=== PATIENT | female | born 1945 | race Caucasian/White ===

== ENCOUNTER → 2016-08-13 | Outpatient (CLI) | payer OTHER ==
[~2016-08-13] MED LIST: ALBUAER2 INH; APR25 PO; ASPI81TA28 PO; ATOR-22 PO; B-CO1CAP17 PO; B-COCAP20 PO; CALC667C4 PO; CARV25TA2 PO; CHOL1CAP95 PO; CITA40TA12 PO; CRG125 PO; CRG25 PO; FERR1TAB23 PO; GABA-112 PO; INSU3INJ3 SC; LACT10SO61 PO; LCTX PO; LEVO100T7 PO; LVMIPEN SC; MAGN1CAP2 PO; MELA1TAB49 PO; MTR400 PO; NTRSLP4 SL; PANT40TA PO; PHS667 PO; PLN5 PO; PRT40 PO; SYN100 PO
[2016-08-13 13:33] LABS: MEAN CELL VOLUME 99.5 fL (80-100); MEAN CORPUSCULAR HGB CONC 32.2 g/dl (32-36); MEAN PLATELET VOLUME 10.1 fL (7.4-10.4); PLATELET COUNT 189 K/uL (130-400); RED BLOOD COUNT 3.72 M/uL (4.2-5.4); WHITE BLOOD COUNT 8.08 K/uL (4.8-10.8)
[2016-08-13 13:52] LABS: BLOOD UREA NITROGEN 17 mg/dl (7-18); BUN/CREATININE RATIO 7.7 (10-20); CALCIUM 7.9 mg/dl (8.5-10.1); CARBON DIOXIDE 36 mmol/L (21-32); CHLORIDE 96 mmol/L (98-107); GLUCOSE 129 mg/dl (70-99); POTASSIUM 3.3 mmol/L (3.5-5.1); SODIUM 138 mmol/L (136-145)
[2016-08-13 14:04] LABS: ALB/GLOB RATIO 0.8 (0.9-2); ALKALINE PHOSPHATASE 77 U/L (45-117); ALT/SGPT 14 U/L (12-78); AST/SGOT 14 U/L (15-37); CHOLESTEROL 120 mg/dl (0-200); CHOLESTEROL/HDL RATIO 2.9; HDL CHOLESTEROL 42 mg/dl; LDL CHOLESTEROL CALCULATED 18 mg/dl; TRIGLYCERIDES 301 mg/dl (0-150); VERY LOW DENSITY LIPOPROT CALC 60 mg/dl
[2016-08-13 14:17] LABS: ESTIMATED AVERAGE GLUCOSE 134 mg/dl; HA1C FLAG Normal (Normal)
== END | disposition home or self-care (01) ==
LOC: C.LABPVFM 10:23
PROVIDERS: ATTEND Family Medicine
DX: E11.9 Type 2 diabetes mellitus without complications (principal); I10 Essential (primary) hypertension; E03.9 Hypothyroidism, unspecified; E83.42 Hypomagnesemia

== ENCOUNTER 2016-12-03 11:28 | Emergency (ER) | payer OTHER ==
[~2016-12-03] VITALS: Ht 157.5 cm; Wt 98.0 kg
[~2016-12-03 11:28] MED LIST changes: -B-CO1CAP17 PO; -CALC667C4 PO; -CARV25TA2 PO; -CRG125 PO; -GABA-112 PO; -INSU3INJ3 SC; -LACT10SO61 PO; -LEVO100T7 PO; -MTR400 PO; -PANT40TA PO
[2016-12-03 11:29] VITALS: TEMP 36.6; Ht 157.5 cm; Wt 98.0 kg
[2016-12-03] MEDS ORDERED: INSU3INJ3 SC (12:00)
--- NOTE | 2016-12-03 12:29 | DIAGNOSTIC IMAGING REPORT ---
RIGHT KNEE 1 OR 2 VIEWS ROUTINE CLINICAL HISTORY: 71 years-old Female presenting with fall/right knee pain. TECHNIQUE: Frontal and crosstable lateral views of the right knee were obtained. COMPARISON: 11/26/2011. FINDINGS: Subtle degenerative changes of the medial and lateral compartments with minimal osteophytosis. Chondrocalcinosis of the menisci, which has progressed since the prior exam and can be seen in the setting of osteoarthritis or pyrophosphate arthropathy among other etiologies. The patellar compartment does not demonstrate significant degenerative change. Prepatellar skin thickening noted, likely superficial edema. A small knee joint effusion may be present. No acute fracture, malalignment, or radiopaque foreign body. IMPRESSION: 1. No acute osseous injury of the right knee. 2. Subtle degenerative changes as above. Electronically signed by: Omar Anaya 12/03/2016 12:28 PM Dictated Date/Time: 12/03/2016 12:22 PM
--- NOTE | 2016-12-03 12:40 | DIAGNOSTIC IMAGING REPORT ---
MAXILLOFACIAL CT CT DOSE: 783.27 mGy.cm HISTORY: Trauma fall/facial injury TECHNIQUE: Multiaxial CT images of the maxillofacial region were performed and reformatted in the coronal plane without the use of contrast. COMPARISON: None. FINDINGS: The visualized cervical spine, skull base, pterygoid plates, nasal bones, lamina papyracea, orbital floors, mandible, and zygomatic arches are intact. No fractures. The orbits are unremarkable. Mild right orbital soft tissue edema IMPRESSION: No fractures within the maxillofacial region. Mild right periorbital soft tissue edema. Electronically signed by: Eder Moss M.D. 12/03/2016 12:38 PM Dictated Date/Time: 12/03/2016 12:35 PM
--- NOTE | 2016-12-03 12:47 | EMERGENCY ROOM VISIT NOTE ---
History First contact with patient: 11:38 Chief Complaint: FALL Stated Complaint: INJURIES FROM FALL History of Present Illness The patient is a 71 year old female who presents to the Emergency Room with complaints of falling. The patient states that she was finished with her dialysis when her p.m. leg got caught in the wheelchair and she fell forward striking her right knee on the ground. She also states she tried to catch herself with her hands but her glasses hit the floor. They did not break. She has a small cut underneath her right eye. The patient also states that her vision on her right eye is a little fuzzy. She denies any headache or loss of consciousness. The patient denies any dizziness prior to the fall. The patient states she was able to bear weight on her right leg. The patient does admit that she has fallen several times and had landed on both her knees in the past. Review of Systems 10 system review was performed and was negative unless stated otherwise history of present illness. Past Medical/Surgical History Medical Problems: (1) Abdominal pain (2) Anemia (3) ARF (acute renal failure) (4) Arthritis (5) Cellulitis (6) Chest pain (7) Chronic kidney disease (8) COPD (chronic obstructive pulmonary disease) (9) Depression (10) Diabetes mellitus (11) Elevated troponin (12) Elevated troponin I level (13) End stage renal disease (14) Essential hypertension (15) Gastroesophageal reflux disease (16) History of thrombophlebitis (17) Hypothyroidism (18) Kidney disease (19) Nausea and vomiting (20) Obesity (21) Secondary hyperparathyroidism (of renal origin) (22) Streptococcal sepsis Surgical Problems: (1) H/O: hysterectomy Family History Diabetes mellitus Heart disease Hypertension Kidney disease Kidney stones Social History Smoking Status: Never Smoker Alcohol Use: none Marital Status: Housing Status: lives with family Occupation Status: retired Current/Historical Medications Scheduled Aspirin (Aspirin Ec), 81 MG PO QAM Atorvastatin (Lipitor), 20 MG PO HS B-Complex W/ C & Folic Acid (Renal), 1 CAP PO QAM Calcium Acetate (Phoslo 667 Mg), 667 MG PO TIDM Carvedilol (Carvedilol), 25 MG PO BID Citalopram Hydrobromide (Celexa), 40 MG PO HS Felodipine (Felodipine ER), 5 MG PO TID Hydralazine Hcl (Apresoline), 25 MG PO TID Insulin Detemir (Levemir Flextouch), 15 UNITS SC Q12 Levothyroxine Sodium (Synthroid), 100 MCG PO HS Magnesium Oxide (Mg Supplement (Magnesium), 400 MG PO TID Pantoprazole (Pantoprazole Sodium), 40 MG PO QAM Allergies Coded Allergies: Lisinopril (Verified Adverse Reaction, Intermediate, cough, 12/03/16) Physical Exam Vital Signs Date Time Temp Pulse Resp B/P (MAP) Pulse Ox O2 Delivery O2 Flow Rate FiO2 12/03/16 11:29 36.6 65 16 152/81 96 Physical Exam GENERAL: 71-year-old female appears in no acute distress. MENTAL Status: Alert and oriented 3. HEAD: Atraumatic, nontender to palpation throughout. EYES: PERRLA. EOMs intact. FACE: There is a superficial cut underneath her right eye. There is some infraorbital ecchymosis noted bilaterally. Mild tenderness palpation over the right zygomatic arch otherwise face is nontender. NECK: Supple, no lymphadenopathy noted. LUNGS: Clear auscultation without wheezes rales or rhonchi. CARDIAC: Regular rate and rhythm without murmur. Pulses is full and equal throughout. BILATERAL HAND: Nontender to palpation. Full range of motion of all fingers without difficulty. RIGHT KNEE: Large hematoma noted over the patella. Limited range of motion secondary to swelling. No ligament instability noted. Medical Decision & Procedures ER Provider Diagnostic Interpretation: MAXILLOFACIAL CT CT DOSE: 783.27 mGy.cm HISTORY: Trauma fall/facial injury TECHNIQUE: Multiaxial CT images of the maxillofacial region were performed and reformatted in the coronal plane without the use of contrast. COMPARISON: None. FINDINGS: The visualized cervical spine, skull base, pterygoid plates, nasal bones, lamina papyracea, orbital floors, mandible, and zygomatic arches are intact. No fractures. The orbits are unremarkable. Mild right orbital soft tissue edema IMPRESSION: No fractures within the maxillofacial region. Mild right periorbital soft tissue edema. Electronically signed by: Eder Moss M.D. 12/03/2016 12:38 PM RIGHT KNEE 1 OR 2 VIEWS ROUTINE CLINICAL HISTORY: 71 years-old Female presenting with fall/right knee pain. TECHNIQUE: Frontal and crosstable lateral views of the right knee were obtained. COMPARISON: 11/26/2011. FINDINGS: Subtle degenerative changes of the medial and lateral compartments with minimal osteophytosis. Chondrocalcinosis of the menisci, which has progressed since the prior exam and can be seen in the setting of osteoarthritis or pyrophosphate arthropathy among other etiologies. The patellar compartment does not demonstrate significant degenerative change. Prepatellar skin thickening noted, likely superficial edema. A small knee joint effusion may be present. No acute fracture, malalignment, or radiopaque foreign body. IMPRESSION: 1. No acute osseous injury of the right knee. 2. Subtle degenerative changes as above. Electronically signed by: Omar Anaya 12/03/2016 12:28 PM ED Course The patient was evaluated. The patient was offered pain medication but declined. X-ray of the right knee was ordered and interpreted by the radiologist as above without any acute fractures. CT of the facial bones was ordered interpreted by the radiologist as above without any acute fractures. The patient was informed of all findings. An Brandon wrap was placed on the right knee. The patient was independently evaluated by Dr. Pablo who agreed with treatment plan. The patient was discharged home in stable condition. Medical Decision Differential diagnosis include fractures versus contusions. Impression Primary Impression: Facial contusion Additional Impression: Contusion of knee, right Departure Information Dispostion Home / Self-Care Condition GOOD Referrals Pro,Julito Grijalva M.D. (PCP) Forms HOME CARE DOCUMENTATION FORM, IMPORTANT VISIT INFORMATION Patient Instructions [facility] Additional Instructions Ice intermittently to the affected areas over the next 24 hours. Keep knee elevated whenever possible over the next 24-48 hours. Wear Brandon wrap except for bathing for the next 72 hours. Tylenol as needed for pain. If symptoms are not improving in 2-3 days, follow-up with your family doctor. If symptoms worsen in the interim, return to ER. Problem Qualifiers Primary Impression: Facial contusion Encounter type: initial encounter Qualified Codes: S00.83XA - Contusion of other part of head, initial encounter
--- NOTE | 2016-12-03 12:57 | EMERGENCY ROOM VISIT NOTE ---
ED Visit Note First contact with patient: 11:38 I have seen and examined this patient with Ele Moss and generally agree with the treatment plan as discussed. Problem List Medical Problems: (1) ARF (acute renal failure) Status: Resolved (2) Arthritis Status: Chronic (3) Chronic kidney disease Status: Chronic (4) COPD (chronic obstructive pulmonary disease) Status: Chronic (5) Depression Status: Chronic (6) Diabetes mellitus Status: Chronic (7) Essential hypertension Status: Chronic (8) Gastroesophageal reflux disease Status: Chronic (9) History of thrombophlebitis Status: Resolved (10) Hypothyroidism Status: Chronic (11) Kidney disease Status: Chronic Surgical Problems: (1) H/O: hysterectomy Status: Resolved Current/Historical Medications Scheduled Aspirin (Aspirin Ec), 81 MG PO QAM Atorvastatin (Lipitor), 20 MG PO HS B-Complex W/ C & Folic Acid (Renal), 1 CAP PO QAM Calcium Acetate (Phoslo 667 Mg), 667 MG PO TIDM Carvedilol (Carvedilol), 25 MG PO BID Citalopram Hydrobromide (Celexa), 40 MG PO HS Felodipine (Felodipine ER), 5 MG PO TID Hydralazine Hcl (Apresoline), 25 MG PO TID Insulin Detemir (Levemir Flextouch), 15 UNITS SC Q12 Levothyroxine Sodium (Synthroid), 100 MCG PO HS Magnesium Oxide (Mg Supplement (Magnesium), 400 MG PO TID Pantoprazole (Pantoprazole Sodium), 40 MG PO QAM Allergies Coded Allergies: Lisinopril (Verified Adverse Reaction, Intermediate, cough, 12/03/16) Vital Signs Date Time Temp Pulse Resp B/P (MAP) Pulse Ox O2 Delivery O2 Flow Rate FiO2 12/03/16 11:29 36.6 65 16 152/81 96 Departure Information Impression Primary Impression: Facial contusion Additional Impression: Contusion of knee, right Dispostion Home / Self-Care Condition GOOD Referrals Pro,Julito Grijalva M.D. (PCP) Forms HOME CARE DOCUMENTATION FORM, IMPORTANT VISIT INFORMATION Patient Instructions My [facility] Additional Instructions Ice intermittently to the affected areas over the next 24 hours. Keep knee elevated whenever possible over the next 24-48 hours. Wear Brandon wrap except for bathing for the next 72 hours. Tylenol as needed for pain. If symptoms are not improving in 2-3 days, follow-up with your family doctor. If symptoms worsen in the interim, return to ER. Problem Qualifiers
[2016-12-03 13:02] VITALS: BP 148/86; PULSE 84; O2SAT 98
[2017-02-05] MEDS ORDERED: CALC667C4 PO (09:22)
[2017-02-05] MEDS ORDERED: B-CO1CAP17 PO (09:22)
[2017-02-05] MEDS ORDERED: CARV25TA2 PO (09:22)
[2017-02-05] MEDS ORDERED: PANT40TA PO (09:22)
[2017-02-05] MEDS ORDERED: GABA-112 PO (09:24)
[2017-02-05] MEDS ORDERED: LACT10SO61 PO (09:24)
[2017-03-01] MEDS ORDERED: PRT40 PO (12:59)
[2017-03-01] MEDS ORDERED: CRG125 PO (12:59)
[2017-03-01] MEDS ORDERED: MTR400 PO (12:59)
== END 2016-12-03 13:03 | disposition home or self-care (01) ==
LOC: C.EDB 11:29 → C.EDD 13:03
DX: S80.01XA Contusion of right knee, initial encounter (principal); S00.83XA Contusion of other part of head, initial encounter; W19.XXXA Unspecified fall, initial encounter; E11.9 Type 2 diabetes mellitus without complications; I12.0 Hypertensive chronic kidney disease with stage 5 chronic kidney disease or end stage renal disease; N18.6 End stage renal disease; K21.9 Gastro-esophageal reflux disease without esophagitis; E03.9 Hypothyroidism, unspecified; J44.9 Chronic obstructive pulmonary disease, unspecified; F32.9 Major depressive disorder, single episode, unspecified; M19.90 Unspecified osteoarthritis, unspecified site; Z86.19 Personal history of other infectious and parasitic diseases; Z90.710 Acquired absence of both cervix and uterus; Z79.82 Long term (current) use of aspirin; Z79.4 Long term (current) use of insulin; Z79.899 Other long term (current) drug therapy; Z88.8 Allergy status to other drugs, medicaments and biological substances; Z83.3 Family history of diabetes mellitus; Z82.49 Family history of ischemic heart disease and other diseases of the circulatory system; Z84.1 Family history of disorders of kidney and ureter

== ENCOUNTER → 2017-01-25 | Outpatient (CLI) | payer OTHER ==
[~2017-01-25] MED LIST changes: -ALBUAER2 INH; +B-CO1CAP17 PO; +CALC667C4 PO; +CARV25TA2 PO; +CEFD1CAP14 PO; -CHOL1CAP95 PO; +CRG125 PO; -FERR1TAB23 PO; +GABA-112 PO; +INSU3INJ3 SC; +LACT10SO61 PO; -LCTX PO; +LEVO100T7 PO; -LVMIPEN SC; -MELA1TAB49 PO; +MTR400 PO; -NTRSLP4 SL; +OXGN; +PANT40TA PO
--- NOTE | 2017-01-25 18:03 | DIAGNOSTIC IMAGING REPORT ---
FACIAL BONES MIN 3 VIEWS RTN CLINICAL HISTORY: Fall with facial injury COMPARISON STUDY: Facial bone CT December 03, 2016. FINDINGS: No facial bone fracture is identified by radiography. Sinuses appear grossly clear. No calvarial fracture is identified on this exam. IMPRESSION: No facial fracture identified by radiography. Electronically signed by: Cyrus Serna M.D. 01/25/2017 6:02 PM Dictated Date/Time: 01/25/2017 5:59 PM
== END | disposition home or self-care (01) ==
LOC: C.RAD1850 16:37
PROVIDERS: ATTEND Nurse Practitioner Adult Health
DX: S09.93XA Unspecified injury of face, initial encounter (principal); W19.XXXA Unspecified fall, initial encounter

== ENCOUNTER → 2017-02-02 | Outpatient (CLI) | payer OTHER ==
[~2017-02-02] MED LIST changes: +OXYMETAZOLINE HCL 0.05% NA SPR 15 ML BTL ONE
--- NOTE | 2017-02-02 16:52 | DIAGNOSTIC IMAGING REPORT ---
SINUSES-MAXILLOFACIAL W/O HISTORY: 71 years-old Female S09.93XA Facial [id number] Fall acute facial injury status post fall. COMPARISON: Maxillofacial CT 12/03/2016 TECHNIQUE: Multiple axial CT images of the maxillofacial bones and sinuses were obtained without IV contrast. A dose lowering technique was used consistent with the principals of PILAR. FINDINGS: The zygomatic arches, pterygoid plates, maxillary alford, nasal bone, septum and vomer and orbital alford are intact. There is mild rightward bowing of the nasal septum. Moderate left and severe right temporomandibular degenerative changes are present. The imaged mandible appears intact. There is mild ethmoid mucosal thickening. The remaining paranasal sinuses are generally clear. Bilateral sphenoethmoidal, and frontal ethmoidal recesses are patent. Bilateral maxillary ostiomeatal units are patent. The mastoid air cells and middle ear cavities are clear. The imaged intracranial structures demonstrate no acute upper malady. There is mild atrophy. Facial soft tissues are unremarkable. There is evidence of prior bilateral cataract repair. No significant soft tissue swelling or hematoma identified. IMPRESSION: 1. No acute facial bone fracture or dislocation. 2. No significant paranasal sinus disease or ostiomeatal occlusive pattern. The above report was generated using voice recognition software. It may contain grammatical, syntax or spelling errors. Electronically signed by: Odilon Oro M.D. 02/02/2017 4:51 PM Dictated Date/Time: 02/02/2017 4:46 PM
== END | disposition home or self-care (01) ==
LOC: C.CTS 16:08
PROVIDERS: ATTEND Nurse Practitioner Adult Health
DX: S09.93XA Unspecified injury of face, initial encounter (principal); W19.XXXA Unspecified fall, initial encounter

== ENCOUNTER 2017-02-10 05:11 | Day surgery (SDC) | payer OTHER ==
[2017-02-05 09:25] VITALS: BMI 38.0
--- NOTE | 2017-02-05 10:00 | PAT Medication Instructions ---
Service Date Feb 05, 2017. Current Home Medication List Aspirin (Aspirin Ec), 81 MG PO QAM Atorvastatin (Lipitor), 20 MG PO HS Calcium Acetate (Phoslo 667 Mg), 1 CAP PO TID Carvedilol (Coreg), 25 MG PO BID Citalopram Hydrobromide (Celexa), 40 MG PO HS Felodipine (Felodipine ER), 5 MG PO TID Gabapentin (Neurontin), 100 MG PO 3XWEEK Hydralazine Hcl (Apresoline), 25 MG PO TID Insulin Detemir (Levemir Flextouch), 15 UNITS SC Q12 Lactulose (Encephalopathy) (Enulose), 5 ML PO QAM Levothyroxine Sodium (Synthroid), 100 MCG PO HS Magnesium Oxide (Mg Supplement (Magnesium), 400 MG PO QAM Pantoprazole (Protonix), 40 MG PO HS Vitamin B Cmplx/Vitc/Folic Ac (Nephrocaps), 1 CAP PO QAM Medication Instructions For Your Scheduled Surgery - Hold the following medications as of 02/04/17 per surgeon's instructions: Aspirin (Aspirin Ec), 81 MG PO QAM - Hold the following medications the morning of surgery: Calcium Acetate (Phoslo 667 Mg), 1 CAP PO TID Magnesium Oxide (Mg Supplement (Magnesium), 400 MG PO QAM Vitamin B Cmplx/Vitc/Folic Ac (Nephrocaps), 1 CAP PO QAM Lactulose (Encephalopathy) (Enulose), 5 ML PO QAM - Take the following medications the morning of surgery with a sip of water OTHERWISE NOTHING TO EAT OR DRINK AFTER MIDNIGHT: Hydralazine Hcl (Apresoline), 25 MG PO TID Carvedilol (Coreg), 25 MG PO BID Felodipine (Felodipine ER), 5 MG PO TID - For Insulin Dependent Diabetic patients: Test blood sugar A.M. of surgery. - If Blood Sugar is GREATER THAN 150, take HALF of your regular dose of: Insulin Detemir (Levemir Flextouch) - If Blood Sugar is LESS THAn 150, do not take any: Insulin Detemir ( Levemir Flextouch) - Take the following medications as scheduled the night before surgery: Insulin Detemir (Levemir Flextouch), 15 UNITS SC Q12 Pantoprazole (Protonix), 40 MG PO HS Levothyroxine Sodium (Synthroid), 100 MCG PO HS Citalopram Hydrobromide (Celexa), 40 MG PO HS Atorvastatin (Lipitor), 20 MG PO HS Hydralazine Hcl (Apresoline), 25 MG PO TID Carvedilol (Coreg), 25 MG PO BID Felodipine (Felodipine ER), 5 MG PO TID Calcium Acetate (Phoslo 667 Mg), 1 CAP PO TID If you have any questions please call us at [phone] or [phone] or [phone]
[2017-02-05 10:17] LABS: BASO % 0.6 %; BASO ABS # 0.04 K/uL (0-0.2); COMPLETE YES; EOS % 2.7 %; HEMATOCRIT 33.2 % (37-47); IG% 0.3 %; LYMPH % 19.7 %; LYMPH ABS # 1.32 K/uL (1.2-3.4); MEAN CORPUSCULAR HEMOGLOBIN 31.9 pg (25-34); MEAN CORPUSCULAR HGB CONC 31.9 g/dl (32-36); MEAN PLATELET VOLUME 9.5 fL (7.4-10.4); NEUT % 62.7 %; PLATELET COUNT 183 K/uL (130-400); RED BLOOD COUNT 3.32 M/uL (4.2-5.4)
--- NOTE | 2017-02-05 10:31 | DIAGNOSTIC IMAGING REPORT ---
CHEST 2 VIEWS ROUTINE CLINICAL HISTORY: Preoperative evaluation. COMPARISON STUDY: Chest radiograph October 15, 2015. FINDINGS: The lung volumes are normal. No pneumothorax or pleural effusion is present. Linear bibasilar opacities suggest subsegmental atelectasis. There is no consolidation or evidence of pulmonary edema. Cardiomediastinal silhouette is normal. Upper abdominal surgical clips are incidentally noted. IMPRESSION: No acute cardiopulmonary findings. Electronically signed by: Cyrus Serna M.D. 02/05/2017 10:29 AM Dictated Date/Time: 02/05/2017 10:29 AM
[2017-02-05 10:49] LABS: BUN/CREATININE RATIO 8.4 (10-20); CALCIUM 8.7 mg/dl (8.5-10.1); CREATININE 4.6 mg/dl (0.60-1.20); POTASSIUM 4.5 mmol/L (3.5-5.1)
[~2017-02-10] VITALS: Ht 160 cm; Wt 95.8 kg
[~2017-02-10 05:11] MED LIST changes: -B-COCAP20 PO; -CEFD1CAP14 PO; -CRG125 PO; -CRG25 PO; -LEVO100T7 PO; -MTR400 PO; -OXGN; -OXYMETAZOLINE HCL 0.05% NA SPR 15 ML BTL ONE; -PHS667 PO; -PRT40 PO
[2017-02-10 05:42] VITALS: BP 121/46; PULSE 62; TEMP 36.7; O2SAT 94; Ht 160 cm; Wt 95.8 kg
[2017-02-10] MEDS ORDERED: LACTATED RINGER'S 1000ML 1,000 ML IV SCH (06:00)
[2017-02-10] MEDS ORDERED: OXYMETAZOLINE HCL 0.05% NA SPR 15 ML BTL NAE SCH (06:00)
[2017-02-10] MEDS ORDERED: CEFAZOLIN 2000 MG/60 ML D5W IV SCH (06:00)
[2017-02-10 06:11] LABS: BUN/CREATININE RATIO 9.4 (10-20); CALCIUM 8.5 mg/dl (8.5-10.1); CREATININE 4.4 mg/dl (0.60-1.20); POTASSIUM 4.3 mmol/L (3.5-5.1)
--- NOTE | 2017-02-10 06:49 | History & Physical Bridge Note ---
H&P Re-Evaluation Bridge Note: I have examined the patient, reviewed the History & Physical and in the interval since the performance of the History & Physical I have noted the following changes of clinical significance: No changes noted
[2017-02-10] MEDS ORDERED: CEFAZOLIN IV 2,000 MG/60 ML D5W IV ONE (06:51)
[2017-02-10] MEDS ORDERED: FENTANYL CITRATE INJ 50 MCG/1 ML 2 ML VIAL ONE (06:52)
[2017-02-10] MEDS ORDERED: MIDAZOLAM HCL 1 MG/ML 2ML VIAL ONE (06:52)
[2017-02-10] MEDS ORDERED: LIDOCAINE 4% INH SOLN 4 ML BTL ONE (06:53)
[2017-02-10] MEDS ORDERED: LIDOCAINE/EPINEPHRINE 1% 20 ML VIAL ONE (06:53)
[2017-02-10] MEDS ORDERED: KETAMINE HCL INJ 50 MG/ML 10 ML VIAL ONE (06:53)
[2017-02-10] MEDS ORDERED: EpINEphrine INJ 1MG/ML AMP 1 MG/ML AMP ONE (06:59)
[2017-02-10] MEDS ORDERED: EpHEDrine SULFATE INJ 50 MG/ML AMP ONE (08:47)
[2017-02-10] MEDS ORDERED: LIDOCAINE HCL 2% 2 ML VIAL (20MG/ML) ONE (08:47)
[2017-02-10] MEDS ORDERED: ONDANSETRON INJ 2 MG/ML 2 ML VIAL ONE (08:47)
[2017-02-10] MEDS ORDERED: DEXAMETHASONE SOD INJ 4 MG/ML VIAL ONE (08:47)
[2017-02-10] MEDS ORDERED: SUCCINYLCHOLINE 100MG/5ML SYR IV ONE (08:47)
[2017-02-10] MEDS ORDERED: PROPOFOL IV EMULSION 10 MG/ML 20 ML VIAL IV ONE (08:47)
[2017-02-10] MEDS ORDERED: CISATRACURIUM BESYLATE IV SOLN 2 MG/ML 10 ML VIAL ONE (08:47)
--- NOTE | 2017-02-10 09:05 | [facility] Operative Report ---
Operative Report Operative Date Feb 10, 2017. Pre-Operative Diagnosis Nasal Septum Fracture Post-Operative Diagnosis same Procedure(s) Performed Open Repair of Nasal Septal Fracture Surgeon Dr. Navarro Furnace Stock Inspector Surgeon(s) none Estimated Blood Loss 10mL Findings 1. nasal septal cartilage fracture with organized hematoma causing R>L DNS 2. right posterior bony septal deviation Specimens none per surgeon I attest to the content of the Intraoperative Record and any orders documented therein. Any exceptions are noted below.
--- NOTE | 2017-02-10 09:08 | Discharge Instructions ---
Discharge Instructions Date of Service Feb 10, 2017. Admission Reason for Admission: Nasal Fracture, Nasal Congestion Discharge Discharge Diagnosis / Problem: SAME Discharge Goals Goal(s): Therapeutic intervention Activity Recommendations Activity Limitations: as noted below LIGHT ACTIVITY FOR 2 WEEKS; NO DRIVING WHILE ON NORCO . Current Hospital Diet Patient's current hospital diet: Discharge Diet Recommended Diet: Regular Diet Procedures Procedures Performed: Open Repair of Nasal Septal Fracture Pending Studies Studies pending at discharge: no Medical Emergencies . Who to Call and When: Medical Emergencies: If at any time you feel your situation is an emergency, please call 911 immediately. . Non-Emergent Contact Non-Emergency issues call your: Surgeon . . "Provider Documentation" section prepared by Thierno Navarro. . VTE Core Measure Inpt VTE Proph given/why not?: SCD's
[2017-02-10] MEDS ORDERED: OXYMETAZOLINE HCL 0.05% NA SPR 15 ML BTL PRN (09:15)
[2017-02-10] MEDS ORDERED: HYDROCODONE/ACETAMOPHEN 5/325MG TAB PO PRN (09:15)
[2017-02-10] MEDS ORDERED: ONDANSETRON INJ 2 MG/ML 2 ML VIAL IV PRN (09:15)
[2017-02-10] MEDS ORDERED: EpHEDrine SULFATE INJ 50 MG/ML AMP IV PRN (09:45)
[2017-02-10] MEDS ORDERED: ATROPINE SULFATE 0.1 MG/ML 5ML SYR IV PRN (09:45)
--- NOTE | 2017-02-10 09:58 | Anesthesiology Progress Note ---
Anesthesia Post Op Note Date & Time Feb 10, 2017 at 09:58 Vital Signs Pain Intensity: 0 Vital Signs Past 12 Hours Date Time Temp Pulse Resp B/P (MAP) Pulse Ox O2 Delivery O2 Flow Rate FiO2 02/10/17 09:50 55 16 138/70 93 Nasal Cannula 3 02/10/17 09:40 58 16 132/63 93 Non-Rebreather 10 02/10/17 09:30 56 16 137/66 100 Non-Rebreather 10 02/10/17 09:23 36.5 60 16 143/54 99 Non-Rebreather 10 02/10/17 05:42 36.7 62 18 121/46 (71) 94 Room Air Notes Mental Status: alert / awake / arousable, participated in evaluation Pt Amnestic to Procedure: Yes Nausea / Vomiting: adequately controlled Pain: adequately controlled Airway Patency, RR, SpO2: stable & adequate BP & HR: stable & adequate Hydration State: stable & adequate Anesthetic Complications: no major complications apparent
[2017-02-10 10:10] VITALS: BP 141/65; PULSE 56; TEMP 36.7; O2SAT 93
[2017-02-10] MEDS ORDERED: GLYCOPYRROLATE INJ 0.2 MG/ML VIAL ONE (10:13)
[2017-02-10] MEDS ORDERED: NEOSTIGMINE METHYLSULFATE 5 MG/5 ML SYR ONE (10:13)
[2017-02-10 10:40] VITALS: BP 152/67; PULSE 55; O2SAT 94
--- NOTE | 2017-02-10 10:44 | OPERATIVE REPORT ---
DATE OF OPERATION: 02/10/2017 PREOPERATIVE DIAGNOSES: 1. Nasal septal fracture. 2. Right greater than left septal deviation. POSTOPERATIVE DIAGNOSES: Same. PROCEDURE: Open repair of septal fracture. SURGEON: Dr. Thierno Navarro. ANESTHESIA: General endotracheal. ESTIMATED BLOOD LOSS: 10 mL. FINDINGS: 1. Anterior cartilaginous nasal septal fracture with deviation of the cartilage to the left and with the large organized almost calcified clot, causing nasal airway obstruction on the right hand side anteriorly. 2. Bony septal deviation posteriorly on the right hand side. SPECIMENS: None. COMPLICATIONS: None. INDICATIONS FOR THE PROCEDURE: The patient is a very pleasant 71-year-old female, who recently has had several falls. She had a fall in November of [address] scan of the maxillofacial area at that time, which revealed a mild bony septal deviation to the right hand side, which was likely preexisting. She then had a fall again in January and a repeat CT scan showed the same septal deviation posteriorly, but also anterior septal thickening with bilateral right greater than left anterior nasal airway obstruction. In the office, I placed a needle in her septal cavity and was not able to obtain any blood or pus. It felt like she fractured her septum and I thought that she might have fractured her septum in such a way that it was now transversely oriented rather than longitudinally oriented. Either way, she had right greater than left nasal airway obstruction and presents for the above-mentioned procedure on an outpatient elective basis. DESCRIPTION OF PROCEDURE: After informed consent had been obtained from the patient, the patient was wheeled to the operating room and placed on the operating table in the supine position. Monitors were placed. After induction of general endotracheal anesthesia, the patient was prepped in the usual fashion for nasal surgery. A total of 9 mL of 1% lidocaine with 1:100,000 epinephrine was used to inject the nasal septum bilaterally, thereby performing hydrodissection of the mucoperichondrial mucoperiosteal flaps. Lidocaine and epinephrine pledgets were then placed in the bilateral nasal cavities and pressure applied. After allowing adequate time for anesthesia and decongestion, the pledgets were removed. A #15 scalpel was used to make a left hemitransfixion incision, through which the left-sided mucoperichondrial mucoperiosteal flap was elevated. It appeared that there was an anterior septal fracture approximately 1 cm posterior to the caudal end of the septum and there was a large organized clot within the right septal cavity that appeared to be hard, gelatinous, and starting to calcify. Care was taken to evacuate all of this organized clot, which required both suction as well as bayonet forceps. Dissection was carried down to the bony cartilaginous junction and the bony cartilaginous junction was carefully disarticulated. Deviated portion of the bone posteriorly on the right hand side was removed using Messi-Tang forceps as well as Ricardo forceps. There also was some anterior septal deviation that was removed using a V-shaped osteotome and Ricardo forceps. The fractured cartilage was left intact, but freed from its mucoperichondrium and periosteal attachments and placed into a precise pocket in the midline. The left hemitransfixion incision was then closed with several interrupted 4-0 chromic sutures. A 4-0 plain gut suture on the Ian needle was then used to perform a quilting stitch of the mucoperichondrial and mucoperiosteal flaps bilaterally to help prevent hematoma. There still was a slight deviation of the cartilage to the left hand side and this was reapproximated in the midline using half mattress 2-0 chromic columelloplasty sutures. After this, the septum was found to be midline. The nasal airways were widely patent. The nasal cavities and nasopharynx were suctioned. An orogastric tube was placed and the stomach was suctioned free of air and stomach contents. This marked the end of the case. The patient tolerated the procedure well. There were no apparent complications. The patient was extubated and transferred to recovery room in stable condition. I attest to the content of the Intraoperative Record and any orders documented therein. Any exception s are noted below.
[2017-02-10 11:10] VITALS: BP 148/62; PULSE 58; TEMP 36.6; O2SAT 93
[2017-03-01] MEDS ORDERED: CRG125 PO (12:59)
[2017-03-01] MEDS ORDERED: MTR400 PO (12:59)
[2017-03-01] MEDS ORDERED: PRT40 PO (12:59)
== END 2017-02-10 11:20 | disposition home or self-care (01) ==
LOC: C.ACU 05:11
DX: S02.2XXA Fracture of nasal bones, initial encounter for closed fracture (principal); W19.XXXA Unspecified fall, initial encounter; E66.9 Obesity, unspecified; N18.4 Chronic kidney disease, stage 4 (severe); E78.5 Hyperlipidemia, unspecified; E03.9 Hypothyroidism, unspecified; G25.81 Restless legs syndrome; M19.90 Unspecified osteoarthritis, unspecified site; E11.319 Type 2 diabetes mellitus with unspecified diabetic retinopathy without macular edema; Z87.440 Personal history of urinary (tract) infections; Z99.2 Dependence on renal dialysis; Z83.3 Family history of diabetes mellitus; Z82.49 Family history of ischemic heart disease and other diseases of the circulatory system

== ENCOUNTER → 2017-02-23 | Outpatient (CLI) | payer OTHER ==
[~2017-02-23] MED LIST changes: +CEFD1CAP14 PO; +CRG125 PO; +LEVO100T7 PO; +MTR400 PO; +OXGN; +PRT40 PO
[2017-02-23 17:47] LABS: CHOLESTEROL/HDL RATIO 4.2; THYROID STIMULATING HORMONE 2.39 uIu/ml (0.300-4.500)
[2017-02-24 06:20] LABS: ESTIMATED AVERAGE GLUCOSE 143 mg/dl; HA1C FLAG Normal (Normal)
== END | disposition home or self-care (01) ==
LOC: C.LAB1850 15:26
PROVIDERS: ATTEND Internal Medicine
DX: E11.9 Type 2 diabetes mellitus without complications (principal); E03.9 Hypothyroidism, unspecified

== ENCOUNTER 2017-02-25 15:31 | Inpatient (IN) | payer OTHER ==
[~2017-02-25] VITALS: Ht 157.5 cm; Wt 93.2 kg
[~2017-02-25 15:31] MED LIST changes: -ASPI81TA28 PO; -CEFD1CAP14 PO; -CRG125 PO; -LEVO100T7 PO; -MTR400 PO; -OXGN; -PRT40 PO
[2017-02-25] MEDS ORDERED: ASPIRIN 81 MG CHEW PO STA (15:55)
[2017-02-25] MEDS ORDERED: NITROGLYCERIN 0.4 MG SL PER TAB CHARGE SL PRN ×2 (16:00→18:00)
[2017-02-25] MEDS ORDERED: LEVO100T7 PO (16:04)
[2017-02-25] MEDS ORDERED: ASPI81TA28 PO (16:09)
[2017-02-25 16:10] LABS: BASO % 0.2 %; BASO ABS # 0.03 K/uL (0-0.2); COMPLETE YES; EOS % 0.8 %; IG% 0.2 %; LYMPH % 6.6 %; LYMPH ABS # 1.03 K/uL (1.2-3.4); MEAN CELL VOLUME 100.8 fL (80-100); MEAN CORPUSCULAR HEMOGLOBIN 31.9 pg (25-34); MEAN CORPUSCULAR HGB CONC 31.7 g/dl (32-36); MEAN PLATELET VOLUME 9.6 fL (7.4-10.4); MONO % 9.4 %; NEUT % 82.8 %; PLATELET COUNT 168 K/uL (130-400); RED BLOOD COUNT 3.57 M/uL (4.2-5.4); WHITE BLOOD COUNT 15.65 K/uL (4.8-10.8)
[2017-02-25] MEDS ORDERED: OPTIRAY 320 IV PRN (16:15)
[2017-02-25 16:18] LABS: PROTHROMBIN TIME (PATIENT) 11.1 SECONDS (9.0-12.0)
[2017-02-25 16:28] LABS: BUN/CREATININE RATIO 6.9 (10-20); CALCIUM 8.8 mg/dl (8.5-10.1); CREATININE 2.8 mg/dl (0.60-1.20); POTASSIUM 3.6 mmol/L (3.5-5.1)
[2017-02-25 16:37] LABS: ALB/GLOB RATIO 0.8 (0.9-2)
--- NOTE | 2017-02-25 16:53 | DIAGNOSTIC IMAGING REPORT ---
(CHEST FOR PE) ANGIO WITH CT DOSE: 526.44 mGycm HISTORY: Chest pain dyspnea TECHNIQUE: Multiaxial CT images of the chest were performed following the intravenous administration of contrast to evaluate the pulmonary arteries. Maximal intensity projection images were also obtained. A dose lowering technique was utilized adhering to the principles of ALARA. COMPARISON STUDY: None. FINDINGS: Mild atherosclerotic change thoracic aorta. No evidence for aneurysm or dissection. The pulmonary vasculature enhances appropriately. There are no significant filling defects. No significant mediastinal or hilar adenopathy. Mild nonspecific interstitial change throughout both hemithoraces. Mild cardiomegaly. IMPRESSION: No evidence for pulmonary embolus. Mild pulmonary interstitial change bilaterally. Mild cardiomegaly. The above report was generated using voice recognition software. It may contain grammatical, syntax or spelling errors. Electronically signed by: Eder Moss M.D. 02/25/2017 4:52 PM Dictated Date/Time: 02/25/2017 4:49 PM
--- NOTE | 2017-02-25 16:54 | DIAGNOSTIC IMAGING REPORT ---
CHEST ONE VIEW PORTABLE CLINICAL HISTORY: EVALUATE RESPIRATORY DISTRESS.DYSPNEA dyspnea COMPARISON STUDY: 02/05/2017 FINDINGS: The bones soft tissues and hemidiaphragms are normal. The cardiomediastinal silhouette is normal. The lungs are clear. The pulmonary vasculature is normal. IMPRESSION: Negative chest. The above report was generated using voice recognition software. It may contain grammatical, syntax or spelling errors. Electronically signed by: Eder Moss M.D. 02/25/2017 4:53 PM Dictated Date/Time: 02/25/2017 4:52 PM
[2017-02-25] MEDS ORDERED: NITROGLYCERIN OINT 2% 1GM PACKET EXT SCH (17:15)
[2017-02-25 17:21] VITALS: O2SAT 98; Ht 157.5 cm; Wt 93.2 kg
[2017-02-25] MEDS ORDERED: NITROGLYCERIN OINT 2% 1GM PACKET ONE (17:25)
[2017-02-25] MEDS ORDERED: GLUCAGON FOR INJ 1 MG VIAL SQ PRN (18:00)
[2017-02-25] MEDS ORDERED: GLUCOSE 40% GEL 15 GM TUBE PO PRN (18:00)
[2017-02-25] MEDS: CALCIUM ACETATE 667MG GELCAP PO SCH (18:00)
[2017-02-25] MEDS ORDERED: ONDANSETRON INJ 2 MG/ML 2 ML VIAL IV PRN (18:00)
[2017-02-25] MEDS ORDERED: GLUCOSE 10 TABS/TUBE PO PRN (18:00)
[2017-02-25] MEDS: NITROGLYCERIN OINT 2% 1GM PACKET EXT SCH (18:00)
[2017-02-25] MEDS ORDERED: DEXTROSE 50% 50 ML SYR IV PRN (18:00)
[2017-02-25 18:45] VITALS: BP 147/71; PULSE 78; TEMP 36.7; O2SAT 90
--- NOTE | 2017-02-25 19:39 | History and Physical ---
History & Physical Date & Time of Service: Feb 25, 2017 at 19:39 Chief Complaint: Elevated Troponin I Level, Epigastric Abd Pain Primary Care Physician: Julito Burt M.D. History of Present Illness Source: patient, spouse The patient is a 71-year-old female who presents emergency department with persistent epigastric chest pain that began about 3 hours prior to arrival. She has end-stage renal disease on hemodialysis on Wednesday, and Wednesday. She reports having a normal dialysis today, then ate a salad for lunch around noon, and approximately one hour later began experiencing central chest pain and heaviness. She's had no previous occurrences of pain like this, and the pain is worse with taking a deep breath. The pain radiates to her left shoulder and towards her back intermittently. She does have a runny nose, secondary to nasal surgery approximately 1 month ago. Past Medical/Surgical History Medical Problems: (1) ARF (acute renal failure) Status: Resolved (2) Arthritis Status: Chronic (3) Chronic kidney disease Status: Chronic (4) COPD (chronic obstructive pulmonary disease) Status: Chronic (5) Depression Status: Chronic (6) Diabetes mellitus Status: Chronic (7) Essential hypertension Status: Chronic (8) Gastroesophageal reflux disease Status: Chronic (9) History of thrombophlebitis Status: Resolved (10) Hypothyroidism Status: Chronic (11) Kidney disease Status: Chronic Surgical Problems: (1) H/O: hysterectomy Status: Resolved Family History Diabetes mellitus Heart disease Hypertension Kidney disease Kidney stones Social History Smoking Status: Never Smoker Smokeless Tobacco Use: No Alcohol Use: none Drug Use: none Marital Status: Housing status: lives with family Occupational Status: retired Immunizations History of Influenza Vaccine: Yes Influenza Vaccine Date: Apr 27, 2005 History of Tetanus Vaccine?: Yes Tetanus Immunization Date: Nov 25, 2000 History of Pneumococcal: Yes Pneumococcal Date: Nov 25, 2002 History of Hepatitis B Vaccine: No Multi-Drug Resistant Organisms History of MDRO: No Allergies Coded Allergies: Lisinopril (Verified Adverse Reaction, Intermediate, cough, 02/25/17) Home Medications Scheduled Aspirin (Aspirin Ec), 81 MG PO DAILY Atorvastatin (Lipitor), 20 MG PO HS Calcium Acetate (Phoslo 667 Mg), 1 CAP PO TID Carvedilol (Coreg), 25 MG PO BID Citalopram Hydrobromide (Celexa), 40 MG PO HS Felodipine (Felodipine ER), 5 MG PO TID Gabapentin (Neurontin), 100 MG PO 3XWEEK Hydralazine Hcl (Apresoline), 25 MG PO TID Insulin Detemir (Levemir Flextouch), 15 UNITS SC Q12 Lactulose (Encephalopathy) (Enulose), 15 ML PO QAM Levothyroxine Sodium (Levothyroxine Sodium), 100 MCG PO DAILY Magnesium Oxide (Mg Supplement (Magnesium), 400 MG PO QAM Pantoprazole (Protonix), 40 MG PO HS Vitamin B Cmplx/Vitc/Folic Ac (Nephrocaps), 1 CAP PO QAM Review of Systems The patient denies palpitations, cough, lower extremity swelling, vision change , hearing change, sore throat, fevers, chills, sweats, weight change, fatigue, nausea, vomiting, diarrhea or constipation, pelvic pain, blood in urine or stool, dysuria, urinary frequency or urgency, lightheadedness , dizziness, headache, memory loss, rash, abnormal bruising or bleeding, imbalance, focal or generalized weakness, numbness or tingling in legs, generalized arthralgias or myalgias, neck pain, or night sweats. The review of systems is otherwise negative other than for that already noted above, and at least 10 systems have been reviewed. Physical Exam Vital Signs Date Time Temp Pulse Resp B/P (MAP) Pulse Ox O2 Delivery O2 Flow Rate FiO2 02/25/17 18:45 36.7 78 22 147/71 (96) 90 Room Air 02/25/17 17:29 68 18 146/73 99 Nasal Cannula 2.0 02/25/17 17:21 98 Nasal Cannula 2.0 02/25/17 17:00 68 18 174/97 98 Nasal Cannula 2.0 02/25/17 16:52 69 20 181/73 97 Nasal Cannula 2.0 02/25/17 16:18 71 02/25/17 16:11 74 18 111/47 97 02/25/17 16:00 98 Nasal Cannula 2.0 02/25/17 16:00 98 Nasal Cannula 2.0 02/25/17 15:37 37.1 75 20 155/97 86 Room Air The patient is awake, well-developed and adequately nourished, alert and oriented 3, normocephalic and atraumatic, lying in bed and in no acute distress unless she takes a deep breath. HEENT--PERRL, EOMI, mucous membranes and oropharynx dry. Neck--supple, no JVD or bruits, thyroid normal, trachea midline, no adenopathy. Heart--normal S1 and S2, no extra beats, no murmurs, rubs or gallops. Lungs--clear bilaterally with good air movement, no respiratory distress, no accessory muscle use. Abdomen--normal bowel sounds and soft, tender epigastrium. Nondistended. no hernias or masses, no organomegaly. Extremities--no cyanosis, clubbing or edema. There are good distal pulses b/l. Dermatologic--normal skin turgor, normal color, warm and dry, no abnormal lymph nodes, no rash. Neurologic--cranial nerves II through XII grossly intact. Rheumatologic--normal range of motion, nontender, muscles and joints. Psychiatric--normal affect. Diagnostics Laboratory Results Results Past 24 Hours Test 02/25/17 15:35 Range/Units White Blood Count 15.65 4.8-10.8 K/uL Red Blood Count 3.57 4.2-5.4 M/uL Hemoglobin 11.4 12.0-16.0 g/dL Hematocrit 36.0 37-47 % Mean Corpuscular Volume 100.8 80-100 fL Mean Corpuscular Hemoglobin 31.9 25-34 pg Mean Corpuscular Hemoglobin Concent 31.7 32-36 g/dl Platelet Count 168 130-400 K/uL Mean Platelet Volume 9.6 7.4-10.4 fL Neutrophils (%) (Auto) 82.8 % Lymphocytes (%) (Auto) 6.6 % Monocytes (%) (Auto) 9.4 % Eosinophils (%) (Auto) 0.8 % Basophils (%) (Auto) 0.2 % Neutrophils # (Auto) 12.97 1.4-6.5 K/uL Lymphocytes # (Auto) 1.03 1.2-3.4 K/uL Monocytes # (Auto) 1.47 0.11-0.59 K/uL Eosinophils # (Auto) 0.12 0-0.5 K/uL Basophils # (Auto) 0.03 0-0.2 K/uL RDW Standard Deviation 53.9 36.4-46.3 fL RDW Coefficient of Variation 14.8 11.5-14.5 % Immature Granulocyte % (Auto) 0.2 % Immature Granulocyte # (Auto) 0.03 0.00-0.02 K/uL Prothrombin Time 11.1 9.0-12.0 SECONDS Prothromb Time International Ratio 1.0 0.9-1.1 Activated Partial Thromboplast Time 26.3 21.0-31.0 SECONDS Partial Thromboplastin Ratio 1.0 Sodium Level 136 136-145 mmol/L Potassium Level 3.6 3.5-5.1 mmol/L Chloride Level 95 98-107 mmol/L Carbon Dioxide Level 32 21-32 mmol/L Anion Gap 9.0 3-11 mmol/L Blood Urea Nitrogen 19 7-18 mg/dl Creatinine 2.80 0.60-1.20 mg/dl Est Creatinine Clear Calc Drug Dose 19.9 ml/min Estimated GFR () 18.9 Estimated GFR (Non- 16.3 BUN/Creatinine Ratio 6.9 10-20 Random Glucose 187 70-99 mg/dl Calcium Level 8.8 8.5-10.1 mg/dl Total Bilirubin 0.3 0.2-1 mg/dl Aspartate Amino Transf (AST/SGOT) 24 15-37 U/L Alanine Aminotransferase (ALT/SGPT) 14 12-78 U/L Alkaline Phosphatase 103 45-117 U/L Troponin I 0.096 0-0.045 ng/ml Pro-B-Type Natriuretic Peptide 2308 0-900 pg/ml Total Protein 8.0 6.4-8.2 gm/dl Albumin 3.6 3.4-5.0 gm/dl Globulin 4.4 2.5-4.0 gm/dl Albumin/Globulin Ratio 0.8 0.9-2 Microbiology Results 02/25/17 MRSA DNA Surveillance Screen, Received Pending Diagnostic Radiology Patient Name: LITO MOHR Unit Number: [id number] Dictated: 02/25/171648 Transcribed: 02/25/171648 MS Printed Date/Time: [~ rep prt dt]/[~ rep prt tm] [~ rep ct labl] - [~ rep ct ivnm] [facility] [place] [address] Dictated: 02/25/171648 Transcribed: 02/25/17 164 MS Printed Date/Time: [~ rep prt dt]/[~ rep prt tm] [~ rep ct labl] - [~ rep ct ivnm] (CHEST FOR PE) ANGIO WITH CT DOSE: 526.44 mGycm HISTORY: Chest pain dyspnea TECHNIQUE: Multiaxial CT images of the chest were performed following the intravenous administration of contrast to evaluate the pulmonary arteries. Maximal intensity projection images were also obtained. A dose lowering technique was utilized adhering to the principles of ALARA. COMPARISON STUDY: None. FINDINGS: Mild atherosclerotic change thoracic aorta. No evidence for aneurysm or dissection. The pulmonary vasculature enhances appropriately. There are no significant filling defects. No significant mediastinal or hilar adenopathy. Mild nonspecific interstitial change throughout both hemithoraces. Mild cardiomegaly. IMPRESSION: No evidence for pulmonary embolus. Mild pulmonary interstitial change bilaterally. Mild cardiomegaly. The above report was generated using voice recognition software. It may contain grammatical, syntax or spelling errors. Electronically signed by: Eder Moss M.D. 02/25/2017 4:52 PM Dictated Date/Time: 02/25/2017 4:49 PM The status of this report is Signed. Draft = Not yet reviewed or approved by Radiologist. Signed = Reviewed and approved by Radiologist. <AttendingPhy></AttendingPhy> <FamilyPhy>Julito Burt M.D.</FamilyPhy> < PrimaryPhy>Julito Burt M.D.</PrimaryPhy> <UnitNumber>[id number]</UnitNumber > <VisitNumber>[id number]</VisitNumber> <PatientName>LITO MOHR</ PatientName> <DateOfBirth>1945</DateOfBirth> <Location>[facility]</Location> < ServiceDate>02/25/17</ServiceDate> <MNE>ESINDI</MNE> <OrderingPhy>Carlos Singh DO</OrderingPhy> <OrderingPhyMNE>f rep ord dr alfredo</OrderingPhyMNE> < DictatingPhyMNE>f rep dict dr alfredo</DictatingPhyMNE> <CCListMNE>f rep ct mne</ CCListMNE> <AdmittingPhyMNE>f pt admit dr alfredo</AdmittingPhyMNE> <AttendingPhyMNE >f pt attend dr alfredo</AttendingPhyMNE> <ConsultingPhyMNE>f pt consult dr alfredo</ConsultingPhyMNE> <FamilyPhyMNE>f pt fam dr alfredo</FamilyPhyMNE> <OtherPhyMNE>f pt other dr alfredo</OtherPhyMNE> < PrimaryPhyMNE>f pt prim care dr alfredo</PrimaryPhyMNE> <ReferringPhyMNE>f pt referring dr alfredo</ReferringPhyMNE> Patient Name: LITO MOHR Unit Number: [id number] Dictated: 02/25/171651 Transcribed: 02/25/171651 MS Printed Date/Time: [~ rep prt dt]/[~ rep prt tm] [~ rep ct labl] - [~ rep ct ivnm] [facility] [place] [address] Dictated: 02/25/171651 Transcribed: 02/25/171651 MS Printed Date/Time: [~ rep prt dt]/[~ rep prt tm] [~ rep ct labl] - [~ rep ct ivnm] [~ rep ct add3]] CHEST ONE VIEW PORTABLE CLINICAL HISTORY: EVALUATE RESPIRATORY DISTRESS.DYSPNEA dyspnea COMPARISON STUDY: 02/05/2017 FINDINGS: The bones soft tissues and hemidiaphragms are normal. The cardiomediastinal silhouette is normal. The lungs are clear. The pulmonary vasculature is normal. IMPRESSION: Negative chest. The above report was generated using voice recognition software. It may contain grammatical, syntax or spelling errors. Electronically signed by: Eder Moss M.D. 02/25/2017 4:53 PM Dictated Date/Time: 02/25/2017 4:52 PM The status of this report is Signed. Draft = Not yet reviewed or approved by Radiologist. Signed = Reviewed and approved by Radiologist. <AttendingPhy></AttendingPhy> <FamilyPhy>Julito Burt M.D.</FamilyPhy> < PrimaryPhy>Julito Burt M.D.</PrimaryPhy> <UnitNumber>[id number]</UnitNumber > <VisitNumber>[id number]</VisitNumber> <PatientName>LITO MOHR</ PatientName> <DateOfBirth>1945</DateOfBirth> <Location>[facility]</Location> < ServiceDate>02/25/17</ServiceDate> <MNE>ESINDI</MNE> <OrderingPhy>Carlos Singh DO</OrderingPhy> <OrderingPhyMNE>f rep ord dr alfredo</OrderingPhyMNE> < DictatingPhyMNE>f rep dict dr alfredo</DictatingPhyMNE> <CCListMNE>f rep ct sayda</ CCListMNE> <AdmittingPhyMNE>f pt admit dr alfredo</AdmittingPhyMNE> <AttendingPhyMNE >f pt attend dr alfredo</AttendingPhyMNE> <ConsultingPhyMNE>f pt consult dr alfredo</ConsultingPhyMNE> <FamilyPhyMNE>f pt fam dr alfredo</FamilyPhyMNE> <OtherPhyMNE>f pt other dr alfredo</OtherPhyMNE> < PrimaryPhyMNE>f pt prim care dr alfredo</PrimaryPhyMNE> <ReferringPhyMNE>f pt referring dr alfredo</ReferringPhyMNE> EKG EKG shows normal sinus rhythm at 74 bpm, left axis deviation, no change compared to 02/05/2017 Impression Assessment and Plan Epigastric pain/anginal equivalent versus GI-- The patient will be admitted to telemetry for serial cardiac enzymes, cardiac rhythm monitoring and a 2-D echocardiogram with Dopplers. Hold aspirin 81 mg today. Continue carvedilol 25 mg by mouth twice a day, felodipine ER 5 mg by mouth 3 times a day, and hydralazine 25 mg by mouth 3 times a day. Consult gastroenterology, as patient has a history of gastric ulcers. Increase pantoprazole to 40 mg by mouth twice a day. Diabetes mellitus-- Accu-Cheks before meals and at bedtime with NovoLog coverage per scale. Levemir 15 units subcutaneous every 12 hours. ESRD on HD-- Consult Dr. Stephenson Hyperlipidemia-- Continue atorvastatin 1020 mg by mouth at bedtime. Peripheral neuropathy-- Gabapentin 100 mg by mouth daily before hemodialysis. Hypothyroidism-- Continue levothyroxine sodium 100 g by mouth daily Continue lactulose, mag oxide and Nephrocaps. Level of Care Telemetry Advanced Directives Existing Advance Directive: No Existing Living Will: Yes Existing Power of Talent Director: Yes (JENNIFER STOKES ) Resuscitation Status FULL RESUSCITATION VTE Prophylaxis VTE Risk Assessment Done? Y/N: Yes Risk Level: Moderate Given or contraindicated: SCD's
[2017-02-25 19:51] VITALS: BP 137/80; PULSE 71; TEMP 36.9; O2SAT 98
--- NOTE | 2017-02-25 20:08 | EMERGENCY ROOM VISIT NOTE ---
History Report prepared by Yanick: Maegan Ford Under the Supervision of: Dr. Carlos Singh D.O. First contact with patient: 15:41 Chief Complaint: CHEST PAIN Stated Complaint: CHEST DISCOMFORT WHEN BREATHING DEEPLY Nursing Triage Summary: pt to the ED with c/o chest pain with deep breathing pt states that she went to dialysis then had lunch and then developed chest pain going to her back pt states that she had full dialysis History of Present Illness The patient is a 71 year old female who presents to the Emergency Room with complaints of persistent chest pain that began three hours ago. She currently rates her discomfort as an 8/10 in severity. The patient reports that she is on dialysis every Wednesday, , and Wednesday. She states that she went to dialysis today and had it normally. The patient states that she ate a salad for lunch around 1200 and states that around 1300 she began experiencing central chest pain that she describes as a heaviness. She states that she has never had pain like this in the past and additionally associates shortness of breath. The patient reports increased pain with deep breathing. She denies wearing supplemental nasal cannula oxygen at home. The patient states that her pain radiates into her left shoulder and into her back. She states that she has a history of a previous DVT, but states that she takes 81 mg of aspirin daily. The patient states that she had a "silent" heart attack several years ago. She states that she has a runny nose due to a recent nasal surgery. The patient denies any history of COPD. She states that her last bowel movement was this morning. Pt denies headache, change in vision, fevers, nausea, vomiting, diarrhea, pain with urination, and melena. Source of History: patient Onset: three hours ago Position: chest Symptom Intensity: 8/10 Quality: other (heaviness) Timing: other (persistent) Modifying Factors (Worsening): breathing (deep) Associated Symptoms: + SOB, + back pain Note: Associated Symptoms: left shoulder pain Review of Systems See HPI for pertinent positives & negatives. A total of 10 systems reviewed and were otherwise negative. Past Medical & Surgical Medical Problems: (1) Abdominal pain (2) Anemia (3) ARF (acute renal failure) (4) Arthritis (5) Cellulitis (6) Chest pain (7) Chronic kidney disease (8) COPD (chronic obstructive pulmonary disease) (9) Depression (10) Diabetes mellitus (11) Elevated troponin (12) Elevated troponin I level (13) End stage renal disease (14) Epigastric abdominal pain (15) Essential hypertension (16) Gastroesophageal reflux disease (17) History of thrombophlebitis (18) Hypothyroidism (19) Kidney disease (20) Nausea and vomiting (21) Obesity (22) Secondary hyperparathyroidism (of renal origin) (23) Streptococcal sepsis Surgical Problems: (1) H/O: hysterectomy Family History Diabetes mellitus Heart disease Hypertension Kidney disease Kidney stones Social History Smoking Status: Never Smoker Alcohol Use: none Marital Status: Housing Status: lives with family Occupation Status: retired Current/Historical Medications Scheduled Aspirin (Aspirin Ec), 81 MG PO DAILY Atorvastatin (Lipitor), 20 MG PO HS Calcium Acetate (Phoslo 667 Mg), 1 CAP PO TID Carvedilol (Coreg), 25 MG PO BID Citalopram Hydrobromide (Celexa), 40 MG PO HS Felodipine (Felodipine ER), 5 MG PO TID Gabapentin (Neurontin), 100 MG PO 3XWEEK Hydralazine Hcl (Apresoline), 25 MG PO TID Insulin Detemir (Levemir Flextouch), 15 UNITS SC Q12 Lactulose (Encephalopathy) (Enulose), 15 ML PO QAM Levothyroxine Sodium (Levothyroxine Sodium), 100 MCG PO DAILY Magnesium Oxide (Mg Supplement (Magnesium), 400 MG PO QAM Pantoprazole (Protonix), 40 MG PO HS Vitamin B Cmplx/Vitc/Folic Ac (Nephrocaps), 1 CAP PO QAM Allergies Coded Allergies: Lisinopril (Verified Adverse Reaction, Intermediate, cough, 02/25/17) Physical Exam Vital Signs Date Time Temp Pulse Resp B/P (MAP) Pulse Ox O2 Delivery O2 Flow Rate FiO2 02/25/17 17:29 68 18 146/73 99 Nasal Cannula 2.0 02/25/17 17:21 98 Nasal Cannula 2.0 02/25/17 17:00 68 18 174/97 98 Nasal Cannula 2.0 02/25/17 16:52 69 20 181/73 97 Nasal Cannula 2.0 02/25/17 16:18 71 02/25/17 16:11 74 18 111/47 97 02/25/17 16:00 98 Nasal Cannula 2.0 02/25/17 16:00 98 Nasal Cannula 2.0 02/25/17 15:37 37.1 75 20 155/97 86 Room Air Physical Exam GENERAL: alert, sitting up in bed, chronically ill appearing, well nourished, minimal distress, non-toxic EYE EXAM: normal conjunctiva. OROPHARYNX: no exudate, no erythema, lips, buccal mucosa, and tongue normal and mucous membranes are moist NECK: supple, no nuchal rigidity, no adenopathy, non-tender LUNGS: Faint wheezes at bilateral bases. Normal chest wall mechanics HEART: no murmurs, S1 normal and S2 normal ABDOMEN: abdomen soft, non-tender, normo-active bowel sounds, no masses, no rebound or guarding. BACK: Back is symmetrical on inspection and there is no deformity, no midline tenderness, no CVA tenderness. SKIN: no rashes and no bruising UPPER EXTREMITIES: Left upper extremity has a fistula in place with positive bruit LOWER EXTREMITIES: No pitting edema. NEURO EXAM: Normal sensorium, cranial nerves II-XII grossly intact, normal speech, no gross weakness of arms, no gross weakness of legs. Medical Decision & Procedures ER Provider Diagnostic Interpretation: Radiology results as stated below per my review and the radiologist's interpretation: (CHEST FOR PE) ANGIO WITH CT DOSE: 526.44 mGycm HISTORY: Chest pain dyspnea TECHNIQUE: Multiaxial CT images of the chest were performed following the intravenous administration of contrast to evaluate the pulmonary arteries. Maximal intensity projection images were also obtained. A dose lowering technique was utilized adhering to the principles of ALARA. COMPARISON STUDY: None. FINDINGS: Mild atherosclerotic change thoracic aorta. No evidence for aneurysm or dissection. The pulmonary vasculature enhances appropriately. There are no significant filling defects. No significant mediastinal or hilar adenopathy. Mild nonspecific interstitial change throughout both hemithoraces. Mild cardiomegaly. IMPRESSION: No evidence for pulmonary embolus. Mild pulmonary interstitial change bilaterally. Mild cardiomegaly. The above report was generated using voice recognition software. It may contain grammatical, syntax or spelling errors. Electronically signed by: Eder Moss M.D. 02/25/2017 4:52 PM Dictated Date/Time: 02/25/2017 4:49 PM CHEST ONE VIEW PORTABLE CLINICAL HISTORY: EVALUATE RESPIRATORY DISTRESS.DYSPNEA dyspnea COMPARISON STUDY: 02/05/2017 FINDINGS: The bones soft tissues and hemidiaphragms are normal. The cardiomediastinal silhouette is normal. The lungs are clear. The pulmonary vasculature is normal. IMPRESSION: Negative chest. The above report was generated using voice recognition software. It may contain grammatical, syntax or spelling errors. Electronically signed by: Eder Moss M.D. 02/25/2017 4:53 PM Dictated Date/Time: 02/25/2017 4:52 PM Laboratory Results 02/25/17 15:35 Red Blood Count 3.57, Mean Corpuscular Volume 100.8, Mean Corpuscular Hemoglobin 31.9, Mean Corpuscular Hemoglobin Concent 31.7, Mean Platelet Volume 9.6, Neutrophils (%) (Auto) 82.8, Lymphocytes (%) (Auto) 6.6, Monocytes (%) ( Auto) 9.4, Eosinophils (%) (Auto) 0.8, Basophils (%) (Auto) 0.2, Neutrophils # ( Auto) 12.97, Lymphocytes # (Auto) 1.03, Monocytes # (Auto) 1.47, Eosinophils # ( Auto) 0.12, Basophils # (Auto) 0.03 02/25/17 15:35 Test 02/25/17 15:35 White Blood Count 15.65 K/uL (4.8-10.8) Red Blood Count 3.57 M/uL (4.2-5.4) Hemoglobin 11.4 g/dL (12.0-16.0) Hematocrit 36.0 % (37-47) Mean Corpuscular Volume 100.8 fL (80-100) Mean Corpuscular Hemoglobin 31.9 pg (25-34) Mean Corpuscular Hemoglobin Concent 31.7 g/dl (32-36) Platelet Count 168 K/uL (130-400) Mean Platelet Volume 9.6 fL (7.4-10.4) Neutrophils (%) (Auto) 82.8 % Lymphocytes (%) (Auto) 6.6 % Monocytes (%) (Auto) 9.4 % Eosinophils (%) (Auto) 0.8 % Basophils (%) (Auto) 0.2 % Neutrophils # (Auto) 12.97 K/uL (1.4-6.5) Lymphocytes # (Auto) 1.03 K/uL (1.2-3.4) Monocytes # (Auto) 1.47 K/uL (0.11-0.59) Eosinophils # (Auto) 0.12 K/uL (0-0.5) Basophils # (Auto) 0.03 K/uL (0-0.2) RDW Standard Deviation 53.9 fL (36.4-46.3) RDW Coefficient of Variation 14.8 % (11.5-14.5) Immature Granulocyte % (Auto) 0.2 % Immature Granulocyte # (Auto) 0.03 K/uL (0.00-0.02) Prothrombin Time 11.1 SECONDS (9.0-12.0) Prothromb Time International Ratio 1.0 (0.9-1.1) Activated Partial Thromboplast Time 26.3 SECONDS (21.0-31.0) Partial Thromboplastin Ratio 1.0 Anion Gap 9.0 mmol/L (3-11) Est Creatinine Clear Calc Drug Dose 19.9 ml/min Estimated GFR () 18.9 Estimated GFR (Non- 16.3 BUN/Creatinine Ratio 6.9 (10-20) Calcium Level 8.8 mg/dl (8.5-10.1) Total Bilirubin 0.3 mg/dl (0.2-1) Aspartate Amino Transf (AST/SGOT) 24 U/L (15-37) Alanine Aminotransferase (ALT/SGPT) 14 U/L (12-78) Alkaline Phosphatase 103 U/L (45-117) Troponin I 0.096 ng/ml (0-0.045) Pro-B-Type Natriuretic Peptide 2308 pg/ml (0-900) Total Protein 8.0 gm/dl (6.4-8.2) Albumin 3.6 gm/dl (3.4-5.0) Globulin 4.4 gm/dl (2.5-4.0) Albumin/Globulin Ratio 0.8 (0.9-2) Laboratory results per my review. Medications Administered Medications (Trade) Dose Ordered Sig/Vaibhav Route Start Time Stop Time Status Last Admin Dose Admin Aspirin (Aspirin Chew) 324 mg NOW STAT PO 02/25/17 15:55 02/25/17 15:58 DC 02/25/17 15:55 324 MG Nitroglycerin (Nitrostat Tab) 0.4 mg Q5M PRN SL 02/25/17 16:00 9/28/17 18:13 DC 02/25/17 16:06 0.4 MG Nitroglycerin (Nitroglycerin 2% Oint) 2 inch Q6H EXT 02/25/17 17:15 02/25/17 18:01 DC 02/25/17 17:28 2 INCH ECG Indication: chest pain Rate (beats per minute): 74 Rhythm: sinus rhythm Findings: Q waves (inferior and septal), no ectopy Comparison ECG Date: 02/05/17 Change: no significant change ED Course ED COURSE: Vital signs were reviewed and showed hypoxic, hypertension The patients medical record was reviewed The above diagnostic studies were performed and reviewed. ED treatments and interventions as stated above. 1545: The patient was evaluated in room A10. A complete history and physical examination was performed. 1555: Ordered Aspirin 324 mg PO. 1600: Ordered Nitroglycerin 0.4 mg SL. 1659: Upon reevaluation, the patient is resting comfortably. She states that her pain got better with the nitro, but states that it has now returned. I discussed my findings with the patient and she understands and agrees with the treatment plan. Based on the patients age, coexisting illnesses, exam and lab findings the decision to treat as an inpatient was made. The patient remained stable while under my care. The patient will be evaluated for further management. 1715: I discussed the patient's case with Dr. Arias [facility]. He is going to evaluate the patient for further treatment. Ordered Nitroglycerin 2 inch ext. Medical Decision Differential diagnoses includes but is not limited to acute coronary syndrome, myocardial infarction, pericarditis, pulmonary embolus, aortic dissection, pneumonia, pneumothorax, musculoskeletal, shingles, esophageal. Patient is a 71-year-old female who is dialysis dependent received a full course dialysis today that presents to ER for an hours worth of precordial chest pain associated with left arm pain and shortness of breath. Chest pain resolved with nitroglycerin. Patient was given aspirin. Does have a previous history of PEs. She was hypoxic with a pulse ox in the 80s upon arrival. CT PE was performed and was unremarkable. Patient was updated in regards to her findings. Chest pain did recur she was placed on Nitropaste. Troponin was elevated but less than normal for her. Leukocytosis of 15,000. Creatinine was 2.8. INR was 1. She was updated at bedside and pain-free following the troponin is on nasal cannula and admitted to internal medicine for further workup. Medication Reconcilliation Current Medication List: was personally reviewed by me Blood Pressure Screening Patient's blood pressure: Elevated blood pressure Blood pressure disposition: Referred to PCP Consults Time Called: 1702 Consulting Physician: JEFFERSON Solares Returned Call: 1715 I discussed the patient's case with JEFFERSON Solares. He is going to evaluate the patient for further treatment. Impression Primary Impression: Precordial chest pain Additional Impression: Elevated troponin Scribe Attestation The scribe's documentation has been prepared under my direction and personally reviewed by me in its entirety. I confirm that the note above accurately reflects all work, treatment, procedures, and medical decision making performed by me. Departure Information Dispostion Being Evaluated By Hospitalist Referrals No Doctor, Assigned (PCP) Problem Qualifiers
[2017-02-25] MEDS: PANTOprazole SOD 40 MG TAB PO SCH (21:06)
[2017-02-25] MEDS: MAGNESIUM OXIDE 400 MG TAB PO SCH (21:07)
[2017-02-25] MEDS: CITALOPRAM 40 MG TAB PO SCH (21:07)
[2017-02-25] MEDS: FELODIPINE 5 MG TABCR PO SCH (21:07)
[2017-02-25] MEDS: CARVEDILOL 25 MG TAB PO SCH (21:07)
[2017-02-25] MEDS: ATORVASTATIN 20 MG TAB PO SCH (21:07)
[2017-02-25] MEDS: ACETAMINOPHEN 325 MG TAB PO PRN (21:08)
[2017-02-25] MEDS: INSULIN ASPART 100 UNITS/ML 3 ML PEN SC SCH (21:09)
[2017-02-25] MEDS: INSULIN DETEMIR FLEXPEN/FLEX TOUCH 100 UNITS/ML 3ML SC SCH (21:10)
[2017-02-25] MEDS ORDERED: MoRPHine SULFATE 2 MG/ML CARP IV STA (22:16)
[2017-02-25] MEDS ORDERED: GI COCKTAIL PO ONE (22:30)
[2017-02-25] MEDS ORDERED: ALUMINUM/MAGNESIUM SUSP 18 ML, LIDOCAINE HCL 2% VISCOUS SOLN 6 ML, BARCODE IDENTIFIER 1 EA PO ONE ×2 (22:45)
[2017-02-25 23:16] VITALS: BP 153/79; PULSE 70; TEMP 37.2; O2SAT 94
[2017-02-26] MEDS ORDERED: NURSING VERBAL MED ORDER ONE (02:30)
[2017-02-26] MEDS ORDERED: GI COCKTAIL PO PRN (02:30)
[2017-02-26] MEDS: ACETAMINOPHEN 325 MG TAB PO PRN ×2 (02:33→15:04)
[2017-02-26] MEDS: ALUMINUM/MAGNESIUM SUSP 72 ML, LIDOCAINE HCL 2% VISCOUS SOLN 24 ML, BARCODE IDENTIFIER ... PO PRN ×4 (02:55→07:53)
[2017-02-26 04:12] VITALS: BP 147/72; PULSE 68; TEMP 37.3; O2SAT 99
[2017-02-26] MEDS: NITROGLYCERIN OINT 2% 1GM PACKET EXT SCH ×4 (06:00→17:05)
[2017-02-26] MEDS: LEVOTHYROXINE 100 MCG TAB PO SCH (06:17)
[2017-02-26 07:02] LABS: BASO % 0.4 %; BASO ABS # 0.04 K/uL (0-0.2); COMPLETE YES; EOS % 0.8 %; HEMATOCRIT 32.6 % (37-47); IG% 0.2 %; LYMPH % 15.4 %; LYMPH ABS # 1.43 K/uL (1.2-3.4); MEAN CELL VOLUME 100.3 fL (80-100); MEAN CORPUSCULAR HEMOGLOBIN 32.3 pg (25-34); MEAN CORPUSCULAR HGB CONC 32.2 g/dl (32-36); MEAN PLATELET VOLUME 9.5 fL (7.4-10.4); MONO % 15.7 %; NEUT % 67.5 %; PLATELET COUNT 134 K/uL (130-400); RED BLOOD COUNT 3.25 M/uL (4.2-5.4); WHITE BLOOD COUNT 9.31 K/uL (4.8-10.8)
[2017-02-26 07:13] VITALS: BP 146/83; PULSE 66; TEMP 36.8; O2SAT 93
[2017-02-26 07:17] LABS: INR 1.1 (0.9-1.1); PARTIAL THROMBOPLASTIN RATIO 1.2; PROTHROMBIN TIME (PATIENT) 11.6 SECONDS (9.0-12.0)
[2017-02-26 07:36] LABS: BUN/CREATININE RATIO 8.6 (10-20); CALCIUM 8.5 mg/dl (8.5-10.1); CREATININE 3.9 mg/dl (0.60-1.20); MAGNESIUM 2.4 mg/dl (1.8-2.4); POTASSIUM 4.1 mmol/L (3.5-5.1)
[2017-02-26] MEDS ORDERED: PERFLUTREN LIPID MICROSPHERE (DEFINITY) IV ONE (08:44)
--- NOTE | 2017-02-26 09:06 | Nephrology Consultation ---
Nephrology Consultation Date & Providers Date of Consultation: Feb 26, 2017. Primary Care Provider: Julito Burt M.D. Referring Provider: Reason for Consultation ESRD History of Present Illness Mrs. Patrick is a 71 year-old female with ESRD. Nephrology consultation was requested to assist with appropriate inpatient management. Medical records in hospital EMR were reviewed during the patient's evaluation today. The patient's medical history is significant for end-stage renal disease due to diabetic nephropathy and hypertensive nephrosclerosis. The patient was started on hemodialysis 09/30/2015. She dialyzes TTS at [facility] dialysis unit. She has a right wrist AV fistula in place. The patient's medical history is also significant for obesity s/p gastric banding, T2DM, HTN, arthritis and depression. She completed the scheduled HD treatment yesterday without complications. Mrs. Patrick was admitted to the hospital yesterday for evaluation chest/ midepigastric abdominal discomfort. Symptoms started yesterday after lunch. She was admitted with similar symptoms in 2016 but reports that the current episode was associated with more heaviness in her chest and some difficulty taking a deep breath. She also describes some increasing dysphagia of solids and liquids recently. She describes foods or medications intermittently becoming stuck in her chest while eating. This has been happening for the past few months. The patient describes this as a severe, sharp stabbing discomfort which has been recurrent. It did improve with SL nitroglycerin. Troponin levels were checked and found to be chronically elevated and stable. EKG did not reveal any acute changes. CXR and CTA of the chest were unrevealing. These studies were reviewed this morning. TTE is being completed this morning. GI consult pending. In September of 2015, EGD was completed and found to be negative for gastritis or peptic ulcer disease. She was transferred to [facility] in [place] where gastric banding was previously performed with improvement in epigastric symptoms. Past Medical/Surgical History Medical: # End stage renal disease due to diabetic nephropathy and hypertensive nephrosclerosis. On HD since 09/30/15. Dialyzes TTS at [facility] # HTN # T2DM - no retinopathy # Obestity (BMI 43) # Hypercholesterolemia # Hypothyroidism # GERD # Polyarthritis # Depression Surgical: # R wrist AVF created 05/[address] Cervantes # R wrist AVF revised 07/15 Allergies Coded Allergies: Lisinopril (Verified Adverse Reaction, Intermediate, cough, 02/25/17) Inpatient Medications Current Inpatient Medications Medications (Trade) Dose Ordered Sig/Vaibhav Route Start Time Stop Time Status Last Admin Dose Admin Ioversol (Optiray 320) 125 ml UD PRN IV 02/25/17 16:15 03/01/17 16:14 Acetaminophen (Tylenol Tab) 650 mg Q4H PRN PO 02/25/17 18:00 03/27/17 17:59 02/26/17 02:33 650 MG Nitroglycerin (Nitrostat Tab) 0.4 mg UD PRN SL 02/25/17 18:00 03/27/17 17:59 02/25/17 22:05 0.4 MG Nitroglycerin (Nitroglycerin 2% Oint) 1 inch Q6H EXT 02/25/17 18:00 03/27/17 17:59 Aspirin (Ecotrin Tab) 81 mg DAILY PO 02/26/17 09:00 03/28/17 08:59 Atorvastatin Calcium (Lipitor Tab) 20 mg HS PO 02/25/17 21:00 03/27/17 20:59 02/25/17 21:07 20 MG Calcium Acetate (Phoslo Cap) 667 mg TIDM PO 02/25/17 18:00 03/27/17 17:59 Carvedilol (Coreg Tab) 25 mg BID PO 02/25/17 21:00 03/27/17 20:59 02/25/17 21:07 25 MG Citalopram Hydrobromide (celeXA TAB) 40 mg HS PO 02/25/17 21:00 03/27/17 20:59 02/25/17 21:07 40 MG Felodipine (Plendil Tabcr) 5 mg TID PO 02/25/17 21:00 03/27/17 20:59 02/25/17 21:07 5 MG Gabapentin (Neurontin Cap) 100 mg TuThSa@0900 PO 02/27/17 09:00 03/29/17 08:59 Hydralazine HCl (Apresoline Tab) 25 mg TID PO 02/25/17 21:00 03/27/17 20:59 02/25/17 21:07 25 MG Insulin Detemir (Levemir Flexpen/ FlexTouch) 15 units Q12 SC 02/25/17 21:00 03/27/17 20:59 02/25/17 21:10 15 UNITS Levothyroxine Sodium (Synthroid Tab) 100 mcg DAILYBB PO 02/26/17 06:00 03/28/17 06:59 02/26/17 06:17 100 MCG Pantoprazole Sodium (Protonix Tab) 40 mg BID PO 02/25/17 21:00 03/27/17 20:59 02/25/17 21:06 40 MG Vitamin B Complex/ Vit C/Folic Acid (Nephrocaps) 1 cap QAM PO 02/26/17 09:00 03/28/17 08:59 Lactulose (Chronulac Syrup) 10 gm QAM PO 02/26/17 09:00 03/28/17 08:59 Magnesium Oxide (Mag-Ox Tab) 400 mg BID PO 02/25/17 21:00 03/27/17 20:59 02/25/17 21:07 400 MG Ondansetron HCl (Zofran Inj) 4 mg Q6H PRN IV 02/25/17 18:00 03/27/17 17:59 Insulin Aspart (novoLOG ASPART) SLIDING SCALE If C... ACHS SC 02/25/17 21:00 03/27/17 20:59 02/25/17 21:09 4 UNITS Glucose (Glucose 40% Gel) UD PRN PO 02/25/17 18:00 03/27/17 17:59 Glucose (Glucose Chew Tab) 1 tabs UD PRN PO 02/25/17 18:00 03/27/17 17:59 Dextrose (Dextrose 50% 50ML Syringe) 50 ml UD PRN IV 02/25/17 18:00 03/27/17 17:59 Glucagon (Glucagon Inj) 1 mg UD PRN SQ 02/25/17 18:00 03/27/17 17:59 Al Hydroxide/Mg Hydroxide/ Lidocaine HCl/ Barcode Q4H PRN PO 02/26/17 02:45 03/28/17 02:44 02/26/17 07:53 24 ML Family History Diabetes mellitus Heart disease Hypertension Kidney disease Kidney stones Social History Smoking Status: Never Smoker Marital Status: Occupation: retired Review of Systems A complete review of systems was performed. Pertinent positives are noted above. All other systems are negative. Physical Exam Date Time Temp Pulse Resp B/P (MAP) Pulse Ox O2 Delivery O2 Flow Rate FiO2 02/26/17 07:13 36.8 66 19 146/83 (104) 93 Nasal Cannula 2.0 02/26/17 04:12 37.3 68 20 147/72 (97) 99 Nasal Cannula 2.0 02/26/17 04:00 Nasal Cannula 2.0 02/26/17 00:00 Nasal Cannula 2.0 02/25/17 23:16 37.2 70 18 153/79 (103) 94 Nasal Cannula 1.5 02/25/17 20:00 Nasal Cannula 2.0 02/25/17 19:51 36.9 71 18 137/80 (99) 98 Nasal Cannula 2.0 02/25/17 18:45 36.7 78 22 147/71 (96) 90 Room Air 02/25/17 17:29 68 18 146/73 99 Nasal Cannula 2.0 02/25/17 17:21 98 Nasal Cannula 2.0 02/25/17 17:00 68 18 174/97 98 Nasal Cannula 2.0 02/25/17 16:52 69 20 181/73 97 Nasal Cannula 2.0 02/25/17 16:18 71 02/25/17 16:11 74 18 111/47 97 02/25/17 16:00 98 Nasal Cannula 2.0 02/25/17 16:00 98 Nasal Cannula 2.0 02/25/17 15:37 37.1 75 20 155/97 86 Room Air General Appearance: WD/WN, no apparent distress Head: normocephalic, atraumatic Eyes: normal inspection, sclerae normal ENT: normal ENT inspection, pharynx normal Neck: supple, no JVD Cardiovascular: regular rate, rhythm, no murmur Abdomen/GI: non tender, soft Extremities/Musculoskelatal: normal inspection, no pedal edema, + pertinent finding (AVF with thrill and bruit) Neurologic/Psych: alert, oriented x 3 Laboratory Results Last 24 Hours Test 02/25/17 15:35 02/25/17 21:03 02/26/17 01:56 02/26/17 06:50 White Blood Count 15.65 K/uL 9.31 K/uL Red Blood Count 3.57 M/uL 3.25 M/uL Hemoglobin 11.4 g/dL 10.5 g/dL Hematocrit 36.0 % 32.6 % Mean Corpuscular Volume 100.8 fL 100.3 fL Mean Corpuscular Hemoglobin 31.9 pg 32.3 pg Mean Corpuscular Hemoglobin Concent 31.7 g/dl 32.2 g/dl Platelet Count 168 K/uL 134 K/uL Mean Platelet Volume 9.6 fL 9.5 fL Neutrophils (%) (Auto) 82.8 % 67.5 % Lymphocytes (%) (Auto) 6.6 % 15.4 % Monocytes (%) (Auto) 9.4 % 15.7 % Eosinophils (%) (Auto) 0.8 % 0.8 % Basophils (%) (Auto) 0.2 % 0.4 % Neutrophils # (Auto) 12.97 K/uL 6.29 K/uL Lymphocytes # (Auto) 1.03 K/uL 1.43 K/uL Monocytes # (Auto) 1.47 K/uL 1.46 K/uL Eosinophils # (Auto) 0.12 K/uL 0.07 K/uL Basophils # (Auto) 0.03 K/uL 0.04 K/uL RDW Standard Deviation 53.9 fL 54.3 fL RDW Coefficient of Variation 14.8 % 14.9 % Immature Granulocyte % (Auto) 0.2 % 0.2 % Immature Granulocyte # (Auto) 0.03 K/uL 0.02 K/uL Prothrombin Time 11.1 SECONDS 11.6 SECONDS Prothromb Time International Ratio 1.0 1.1 Activated Partial Thromboplast Time 26.3 SECONDS 30.6 SECONDS Partial Thromboplastin Ratio 1.0 1.2 Sodium Level 136 mmol/L 134 mmol/L Potassium Level 3.6 mmol/L 4.1 mmol/L Chloride Level 95 mmol/L 97 mmol/L Carbon Dioxide Level 32 mmol/L 31 mmol/L Anion Gap 9.0 mmol/L 6.0 mmol/L Blood Urea Nitrogen 19 mg/dl 33 mg/dl Creatinine 2.80 mg/dl 3.90 mg/dl Est Creatinine Clear Calc Drug Dose 19.9 ml/min 14.2 ml/min Estimated GFR () 18.9 12.7 Estimated GFR (Non- 16.3 10.9 BUN/Creatinine Ratio 6.9 8.6 Random Glucose 187 mg/dl 157 mg/dl Calcium Level 8.8 mg/dl 8.5 mg/dl Total Bilirubin 0.3 mg/dl Aspartate Amino Transf (AST/SGOT) 24 U/L Alanine Aminotransferase (ALT/SGPT) 14 U/L Alkaline Phosphatase 103 U/L Troponin I 0.096 ng/ml 0.084 ng/ml Pro-B-Type Natriuretic Peptide 2308 pg/ml Total Protein 8.0 gm/dl Albumin 3.6 gm/dl Globulin 4.4 gm/dl Albumin/Globulin Ratio 0.8 Bedside Glucose 248 mg/dl Total Creatine Kinase 50 U/L Creatine Kinase MB < 0.5 ng/ml Creatine Kinase MB Ratio Magnesium Level 2.4 mg/dl Impression (1) Dependent on hemodialysis (2) End stage renal disease (3) Chest pain (4) Diabetes mellitus (5) Essential hypertension Mrs. Shirley Patrick is a 71-year-old female with ESRD due to diabetes and hypertension. She was admitted to the hospital for evaluation of chest/ epigastric abdominal pain. Symptoms started after eating. She also describes dysphagia with liquids and solids over the past couple of months. She has vomited after eating on other occasions. Patient has stable chronic elevation of troponin. CXR and CTA of the chest were reviewed. EKG without acute changes. TTE pending. GI consult pending. Medical history is notable for removal of a gastric band in September of 2015 for persistent epigastric pain and discomfort. Patient has ESRD due to diabetic nephropathy and hypertensive nephrosclerosis. She has been on hemodialysis since 09/30/15. She dialyzes TTS at [facility] dialysis unit. PMH - ESRD due to diabetic nephropathy/hypertensive nephrosclerosis (TTS HD at [facility]), T2DM, HTN, obesity, h/o gastric banding, hypercholesterolemia, hypothyroidism, arthritis, proteinuria and depression. Recommendations END STAGE RENAL DISEASE: -- HD TTS -- Blood pressure, volume status and electrolytes currently appropriate -- Monitor serial PRP -- Nephrovite one po daily if able to swallow tablets HYPERTENSION: -- BP checked and found to be appropriate ANEMIA: -- Will provide epogen w/ HD treatments
[2017-02-26] MEDS: INSULIN ASPART 100 UNITS/ML 3 ML PEN SC SCH ×4 (09:07→20:47)
[2017-02-26] MEDS: INSULIN DETEMIR FLEXPEN/FLEX TOUCH 100 UNITS/ML 3ML SC SCH ×2 (09:07→20:47)
[2017-02-26] MEDS: CARVEDILOL 25 MG TAB PO SCH ×2 (09:08→20:38)
[2017-02-26] MEDS: LACTULOSE SYRUP 10 GM/15 ML BTL 473 ML PO SCH (09:08)
[2017-02-26] MEDS: CALCIUM ACETATE 667MG GELCAP PO SCH ×3 (09:08→17:05)
[2017-02-26] MEDS: MAGNESIUM OXIDE 400 MG TAB PO SCH ×2 (09:08→20:39)
[2017-02-26] MEDS: NEPHROCAPS PO SCH (09:08)
[2017-02-26] MEDS: FELODIPINE 5 MG TABCR PO SCH ×3 (09:08→20:40)
[2017-02-26] MEDS: PANTOprazole SOD 40 MG TAB PO SCH ×2 (09:08→20:40)
[2017-02-26] MEDS: ASPIRIN 81 MG ECTAB PO SCH (09:08)
--- NOTE | 2017-02-26 09:28 | Gastrointestinal Consultation ---
Gastrointestinal Consultation Date of Consultation: Feb 26, 2017 Attending Physician: Dr. Arias Consulting Physician: Dr. Joyner Reason for Consultation: Epigastric pain History of Present Illness Patient is a 71 year old female with a history of chest pain, CKD, COPD and GERD presenting to the ER yesterday with a sudden onset of epigastric and chest pain that radiated into her back and chest three hours prior to arrival. At that time, she states she was eating a salad and started to develop the pain. Her pain was associated with shortness of breath and chest heaviness. She presented for evaluation in this regard. Upon arrival, she was noted to have a negative CTA chest and CXR. ECG demonstrated no acute changes but she did have a slightly elevated troponin. The patient's symptoms were improved with administration of nitroglycerin and a GI cocktail. She denies any pyrosis, nausea or vomiting, diarrhea, constipation, melena or hematochezia. She does have a tendency to be anemic but her H&H was only slightly below normal at 11.4 and 36.0. She has been started on Pantoprazole 40 mg BID. Cardiology consult has been placed as well as GI consult. Currently, she rates her pain as 6/10 in intensity. Interestingly, from review of records, Dr. Joyner did evaluate the patient just over one year ago while in the hospital with a very similar clinical presentation. She was more anemic at that time with a H&H of 9.8/33.1. He did perform an upper endoscopy at that time and the testing was negative for any acute GI pathology. Past Medical/Surgical History Medical Problems: (1) Contusion of knee, right Status: Acute (2) Facial contusion Status: Acute (3) Fever Status: Acute (4) Lactic acidosis Status: Acute (5) Leukocytosis Status: Acute (6) Precordial chest pain Status: Acute (7) SIRS (systemic inflammatory response syndrome) Status: Acute (8) Substernal chest pain Status: Acute Past Medical History: 1. Anemia 2. ARF 3. Arthritis 4. Cellulitis 5. Chest pain 6. COPD 7. CKD 8. Depression 9. Diabetes 10. Elevated troponin 11. ESRD 12. Essential hypertension 13. GERD 14. Hypothyroidism 15. Obesity 16. Secondary hyperparathyroidism 17. Streptococcal sepsis Past Surgical History: 1. Hysterectomy 2. Bladder surgery 3. Cataract surgery 4. Nasal septoplasty 5. Hiatal hernia repair 6. Rotator cuff surgery 7. EGD Family History Diabetes mellitus Heart disease Hypertension Kidney disease Kidney stones Negative for GI malignancy or IBD Social History Smoking Status: Never Smoker Alcohol Use: none Drug Use: none Marital Status: Housing Status: lives with family Occupation Status: retired no caffeine Allergies Coded Allergies: Lisinopril (Verified Adverse Reaction, Intermediate, cough, 02/25/17) Current Medications Home Meds and Scripts Medications Dose Route/Sig Max Daily Dose Days Date Category Dose Instructions Aspirin Ec (Aspirin) 81 Mg Tab 81 Mg PO DAILY 02/25/17 Reported Levothyroxine Sodium 100 Mcg Tab 100 Mcg PO DAILY 90 02/25/17 Reported Enulose (Lactulose (Encephalopathy)) 10 Gm/15 Ml Jennifer 15 Ml PO QAM 02/05/17 Reported Neurontin (Gabapentin) 100 Mg Cap 100 Mg PO 3XWEEK 02/05/17 Reported AM Saturdays BEFORE DIALYSIS Protonix (Pantoprazole Sodium) 40 Mg Tab 40 Mg PO HS 02/05/17 Reported Coreg (Carvedilol) 25 Mg Tab 25 Mg PO BID 02/05/17 Reported Phoslo 667 Mg (Calcium Acetate) 667 Mg Cap 1 Cap PO TID 90 02/05/17 Reported Nephrocaps (Vitamin B Complex/Vit C/Folic Acid) Cap 1 Cap PO QAM 02/05/17 Reported Levemir Flextouch (Insulin Detemir) 100 Unit/Ml Inj 15 Units SC Q12 12/03/16 Reported Lipitor (Atorvastatin Calcium) 20 Mg Tab 20 Mg PO HS 11/19/14 Reported Celexa (Citalopram Hydrobromide) 40 Mg Tab 40 Mg PO HS 11/19/14 Reported Felodipine ER (Felodipine) 5 Mg Tabcr 5 Mg PO TID 02/20/14 Reported Apresoline (Hydralazine Hcl) 25 Mg Tab 25 Mg PO TID 02/20/14 Reported Magnesium (Magnesium Oxide (Mg Supplement) 400 Mg Cap 400 Mg PO QAM 02/04/14 Reported Review of Systems Constitutional: No fever, No chills, No fatigue Eyes: No problem reported ENT: No trouble swallowing, No pain on swallowing Respiratory: + see HPI Cardiac: + see HPI Abdomen: + see HPI Musculoskeletal: No problem reported Female : No problem reported Neuro: No problem reported Psych: No problem reported Skin: No problem reported Physical Exam Date Time Temp Pulse Resp B/P (MAP) Pulse Ox O2 Delivery O2 Flow Rate FiO2 02/26/17 07:13 36.8 66 19 146/83 (104) 93 Nasal Cannula 2.0 02/26/17 04:12 37.3 68 20 147/72 (97) 99 Nasal Cannula 2.0 02/26/17 04:00 Nasal Cannula 2.0 02/26/17 00:00 Nasal Cannula 2.0 02/25/17 23:16 37.2 70 18 153/79 (103) 94 Nasal Cannula 1.5 02/25/17 20:00 Nasal Cannula 2.0 02/25/17 19:51 36.9 71 18 137/80 (99) 98 Nasal Cannula 2.0 02/25/17 18:45 36.7 78 22 147/71 (96) 90 Room Air 02/25/17 17:29 68 18 146/73 99 Nasal Cannula 2.0 02/25/17 17:21 98 Nasal Cannula 2.0 02/25/17 17:00 68 18 174/97 98 Nasal Cannula 2.0 02/25/17 16:52 69 20 181/73 97 Nasal Cannula 2.0 02/25/17 16:18 71 02/25/17 16:11 74 18 111/47 97 02/25/17 16:00 98 Nasal Cannula 2.0 02/25/17 16:00 98 Nasal Cannula 2.0 02/25/17 15:37 37.1 75 20 155/97 86 Room Air General Appearance: WD/WN, no apparent distress Eyes: EOMI ENT: hearing grossly normal Neck: supple Respiratory/Chest: lungs clear, normal breath sounds, no respiratory distress Cardiovascular: regular rate, rhythm, no gallop, no murmur Abdomen: normal bowel sounds, non tender, soft Extremities: no pedal edema Neurologic/Psych: alert, normal mood/affect, oriented x 3 Skin: warm/dry Laboratory Results Last 24 Hours Test 02/25/17 15:35 02/25/17 21:03 02/26/17 01:56 02/26/17 06:50 White Blood Count 15.65 K/uL 9.31 K/uL Red Blood Count 3.57 M/uL 3.25 M/uL Hemoglobin 11.4 g/dL 10.5 g/dL Hematocrit 36.0 % 32.6 % Mean Corpuscular Volume 100.8 fL 100.3 fL Mean Corpuscular Hemoglobin 31.9 pg 32.3 pg Mean Corpuscular Hemoglobin Concent 31.7 g/dl 32.2 g/dl Platelet Count 168 K/uL 134 K/uL Mean Platelet Volume 9.6 fL 9.5 fL Neutrophils (%) (Auto) 82.8 % 67.5 % Lymphocytes (%) (Auto) 6.6 % 15.4 % Monocytes (%) (Auto) 9.4 % 15.7 % Eosinophils (%) (Auto) 0.8 % 0.8 % Basophils (%) (Auto) 0.2 % 0.4 % Neutrophils # (Auto) 12.97 K/uL 6.29 K/uL Lymphocytes # (Auto) 1.03 K/uL 1.43 K/uL Monocytes # (Auto) 1.47 K/uL 1.46 K/uL Eosinophils # (Auto) 0.12 K/uL 0.07 K/uL Basophils # (Auto) 0.03 K/uL 0.04 K/uL RDW Standard Deviation 53.9 fL 54.3 fL RDW Coefficient of Variation 14.8 % 14.9 % Immature Granulocyte % (Auto) 0.2 % 0.2 % Immature Granulocyte # (Auto) 0.03 K/uL 0.02 K/uL Prothrombin Time 11.1 SECONDS 11.6 SECONDS Prothromb Time International Ratio 1.0 1.1 Activated Partial Thromboplast Time 26.3 SECONDS 30.6 SECONDS Partial Thromboplastin Ratio 1.0 1.2 Sodium Level 136 mmol/L 134 mmol/L Potassium Level 3.6 mmol/L 4.1 mmol/L Chloride Level 95 mmol/L 97 mmol/L Carbon Dioxide Level 32 mmol/L 31 mmol/L Anion Gap 9.0 mmol/L 6.0 mmol/L Blood Urea Nitrogen 19 mg/dl 33 mg/dl Creatinine 2.80 mg/dl 3.90 mg/dl Est Creatinine Clear Calc Drug Dose 19.9 ml/min 14.2 ml/min Estimated GFR () 18.9 12.7 Estimated GFR (Non- 16.3 10.9 BUN/Creatinine Ratio 6.9 8.6 Random Glucose 187 mg/dl 157 mg/dl Calcium Level 8.8 mg/dl 8.5 mg/dl Total Bilirubin 0.3 mg/dl Aspartate Amino Transf (AST/SGOT) 24 U/L Alanine Aminotransferase (ALT/SGPT) 14 U/L Alkaline Phosphatase 103 U/L Troponin I 0.096 ng/ml 0.084 ng/ml Pro-B-Type Natriuretic Peptide 2308 pg/ml Total Protein 8.0 gm/dl Albumin 3.6 gm/dl Globulin 4.4 gm/dl Albumin/Globulin Ratio 0.8 Bedside Glucose 248 mg/dl Total Creatine Kinase 50 U/L Creatine Kinase MB < 0.5 ng/ml Creatine Kinase MB Ratio Magnesium Level 2.4 mg/dl Impression Patient is a 71 year old female with a history of GERD, chest pain and diabetes admitted with epigastric and chest pain as well as shortness of breath. Diff dx: PUD vs gastritis vs GERD vs other. Plan 1. As no alarm features and prior EGD just over one year ago for similar symptoms, will hold off on invasive GI work up. 2. Continue Protonix 40 mg BID. 3. Add Carafate 1 g ACHS. 4. Await cardiology eval. 5. Would consider outpatient gastric emptying study as she is a diabetic and symptoms began after eating a salad if symptoms persist. 6. Supportive medical management. Thank you for allowing us to participate in the care of this pleasant patient. If you have any questions or concerns, please do not hesitate to contact us. Agree with MARIA E Mendoza as above Abd: Soft, NT, ND, +BS Continue current therapy No plans for EGD at this time Gastric Emptying study as outpatient Continue supportive care.
--- NOTE | 2017-02-26 11:19 | Cardiology Consultation ---
Cardiology Consultation Date of Consultation: Feb 26, 2017. Requesting Physician: Dr. Suarez Attending Physician: Dr. Antonio Reason for Consultation: Chest pain Pt evaluation today including: conversation w/ patient, physical exam, chart review, lab review, review of studies, review of inpatient medication list, conversation w/ attending History of Present Illness Mrs. Patrick is a 71 year old female with a medical history significant for hypertension, ESRD on hemodialysis (T,TH,S), type 2 diabetes mellitus, dyslipidemia and hypothyroidism. She has had the following studies/procedures: 1. Echo 02/05/14: No visualize wall motion abnormality. Normal LV systolic function. EF 55-60%. Type I diastolic dysfunction. Mild left atrial dilation. Sclerotic aortic valve without stenosis. Mild MR. RVSP 32 mmHg. 2. Nuclear stress 02/09/14: No significant ischemic changes on Lexiscan study. EF 49%. Normal wall motion. 3. Echo 09/29/2015: Normal LV systolic function. EF 55-60%. Septal flattening suggesting RV pressure overload. Dilated RV with normal systolic function. Sclerotic aortic valve without significant stenosis. Severe mitral annular calcification resulting in mild mitral stenosis. Severe pulmonary hypertension suggested with an estimated RVSP of 70 mmHg. 4. Dobutamine stress echo 10/14/16: Negative for ischemia at 78% MPHR; cannot rule out ischemia at faster heart rates. No chest pain reported. Resting echo with normal LV systolic function, normal wall motion, mild concentric LVH. She has no history of coronary artery disease. She has a history of chronic, mildly elevated troponin levels during prior hospital admissions. She has never undergone cardiac catheterization. She was admitted to [facility] on 02/25/17. She states shortly after eating a salad for lunch yesterday she developed midepigastric and chest discomfort. She describes the discomfort as pressure but also stabbing at times. She states the pain feels like it radiates through to her back. She did not have any associated dyspnea, diaphoresis, nausea, vomiting, lightheadedness or syncope. Her pain has improved somewhat but has not resolved completely. Currently her pain is exacerbated by deep breaths and certain movements. It is not worse with lying flat. She reports having similar symptoms in the past, most recently September 2015 when she was admitted with similar discomfort and she says it was attributed to a gastrointestinal cause. At that time she was [place] [facility] [place] her gastric band. In the weeks leading up to her current hospitalization she was experienced intermittent dysphagia. She has not had any exertional chest discomfort. She has chronic exertional dyspnea which she feels is stable. No dyspnea at rest, orthopnea, PND, edema, palpitations, lightheadedness, presyncope or syncope. No abnormal bleeding including melena, hematochezia or hematuria. The remainder of her review of systems is unremarkable. Family History Diabetes mellitus Heart disease Hypertension Kidney disease Kidney stones Social History Smoking Status: Never Smoker History of Alcohol Use: No and lives with in [place]. Retired. No history of tobacco use. No alcohol or drug use. Allergies Coded Allergies: Lisinopril (Verified Adverse Reaction, Intermediate, cough, 02/25/17) Medications Current Inpatient Medications Medications (Trade) Dose Ordered Sig/Vaibhav Route Start Time Stop Time Status Last Admin Dose Admin Ioversol (Optiray 320) 125 ml UD PRN IV 02/25/17 16:15 03/01/17 16:14 Acetaminophen (Tylenol Tab) 650 mg Q4H PRN PO 02/25/17 18:00 03/27/17 17:59 02/26/17 02:33 650 MG Nitroglycerin (Nitrostat Tab) 0.4 mg UD PRN SL 02/25/17 18:00 03/27/17 17:59 02/25/17 22:05 0.4 MG Nitroglycerin (Nitroglycerin 2% Oint) 1 inch Q6H EXT 02/25/17 18:00 03/27/17 17:59 Aspirin (Ecotrin Tab) 81 mg DAILY PO 02/26/17 09:00 03/28/17 08:59 02/26/17 09:08 81 MG Atorvastatin Calcium (Lipitor Tab) 20 mg HS PO 02/25/17 21:00 03/27/17 20:59 02/25/17 21:07 20 MG Calcium Acetate (Phoslo Cap) 667 mg TIDM PO 02/25/17 18:00 03/27/17 17:59 02/26/17 09:08 667 MG Carvedilol (Coreg Tab) 25 mg BID PO 02/25/17 21:00 03/27/17 20:59 02/26/17 09:08 25 MG Citalopram Hydrobromide (celeXA TAB) 40 mg HS PO 02/25/17 21:00 03/27/17 20:59 02/25/17 21:07 40 MG Felodipine (Plendil Tabcr) 5 mg TID PO 02/25/17 21:00 03/27/17 20:59 02/26/17 09:08 5 MG Gabapentin (Neurontin Cap) 100 mg TuThSa@0900 PO 02/27/17 09:00 03/29/17 08:59 Hydralazine HCl (Apresoline Tab) 25 mg TID PO 02/25/17 21:00 03/27/17 20:59 02/26/17 09:09 25 MG Insulin Detemir (Levemir Flexpen/ FlexTouch) 15 units Q12 SC 02/25/17 21:00 03/27/17 20:59 02/26/17 09:07 15 UNITS Levothyroxine Sodium (Synthroid Tab) 100 mcg DAILYBB PO 02/26/17 06:00 03/28/17 06:59 02/26/17 06:17 100 MCG Pantoprazole Sodium (Protonix Tab) 40 mg BID PO 02/25/17 21:00 03/27/17 20:59 02/26/17 09:08 40 MG Vitamin B Complex/ Vit C/Folic Acid (Nephrocaps) 1 cap QAM PO 02/26/17 09:00 03/28/17 08:59 02/26/17 09:08 1 CAP Lactulose (Chronulac Syrup) 10 gm QAM PO 02/26/17 09:00 03/28/17 08:59 02/26/17 09:08 10 GM Magnesium Oxide (Mag-Ox Tab) 400 mg BID PO 02/25/17 21:00 03/27/17 20:59 02/26/17 09:08 400 MG Ondansetron HCl (Zofran Inj) 4 mg Q6H PRN IV 02/25/17 18:00 03/27/17 17:59 Insulin Aspart (novoLOG ASPART) SLIDING SCALE If C... ACHS SC 02/25/17 21:00 03/27/17 20:59 02/26/17 09:07 3 UNITS Glucose (Glucose 40% Gel) UD PRN PO 02/25/17 18:00 10/28/17 17:59 Glucose (Glucose Chew Tab) 1 tabs UD PRN PO 02/25/17 18:00 03/27/17 17:59 Dextrose (Dextrose 50% 50ML Syringe) 50 ml UD PRN IV 02/25/17 18:00 03/27/17 17:59 Glucagon (Glucagon Inj) 1 mg UD PRN SQ 02/25/17 18:00 03/27/17 17:59 Al Hydroxide/Mg Hydroxide/ Lidocaine HCl/ Barcode Q4H PRN PO 02/26/17 02:45 03/28/17 02:44 02/26/17 07:53 24 ML Sucralfate (Carafate Susp) 1 gm QID PO 02/26/17 13:00 03/28/17 12:59 Physical Exam Vital Signs Past 12 Hours Date Time Temp Pulse Resp B/P (MAP) Pulse Ox O2 Delivery O2 Flow Rate FiO2 02/26/17 07:13 36.8 66 19 146/83 (104) 93 Nasal Cannula 2.0 02/26/17 04:12 37.3 68 20 147/72 (97) 99 Nasal Cannula 2.0 02/26/17 04:00 Nasal Cannula 2.0 02/26/17 00:00 Nasal Cannula 2.0 02/25/17 23:16 37.2 70 18 153/79 (103) 94 Nasal Cannula 1.5 General: No acute distress. Alert and oriented. HEENT: Head is normal. PERRLA. EOMI. Sclera anicteric. Ears, nose and throat unremarkable. Neck: No JVD or carotid bruit. Lungs: Clear to auscultation bilaterally without rales, rhonchi or wheezes. Cardiac: Regular rate and rhythm. S1 and S2 normal. Grade 1-2/6 systolic ejection murmur right sternal border. No diastolic murmur, gallop or rub. Chest wall tenderness with palpation. Abdomen: Soft without guarding. Tenderness in the midepigastric region to palpation. Bowel sounds normal. No mass. No abdominal bruit. Extremities: Without cyanosis, clubbing or peripheral edema. Right wrist AVF. Skin: No rash or abnormal lesions. Normal turgor. Neurologic: No focal deficits. Psychiatric: Affect seems appropriate. Data Laboratory Results: Last 24 Hours Test 02/25/17 15:35 02/25/17 21:03 02/26/17 01:56 02/26/17 06:50 White Blood Count 15.65 K/uL 9.31 K/uL Red Blood Count 3.57 M/uL 3.25 M/uL Hemoglobin 11.4 g/dL 10.5 g/dL Hematocrit 36.0 % 32.6 % Mean Corpuscular Volume 100.8 fL 100.3 fL Mean Corpuscular Hemoglobin 31.9 pg 32.3 pg Mean Corpuscular Hemoglobin Concent 31.7 g/dl 32.2 g/dl Platelet Count 168 K/uL 134 K/uL Mean Platelet Volume 9.6 fL 9.5 fL Neutrophils (%) (Auto) 82.8 % 67.5 % Lymphocytes (%) (Auto) 6.6 % 15.4 % Monocytes (%) (Auto) 9.4 % 15.7 % Eosinophils (%) (Auto) 0.8 % 0.8 % Basophils (%) (Auto) 0.2 % 0.4 % Neutrophils # (Auto) 12.97 K/uL 6.29 K/uL Lymphocytes # (Auto) 1.03 K/uL 1.43 K/uL Monocytes # (Auto) 1.47 K/uL 1.46 K/uL Eosinophils # (Auto) 0.12 K/uL 0.07 K/uL Basophils # (Auto) 0.03 K/uL 0.04 K/uL RDW Standard Deviation 53.9 fL 54.3 fL RDW Coefficient of Variation 14.8 % 14.9 % Immature Granulocyte % (Auto) 0.2 % 0.2 % Immature Granulocyte # (Auto) 0.03 K/uL 0.02 K/uL Prothrombin Time 11.1 SECONDS 11.6 SECONDS Prothromb Time International Ratio 1.0 1.1 Activated Partial Thromboplast Time 26.3 SECONDS 30.6 SECONDS Partial Thromboplastin Ratio 1.0 1.2 Sodium Level 136 mmol/L 134 mmol/L Potassium Level 3.6 mmol/L 4.1 mmol/L Chloride Level 95 mmol/L 97 mmol/L Carbon Dioxide Level 32 mmol/L 31 mmol/L Anion Gap 9.0 mmol/L 6.0 mmol/L Blood Urea Nitrogen 19 mg/dl 33 mg/dl Creatinine 2.80 mg/dl 3.90 mg/dl Est Creatinine Clear Calc Drug Dose 19.9 ml/min 14.2 ml/min Estimated GFR () 18.9 12.7 Estimated GFR (Non- 16.3 10.9 BUN/Creatinine Ratio 6.9 8.6 Random Glucose 187 mg/dl 157 mg/dl Calcium Level 8.8 mg/dl 8.5 mg/dl Total Bilirubin 0.3 mg/dl Aspartate Amino Transf (AST/SGOT) 24 U/L Alanine Aminotransferase (ALT/SGPT) 14 U/L Alkaline Phosphatase 103 U/L Troponin I 0.096 ng/ml 0.084 ng/ml Pro-B-Type Natriuretic Peptide 2308 pg/ml Total Protein 8.0 gm/dl Albumin 3.6 gm/dl Globulin 4.4 gm/dl Albumin/Globulin Ratio 0.8 Bedside Glucose 248 mg/dl Total Creatine Kinase 50 U/L Creatine Kinase MB < 0.5 ng/ml Creatine Kinase MB Ratio Magnesium Level 2.4 mg/dl Test 02/26/17 09:55 02/26/17 10:23 Creatine Kinase MB Ratio Imaging: Chest xray with no acute process. Chest CTA: No evidence for pulmonary embolus. Mild pulmonary interstitial change bilaterally. Mild cardiomegaly. ECGs reviewed with Dr. Antonio. Possible J-point elevation. Telemetry reviewed: No arrhythmia or pause. Assessment & Plan Patient is a 71 year old female with a medical history significant for hypertension, ESRD on hemodialysis, type 2 diabetes mellitus, dyslipidemia and hypothyroidism who was admitted to [facility] on 02/25/17 with epigastric and chest discomfort which developed after eating lunch. She has persistent pain. She was admitted with similar symptoms in September 2015 which were felt to be GI in nature. She had a dobutamine stress echo at that time which was negative for ischemia. Her troponin levels have been chronically, minimally elevated. This may be secondary to her kidney disease. During her current admission her troponin peaked at 0.096 and is trending down. Her troponin level has been higher in the past. Her ECG is remarkable for possible J point elevation, no significant ST changes. It is unlikely her symptoms are due to acute coronary syndrome and there is no current indication for cardiac catheterization. Her echocardiogram is pending. There seems to be a pleuritic component and pericarditis may be possible. Given her history, epigastric pain and recent dysphagia symptoms a GI etiology is probably more likely. Cardiology attending: Pt seen and examined. She describes chest discomfort with deep inspiration and swallowing, also with movement. It has not gone away since admission. Enzymes are not very high given her CKD and lower than last visit, no ECG or echo findings to suggest ischemia and duration is long not to have acute findings. Pericarditis is a possibility, her symptoms are compatible, the ECG shows J point elevation diffusely not present on prior ECGs. I am going to try IV torodol to see if that helps her symptoms, although it could help other causes of discomfort as well.
[2017-02-26 11:31] VITALS: BP 146/84; PULSE 65; TEMP 36.9; O2SAT 91
[2017-02-26] MEDS: SUCRALFATE 1 GM/10 ML UDC PO SCH ×3 (12:05→20:39)
--- NOTE | 2017-02-26 12:50 | ECHOCARDIOGRAM REPORT ---
*NOTICE TO RECEIVING [employer] This information is strictly Confidential and protected under [place] law. [place] law prohibits you from making any further disclosure of this information unless further disclosure is expressly permitted by the written consent of the person to whom it pertains or is authorized by law. A general authorization for the release of medical or other information is not sufficient for this purpose. Hospital accepts no responsibility if the information is made available to any other person, INCLUDING THE PATIENT. Interpretation Summary * Name: LITO MOHR Study Date: 02/26/2017 07:34 AM BP: 147/72 mmHg * Patient Location: C.2T\S\S243\S\1 HR: 68 * : 1945 (M/d/yyyy) Gender: Female Height: 62 in * Age: 71 yrs Ethnicity: [place] Weight: 211 lb * Ordering Physician: Carlos Eduardo Arias * Referring Physician: Self, Referred * Performed By: Chloe Read RDCS * * Reason For Study: Elevated troponin * BSA: 2.0 m2 * Normal biventricular systolic function. * Normal left ventricular wall motion. * Mild concentric left ventricular hypertrophy. * Class 1 left ventricular diastolic dysfunction. * Normal chamber dimensions. * Trace pulmonic, mitral, and tricuspid regurgitation. * Normal estimated right ventricular systolic pressure. Normal estimated central venous pressure. * -- Conclusions -- * Aortic valve sclerosis moderate, without significant aortic valvular stenosis. Procedure Details * A complete two-dimensional transthoracic echocardiogram was performed (2D, M-mode, Doppler and color flow Doppler). * A contrast injection of Definity was performed to improve assessment of LV function. * Contrast was injected into an intravenous site in the left arm. * One vial of Definity ultrasound contrast was diluted in normal saline to a total volume of 10 ml. A total of '2' ml of solution was administered during imaging. * Lot # [id number] of Definity utilized for procedure. * Expiration date MAR 17. * The attending nurse who injected the contrast agent was Fatuma Last RN. Left Ventricle * The left ventricle is normal in size. * There is mild concentric left ventricular hypertrophy. * Ejection Fraction = 55-60%. * Left ventricular systolic function is normal. * A full diastolic examination was done with clinical findings of Class I diastolic dysfunction. * The left ventricular wall motion is normal. * No regional wall motion abnormalities noted. Right Ventricle * The right ventricle is normal in size and function. Atria * The left atrial size is normal. * Right atrial size is normal. * No ASD detected; PFO is not assessed. Mitral Valve * There is severe mitral annular calcification. * There is no mitral valve stenosis. * There is trace mitral regurgitation. Tricuspid Valve * The tricuspid valve is normal. * There is no tricuspid stenosis. * There is trace tricuspid regurgitation. * Right ventricular systolic pressure is normal. Aortic Valve * Aortic valve sclerosis moderate, without significant aortic valvular stenosis. * The aortic valve is trileaflet. * The aortic valve opens well. * No hemodynamically significant valvular aortic stenosis. * No aortic regurgitation is present. Pulmonic Valve * The pulmonic valve is not well visualized. * The pulmonary valve is inadequately visualized, but the Doppler data is adequate for interpretation. * There is no pulmonic valvular stenosis. * Trace pulmonic valvular regurgitation. Great Vessels * The aortic root is normal size. Pericardium/Pleural * There is no pericardial effusion. Great Vessels * Normal inferior vena cava diameter and respiratory variation suggests normal central venous pressure. MMode 2D Measurements and Calculations IVSd 1.2 cm LVIDd 4.6 cm LVIDs 3.1 cm LVPWd 1.2 cm IVS/LVPW 0.98 FS 32.9 % EDV(Teich) 98.0 ml ESV(Teich) 37.7 ml EF(Teich) 61.5 % EDV(cubed) 98.2 ml ESV(cubed) 29.6 ml EF(cubed) 69.8 % LV mass(C)d 208.4 grams LV mass(C)dI 106.6 grams/m\S\2 CO(Teich) 4.1 l/min CI(Teich) 2.1 l/min/m\S\2 SV(Teich) 60.3 ml SI(Teich) 30.8 ml/m\S\2 CO(cubed) 4.7 l/min CI(cubed) 2.4 l/min/m\S\2 SV(cubed) 68.6 ml SI(cubed) 35.1 ml/m\S\2 Ao root diam 3.1 cm Ao root area 7.5 cm\S\2 ACS 1.6 cm LA dimension 3.1 cm asc Aorta Diam 3.5 cm LA/Ao 1.0 LVOT diam 1.8 cm LVOT area 2.4 cm\S\2 LVAd ap4 30.7 cm\S\2 LVLd ap4 7.7 cm EDV(MOD-sp4) 104.0 ml LVAs ap4 19.3 cm\S\2 LVLs ap4 6.4 cm ESV(MOD-sp4) 46.5 ml EF(MOD-sp4) 55.3 % LVAd ap2 35.2 cm\S\2 LVLd ap2 7.8 cm EDV(MOD-sp2) 131.0 ml LVAs ap2 21.0 cm\S\2 LVLs ap2 6.5 cm ESV(MOD-sp2) 57.3 ml EF(MOD-sp2) 56.3 % CO(MOD-sp4) 3.9 l/min CI(MOD-sp4) 2.0 l/min/m\S\2 SV(MOD-sp4) 57.5 ml SI(MOD-sp4) 29.4 ml/m\S\2 CO(MOD-sp2) 5.0 l/min CI(MOD-sp2) 2.6 l/min/m\S\2 SV(MOD-sp2) 73.7 ml SI(MOD-sp2) 37.7 ml/m\S\2 Doppler Measurements and Calculations MV E max diana 148.2 cm/sec MV A max diana 161.7 cm/sec MV E/A 0.92 MV dec time 0.29 sec Ao V2 max 142.5 cm/sec Ao max PG 8.1 mmHg Ao max PG (full) 1.9 mmHg JAYLA(V,A) 2.1 cm\S\2 JAYLA(V,D) 2.1 cm\S\2 LV V1 max PG 6.3 mmHg LV V1 max 125.2 cm/sec PA V2 max 129.0 cm/sec PA max PG 6.7 mmHg PA acc slope 1018.2 cm/sec\S\2 PA acc time 0.08 sec PI end-d diana 95.0 cm/sec TR max diana 233.5 cm/sec PA pr(Accel) 42.6 mmHg
[2017-02-26] MEDS ORDERED: KETOROLAC TROMETHAMINE 15 MG/ML VIAL IV. STA (13:46)
[2017-02-26] MEDS: KETOROLAC TROMETHAMINE 10 MG TAB PO SCH ×2 (15:10→20:39)
[2017-02-26 15:49] VITALS: BP 117/70; PULSE 58; TEMP 37.5; O2SAT 91
--- NOTE | 2017-02-26 16:51 | Progress Note ---
Subjective Date of Service: Feb 26, 2017. Subjective Darnell is here for chest pain. Patient states that her pain at times is sharp, radiates straight to the back and is positional. In the ER though she did mention pressure like chest pain. Patient reports feeling moderately improved after receiveing toradol. Patient denies nausea, vomiting, fever, chills. Problem List Medical Problems: (1) Contusion of knee, right Status: Acute (2) Facial contusion Status: Acute (3) Fever Status: Acute (4) Lactic acidosis Status: Acute (5) Leukocytosis Status: Acute (6) Precordial chest pain Status: Acute (7) SIRS (systemic inflammatory response syndrome) Status: Acute (8) Substernal chest pain Status: Acute Review of Systems Constitutional: No fever, No chills Respiratory: No cough, No sputum Cardiac: + chest pain, No orthopnea Abdomen: No pain, No nausea Musculoskeletal: No joint pain Female : No dysuria, No urinary frequency Skin: No rash, No itch All Other Systems: Reviewed and Negative Medications Current Inpatient Medications Medications (Trade) Dose Ordered Sig/Vaibhav Route Start Time Stop Time Status Last Admin Dose Admin Ioversol (Optiray 320) 125 ml UD PRN IV 02/25/17 16:15 03/01/17 16:14 Acetaminophen (Tylenol Tab) 650 mg Q4H PRN PO 02/25/17 18:00 03/27/17 17:59 02/26/17 15:04 650 MG Nitroglycerin (Nitrostat Tab) 0.4 mg UD PRN SL 02/25/17 18:00 03/27/17 17:59 02/25/17 22:05 0.4 MG Nitroglycerin (Nitroglycerin 2% Oint) 1 inch Q6H EXT 02/25/17 18:00 03/27/17 17:59 02/27/17 06:24 1 INCH Aspirin (Ecotrin Tab) 81 mg DAILY PO 02/26/17 09:00 03/28/17 08:59 02/26/17 09:08 81 MG Atorvastatin Calcium (Lipitor Tab) 20 mg HS PO 02/25/17 21:00 03/27/17 20:59 02/26/17 20:40 20 MG Calcium Acetate (Phoslo Cap) 667 mg TIDM PO 02/25/17 18:00 03/27/17 17:59 02/26/17 17:05 667 MG Carvedilol (Coreg Tab) 25 mg BID PO 02/25/17 21:00 03/27/17 20:59 02/26/17 20:38 25 MG Citalopram Hydrobromide (celeXA TAB) 40 mg HS PO 02/25/17 21:00 03/27/17 20:59 02/26/17 20:40 40 MG Felodipine (Plendil Tabcr) 5 mg TID PO 02/25/17 21:00 03/27/17 20:59 02/26/17 20:40 5 MG Gabapentin (Neurontin Cap) 100 mg TuThSa@0900 PO 02/27/17 09:00 03/29/17 08:59 Hydralazine HCl (Apresoline Tab) 25 mg TID PO 02/25/17 21:00 03/27/17 20:59 02/26/17 20:40 25 MG Insulin Detemir (Levemir Flexpen/ FlexTouch) 15 units Q12 SC 02/25/17 21:00 03/27/17 20:59 02/26/17 20:47 15 UNITS Levothyroxine Sodium (Synthroid Tab) 100 mcg DAILYBB PO 02/26/17 06:00 03/28/17 06:59 02/27/17 06:24 100 MCG Pantoprazole Sodium (Protonix Tab) 40 mg BID PO 02/25/17 21:00 03/27/17 20:59 02/26/17 20:40 40 MG Vitamin B Complex/ Vit C/Folic Acid (Nephrocaps) 1 cap QAM PO 02/26/17 09:00 03/28/17 08:59 02/26/17 09:08 1 CAP Lactulose (Chronulac Syrup) 10 gm QAM PO 02/26/17 09:00 03/28/17 08:59 02/26/17 09:08 10 GM Magnesium Oxide (Mag-Ox Tab) 400 mg BID PO 02/25/17 21:00 03/27/17 20:59 02/26/17 20:39 400 MG Ondansetron HCl (Zofran Inj) 4 mg Q6H PRN IV 02/25/17 18:00 03/27/17 17:59 Insulin Aspart (novoLOG ASPART) SLIDING SCALE If C... ACHS SC 02/25/17 21:00 03/27/17 20:59 02/26/17 20:47 16 UNITS Glucose (Glucose 40% Gel) UD PRN PO 02/25/17 18:00 03/27/17 17:59 Glucose (Glucose Chew Tab) 1 tabs UD PRN PO 02/25/17 18:00 03/27/17 17:59 Dextrose (Dextrose 50% 50ML Syringe) 50 ml UD PRN IV 02/25/17 18:00 03/27/17 17:59 Glucagon (Glucagon Inj) 1 mg UD PRN SQ 02/25/17 18:00 03/27/17 17:59 Al Hydroxide/Mg Hydroxide/ Lidocaine HCl/ Barcode Q4H PRN PO 02/26/17 02:45 03/28/17 02:44 02/26/17 07:53 24 ML Sucralfate (Carafate Susp) 1 gm QID PO 02/26/17 13:00 03/28/17 12:59 02/26/17 20:39 1 GM Ketorolac Tromethamine (Toradol Tab) 10 mg TID PO 02/26/17 14:00 03/03/17 13:59 02/26/17 20:39 10 MG Objective Vital Signs Date Time Temp Pulse Resp B/P (MAP) Pulse Ox O2 Delivery O2 Flow Rate FiO2 02/26/17 15:49 37.5 58 18 117/70 (86) 91 Nasal Cannula 2.0 02/26/17 12:00 Room Air 02/26/17 11:31 36.9 65 18 146/84 (104) 91 Nasal Cannula 2.0 02/26/17 08:00 Room Air 02/26/17 07:13 36.8 66 19 146/83 (104) 93 Nasal Cannula 2.0 02/26/17 04:12 37.3 68 20 147/72 (97) 99 Nasal Cannula 2.0 02/26/17 04:00 Nasal Cannula 2.0 02/26/17 00:00 Nasal Cannula 2.0 02/25/17 23:16 37.2 70 18 153/79 (103) 94 Nasal Cannula 1.5 02/25/17 20:00 Nasal Cannula 2.0 02/25/17 19:51 36.9 71 18 137/80 (99) 98 Nasal Cannula 2.0 02/25/17 18:45 36.7 78 22 147/71 (96) 90 Room Air 02/25/17 17:29 68 18 146/73 99 Nasal Cannula 2.0 02/25/17 17:21 98 Nasal Cannula 2.0 02/25/17 17:00 68 18 174/97 98 Nasal Cannula 2.0 02/25/17 16:52 69 20 181/73 97 Nasal Cannula 2.0 Physical Exam General Appearance: WD/WN, no apparent distress Neck: supple, no adenopathy, thyroid normal Respiratory/Chest: chest non-tender, lungs clear, normal breath sounds Cardiovascular: regular rate, rhythm, no edema, no gallop Abdomen: normal bowel sounds, non tender, soft Extremities: normal range of motion, non-tender Skin: normal color Laboratory Results Last 24 Hours Test 02/25/17 21:03 02/26/17 01:56 02/26/17 06:50 02/26/17 10:23 Bedside Glucose 248 mg/dl Total Creatine Kinase 50 U/L 39 U/L Creatine Kinase MB < 0.5 ng/ml < 0.5 ng/ml Creatine Kinase MB Ratio Troponin I 0.084 ng/ml 0.074 ng/ml White Blood Count 9.31 K/uL Red Blood Count 3.25 M/uL Hemoglobin 10.5 g/dL Hematocrit 32.6 % Mean Corpuscular Volume 100.3 fL Mean Corpuscular Hemoglobin 32.3 pg Mean Corpuscular Hemoglobin Concent 32.2 g/dl Platelet Count 134 K/uL Mean Platelet Volume 9.5 fL Neutrophils (%) (Auto) 67.5 % Lymphocytes (%) (Auto) 15.4 % Monocytes (%) (Auto) 15.7 % Eosinophils (%) (Auto) 0.8 % Basophils (%) (Auto) 0.4 % Neutrophils # (Auto) 6.29 K/uL Lymphocytes # (Auto) 1.43 K/uL Monocytes # (Auto) 1.46 K/uL Eosinophils # (Auto) 0.07 K/uL Basophils # (Auto) 0.04 K/uL RDW Standard Deviation 54.3 fL RDW Coefficient of Variation 14.9 % Immature Granulocyte % (Auto) 0.2 % Immature Granulocyte # (Auto) 0.02 K/uL Prothrombin Time 11.6 SECONDS Prothromb Time International Ratio 1.1 Activated Partial Thromboplast Time 30.6 SECONDS Partial Thromboplastin Ratio 1.2 Sodium Level 134 mmol/L Potassium Level 4.1 mmol/L Chloride Level 97 mmol/L Carbon Dioxide Level 31 mmol/L Anion Gap 6.0 mmol/L Blood Urea Nitrogen 33 mg/dl Creatinine 3.90 mg/dl Est Creatinine Clear Calc Drug Dose 14.2 ml/min Estimated GFR () 12.7 Estimated GFR (Non- 10.9 BUN/Creatinine Ratio 8.6 Random Glucose 157 mg/dl Calcium Level 8.5 mg/dl Magnesium Level 2.4 mg/dl Test 02/26/17 11:18 Bedside Glucose 175 mg/dl Assessment and Plan 71 yo female with history of chest pain in the past with chornically mildly elevated troponin is admitted with pleurtitic chest pain. 1. Pericarditis GI and anginal is in the differential, however, after discussion with cardio. Patient has multple clues that point to pericarditis. 1. J waves. 2. Pleuritic chest pain 3. Mild improvement with toradol. Troponin has been gradually decreasing. will continue home meds and will resume ASA in am. Continue carvedilol 25 mg by mouth twice a day, felodipine ER 5 mg by mouth 3 times a day, and hydralazine 25 mg by mouth 3 times a day. Consult gastroenterology, as patient has a history of gastric ulcers. Increase pantoprazole to 40 mg by mouth twice a day. Diabetes mellitus-- Accu-Cheks before meals and at bedtime with NovoLog coverage per scale. Levemir 15 units subcutaneous every 12 hours. ESRD on HD-- Consult Dr. Stephenson Hyperlipidemia-- Continue atorvastatin by mouth at bedtime. Peripheral neuropathy-- Gabapentin 100 mg by mouth daily before hemodialysis. Hypothyroidism-- Continue levothyroxine sodium 100 g by mouth daily Continue lactulose, mag oxide and Nephrocaps. Continued [facility] stay due to: other (CHEST PAIN) Discharge planning: uncertain
[2017-02-26 19:47] VITALS: BP 119/75; PULSE 57; TEMP 37.2; O2SAT 94
[2017-02-26] MEDS: ATORVASTATIN 20 MG TAB PO SCH (20:40)
[2017-02-26] MEDS: CITALOPRAM 40 MG TAB PO SCH (20:40)
[2017-02-26 23:52] VITALS: BP 111/66; PULSE 62; TEMP 37.7; O2SAT 93
[2017-02-27] VITALS (26 sets, daily range): BP systolic 74–131; BP diastolic 40–75; PULSE 45–60; TEMP 36.5–37.2; O2SAT 93–98
[2017-02-27] MEDS: LEVOTHYROXINE 100 MCG TAB PO SCH (06:24)
[2017-02-27] MEDS: NITROGLYCERIN OINT 2% 1GM PACKET EXT SCH ×3 (06:24→13:49)
[2017-02-27 06:29] LABS: BASO % 0.3 %; BASO ABS # 0.03 K/uL (0-0.2); COMPLETE YES; EOS % 1.4 %; IG% 0.1 %; LYMPH % 15.3 %; LYMPH ABS # 1.44 K/uL (1.2-3.4); MEAN CELL VOLUME 100.9 fL (80-100); MEAN CORPUSCULAR HEMOGLOBIN 30.3 pg (25-34); MEAN PLATELET VOLUME 9.6 fL (7.4-10.4); MONO % 11.6 %; NEUT % 71.3 %; PLATELET COUNT 135 K/uL (130-400); RED BLOOD COUNT 3.27 M/uL (4.2-5.4); WHITE BLOOD COUNT 9.39 K/uL (4.8-10.8)
[2017-02-27 06:55] LABS: INR 1.1 (0.9-1.1); PARTIAL THROMBOPLASTIN RATIO 1.3; PROTHROMBIN TIME (PATIENT) 11.6 SECONDS (9.0-12.0)
[2017-02-27 07:12] LABS: BUN/CREATININE RATIO 8.7 (10-20); CALCIUM 8.8 mg/dl (8.5-10.1); CREATININE 5.2 mg/dl (0.60-1.20); MAGNESIUM 2.6 mg/dl (1.8-2.4); POTASSIUM 4.6 mmol/L (3.5-5.1)
[2017-02-27] MEDS: CALCIUM ACETATE 667MG GELCAP PO SCH ×3 (08:14→17:46)
[2017-02-27] MEDS: SUCRALFATE 1 GM/10 ML UDC PO SCH ×4 (08:15→21:25)
[2017-02-27] MEDS: ASPIRIN 81 MG ECTAB PO SCH (08:16)
[2017-02-27] MEDS: CARVEDILOL 25 MG TAB PO SCH ×2 (08:16→21:21)
[2017-02-27] MEDS: LACTULOSE SYRUP 10 GM/15 ML BTL 473 ML PO SCH (08:16)
[2017-02-27] MEDS: MAGNESIUM OXIDE 400 MG TAB PO SCH ×2 (08:17→21:21)
[2017-02-27] MEDS: NEPHROCAPS PO SCH (08:17)
[2017-02-27] MEDS: FELODIPINE 5 MG TABCR PO SCH ×3 (08:17→21:22)
[2017-02-27] MEDS: PANTOprazole SOD 40 MG TAB PO SCH ×2 (08:17→21:24)
[2017-02-27] MEDS: KETOROLAC TROMETHAMINE 10 MG TAB PO SCH ×2 (08:18→13:49)
[2017-02-27] MEDS: INSULIN DETEMIR FLEXPEN/FLEX TOUCH 100 UNITS/ML 3ML SC SCH ×2 (08:19→21:33)
[2017-02-27] MEDS: INSULIN ASPART 100 UNITS/ML 3 ML PEN SC SCH ×4 (08:21→21:32)
[2017-02-27 08:23] LABS: URINE APPEARANCE CLEAR (CLEAR); URINE BILIRUBIN NEG (NEG); URINE COLOR YELLOW; URINE EPITHELIAL CELL AUTO >30 /lpf (0-5); URINE NITRITE POS (NEG); URINE PH 8.5 (4.5-7.5); UROBILINOGEN NEG (NEG)
[2017-02-27 08:30] LABS: MANUAL MICROSCOPIC REQUIRED? NO; REVIEW REQ? NO; SULFASALICYLIC ACID POS (NEG)
[2017-02-27] MEDS ORDERED: GABAPENTIN 100 MG CAP PO SCH (09:00)
--- NOTE | 2017-02-27 10:37 | Dialysis Progress Note ---
Hemodialysis Note Date of Service Feb 27, 2017. Chief Complaint ESRD on HD Subjective Mrs. Patrick was seen & examined during HD this morning. Her AVF is functioning well. She is hemodynamically stable. Mrs. Patrick reports that her chest discomfort has resolved. She is tolerating a renal diet. Her only complaint is that she is still on O2. She has not required oxygen while at home. Review of Systems Constitutional: No fever Cardiovascular: No chest pain Respiratory: + dyspnea on exertion, No productive cough, No dyspnea at rest Abdomen: No pain, No nausea, No vomiting Extremities: No leg edema A complete review of systems was performed. Pertinent positives are noted above. All other systems are negative. Vital Signs Last 8 Hrs Date Time Temp Pulse Resp B/P (MAP) Pulse Ox O2 Delivery O2 Flow Rate FiO2 02/27/17 09:30 57 111/53 02/27/17 09:17 59 109/53 02/27/17 09:06 37.2 59 121/57 (78) 02/27/17 08:08 36.9 60 20 129/75 (93) 93 Nasal Cannula 3.0 02/27/17 08:00 Room Air 3.0 02/27/17 04:00 93 Nasal Cannula 3.0 02/27/17 03:07 37.2 55 18 99/53 (68) 93 Nasal Cannula 3.0 Last Recorded Weight Weight (Kilograms): 98.000 Physical Exam General Appearance: no apparent distress Head: normocephalic, atraumatic Eyes: PERRL, EOMI Neck: no adenopathy Respiratory/Chest: lungs clear, no respiratory distress Cardiovascular: regular rate, rhythm, + pertinent finding (no rub) Abdomen/GI: normal bowel sounds, non tender, soft Extremities/Musculoskelatal: no calf tenderness, no pedal edema Neurologic/Psych: alert, oriented x 3 Social History Smoking Status: Never smoker Smokeless Tobacco Use: No Alcohol Use: none Drug Use: none Marital Status: Housing Status: lives with family Occupation: retired Laboratory Results Past 24 Hours 02/27/17 06:05 Red Blood Count 3.27, Mean Corpuscular Volume 100.9, Mean Corpuscular Hemoglobin 30.3, Mean Corpuscular Hemoglobin Concent 30.0, Mean Platelet Volume 9.6, Neutrophils (%) (Auto) 71.3, Lymphocytes (%) (Auto) 15.3, Monocytes (%) ( Auto) 11.6, Eosinophils (%) (Auto) 1.4, Basophils (%) (Auto) 0.3, Neutrophils # (Auto) 6.69, Lymphocytes # (Auto) 1.44, Monocytes # (Auto) 1.09, Eosinophils # ( Auto) 0.13, Basophils # (Auto) 0.03 02/27/17 06:05 Test 02/26/17 11:18 02/26/17 17:05 02/26/17 20:33 02/27/17 06:05 Bedside Glucose 175 mg/dl (70-90) 154 mg/dl (70-90) 212 mg/dl (70-90) White Blood Count 9.39 K/uL (4.8-10.8) Red Blood Count 3.27 M/uL (4.2-5.4) Hemoglobin 9.9 g/dL (12.0-16.0) Hematocrit 33.0 % (37-47) Mean Corpuscular Volume 100.9 fL (80-100) Mean Corpuscular Hemoglobin 30.3 pg (25-34) Mean Corpuscular Hemoglobin Concent 30.0 g/dl (32-36) Platelet Count 135 K/uL (130-400) Mean Platelet Volume 9.6 fL (7.4-10.4) Neutrophils (%) (Auto) 71.3 % Lymphocytes (%) (Auto) 15.3 % Monocytes (%) (Auto) 11.6 % Eosinophils (%) (Auto) 1.4 % Basophils (%) (Auto) 0.3 % Neutrophils # (Auto) 6.69 K/uL (1.4-6.5) Lymphocytes # (Auto) 1.44 K/uL (1.2-3.4) Monocytes # (Auto) 1.09 K/uL (0.11-0.59) Eosinophils # (Auto) 0.13 K/uL (0-0.5) Basophils # (Auto) 0.03 K/uL (0-0.2) RDW Standard Deviation 54.5 fL (36.4-46.3) RDW Coefficient of Variation 14.9 % (11.5-14.5) Immature Granulocyte % (Auto) 0.1 % Immature Granulocyte # (Auto) 0.01 K/uL (0.00-0.02) Prothrombin Time 11.6 SECONDS (9.0-12.0) Prothromb Time International Ratio 1.1 (0.9-1.1) Activated Partial Thromboplast Time 33.6 SECONDS (21.0-31.0) Partial Thromboplastin Ratio 1.3 Anion Gap 7.0 mmol/L (3-11) Est Creatinine Clear Calc Drug Dose 10.9 ml/min Estimated GFR () 8.9 Estimated GFR (Non- 7.7 BUN/Creatinine Ratio 8.7 (10-20) Calcium Level 8.8 mg/dl (8.5-10.1) Magnesium Level 2.6 mg/dl (1.8-2.4) Test 02/27/17 06:56 02/27/17 08:00 02/27/17 10:22 Bedside Glucose 133 mg/dl (70-90) Urine Color YELLOW Urine Appearance CLEAR (CLEAR) Urine pH 8.5 (4.5-7.5) Urine Specific [place] 1.030 (1.000-1.030) Urine Protein 2+ (NEG) Urine Glucose (UA) NEG (NEG) Urine Ketones NEG (NEG) Urine Occult Blood NEG (NEG) Urine Nitrite POS (NEG) Urine Bilirubin NEG (NEG) Urine Urobilinogen NEG (NEG) Urine Leukocyte Esterase TRACE (NEG) Urine WBC (Auto) 1-5 /hpf (0-5) Urine RBC (Auto) 0-4 /hpf (0-4) Urine Hyaline Casts (Auto) 1-5 /lpf (0-5) Urine Epithelial Cells (Auto) >30 /lpf (0-5) Urine Bacteria (Auto) 2+ (NEG) Allergies Coded Allergies: Lisinopril (Verified Adverse Reaction, Intermediate, cough, 02/25/17) Medications Current Inpatient Medications Medications (Trade) Dose Ordered Sig/Vaibhav Route Start Time Stop Time Status Last Admin Dose Admin Ioversol (Optiray 320) 125 ml UD PRN IV 02/25/17 16:15 03/01/17 16:14 Acetaminophen (Tylenol Tab) 650 mg Q4H PRN PO 02/25/17 18:00 03/27/17 17:59 02/26/17 15:04 650 MG Nitroglycerin (Nitrostat Tab) 0.4 mg UD PRN SL 02/25/17 18:00 03/27/17 17:59 02/25/17 22:05 0.4 MG Nitroglycerin (Nitroglycerin 2% Oint) 1 inch Q6H EXT 02/25/17 18:00 03/27/17 17:59 02/27/17 06:24 1 INCH Aspirin (Ecotrin Tab) 81 mg DAILY PO 02/26/17 09:00 03/28/17 08:59 02/27/17 08:16 81 MG Atorvastatin Calcium (Lipitor Tab) 20 mg HS PO 02/25/17 21:00 03/27/17 20:59 02/26/17 20:40 20 MG Calcium Acetate (Phoslo Cap) 667 mg TIDM PO 02/25/17 18:00 03/27/17 17:59 02/27/17 08:14 667 MG Carvedilol (Coreg Tab) 25 mg BID PO 02/25/17 21:00 03/27/17 20:59 02/27/17 08:16 25 MG Citalopram Hydrobromide (celeXA TAB) 40 mg HS PO 02/25/17 21:00 03/27/17 20:59 02/26/17 20:40 40 MG Felodipine (Plendil Tabcr) 5 mg TID PO 02/25/17 21:00 03/27/17 20:59 02/27/17 08:17 5 MG Gabapentin (Neurontin Cap) 100 mg TuThSa@0900 PO 02/27/17 09:00 03/29/17 08:59 02/27/17 08:17 100 MG Hydralazine HCl (Apresoline Tab) 25 mg TID PO 02/25/17 21:00 03/27/17 20:59 02/27/17 08:15 25 MG Insulin Detemir (Levemir Flexpen/ FlexTouch) 15 units Q12 SC 02/25/17 21:00 03/27/17 20:59 02/27/17 08:19 15 UNITS Levothyroxine Sodium (Synthroid Tab) 100 mcg DAILYBB PO 02/26/17 06:00 03/28/17 06:59 02/27/17 06:24 100 MCG Pantoprazole Sodium (Protonix Tab) 40 mg BID PO 02/25/17 21:00 03/27/17 20:59 02/27/17 08:17 40 MG Vitamin B Complex/ Vit C/Folic Acid (Nephrocaps) 1 cap QAM PO 02/26/17 09:00 03/28/17 08:59 02/27/17 08:17 1 CAP Lactulose (Chronulac Syrup) 10 gm QAM PO 02/26/17 09:00 03/28/17 08:59 02/27/17 08:16 10 GM Magnesium Oxide (Mag-Ox Tab) 400 mg BID PO 02/25/17 21:00 03/27/17 20:59 02/27/17 08:17 400 MG Ondansetron HCl (Zofran Inj) 4 mg Q6H PRN IV 02/25/17 18:00 03/27/17 17:59 Insulin Aspart (novoLOG ASPART) SLIDING SCALE If C... ACHS SC 02/25/17 21:00 03/27/17 20:59 02/27/17 08:21 3 UNITS Glucose (Glucose 40% Gel) UD PRN PO 02/25/17 18:00 03/27/17 17:59 Glucose (Glucose Chew Tab) 1 tabs UD PRN PO 02/25/17 18:00 03/27/17 17:59 Dextrose (Dextrose 50% 50ML Syringe) 50 ml UD PRN IV 02/25/17 18:00 03/27/17 17:59 Glucagon (Glucagon Inj) 1 mg UD PRN SQ 02/25/17 18:00 03/27/17 17:59 Al Hydroxide/Mg Hydroxide/ Lidocaine HCl/ Barcode Q4H PRN PO 02/26/17 02:45 03/28/17 02:44 02/26/17 07:53 24 ML Sucralfate (Carafate Susp) 1 gm QID PO 02/26/17 13:00 03/28/17 12:59 02/27/17 08:15 1 GM Ketorolac Tromethamine (Toradol Tab) 10 mg TID PO 02/26/17 14:00 03/03/17 13:59 02/27/17 08:18 10 MG Impression (1) End stage renal disease (2) Dependent on hemodialysis (3) Chest pain (4) Diabetes mellitus (5) Essential hypertension Mrs. Shelvia Darnell is a 71-year-old female with ESRD due to DM and HTN. She was admitted to the hospital for evaluation of chest/epigastric abdominal pain. Symptoms started after eating. She also describes dysphagia with liquids and solids over the past couple of months. She has vomited after eating on other occasions. Patient has stable chronic elevation of troponin. CXR and CTA of the chest were reviewed. EKG without acute changes. TTE pending. Medical history is notable for removal of a gastric band in September of 2015 for persistent epigastric pain and discomfort. Patient has ESRD due to diabetic nephropathy and hypertensive nephrosclerosis. She has been on hemodialysis since 09/30/15. She dialyzes TTS at [facility] dialysis [facility]. PMH - ESRD due to diabetic nephropathy/hypertensive nephrosclerosis (TTS HD at [facility]), T2DM, HTN, obesity, h/o gastric banding, hypercholesterolemia, hypothyroidism, arthritis, proteinuria and depression. Recommendations END STAGE RENAL DISEASE: -- Patient was seen & examined during HD this morning. She is medically stable at this time. No change to current HD prescription. -- 02/25 CXR film reviewed this am. No CHF. Will attempt 2 L UF w/ HD today -- Monitor serial PRP -- Nephrovite one po daily if able to swallow tablets HYPERTENSION: -- BP checked and found to be appropriate ANEMIA: -- Will provide epogen w/ HD treatments EPIGASTRIC DISCOMFORT: -- GI consultation reviewed. EGD 1 year ago was negative. PPI & Carafate prescribed. Question need for repeat study -- Cardiology following. Awaiting echocardiogram results.
--- NOTE | 2017-02-27 13:56 | Cardiology Follow-Up ---
Subjective Date of Service: Feb 27, 2017. Pt evaluation today including: conversation w/ patient, physical exam, lab review, review of studies, conversation w/ market consultant, review of inpatient medication list History of Present Illness Today she feels well with no further chest discomfort. The symptoms were markedly diminished after the first dose of Toradol and were eliminated subsequently. She has no other complaints. Social History Smoking Status: Never Smoker History of Alcohol Use: No Review of Systems Respiratory: No cough, No sputum Cardiac: + chest pain, No orthopnea Medications Cardiovascular: Item Value Date Time Ketorolac 10 mg 02/26/17 1400 Tromethamine TID/PO 02/27/17 0818 (Toradol Tab) Aspirin 81 mg 02/26/17 0900 (Ecotrin Tab) DAILY/PO 02/27/17 0816 Carvedilol 25 mg 02/25/17 2100 (Coreg Tab) BID/PO 02/27/17 0816 Atorvastatin 20 mg 02/25/17 2100 Calcium HS/PO 02/26/17 2040 (Lipitor Tab) Objective Vital Signs Past 12 Hours Date Time Temp Pulse Resp B/P (MAP) Pulse Ox O2 Delivery O2 Flow Rate FiO2 02/27/17 11:30 56 96/44 02/27/17 11:15 57 97/44 02/27/17 11:00 57 105/53 02/27/17 10:45 59 110/53 02/27/17 10:30 58 121/56 02/27/17 10:15 58 97/42 02/27/17 10:00 57 118/59 02/27/17 09:45 58 107/50 02/27/17 09:30 57 111/53 02/27/17 09:17 59 109/53 02/27/17 09:06 37.2 59 121/57 (78) 02/27/17 08:08 36.9 60 20 129/75 (93) 93 Nasal Cannula 3.0 02/27/17 08:00 Room Air 3.0 02/27/17 04:00 93 Nasal Cannula 3.0 02/27/17 03:07 37.2 55 18 99/53 (68) 93 Nasal Cannula 3.0 Last Recorded Weight-Kilograms: 98.000 Physical Exam Constitutional: Level of Distress: NAD Lungs: Auscultation: breath sounds normal Cardiovascular: Heart Auscultation: RRR, no rubs Extremities: no edema General: No acute distress. Alert and oriented. HEENT: Head is normal. PERRLA. EOMI. Sclera anicteric. Ears, nose and throat unremarkable. Neck: No JVD or carotid bruit. Lungs: Clear to auscultation bilaterally without rales, rhonchi or wheezes. Cardiac: Regular rate and rhythm. S1 and S2 normal. Grade 1-2/6 systolic ejection murmur right sternal border. No diastolic murmur, gallop or rub. Chest wall tenderness with palpation. Abdomen: Soft without guarding. Tenderness in the midepigastric region to palpation. Bowel sounds normal. No mass. No abdominal bruit. Extremities: Without cyanosis, clubbing or peripheral edema. Right wrist AVF. Skin: No rash or abnormal lesions. Normal turgor. Neurologic: No focal deficits. Psychiatric: Affect seems appropriate. Data Laboratory Results: Last 24 Hours Test 02/26/17 17:05 02/26/17 20:33 02/27/17 06:05 02/27/17 06:56 Bedside Glucose 154 mg/dl 212 mg/dl 133 mg/dl White Blood Count 9.39 K/uL Red Blood Count 3.27 M/uL Hemoglobin 9.9 g/dL Hematocrit 33.0 % Mean Corpuscular Volume 100.9 fL Mean Corpuscular Hemoglobin 30.3 pg Mean Corpuscular Hemoglobin Concent 30.0 g/dl Platelet Count 135 K/uL Mean Platelet Volume 9.6 fL Neutrophils (%) (Auto) 71.3 % Lymphocytes (%) (Auto) 15.3 % Monocytes (%) (Auto) 11.6 % Eosinophils (%) (Auto) 1.4 % Basophils (%) (Auto) 0.3 % Neutrophils # (Auto) 6.69 K/uL Lymphocytes # (Auto) 1.44 K/uL Monocytes # (Auto) 1.09 K/uL Eosinophils # (Auto) 0.13 K/uL Basophils # (Auto) 0.03 K/uL RDW Standard Deviation 54.5 fL RDW Coefficient of Variation 14.9 % Immature Granulocyte % (Auto) 0.1 % Immature Granulocyte # (Auto) 0.01 K/uL Prothrombin Time 11.6 SECONDS Prothromb Time International Ratio 1.1 Activated Partial Thromboplast Time 33.6 SECONDS Partial Thromboplastin Ratio 1.3 Sodium Level 133 mmol/L Potassium Level 4.6 mmol/L Chloride Level 94 mmol/L Carbon Dioxide Level 32 mmol/L Anion Gap 7.0 mmol/L Blood Urea Nitrogen 45 mg/dl Creatinine 5.20 mg/dl Est Creatinine Clear Calc Drug Dose 10.9 ml/min Estimated GFR () 8.9 Estimated GFR (Non- 7.7 BUN/Creatinine Ratio 8.7 Random Glucose 113 mg/dl Calcium Level 8.8 mg/dl Magnesium Level 2.6 mg/dl Test 02/27/17 08:00 02/27/17 10:34 02/27/17 10:53 Urine Color YELLOW Urine Appearance CLEAR Urine pH 8.5 Urine Specific [place] 1.030 Urine Protein 2+ Urine Glucose (UA) NEG Urine Ketones NEG Urine Occult Blood NEG Urine Nitrite POS Urine Bilirubin NEG Urine Urobilinogen NEG Urine Leukocyte Esterase TRACE Urine WBC (Auto) 1-5 /hpf Urine RBC (Auto) 0-4 /hpf Urine Hyaline Casts (Auto) 1-5 /lpf Urine Epithelial Cells (Auto) >30 /lpf Urine Bacteria (Auto) 2+ Troponin I 0.077 ng/ml Bedside Glucose 134 mg/dl EKG: Today's electrocardiogram shows inferior T-wave inversion and lateral T- wave flattening. Telemetry reviewed: Sinus rhythm and sinus bradycardia Assessment and Plan #1. Chest discomfort: Although it is hard to be sure what is causing her discomfort it does not appear ischemic based on lack of an enzyme rise (a repeat troponin today on dialysis did not show any elevation) despite the electrocardiographic changes. The response to Toradol (although it is pain killers well) suggest that this may be pericarditis. #2. Pericarditis: I'm going to switch her to Motrin to use as an anti- inflammatory agent. I will check another electrocardiogram tomorrow and see whether her symptoms are controlled on Motrin alone and discontinuation of the Toradol. Thank you for allowing me to participate in her care.
[2017-02-27] MEDS: IBUPROFEN 600 MG TAB PO SCH ×2 (14:30→21:23)
[2017-02-27] MEDS ORDERED: NURSING VERBAL MED ORDER ONE (16:00)
--- NOTE | 2017-02-27 17:41 | Progress Note ---
Subjective Date of Service: Feb 27, 2017. Subjective I saw patient today in the afternoon. Patient states that she had a headache after being on nitro, however, once she removed it, she reported nausea. And was unable to tolerate her dinner. Patient denies any chest pain, and continues to complain of back pain which is located midline around T9. Pain is dull, non posiition, non pleuritic, non radiating, moderate in intensity. Problem List Medical Problems: (1) Contusion of knee, right Status: Acute (2) Facial contusion Status: Acute (3) Fever Status: Acute (4) Lactic acidosis Status: Acute (5) Leukocytosis Status: Acute (6) Precordial chest pain Status: Acute (7) SIRS (systemic inflammatory response syndrome) Status: Acute (8) Substernal chest pain Status: Acute Review of Systems Constitutional: No fever, No chills Respiratory: No cough, No sputum Cardiac: + chest pain, No orthopnea, No edema Abdomen: No diarrhea, No constipation Musculoskeletal: + muscle pain Female : No dysuria Neurologic: No memory loss, No paralysis Psychiatric: No depression symptoms Endo: No fatigue All Other Systems: Reviewed and Negative Medications Current Inpatient Medications Medications (Trade) Dose Ordered Sig/Vaibhav Route Start Time Stop Time Status Last Admin Dose Admin Ioversol (Optiray 320) 125 ml UD PRN IV 02/25/17 16:15 03/01/17 16:14 Acetaminophen (Tylenol Tab) 650 mg Q4H PRN PO 02/25/17 18:00 03/27/17 17:59 02/27/17 22:18 650 MG Nitroglycerin (Nitrostat Tab) 0.4 mg UD PRN SL 02/25/17 18:00 03/27/17 17:59 02/25/17 22:05 0.4 MG Aspirin (Ecotrin Tab) 81 mg DAILY PO 02/26/17 09:00 03/28/17 08:59 02/27/17 08:16 81 MG Atorvastatin Calcium (Lipitor Tab) 20 mg HS PO 02/25/17 21:00 03/27/17 20:59 02/27/17 21:24 20 MG Calcium Acetate (Phoslo Cap) 667 mg TIDM PO 02/25/17 18:00 03/27/17 17:59 02/27/17 17:46 667 MG Carvedilol (Coreg Tab) 25 mg BID PO 02/25/17 21:00 03/27/17 20:59 02/27/17 21:21 25 MG Citalopram Hydrobromide (celeXA TAB) 40 mg HS PO 02/25/17 21:00 03/27/17 20:59 02/27/17 21:24 40 MG Felodipine (Plendil Tabcr) 5 mg TID PO 02/25/17 21:00 03/27/17 20:59 02/27/17 21:22 5 MG Gabapentin (Neurontin Cap) 100 mg TuThSa@0900 PO 02/27/17 09:00 03/29/17 08:59 02/27/17 08:17 100 MG Hydralazine HCl (Apresoline Tab) 25 mg TID PO 02/25/17 21:00 03/27/17 20:59 02/27/17 21:24 25 MG Insulin Detemir (Levemir Flexpen/ FlexTouch) 15 units Q12 SC 02/25/17 21:00 03/27/17 20:59 02/27/17 21:33 15 UNITS Levothyroxine Sodium (Synthroid Tab) 100 mcg DAILYBB PO 02/26/17 06:00 03/28/17 06:59 02/28/17 06:09 100 MCG Pantoprazole Sodium (Protonix Tab) 40 mg BID PO 02/25/17 21:00 03/27/17 20:59 02/27/17 21:24 40 MG Vitamin B Complex/ Vit C/Folic Acid (Nephrocaps) 1 cap QAM PO 02/26/17 09:00 03/28/17 08:59 02/27/17 08:17 1 CAP Lactulose (Chronulac Syrup) 10 gm QAM PO 02/26/17 09:00 03/28/17 08:59 02/27/17 08:16 10 GM Magnesium Oxide (Mag-Ox Tab) 400 mg BID PO 02/25/17 21:00 03/27/17 20:59 02/27/17 21:21 400 MG Ondansetron HCl (Zofran Inj) 4 mg Q6H PRN IV 02/25/17 18:00 03/27/17 17:59 Insulin Aspart (novoLOG ASPART) SLIDING SCALE If C... ACHS SC 02/25/17 21:00 03/27/17 20:59 02/27/17 21:32 2 UNITS Glucose (Glucose 40% Gel) UD PRN PO 02/25/17 18:00 03/27/17 17:59 Glucose (Glucose Chew Tab) 1 tabs UD PRN PO 02/25/17 18:00 03/27/17 17:59 Dextrose (Dextrose 50% 50ML Syringe) 50 ml UD PRN IV 02/25/17 18:00 03/27/17 17:59 Glucagon (Glucagon Inj) 1 mg UD PRN SQ 02/25/17 18:00 03/27/17 17:59 Al Hydroxide/Mg Hydroxide/ Lidocaine HCl/ Barcode Q4H PRN PO 02/26/17 02:45 03/28/17 02:44 02/26/17 07:53 24 ML Sucralfate (Carafate Susp) 1 gm QID PO 02/26/17 13:00 03/28/17 12:59 02/27/17 21:25 1 GM Ibuprofen (Motrin Tab) 600 mg TID PO 02/27/17 14:00 03/29/17 13:59 02/27/17 21:23 600 MG Objective Vital Signs Date Time Temp Pulse Resp B/P (MAP) Pulse Ox O2 Delivery O2 Flow Rate FiO2 02/27/17 16:00 Nasal Cannula 3.0 02/27/17 15:42 36.5 57 20 128/65 (86) 95 Nasal Cannula 2.0 02/27/17 13:45 Nasal Cannula 3.0 02/27/17 13:35 37.0 59 113/45 (67) 02/27/17 13:01 56 74/58 02/27/17 12:45 55 90/40 02/27/17 12:30 55 105/50 02/27/17 12:15 54 96/41 02/27/17 12:00 56 111/48 02/27/17 11:45 57 102/49 02/27/17 11:30 56 96/44 02/27/17 11:15 57 97/44 02/27/17 11:00 57 105/53 02/27/17 10:45 59 110/53 02/27/17 10:30 58 121/56 02/27/17 10:15 58 97/42 02/27/17 10:00 57 118/59 02/27/17 09:45 58 107/50 02/27/17 09:30 57 111/53 02/27/17 09:17 59 109/53 02/27/17 09:06 37.2 59 121/57 (78) 02/27/17 08:08 36.9 60 20 129/75 (93) 93 Nasal Cannula 3.0 02/27/17 08:00 Nasal Cannula 3.0 02/27/17 04:00 93 Nasal Cannula 3.0 02/27/17 03:07 37.2 55 18 99/53 (68) 93 Nasal Cannula 3.0 02/27/17 00:00 Nasal Cannula 3.0 02/26/17 23:52 37.7 62 18 111/66 (81) 93 Nasal Cannula 3.0 02/26/17 19:47 37.2 57 20 119/75 (90) 94 Room Air Physical Exam General Appearance: WD/WN, no apparent distress Neck: supple, no adenopathy, thyroid normal Respiratory/Chest: chest non-tender, lungs clear, normal breath sounds Cardiovascular: no edema, no gallop, + bradycardia Abdomen: normal bowel sounds, non tender, soft Extremities: normal range of motion Skin: normal color, warm/dry Lymphatic: no adenopathy Laboratory Results Last 24 Hours Test 02/26/17 20:33 02/27/17 06:05 02/27/17 06:56 02/27/17 08:00 Bedside Glucose 212 mg/dl 133 mg/dl White Blood Count 9.39 K/uL Red Blood Count 3.27 M/uL Hemoglobin 9.9 g/dL Hematocrit 33.0 % Mean Corpuscular Volume 100.9 fL Mean Corpuscular Hemoglobin 30.3 pg Mean Corpuscular Hemoglobin Concent 30.0 g/dl Platelet Count 135 K/uL Mean Platelet Volume 9.6 fL Neutrophils (%) (Auto) 71.3 % Lymphocytes (%) (Auto) 15.3 % Monocytes (%) (Auto) 11.6 % Eosinophils (%) (Auto) 1.4 % Basophils (%) (Auto) 0.3 % Neutrophils # (Auto) 6.69 K/uL Lymphocytes # (Auto) 1.44 K/uL Monocytes # (Auto) 1.09 K/uL Eosinophils # (Auto) 0.13 K/uL Basophils # (Auto) 0.03 K/uL RDW Standard Deviation 54.5 fL RDW Coefficient of Variation 14.9 % Immature Granulocyte % (Auto) 0.1 % Immature Granulocyte # (Auto) 0.01 K/uL Prothrombin Time 11.6 SECONDS Prothromb Time International Ratio 1.1 Activated Partial Thromboplast Time 33.6 SECONDS Partial Thromboplastin Ratio 1.3 Sodium Level 133 mmol/L Potassium Level 4.6 mmol/L Chloride Level 94 mmol/L Carbon Dioxide Level 32 mmol/L Anion Gap 7.0 mmol/L Blood Urea Nitrogen 45 mg/dl Creatinine 5.20 mg/dl Est Creatinine Clear Calc Drug Dose 10.9 ml/min Estimated GFR () 8.9 Estimated GFR (Non- 7.7 BUN/Creatinine Ratio 8.7 Random Glucose 113 mg/dl Calcium Level 8.8 mg/dl Magnesium Level 2.6 mg/dl Urine Color YELLOW Urine Appearance CLEAR Urine pH 8.5 Urine Specific [place] 1.030 Urine Protein 2+ Urine Glucose (UA) NEG Urine Ketones NEG Urine Occult Blood NEG Urine Nitrite POS Urine Bilirubin NEG Urine Urobilinogen NEG Urine Leukocyte Esterase TRACE Urine WBC (Auto) 1-5 /hpf Urine RBC (Auto) 0-4 /hpf Urine Hyaline Casts (Auto) 1-5 /lpf Urine Epithelial Cells (Auto) >30 /lpf Urine Bacteria (Auto) 2+ Test 02/27/17 10:34 02/27/17 10:53 02/27/17 16:04 Troponin I 0.077 ng/ml Bedside Glucose 134 mg/dl 137 mg/dl Assessment and Plan 71 yo female with history of chest pain in the past with chornically mildly elevated troponin is admitted with pleurtitic chest pain. 1. Pericarditis GI and anginal is in the differential, however, after discussion with cardio. Patient has multple clues that point to pericarditis. 1. J waves. 2. Pleuritic chest pain 3. Mild improvement with toradol. Troponin has been gradually decreasing. will continue home meds and will resume ASA in am. Toradol was given and it appears that this helped her chest pain. will give motrin today and assess tomorrow. Continue carvedilol 25 mg by mouth twice a day, felodipine ER 5 mg by mouth 3 times a day, and hydralazine 25 mg by mouth 3 times a day. GI on board. No intervention during hospitalization Increase pantoprazole to 40 mg by mouth twice a day. Diabetes mellitus-- Accu-Cheks before meals and at bedtime with NovoLog coverage per scale. Levemir 15 units subcutaneous every 12 hours. ESRD on HD-- Consult Dr. Stephenson Hyperlipidemia-- Continue atorvastatin by mouth at bedtime. Peripheral neuropathy-- Gabapentin 100 mg by mouth daily before hemodialysis. Hypothyroidism-- Continue levothyroxine sodium 100 g by mouth daily Continue lactulose, mag oxide and Nephrocaps. update 1830 Patient has been bradycardic. Informed Cardio that patient is nausea, but is watching the game comfortably with normal BP 100/60s. Heart rate is 45-48. Continued [facility] stay due to: other (CHEST PAIN) Discharge planning: uncertain
[2017-02-27] MEDS: ATORVASTATIN 20 MG TAB PO SCH (21:24)
[2017-02-27] MEDS: CITALOPRAM 40 MG TAB PO SCH (21:24)
[2017-02-27] MEDS: ACETAMINOPHEN 325 MG TAB PO PRN (22:18)
[2017-02-28] VITALS (7 sets, daily range): BP systolic 96–146; BP diastolic 63–78; PULSE 43–51; TEMP 36.5–36.9; O2SAT 93–99
[2017-02-28] MEDS: LEVOTHYROXINE 100 MCG TAB PO SCH (06:09)
[2017-02-28 06:22] LABS: BASO % 0.3 %; BASO ABS # 0.03 K/uL (0-0.2); COMPLETE YES; EOS % 3.1 %; HEMATOCRIT 32.7 % (37-47); IG% 0.1 %; LYMPH % 15.7 %; LYMPH ABS # 1.41 K/uL (1.2-3.4); MEAN CELL VOLUME 101.6 fL (80-100); MEAN CORPUSCULAR HEMOGLOBIN 30.7 pg (25-34); MEAN CORPUSCULAR HGB CONC 30.3 g/dl (32-36); MONO % 12.9 %; NEUT % 67.9 %; PLATELET COUNT 149 K/uL (130-400); RED BLOOD COUNT 3.22 M/uL (4.2-5.4); WHITE BLOOD COUNT 8.98 K/uL (4.8-10.8)
[2017-02-28 06:39] LABS: PARTIAL THROMBOPLASTIN RATIO 1.3; PROTHROMBIN TIME (PATIENT) 11.2 SECONDS (9.0-12.0)
[2017-02-28 06:59] LABS: BUN/CREATININE RATIO 6.5 (10-20); CALCIUM 9.2 mg/dl (8.5-10.1); CREATININE 4.1 mg/dl (0.60-1.20); MAGNESIUM 2.7 mg/dl (1.8-2.4); POTASSIUM 4.1 mmol/L (3.5-5.1)
[2017-02-28] MEDS: CALCIUM ACETATE 667MG GELCAP PO SCH ×3 (08:08→17:08)
[2017-02-28] MEDS: LACTULOSE SYRUP 10 GM/15 ML BTL 473 ML PO SCH (08:09)
[2017-02-28] MEDS: CARVEDILOL 25 MG TAB PO SCH (08:09)
[2017-02-28] MEDS: SUCRALFATE 1 GM/10 ML UDC PO SCH ×4 (08:09→20:40)
[2017-02-28] MEDS: MAGNESIUM OXIDE 400 MG TAB PO SCH ×2 (08:10→20:36)
[2017-02-28] MEDS: ASPIRIN 81 MG ECTAB PO SCH (08:10)
[2017-02-28] MEDS: FELODIPINE 5 MG TABCR PO SCH ×3 (08:11→20:41)
[2017-02-28] MEDS: NEPHROCAPS PO SCH (08:11)
[2017-02-28] MEDS: IBUPROFEN 600 MG TAB PO SCH ×3 (08:11→20:39)
[2017-02-28] MEDS: PANTOprazole SOD 40 MG TAB PO SCH ×2 (08:11→20:41)
[2017-02-28] MEDS: INSULIN DETEMIR FLEXPEN/FLEX TOUCH 100 UNITS/ML 3ML SC SCH ×2 (08:12→20:45)
[2017-02-28] MEDS: INSULIN ASPART 100 UNITS/ML 3 ML PEN SC SCH ×4 (08:14→20:45)
--- NOTE | 2017-02-28 10:28 | Cardiology Follow-Up ---
Subjective Date of Service: Feb 28, 2017. Pt evaluation today including: conversation w/ patient, physical exam, lab review, review of studies, review of inpatient medication list History of Present Illness Today she has no further chest discomfort. The symptoms were markedly diminished after the first dose of Toradol and were eliminated subsequently. She has been switched to Motrin and continues to be chest pain free. She is however complaining of bilateral neck discomfort. Social History Smoking Status: Never Smoker History of Alcohol Use: No Review of Systems Respiratory: No cough, No sputum Cardiac: + chest pain, No orthopnea, No edema Medications Cardiovascular: Item Value Date Time Carvedilol 12.5 mg 02/28/17 2100 (Coreg Tab) BID/PO Aspirin 81 mg 02/26/17 0900 (Ecotrin Tab) DAILY/PO 02/28/17 0810 Atorvastatin 20 mg 02/25/17 2100 Calcium HS/PO 02/27/17 212 (Lipitor Tab) Hydralazine HCl 25 mg 02/25/17 2100 (Apresoline Tab) TID/PO 02/28/17 0809 Magnesium Oxide 400 mg 02/25/17 2100 (Mag-Ox Tab) BID/PO 02/28/17 0810 Objective Vital Signs Past 12 Hours Date Time Temp Pulse Resp B/P (MAP) Pulse Ox O2 Delivery O2 Flow Rate FiO2 02/28/17 08:00 Room Air 02/28/17 07:33 36.5 43 20 96/63 (74) 99 Nasal Cannula 2.0 02/28/17 03:18 36.9 51 16 125/78 (94) 94 Nasal Cannula 3.0 02/28/17 00:00 99 Nasal Cannula 3.0 02/27/17 23:27 37.0 55 18 131/60 (83) 96 Nasal Cannula 3.0 Last Recorded Weight-Kilograms: 89.500 Physical Exam Constitutional: Level of Distress: NAD Lungs: Auscultation: breath sounds normal Cardiovascular: Heart Auscultation: RRR, no rubs, bradycardia Extremities: no edema Data Laboratory Results: Last 24 Hours Test 02/27/17 10:34 02/27/17 10:53 02/27/17 16:04 02/27/17 18:04 Troponin I 0.077 ng/ml 0.068 ng/ml Bedside Glucose 134 mg/dl 137 mg/dl Test 02/27/17 20:36 02/28/17 05:29 02/28/17 07:12 Bedside Glucose 191 mg/dl 153 mg/dl White Blood Count 8.98 K/uL Red Blood Count 3.22 M/uL Hemoglobin 9.9 g/dL Hematocrit 32.7 % Mean Corpuscular Volume 101.6 fL Mean Corpuscular Hemoglobin 30.7 pg Mean Corpuscular Hemoglobin Concent 30.3 g/dl Platelet Count 149 K/uL Mean Platelet Volume 10.0 fL Neutrophils (%) (Auto) 67.9 % Lymphocytes (%) (Auto) 15.7 % Monocytes (%) (Auto) 12.9 % Eosinophils (%) (Auto) 3.1 % Basophils (%) (Auto) 0.3 % Neutrophils # (Auto) 6.09 K/uL Lymphocytes # (Auto) 1.41 K/uL Monocytes # (Auto) 1.16 K/uL Eosinophils # (Auto) 0.28 K/uL Basophils # (Auto) 0.03 K/uL RDW Standard Deviation 55.5 fL RDW Coefficient of Variation 15.0 % Immature Granulocyte % (Auto) 0.1 % Immature Granulocyte # (Auto) 0.01 K/uL Prothrombin Time 11.2 SECONDS Prothromb Time International Ratio 1.0 Activated Partial Thromboplast Time 33.7 SECONDS Partial Thromboplastin Ratio 1.3 Sodium Level 132 mmol/L Potassium Level 4.1 mmol/L Chloride Level 96 mmol/L Carbon Dioxide Level 28 mmol/L Anion Gap 8.0 mmol/L Blood Urea Nitrogen 27 mg/dl Creatinine 4.10 mg/dl Est Creatinine Clear Calc Drug Dose 13.6 ml/min Estimated GFR () 11.9 Estimated GFR (Non- 10.3 BUN/Creatinine Ratio 6.5 Random Glucose 128 mg/dl Calcium Level 9.2 mg/dl Magnesium Level 2.7 mg/dl Telemetry reviewed: She remains in sinus rhythm but has had a gradually decreased heart rate since admission, into the 30s overnight. Assessment and Plan #1. Chest discomfort: Although it is hard to be sure what is causing her discomfort it does not appear ischemic based on lack of an enzyme rise (a repeat troponin yesterday on dialysis did not show any elevation) despite the electrocardiographic changes. The response to Toradol and Motrin suggest that this may be pericarditis. #2. Pericarditis: This has resolved with nonsteroidal anti-inflammatory agents, I would recommend continuing Motrin. #3. Bradycardia: The cause of this is uncertain, it has been a gradual trend since admission. I wonder if her current dose of carvedilol (which is what our office chart suggests she is taking) may be more than she is taking at home. Agree with holding carvedilol this morning and resuming a lower dose this evening. Thank you for allowing me to participate in her care.
--- NOTE | 2017-02-28 11:17 | Nephrology Progress Note ---
Nephrology Progress Note Date of Service Feb 28, 2017. Chief Complaint ESRD on HD Subjective Mrs. Patrick was seen & examined in the PCU this morning. She was dialyzed for 3 hr 45 min yesterday. 1.9 L UF obtained. Treatment terminated 15 min early due to relative hypotension w/ SBP 74 mm HG. SBP improved to 113 mmHG after blood was returned. This morning Mrs. Patrick complains of muscle spasm involving her neck. She denies angina, abdominal pain or dyspnea. Review of Systems Constitutional: No fever Cardiovascular: No chest pain Respiratory: No dyspnea at rest Abdomen: No pain, No nausea Genitourinary - Female: No dysuria Extremities: No leg edema A complete review of systems was performed. Pertinent positives are noted above. All other systems are negative. Vital Signs Last 8 Hrs Date Time Temp Pulse Resp B/P (MAP) Pulse Ox O2 Delivery O2 Flow Rate FiO2 02/28/17 08:00 Room Air 02/28/17 07:33 36.5 43 20 96/63 (74) 99 Nasal Cannula 2.0 02/28/17 03:18 36.9 51 16 125/78 (94) 94 Nasal Cannula 3.0 Last Recorded Weight Weight (Kilograms): 89.500 Physical Exam General Appearance: no apparent distress Head: normocephalic, atraumatic Eyes: PERRL, EOMI Neck: no adenopathy Respiratory/Chest: lungs clear, no respiratory distress Cardiovascular: + bradycardia Abdomen/GI: normal bowel sounds, non tender, soft Extremities/Musculoskelatal: no calf tenderness, no pedal edema Neurologic/Psych: alert, oriented x 3 Family History Diabetes mellitus Heart disease Hypertension Kidney disease Kidney stones Social History Smoking Status: Never smoker Smokeless Tobacco Use: No Alcohol Use: none Drug Use: none Marital Status: Housing Status: lives with family Occupation: retired Laboratory Results Past 24 Hours 02/28/17 05:29 Red Blood Count 3.22, Mean Corpuscular Volume 101.6, Mean Corpuscular Hemoglobin 30.7, Mean Corpuscular Hemoglobin Concent 30.3, Mean Platelet Volume 10.0, Neutrophils (%) (Auto) 67.9, Lymphocytes (%) (Auto) 15.7, Monocytes (%) ( Auto) 12.9, Eosinophils (%) (Auto) 3.1, Basophils (%) (Auto) 0.3, Neutrophils # (Auto) 6.09, Lymphocytes # (Auto) 1.41, Monocytes # (Auto) 1.16, Eosinophils # ( Auto) 0.28, Basophils # (Auto) 0.03 02/28/17 05:29 Test 02/27/17 10:53 02/27/17 16:04 02/27/17 18:04 02/27/17 20:36 Bedside Glucose 134 mg/dl (70-90) 137 mg/dl (70-90) 191 mg/dl (70-90) Troponin I 0.068 ng/ml (0-0.045) Test 02/28/17 05:29 02/28/17 07:12 White Blood Count 8.98 K/uL (4.8-10.8) Red Blood Count 3.22 M/uL (4.2-5.4) Hemoglobin 9.9 g/dL (12.0-16.0) Hematocrit 32.7 % (37-47) Mean Corpuscular Volume 101.6 fL (80-100) Mean Corpuscular Hemoglobin 30.7 pg (25-34) Mean Corpuscular Hemoglobin Concent 30.3 g/dl (32-36) Platelet Count 149 K/uL (130-400) Mean Platelet Volume 10.0 fL (7.4-10.4) Neutrophils (%) (Auto) 67.9 % Lymphocytes (%) (Auto) 15.7 % Monocytes (%) (Auto) 12.9 % Eosinophils (%) (Auto) 3.1 % Basophils (%) (Auto) 0.3 % Neutrophils # (Auto) 6.09 K/uL (1.4-6.5) Lymphocytes # (Auto) 1.41 K/uL (1.2-3.4) Monocytes # (Auto) 1.16 K/uL (0.11-0.59) Eosinophils # (Auto) 0.28 K/uL (0-0.5) Basophils # (Auto) 0.03 K/uL (0-0.2) RDW Standard Deviation 55.5 fL (36.4-46.3) RDW Coefficient of Variation 15.0 % (11.5-14.5) Immature Granulocyte % (Auto) 0.1 % Immature Granulocyte # (Auto) 0.01 K/uL (0.00-0.02) Prothrombin Time 11.2 SECONDS (9.0-12.0) Prothromb Time International Ratio 1.0 (0.9-1.1) Activated Partial Thromboplast Time 33.7 SECONDS (21.0-31.0) Partial Thromboplastin Ratio 1.3 Anion Gap 8.0 mmol/L (3-11) Est Creatinine Clear Calc Drug Dose 13.6 ml/min Estimated GFR () 11.9 Estimated GFR (Non- 10.3 BUN/Creatinine Ratio 6.5 (10-20) Calcium Level 9.2 mg/dl (8.5-10.1) Magnesium Level 2.7 mg/dl (1.8-2.4) Bedside Glucose 153 mg/dl (70-90) Allergies Coded Allergies: Lisinopril (Verified Adverse Reaction, Intermediate, cough, 02/25/17) Medications Current Inpatient Medications Medications (Trade) Dose Ordered Sig/Vaibhav Route Start Time Stop Time Status Last Admin Dose Admin Ioversol (Optiray 320) 125 ml UD PRN IV 02/25/17 16:15 03/01/17 16:14 Acetaminophen (Tylenol Tab) 650 mg Q4H PRN PO 02/25/17 18:00 03/27/17 17:59 02/27/17 22:18 650 MG Nitroglycerin (Nitrostat Tab) 0.4 mg UD PRN SL 02/25/17 18:00 03/27/17 17:59 02/25/17 22:05 0.4 MG Aspirin (Ecotrin Tab) 81 mg DAILY PO 02/26/17 09:00 03/28/17 08:59 02/28/17 08:10 81 MG Atorvastatin Calcium (Lipitor Tab) 20 mg HS PO 02/25/17 21:00 03/27/17 20:59 02/27/17 21:24 20 MG Calcium Acetate (Phoslo Cap) 667 mg TIDM PO 02/25/17 18:00 03/27/17 17:59 02/28/17 08:08 667 MG Citalopram Hydrobromide (celeXA TAB) 40 mg HS PO 02/25/17 21:00 03/27/17 20:59 02/27/17 21:24 40 MG Felodipine (Plendil Tabcr) 5 mg TID PO 02/25/17 21:00 10/28/17 20:59 02/28/17 08:11 5 MG Gabapentin (Neurontin Cap) 100 mg TuThSa@0900 PO 02/27/17 09:00 03/29/17 08:59 02/27/17 08:17 100 MG Hydralazine HCl (Apresoline Tab) 25 mg TID PO 02/25/17 21:00 03/27/17 20:59 02/28/17 08:09 25 MG Insulin Detemir (Levemir Flexpen/ FlexTouch) 15 units Q12 SC 02/25/17 21:00 03/27/17 20:59 02/28/17 08:12 15 UNITS Levothyroxine Sodium (Synthroid Tab) 100 mcg DAILYBB PO 02/26/17 06:00 03/28/17 06:59 02/28/17 06:09 100 MCG Pantoprazole Sodium (Protonix Tab) 40 mg BID PO 02/25/17 21:00 03/27/17 20:59 02/28/17 08:11 40 MG Vitamin B Complex/ Vit C/Folic Acid (Nephrocaps) 1 cap QAM PO 02/26/17 09:00 03/28/17 08:59 02/28/17 08:11 1 CAP Lactulose (Chronulac Syrup) 10 gm QAM PO 02/26/17 09:00 03/28/17 08:59 02/28/17 08:09 10 GM Magnesium Oxide (Mag-Ox Tab) 400 mg BID PO 02/25/17 21:00 03/27/17 20:59 02/28/17 08:10 400 MG Ondansetron HCl (Zofran Inj) 4 mg Q6H PRN IV 02/25/17 18:00 03/27/17 17:59 Insulin Aspart (novoLOG ASPART) SLIDING SCALE If C... ACHS SC 02/25/17 21:00 03/27/17 20:59 02/28/17 08:14 5 UNITS Glucose (Glucose 40% Gel) UD PRN PO 02/25/17 18:00 03/27/17 17:59 Glucose (Glucose Chew Tab) 1 tabs UD PRN PO 02/25/17 18:00 03/27/17 17:59 Dextrose (Dextrose 50% 50ML Syringe) 50 ml UD PRN IV 02/25/17 18:00 03/27/17 17:59 Glucagon (Glucagon Inj) 1 mg UD PRN SQ 02/25/17 18:00 03/27/17 17:59 Al Hydroxide/Mg Hydroxide/ Lidocaine HCl/ Barcode Q4H PRN PO 02/26/17 02:45 03/28/17 02:44 02/26/17 07:53 24 ML Sucralfate (Carafate Susp) 1 gm QID PO 02/26/17 13:00 03/28/17 12:59 02/28/17 08:09 1 GM Ibuprofen (Motrin Tab) 600 mg TID PO 02/27/17 14:00 03/29/17 13:59 02/28/17 08:11 600 MG Carvedilol (Coreg Tab) 12.5 mg BID PO 02/28/17 21:00 03/30/17 20:59 Impression (1) End stage renal disease (2) Dependent on hemodialysis (3) Chest pain (4) Diabetes mellitus (5) Essential hypertension Mrs. Shirley Patrick is a 71-year-old female with ESRD due to DM and HTN. She was admitted to the hospital for evaluation of chest/epigastric abdominal pain. Symptoms started after eating. She also describes dysphagia with liquids and solids over the past couple of months. She has vomited after eating on other occasions. Patient has stable chronic elevation of troponin. CXR and CTA of the chest were reviewed. EKG without acute changes. TTE pending. Medical history is notable for removal of a gastric band in September of 2015 for persistent epigastric pain and discomfort. PMH - ESRD due to diabetic nephropathy/hypertensive nephrosclerosis (TTS HD at [facility]), T2DM, HTN, obesity, h/o gastric banding, hypercholesterolemia, hypothyroidism, arthritis, proteinuria and depression. Recommendations END STAGE RENAL DISEASE: -- Patient was dialyzed yesterday. Volume status is acceptable. No acute indication for HD today. Will reassess in am -- Monitor serial PRP -- Nephrovite one po daily if able to swallow tablets HYPERTENSION: -- BP checked and found to be appropriate ANEMIA: -- Will provide Epogen w/ HD treatments EPIGASTRIC DISCOMFORT: -- GI consultation reviewed. EGD 1 year ago was negative. PPI & Carafate prescribed. Question need for repeat study -- Cardiology recommendations reviewed. Patient is on NSAID therapy for treatment of pericarditis. She will likely require 4 weeks therapy.
--- NOTE | 2017-02-28 20:31 | Progress Note ---
Progress Note Date of Service Feb 28, 2017. Progress Note Notified by nursing that patient recently has sinus procedure by Dr. Ramon DELEON and recently had visit for suture removal. Patient sneezed tonight and there is now a suture protruding from her right nare. There is no bleeding. I looked in the nose, there appears to be one untied and one tied suture in the nasal septum. I attempted to gently apply traction to the untied suture but the patient was in too much discomfort so I stopped. I did trim the loose suture slightly as it was protruding from her nose but there is enough of a tail that ENT should be able to grab it. The site is not oozing or bleeding and that patient is otherwise comfortable. I will leave it up to day team to decide if they want to consult ENT to have it removed or have it addressed on an outpatient basis.
[2017-02-28] MEDS: CARVEDILOL 12.5 MG TAB PO SCH (20:37)
[2017-02-28] MEDS: ATORVASTATIN 20 MG TAB PO SCH (20:39)
[2017-02-28] MEDS: CITALOPRAM 40 MG TAB PO SCH (20:39)
[2017-02-28] MEDS: ACETAMINOPHEN 325 MG TAB PO PRN (21:51)
--- NOTE | 2017-02-28 23:29 | Progress Note ---
Subjective Date of Service: Feb 28, 2017. Subjective Pt evaluation today including: conversation w/ patient, physical exam, chart review, lab review Patient denies any symptoms of chest pain, nausea, vomiting, diarrhea today. Patient reports that her medications have not changed recently. Patient continues to be bradycardic as per nurse. Problem List Medical Problems: (1) Contusion of knee, right Status: Acute (2) Facial contusion Status: Acute (3) Fever Status: Acute (4) Lactic acidosis Status: Acute (5) Leukocytosis Status: Acute (6) Precordial chest pain Status: Acute (7) SIRS (systemic inflammatory response syndrome) Status: Acute (8) Substernal chest pain Status: Acute Review of Systems Constitutional: No fever, No chills ENT: No hearing loss, No unusual epistaxis Respiratory: No cough, No sputum Cardiac: No chest pain, No orthopnea Musculoskeletal: No joint pain Neurologic: No memory loss, No paralysis Endo: No fatigue Skin: No rash, No itch All Other Systems: Reviewed and Negative Medications Current Inpatient Medications Medications (Trade) Dose Ordered Sig/Vaibhav Route Start Time Stop Time Status Last Admin Dose Admin Ioversol (Optiray 320) 125 ml UD PRN IV 02/25/17 16:15 03/01/17 16:14 Acetaminophen (Tylenol Tab) 650 mg Q4H PRN PO 02/25/17 18:00 03/27/17 17:59 02/28/17 21:51 650 MG Nitroglycerin (Nitrostat Tab) 0.4 mg UD PRN SL 02/25/17 18:00 03/27/17 17:59 02/25/17 22:05 0.4 MG Aspirin (Ecotrin Tab) 81 mg DAILY PO 02/26/17 09:00 03/28/17 08:59 02/28/17 08:10 81 MG Atorvastatin Calcium (Lipitor Tab) 20 mg HS PO 02/25/17 21:00 03/27/17 20:59 02/28/17 20:39 20 MG Calcium Acetate (Phoslo Cap) 667 mg TIDM PO 02/25/17 18:00 03/27/17 17:59 02/28/17 17:08 667 MG Citalopram Hydrobromide (celeXA TAB) 40 mg HS PO 02/25/17 21:00 03/27/17 20:59 02/28/17 20:39 40 MG Felodipine (Plendil Tabcr) 5 mg TID PO 02/25/17 21:00 03/27/17 20:59 02/28/17 20:41 5 MG Gabapentin (Neurontin Cap) 100 mg TuThSa@0900 PO 02/27/17 09:00 03/29/17 08:59 02/27/17 08:17 100 MG Hydralazine HCl (Apresoline Tab) 25 mg TID PO 02/25/17 21:00 03/27/17 20:59 02/28/17 20:40 25 MG Insulin Detemir (Levemir Flexpen/ FlexTouch) 15 units Q12 SC 02/25/17 21:00 03/27/17 20:59 02/28/17 20:45 15 UNITS Levothyroxine Sodium (Synthroid Tab) 100 mcg DAILYBB PO 02/26/17 06:00 03/28/17 06:59 02/28/17 06:09 100 MCG Pantoprazole Sodium (Protonix Tab) 40 mg BID PO 02/25/17 21:00 03/27/17 20:59 02/28/17 20:41 40 MG Vitamin B Complex/ Vit C/Folic Acid (Nephrocaps) 1 cap QAM PO 02/26/17 09:00 03/28/17 08:59 02/28/17 08:11 1 CAP Lactulose (Chronulac Syrup) 10 gm QAM PO 02/26/17 09:00 03/28/17 08:59 02/28/17 08:09 10 GM Magnesium Oxide (Mag-Ox Tab) 400 mg BID PO 02/25/17 21:00 03/27/17 20:59 02/28/17 20:36 400 MG Ondansetron HCl (Zofran Inj) 4 mg Q6H PRN IV 02/25/17 18:00 03/27/17 17:59 Insulin Aspart (novoLOG ASPART) SLIDING SCALE If C... ACHS SC 02/25/17 21:00 03/27/17 20:59 02/28/17 20:45 1 UNITS Glucose (Glucose 40% Gel) UD PRN PO 02/25/17 18:00 03/27/17 17:59 Glucose (Glucose Chew Tab) 1 tabs UD PRN PO 02/25/17 18:00 03/27/17 17:59 Dextrose (Dextrose 50% 50ML Syringe) 50 ml UD PRN IV 02/25/17 18:00 03/27/17 17:59 Glucagon (Glucagon Inj) 1 mg UD PRN SQ 02/25/17 18:00 03/27/17 17:59 Al Hydroxide/Mg Hydroxide/ Lidocaine HCl/ Barcode Q4H PRN PO 02/26/17 02:45 03/28/17 02:44 02/26/17 07:53 24 ML Sucralfate (Carafate Susp) 1 gm QID PO 02/26/17 13:00 03/28/17 12:59 02/28/17 20:40 1 GM Ibuprofen (Motrin Tab) 600 mg TID PO 02/27/17 14:00 03/29/17 13:59 02/28/17 20:39 600 MG Carvedilol (Coreg Tab) 12.5 mg BID PO 02/28/17 21:00 03/30/17 20:59 02/28/17 20:37 12.5 MG Objective Vital Signs Date Time Temp Pulse Resp B/P (MAP) Pulse Ox O2 Delivery O2 Flow Rate FiO2 02/28/17 19:42 36.8 48 20 146/73 (97) 94 Room Air 02/28/17 16:00 Room Air 02/28/17 15:37 36.7 47 16 135/78 (97) 93 Room Air 02/28/17 12:27 36.7 51 136/77 (96) 94 Room Air 02/28/17 12:00 Room Air 02/28/17 08:00 Room Air 02/28/17 07:33 36.5 43 20 96/63 (74) 99 Nasal Cannula 2.0 02/28/17 03:18 36.9 51 16 125/78 (94) 94 Nasal Cannula 3.0 02/28/17 00:00 99 Nasal Cannula 3.0 02/27/17 23:27 37.0 55 18 131/60 (83) 96 Nasal Cannula 3.0 Physical Exam Comments: General Appearance: WD/WN, no apparent distress Neck: supple, no adenopathy, thyroid normal Respiratory/Chest: chest non-tender, lungs clear, normal breath sounds Cardiovascular: no edema, no gallop, + bradycardia Abdomen: normal bowel sounds, non tender, soft Extremities: normal range of motion Skin: normal color, warm/dry Lymphatic: no adenopathy Laboratory Results Last 24 Hours Test 02/28/17 05:29 02/28/17 07:12 02/28/17 10:35 02/28/17 16:27 White Blood Count 8.98 K/uL Red Blood Count 3.22 M/uL Hemoglobin 9.9 g/dL Hematocrit 32.7 % Mean Corpuscular Volume 101.6 fL Mean Corpuscular Hemoglobin 30.7 pg Mean Corpuscular Hemoglobin Concent 30.3 g/dl Platelet Count 149 K/uL Mean Platelet Volume 10.0 fL Neutrophils (%) (Auto) 67.9 % Lymphocytes (%) (Auto) 15.7 % Monocytes (%) (Auto) 12.9 % Eosinophils (%) (Auto) 3.1 % Basophils (%) (Auto) 0.3 % Neutrophils # (Auto) 6.09 K/uL Lymphocytes # (Auto) 1.41 K/uL Monocytes # (Auto) 1.16 K/uL Eosinophils # (Auto) 0.28 K/uL Basophils # (Auto) 0.03 K/uL RDW Standard Deviation 55.5 fL RDW Coefficient of Variation 15.0 % Immature Granulocyte % (Auto) 0.1 % Immature Granulocyte # (Auto) 0.01 K/uL Prothrombin Time 11.2 SECONDS Prothromb Time International Ratio 1.0 Activated Partial Thromboplast Time 33.7 SECONDS Partial Thromboplastin Ratio 1.3 Sodium Level 132 mmol/L Potassium Level 4.1 mmol/L Chloride Level 96 mmol/L Carbon Dioxide Level 28 mmol/L Anion Gap 8.0 mmol/L Blood Urea Nitrogen 27 mg/dl Creatinine 4.10 mg/dl Est Creatinine Clear Calc Drug Dose 13.6 ml/min Estimated GFR () 11.9 Estimated GFR (Non- 10.3 BUN/Creatinine Ratio 6.5 Random Glucose 128 mg/dl Calcium Level 9.2 mg/dl Magnesium Level 2.7 mg/dl Bedside Glucose 153 mg/dl 192 mg/dl 149 mg/dl Test 02/28/17 20:36 Bedside Glucose 174 mg/dl Assessment and Plan 71 yo female with history of chest pain in the past with chornically mildly elevated troponin is admitted with pleurtitic chest pain. 1. Pericarditis GI and anginal is in the differential, however, after discussion with cardio. Patient has multple clues that point to pericarditis. 1. J waves. 2. Pleuritic chest pain 3. Mild improvement with toradol. Troponin has been gradually decreasing. will continue home meds and will resume ASA in am. Toradol was given and it appears that this helped her chest pain. Patient is now on motrin Hold carvedilol in AM and then change from 25 mg to 12.5mg Continue felodipine ER 5 mg by mouth 3 times a day, and hydralazine 25 mg by mouth 3 times a day. GI on board. No intervention during hospitalization Increase pantoprazole to 40 mg by mouth twice a day. Bradycardia Reason as to why patient is not discharged. will hold beta ramesh. monitor heart rate Recommend calling [facility] to confirm dose of beta ramesh. Pharmacy was closed today. appreciate cardiology input Diabetes mellitus-- Accu-Cheks before meals and at bedtime with NovoLog coverage per scale. Levemir 15 units subcutaneous every 12 hours. ESRD on HD-- Consult Dr. Stephenson Hyperlipidemia-- Continue atorvastatin by mouth at bedtime. Peripheral neuropathy-- Gabapentin 100 mg by mouth daily before hemodialysis. Hypothyroidism-- Continue levothyroxine sodium 100 g by mouth daily Continue lactulose, mag oxide and Nephrocaps. Continued [facility] stay due to: other (CHEST PAIN) Discharge planning: uncertain
[2017-02-28] MEDS ORDERED: MoRPHine SULFATE 2 MG/ML CARP IV STA (23:56)
[2017-03-01] VITALS (24 sets, daily range): BP systolic 118–160; BP diastolic 57–77; PULSE 44–59; TEMP 36.4–36.9; O2SAT 94–99
[2017-03-01] MEDS: LEVOTHYROXINE 100 MCG TAB PO SCH (06:11)
[2017-03-01 07:47] LABS: HEMATOCRIT 34.3 % (37-47); MEAN CELL VOLUME 100.3 fL (80-100); MEAN CORPUSCULAR HGB CONC 30.9 g/dl (32-36); MEAN PLATELET VOLUME 9.9 fL (7.4-10.4); PLATELET COUNT 178 K/uL (130-400); RED BLOOD COUNT 3.42 M/uL (4.2-5.4); WHITE BLOOD COUNT 7.79 K/uL (4.8-10.8)
[2017-03-01 08:37] LABS: BUN/CREATININE RATIO 7.3 (10-20); CALCIUM 9.2 mg/dl (8.5-10.1); CREATININE 5.6 mg/dl (0.60-1.20); POTASSIUM 4.1 mmol/L (3.5-5.1)
[2017-03-01] MEDS: INSULIN ASPART 100 UNITS/ML 3 ML PEN SC SCH ×2 (08:37→14:47)
[2017-03-01] MEDS: CALCIUM ACETATE 667MG GELCAP PO SCH ×2 (08:38→13:56)
[2017-03-01] MEDS: FELODIPINE 5 MG TABCR PO SCH ×2 (08:45→13:58)
[2017-03-01] MEDS: MAGNESIUM OXIDE 400 MG TAB PO SCH (08:45)
[2017-03-01] MEDS: LACTULOSE SYRUP 10 GM/15 ML BTL 473 ML PO SCH (08:45)
[2017-03-01] MEDS: CARVEDILOL 12.5 MG TAB PO SCH (08:45)
[2017-03-01] MEDS: ASPIRIN 81 MG ECTAB PO SCH (08:46)
[2017-03-01] MEDS: NEPHROCAPS PO SCH (08:46)
[2017-03-01] MEDS: PANTOprazole SOD 40 MG TAB PO SCH (08:46)
--- NOTE | 2017-03-01 08:46 | Cardiology Follow-Up ---
Subjective Date of Service: Mar 01, 2017. Pt evaluation today including: conversation w/ patient, physical exam, lab review, review of studies, review of inpatient medication list History of Present Illness Today she feels well, her chest discomfort has resolved on nonsteroidal anti- inflammatory agents. She has not had symptoms related to her bradycardia. She isn't sure of the dose of carvedilol at home, she is confident she is taking it twice a day but isn't sure of the dose. Social History Smoking Status: Never Smoker History of Alcohol Use: No Review of Systems Respiratory: No cough, No sputum Cardiac: No chest pain, No orthopnea Medications Cardiovascular: Item Value Date Time Carvedilol 12.5 mg 02/28/17 2100 (Coreg Tab) BID/PO 02/28/172036 Aspirin 81 mg 02/26/17 0900 (Ecotrin Tab) DAILY/PO 02/28/17 08 Atorvastatin 20 mg 02/25/172099 Calcium HS/PO 02/28/172038 (Lipitor Tab) Felodipine 5 mg 02/25/17 2100 (Plendil Tabcr) TID/PO 02/28/172040 Hydralazine HCl 25 mg 02/25/17 2100 (Apresoline Tab) TID/PO 02/28/172039 Objective Vital Signs Past 12 Hours Date Time Temp Pulse Resp B/P (MAP) Pulse Ox O2 Delivery O2 Flow Rate FiO2 03/01/17 08:04 36.4 46 16 118/64 (82) 94 Room Air 03/01/17 04:00 99 Room Air 03/01/17 03:34 36.6 54 18 143/65 (91) 94 Room Air 03/01/17 00:00 99 Room Air 02/28/17 23:16 36.6 50 18 141/70 (93) 95 Room Air Last Recorded Weight-Kilograms: 93.200 Physical Exam Constitutional: Level of Distress: NAD Lungs: Auscultation: breath sounds normal Cardiovascular: Heart Auscultation: RRR, no rubs, bradycardia Extremities: no edema Data Laboratory Results: Last 24 Hours Test 02/28/17 10:35 02/28/17 16:27 02/28/17 20:36 03/01/17 06:57 Bedside Glucose 192 mg/dl 149 mg/dl 174 mg/dl 127 mg/dl Test 03/01/17 07:35 White Blood Count 7.79 K/uL Red Blood Count 3.42 M/uL Hemoglobin 10.6 g/dL Hematocrit 34.3 % Mean Corpuscular Volume 100.3 fL Mean Corpuscular Hemoglobin 31.0 pg Mean Corpuscular Hemoglobin Concent 30.9 g/dl RDW Standard Deviation 53.4 fL RDW Coefficient of Variation 14.8 % Platelet Count 178 K/uL Mean Platelet Volume 9.9 fL Sodium Level 128 mmol/L Potassium Level 4.1 mmol/L Chloride Level 92 mmol/L Carbon Dioxide Level 26 mmol/L Anion Gap 10.0 mmol/L Blood Urea Nitrogen 41 mg/dl Creatinine 5.60 mg/dl Est Creatinine Clear Calc Drug Dose 9.8 ml/min Estimated GFR () 8.2 Estimated GFR (Non- 7.1 BUN/Creatinine Ratio 7.3 Random Glucose 135 mg/dl Calcium Level 9.2 mg/dl Telemetry reviewed: Sinus bradycardia, heart rate has improved somewhat overnight with reduction in carvedilol. Heart rate currently around 50. Assessment and Plan #1. Chest discomfort: Although it is hard to be sure what is causing her discomfort it does not appear ischemic based on lack of an enzyme rise (a repeat troponin on dialysis did not show any elevation) despite the electrocardiographic changes. The response to Toradol and Motrin suggest that this may be pericarditis. #2. Pericarditis: This has resolved with nonsteroidal anti-inflammatory agents, I would recommend continuing Motrin, I would however reduce the dose. I would recommend sending her home on 400 mg 3 times a day and I will arrange an office visit in several weeks and if she still feels well reduced dose further.. #3. Bradycardia: The cause of this is uncertain, it had been a gradual trend since admission. I wonder if her current dose of carvedilol (which is what our office chart suggests she is taking) may be more than she is taking at home. She isn't sure of her home dose. I would recommend sending her home on 12.5 mg of carvedilol twice a day, hopefully that is not too high a dose. Thank you for allowing me to participate in her care.
[2017-03-01] MEDS: SUCRALFATE 1 GM/10 ML UDC PO SCH ×2 (08:48→13:56)
[2017-03-01] MEDS: INSULIN DETEMIR FLEXPEN/FLEX TOUCH 100 UNITS/ML 3ML SC SCH (08:49)
[2017-03-01] MEDS ORDERED: IBUPROFEN 200 MG TAB PO SCH (09:00)
[2017-03-01] MEDS ORDERED: EPOETIN ALFA 10,000 UNITS/ML VIAL IV. ONE (10:00)
--- NOTE | 2017-03-01 10:44 | Nephrology Progress Note ---
Nephrology Progress Note Date of Service Mar 01, 2017. Chief Complaint ESRD on HD Subjective Mrs. Patrick was seen & examined in the PCU this morning. Her chest pain has resolved. She is tolerating po Motrin without GI upset. Her neck discomfort is subjectively improved. Patient had a recent ENT evaluation. She required trimming of a suture in her right nare last evening. Review of Systems Constitutional: No fever Cardiovascular: No chest pain Respiratory: No dyspnea at rest Abdomen: No pain, No nausea, No vomiting Extremities: No leg edema A complete review of systems was performed. Pertinent positives are noted above. All other systems are negative. Vital Signs Last 8 Hrs Date Time Temp Pulse Resp B/P (MAP) Pulse Ox O2 Delivery O2 Flow Rate FiO2 03/01/17 08:04 36.4 46 16 118/64 (82) 94 Room Air 03/01/17 04:00 99 Room Air 03/01/17 03:34 36.6 54 18 143/65 (91) 94 Room Air Last Recorded Weight Weight (Kilograms): 93.200 Physical Exam General Appearance: no apparent distress Head: normocephalic, atraumatic Eyes: PERRL, EOMI Neck: no adenopathy Respiratory/Chest: lungs clear, no respiratory distress Cardiovascular: regular rate, rhythm Abdomen/GI: normal bowel sounds, non tender, soft Extremities/Musculoskelatal: no calf tenderness, no pedal edema Neurologic/Psych: alert, oriented x 3 Family History Diabetes mellitus Heart disease Hypertension Kidney disease Kidney stones Social History Smoking Status: Never smoker Smokeless Tobacco Use: No Alcohol Use: none Drug Use: none Marital Status: Housing Status: lives with family Occupation: retired Laboratory Results Past 24 Hours 03/01/17 07:35 03/01/17 07:35 Test 02/28/17 16:27 02/28/17 20:36 03/01/17 06:57 03/01/17 07:35 Bedside Glucose 149 mg/dl (70-90) 174 mg/dl (70-90) 127 mg/dl (70-90) Red Blood Count 3.42 M/uL (4.2-5.4) Mean Corpuscular Volume 100.3 fL (80-100) Mean Corpuscular Hemoglobin 31.0 pg (25-34) Mean Corpuscular Hemoglobin Concent 30.9 g/dl (32-36) RDW Standard Deviation 53.4 fL (36.4-46.3) RDW Coefficient of Variation 14.8 % (11.5-14.5) Mean Platelet Volume 9.9 fL (7.4-10.4) Anion Gap 10.0 mmol/L (3-11) Est Creatinine Clear Calc Drug Dose 9.8 ml/min Estimated GFR () 8.2 Estimated GFR (Non- 7.1 BUN/Creatinine Ratio 7.3 (10-20) Calcium Level 9.2 mg/dl (8.5-10.1) Allergies Coded Allergies: Lisinopril (Verified Adverse Reaction, Intermediate, cough, 02/25/17) Medications Current Inpatient Medications Medications (Trade) Dose Ordered Sig/Vaibhav Route Start Time Stop Time Status Last Admin Dose Admin Ioversol (Optiray 320) 125 ml UD PRN IV 02/25/17 16:15 03/01/17 16:14 Acetaminophen (Tylenol Tab) 650 mg Q4H PRN PO 02/25/17 18:00 03/27/17 17:59 02/28/17 21:51 650 MG Nitroglycerin (Nitrostat Tab) 0.4 mg UD PRN SL 02/25/17 18:00 03/27/17 17:59 02/25/17 22:05 0.4 MG Aspirin (Ecotrin Tab) 81 mg DAILY PO 02/26/17 09:00 03/28/17 08:59 03/01/17 08:46 81 MG Atorvastatin Calcium (Lipitor Tab) 20 mg HS PO 02/25/17 21:00 03/27/17 20:59 02/28/17 20:39 20 MG Calcium Acetate (Phoslo Cap) 667 mg TIDM PO 02/25/17 18:00 03/27/17 17:59 03/01/17 08:38 667 MG Citalopram Hydrobromide (celeXA TAB) 40 mg HS PO 02/25/17 21:00 03/27/17 20:59 02/28/17 20:39 40 MG Felodipine (Plendil Tabcr) 5 mg TID PO 02/25/17 21:00 03/27/17 20:59 03/01/17 08:45 5 MG Gabapentin (Neurontin Cap) 100 mg TuThSa@0900 PO 02/27/17 09:00 03/29/17 08:59 02/27/17 08:17 100 MG Hydralazine HCl (Apresoline Tab) 25 mg TID PO 02/25/17 21:00 03/27/17 20:59 03/01/17 08:45 25 MG Insulin Detemir (Levemir Flexpen/ FlexTouch) 15 units Q12 SC 02/25/17 21:00 03/27/17 20:59 03/01/17 08:49 15 UNITS Levothyroxine Sodium (Synthroid Tab) 100 mcg DAILYBB PO 02/26/17 06:00 03/28/17 06:59 03/01/17 06:11 100 MCG Pantoprazole Sodium (Protonix Tab) 40 mg BID PO 02/25/17 21:00 03/27/17 20:59 03/01/17 08:46 40 MG Vitamin B Complex/ Vit C/Folic Acid (Nephrocaps) 1 cap QAM PO 02/26/17 09:00 03/28/17 08:59 03/01/17 08:46 1 CAP Lactulose (Chronulac Syrup) 10 gm QAM PO 02/26/17 09:00 03/28/17 08:59 03/01/17 08:45 10 GM Magnesium Oxide (Mag-Ox Tab) 400 mg BID PO 02/25/17 21:00 03/27/17 20:59 03/01/17 08:45 400 MG Ondansetron HCl (Zofran Inj) 4 mg Q6H PRN IV 02/25/17 18:00 03/27/17 17:59 Insulin Aspart (novoLOG ASPART) SLIDING SCALE If C... ACHS SC 02/25/17 21:00 03/27/17 20:59 03/01/17 08:37 6 UNITS Glucose (Glucose 40% Gel) UD PRN PO 02/25/17 18:00 03/27/17 17:59 Glucose (Glucose Chew Tab) 1 tabs UD PRN PO 02/25/17 18:00 03/27/17 17:59 Dextrose (Dextrose 50% 50ML Syringe) 50 ml UD PRN IV 02/25/17 18:00 03/27/17 17:59 Glucagon (Glucagon Inj) 1 mg UD PRN SQ 02/25/17 18:00 03/27/17 17:59 Al Hydroxide/Mg Hydroxide/ Lidocaine HCl/ Barcode Q4H PRN PO 02/26/17 02:45 03/28/17 02:44 02/26/17 07:53 24 ML Sucralfate (Carafate Susp) 1 gm QID PO 02/26/17 13:00 03/28/17 12:59 03/01/17 08:48 1 GM Carvedilol (Coreg Tab) 12.5 mg BID PO 02/28/17 21:00 03/30/17 20:59 02/28/17 20:37 12.5 MG Ibuprofen (Advil Tab) 400 mg TID PO 03/01/17 09:00 03/31/17 08:59 Impression (1) End stage renal disease (2) Dependent on hemodialysis (3) Chest pain (4) Diabetes mellitus (5) Essential hypertension Mrs. Shirley Patrick is a 71-year-old female with ESRD due to DM and HTN. She was admitted to the hospital for evaluation of chest/epigastric abdominal pain. Symptoms started after eating. She also describes dysphagia with liquids and solids over the past couple of months. She has vomited after eating on other occasions. Patient has stable chronic elevation of troponin. CXR and CTA of the chest were reviewed. EKG without acute changes. TTE pending. Medical history is notable for removal of a gastric band in September of 2015 for persistent epigastric pain and discomfort. PMH - ESRD due to diabetic nephropathy/hypertensive nephrosclerosis (TTS HD at [facility]), T2DM, HTN, obesity, h/o gastric banding, hypercholesterolemia, hypothyroidism, arthritis, proteinuria and depression. Recommendations END STAGE RENAL DISEASE: -- On exam today patient has a pronounced pericardial friction rub. Will provide heparin free HD today -- If discharge is anticipated patient should resume her regular TTS HD schedule tomorrow -- Monitor serial PRP -- Nephrovite one po daily if able to swallow tablets HYPERTENSION: -- BP checked and found to be appropriate ANEMIA: -- Will provide Epogen w/ HD treatments EPIGASTRIC DISCOMFORT: -- GI consultation reviewed. EGD 1 year ago was negative. PPI & Carafate prescribed. Question need for repeat study -- Case discussed w/ Cardiology this am. Patient is on NSAID therapy for treatment of pericarditis. Motrin dose has been reduced. She will likely require 4 weeks therapy (stop 03/31/17).
[2017-03-01] MEDS ORDERED: CRG125 PO (12:59)
[2017-03-01] MEDS ORDERED: PRT40 PO (12:59)
[2017-03-01] MEDS ORDERED: MTR400 PO (12:59)
--- NOTE | 2017-03-01 13:05 | Discharge Instructions ---
Discharge Instructions Date of Service Mar 01, 2017. Admission Reason for Admission: Elevated Troponin I Level, Epigastric Abd Pain Discharge Discharge Diagnosis / Problem: Pericarditis, bradycardia, GERD Discharge Goals Goal(s): Decrease discomfort, Improve function, Improve disease control Activity Recommendations Activity Limitations: resume your previous activity Exercise/Sports Limitations: as tolerated Shower/Bathe: no limitations Driving or Machine Use: no limitations . Instructions / Follow-Up Instructions / Follow-Up Medications: - IBUPROFEN: 400mg three times a day to treat pericarditis, please take with meals as it can cause stomach irritation, Protonix will help protect stomach - PROTONIX: note that you should increase to twice a day for a month and you can then go back to once a day - COREG: dose decreased to 12.5mg twice a day from 25mg by cardiology due to slower heart rate Pericarditis: diagnosis made based on symptoms of chest pain, EKG changes and pericardial rub heard on exam treatment is Ibuprofen for 3-[address] Antonio will see you in the office in a few weeks to see how you are doing Reflux, possible gastritis: treat with Protonix twice a day FOLLOW UP - Dr. Burt, call for appointment next week for a hospital follow up - hemodialysis tomorrow as normally scheduled Current Hospital Diet Patient's current hospital diet: AHA Diet (Heart Healthy), Diabetes Type 2 Diet , Low Fiber Diet, Renal Diet Discharge Diet Recommended Diet: Diabetes Type 2 Diet, Renal Diet Pending Studies Studies pending at discharge: no Laboratory Results Hemoglobin A1c Test 02/23/17 15:38 Range/Units Estimated Average Glucose 143 mg/dl Hemoglobin A1c 6.6 H 4.5-5.6 % Lipid Panel Test 02/23/17 15:38 Range/Units Triglycerides Level 483 H 0-150 mg/dl Cholesterol Level 134 0-200 mg/dl HDL Cholesterol 32 mg/dl Cholesterol/HDL Ratio 4.2 LDL Cholesterol, Calculated mg/dl Medical Emergencies . Who to Call and When: Medical Emergencies: If at any time you feel your situation is an emergency, please call 911 immediately. . Non-Emergent Contact Non-Emergency issues call your: Primary Care Provider Call Non-Emergent contact if: you have a fever, your pain is worsening, you have any medication questions . . "Provider Documentation" section prepared by Moiz Wan. . VTE Core Measure Inpt VTE Proph given/why not?: SCD's [place] Drug Monitoring Program Search Results: no issues identified
--- NOTE | 2017-03-01 13:35 | Discharge Summary ---
Discharge Summary Date of Service Mar 01, 2017. Discharge Summary Admission Date: Feb 25, 2017 at 17:55 Discharge Date: Mar 01, 2017 Discharge Disposition: Home Principal Diagnosis: Pericarditis Problems/Secondary Diagnoses: ESRD GERD Immunizations: Have You Had Influenza Vaccine: Yes Influenza Vaccine Date: Apr 27, 2005 History of Tetanus Vaccine?: Yes Tetanus Immunization Date: Nov 25, 2000 History of Pneumococcal: Yes Pneumococcal Date: Nov 25, 2002 History of Hepatitis B Vaccine: No Procedures: Hemodialysis Consultations: Nephrology Cardiology Medication Reconciliation New Medications: Ibuprofen (Ibuprofen) 400 Mg Tab 400 MG PO TID for 30 Days, #90 TABS 1 Refill Carvedilol (Carvedilol) 12.5 Mg Tab 12.5 MG PO BID, #60 TAB 1 Refill Pantoprazole (Pantoprazole Sodium) 40 Mg Tab 40 MG PO BID, #60 TAB 1 Refill Continued Medications: Aspirin (Aspirin Ec) 81 Mg Tab 81 MG PO DAILY Atorvastatin (Lipitor) 20 Mg Tab 20 MG PO HS, TAB Calcium Acetate (Phoslo 667 Mg) 667 Mg Cap 1 CAP PO TID for 90 Days, #270 CAP 3 Refills Citalopram Hydrobromide (Celexa) 40 Mg Tab 40 MG PO HS, TAB Felodipine (Felodipine ER) 5 Mg Tabcr 5 MG PO TID Gabapentin (Neurontin) 100 Mg Cap 100 MG PO 3XWEEK, CAP AM Saturdays BEFORE DIALYSIS Hydralazine Hcl (Apresoline) 25 Mg Tab 25 MG PO TID, TAB Insulin Detemir (Levemir Flextouch) 100 Unit/Ml Inj 15 UNITS SC Q12 Lactulose (Encephalopathy) (Enulose) 10 Gm/15 Ml Jennifer 15 ML PO QAM Levothyroxine Sodium (Levothyroxine Sodium) 100 Mcg Tab 100 MCG PO DAILY for 90 Days, #90 TAB 3 Refills Magnesium Oxide (Mg Supplement (Magnesium) 400 Mg Cap 400 MG PO QAM Vitamin B Cmplx/Vitc/Folic Ac (Nephrocaps) Cap 1 CAP PO QAM, CAP Discontinued Medications: Carvedilol (Coreg) 25 Mg Tab 25 MG PO BID, TAB Pantoprazole (Protonix) 40 Mg Tab 40 MG PO HS, #30 TAB Discharge Exam Patient doing well, no chest pain, no dyspnea today. Eating slowly getting better. Tolerating dialysis. Asked patient if she felt well enough to go home , she said that she did. Planned to take Ibuprofen as prescribed and follow up closely with PCP and digital forensics examiner. Review of Systems: Constitutional: No fever, No chills, No sweats, No weight loss, No weakness , No fatigue, No problem reported Eyes: No worsening of vision, No eye pain, No redness, No discharge, No diplopia, No problem reported ENT: No hearing loss, No unusual epistaxis, No nasal symptoms, No sore throat, No tinnitus, No dental problems, No trouble swallowing, No problem reported Respiratory: No cough, No sputum, No wheezing, No shortness of breath, No dyspnea on exertion, No dyspnea at rest, No hemoptysis, No problem reported Cardiovascular: No chest pain, No orthopnea, No PND, No edema, No claudication, No palpitations, No problem reported Abdomen: No pain, No nausea, No vomiting, No diarrhea, No constipation, No GI bleeding, No problem reported Musculoskeletal: No joint pain, No muscle pain, No swelling, No calf pain, No problem reported Genitourinary - Female: No dysuria, No urinary frequency, No urinary urgency , No urinary incontinence, No urinary retention, No hematuria Neurologic: No memory loss, No paralysis, No weakness, No numbness/tingling , No vertigo, No balance problems, No problem reported Psychiatric: No depression symptoms, No anhedonism, No anxiety, No insomnia , No substance abuse, No problem reported Endocrine: No fatigue, No excessive thirst, No excessive urination, No problem reported Hematologic / Lymphatic: No abnormal bleeding/bruising, No clotting problems , No swollen lymph nodes, No night sweats, No problem reported Integumentary: No rash, No itch, No new/changing skin lesions, No color change, No bleeding, No problem reported Physical Exam: General Appearance: no apparent distress, + obese Eyes: normal inspection, EOMI, sclerae normal ENT: normal ENT inspection, hearing grossly normal, pharynx normal Neck: supple, no adenopathy, no JVD, trachea midline Respiratory/Chest: chest non-tender, lungs clear, normal breath sounds, no respiratory distress, no accessory muscle use Cardiovascular: regular rate, rhythm, no edema, no gallop, no JVD, no murmur , normal peripheral pulses, + friction rub (heard best over apex) Abdomen / GI: normal bowel sounds, non tender, soft, no organomegaly Extremities: normal inspection, no calf tenderness, normal capillary refill , no pedal edema, normal range of motion, pelvis stable Neurologic/Psychiatric: recruitment assistant II-XII nml as tested, alert, normal mood/affect , normal reflexes, oriented x 3, + motor weakness Skin: normal color, warm/dry, no rash Hospital Course 71 yo female with history of chest pain in the past with chronically mildly elevated troponin is admitted with pleuritic chest pain. - Pericarditis: diagnosed by J waves on EKG, symptoms, improvement with NSAID and friction rub on exam will treat with Ibuprofen 400mg TID x 4 weeks, follow up with cardiology in a few weeks - GERD, possible gastritis: typically on Protonix 40mg daily, will increase to twice a day while taking Ibuprofen - Bradycardia: unclear why, HR in 50-60's, no symptoms cardiology recommends decreasing Coreg dose to 12.5mg BID from 25mg, will follow up in office Diabetes mellitus-- Accu-Cheks before meals and at bedtime with NovoLog coverage per scale. Levemir 15 units subcutaneous every 12 hours. ESRD on HD-- received HD today, plan to resume tomorrow as normally scheduled Hyperlipidemia-- Continue atorvastatin by mouth at bedtime. Peripheral neuropathy-- Gabapentin 100 mg by mouth daily before hemodialysis. Hypothyroidism-- Continue levothyroxine sodium 100 g by mouth daily Continue lactulose, mag oxide and Nephrocaps. Total Time Spent: Greater than 30 minutes This includes examination of the patient, discharge planning, medication reconciliation, and communication with other providers. Discharge Instructions Please refer to the electronic Patient Visit Report (Discharge Instructions) for additional information. Follow-Up Dr. Burt in one week Dr. Antonio in 3-[address] Stephenson as previously scheduled Additional Copies To Payam Stephenson M.D.; Saad Antonio M.D.; Julito Burt M.D.
[2017-03-01] MEDS ORDERED: OXYCODONE HCL IR 5 MG TAB (IMMEDIATE RELEASE) PO STA (14:10)
== END 2017-03-01 15:10 | disposition home or self-care (01) | DRG 314 ==
LOC: C.EDB 15:34 → C.2T 17:55 → EDBEDREQ 18:20 → ENRESERV 18:22
PROVIDERS: ADMIT Hospitalist; ATTEND Internal Medicine
DX: I31.9 Disease of pericardium, unspecified (principal); N18.6 End stage renal disease; I12.0 Hypertensive chronic kidney disease with stage 5 chronic kidney disease or end stage renal disease; R00.1 Bradycardia, unspecified; K29.70 Gastritis, unspecified, without bleeding; R13.10 Dysphagia, unspecified; M54.2 Cervicalgia; Z48.813 Encounter for surgical aftercare following surgery on the respiratory system; E11.21 Type 2 diabetes mellitus with diabetic nephropathy; E11.22 Type 2 diabetes mellitus with diabetic chronic kidney disease; E11.42 Type 2 diabetes mellitus with diabetic polyneuropathy; J44.9 Chronic obstructive pulmonary disease, unspecified; E78.00 Pure hypercholesterolemia, unspecified; E78.5 Hyperlipidemia, unspecified; E03.9 Hypothyroidism, unspecified; K21.9 Gastro-esophageal reflux disease without esophagitis; D64.9 Anemia, unspecified; M13.0 Polyarthritis, unspecified; F32.9 Major depressive disorder, single episode, unspecified; I25.2 Old myocardial infarction; E66.9 Obesity, unspecified; Z68.37 Body mass index [BMI] 37.0-37.9, adult; Z99.2 Dependence on renal dialysis; Z86.718 Personal history of other venous thrombosis and embolism; Z98.84 Bariatric surgery status; Z79.4 Long term (current) use of insulin; Z79.82 Long term (current) use of aspirin; Z79.899 Other long term (current) drug therapy

== ENCOUNTER 2017-03-06 08:40 | Inpatient (IN) | payer OTHER ==
[~2017-03-06] VITALS: Ht 157.5 cm; Wt 95.3 kg
[~2017-03-06 08:40] MED LIST changes: +ASPI81TA28 PO; -CARV25TA2 PO; +CRG125 PO; +LEVO100T7 PO; +MTR400 PO; -PANT40TA PO; +PRT40 PO; -SYN100 PO
--- NOTE | 2017-03-06 09:33 | EMERGENCY ROOM VISIT NOTE ---
History Report prepared by Yanick: Marlon Maher Under the Supervision of: Dr. Stewart Carroll M.D. First contact with patient: 09:10 Chief Complaint: SHORTNESS OF BREATH Stated Complaint: SOB, LOW BLOOD PRESSURE Nursing Triage Summary: "I am out of breath, very tired, I had dialysis today and they stopped after 2 1/2 hours because my BP was low and my oxygen was low, 85%, I do not wear oxygen at home." History of Present Illness The patient is a 71 year old female who presents to the Emergency Room with complaints of shortness of breath that began 5 days ago. At this time, she was discharged from the hospital secondary to an inpatient stay to treat her pericarditis. She also has a history of diabetes. She receives dialysis on the Wednesday/ / Wednesday cycle. After she received dialysis today, she was referred to the ER for her shortness of breath, hypotension, and bradycardia. She denies any fevers, chest pain, cough, nausea, vomiting, diarrhea, recent falls or trauma, or weight changes. She is experiencing fatigue. Source of History: patient, spouse/significant other Onset: 5 days ago Position: other (Respiratory System) Symptom Intensity: moderate Quality: other (Shortness of breath) Timing: constant Associated Symptoms: No fevers, No cough, No chest pain, No nausea, No vomiting, No diarrhea Note: She is bradycardic. Review of Systems See HPI for pertinent positives & negatives. A total of 10 systems reviewed and were otherwise negative. Past Medical & Surgical Medical Problems: (1) Abdominal pain (2) Anemia (3) ARF (acute renal failure) (4) Arthritis (5) Cellulitis (6) Chest pain (7) Chronic kidney disease (8) COPD (chronic obstructive pulmonary disease) (9) Dependent on hemodialysis (10) Depression (11) Diabetes mellitus (12) Elevated troponin (13) Elevated troponin I level (14) End stage renal disease (15) Epigastric abdominal pain (16) Essential hypertension (17) Gastroesophageal reflux disease (18) History of thrombophlebitis (19) Hypothyroidism (20) Hypoxia (21) Kidney disease (22) Nausea and vomiting (23) Obesity (24) Secondary hyperparathyroidism (of renal origin) (25) Streptococcal sepsis Surgical Problems: (1) H/O: hysterectomy Old medical records were reviewed. Nurse's notes were reviewed and I agree with. Family History Diabetes mellitus Heart disease Hypertension Kidney disease Kidney stones Social History Smoking Status: Never Smoker Alcohol Use: none Drug Use: none Marital Status: Housing Status: lives with family Occupation Status: retired Current/Historical Medications Scheduled Aspirin (Aspirin Ec), 81 MG PO DAILY Atorvastatin (Lipitor), 20 MG PO HS Calcium Acetate (Phoslo 667 Mg), 1 CAP PO TID Carvedilol (Carvedilol), 12.5 MG PO BID Citalopram Hydrobromide (Celexa), 40 MG PO HS Felodipine (Felodipine ER), 5 MG PO TID Gabapentin (Neurontin), 100 MG PO 3XWEEK Hydralazine Hcl (Apresoline), 25 MG PO TID Ibuprofen (Ibuprofen), 400 MG PO TID Insulin Detemir (Levemir Flextouch), 15 UNITS SC Q12 Lactulose (Encephalopathy) (Enulose), 15 ML PO QAM Levothyroxine Sodium (Levothyroxine Sodium), 100 MCG PO DAILY Magnesium Oxide (Mg Supplement (Magnesium), 400 MG PO QAM Pantoprazole (Pantoprazole Sodium), 40 MG PO BID Vitamin B Cmplx/Vitc/Folic Ac (Nephrocaps), 1 CAP PO QAM Allergies Coded Allergies: Lisinopril (Verified Adverse Reaction, Intermediate, cough, 03/06/17) Physical Exam Vital Signs Date Time Temp Pulse Resp B/P (MAP) Pulse Ox O2 Delivery O2 Flow Rate FiO2 03/06/17 10:30 60 22 134/83 95 Nasal Cannula 4.0 03/06/17 09:10 97 Nasal Cannula 4.0 03/06/17 09:10 97 Nasal Cannula 4.0 03/06/17 09:08 53 03/06/17 08:56 82 Room Air 03/06/17 08:56 36.4 50 22 118/56 82 Room Air Physical Exam General: Non-ill appearing older female wearing supplemental oxygen in no acute distress. HEENT: Normal cephalic atraumatic. Pupils are equal round and reactive to light. Sclerae anicteric. Extraocular movements are intact. Oropharynx is pink with moist mucous membranes. No swelling of the mouth lips or tongue. Neck: Supple with a midline trachea. No meningeal signs or stiffness, no JVD or bruits. No Stridor. Chest: Crackles to the bilateral bases. No wheezes or rhonchi. No increased work of breathing. Heart: regular rate and rhythm. Abdomen: Soft nontender, nondistended without rebound guarding or rigidity. Extremities: No cyanosis clubbing or edema. No calf tenderness or assymetry. Fistula in the right arm. Spine/Back. Non tender to palpation. No CVA tenderness Skin: Good turgor without rashes. Neurologic exam: Cranial nerves two through 12 are intact. Motor and sensation are intact and symmetrical throughout. Medical Decision & Procedures ER Provider Diagnostic Interpretation: Radiology results as stated below per my review and radiologist interpretation: CHEST ONE VIEW PORTABLE HISTORY: 71 years-old Female CHEST PAIN acute atypical chest pain. COMPARISON: Chest radiograph 02/25/2017 and 02/05/2017, chest CT 02/25/2017 TECHNIQUE: Portable upright AP view of the chest FINDINGS: Cardiac silhouette is mildly enlarged. There is atherosclerosis of the aorta. Mild pulmonary vascular congestion without overt pulmonary edema. No pneumothorax. There is chronic blunting of the right costophrenic angle. New opacity of the left lung base is noted. The bones are grossly intact. IMPRESSION: 1. New opacity of the left lung base suggest atelectasis or pneumonia, possibly with a small effusion. 2. Cardiomegaly without overt pulmonary edema. The above report was generated using voice recognition software. It may contain grammatical, syntax or spelling errors. Electronically signed by: Odilon Oro M.D. 03/06/2017 9:59 AM Dictated Date/Time: 03/06/2017 9:57 AM Laboratory Results 03/06/17 09:12 Red Blood Count 3.00, Mean Corpuscular Volume 102.3, Mean Corpuscular Hemoglobin 31.0, Mean Corpuscular Hemoglobin Concent 30.3, Mean Platelet Volume 9.4, Neutrophils (%) (Auto) 68.3, Lymphocytes (%) (Auto) 15.1, Monocytes (%) ( Auto) 13.0, Eosinophils (%) (Auto) 2.7, Basophils (%) (Auto) 0.5, Neutrophils # (Auto) 6.81, Lymphocytes # (Auto) 1.50, Monocytes # (Auto) 1.29, Eosinophils # ( Auto) 0.27, Basophils # (Auto) 0.05 03/06/17 09:12 Test 03/06/17 09:12 03/06/17 09:21 03/06/17 09:34 White Blood Count 9.96 K/uL (4.8-10.8) Red Blood Count 3.00 M/uL (4.2-5.4) Hemoglobin 9.3 g/dL (12.0-16.0) Hematocrit 30.7 % (37-47) Mean Corpuscular Volume 102.3 fL (80-100) Mean Corpuscular Hemoglobin 31.0 pg (25-34) Mean Corpuscular Hemoglobin Concent 30.3 g/dl (32-36) Platelet Count 277 K/uL (130-400) Mean Platelet Volume 9.4 fL (7.4-10.4) Neutrophils (%) (Auto) 68.3 % Lymphocytes (%) (Auto) 15.1 % Monocytes (%) (Auto) 13.0 % Eosinophils (%) (Auto) 2.7 % Basophils (%) (Auto) 0.5 % Neutrophils # (Auto) 6.81 K/uL (1.4-6.5) Lymphocytes # (Auto) 1.50 K/uL (1.2-3.4) Monocytes # (Auto) 1.29 K/uL (0.11-0.59) Eosinophils # (Auto) 0.27 K/uL (0-0.5) Basophils # (Auto) 0.05 K/uL (0-0.2) RDW Standard Deviation 56.5 fL (36.4-46.3) RDW Coefficient of Variation 15.1 % (11.5-14.5) Immature Granulocyte % (Auto) 0.4 % Immature Granulocyte # (Auto) 0.04 K/uL (0.00-0.02) Prothrombin Time 11.5 SECONDS (9.0-12.0) Prothromb Time International Ratio 1.1 (0.9-1.1) Activated Partial Thromboplast Time 28.2 SECONDS (21.0-31.0) Partial Thromboplastin Ratio 1.1 Anion Gap 4.0 mmol/L (3-11) Est Creatinine Clear Calc Drug Dose 15.3 ml/min Estimated GFR () 14.0 Estimated GFR (Non- 12.0 BUN/Creatinine Ratio 7.3 (10-20) Calcium Level 8.2 mg/dl (8.5-10.1) Total Bilirubin 0.3 mg/dl (0.2-1) Direct Bilirubin < 0.1 mg/dl (0-0.2) Aspartate Amino Transf (AST/SGOT) 12 U/L (15-37) Alanine Aminotransferase (ALT/SGPT) 10 U/L (12-78) Alkaline Phosphatase 85 U/L (45-117) Total Creatine Kinase 33 U/L (26-192) Creatine Kinase MB 0.6 ng/ml (0.5-3.6) Total Protein 7.8 gm/dl (6.4-8.2) Albumin 3.0 gm/dl (3.4-5.0) Lipase 108 U/L (73-393) Creatine Kinase MB Ratio (0-3.0) Bedside Lactic Acid Venous 1.03 mmol/L (0.90-1.70) Bedside Troponin I < 0.030 ng/ml (0-0.045) Laboratory studies as stated above per my review. ECG Indication: SOB/dyspnea Rate (beats per minute): 52 Rhythm: sinus bradycardia Findings: no acute ischemic change, left axis deviation Comparison ECG Date: 28 Feb 2017 Change: Rate increased from 42. ED Course 0910: Past medical records reviewed. The patient was evaluated in room B5, and a complete history and physical examination were performed. 1042: Upon reevaluation, the patient is resting. I discussed the results and treatment plan with the patient. She verbalized agreement of the treatment plan. The patient will be evaluated by Dr. Rodney Cabrales [facility], for further management. Medical Decision Differentials include, but are not limited to; CHF, cardiac disease, pericarditis, infection, and electrolyte or metabolic abnormality. This patient comes in as described above. She was placed in room B5. She is here with shortness of breath she presented triage with an O2 saturation in the low 80s. She was placed on oxygen on my exam she appears comfortable on oxygen. I do think she has some crackles in the bases she denies that she is having cough or URI-type symptoms. She is a dialysis patient and did not miss dialysis in fact had 2 hours of dialysis prior today. She was admitted recently and diagnosed with pericarditis . She had a recent negative PE study. She had an ultrasound which showed a normal EF of her heart and had no pericardial effusion. Her EKG shows sinus bradycardia which is unchanged. No ischemic changes. She has no significant electrode or metabolic abnormalities beyond her baseline renal failure. Potassium was not elevated. Her chest x- ray shows an infiltrate or atelectasis or other process in the left base. Clinically, she does not really act like she has pneumonia. I do think she needs to be admitted for further treatment and evaluation and observation. I have consulted . Medication Reconcilliation Current Medication List: was personally reviewed by me Blood Pressure Screening Patient's blood pressure: Normal blood pressure Blood pressure disposition: Did not require urgent referral Consults Time Called: 1040 Consulting Physician: - [facility] Returned Call: [phone] Discussed the patient's case. The patient will be evaluated for further management. Impression Primary Impression: Hypoxemia Additional Impression: SOB (shortness of breath) Scribe Attestation The scribe's documentation has been prepared under my direction and personally reviewed by me in its entirety. I confirm that the note above accurately reflects all work, treatment, procedures, and medical decision making performed by me. Departure Information Dispostion Being Evaluated By Hospitalist Referrals Julito Burt M.D. (PCP) Patient Instructions My [facility] Problem Qualifiers
[2017-03-06 09:48] LABS: BASO % 0.5 %; BASO ABS # 0.05 K/uL (0-0.2); COMPLETE YES; EOS % 2.7 %; HEMATOCRIT 30.7 % (37-47); IG% 0.4 %; LYMPH % 15.1 %; MEAN CELL VOLUME 102.3 fL (80-100); MEAN CORPUSCULAR HGB CONC 30.3 g/dl (32-36); MEAN PLATELET VOLUME 9.4 fL (7.4-10.4); NEUT % 68.3 %; PLATELET COUNT 277 K/uL (130-400); WHITE BLOOD COUNT 9.96 K/uL (4.8-10.8)
[2017-03-06 09:56] LABS: INR 1.1 (0.9-1.1); PARTIAL THROMBOPLASTIN RATIO 1.1; PROTHROMBIN TIME (PATIENT) 11.5 SECONDS (9.0-12.0)
--- NOTE | 2017-03-06 10:01 | DIAGNOSTIC IMAGING REPORT ---
CHEST ONE VIEW PORTABLE HISTORY: 71 years-old Female CHEST PAIN acute atypical chest pain. COMPARISON: Chest radiograph 02/25/2017 and 02/05/2017, chest CT 02/25/2017 TECHNIQUE: Portable upright AP view of the chest FINDINGS: Cardiac silhouette is mildly enlarged. There is atherosclerosis of the aorta. Mild pulmonary vascular congestion without overt pulmonary edema. No pneumothorax. There is chronic blunting of the right costophrenic angle. New opacity of the left lung base is noted. The bones are grossly intact. IMPRESSION: 1. New opacity of the left lung base suggest atelectasis or pneumonia, possibly with a small effusion. 2. Cardiomegaly without overt pulmonary edema. The above report was generated using voice recognition software. It may contain grammatical, syntax or spelling errors. Electronically signed by: Odilon Oro M.D. 03/06/2017 9:59 AM Dictated Date/Time: 03/06/2017 9:57 AM
[2017-03-06 10:16] LABS: BLOOD UREA NITROGEN 26 mg/dl (7-18); BUN/CREATININE RATIO 7.3 (10-20); CALCIUM 8.2 mg/dl (8.5-10.1); CARBON DIOXIDE 36 mmol/L (21-32); CHLORIDE 96 mmol/L (98-107); GLUCOSE 164 mg/dl (70-99); POTASSIUM 3.8 mmol/L (3.5-5.1); SODIUM 136 mmol/L (136-145)
[2017-03-06 10:22] LABS: ALKALINE PHOSPHATASE 85 U/L (45-117); ALT/SGPT 10 U/L (12-78); AST/SGOT 12 U/L (15-37); CKMB/CK RATIO 1.8 (0-3.0)
[2017-03-06] MEDS ORDERED: GLUCOSE 40% GEL 15 GM TUBE PO PRN (11:15)
[2017-03-06] MEDS ORDERED: GLUCOSE 10 TABS/TUBE PO PRN (11:15)
[2017-03-06] MEDS ORDERED: ACETAMINOPHEN 325 MG TAB PO PRN (11:15)
[2017-03-06] MEDS ORDERED: ONDANSETRON INJ 2 MG/ML 2 ML VIAL IV PRN (11:15)
[2017-03-06] MEDS ORDERED: GLUCAGON FOR INJ 1 MG VIAL SQ PRN (11:15)
[2017-03-06] MEDS ORDERED: DEXTROSE 50% 50 ML SYR IV PRN (11:15)
[2017-03-06] MEDS ORDERED: MAGNESIUM HYDROXIDE SUSP 30 ML UDC PO PRN (11:15)
--- NOTE | 2017-03-06 11:41 | History and Physical ---
History & Physical Date & Time of Service: Mar 06, 2017 at 11:28 Chief Complaint: Sob, Low Blood Pressure Primary Care Physician: Julito Burt M.D. History of Present Illness Source: patient 71 y/o F c/o SOB. Pt states that she has been having worsening SOB since 1-2 days after d/c from [facility], [place]. Pt was hospitalized last week for pericarditis with d /c on 03/01. She states she did have SOB with this, however her current SOB is worse. She also had chest pain that radiated to her back with the prior admission and since she has been taking NSAIDs, she has had no return of chest pain. Pt states she was on O2 during her admission, however not for the last day. She had her O2 sats monitored and had no SOB on d/c. She started noting SOB with ambulation only 1-2 days after going home that progressed to SOB at rest at times. She went to her usual HD session today and was noted to be hypoxic. They put her on O2 there, which did help. They were able to do 2.5 hrs of her usual 4 hr HD, but had to stop due to low BP and HR. Pt is uncertain what the actual values were. She was sent to the ED at that time. When she arrived, she was found to have an O2 sat of 82% on RA. Pt was placed on O2 and states she does feel somewhat improved. Pt states she has been quite fatigued since her d/c. She is tolerating PO, but has little appetite. No LE swelling or fevers. Pt denies abd pain, n/v/c/d, LE pain. Pt has no hx of home O2 use. She has had no changes in her medications since d/c. Past Medical/Surgical History Medical Problems: (1) ARF (acute renal failure) Status: Resolved (2) Arthritis Status: Chronic (3) Chronic kidney disease Status: Chronic (4) COPD (chronic obstructive pulmonary disease) Status: Chronic (5) Depression Status: Chronic (6) Diabetes mellitus Status: Chronic (7) Essential hypertension Status: Chronic (8) Gastroesophageal reflux disease Status: Chronic (9) History of thrombophlebitis Status: Resolved (10) Hypothyroidism Status: Chronic (11) Kidney disease Status: Chronic Surgical Problems: (1) H/O: hysterectomy Status: Resolved ESRD--HD on / Family History Family history was reviewed; no changes noted. Social History Smoking Status: Never Smoker Alcohol Use: none Drug Use: none Marital Status: Housing status: lives with family Occupational Status: retired Immunizations History of Influenza Vaccine: Yes Influenza Vaccine Date: Apr 27, 2005 History of Tetanus Vaccine?: Yes Tetanus Immunization Date: Nov 25, 2000 History of Pneumococcal: Yes Pneumococcal Date: Nov 25, 2002 History of Hepatitis B Vaccine: No Multi-Drug Resistant Organisms History of MDRO: No Allergies Coded Allergies: Lisinopril (Verified Adverse Reaction, Intermediate, cough, 03/06/17) Home Medications Scheduled Aspirin (Aspirin Ec), 81 MG PO DAILY Atorvastatin (Lipitor), 20 MG PO HS Calcium Acetate (Phoslo 667 Mg), 1 CAP PO TID Carvedilol (Carvedilol), 12.5 MG PO BID Citalopram Hydrobromide (Celexa), 40 MG PO HS Felodipine (Felodipine ER), 5 MG PO TID Gabapentin (Neurontin), 100 MG PO 3XWEEK Hydralazine Hcl (Apresoline), 25 MG PO TID Ibuprofen (Ibuprofen), 400 MG PO TID Insulin Detemir (Levemir Flextouch), 15 UNITS SC Q12 Lactulose (Encephalopathy) (Enulose), 15 ML PO QAM Levothyroxine Sodium (Levothyroxine Sodium), 100 MCG PO DAILY Magnesium Oxide (Mg Supplement (Magnesium), 400 MG PO QAM Pantoprazole (Pantoprazole Sodium), 40 MG PO BID Vitamin B Cmplx/Vitc/Folic Ac (Nephrocaps), 1 CAP PO QAM Review of Systems Pertinent positives and negatives reviewed in HPI--all others negative Physical Exam Vital Signs Date Time Temp Pulse Resp B/P (MAP) Pulse Ox O2 Delivery O2 Flow Rate FiO2 03/06/17 10:30 60 22 134/83 95 Nasal Cannula 4.0 03/06/17 09:10 97 Nasal Cannula 4.0 03/06/17 09:10 97 Nasal Cannula 4.0 03/06/17 09:08 53 03/06/17 08:56 82 Room Air 03/06/17 08:56 36.4 50 22 118/56 82 Room Air General Appearance: no apparent distress, + obese Head: normocephalic, atraumatic Eyes: normal inspection, EOMI ENT: hearing grossly normal Neck: supple Respiratory/Chest: no respiratory distress, no accessory muscle use, + crackles (b/l bases) Cardiovascular: no edema, + bradycardia Abdomen/GI: non tender, soft Extremities/Musculoskelatal: no calf tenderness, no pedal edema Neurologic/Psych: alert, normal mood/affect, oriented x 3 Skin: normal color, warm/dry Diagnostics Laboratory Results Results Past 24 Hours Test 03/06/17 09:12 03/06/17 09:21 03/06/17 09:34 Range/Units White Blood Count 9.96 4.8-10.8 K/uL Red Blood Count 3.00 4.2-5.4 M/uL Hemoglobin 9.3 12.0-16.0 g/dL Hematocrit 30.7 37-47 % Mean Corpuscular Volume 102.3 80-100 fL Mean Corpuscular Hemoglobin 31.0 25-34 pg Mean Corpuscular Hemoglobin Concent 30.3 32-36 g/dl Platelet Count 277 130-400 K/uL Mean Platelet Volume 9.4 7.4-10.4 fL Neutrophils (%) (Auto) 68.3 % Lymphocytes (%) (Auto) 15.1 % Monocytes (%) (Auto) 13.0 % Eosinophils (%) (Auto) 2.7 % Basophils (%) (Auto) 0.5 % Neutrophils # (Auto) 6.81 1.4-6.5 K/uL Lymphocytes # (Auto) 1.50 1.2-3.4 K/uL Monocytes # (Auto) 1.29 0.11-0.59 K/uL Eosinophils # (Auto) 0.27 0-0.5 K/uL Basophils # (Auto) 0.05 0-0.2 K/uL RDW Standard Deviation 56.5 36.4-46.3 fL RDW Coefficient of Variation 15.1 11.5-14.5 % Immature Granulocyte % (Auto) 0.4 % Immature Granulocyte # (Auto) 0.04 0.00-0.02 K/uL Prothrombin Time 11.5 9.0-12.0 SECONDS Prothromb Time International Ratio 1.1 0.9-1.1 Activated Partial Thromboplast Time 28.2 21.0-31.0 SECONDS Partial Thromboplastin Ratio 1.1 Sodium Level 136 136-145 mmol/L Potassium Level 3.8 3.5-5.1 mmol/L Chloride Level 96 98-107 mmol/L Carbon Dioxide Level 36 21-32 mmol/L Anion Gap 4.0 3-11 mmol/L Blood Urea Nitrogen 26 7-18 mg/dl Creatinine 3.60 0.60-1.20 mg/dl Est Creatinine Clear Calc Drug Dose 15.3 ml/min Estimated GFR () 14.0 Estimated GFR (Non- 12.0 BUN/Creatinine Ratio 7.3 10-20 Random Glucose 164 70-99 mg/dl Calcium Level 8.2 8.5-10.1 mg/dl Total Bilirubin 0.3 0.2-1 mg/dl Direct Bilirubin < 0.1 0-0.2 mg/dl Aspartate Amino Transf (AST/SGOT) 12 15-37 U/L Alanine Aminotransferase (ALT/SGPT) 10 12-78 U/L Alkaline Phosphatase 85 45-117 U/L Total Creatine Kinase 33 26-192 U/L Creatine Kinase MB 0.6 0.5-3.6 ng/ml Creatine Kinase MB Ratio 1.8 0-3.0 Total Protein 7.8 6.4-8.2 gm/dl Albumin 3.0 3.4-5.0 gm/dl Lipase 108 73-393 U/L Bedside Lactic Acid Venous 1.03 0.90-1.70 mmol/L Bedside Troponin I < 0.030 0-0.045 ng/ml Microbiology Results 03/06/17 Blood Culture, Received Pending 03/06/17 Blood Culture, Received Pending Diagnostic Radiology CXR: 1. New opacity of the left lung base suggest atelectasis or pneumonia, possibly with a small effusion. 2. Cardiomegaly without overt pulmonary edema. Impression Assessment and Plan 71 y/o F who was admitted on 03/06 with hypoxia Hypoxia: Uncertain etiology ? PNA noted on CXR and with crackles on exam No fever or elevated WBC, however pt with recent admission Will start on cefepime given low risk for HAP (no recent abx use, LOS <5 days , not requiring intubation), however if this is not effective may need to broaden coverage ECHO 02/26 with EF 55-60% and neg for structural issues. Will not repeat at this time, however if not improving may need to consider given recent pericarditis CTA 02/25 was neg, will also not repeat this at this time Sputum and blood cx pending Hb is low, however seems c/w baseline Pericarditis: continue ibuprofen No recurrence of chest pain Bradycardia: noted on prior admission as well Monitor, may need to adjust HTN medications HTN: continue home meds Monitor closely as apparently there was hypoTN as HD ESRD: c/s renal T//Sa Had 2.5 of usual 4 hrs today Cr is improved to 3.6 DM: continue home meds + SSI Anemia: likely related to ESRD in part, however this is macrocytic B12, folate pending Other: Full code Heparin for DVT proph DM diet Level of Care Telemetry Resuscitation Status FULL RESUSCITATION VTE Prophylaxis VTE Risk Assessment Done? Y/N: Yes Risk Level: Low
[2017-03-06] MEDS ORDERED: CEFEPIME IV 2000 MG in DEXTROSE 5% 100ML IV STA (12:53)
[2017-03-06 13:40] VITALS: BP 144/72; PULSE 58; TEMP 36.6; O2SAT 97; Ht 157.5 cm; Wt 95.3 kg
[2017-03-06 16:40] VITALS: BP 143/83; PULSE 53; TEMP 36.6; O2SAT 96
[2017-03-06] MEDS: CALCIUM ACETATE 667MG GELCAP PO SCH (17:13)
[2017-03-06] MEDS: INSULIN ASPART 100 UNITS/ML 3 ML PEN SC SCH ×2 (17:47→21:10)
[2017-03-06 19:25] VITALS: BP 177/78; PULSE 57; TEMP 36.9; O2SAT 96
[2017-03-06] MEDS: ATORVASTATIN 20 MG TAB PO SCH (19:33)
[2017-03-06] MEDS: PANTOprazole SOD 40 MG TAB PO SCH (19:33)
[2017-03-06] MEDS: FELODIPINE 5 MG TABCR PO SCH (19:33)
[2017-03-06] MEDS: CITALOPRAM 40 MG TAB PO SCH (19:34)
[2017-03-06] MEDS: CARVEDILOL 12.5 MG TAB PO SCH (19:34)
[2017-03-06] MEDS: IBUPROFEN 200 MG TAB PO PRN (19:37)
[2017-03-06] MEDS: INSULIN DETEMIR FLEXPEN/FLEX TOUCH 100 UNITS/ML 3ML SC SCH (21:11)
[2017-03-06] MEDS: HEPARIN SOD 5000 UNIT/0.5 ML CARP SQ SCH (21:13)
[2017-03-06 23:55] VITALS: BP 120/57; PULSE 47; TEMP 36.5; O2SAT 93
[2017-03-07 03:55] VITALS: BP 145/57; PULSE 52; TEMP 36.6; O2SAT 89
[2017-03-07 06:01] LABS: HEMATOCRIT 28.5 % (37-47); MEAN CELL VOLUME 102.5 fL (80-100); MEAN CORPUSCULAR HGB CONC 31.2 g/dl (32-36); MEAN PLATELET VOLUME 9.3 fL (7.4-10.4); PLATELET COUNT 235 K/uL (130-400); RED BLOOD COUNT 2.78 M/uL (4.2-5.4); WHITE BLOOD COUNT 8.26 K/uL (4.8-10.8)
[2017-03-07] MEDS: LEVOTHYROXINE 100 MCG TAB PO SCH (06:17)
[2017-03-07] MEDS: HEPARIN SOD 5000 UNIT/0.5 ML CARP SQ SCH ×3 (06:18→22:19)
[2017-03-07 06:38] LABS: BUN/CREATININE RATIO 7.7 (10-20); CALCIUM 8.8 mg/dl (8.5-10.1); CREATININE 5.2 mg/dl (0.60-1.20); POTASSIUM 4.5 mmol/L (3.5-5.1)
[2017-03-07] MEDS: INSULIN ASPART 100 UNITS/ML 3 ML PEN SC SCH ×4 (07:00→20:00)
[2017-03-07] MEDS: CALCIUM ACETATE 667MG GELCAP PO SCH ×3 (07:36→16:22)
[2017-03-07] MEDS: ASPIRIN 81 MG ECTAB PO SCH (07:38)
[2017-03-07] MEDS: CARVEDILOL 12.5 MG TAB PO SCH ×2 (07:39→19:59)
[2017-03-07] MEDS: SACCHAROMYCES BOUL (FLORASTOR) 250 MG CAP PO SCH (07:40)
[2017-03-07] MEDS: MAGNESIUM OXIDE 400 MG TAB PO SCH (07:41)
[2017-03-07] MEDS: FELODIPINE 5 MG TABCR PO SCH ×3 (07:42→19:59)
[2017-03-07] MEDS: NEPHROCAPS PO SCH (07:42)
[2017-03-07] MEDS: PANTOprazole SOD 40 MG TAB PO SCH ×2 (07:43→19:59)
[2017-03-07] MEDS: IBUPROFEN 200 MG TAB PO PRN (07:45)
[2017-03-07 08:00] VITALS: BP 134/77; PULSE 57; TEMP 36.6; O2SAT 96
[2017-03-07] MEDS: CEFEPIME IV 2,000 MG in DEXTROSE 5% 100ML 100 ML IV SCH (08:11)
[2017-03-07] MEDS: INSULIN DETEMIR FLEXPEN/FLEX TOUCH 100 UNITS/ML 3ML SC SCH ×2 (08:13→22:17)
[2017-03-07] MEDS ORDERED: LACTULOSE PO SCH (09:00)
[2017-03-07 11:24] VITALS: BP 134/55; PULSE 66; TEMP 36.6; O2SAT 92
--- NOTE | 2017-03-07 11:54 | Nephrology Consultation ---
Nephrology Consultation Date & Providers Date of Consultation: Mar 07, 2017. Primary Care Provider: Julito Burt M.D. Referring Provider: Reason for Consultation Evaluation and management for end-stage renal disease on hemodialysis. History of Present Illness Shirley is a 71-year-old female with past medical history significant for end- stage renal disease on hemodialysis, hypertension, diabetes admitted to the hospital with respiratory distress and hypoxia. Electronic medical records including labs labs and imaging are reviewed in detail during patient's visit. She was recently admitted to the hospital and was diagnosed with pericarditis and on discharge she was started on ibuprofen. Since discharge last week she continued to have shortness of breath and having difficulty with deep breathing. Did not have any fever, chills, cough or productive sputum. Yesterday she was at her usual dialysis treatment when she was having shortness of breath, chest pain and her oxygen saturation was found to be low and sent to the emergency room for further evaluation. In the ED chest x-ray showed questionable right lower lobe pneumonia versus atelectasis and mild pulmonary congestion. She was started on cefepime empirically. She did not have her full treatment at dialysis yesterday. Troponins are normal. There was some T-wave changes in EKG. She has been requiring nasal cannula oxygen 2-3 liters and oxygen saturation has been above 90. Blood pressure has been stable. Her appetite has been poor but denies any nausea, vomiting or abdominal pain. She has end-stage renal disease secondary to diabetic nephropathy and hypertensive nephrosclerosis, has been on dialysis since 09/30/2015 via right radiocephalic AV fistula, dialysis at [facility] unit on Wednesday, , Wednesday. She had her regular dialysis treatment yesterday however she only had 2 hours of treatment before she was sent to the emergency room. Hypertension and diabetes has been otherwise well controlled. She continues to have mild shortness of breath and difficulty with deep breathing and did not notice any improvement since admission. Allergies Coded Allergies: Lisinopril (Verified Adverse Reaction, Intermediate, cough, 03/06/17) Inpatient Medications Current Inpatient Medications Medications (Trade) Dose Ordered Sig/Vaibhav Route Start Time Stop Time Status Last Admin Dose Admin Heparin Sodium (Porcine) (Heparin Sq 5000 Unit/0.5ml) 5,000 unit Q8 SQ 03/06/17 22:00 04/05/17 21:59 03/07/17 06:18 5,000 UNIT Acetaminophen (Tylenol Tab) 650 mg Q4H PRN PO 03/06/17 11:15 04/05/17 11:14 Magnesium Hydroxide (Milk Of Magnesia Susp) 30 ml Q12H PRN PO 03/06/17 11:15 04/05/17 11:14 Ondansetron HCl (Zofran Inj) 4 mg Q6H PRN IV 03/06/17 11:15 04/05/17 11:14 Insulin Aspart (novoLOG ASPART) SLIDING SCALE If C... ACHS SC 03/06/17 16:15 04/05/17 16:14 03/06/17 21:10 2 UNITS Glucose (Glucose 40% Gel) 15-30 GRAMS 15 GRAMS... UD PRN PO 03/06/17 11:15 04/05/17 11:14 Glucose (Glucose Chew Tab) 4-8 Tablets 4 Tabl... UD PRN PO 03/06/17 11:15 04/05/17 11:14 Dextrose (Dextrose 50% 50ML Syringe) 25-50ML OF 50% DW IV FOR... UD PRN IV 03/06/17 11:15 04/05/17 11:14 Glucagon (Glucagon Inj) 1 mg UD PRN SQ 03/06/17 11:15 04/05/17 11:14 Cefepime HCl 2000 mg/Dextrose 112.5 ml @ 200 mls/hr DAILY@0900 IV 03/07/17 09:00 03/14/17 08:59 03/07/17 08:11 200 MLS/HR Saccharomyces Boulardii (Florastor Cap) 250 mg DAILY PO 03/07/17 09:00 04/06/17 08:59 03/07/17 07:40 250 MG Aspirin (Ecotrin Tab) 81 mg DAILY PO 03/07/17 09:00 04/06/17 08:59 03/07/17 07:38 81 MG Atorvastatin Calcium (Lipitor Tab) 20 mg HS PO 03/06/17 21:00 04/05/17 20:59 03/06/17 19:33 20 MG Calcium Acetate (Phoslo Cap) 667 mg TIDM PO 03/06/17 16:45 04/05/17 16:44 03/07/17 07:36 667 MG Carvedilol (Coreg Tab) 12.5 mg BID PO 03/06/17 21:00 04/05/17 20:59 03/07/17 07:39 12.5 MG Citalopram Hydrobromide (celeXA TAB) 40 mg HS PO 03/06/17 21:00 04/05/17 20:59 03/06/17 19:34 40 MG Felodipine (Plendil Tabcr) 5 mg TID PO 03/06/17 21:00 04/05/17 20:59 03/07/17 07:42 5 MG Gabapentin (Neurontin Cap) 100 mg TuThSa@0800 PO 03/09/17 08:00 04/08/17 07:59 Hydralazine HCl (Apresoline Tab) 25 mg TID PO 03/06/17 21:00 04/05/17 20:59 03/07/17 07:37 25 MG Insulin Detemir (Levemir Flexpen/ FlexTouch) 15 units Q12 SC 03/06/17 21:00 04/05/17 20:59 03/07/17 08:13 15 UNITS Levothyroxine Sodium (Synthroid Tab) 100 mcg DAILYBB PO 03/07/17 06:00 04/06/17 05:59 03/07/17 06:17 100 MCG Pantoprazole Sodium (Protonix Tab) 40 mg BID PO 03/06/17 21:00 04/05/17 20:59 03/07/17 07:43 40 MG Vitamin B Complex/ Vit C/Folic Acid (Nephrocaps) 1 cap QAM PO 03/07/17 09:00 04/06/17 08:59 03/07/17 07:42 1 CAP Ibuprofen (Advil Tab) 400 mg TID PRN PO 03/06/17 14:00 04/05/17 13:59 03/07/17 07:45 400 MG Magnesium Oxide (Mag-Ox Tab) 400 mg QAM PO 03/07/17 09:00 04/06/17 08:59 03/07/17 07:41 400 MG Family History Diabetes mellitus Heart disease Hypertension Kidney disease Kidney stones Social History Smoking Status: Never Smoker Alcohol Use: none Drug Use: none Marital Status: Housing Status: lives with family Occupation: retired Review of Systems A complete review of systems was performed. Pertinent positives are noted above. All other systems are negative. Physical Exam Date Time Temp Pulse Resp B/P (MAP) Pulse Ox O2 Delivery O2 Flow Rate FiO2 03/07/17 11:24 36.6 66 18 134/55 (81) 92 3.0 03/07/17 08:00 36.6 57 18 134/77 (96) 96 3.0 03/07/17 08:00 Nasal Cannula 03/07/17 04:00 Nasal Cannula 3.0 03/07/17 03:55 36.6 52 14 145/57 (86) 89 Nasal Cannula 3.0 03/06/17 23:59 Nasal Cannula 3.0 03/06/17 23:55 36.5 47 14 120/57 (78) 93 Nasal Cannula 3.0 03/06/17 20:00 Nasal Cannula 3.0 03/06/17 19:25 36.9 57 16 177/78 (111) 96 Nasal Cannula 3.0 03/06/17 16:40 36.6 53 16 143/83 (103) 96 Nasal Cannula 3.0 03/06/17 16:00 Room Air 03/06/17 13:40 36.6 58 16 144/72 97 Room Air 03/06/17 13:05 50 16 141/74 98 Nasal Cannula 4.0 03/06/17 11:48 48 20 153/72 100 Nasal Cannula 4.0 GENERAL: Elderly female, AAA x 3, pleasant, healthy-appearing, not in any distress. HEENT: Atraumatic, normocephalic. NECK: Supple, no JVD, no carotid bruit appreciated. ENT: No sinus tenderness MOUTH and THROAT: Moist oral mucosa, no oral ulcer or pharyngeal erythema RESPIRATORY: Normal breathing efforts, no accessory muscle use, has bibasilar rales on exam, no wheezes CARDIOVASCULAR: S1, S2 normal, rate rhythm regular. ABDOMEN: Soft, nontender, positive bowel sound. MUSCULOSKELETAL: No CVA tenderness. No joint swelling, erythema or tenderness. Normal range of motion. SKIN: No skin rash EXTREMITY: No lower extremity edema, NEURO: No gross focal neurological deficit, speech fluent. PSYCHIATRY: Normal mood and judgment Laboratory Results Last 24 Hours Test 03/06/17 14:24 03/06/17 16:26 10/7/17 20:12 03/07/17 05:33 Bedside Glucose 147 mg/dl 213 mg/dl 137 mg/dl White Blood Count 8.26 K/uL Red Blood Count 2.78 M/uL Hemoglobin 8.9 g/dL Hematocrit 28.5 % Mean Corpuscular Volume 102.5 fL Mean Corpuscular Hemoglobin 32.0 pg Mean Corpuscular Hemoglobin Concent 31.2 g/dl RDW Standard Deviation 57.1 fL RDW Coefficient of Variation 15.2 % Platelet Count 235 K/uL Mean Platelet Volume 9.3 fL Sodium Level 136 mmol/L Potassium Level 4.5 mmol/L Chloride Level 96 mmol/L Carbon Dioxide Level 34 mmol/L Anion Gap 6.0 mmol/L Blood Urea Nitrogen 41 mg/dl Creatinine 5.20 mg/dl Est Creatinine Clear Calc Drug Dose 10.3 ml/min Estimated GFR () 8.9 Estimated GFR (Non- 7.7 BUN/Creatinine Ratio 7.7 Random Glucose 67 mg/dl Calcium Level 8.8 mg/dl Vitamin B12 Level 696 pg/mL Folate > 24.00 ng/mL Test 03/07/17 07:11 03/07/17 11:09 Bedside Glucose 70 mg/dl 160 mg/dl Impression 71-year-old female with end-stage renal disease on hemodialysis, admitted to the hospital with shortness of breath and hypoxia and diagnosed with possible pneumonia and started on empiric antibiotic. She continues to have mild shortness of breath and difficulty taking deep breath but denied chest pain, fever, chills, cough or sputum production. She remained afebrile, no leukocytosis. Recent diagnosis of pericarditis, has been on ibuprofen. Currently O2 sats normal with 3 liters nasal cannula oxygen, blood pressure and heart rate acceptable. Volume status acceptable. Electrolyte remain acceptable. Recommendations --no acute indication for dialysis, will plan for extra treatment tomorrow as she did not have complete treatment yesterday and has some evidence of pulmonary vascular congestion on exam --avoid IV fluid, continue on renal diet --will give Epogen with hemodialysis --start on boost 1 can t.i.d. --continue on phosphate binders --if no clinical improvement by tomorrow, suggest considering repeat echo to follow up on recent pericarditis Thank you for allowing me to participate in your patient's care. It was a pleasure to see Shirley
[2017-03-07] MEDS ORDERED: LACTULOSE SYRUP 30 GM/45 ML UDP PO PRN (12:00)
[2017-03-07] MEDS: IBUPROFEN 200 MG TAB PO SCH ×2 (14:44→19:59)
[2017-03-07] MEDS ORDERED: BOOST VANILLA PO SCH ×2 (16:15)
[2017-03-07] MEDS: SUCRALFATE 1 GM/10 ML UDC PO SCH ×2 (16:22→19:59)
--- NOTE | 2017-03-07 16:26 | ECHOCARDIOGRAM REPORT ---
*NOTICE TO RECEIVING DEMOCRAT AGENCY This information is strictly Confidential and protected under [place] law. [place] law prohibits you from making any further disclosure of this information unless further disclosure is expressly permitted by the written consent of the person to whom it pertains or is authorized by law. A general authorization for the release of medical or other information is not sufficient for this purpose. Hospital accepts no responsibility if the information is made available to any other person, INCLUDING THE PATIENT. Interpretation Summary * Name: LITO MOHR Study Date: 03/07/2017 02:52 PM BP: 134/55 mmHg * Patient Location: C.2E\S\E207\S\1 HR: 54 * : 1945 (M/d/yyyy) Gender: Female Height: 62 in * Age: 71 yrs Ethnicity: CA Weight: 195 lb * Ordering Physician: Mary Camejo * Referring Physician: Self, Referred * Performed By: Rosie Power, [facility] * * Reason For Study: EVAL FOR EF AND EFFUSION * BSA: 1.9 m2 * -- Conclusions -- * Limited views were obtained. * Left ventricular systolic function is normal. * Small pericardial effusion. * No evidence of cardiac tamponade. * Compared to an echocardiogram from 02/26/2017, there has been interim development of a pericardial effusion. Procedure Details * Limited views were obtained. Left Ventricle * Left ventricular systolic function is normal. * Ejection Fraction = 55-60%. * The left ventricular wall motion is normal. Right Ventricle * The right ventricle is borderline dilated. Atria * The left atrial size is normal. * Right atrial size is normal. Aortic Valve * The aortic valve is trileaflet. Pericardium/Pleural * Small pericardial effusion. Great Vessels * Normal inferior vena cava diameter and respiratory variation suggests normal central venous pressure. MMode 2D Measurements and Calculations IVSd 1.4 cm IVSs 1.6 cm LVIDd 4.7 cm LVIDs 3.0 cm LVPWd 1.3 cm LVPWs 1.5 cm IVS/LVPW 1.1 FS 36.7 % EDV(Teich) 103.2 ml ESV(Teich) 34.7 ml EF(Teich) 66.4 % EDV(cubed) 104.9 ml ESV(cubed) 26.7 ml EF(cubed) 74.6 % % IVS thick 15.3 % % LVPW thick 12.2 % LV mass(C)d 261.0 grams LV mass(C)dI 138.0 grams/m\S\2 LV mass(C)s 169.9 grams LV mass(C)sI 89.9 grams/m\S\2 SV(Teich) 68.6 ml SI(Teich) 36.3 ml/m\S\2 SV(cubed) 78.3 ml SI(cubed) 41.4 ml/m\S\2 Ao root diam 3.1 cm Ao root area 7.5 cm\S\2 LA dimension 3.6 cm LA/Ao 1.2 LVOT diam 2.0 cm LVOT area 3.1 cm\S\2
[2017-03-07 16:31] VITALS: BP 95/59; PULSE 56; TEMP 36.9; O2SAT 94
--- NOTE | 2017-03-07 16:42 | PULMONARY CONSULTATION ---
DATE OF CONSULTATION: 03/07/2017 TIME: 02:40 p.m. HISTORY OF PRESENT ILLNESS: The patient was seen in room 207. She is a 71-year-old female with a history of renal failure secondary to diabetes. She has been on dialysis. Yesterday, she was at dialysis and she had some shortness of breath. She also had low blood pressures, which sometimes occur. Her saturation was as low as 85%. She relates that for about a week, she has been more short of breath than normal. This would occur at rest or with exertion. She had been feeling tired. The patient was hospitalized from February 25 through March 01 with pericarditis. She was having chest pain at that time that started anteriorly and radiated posteriorly. She states that the pain now is different. It is just a slight pain on inspiration. The pain is all posterior at present. The pain typically occurs taking a deep breath. It is mostly in the left posterior chest area. She did have a chest x-ray done yesterday. This showed an inability to visualize the left hemidiaphragm. This could reflect effusion, atelectasis, or infiltrate. The x-ray was done portable. The patient previously had a CAT scan done in February 25. There was some mild interstitial changes bilaterally, but otherwise nothing. The left base was clear at that time. The patient states that she is told that she has COPD, although she never smoked. She does not recall having pulmonary function test done, however. She had used some inhalers in the past, but not currently. She did work in [employer] for about 30 years. 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 The patient has a prior history of sleep apnea. In 2009, she had a sleep study done showing mild apnea with an apnea-hypopnea index of 7.9. She did have a CPAP titration done, but she never got a CPAP. I think she was not interested in treatment because she did not feel like she was comfortable with the CPAP in place. The patient states she has been on oxygen in the past. She had a surgical procedure at [facility] in 2016 for removal of a donut type device, which was used for a hiatal hernia. Postoperatively, she was found to be hypoxic and she was sent home with oxygen, which she wore for about 3 months. I do not know if she was ever rechecked to see if she had a normal oxygen level or not. The patient has never smoked. She also has never drank alcohol. PAST SURGICAL HISTORY: 1. Hysterectomy. 2. Surgical placement of "praful donut" around the lower esophagus many years ago with subsequent removal in 2016. 3. Left rotator cuff surgery. 4. Left carpal tunnel surgery. 5. Tonsillectomy. 6. Insertion of a fistula into the right arm for dialysis. PAST MEDICAL HISTORY: 1. Renal failure. 2. Hypertension. 3. Diabetes. 4. Depression. 5. Reflux. 6. Deep venous thrombosis years ago after a fall. 7. Hypothyroidism. 8. Strep sepsis -- the patient did not know the source. 9. Pneumonia x2 in the past. ALLERGIES: LISINOPRIL, WHICH CAUSED A COUGH. FAMILY HISTORY: Mother age 84, diabetes, heart disease, hypertension and leukemia. Father age 84 from old age. She states that her father seemed to give up after her mother . REVIEW OF SYSTEMS: The patient does have restless legs. She snores. She talks in her sleep. She has some degree of sleep onset insomnia. She does sleep through since she is on dialysis. She has some extra tiredness during the day. The remainder of the review of systems is otherwise negative except as noted above. PHYSICAL EXAMINATION: GENERAL: The patient is a 71-year-old female who was cooperative, alert and oriented. She is in no distress. VITAL SIGNS: Temperature is 36.6. Heart rate was 54 per minute. The rhythm was regular. Blood pressure 134/55. HEENT: Pupils were reactive to light. She appears to have had prior cataract surgeries. Nares were clear. Mouth exam was negative. NECK: Palpation of the neck reveals no lymph nodes. CHEST: Normal expansion. Auscultation of the lung mahoney revealed some decreased breath sounds at the left base. No wheezes, rales or rhonchi were heard. The aeration was a little less than normal. Respiratory rate was 18 breaths per minute. Saturation was 92% on 3 liters. ABDOMEN: Soft. She had scars from prior surgeries. Bowel sounds were normal. There was no tenderness to palpation or masses. EXTREMITIES: Showed no cyanosis, clubbing or edema. LABORATORY DATA: White count is 8.26. Hemoglobin 8.9. Platelets 235,000. Coags were normal. Electrolytes show sodium 136, potassium 4.5, chloride 96, and bicarbonate 34. BUN was 41 with a creatinine of 5.2. Blood sugar today fasting was 70 and at 11:00 a.m., it was 160. Folate level was greater than 24. Vitamin B12 was 696. IMPRESSIONS: 1. Hypoxia, uncertain etiology. 2. Left base opacity -- rule out effusion versus atelectasis versus infiltrate versus technical. 3. Chronic obstructive pulmonary disease by history. 4. Obstructive sleep apnea by history -- diagnosed in 2009. COMMENTS AND RECOMMENDATIONS: The patient seems comfortable. We are waiting for a PA and lateral chest along with decubitus views. This may show more light on what is going on at the left lung base. She just had a CAT scan of the chest done very recently and thus, we were reluctant to order another one from a radiation perspective. Further recommendations can be made tomorrow by Dr. Frey, who will be seeing the patient. The patient should have pulmonary function tests as an outpatient. Consideration would be given to a repeat diagnostic sleep study in light of her history of sleep apnea with progressive symptoms. The patient seems reluctant to consider that at present. Thank you very much for asking me to assist in her care. SARTHAK
--- NOTE | 2017-03-07 16:51 | DIAGNOSTIC IMAGING REPORT ---
CHEST DECUBS CLINICAL HISTORY: 71 years-old Female presenting with F/U PLEURAL EFFUSION. TECHNIQUE: Bilateral decubitus views of the chest were obtained. COMPARISON: 03/06/2017. FINDINGS: Bilateral decubitus views demonstrate no pneumothorax. Left basilar opacity again noted. No large effusion. Surgical clips project over the epigastrium. Osseous structures normal. IMPRESSION: 1. No pneumothorax. 2. Assessment for pleural effusion is limited on decubitus views. No large effusion. 3. Persistent left basilar opacity. Electronically signed by: Omar Anaya M.D. 03/07/2017 4:50 PM Dictated Date/Time: 03/07/2017 4:48 PM
--- NOTE | 2017-03-07 16:56 | DIAGNOSTIC IMAGING REPORT ---
CHEST 2 VIEWS ROUTINE CLINICAL HISTORY: 71 years-old Female presenting with F/U PLEURAL EFFUSION. TECHNIQUE: PA and lateral views of the chest were obtained. COMPARISON: 03/07/2017 decubitus views. FINDINGS: Atherosclerosis of aortic arch. Cardiac silhouette enlarged. Left basilar opacity. Bilateral small pleural effusions. No pneumothorax. Degenerative changes of the thoracic spine. Surgical clips project over the epigastrium. IMPRESSION: 1. Left basilar opacity, possibly atelectasis although underlying consolidation/infection cannot be excluded. This is not significantly changed from prior. 2. Small bilateral pleural effusions, unchanged. 3. Cardiomegaly. Electronically signed by: Omar Anaya M.D. 03/07/2017 4:55 PM Dictated Date/Time: 03/07/2017 4:52 PM
[2017-03-07] MEDS: BOOST GLUCOSE CONTROL PO SCH (17:06)
[2017-03-07] MEDS ORDERED: VANCOMYCIN INJ 1,000 MG in SODIUM CHLORIDE 0.9% 250ML 250 ML IV STA (17:30)
--- NOTE | 2017-03-07 17:58 | Hospitalist Progress Note ---
Hospitalist Progress Note Date of Service Mar 07, 2017. Subjective Pt evaluation today including: conversation w/ patient, conversation w/ family , physical exam, conversation w/ freight traffic consultant (Pulmonology) Pt feeling better on supplemental O2. She denies fevers, denies cough, but did have significant SOB and hypoxia prior to arrival yesterday. Still requiring O2 today. Repeat CXR and lat decubs show persistent LLL infiltrate and small bilat pleural effusions. ECHO with new small pericardial effusion, no tamponade. BPs improved today. She reports her BP usually does go lower towards end of HD treatments. Her feet seem more swollen to her today than usual. She does get swelling at times but it always goes away with elevating her feet. Abdomen: + constipation All Other Systems: Reviewed and Negative Objective Vital Signs Date Time Temp Pulse Resp B/P (MAP) Pulse Ox O2 Delivery O2 Flow Rate FiO2 03/07/17 16:31 36.9 56 22 95/59 (71) 94 Nasal Cannula 2.0 03/07/17 16:00 Nasal Cannula 03/07/17 12:00 Nasal Cannula 03/07/17 11:24 36.6 66 18 134/55 (81) 92 3.0 03/07/17 08:00 36.6 57 18 134/77 (96) 96 3.0 03/07/17 08:00 Nasal Cannula 03/07/17 04:00 Nasal Cannula 3.0 03/07/17 03:55 36.6 52 14 145/57 (86) 89 Nasal Cannula 3.0 03/06/17 23:59 Nasal Cannula 3.0 03/06/17 23:55 36.5 47 14 120/57 (78) 93 Nasal Cannula 3.0 03/06/17 20:00 Nasal Cannula 3.0 03/06/17 19:25 36.9 57 16 177/78 (111) 96 Nasal Cannula 3.0 Physical Exam General Appearance: WD/WN, no apparent distress Eyes: normal inspection, sclerae normal ENT: hearing grossly normal Neck: trachea midline Respiratory/Chest: no respiratory distress, no accessory muscle use, + crackles (and decreased BS at bases bilat) Cardiovascular: regular rate, rhythm, + systolic murmur (2/6 at LLSB), + pertinent finding (2+ edema feet bilat, 2+ DP pulses bilat, 1+ pitting edema legs to mid tibiae bilat) Abdomen: normal bowel sounds, non tender, soft Extremities: non-tender Neurologic/Psychiatric: alert, normal mood/affect, oriented x 3 Skin: normal color, warm/dry, no rash Laboratory Results Last 24 Hours Test 03/06/17 20:12 03/07/17 05:33 03/07/17 07:11 03/07/17 11:09 Bedside Glucose 137 mg/dl 70 mg/dl 160 mg/dl White Blood Count 8.26 K/uL Red Blood Count 2.78 M/uL Hemoglobin 8.9 g/dL Hematocrit 28.5 % Mean Corpuscular Volume 102.5 fL Mean Corpuscular Hemoglobin 32.0 pg Mean Corpuscular Hemoglobin Concent 31.2 g/dl RDW Standard Deviation 57.1 fL RDW Coefficient of Variation 15.2 % Platelet Count 235 K/uL Mean Platelet Volume 9.3 fL Sodium Level 136 mmol/L Potassium Level 4.5 mmol/L Chloride Level 96 mmol/L Carbon Dioxide Level 34 mmol/L Anion Gap 6.0 mmol/L Blood Urea Nitrogen 41 mg/dl Creatinine 5.20 mg/dl Est Creatinine Clear Calc Drug Dose 10.3 ml/min Estimated GFR () 8.9 Estimated GFR (Non- 7.7 BUN/Creatinine Ratio 7.7 Random Glucose 67 mg/dl Calcium Level 8.8 mg/dl Vitamin B12 Level 696 pg/mL Folate > 24.00 ng/mL Test 03/07/17 16:16 Bedside Glucose 100 mg/dl Assessment and Plan 71 y/o F with a h/o ESRD on HD, HTN, DMII, macrocytic anemia, GERD with HH, Chronic diastolic CHF, hypothyroidism, depression, and dyslipidemia, with recent admission for pericarditis, who presents with hypoxia and worsening SOB as well as hypotension. Pt states that she has been having worsening SOB since 1-2 days after d/c from [facility] 5 days prior. She also had chest pain that radiated to her back with the prior admission and since she has been taking NSAIDs, she has had no return of chest pain. Pt states she was on O2 during her admission, however not for the last day. She had her O2 sats monitored and had no SOB on d/c. She started noting SOB with ambulation only 1-2 days after going home that progressed to SOB at rest at times. She went to her usual HD session today and was noted to be hypoxic. They put her on O2 there, which did help. They were able to do 2.5 hrs of her usual 4 hr HD, but had to stop due to low BP and HR. She was sent to the ED at that time. When she arrived, she was found to have an O2 sat of 82% on RA. Acute Hypoxemic respiratory failure: CXR with LLL probable PNA, small bilat pleural effusions that do not appear loculated on lateral decubitus films although hard to tell due to effusions being small. Must treat for HCAP given recent admission to hospital to cover for GNR and MRSA PNAs. ECHO last admission with EF 55-60% and neg for structural issues, with grade 1 diastolic CHF. Previous CXR and CTA Chest no effusions or PNA ECHO limited today with preserved EF, now with new small pericardial effusion likely secondary to pericarditis Some SOB with pulm edema could be due to not completing scheduled HD session -add vanco and continue Cefepime, Vanco to be given x 1 now, then dosed with HD based on troughs -no further chest pain, CTA CHest neg for PE on 02/25, PE not likely -Sputum cx not collected as no sputum, follow blood cx pending -Appreciate Pulm consult -will have extra HD session tomorrow and will see if volume taken off helps with hypoxia and effusions-appreciate Nephro c/s -will need 2-step prior to discharge Pericarditis: pain is resolved on NSAIDs, now with small pericardial effusion. Is on HD-uremia can cause pericarditis -continue ibuprofen 400mg po tid scheduled -Consult Cardiology regarding new effusion--> would appreciate recommendations for future follow up Bradycardia: noted on prior admission as well and Coreg dose lowered from 25 bid to 12.5 bid, BPs low normal Monitor, may need to adjust HTN medications--> defer to Cardiology HTN: improved -continue home meds of hydralazine 25 tid, Coreg 12.5 bid, felodipine 5mg tid -consider decreasing felodipine dose given significant peripheral edema and h /o hypotension Monitor closely as apparently there was hypoTN as HD ESRD: c/s renal T// normal days -plan for extra HD session Wednesday -continue binders, Nephrocaps DMII: HgbA1C 6.6% 01/2017 very well controlled - continue home Levemir + SSI Hypothyroidism-TSH normal last admission 2.3 -continue levothyroxine 100mmcg daily Anemia: likely related to ESRD in part, however this is macrocytic, hgb 8.9 B12, folate normal, could be bone marrow process/MDS? -receiving Epogen with HD -consider Hematology referral as outpt Chronic constipation-continue home lactulose Depression-stable -continue Celexa Proph-Heparin SQ Dispo-to home in 1-2 days Full code
[2017-03-07] MEDS ORDERED: VANCOMYCIN CONSULT ACTIVE PRN (18:00)
[2017-03-07] MEDS ORDERED: LACTULOSE SYRUP 30 GM/45 ML UDP PO ONE (18:00)
[2017-03-07] MEDS ORDERED: VANCOMYCIN INJ 2,000 MG in SODIUM CHLORIDE 0.9% 500ML 500 ML IV ONE (18:30)
[2017-03-07 19:47] VITALS: BP 140/62; PULSE 55; TEMP 36.9; O2SAT 92
[2017-03-07] MEDS: CITALOPRAM 40 MG TAB PO SCH (19:59)
[2017-03-07] MEDS: ATORVASTATIN 20 MG TAB PO SCH (19:59)
--- NOTE | 2017-03-07 20:32 | Pharmacy Progress Note ---
Pharmacy Abx Dose Short Note Date of Service Mar 07, 2017. Assessment & Plan Pt is a 71yo F being treated for HAP due to recent hospital stay. CXR w/ likely LLL PNA. Pt generally receives HD on a TuThSa regimen but will receive it (due to Saturdays being cut short 2/2 to HypoTN). U.O in previous admissions was minimal. Pt's BMI indicative of possible Vanco accumulation. Vanco: * Vanco 2000mg x1 @1830 to achieve a peak of about 32mcg/mL * Random Pre-HD lvl ordered for 03/08/17 * Trough goal: 15-20mcg/mL for HAP Cefepime: * Not consulted but appropriately dosed for HD Pharmacy will continue to follow and will adjust dose/frequency as necessary. Thank you.
[2017-03-07] MEDS ORDERED: NURSING VERBAL MED ORDER ONE (21:45)
[2017-03-07] MEDS ORDERED: MoRPHine SULFATE 2 MG/ML CARP IV ONE (22:00)
[2017-03-08] VITALS (28 sets, daily range): BP systolic 100–164; BP diastolic 34–87; PULSE 52–75; TEMP 36.4–37.5; O2SAT 92–96
[2017-03-08] MEDS: LEVOTHYROXINE 100 MCG TAB PO SCH (06:05)
[2017-03-08] MEDS: HEPARIN SOD 5000 UNIT/0.5 ML CARP SQ SCH ×3 (06:06→21:37)
[2017-03-08 06:24] LABS: BASO % 0.6 %; BASO ABS # 0.05 K/uL (0-0.2); COMPLETE YES; EOS % 3.4 %; HEMATOCRIT 29.8 % (37-47); IG% 0.9 %; LYMPH % 16.4 %; LYMPH ABS # 1.41 K/uL (1.2-3.4); MEAN CELL VOLUME 100.7 fL (80-100); MEAN CORPUSCULAR HEMOGLOBIN 31.1 pg (25-34); MEAN CORPUSCULAR HGB CONC 30.9 g/dl (32-36); MEAN PLATELET VOLUME 9.1 fL (7.4-10.4); MONO % 12.1 %; NEUT % 66.6 %; PLATELET COUNT 233 K/uL (130-400); RED BLOOD COUNT 2.96 M/uL (4.2-5.4); WHITE BLOOD COUNT 8.62 K/uL (4.8-10.8)
[2017-03-08] MEDS: INSULIN ASPART 100 UNITS/ML 3 ML PEN SC SCH ×4 (07:00→21:37)
[2017-03-08 07:07] LABS: BUN/CREATININE RATIO 9.1 (10-20); CALCIUM 8.8 mg/dl (8.5-10.1); CREATININE 6.4 mg/dl (0.60-1.20); MAGNESIUM 2.9 mg/dl (1.8-2.4); POTASSIUM 4.8 mmol/L (3.5-5.1)
[2017-03-08] MEDS: BOOST GLUCOSE CONTROL PO SCH ×3 (07:30→15:00)
[2017-03-08] MEDS: FELODIPINE 5 MG TABCR PO SCH ×3 (07:59→21:34)
[2017-03-08] MEDS: SACCHAROMYCES BOUL (FLORASTOR) 250 MG CAP PO SCH (07:59)
[2017-03-08] MEDS: IBUPROFEN 200 MG TAB PO SCH ×3 (07:59→21:35)
[2017-03-08] MEDS: NEPHROCAPS PO SCH (07:59)
[2017-03-08] MEDS: ASPIRIN 81 MG ECTAB PO SCH (08:00)
[2017-03-08] MEDS: SUCRALFATE 1 GM/10 ML UDC PO SCH ×4 (08:00→21:35)
[2017-03-08] MEDS: PANTOprazole SOD 40 MG TAB PO SCH ×2 (08:01→21:34)
[2017-03-08] MEDS: MAGNESIUM OXIDE 400 MG TAB PO SCH (08:01)
[2017-03-08] MEDS: LACTULOSE SYRUP 30 GM/45 ML UDP PO SCH (08:01)
[2017-03-08] MEDS: CALCIUM ACETATE 667MG GELCAP PO SCH ×3 (08:02→16:15)
[2017-03-08] MEDS: CEFEPIME IV 2,000 MG in DEXTROSE 5% 100ML 100 ML IV SCH (08:05)
[2017-03-08] MEDS: INSULIN DETEMIR FLEXPEN/FLEX TOUCH 100 UNITS/ML 3ML SC SCH (08:06)
[2017-03-08] MEDS: CARVEDILOL 12.5 MG TAB PO SCH (08:11)
--- NOTE | 2017-03-08 09:10 | Cardiology Consultation ---
Cardiology Consultation Date of Consultation: Mar 08, 2017. Requesting Physician: Dr. Camejo Reason for Consultation: SOB Pt evaluation today including: conversation w/ patient, physical exam, lab review, review of studies, review of inpatient medication list, conversation w/ attending History of Present Illness This is a very pleasant 71-year-old woman who was recently hospitalized for chest discomfort which turned out to be pericarditis, additionally she was found to be bradycardic for reasons which were not clear as her beta ramesh had evidently not been increased. She was treated with nonsteroidal agents which eliminated symptoms related to the pericarditis, she did not have a significant effusion during that admission. Her beta ramesh was also reduced. She was therefore discharged on Motrin for her pericarditis and a reduced dose of carvedilol (12.5 mg twice a day instead of 25). She returns now with shortness of breath and hypoxia. She has had no recurrence of her chest discomfort, she has been taking the reduced dose of carvedilol and has no lightheadedness or dizziness but she did have some hypotension on dialysis (which is not unusual). At the time of my evaluation this morning she was feeling well and had no complaints. She was lying supine in bed. Past Medical/Surgical History (1) Hypertension (2) Anemia (3) Dependent on hemodialysis (4) Diabetes mellitus Family History Diabetes mellitus Heart disease Hypertension Kidney disease Kidney stones Social History Smoking Status: Never Smoker History of Alcohol Use: No Review of Systems Constitutional: No fever, No weight loss, No weakness Respiratory: + see HPI, + shortness of breath, No cough, No wheezing, No dyspnea on exertion Cardiac: + edema, No chest pain, No orthopnea, No PND, No palpitations Abdomen: No pain, No nausea, No vomiting, No diarrhea, No GI bleeding Female : No problem reported Neurologic: No paralysis, No weakness, No numbness/tingling, No balance problems Heme: No abnormal bleeding/bruising, No clotting problems Endo: No fatigue Skin: No problem reported All Other Systems: Reviewed and Negative Allergies Coded Allergies: Lisinopril (Verified Adverse Reaction, Intermediate, cough, 03/06/17) Medications Current Inpatient Medications Medications (Trade) Dose Ordered Sig/Vaibhav Route Start Time Stop Time Status Last Admin Dose Admin Heparin Sodium (Porcine) (Heparin Sq 5000 Unit/0.5ml) 5,000 unit Q8 SQ 03/06/17 22:00 04/05/17 21:59 03/08/17 08:06 5,000 UNIT Acetaminophen (Tylenol Tab) 650 mg Q4H PRN PO 03/06/17 11:15 04/05/17 11:14 Magnesium Hydroxide (Milk Of Magnesia Susp) 30 ml Q12H PRN PO 03/06/17 11:15 04/05/17 11:14 Ondansetron HCl (Zofran Inj) 4 mg Q6H PRN IV 03/06/17 11:15 04/05/17 11:14 Insulin Aspart (novoLOG ASPART) SLIDING SCALE If C... ACHS SC 03/06/17 16:15 04/05/17 16:14 03/07/17 17:09 11 UNITS Glucose (Glucose 40% Gel) 15-30 GRAMS 15 GRAMS... UD PRN PO 03/06/17 11:15 04/05/17 11:14 Glucose (Glucose Chew Tab) 4-8 Tablets 4 Tabl... UD PRN PO 03/06/17 11:15 04/05/17 11:14 Dextrose (Dextrose 50% 50ML Syringe) 25-50ML OF 50% DW IV FOR... UD PRN IV 03/06/17 11:15 04/05/17 11:14 Glucagon (Glucagon Inj) 1 mg UD PRN SQ 03/06/17 11:15 04/05/17 11:14 Cefepime HCl 2000 mg/Dextrose 112.5 ml @ 200 mls/hr DAILY@0900 IV 03/07/17 09:00 03/14/17 08:59 03/08/17 08:05 200 MLS/HR Saccharomyces Boulardii (Florastor Cap) 250 mg DAILY PO 03/07/17 09:00 04/06/17 08:59 03/08/17 07:59 250 MG Aspirin (Ecotrin Tab) 81 mg DAILY PO 03/07/17 09:00 04/06/17 08:59 03/08/17 08:00 81 MG Atorvastatin Calcium (Lipitor Tab) 20 mg HS PO 03/06/17 21:00 04/05/17 20:59 03/07/17 19:59 20 MG Calcium Acetate (Phoslo Cap) 667 mg TIDM PO 03/06/17 16:45 04/05/17 16:44 03/08/17 08:02 667 MG Carvedilol (Coreg Tab) 12.5 mg BID PO 03/06/17 21:00 04/05/17 20:59 03/07/17 07:39 12.5 MG Citalopram Hydrobromide (celeXA TAB) 40 mg HS PO 03/06/17 21:00 04/05/17 20:59 03/07/17 19:59 40 MG Felodipine (Plendil Tabcr) 5 mg TID PO 03/06/17 21:00 04/05/17 20:59 03/08/17 07:59 5 MG Gabapentin (Neurontin Cap) 100 mg TuThSa@0800 PO 03/09/17 08:00 04/08/17 07:59 Hydralazine HCl (Apresoline Tab) 25 mg TID PO 03/06/17 21:00 04/05/17 20:59 03/07/17 19:59 25 MG Insulin Detemir (Levemir Flexpen/ FlexTouch) 15 units Q12 SC 03/06/17 21:00 04/05/17 20:59 03/08/17 08:06 15 UNITS Levothyroxine Sodium (Synthroid Tab) 100 mcg DAILYBB PO 03/07/17 06:00 04/06/17 05:59 03/08/17 06:05 100 MCG Pantoprazole Sodium (Protonix Tab) 40 mg BID PO 03/06/17 21:00 04/05/17 20:59 03/08/17 08:01 40 MG Vitamin B Complex/ Vit C/Folic Acid (Nephrocaps) 1 cap QAM PO 03/07/17 09:00 04/06/17 08:59 03/08/17 07:59 1 CAP Magnesium Oxide (Mag-Ox Tab) 400 mg QAM PO 03/07/17 09:00 04/06/17 08:59 03/08/17 08:01 400 MG Ibuprofen (Advil Tab) 400 mg TID PO 03/07/17 14:00 04/06/17 13:59 03/08/17 07:59 400 MG Sucralfate (Carafate Susp) 1 gm QID PO 03/07/17 17:00 04/06/17 16:59 03/08/17 08:00 1 GM Enteral Nutritional Formula (Boost Glucose Control) 1 can TIDM PO 03/07/17 16:45 04/06/17 16:44 03/08/17 07:30 1 CAN Lactulose (Chronulac Syrup) 30 gm DAILY PO 03/08/17 09:00 04/07/17 08:59 03/08/17 08:01 30 GM Vancomycin HCl (Consult) 1 ea UD PRN N/A 03/07/17 18:00 04/06/17 17:59 Physical Exam Vital Signs Past 12 Hours Date Time Temp Pulse Resp B/P (MAP) Pulse Ox O2 Delivery O2 Flow Rate FiO2 03/08/17 07:39 36.8 54 18 154/87 (109) 95 3.0 03/08/17 04:03 36.6 54 19 142/62 (88) 92 Nasal Cannula 4.0 03/08/17 04:00 Nasal Cannula 4.0 03/08/17 00:24 36.6 52 16 138/85 (102) 93 Nasal Cannula 3.0 03/07/17 23:59 Nasal Cannula 3.0 Constitutional: General Apperance: heathly-appearing Level of Distress: NAD Psychiatric: Mental Status: active & alert Head: normocephalic Eyes: EOM: EOMI ENMT: normal ENT inspection, hearing grossly normal Neck: supple, no masses Lungs: Respiratory effort: no dyspnea, good air movement Auscultation: no wheezing, rales/crackles on the left, rales/crackles on the right Cardiovascular: Heart Auscultation: RRR, no murmurs, no rubs, no gallops, bradycardia Peripheral Pulses: Bruits: none appreciated Abdomen: Bowel Sounds: normal Inspection & Palpation: soft, no tenderness, guarding & rebound, no masses Musculoskeletal: normal strength (5/5 throughout) Extremities: no edema Neurologic: Cranial Nerves: grossly intact Sensation: grossly intact Data Laboratory Results: Last 24 Hours Test 03/07/17 11:09 03/07/17 16:16 03/07/17 18:44 03/07/17 18:46 Bedside Glucose 160 mg/dl 100 mg/dl 48 mg/dl 45 mg/dl Test 03/07/17 19:04 03/07/17 19:32 03/07/17 22:16 03/08/17 06:02 Bedside Glucose 72 mg/dl 104 mg/dl 166 mg/dl White Blood Count 8.62 K/uL Red Blood Count 2.96 M/uL Hemoglobin 9.2 g/dL Hematocrit 29.8 % Mean Corpuscular Volume 100.7 fL Mean Corpuscular Hemoglobin 31.1 pg Mean Corpuscular Hemoglobin Concent 30.9 g/dl Platelet Count 233 K/uL Mean Platelet Volume 9.1 fL Neutrophils (%) (Auto) 66.6 % Lymphocytes (%) (Auto) 16.4 % Monocytes (%) (Auto) 12.1 % Eosinophils (%) (Auto) 3.4 % Basophils (%) (Auto) 0.6 % Neutrophils # (Auto) 5.75 K/uL Lymphocytes # (Auto) 1.41 K/uL Monocytes # (Auto) 1.04 K/uL Eosinophils # (Auto) 0.29 K/uL Basophils # (Auto) 0.05 K/uL RDW Standard Deviation 54.6 fL RDW Coefficient of Variation 14.9 % Immature Granulocyte % (Auto) 0.9 % Immature Granulocyte # (Auto) 0.08 K/uL Sodium Level 134 mmol/L Potassium Level 4.8 mmol/L Chloride Level 96 mmol/L Carbon Dioxide Level 29 mmol/L Anion Gap 9.0 mmol/L Blood Urea Nitrogen 58 mg/dl Creatinine 6.40 mg/dl Est Creatinine Clear Calc Drug Dose 8.8 ml/min Estimated GFR () 7.0 Estimated GFR (Non- 6.0 BUN/Creatinine Ratio 9.1 Random Glucose 127 mg/dl Calcium Level 8.8 mg/dl Magnesium Level 2.9 mg/dl Random Vancomycin Level 24.6 mcg/ml Test 03/08/17 06:08 Bedside Glucose 123 mg/dl Imaging: CXR: Consistent with CHF I think Echo: Small effusion, not clinically significant, but appears to be new EKG: SB, nonspecific ST-T abnormalities Telemetry reviewed: SB, no arrhythmia Assessment & Plan #1. SOB: I believe this is primarily CHF from fluid overload, I'm not sure why that has happened. Her weights are hard to interpret as the bed skills being used and there is wide fluctuation and daily weights on her prior admission. She feels that her weight has been increasing while measured in dialysis but she isn't sure how much. Agree with fluid removal and see if symptoms correct. I do not think there is a cardiovascular cause for congestive heart failure or fluid retention. #2. Pericarditis: The development of an effusion is confirmatory, but does not change the treatment and it is not large enough to warrant additional treatment (such as pericardiocentesis or steroids). The symptoms have resolved with nonsteroidal anti-inflammatory agents, I would recommend continuing Motrin. We will need to monitor her effusion for worsening. #3. Bradycardia: The cause of this is uncertain, it had been a gradual trend last admission. We reduced the dose of carvedilol, and she confirms she was taking 25 mg BID prior to last admission, now 12.5 BID and still bradycardic ( although better). She doesn't need beta blockade for any cardiac reason, so I will discontinue. Hopefully we can control BP otherwise. I don't think this would cause her current presentation. Thank you for allowing me to participate in her care.
--- NOTE | 2017-03-08 10:10 | Nephrology Progress Note ---
Nephrology Progress Note Date of Service Mar 08, 2017. Chief Complaint Follow-up for end-stage renal disease on hemodialysis. Jorge Watson was seen and examined in her room this morning. Shortness of breath slightly improved, denies any chest pain. Had an episode of hypoglycemia when she fell lightheaded and sweaty, had some orange juice and blood sugar improved. Blood pressure has been stable. Review of Systems A complete review of systems was performed. Pertinent positives are noted above. All other systems are negative. Vital Signs Last 8 Hrs Date Time Temp Pulse Resp B/P (MAP) Pulse Ox O2 Delivery O2 Flow Rate FiO2 03/08/17 09:38 36.4 58 153/69 (97) 03/08/17 08:20 95 Nasal Cannula 4.0 03/08/17 07:39 36.8 54 18 154/87 (109) 95 3.0 03/08/17 04:03 36.6 54 19 142/62 (88) 92 Nasal Cannula 4.0 03/08/17 04:00 Nasal Cannula 4.0 Last Recorded Weight Weight (Kilograms): 101.500 Physical Exam GENERAL: Elderly female, AAA x 3, pleasant, healthy-appearing, not in any distress. NECK: Supple, no JVD. RESPIRATORY: Decreased breath sounds and rales bilaterally CARDIOVASCULAR: S1, S2 normal, rate rhythm regular. EXTREMITY: Trace bilateral lower extremity edema NEURO: speech fluent. PSYCHIATRY: Normal mood and judgment Family History Diabetes mellitus Heart disease Hypertension Kidney disease Kidney stones Social History Smoking Status: Never smoker Alcohol Use: none Drug Use: none Marital Status: Housing Status: lives with family Occupation: retired Laboratory Results Past 24 Hours 03/08/17 06:02 Red Blood Count 2.96, Mean Corpuscular Volume 100.7, Mean Corpuscular Hemoglobin 31.1, Mean Corpuscular Hemoglobin Concent 30.9, Mean Platelet Volume 9.1, Neutrophils (%) (Auto) 66.6, Lymphocytes (%) (Auto) 16.4, Monocytes (%) ( Auto) 12.1, Eosinophils (%) (Auto) 3.4, Basophils (%) (Auto) 0.6, Neutrophils # (Auto) 5.75, Lymphocytes # (Auto) 1.41, Monocytes # (Auto) 1.04, Eosinophils # ( Auto) 0.29, Basophils # (Auto) 0.05 03/08/17 06:02 Test 03/07/17 11:09 03/07/17 16:16 03/07/17 18:44 03/07/17 18:46 Bedside Glucose 160 mg/dl (70-90) 100 mg/dl (70-90) 48 mg/dl (70-90) 45 mg/dl (70-90) Test 03/07/17 19:04 03/07/17 19:32 03/07/17 22:16 03/08/17 06:02 Bedside Glucose 72 mg/dl (70-90) 104 mg/dl (70-90) 166 mg/dl (70-90) White Blood Count 8.62 K/uL (4.8-10.8) Red Blood Count 2.96 M/uL (4.2-5.4) Hemoglobin 9.2 g/dL (12.0-16.0) Hematocrit 29.8 % (37-47) Mean Corpuscular Volume 100.7 fL (80-100) Mean Corpuscular Hemoglobin 31.1 pg (25-34) Mean Corpuscular Hemoglobin Concent 30.9 g/dl (32-36) Platelet Count 233 K/uL (130-400) Mean Platelet Volume 9.1 fL (7.4-10.4) Neutrophils (%) (Auto) 66.6 % Lymphocytes (%) (Auto) 16.4 % Monocytes (%) (Auto) 12.1 % Eosinophils (%) (Auto) 3.4 % Basophils (%) (Auto) 0.6 % Neutrophils # (Auto) 5.75 K/uL (1.4-6.5) Lymphocytes # (Auto) 1.41 K/uL (1.2-3.4) Monocytes # (Auto) 1.04 K/uL (0.11-0.59) Eosinophils # (Auto) 0.29 K/uL (0-0.5) Basophils # (Auto) 0.05 K/uL (0-0.2) RDW Standard Deviation 54.6 fL (36.4-46.3) RDW Coefficient of Variation 14.9 % (11.5-14.5) Immature Granulocyte % (Auto) 0.9 % Immature Granulocyte # (Auto) 0.08 K/uL (0.00-0.02) Anion Gap 9.0 mmol/L (3-11) Est Creatinine Clear Calc Drug Dose 8.8 ml/min Estimated GFR () 7.0 Estimated GFR (Non- 6.0 BUN/Creatinine Ratio 9.1 (10-20) Calcium Level 8.8 mg/dl (8.5-10.1) Magnesium Level 2.9 mg/dl (1.8-2.4) Random Vancomycin Level 24.6 mcg/ml Test 03/08/17 06:08 Bedside Glucose 123 mg/dl (70-90) Date/Time Source Procedure Growth Status 03/07/17 18:00 Nasal MRSA DNA Surveillance Screen - Final Specimen Negative for MRSA by DNA Probe Complete Allergies Coded Allergies: Lisinopril (Verified Adverse Reaction, Intermediate, cough, 03/06/17) Medications Current Inpatient Medications Medications (Trade) Dose Ordered Sig/Vaibhav Route Start Time Stop Time Status Last Admin Dose Admin Heparin Sodium (Porcine) (Heparin Sq 5000 Unit/0.5ml) 5,000 unit Q8 SQ 03/06/17 22:00 04/05/17 21:59 03/08/17 08:06 5,000 UNIT Acetaminophen (Tylenol Tab) 650 mg Q4H PRN PO 03/06/17 11:15 04/05/17 11:14 Magnesium Hydroxide (Milk Of Magnesia Susp) 30 ml Q12H PRN PO 03/06/17 11:15 04/05/17 11:14 Ondansetron HCl (Zofran Inj) 4 mg Q6H PRN IV 03/06/17 11:15 04/05/17 11:14 Insulin Aspart (novoLOG ASPART) SLIDING SCALE If C... ACHS SC 03/06/17 16:15 04/05/17 16:14 03/07/17 17:09 11 UNITS Glucose (Glucose 40% Gel) 15-30 GRAMS 15 GRAMS... UD PRN PO 03/06/17 11:15 04/05/17 11:14 Glucose (Glucose Chew Tab) 4-8 Tablets 4 Tabl... UD PRN PO 03/06/17 11:15 04/05/17 11:14 Dextrose (Dextrose 50% 50ML Syringe) 25-50ML OF 50% DW IV FOR... UD PRN IV 03/06/17 11:15 04/05/17 11:14 Glucagon (Glucagon Inj) 1 mg UD PRN SQ 03/06/17 11:15 04/05/17 11:14 Cefepime HCl 2000 mg/Dextrose 112.5 ml @ 200 mls/hr DAILY@0900 IV 03/07/17 09:00 03/14/17 08:59 03/08/17 08:05 200 MLS/HR Saccharomyces Boulardii (Florastor Cap) 250 mg DAILY PO 03/07/17 09:00 04/06/17 08:59 03/08/17 07:59 250 MG Aspirin (Ecotrin Tab) 81 mg DAILY PO 03/07/17 09:00 04/06/17 08:59 03/08/17 08:00 81 MG Atorvastatin Calcium (Lipitor Tab) 20 mg HS PO 03/06/17 21:00 04/05/17 20:59 03/07/17 19:59 20 MG Calcium Acetate (Phoslo Cap) 667 mg TIDM PO 03/06/17 16:45 04/05/17 16:44 03/08/17 08:02 667 MG Citalopram Hydrobromide (celeXA TAB) 40 mg HS PO 03/06/17 21:00 04/05/17 20:59 03/07/17 19:59 40 MG Felodipine (Plendil Tabcr) 5 mg TID PO 03/06/17 21:00 04/05/17 20:59 03/08/17 07:59 5 MG Gabapentin (Neurontin Cap) 100 mg TuThSa@0800 PO 03/09/17 08:00 04/08/17 07:59 Hydralazine HCl (Apresoline Tab) 25 mg TID PO 03/06/17 21:00 04/05/17 20:59 03/07/17 19:59 25 MG Insulin Detemir (Levemir Flexpen/ FlexTouch) 15 units Q12 SC 03/06/17 21:00 04/05/17 20:59 03/08/17 08:06 15 UNITS Levothyroxine Sodium (Synthroid Tab) 100 mcg DAILYBB PO 03/07/17 06:00 04/06/17 05:59 03/08/17 06:05 100 MCG Pantoprazole Sodium (Protonix Tab) 40 mg BID PO 03/06/17 21:00 04/05/17 20:59 03/08/17 08:01 40 MG Vitamin B Complex/ Vit C/Folic Acid (Nephrocaps) 1 cap QAM PO 03/07/17 09:00 04/06/17 08:59 03/08/17 07:59 1 CAP Magnesium Oxide (Mag-Ox Tab) 400 mg QAM PO 03/07/17 09:00 04/06/17 08:59 03/08/17 08:01 400 MG Ibuprofen (Advil Tab) 400 mg TID PO 03/07/17 14:00 04/06/17 13:59 03/08/17 07:59 400 MG Sucralfate (Carafate Susp) 1 gm QID PO 03/07/17 17:00 04/06/17 16:59 03/08/17 08:00 1 GM Enteral Nutritional Formula (Boost Glucose Control) 1 can TIDM PO 03/07/17 16:45 04/06/17 16:44 03/08/17 07:30 1 CAN Lactulose (Chronulac Syrup) 30 gm DAILY PO 03/08/17 09:00 04/07/17 08:59 03/08/17 08:01 30 GM Vancomycin HCl (Consult) 1 ea UD PRN N/A 03/07/17 18:00 04/06/17 17:59 Impression 71-year-old female with end-stage renal disease on hemodialysis, admitted to the hospital with shortness of breath and hypoxia and diagnosed with possible pneumonia and started on empiric antibiotic. She continues to have mild shortness of breath and difficulty taking deep breath but denied chest pain, fever, chills, cough or sputum production. She remained afebrile, no leukocytosis. Recent diagnosis of pericarditis, has been on ibuprofen. Currently O2 sats normal with 3 liters nasal cannula oxygen, blood pressure and heart rate acceptable. Volume status acceptable. Electrolyte remain acceptable. Recommendations --plan for 4 hours dialysis treatment this morning with 2 K bath and UF as tolerated spell --avoid IV fluid, continue on renal diet --will give Epogen with hemodialysis --continue on boost 1 can t.i.d.and phosphate binders Will follow
--- NOTE | 2017-03-08 14:17 | Pharmacy Progress Note ---
Pharmacy Abx Dose Short Note Date of Service Mar 08, 2017. Assessment & Plan Assessment 71 year old female with ESRD (HD ) receiving Vancomycin/Cefepime IV for treatment of pneumonia. Day # 2 of antimicrobial therapy. Plan Vancomycin * Trough level of 24.6 mcg/mL is supratherapeutic. * Hold dose and re-evaluate level in the AM. * Goal pre- HD level: 15-20 mcg/mL Pharmacy will continue to follow and will adjust dose/frequency as necessary. Thank you.
--- NOTE | 2017-03-08 15:17 | Pulmonology Progress Note ---
Pulmonary Progress Note Date of Service Mar 08, 2017. Attending Dr. Frey Subjective Patient seen and examined. She was very tearful after HD. States that she is tired and never going to get better. She still complained of mild shortness of breath. States that she just wants to rest. Objective VS reviewed. Tm 37.5, BP 100/54-156/70, P 52-75, RR 16-19, SaO2 92-95% on 3-4 L NC, Currently 1500 ml negative. Gen:AAOx3, NAD, speaking in full sentences with out of accessory muscles CVS: S1, S2, RRR Lungs: diminished breath sound on LLL, good air entry otherwise. Abd: soft/NT/NT/BS+ Ext:no edema, no cyanosis, no clubbing Labs reviewed. Imaging viewed and reviewed by me. TTE 03/07/2017 * -- Conclusions -- * Limited views were obtained. * Left ventricular systolic function is normal. * Small pericardial effusion. * No evidence of cardiac tamponade. * Compared to an echocardiogram from 02/26/2017, there has been interim development of a pericardial effusion. Medications reviewed. Assessment & Plan 1. Hypoxia, uncertain etiology. 2. Left base opacity 3. Chronic obstructive pulmonary disease by history. 4. Obstructive sleep apnea by history -- diagnosed in 2009. 5. Bilateral pleural effusions 6. Pericardial effusion Continue with supplemental oxygenation to maintain SaO2 >92%. If she should decompensate consider BIPAP for work up breathing. Consider sending BNP to evaluate for fluid overload. Continue with HD per nephrology for fluid removal. Pleural effusions on CT are bilateral in nature and most likely due to underlying CHF. Left base opacity--Continue with incentive spirometry. Obtain sputum cultures and de-escalate antibiotics. Patient has pericardial effusion, TTE shows no signs of tamponade and she is currently hemodynamically stable. The patient should have pulmonary function tests as an outpatient. Consider sleep study as out patient. Data Medications: Current Inpatient Medications Medications (Trade) Dose Ordered Sig/Vaibhav Route Start Time Stop Time Status Last Admin Dose Admin Heparin Sodium (Porcine) (Heparin Sq 5000 Unit/0.5ml) 5,000 unit Q8 SQ 03/06/17 22:00 04/05/17 21:59 03/08/17 08:06 5,000 UNIT Acetaminophen (Tylenol Tab) 650 mg Q4H PRN PO 03/06/17 11:15 04/05/17 11:14 Magnesium Hydroxide (Milk Of Magnesia Susp) 30 ml Q12H PRN PO 03/06/17 11:15 04/05/17 11:14 Ondansetron HCl (Zofran Inj) 4 mg Q6H PRN IV 03/06/17 11:15 04/05/17 11:14 Insulin Aspart (novoLOG ASPART) SLIDING SCALE If C... ACHS SC 03/06/17 16:15 04/05/17 16:14 03/07/17 17:09 11 UNITS Glucose (Glucose 40% Gel) 15-30 GRAMS 15 GRAMS... UD PRN PO 03/06/17 11:15 04/05/17 11:14 Glucose (Glucose Chew Tab) 4-8 Tablets 4 Tabl... UD PRN PO 03/06/17 11:15 04/05/17 11:14 Dextrose (Dextrose 50% 50ML Syringe) 25-50ML OF 50% DW IV FOR... UD PRN IV 03/06/17 11:15 04/05/17 11:14 Glucagon (Glucagon Inj) 1 mg UD PRN SQ 03/06/17 11:15 04/05/17 11:14 Cefepime HCl 2000 mg/Dextrose 112.5 ml @ 200 mls/hr DAILY@0900 IV 03/07/17 09:00 03/14/17 08:59 03/08/17 08:05 200 MLS/HR Saccharomyces Boulardii (Florastor Cap) 250 mg DAILY PO 03/07/17 09:00 04/06/17 08:59 03/08/17 07:59 250 MG Aspirin (Ecotrin Tab) 81 mg DAILY PO 03/07/17 09:00 04/06/17 08:59 03/08/17 08:00 81 MG Atorvastatin Calcium (Lipitor Tab) 20 mg HS PO 03/06/17 21:00 04/05/17 20:59 03/07/17 19:59 20 MG Calcium Acetate (Phoslo Cap) 667 mg TIDM PO 03/06/17 16:45 04/05/17 16:44 03/08/17 08:02 667 MG Citalopram Hydrobromide (celeXA TAB) 40 mg HS PO 03/06/17 21:00 04/05/17 20:59 03/07/17 19:59 40 MG Felodipine (Plendil Tabcr) 5 mg TID PO 03/06/17 21:00 04/05/17 20:59 03/08/17 14:35 5 MG Gabapentin (Neurontin Cap) 100 mg TuThSa@0800 PO 03/09/17 08:00 04/08/17 07:59 Hydralazine HCl (Apresoline Tab) 25 mg TID PO 03/06/17 21:00 04/05/17 20:59 03/08/17 14:34 25 MG Insulin Detemir (Levemir Flexpen/ FlexTouch) 15 units Q12 SC 03/06/17 21:00 04/05/17 20:59 03/08/17 08:06 15 UNITS Levothyroxine Sodium (Synthroid Tab) 100 mcg DAILYBB PO 03/07/17 06:00 04/06/17 05:59 03/08/17 06:05 100 MCG Pantoprazole Sodium (Protonix Tab) 40 mg BID PO 03/06/17 21:00 04/05/17 20:59 03/08/17 08:01 40 MG Vitamin B Complex/ Vit C/Folic Acid (Nephrocaps) 1 cap QAM PO 03/07/17 09:00 04/06/17 08:59 03/08/17 07:59 1 CAP Magnesium Oxide (Mag-Ox Tab) 400 mg QAM PO 03/07/17 09:00 04/06/17 08:59 03/08/17 08:01 400 MG Ibuprofen (Advil Tab) 400 mg TID PO 03/07/17 14:00 04/06/17 13:59 03/08/17 14:35 400 MG Sucralfate (Carafate Susp) 1 gm QID PO 03/07/17 17:00 04/06/17 16:59 03/08/17 08:00 1 GM Enteral Nutritional Formula (Boost Glucose Control) 1 can TIDM PO 03/07/17 16:45 04/06/17 16:44 03/08/17 07:30 1 CAN Lactulose (Chronulac Syrup) 30 gm DAILY PO 03/08/17 09:00 04/07/17 08:59 03/08/17 08:01 30 GM Vancomycin HCl (Consult) 1 ea UD PRN N/A 03/07/17 18:00 04/06/17 17:59 I & O: 24-Hour Column 03/09/17 07:59 Intake Total 460 ml Output Total 3301 ml Balance -2841 ml Vital Signs: Date Time Temp Pulse Resp B/P (MAP) Pulse Ox O2 Delivery O2 Flow Rate FiO2 03/08/17 14:30 95 Nasal Cannula 4.0 03/08/17 14:17 37.5 64 134/65 (88) 03/08/17 13:30 71 114/66 03/08/17 13:15 69 119/42 03/08/17 13:00 70 122/54 03/08/17 12:45 66 124/37 03/08/17 12:30 64 102/38 03/08/17 12:15 75 112/60 03/08/17 12:00 57 100/54 03/08/17 11:45 64 116/56 03/08/17 11:30 56 114/57 03/08/17 11:15 58 101/53 03/08/17 11:00 59 115/54 03/08/17 10:45 56 119/34 03/08/17 10:30 61 142/44 03/08/17 10:15 66 138/55 03/08/17 10:00 55 139/63 03/08/17 09:42 56 156/70 03/08/17 09:38 36.4 58 153/69 (97) 03/08/17 08:20 95 Nasal Cannula 4.0 03/08/17 07:39 36.8 54 18 154/87 (109) 95 3.0 03/08/17 04:03 36.6 54 19 142/62 (88) 92 Nasal Cannula 4.0 03/08/17 04:00 Nasal Cannula 4.0 03/08/17 00:24 36.6 52 16 138/85 (102) 93 Nasal Cannula 3.0 03/07/17 23:59 Nasal Cannula 3.0 03/07/17 20:00 Nasal Cannula 3.0 03/07/17 19:47 36.9 55 24 140/62 (88) 92 Nasal Cannula 2.0 03/07/17 16:31 36.9 56 22 95/59 (71) 94 Nasal Cannula 2.0 03/07/17 16:00 Nasal Cannula Laboratory Results: Last 24 Hours Test 03/07/17 16:16 03/07/17 18:46 03/07/17 19:04 03/07/17 19:32 Bedside Glucose 100 mg/dl 45 mg/dl 72 mg/dl 104 mg/dl Test 03/07/17 22:16 03/08/17 06:02 03/08/17 06:08 Bedside Glucose 166 mg/dl 123 mg/dl White Blood Count 8.62 K/uL Red Blood Count 2.96 M/uL Hemoglobin 9.2 g/dL Hematocrit 29.8 % Mean Corpuscular Volume 100.7 fL Mean Corpuscular Hemoglobin 31.1 pg Mean Corpuscular Hemoglobin Concent 30.9 g/dl Platelet Count 233 K/uL Mean Platelet Volume 9.1 fL Neutrophils (%) (Auto) 66.6 % Lymphocytes (%) (Auto) 16.4 % Monocytes (%) (Auto) 12.1 % Eosinophils (%) (Auto) 3.4 % Basophils (%) (Auto) 0.6 % Neutrophils # (Auto) 5.75 K/uL Lymphocytes # (Auto) 1.41 K/uL Monocytes # (Auto) 1.04 K/uL Eosinophils # (Auto) 0.29 K/uL Basophils # (Auto) 0.05 K/uL RDW Standard Deviation 54.6 fL RDW Coefficient of Variation 14.9 % Immature Granulocyte % (Auto) 0.9 % Immature Granulocyte # (Auto) 0.08 K/uL Sodium Level 134 mmol/L Potassium Level 4.8 mmol/L Chloride Level 96 mmol/L Carbon Dioxide Level 29 mmol/L Anion Gap 9.0 mmol/L Blood Urea Nitrogen 58 mg/dl Creatinine 6.40 mg/dl Est Creatinine Clear Calc Drug Dose 8.8 ml/min Estimated GFR () 7.0 Estimated GFR (Non- 6.0 BUN/Creatinine Ratio 9.1 Random Glucose 127 mg/dl Calcium Level 8.8 mg/dl Magnesium Level 2.9 mg/dl Random Vancomycin Level 24.6 mcg/ml
--- NOTE | 2017-03-08 18:06 | Family Medicine Progress Note ---
Progress Note Date of Service Mar 08, 2017. Subjective Pt evaluation today including: conversation w/ patient, physical exam, chart review, lab review Voiding: no voiding problems Constitutional: + weakness, + fatigue Respiratory: + cough, No sputum, No wheezing, No shortness of breath Cardiovascular: No chest pain Abdomen: + nausea Psychiatric: + depression symptoms (expresses sadness ) Additional Comments: Pt resting in bed, about to eat supper. in room with her. Pt's main concern is the weakness that she feels, especially since at the time of this interview, she had just finished dialysis. She says she is sad and that she lives only so that she may be with her family. She says her is a great support. She denies SOB, but complains of dry cough. Also complains of nausea, denies vomiting. Objective Vital Signs Date Time Temp Pulse Resp B/P (MAP) Pulse Ox O2 Delivery O2 Flow Rate FiO2 03/08/17 16:44 36.4 70 18 161/72 (101) 94 Nasal Cannula 2.0 03/08/17 14:30 95 Nasal Cannula 4.0 03/08/17 14:17 37.5 64 134/65 (88) 03/08/17 13:30 71 114/66 03/08/17 13:15 69 119/42 03/08/17 13:00 70 122/54 03/08/17 12:45 66 124/37 03/08/17 12:30 64 102/38 03/08/17 12:15 75 112/60 03/08/17 12:00 57 100/54 03/08/17 11:45 64 116/56 03/08/17 11:30 56 114/57 03/08/17 11:15 58 101/53 03/08/17 11:00 59 115/54 03/08/17 10:45 56 119/34 03/08/17 10:30 61 142/44 03/08/17 10:15 66 138/55 03/08/17 10:00 55 139/63 03/08/17 09:42 56 156/70 03/08/17 09:38 36.4 58 153/69 (97) 03/08/17 08:20 95 Nasal Cannula 4.0 03/08/17 07:39 36.8 54 18 154/87 (109) 95 3.0 03/08/17 04:03 36.6 54 19 142/62 (88) 92 Nasal Cannula 4.0 03/08/17 04:00 Nasal Cannula 4.0 03/08/17 00:24 36.6 52 16 138/85 (102) 93 Nasal Cannula 3.0 03/07/17 23:59 Nasal Cannula 3.0 03/07/17 20:00 Nasal Cannula 3.0 03/07/17 19:47 36.9 55 24 140/62 (88) 92 Nasal Cannula 2.0 Physical Exam General Appearance: WD/WN, + obese, + pertinent finding (tearful\) Eyes: normal inspection, EOMI Respiratory/Chest: no respiratory distress, no accessory muscle use, + decreased breath sounds (bilaterally) Cardiovascular: regular rate, rhythm, no gallop, no JVD Abdomen: normal bowel sounds, soft Extremities: normal range of motion, normal inspection Skin: normal color, warm/dry Assessment and Plan 71F admitted for acute hypoxia, hypotension and bradycardia which occurred while at her dialysis session on Wednesday. PMH sig for ESRD, COPD, DM II, HTN, h /o thrombophlebitis and hypothyroidism. Acute hypoxemic respiratory failure 92 on 4L O2 today. Uncertain etiology, possible pneumonia on CXR. Will repeat CXR tomorrow AM. Afebrile, WBC wnl. Was recently admitted here for pericarditis, suggests HCAP - treating with Cefepime and Vancomycin (renal dosing). Pharm is ordering random vanc levels, pending results. Previously ECHO 02/26 EF 55-60%, no WMA. CTA 02/25 negative. Blood cx pending. Had extra hemodialysis session today to make up for interrupted session. Will resume regular scheduled HD tomorrow (normal schedule is Wed//Wed). Follow. Pericarditis Continue ibuprofen. New pericardial effusion found on echo, though not large enough to benefit from pericardiocentesis. Recommend cardio outpt f/u Bradycardia Noted on previous admission (for pericarditis) and Coreg dose lowered to 12.5. Per Cardio, DC Coreg for now. HTN Improved. Cont home meds Hydralazine and Felodipine (at regular dose, in spite of edema issues, since DC Coreg.) ESRD Cont home meds DMII Well controlled Hypothyroidism Cont home meds Anemia likely 2/2 renal disease, chronic disease. Hgb stable 9.2 today. Following daily. Chronic constipation Cont home lactulose Depression Stable, cont home meds Proph: Heparin SQ Dispo: Home Code: FULL Continued [facility] stay due to: multiple IV medications needed Discharge planning: home Resident Tracking Resident Involvement: Resident Care Provided Care Provided: Adult [facility] Medicine Reviewed: Pt Seen/Exam by Me History Resident Physician Supervision Note: I interviewed and examined the patient. Discussed with Dr. Barfield and agree with findings and plan as documented in the note. Any exceptions or clarifications are listed here: Pt feeling better than earlier today, had 3L removed at HD. Had fatigue afterwards. Physical Exam General Appearance: WD/WN, no apparent distress Eyes: normal inspection, sclerae normal ENT: hearing grossly normal Neck: trachea midline Respiratory/Chest: no respiratory distress, no accessory muscle use, (+ decreased BS at bases bilat, crackles resolved) Cardiovascular: regular rate, rhythm, + systolic murmur (2/6 at LLSB), + pertinent finding (1+ edema feet bilat, 2+ DP pulses bilat, 1+ pitting edema legs to mid tibiae bilat) Abdomen: normal bowel sounds, non tender, soft Extremities: non-tender Neurologic/Psychiatric: alert, normal mood/affect, oriented x 3 Skin: normal color, warm/dry, no rash 71 y/o F with a h/o ESRD on HD, HTN, DMII, macrocytic anemia, GERD with HH, Chronic diastolic CHF, hypothyroidism, depression, and dyslipidemia, with recent admission for pericarditis, who presents with hypoxia and worsening SOB as well as hypotension. Pt states that she has been having worsening SOB since 1-2 days after d/c from [facility] 5 days prior. She also had chest pain that radiated to her back with the prior admission and since she has been taking NSAIDs, she has had no return of chest pain. Pt states she was on O2 during her admission, however not for the last day. She had her O2 sats monitored and had no SOB on d/c. She started noting SOB with ambulation only 1-2 days after going home that progressed to SOB at rest at times. She went to her usual HD session and was noted to be hypoxic. They put her on O2 there, which did help. They were able to do 2.5 hrs of her usual 4 hr HD, but had to stop due to low BP and HR. She was sent to the ED at that time. When she arrived, she was found to have an O2 sat of 82 % on RA. Acute Hypoxemic respiratory failure: CXR with LLL probable PNA, small bilat pleural effusions that do not appear loculated on lateral decubitus films although hard to tell due to effusions being small. Must treat for HCAP given recent admission to hospital to cover for GNR and MRSA PNAs. ECHO last admission with EF 55-60% and neg for structural issues, with grade 1 diastolic CHF. Previous CXR and CTA Chest no effusions or PNA ECHO limited repeat with preserved EF, now with new small pericardial effusion likely secondary to pericarditis Some SOB with pulm edema could be due to not completing scheduled HD session -continue vanco and continue Cefepime, Vanco to be dosed with HD based on troughs -no further chest pain, CTA CHest neg for PE on 02/25, PE not likely -Sputum cx not collected as no sputum, follow blood cx pending -Appreciate Pulm consult -had HD today and will see if volume taken off helps with hypoxia and effusions-appreciate Nephro c/s -will need 2-step prior to discharge -repeat CXR in AM Pericarditis: pain is resolved on NSAIDs, now with small pericardial effusion. Is on HD-uremia can cause pericarditis, but is very compliant with HD so unclear etiology -continue ibuprofen 400mg po tid scheduled -Consult Cardiology regarding new pericardial effusion-->appreciate recommendations as above Bradycardia: noted on prior admission as well and Coreg dose lowered from 25 bid to 12.5 bid, BPs low normal, remains savage -dc Coreg today -continue tele HTN: improved -continue home meds of hydralazine 25 tid, felodipine 5mg tid, but dc Coreg due to bradycardia -consider decreasing felodipine dose given significant peripheral edema and h /o hypotension-d/w Nephro today-will consider Monitor closely as apparently there was hypoTN as HD ESRD: c/s renal // normal days -had extra HD session today -continue binders, Nephrocaps DMII: HgbA1C 6.6% 01/2017 very well controlled but with hypoglycemia this AM - continue Levemir but decrease dose to 15 units daily from bid, relax SSI Hypothyroidism-TSH normal last admission 2.3 -continue levothyroxine 100mmcg daily Anemia: likely related to ESRD in part, however this is macrocytic, hgb 8.9 B12, folate normal, could be bone marrow process/MDS? -receiving Epogen with HD -consider Hematology referral as outpt Chronic constipation-continue home lactulose Depression-stable -continue Celexa Proph-Heparin SQ Dispo-to home in 1-2 days Full code Documented By: Mary Camejo Assessment/Plan 71 y/o F with a h/o ESRD on HD, HTN, DMII, macrocytic anemia, GERD with HH, Chronic diastolic CHF, hypothyroidism, depression, and dyslipidemia, with recent admission for pericarditis, who presents with hypoxia and worsening SOB as well as hypotension. Pt states that she has been having worsening SOB since 1-2 days after d/c from [facility] 5 days prior. She also had chest pain that radiated to her back with the prior admission and since she has been taking NSAIDs, she has had no return of chest pain. Pt states she was on O2 during her admission, however not for the last day. She had her O2 sats monitored and had no SOB on d/c. She started noting SOB with ambulation only 1-2 days after going home that progressed to SOB at rest at times. She went to her usual HD session today and was noted to be hypoxic. They put her on O2 there, which did help. They were able to do 2.5 hrs of her usual 4 hr HD, but had to stop due to low BP and HR. She was sent to the ED at that time. When she arrived, she was found to have an O2 sat of 82% on RA. Acute Hypoxemic respiratory failure: CXR with LLL probable PNA, small bilat pleural effusions that do not appear loculated on lateral decubitus films although hard to tell due to effusions being small. Must treat for HCAP given recent admission to hospital to cover for GNR and MRSA PNAs. ECHO last admission with EF 55-60% and neg for structural issues, with grade 1 diastolic CHF. Previous CXR and CTA Chest no effusions or PNA ECHO limited today with preserved EF, now with new small pericardial effusion likely secondary to pericarditis Some SOB with pulm edema could be due to not completing scheduled HD session -add vanco and continue Cefepime, Vanco to be given x 1 now, then dosed with HD based on troughs -no further chest pain, CTA CHest neg for PE on 02/25, PE not likely -Sputum cx not collected as no sputum, follow blood cx pending -Appreciate Pulm consult -will have extra HD session tomorrow and will see if volume taken off helps with hypoxia and effusions-appreciate Nephro c/s -will need 2-step prior to discharge Pericarditis: pain is resolved on NSAIDs, now with small pericardial effusion. Is on HD-uremia can cause pericarditis -continue ibuprofen 400mg po tid scheduled -Consult Cardiology regarding new effusion--> would appreciate recommendations for future follow up Bradycardia: noted on prior admission as well and Coreg dose lowered from 25 bid to 12.5 bid, BPs low normal Monitor, may need to adjust HTN medications--> defer to Cardiology HTN: improved -continue home meds of hydralazine 25 tid, Coreg 12.5 bid, felodipine 5mg tid -consider decreasing felodipine dose given significant peripheral edema and h /o hypotension Monitor closely as apparently there was hypoTN as HD ESRD: c/s renal // normal days -plan for extra HD session Wednesday -continue binders, Nephrocaps DMII: HgbA1C 6.6% 01/2017 very well controlled - continue home Levemir + SSI Hypothyroidism-TSH normal last admission 2.3 -continue levothyroxine 100mmcg daily Anemia: likely related to ESRD in part, however this is macrocytic, hgb 8.9 B12, folate normal, could be bone marrow process/MDS? -receiving Epogen with HD -consider Hematology referral as outpt Chronic constipation-continue home lactulose Depression-stable -continue Celexa Proph-Heparin SQ Dispo-to home in 1-2 days Full code
[2017-03-08] MEDS: CITALOPRAM 40 MG TAB PO SCH (21:34)
[2017-03-08] MEDS: ATORVASTATIN 20 MG TAB PO SCH (21:35)
[2017-03-09] VITALS (23 sets, daily range): BP systolic 101–169; BP diastolic 40–103; PULSE 55–75; TEMP 36.7–37.2; O2SAT 92–98
[2017-03-09] MEDS: LEVOTHYROXINE 100 MCG TAB PO SCH (05:58)
[2017-03-09] MEDS: HEPARIN SOD 5000 UNIT/0.5 ML CARP SQ SCH ×3 (05:59→21:46)
[2017-03-09 07:07] LABS: HEMATOCRIT 30.9 % (37-47); MEAN CELL VOLUME 99.7 fL (80-100); MEAN CORPUSCULAR HGB CONC 31.1 g/dl (32-36); MEAN PLATELET VOLUME 9.1 fL (7.4-10.4); PLATELET COUNT 251 K/uL (130-400); WHITE BLOOD COUNT 9.54 K/uL (4.8-10.8)
[2017-03-09 07:45] LABS: CALCIUM 8.7 mg/dl (8.5-10.1); CREATININE 4.1 mg/dl (0.60-1.20)
[2017-03-09] MEDS ORDERED: GABAPENTIN 100 MG CAP PO SCH (08:00)
[2017-03-09] MEDS: BOOST GLUCOSE CONTROL PO SCH ×3 (08:12→14:34)
[2017-03-09] MEDS: CALCIUM ACETATE 667MG GELCAP PO SCH ×3 (08:16→14:34)
[2017-03-09] MEDS: INSULIN ASPART 100 UNITS/ML 3 ML PEN SC SCH ×5 (08:16→20:54)
[2017-03-09] MEDS: ASPIRIN 81 MG ECTAB PO SCH (08:17)
[2017-03-09] MEDS: IBUPROFEN 200 MG TAB PO SCH ×3 (08:17→20:48)
[2017-03-09] MEDS: SACCHAROMYCES BOUL (FLORASTOR) 250 MG CAP PO SCH (08:18)
[2017-03-09] MEDS: NEPHROCAPS PO SCH (08:18)
[2017-03-09] MEDS: MAGNESIUM OXIDE 400 MG TAB PO SCH (08:18)
[2017-03-09] MEDS: PANTOprazole SOD 40 MG TAB PO SCH ×2 (08:19→20:51)
[2017-03-09] MEDS: FELODIPINE 5 MG TABCR PO SCH ×3 (08:19→20:51)
--- NOTE | 2017-03-09 08:37 | DIAGNOSTIC IMAGING REPORT ---
TWO VIEW CHEST CLINICAL HISTORY: Dyspnea. FINDINGS: PA and lateral chest radiographs are compared to study dated 03/07/2017 and correlated with chest CT dated 02/25/2017. The heart is enlarged. There is atherosclerotic calcification of the thoracic aorta. The pulmonary vasculature is noncongested. There are small pleural effusions, left larger than right with bibasilar consolidation. There is no pneumothorax. The skeletal structures are osteopenic. Degenerative change is seen throughout the thoracic spine. Surgical clips project over the esophageal hiatus. IMPRESSION: 1. Cardiomegaly without radiographic evidence of congestive failure. 2. Left large right pleural effusions with bibasilar consolidation. This likely represents atelectasis. Cortical clinically for evidence of superimposed pneumonia. Electronically signed by: Derek Low M.D. 03/09/2017 8:35 AM Dictated Date/Time: 03/09/2017 8:32 AM
[2017-03-09] MEDS: LACTULOSE SYRUP 30 GM/45 ML UDP PO SCH (08:48)
[2017-03-09] MEDS: CEFEPIME IV 2,000 MG in DEXTROSE 5% 100ML 100 ML IV SCH (08:48)
[2017-03-09] MEDS: SUCRALFATE 1 GM/10 ML UDC PO SCH ×4 (08:48→20:49)
[2017-03-09] MEDS: INSULIN DETEMIR FLEXPEN/FLEX TOUCH 100 UNITS/ML 3ML SC SCH (08:51)
--- NOTE | 2017-03-09 09:53 | Clinical Documentation Query ---
CLINICAL DOCUMENTATION QUERY Dr. NIETO, In your clinical opinion is this patient being managed for: ( ) Acute on chronic diastolic (congestive) heart failure ( ) Not Agree ( ) Other explanation of clinical findings (Please Explain) ( ) Unable to determine (Please Define) ( ) Need to Discuss The medical record reflects the following clinical findings, treatment, and risk factors. Clinical Indicators:71 yo female presenting with increasing dyspnea and hypotension. Dialysis treatment cut short due to increasing symptoms. Pt presented with bibasilar crackles. Cardiology consult indicates "SOB: I believe this is primarily CHF from fluid overload". ECHO showed EF of 55-60%. PN / indicates some SOB with pulmonary edema possibly due to incomplete dialysis treatment. Presented without LE edema but subsequently assessed on following days with pitting LE edema. Treatment: additional dialysis tx in addition to standard treatments, cardiology and nephrology consults, I/O, daily wts, tele monitoring Risk Factors: partial dialysis tx, chronic diastolic CHF, HTN, DM, pneumonia, ESRD Please clarify and document your clinical opinion in the progress notes and discharge summary. Terms such as "probable", "suspected", "likely", "questionable", "possible", or "still to be ruled out" are acceptable. IF IN AGREEMENT, YOU MUST DOCUMENT ABOVE DIAGNOSTIC STATEMENT IN DAILY PROGRESS NOTES AND DISCHARGE SUMMARY. This document is not part of the patient's record. Thank You, Uzma Qureshi RN [phone]
--- NOTE | 2017-03-09 09:56 | Clinical Documentation Query ---
CLINICAL DOCUMENTATION QUERY Dr. SHOEMAKER, In your clinical opinion is this patient being managed for: (x ) Acute on chronic diastolic (congestive) heart failure ( ) Not Agree ( ) Other explanation of clinical findings (Please Explain) ( ) Unable to determine (Please Define) ( ) Need to Discuss The medical record reflects the following clinical findings, treatment, and risk factors. Clinical Indicators:71 yo female presenting with increasing dyspnea and hypotension. Dialysis treatment cut short due to increasing symptoms. Pt presented with bibasilar crackles. Cardiology consult indicates "SOB: I believe this is primarily CHF from fluid overload". ECHO showed EF of 55-60%. PN 03/07 indicates some SOB with pulmonary edema possibly due to incomplete dialysis treatment. Presented without LE edema but subsequently assessed on following days with pitting LE edema. Treatment: additional dialysis tx in addition to standard treatments, cardiology and nephrology consults, I/O, daily wts, tele monitoring Risk Factors: partial dialysis tx, chronic diastolic CHF, HTN, DM, pneumonia, ESRD Please clarify and document your clinical opinion in the progress notes and discharge summary. Terms such as "probable", "suspected", "likely", "questionable", "possible", or "still to be ruled out" are acceptable. IF IN AGREEMENT, YOU MUST DOCUMENT ABOVE DIAGNOSTIC STATEMENT IN DAILY PROGRESS NOTES AND DISCHARGE SUMMARY. This document is not part of the patient's record. Thank You, Uzma Qureshi RN [phone]
--- NOTE | 2017-03-09 10:17 | Family Medicine Progress Note ---
Progress Note Date of Service Mar 09, 2017. Subjective Pt evaluation today including: conversation w/ patient, physical exam, chart review, review of studies Voiding: no voiding problems Pt reports better mood today, says she feels better after her dialysis today. Still c/o dyspnea on exertion, but denies lightheadedness or syncope. Edema is improving. Respiratory: + cough, No sputum, No wheezing Cardiovascular: No chest pain, No palpitations Abdomen: No pain Objective Vital Signs Date Time Temp Pulse Resp B/P (MAP) Pulse Ox O2 Delivery O2 Flow Rate FiO2 03/09/17 16:00 95 Nasal Cannula 3.0 03/09/17 15:35 37.0 66 21 138/85 (102) 97 Room Air 3.0 03/09/17 14:45 37.1 64 160/98 (118) 03/09/17 14:30 97 Nasal Cannula 3.0 03/09/17 14:30 36.7 68 17 140/81 (100) 95 Room Air 03/09/17 13:45 62 151/61 03/09/17 13:30 63 121/48 03/09/17 13:15 62 124/55 03/09/17 13:00 58 109/61 03/09/17 12:45 61 101/61 03/09/17 12:30 64 113/40 03/09/17 12:15 65 143/54 03/09/17 12:00 55 140/80 03/09/17 11:45 64 138/75 03/09/17 11:30 75 155/103 03/09/17 11:15 65 159/76 03/09/17 11:00 62 161/73 03/09/17 10:40 37.0 67 163/78 (106) 03/09/17 08:00 98 Nasal Cannula 3.0 03/09/17 07:57 36.9 65 16 169/92 (117) 98 Room Air 03/09/17 04:07 37.2 61 17 152/78 (102) 95 Nasal Cannula 3.0 03/09/17 04:00 Nasal Cannula 3.0 03/08/17 23:59 Nasal Cannula 3.0 03/08/17 23:28 36.9 64 18 164/74 (104) 96 Nasal Cannula 3.0 03/08/17 20:30 94 Nasal Cannula 2.0 03/08/17 20:09 36.9 62 21 142/70 (94) 94 Nasal Cannula 2.0 Physical Exam General Appearance: WD/WN, no apparent distress Eyes: normal inspection, EOMI Respiratory/Chest: lungs clear, normal breath sounds, no respiratory distress Cardiovascular: regular rate, rhythm, no gallop, no JVD Abdomen: normal bowel sounds, soft Extremities: + pedal edema (trace) Neurologic/Psychiatric: alert, normal mood/affect Skin: normal color, warm/dry, no rash Assessment and Plan 71F admitted for acute hypoxia, hypotension and bradycardia which occurred while at her dialysis session on Wednesday. PMH sig for pericarditis, ESRD, COPD , DM II, HTN, h/o thrombophlebitis and hypothyroidism. Acute hypoxemic respiratory failure Improving, 98 on RA today, pt still complains of dyspnea on exertion. Uncertain etiology, possible pneumonia on CXR. Repeat CXR today AM, shows no changes from previous study. Stable. Afebrile, WBC wnl. Was recently admitted here for pericarditis, suggests HCAP - initially treated with Cefepime and Vancomycin (renal dosing). Blood cx NGTD. Cont Cefepime. Vanc DCed. Previously ECHO 02/26 EF 55-60%, no WMA. CTA 02/25 negative. Had extra hemodialysis session yesterday to make up for interrupted session. Resumed regular scheduled HD today (normal schedule is Wed//Wed). Follow. Pericarditis, with effusion. No tamponade. Admitted to [facility] for this earlier this month. Continue ibuprofen. New pericardial effusion found on echo, though not large enough to benefit from pericardiocentesis, per cardio, recommend outpt f/u. Bradycardia Noted on previous admission (for pericarditis) and Coreg dose lowered to 12.5 then. Persistent. Per Cardio, DC Coreg for now. Pt c/o some dyspnea on exertion, denies syncope or lightheadedness. Following. HTN Improved. Cont home meds Hydralazine and Felodipine (at regular dose, in spite of edema issues, since DC Coreg.) Will likely improve with HD back on schedule. Follow. ESRD Cont home meds Phoslo 667 Mg (Calcium Acetate), Nephrocaps (Vitamin B Complex/ Vit C/Folic Acid) Cap. HD back on schedule starting today. DMII Well controlled. Last A1C 6.6 January. On insulin while on inpatient and did have hypoglycemic episode 03/07, of 45. Adjusted glycemic parameters to --> (Aspart) GOAL RANGE = Low _140__ MG/DL High _180__ MG/DL, Correction Factor = _30__ MG/DL/UNIT, INS:CHO RATIO= 1 UNIT PER _15__GRAM CHO CONSUMED. (Detemir) 15U QAM. Tolerating well. Hypothyroidism Cont Levothyroxine Sodium 100 Mcg Tab. Last TSH was 2.39 02/23/17. Anemia likely 2/2 renal disease, chronic disease. Hgb stable 9.6, imrpoving. Following daily. Chronic constipation Cont home lactulose Depression Stable, cont home meds Proph: Heparin SQ Dispo: Home, possible DC tomorrow 03/10. Code: FULL Continued [facility] stay due to: multiple IV medications needed Discharge planning: home Resident Tracking Resident Involvement: Resident Care Provided Care Provided: Adult Hospital Medicine Reviewed: Pt Seen/Exam by Me History Resident Physician Supervision Note: I interviewed and examined the patient. Discussed with Dr. Barfield and agree with findings and plan as documented in the note. Any exceptions or clarifications are listed here: Pt feeling better today, breathing much improved, removed another 2 L today at HD. Feels stronger, less edema Physical Exam General Appearance: WD/WN, no apparent distress Eyes: normal inspection, sclerae normal ENT: hearing grossly normal Neck: trachea midline Respiratory/Chest: no respiratory distress, no accessory muscle use, (+ decreased BS at bases bilat, crackles resolved) Cardiovascular: regular rate, rhythm, + systolic murmur (2/6 at LLSB), + pertinent finding (trace+ edema feet bilat, 2+ DP pulses bilat, trace+ pitting edema legs to mid tibiae bilat) Abdomen: normal bowel sounds, non tender, soft Extremities: non-tender Neurologic/Psychiatric: alert, normal mood/affect, oriented x 3 Skin: normal color, warm/dry, no rash 71 y/o F with a h/o ESRD on HD, HTN, DMII, macrocytic anemia, GERD with HH, Chronic diastolic CHF, hypothyroidism, depression, and dyslipidemia, with recent admission for pericarditis, who presents with hypoxia and worsening SOB as well as hypotension. Pt states that she has been having worsening SOB since 1-2 days after d/c from [facility] 5 days prior. She also had chest pain that radiated to her back with the prior admission and since she has been taking NSAIDs, she has had no return of chest pain. Pt states she was on O2 during her admission, however not for the last day. She had her O2 sats monitored and had no SOB on d/c. She started noting SOB with ambulation only 1-2 days after going home that progressed to SOB at rest at times. She went to her usual HD session and was noted to be hypoxic. They put her on O2 there, which did help. They were able to do 2.5 hrs of her usual 4 hr HD, but had to stop due to low BP and HR. She was sent to the ED at that time. When she arrived, she was found to have an O2 sat of 82 % on RA. Acute Hypoxemic respiratory failure: CXR with LLL probable PNA, small bilat pleural effusions that do not appear loculated on lateral decubitus films although hard to tell due to effusions being small. Must treat for HCAP given recent admission to hospital to cover for GNR and MRSA PNAs. ECHO last admission with EF 55-60% and neg for structural issues, with grade 1 diastolic CHF. Previous CXR and CTA Chest no effusions or PNA ECHO limited repeat with preserved EF, now with new small pericardial effusion likely secondary to pericarditis SOB with pulm edema could be due to not completing scheduled HD session Repeat CXR today about the same, maybe slightly improved -continue Cefepime, Vanco dcd as MRSA swab neg -no further chest pain, CTA CHest neg for PE on 02/25, PE not likely -Sputum cx not collected as no sputum, follow blood cx pending -Appreciate Pulm consult -attempt to wean off O2 today and will need 2-step prior to discharge Pericarditis: pain is resolved on NSAIDs, now with small pericardial effusion. Is on HD-uremia can cause pericarditis, but is very compliant with HD so unclear etiology -continue ibuprofen 400mg po tid scheduled -Consult Cardiology regarding new pericardial effusion-->appreciate recommendations as above, fu with Cardio as outpt Bradycardia: noted on prior admission as well and Coreg dose lowered from 25 bid to 12.5 bid, now with continued bradycardia--> dc'd COreg and now imrpoved to the 60s -dc Coreg permanently -continue tele HTN: improved -continue home meds of hydralazine 25 tid, felodipine 5mg tid, but dcd Coreg due to bradycardia ESRD: c/s renal appreciated // normal days -continue binders, Nephrocaps DMII: HgbA1C 6.6% 01/2017 very well controlled but with hypoglycemia this admission, insulin regimen lowered - continue Levemir but decreased dose to 15 units daily from bid, relaxed SSI --> may need to increase again on discharge Hypothyroidism-TSH normal last admission 2.3 -continue levothyroxine 100mmcg daily Anemia: likely related to ESRD in part, however this is macrocytic, hgb 8.9 B12, folate normal, could be bone marrow process/MDS? -receiving Epogen with HD -consider Hematology referral as outpt Chronic constipation-continue home lactulose Depression-stable -continue Celexa Proph-Heparin SQ Dispo-to home hopefully tomorrow Full code Documented By: Mary Camejo
--- NOTE | 2017-03-09 11:48 | Nephrology Progress Note ---
Nephrology Progress Note Date of Service Mar 09, 2017. Chief Complaint Follow-up for end-stage renal disease on hemodialysis. Jorge Watson was seen and examined in her room this morning. Shortness of breath slightly improved, denies any chest pain. Had dialysis yesterday for 4 hours, had 3 L UF tolerated well however after dialysis she just fell drained and tired and overall did not feel good. Remained afebrile, appetite continues to be poor. Review of Systems A complete review of systems was performed. Pertinent positives are noted above. All other systems are negative. Vital Signs Last 8 Hrs Date Time Temp Pulse Resp B/P (MAP) Pulse Ox O2 Delivery O2 Flow Rate FiO2 03/09/17 07:57 36.9 65 16 169/92 (117) 98 Room Air 03/09/17 04:07 37.2 61 17 152/78 (102) 95 Nasal Cannula 3.0 03/09/17 04:00 Nasal Cannula 3.0 Last Recorded Weight Weight (Kilograms): 96.200 Physical Exam GENERAL: Elderly female, AAA x 3, pleasant, healthy-appearing, not in any distress. NECK: Supple, no JVD. RESPIRATORY: Decreased breath sounds and rales at left base CARDIOVASCULAR: S1, S2 normal, rate rhythm regular. EXTREMITY: Trace bilateral lower extremity edema NEURO: speech fluent. PSYCHIATRY: Normal mood and judgment Family History Diabetes mellitus Heart disease Hypertension Kidney disease Kidney stones Social History Smoking Status: Never smoker Alcohol Use: none Drug Use: none Marital Status: Housing Status: lives with family Occupation: retired Laboratory Results Past 24 Hours 03/09/17 06:31 03/09/17 06:31 Test 03/08/17 14:48 03/08/17 21:21 03/09/17 06:31 Bedside Glucose 130 mg/dl (70-90) 246 mg/dl (70-90) Red Blood Count 3.10 M/uL (4.2-5.4) Mean Corpuscular Volume 99.7 fL (80-100) Mean Corpuscular Hemoglobin 31.0 pg (25-34) Mean Corpuscular Hemoglobin Concent 31.1 g/dl (32-36) RDW Standard Deviation 54.5 fL (36.4-46.3) RDW Coefficient of Variation 15.1 % (11.5-14.5) Mean Platelet Volume 9.1 fL (7.4-10.4) Anion Gap 7.0 mmol/L (3-11) Est Creatinine Clear Calc Drug Dose 13.6 ml/min Estimated GFR () 11.9 Estimated GFR (Non- 10.3 BUN/Creatinine Ratio 7.0 (10-20) Calcium Level 8.7 mg/dl (8.5-10.1) Random Vancomycin Level 17.5 mcg/ml Allergies Coded Allergies: Lisinopril (Verified Adverse Reaction, Intermediate, cough, 03/06/17) Medications Current Inpatient Medications Medications (Trade) Dose Ordered Sig/Vaibhav Route Start Time Stop Time Status Last Admin Dose Admin Heparin Sodium (Porcine) (Heparin Sq 5000 Unit/0.5ml) 5,000 unit Q8 SQ 03/06/17 22:00 04/05/17 21:59 03/09/17 05:59 5,000 UNIT Acetaminophen (Tylenol Tab) 650 mg Q4H PRN PO 03/06/17 11:15 04/05/17 11:14 Magnesium Hydroxide (Milk Of Magnesia Susp) 30 ml Q12H PRN PO 03/06/17 11:15 04/05/17 11:14 Ondansetron HCl (Zofran Inj) 4 mg Q6H PRN IV 03/06/17 11:15 04/05/17 11:14 Insulin Aspart (novoLOG ASPART) SLIDING SCALE If C... ACHS SC 03/06/17 16:15 04/05/17 16:14 03/09/17 08:16 3 UNITS Glucose (Glucose 40% Gel) 15-30 GRAMS 15 GRAMS... UD PRN PO 03/06/17 11:15 04/05/17 11:14 Glucose (Glucose Chew Tab) 4-8 Tablets 4 Tabl... UD PRN PO 03/06/17 11:15 04/05/17 11:14 Dextrose (Dextrose 50% 50ML Syringe) 25-50ML OF 50% DW IV FOR... UD PRN IV 03/06/17 11:15 04/05/17 11:14 Glucagon (Glucagon Inj) 1 mg UD PRN SQ 03/06/17 11:15 04/05/17 11:14 Cefepime HCl 2000 mg/Dextrose 112.5 ml @ 200 mls/hr DAILY@0900 IV 03/07/17 09:00 03/14/17 08:59 03/09/17 08:48 200 MLS/HR Saccharomyces Boulardii (Florastor Cap) 250 mg DAILY PO 03/07/17 09:00 04/06/17 08:59 03/09/17 08:18 250 MG Aspirin (Ecotrin Tab) 81 mg DAILY PO 03/07/17 09:00 04/06/17 08:59 03/09/17 08:17 81 MG Atorvastatin Calcium (Lipitor Tab) 20 mg HS PO 03/06/17 21:00 04/05/17 20:59 03/08/17 21:35 20 MG Calcium Acetate (Phoslo Cap) 667 mg TIDM PO 03/06/17 16:45 04/05/17 16:44 03/09/17 08:16 667 MG Citalopram Hydrobromide (celeXA TAB) 40 mg HS PO 03/06/17 21:00 04/05/17 20:59 03/08/17 21:34 40 MG Felodipine (Plendil Tabcr) 5 mg TID PO 03/06/17 21:00 04/05/17 20:59 03/09/17 08:19 5 MG Gabapentin (Neurontin Cap) 100 mg TuThSa@0800 PO 03/09/17 08:00 04/08/17 07:59 03/09/17 08:17 100 MG Hydralazine HCl (Apresoline Tab) 25 mg TID PO 03/06/17 21:00 04/05/17 20:59 03/09/17 08:17 25 MG Levothyroxine Sodium (Synthroid Tab) 100 mcg DAILYBB PO 03/07/17 06:00 04/06/17 05:59 03/09/17 05:58 100 MCG Pantoprazole Sodium (Protonix Tab) 40 mg BID PO 03/06/17 21:00 04/05/17 20:59 03/09/17 08:19 40 MG Vitamin B Complex/ Vit C/Folic Acid (Nephrocaps) 1 cap QAM PO 03/07/17 09:00 04/06/17 08:59 03/09/17 08:18 1 CAP Magnesium Oxide (Mag-Ox Tab) 400 mg QAM PO 03/07/17 09:00 04/06/17 08:59 03/09/17 08:18 400 MG Ibuprofen (Advil Tab) 400 mg TID PO 03/07/17 14:00 04/06/17 13:59 03/09/17 08:17 400 MG Sucralfate (Carafate Susp) 1 gm QID PO 03/07/17 17:00 04/06/17 16:59 03/09/17 08:48 1 GM Enteral Nutritional Formula (Boost Glucose Control) 1 can TIDM PO 03/07/17 16:45 04/06/17 16:44 03/09/17 08:12 1 CAN Lactulose (Chronulac Syrup) 30 gm DAILY PO 03/08/17 09:00 04/07/17 08:59 03/09/17 08:48 30 GM Vancomycin HCl (Consult) 1 ea UD PRN N/A 03/07/17 18:00 04/06/17 17:59 Insulin Detemir (Levemir Flexpen/ FlexTouch) 15 units QAM SC 03/09/17 09:00 04/05/17 20:59 03/09/17 08:51 15 UNITS Diphenhydramine HCl (Benadryl Cap) 25 mg HS PRN PO 03/08/17 18:15 04/07/17 18:14 03/08/17 21:35 25 MG Impression 71-year-old female with end-stage renal disease on hemodialysis, admitted to the hospital with shortness of breath and hypoxia and diagnosed with possible pneumonia and started on empiric antibiotic. She continues to have mild shortness of breath and difficulty taking deep breath but denied chest pain, fever, chills, cough or sputum production. She remained afebrile, no leukocytosis. Recent diagnosis of pericarditis, has been on ibuprofen. Currently O2 sats normal with 3 liters nasal cannula oxygen, blood pressure and heart rate acceptable. Volume status acceptable. Electrolyte remain acceptable. Recommendations --plan for 3 hours dialysis treatment this morning with 2 K bath and UF as tolerated as 2 days her regular day however will do shorter treatment as she will be getting [id number] treatment and did not feel well with 4 hours yesterday --avoid IV fluid, continue on renal diet --continue on boost 1 can t.i.d.and phosphate binders Will follow
--- NOTE | 2017-03-09 13:00 | Pharmacy Progress Note ---
Pharmacy Abx Dose Short Note Date of Service Mar 09, 2017. Assessment & Plan Assessment 71 year old female with ESRD (HD /) receiving Vancomycin/Cefepime IV for treatment of pneumonia. Day # 3 of antimicrobial therapy. Plan Vancomycin * Random level of 17.5 mcg/mL is therapeutic * Patient to receive HD today but shorter in duration then yesterday (3 hours versus 4 hours) * Re-dose Vancomycin 500 mg IV X 1 post HD today * Plan is to go back to home HD schedule but incase of change, will draw level tomorrow * Goal pre- HD level: 15-20 mcg/mL Pharmacy will continue to follow and will adjust dose/frequency as necessary. Thank you.
[2017-03-09] MEDS ORDERED: VANCOMYCIN INJ 500 MG in SODIUM CHLORIDE 0.9% 250ML 250 ML IV SCH (16:00)
--- NOTE | 2017-03-09 18:37 | Pulmonology Progress Note ---
Pulmonary Progress Note Date of Service Mar 09, 2017. Attending Dr. Frey Subjective Patient seen and examined this evening. She states that she's feeling much better than yesterday. She states that she is less short of breath. She is status post hemodialysis with removal of 2 L today. Had episode of nausea this evening that is resolved with Zofran. Objective VS reviewed. Tm 37.2, blood pressure 101/61 to 169/92, pulse 55-75, respiratory rate 16-21, pulse oximetry 95-98 on 3 L nasal cannula Currently about 3 L negative balance is status post removal of about 1.9 L with hemodialysis Gen:AAOx3, NAD, speaking in full sentences with out of accessory muscles CVS: S1, S2, RRR Lungs: diminished breath sound on bilaterally, good air entry otherwise. Abd: soft/NT/NT/BS+ Ext:no edema, no cyanosis, no clubbing Labs reviewed. Imaging viewed and reviewed by me. Chest x-ray from 03/09/2017 IMPRESSION: 1. Cardiomegaly without radiographic evidence of congestive failure. 2. Left large right pleural effusions with bibasilar consolidation. This likely represents atelectasis. Cortical clinically for evidence of superimposed pneumonia. TTE 03/07/2017 * -- Conclusions -- * Limited views were obtained. * Left ventricular systolic function is normal. * Small pericardial effusion. * No evidence of cardiac tamponade. * Compared to an echocardiogram from 02/26/2017, there has been interim development of a pericardial effusion. Medications reviewed. Assessment & Plan 1. Hypoxia 2. Left base opacity 3. Chronic obstructive pulmonary disease by history. 4. Obstructive sleep apnea by history -- diagnosed in 2009. 5. Bilateral pleural effusions 6. Pericardial effusion Patient appears to be much improved since yesterday. Currently saturating well on 3 L nasal cannula. Continue with supplemental oxygenation to maintain SaO2 >92%. Continue to titrate as tolerated. Chest x-ray showed increase in left pleural effusion. However,s he is status post removal of about 1.9 L of fluid with marked improvement of her symptoms. Continue with HD per nephrology for fluid removal. Pleural effusions are bilateral in nature and most likely due to underlying CHF. I offered possible diagnostic and therapeutic thoracentesis however patient prefers to take a more conservative route at this time. For the left basilar opacity--Continue with incentive spirometry. Obtain sputum cultures and de-escalate antibiotics. Patient has pericardial effusion, TTE shows no signs of tamponade and she is currently hemodynamically stable. The patient should have pulmonary function tests as an outpatient. Consider sleep study as out patient. I will signoff case today. Please contact me if you have any further questions or concerns. Data Medications: Current Inpatient Medications Medications (Trade) Dose Ordered Sig/Vaibhav Route Start Time Stop Time Status Last Admin Dose Admin Heparin Sodium (Porcine) (Heparin Sq 5000 Unit/0.5ml) 5,000 unit Q8 SQ 03/06/17 22:00 04/05/17 21:59 03/09/17 14:38 5,000 UNIT Acetaminophen (Tylenol Tab) 650 mg Q4H PRN PO 03/06/17 11:15 04/05/17 11:14 Magnesium Hydroxide (Milk Of Magnesia Susp) 30 ml Q12H PRN PO 03/06/17 11:15 04/05/17 11:14 Ondansetron HCl (Zofran Inj) 4 mg Q6H PRN IV 03/06/17 11:15 04/05/17 11:14 03/09/17 17:23 4 MG Insulin Aspart (novoLOG ASPART) SLIDING SCALE If C... ACHS SC 03/06/17 16:15 04/05/17 16:14 03/09/17 08:16 3 UNITS Glucose (Glucose 40% Gel) 15-30 GRAMS 15 GRAMS... UD PRN PO 03/06/17 11:15 04/05/17 11:14 Glucose (Glucose Chew Tab) 4-8 Tablets 4 Tabl... UD PRN PO 03/06/17 11:15 04/05/17 11:14 Dextrose (Dextrose 50% 50ML Syringe) 25-50ML OF 50% DW IV FOR... UD PRN IV 03/06/17 11:15 04/05/17 11:14 Glucagon (Glucagon Inj) 1 mg UD PRN SQ 03/06/17 11:15 04/05/17 11:14 Saccharomyces Boulardii (Florastor Cap) 250 mg DAILY PO 03/07/17 09:00 04/06/17 08:59 03/09/17 08:18 250 MG Aspirin (Ecotrin Tab) 81 mg DAILY PO 03/07/17 09:00 04/06/17 08:59 03/09/17 08:17 81 MG Atorvastatin Calcium (Lipitor Tab) 20 mg HS PO 03/06/17 21:00 04/05/17 20:59 03/08/17 21:35 20 MG Calcium Acetate (Phoslo Cap) 667 mg TIDM PO 03/06/17 16:45 04/05/17 16:44 03/09/17 14:34 667 MG Citalopram Hydrobromide (celeXA TAB) 40 mg HS PO 03/06/17 21:00 04/05/17 20:59 03/08/17 21:34 40 MG Felodipine (Plendil Tabcr) 5 mg TID PO 03/06/17 21:00 04/05/17 20:59 03/09/17 14:34 5 MG Gabapentin (Neurontin Cap) 100 mg TuThSa@0800 PO 03/09/17 08:00 04/08/17 07:59 03/09/17 08:17 100 MG Hydralazine HCl (Apresoline Tab) 25 mg TID PO 03/06/17 21:00 04/05/17 20:59 03/09/17 14:34 25 MG Levothyroxine Sodium (Synthroid Tab) 100 mcg DAILYBB PO 03/07/17 06:00 04/06/17 05:59 03/09/17 05:58 100 MCG Pantoprazole Sodium (Protonix Tab) 40 mg BID PO 03/06/17 21:00 04/05/17 20:59 03/09/17 08:19 40 MG Vitamin B Complex/ Vit C/Folic Acid (Nephrocaps) 1 cap QAM PO 03/07/17 09:00 04/06/17 08:59 03/09/17 08:18 1 CAP Magnesium Oxide (Mag-Ox Tab) 400 mg QAM PO 03/07/17 09:00 04/06/17 08:59 03/09/17 08:18 400 MG Ibuprofen (Advil Tab) 400 mg TID PO 03/07/17 14:00 04/06/17 13:59 03/09/17 14:33 400 MG Sucralfate (Carafate Susp) 1 gm QID PO 03/07/17 17:00 04/06/17 16:59 03/09/17 17:08 1 GM Enteral Nutritional Formula (Boost Glucose Control) 1 can TIDM PO 03/07/17 16:45 04/06/17 16:44 03/09/17 14:34 1 CAN Lactulose (Chronulac Syrup) 30 gm DAILY PO 03/08/17 09:00 04/07/17 08:59 03/09/17 08:48 30 GM Insulin Detemir (Levemir Flexpen/ FlexTouch) 15 units QAM SC 03/09/17 09:00 04/05/17 20:59 03/09/17 08:51 15 UNITS Diphenhydramine HCl (Benadryl Cap) 25 mg HS PRN PO 03/08/17 18:15 04/07/17 18:14 03/08/17 21:35 25 MG Cefepime HCl 500 mg/Dextrose 105.65 ml @ 222.6 mls/hr Q24H IV 03/10/17 18:00 03/13/17 18:29 I & O: 24-Hour Column 03/10/17 08:00 Intake Total 300 ml Output Total 2200 ml Balance -1900 ml Vital Signs: Date Time Temp Pulse Resp B/P (MAP) Pulse Ox O2 Delivery O2 Flow Rate FiO2 03/09/17 16:00 95 Nasal Cannula 3.0 03/09/17 15:35 37.0 66 21 138/85 (102) 97 Room Air 3.0 03/09/17 14:45 37.1 64 160/98 (118) 03/09/17 14:30 97 Nasal Cannula 3.0 03/09/17 14:30 36.7 68 17 140/81 (100) 95 Room Air 03/09/17 13:45 62 151/61 03/09/17 13:30 63 121/48 03/09/17 13:15 62 124/55 03/09/17 13:00 58 109/61 03/09/17 12:45 61 101/61 03/09/17 12:30 64 113/40 03/09/17 12:15 65 143/54 03/09/17 12:00 55 140/80 03/09/17 11:45 64 138/75 03/09/17 11:30 75 155/103 03/09/17 11:15 65 159/76 03/09/17 11:00 62 161/73 03/09/17 10:40 37.0 67 163/78 (106) 03/09/17 08:00 98 Nasal Cannula 3.0 03/09/17 07:57 36.9 65 16 169/92 (117) 98 Room Air 03/09/17 04:07 37.2 61 17 152/78 (102) 95 Nasal Cannula 3.0 03/09/17 04:00 Nasal Cannula 3.0 03/08/17 23:59 Nasal Cannula 3.0 03/08/17 23:28 36.9 64 18 164/74 (104) 96 Nasal Cannula 3.0 03/08/17 20:30 94 Nasal Cannula 2.0 03/08/17 20:09 36.9 62 21 142/70 (94) 94 Nasal Cannula 2.0 Laboratory Results: Last 24 Hours Test 03/08/17 21:21 03/09/17 06:31 03/09/17 06:39 03/09/17 14:32 Bedside Glucose 246 mg/dl 138 mg/dl 118 mg/dl White Blood Count 9.54 K/uL Red Blood Count 3.10 M/uL Hemoglobin 9.6 g/dL Hematocrit 30.9 % Mean Corpuscular Volume 99.7 fL Mean Corpuscular Hemoglobin 31.0 pg Mean Corpuscular Hemoglobin Concent 31.1 g/dl RDW Standard Deviation 54.5 fL RDW Coefficient of Variation 15.1 % Platelet Count 251 K/uL Mean Platelet Volume 9.1 fL Sodium Level 130 mmol/L Potassium Level 4.0 mmol/L Chloride Level 91 mmol/L Carbon Dioxide Level 32 mmol/L Anion Gap 7.0 mmol/L Blood Urea Nitrogen 29 mg/dl Creatinine 4.10 mg/dl Est Creatinine Clear Calc Drug Dose 13.6 ml/min Estimated GFR () 11.9 Estimated GFR (Non- 10.3 BUN/Creatinine Ratio 7.0 Random Glucose 137 mg/dl Calcium Level 8.7 mg/dl Random Vancomycin Level 17.5 mcg/ml Test 03/09/17 16:16 Bedside Glucose 183 mg/dl
[2017-03-09] MEDS: CITALOPRAM 40 MG TAB PO SCH (20:50)
[2017-03-09] MEDS: ATORVASTATIN 20 MG TAB PO SCH (20:50)
[2017-03-10] VITALS (7 sets, daily range): BP systolic 133–167; BP diastolic 63–127; PULSE 68–69; TEMP 36.8–37.2; O2SAT 47–95
[2017-03-10] MEDS: LEVOTHYROXINE 100 MCG TAB PO SCH (05:53)
[2017-03-10] MEDS: HEPARIN SOD 5000 UNIT/0.5 ML CARP SQ SCH (05:55)
[2017-03-10 06:33] LABS: BUN/CREATININE RATIO 5.1 (10-20); CREATININE 3.6 mg/dl (0.60-1.20); POTASSIUM 3.9 mmol/L (3.5-5.1)
[2017-03-10] MEDS: CALCIUM ACETATE 667MG GELCAP PO SCH ×2 (07:29→12:48)
[2017-03-10] MEDS: BOOST GLUCOSE CONTROL PO SCH ×2 (07:32→11:30)
[2017-03-10] MEDS: INSULIN ASPART 100 UNITS/ML 3 ML PEN SC SCH ×2 (08:04→12:51)
[2017-03-10] MEDS: SUCRALFATE 1 GM/10 ML UDC PO SCH ×2 (09:00→12:48)
[2017-03-10] MEDS: IBUPROFEN 200 MG TAB PO SCH (09:15)
[2017-03-10] MEDS: ASPIRIN 81 MG ECTAB PO SCH (09:17)
[2017-03-10] MEDS: LACTULOSE SYRUP 30 GM/45 ML UDP PO SCH (09:17)
[2017-03-10] MEDS: SACCHAROMYCES BOUL (FLORASTOR) 250 MG CAP PO SCH (09:18)
[2017-03-10] MEDS: NEPHROCAPS PO SCH (09:18)
[2017-03-10] MEDS: MAGNESIUM OXIDE 400 MG TAB PO SCH (09:18)
[2017-03-10] MEDS: PANTOprazole SOD 40 MG TAB PO SCH (09:19)
[2017-03-10] MEDS: FELODIPINE 5 MG TABCR PO SCH (09:19)
[2017-03-10] MEDS: INSULIN DETEMIR FLEXPEN/FLEX TOUCH 100 UNITS/ML 3ML SC SCH (09:25)
--- NOTE | 2017-03-10 09:59 | Nephrology Progress Note ---
Nephrology Progress Note Date of Service Mar 10, 2017. Chief Complaint Follow-up for end-stage renal disease on hemodialysis. Jorge Watson was seen and examined in her room this morning. Shortness of breath improved, denies any chest pain. Had dialysis yesterday for 3 hours, had 2 L UF tolerated well. Remained afebrile, appetite continues to be poor. Review of Systems A complete review of systems was performed. Pertinent positives are noted above. All other systems are negative. Vital Signs Last 8 Hrs Date Time Temp Pulse Resp B/P (MAP) Pulse Ox O2 Delivery O2 Flow Rate FiO2 03/10/17 08:00 Nasal Cannula 2.0 03/10/17 07:40 93 Nasal Cannula 03/10/17 07:10 37.2 68 16 158/127 (137) 93 Nasal Cannula 2.0 03/10/17 04:00 47 Room Air 03/10/17 04:00 91 Nasal Cannula 1.0 03/10/17 03:57 36.8 69 16 167/63 (97) 91 Nasal Cannula 2.0 Last Recorded Weight Weight (Kilograms): 95.300 Physical Exam GENERAL: Elderly female, AAA x 3, pleasant, healthy-appearing, not in any distress. NECK: Supple, no JVD. RESPIRATORY: Decreased breath sounds and rales at left base CARDIOVASCULAR: S1, S2 normal, rate rhythm regular. EXTREMITY: no lower extremity edema NEURO: speech fluent. PSYCHIATRY: Normal mood and judgment Family History Diabetes mellitus Heart disease Hypertension Kidney disease Kidney stones Social History Smoking Status: Never smoker Alcohol Use: none Drug Use: none Marital Status: Housing Status: lives with family Occupation: retired Laboratory Results Past 24 Hours 03/10/17 05:32 Test 03/09/17 14:32 03/09/17 16:16 03/09/17 20:11 03/10/17 05:32 Bedside Glucose 118 mg/dl (70-90) 183 mg/dl (70-90) 218 mg/dl (70-90) Anion Gap 6.0 mmol/L (3-11) Est Creatinine Clear Calc Drug Dose 15.4 ml/min Estimated GFR () 14.0 Estimated GFR (Non- 12.0 BUN/Creatinine Ratio 5.1 (10-20) Calcium Level 9.0 mg/dl (8.5-10.1) Test 03/10/17 06:54 Bedside Glucose 111 mg/dl (70-90) Allergies Coded Allergies: Lisinopril (Verified Adverse Reaction, Intermediate, cough, 03/06/17) Medications Current Inpatient Medications Medications (Trade) Dose Ordered Sig/Vaibhav Route Start Time Stop Time Status Last Admin Dose Admin Heparin Sodium (Porcine) (Heparin Sq 5000 Unit/0.5ml) 5,000 unit Q8 SQ 03/06/17 22:00 04/05/17 21:59 03/10/17 05:55 5,000 UNIT Acetaminophen (Tylenol Tab) 650 mg Q4H PRN PO 03/06/17 11:15 04/05/17 11:14 Magnesium Hydroxide (Milk Of Magnesia Susp) 30 ml Q12H PRN PO 03/06/17 11:15 04/05/17 11:14 Ondansetron HCl (Zofran Inj) 4 mg Q6H PRN IV 03/06/17 11:15 04/05/17 11:14 03/09/17 17:23 4 MG Insulin Aspart (novoLOG ASPART) SLIDING SCALE If C... ACHS SC 03/06/17 16:15 04/05/17 16:14 03/10/17 08:04 2 UNITS Glucose (Glucose 40% Gel) 15-30 GRAMS 15 GRAMS... UD PRN PO 03/06/17 11:15 04/05/17 11:14 Glucose (Glucose Chew Tab) 4-8 Tablets 4 Tabl... UD PRN PO 03/06/17 11:15 04/05/17 11:14 Dextrose (Dextrose 50% 50ML Syringe) 25-50ML OF 50% DW IV FOR... UD PRN IV 03/06/17 11:15 04/05/17 11:14 Glucagon (Glucagon Inj) 1 mg UD PRN SQ 03/06/17 11:15 04/05/17 11:14 Saccharomyces Boulardii (Florastor Cap) 250 mg DAILY PO 03/07/17 09:00 04/06/17 08:59 03/10/17 09:18 250 MG Aspirin (Ecotrin Tab) 81 mg DAILY PO 03/07/17 09:00 04/06/17 08:59 03/10/17 09:17 81 MG Atorvastatin Calcium (Lipitor Tab) 20 mg HS PO 03/06/17 21:00 04/05/17 20:59 03/09/17 20:50 20 MG Calcium Acetate (Phoslo Cap) 667 mg TIDM PO 03/06/17 16:45 04/05/17 16:44 03/10/17 07:29 667 MG Citalopram Hydrobromide (celeXA TAB) 40 mg HS PO 03/06/17 21:00 04/05/17 20:59 03/09/17 20:50 40 MG Felodipine (Plendil Tabcr) 5 mg TID PO 03/06/17 21:00 04/05/17 20:59 03/10/17 09:19 5 MG Gabapentin (Neurontin Cap) 100 mg TuThSa@0800 PO 03/09/17 08:00 04/08/17 07:59 03/09/17 08:17 100 MG Hydralazine HCl (Apresoline Tab) 25 mg TID PO 03/06/17 21:00 04/05/17 20:59 03/10/17 09:15 25 MG Levothyroxine Sodium (Synthroid Tab) 100 mcg DAILYBB PO 03/07/17 06:00 04/06/17 05:59 03/10/17 05:53 100 MCG Pantoprazole Sodium (Protonix Tab) 40 mg BID PO 03/06/17 21:00 04/05/17 20:59 03/10/17 09:19 40 MG Vitamin B Complex/ Vit C/Folic Acid (Nephrocaps) 1 cap QAM PO 03/07/17 09:00 04/06/17 08:59 03/10/17 09:18 1 CAP Magnesium Oxide (Mag-Ox Tab) 400 mg QAM PO 03/07/17 09:00 04/06/17 08:59 03/10/17 09:18 400 MG Ibuprofen (Advil Tab) 400 mg TID PO 03/07/17 14:00 04/06/17 13:59 03/10/17 09:15 400 MG Sucralfate (Carafate Susp) 1 gm QID PO 03/07/17 17:00 04/06/17 16:59 03/09/17 20:49 1 GM Enteral Nutritional Formula (Boost Glucose Control) 1 can TIDM PO 03/07/17 16:45 04/06/17 16:44 03/10/17 07:32 1 CAN Lactulose (Chronulac Syrup) 30 gm DAILY PO 03/08/17 09:00 04/07/17 08:59 03/10/17 09:17 30 GM Insulin Detemir (Levemir Flexpen/ FlexTouch) 15 units QAM SC 03/09/17 09:00 04/05/17 20:59 03/10/17 09:25 15 UNITS Diphenhydramine HCl (Benadryl Cap) 25 mg HS PRN PO 03/08/17 18:15 04/07/17 18:14 03/08/17 21:35 25 MG Cefepime HCl 500 mg/Dextrose 105.65 ml @ 222.6 mls/hr Q24H IV 03/10/17 18:00 03/13/17 18:29 Impression 71-year-old female with end-stage renal disease on hemodialysis, admitted to the hospital with shortness of breath and hypoxia and diagnosed with possible pneumonia and started on empiric antibiotic. She continues to have mild shortness of breath and difficulty taking deep breath but denied chest pain, fever, chills, cough or sputum production. She remained afebrile, no leukocytosis. Recent diagnosis of pericarditis, has been on ibuprofen. Currently O2 sats normal with 3 liters nasal cannula oxygen, blood pressure and heart rate acceptable. Volume status acceptable. Electrolyte remain acceptable. She has large left-sided pleural effusion and echo showing pericardial effusion without any sign of tamponade. Was seen by Pulmonary offered thoracentesis but patient like to just continue with conservative approach not have that done as clinically she is feeling much better. Recommendations --overall doing well, currently blood pressure volume status and electrolyte acceptable. --patient should have a follow-up chest x-ray and outpatient follow-up with pulmonary for continued follow up on the left large pleural effusion --avoid IV fluid, continue on renal diet --continue on boost 1 can t.i.d.and phosphate binders --okay to be discharged, she will have her outpatient dialysis tomorrow at the dialysis unit if she gets discharged today.
--- NOTE | 2017-03-10 10:52 | Cardiology Follow-Up ---
Subjective Date of Service: Mar 10, 2017. Pt evaluation today including: conversation w/ patient, conversation w/ family , physical exam, lab review, review of studies, review of inpatient medication list History of Present Illness This is a very pleasant 71-year-old woman who was recently hospitalized for chest discomfort which turned out to be pericarditis, additionally she was found to be bradycardic for reasons which were not clear as her beta ramesh had evidently not been increased. She was treated with nonsteroidal agents which eliminated symptoms related to the pericarditis, she did not have a significant effusion during that admission. Her beta ramesh was also reduced. She was therefore discharged on Motrin for her pericarditis and a reduced dose of carvedilol (12.5 mg twice a day instead of 25). She returns now with shortness of breath and hypoxia. She has had no recurrence of her chest discomfort, she has been taking the reduced dose of carvedilol and has no lightheadedness or dizziness but she did have some hypotension on dialysis (which is not unusual for her). Today she feels well, she has had a fair amount of fluid removed on dialysis ( although I can't interpret her weights) and feels that her breathing is better. She is anxious to go home. Social History Smoking Status: Never Smoker History of Alcohol Use: No Review of Systems Respiratory: No cough, No sputum, No wheezing, No shortness of breath Cardiac: No chest pain, No palpitations Medications Cardiovascular: Item Value Date Time Aspirin 81 mg 03/07/17 0900 (Ecotrin Tab) DAILY/PO 03/10/17916 Atorvastatin 20 mg 03/06/17 2100 Calcium HS/PO 03/09/172049 (Lipitor Tab) Felodipine 5 mg 03/06/172099 (Plendil Tabcr) TID/PO 03/10/17918 Hydralazine HCl 25 mg 03/06/17 2100 (Apresoline Tab) TID/PO 03/10/1715 Ibuprofen 400 mg 03/07/17 1400 (Advil Tab) TID/PO 03/10/17 0915 Objective Vital Signs Past 12 Hours Date Time Temp Pulse Resp B/P (MAP) Pulse Ox O2 Delivery O2 Flow Rate FiO2 03/10/17 08:00 Nasal Cannula 2.0 03/10/17 07:40 93 Nasal Cannula 03/10/17 07:10 37.2 68 16 158/127 (137) 93 Nasal Cannula 2.0 03/10/17 04:00 47 Room Air 03/10/17 04:00 91 Nasal Cannula 1.0 03/10/17 03:57 36.8 69 16 167/63 (97) 91 Nasal Cannula 2.0 03/10/17 00:01 92 Nasal Cannula 1.0 03/09/17 23:57 36.8 63 19 117/59 (78) 92 Nasal Cannula 1.0 Last Recorded Weight-Kilograms: 95.300 Physical Exam Constitutional: General Apperance: heathly-appearing Level of Distress: NAD Lungs: Respiratory effort: no dyspnea, good air movement Auscultation: no wheezing, rales/crackles on the left, rales/crackles on the right Cardiovascular: Heart Auscultation: RRR, no murmurs, no rubs, no gallops, bradycardia Peripheral Pulses: Bruits: none appreciated Extremities: no edema Data Laboratory Results: Last 24 Hours Test 03/09/17 14:32 03/09/17 16:16 03/09/17 20:11 03/10/17 05:32 Bedside Glucose 118 mg/dl 183 mg/dl 218 mg/dl Sodium Level 134 mmol/L Potassium Level 3.9 mmol/L Chloride Level 94 mmol/L Carbon Dioxide Level 34 mmol/L Anion Gap 6.0 mmol/L Blood Urea Nitrogen 18 mg/dl Creatinine 3.60 mg/dl Est Creatinine Clear Calc Drug Dose 15.4 ml/min Estimated GFR () 14.0 Estimated GFR (Non- 12.0 BUN/Creatinine Ratio 5.1 Random Glucose 93 mg/dl Calcium Level 9.0 mg/dl Test 03/10/17 06:54 Bedside Glucose 111 mg/dl Telemetry reviewed: Sinus rhythm, no significant arrhythmia Assessment and Plan #1. SOB: Her shortness of breath has improved with fluid removal and I think was due to excessive fluid, not a cardiovascular cause. #2. Pericarditis: This appears to be stable, her symptoms have improved on ibuprofen but she does have a small effusion. I would continue ibuprofen at the current dose and I will see her in the office in follow-up in 2-4 weeks (I will make that appointment) and make adjustments from there. If we stop it now she may have recurrence. #3. Bradycardia: Her heart rate is much better now off of carvedilol, the cause the bradycardia is still somewhat mysterious. If we can avoid beta-blockade (if we don't need it for hypertension) then I would just continue to observe. Thank you for allowing me to participate in her care.
[2017-03-10] MEDS ORDERED: CEFD1CAP14 PO (12:25)
[2017-03-10] MEDS ORDERED: OXGN (12:25)
--- NOTE | 2017-03-10 12:34 | Discharge Instructions ---
Discharge Instructions Date of Service Mar 10, 2017. Admission Reason for Admission: Hypoxia Discharge Discharge Diagnosis / Problem: Pneumonia, Pleural effusion, Pericardial effusion Discharge Goals Goal(s): Decrease discomfort, Improve function, Improve disease control, Diagnostic testing, Screening, Prevent Disease Progression Activity Recommendations Activity Limitations: as noted below Lifting Limitations: gradually increase as tolerated Exercise/Sports Limitations: gradually increase as tolerated May Resume Sexual Activity: when tolerated Shower/Bathe: no limitations Driving or Machine Use: no limitations . Instructions / Follow-Up Instructions / Follow-Up Mrs. Patrick, August were admitted due to low oxygen, shortness of breath, low heart rate during your dialysis session You were found to have some fluid in your lungs and possibly a pneumonia which you were treated for. You did not want any invasive procedures for the fluid in your lungs. Please complete the antibiotic as prescribed. For your low heart rate; we discontinued your Coreg. Please follow up with Cardiology, Nephrology and PCP. Appointments will be facilitated by case management Also, You will be on home oxygen. Thank you for allowing us to participate in your care. Current Hospital Diet Patient's current hospital diet: Diabetes Type 2 Diet, Renal Diet Discharge Diet Recommended Diet: AHA Diet (Heart Healthy), Low Sodium Diet (2gm Na), Renal Diet Procedures Procedures Performed: Echocardiogram Pending Studies Studies pending at discharge: no Laboratory Results Hemoglobin A1c Test 02/23/17 15:38 Range/Units Estimated Average Glucose 143 mg/dl Hemoglobin A1c 6.6 H 4.5-5.6 % Lipid Panel Test 02/23/17 15:38 Range/Units Triglycerides Level 483 H 0-150 mg/dl Cholesterol Level 134 0-200 mg/dl HDL Cholesterol 32 mg/dl Cholesterol/HDL Ratio 4.2 LDL Cholesterol, Calculated mg/dl Medical Emergencies . Who to Call and When: Medical Emergencies: If at any time you feel your situation is an emergency, please call 911 immediately. . Non-Emergent Contact Non-Emergency issues call your: Primary Care Provider, Financial Analyst Accountant . . "Provider Documentation" section prepared by Yen Adams. . VTE Core Measure Inpt VTE Proph given/why not?: Unfractionated heparin SQ
[2017-03-10] MEDS ORDERED: CEFEPIME IV 500 MG in DEXTROSE 5% 100ML 100 ML IV SCH (18:00)
--- NOTE | 2017-03-10 22:52 | Discharge Instructions ---
Discharge Instructions Date of Service Mar 10, 2017. Admission Reason for Admission: Hypoxia Discharge Discharge Diagnosis / Problem: Intradialytic hypotension, bradycardia, hypoxia Discharge Goals Goal(s): Decrease discomfort, Improve function, Improve disease control, Improve nutritional status, Diagnostic testing Activity Recommendations Activity Limitations: as noted below Lifting Limitations: gradually increase as tolerated Exercise/Sports Limitations: as tolerated May Resume Sexual Activity: when tolerated Shower/Bathe: no limitations . Instructions / Follow-Up Instructions / Follow-Up Mrs. Patrick was admitted for acute intradialytic hypoxia, hypotension and bradycardia while at her dialysis session on Wednesday. They put her on O2 there , which did help. They were able to do 2.5 hrs of her usual 4 hr HD, but had to stop due to low BP and HR. She was sent to the ED at that time. When she arrived, she was found to have an O2 sat of 82% on RA. PMH sig for pericarditis, ESRD, COPD, DM II, HTN, h/o thrombophlebitis and hypothyroidism. Acute hypoxemic respiratory failure Treated for presumptive HCAP due to recent admission for pericarditis. Likely multifactorial - see below. Pt complained of dyspnea on exertion. Repeat CXR showed no consolidations and stable pleural effusions. Remained afebrile, WBC wnl. Blood cx neg. Treated with Cefepime and Vancomycin (renal dosing). Diastolic CHF Previously ECHO 02/26 EF 55-60%, no WMA. CTA 02/25 negative. Pericarditis, with effusion. No tamponade. Admitted to [facility] for this earlier this month for this. ECHO limited repeat with preserved EF, now with new small pericardial effusion likely secondary to pericarditis. Not large enough to benefit from pericardiocentesis, per cardio, recommend outpt f/u. Continued ibuprofen 400mg po tid throughout admission. Bradycardia Noted on previous admission (for pericarditis) and Coreg dose lowered to 12.5 then. Persistent. Per Cardio, DC Coreg. HTN Improved. continue home meds of hydralazine 25 tid, felodipine 5mg tid, but dcd Coreg due to bradycardia Will likely improve with HD back on schedule. ESRD Cont home meds Phoslo 667 Mg (Calcium Acetate), Nephrocaps (Vitamin B Complex/ Vit C/Folic Acid) Cap. Had 2 HD sessions during admission. HD is back on schedule. DMII Well controlled. Last A1C 6.6 January. On insulin while on inpatient and did have hypoglycemic episode 03/07, of 45. Titrated glycemic parameters, improved. No further episodes. Hypothyroidism Cont Levothyroxine Sodium 100 Mcg Tab. Therapeutic - Last TSH was 2.39 02/23/17. Anemia likely 2/2 renal disease, chronic disease. Hgb stable 9.6, improving. Chronic constipation Cont home lactulose Depression Stable, cont home meds Proph: Heparin SQ Dispo: Home Code: FULL Current Hospital Diet Patient's current hospital diet: Diabetes Type 2 Diet, Renal Diet Discharge Diet Recommended Diet: AHA Diet (Heart Healthy), Renal Diet Procedures Procedures Performed: Echocardiogram serial CXR Pending Studies Studies pending at discharge: no Laboratory Results Hemoglobin A1c Test 02/23/17 15:38 Range/Units Estimated Average Glucose 143 mg/dl Hemoglobin A1c 6.6 H 4.5-5.6 % Lipid Panel Test 02/23/17 15:38 Range/Units Triglycerides Level 483 H 0-150 mg/dl Cholesterol Level 134 0-200 mg/dl HDL Cholesterol 32 mg/dl Cholesterol/HDL Ratio 4.2 LDL Cholesterol, Calculated mg/dl Medical Emergencies . Who to Call and When: Medical Emergencies: If at any time you feel your situation is an emergency, please call 911 immediately. . Non-Emergent Contact Non-Emergency issues call your: Primary Care Provider . . "Provider Documentation" section prepared by Margret Barfield. . VTE Core Measure Inpt VTE Proph given/why not?: Unfractionated heparin SQ Resident Tracking Resident Involvement: Resident Care Provided Care Provided: Adult Hospital Medicine
--- NOTE | 2017-03-10 23:10 | Discharge Summary ---
Discharge Summary Date of Service Mar 10, 2017. (Margret Barfield M.D.) Discharge Summary Admission Date: Mar 06, 2017 at 11:23 Discharge Date: Mar 10, 2017 Discharge Disposition: Home Principal Diagnosis: Intradialytic hypotension, bradycardia, hypoxia Immunizations: Have You Had Influenza Vaccine: Yes Influenza Vaccine Date: Apr 27, 2005 History of Tetanus Vaccine?: Yes Tetanus Immunization Date: Nov 25, 2000 History of Pneumococcal: Yes Pneumococcal Date: Nov 25, 2002 History of Hepatitis B Vaccine: No Procedures: hemodialysis sessions x 2 (Margret Barfield M.D.) Medication Reconciliation New Medications: Cefdinir (Omnicef) 300 Mg Cap 300 MG PO Q48H for 7 Days, #4 CAP Home O2 Therapy (Oxygen) Gas 3 LITERS NA PRN for 30 Days, BTL Continued Medications: Aspirin (Aspirin Ec) 81 Mg Tab 81 MG PO DAILY Atorvastatin (Lipitor) 20 Mg Tab 20 MG PO HS, TAB Calcium Acetate (Phoslo 667 Mg) 667 Mg Cap 1 CAP PO TID for 90 Days, #270 CAP 3 Refills Citalopram Hydrobromide (Celexa) 40 Mg Tab 40 MG PO HS, TAB Felodipine (Felodipine ER) 5 Mg Tabcr 5 MG PO TID Gabapentin (Neurontin) 100 Mg Cap 100 MG PO 3XWEEK, CAP AM Saturdays BEFORE DIALYSIS Hydralazine Hcl (Apresoline) 25 Mg Tab 25 MG PO TID, TAB Ibuprofen (Ibuprofen) 400 Mg Tab 400 MG PO TID for 30 Days, #90 TABS 1 Refill Insulin Detemir (Levemir Flextouch) 100 Unit/Ml Inj 15 UNITS SC Q12 Lactulose (Encephalopathy) (Enulose) 10 Gm/15 Ml Jennifer 15 ML PO QAM Levothyroxine Sodium (Levothyroxine Sodium) 100 Mcg Tab 100 MCG PO DAILY for 90 Days, #90 TAB 3 Refills Magnesium Oxide (Mg Supplement (Magnesium) 400 Mg Cap 400 MG PO QAM Pantoprazole (Pantoprazole Sodium) 40 Mg Tab 40 MG PO BID, #60 TAB 1 Refill Vitamin B Cmplx/Vitc/Folic Ac (Nephrocaps) Cap 1 CAP PO QAM, CAP Discontinued Medications: Carvedilol (Carvedilol) 12.5 Mg Tab 12.5 MG PO BID, #60 TAB 1 Refill Discharge Exam Review of Systems: Constitutional: No fever, No chills, No sweats Respiratory: + dyspnea on exertion, No cough, No sputum, No wheezing Cardiovascular: No chest pain, No edema, No palpitations Physical Exam: General Appearance: WD/WN, no apparent distress Eyes: normal inspection, EOMI Respiratory/Chest: lungs clear, normal breath sounds, no respiratory distress Cardiovascular: regular rate, rhythm, no edema, no gallop, no JVD Abdomen / GI: normal bowel sounds, non tender, soft Extremities: normal inspection, no pedal edema Skin: normal color, warm/dry, no rash (Margret Barfield M.D.) Hospital Course Mrs. Patrick was admitted for acute intradialytic hypoxia, hypotension and bradycardia while at her dialysis session on Wednesday. They put her on O2 there , which did help. They were able to do 2.5 hrs of her usual 4 hr HD, but had to stop due to low BP and HR. She was sent to the ED at that time. When she arrived, she was found to have an O2 sat of 82% on RA. PMH sig for pericarditis, ESRD, COPD, DM II, HTN, h/o thrombophlebitis and hypothyroidism. Acute hypoxemic respiratory failure Treated for presumptive HCAP due to recent admission for pericarditis. Likely multifactorial - see below. Pt complained of dyspnea on exertion. Repeat CXR showed no consolidations and stable pleural effusions. Remained afebrile, WBC wnl. Blood cx neg. Treated with Cefepime and Vancomycin (renal dosing). Diastolic CHF Previously ECHO 02/26 EF 55-60%, no WMA. CTA 02/25 negative. Pericarditis, with effusion. No tamponade. Admitted to [facility] for this earlier this month for this. ECHO limited repeat with preserved EF, now with new small pericardial effusion likely secondary to pericarditis. Not large enough to benefit from pericardiocentesis, per cardio, recommend outpt f/u. Continued ibuprofen 400mg po tid throughout admission. Bradycardia Noted on previous admission (for pericarditis) and Coreg dose lowered to 12.5 then. Persistent. Per Cardio, DC Coreg. HTN Improved. continue home meds of hydralazine 25 tid, felodipine 5mg tid, but dcd Coreg due to bradycardia Will likely improve with HD back on schedule. ESRD Cont home meds Phoslo 667 Mg (Calcium Acetate), Nephrocaps (Vitamin B Complex/ Vit C/Folic Acid) Cap. Had 2 HD sessions during admission. HD is back on schedule. DMII Well controlled. Last A1C 6.6 January. On insulin while on inpatient and did have hypoglycemic episode 03/07, of 45. Titrated glycemic parameters, improved. No further episodes. Hypothyroidism Cont Levothyroxine Sodium 100 Mcg Tab. Therapeutic - Last TSH was 2.39 02/23/17. Anemia likely 2/2 renal disease, chronic disease. Hgb stable 9.6, improving. Chronic constipation Cont home lactulose Depression Stable, cont home meds Proph: Heparin SQ Dispo: Home Code: FULL Total Time Spent: Greater than 30 minutes This includes examination of the patient, discharge planning, medication reconciliation, and communication with other providers. (Margret Barfield M.D.) I agree with resident assessment and plan and have seen and examined pt myself Resting comfortably in bed VSS Labs reviewed Admitted with HCAP likely related to prev admission Will require O2 on DC Will also need to finish course of omnicef Cont HD for ESRD (Kain Gonzalez D.OPolo) Discharge Instructions Please refer to the electronic Patient Visit Report (Discharge Instructions) for additional information. (Margret Barfield M.D.) Additional Copies To Julito Burt M.D.
== END 2017-03-10 14:30 | disposition home or self-care (01) | DRG 193 ==
LOC: C.EDB 08:40 → C.2E 11:23 → ENRESERV 12:47
PROVIDERS: ADMIT Family Medicine; ATTEND Hospitalist
DX: J18.9 Pneumonia, unspecified organism (principal); N18.6 End stage renal disease; J96.01 Acute respiratory failure with hypoxia; I13.2 Hypertensive heart and chronic kidney disease with heart failure and with stage 5 chronic kidney disease, or end stage renal disease; I31.9 Disease of pericardium, unspecified; I50.32 Chronic diastolic (congestive) heart failure; E11.22 Type 2 diabetes mellitus with diabetic chronic kidney disease; F32.9 Major depressive disorder, single episode, unspecified; K21.9 Gastro-esophageal reflux disease without esophagitis; E03.9 Hypothyroidism, unspecified; E66.9 Obesity, unspecified; D63.1 Anemia in chronic kidney disease; E11.21 Type 2 diabetes mellitus with diabetic nephropathy; J44.9 Chronic obstructive pulmonary disease, unspecified; G47.33 Obstructive sleep apnea (adult) (pediatric); R00.1 Bradycardia, unspecified; E78.5 Hyperlipidemia, unspecified; K59.00 Constipation, unspecified; Z79.4 Long term (current) use of insulin; Z79.82 Long term (current) use of aspirin; Z79.899 Other long term (current) drug therapy; Z99.2 Dependence on renal dialysis; Z83.3 Family history of diabetes mellitus

== ENCOUNTER → 2017-03-22 | Outpatient (CLI) | payer OTHER ==
[~2017-03-22] MED LIST changes: -CRG125 PO; +OXGN
--- NOTE | 2017-03-22 15:11 | DIAGNOSTIC IMAGING REPORT ---
MANDIBLE MIN 4 VIEWS ROUTINE CLINICAL HISTORY: Right-sided facial pain. COMPARISON STUDY: No previous studies for comparison. FINDINGS: The patient is edentulous. No fractures are visualized. No destructive lesions are visualized on conventional radiographic imaging. IMPRESSION: Edentulous patient. No fractures or destructive mandibular lesions are visualized on conventional radiographic imaging Electronically signed by: Oscar Santa M.D. 03/22/2017 3:10 PM Dictated Date/Time: 03/22/2017 3:08 PM
== END | disposition home or self-care (01) ==
LOC: C.RADBC 14:36
PROVIDERS: ATTEND Physician Assistant
DX: R51 Headache (principal)

== ENCOUNTER → 2017-06-09 | Outpatient (CLI) | payer OTHER | END | disposition home or self-care (01) | LOC: C.RC 16:56 | PROVIDERS: ATTEND Physician Assistant | DX: R09.02 Hypoxemia (principal); I31.3 Pericardial effusion (noninflammatory) ==

== ENCOUNTER → 2017-10-15 | Outpatient (CLI) | payer OTHER | END | disposition home or self-care (01) | LOC: C.LABPVFM 07:57 | PROVIDERS: ATTEND Internal Medicine | DX: E55.9 Vitamin D deficiency, unspecified (principal); E03.9 Hypothyroidism, unspecified; E11.9 Type 2 diabetes mellitus without complications ==

== ENCOUNTER → 2017-12-24 | Outpatient (CLI) | payer OTHER ==
[~2017-12-24] MED LIST changes: +PANT1TAB4 PO; -PRT40 PO
--- NOTE | 2017-12-24 10:11 | DIAGNOSTIC IMAGING REPORT ---
CHEST 2 VIEWS ROUTINE HISTORY: 72 years-old Female J90 Pleural effusion follow-up study in a patient with history of trace left pleural effusion COMPARISON: Chest radiograph 7 03/31/2017 TECHNIQUE: PA and lateral views of the chest FINDINGS: Cardiac silhouette is within normal limits. Calcification of the aorta. There is no pneumothorax or overt pulmonary edema. Eventration of the right hemidiaphragm. No focal airspace consolidation. There is mild blunting of the bilateral costophrenic angles. This has improved from prior study. No large pleural effusion. Degenerative changes of the shoulders and spine. Surgical clips project over the epigastric region. IMPRESSION: 1. No acute process. 2. Minimal blunting of the bilateral costophrenic angles suggests scarring/atelectasis with trace pleural effusions also within the differential. No large pleural effusion identified. The above report was generated using voice recognition software. It may contain grammatical, syntax or spelling errors. Electronically signed by: Odilon Oro M.D. 12/24/2017 10:10 AM Dictated Date/Time: 12/24/2017 10:08 AM
== END | disposition home or self-care (01) ==
LOC: C.RAD1850 09:48
PROVIDERS: ATTEND Physician Assistant
DX: J90 Pleural effusion, not elsewhere classified (principal)

== ENCOUNTER → 2018-01-20 | Outpatient (CLI) | payer OTHER ==
[~2018-01-20] MED LIST changes: -B-CO1CAP17 PO; +B-COCAP2 PO
--- NOTE | 2018-01-21 06:56 | SPLIT NIGHT TECHNICIAN REPORT ---
[facility] Split Night Polysomnogram - Yarn Dumper Report Study date: 01/20/2018 Referring Physician: Liberty Babcock PA-C Name: LITO PATRICK Yarn Dumper: TIANA Escobar. Date of : 1945 Height: 72 years, Height 5' 2" Sex: Female Weight: 214 lbs Age: 72 BMI: Medications: 39.14 CYCLOBENZAPRINE HCL 5 MG, CITALOPRAM HYDROBROMIDE 40 MG, ONE TOUCH ULTRA, ATORVASTATIN CALCIUM 20 MG, PANTOPRAZOLE SODIUM 40 MG, CARVEDILOL 12.5 MG, HYDRALAZINE HCL 25 MG, MAGNESIUM OXIDE 400 MG, LEVOTHYROXINE SODIUM 100 MCG, ONDANSETRON HCL 4 MG, GABAPENTIN 100 MG, CALCIUM ACETATE, ASPIRIN EC 81 MG Patient History PATIENT HAS HISTORY OF SOB, DYSPNEA, SNORING AND TASH. SHE HAD SLEEP STUDY DONE IN 2009 AND WAS PUT ON 10 CWP. SHE CURRENTLY DOES NOT WEAR CPAP THOUGH. SHE IS HERE TODAY FOR AN EVALUATION FOR TASH. RM 8 Parameters Monitored NPSG: E1-M2, E2-M1, Fp1-M2, Fp2-M1, F3-M2, F4-M2, F4-M1, C3-M2, C4-M2, C4-M1, O1-M2, O2-M2, O2-M1, T3-M2, T4-M1, P3-M2, P4-M1, CHIN1, CHIN2, HR, EKG, Legs, PFLOW, SNOR, FLOW, CFLOW, Tidal Volume, THOR, ABDO, SpO2, PLTH, CPRESS, ETCO2 Wave, ETCO2, pH SLEEP SUMMARY DATA DIAGNOSTIC TREATMENT Lights Out: 9:43:20 PM 12:42:20 AM Lights On: 12:31:20 AM 6:15:20 AM Total Recording Time (TRT): 168.5 min. 333.5 min. Total Sleep Time (TST): 133.0 min. 275.5 min. NREM Time: 133.0 min. 218.0 min. REM Time: 0.0 min. 57.5 min. Sleep Period Time (SPT): 139.0 min. 331.0 min. Sleep Efficiency (SE): 79 % 83 % Sleep Latency: 29.0 min. 2.0 min. Arousal Index: 12.2 6.5 PAP Treatment Levels: 4, 6, 7, 8, 10, 11, 12, 10/6, 12/8, 14/8, 15/8, 16/9, 17/9, 18/10, 19/10, 21/12 * Optimal Pressure(s) SLEEP STAGING DATA DIAGNOSTIC TREATMENT Duration (min) TST % Duration (min) TST % Stage Wake: 35.0 min. -- 57.5 min. -- WASO: 6.0 min. -- 55.5 min. -- NREM: 133.0 min. 100 % 218.0 min. 79 % Stage N1: 5.0 min. 4 % 22.0 min. 8 % Stage N2: 89.5 min. 67 % 134.5 min. 49 % Stage N3: 38.5 min. 29 % 61.5 min. 22 % REM: 0.0 min. 0 % 57.5 min. 21 % POSITIONAL DATA Event Count Index Event Count Index Supine: N/A N/A 20 14.2 Supine NREM: N/A N/A 7 15.4 Supine REM: N/A N/A 13 14 Non-Supine: 111 50.1 111 34.9 Non-Supine NREM: 111 50.1 111 34.9 Non-Supine REM: N/A N/A N/A N/A AROUSAL SUMMARY DATA: Event Count Index Event Count Index Apnea Arousals: 2 0.9 0 1.5 Hypopnea Arousals: 6 2.7 5 1.1 Snore Arousals: 4 1.8 6 1.3 PLM Arousals: 10 4.5 4 0.9 Non-Specific Arousals: 6 2.7 15 3.3 Total Arousals: 27 12.2 30 6.5 MYOCLONUS (PLM) Event Count Index Event Count Index PLM: 254 114.6 81 17.6 PLM AROUSAL: 10 4.5 4 0.9 PLM W/O AROUSAL 254 114.6 77 16.8 PLM W/RESP EVENT 40 0.0 11 0.0 MYOCLONUS (PLM) Event Count Index Event Count Index LM: 0 20.8 38 8.3 LM AROUSAL: 0 0.0 1 0.2 LM W/O AROUSAL LM W/RESP EVENT LM NON SPECIFIC 245 110.5 95 20.7 HEART RATE DATA DIAGNOSTIC TREATMENT Sleep (bpm): 70 65 REM (bpm): N/A 89 NREM (bpm): 85 88 Tachycardia Count: 0 0 Tachycardia Duration: 0.00 0 Bradycardia Count: 0 0 Bradycardia Duration: 0.00 0 DIAGNOSTIC PORTION TREATMENT PORTION RESPIRATORY DATA Event Count Index Event Count Index AHI: -- 50.1 -- 28.5 RDI: -- 50.1 -- 29 Obstructive Apnea: 2 0.9 7 1.5 Central Apnea: 0 0.0 0 0.0 Mixed Apnea: 0 0.0 0 0.0 Hypopnea: 109 49.2 124 27.0 RERA: 0 0.0 0 0.0 Total Apneas: 2 0.9 7 1.5 RESPIRATORY DATA REM NREM SLEEP REM NREM SLEEP Supine Position: Obstructive Apneas: N/A N/A N/A 4 0 4 Central Apneas: N/A N/A N/A 0 0 0 Mixed Apneas: N/A N/A N/A 0 0 0 Hypopneas: N/A N/A N/A 9 7 16 RERA N/A N/A N/A 0 0 0 Total Supine Events: N/A N/A N/A 13 7 20 Supine AHI: N/A N/A N/A 14 15.4 14.2 Supine RDI: N/A N/A N/A 13.6 15.4 14.2 REM NREM SLEEP REM NREM SLEEP Non-Supine Position: Obstructive Apneas: N/A 2 2 N/A 3 3 Central Apneas: N/A 0 0 N/A 0 0 Mixed Apneas: N/A 0 0 N/A 0 0 Hypopneas: N/A 109 109 N/A 108 108 RERA N/A 0 0 N/A 0 0 Total Supine Events: N/A 111 111 N/A 111 111 Supine AHI: N/A 50.1 50.1 N/A 34.9 34.9 Supine RDI: N/A 50.1 50.1 N/A 34.9 34.9 OXYGEN DESTAURATION DATA: Event Count Index Event Count Index REM Desaturations: N/A N/A 14 14.6 NREM Desaturations: 135 60.9 184 50.6 SNORE DATA DIAGNOSTIC TREATMENT Snore Time: 8.1 12:44:20 AM Snore TST%: 3 12 Snore Arousal Count: 4 6 Snore Arousal Index: 1.8 1.3 Desaturation Event Summary: Minimum %SpO2 Event Count Mean/Min/Max Duration(sec.) Desaturation Index % Time In Bed > 90 145 15.3 / 6.0 / 53.0 143.6 12.2 86 - 90 303 14.5 / 5.8 / 56.0 57.9 63.1 81 - 85 48 13.5 / 7.5 / 44.8 24.4 23.8 76 - 80 0 N/A 0.0 0.5 71 - 75 0 N/A 0.0 0.0 66 - 70 0 N/A 0.0 0.1 61 - 65 0 N/A 0.0 0.2 56 - 60 0 N/A 0.0 0.1 51 - 55 0 N/A 0.0 0.0 < 50 0 N/A 0.0 0.0 OXYGEN SATURATION DATA DIAGNOSTIC TREATMENT SpO2 Mean Sleep: 85 % 88 % SpO2 Mean REM: N/A % 89 % SpO2 Mean NREM: 85 % 88 % SpO2 Minimum Sleep: 60 % 82 % SpO2 Minimum REM: N/A % 82 % SpO2 Minimum NREM: 60 % 82 % Time Below 90% (TST): 126.3 196.3 Time Below 88% (TST): 113.2 84.3 Total REM NREM Awake <50% 0.0 min. 0.0 min. 0.0 min. 0.0 min. 51 - 60% 0.8 min. 0.0 min. 0.6 min. 0.2 min. 61 - 70% 1.5 min. 0.0 min. 1.5 min. 0.0 min. 71 - 80% 2.4 min. 0.0 min. 2.4 min. 0.0 min. 81 - 90% 432.4 min. 48.7 min. 312.3 min. 71.3 min. 91 - 100% 60.6 min. 8.8 min. 32.5 min. 19.3 min. Average 87 89 87 88 Minimum SpO2 53 82 60 53 Desaturation Event Index 45.6 14.6 54.5 33.7 # Desat. Events below 89% 364 14 311 39 Time(%) with Saturation below 89% 61.3 3.7 47.6 10.0 Time(min.) with Saturation below 89% 305.0 18.6 236.9 49.5 Recording Yarn Dumper Comments: Mrs. Patrick slept in the right and supine positions. No cardiac arrhythmia noted. Leg movements noted. No bruxism noted. Snoring was noted and scored as a 3 on a scale of 1 through 5. (0=no snoring, 5=snoring loud enough to be heard through a closed door or down the [address]) At 12:31 am Mrs. Patrick has met specific Split-Night criteria during the diagnostic portion of this study. CPAP was initiated at +4 CMH2O and up-titrated to an level of +12 CMH2O. I switched to BIPAP at 10/6 and increased to 21/12. A Resmed Mirage Quattro full face size small mask was used during titration Mrs. Patrick awoke to use the restroom 0 times during the night. Mrs. Patrick stated I did not sleep as well as I do when I am in my own bed. The patient felt that she could breathe better using BIPAP and felt that she got better sleep and will more likely wear the mask if she can have BIPAP. The final report will be interpreted and signed by a sleep physician. The completed physician report will then be placed in the patient medical record. Therapy Event: Therapy (cm H20) 0 4 6 7 8 10 11 12 10/6 Total Time at Pressure (min.) 168.0 26.1 11.0 15.1 10.8 4.7 10.7 113.4 23.6 TST at Pressure (min.) 133.0 18.1 9.0 12.6 10.8 4.7 8.7 87.7 10.3 # Periods 1 1 1 1 1 1 1 1 1 Sleep Onset (min.) 29.0 2.0 0.0 0.0 0.0 0.0 0.0 0.0 11.3 REM Onset (min.) N/A N/A N/A N/A N/A N/A N/A N/A N/A Sleep Efficiency % 79 69 81 83 100 100 81 77 43 Wakefulness (%) 20.8 30.7 18.2 16.6 0.0 0.0 18.8 22.7 56.4 Wakefulness (min.) 35.0 8.0 2.0 2.5 0.0 0.0 2.0 25.7 13.3 NREM 1 (%) 3.0 36.4 9.1 6.6 0.0 0.0 9.4 3.1 19.1 NREM 1 (min.) 5.0 9.5 1.0 1.0 0.0 0.0 1.0 3.5 4.5 NREM 2 (%) 53.3 32.9 72.8 76.8 95.4 75.3 54.6 29.3 24.5 NREM 2 (min.) 89.5 8.6 8.0 11.6 10.3 3.6 5.8 33.2 5.8 NREM 3 (%) 22.9 0.0 0.0 0.0 4.6 24.7 17.2 45.0 0.0 NREM 3 (min.) 38.5 0.0 0.0 0.0 0.5 1.2 1.8 51.0 0.0 REM (%) 0.0 0.0 0.0 0.0 0.0 0.0 0.0 0.0 0.0 REM (min.) 0.0 0.0 0.0 0.0 0.0 0.0 0.0 0.0 0.0 # Arousals 27 8 2 1 0 0 5 4 4 Arousal Index 12.2 26.6 13.3 4.8 0.0 0.0 34.7 2.7 23.3 # Snore 362 20 14 30 34 43 42 158 19 Snore Index 163.3 66.4 93.2 143.4 188.9 545.5 291.2 108.1 110.9 AHI 50.1 33.2 93.2 66.9 50.0 63.4 48.5 13.0 81.7 AHI Supine N/A N/A N/A N/A N/A N/A N/A N/A N/A AHI Non-Supine 50.1 33.2 93.2 66.9 50.0 63.4 48.5 13.0 81.7 NREM AHI 50.1 33.2 93.2 66.9 50.0 63.4 48.5 13.0 81.7 REM AHI N/A N/A N/A N/A N/A N/A N/A N/A N/A RDI 50.1 33.2 93.2 66.9 50.0 63.4 48.5 13.0 81.7 # Obstructive 2 0 0 0 0 0 1 1 1 # Central Ap 0 0 0 0 0 0 0 0 0 # Mixed 0 0 0 0 0 0 0 0 0 # Hypopneas 109 10 14 14 9 5 6 18 13 RERAS 0 0 0 0 0 0 0 0 0 Total Respiratory Events 111 10 14 14 9 5 7 19 14 Time Below SpO2 89.00% (min.) 121.7 17.1 7.8 10.6 9.7 3.0 6.1 33.7 5.1 Mean NREM SpO2 (%) 85 85 86 86 87 88 87 89 89 Mean REM SpO2 (%) N/A N/A N/A N/A N/A N/A N/A N/A N/A Mean Sleep SpO2 (%) 85 85 86 86 87 88 87 89 89 Min NREM SpO2 (%) 60 82 83 83 83 85 85 83 85 Min REM SpO2 (%) N/A N/A N/A N/A N/A N/A N/A N/A N/A Position Supine (min.) 0.0 0.0 0.0 0.0 0.0 0.0 0.0 0.0 0.0 Position Non-supine (min.) 133.0 18.1 9.0 12.6 10.8 4.7 8.7 87.7 10.3 LM Index Sleep 135.3 16.6 159.7 162.5 83.4 50.7 131.7 12.3 0.0 LM Index NREM 135.3 16.6 159.7 162.5 83.4 50.7 131.7 12.3 0.0 LM Index REM N/A N/A N/A N/A N/A N/A N/A N/A N/A Mean Heart Rate (bpm) 70 68 68 67 67 67 66 65 62 Min Heart Rate (bpm) 65 65 65 65 64 64 63 61 60 Therapy (cm H20) 05/07 148 15/8 16/9 17/9 18/10 18/03 21/12 Total Time at Pressure (min.) 5.7 5.9 29.4 5.7 13.6 13.5 13.5 30.4 TST at Pressure (min.) 5.7 5.9 26.9 5.7 13.6 13.5 13.5 28.9 # Periods 1 1 1 1 1 1 1 1 Sleep Onset (min.) 0.0 0.0 0.0 0.0 0.0 0.0 0.0 0.0 REM Onset (min.) N/A N/A N/A 1.7 0.0 0.0 0.0 0.0 Sleep Efficiency % 100 100 91 100 100 100 100 95 Wakefulness (%) 0.0 0.0 8.5 0.0 0.0 0.0 0.0 4.9 Wakefulness (min.) 0.0 0.0 2.5 0.0 0.0 0.0 0.0 1.5 NREM 1 (%) 0.0 0.0 3.4 0.0 0.0 0.0 0.0 1.6 NREM 1 (min.) 0.0 0.0 1.0 0.0 0.0 0.0 0.0 0.5 NREM 2 (%) 100.0 100.0 88.1 30.2 0.0 0.0 0.0 28.0 NREM 2 (min.) 5.7 5.9 25.9 1.7 0.0 0.0 0.0 8.5 NREM 3 (%) 0.0 0.0 0.0 0.0 0.0 0.0 0.0 23.0 NREM 3 (min.) 0.0 0.0 0.0 0.0 0.0 0.0 0.0 7.0 REM (%) 0.0 0.0 0.0 69.8 100.0 100.0 100.0 42.4 REM (min.) 0.0 0.0 0.0 4.0 13.6 13.5 13.5 12.9 # Arousals 0 2 2 0 0 2 0 0 Arousal Index 0.0 20.4 4.5 0.0 0.0 8.9 0.0 0.0 # Snore 14 31 136 31 15 4 100 128 Snore Index 147.1 315.9 303.3 327.2 66.1 17.8 443.4 265.7 AHI 84.0 51.0 22.3 31.7 13.2 13.4 26.6 2.1 AHI Supine N/A N/A 25.3 31.7 13.2 13.4 26.6 2.1 AHI Non-Supine 84.0 51.0 20.7 N/A N/A N/A N/A N/A NREM AHI 84.0 51.0 22.3 69.9 N/A N/A N/A 3.8 REM AHI N/A N/A N/A 15.1 13.2 13.4 26.6 0.0 RDI 84.0 51.0 22.3 31.7 13.2 13.4 26.6 2.1 # Obstructive 0 0 0 0 2 0 2 0 # Central Ap 0 0 0 0 0 0 0 0 # Mixed 0 0 0 0 0 0 0 0 # Hypopneas 8 5 10 3 1 3 4 1 RERAS 0 0 0 0 0 0 0 0 Total Respiratory Events 8 5 10 3 3 3 6 1 Time Below SpO2 89.00% (min.) 3.3 3.2 14.7 1.1 5.1 5.3 4.2 3.7 Mean NREM SpO2 (%) 88 89 88 90 N/A N/A N/A 91 Mean REM SpO2 (%) N/A N/A N/A 89 89 89 89 89 Mean Sleep SpO2 (%) 88 89 88 90 89 89 89 90 Min NREM SpO2 (%) 84 85 83 87 N/A N/A N/A 87 Min REM SpO2 (%) N/A N/A N/A 87 82 85 84 87 Position Supine (min.) 0.0 0.0 9.5 5.7 13.6 13.5 13.5 28.9 Position Non-supine (min.) 5.7 5.9 17.4 0.0 0.0 0.0 0.0 0.0 LM Index Sleep 0.0 0.0 0.0 0.0 0.0 0.0 0.0 0.0 LM Index NREM 0.0 0.0 0.0 0.0 N/A N/A N/A 0.0 LM Index REM N/A N/A N/A 0.0 0.0 0.0 0.0 0.0 Mean Heart Rate (bpm) 62 62 63 64 66 65 64 63 Min Heart Rate (bpm) 60 60 60 60 63 61 61 60
--- NOTE | 2018-01-25 09:45 | POLYSOMNOGRAPH REPORT ---
CLINICAL DATA: The patient is a 72-year-old female with a BMI of 39.14. She does have a history of snoring and shortness of breath. She had a sleep study done in 2009, which showed mild apnea with an apnea-hypopnea index of 7.9. She was treated with nasal CPAP at 10 cm. She no longer wears nasal CPAP. She is referred to the sleep disorder center for a diagnostic sleep study. A split study was done because of severe apnea. SLEEP ARCHITECTURE: The study was divided into a diagnostic and treatment portion. During the diagnostic portion of the study, the sleep period time was 139 minutes. The total sleep time was 133 minutes. The sleep efficiency was moderately reduced to 79%. The sleep latency was somewhat prolonged to 29 minutes. Sleep consisted of stage N1 of 4%, stage N2 of 67%, stage N3 of 29%, stage REM 0%. During the treatment portion of the study, the patient was treated first with CPAP and then BiPAP. The sleep period time was 331 minutes. The total sleep time was 275.5 minutes. The sleep efficiency was 83%. The sleep latency was 2 minutes. Sleep consisted of stage N1 of 8%, stage N2 of 49%, stage N3 of 22%, stage REM of 21%. AROUSAL DATA: During the diagnostic portion of the study, the patient had a total of 27 arousals including 2 apnea arousals, 6 hypopnea arousals, 4 snoring arousals, 10 PLM arousals, and 6 nonspecific arousals. The arousal index was 12.2. During the treatment portion of the study, the patient had a total of 30 arousals including 5 hypopnea arousals, 6 snoring arousals, 4 PLM arousals, and 15 nonspecific arousals. The arousal index was 6.5. PLM DATA: During the diagnostic portion of the study, the patient had 254 periodic limb movements for a PLM index severely elevated at 114.6. There were 10 arousals, associated with limb movements for a PLM arousal index of 4.5. During the treatment portion, there were 81 periodic limb movements for a PLM index of 17.6. There were 4 arousals associated with limb movements for a PLM arousal index of 0.9. EKG: The underlying cardiac rhythm was normal sinus. The cardiac rates ranged from 65-88 beats per minute. No arrhythmia was noted. RESPIRATORY DATA: During the diagnostic portion of the study, the patient had a total of 111 respiratory events including 2 obstructive apneas and 109 hypopneas. Hypopneas were scored according to the 4% desaturation rule. The apnea-hypopnea index was severely elevated at 50.1 events per hour. During the treatment portion of the study, the patient's events were treated first with CPAP and then BiPAP. She was having difficulty tolerating CPAP. There was a total of 131 respiratory events including 7 obstructive apneas and 124 hypopneas. The apnea-hypopnea index was 28.5. At the final pressure of BiPAP 21/12, the apnea-hypopnea index was only 2.1. OXIMETRY DATA: During the diagnostic portion of the study, the patient had a mean saturation of 85%. The minimum saturation was 60%. There was a total of 113.2 minutes with saturations less than 88%. During the treatment portion of the study, the mean saturation was 88%. The minimum saturation was 82%. There was a total of 84.3 minutes with saturations less than 88%. At the final pressure, the minimum saturation was 87%. GAMEPLAY PROGRAMMER COMMENTS: Ms. Patrick slept in the right and supine positions. No cardiac arrhythmia noted. Leg movements noted. No bruxism noted. Snoring was noted and scored as a 3 on a scale of 1 through 5. At 12:31 a.m., Ms. Patrick has met specific split night criteria during the diagnostic portion of the study. CPAP was initiated at 4 cm and up titrated to a level of 12 cm. She was switched to BiPAP at 10/6 and ultimately increased to 21/12. She felt that she could breathe better using BiPAP and felt that she got better sleep with BiPAP. A ResMed Mirage Quattro full face mask, size small, was used during titration. IMPRESSION: 1. Severe obstructive sleep apnea. 2. Periodic limb movement disorder. COMMENTS: The patient has severe sleep apnea as noted. She required high pressures of BiPAP to resolve her respiratory events. Much of the time at the final pressure, she was in REM sleep and supine. Her oxygenation remained lower than desired. RECOMMENDATIONS: 1. It is advised that the patient be started on BiPAP 21/12. 2. It is suggested that she utilize a ResMed Quattro Mirage full face mask size small, which was given to her from the sleep lab. 3. It is suggested that she have an overnight pulse oximetry study approximately 2 weeks after she is on BiPAP to evaluate for the need for oxygen to be instilled into the BiPAP. 4. Weight loss is advised in light of the elevation of body mass index of 39.14.
== END | disposition home or self-care (01) ==
LOC: C.NEUR 21:00
PROVIDERS: ATTEND Physician Assistant
DX: G47.33 Obstructive sleep apnea (adult) (pediatric) (principal); G47.61 Periodic limb movement disorder

== ENCOUNTER 2018-06-16 17:12 | Inpatient (IN) | END 2018-06-19 16:40 | disposition home or self-care (01) | LOC: 4W 17:12 → ED 17:12 → SUATTDRO 23:10 → 4W 23:46 → SUATTDRO 06-17 12:56 → 2S 06-19 09:33 ==

== ENCOUNTER 2018-12-28 14:50 | Inpatient (IN) ==
[2018-12-28] MEDS ORDERED: ONDANSETRON INJ 2 MG/ML 2 ML VIAL IV STA (15:32)
[2018-12-28] MEDS ORDERED: SODIUM CHLORIDE 0.9% 1000ML 250 ML IV ONE (15:32)
[2018-12-28 15:43] LABS: Basophils # (auto) 0.05 K/uL (0-0.2); Basophils % (auto) 0.6 %; Eosinophils # (auto) 0.12 K/uL (0-0.5); Eosinophils % (auto) 1.4 %; Hematocrit (blood only) 37.1 % (37-47); Hemoglobin 11.5 g/dL (12.0-16.0); Immature Granulocytes # (auto) 0.05 K/uL (0.00-0.02); Immature Granulocytes % (auto) 0.6 %; Lymphocytes # (auto) 1.42 K/uL (1.2-3.4); Lymphocytes % (auto) 16.6 %; Mean Corpuscular Volume 101.9 fL (80-100); Monocytes # (auto) 0.64 K/uL (0.11-0.59); Monocytes % (auto) 7.5 %; Neutrophils # (auto) 6.28 K/uL (1.4-6.5); Neutrophils % (auto) 73.3 %; Platelet Count 193 K/uL (130-400); RDW Coefficient of Variation 14.2 % (11.5-14.5); RDW Standard Deviation 53.1 fL (36.4-46.3); Red Blood Count 3.64 M/uL (4.2-5.4); White Blood Count 8.56 K/uL (4.8-10.8)
[2018-12-28 16:09] LABS: Albumin Globulin Ratio 0.8 (0.9-2); Albumin Level 3.8 gm/dl (3.4-5.0); BUN Creatinine Ratio 5.3 (10-20); Bilirubin,Total 0.3 mg/dl (0.2-1); Calcium 9.2 mg/dl (8.5-10.1); Creatinine Clr Calc Pharmacy 10.1 ml/min; Est GFR (African American) 8.3; Est GFR (Non-African American) 7.2; Globulin 4.7 gm/dl (2.5-4.0); Potassium 4.8 mmol/L (3.5-5.1); Total Protein 8.5 gm/dl (6.4-8.2); Troponin I 0.139 ng/ml (0-0.045)
[2018-12-28] MEDS ORDERED: NITROGLYCERIN 2% OINTMENT 30GM TUBE EXT ONE (16:20)
[2018-12-28] MEDS ORDERED: PROMETHAZINE 12.5 MG/50.5 ML BAG IV STA (16:20)
--- NOTE | 2018-12-28 17:09 | XRay Report ---
XR chest 1V not portable CLINICAL HISTORY: vomitting eval for obstruction nausea COMPARISON STUDY: 07/26/2018 FINDINGS: Minimal infiltrative process left base. Lungs otherwise appear clear. Diaphragms are smooth . IMPRESSION: Minimal parenchymal infiltrate/atelectasis left base. The above report was generated using voice recognition software. It may contain grammatical, syntax or spelling errors. Nausea Electronically signed by: Eder Moss M.D. 12/28/2018 5:08 PM
[2018-12-28] MEDS ORDERED: OPTIRAY 320 125ml IV PRN (17:26)
--- NOTE | 2018-12-28 18:23 | CT Scan Report ---
CT SCAN OF THE CHEST, ABDOMEN, AND PELVIS WITHOUT IV CONTRAST CLINICAL HISTORY: Hypoxia. Epigastric abdominal pain. COMPARISON STUDY: Chest CT dated 02/25/2017. Abdominal CT dated 10/17/2015. Chest x-ray dated 9. TECHNIQUE: CT scan of the chest, abdomen, and pelvis was performed from the thoracic inlet to the pro ximal femora. Images are reviewed in the axial, sagittal, and coronal planes. IV contrast was not adm inistered as per the referring clinician. Note that the examination was performed in significantly pitts boptimal fashion without IV contrast. The examination is also compromised by motion artifact. A dose lowering technique was utilized adhering to the principles of ALARA. CT DOSE: 2104.76 mGy.cm FINDINGS: CHEST: Thyroid: Imaged portions of the thyroid gland are normal in size and heterogeneous and attenuation. Thoracic aorta: There is atherosclerotic calcification of the thoracic aorta, which is normal in nadia demetri and demonstrates bovine variant arch anatomy. Heart: The heart is enlarged and without pericardial effusion. There are scattered coronary artery ca lcifications. The mitral annulus is densely calcified. The pulmonary trunk is dilated measuring 3.9 c m in diameter. This suggests pulmonary artery hypertension. Lungs and pleural spaces: Evaluation of the lung parenchyma is degraded by motion artifact. There are trace pleural effusions with dependent atelectasis. Foci of scarring/atelectasis are seen bilaterall y. There is no airspace consolidation seen typical for pneumonia. The trachea and central airways are clear. Mild intralobular septal thickening is observed. Mediastinum: There are subcentimeter mediastinal lymph nodes. These are not pathologically enlarged b y size criteria. Karyn: Not well assessed without IV contrast. Axillae: There is no axillary lymphadenopathy. Bony thorax: The skeletal structures are osteopenic. Degenerative change and mild hyperkyphosis are n oted in the thoracic spine. Arthritic change is seen in the shoulders. No lytic or blastic lesions ar e identified. ABDOMEN AND PELVIS: Liver: The unenhanced liver is normal in size, contour, and attenuation. There is no intrahepatic or ductal dilatation. Gallbladder: Unremarkable. Spleen: Normal in size and attenuation. Pancreas: The unenhanced pancreas is moderately atrophic and grossly unremarkable. Adrenal glands: A 2.3 cm left adrenal adenoma is unchanged. The right adrenal gland is normal in appe arance. Kidneys: The unenhanced kidneys are atrophic and without hydronephrosis. No renal calculi are identif ied. There is no evidence of contour deforming mass lesion. Abdominal vasculature: The abdominal aorta is normal in course and caliber noting moderate to advance d atherosclerotic calcification. Stomach and bowel: There is a moderate to large hiatal hernia. Ingested material is contained within the hiatal hernia. Postoperative change is suggested at the esophageal hiatus. The duodenum is normal in configuration. No bowel obstruction is seen. There is mild to moderate colonic diverticulosis wit hout CT evidence of acute diverticulitis. The appendix is not identified. Peritoneum: There is no intraperitoneal free air or abdominal ascites. A fat-containing ventral herni a is seen in the pelvis. Lymphadenopathy: None. Pelvic viscera: The bladder is normal as visualized. The uterus is surgically absent. No adnexal lesi on is seen. Bilateral fat-containing right inguinal hernias are noted. Skeletal structures: The skeletal structures are osteopenic. There is mild lumbosacral spondylosis. N o lytic or blastic lesions are seen. IMPRESSION: 1. Suboptimal examination without IV contrast. The examination is also compromised by motion artifact . 2. Cardiomegaly. Mild intralobular septal thickening may represent a component of acute versus chroni c congestion. Clinical correlation will be required. 3. There are trace pleural effusions with bibasilar atelectasis. 4. There is a moderate debris filled hiatal hernia. 5. No acute infectious or inflammatory findings are seen in the abdomen or pelvis. 6. Mild to moderate colonic diverticulosis without CT evidence of acute diverticulitis. 7. Additional findings as above. Electronically signed by: Derek Low M.D. 12/28/2018 6:20 PM
--- NOTE | 2018-12-28 19:47 | History & Physical Report ---
Date of Service December 28, 2018 Assessment & Plan (1) Abdominal pain, epigastric: 73-year-old female who presents with acute onset of nonbloody emesis, epigastric abdominal pain since 1 AM this morning. Her accompanies her at the bedside. Patient is in visible discomfort and nausea. helps provide the history. He states that she woke up this morning at 1 AM with acute onset of nausea. She has been emetic all day, denies blood in the vomitus. Poor p.o. intake. Of note, denies any loose stools. Denies any new or exotic foods. Denies any sick contacts. states that her issues with her reflux and nausea have progressively worsened since the esophageal band was removed, and according to her records it appears this has been since at least 2014. Patient denies cough or wheezing. She is currently on 4 L via oxygen mask. According to her record she is on 2 to 3 L at baseline for her COPD and severe sleep apnea. ED course: Fluids, Zofran, Phenergan. Assessment: abdominal pain 2/2 symptomatic hiatal hernia and esophageal dysmotility and dyspepsia -afebrile, no leukocytosis, no diarrhea Plan: -bowel rest, advance as tolerated -antiemetics -pain control FEN/GI: npo with sips, (advance as tolerated), NSS @100ml/hr x 1 day for hydration, PPI& H2B ordered IV here. DVT ppx: heparin sq CODE STATUS: DNR/DNI as discussed with pt and DISPO: tele given increased o2 demand and elev troponins. (2) Hernia, hiatal: Chronic -- Review of records shows most recent barium swallow in July 2018 noted a small hiatal hernia, and moderate esophageal dysmotility. -History of repair of paraesophageal hiatus hernia with thoraco-abdominal implant of mesh - Removed after 2014 - seen on CT abd/pelv here, with food remnants within. - On PPI and H2 ramesh - both ordered IV here until pt able to resume PO. -sees [facility] normally. (3) Dysphagia: As above (4) Near syncope: likely vaso vagal given presentation. -resolved -fall precautions ordered. (5) Vomiting: antiemetics ordered. QTc is not prolonged, ok for zofran/phenergan. (6) Hypoxemia: -increased O2 demand (up 2-3 L from her baseline) possibly from ?aspiration but CT chest does not show brynn signs of this, no fevers no leukocytosis, defer abx - - ABG shows mild hypercapnea with compensated pH -- her slight elevation in oxygen demand is also possibly due to antalgia given her abdominal pain(as above) with not a lot of reserve as far as space given her large hiatal hernia and cardiomegaly. 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 - ordered here -Pt has known COPD, 2-3L O2 dependent, On Spiriva (7) Elevated troponin: -History of chronically elevated troponin 0.06 - 0.09 in setting of CAD and ESRD -here with 0.139 -no dynamic EKG changes -pain very consistent with epigastric pain -trend cadiac isos -monitor on tele (8) End-stage renal disease (ESRD): CKD Stage IV On dialysis HD every Wednesday and Wednesday -nephrology consulted (9) Depression with anxiety: continue home citalopram (10) Dyslipidemia: hold home statin while nauseous and emetic (11) GERD without esophagitis: as above (12) Obstructive sleep apnea: as above (13) 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 (14) Chronic diastolic heart failure: Echo April 2017 this year found ejection fraction 55%. Mild LVH. -appears dry on exam, fluids x 1 day ordered. (15) Hypothyroidism: Cont home levothyroxine (16) Anemia: Chronic anemia in setting of renal disease, with a baseline of 9.5 -likely hemoconcentrated here upon presentation. Fluids as above. Follow. For dialysis tomorrow. History of Present Illness Chief Complaint: Acute onset abdominal pain, nausea, intractable emesis Primary Care Provider: Julito Burt MD 73-year-old female who presents with acute onset of nonbloody emesis, epigastric abdominal pain since 1 AM this morning. Her accompanies her at the bedside. Patient is in visible discomfort and nausea. helps provide the history. He states that she woke up this morning at 1 AM with acute onset of nausea. She has been emetic all day, denies blood in the vomitus. Poor p.o. intake. Of note, denies any loose stools. Denies any new or exotic foods. Denies any sick contacts. states that her issues with her reflux and nausea have progressively worsened since the esophageal band was removed, and according to her records it appears this has been since at least 2014. Patient denies cough or wheezing. She is currently on 4 L via oxygen mask. According to her record she is on 2 to 3 L at baseline for her COPD and severe sleep apnea. Review of records shows most recent barium swallow in July 2018 noted a small hiatal hernia, and moderate esophageal dysmotility. ED course: Fluids, Zofran, Phenergan. PMH 1. TASH Noncompliant with BiPAP, COPD, 2-3L O2 dependent, On Spiriva 2. Chronic GERD, esophageal dysmotility - On PPI and H2 ramesh 3. Echo April 2017 this year found ejection fraction 55%. Mild LVH. 4. Incontinence 5. Depression with anxiety 6. Diabetes with retinopathy - Last A1c 6.8 7. Dyslipidemia 8. History of chronically elevated troponin 9. Hypertension 10. ESRD on dialysis HD every Wednesday and Wednesday 11. Chronic anemia with a baseline of 9.5 12. Hypothyroidism PSH 1. Bladder surgery 2. Cataract surgery 3. Nasal septoplasty 4. History of repair of paraesophageal hiatus hernia with thoraco-abdominal implant of mesh - Removed after 2014 5. CRISTINO simone RUANO SH Lives with . Non-smoker. Allergies Allergy/AdvReac Type Severity Reaction Status Date / Time lisinopril AdvReac Intermediate cough Verified 12/28/18 15:33 Home Medications Home Medications Medication Instructions Recorded Confirmed Type ProRenal QD 1 tab PO QDL 06/16/18 12/28/18 History aspirin 81 mg PO QAM 06/16/18 12/28/18 History calcium acetate 1,334 mg PO TIDM 06/16/18 12/28/18 History carvedilol 12.5 mg PO BID 06/16/18 12/28/18 History citalopram 20 mg PO HS 06/16/18 12/28/18 History levothyroxine 100 mcg PO HS 06/16/18 12/28/18 History calcium acetate 667 mg PO UD 07/26/18 12/28/18 History atorvastatin 20 mg tablet 20 mg PO HS #90 tab 11/11/18 12/28/18 Rx hydralazine 25 mg tablet 25 mg PO TID 90 Days #270 tab 11/11/18 12/28/18 Rx pantoprazole 40 mg tablet,delayed 40 mg PO BID 90 Days #180 tab 11/11/18 12/28/18 Rx release gabapentin 300 mg capsule 300 mg PO 3XWK #42 cap 12/20/18 12/28/18 History magnesium 400 mg (as magnesium 400 mg PO QAM cap 12/20/18 12/28/18 History oxide) capsule albuterol sulfate HFA 90 2 puffs INHALATION .INHALE 2 PUFFS 12/21/18 12/28/18 History mcg/actuation aerosol inhaler EVERY #1 gm gabapentin 300 mg PO HS 12/28/18 12/28/18 History insulin detemir U-100 20 unit SUBCUT BID 12/28/18 12/28/18 History Past Med/Surg History Medical History Depression with anxiety (Acute) Diabetic retinopathy (Acute) Dyslipidemia (Acute) Dysphagia (Acute) Epigastric pain (Acute) GERD without esophagitis (Acute) Hypomagnesemia (Acute) Hypotension (Acute) Insomnia (Acute) Joint pain, knee (Acute) Macular puckering, bilateral (Acute) Obstructive sleep apnea (Acute) Otalgia (Acute) Panniculitis (Acute) Paresthesias (Acute) Polyarthritis (Acute) Proteinuria (Acute) Stage 4 chronic kidney disease (Acute) Tubular adenoma of colon (Acute) 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 (Acute) Vitamin D deficiency (Acute) Chronic diastolic heart failure Hypothyroidism Coronary artery disease UTI (urinary tract infection) Anemia Elevated troponin COPD (chronic obstructive pulmonary disease) Diabetes mellitus Diabetes Dehydration (Acute) Chronic kidney disease (Chronic) Arthritis (Chronic) 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) Depression (Chronic) End stage renal disease History of thrombophlebitis (Resolved) Hypertension (Acute) Obesity Diabetes Surgical History H/O: hysterectomy (Resolved) S/P arteriovenous (AV) fistula creation S/P hysterectomy S/P rotator cuff repair Family History Mother Leukemia Cerebral aneurysm Hypertension Anxiety Diabetes Grandmother Hypertension Father Osteoarthritis Diabetes Sister Diabetes Myocardial infarction Brother Myocardial infarction Other No significant family history Social History Preferred Language: Cymraes Communication Ability: Effective Body Liner Required: No Beliefs That Will Affect Care: None Current Living Situation: Spouse Other Information That Helps Us Care for You: No Feels Safe at Home: Yes Safety Concerns: Feels Safe At This Time Smoking Status: Never smoker Do You Dip or Chew Tobacco: No Second Hand Exposure: No Tobacco Cessation Education Requested by Patient: No Hx Alcohol Use: No Hx Substance Use: No Review of Systems Review of Systems: All systems reviewed & are unremarkable except as noted in HPI & below Physical Exam Physical Exam: Vitals noted and within normal limits with the exception of hypertension, hypoxia. GENERAL: Awake, alert to person, place, and time, tired-appearing, in mild distress. "I am a miserable individual." HENT: Normocephalic, atraumatic. Nasal cannula in place. Mucus membranes appear dry. EYES: Normal conjunctiva. Sclera non-icteric. EOMI. NECK: Supple. Full range of motion. No JVD. RESPIRATORY: Slight wheezes bilaterally, otherwise no rhonchi or rales. Normal work of breathing. CARDIAC: Regular rate, normal rhythm. Extremities warm and well perfused, ABDOMEN: Soft, non-distended. Mild tenderness to palpation in epigastric. No rebound or guarding. No masses. Bowel sounds are normal. LOWER EXTREMITIES: Inspection of calves reveal equal size bilaterally. They are non-tender. Trace edema in bilateral ankles. Venous stasis discoloration. (Patient states she has had edema in her ankles for 20 years). NEURO: No gross focal motor deficits noted. Sensation in tact. CN II-XII grossly in tact. . SKIN: Rash not present. No jaundice noted. Significant lesions include very mild and healing small furuncle in her right gluteal area. PSYCH: Appropriate mood and affect. Cooperative. is at the bedside. Exam as done by Margret Barfield MD, [facility]ance Cutter. Results & Data Vital Signs (Past 12 Hours) Vital Signs Temp Pulse Pulse Resp BP BP Pulse Ox 12/28/18 19:36 73 22 192/97 H 99 12/28/18 18:46 70 18 194/81 H 100 12/28/18 16:53 68 68 15 163/104 H 100 12/28/18 15:56 84 20 190/89 H 91 12/28/18 15:52 94 12/28/18 14:52 36.7 C 67 18 183/79 H 90 Laboratory Results 12/28/18 12/28/18 12/28/18 Range/Units 19:45 15:14 15:14 WBC 8.56 (4.8-10.8) K/uL RBC 3.64 L (4.2-5.4) M/uL Hgb 11.5 L (12.0-16.0) g/dL Hct 37.1 (37-47) % MCV 101.9 H (80-100) fL MCH 31.6 (25-34) pg MCHC 31.0 L (32-36) g/dL RDW Std Deviation 53.1 H (36.4-46.3) fL RDW Coeff of Jared 14.2 (11.5-14.5) % Plt Count 193 (130-400) K/uL MPV 10.0 (7.4-10.4) fL Immature Gran % (Auto) 0.6 % Neut % (Auto) 73.3 % Lymph % (Auto) 16.6 % Mccreary % (Auto) 7.5 % Eos % (Auto) 1.4 % Baso % (Auto) 0.6 % Immature Gran # (Auto) 0.05 H (0.00-0.02) K/uL Neut # (Auto) 6.28 (1.4-6.5) K/uL Lymph # (Auto) 1.42 (1.2-3.4) K/uL Mccreary # (Auto) 0.64 H (0.11-0.59) K/uL Eos # (Auto) 0.12 (0-0.5) K/uL Baso # (Auto) 0.05 (0-0.2) K/uL ESR 67 H (0-21) mm/hr ABG pH 7.38 (7.35-7.45) ABG pCO2 50 H (35-46) mmHg ABG pO2 82 (80-95) mm/Hg ABG HCO3 29 H (19-24) mmol/L ABG O2 Saturation 95.6 H (90-95) % ABG Base Excess 2.7 H (-9-1.8) mEq/L Yemi Test Pos (Pos) Barometric Pressure 732.8 mm/Hg Oxygen Given 5L Sodium (136-145) mmol/L Potassium (3.5-5.1) mmol/L Chloride (98-107) mmol/L Carbon Dioxide (21-32) mmol/L Anion Gap (3-11) BUN (7-18) mg/dl Creatinine (0.6-1.2) mg/dl Est Cr Clr Drug Dosing ml/min Est GFR ( Amer) Est GFR (Non-Af Amer) BUN/Creatinine Ratio (10-20) Glucose (70-99) mg/dl Calcium (8.5-10.1) mg/dl Total Bilirubin (0.2-1) mg/dl AST (15-37) U/L ALT (12-78) U/L Alkaline Phosphatase (45-117) U/L Troponin I (0-0.045) ng/ml Total Protein (6.4-8.2) gm/dl Albumin (3.4-5.0) gm/dl Globulin (2.5-4.0) gm/dl Albumin/Globulin Ratio (0.9-2) Lipase (73-393) U/L 12/28/18 Range/Units 15:14 WBC (4.8-10.8) K/uL RBC (4.2-5.4) M/uL Hgb (12.0-16.0) g/dL Hct (37-47) % MCV (80-100) fL MCH (25-34) pg MCHC (32-36) g/dL RDW Std Deviation (36.4-46.3) fL RDW Coeff of Jared (11.5-14.5) % Plt Count (130-400) K/uL MPV (7.4-10.4) fL Immature Gran % (Auto) % Neut % (Auto) % Lymph % (Auto) % Mccreary % (Auto) % Eos % (Auto) % Baso % (Auto) % Immature Gran # (Auto) (0.00-0.02) K/uL Neut # (Auto) (1.4-6.5) K/uL Lymph # (Auto) (1.2-3.4) K/uL Mccreary # (Auto) (0.11-0.59) K/uL Eos # (Auto) (0-0.5) K/uL Baso # (Auto) (0-0.2) K/uL ESR (0-21) mm/hr ABG pH (7.35-7.45) ABG pCO2 (35-46) mmHg ABG pO2 (80-95) mm/Hg ABG HCO3 (19-24) mmol/L ABG O2 Saturation (90-95) % ABG Base Excess (-9-1.8) mEq/L Yemi Test (Pos) Barometric Pressure mm/Hg Oxygen Given Sodium 136 (136-145) mmol/L Potassium 4.8 (3.5-5.1) mmol/L Chloride 99 (98-107) mmol/L Carbon Dioxide 32 (21-32) mmol/L Anion Gap 5.0 (3-11) BUN 28 H (7-18) mg/dl Creatinine 5.45 H* (0.6-1.2) mg/dl Est Cr Clr Drug Dosing 10.1 ml/min Est GFR ( Amer) 8.3 Est GFR (Non-Af Amer) 7.2 BUN/Creatinine Ratio 5.3 L (10-20) Glucose 178 H (70-99) mg/dl Calcium 9.2 (8.5-10.1) mg/dl Total Bilirubin 0.3 (0.2-1) mg/dl AST 22 (15-37) U/L ALT 20 (12-78) U/L Alkaline Phosphatase 122 H (45-117) U/L Troponin I 0.139 H* (0-0.045) ng/ml Total Protein 8.5 H (6.4-8.2) gm/dl Albumin 3.8 (3.4-5.0) gm/dl Globulin 4.7 H (2.5-4.0) gm/dl Albumin/Globulin Ratio 0.8 L (0.9-2) Lipase 179 (73-393) U/L Supervising Physician Co-Signing Physician Notes 73 y/o F Hx HTN, HLD, DM II, TASH - noncompliant with CPAP, chronic trop elevation, ESRD/HD. Presents with abdominal pain, intractable nausea and vomiting in addition to hypoxia. She does require 02 at night normally but not while awake. She is due for dialysis AM. It does not appear that she is volume overloaded at the time of admission. OE: Obese, elderly F, AAO x 3 - lethargic and appears very uncomfortable S1,2 R CTAB Mild tenderness to palpation of the upper abdomen - abdomen is soft No CCE No deficits P: Intractable vomiting of unclear etiology - may be gastritis or gastroparesis - ischemic bowel is also possible and a lactic is pending. We may need a surgery or GI consult if this does not resolve - bowel rest, IVF, antiemetics and analgesics provided Reg her hypoxia - 02 protocol provided - watch for sign of aspiration related to vomiting ESRD - is due for dialysis AM Elevated trop - near baseline - cont statin, ASA, B ramesh- no clear anginal symptoms although N/V is always possible as an equivalent - trend trop - if rising address further DM - SS provided TASH - does not tolerate PG Care Time/CCT Total # of Minutes Spent Total Time Spent with Patient: Total time spent is greater than 50% in coordination of care (as documented) at patient's floor/unit and/or counseling patient: Resident Activity Tracking Resident Involvement: Resident Care Provided Care Provided: Adult Hospital Medicine (1) Vomiting Nausea presence: unspecified Vomiting Intractability: unspecified Vomiting type: unspecified Qualified Code(s): R11.10 - Vomiting, unspecified
[2018-12-28 20:01] LABS: Base Excess ABG 2.7 mEq/L (-9-1.8); HCO3 ABG 29 mmol/L (19-24); Oxygen Saturation ABG 95.6 % (90-95); PCO2 ABG 50 mmHg (35-46); PO2 ABG 82 mm/Hg (80-95); pH ABG 7.38 (7.35-7.45)
[2018-12-28 20:02] LABS: Allen Test Pos (Pos)
[2018-12-28] MEDS ORDERED: HYDROmorphone INJ 0.5 MG/0.5 ML SYR IV STA (20:09)
[2018-12-28] MEDS ORDERED: HYDROmorphone INJ 0.5 MG/0.5 ML SYR ONE (20:25)
--- NOTE | 2018-12-28 20:34 | Emergency Department Note ---
Entered by Manju Miles acting as a scribe for History of Present Illness General Chief complaint: Abdominal Pain Stated complaint: VOMITING, ABDOMINAL PAIN Source: patient History of Present Illness Onset (ago): hour(s) greater than 10 (14) Location: abdomen (epigastric) Radiation: back Severity: similar to prior episodes Pain Consistency: + other (episode) Maximum Pain Intensity: 8 Quality: + burning, + aching and + dull Associated symptoms: + nausea/vomiting and + other (+infrequent urination; - black/bloody stool; ); no chest pain, no fever/chills and no shortness of breath The patient is a 73 year old female who presents to the Emergency Room with complaints of an episode of epigastric abdominal pain that began approximately 14 hours ago. The patient describes the pain as burning and as a dull ache, and she notes the pain radiates to her back. The patient also notes symptoms of nausea, and the patient reports she threw up several times today. The patient states that she has not been able to keep anything down today as well. The patient denies chest pain or shortness of breath, but she notes she's on oxygen at night. The patient denies black/bloody stool or a fever. The patient notes she has not urinated much recently. 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 The patient also reports that Zofran has helped similar symptoms in the past. The patient states her last dialysis treatment was yesterday and her next appointment is tomorrow. Home Medications Home Medications Medication Instructions Recorded Confirmed Type ProRenal QD 1 tab PO QDL 06/16/18 12/28/18 History aspirin 81 mg PO QAM 06/16/18 12/28/18 History calcium acetate 1,334 mg PO TIDM 06/16/18 12/28/18 History carvedilol 12.5 mg PO BID 06/16/18 12/28/18 History citalopram 20 mg PO HS 06/16/18 12/28/18 History levothyroxine 100 mcg PO HS 06/16/18 12/28/18 History calcium acetate 667 mg PO UD 07/26/18 12/28/18 History atorvastatin 20 mg tablet 20 mg PO HS #90 tab 11/11/18 12/28/18 Rx hydralazine 25 mg tablet 25 mg PO TID 90 Days #270 tab 11/11/18 12/28/18 Rx pantoprazole 40 mg tablet,delayed 40 mg PO BID 90 Days #180 tab 11/11/18 12/28/18 Rx release gabapentin 300 mg capsule 300 mg PO 3XWK #42 cap 12/20/18 12/28/18 History magnesium 400 mg (as magnesium 400 mg PO QAM cap 12/20/18 12/28/18 History oxide) capsule albuterol sulfate HFA 90 2 puffs INHALATION .INHALE 2 PUFFS 12/21/18 12/28/18 History mcg/actuation aerosol inhaler EVERY #1 gm gabapentin 300 mg PO HS 12/28/18 12/28/18 History insulin detemir U-100 20 unit SUBCUT BID 12/28/18 12/28/18 History Allergies Allergy/AdvReac Type Severity Reaction Status Date / Time lisinopril AdvReac Intermediate cough Verified 12/28/18 15:33 Past Med/Surg History Medical History Depression with anxiety (Acute) Diabetic retinopathy (Acute) Dyslipidemia (Acute) Dysphagia (Acute) Epigastric pain (Acute) GERD without esophagitis (Acute) Hypomagnesemia (Acute) Hypotension (Acute) Insomnia (Acute) Joint pain, knee (Acute) Macular puckering, bilateral (Acute) Obstructive sleep apnea (Acute) Otalgia (Acute) Panniculitis (Acute) Paresthesias (Acute) Polyarthritis (Acute) Proteinuria (Acute) Stage 4 chronic kidney disease (Acute) Tubular adenoma of colon (Acute) 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 (Acute) Vitamin D deficiency (Acute) Chronic diastolic heart failure Hypothyroidism Coronary artery disease UTI (urinary tract infection) Anemia Elevated troponin COPD (chronic obstructive pulmonary disease) Diabetes mellitus Diabetes Dehydration (Acute) Chronic kidney disease (Chronic) Arthritis (Chronic) 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) Depression (Chronic) End stage renal disease History of thrombophlebitis (Resolved) Hypertension (Acute) Obesity Diabetes Surgical History H/O: hysterectomy (Resolved) S/P arteriovenous (AV) fistula creation S/P hysterectomy S/P rotator cuff repair Family History Mother Leukemia Cerebral aneurysm Hypertension Anxiety Diabetes Grandmother Hypertension Father Osteoarthritis Diabetes Sister Diabetes Myocardial infarction Brother Myocardial infarction Other No significant family history Social History Preferred Language: Mohawk Communication Ability: Effective Beliefs That Will Affect Care: None Current Living Situation: Spouse Feels Safe at Home: Yes Smoking Status: Never smoker Second Hand Exposure: Yes ( is former smoker) Hx Alcohol Use: Yes Hx Substance Use: No Review of Systems See HPI for pertinent positives & negatives. and A total of 10 systems reviewed and were otherwise negative Physical Exam Vital Signs Vital Signs - 24 hr 12/28/18 14:52 12/28/18 15:52 12/28/18 15:56 Temperature 36.7 C Temperature Source Oral Sepsis Recent Fever Within 48 Hours No Sepsis Action Taken by Nursing No Action Required Pulse Rate 67 Pulse Rate [Apical] 84 Respiratory Rate 18 20 Respiratory Effort / Characteristics Blood Pressure 183/79 H Blood Pressure [Left Arm] 190/89 H Blood Pressure Mean 113 Blood Pressure Mean [Left Arm] 122 Blood Pressure Position [Left Arm] Pulse Oximetry 90 94 91 Oxygen Delivery Method Room Air Room Air Room Air Oxygen Flow Rate 12/28/18 16:53 12/28/18 18:46 12/28/18 19:36 Temperature Temperature Source Sepsis Recent Fever Within 48 Hours Sepsis Action Taken by Nursing Pulse Rate 68 Pulse Rate [Apical] 68 70 73 Respiratory Rate 15 18 22 Respiratory Effort / Characteristics Spontaneous Blood Pressure Blood Pressure [Left Arm] 163/104 H 194/81 H 192/97 H Blood Pressure Mean Blood Pressure Mean [Left Arm] 123 118 128 Blood Pressure Position [Left Arm] Lying Pulse Oximetry 100 100 99 Oxygen Delivery Method Non-rebreather Oxymask Oxymask Oxygen Flow Rate 12 10 5 Constitutional: Vital signs reviewed. Eyes: Pupils are equal round reactive to light. Conjunctiva are noninjected. ENT: Pharynx is clear without erythema or exudate. Mucous membranes are dry. Neck supple without meningeal signs. Respiratory: Clear to auscultation bilaterally. Breath sounds are equal bilaterally. Cardiovascular: Regular rate and rhythm. No rubs or gallops. GI: Soft, nondistended and mild epigastric tenderness, no guarding. Bowel sounds are present. Musculoskeletal: No peripheral edema. No lower extremity tenderness. AV fistula with palpable thrill to right forearm. Integumentary: No cyanosis. Neurological: The patient is awake and alert. No focal deficits. Psychiatric: Normal affect. Course 1525: Past medical records reviewed. The patient was evaluated in room A10. A complete history and physical exam was performed. 1702: The patient went to x-ray and experienced dizziness and almost syncope. The patient's pulse oximeter dropped to 60s. The patient is currently drowsy. I ordered a repeat ECG which showed normal sinus rhythm of rate 72, no ST elevation, no PVC (indication: hypoxia). I recommend CT of chest and abdomen based on low oxygen to rule out pulmonary embolism. She is agreeable to the plan. 1749: The patient's IV blew and we were unable to perform angiogarm. We were unable to get a large bore IV and would now rather do a non-contrast study. The patient states she has no epigastric discomfort after receiving NG. 1751: [facility] Trujillo will further evaluate the patient. 1818: I reevaluated the patient. The patient is feeling better overall but she is hypertensive. 1827: I let the patient know of the results of her CT scan. Reevaluation(s) Reevaluation #1: [facility] Trujillo will further evaluate the patient. Time: 17:51 Administered Medications Ioversol (Optiray 320 125ml) 121 ml IV ONCE PRN PRN Reason: Interaction Checking Stop: 01/01/19 17:25 Last Admin: 12/28/18 17:26 Dose: 121 ml Documented by: [id number] Discontinued Medications Hydromorphone HCl (Dilaudid) Confirm Administered Dose 0.5 mg .ROUTE .STK-MED ONE Stop: 12/28/18 20:26 Last Admin: 12/28/18 20:26 Dose: 0.5 mg Documented by: [id number] Sodium Chloride (Nss 1000ml) 250 mls @ 999 mls/hr IV .Q16M ONE Stop: 12/28/18 15:47 Last Infusion: 12/28/18 16:17 Dose: 0 mls/hr Documented by: [id number] Admin: 12/28/18 15:51 Dose: 999 mls/hr Documented by: [id number] Promethazine HCl (Phenergan) 12.5 mg in 50.5 mls @ 202 mls/hr IV NOW STA Stop: 12/28/18 16:34 Last Admin: 12/28/18 16:28 Dose: 202 mls/hr Documented by: [id number] Nitroglycerin (Nitro-Bid 2%) 0.5 inch EXT NOW ONE Stop: 12/28/18 16:21 Last Admin: 12/28/18 16:28 Dose: 0.5 inch Documented by: [id number] Ondansetron HCl (Zofran) 4 mg IV NOW STA Stop: 12/28/18 15:33 Last Admin: 12/28/18 15:51 Dose: 4 mg Documented by: [id number] Medical Decision Making Differential Diagnosis Differential diagnoses include gastritis, esophagitis, GERD, dehydration, electrolyte imbalance, obstruction, amongst others. Medical Records Attestation: I reviewed the patient's medical records. The patient was seen here in July for vomiting, abdominal pain, and chest pain. She was discharged home after evaluation. Home Medications Current Medication List: was personally reviewed by me Laboratory Data Attestation: I reviewed the patient's lab results. Result diagrams: 12/28/18 15:14 12/28/18 15:14 Lab Results 12/28/18 12/28/18 12/28/18 Range/Units 15:14 15:14 15:14 WBC 8.56 (4.8-10.8) K/uL RBC 3.64 L (4.2-5.4) M/uL Hgb 11.5 L (12.0-16.0) g/dL Hct 37.1 (37-47) % MCV 101.9 H (80-100) fL MCH 31.6 (25-34) pg MCHC 31.0 L (32-36) g/dL RDW Std Deviation 53.1 H (36.4-46.3) fL RDW Coeff of Jared 14.2 (11.5-14.5) % Plt Count 193 (130-400) K/uL MPV 10.0 (7.4-10.4) fL Immature Gran % (Auto) 0.6 % Neut % (Auto) 73.3 % Lymph % (Auto) 16.6 % [place] % (Auto) 7.5 % Eos % (Auto) 1.4 % Baso % (Auto) 0.6 % Immature Gran # (Auto) 0.05 H (0.00-0.02) K/uL Neut # (Auto) 6.28 (1.4-6.5) K/uL Lymph # (Auto) 1.42 (1.2-3.4) K/uL [place] # (Auto) 0.64 H (0.11-0.59) K/uL Eos # (Auto) 0.12 (0-0.5) K/uL Baso # (Auto) 0.05 (0-0.2) K/uL ESR 67 H (0-21) mm/hr ABG pH (7.35-7.45) ABG pCO2 (35-46) mmHg ABG pO2 (80-95) mm/Hg ABG HCO3 (19-24) mmol/L ABG O2 Saturation (90-95) % ABG Base Excess (-9-1.8) mEq/L Yemi Test (Pos) Barometric Pressure mm/Hg Oxygen Given Sodium 136 (136-145) mmol/L Potassium 4.8 (3.5-5.1) mmol/L Chloride 99 (98-107) mmol/L Carbon Dioxide 32 (21-32) mmol/L Anion Gap 5.0 (3-11) BUN 28 H (7-18) mg/dl Creatinine 5.45 H* (0.6-1.2) mg/dl Est Cr Clr Drug Dosing 10.1 ml/min Est GFR ( Amer) 8.3 Est GFR (Non-Af Amer) 7.2 BUN/Creatinine Ratio 5.3 L (10-20) Glucose 178 H (70-99) mg/dl Calcium 9.2 (8.5-10.1) mg/dl Total Bilirubin 0.3 (0.2-1) mg/dl AST 22 (15-37) U/L ALT 20 (12-78) U/L Alkaline Phosphatase 122 H (45-117) U/L Troponin I 0.139 H* (0-0.045) ng/ml Total Protein 8.5 H (6.4-8.2) gm/dl Albumin 3.8 (3.4-5.0) gm/dl Globulin 4.7 H (2.5-4.0) gm/dl Albumin/Globulin Ratio 0.8 L (0.9-2) Lipase 179 (73-393) U/L 12/28/18 Range/Units 19:45 WBC (4.8-10.8) K/uL RBC (4.2-5.4) M/uL Hgb (12.0-16.0) g/dL Hct (37-47) % MCV (80-100) fL MCH (25-34) pg MCHC (32-36) g/dL RDW Std Deviation (36.4-46.3) fL RDW Coeff of Jared (11.5-14.5) % Plt Count (130-400) K/uL MPV (7.4-10.4) fL Immature Gran % (Auto) % Neut % (Auto) % Lymph % (Auto) % [place] % (Auto) % Eos % (Auto) % Baso % (Auto) % Immature Gran # (Auto) (0.00-0.02) K/uL Neut # (Auto) (1.4-6.5) K/uL Lymph # (Auto) (1.2-3.4) K/uL [place] # (Auto) (0.11-0.59) K/uL Eos # (Auto) (0-0.5) K/uL Baso # (Auto) (0-0.2) K/uL ESR (0-21) mm/hr ABG pH 7.38 (7.35-7.45) ABG pCO2 50 H (35-46) mmHg ABG pO2 82 (80-95) mm/Hg ABG HCO3 29 H (19-24) mmol/L ABG O2 Saturation 95.6 H (90-95) % ABG Base Excess 2.7 H (-9-1.8) mEq/L Yemi Test Pos (Pos) Barometric Pressure 732.8 mm/Hg Oxygen Given 5L Sodium (136-145) mmol/L Potassium (3.5-5.1) mmol/L Chloride (98-107) mmol/L Carbon Dioxide (21-32) mmol/L Anion Gap (3-11) BUN (7-18) mg/dl Creatinine (0.6-1.2) mg/dl Est Cr Clr Drug Dosing ml/min Est GFR ( Amer) Est GFR (Non-Af Amer) BUN/Creatinine Ratio (10-20) Glucose (70-99) mg/dl Calcium (8.5-10.1) mg/dl Total Bilirubin (0.2-1) mg/dl AST (15-37) U/L ALT (12-78) U/L Alkaline Phosphatase (45-117) U/L Troponin I (0-0.045) ng/ml Total Protein (6.4-8.2) gm/dl Albumin (3.4-5.0) gm/dl Globulin (2.5-4.0) gm/dl Albumin/Globulin Ratio (0.9-2) Lipase (73-393) U/L Imaging Data Radiologist's Impression: Radiology results as stated below per my review and the radiologist's interpretation: XR chest 1V not portable CLINICAL HISTORY: vomitting eval for obstruction nausea COMPARISON STUDY: 07/26/2018 FINDINGS: Minimal infiltrative process left base. Lungs otherwise appear clear. Diaphragms are smooth. IMPRESSION: Minimal parenchymal infiltrate/atelectasis left base. The above report was generated using voice recognition software. It may contain grammatical, syntax or spelling errors. Nausea Electronically signed by: Eder Moss M.D. 12/28/2018 5:[address] SCAN OF THE CHEST, ABDOMEN, AND PELVIS WITHOUT IV CONTRAST CLINICAL HISTORY: Hypoxia. Epigastric abdominal pain. COMPARISON STUDY: Chest CT dated 02/25/2017. Abdominal CT dated 10/17/2015. Chest x-ray dated 12/28/2018. TECHNIQUE: CT scan of the chest, abdomen, and pelvis was performed from the thoracic inlet to the proximal femora. Images are reviewed in the axial, sagittal, and coronal planes. IV contrast was not administered as per the referring clinician. Note that the examination was performed in significantly suboptimal fashion without IV contrast. The examination is also compromised by motion artifact. A dose lowering technique was utilized adhering to the principles of ALARA. CT DOSE: 2104.76 mGy.cm FINDINGS: CHEST: Thyroid: Imaged portions of the thyroid gland are normal in size and heterogeneous and attenuation. Thoracic aorta: There is atherosclerotic calcification of the thoracic aorta, which is normal in caliber and demonstrates bovine variant arch anatomy. Heart: The heart is enlarged and without pericardial effusion. There are scattered coronary artery calcifications. The mitral annulus is densely calcified. The pulmonary trunk is dilated measuring 3.9 cm in diameter. This suggests pulmonary artery hypertension. Lungs and pleural spaces: Evaluation of the lung parenchyma is degraded by motion artifact. There are trace pleural effusions with dependent atelectasis. Foci of scarring/atelectasis are seen bilaterally. There is no airspace consolidation seen typical for pneumonia. The trachea and central airways are clear. Mild intralobular septal thickening is observed. Mediastinum: There are subcentimeter mediastinal lymph nodes. These are not pathologically enlarged by size criteria. Karyn: Not well assessed without IV contrast. Axillae: There is no axillary lymphadenopathy. Bony thorax: The skeletal structures are osteopenic. Degenerative change and mild hyperkyphosis are noted in the thoracic spine. Arthritic change is seen in the shoulders. No lytic or blastic lesions are identified. ABDOMEN AND PELVIS: Liver: The unenhanced liver is normal in size, contour, and attenuation. There is no intrahepatic or ductal dilatation. Gallbladder: Unremarkable. Spleen: Normal in size and attenuation. Pancreas: The unenhanced pancreas is moderately atrophic and grossly unremarkable. Adrenal glands: A 2.3 cm left adrenal adenoma is unchanged. The right adrenal gl and is normal in appearance. Kidneys: The unenhanced kidneys are atrophic and without hydronephrosis. No renal calculi are identified. There is no evidence of contour deforming mass lesion. Abdominal vasculature: The abdominal aorta is normal in course and caliber noting moderate to advanced atherosclerotic calcification. Stomach and bowel: There is a moderate to large hiatal hernia. Ingested material is contained within the hiatal hernia. Postoperative change is suggested at the esophageal hiatus. The duodenum is normal in configuration. No bowel obstruction is seen. There is mild to moderate colonic diverticulosis without CT evidence of acute diverticulitis. The appendix is not identified. Peritoneum: There is no intraperitoneal free air or abdominal ascites. A fat- containing ventral hernia is seen in the pelvis. Lymphadenopathy: None. Pelvic viscera: The bladder is normal as visualized. The uterus is surgically absent. No adnexal lesion is seen. Bilateral fat-containing right inguinal hernias are noted. Skeletal structures: The skeletal structures are osteopenic. There is mild lumbosacral spondylosis. No lytic or blastic lesions are seen. IMPRESSION: 1. Suboptimal examination without IV contrast. The examination is also compromised by motion artifact. 2. Cardiomegaly. Mild intralobular septal thickening may represent a component of acute versus chronic congestion. Clinical correlation will be required. 3. There are trace pleural effusions with bibasilar atelectasis. 4. There is a moderate debris filled hiatal hernia. 5. No acute infectious or inflammatory findings are seen in the abdomen or pelvis. 6. Mild to moderate colonic diverticulosis without CT evidence of acute diverticulitis. 7. Additional findings as above. Electronically signed by: Derek Low M.D. 12/28/2018 6:20 PM ECG Data Attestation: I personally reviewed and interpreted this ECG as follows: Indication: abdominal pain (epigastric) Rate (beats per minute): 75 Rhythm: normal sinus Findings: + other (Q wave in lead 3 ); no ST elevation Comparison ECG Date: from (07/26/18) Change: no significant change Blood Pressure Blood Pressure Findings: Elevated blood pressure Blood Pressure Disposition: further management by hospitalist JACQUES Salinas I did evaluate the patient as noted above. The patient is presenting with epigastric pain and vomiting. She states she has had similar episodes in the past after she had her [place] donut removed 5 years ago. IV access was established. The patient was placed on a continuous cardiac monitor technician. I did treat the patient with Zofran and normal saline IV. She still had nausea and was given Phenergan IV. I also gave her nitroglycerin paste for her epigastric discomfort. I did order and personally review the patient's 12-lead EKG as described above. Twelve-lead EKG does not demonstrate any ST elevations. She has a Q wave in lead III. I did order and personally reviewed the images of the patient's chest x-ray as described above. There is no evidence of pneumothorax. There was some question of infiltrate on the left base. While in x-ray the patient had a near syncopal episode. She was standing to get the upright abdominal series and nearly passed out. Her nurse stated that her pulse ox was 68. She did not pass out completely. She was immediately brought back to the emergency department. She was given supplemental oxygen via nonrebreather mask. I did repeat a twelve-lead EKG which per my interpretation shows no acute ischemia. I did order and review the patient's blood work as noted in the electronic medical record. Her creatinine is 5 but her potassium is normal. Her troponin is elevated at 0.1. She has had elevated troponins in the past and denies any chest pain. She was noted at one point to have pericarditis by the drapery sewer hand. Because of her hypoxemia I did order a CT of the chest, abdomen pelvis. I did review the images myself as well as the radiology report as described above. Her IV unfortunately blue and another IV was difficult to obtain and so the studies were done without contrast. She has no obvious saddle embolism or large PE visible on noncontrast CT. There is no acute intra- abdominal process. No pneumonia is noted. I did reassess the patient multiple times. She stated that she was feeling better. Her epigastric pain was resolved. I did discuss the test results with her and recommended ho spitalization for further evaluation. I did discuss case with hospitalist and caser. Impression & Plan Hypoxemia, End-stage renal disease (ESRD), Elevated troponin, Abdominal pain, epigastric, Vomiting, Hernia, hiatal, Near syncope, Poorly-controlled hypertension Critical Care Time Critical Care Time: Yes Total Critical Care Time: 40 I have personally spent approximately 40 minutes of critical care time in the direct management of this patient. This includes bedside care, interpretation of diagnostic studies, and testing, discussion with consultants, patient, and family members, and other required patient management activities. This 40 minutes is in excess of all separately billable procedures. Discharge Plan Visit Data Chief Complaint: Abdominal Pain Stated Complaint: VOMITING, ABDOMINAL PAIN ED Provider: Savage Mora Discharge Problem: Hypoxemia, End-stage renal disease (ESRD), Elevated troponin, Abdominal pain, epigastric, Vomiting, Hernia, hiatal, Near syncope, Poorly-controlled hypertension Patient Disposition: Being Evaluated by Hospitalist Forms Stand Alone Forms: Call Back Authorization, [facility] Prescriptions Prescriptions: No Action atorvastatin 20 mg tablet 20 mg PO HS Qty: 90 RF: 0 hydralazine 25 mg tablet 25 mg PO TID 90 Days Qty: 270 RF: 0 pantoprazole 40 mg tablet,delayed release (DR/EC) 40 mg PO BID 90 Days Qty: 180 RF: 0 gabapentin 300 mg capsule 300 mg PO 3XWK Qty: 42 RF: 0 magnesium oxide 400 mg magnesium capsule 400 mg PO QAM RF: 0 albuterol sulfate 90 mcg/actuation HFA aerosol inhaler 2 puffs inhalation .INHALE 2 PUFFS EVERY Qty: 1 RF: 0 carvedilol 12.5 mg tablet 12.5 mg PO BID RF: 0 aspirin 81 mg Tablet,Delayed Release (Dr/Ec) 81 mg PO QAM RF: 0 levothyroxine 100 mcg tablet 100 mcg PO HS RF: 0 calcium acetate 667 mg capsule 1,334 mg PO TIDM RF: 0 ProRenal QD 400-500 mcg-unit Capsule 1 tab PO QDL RF: 0 citalopram 20 mg Tablet 20 mg PO HS RF: 0 calcium acetate 667 mg capsule 667 mg PO UD RF: 0 gabapentin 300 mg Capsule 300 mg PO HS RF: 0 insulin detemir U-100 100 unit/mL (3 mL) insulin pen 20 unit subcut BID RF: 0 Referrals Referrals: Julito Burt MD [Primary Care Provider] - Discharge Problem: Vomiting Qualifiers: Vomiting type: unspecified Vomiting Intractability: unspecified Nausea presence: unspecified Qualified Code(s): R11.10 - Vomiting, unspecified The scribe's documentation has been prepared under my direction and personally reviewed by me in its entirety. I confirm that the note above accurately reflects all work, treatment, procedures, and medical decision making performed by me.
[2018-12-28] MEDS ORDERED: ALUMINUM/MAGNESIUM SUSP 30 ML UDC PO PRN (21:42)
[2018-12-28] MEDS ORDERED: GLUCOSE 10 TABS/TUBE PO PRN (21:42)
[2018-12-28] MEDS ORDERED: GLUCOSE 40% GEL 15 GM TUBE PO PRN (21:42)
[2018-12-28] MEDS ORDERED: CARBOHYDRATES FOR HYPOGLYCEMIA PO PRN (21:42)
[2018-12-28] MEDS ORDERED: MAGNESIUM HYDROXIDE SUSP 30 ML UDC PO PRN (21:42)
[2018-12-28] MEDS ORDERED: POLYETHYLENE (MIRALAX) 17 GM PACK PO PRN (21:42)
[2018-12-28] MEDS ORDERED: DEXTROSE 50% 50 ML SYRINGE IV PRN (21:42)
[2018-12-28] MEDS ORDERED: ALBUT/IPRATROP 3MG/0.5MG NEB 3 ML VIAL NEB PRN (21:42)
[2018-12-28] MEDS ORDERED: GLUCAGON FOR INJ 1 MG VIAL SQ PRN (21:42)
[2018-12-28] MEDS ORDERED: ACETAMINOPHEN 1,000 MG/100 ML VIAL IV PRN (21:42)
[2018-12-28] MEDS: PANTOprazole 40 MG in SYRINGE 0 ML IV SCH (22:01)
[2018-12-28] MEDS: FAMOTIDINE 20 MG in SYRINGE 3 ML IV SCH (22:01)
[2018-12-28] MEDS: ONDANSETRON INJ 2 MG/ML 2 ML VIAL IV PRN (22:19)
[2018-12-28] MEDS: HydrALAZINE HCL 20 MG/ML VIAL IV PRN (22:19)
[2018-12-28] MEDS ORDERED: INSULIN ASPART 100 UNITS/ML 3 ML PEN SC SCH (22:30)
[2018-12-28 22:31] LABS: Prothrombin Time 10.3 Seconds (9.0-12.0)
[2018-12-28] MEDS: SODIUM CHLORIDE 0.9% 1000ML 1,000 ML IV SCH (22:39)
[2018-12-28] MEDS: GABAPENTIN 300 MG CAP PO SCH (23:19)
[2018-12-28] MEDS: CARVEDILOL 12.5 MG TAB PO SCH (23:19)
[2018-12-28] MEDS: LEVOTHYROXINE SODIUM 100 MCG TABLET PO SCH (23:19)
[2018-12-28] MEDS: CITALOPRAM 20 MG TAB PO SCH (23:19)
[2018-12-28] MEDS: SUCRALFATE 1 GM/10 ML UDC PO SCH (23:19)
[2018-12-28 23:22] LABS: Beta-Hydroxybutyrate 7.31 mg/dl (0.2-2.81)
[2018-12-28] MEDS ORDERED: PROMETHAZINE HCL 12.5 MG in SODIUM CHLORIDE 0.9% 50 ML IV STA (23:31)
[2018-12-28] MEDS ORDERED: INSULIN ASPART 100 UNITS/ML 3 ML PEN SC STA (23:32)
[2018-12-29] MEDS ORDERED: LANTUS PER UNIT CHARGE SQ STA (02:40)
[2018-12-29] MEDS ORDERED: INSULIN DETEMIR FLEXPEN/FLEX TOUCH 100 UNITS/ML 3ML SC STA (03:34)
[2018-12-29] MEDS: HydrALAZINE HCL 20 MG/ML VIAL IV PRN ×2 (03:50→15:12)
[2018-12-29] MEDS: HYDROmorphone INJ 0.5 MG/0.5 ML SYR IV PRN ×2 (03:50→22:52)
[2018-12-29 04:59] LABS: BUN Creatinine Ratio 6.4 (10-20); Creatinine Clr Calc Pharmacy 9.6 ml/min; Est GFR (African American) 7.6; Est GFR (Non-African American) 6.5; Potassium 6.3 mmol/L (3.5-5.1); Troponin I 2.74 ng/ml (0-0.045)
[2018-12-29 05:29] LABS: Beta-Hydroxybutyrate 6.09 mg/dl (0.2-2.81)
[2018-12-29] MEDS ORDERED: INSULIN ASPART 100 UNITS/ML 3 ML PEN SC SCH (06:00)
[2018-12-29] MEDS: INSULIN ASPART 100 UNITS/ML 3 ML PEN SC SCH ×3 (06:28→18:48)
[2018-12-29] MEDS: HEPARIN SOD 5,000 UNIT/0.5 ML VIAL SQ SCH ×3 (06:29→21:48)
--- NOTE | 2018-12-29 06:39 | Family Medicine Progress Note ---
Date of Service December 29, 2018 Assessment & Plan (1) End-stage renal disease (ESRD): Nausea/vomiting/abdominal pain/dehydration Appears completely resolved, Some concern for ischemic bowel with supposed severity admission and elevations in cardiac enzymes We will continue to monitor her for abdominal pain, nausea, and vomiting currently on ondansetron 4 mg every 4 hours promethazine 12.5 mg every 4 hours and Dilaudid as needed for pain Hyperkalemia - K of 6.3 End Stage Renal Disease Acute dehydration sec to vomiting. EKG showing no peak T waves or MD prolongation or wide QRS Patient is scheduled for dialysis today night team consulted nephrology for stat dialysis due to critical lab results Will not plan on doing any temporizing measures for potassium as this will just increase rebound hyperkalemia post dialysis Elevated Troponin Chronically elevated troponin secondary to coronary artery disease and chronic renal disease New spike this admission, .139 on presentation up from baseline of .084 then jumped up further to 2.7at 04:00 12/29 Possibly demand ischemia from dehydration secondary to vomiting, but vomiting, nausea, and abdominal pain could be presenting symptom for new MO. Abnormal EKG but does not appear to be indicative of acute ischemia by my read. Consulted cardiology and ordering echo today. On Beta ramesh, ASA 81 and statin Hypoxemia Patient on 2 L nasal cannula, and speaking to the daughter it appears that she wears her oxygen at home sporadically but is supposed to wear 2 3 L all the time. We will hold albuterol inhalers at this time as patient is not wheezing and do not want to affect intravascular potassium concentration No concerns with breathing or actuation status at this time patient is a baseline Depression We will assess as mental status improves (2) Hypoxemia: (3) Elevated troponin: (4) Abdominal pain, epigastric: (5) Vomiting: (6) Depression with anxiety: (7) Dysphagia: (8) Obstructive sleep apnea: (9) Chronic diastolic heart failure: Supervising Physician Co-Signing Physician Notes Resident Physician Supervision Note: I independently interviewed and examined the patient and verified the bergeron history and physical, reviewed labs and image studies, discussed the case with the resident Dr. Harden and agree with the findings and care plan. Subjective Shirley Patrick is resting in bed comfortable. She denies any abdominal pain nausea or vomiting at this time, she tells me that she is more or less feeling herself again. She had Dilaudid recently and is quite somnolent falling asleep as we talked. Review of Systems Review of Systems: Unobtainable due to reduced consciousness Physical Exam Physical Exam: Constitutional: somnolent, no acute distress, easily arousable and able to communicate clearly. Eyes: Extraocular muscle motion intact, pupils equal round reactive to light, anicteric sclerae Neck: No masses detected no abnormalities noted Respiratory: Chest expansion symmetric lung sounds vesicular bilaterally no crackles rales appreciated nasal cannula at 2 L Cardiovascular: Heart sounds dual regular rate regular rhythm no murmurs rubs skips or gallops noted Gastrointestinal: Abdomen soft and totally nontender, no mass detected Skin: No lesions detected at this time Results & Data Vital Signs (Past 12 Hours) Vital Signs Temp Pulse Pulse Resp BP BP Pulse Ox 12/29/18 04:30 167/84 H 12/29/18 03:43 36.7 C 85 20 209/114 H 96 12/29/18 00:24 37.2 C 70 20 164/91 H 95 12/28/18 23:00 180/92 H 12/28/18 21:43 37.0 C 70 20 179/101 H 97 12/28/18 21:02 69 18 181/100 H 96 12/28/18 20:43 70 18 189/100 H 97 12/28/18 19:36 73 22 192/97 H 99 12/28/18 18:46 70 18 194/81 H 100 PG Care Time/CCT Total # of Minutes Spent Total Time Spent with Patient: Total time spent is greater than 50% in coordination of care (as documented) at patient's floor/unit and/or counseling patient: Resident Activity Tracking Resident Involvement: Resident Care Provided Care Provided: Adult Hospital Medicine (1) Vomiting Nausea presence: unspecified Vomiting Intractability: unspecified Vomiting type: unspecified Qualified Code(s): R11.10 - Vomiting, unspecified
[2018-12-29] MEDS: SODIUM CHLORIDE 0.9% 1000ML 1,000 ML IV SCH ×2 (07:43→21:50)
[2018-12-29] MEDS: ASPIRIN 81 MG ECTAB PO SCH (07:43)
[2018-12-29] MEDS: SUCRALFATE 1 GM/10 ML UDC PO SCH ×4 (07:43→21:06)
[2018-12-29] MEDS: MAGNESIUM OXIDE 400 MG TAB PO SCH (07:44)
[2018-12-29] MEDS: CARVEDILOL 12.5 MG TAB PO SCH ×2 (07:44→21:06)
[2018-12-29] MEDS: PANTOprazole 40 MG in SYRINGE 0 ML IV SCH (07:45)
[2018-12-29] MEDS: INSULIN DETEMIR FLEXPEN/FLEX TOUCH 100 UNITS/ML 3ML SC SCH ×2 (07:46→21:48)
[2018-12-29] MEDS: FAMOTIDINE 20 MG in SYRINGE 3 ML IV SCH ×2 (07:46→21:28)
--- NOTE | 2018-12-29 09:36 | Cardiology Consultation ---
Date of Consultation December 29, 2018 Assessment & Plan (1) Elevated troponin: 2. Epigastric pain 3. ESRD on hemodialysis 4. Hypertension 5. Dyslipidemia 6. GERD, history of esophageal surgery 7. Diabetes 8. COPD, oxygen dependent Patient admitted with epigastric abdominal pain and vomiting. She also experienced chest heaviness which resolved prior to admission. Symptoms have been occurring intermittently over the past several years since having her esophageal band removed and have been attributed to a gastrointestinal etiology. She has no history of coronary artery disease but certainly has risk factors. Troponin is chronically mildly elevated and today trended up to 2.74 (baseline has been near 0.09). Her electrocardiogram demonstrates a new left bundle branch block pattern. Mild volume overload on exam but due for dialysis today. She is currently asymptomatic. There is some suspicion for ACS versus GI etiology. No indication for urgent cardiac catheterization. Recommend trending troponin. Check echo to evaluate LV function and wall motion. Continue beta ramesh, ASA and statin. Supervising Physician Co-Signing Physician Notes Patient seen and examined with Josephine, case reviewed with Josephine. Agree with above. We will trend troponins, she is currently pain-free and if her epigastric discomfort is cardiac it seemingly has resolved. History of Present Illness Reason for Consultation: Elevated troponin Attending Physician: Any Dawn MD History of Present Illness Mrs. Patrick is a 73 year old female with ESRD on hemodialysis, hypertension, dyslipidemia, type 2 diabetes, COPD on oxygen, TASH, GERD, chronically mildly elevated troponin, history of pericarditis. Patient was admitted with epigastric abdominal pain, nausea and vomiting. Her symptoms started at about 1 am yesterday morning. She describes the abdominal pain as a dull ache radiating through to her back. She continued to have frequent vomiting yesterday prior to admission. Earlier in the day Wednesday she had some chest heaviness which resolved on its own. No aggravating or alleviating factors. She has chronic shortness of breath and is oxygen dependent. She has had similar episodes of chest heaviness, epigastric pain and vomiting over the past several years since her esophageal band was removed. She currently reports feeling better. No recurrent chest heaviness and epigastric pain has resolved for the most part. She is due for dialysis today. No orthopnea or PND. Chronic lower extremity edema at baseline per patient. She has no history of coronary artery disease. An echo in May 2018 showed normal LV function and wall motion and dobutamine stress echo in 2016 was negative for ischemia. Troponin has been chronically mildly elevated. On admission troponin was 0.139 near her baseline and has trended up to 2.74 this morning. Her electrocardiogram demonstrates a left bundle branch block pattern which is new compared to prior. Social history: and lives with . No tobacco, alcohol or drug use. Allergies Allergy/AdvReac Type Severity Reaction Status Date / Time lisinopril AdvReac Intermediate cough Verified 12/28/18 15:33 Home Medications Home Medications Medication Instructions Recorded Confirmed Type ProRenal QD 1 tab PO QDL 06/16/18 12/28/18 History aspirin 81 mg PO QAM 06/16/18 12/28/18 History calcium acetate 1,334 mg PO TIDM 06/16/18 12/28/18 History carvedilol 12.5 mg PO BID 06/16/18 12/28/18 History citalopram 20 mg PO HS 06/16/18 12/28/18 History levothyroxine 100 mcg PO HS 06/16/18 12/28/18 History calcium acetate 667 mg PO UD 07/26/18 12/28/18 History atorvastatin 20 mg tablet 20 mg PO HS #90 tab 11/11/18 12/28/18 Rx hydralazine 25 mg tablet 25 mg PO TID 90 Days #270 tab 11/11/18 12/28/18 Rx pantoprazole 40 mg tablet,delayed 40 mg PO BID 90 Days #180 tab 11/11/18 12/28/18 Rx release gabapentin 300 mg capsule 300 mg PO 3XWK #42 cap 12/20/18 12/28/18 History magnesium 400 mg (as magnesium 400 mg PO QAM cap 12/20/18 12/28/18 History oxide) capsule albuterol sulfate HFA 90 2 puffs INHALATION .INHALE 2 PUFFS 12/21/18 12/28/18 History mcg/actuation aerosol inhaler EVERY #1 gm gabapentin 300 mg PO HS 12/28/18 12/28/18 History insulin detemir U-100 20 unit SUBCUT BID 12/28/18 12/28/18 History Patient History Medical History Depression with anxiety (Acute) Diabetic retinopathy (Acute) Dyslipidemia (Acute) Dysphagia (Acute) Epigastric pain (Acute) GERD without esophagitis (Acute) Hypomagnesemia (Acute) Hypotension (Acute) Insomnia (Acute) Joint pain, knee (Acute) Macular puckering, bilateral (Acute) Obstructive sleep apnea (Acute) Otalgia (Acute) Panniculitis (Acute) Paresthesias (Acute) Polyarthritis (Acute) Proteinuria (Acute) Stage 4 chronic kidney disease (Acute) Tubular adenoma of colon (Acute) 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 (Acute) Vitamin D deficiency (Acute) Chronic diastolic heart failure Hypothyroidism Coronary artery disease UTI (urinary tract infection) Anemia Elevated troponin COPD (chronic obstructive pulmonary disease) Diabetes mellitus Diabetes Dehydration (Acute) Chronic kidney disease (Chronic) Arthritis (Chronic) 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) Depression (Chronic) End stage renal disease History of thrombophlebitis (Resolved) Hypertension (Acute) Obesity Diabetes Surgical History H/O: hysterectomy (Resolved) S/P arteriovenous (AV) fistula creation S/P hysterectomy S/P rotator cuff repair Family History Mother Leukemia Cerebral aneurysm Hypertension Anxiety Diabetes Grandmother Hypertension Father Osteoarthritis Diabetes Sister Diabetes Myocardial infarction Brother Myocardial infarction Other No significant family history Social History Preferred Language: Slovenian Communication Ability: Effective Paper Products Supervisor Required: No Beliefs That Will Affect Care: None Current Living Situation: Spouse Other Information That Helps Us Care for You: No Feels Safe at Home: Yes Safety Concerns: Feels Safe At This Time Smoking Status: Never smoker Do You Dip or Chew Tobacco: No ; Second Hand Exposure: No ; Tobacco Cessation Education Requested by Patient: No Hx Alcohol Use: No Hx Substance Use: No Review of Systems Review of Systems: All systems reviewed & are unremarkable except as noted in HPI & below Physical Exam Physical Exam: General: No acute distress, comfortable. Supplemental oxygen via nasal cannula HEENT: Head is normal. PERRLA. EOMI. Sclerae anicteric. Ears, nose and throat unremarkable. Mucous membranes moist. Neck: Normal carotid upstrokes, no bruits. No appreciable JVD. Lungs: Few crackles left base, otherwise clear. Cardiac: Regular rate and rhythm. S1-S2 normal. Grade 1-2/6 systolic murmur. Abdomen: Mild epigastric tenderness to palpation. Bowel sounds normal. No mass or organomegaly. No abdominal bruit. Extremities/vascular: --Well perfused. 1+ pedal edema on the left, trace on the right. --Radial, DP and PT pulses 2+ bilaterally --Venous stasis changes bilateral lower extremities Skin: No rash or abnormal lesions. Normal turgor. Neurologic: Nonfocal Psychiatric: Affect appropriate. Alert and oriented. Results & Data Vital Signs (Past 12 Hours) Vital Signs Temp Pulse Resp BP Pulse Ox 12/29/18 09:00 168/98 H 12/29/18 07:34 36.9 C 73 15 181/99 H 97 12/29/18 04:30 167/84 H 12/29/18 03:43 36.7 C 85 20 209/114 H 96 12/29/18 00:24 37.2 C 70 20 164/91 H 95 12/28/18 23:00 180/92 H 12/28/18 21:43 37.0 C 70 20 179/101 H 97 Laboratory Results Laboratory Results - last 24 hr 12/28/18 12/28/18 12/28/18 15:14 15:14 15:14 WBC 8.56 RBC 3.64 L Hgb 11.5 L Hct 37.1 MCV 101.9 H MCH 31.6 MCHC 31.0 L RDW Std Deviation 53.1 H RDW Coeff of Jared 14.2 Plt Count 193 MPV 10.0 Immature Gran % (Auto) 0.6 Neut % (Auto) 73.3 Lymph % (Auto) 16.6 Lawrence % (Auto) 7.5 Eos % (Auto) 1.4 Baso % (Auto) 0.6 Immature Gran # (Auto) 0.05 H Neut # (Auto) 6.28 Lymph # (Auto) 1.42 Lawrence # (Auto) 0.64 H Eos # (Auto) 0.12 Baso # (Auto) 0.05 ESR 67 H PT INR ABG pH ABG pCO2 ABG pO2 ABG HCO3 ABG O2 Saturation ABG Base Excess Yemi Test Barometric Pressure Oxygen Given Sodium 136 Potassium 4.8 Chloride 99 Carbon Dioxide 32 Anion Gap 5.0 BUN 28 H Creatinine 5.45 H* Est Cr Clr Drug Dosing 10.1 Est GFR ( Amer) 8.3 Est GFR (Non-Af Amer) 7.2 BUN/Creatinine Ratio 5.3 L Glucose 178 H POC Glucose Lactate Calcium 9.2 Total Bilirubin 0.3 AST 22 ALT 20 Alkaline Phosphatase 122 H Troponin I 0.139 H* Total Protein 8.5 H Albumin 3.8 Globulin 4.7 H Albumin/Globulin Ratio 0.8 L Lipase 179 Beta-Hydroxybutyric Acd Nasal Screen MRSA (PCR) 12/28/18 12/28/18 12/28/18 15:14 19:45 22:08 WBC RBC Hgb Hct MCV MCH MCHC RDW Std Deviation RDW Coeff of Jared Plt Count MPV Immature Gran % (Auto) Neut % (Auto) Lymph % (Auto) Lawrence % (Auto) Eos % (Auto) Baso % (Auto) Immature Gran # (Auto) Neut # (Auto) Lymph # (Auto) Lawrence # (Auto) Eos # (Auto) Baso # (Auto) ESR PT 10.3 INR 1.0 ABG pH 7.38 ABG pCO2 50 H ABG pO2 82 ABG HCO3 29 H ABG O2 Saturation 95.6 H ABG Base Excess 2.7 H Yemi Test Pos Barometric Pressure 732.8 Oxygen Given 5L Sodium Potassium Chloride Carbon Dioxide Anion Gap BUN Creatinine Est Cr Clr Drug Dosing Est GFR ( Amer) Est GFR (Non-Af Amer) BUN/Creatinine Ratio Glucose POC Glucose 331 H* Lactate Calcium Total Bilirubin AST ALT Alkaline Phosphatase Troponin I Total Protein Albumin Globulin Albumin/Globulin Ratio Lipase Beta-Hydroxybutyric Acd Nasal Screen MRSA (PCR) 12/28/18 12/28/18 12/28/18 22:12 22:26 22:30 WBC RBC Hgb Hct MCV MCH MCHC RDW Std Deviation RDW Coeff of Jared Plt Count MPV Immature Gran % (Auto) Neut % (Auto) Lymph % (Auto) Lawrence % (Auto) Eos % (Auto) Baso % (Auto) Immature Gran # (Auto) Neut # (Auto) Lymph # (Auto) Lawrence # (Auto) Eos # (Auto) Baso # (Auto) ESR PT INR ABG pH ABG pCO2 ABG pO2 ABG HCO3 ABG O2 Saturation ABG Base Excess Yemi Test Barometric Pressure Oxygen Given Sodium Potassium Chloride Carbon Dioxide Anion Gap BUN Creatinine Est Cr Clr Drug Dosing Est GFR ( Amer) Est GFR (Non-Af Amer) BUN/Creatinine Ratio Glucose POC Glucose 287 H 319 H* Lactate Calcium Total Bilirubin AST ALT Alkaline Phosphatase Troponin I Total Protein Albumin Globulin Albumin/Globulin Ratio Lipase Beta-Hydroxybutyric Acd Nasal Screen MRSA (PCR) Negative 12/28/18 12/28/18 12/29/18 22:39 22:39 01:43 WBC RBC Hgb Hct MCV MCH MCHC RDW Std Deviation RDW Coeff of Jared Plt Count MPV Immature Gran % (Auto) Neut % (Auto) Lymph % (Auto) Lawrence % (Auto) Eos % (Auto) Baso % (Auto) Immature Gran # (Auto) Neut # (Auto) Lymph # (Auto) Lawrence # (Auto) Eos # (Auto) Baso # (Auto) ESR PT INR ABG pH ABG pCO2 ABG pO2 ABG HCO3 ABG O2 Saturation ABG Base Excess Yemi Test Barometric Pressure Oxygen Given Sodium Potassium Chloride Carbon Dioxide Anion Gap BUN Creatinine Est Cr Clr Drug Dosing Est GFR ( Amer) Est GFR (Non-Af Amer) BUN/Creatinine Ratio Glucose 332 H* POC Glucose 323 H* Lactate 0.9 Calcium Total Bilirubin AST ALT Alkaline Phosphatase Troponin I Total Protein Albumin Globulin Albumin/Globulin Ratio Lipase Beta-Hydroxybutyric Acd 7.31 H Nasal Screen MRSA (PCR) 12/29/18 12/29/18 12/29/18 01:44 04:10 06:13 WBC RBC Hgb Hct MCV MCH MCHC RDW Std Deviation RDW Coeff of Jared Plt Count MPV Immature Gran % (Auto) Neut % (Auto) Lymph % (Auto) Lawrence % (Auto) Eos % (Auto) Baso % (Auto) Immature Gran # (Auto) Neut # (Auto) Lymph # (Auto) Lawrence # (Auto) Eos # (Auto) Baso # (Auto) ESR PT INR ABG pH ABG pCO2 ABG pO2 ABG HCO3 ABG O2 Saturation ABG Base Excess Yemi Test Barometric Pressure Oxygen Given Sodium 135 L Potassium 6.3 H* D Chloride 100 Carbon Dioxide 30 Anion Gap 5.0 BUN 38 H Creatinine 5.90 H* D Est Cr Clr Drug Dosing 9.6 Est GFR ( Amer) 7.6 Est GFR (Non-Af Amer) 6.5 BUN/Creatinine Ratio 6.4 L Glucose 319 H* POC Glucose 304 H* 269 H Lactate Calcium 9.0 Total Bilirubin AST ALT Alkaline Phosphatase Troponin I 2.740 H* Total Protein Albumin Globulin Albumin/Globulin Ratio Lipase Beta-Hydroxybutyric Acd 6.09 H Nasal Screen MRSA (PCR) Diagnostic Findings CT abdomen/pelvis--large hiatal hernia with debris, no acute process Chest CT-- no dissection or PE PG Care Time/CCT Total # of Minutes Spent Total Time Spent with Patient: Total time spent is greater than 50% in coordination of care (as documented) at patient's floor/unit and/or counseling patient:
--- NOTE | 2018-12-29 10:19 | Nephrology Consultation ---
Date of Consultation December 29, 2018 Assessment & Plan (1) End-stage renal disease (ESRD): Orders for emergent HD entered into the EMR and discussed with the dialysis nurse. Rx 4 hours, Qb 350 via AVF. 2K bath. EDW 99 kg. UF goal 1-2 L as tolerated. Patient was seen and evaluated during hemodialysis later this morning. She was tolerating treatment well. Qb appropriate. BP elevated but acceptable. (2) Hypoxemia: Chronic, baseline O2 use 2-3 L. (3) Elevated troponin: Cardiology consult pending. Denies chest pain. (4) Abdominal pain, epigastric: Improved. (5) Vomiting: (6) Depression with anxiety: (7) Dysphagia: (8) Obstructive sleep apnea: (9) Chronic diastolic heart failure: History of Present Illness Reason for Consultation: ESRD on HD Requesting Physician: Any Dawn MD Attending Physician: Any Dawn MD History of Present Illness Shirley Patrick is a 73 year-old female with ESRD attributed to diabetic nephropathy. Shirley has been on HD since September 2015. AVF placed by Dr. Cervantes in October 2015. Dialysis has been without recent complications. Shirley completed her last treatment on 12/27 as scheduled. Net UF 2.1 L. BP has been acceptable. EDW 99 kg. Recent treatments, she has been leaving between 99 and 99.5 kg. Clearances have been appropriate and AVF functioning appropriately with adequate Qb. Medical history is also notable for hypertension, obesity, osteoarthritis, hiatal hernia, depression, COPD, TASH, and a history of pericarditis. Shirley presented to the ED at [facility] yesterday with sudden onset of abdominal pain and intractable vomiting. Symptoms were controlled overnight with antiemetics. She was found to be hyperkalemic. No fevers or chills. Denies abdominal pain. No sick contacts. Denies diarrhea or constipation. Allergies Allergy/AdvReac Type Severity Reaction Status Date / Time lisinopril AdvReac Intermediate cough Verified 12/28/18 15:33 Home Medications Home Medications Medication Instructions Recorded Confirmed Type ProRenal QD 1 tab PO QDL 06/16/18 12/28/18 History aspirin 81 mg PO QAM 06/16/18 12/28/18 History calcium acetate 1,334 mg PO TIDM 06/16/18 12/28/18 History carvedilol 12.5 mg PO BID 06/16/18 12/28/18 History citalopram 20 mg PO HS 06/16/18 12/28/18 History levothyroxine 100 mcg PO HS 06/16/18 12/28/18 History calcium acetate 667 mg PO UD 07/26/18 12/28/18 History atorvastatin 20 mg tablet 20 mg PO HS #90 tab 11/11/18 12/28/18 Rx hydralazine 25 mg tablet 25 mg PO TID 90 Days #270 tab 11/11/18 12/28/18 Rx pantoprazole 40 mg tablet,delayed 40 mg PO BID 90 Days #180 tab 11/11/18 12/28/18 Rx release gabapentin 300 mg capsule 300 mg PO 3XWK #42 cap 12/20/18 12/28/18 History magnesium 400 mg (as magnesium 400 mg PO QAM cap 12/20/18 12/28/18 History oxide) capsule albuterol sulfate HFA 90 2 puffs INHALATION .INHALE 2 PUFFS 12/21/18 12/28/18 History mcg/actuation aerosol inhaler EVERY #1 gm gabapentin 300 mg PO HS 12/28/18 12/28/18 History insulin detemir U-100 20 unit SUBCUT BID 12/28/18 12/28/18 History Patient History Medical History Depression with anxiety (Acute) Diabetic retinopathy (Acute) Dyslipidemia (Acute) Dysphagia (Acute) Epigastric pain (Acute) GERD without esophagitis (Acute) Hypomagnesemia (Acute) Hypotension (Acute) Insomnia (Acute) Joint pain, knee (Acute) Macular puckering, bilateral (Acute) Obstructive sleep apnea (Acute) Otalgia (Acute) Panniculitis (Acute) Paresthesias (Acute) Polyarthritis (Acute) Proteinuria (Acute) Stage 4 chronic kidney disease (Acute) Tubular adenoma of colon (Acute) 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 (Acute) Vitamin D deficiency (Acute) Chronic diastolic heart failure Hypothyroidism Coronary artery disease UTI (urinary tract infection) Anemia Elevated troponin COPD (chronic obstructive pulmonary disease) Diabetes mellitus Diabetes Dehydration (Acute) Chronic kidney disease (Chronic) Arthritis (Chronic) 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) Depression (Chronic) End stage renal disease History of thrombophlebitis (Resolved) Hypertension (Acute) Obesity Diabetes Surgical History H/O: hysterectomy (Resolved) S/P arteriovenous (AV) fistula creation S/P hysterectomy S/P rotator cuff repair Family History Mother Leukemia Cerebral aneurysm Hypertension Anxiety Diabetes Grandmother Hypertension Father Osteoarthritis Diabetes Sister Diabetes Myocardial infarction Brother Myocardial infarction Other No significant family history Social History Preferred Language: Cypriot Communication Ability: Effective Stonemason Required: No Beliefs That Will Affect Care: None Current Living Situation: Spouse Other Information That Helps Us Care for You: No Feels Safe at Home: Yes Safety Concerns: Feels Safe At This Time Smoking Status: Never smoker Do You Dip or Chew Tobacco: No Second Hand Exposure: No Tobacco Cessation Education Requested by Patient: No Hx Alcohol Use: No Hx Substance Use: No Physical Exam Constitutional: + obese; no acute distress Eyes: no scleral abnormality and no corneal abnormality ENMT: Mouth: no oral mucosal abnormality and oral mucous membranes not dry Neck: normal visual inspection and trachea midline Respiratory: no respiratory distress Auscultation: lungs clear to auscultation bilaterally Cardiovascular: Heart Sounds: normal S1 and normal S2; no murmur and no cardiac rub Gastrointestinal (Abdomen): Percussion/Palpation: abdomen soft; abdomen non tender Musculoskeletal: Extremities: no cyanosis and no clubbing Skin: normal turgor; no rashes Neurologic: Motor/Sensory: no tremor and no asterixis Psychiatric: Orientation: alert and oriented x 3 Results & Data Vital Signs (Past 12 Hours) Vital Signs Temp Pulse Resp BP Pulse Ox 12/29/18 09:00 168/98 H 12/29/18 07:34 36.9 C 73 15 181/99 H 97 12/29/18 04:30 167/84 H 12/29/18 03:43 36.7 C 85 20 209/114 H 96 12/29/18 00:24 37.2 C 70 20 164/91 H 95 12/28/18 23:00 180/92 H Laboratory Results Laboratory Results - last 24 hr 12/28/18 12/28/18 12/28/18 15:14 15:14 15:14 WBC 8.56 RBC 3.64 L Hgb 11.5 L Hct 37.1 MCV 101.9 H MCH 31.6 MCHC 31.0 L RDW Std Deviation 53.1 H RDW Coeff of Jared 14.2 Plt Count 193 MPV 10.0 Immature Gran % (Auto) 0.6 Neut % (Auto) 73.3 Lymph % (Auto) 16.6 [place] % (Auto) 7.5 Eos % (Auto) 1.4 Baso % (Auto) 0.6 Immature Gran # (Auto) 0.05 H Neut # (Auto) 6.28 Lymph # (Auto) 1.42 [place] # (Auto) 0.64 H Eos # (Auto) 0.12 Baso # (Auto) 0.05 ESR 67 H PT INR ABG pH ABG pCO2 ABG pO2 ABG HCO3 ABG O2 Saturation ABG Base Excess Yemi Test Barometric Pressure Oxygen Given Sodium 136 Potassium 4.8 Chloride 99 Carbon Dioxide 32 Anion Gap 5.0 BUN 28 H Creatinine 5.45 H* Est Cr Clr Drug Dosing 10.1 Est GFR ( Amer) 8.3 Est GFR (Non-Af Amer) 7.2 BUN/Creatinine Ratio 5.3 L Glucose 178 H POC Glucose Lactate Calcium 9.2 Total Bilirubin 0.3 AST 22 ALT 20 Alkaline Phosphatase 122 H Troponin I 0.139 H* Total Protein 8.5 H Albumin 3.8 Globulin 4.7 H Albumin/Globulin Ratio 0.8 L Lipase 179 Beta-Hydroxybutyric Acd Nasal Screen MRSA (PCR) 12/28/18 12/28/18 12/28/18 15:14 19:45 22:08 WBC RBC Hgb Hct MCV MCH MCHC RDW Std Deviation RDW Coeff of Jared Plt Count MPV Immature Gran % (Auto) Neut % (Auto) Lymph % (Auto) [place] % (Auto) Eos % (Auto) Baso % (Auto) Immature Gran # (Auto) Neut # (Auto) Lymph # (Auto) [place] # (Auto) Eos # (Auto) Baso # (Auto) ESR PT 10.3 INR 1.0 ABG pH 7.38 ABG pCO2 50 H ABG pO2 82 ABG HCO3 29 H ABG O2 Saturation 95.6 H ABG Base Excess 2.7 H Yemi Test Pos Barometric Pressure 732.8 Oxygen Given 5L Sodium Potassium Chloride Carbon Dioxide Anion Gap BUN Creatinine Est Cr Clr Drug Dosing Est GFR ( Amer) Est GFR (Non-Af Amer) BUN/Creatinine Ratio Glucose POC Glucose 331 H* Lactate Calcium Total Bilirubin AST ALT Alkaline Phosphatase Troponin I Total Protein Albumin Globulin Albumin/Globulin Ratio Lipase Beta-Hydroxybutyric Acd Nasal Screen MRSA (PCR) 12/28/18 12/28/18 12/28/18 22:12 22:26 22:30 WBC RBC Hgb Hct MCV MCH MCHC RDW Std Deviation RDW Coeff of Jared Plt Count MPV Immature Gran % (Auto) Neut % (Auto) Lymph % (Auto) [place] % (Auto) Eos % (Auto) Baso % (Auto) Immature Gran # (Auto) Neut # (Auto) Lymph # (Auto) [place] # (Auto) Eos # (Auto) Baso # (Auto) ESR PT INR ABG pH ABG pCO2 ABG pO2 ABG HCO3 ABG O2 Saturation ABG Base Excess Yemi Test Barometric Pressure Oxygen Given Sodium Potassium Chloride Carbon Dioxide Anion Gap BUN Creatinine Est Cr Clr Drug Dosing Est GFR ( Amer) Est GFR (Non-Af Amer) BUN/Creatinine Ratio Glucose POC Glucose 287 H 319 H* Lactate Calcium Total Bilirubin AST ALT Alkaline Phosphatase Troponin I Total Protein Albumin Globulin Albumin/Globulin Ratio Lipase Beta-Hydroxybutyric Acd Nasal Screen MRSA (PCR) Negative 12/28/18 12/28/18 12/29/18 22:39 22:39 01:43 WBC RBC Hgb Hct MCV MCH MCHC RDW Std Deviation RDW Coeff of Jared Plt Count MPV Immature Gran % (Auto) Neut % (Auto) Lymph % (Auto) [place] % (Auto) Eos % (Auto) Baso % (Auto) Immature Gran # (Auto) Neut # (Auto) Lymph # (Auto) [place] # (Auto) Eos # (Auto) Baso # (Auto) ESR PT INR ABG pH ABG pCO2 ABG pO2 ABG HCO3 ABG O2 Saturation ABG Base Excess Yemi Test Barometric Pressure Oxygen Given Sodium Potassium Chloride Carbon Dioxide Anion Gap BUN Creatinine Est Cr Clr Drug Dosing Est GFR ( Amer) Est GFR (Non-Af Amer) BUN/Creatinine Ratio Glucose 332 H* POC Glucose 323 H* Lactate 0.9 Calcium Total Bilirubin AST ALT Alkaline Phosphatase Troponin I Total Protein Albumin Globulin Albumin/Globulin Ratio Lipase Beta-Hydroxybutyric Acd 7.31 H Nasal Screen MRSA (PCR) 12/29/18 12/29/18 12/29/18 01:44 04:10 06:13 WBC RBC Hgb Hct MCV MCH MCHC RDW Std Deviation RDW Coeff of Jared Plt Count MPV Immature Gran % (Auto) Neut % (Auto) Lymph % (Auto) [place] % (Auto) Eos % (Auto) Baso % (Auto) Immature Gran # (Auto) Neut # (Auto) Lymph # (Auto) [place] # (Auto) Eos # (Auto) Baso # (Auto) ESR PT INR ABG pH ABG pCO2 ABG pO2 ABG HCO3 ABG O2 Saturation ABG Base Excess Yemi Test Barometric Pressure Oxygen Given Sodium 135 L Potassium 6.3 H* D Chloride 100 Carbon Dioxide 30 Anion Gap 5.0 BUN 38 H Creatinine 5.90 H* D Est Cr Clr Drug Dosing 9.6 Est GFR ( Amer) 7.6 Est GFR (Non-Af Amer) 6.5 BUN/Creatinine Ratio 6.4 L Glucose 319 H* POC Glucose 304 H* 269 H Lactate Calcium 9.0 Total Bilirubin AST ALT Alkaline Phosphatase Troponin I 2.740 H* Total Protein Albumin Globulin Albumin/Globulin Ratio Lipase Beta-Hydroxybutyric Acd 6.09 H Nasal Screen MRSA (PCR) PG Care Time/CCT Total # of Minutes Spent Total Time Spent with Patient: Total time spent is greater than 50% in coordination of care (as documented) at patient's floor/unit and/or counseling patient: (1) Vomiting Nausea presence: unspecified Vomiting Intractability: unspecified Vomiting type: unspecified Qualified Code(s): R11.10 - Vomiting, unspecified
[2018-12-29] MEDS ORDERED: [UNRECOGNIZED DRUG - OTHER] PO SCH (11:30)
[2018-12-29] MEDS: ONDANSETRON INJ 2 MG/ML 2 ML VIAL IV PRN ×2 (15:13→19:19)
[2018-12-29] MEDS: PROMETHAZINE HCL 12.5 MG in SODIUM CHLORIDE 0.9% 50 ML IV PRN ×2 (16:44→20:50)
[2018-12-29 20:08] LABS: Basophils # (auto) 0.03 K/uL (0-0.2); Basophils % (auto) 0.2 %; Eosinophils # (auto) 0.02 K/uL (0-0.5); Eosinophils % (auto) 0.1 %; Hematocrit (blood only) 36.7 % (37-47); Hemoglobin 11.2 g/dL (12.0-16.0); Immature Granulocytes # (auto) 0.05 K/uL (0.00-0.02); Immature Granulocytes % (auto) 0.3 %; Lymphocytes # (auto) 1.33 K/uL (1.2-3.4); Lymphocytes % (auto) 8.7 %; Mean Corpuscular Volume 103.1 fL (80-100); Mean Platelet Volume 9.8 fL (7.4-10.4); Monocytes # (auto) 1.29 K/uL (0.11-0.59); Monocytes % (auto) 8.4 %; Neutrophils # (auto) 12.56 K/uL (1.4-6.5); Neutrophils % (auto) 82.3 %; Platelet Count 188 K/uL (130-400); RDW Coefficient of Variation 14.7 % (11.5-14.5); RDW Standard Deviation 55.6 fL (36.4-46.3); Red Blood Count 3.56 M/uL (4.2-5.4); White Blood Count 15.28 K/uL (4.8-10.8)
[2018-12-29 20:12] LABS: Mean Corpuscular Hgb Conc 30.5 g/dL (32-36)
[2018-12-29 20:31] LABS: BUN Creatinine Ratio 4.8 (10-20); Calcium 9.1 mg/dl (8.5-10.1); Creatinine Clr Calc Pharmacy 14.2 ml/min; Est GFR (African American) 12.3; Est GFR (Non-African American) 10.6; Troponin I 8.65 ng/ml (0-0.045)
[2018-12-29 20:32] LABS: Potassium 4.1 mmol/L (3.5-5.1)
--- NOTE | 2018-12-29 20:55 | XRay Report ---
XR chest 1V portable, XR KUB/Abdomen 1 view HISTORY: 73 years-old Female hypoxia acute hypoxia with generalized abdominal pain COMPARISON: CT chest, abdomen and pelvis 12/28/2018 and chest radiograph 12/28/2018 TECHNIQUE: Portable AP view of the chest with KUB radiograph FINDINGS: CHEST: Cardiac silhouette is enlarged, unchanged. Pulmonary vascular congestion without overt pulmonary roberto a. Calcified plaque of the thoracic aortic arch. No pneumothorax. Slightly progressed blunting of the right costophrenic angle. No large pleural effusion. Degenerative changes of the shoulders and spine . Hiatal hernia. Surgical clips project over the epigastric region. KUB: Nonobstructive bowel gas pattern. No pneumatosis or pneumoperitoneum. Mild to moderate formed colonic stool. Surgical clips project over the epigastric region. No urolith identified. Degenerative change s of the spine, pelvis and hips. IMPRESSION: 1. Cardiomegaly with pulmonary vascular congestion. 2. Slightly progressed blunting of the right costophrenic angle may reflect atelectasis versus trace effusion. 3. Nonobstructive bowel gas pattern. The above report was generated using voice recognition software. It may contain grammatical, syntax o r spelling errors. Electronically signed by: Odilon Oro M.D. 12/29/2018 8:54 PM
[2018-12-29] MEDS ORDERED: PIPERACILL/TAZOBAC CONSULT ACTIVE PRN (20:58)
[2018-12-29] MEDS ORDERED: METOCLOPRAMIDE HCL INJ 5 MG/ML 2 ML VIAL IV ONE (21:01)
[2018-12-29] MEDS: CITALOPRAM 20 MG TAB PO SCH (21:06)
[2018-12-29] MEDS: LEVOTHYROXINE SODIUM 100 MCG TABLET PO SCH (21:07)
[2018-12-29] MEDS: GABAPENTIN 300 MG CAP PO SCH (21:07)
[2018-12-29] MEDS: PANTOprazole 40 MG TAB PO SCH (21:07)
[2018-12-29] MEDS ORDERED: PIPERACILLIN/TAZOBACTAM 4.5 GM in DEXTROSE 5% 100 ML IV ONE (21:15)
[2018-12-29 21:57] LABS: Influenza A virus by PCR Neg for Influ A (Neg); Influenza B virus by PCR Neg for Influ B (Neg)
[2018-12-30] MEDS: INSULIN ASPART 100 UNITS/ML 3 ML PEN SC SCH ×4 (00:11→17:53)
[2018-12-30] MEDS: PROMETHAZINE HCL 12.5 MG in SODIUM CHLORIDE 0.9% 50 ML IV PRN (03:46)
[2018-12-30] MEDS: PIPERACILLIN/TAZOBACTAM 4.5 GM in DEXTROSE 5% 100 ML IV SCH ×2 (04:38→16:30)
[2018-12-30] MEDS: HydrALAZINE HCL 20 MG/ML VIAL IV PRN ×2 (04:40→12:04)
[2018-12-30] MEDS ORDERED: METOCLOPRAMIDE HCL INJ 5 MG/ML 2 ML VIAL IV ONE (05:33)
[2018-12-30] MEDS: HEPARIN SOD 5,000 UNIT/0.5 ML VIAL SQ SCH ×3 (05:55→22:22)
[2018-12-30 06:11] LABS: BUN Creatinine Ratio 5.9 (10-20); Calcium 8.7 mg/dl (8.5-10.1); Creatinine Clr Calc Pharmacy 12.5 ml/min; Est GFR (African American) 10.5; Est GFR (Non-African American) 9.1
[2018-12-30 06:13] LABS: Potassium 5.1 mmol/L (3.5-5.1)
[2018-12-30] MEDS ORDERED: PERFLUTREN LIPID MICROSPHERE (DEFINITY) IV ONE (06:54)
[2018-12-30 07:55] LABS: Basophils # (auto) 0.02 K/uL (0-0.2); Basophils % (auto) 0.1 %; Hematocrit (blood only) 35.7 % (37-47); Hemoglobin 11.2 g/dL (12.0-16.0); Immature Granulocytes # (auto) 0.11 K/uL (0.00-0.02); Immature Granulocytes % (auto) 0.6 %; Lymphocytes % (auto) 6.2 %; Mean Corpuscular Hgb Conc 31.4 g/dL (32-36); Mean Corpuscular Volume 101.7 fL (80-100); Mean Platelet Volume 9.9 fL (7.4-10.4); Monocytes % (auto) 5.6 %; Neutrophils # (auto) 15.58 K/uL (1.4-6.5); Neutrophils % (auto) 87.5 %; Platelet Count 192 K/uL (130-400); RDW Coefficient of Variation 14.7 % (11.5-14.5); RDW Standard Deviation 54.1 fL (36.4-46.3); Red Blood Count 3.51 M/uL (4.2-5.4); White Blood Count 17.81 K/uL (4.8-10.8)
[2018-12-30] MEDS ORDERED: NITROGLYCERIN SL 0.4 MG/TAB TAB SL PRN (09:07)
[2018-12-30] MEDS ORDERED: HYDROmorphone INJ 0.5 MG/0.5 ML SYR IV PRN (09:08)
[2018-12-30] MEDS ORDERED: Heparin IV Standard *NO* Bolus IV SCH (09:09)
[2018-12-30] MEDS ORDERED: HEPARIN SODIUM/DEXTROSE 25,000 UNITS/500 ML BAG IV SCH (09:15)
[2018-12-30] MEDS: SODIUM CHLORIDE 0.9% 1000ML 1,000 ML IV SCH ×3 (09:17→22:22)
[2018-12-30] MEDS: FAMOTIDINE 20 MG in SYRINGE 3 ML IV SCH ×2 (09:17→20:32)
[2018-12-30] MEDS: CARVEDILOL 12.5 MG TAB PO SCH ×2 (09:18→20:28)
[2018-12-30] MEDS: SUCRALFATE 1 GM/10 ML UDC PO SCH ×4 (09:19→20:27)
[2018-12-30] MEDS: PANTOprazole 40 MG TAB PO SCH ×2 (09:19→20:29)
[2018-12-30] MEDS: MAGNESIUM OXIDE 400 MG TAB PO SCH (09:19)
[2018-12-30] MEDS: ASPIRIN 81 MG ECTAB PO SCH (09:19)
[2018-12-30] MEDS: INSULIN DETEMIR FLEXPEN/FLEX TOUCH 100 UNITS/ML 3ML SC SCH (09:20)
--- NOTE | 2018-12-30 09:49 | Gastrointestinal Consultation ---
Date of Consultation December 30, 2018 Assessment & Plan (1) Elevated troponin: (2) Epigastric pain: (3) Vomitin. Given the abnormal findings on echocardiogram/ecg this morning concerning infarction, no plan for EGD. Await further input from cardiology. 2. Continue IV Protonix, Zantac and antiemetics as prescribed. 3. Continue supportive care. Supervising Physician Co-Signing Physician Notes Agree with MARIA E Mendoza as above Abd: Soft, NT, ND, +BS Continue current medical management from GI standpoint No plans for invasive workup at this time History of Present Illness Reason for Consultation: Vomiting Requesting Physician: Dr. Barfield Attending Physician: Any Dawn MD History of Present Illness Patient is a 73 year-old female with a history of chronic GERD as well as dysphagia previously seen by Francisca Harris PA-C as an outpatient for symptoms of epigastric pain as well as nausea with vomiting which has been ongoing intermittently reportedly since the removal of a silicone ring which was placed during a prior hiatal hernia repair due to slippage. At the time of evaluation in July of this year, she had just been seen at the ER for her symptoms and was noted to have a slight increase in her troponin. Due to this, Francisca had recommended a cardiac evaluation prior to consideration of EGD but did order a barium swallow which demonstrated a small hiatus hernia and esophageal dysmotility. No obvious strictures, webs or masses. Patient returned to the ER on 12/28/18 due to worsening symptoms of epigastric pain as well as persistent bilious vomiting. She was found to have an increase in her baseline troponin from .084 up to 2.7. She was seen by cardiology yesterday and an echocardiogram as well as repeat ECG were ordered and both performed this morning. She did have an abnormal ECG as well as abnormal echocardiogram consistent with hypokinetic to akinetic right ventricular wall motion. Allergies Allergy/AdvReac Type Severity Reaction Status Date / Time lisinopril AdvReac Intermediate cough Verified 12/28/18 15:33 Home Medications Home Medications Medication Instructions Recorded Confirmed Type ProRenal QD 1 tab PO QDL 06/16/18 12/28/18 History aspirin 81 mg PO QAM 06/16/18 12/28/18 History calcium acetate 1,334 mg PO TIDM 06/16/18 12/28/18 History carvedilol 12.5 mg PO BID 06/16/18 12/28/18 History citalopram 20 mg PO HS 06/16/18 12/28/18 History levothyroxine 100 mcg PO HS 06/16/18 12/28/18 History calcium acetate 667 mg PO UD 07/26/18 12/28/18 History atorvastatin 20 mg tablet 20 mg PO HS #90 tab 11/11/18 12/28/18 Rx hydralazine 25 mg tablet 25 mg PO TID 90 Days #270 tab 11/11/18 12/28/18 Rx pantoprazole 40 mg tablet,delayed 40 mg PO BID 90 Days #180 tab 11/11/18 12/28/18 Rx release gabapentin 300 mg capsule 300 mg PO 3XWK #42 cap 12/20/18 12/28/18 History magnesium 400 mg (as magnesium 400 mg PO QAM cap 12/20/18 12/28/18 History oxide) capsule albuterol sulfate HFA 90 2 puffs INHALATION .INHALE 2 PUFFS 12/21/18 12/28/18 History mcg/actuation aerosol inhaler EVERY #1 gm gabapentin 300 mg PO HS 12/28/18 12/28/18 History insulin detemir U-100 20 unit SUBCUT BID 12/28/18 12/28/18 History Patient History Medical History Depression with anxiety (Acute) Diabetic retinopathy (Acute) Dyslipidemia (Acute) Dysphagia (Acute) Epigastric pain (Acute) GERD without esophagitis (Acute) Hypomagnesemia (Acute) Hypotension (Acute) Insomnia (Acute) Joint pain, knee (Acute) Macular puckering, bilateral (Acute) Obstructive sleep apnea (Acute) Otalgia (Acute) Panniculitis (Acute) Paresthesias (Acute) Polyarthritis (Acute) Proteinuria (Acute) Stage 4 chronic kidney disease (Acute) Tubular adenoma of colon (Acute) 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 (Acute) Vitamin D deficiency (Acute) Chronic diastolic heart failure Hypothyroidism Coronary artery disease UTI (urinary tract infection) Anemia Elevated troponin COPD (chronic obstructive pulmonary disease) Diabetes mellitus Diabetes Dehydration (Acute) Chronic kidney disease (Chronic) Arthritis (Chronic) 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) Depression (Chronic) End stage renal disease History of thrombophlebitis (Resolved) Hypertension (Acute) Obesity Diabetes Surgical History H/O: hysterectomy (Resolved) S/P arteriovenous (AV) fistula creation S/P hysterectomy S/P rotator cuff repair Family History Mother Leukemia Cerebral aneurysm Hypertension Anxiety Diabetes Grandmother Hypertension Father Osteoarthritis Diabetes Sister Diabetes Myocardial infarction Brother Myocardial infarction Other No significant family history Social History Preferred Language: Slovak Communication Ability: Effective Camera Technician Required: No Beliefs That Will Affect Care: None Current Living Situation: Spouse Other Information That Helps Us Care for You: No Feels Safe at Home: Yes Safety Concerns: Feels Safe At This Time Smoking Status: Never smoker Do You Dip or Chew Tobacco: No ; Second Hand Exposure: No ; Tobacco Cessation Education Requested by Patient: No Hx Alcohol Use: No Hx Substance Use: No Review of Systems Constitutional: no fever and no chills Eyes: no problem reported Ear, Nose, Mouth, Throat: as per Subjective / HPI Respiratory: + dyspnea and + dyspnea on exertion Cardiovascular: no chest pain and no palpitations Gastrointestinal: as per Subjective / HPI Genitourinary: + decreased urination Musculoskeletal: + swelling Integumentary: no problem reported Neurologic: no problem reported Psychiatric: no problem reported Physical Exam Constitutional: WD/WN, vitals as above Eyes: EOM intact bilaterally Neck: normal appearance Respiratory: normal respiratory effort, lungs clear to auscultation Cardiovascular: Rate/Rhythm: regular rate and regular rhythm Gastrointestinal (Abdomen): Percussion/Palpation: + abdomen tender (epigastric) and abdomen soft Musculoskeletal: pedal edema Skin: no rashes, warm and dry Psychiatric: A+Ox3, euthymic affect Results & Data Vital Signs (Past 12 Hours) Vital Signs Temp Pulse Pulse Resp BP Pulse Ox 12/30/18 07:46 36.5 C 94 H 18 184/98 H 95 12/30/18 03:40 36.7 C 94 H 17 170/99 H 95 12/29/18 23:05 36.9 C 93 H 19 174/93 H 93 Laboratory Results Abnormal lab results 0812/29/18 12/29/18 Range/Units 14:01 14:09 16:32 WBC (4.8-10.8) K/uL RBC (4.2-5.4) M/uL Hgb (12.0-16.0) g/dL Hct (37-47) % MCV (80-100) fL MCHC (32-36) g/dL RDW Std Deviation (36.4-46.3) fL RDW Coeff of Jared (11.5-14.5) % Immature Gran # (Auto) (0.00-0.02) K/uL Neut # (Auto) (1.4-6.5) K/uL Lymph # (Auto) (1.2-3.4) K/uL [place] # (Auto) (0.11-0.59) K/uL Sodium (136-145) mmol/L Chloride (98-107) mmol/L BUN (7-18) mg/dl Creatinine (0.6-1.2) mg/dl BUN/Creatinine Ratio (10-20) Glucose (70-99) mg/dl POC Glucose 134 H 158 H (70-99) Troponin I 5.370 H* (0-0.045) ng/ml 12/29/18 12/29/18 12/29/18 Range/Units 18:45 19:44 19:44 WBC 15.28 H (4.8-10.8) K/uL RBC 3.56 L (4.2-5.4) M/uL Hgb 11.2 L (12.0-16.0) g/dL Hct 36.7 L (37-47) % MCV 103.1 H (80-100) fL MCHC 30.5 L (32-36) g/dL RDW Std Deviation 55.6 H (36.4-46.3) fL RDW Coeff of Jared 14.7 H (11.5-14.5) % Immature Gran # (Auto) 0.05 H (0.00-0.02) K/uL Neut # (Auto) 12.56 H (1.4-6.5) K/uL Lymph # (Auto) (1.2-3.4) K/uL [place] # (Auto) 1.29 H (0.11-0.59) K/uL Sodium 134 L (136-145) mmol/L Chloride 97 L (98-107) mmol/L BUN 19 H (7-18) mg/dl Creatinine 3.96 H D (0.6-1.2) mg/dl BUN/Creatinine Ratio 4.8 L (10-20) Glucose 181 H (70-99) mg/dl POC Glucose 168 H (70-99) Troponin I 8.650 H* (0-0.045) ng/ml 12/29/18 12/29/18 12/30/18 Range/Units 21:20 23:49 05:10 WBC (4.8-10.8) K/uL RBC (4.2-5.4) M/uL Hgb (12.0-16.0) g/dL Hct (37-47) % MCV (80-100) fL MCHC (32-36) g/dL RDW Std Deviation (36.4-46.3) fL RDW Coeff of Jared (11.5-14.5) % Immature Gran # (Auto) (0.00-0.02) K/uL Neut # (Auto) (1.4-6.5) K/uL Lymph # (Auto) (1.2-3.4) K/uL [place] # (Auto) (0.11-0.59) K/uL Sodium 132 L (136-145) mmol/L Chloride 97 L (98-107) mmol/L BUN 27 H (7-18) mg/dl Creatinine 4.49 H D (0.6-1.2) mg/dl BUN/Creatinine Ratio 5.9 L (10-20) Glucose 249 H (70-99) mg/dl POC Glucose 201 H 247 H (70-99) Troponin I (0-0.045) ng/ml 12/30/18 12/30/18 12/30/18 Range/Units 05:10 05:53 07:43 WBC 17.81 H (4.8-10.8) K/uL RBC 3.51 L (4.2-5.4) M/uL Hgb 11.2 L (12.0-16.0) g/dL Hct 35.7 L (37-47) % MCV 101.7 H (80-100) fL MCHC 31.4 L (32-36) g/dL RDW Std Deviation 54.1 H (36.4-46.3) fL RDW Coeff of Jared 14.7 H (11.5-14.5) % Immature Gran # (Auto) 0.11 H (0.00-0.02) K/uL Neut # (Auto) 15.58 H (1.4-6.5) K/uL Lymph # (Auto) 1.10 L (1.2-3.4) K/uL [place] # (Auto) 1.00 H (0.11-0.59) K/uL Sodium (136-145) mmol/L Chloride (98-107) mmol/L BUN (7-18) mg/dl Creatinine (0.6-1.2) mg/dl BUN/Creatinine Ratio (10-20) Glucose (70-99) mg/dl POC Glucose 247 H (70-99) Troponin I 12.600 H* (0-0.045) ng/ml PG Care Time/CCT Total # of Minutes Spent Total Time Spent with Patient: Total time spent is greater than 50% in coordination of care (as documented) at patient's floor/unit and/or counseling patient: (1) Vomiting Nausea presence: unspecified Vomiting Intractability: unspecified Vomiting type: unspecified Qualified Code(s): R11.10 - Vomiting, unspecified
--- NOTE | 2018-12-30 10:27 | Cardiology Progress Note ---
Date of Service December 30, 2018 Assessment & Plan (1) Abdominal pain, epigastric: Although she has a long history of abdominal discomfort which has been attributed to esophageal disease I am now especially concerned that this is due to ischemic heart disease. She has no prior diagnosis of ischemic heart disease but her current findings suggest that this is the case. She was asymptomatic until during the night but her symptoms have continued. (2) Elevated troponin: Her troponin has gradually increased, when she came in it was slightly elevated and of her symptoms we did not proceed with catheterization yesterday, especially in view of her hyperkalemia. Today however her troponin is continued to rise and she also has left ventricular dysfunction. This is consistent with myocardial infarction. I think we need to perform catheterization on an urgent basis. I discussed it with her and we will proceed. (3) LBBB (left bundle branch block): She has a left bundle branch block and therefore we cannot read ischemia with any accuracy, her electrocardiogram this morning is virtually identical to the one yesterday morning. (4) Cardiomyopathy: She has severe left ventricular dysfunction which is a new finding. This is consistent with ischemic heart disease. A nonischemic cardiomyopathy such as myocarditis causing an enzyme rise is a possibility but ischemia is the diagnosis of exclusion. Subjective Yesterday her epigastric discomfort had resolved, however during the night it recurred. This morning at the time of my evaluation she is complaining of epigastric discomfort and indigestion. She was again relates this to her prior GI difficulties. She has no shortness of breath, no other complaints. No chest discomfort specifically. Physical Exam Physical Exam: Constitutional: Alert, cooperative and in no distress. Pulmonary: Clear to auscultation bilaterally. Cardiac: Regular rhythm with no murmur, gallop or rub. Abdomen: Soft, nontender with normal bowel sounds. Extremities: No edema. Right-sided dialysis graft. Skin: No rash, ecchymoses or petechiae. Results & Data Vital Signs (Past 12 Hours) Vital Signs Temp Pulse Pulse Resp BP Pulse Ox 12/30/18 07:46 36.5 C 94 H 18 184/98 H 95 12/30/18 03:40 36.7 C 94 H 17 170/99 H 95 12/29/18 23:05 36.9 C 93 H 19 174/93 H 93 Laboratory Results Abnormal lab results 12/29/18 12/29/18 12/29/18 Range/Units 14:01 14:09 16:32 WBC (4.8-10.8) K/uL RBC (4.2-5.4) M/uL Hgb (12.0-16.0) g/dL Hct (37-47) % MCV (80-100) fL MCHC (32-36) g/dL RDW Std Deviation (36.4-46.3) fL RDW Coeff of Jared (11.5-14.5) % Immature Gran # (Auto) (0.00-0.02) K/uL Neut # (Auto) (1.4-6.5) K/uL Lymph # (Auto) (1.2-3.4) K/uL [place] # (Auto) (0.11-0.59) K/uL Sodium (136-145) mmol/L Chloride (98-107) mmol/L BUN (7-18) mg/dl Creatinine (0.6-1.2) mg/dl BUN/Creatinine Ratio (10-20) Glucose (70-99) mg/dl POC Glucose 134 H 158 H (70-99) Troponin I 5.370 H* (0-0.045) ng/ml 12/29/18 12/29/18 12/29/18 Range/Units 18:45 19:44 19:44 WBC 15.28 H (4.8-10.8) K/uL RBC 3.56 L (4.2-5.4) M/uL Hgb 11.2 L (12.0-16.0) g/dL Hct 36.7 L (37-47) % MCV 103.1 H (80-100) fL MCHC 30.5 L (32-36) g/dL RDW Std Deviation 55.6 H (36.4-46.3) fL RDW Coeff of Jared 14.7 H (11.5-14.5) % Immature Gran # (Auto) 0.05 H (0.00-0.02) K/uL Neut # (Auto) 12.56 H (1.4-6.5) K/uL Lymph # (Auto) (1.2-3.4) K/uL [place] # (Auto) 1.29 H (0.11-0.59) K/uL Sodium 134 L (136-145) mmol/L Chloride 97 L (98-107) mmol/L BUN 19 H (7-18) mg/dl Creatinine 3.96 H D (0.6-1.2) mg/dl BUN/Creatinine Ratio 4.8 L (10-20) Glucose 181 H (70-99) mg/dl POC Glucose 168 H (70-99) Troponin I 8.650 H* (0-0.045) ng/ml 12/29/18 12/29/18 12/30/18 Range/Units 21:20 23:49 05:10 WBC (4.8-10.8) K/uL RBC (4.2-5.4) M/uL Hgb (12.0-16.0) g/dL Hct (37-47) % MCV (80-100) fL MCHC (32-36) g/dL RDW Std Deviation (36.4-46.3) fL RDW Coeff of Jared (11.5-14.5) % Immature Gran # (Auto) (0.00-0.02) K/uL Neut # (Auto) (1.4-6.5) K/uL Lymph # (Auto) (1.2-3.4) K/uL [place] # (Auto) (0.11-0.59) K/uL Sodium 132 L (136-145) mmol/L Chloride 97 L (98-107) mmol/L BUN 27 H (7-18) mg/dl Creatinine 4.49 H D (0.6-1.2) mg/dl BUN/Creatinine Ratio 5.9 L (10-20) Glucose 249 H (70-99) mg/dl POC Glucose 201 H 247 H (70-99) Troponin I (0-0.045) ng/ml 12/30/18 12/30/18 12/30/18 Range/Units 05:10 05:53 07:43 WBC 17.81 H (4.8-10.8) K/uL RBC 3.51 L (4.2-5.4) M/uL Hgb 11.2 L (12.0-16.0) g/dL Hct 35.7 L (37-47) % MCV 101.7 H (80-100) fL MCHC 31.4 L (32-36) g/dL RDW Std Deviation 54.1 H (36.4-46.3) fL RDW Coeff of Jared 14.7 H (11.5-14.5) % Immature Gran # (Auto) 0.11 H (0.00-0.02) K/uL Neut # (Auto) 15.58 H (1.4-6.5) K/uL Lymph # (Auto) 1.10 L (1.2-3.4) K/uL [place] # (Auto) 1.00 H (0.11-0.59) K/uL Sodium (136-145) mmol/L Chloride (98-107) mmol/L BUN (7-18) mg/dl Creatinine (0.6-1.2) mg/dl BUN/Creatinine Ratio (10-20) Glucose (70-99) mg/dl POC Glucose 247 H (70-99) Troponin I 12.600 H* (0-0.045) ng/ml Diagnostic Findings Electrocardiogram today: Sinus rhythm with left bundle branch block pattern. No change from yesterday. Telemetry: Sinus rhythm in the 90s. No significant ectopy. PG Care Time/CCT Total # of Minutes Spent Total Time Spent with Patient: Total time spent is greater than 50% in coordination of care (as documented) at patient's floor/unit and/or counseling patient:
--- NOTE | 2018-12-30 10:43 | Nephrology Progress Note ---
Date of Service December 30, 2018 Assessment & Plan (1) End-stage renal disease (ESRD): -- On HD TTS schedule -- Rx 4 hours, Qb 350 via AVF. 2K bath. EDW 99 kg -- Tolerated HD yesterday without complications, UF 2 L -- Volume status and electrolytes are currently acceptable -- Plan next HD tomorrow (2) Elevated troponin: -- Troponin continues to rise -- Persistent epigastric pain, as above -- EKG demonstrates new LBBB -- Cardiology following, possible cath/PCI planned (3) Depression with anxiety: -- Appropriately anxious regarding acute illness and cardiac condition (4) Cardiomyopathy: -- TTE demonstrates LVEF 20-25% with severe global hypokinesis with sparing of the basal segment, RASP 50-60 by estimate. (5) Diabetes mellitus: Subjective Epigastric pain persists. Shirley states that she does not feel well. She describes stabbing abdominal pain radiating to her back. Pain typically lasts 10-15 seconds. She denies dyspnea. Tolerated HD yesterday without complications. Net UF 2 L. Review of Systems Review of Systems: All systems reviewed & are unremarkable except as noted in HPI & below Physical Exam Constitutional: + obese; no acute distress Eyes: no scleral abnormality and no corneal abnormality ENMT: Mouth: no oral mucosal abnormality and oral mucous membranes not dry Neck: normal visual inspection and trachea midline Respiratory: no respiratory distress Auscultation: lungs clear to auscultation bilaterally Cardiovascular: Heart Sounds: normal S1 and normal S2; no murmur and no cardiac rub Gastrointestinal (Abdomen): Percussion/Palpation: abdomen soft; abdomen nontender Musculoskeletal: Extremities: no cyanosis and no clubbing Skin: normal turgor; no rashes Neurologic: Motor/Sensory: no tremor and no asterixis Psychiatric: Orientation: alert and oriented x 3 Results & Data Vital Signs (Past 12 Hours) Vital Signs Temp Pulse Pulse Resp BP Pulse Ox 12/30/18 07:46 36.5 C 94 H 18 184/98 H 95 12/30/18 03:40 36.7 C 94 H 17 170/99 H 95 12/29/18 23:05 36.9 C 93 H 19 174/93 H 93 Laboratory Results Laboratory Results - last 24 hr 12/29/18 12/29/18 12/29/18 14:01 14:09 16:32 WBC RBC Hgb Hct MCV MCH MCHC RDW Std Deviation RDW Coeff of Jared Plt Count MPV Immature Gran % (Auto) Neut % (Auto) Lymph % (Auto) Kings % (Auto) Eos % (Auto) Baso % (Auto) Immature Gran # (Auto) Neut # (Auto) Lymph # (Auto) Kings # (Auto) Eos # (Auto) Baso # (Auto) Sodium Potassium Chloride Carbon Dioxide Anion Gap BUN Creatinine Est Cr Clr Drug Dosing Est GFR ( Amer) Est GFR (Non-Af Amer) BUN/Creatinine Ratio Glucose POC Glucose 134 H 158 H Lactate Calcium Troponin I 5.370 H* Influenza Type A (PCR) Influenza Type B (PCR) 12/29/18 12/29/18 12/29/18 18:45 19:44 19:44 WBC 15.28 H RBC 3.56 L Hgb 11.2 L Hct 36.7 L MCV 103.1 H MCH 31.5 MCHC 30.5 L RDW Std Deviation 55.6 H RDW Coeff of Jared 14.7 H Plt Count 188 MPV 9.8 Immature Gran % (Auto) 0.3 Neut % (Auto) 82.3 Lymph % (Auto) 8.7 Kings % (Auto) 8.4 Eos % (Auto) 0.1 Baso % (Auto) 0.2 Immature Gran # (Auto) 0.05 H Neut # (Auto) 12.56 H Lymph # (Auto) 1.33 Kings # (Auto) 1.29 H Eos # (Auto) 0.02 Baso # (Auto) 0.03 Sodium 134 L Potassium 4.1 D Chloride 97 L Carbon Dioxide 31 Anion Gap 7.0 BUN 19 H Creatinine 3.96 H D Est Cr Clr Drug Dosing 14.2 Est GFR ( Amer) 12.3 Est GFR (Non-Af Amer) 10.6 BUN/Creatinine Ratio 4.8 L Glucose 181 H POC Glucose 168 H Lactate Calcium 9.1 Troponin I 8.650 H* Influenza Type A (PCR) Influenza Type B (PCR) 12/29/18 12/29/18 12/29/18 19:44 20:50 21:20 WBC RBC Hgb Hct MCV MCH MCHC RDW Std Deviation RDW Coeff of Jared Plt Count MPV Immature Gran % (Auto) Neut % (Auto) Lymph % (Auto) Kings % (Auto) Eos % (Auto) Baso % (Auto) Immature Gran # (Auto) Neut # (Auto) Lymph # (Auto) Kings # (Auto) Eos # (Auto) Baso # (Auto) Sodium Potassium Chloride Carbon Dioxide Anion Gap BUN Creatinine Est Cr Clr Drug Dosing Est GFR ( Amer) Est GFR (Non-Af Amer) BUN/Creatinine Ratio Glucose POC Glucose 201 H Lactate 1.9 Calcium Troponin I Influenza Type A (PCR) Neg for Influ A Influenza Type B (PCR) Neg for Influ B 12/29/18 12/30/18 12/30/18 23:49 05:10 05:10 WBC RBC Hgb Hct MCV MCH MCHC RDW Std Deviation RDW Coeff of Jared Plt Count MPV Immature Gran % (Auto) Neut % (Auto) Lymph % (Auto) Kings % (Auto) Eos % (Auto) Baso % (Auto) Immature Gran # (Auto) Neut # (Auto) Lymph # (Auto) Kings # (Auto) Eos # (Auto) Baso # (Auto) Sodium 132 L Potassium 5.1 D Chloride 97 L Carbon Dioxide 26 Anion Gap 9.0 BUN 27 H Creatinine 4.49 H D Est Cr Clr Drug Dosing 12.5 Est GFR ( Amer) 10.5 Est GFR (Non-Af Amer) 9.1 BUN/Creatinine Ratio 5.9 L Glucose 249 H POC Glucose 247 H Lactate Calcium 8.7 Troponin I 12.600 H* Influenza Type A (PCR) Influenza Type B (PCR) 12/30/18 12/30/18 05:53 07:43 WBC 17.81 H RBC 3.51 L Hgb 11.2 L Hct 35.7 L MCV 101.7 H MCH 31.9 MCHC 31.4 L RDW Std Deviation 54.1 H RDW Coeff of Jared 14.7 H Plt Count 192 MPV 9.9 Immature Gran % (Auto) 0.6 Neut % (Auto) 87.5 Lymph % (Auto) 6.2 Kings % (Auto) 5.6 Eos % (Auto) 0.0 Baso % (Auto) 0.1 Immature Gran # (Auto) 0.11 H Neut # (Auto) 15.58 H Lymph # (Auto) 1.10 L Kings # (Auto) 1.00 H Eos # (Auto) 0.00 Baso # (Auto) 0.02 Sodium Potassium Chloride Carbon Dioxide Anion Gap BUN Creatinine Est Cr Clr Drug Dosing Est GFR ( Amer) Est GFR (Non-Af Amer) BUN/Creatinine Ratio Glucose POC Glucose 247 H Lactate Calcium Troponin I Influenza Type A (PCR) Influenza Type B (PCR) PG Care Time/CCT Total # of Minutes Spent Total Time Spent with Patient: Total time spent is greater than 50% in coordination of care (as documented) at patient's floor/unit and/or counseling patient:
--- NOTE | 2018-12-30 10:45 | Pre Anesthesia Assessment ---
Date of Service December 30, 2018 Pre Sedation Assessment Vital Signs Temp Pulse Pulse Pulse Resp BP BP 12/30/18 07:46 36.5 C 94 H 18 184/98 H 12/30/18 03:40 36.7 C 94 H 17 170/99 H 12/29/18 23:05 36.9 C 93 H 19 174/93 H 12/29/18 21:38 37.0 C 12/29/18 19:13 38.1 C H 84 19 145/74 H 12/29/18 16:47 37.6 C H 81 163/69 H 12/29/18 15:05 38.0 C H 80 18 178/101 H 12/29/18 14:51 37.3 C 63 113/66 12/29/18 14:00 37 C 72 16 144/69 H 12/29/18 13:00 68 118/62 12/29/18 12:40 66 120/68 12/29/18 12:20 65 110/60 12/29/18 12:04 66 113/63 12/29/18 11:40 66 107/56 L 12/29/18 11:20 67 101/61 12/29/18 11:00 65 94/54 L Pulse Ox 12/30/18 07:46 95 12/30/18 03:40 95 12/29/18 23:05 93 12/29/18 21:38 12/29/18 19:13 97 12/29/18 16:47 12/29/18 15:05 95 12/29/18 14:51 12/29/18 14:00 97 12/29/18 13:00 12/29/18 12:40 12/29/18 12:20 12/29/18 12:04 12/29/18 11:40 12/29/18 11:20 12/29/18 11:00 Pre-Sedation Airway Assessment Smoking Status: Never smoker Notes The planned sedation has been discussed with the patient. Informed Consent was obtained. I have identified the patient, determined the appropriateness of sedation and have assessed the patient immediately prior to the procedure. All medicine(s) and interventions are by my order.
[2018-12-30] MEDS ORDERED: MIDAZOLAM HCL 1 MG/ML 2ML VIAL ONE (10:47)
[2018-12-30] MEDS ORDERED: NiCARDipine HCL INJ 2.5 MG/ML 10 ML AMP ONE (10:47)
[2018-12-30] MEDS ORDERED: NITROGLYCERIN/D5W 100MCG/ML 20ML SYR ONE (10:47)
[2018-12-30] MEDS ORDERED: fentaNYL citrate 100 MCG/2 ML VIAL ONE (10:47)
[2018-12-30] MEDS ORDERED: HEPARIN (PORCINE) 1000 UNIT/ML 10 ML (CATH LAB USE ONLY) ONE (10:47)
--- NOTE | 2018-12-30 11:31 | Cardiac Catheterization ---
ACC Data: Hybrid Tester Cardiac Status Clinical evaluation leading to the procedure CAD Presenation: Non STEMI Anginal Classification: CCS III Heart Failure: No Cardiogenic Shock within 24 Hours: No Cardiac Arrest within 24 Hours: No Imaging Studies Past 6 Months: Yes Stress Studies Past 6 Months: No Diagnostic Physicians Name: Davon Qureshi MD Status: Elective Closure Device Percutaneous Entry Location: Radial Closure Device: Radial Band Recommendations: Medical Therapy and/or Counseling Intraprocedure Events Significant Disection: No Perforation: No Cardiac Cath Procedure Full Procedure Date December 30, 2018 Pre-Procedure Diagnosis Pre-Procedure Diagnosis: Non STEMI AUC Score AUC Score: 8 Post-Procedure Diagnosis Post-Procedure Diagnosis: Normal Coronary Arteries and Elevated Intracardiac Pressures Procedure(s) Performed Procedure(s) Performed: Coronary Angiography and Left Heart Cath Supervisor Assembly Department Davon Qureshi MD Field Service Supervisor(s) [place]unt Estimated Blood Loss Estimated Blood Loss: 5 Medication(s) Medication(s): Fentanyl, Heparin, Lidocaine 1%, Nicardipine and Versed Summary of Findings Indication: NSTEMI Access: 6 Fr slender left radial artery Catheters: JL4, AR-1, JR4 Findings: LM -large caliber vessel, short, almost separate ostium, angiographic normal LAD -large caliber vessel, luminal irregularities, extends to apex. Gives off 3 small diagonals. Circumflex -codominant, large caliber vessel, gives off large OM 2 without significant disease RCA -moderate caliber vessel, codominant, 20 to 30% mid segment disease, distal luminal irregularities LVEDP -28 Arterial Closure: TR band Summary: 1. Minimal nonobstructive coronary artery disease -20 to 30% mid RCA 2. Elevated intracardiac filling pressure Recommendations: GDMT for nonischemic cardiomyopathy Continued ASCVD risk factor modification Volume management per dialysis Hemodynamics Rest Ao:: 129/67/94 Final Ao: 147/80/110 LV: 136/28 Recommendations Recommendations: Medical Therapy and/or Counseling Specimens Specimens: None Radiation Exposure (mGy) 2399 Contrast (mls) 95 Fluids (cc crystalloids) Fluids (cc crystalloids): 10 Drains Drains: none Anesthesia moderate Procedural Complication(s) None Disposition Hybrid Tester Holding/Recovery
--- NOTE | 2018-12-30 11:32 | Post Anesthesia Assessment ---
Date of Service December 30, 2018 Post Sedation Assessment Vital Signs Temp Pulse Pulse Pulse Resp BP BP 12/30/18 07:46 36.5 C 94 H 18 184/98 H 12/30/18 03:40 36.7 C 94 H 17 170/99 H 12/29/18 23:05 36.9 C 93 H 19 174/93 H 12/29/18 21:38 37.0 C 12/29/18 19:13 38.1 C H 84 19 145/74 H 12/29/18 16:47 37.6 C H 81 163/69 H 12/29/18 15:05 38.0 C H 80 18 178/101 H 12/29/18 14:51 37.3 C 63 113/66 12/29/18 14:00 37 C 72 16 144/69 H 12/29/18 13:00 68 118/62 12/29/18 12:40 66 120/68 12/29/18 12:20 65 110/60 12/29/18 12:04 66 113/63 12/29/18 11:40 66 107/56 L Pulse Ox 12/30/18 07:46 95 12/30/18 03:40 95 12/29/18 23:05 93 12/29/18 21:38 12/29/18 19:13 97 12/29/18 16:47 12/29/18 15:05 95 12/29/18 14:51 12/29/18 14:00 97 12/29/18 13:00 12/29/18 12:40 12/29/18 12:20 12/29/18 12:04 12/29/18 11:40 Recovery Score Activity: Moves 4 extremities Respiration: Deep Breath/Cough Circulation: +/-20% PreAnes Value Consciousness: Fully Awake Oxygen Saturation: O2 needed for >90% Discharge Sedation Level of Care: Fast Track Phase II Post Sedation Plan On clinical assessment, the patient appears to have tolerated the sedation without complications. Patient is recovering as anticipated. Patient will continue to be monitored by nursing and may be discharged when sedation discharge criteria are met per below protocol. Upon Completions of procedure and additional 15 minutes continue every 5 minute vital signs and the P.A.R. score; then discharge to a Phase I or Fast Track to Phase II per the following guidelines: * Discharge Patient to appropriate Phase II area if PAR is 8 or greater or return to pre- procedure baseline. The post - procedure orders will be as directed. * If PAR score is less than 8 or not return to pre-procedure baseline then patient will follow Phase I monitoring till PAR is reached for Phase II. The Phase I may be done in procedure room or may call to secure a Phase I area. * If naloxone or flumazenil are used for reversal, hold in Phase I for continued monitoring from when last reversal dose was given for a minimum of 60 minutes or longer pending the nurse and/or physician discretion of patient condition before discharge to Phase II. Please call the Sedation Physician to re-evaluate and complete post-note for discharge to Phase II area. Do NOT discharge from procedure sedation or Phase 1 until post- sedation evaluation note is complete by procedure /sedation MD Sedation Discharge Instructions to be given to the patient at discharge to home.
--- NOTE | 2018-12-30 13:36 | XRay Report ---
SINGLE VIEW CHEST CLINICAL HISTORY: Atypical chest pain. Fever. FINDINGS: An AP, portable, upright chest radiograph is compared to study dated 12/29/2018 and correlate d with chest CT dated 12/28/2018. The examination is degraded by portable technique and patient rotati on. A hiatal hernia is noted. The heart is enlarged and there is atherosclerotic calcification with u ncoiling of the thoracic aorta. There is mild pulmonary vascular congestion. There are small pleural effusions with bibasilar airspace opacities. No pneumothorax is seen. The skeletal structures are ost eopenic. The bony thorax is grossly intact. Degenerative change is seen in the shoulders and thoracic spine. Surgical clips project over the upper abdomen. IMPRESSION: 1. Cardiomegaly with evidence of mild congestive failure. 2. There are small pleural effusions with bibasilar airspace opacities. This likely represents atelec tasis. Correlate clinically for evidence of a superimposed infectious/inflammatory pneumonitis. Electronically signed by: Derek Low M.D. 12/30/2018 1:35 PM
--- NOTE | 2018-12-30 14:19 | Pharmacy Report ---
Glycemic Control Consultation - Date of Service December 30, 2018 - Scope Scope: Glycemic Pharmacist consulted by Dr [] on [date] for glycemic control and to write orders per [facility] inpatient glycemic control protocol - Objective Weight: 99.5 kg Accsergioecks BSG (last 24hrs): 12/29/18 12/29/18 12/29/18 16:32 18:45 19:44 Glucose 181 H POC Glucose 158 H 168 H 12/29/18 12/29/18 12/30/18 21:20 23:49 05:10 Glucose 249 H POC Glucose 201 H 247 H 12/30/18 12/30/18 05:53 11:47 Glucose POC Glucose 247 H 263 H Laboratory Data (last 24hrs): 12/29/18 12/30/18 19:44 05:10 Potassium 4.1 D 5.1 D Carbon Dioxide 31 26 Anion Gap 7.0 9.0 Creatinine 3.96 H D 4.49 H D Est Cr Clr Drug Dosing 14.2 12.5 - Recent Pertinent Medications Outpatient Anti-diabetic Regimen: * Detemir 20 units BID * A1c = unreliable in the setting of hemodialysis The patient is currently receiving: * Basal insulin: Lantus 20 units every 12 hours * Correctional Insulin: Novolog Correction per scale ACHS Goal Range: Low 120 mg/dL - High 180 mg/dL Correction Factor: 25 mg/dL/unit * Prandial insulin: Per carb ratio of 1 unit per 8 grams CHO consumed * Oral Agents: Risk Factors for Insulin Resistance: * Steroids: * Infection: zosyn * Pressors: * IVF: heparing drip @26 ml/hr * Recent Surgery: Post op #0 * Diet: npo * Mechanical Ventilation: - Assessment & Plan Assessment & Plan: ASSESSMENT: * Patient with type II diabetes, ESRD on dialysis TTSa schedule presented with intractable vomiting. Taken to laborer laboratory today after troponin's continued to rise. Now currently on a heparin infusion and zosyn. Currently NPO * Patient has been receiving home dose of basal insulin: determir 20 units BID, fasting BSGs remain elevated this morning, will continue current dose and consider increase if still elevated tomorrow * Patient's BSGs improved yesterday during dialysis, dialysis scheduled for tomorrow. Will tighten correction factor as BSGs remain elevated today, and adjust goal range. PLAN FOR INPATIENT GLYCEMIC CONTROL: * Holding outpatient oral diabetes medications * Basal insulin * Lantus 20 units SQ BID * Bolus insulin * NovoLog per scale ACHS or Q6hrs while NPO * Goal Range: Low 110 mg/dL - High 150 mg/dL * Correction Factor: 20 mg/dL/unit * Nutritional / Prandial insulin per carb ratio of 1 unit per 8 grams CHO consumed * Please note that the plan above was derived based on current level of insulin resistance and hospital stress. These recommendations are appropriate for inpatient admission only. Plan of care upon discharge will need to be reassessed to avoid potential outpatient hypo/hyperglycemia. Thank you.
[2018-12-30] MEDS ORDERED: PHARMACY GLYCEMIC MGMT CONSULT PRN (14:24)
[2018-12-30 14:43] LABS: Lyme Ab IgG w/WB Rflx Negative (Negative); Lyme Ab IgM w/WB Rflx Negative (Negative)
--- NOTE | 2018-12-30 15:17 | Family Medicine Progress Note ---
Date of Service December 30, 2018 Assessment & Plan (1) End-stage renal disease (ESRD): Elevated troponin Troponin went upto 12 this am Echo showing severely reduced EF (20-25%) with wall motion hypo to akinetic wall motion of right and left ventricles except for the basal aspects. (Roman difference to recent echo from earlier in the year showing EF of 55% Underwent [facility] - normal coronary arteries. Patient appears to have some sort of nonischemic cardiomyopathy myocarditis vs takutsubo vs lyme myocarditis. Ordered lyme antibodies On Beta ramesh, ASA 81 and statin Fever/Elevated WBC Blood cultures pending Empiric antibiotic - zosyn Nausea/vomiting/abdominal pain Patient's pain returned today along with dry retching - Pain epigastric and central and radiates directly to her back No evidence of Aortic dissection on imaging, no evidence for pancreatitis on labs CT abdomen pelvis with contrast ordered continue to monitor her for abdominal pain, nausea, and vomiting currently on ondansetron 4 mg q4 hours promethazine 12.5 mg q4 hours and Dilaudid prn. d/c dilauded to avoid exacerbating nausea GI consulted - further input post [facility] awaited End Stage Renal Disease Hyperkalemia with EKG changes on admission - resolved Patient received dialysis and electrolytes normalized - Due for dialysis tomorrow morning, patient needed CT scan with contrast and cardiac catheterization which could further injure her already damaged kidneys. Hypoxemia Patient on 2 L nasal cannula, and speaking to the daughter it appears that she wears her oxygen at home sporadically but is supposed to wear 2-3 L all the time. We will hold albuterol inhalers at this time as patient is not wheezing and do not want to affect intravascular potassium concentration No concerns with breathing or actuation status at this time patient is at baseline Depression We will assess as mental status improves F/E/N: Heart healthy diet as tolerated DVT PPx: Heparin Dispo: PCU (2) Fever: (3) Elevated troponin: (4) Cardiomyopathy: Supervising Physician Co-Signing Physician Notes Resident Physician Supervision Note: I independently interviewed and examined the patient and verified the bergeron history and physical, reviewed labs and image studies, discussed the case with the resident Dr. Harden and agree with the findings and care plan. Subjective Patient resting in bed very tired and somnolent today. She gets out of breath while she speaks to meShe continues to endorse abdominal pain and nausea, she has not had any vomiting but large amounts of dry heaving. Discussed her rising troponin level and benefit of catheterization. She denies brynn chest pain but does say that the pain in her upper abdomen radiates directly to her back all the way through to use her words. She does not endorse any palpitations lightheadedness cough fever chills diarrhea or leg pain Review of Systems Review of Systems: All systems reviewed & are unremarkable except as noted in HPI & below Physical Exam Physical Exam: Constitutional: 73-year-old woman lying in bed appears unwell and uncomfortable Eyes: Extraocular muscles intact bilaterally pupils equal round reactive to light, anicteric sclerae ENMT: Face symmetric, tongue and uvula midline, sensation intact to face oropharynx normal Neck: Nontender no masses detected Respiratory: Chest expansion symmetric, lung sounds vesicular bilaterally no added auscultation noises Cardiovascular: Regular rate and rhythm no murmurs rubs skips or gallops peripheral pulses strong and intact edema present lower limb Gastrointestinal: Abdomen soft yet very tender worse in epigastric region no mass detected Skin: No rashes warm dry Neuro: Cranial nerves II through XII tested and intact Results & Data Vital Signs (Past 12 Hours) Vital Signs Temp Pulse Pulse Resp BP BP BP 12/30/18 14:31 85 15 12/30/18 14:30 86 16 167/86 H 12/30/18 14:15 87 16 12/30/18 14:01 89 15 12/30/18 14:00 88 16 170/87 H 12/30/18 13:46 93 H 16 12/30/18 13:45 93 H 16 170/83 H 12/30/18 13:31 91 H 16 12/30/18 13:30 92 H 17 182/92 H 12/30/18 13:16 91 H 14 12/30/18 13:15 90 15 177/85 H 12/30/18 13:01 95 H 17 12/30/18 13:00 95 H 17 174/91 H 12/30/18 12:46 95 H 20 12/30/18 12:45 94 H 17 181/92 H 12/30/18 12:31 94 H 16 181/92 H 12/30/18 12:30 95 H 16 171/89 H 12/30/18 12:16 95 H 17 12/30/18 12:15 94 H 16 186/98 H 12/30/18 12:01 92 H 17 12/30/18 12:00 95 H 18 198/89 H 12/30/18 11:51 94 H 12/30/18 11:46 92 H 16 12/30/18 11:45 37.4 C 98 H 21 185/101 H 12/30/18 11:43 37.3 C 95 H 20 166/114 H 12/30/18 07:46 36.5 C 94 H 18 184/98 H 12/30/18 03:40 36.7 C 94 H 17 170/99 H Pulse Ox 12/30/18 14:31 97 12/30/18 14:30 98 12/30/18 14:15 99 12/30/18 14:01 98 12/30/18 14:00 98 12/30/18 13:46 98 12/30/18 13:45 98 12/30/18 13:31 99 12/30/18 13:30 99 12/30/18 13:16 99 12/30/18 13:15 98 12/30/18 13:01 97 12/30/18 13:00 97 12/30/18 12:46 96 12/30/18 12:45 94 12/30/18 12:31 96 12/30/18 12:30 95 12/30/18 12:16 12/30/18 12:15 12/30/18 12:01 98 12/30/18 12:00 98 12/30/18 11:51 12/30/18 11:46 96 12/30/18 11:45 97 12/30/18 11:43 96 12/30/18 07:46 95 12/30/18 03:40 95 PG Care Time/CCT Total # of Minutes Spent Total Time Spent with Patient: Total time spent is greater than 50% in coordination of care (as documented) at patient's floor/unit and/or counseling patient: Resident Activity Tracking Resident Involvement: Resident Care Provided Care Provided: Adult Hospital Medicine
[2018-12-30] MEDS ORDERED: IOVERSOL 100ml IV PRN (15:32)
--- NOTE | 2018-12-30 15:57 | CT Scan Report ---
ABDOMEN AND PELVIS CT WITH IV CONTRAST CT DOSE: 1460.66 mGy.cm HISTORY: Acute generalized abdominal pain with nausea abdominal pain, nausea, WITH ONLY PER DR. BRANDO CALI () TECHNIQUE: Multiaxial CT images of the abdomen and pelvis were performed following the use of intrave nous contrast. A dose lowering technique was utilized adhering to the principles of ALARA. COMPARISON STUDY: CT abdomen and pelvis 12/28/2018. FINDINGS: Study is mildly motion degraded. Small bilateral pleural effusions have increased in size from compar vicente. Progressive bibasilar dependent consolidation and bibasilar intralobular septal thickening. No pneumatosis or pneumoperitoneum. The imaged inferior cardiac chambers are enlarged. Dense mitral yanely lar calcifications. No pericardial effusion. Mild gallbladder distention without cholelithiasis or bi liary ductal dilation. There is minimal stranding about the clemente hepatis and gallbladder fundus with equivocal gallbladder wall thickening. Prominent periportal and precaval lymph nodes nodes are seen measuring up to 9 mm. Spleen, pancreas and right adrenal gland are unremarkable. Unchanged 2.3 cm les ion of the left adrenal gland compatible with adenoma. Liver appears unremarkable. Atrophic morphology of the left kidney. Bilateral renal cortical thinning. No definite renal or urete ral calculi. Partial distention of the bladder with mild wall thickening. Focus of air noted within t he nondependent urinary bladder. Surgically absent uterus. No adnexal mass lesions. Mixed plaque form ation of the abdominal aorta without aneurysm. No adenopathy. Debris-filled moderate sized hiatal hernia. Postoperative changes are noted about the gastroesophagea l junction. No bowel obstruction. Colonic diverticulosis without acute diverticulitis. Terminal ileum is unremarkable. Appendix not diagnostically visualized. Small fat filled periumbilical hernia. Mild body wall edema. Degenerative changes of the spine, pelvis and hips. The bones appear intact. IMPRESSION: 1. No bowel obstruction or bowel wall thickening. 2. Mild gallbladder distention with trace nonspecific edema noted about the gallbladder fundus and po rta hepatis. Findings could be further evaluated with right upper quadrant ultrasound if clinically i ndicated. 3. Partial distention of the urinary bladder with mild wall thickening. Correlate with urinalysis. 4. Colonic diverticulosis without acute diverticulitis. 5. Cardiomegaly with increased size of the bilateral pleural effusions with progressive dependent bib asilar consolidation. Additionally, there is intralobular septal suspicious for pulmonary edema. 6. Moderate-sized debris-filled hiatal hernia. 7. Additional findings as above. Electronically signed by: Odilon Oro M.D. 12/30/2018 3:55 PM
[2018-12-30] MEDS: LEVOTHYROXINE SODIUM 100 MCG TABLET PO SCH (20:28)
[2018-12-30] MEDS: CITALOPRAM 20 MG TAB PO SCH (20:28)
[2018-12-30] MEDS: GABAPENTIN 300 MG CAP PO SCH (20:28)
[2018-12-30] MEDS ORDERED: PANTOprazole 40 MG TAB PO SCH (21:00)
[2018-12-30] MEDS ORDERED: INSULIN DETEMIR FLEXPEN/FLEX TOUCH 100 UNITS/ML 3ML SC ONE (21:00)
[2018-12-31] MEDS: INSULIN ASPART 100 UNITS/ML 3 ML PEN SC SCH ×4 (00:44→18:23)
[2018-12-31] MEDS: PIPERACILLIN/TAZOBACTAM 4.5 GM in DEXTROSE 5% 100 ML IV SCH ×2 (03:55→15:26)
[2018-12-31 04:46] LABS: Hematocrit (blood only) 32.8 % (37-47); Hemoglobin 10.4 g/dL (12.0-16.0); Mean Corpuscular Hgb Conc 31.7 g/dL (32-36); Mean Corpuscular Volume 102.5 fL (80-100); Nucleated RBC # (auto) 0.06 K/uL (0-0); Nucleated RBC % (auto) 0.5 %; Platelet Count 172 K/uL (130-400); RDW Coefficient of Variation 14.8 % (11.5-14.5); RDW Standard Deviation 54.7 fL (36.4-46.3); White Blood Count 12.68 K/uL (4.8-10.8)
[2018-12-31 05:21] LABS: BUN Creatinine Ratio 7.3 (10-20); Calcium 8.6 mg/dl (8.5-10.1); Creatinine Clr Calc Pharmacy 9.9 ml/min; Est GFR (African American) 7.9; Est GFR (Non-African American) 6.8; Potassium 4.6 mmol/L (3.5-5.1)
[2018-12-31] MEDS: HEPARIN SOD 5,000 UNIT/0.5 ML VIAL SQ SCH ×3 (06:09→20:58)
[2018-12-31] MEDS ORDERED: SODIUM CHLORIDE 0.9% 1000ML 1,000 ML IV PRN (07:00)
--- NOTE | 2018-12-31 07:34 | Cardiology Progress Note ---
Date of Service December 31, 2018 Assessment & Plan (1) Abdominal pain, epigastric: Although she has a long history of abdominal discomfort which has been attributed to esophageal disease I was concerned that this was due to ischemic heart disease. Her catheterization suggest that this is not the case, it is conceivable that she has some type of myocarditis which could cause discomfort but I do not think it would be intermittent. I believe her abdominal discomfort is indeed GI in origin. (2) Elevated troponin: Her troponin has gradually increased, This suggests myocardial injury, possibly a Takatsubo type abnormality. I would like to continue to follow troponins periodically to see whether there is ongoing injury. It is not due to an ischemic event due to fixed coronary disease. (3) LBBB (left bundle branch block): She has a left bundle branch block which has not changed during her hospitalization. (4) Cardiomyopathy: She has severe left ventricular dysfunction which is a new finding. I would treat this with heart failure medications, especially beta-blockade. Her blood pressure remains elevated and her heart rate is not low, I am going to in crease her carvedilol to 25 mg twice a day starting this morning. Perhaps we can start YOUSIF inhibitors as well, I will leave that up to the primary service. We will need to follow this as an outpatient if she goes home in the near future, if she remains in the hospital I would repeat the echo this coming week. Subjective She is feeling about the same, she continues to have difficulty with epigastric discomfort. She has had no difficulty following catheterization. She has no orthopnea or PND. Physical Exam Physical Exam: Constitutional: Alert, cooperative and in no distress. Pulmonary: Clear to auscultation bilaterally. Cardiac: Regular rhythm with no murmur, gallop or rub. Abdomen: Soft, nontender with normal bowel sounds. Extremities: No edema. Right-sided dialysis graft. Skin: No rash, ecchymoses or petechiae. Results & Data Vital Signs (Past 12 Hours) Vital Signs Temp Pulse Resp BP BP Pulse Ox 12/31/18 07:05 37.0 C 83 19 161/78 H 94 12/31/18 03:46 37.0 C 85 19 148/83 H 94 12/31/18 00:02 37.1 C 79 19 111/69 95 12/30/18 20:08 37.5 C 89 20 187/87 H 95 Laboratory Results Abnormal lab results 12/30/18 12/30/18 12/30/18 Range/Units 07:43 11:47 17:50 WBC 17.81 H (4.8-10.8) K/uL RBC 3.51 L (4.2-5.4) M/uL Hgb 11.2 L (12.0-16.0) g/dL Hct 35.7 L (37-47) % MCV 101.7 H (80-100) fL MCHC 31.4 L (32-36) g/dL RDW Std Deviation 54.1 H (36.4-46.3) fL RDW Coeff of Jared 14.7 H (11.5-14.5) % Immature Gran # (Auto) 0.11 H (0.00-0.02) K/uL Neut # (Auto) 15.58 H (1.4-6.5) K/uL Lymph # (Auto) 1.10 L (1.2-3.4) K/uL [place] # (Auto) 1.00 H (0.11-0.59) K/uL Absolute Nucleated RBC (0-0) K/uL Sodium (136-145) mmol/L BUN (7-18) mg/dl Creatinine (0.6-1.2) mg/dl BUN/Creatinine Ratio (10-20) Glucose (70-99) mg/dl POC Glucose 263 H 210 H (70-99) 12/30/18 12/31/18 12/31/18 Range/Units 20:56 00:01 04:27 WBC (4.8-10.8) K/uL RBC (4.2-5.4) M/uL Hgb (12.0-16.0) g/dL Hct (37-47) % MCV (80-100) fL MCHC (32-36) g/dL RDW Std Deviation (36.4-46.3) fL RDW Coeff of Jared (11.5-14.5) % Immature Gran # (Auto) (0.00-0.02) K/uL Neut # (Auto) (1.4-6.5) K/uL Lymph # (Auto) (1.2-3.4) K/uL [place] # (Auto) (0.11-0.59) K/uL Absolute Nucleated RBC (0-0) K/uL Sodium 134 L (136-145) mmol/L BUN 42 H D (7-18) mg/dl Creatinine 5.70 H* D (0.6-1.2) mg/dl BUN/Creatinine Ratio 7.3 L (10-20) Glucose 168 H (70-99) mg/dl POC Glucose 220 H 178 H (70-99) 12/31/18 12/31/18 Range/Units 04:27 06:08 WBC 12.68 H (4.8-10.8) K/uL RBC 3.20 L (4.2-5.4) M/uL Hgb 10.4 L (12.0-16.0) g/dL Hct 32.8 L (37-47) % MCV 102.5 H (80-100) fL MCHC 31.7 L (32-36) g/dL RDW Std Deviation 54.7 H (36.4-46.3) fL RDW Coeff of Jared 14.8 H (11.5-14.5) % Immature Gran # (Auto) (0.00-0.02) K/uL Neut # (Auto) (1.4-6.5) K/uL Lymph # (Auto) (1.2-3.4) K/uL [place] # (Auto) (0.11-0.59) K/uL Absolute Nucleated RBC 0.06 H (0-0) K/uL Sodium (136-145) mmol/L BUN (7-18) mg/dl Creatinine (0.6-1.2) mg/dl BUN/Creatinine Ratio (10-20) Glucose (70-99) mg/dl POC Glucose 210 H (70-99) Diagnostic Findings Catheterization yesterday showed no significant coronary artery disease to explain her cardiomyopathy. PG Care Time/CCT Total # of Minutes Spent Total Time Spent with Patient: Total time spent is greater than 50% in coordination of care (as documented) at patient's floor/unit and/or counseling patient:
[2018-12-31] MEDS: FAMOTIDINE 20 MG in SYRINGE 3 ML IV SCH ×2 (08:31→20:58)
[2018-12-31] MEDS: ACETAMINOPHEN 325 MG TAB PO PRN (08:31)
[2018-12-31] MEDS: SODIUM CHLORIDE 0.9% 1000ML 1,000 ML IV SCH (08:31)
[2018-12-31] MEDS: SUCRALFATE 1 GM/10 ML UDC PO SCH ×4 (08:33→20:57)
[2018-12-31] MEDS: PANTOprazole 40 MG TAB PO SCH ×2 (08:34→20:58)
[2018-12-31] MEDS: ASPIRIN 81 MG ECTAB PO SCH (08:34)
[2018-12-31] MEDS: MAGNESIUM OXIDE 400 MG TAB PO SCH (08:34)
[2018-12-31] MEDS ORDERED: INSULIN DETEMIR FLEXPEN/FLEX TOUCH 100 UNITS/ML 3ML SC SCH (09:00)
[2018-12-31] MEDS: ONDANSETRON INJ 2 MG/ML 2 ML VIAL IV PRN (09:30)
[2018-12-31] MEDS: ACETAMINOPHEN 1,000 MG/100 ML VIAL IV PRN (09:58)
--- NOTE | 2018-12-31 09:59 | Pharmacy Report ---
Glycemic Control Progress Note - Date of Service December 31, 2018 - Scope Glycemic Pharmacist consulted for glycemic control to write orders per [facility] inpatient glycemic control protocol. - Objective Accuchecks BSG(last 24 hours):: 12/30/18 12/30/18 12/30/18 11:47 17:50 20:56 Glucose POC Glucose 263 H 210 H 220 H 12/31/18 12/31/18 12/31/18 00:01 04:27 06:08 Glucose 168 H POC Glucose 178 H 210 H - Recent Pertinent Medications The patient is currently receiving: * Basal insulin: Lantus 20 units every 12 hours (actually receiving 10 units BID) * Correctional Insulin: Novolog Correction per scale ACHS Goal Range: Low 120 mg/dL - High 180 mg/dL Correction Factor: 20 mg/dL/unit * Prandial insulin: Per carb ratio of 1 unit per 8 grams CHO consumed - Outpatient Anti-Diabetic Meds Levemir 20 units BID - Assessment & Plan ASSESSMENT: * See progress note from 12/30/18 for more background info, in short: * Pt receiving SQ basal bolus insulin regimen for hyperglycemia secondary to baseline DM (outpatient regimen on hold), possible infection (currently on Zosyn) and POD 1 for heart cath. * Patient is currently receiving an average of 32 units of insulin per day * 20 units of basal insulin * 12 units of prandial/correctional insulin * BSGs ranging 178 - 263 mg/dl over the past 24hrs * Changes needed to insulin regimen: * AM Fasting BSG = 210 mg/dl. This is above goal range for patient based on inpatient targets and co-morbidities. Upon closer inspection, nursing has been receiving orders from residents to only give 10 units of Levemir BID. Total basal insulin needs appear to be around 30 units per day. Patient started on clear liquid diet today. Schedule 15 units BID with 20 units if blood sugar over 180 mg/dL. * Post-prandial BSGs have been elevated HOWEVER, it is difficult to determine the efficacy of CR with the patient not eating. Will continue these CF/CR as it correlates with a basal rate of 30 units. Have goal range set as 110- 150 mg/dL BUT comfortable with blood sugars around 160 mg/dL since patient is HD. * Total daily dose = ~60 units. PLAN FOR INPATIENT GLYCEMIC CONTROL: * Increasing Lantus to 15 units SQ BID (20 units if blood sugar over 180 mg/dL) * Continuing correction factor of 20 mg/dl/unit * Continuing carb ratio of 1 unit per 8 grams CHO consumed * Continuing goal range of Low 110 mg/dL - High 150 mg/dL RECOMMENDATIONS FOR DISCHARGE: * Patient's HbA1C cannot be adequately analyzed since she is a hemodialysis patient. Recommend close follow-up with provider to determine true glucose control. * Please note that the plan above was derived based on current level of insulin resistance and hospital stress. These recommendations are appropriate for inpatient admission only. Plan of care upon discharge will need to be reassessed to avoid potential outpatient hypo/hyperglycemia. Thank you.
--- NOTE | 2018-12-31 10:45 | Nephrology Progress Note ---
Date of Service December 31, 2018 Assessment & Plan (1) End-stage renal disease (ESRD): -- On HD TTS schedule -- Rx 4 hours, Qb 350 via AVF. 2K bath. EDW 99 kg -- HD today as per outpatient orders. HD RN notified (2) Abdominal pain: -- Persistent epigastric pain, as above. Will repeat LFT's and lipase. Await further GI input. Patient has remote h/o PUD (3) Cardiomyopathy: -- Troponin is now trending down. EKG w/ new LBBB. Cardiac cath 12/30 revealed normal coronary arteries -- TTE demonstrates LVEF 20-25% with severe global hypokinesis with sparing of the basal segment, RASP 50-60 by estimate. Subjective Mrs. Patrick was seen & examined in preparation for HD this morning. She complained of persistent epigastric abdominal discomfort w/ radiation to her back. She denies angina or dyspnea Review of Systems Constitutional: no fever, no chills and no weakness Eyes: no worsening vision and no problem reported Ear, Nose, Mouth, Throat: no problem reported Respiratory: no cough and no dyspnea Cardiovascular: no chest pain, no palpitations and no edema Gastrointestinal: + abdominal pain and + nausea; no vomiting and no diarrhea/loose stools Genitourinary: no dysuria and no hematuria Musculoskeletal: + back pain Integumentary: no rash Neurologic: no falls, no dizziness and no confusion Physical Exam Constitutional: + ill appearing and + obese Eyes: PERRL, conjunctivae normal, anicteric sclerae ENMT: external ear and nose normal, oropharynx normal Neck: trachea midline, no thyromegaly Respiratory: normal respiratory effort, lungs clear to auscultation Cardiovascular: RRR, no murmur, no edema Extremities: + AV fistula (+ bruit) Gastrointestinal (Abdomen): Inspection/Auscultation: + hypoactive bowel sounds Percussion/Palpation: abdomen soft; abdomen nontender and no guarding Musculoskeletal: no cyanosis or clubbing, extremities motor strength 5/5 Skin: no rashes, warm and dry Neurologic: awake; not confused Results & Data Vital Signs (Past 12 Hours) Vital Signs Temp Pulse Resp BP Pulse Ox 12/31/18 07:05 37.0 C 83 19 161/78 H 94 12/31/18 03:46 37.0 C 85 19 148/83 H 94 12/31/18 00:02 37.1 C 79 19 111/69 95 Laboratory Results Laboratory Tests 12/31/18 12/31/18 12/31/18 04:27 04:27 04:27 WBC 12.68 H Hgb 10.4 L Hct 32.8 L Plt Count 172 Sodium 134 L Potassium 4.6 Chloride 100 Carbon Dioxide 25 BUN 42 H D Creatinine 5.70 H* D Glucose 168 H Troponin I 7.640 H* PG Care Time/CCT Total # of Minutes Spent Total Time Spent with Patient: Total time spent is greater than 50% in coordination of care (as documented) at patient's floor/unit and/or counseling patient:
[2018-12-31] MEDS: CARVEDILOL 25 MG TAB PO SCH ×2 (15:09→20:57)
[2018-12-31] MEDS: HYDROmorphone INJ 0.5 MG/0.5 ML SYR IV PRN (15:26)
--- NOTE | 2018-12-31 15:39 | Family Medicine Progress Note ---
Date of Service December 31, 2018 Assessment & Plan (1) Abdominal pain, epigastric: Ms. Patrick is a 73-year-old female with a past medical history of end- stage renal disease, on dialysis, chronic CHF chronic anemia, hypothyroidism, hyperlipidemia, depression and anxiety who presented to [facility] due to epigastric pain, nausea and vomiting. She was admitted for bowel rest and IV antiemetics, and found to have an elevated troponin. Elevated Troponin with normal coronaries on [facility] Nonischemic cardiomyopathy -Patient has a history of chronically elevated troponin secondary to coronary artery disease and chronic renal disease -New spike this admission, with a peak of 12.6, and currently downtrending - ECHO showed severely reduced EF (20-25%) with wall motion hypo to akinetic wall motion of right and left ventricles except for the basal aspects. (Roman difference to recent echo from earlier in the year showing EF of 55%) - Cardiology was consulted -> Patient underwent a cardiac catheterization, where she was found to have normal coronary arteries. - Patient appears to have some sort of nonischemic cardiomyopathy -> myocarditis vs takutsubo vs lyme myocarditis. - Lyme antibodies negative, most likely diagnosis is Takotsubo cardiomyopathy - Continue increased dose of carvedilol, daily aspirin and atorvastatin Nausea/vomiting/abdominal pain - Patient has a history of chronic GERD, as well as dysphagia. She has had ongoing nausea, vomiting and epigastric pain since the removal of a silicone ring that was placed during a prior hiatal hernia repair - Patient continues to have epigastric pain that radiates to her back, but reports that this feels improved from yesterday - Patient has a history of peptic ulcer disease, and reports that this pain feels similar to her prior episodes of PUD - No evidence of aortic dissection on imaging, no evidence for pancreatitis on labs - CT abdomen/pelvis -> mild gallbladder distention with edema. Partial distention of urinary bladder with mild wall thickening. -> Patient states that she had her gallbladder removed in the past. Will order a right upper quadrant ultrasound to further investigate -> Check LFTs tomorrow, they were normal upon her admission - Continue 20 mg IV famotidine twice daily and pantoprazole 40 mg twice daily for suspected PUD/gastritis - Continue ondansetron 4 mg prn every 4 hours and promethazine 12.5 mg every 4 hours prn - GI consulted, however did not want to do a scope given abnormal findings on echocardiogram - currently remains NPO given unable to tolerate clears. Anticipate EGD on wednesday - will update GI. Fever, leukocytosis -Patient spiked a fever of 38.1 C on 12/29 -Patient was placed on Zosyn, and has been afebrile since -Unsure of source of infection at this time. Patient had leukocytosis up to 17.8, this is slowly resolving -No evidence of pneumonia or skin infection -We will continue Zosyn to cover for possible abdominal infection versus UTI (UA with pinpoint growth, and evidence of bladder inflammation on CT) -Blood cultures negative x24 hours End Stage Renal Disease -Patient was admitted with hyperkalemia and EKG changes, this has now resolved -Nephrology consulted, currently managing hemodialysis. Receiving hemodialysis on Wednesday, , Wednesday -Daily BMPs, no significant electrolyte abnormalities noted today -Caution w/IVF given ESRD Hypoxemia -Patient meant to wear 2 L of oxygen at home [id number]. She is currently saturating well on 2 L of oxygen by nasal cannula here -CT showed bilateral pleural effusions, as well as pulmonary edema, however patient is at her baseline with regards to breathing -Continue to monitor Depression -Continue home citalopram Hypothyroidism -Continue home levothyroxine Neuropathy -Continue home gabapentin F/E/N: Advanced diet to clears when patient able to tolerate. Currently n.p.o. DVT PPx: Heparin 5000 units SQ 3 times daily Dispo: PCU (2) Fever: (3) Elevated troponin: (4) End-stage renal disease (ESRD): Supervising Physician Co-Signing Physician Notes Resident Physician Supervision Note: I independently interviewed and examined the patient and verified the bergeron history and physical, reviewed labs and image studies, discussed the case with the resident Dr. Hutchins and agree with the findings and care plan. Subjective Ms. Patrick reports a slight improvement in her abdominal pain. She has not had any episodes of vomiting. She states that she would like to try some liquids. She denies any chest pain, or shortness of breath. She has no other complaints today. Review of Systems Constitutional: + anorexia; no fever and no chills Cardiovascular: no chest pain, no palpitations, no edema and no calf pain Gastrointestinal: + abdominal pain; no nausea, no vomiting and no change in bowel habits Physical Exam Constitutional: WD/WN, vitals as above no acute distress ENMT: external ear and nose normal, oropharynx normal Respiratory: normal respiratory effort, lungs clear to auscultation Cardiovascular: RRR, no murmur, no edema Gastrointestinal (Abdomen): Percussion/Palpation: + abdomen tender (Tender in epigastric region) and abdomen soft; no guarding and abdomen not rigid Results & Data Vital Signs (Past 12 Hours) Vital Signs Temp Pulse Pulse Resp BP BP Pulse Ox 12/31/18 14:28 36.6 C 77 143/78 H 12/31/18 14:20 91 H 154/79 H 12/31/18 14:00 79 129/76 12/31/18 13:40 79 127/77 12/31/18 13:19 78 151/84 H 12/31/18 13:00 78 145/83 H 12/31/18 12:40 80 158/84 H 12/31/18 12:20 80 144/82 H 12/31/18 12:00 78 151/78 H 12/31/18 11:40 78 146/79 H 12/31/18 11:20 78 157/82 H 12/31/18 11:00 83 171/88 H 12/31/18 10:40 80 160/84 H 12/31/18 10:21 85 171/92 H 12/31/18 10:20 37.0 C 82 12/31/18 07:05 37.0 C 83 19 161/78 H 94 12/31/18 03:46 37.0 C 85 19 148/83 H 94 PG Care Time/CCT Total # of Minutes Spent Total Time Spent with Patient: Total time spent is greater than 50% in coordination of care (as documented) at patient's floor/unit and/or counseling patient: Resident Activity Tracking Resident Involvement: Resident Care Provided Care Provided: Adult Hospital Medicine
[2018-12-31] MEDS: CITALOPRAM 20 MG TAB PO SCH (20:57)
[2018-12-31] MEDS: GABAPENTIN 300 MG CAP PO SCH (20:58)
[2018-12-31] MEDS: LEVOTHYROXINE SODIUM 100 MCG TABLET PO SCH (20:58)
[2018-12-31] MEDS: ATORVASTATIN 20 MG TAB PO SCH (20:58)
[2018-12-31] MEDS: INSULIN DETEMIR FLEXPEN/FLEX TOUCH 100 UNITS/ML 3ML SC SCH (20:59)
--- NOTE | 2018-12-31 22:59 | Ultrasound Report ---
US abdomen limited HISTORY: 73 years-old Female eval gb distention, abdo pain acute right upper quadrant abdominal pain COMPARISON: CT abdomen and pelvis 12/30/2018 TECHNIQUE: Multiple real time sonographic images of the abdominal right upper quadrant were obtained assessing grayscale appearance and color flow FINDINGS: Pancreas is obscured by bowel gas. Right pleural effusion redemonstrated. Liver is unremarkable witho ut intrahepatic biliary ductal dilation or focal mass. Gallbladder is mildly distended without wall t hickening, cholelithiasis or pericholecystic fluid. Common bile duct measures 8 mm which is upper will its of normal in size. Cortical thinning of the right kidney with increased echogenicity suggestive c hronic medical renal disease with mild atrophy. IMPRESSION: 1. No cholelithiasis or sonographic evidence of acute cholecystitis. 2. Mildly atrophic right kidney redemonstrated. The above report was generated using voice recognition software. It may contain grammatical, syntax o r spelling errors. Electronically signed by: Odilon Oro M.D. 12/31/2018 10:56 PM
[2019-01-01] MEDS: INSULIN ASPART 100 UNITS/ML 3 ML PEN SC SCH ×5 (00:05→23:58)
[2019-01-01] MEDS: PIPERACILLIN/TAZOBACTAM 4.5 GM in DEXTROSE 5% 100 ML IV SCH ×2 (05:10→16:36)
[2019-01-01] MEDS: HYDROmorphone INJ 0.5 MG/0.5 ML SYR IV PRN (05:23)
[2019-01-01] MEDS: HEPARIN SOD 5,000 UNIT/0.5 ML VIAL SQ SCH ×3 (05:27→22:07)
[2019-01-01 07:23] LABS: Hematocrit (blood only) 30.2 % (37-47); Hemoglobin 9.3 g/dL (12.0-16.0); Mean Corpuscular Hgb Conc 30.8 g/dL (32-36); Mean Corpuscular Volume 101.3 fL (80-100); Mean Platelet Volume 10.3 fL (7.4-10.4); Platelet Count 164 K/uL (130-400); RDW Coefficient of Variation 14.9 % (11.5-14.5); RDW Standard Deviation 54.8 fL (36.4-46.3); Red Blood Count 2.98 M/uL (4.2-5.4); White Blood Count 7.96 K/uL (4.8-10.8)
[2019-01-01 08:05] LABS: Albumin Globulin Ratio 0.7 (0.9-2); Albumin Level 2.9 gm/dl (3.4-5.0); BUN Creatinine Ratio 6.9 (10-20); Bilirubin,Total 0.4 mg/dl (0.2-1); Calcium 8.1 mg/dl (8.5-10.1); Creatinine Clr Calc Pharmacy 11.6 ml/min; Est GFR (African American) 9.6; Est GFR (Non-African American) 8.3; Potassium 4.2 mmol/L (3.5-5.1); Total Protein 6.9 gm/dl (6.4-8.2)
[2019-01-01] MEDS: SUCRALFATE 1 GM/10 ML UDC PO SCH ×4 (08:57→22:01)
[2019-01-01] MEDS: FAMOTIDINE 20 MG in SYRINGE 3 ML IV SCH ×2 (08:57→22:02)
[2019-01-01] MEDS: ASPIRIN 81 MG ECTAB PO SCH (08:58)
[2019-01-01] MEDS: PANTOprazole 40 MG TAB PO SCH ×2 (08:58→22:03)
[2019-01-01] MEDS: CARVEDILOL 25 MG TAB PO SCH ×2 (08:58→22:02)
[2019-01-01] MEDS: MAGNESIUM OXIDE 400 MG TAB PO SCH (08:58)
--- NOTE | 2019-01-01 09:01 | Pharmacy Report ---
Pharmacy Glycemic Short Note 2 - Date of Service January 01, 2019 - Glycemic Short BSG Results (Last 24 hours): 12/31/18 12/31/18 12/31/18 14:34 18:06 20:15 Glucose POC Glucose 133 H 123 H 105 H 01/01/19 01/01/19 01/01/19 00:03 06:06 06:49 Glucose 94 POC Glucose 102 H 98 OUTPATIENT ANTIDIABETIC REGIMEN: * Levemir 20 units BID ASSESSMENT: * POD 2 cardiac cath, pt remains on Zosyn, started 12/29 for fever and leukocytosis, both resolving, continuing for possible UTI vs ab infx, Blood cultures negative. * Fasting BSG 98mg/dl - will decrease basal as pt remains NPO and to prevent hypoglycemia. * Pt remains NPO given unable to tolerate clears. * GI consulted, however did not want to do a scope given abnormal findings on echocardiogram, anticipate EGD Wednesday PLAN FOR INPATIENT GLYCEMIC CONTROL: * DECREASE: Basal insulin * Lantus SQ BID * 12 units for BSG < 180mg/dl * 16 units for BSG 180mg/dl or greater * Bolus insulin * NovoLog per scale ACHS or Q6hrs while NPO * Goal Range: Low 110 mg/dL - High 150 mg/dL * Correction Factor: 20 mg/dL/unit * Nutritional / Prandial insulin per carb ratio of 1 unit per 8 grams CHO consumed PLAN FOR DISCHARGE: * HD pt * Patient's A1c = 6.0% * However, this result is likely somewhat unreliable in ESRD patients d/t interactions between the A1c analyzing technique and high levels of urea in ESRD, reduced RBC life span, iron deficiency anemia, and EPO administration. * Recommend SMBG as outpatient
[2019-01-01] MEDS: INSULIN DETEMIR FLEXPEN/FLEX TOUCH 100 UNITS/ML 3ML SC SCH ×2 (09:04→20:55)
--- NOTE | 2019-01-01 10:19 | Nephrology Progress Note ---
Date of Service January 01, 2019 Assessment & Plan (1) End-stage renal disease (ESRD): -- On HD TTS schedule (4 hours, Qb 350 via AVF. 2K bath. EDW 99 kg) -- Volume status & electrolyte balance acceptable. No acute indication for HD at this time (2) Abdominal pain: -- Persistent epigastric pain. LFT's & lipase are normal. RUQ US negative for cholecystitis -- Patient scheduled for EGD tomorrow (3) Cardiomyopathy: -- Troponin is now trending down. EKG w/ new LBBB. Cardiac cath 12/30 revealed normal coronary arteries -- TTE demonstrates LVEF 20-25% with severe global hypokinesis with sparing of the basal segment, RASP 50-60 by estimate. Subjective Mrs. Patrick was seen & examined in her hospital room this morning. Her was present at bedside. Mrs. Patrick was dialyzed yesterday without complication. She reports that her abdominal discomfort is mildly improved. She is scheduled for an EGD in am Review of Systems Constitutional: no fever, no chills and no weakness Eyes: no worsening vision and no problem reported Ear, Nose, Mouth, Throat: no problem reported Respiratory: no cough and no dyspnea Cardiovascular: no chest pain, no palpitations and no edema Gastrointestinal: + abdominal pain and + nausea; no vomiting and no diarrhea/loose stools Genitourinary: no dysuria and no hematuria Musculoskeletal: + back pain Integumentary: no rash Neurologic: no falls, no dizziness and no confusion Physical Exam Constitutional: + ill appearing and + obese Eyes: PERRL, conjunctivae normal, anicteric sclerae ENMT: external ear and nose normal, oropharynx normal Neck: trachea midline, no thyromegaly Respiratory: normal respiratory effort, lungs clear to auscultation Cardiovascular: RRR, no murmur, no edema Extremities: + AV fistula (+ bruit) Gastrointestinal (Abdomen): Inspection/Auscultation: + hypoactive bowel sounds Percussion/Palpation: abdomen soft; abdomen nontender and no guarding Musculoskeletal: no cyanosis or clubbing, extremities motor strength 5/5 Skin: no rashes, warm and dry Neurologic: awake; not confused Results & Data Vital Signs (Past 12 Hours) Vital Signs Temp Pulse Pulse Resp BP Pulse Ox 01/01/19 07:47 36.9 C 66 18 125/69 97 08/04/19 03:41 36.7 C 70 18 95/57 L 97 01/01/19 03:15 72 12/31/18 22:59 36.8 C 82 18 114/52 L 94 Laboratory Results Laboratory Tests 01/01/19 01/01/19 06:49 06:49 WBC 7.96 Hgb 9.3 L Hct 30.2 L Plt Count 164 Sodium 134 L Potassium 4.2 Chloride 100 Carbon Dioxide 25 BUN 33 H Creatinine 4.84 H* D Glucose 94 Total Bilirubin 0.4 AST 16 ALT 14 Alkaline Phosphatase 73 Lipase 83 PG Care Time/CCT Total # of Minutes Spent Total Time Spent with Patient: Total time spent is greater than 50% in coordination of care (as documented) at patient's floor/unit and/or counseling patient:
--- NOTE | 2019-01-01 12:53 | Family Medicine Progress Note ---
Date of Service January 01, 2019 Assessment & Plan (1) End-stage renal disease (ESRD): Ms. Patrick is a 73-year-old female with a past medical history of end- stage renal disease, on dialysis, chronic CHF chronic anemia, hypothyroidism, hyperlipidemia, depression and anxiety who presented to [facility] due to epigastric pain, nausea and vomiting. She was admitted for bowel rest and IV antiemetics, and found to have an elevated troponin. Acute MT - normal coronaries on [facility] Nonischemic cardiomyopathy -Patient has a history of chronically elevated troponin secondary to coronary artery disease and chronic renal disease -New spike this admission, with a peak of 12.6 - ECHO showed severely reduced EF (20-25%) with wall motion hypo to akinetic wall motion of right and left ventricles except for the basal aspects. (Roman difference to recent echo from earlier in the year showing EF of 55%) - Cardiology was consulted -> Patient underwent a cardiac catheterization, where she was found to have normal coronary arteries. - Patient appears to have a nonischemic cardiomyopathy -> myocarditis vs takutsubo vs lyme myocarditis. - Lyme antibodies negative, most likely diagnosis is Takotsubo cardiomyopathy - Continue increased dose of carvedilol, daily aspirin and atorvastatin Nausea/vomiting/abdominal pain - Patient has a history of chronic GERD, as well as dysphagia. She has had ongoing nausea, vomiting and epigastric pain since the removal of a silicone ring that was placed during a prior hiatal hernia repair - Patient continues to have epigastric pain that radiates to her back. She states that generally when she has these episodes, they resolved with a PPI. She states that this is the longest episode that she has had with unrelenting abdominal pain and nausea. - No evidence of aortic dissection on imaging, no evidence for pancreatitis on labs - CT abdomen/pelvis -> mild gallbladder distention with edema. Partial distention of urinary bladder with mild wall thickening. -> Follow-up right upper quadrant ultrasound showed gallbladder distention, however no inflammation -> LFTs within normal limits - Continue 20 mg IV famotidine twice daily and pantoprazole 40 mg twice daily - GI has been consulted initially, however deferred a scope given findings on ECG and echo. Will discuss with GI once again, as patient has failed to improve on conservative measures. May require an EGD, as patient is now stable from a cardiovascular point of view - Continue ondansetron 4 mg prn every 4 hours and promethazine 12.5 mg every 4 hours prn -> she has not required this today -Dilaudid 0.25 mg IV every 4 hours as needed for abdominal pain - currently remains NPO given unable to tolerate clears. Fever, leukocytosis -Patient spiked a fever of 38.1 C on 12/29 -Patient was placed on Zosyn, and has been afebrile since -Unsure of source of infection at this time. Patient had leukocytosis up to 17.8, this is slowly resolving and has returned back to normal today -No evidence of pneumonia or skin infection -We will continue Zosyn to cover for possible abdominal infection versus UTI (UA with > 3 organisms, and evidence of bladder inflammation on CT) -Will reorder UA to further evaluate -Blood cultures negative x48 hours End Stage Renal Disease -Patient was admitted with hyperkalemia and EKG changes, this has now resolved -Nephrology consulted, currently managing hemodialysis. Receiving hemodialysis on Wednesday, , Wednesday -Daily BMPs, no significant electrolyte abnormalities noted today -Caution w/IVF given ESRD Hypertension -Home hydralazine held, due to low blood pressures with uptitrating of carvedilol Chronic respiratory failure -Patient meant to wear 2 L of oxygen at home [id number]. She is currently saturating well on 2 L of oxygen by nasal cannula here -CT showed bilateral pleural effusions, as well as pulmonary edema, however patient is at her baseline with regards to breathing -Continue to monitor Depression -Continue home citalopram Hypothyroidism -Continue home levothyroxine Neuropathy -Continue home gabapentin F/E/N: Advance diet to clears when patient able to tolerate. Currently n.p.o. DVT PPx: Heparin 5000 units SQ 3 times daily Dispo: Remains on PCU (2) Fever: (3) Cardiomyopathy: (4) LBBB (left bundle branch block): (5) Abdominal pain, epigastric: (6) Elevated troponin: (7) Vomiting: (8) Hernia, hiatal: (9) Poorly-controlled hypertension: (10) Depression with anxiety: (11) Dyslipidemia: (12) Dysphagia: (13) GERD without esophagitis: Supervising Physician Co-Signing Physician Notes Resident Physician Supervision Note: I independently interviewed and examined the patient and verified the bergeron his tory and physical, reviewed labs and image studies, discussed the case with the resident Dr. Higuera and agree with the findings and care plan. Subjective Ms. Patrick reports that she remains with abdominal pain today. She states that she needed to use her IV Dilaudid once overnight to help with the pain. She states it is still over her epigastric region, and gets significantly worse after she eats. She has not had any recent episodes of vomiting. She is able to tolerate ice chips well. She denies any chest pain, shortness of breath, diz ziness or lightheadedness. She is hopeful to have an EGD, to further evaluate her symptoms. She states that she has had these episodes in the past, however this usually resolves with a PPI. She states that this is the longest that her pain has lasted. Review of Systems Constitutional: + anorexia; no fever and no chills Respiratory: no cough and no dyspnea Cardiovascular: no chest pain, no palpitations, no edema and no calf pain Gastrointestinal: + abdominal pain; no nausea, no vomiting and no change in bowel habits Physical Exam Constitutional: WD/WN, vitals as above no acute distress Respiratory: normal respiratory effort, lungs clear to auscultation Cardiovascular: RRR, no murmur, no edema Gastrointestinal (Abdomen): Percussion/Palpation: + abdomen tender (Tender in epigastric region) and abdomen soft; no guarding and abdomen not rigid Results & Data Vital Signs (Past 12 Hours) Vital Signs Temp Pulse Pulse Resp BP Pulse Ox 01/01/19 12:26 36.5 C 64 19 122/77 99 01/01/19 07:47 36.9 C 66 18 125/69 97 01/01/19 03:41 36.7 C 70 18 95/57 L 97 01/01/19 03:15 72 PG Care Time/CCT Total # of Minutes Spent Total Time Spent with Patient: Total time spent is greater than 50% in coordination of care (as documented) at patient's floor/unit and/or counseling patient: Resident Activity Tracking Resident Involvement: Resident Care Provided Care Provided: Adult Hospital Medicine (1) Vomiting Nausea presence: unspecified Vomiting Intractability: unspecified Vomiting type: unspecified Qualified Code(s): R11.10 - Vomiting, unspecified
[2019-01-01] MEDS ORDERED: INSULIN DETEMIR FLEXPEN/FLEX TOUCH 100 UNITS/ML 3ML SC ONE (21:00)
[2019-01-01] MEDS ORDERED: INSULIN ASPART 100 UNITS/ML 3 ML PEN SC ONE (21:00)
[2019-01-01] MEDS: ATORVASTATIN 20 MG TAB PO SCH (22:02)
[2019-01-01] MEDS: LEVOTHYROXINE SODIUM 100 MCG TABLET PO SCH (22:02)
[2019-01-01] MEDS: GABAPENTIN 300 MG CAP PO SCH (22:02)
[2019-01-01] MEDS: CITALOPRAM 20 MG TAB PO SCH (22:03)
[2019-01-02] MEDS: HYDROmorphone INJ 0.5 MG/0.5 ML SYR IV PRN ×3 (00:03→21:57)
[2019-01-02] MEDS: PIPERACILLIN/TAZOBACTAM 4.5 GM in DEXTROSE 5% 100 ML IV SCH (05:14)
[2019-01-02 05:51] LABS: Hematocrit (blood only) 29.1 % (37-47); Mean Corpuscular Hgb Conc 30.9 g/dL (32-36); Mean Corpuscular Volume 102.1 fL (80-100); Mean Platelet Volume 9.7 fL (7.4-10.4); Platelet Count 157 K/uL (130-400); RDW Coefficient of Variation 14.5 % (11.5-14.5); Red Blood Count 2.85 M/uL (4.2-5.4); White Blood Count 6.71 K/uL (4.8-10.8)
[2019-01-02 06:33] LABS: BUN Creatinine Ratio 7.6 (10-20); Calcium 7.9 mg/dl (8.5-10.1); Creatinine Clr Calc Pharmacy 8.9 ml/min
[2019-01-02] MEDS: INSULIN ASPART 100 UNITS/ML 3 ML PEN SC SCH ×4 (06:33→21:07)
[2019-01-02] MEDS: HEPARIN SOD 5,000 UNIT/0.5 ML VIAL SQ SCH ×3 (06:40→21:53)
[2019-01-02] MEDS: FAMOTIDINE 20 MG in SYRINGE 3 ML IV SCH ×2 (08:20→21:53)
[2019-01-02] MEDS: ASPIRIN 81 MG ECTAB PO SCH (08:21)
[2019-01-02] MEDS: SUCRALFATE 1 GM/10 ML UDC PO SCH ×4 (08:21→20:59)
[2019-01-02] MEDS: MAGNESIUM OXIDE 400 MG TAB PO SCH (08:21)
[2019-01-02] MEDS: PANTOprazole 40 MG TAB PO SCH ×2 (08:21→21:02)
[2019-01-02] MEDS: CARVEDILOL 25 MG TAB PO SCH ×2 (08:22→21:02)
--- NOTE | 2019-01-02 09:04 | Cardiology Progress Note ---
Date of Service January 02, 2019 Assessment & Plan (1) Abdominal pain, epigastric: Although she has a long history of abdominal discomfort which has been attributed to esophageal disease I was concerned that this was due to ischemic heart disease. Her catheterization suggest that this is not the case, it is conceivable that she has some type of myocarditis which could cause discomfort but I do not think it would be intermittent. I believe her abdominal discomfort is indeed GI in origin. (2) Elevated troponin: Her troponin had gradually increased, This suggests myocardial injury, possibly a Takatsubo type abnormality. Her troponin peaked at 12 and then dropped on December 31, 2018. This suggests resolution of the injury. (3) LBBB (left bundle branch block): She has a left bundle branch block which has not changed during her hospitalization. (4) Cardiomyopathy: She has severe left ventricular dysfunction which is a new finding. I would treat this with heart failure medications, especially beta-blockade. Her blood pressure is better now on carvedilol 25 mg twice daily. Perhaps we can start ARB therapy as well, I will leave that up to the primary service. That would be preferable to hydralazine. We will need to follow this as an outpatient if she goes home in the near future, if she remains in the hospital I would repeat the echo this week. Subjective She is still complaining of abdominal discomfort, no cardiovascular complaints. No shortness of breath. Physical Exam Physical Exam: Constitutional: Alert, cooperative and in no distress. Pulmonary: Clear to auscultation bilaterally. Cardiac: Regular rhythm with no murmur, gallop or rub. Abdomen: Soft, nontender with normal bowel sounds. Extremities: No edema. Right-sided dialysis graft. Skin: No rash, ecchymoses or petechiae. Results & Data Vital Signs (Past 12 Hours) Vital Signs Temp Pulse Pulse Pulse Resp BP Pulse Ox 01/02/19 07:41 36.5 C 57 L 17 122/63 100 01/02/19 03:30 37.1 C 60 18 124/42 L 96 01/01/19 23:07 36.4 C L 67 20 137/65 99 01/01/19 22:20 61 Laboratory Results Abnormal lab results 01/01/19 01/01/19 01/01/19 Range/Units 11:35 20:50 23:52 RBC (4.2-5.4) M/uL Hgb (12.0-16.0) g/dL Hct (37-47) % MCV (80-100) fL MCHC (32-36) g/dL RDW Std Deviation (36.4-46.3) fL Sodium (136-145) mmol/L BUN (7-18) mg/dl Creatinine (0.6-1.2) mg/dl BUN/Creatinine Ratio (10-20) Glucose (70-99) mg/dl POC Glucose 109 H 120 H 105 H (70-99) Calcium (8.5-10.1) mg/dl 01/02/19 01/02/19 Range/Units 05:24 05:24 RBC 2.85 L (4.2-5.4) M/uL Hgb 9.0 L (12.0-16.0) g/dL Hct 29.1 L (37-47) % MCV 102.1 H (80-100) fL MCHC 30.9 L (32-36) g/dL RDW Std Deviation 54.0 H (36.4-46.3) fL Sodium 135 L (136-145) mmol/L BUN 48 H (7-18) mg/dl Creatinine 6.32 H* D (0.6-1.2) mg/dl BUN/Creatinine Ratio 7.6 L (10-20) Glucose 63 L (70-99) mg/dl POC Glucose (70-99) Calcium 7.9 L (8.5-10.1) mg/dl Diagnostic Findings Telemetry: Phenomenally sinus bradycardia, no significant ectopy PG Care Time/CCT Total # of Minutes Spent Total Time Spent with Patient: Total time spent is greater than 50% in coordination of care (as documented) at patient's floor/unit and/or counseling patient:
--- NOTE | 2019-01-02 09:35 | Gastroenterology Progress Note ---
Date of Service January 02, 2019 Assessment & Plan (1) Atypical chest pain: -Barium swallow today. If barium swallow shows a significant change in her hiatal hernia (which was previously surgically repaired x 2), should obtain an opinion from Dr. Beckford regarding whether this patient is even a candidate for repair given her cardiac concerns at present. If it is unremarkable, there is unlikely to be a significant GI pathology underlying this. I did discuss with anesthesia as well given the concerns surrounding her recent troponin elevation as well as the significant drop in her EF. The patient is high risk for an elective EGD with low yield. -Protonix 40 mg BID, Carafate 1 gm four times daily, & Pepcid 20 mg BID. If these medications are not improving her chest discomfort, it is unlikely that an EGD would have significant yield. -Consider trial of 2-3 peppermint Altoids (must be Altoid brand or alternatively could utilize peppermint oil) prior to meals given previous findings of esophageal dysmotility. -Will check an H Pylori stool antigen. If negative, could also consider empiric trial of Diflucan. This plan was formulated and discussed in conjunction with Dr. Joyner. Present on Admission?: Yes Supervising Physician Co-Signing Physician Notes Agree with ISMAEL Jane as above Discussed case in detail with Dr. Dawn, Dr. Beckford, and ISMAEL Martínez Abd: Soft, Obese, NT, +BS Findings on Barium swallow similar to prior study done in 2016 Continue PPI, H2RA and Carafate therapy No role for EGD in regards to esophageal dysmotility and Hiatal hernia. She has not had any overt GI bleeding. Risk of procedure, especially from sedation, far outweighs benefit at this time. Agree with Peppermint altoids therapy Subjective Patient is currently hospitalized with chest discomfort, a new LBBB on EKG, and a significant decrease in her cardiac ejection fraction from 55-60% in May 2018 to 20% at present. She reports persistent chest pain. Review of Systems Constitutional: no fever and no chills Respiratory: no cough and no dyspnea Cardiovascular: no chest pain Gastrointestinal: no abdominal pain, no heartburn, no vomiting and no dysphagia denies reflux Physical Exam Constitutional: WD/WN, vitals as above Respiratory: normal respiratory effort, lungs clear to auscultation Cardiovascular: Rate/Rhythm: regular rate and regular rhythm Gastrointestinal (Abdomen): normal bowel sounds, soft, nontender, no hepatosplenomegaly Skin: no rashes, warm and dry Results & Data Vital Signs (Past 12 Hours) Vital Signs Temp Pulse Pulse Pulse Resp BP Pulse Ox 01/02/19 07:41 36.5 C 57 L 17 122/63 100 01/02/19 03:30 37.1 C 60 18 124/42 L 96 01/01/19 23:07 36.4 C L 67 20 137/65 99 01/01/19 22:20 61 PG Care Time/CCT Total # of Minutes Spent Total Time Spent with Patient: Total time spent is greater than 50% in coordination of care (as documented) at patient's floor/unit and/or counseling patient:
--- NOTE | 2019-01-02 10:15 | Nephrology Progress Note ---
Date of Service January 02, 2019 Assessment & Plan (1) End-stage renal disease (ESRD): -- On HD TTS schedule (4 hours, Qb 350 via AVF. 2K bath. EDW 99 kg) -- Volume status & electrolyte balance acceptable. No acute indication for HD at this time -- Will schedule next HD for am (2) Abdominal pain: -- Persistent epigastric pain. LFT's & lipase are normal. RUQ US negative for cholecystitis -- Discussed w/ GI this morning. Patient is scheduled for a barium swallow today (3) Cardiomyopathy: -- Troponin is now trending down. EKG w/ new LBBB. Cardiac cath 12/30 revealed normal coronary arteries -- TTE demonstrates LVEF 20-25% with severe global hypokinesis with sparing of the basal segment, RASP 50-60 by estimate. Subjective Mrs. Patrick was seen & examined in her hospital room this morning. She c/o epigastric pain radiating to her back and nausea. She remains NPO for barium swallow this morning. Review of Systems Constitutional: no fever, no chills and no weakness Eyes: no worsening vision and no problem reported Ear, Nose, Mouth, Throat: no problem reported Respiratory: no cough and no dyspnea Cardiovascular: no chest pain, no palpitations and no edema Gastrointestinal: + abdominal pain and + nausea; no vomiting and no diarrhea/loose stools Genitourinary: no dysuria and no hematuria Musculoskeletal: + back pain Integumentary: no rash Neurologic: no falls, no dizziness and no confusion Physical Exam Constitutional: + ill appearing and + obese Eyes: PERRL, conjunctivae normal, anicteric sclerae ENMT: external ear and nose normal, oropharynx normal Neck: trachea midline, no thyromegaly Respiratory: normal respiratory effort, lungs clear to auscultation Cardiovascular: RRR, no murmur, no edema Extremities: + AV fistula (+ bruit) Gastrointestinal (Abdomen): Inspection/Auscultation: + hypoactive bowel sounds Percussion/Palpation: abdomen soft; abdomen nontender and no guarding Musculoskeletal: no cyanosis or clubbing, extremities motor strength 5/5 Skin: no rashes, warm and dry Neurologic: awake; not confused Results & Data Vital Signs (Past 12 Hours) Vital Signs Temp Pulse Pulse Pulse Resp BP Pulse Ox 01/02/19 07:41 36.5 C 57 L 17 122/63 100 01/02/19 03:30 37.1 C 60 18 124/42 L 96 01/01/19 23:07 36.4 C L 67 20 137/65 99 01/01/19 22:20 61 Laboratory Results Laboratory Tests 01/02/19 01/02/19 05:24 05:24 WBC 6.71 Hgb 9.0 L Hct 29.1 L Plt Count 157 Sodium 135 L Potassium 4.0 Chloride 100 Carbon Dioxide 26 BUN 48 H Creatinine 6.32 H* D Glucose 63 L PG Care Time/CCT Total # of Minutes Spent Total Time Spent with Patient: Total time spent is greater than 50% in coordination of care (as documented) at patient's floor/unit and/or counseling patient:
--- NOTE | 2019-01-02 10:52 | Fluoroscopy Report ---
DOUBLE CONTRAST BARIUM ESOPHAGRAM CLINICAL HISTORY: Epigastric discomfort. COMPARISON STUDY: Barium esophagram dated 08/01/2018. Abdominal CT dated 12/30/2018. TECHNIQUE: A standard air contrast barium esophagram is performed. Multiple spot images of the esopha aryan are acquired both upright and prone. FINDINGS: The patient swallowed without difficulty. The patient could not swallow the barium pill. Th e mucosal pattern is normal. Moderate dysmotility is seen in the mid to distal third. There is no marichuy dence of intrinsic or extrinsic mass lesion. No aspiration was identified. The gastroesophageal junc tion distended normally. Postoperative change is identified at the diaphragmatic hiatus. There is a m oderate hiatal hernia filled with debris. No gastroesophageal reflux could be elicited by having the patient perform the Valsalva maneuver. Fluoroscopy time: 1.7 minutes. Fluoroscopic images: 22 IMPRESSION: 1. There is a moderate debris-filled hiatal hernia. 2. Moderate esophageal dysmotility. 3. Postoperative change is seen at the diaphragmatic hiatus. Electronically signed by: Derek Low M.D. 01/02/2019 10:51 AM
--- NOTE | 2019-01-02 13:27 | Pharmacy Report ---
Glycemic Control Progress Note - Date of Service January 02, 2019 - Scope Glycemic Pharmacist consulted for glycemic control to write orders per [facility] inpatient glycemic control protocol. - Objective Accuchecks BSG(last 24 hours):: 01/01/19 01/01/19 01/01/19 17:44 20:50 23:52 Glucose POC Glucose 77 120 H 105 H 01/02/19 01/02/19 01/02/19 05:24 05:55 11:26 Glucose 63 L POC Glucose 77 89 - Recent Pertinent Medications The patient is currently receiving: * Basal insulin: Levemir 8 units every 24 hours * Correctional Insulin: Novolog Correction per scale ACHS Goal Range: Low 110 mg/dL - High 150 mg/dL Correction Factor: 20 mg/dL/unit * Prandial insulin: Per carb ratio of 1 unit per 8 grams CHO consumed - Outpatient Anti-Diabetic Meds Levemir 20 units SQ BID - Assessment & Plan ASSESSMENT: * See progress note from 12/31/18 for more background info, in short: * Pt receiving SQ basal bolus insulin regimen for hyperglycemia secondary to baseline DM (outpatient regimen on hold),stress/infection (currently on Zosyn), and POD 3 for cardiac catheterization. * Patient is currently receiving an average of 8 units of insulin per day * 8 units of basal insulin * 0 units of prandial/correctional insulin * BSGs ranging 77 - 120 mg/dl over the past 24hrs * Changes needed to insulin regimen: * AM Fasting BSG = 77 mg/dl. This is below goal range for patient based on inpatient targets and co-morbidities. Therefore Basal insulin will continue to be held. Created scale tonight with high threshold to hold Levemir. * Post-prandial BSGs are well controlled. Monitor. * Total daily dose is not clear as patient has had several different days of NPO status. Monitor. PLAN FOR INPATIENT GLYCEMIC CONTROL: * Decreasing Levemir to 0-15 units SQ HS * Continuing correction factor of 20 mg/dl/unit * Continuing carb ratio of 1 unit per 8 grams CHO consumed * Continuing goal range of Low 140 mg/dL - High 180 mg/dL RECOMMENDATIONS FOR DISCHARGE: * see diabetic educators note regarding following blood glucose logs and adjusting insulin dosing according to trends. * Please note that the plan above was derived based on current level of insulin resistance and hospital stress. These recommendations are appropriate for inpatient admission only. Plan of care upon discharge will need to be reassessed to avoid potential outpatient hypo/hyperglycemia. Thank you.
[2019-01-02 15:13] LABS: Appearance Urine Cloudy (Clear); Bacteria Urine Automated Negative (Negative); Bilirubin Urine Negative (Negative); Blood Urine Negative (Negative); Color Urine Dark Yellow; Epithelial Cell Urine Auto >30 /lpf (0-5); Glucose Urine UA Negative (Negative); Ketones Urine Trace (Negative); Leukocyte Esterase Urine 1+ (Negative); Nitrite Urine Negative (Negative); Protein Urine 2+ (Negative); Specific Gravity Urine 1.041 (1.000-1.030); Urobilinogen Urine Negative (Negative)
[2019-01-02 15:23] LABS: Cast Urine Automated 0 /lpf (0-5)
[2019-01-02] MEDS: ONDANSETRON INJ 2 MG/ML 2 ML VIAL IV PRN (16:54)
[2019-01-02] MEDS ORDERED: Nursing to Pharmacy Communication ONE (19:26)
--- NOTE | 2019-01-02 20:58 | Family Medicine Progress Note ---
Date of Service January 02, 2019 Assessment & Plan (1) End-stage renal disease (ESRD): Ms. Patrick is a 73-year-old female with a past medical history of end- stage renal disease, on dialysis, chronic CHF chronic anemia, hypothyroidism, hyperlipidemia, depression and anxiety who presented to [facility] due to epigastric pain, nausea and vomiting. She was admitted for bowel rest and IV antiemetics, and found to have an elevated troponin. Acute [place] with normal coronaries on [facility] Nonischemic cardiomyopathy -Patient has a history of chronically elevated troponin secondary to coronary artery disease and chronic renal disease -New spike this admission, with a peak of 12.6 - ECHO showed severely reduced EF (20-25%) with wall motion hypo to akinetic wall motion of right and left ventricles except for the basal aspects. (Roman difference to recent echo from earlier in the year showing EF of 55%) - Cardiology was consulted -> Patient underwent a cardiac catheterization, where she was found to have normal coronary arteries. - Patient appears to have a nonischemic cardiomyopathy -> myocarditis vs takutsubo vs Lyme - Lyme antibodies negative, most likely diagnosis is Takotsubo cardiomyopathy - Continue increased dose of carvedilol, daily aspirin and atorvastatin Nausea/vomiting/abdominal pain sec to symptomatic Hiatal hernia/esophageal dysmotility - Patient has a history of chronic GERD, as well as dysphagia. She has had ongoing nausea, vomiting and epigastric pain since the removal of a silicone ring that was placed during a prior hiatal hernia repair four years ago. Had been doing okay until 24 hours before admission. She states she has never had an episode that she has had with unrelenting abdominal pain and nausea. No evidence of aortic dissection on imaging, no evidence for pancreatitis on labs CT abdomen/pelvis -> mild gallbladder distention with edema. Partial distention of urinary bladder with mild wall thickening. -> Follow-up right upper quadrant ultrasound showed gallbladder distention, h owever no inflammation -> LFTs within normal limits - Continue 20 mg IV famotidine twice daily and pantoprazole 40 mg twice daily - GI does not see a role for scope and recommends conservative management - Continue ondansetron 4 mg prn every 4 hours and promethazine 12.5 mg every 4 hours prn -Dilaudid 0.25 mg IV every 4 hours as needed for abdominal pain - Attempting clear fluids GI recommended thoracic surgery consultation for possible hiatal hernia repair. Thoracic surgery declines intervention at this time due to decreased heart function Fever, leukocytosis -Patient spiked a fever of 38.1 C on 12/29 -Patient was placed on Zosyn, and has been afebrile since -Unsure of source of infection at this time. Patient had leukocytosis up to 17.8, this is slowly resolving and has returned back to normal today -No evidence of pneumonia or skin infection Zosyn d/c'd -Blood cultures negative x48 hours End Stage Renal Disease -Patient was admitted with hyperkalemia and EKG changes, this has now resolved -Nephrology consulted, currently managing hemodialysis. Receiving hemodialysis on Wednesday, , Wednesday -Daily BMPs, no significant electrolyte abnormalities noted today -Caution w/IVF given ESRD Hypertension -Home hydralazine d/c'd, due to low blood pressures with uptitrating of carvedilol Hypoxemia -Patient meant to wear 2 L of oxygen at home [id number]. She is currently saturating well on 2 L of oxygen by nasal cannula here -CT showed bilateral pleural effusions, as well as pulmonary edema, however patient is at her baseline with regards to breathing -Continue to monitor Depression -Continue home citalopram Hypothyroidism -Continue home levothyroxine Neuropathy -Continue home gabapentin F/E/N: clears DVT PPx: Heparin 5000 units SQ 3 times daily Dispo: PCU (2) Fever: (3) Cardiomyopathy: (4) LBBB (left bundle branch block): (5) Abdominal pain, epigastric: (6) Elevated troponin: (7) Vomiting: (8) Hernia, hiatal: (9) Poorly-controlled hypertension: (10) Depression with anxiety: (11) Dyslipidemia: (12) Dysphagia: (13) GERD without esophagitis: Supervising Physician Co-Signing Physician Notes Resident Physician Supervision Note: I independently interviewed and examined the patient and verified the bergeron history and physical, reviewed labs and image studies, discussed the case with the resident Dr. Harden and agree with the findings and care plan. Subjective Shirley Patrick is continuing to not tolerate even clear liquids, epigastric pain and right upper quadrant pain particularly when trying to swallow. Discussed treatment options at length with patient and she is aware that this may be the end of her life. Review of Systems Review of Systems: All systems reviewed & are unremarkable except as noted in HPI & below Physical Exam Physical Exam: Constitutional: 73-year-old woman lying in bed appears unwell and uncomfortable Eyes: Extraocular muscles intact bilaterally pupils equal round reactive to light, anicteric sclerae ENMT: Face symmetric, tongue and uvula midline, sensation intact to face oropharynx normal Neck: Nontender no masses detected Respiratory: Chest expansion symmetric, lung sounds vesicular bilaterally no added auscultation noises Cardiovascular: Regular rate and rhythm no murmurs rubs skips or gallops peripheral pulses strong and intact edema present lower limb Gastrointestinal: Abdomen soft yet very tender worse in epigastric region and right upper quadrant no mass detected Skin: bruising on legs bilaterally Results & Data Vital Signs (Past 12 Hours) Vital Signs Temp Pulse Pulse Resp BP Pulse Ox 01/02/19 19:38 36.7 C 59 L 18 107/62 99 01/02/19 16:00 53 L 01/02/19 15:47 36.8 C 57 L 11 L 162/87 H 100 01/02/19 11:27 36.7 C 59 L 19 113/62 97 PG Care Time/CCT Total # of Minutes Spent Total Time Spent with Patient: Total time spent is greater than 50% in coordination of care (as documented) at patient's floor/unit and/or counseling patient: Resident Activity Tracking Resident Involvement: Resident Care Provided Care Provided: Adult Hospital Medicine (1) Vomiting Nausea presence: unspecified Vomiting Intractability: unspecified Vomiting type: unspecified Qualified Code(s): R11.10 - Vomiting, unspecified
[2019-01-02] MEDS: CITALOPRAM 20 MG TAB PO SCH (21:00)
[2019-01-02] MEDS ORDERED: INSULIN GLARGINE SOLOSTAR 100 UNITS/ML 3 ML PEN SC SCH (21:00)
[2019-01-02] MEDS: GABAPENTIN 300 MG CAP PO SCH (21:02)
[2019-01-02] MEDS: ATORVASTATIN 20 MG TAB PO SCH (21:02)
[2019-01-02] MEDS: LEVOTHYROXINE SODIUM 100 MCG TABLET PO SCH (21:03)
[2019-01-02] MEDS: INSULIN DETEMIR FLEXPEN/FLEX TOUCH 100 UNITS/ML 3ML SC SCH (21:07)
--- NOTE | 2019-01-03 02:13 | Consultation Report ---
DATE OF CONSULTATION: 01/02/2019 REASON FOR CONSULTATION: Hiatal hernia. HISTORY OF PRESENT ILLNESS: This is a very pleasant 73-year-old female who I saw while she was in the hospital. The patient was admitted to [facility] on 12/28/2018 secondary to abdominal and epigastric pain along with nausea and vomiting. I did question the patient on numerous symptoms and she says that over the past several weeks she has noticed early satiety. She also notes that she does have some dysphagia to both solids and liquids. Because of her admitting symptoms, she was admitted to the hospital. The patient was also experiencing some chest pain, which prompted a cardiac evaluation. It is nowhere to mention that she did undergo an echocardiogram that showed a 25% ejection fraction, which when compared to old echo was markedly decreased as her most recent echo prior to this showed an ejection fraction of 55%. She was also noted to have a new left bundle branch block and EKG changes, so she was taken to cardiac film laboratory technician and Dr. Qureshi performed a catheterization where she was noted to have nonobstructive coronary artery disease and a 25% to 30% ejection fraction. Additional diagnostic studies that the patient has undergone included various imaging studies including a CT scan of the abdomen and pelvis where patient was noted to have trace pleural effusions along with a debris filled moderate-sized hiatal hernia. She did have a CT scan of the chest which again demonstrated the same hiatal hernia and she also has undergone a barium swallow that showed a moderate-sized hiatal hernia filled with debris and that study was done today. Labs that the patient has undergone included a CBC and most recent one was today where white blood cell count was 6.7. Of note, at the time of admission, her white blood cell count peaked at 17.81. Her hemoglobin and hematocrit are 9.0 and 29.1. Her platelet count is noted to be 157,000. Coagulation studies were noted to be within normal range and chemistry profile did show sodium is 135, potassium 4.0. Her BUN and creatinine are 40 and 6.3. It is nowhere to mention that the patient does carry a diagnosis of chronic kidney disease. I questioned the patient on other symptoms and there were no reported falls, head injuries, visual changes, tinnitus, or sore throat. She denies any neck pain. She did experience some chest pain and does admit to some intermittent chest pain, particularly when she eats at times as an outpatient. She says that she has markedly decreased energy over the past several weeks. She also notes again dysphagia to both solids and liquids which is intermittent. She also notes a history of chronic GERD and she says that she does feel as though she regurgitates food after she eats and she often feels that she coughs at night. She does have intermittent abdominal pain and again it was worse, which prompted her admission today. She does have chronic kidney disease. She has no history of DVT or PE. I did visit with her at the bedside and at the time of my exam, she was resting comfortably and was in no pain or acute distress at the time of my exam. PAST MEDICAL HISTORY: Includes the followin. Sleep apnea. 2. GERD. 3. History of esophageal dysmotility. 4. Depression. 5. Anxiety. 6. End-stage renal disease with dialysis on Wednesday, and Wednesday. 7. Hypertension. 8. Hypothyroidism. PAST SURGICAL HISTORY: Includes: 1. Right arm AV fistula. 2. History of EGD. 3. The patient reportedly had a history of a paraesophageal hiatal hernia repair with mesh, which was subsequently removed in the past. ALLERGIES: LISINOPRIL. CURRENT MEDICATIONS: Include the following, 1. Pepcid 20 mg IV twice daily. 2. Aspirin 81 mg daily. 3. Celexa 20 mg daily. 4. Neurontin 300 mg at bedtime. 5. Hydralazine 25 mg 3 times daily. 6. Synthroid 100 mcg daily. 7. Mag-Ox 400 mg daily. 8. Subcutaneous heparin 5000 units every 8 hours. 9. Carafate 1 gram 4 times daily. 10. Sliding scale insulin every 6 hours. 11. Protonix 40 mg twice daily. 12. Coreg 25 mg twice daily. 13. Levemir insulin. 14. Lipitor 20 mg daily. 15. Procrit 10,000 units with dialysis. 16. IV heparin 2000 units with dialysis. SOCIAL HISTORY: The patient does not smoke. FAMILY HISTORY: She does not note premature coronary artery disease in her family. REVIEW OF SYSTEMS: As noted above. PHYSICAL EXAMINATION: VITAL SIGNS: The patient's blood pressure is 162/87, pulse 67 and regular, respirations are 11 and nonlabored. She is afebrile. Temperature 36.0, pulse ox 100% on 2 liters. GENERAL: She is alert. She is oriented x3. She is in no distress. HEENT: Head is atraumatic, normocephalic. Eyes, pupils are equal, round, and react to light and accommodation. Extraocular motions are intact. Ears, auditory acuity is grossly intact. Nose, nasal patency was intact. Her mouth has dry mucous membranes. NECK: Supple without tracheal shift. CARDIOVASCULAR: Revealed a regular rate and rhythm. LUNGS: Revealed breath sounds are decreased at the bases, but she was not using accessory muscles. There was no wheezing noted. ABDOMEN: Rotund. It is soft. Palpation did not cause pain at the time of my exam. There is no rebound tenderness. EXTREMITIES: Revealed the patient had an AV fistula in her right forearm with a palpable thrill. She had faint DP pulses bilaterally. NEUROLOGIC: Reveals she can move all 4 extremities and follow simple commands. DIAGNOSTIC DATA: As noted above. IMPRESSION: A 73-year-old female with hiatal hernia. PLAN: I have discussed the case with the primary service resident, Dr. Marky Harden, along with Dr. Joyner of gastroenterology. Gastroenterology has been asked to see for EGD, but due to her cardiac status and decreased ejection fraction, they do not feel the patient is a suitable candidate to undergo an EGD. It is unlikely at this time that she is likely a surgical candidate for paraesophageal hernia repair, also due to her decreased ejection fraction. Dr. Joyner at this point has recommended conservative management for this patient, but we will continue to follow along with the patient. Should her cardiac status improve, we will revisit the topic of surgery. Again we will follow along while the patient is in the hospital. SARTHAK
[2019-01-03] MEDS: HEPARIN SOD 5,000 UNIT/0.5 ML VIAL SQ SCH ×3 (05:45→21:07)
[2019-01-03] MEDS: HYDROmorphone INJ 0.5 MG/0.5 ML SYR IV PRN ×2 (06:21→12:16)
[2019-01-03] MEDS: ONDANSETRON INJ 2 MG/ML 2 ML VIAL IV PRN ×2 (06:21→12:16)
[2019-01-03] MEDS: INSULIN ASPART 100 UNITS/ML 3 ML PEN SC SCH ×4 (06:46→21:10)
[2019-01-03] MEDS ORDERED: EPOETIN ALFA 10,000 UNITS/ML VIAL IV ONE (07:00)
[2019-01-03] MEDS ORDERED: SODIUM CHLORIDE 0.9% 1000ML 1,000 ML IV PRN (07:00)
[2019-01-03] MEDS ORDERED: HEPARIN SOD (PORCINE) 1000 UNIT/ML 10 ML VIAL IV ONE (07:00)
[2019-01-03 07:36] LABS: Hematocrit (blood only) 30.1 % (37-47); Hemoglobin 9.5 g/dL (12.0-16.0); Mean Corpuscular Hgb Conc 31.6 g/dL (32-36); Mean Corpuscular Volume 100.3 fL (80-100); Mean Platelet Volume 10.1 fL (7.4-10.4); Platelet Count 153 K/uL (130-400); RDW Coefficient of Variation 14.8 % (11.5-14.5); RDW Standard Deviation 54.1 fL (36.4-46.3); White Blood Count 6.46 K/uL (4.8-10.8)
[2019-01-03 08:26] LABS: Albumin Globulin Ratio 0.7 (0.9-2); Albumin Level 2.9 gm/dl (3.4-5.0); BUN Creatinine Ratio 7.7 (10-20); Bilirubin,Total 0.3 mg/dl (0.2-1); Calcium 8.1 mg/dl (8.5-10.1); Creatinine Clr Calc Pharmacy 7.3 ml/min; Est GFR (African American) 5.4; Est GFR (Non-African American) 4.7; Potassium 3.7 mmol/L (3.5-5.1); Total Protein 6.9 gm/dl (6.4-8.2)
[2019-01-03] MEDS: HEPARIN SOD (PORCINE) 1000 UNIT/ML 10 ML VIAL IV SCH ×2 (09:18→09:19)
--- NOTE | 2019-01-03 09:36 | Family Medicine Progress Note ---
Date of Service January 03, 2019 Assessment & Plan (1) End-stage renal disease (ESRD): Ms. Patrick is a 73-year-old female with a past medical history of end- stage renal disease, on dialysis, chronic CHF chronic anemia, hypothyroidism, hyperlipidemia, depression and anxiety who presented to [facility] due to epigastric pain, nausea and vomiting. She was admitted for bowel rest and IV antiemetics, and found to have an elevated troponin. Elevated Troponin with normal coronaries on [facility] Nonischemic cardiomyopathy -Patient has a history of chronically elevated troponin secondary to coronary artery disease and chronic renal disease -New spike this admission, with a peak of 12.6 - ECHO showed severely reduced EF (20-25%) with wall motion hypo to akinetic wall motion of right and left ventricles except for the basal aspects. (Roman difference to recent echo from earlier in the year showing EF of 55%) - Cardiology was consulted -> Patient underwent a cardiac catheterization, where she was found to have normal coronary arteries. - Patient appears to have a nonischemic cardiomyopathy -> myocarditis vs takutsubo vs Lyme - Lyme antibodies negative, most likely diagnosis is Takotsubo cardiomyopathy - Continue increased dose of carvedilol, daily aspirin and atorvastatin Will repeat echo today to look for signs of improvement, cardiology cautiously optimistic we might see improvement Nausea/vomiting/abdominal pain - Patient has a history of chronic GERD, as well as dysphagia. She has had ongoing nausea, vomiting and epigastric pain since the removal of a silicone ring that was placed during a prior hiatal hernia repair four years ago. Had been doing okay until 24 hours before admission. She states she has never had an episode that she has had with unrelenting abdominal pain and nausea. No evidence of aortic dissection on imaging, no evidence for pancreatitis on labs CT abdomen/pelvis -> mild gallbladder distention with edema. Partial distention of urinary bladder with mild wall thickening. -> Follow-up right upper quadrant ultrasound showed gallbladder distention, however no inflammation -> LFTs within normal limits - Continue 20 mg IV famotidine twice daily and pantoprazole 40 mg twice daily - GI does not see a role for scope and recommends conservative management - Continue ondansetron 4 mg prn every 4 hours and promethazine 12.5 mg every 4 hours prn -Dilaudid 0.25 mg IV every 4 hours as needed for abdominal pain - Attempting clear fluids GI recommended thoracic surgery consultation for possible hiatal hernia repair. Thoracic surgery declines intervention at this time due to decreased heart function Will repeat echo today to assess heart function Fever, leukocytosis -Patient spiked a fever of 38.1 C on 12/29 -Patient was placed on Zosyn, and has been afebrile since -Unsure of source of infection at this time. Patient had leukocytosis up to 17.8, this is slowly resolving and has returned back to normal today -No evidence of pneumonia or skin infection Zosyn d/c'd -Blood cultures negative x48 hours End Stage Renal Disease -Patient was admitted with hyperkalemia and EKG changes, this has now resolved -Nephrology consulted, currently managing hemodialysis. Receiving hemodialysis on Wednesday, , Wednesday -Daily BMPs, no significant electrolyte abnormalities noted today -Caution w/IVF given ESRD Examined at dialysis today as she was out of room this morning Hypertension -Home hydralazine d/c'd, due to low blood pressures with uptitrating of carvedilol Hypoxemia -Patient meant to wear 2 L of oxygen at home [id number]. She is currently saturating well on 2 L of oxygen by nasal cannula here -CT showed bilateral pleural effusions, as well as pulmonary edema, however patient is at her baseline with regards to breathing -Continue to monitor Depression -Continue home citalopram Hypothyroidism -Continue home levothyroxine Neuropathy -Continue home gabapentin F/E/N: clears DVT PPx: Heparin 5000 units SQ 3 times daily Dispo: PCU (2) Fever: (3) Cardiomyopathy: (4) LBBB (left bundle branch block): (5) Abdominal pain, epigastric: 73-year-old female who presents with acute onset of nonbloody emesis, epigastric abdominal pain since 1 AM this morning. Her accompanies her at the bedside. Patient is in visible discomfort and nausea. helps provide the history. He states that she woke up this morning at 1 AM with acute onset of nausea. She has been emetic all day, denies blood in the vomitus. Poor p.o. intake. Of note, denies any loose stools. Denies any new or exotic foods. Denies any sick contacts. states that her issues with her reflux and nausea have progressively worsened since the esophageal band was rem cristhian, and according to her records it appears this has been since at least 2014. Patient denies cough or wheezing. She is currently on 4 L via oxygen mask. According to her record she is on 2 to 3 L at baseline for her COPD and severe sleep apnea. ED course: Fluids, Zofran, Phenergan. Assessment: abdominal pain 2/2 symptomatic hiatal hernia and esophageal dysmotility and dyspepsia -afebrile, no leukocytosis, no diarrhea Plan: -bowel rest, advance as tolerated -antiemetics -pain control FEN/GI: npo with sips, (advance as tolerated), NSS @100ml/hr x 1 day for h ydration, PPI& H2B ordered IV here. DVT ppx: heparin sq CODE STATUS: DNR/DNI as discussed with pt and DISPO: tele given increased o2 demand and elev troponins. (6) Elevated troponin: Chronically elevated troponin secondary to coronary artery disease and chronic renal disease 2.74 on this admission likely demand ischemia though this is a market jump from previous troponins we will continue to trend. (7) Vomiting: antiemetics ordered. QTc is not prolonged, ok for zofran/phenergan. (8) Hernia, hiatal: Chronic -- Review of records shows most recent barium swallow in July 2018 noted a small hiatal hernia, and moderate esophageal dysmotility. -History of repair of paraesophageal hiatus hernia with thoraco-abdominal implant of mesh - Removed after 2014 - seen on CT abd/pelv here, with food remnants within. - On PPI and H2 ramesh - both ordered IV here until pt able to resume PO. -sees [facility] normally. (9) Poorly-controlled hypertension: (10) Depression with anxiety: continue home citalopram (11) Dyslipidemia: hold home statin while nauseous and emetic (12) Dysphagia: As above (13) GERD without esophagitis: as above Subjective Patient tells me yesterday she was able to tolerate her clear liquid diet better than she has since admission, however today she is having a lot of trouble and a ton of pain when she tries to swallow. She finds the pain to be unbearable and if she is unable to adequately treat this pain discomfort on eating would like to withdraw further care in favor of comfort measures. Abdominal pain epigastric worse when she swallows. Review of Systems Review of Systems: All systems reviewed & are unremarkable except as noted in HPI & below Physical Exam Physical Exam: Ill-appearing 73-year-old woman currently undergoing dialysis nasal cannula in place at 2 L Eyes: Anicteric sclerae extraocular muscle motion intact bilaterally Respiratory: Chest expansion symmetric, decreased lung sounds at bases otherwise breath sounds vesicular bilaterally Cardiovascular: Regular rate regular without rhythm S1-S2 normal no no murmurs rubs skips or gallops Gastrointestinal: Abdomen soft epigastric and right upper quadrant tenderness more mild than it was yesterday no masses detected no organomegaly Skin: No new rashes bruises or lesions Results & Data Vital Signs (Past 12 Hours) Vital Signs Temp Pulse Pulse Pulse Resp BP BP 01/03/19 09:00 62 114/52 L 01/03/19 08:40 61 120/55 L 01/03/19 08:20 60 149/69 H 01/03/19 08:00 59 L 115/57 L 01/03/19 07:40 60 129/58 L 01/03/19 07:32 62 111/58 L 01/03/19 07:27 36.7 C 60 01/03/19 04:05 36.7 C 58 L 18 106/68 01/03/19 01:18 59 L 01/02/19 23:43 36.4 C L 60 18 106/70 Pulse Ox 01/03/19 09:00 01/03/19 08:40 01/03/19 08:20 01/03/19 08:00 01/03/19 07:40 01/03/19 07:32 01/03/19 07:27 01/03/19 04:05 96 01/03/19 01:18 01/02/19 23:43 97 PG Care Time/CCT Total # of Minutes Spent Total Time Spent with Patient: Total time spent is greater than 50% in coordination of care (as documented) at patient's floor/unit and/or counseling patient: Resident Activity Tracking Resident Involvement: Resident Care Provided Care Provided: Adult Hospital Medicine (1) Vomiting Nausea presence: unspecified Vomiting Intractability: unspecified Vomiting type: unspecified Qualified Code(s): R11.10 - Vomiting, unspecified
--- NOTE | 2019-01-03 10:00 | Nephrology Progress Note ---
Date of Service January 03, 2019 Assessment & Plan (1) End-stage renal disease (ESRD): -- On HD TTS schedule (4 hours, Qb 350 via AVF. 2K bath. EDW 99 kg) -- HD today. Orders have been placed in EMR and HD RN notified (2) Abdominal pain: -- Persistent epigastric pain. LFT's & lipase are normal. RUQ US negative for cholecystitis -- Barium swallow shows esophageal dysmotility and hiatal hernia. Await further GI input (3) Cardiomyopathy: -- Troponin is now trending down. EKG w/ new LBBB. Cardiac cath 12/30 revealed normal coronary arteries. Elevated troponin likely reflective of Takotsubo cardiomyopathy -- TTE demonstrates LVEF 20-25% with severe global hypokinesis with sparing of the basal segment, RASP 50-60 by estimate. Subjective Mrs. Patrick was seen & examined prior to HD this morning. She reports continued epigastric abdominal discomfort. She is now anorexic and indicates that she may stop dialysis if her discomfort cannot be corrected Review of Systems Constitutional: no fever, no chills and no weakness Eyes: no worsening vision and no problem reported Ear, Nose, Mouth, Throat: no problem reported Respiratory: no cough and no dyspnea Cardiovascular: no chest pain, no palpitations and no edema Gastrointestinal: + abdominal pain and + nausea; no vomiting and no diarrhea/loose stools Genitourinary: no dysuria and no hematuria Musculoskeletal: + back pain Integumentary: no rash Neurologic: no falls, no dizziness and no confusion Physical Exam Constitutional: + ill appearing and + obese Eyes: PERRL, conjunctivae normal, anicteric sclerae ENMT: external ear and nose normal, oropharynx normal Neck: trachea midline, no thyromegaly Respiratory: normal respiratory effort, lungs clear to auscultation Cardiovascular: RRR, no murmur, no edema Extremities: + AV fistula (+ bruit) Gastrointestinal (Abdomen): Inspection/Auscultation: + hypoactive bowel sounds Percussion/Palpation: abdomen soft; abdomen nontender and no guarding Musculoskeletal: no cyanosis or clubbing, extremities motor strength 5/5 Skin: no rashes, warm and dry Neurologic: awake; not confused Results & Data Vital Signs (Past 12 Hours) Vital Signs Temp Pulse Pulse Pulse Resp BP BP 01/03/19 09:20 61 142/50 H 01/03/19 09:00 62 114/52 L 01/03/19 08:40 61 120/55 L 01/03/19 08:20 60 149/69 H 01/03/19 08:00 59 L 115/57 L 01/03/19 07:40 60 129/58 L 01/03/19 07:32 62 111/58 L 01/03/19 07:27 36.7 C 60 01/03/19 04:05 36.7 C 58 L 18 106/68 01/03/19 01:18 59 L 01/02/19 23:43 36.4 C L 60 18 106/70 Pulse Ox 01/03/19 09:20 01/03/19 09:00 01/03/19 08:40 01/03/19 08:20 01/03/19 08:00 01/03/19 07:40 01/03/19 07:32 01/03/19 07:27 01/03/19 04:05 96 01/03/19 01:18 01/02/19 23:43 97 Laboratory Results Laboratory Tests 01/01/19 01/03/19 01/03/19 06:49 06:59 06:59 WBC 6.46 Hgb 9.5 L Hct 30.1 L Plt Count 153 Sodium 136 Potassium 3.7 Chloride 99 Carbon Dioxide 27 BUN 60 H Creatinine 7.75 H* D Glucose 79 Total Bilirubin 0.3 AST 12 L ALT 11 L Alkaline Phosphatase 69 Albumin 2.9 L Lipase 83 PG Care Time/CCT Total # of Minutes Spent Total Time Spent with Patient: Total time spent is greater than 50% in coordination of care (as documented) at patient's floor/unit and/or counseling patient:
--- NOTE | 2019-01-03 10:29 | Progress Note ---
DATE: 01/03/2019 The patient was seen today. She is on dialysis and states that she is no longer be taking dialysis and this will be her last treatment. Needless to say, this patient is not an operative candidate. We will sign off at this point and would be glad to see her back if her condition changes.
[2019-01-03] MEDS: SUCRALFATE 1 GM/10 ML UDC PO SCH ×4 (12:49→21:06)
[2019-01-03] MEDS: FAMOTIDINE 20 MG in SYRINGE 3 ML IV SCH ×2 (12:50→21:11)
[2019-01-03] MEDS: PANTOprazole 40 MG TAB PO SCH ×2 (12:51→21:07)
[2019-01-03] MEDS: ASPIRIN 81 MG ECTAB PO SCH (12:52)
[2019-01-03] MEDS: CARVEDILOL 25 MG TAB PO SCH ×2 (12:52→21:08)
[2019-01-03] MEDS: MAGNESIUM OXIDE 400 MG TAB PO SCH (12:52)
--- NOTE | 2019-01-03 13:09 | Pharmacy Report ---
Pharmacy Glycemic Short Note 2 - Date of Service January 03, 2019 - Glycemic Short BSG Results (Last 24 hours): 01/02/19 01/02/19 01/03/19 16:29 20:32 06:43 Glucose POC Glucose 74 182 H 93 01/03/19 01/03/19 06:59 12:09 Glucose 79 POC Glucose 111 H Outpatient Anti-Diabetic Meds * Levemir 20 units SQ BID * HbA1c: unreliable in the setting of renal failure/hemodialysis ASSESSMENT: * Patient received 15 units of insulin yesterday, with a majority of BSGs below goal range. * Patient was NPO for an EGD yesterday. Diet has been resumed today (AHA/Renal/clear liquids). * Will continue conservative dosing of insulin d/t blood sugar trend. Expect that insulin needs may begin to increase as diet advances. PLAN FOR INPATIENT GLYCEMIC CONTROL: * Basal insulin * Levemir 0-15 units SQ HS, per scale * Bolus insulin * NovoLog per scale ACHS or Q6hrs while NPO * Goal Range: Low 140 mg/dL - High 180 mg/dL * Correction Factor: 20 mg/dL/unit * Nutritional / Prandial insulin per carb ratio of 1 unit per 8 grams CHO consumed PLAN FOR DISCHARGE: * HD pt * Patient's A1c = 6.0% * However, this result is likely somewhat unreliable in ESRD patients d/t interactions between the A1c analyzing technique and high levels of urea in ESRD, reduced RBC life span, iron deficiency anemia, and EPO administration. * Recommend SMBG as outpatient. * Patient may likely resume home regimen on discharge, as long as she does not report having episodes of hypoglycemia. * Recommend close f/u with outpatient provider after discharge to work on stabilizing glycemic regimen.
--- NOTE | 2019-01-03 16:47 | Cardiology Progress Note ---
Date of Service January 03, 2019 Assessment & Plan (1) Abdominal pain, epigastric: Although she has a long history of abdominal discomfort which has been attributed to esophageal disease I was concerned that this was due to ischemic heart disease. Her catheterization suggest that this is not the case, it is conceivable that she has some type of myocarditis which could cause discomfort but I do not think it would be intermittent. I believe her abdominal discomfort is indeed GI in origin. (2) Elevated troponin: Her troponin had gradually increased, This suggests myocardial injury, possibly a Takatsubo type abnormality. Her troponin peaked at 12 and then dropped on December 31, 2018. This suggests resolution of the injury. (3) LBBB (left bundle branch block): She has a left bundle branch block which has not changed during her hospitalization. (4) Cardiomyopathy: She has severe left ventricular dysfunction which is a new finding this admission. I would treat this with heart failure medications, especially beta- blockade. Her blood pressure is better now on carvedilol 25 mg twice daily. A repeat echocardiogram today shows a similar finding although the ejection fraction might of improved slightly and there might be some improved function of the apex. This is consistent with standing but her ejection fraction remains poor. Subjective Patient still complaining of difficulty with abdominal discomfort when she eats. No cardiovascular complaints. Physical Exam Physical Exam: Constitutional: Alert, cooperative and in no distress. Pulmonary: Clear to auscultation bilaterally. Cardiac: Regular rhythm with no murmur, gallop or rub. Abdomen: Soft, nontender with normal bowel sounds. Extremities: No edema. Right-sided dialysis graft. Skin: No rash, ecchymoses or petechiae. Results & Data Vital Signs (Past 12 Hours) Vital Signs Temp Pulse Pulse Resp BP BP Pulse Ox 01/03/19 15:46 36.9 C 62 13 134/73 100 01/03/19 11:40 36.6 C 63 133/70 01/03/19 11:32 58 L 129/52 L 01/03/19 11:00 61 139/61 01/03/19 10:40 61 127/61 01/03/19 10:20 60 95/25 L 01/03/19 10:00 60 100/50 L 01/03/19 09:40 59 L 127/61 01/03/19 09:20 61 142/50 H 01/03/19 09:00 62 114/52 L 01/03/19 08:40 61 120/55 L 01/03/19 08:20 60 149/69 H 01/03/19 08:00 59 L 115/57 L 01/03/19 07:40 60 129/58 L 01/03/19 07:32 62 111/58 L 01/03/19 07:27 36.7 C 60 Diagnostic Findings Abnormal lab results 01/02/19 01/03/19 01/03/19 Range/Units 20:32 06:59 06:59 RBC 3.00 L (4.2-5.4) M/uL Hgb 9.5 L (12.0-16.0) g/dL Hct 30.1 L (37-47) % MCV 100.3 H (80-100) fL MCHC 31.6 L (32-36) g/dL RDW Std Deviation 54.1 H (36.4-46.3) fL RDW Coeff of Jared 14.8 H (11.5-14.5) % BUN 60 H (7-18) mg/dl Creatinine 7.75 H* D (0.6-1.2) mg/dl BUN/Creatinine Ratio 7.7 L (10-20) POC Glucose 182 H (70-99) Calcium 8.1 L (8.5-10.1) mg/dl AST 12 L (15-37) U/L ALT 11 L (12-78) U/L Albumin 2.9 L (3.4-5.0) gm/dl Albumin/Globulin Ratio 0.7 L (0.9-2) 01/03/19 01/03/19 Range/Units 12:09 16:19 RBC (4.2-5.4) M/uL Hgb (12.0-16.0) g/dL Hct (37-47) % MCV (80-100) fL MCHC (32-36) g/dL RDW Std Deviation (36.4-46.3) fL RDW Coeff of Jared (11.5-14.5) % BUN (7-18) mg/dl Creatinine (0.6-1.2) mg/dl BUN/Creatinine Ratio (10-20) POC Glucose 111 H 117 H (70-99) Calcium (8.5-10.1) mg/dl AST (15-37) U/L ALT (12-78) U/L Albumin (3.4-5.0) gm/dl Albumin/Globulin Ratio (0.9-2) Telemetry: Sinus rhythm and sinus bradycardia. PG Care Time/CCT Total # of Minutes Spent Total Time Spent with Patient: Total time spent is greater than 50% in coordination of care (as documented) at patient's floor/unit and/or counseling patient:
[2019-01-03] MEDS: CITALOPRAM 20 MG TAB PO SCH (21:06)
[2019-01-03] MEDS: GABAPENTIN 300 MG CAP PO SCH (21:06)
[2019-01-03] MEDS: LEVOTHYROXINE SODIUM 100 MCG TABLET PO SCH (21:07)
[2019-01-03] MEDS: ATORVASTATIN 20 MG TAB PO SCH (21:08)
[2019-01-03] MEDS: INSULIN DETEMIR FLEXPEN/FLEX TOUCH 100 UNITS/ML 3ML SC SCH (21:09)
[2019-01-03] MEDS ORDERED: MoRPHine SULFATE 2 MG/ML CARP IV STA (22:33)
[2019-01-04] MEDS: HEPARIN SOD 5,000 UNIT/0.5 ML VIAL SQ SCH ×3 (05:34→21:02)
[2019-01-04 07:04] LABS: Hematocrit (blood only) 29.6 % (37-47); Hemoglobin 9.3 g/dL (12.0-16.0); Mean Corpuscular Hgb Conc 31.4 g/dL (32-36); Mean Corpuscular Volume 101.7 fL (80-100); Mean Platelet Volume 10.2 fL (7.4-10.4); Platelet Count 142 K/uL (130-400); RDW Coefficient of Variation 15.1 % (11.5-14.5); RDW Standard Deviation 54.7 fL (36.4-46.3); Red Blood Count 2.91 M/uL (4.2-5.4); White Blood Count 6.71 K/uL (4.8-10.8)
[2019-01-04 07:53] LABS: Albumin Globulin Ratio 0.7 (0.9-2); Albumin Level 2.8 gm/dl (3.4-5.0); BUN Creatinine Ratio 5.1 (10-20); Bilirubin,Total 0.3 mg/dl (0.2-1); Calcium 8.1 mg/dl (8.5-10.1); Est GFR (African American) 8.9; Est GFR (Non-African American) 7.7; Potassium 3.6 mmol/L (3.5-5.1); Total Protein 6.8 gm/dl (6.4-8.2)
[2019-01-04] MEDS: CARVEDILOL 25 MG TAB PO SCH ×3 (08:29→21:01)
[2019-01-04] MEDS: ASPIRIN 81 MG ECTAB PO SCH (08:29)
[2019-01-04] MEDS: PANTOprazole 40 MG TAB PO SCH ×2 (08:29→21:02)
[2019-01-04] MEDS: MAGNESIUM OXIDE 400 MG TAB PO SCH (08:29)
[2019-01-04] MEDS: SUCRALFATE 1 GM/10 ML UDC PO SCH ×4 (08:29→21:00)
[2019-01-04] MEDS: FAMOTIDINE 20 MG in SYRINGE 3 ML IV SCH ×2 (08:33→21:04)
--- NOTE | 2019-01-04 09:31 | Cardiology Progress Note ---
Date of Service January 04, 2019 Assessment & Plan (1) Abdominal pain, epigastric: Although she has a long history of abdominal discomfort which has been attributed to esophageal disease I was concerned that this was due to ischemic heart disease. Her catheterization suggest that this is not the case, it is conceivable that she has some type of myocarditis which could cause discomfort but I do not think it would be intermittent. I believe her abdominal discomfort is indeed GI in origin. (2) Elevated troponin: Her troponin had gradually increased, This suggests myocardial injury, possibly a Takatsubo type abnormality. Her troponin peaked at 12 and then dropped on December 31, 2018. This suggests resolution of the injury. (3) LBBB (left bundle branch block): She has a left bundle branch block which has not changed during her hospitalization. (4) Cardiomyopathy: She has severe left ventricular dysfunction which is a new finding this admission. I would treat this with heart failure medications, especially beta- blockade. Her blood pressure is better now on carvedilol 25 mg twice daily. Her heart rate is on the low side but she seems to tolerate it well. A repeat echocardiogram yesterday shows a similar finding although the ejection fraction might of improved slightly and there might be some improved function of the apex. This is consistent with stunning but her ejection fraction remains poor. At this point she does not have a lot of heart failure symptoms and I would be hopeful that over the long run her heart function would improve. Since clinically she does not have a lot of heart failure and her volume can be controlled by a dialysis I am not sure she would not be a surgical candidate, although it would clearly be high risk and perhaps better performed at a tertiary care center. As far as whether there is anything surgical that can be done I have no opinion on that. Subjective Physically she is feeling relatively well in the last she tries to eat where she develops abdominal discomfort. She does not have much in way of heart failure symptoms and denies orthopnea. She is not of chest discomfort other than her GI symptoms. She had decided to go home and discontinue dialysis because she was felt not to be a surgical candidate and she cannot go on living without eating. She told me she is "damned if I d I do and damned if I don't". Physical Exam Physical Exam: Constitutional: Alert, cooperative and in no distress. Pulmonary: Clear to auscultation bilaterally. Cardiac: Regular rhythm with no murmur, gallop or rub. Abdomen: Soft, nontender with normal bowel sounds. Extremities: No edema. Right-sided dialysis graft. Skin: No rash, ecchymoses or petechiae. Results & Data Vital Signs (Past 12 Hours) Vital Signs Temp Pulse Pulse Resp BP Pulse Ox 01/04/19 07:10 36.6 C 58 L 10 L 128/63 93 01/04/19 03:26 36.8 C 58 L 18 119/63 97 01/04/19 00:00 60 01/03/19 23:18 37.0 C 61 17 123/71 98 Laboratory Results Abnormal lab results 01/03/19 01/03/19 01/03/19 Range/Units 12:09 16:19 20:27 RBC (4.2-5.4) M/uL Hgb (12.0-16.0) g/dL Hct (37-47) % MCV (80-100) fL MCHC (32-36) g/dL RDW Std Deviation (36.4-46.3) fL RDW Coeff of Jared (11.5-14.5) % BUN (7-18) mg/dl Creatinine (0.6-1.2) mg/dl BUN/Creatinine Ratio (10-20) Glucose (70-99) mg/dl POC Glucose 111 H 117 H 128 H (70-99) Calcium (8.5-10.1) mg/dl AST (15-37) U/L ALT (12-78) U/L Albumin (3.4-5.0) gm/dl Albumin/Globulin Ratio (0.9-2) 01/04/19 01/04/19 01/04/19 Range/Units 06:46 06:46 07:35 RBC 2.91 L (4.2-5.4) M/uL Hgb 9.3 L (12.0-16.0) g/dL Hct 29.6 L (37-47) % MCV 101.7 H (80-100) fL MCHC 31.4 L (32-36) g/dL RDW Std Deviation 54.7 H (36.4-46.3) fL RDW Coeff of Jared 15.1 H (11.5-14.5) % BUN 26 H D (7-18) mg/dl Creatinine 5.15 H* D (0.6-1.2) mg/dl BUN/Creatinine Ratio 5.1 L (10-20) Glucose 113 H (70-99) mg/dl POC Glucose 125 H (70-99) Calcium 8.1 L (8.5-10.1) mg/dl AST 12 L (15-37) U/L ALT 11 L (12-78) U/L Albumin 2.8 L (3.4-5.0) gm/dl Albumin/Globulin Ratio 0.7 L (0.9-2) Diagnostic Findings Telemetry: Sinus rhythm and sinus bradycardia PG Care Time/CCT Total # of Minutes Spent Total Time Spent: 30 Total Time Spent with Patient: Total time spent is greater than 50% in coordinat ion of care (as documented) at patient's floor/unit and/or counseling patient:
[2019-01-04] MEDS: INSULIN ASPART 100 UNITS/ML 3 ML PEN SC SCH ×4 (09:50→22:08)
--- NOTE | 2019-01-04 10:24 | Nephrology Progress Note ---
Date of Service January 04, 2019 Assessment & Plan (1) End-stage renal disease (ESRD): -- On HD TTS schedule (4 hours, Qb 350 via AVF. 2K bath. EDW 99 kg) -- Volume status & electrolyte balance are acceptable. No acute indication for HD today -- Discussed continuing HD w/ Mrs. Patrick and her daughter this morning. She will continue while we explore options for treatment of her epigastric pain (2) Abdominal pain: -- Persistent epigastric pain. LFT's & lipase are normal. RUQ US negative for cholecystitis -- Barium swallow shows esophageal dysmotility and hiatal hernia. GI indicates that she has required surgery x 2 in the past to correct her hiatal hernia -- Consider transfer to tertiary care facility to assess options for hiatal hernia or feeding tube (3) Cardiomyopathy: -- Troponin is now trending down. EKG w/ new LBBB. Cardiac cath 12/30 revealed normal coronary arteries. Elevated troponin likely reflective of Takotsubo cardiomyopathy -- TTE demonstrates LVEF 20-25% with severe global hypokinesis with sparing of the basal segment, RASP 50-60 by estimate. Subjective Mrs. Patrick is tearful this morning. She was dialyzed yesterday without complication. Mrs. Patrick indicates that if her epigastric discomfort cannot be resolved she will stop dialysis Review of Systems Constitutional: no fever, no chills and no weakness Eyes: no worsening vision and no problem reported Ear, Nose, Mouth, Throat: no problem reported Respiratory: no cough and no dyspnea Cardiovascular: no chest pain, no palpitations and no edema Gastrointestinal: + abdominal pain and + nausea; no vomiting and no diarrhea/loose stools Genitourinary: no dysuria and no hematuria Musculoskeletal: + back pain Integumentary: no rash Neurologic: no falls, no dizziness and no confusion Physical Exam Constitutional: + ill appearing and + obese Eyes: PERRL, conjunctivae normal, anicteric sclerae ENMT: external ear and nose normal, oropharynx normal Neck: trachea midline, no thyromegaly Respiratory: normal respiratory effort, lungs clear to auscultation Cardiovascular: RRR, no murmur, no edema Extremities: + AV fistula (+ bruit) Gastrointestinal (Abdomen): Inspection/Auscultation: + hypoactive bowel sounds Percussion/Palpation: abdomen soft; abdomen nontender and no guarding Musculoskeletal: no cyanosis or clubbing, extremities motor strength 5/5 Skin: no rashes, warm and dry Neurologic: awake; not confused Results & Data Vital Signs (Past 12 Hours) Vital Signs Temp Pulse Pulse Resp BP Pulse Ox 01/04/19 07:10 36.6 C 58 L 10 L 128/63 93 01/04/19 03:26 36.8 C 58 L 18 119/63 97 01/04/19 00:00 60 01/03/19 23:18 37.0 C 61 17 123/71 98 Laboratory Results Laboratory Tests 01/04/19 01/04/19 06:46 06:46 WBC 6.71 Hgb 9.3 L Hct 29.6 L Plt Count 142 Sodium 136 Potassium 3.6 Chloride 100 Carbon Dioxide 28 BUN 26 H D Creatinine 5.15 H* D Glucose 113 H PG Care Time/CCT Total # of Minutes Spent Total Time Spent with Patient: Total time spent is greater than 50% in coordination of care (as documented) at patient's floor/unit and/or counseling patient:
--- NOTE | 2019-01-04 11:03 | Family Medicine Progress Note ---
Date of Service January 04, 2019 Assessment & Plan (1) End-stage renal disease (ESRD): Ms. Patrick is a 73-year-old female with a past medical history of end- stage renal disease, on dialysis, chronic CHF chronic anemia, hypothyroidism, hyperlipidemia, depression and anxiety who presented to [facility] due to epigastric pain, nausea and vomiting. She was admitted for bowel rest and IV antiemetics, and found to have an elevated troponin. Elevated Troponin with normal coronaries on [facility] Nonischemic cardiomyopathy -Patient has a history of chronically elevated troponin secondary to coronary artery disease and chronic renal disease -New spike this admission, with a peak of 12.6 - ECHO showed severely reduced EF (20-25%) with wall motion hypo to akinetic wall motion of right and left ventricles except for the basal aspects. (Roman difference to recent echo from earlier in the year showing EF of 55%) - Cardiology was consulted -> Patient underwent a cardiac catheterization, where she was found to have normal coronary arteries. - Patient appears to have a nonischemic cardiomyopathy -> myocarditis vs takutsubo vs Lyme - Lyme antibodies negative, most likely diagnosis is Takotsubo cardiomyopathy - Continue increased dose of carvedilol, daily aspirin and atorvastatin Repeat echo shows no significant changes, discussed cardiology and he feels that her cardiac function could very well improve Nausea/vomiting/abdominal pain - Patient has a history of chronic GERD, as well as dysphagia. She has had ongoing nausea, vomiting and epigastric pain since the removal of a silicone ring that was placed during a prior hiatal hernia repair four years ago. Had been doing okay until 24 hours before admission. She states she has never had an episode that she has had with unrelenting abdominal pain and nausea. No evidence of aortic dissection on imaging, no evidence for pancreatitis on labs CT abdomen/pelvis -> mild gallbladder distention with edema. Partial distention of urinary bladder with mild wall thickening. -> Follow-up right upper quadrant ultrasound showed gallbladder distention, however no inflammation -> LFTs within normal limits - Continue 20 mg IV famotidine twice daily and pantoprazole 40 mg twice daily - GI does not see a role for scope and recommends conservative management - Continue ondansetron 4 mg prn every 4 hours and promethazine 12.5 mg every 4 hours prn -Dilaudid 0.25 mg IV every 4 hours as needed for abdominal pain - Attempting clear fluids somewhat successful today though she struggled with them yesterday. GI recommended thoracic surgery consultation for possible hiatal hernia repair. Thoracic surgery declines intervention Called [facility] and discussed case with surgeons there who operated on her before, they are unable to offer any further treatments. Will place NG tube today and commence feeds Fever, leukocytosis -Patient spiked a fever of 38.1 C on 12/29 -Patient was placed on Zosyn, and has been afebrile since -Unsure of source of infection at this time. Patient had leukocytosis up to 17.8, this is slowly resolving and has returned back to normal today -No evidence of pneumonia or skin infection Zosyn d/c'd -Blood cultures negative x48 hours End Stage Renal Disease -Patient was admitted with hyperkalemia and EKG changes, this has now resolved -Nephrology consulted, currently managing hemodialysis. Receiving hemodialysis on Wednesday, , Wednesday -Daily BMPs, no significant electrolyte abnormalities noted Hypertension -Home hydralazine d/c'd, increased carvedilol for her cardiomyopathy Hypoxemia -Patient meant to wear 2 L of oxygen at home [id number]. She is currently saturating well on 2 L of oxygen by nasal cannula here -CT showed bilateral pleural effusions, as well as pulmonary edema, however patient is at her baseline with regards to breathing -Continue to monitor Depression -Continue home citalopram Hypothyroidism -Continue home levothyroxine Neuropathy -Continue home gabapentin F/E/N: clears; NG tube to be placed today, nutrition consulted for tube feeds. DVT PPx: Heparin 5000 units SQ 3 times daily Dispo: PCU (2) Fever: (3) Cardiomyopathy: (4) LBBB (left bundle branch block): (5) Abdominal pain, epigastric: 73-year-old female who presents with acute onset of nonbloody emesis, epigastric abdominal pain since 1 AM this morning. Her accompanies her at the bedside. Patient is in visible discomfort and nausea. helps provide the history. He states that she woke up this morning at 1 AM with acute onset of nausea. She has been emetic all day, denies blood in the vomitus. Poor p.o. intake. Of note, denies any loose stools. Denies any new or exotic foods. Denies any sick contacts. states that her issues with her reflux and nausea have progressively worsened since the esophageal band was removed, and according to her records it appears this has been since at least 2014. Patient denies cough or wheezing. She is currently on 4 L via oxygen mask. According to her record she is on 2 to 3 L at baseline for her COPD and severe sleep apnea. ED course: Fluids, Zofran, Phenergan. Assessment: abdominal pain 2/2 symptomatic hiatal hernia and esophageal dysmotility and dyspepsia -afebrile, no leukocytosis, no diarrhea Plan: -bowel rest, advance as tolerated -antiemetics -pain control FEN/GI: npo with sips, (advance as tolerated), NSS @100ml/hr x 1 day for hydration, PPI& H2B ordered IV here. DVT ppx: heparin sq CODE STATUS: DNR/DNI as discussed with pt and DISPO: tele given increased o2 demand and elev troponins. (6) Elevated troponin: (7) Vomiting: (8) Hernia, hiatal: (9) Poorly-controlled hypertension: (10) Depression with anxiety: (11) Dyslipidemia: (12) Dysphagia: (13) GERD without esophagitis: Supervising Physician Co-Signing Physician Notes Resident Physician Supervision Note: I independently interviewed and examined the patient and verified the bergeron history and physical, reviewed labs and image studies, discussed the case with the resident Dr. Harden and agree with the findings and care plan. Subjective Patient is feeling pretty well today, is denying any abdominal pain and is tolerating liquids well. She would like to pursue further treatment at this time is requesting a feeding tube to be placed. Talked patient about risks and benefits of feeding tube placement and elected to move forward with NG tube placement today. We will resume dialysis as normally scheduled. Review of Systems Review of Systems: Patient's abdominal Tammen is markedly reduced, no retching or vomiting today, patient tolerating thin liquids no solids. Physical Exam Physical Exam: Constitutional: Patient doing well sitting up in bed, no acute distress Eyes: Anicteric sclerae extraocular muscle movement intact bilaterally Neck: No unrealized detected Respiratory: Chest expansion symmetric, lung sounds vesicular bilaterally no wheezes rhonchi rales Cardiovascular: Regular rate and rhythm, no murmurs rubs heaves or gallops, minimal edema of the lower limbs Gastrointestinal: Patient with some tenderness to epigastric region and right upper quadrant, Results & Data Vital Signs (Past 12 Hours) Vital Signs Temp Pulse Pulse Resp BP Pulse Ox 01/04/19 07:10 36.6 C 58 L 10 L 128/63 93 01/04/19 03:26 36.8 C 58 L 18 119/63 97 01/04/19 00:00 60 01/03/19 23:18 37.0 C 61 17 123/71 98 PG Care Time/CCT Total # of Minutes Spent Total Time Spent with Patient: Total time spent is greater than 50% in coordination of care (as documented) at patient's floor/unit and/or counseling patient: Resident Activity Tracking Resident Involvement: Resident Care Provided Care Provided: Adult Hospital Medicine (1) Vomiting Nausea presence: unspecified Vomiting Intractability: unspecified Vomiting type: unspecified Qualified Code(s): R11.10 - Vomiting, unspecified
--- NOTE | 2019-01-04 11:14 | Palliative Care Progress Note ---
Date of Service January 04, 2019 Subjective Consult received. Spoke to attending physician and patient may be transferred out to tertiary care. Hold consult for now. Results & Data Vital Signs (Past 12 Hours) Vital Signs Temp Pulse Pulse Resp BP Pulse Ox 01/04/19 07:10 36.6 C 58 L 10 L 128/63 93 01/04/19 03:26 36.8 C 58 L 18 119/63 97 01/04/19 00:00 60 01/03/19 23:18 37.0 C 61 17 123/71 98 PG Care Time/CCT Total # of Minutes Spent Total Time Spent with Patient: Total time spent is greater than 50% in coordination of care (as documented) at patient's floor/unit and/or counseling patient:
[2019-01-04] MEDS ORDERED: INSULIN DETEMIR FLEXPEN/FLEX TOUCH 100 UNITS/ML 3ML SC ONE (13:15)
--- NOTE | 2019-01-04 13:19 | XRay Report ---
XR KUB/Abdomen 1 view CLINICAL HISTORY: 73 years-old Female presenting with CORESAFE PLACEMENT. TECHNIQUE: Single supine view of the abdomen was obtained. COMPARISON: CT from 12/30/2018 and plain radiograph from 12/29/2018. FINDINGS: Surgical clips again project over the epigastrium. Oral contrast is noted within the colon from recen t barium swallow study. Nonobstructive bowel gas pattern. No gross pneumoperitoneum. A tip of a weigh zeina catheter projects over the distal esophagus. Allowing for bowel gas and stool, no calcifications to suggest nephrolithiasis. Degenerative changes of the spine. Lung bases clear. IMPRESSION: 1. Weighted feeding catheter terminates in the distal esophagus; advancement recommended. Electronically signed by: Omar Anaya M.D. 01/04/2019 1:17 PM
--- NOTE | 2019-01-04 14:09 | XRay Report ---
XR KUB/Abdomen 1 view CLINICAL HISTORY: 73 years-old Female presenting with NG placement check. TECHNIQUE: Single supine view of the abdomen was obtained. COMPARISON: 01/04/2019 at 12:58 PM. FINDINGS: Weighted feeding catheter terminates at the level of the gastroesophageal junction. The feeding bernadette ter is looped in the esophagus more superiorly. Surgical clips project over the epigastrium. Nonobstructive bowel gas pattern with oral contrast in t he large bowel. No gross pneumoperitoneum align for supine technique. Degenerative changes of the spine. IMPRESSION: 1. Weighted feeding catheter terminates at the level of the gastroesophageal junction and is looped within the esophagus. Consider replacement of the guidewire and repositioning. Electronically signed by: Omar Anaya M.D. 01/04/2019 2:08 PM
--- NOTE | 2019-01-04 15:03 | Pharmacy Report ---
Pharmacy Glycemic Short Note 2 - Date of Service January 04, 2019 - Glycemic Short BSG Results (Last 24 hours): 01/03/19 01/03/19 01/04/19 16:19 20:27 06:46 Glucose 113 H POC Glucose 117 H 128 H 01/04/19 01/04/19 07:35 11:26 Glucose POC Glucose 125 H 209 H Outpatient Anti-Diabetic Meds * Levemir 20 units SQ BID * HbA1c: unreliable in the setting of renal failure/hemodialysis ASSESSMENT: 01/04/19: * Ms Patrick received 0 units of insulin yesterday, with stable BSGs (all slightly below goal range). * NG tube was inserted today and tube feeds were initiated. * Levemir provided this afternoon, as BSG was 209 pre-lunch (prior to TF initiation). Will give a small supplemental dose this evening, depending on BSGs. * As TF rate advances, will add scheduled Novolog for carb coverage if BSGs become elevated. * Novasource tube feeds: start at 15mL/hr -- titrate up by 10mL/hr q8h to goal of 45mL/hr 01/03/19 * Patient received 15 units of insulin yesterday, with a majority of BSGs below goal range. * Patient was NPO for an EGD yesterday. Diet has been resumed today (AHA/Renal/clear liquids). * Will continue conservative dosing of insulin d/t blood sugar trend. Expect that insulin needs may begin to increase as diet advances. PLAN FOR INPATIENT GLYCEMIC CONTROL: * Basal insulin * Levemir 10 units x1 dose this afternoon, then 0-15 units this evening based on BSG * Bolus insulin * NovoLog per scale ACHS or Q6hrs while NPO * Goal Range: Low 140 mg/dL - High 180 mg/dL * Correction Factor: 20 mg/dL/unit * Nutritional / Prandial insulin per carb ratio of 1 unit per 8 grams CHO consumed CHO provided by tube feeds (Novasource): Novasource @ 15mL/hr = 11gm CHO per 4 hours 25mL/hr = 18gm CHO per 4 hours 35mL/hr = 25gm CHO per 4 hours 45mL/hr = 33gm CHO per 4 hours PLAN FOR DISCHARGE: * HD pt * Patient's A1c = 6.0% * However, this result is likely somewhat unreliable in ESRD patients d/t interactions between the A1c analyzing technique and high levels of urea in ESRD, reduced RBC life span, iron deficiency anemia, and EPO administration. * Patient can likely resume home regimen on discharge, as long as she does not report having episodes of hypoglycemia. * Recommend close f/u with outpatient provider after discharge to work on stabilizing glycemic regimen.
--- NOTE | 2019-01-04 16:09 | XRay Report ---
KUB CLINICAL HISTORY: confirm coresafe placement COMPARISON STUDY: KUB performed earlier today. FINDINGS: Oral contrast within the colon and rectum is again noted. Tip of feeding tube projects over the pylorus. There is no evidence for a bowel obstruction. Upper abdominal surgical clips are noted. Colonic diverticulosis is present. IMPRESSION: Tip of feeding tube projects over the pylorus. Electronically signed by: Cyrus Serna M.D. 01/04/2019 4:08 PM
[2019-01-04] MEDS: NOVASOURCE RENAL 2.0 CAL 1000ML BAG NG SCH (18:19)
[2019-01-04] MEDS: CITALOPRAM 20 MG TAB PO SCH (21:00)
[2019-01-04] MEDS: ATORVASTATIN 20 MG TAB PO SCH (21:01)
[2019-01-04] MEDS: GABAPENTIN 300 MG CAP PO SCH (21:01)
[2019-01-04] MEDS: LEVOTHYROXINE SODIUM 100 MCG TABLET PO SCH (21:02)
[2019-01-04] MEDS: INSULIN DETEMIR FLEXPEN/FLEX TOUCH 100 UNITS/ML 3ML SC SCH (22:07)
[2019-01-05] MEDS: HEPARIN SOD 5,000 UNIT/0.5 ML VIAL SQ SCH ×3 (05:25→20:58)
[2019-01-05 06:54] LABS: Hematocrit (blood only) 29.6 % (37-47); Hemoglobin 9.3 g/dL (12.0-16.0); Mean Corpuscular Hgb Conc 31.4 g/dL (32-36); Mean Corpuscular Volume 101.4 fL (80-100); Mean Platelet Volume 9.9 fL (7.4-10.4); Platelet Count 128 K/uL (130-400); RDW Coefficient of Variation 15.1 % (11.5-14.5); RDW Standard Deviation 54.4 fL (36.4-46.3); Red Blood Count 2.92 M/uL (4.2-5.4); White Blood Count 6.25 K/uL (4.8-10.8)
[2019-01-05] MEDS ORDERED: SODIUM CHLORIDE 0.9% 1000ML 1,000 ML IV PRN (07:00)
[2019-01-05] MEDS ORDERED: HEPARIN SOD (PORCINE) 1000 UNIT/ML 10 ML VIAL IV ONE (07:00)
[2019-01-05] MEDS ORDERED: EPOETIN ALFA 10,000 UNITS/ML VIAL IV ONE (07:00)
[2019-01-05 07:46] LABS: Albumin Globulin Ratio 0.8 (0.9-2); Albumin Level 2.7 gm/dl (3.4-5.0); BUN Creatinine Ratio 5.2 (10-20); Bilirubin,Total 0.2 mg/dl (0.2-1); Calcium 7.9 mg/dl (8.5-10.1); Creatinine Clr Calc Pharmacy 8.7 ml/min; Est GFR (African American) 6.7; Est GFR (Non-African American) 5.8; Globulin 3.5 gm/dl (2.5-4.0); Potassium 3.4 mmol/L (3.5-5.1); Total Protein 6.2 gm/dl (6.4-8.2)
[2019-01-05] MEDS: CARVEDILOL 25 MG TAB PO SCH ×2 (07:54→20:55)
[2019-01-05] MEDS: ASPIRIN 81 MG ECTAB PO SCH (07:54)
[2019-01-05] MEDS: SUCRALFATE 1 GM/10 ML UDC PO SCH ×4 (07:54→20:47)
[2019-01-05] MEDS: MAGNESIUM OXIDE 400 MG TAB PO SCH (07:54)
[2019-01-05] MEDS: PANTOprazole 40 MG TAB PO SCH ×2 (07:54→20:48)
[2019-01-05] MEDS: INSULIN ASPART 100 UNITS/ML 3 ML PEN SC SCH ×5 (07:57→21:19)
[2019-01-05] MEDS: FAMOTIDINE 20 MG in SYRINGE 3 ML IV SCH ×2 (07:58→20:49)
--- NOTE | 2019-01-05 09:17 | Pharmacy Report ---
Pharmacy Glycemic Short Note 2 - Date of Service January 05, 2019 - Glycemic Short BSG Results (Last 24 hours): 01/04/19 01/04/19 01/04/19 11:26 16:35 20:14 Glucose POC Glucose 209 H 159 H 109 H 01/05/19 01/05/19 06:39 07:21 Glucose 133 H POC Glucose 141 H Outpatient Anti-Diabetic Meds * Levemir 20 units SQ BID * HbA1c: unreliable in the setting of renal failure/hemodialysis ASSESSMENT: * Ms Patrick received 20 units of insulin yesterday, with stable BSGs * Continuous tube feeds were initiated - currently running at 35ml/hr. Goal is 45ml/hr * CHO coverage will be needed for continuous tube feedings. Will use NovoLog Q4hrs (or could consider regular q6hrs) * Novasource tube feeds: start at 15mL/hr -- titrate up by 10mL/hr q8h to goal of 45mL/hr * CHO provided by tube feeds (Novasource): Novasource @ 15mL/hr = 11gm CHO per 4 hours 25mL/hr = 18gm CHO per 4 hours 30mL/hr = 22gm CHO per 4 hours 45mL/hr = 33gm CHO per 4 hours PLAN FOR INPATIENT GLYCEMIC CONTROL: * Basal insulin * Levemir 0-15 units SQ Q24hrs - dose based on BSG * BSG below 140 mg/dl --> 0 units * BSG 141-160 mg/dl --> 5 units * BSG 161-200 mg/dl --> 10 units * BSG above 200 mg/dl --> 15 units * Bolus insulin * NovoLog per scale ACHS or Q6hrs while NPO * Goal Range: Low 140 mg/dL - High 180 mg/dL * Correction Factor: 20 mg/dL/unit * Nutritional / Prandial insulin per carb ratio of 1 unit per 10 grams CHO consumed {loosen CR since we are giving Q4hrs} CHO provided by tube feeds (Novasource): Novasource @ 15mL/hr = 11gm CHO per 4 hours 25mL/hr = 18gm CHO per 4 hours 30mL/hr = 22gm CHO per 4 hours 45mL/hr = 33gm CHO per 4 hours PLAN FOR DISCHARGE: * HD pt * Patient's A1c = 6.0% * However, this result is likely somewhat unreliable in ESRD patients d/t interactions between the A1c analyzing technique and high levels of urea in ESRD, reduced RBC life span, iron deficiency anemia, and EPO administration. * Patient can likely resume home regimen on discharge, as long as she does not report having episodes of hypoglycemia. * Recommend close f/u with outpatient provider after discharge to work on stabilizing glycemic regimen.
--- NOTE | 2019-01-05 09:28 | Nephrology Progress Note ---
Date of Service January 05, 2019 Assessment & Plan (1) End-stage renal disease (ESRD): -- On HD TTS schedule (4 hours, Qb 350 via AVF. 2K bath. EDW 99 kg) -- Discussed continuing HD w/ Mrs. Patrick this morning. She is agreeable -- HD today. Orders placed in EMR and HD RN notified (2) Abdominal pain: -- Epigastric pain: LFT's & lipase are normal. RUQ US negative for cholecystitis -- Barium swallow shows esophageal dysmotility and hiatal hernia. GI indicates that she has required surgery x 2 in the past to correct her hiatal hernia -- Primary service has contacted surgeon at [facility]. No further surgical options for hiatal hernia. Patient will pursue PEG tube feedings (3) Cardiomyopathy: -- Troponin is now trending down. EKG w/ new LBBB. Cardiac cath 12/30 revealed normal coronary arteries. Elevated troponin likely reflective of Takotsubo cardiomyopathy -- TTE demonstrates LVEF 20-25% with severe global hypokinesis with sparing of the basal segment, RASP 50-60 by estimate. Subjective Mrs. Patrick was seen & examined in her hospital room this morning. She has a core safe feeding tube in place and states that her abdominal discomfort is improved. Mrs. Patrick is agreeable to PEG tube placement and continuing HD at this time. Review of Systems Constitutional: no fever, no chills and no weakness Eyes: no worsening vision and no problem reported Ear, Nose, Mouth, Throat: no problem reported Respiratory: no cough and no dyspnea Cardiovascular: no chest pain, no palpitations and no edema Gastrointestinal: no abdominal pain, no vomiting and no diarrhea/loose stools Genitourinary: no dysuria and no hematuria Musculoskeletal: + back pain Integumentary: no rash Neurologic: no falls, no dizziness and no confusion Physical Exam Constitutional: + ill appearing and + obese Eyes: PERRL, conjunctivae normal, anicteric sclerae ENMT: external ear and nose normal, oropharynx normal Neck: trachea midline, no thyromegaly Respiratory: normal respiratory effort, lungs clear to auscultation Cardiovascular: RRR, no murmur, no edema Extremities: + AV fistula (+ bruit) Gastrointestinal (Abdomen): Inspection/Auscultation: + hypoactive bowel sounds Percussion/Palpation: abdomen soft; abdomen nontender and no guarding Musculoskeletal: no cyanosis or clubbing, extremities motor strength 5/5 Skin: no rashes, warm and dry Neurologic: awake; not confused Results & Data Vital Signs (Past 12 Hours) Vital Signs Temp Pulse Pulse Resp BP Pulse Ox 01/05/19 09:13 58 L 127/59 L 01/05/19 07:25 36.4 C L 57 L 16 108/36 L 94 01/05/19 03:56 36.7 C 55 L 18 106/59 L 96 01/05/19 00:00 57 L 01/04/19 23:50 36.6 C 56 L 19 126/62 97 Laboratory Results Laboratory Tests 01/05/19 01/05/19 06:39 06:39 WBC 6.25 Hgb 9.3 L Hct 29.6 L Plt Count 128 L Sodium 135 L Potassium 3.4 L Chloride 100 Carbon Dioxide 28 BUN 34 H Creatinine 6.53 H* D Glucose 133 H PG Care Time/CCT Total # of Minutes Spent Total Time Spent with Patient: Total time spent is greater than 50% in coordination of care (as documented) at patient's floor/unit and/or counseling patient:
[2019-01-05] MEDS: HEPARIN SOD (PORCINE) 1000 UNIT/ML 10 ML VIAL IV SCH (10:25)
--- NOTE | 2019-01-05 12:55 | Family Medicine Progress Note ---
Date of Service January 05, 2019 Assessment & Plan (1) End-stage renal disease (ESRD): Ms. Patrick is a 73-year-old female with a past medical history of end- stage renal disease, on dialysis, chronic CHF chronic anemia, hypothyroidism, hyperlipidemia, depression and anxiety who presented to [facility] due to epigastric pain, nausea and vomiting. Elevated Troponin with normal coronaries on [facility] Nonischemic cardiomyopathy -Patient has a history of chronically elevated troponin secondary to coronary artery disease and chronic renal disease -New spike this admission, with a peak of 12.6 - ECHO showed severely reduced EF (20-25%) with wall motion hypo to akinetic wall motion of right and left ventricles except for the basal aspects. (Roman difference to recent echo from earlier in the year showing EF of 55%) - Cardiology was consulted -> Patient underwent a cardiac catheterization, where she was found to have normal coronary arteries. - Patient appears to have a nonischemic cardiomyopathy -> myocarditis vs takutsubo vs Lyme - Lyme antibodies negative, most likely diagnosis is Takotsubo cardiomyopathy - Continue increased dose of carvedilol, daily aspirin and atorvastatin Repeat echo shows no significant changes, discussed cardiology and he feels that her cardiac function could very well improve with time Nausea/vomiting/abdominal pain - Patient has a history of chronic GERD, as well as dysphagia. She has had ongoing nausea, vomiting and epigastric pain since the removal of a silicone ring that was placed during a prior hiatal hernia repair four years ago. Had been doing okay until 24 hours before admission. She states she has never had an episode that she has had with unrelenting abdominal pain and nausea. No evidence of aortic dissection on imaging, no evidence for pancreatitis on labs CT abdomen/pelvis -> mild gallbladder distention with edema. Partial distention of urinary bladder with mild wall thickening. -> Follow-up right upper quadrant ultrasound showed gallbladder distention, however no inflammation -> LFTs within normal limits - Continue 20 mg IV famotidine twice daily and pantoprazole 40 mg twice daily - GI does not see a role for scope and recommends conservative management - Continue ondansetron 4 mg prn every 4 hours and promethazine 12.5 mg every 4 hours prn -Dilaudid 0.25 mg IV every 4 hours as needed for abdominal pain - Attempting clear fluids somewhat successful today though she struggled with them yesterday. GI recommended thoracic surgery consultation for possible hiatal hernia repair. Thoracic surgery declines intervention Called [facility] and discussed case with surgeons there who operated on her before, they are unable to offer any further treatments. NG tube placed yesterday tolerating well Patient would like to have PEG tube placed GI recommending NG tube and waiting for possible heart function recovery Fever, leukocytosis -Patient spiked a fever of 38.1 C on 12/29 -Patient was placed on Zosyn, and has been afebrile since -Unsure of source of infection at this time. Patient had leukocytosis up to 17.8, this is slowly resolving and has returned back to normal today -No evidence of pneumonia or skin infection Zosyn d/c'd -Blood cultures negative x48 hours End Stage Renal Disease -Patient was admitted with hyperkalemia and EKG changes, this has now resolved -Nephrology consulted, currently managing hemodialysis. Receiving hemodialysis on Wednesday, , Wednesday -Daily BMPs, patient for dialysis today Hypertension -Home hydralazine d/c'd, increased carvedilol for her cardiomyopathy Hypoxemia -Patient meant to wear 2 L of oxygen at home [id number]. She is currently saturating well on 2 L of oxygen by nasal cannula here -CT showed bilateral pleural effusions, as well as pulmonary edema, however patient is at her baseline with regards to breathing -Continue to monitor Depression -Continue home citalopram Hypothyroidism -Continue home levothyroxine Neuropathy -Continue home gabapentin F/E/N: NG tube goal feed is 45 ml/hour DVT PPx: Heparin 5000 units SQ 3 times daily Dispo: Will consider transferring to med-surg Supervising Physician Co-Signing Physician Notes I personally examined the patient and verified all bergeron points of history and exam, discussed case, and agree with decision making with Dr Harden. Feeling okay on tube feeds. Has had a little bit of diarrhea. No abdominal pain. Tolerating tube feeds well otherwise. Vitals noted, in general she is awake alert pleasant no distress. HEENT normocephalic atraumatic mucous members moist. Breathing unlabored no accessory muscle use good effort. Abdomen soft nondistended nontender no masses organomegaly skin shows no rashes no pallor or icterus Esophageal dysmotility/upper GI dysfunctiondoing well on NG tube feeds, anticipate PEG or G-tube placement probably in the next few days. Continue supportive care otherwise. Takotsubo cardiomyopathyappearing stable. Continue current care DVT proph - heparin SQ Subjective Ms. Patrick is doing well this morning, she is feeling in higher spirits about her decision to go forward with feeding tube. She has had only mild abdominal pain and no regurgitation. She has not had any other concerning symptoms. has dialysis later this morning. Review of Systems Review of Systems: All systems reviewed & are unremarkable except as noted in HPI & below Physical Exam Physical Exam: Cor-Safe in place, patient resting comfortably in bed calm and cooperative. Eyes: EOMMI bilaterally, anicteric sclerae Respiratory: Lungs clear to auscultation, chest expansion symmetric. Cardiovascular: Heart sounds dual, no murmurs rubs skips or gallops, regular rat e regular rhythm Abdomen: Soft, mildly tender Results & Data Vital Signs (Past 12 Hours) Vital Signs Temp Pulse Pulse Resp BP Pulse Ox 01/05/19 09:13 58 L 127/59 L 01/05/19 08:00 54 L 01/05/19 07:25 36.4 C L 57 L 16 108/36 L 94 01/05/19 03:56 36.7 C 55 L 18 106/59 L 96 PG Care Time/CCT Total # of Minutes Spent Total Time Spent with Patient: Total time spent is greater than 50% in coordination of care (as documented) at patient's floor/unit and/or counseling patient: Resident Activity Tracking Resident Involvement: Resident Care Provided Care Provided: Adult Hospital Medicine
[2019-01-05] MEDS: NOVASOURCE RENAL 2.0 CAL 1000ML BAG NG SCH (19:07)
[2019-01-05] MEDS: ATORVASTATIN 20 MG TAB PO SCH (20:48)
[2019-01-05] MEDS: LEVOTHYROXINE SODIUM 100 MCG TABLET PO SCH (20:48)
[2019-01-05] MEDS: CITALOPRAM 20 MG TAB PO SCH (20:48)
[2019-01-05] MEDS: GABAPENTIN 300 MG CAP PO SCH (20:48)
[2019-01-05] MEDS: INSULIN DETEMIR FLEXPEN/FLEX TOUCH 100 UNITS/ML 3ML SC SCH (20:50)
[2019-01-06] MEDS: INSULIN ASPART 100 UNITS/ML 3 ML PEN SC SCH ×6 (01:17→21:16)
[2019-01-06] MEDS ORDERED: DiphenhydrAMINE HCL 50 MG/ML VIAL IV STA ×2 (02:11→22:43)
[2019-01-06] MEDS: HEPARIN SOD 5,000 UNIT/0.5 ML VIAL SQ SCH ×3 (05:00→21:15)
[2019-01-06 06:16] LABS: Hematocrit (blood only) 30.4 % (37-47); Hemoglobin 9.4 g/dL (12.0-16.0); Mean Corpuscular Hgb Conc 30.9 g/dL (32-36); Mean Corpuscular Volume 104.5 fL (80-100); Mean Platelet Volume 10.5 fL (7.4-10.4); Platelet Count 145 K/uL (130-400); RDW Coefficient of Variation 15.5 % (11.5-14.5); RDW Standard Deviation 57.7 fL (36.4-46.3); Red Blood Count 2.91 M/uL (4.2-5.4); White Blood Count 8.56 K/uL (4.8-10.8)
[2019-01-06 06:40] LABS: Albumin Level 2.9 gm/dl (3.4-5.0); BUN Creatinine Ratio 5.2 (10-20); Calcium 7.6 mg/dl (8.5-10.1); Creatinine Clr Calc Pharmacy 13.3 ml/min; Est GFR (African American) 10.6; Est GFR (Non-African American) 9.2; Potassium 3.4 mmol/L (3.5-5.1)
[2019-01-06 06:43] LABS: Albumin Globulin Ratio 0.8 (0.9-2); Bilirubin,Total 0.3 mg/dl (0.2-1); Globulin 3.8 gm/dl (2.5-4.0); Phosphorus 2.5 mg/dl (2.5-4.9); Total Protein 6.7 gm/dl (6.4-8.2)
--- NOTE | 2019-01-06 08:01 | Pharmacy Report ---
Pharmacy Glycemic Short Note 2 - Date of Service January 06, 2019 - Glycemic Short BSG Results (Last 24 hours): 01/05/19 01/05/19 01/05/19 14:34 16:20 20:15 Glucose POC Glucose 150 H 184 H 237 H 01/06/19 01/06/19 01/06/19 00:51 04:31 05:38 Glucose 141 H POC Glucose 187 H 153 H Outpatient Anti-Diabetic Meds * Levemir 20 units SQ BID * HbA1c: unreliable in the setting of renal failure/hemodialysis ASSESSMENT: * Ms Patrick received 39 units of insulin yesterday. This is increased from her typical total daily dose d/t hyperglycemia secondary to continuous tube feeds * Pt with mild hyperglycemia after HD - resolved with current orders * Pt will need basal insulin while on tube feeds - will adjust Lantus dosing parameters slightly to ensure adequate dosing given * Continuous tube feeds were initiated - currently running at goal rate of 45ml/hr * CHO coverage will be needed for continuous tube feedings. Will use NovoLog Q4hrs (or could consider regular q6hrs) * Novasource tube feeds: start at 15mL/hr -- titrate up by 10mL/hr q8h to goal of 45mL/hr * CHO provided by tube feeds (Novasource): Novasource @ 15mL/hr = 11gm CHO per 4 hours 25mL/hr = 18gm CHO per 4 hours 30mL/hr = 22gm CHO per 4 hours 45mL/hr = 33gm CHO per 4 hours PLAN FOR INPATIENT GLYCEMIC CONTROL: * Basal insulin * Levemir 0-15 units SQ Q24hrs - dose based on BSG * BSG below 140 mg/dl --> 0 units * BSG 141-160 mg/dl --> 10 units * BSG above 160 mg/dl --> 15 units * Bolus insulin * NovoLog per scale ACHS or Q6hrs while NPO * Goal Range: Low 140 mg/dL - High 180 mg/dL * Correction Factor: 20 mg/dL/unit * Nutritional / Prandial insulin per carb ratio of 1 unit per 10 grams CHO consumed {loosen CR since we are giving Q4hrs} CHO provided by tube feeds (Novasource): Novasource @ 15mL/hr = 11gm CHO per 4 hours 25mL/hr = 18gm CHO per 4 hours 30mL/hr = 22gm CHO per 4 hours 45mL/hr = 33gm CHO per 4 hours PLAN FOR DISCHARGE: * HD pt * Patient's A1c = 6.0% * However, this result is likely somewhat unreliable in ESRD patients d/t interactions between the A1c analyzing technique and high levels of urea in ESRD, reduced RBC life span, iron deficiency anemia, and EPO administration. * Patient can likely resume home regimen on discharge, as long as she does not report having episodes of hypoglycemia. * Recommend close f/u with outpatient provider after discharge to work on stabilizing glycemic regimen.
--- NOTE | 2019-01-06 08:49 | Family Medicine Progress Note ---
Date of Service January 06, 2019 Assessment & Plan (1) End-stage renal disease (ESRD): Ms. Patrick is a 73-year-old female with a past medical history of end- stage renal disease, on dialysis, chronic CHF chronic anemia, hypothyroidism, hyperlipidemia, depression and anxiety who presented to [facility] due to epigastric pain, nausea and vomiting. Elevated Troponin with normal coronaries on [facility] Nonischemic cardiomyopathy -Patient has a history of chronically elevated troponin secondary to coronary artery disease and chronic renal disease -New spike this admission, with a peak of 12.6 - ECHO showed severely reduced EF (20-25%) with wall motion hypo to akinetic wall motion of right and left ventricles except for the basal aspects. (Roman difference to recent echo from earlier in the year showing EF of 55%) - Cardiology was consulted -> Patient underwent a cardiac catheterization, where she was found to have normal coronary arteries. - Patient appears to have a nonischemic cardiomyopathy -> myocarditis vs takutsubo vs Lyme - Lyme antibodies negative, most likely diagnosis is Takotsubo cardiomyopathy - Continue increased dose of carvedilol, daily aspirin and atorvastatin Repeat echo shows no significant changes, discussed cardiology and he feels that her cardiac function could very well improve with time Nausea/vomiting/abdominal pain - Patient has a history of chronic GERD, as well as dysphagia. She has had ongoing nausea, vomiting and epigastric pain since the removal of a silicone ring that was placed during a prior hiatal hernia repair four years ago. Had been doing okay until 24 hours before admission. She states she has never had an episode that she has had with unrelenting abdominal pain and nausea. No evidence of aortic dissection on imaging, no evidence for pancreatitis on labs CT abdomen/pelvis -> mild gallbladder distention with edema. Partial distention of urinary bladder with mild wall thickening. -> Follow-up right upper quadrant ultrasound showed gallbladder distention, however no inflammation -> LFTs within normal limits - Continue 20 mg IV famotidine twice daily and pantoprazole 40 mg twice daily - GI does not see a role for scope and recommends conservative management - Continue ondansetron 4 mg prn every 4 hours and promethazine 12.5 mg every 4 hours prn -Dilaudid 0.25 mg IV every 4 hours as needed for abdominal pain - Attempting clear fluids somewhat successful today though she struggled with them yesterday. GI recommended thoracic surgery consultation for possible hiatal hernia repair. Thoracic surgery declines intervention Called [facility] and discussed case with surgeons there who operated on her before, they are unable to offer any further treatments. NG tube placed yesterday tolerating well Patient would like to have PEG tube placed GI recommending NG tube and waiting for possible heart function recovery Fever, leukocytosis -Patient spiked a fever of 38.1 C on 12/29 -Patient was placed on Zosyn, and has been afebrile since -Unsure of source of infection at this time. Patient had leukocytosis up to 17.8, this is slowly resolving and has returned back to normal today -No evidence of pneumonia or skin infection Zosyn d/c'd -Blood cultures negative x48 hours End Stage Renal Disease -Patient was admitted with hyperkalemia and EKG changes, this has now resolved -Nephrology consulted, currently managing hemodialysis. Receiving hemodialysis on Wednesday, , Wednesday -Daily BMPs, patient for dialysis TT Hypertension -Home hydralazine d/c'd, increased carvedilol for her cardiomyopathy Hypoxemia -Patient meant to wear 2 L of oxygen at home [id number]. She is currently saturating well on 2 L of oxygen by nasal cannula here -CT showed bilateral pleural effusions, as well as pulmonary edema, however patient is at her baseline with regards to breathing -Continue to monitor Depression -Continue home citalopram Hypothyroidism -Continue home levothyroxine Neuropathy -Continue home gabapentin F/E/N: NG tube feed with dialysis diet; goal feeding is 45 ml/hour DVT PPx: Heparin 5000 units SQ 3 times daily Dispo: Med-surg Supervising Physician Co-Signing Physician Notes I personally examined the patient and verified all bergeron points of history and exam, discussed case, and agree with decision making with Dr Harden. Feeling okay on tube feeds. no other new complaints. input from nephrology appreciated. Vitals noted, in general she is awake alert pleasant no distress. HEENT normo cephalic atraumatic mucous members moist. Breathing unlabored no accessory muscle use good effort. no pallor or icterus Esophageal dysmotility/upper GI dysfunctiondoing well on NG tube feeds, agree w nephro - if able to tolerate liquid nutrition well, could possibly avoid or delay PEG; if unable, then move towards PEG early next week. Takotsubo cardiomyopathyappearing stable. no decompensation. Continue current care DVT proph - heparin SQ Subjective Ms. Patrick is sleeping comfortably this morning starters I came in. As she awoke she tells me she is feeling well today has absolutely no abdominal pain which all appears to have been secondary to her swallowing difficulties. She has no questions or concerns this morning. Review of Systems Review of Systems: All systems reviewed & are unremarkable except as noted in HPI & below Physical Exam Physical Exam: Cor-Safe in place, patient resting comfortably in bed calm and cooperative. Eyes: EOMMI bilaterally, anicteric sclerae ENMT: No abnormalities detected patient mucous membranes appear moist Respiratory: Lungs clear to auscultation, chest expansion symmetric. Cardiovascular: Heart sounds dual, no murmurs rubs skips or gallops, regular rate regular rhythm Abdomen: Soft, nontender, no masses detected no organomegaly Neuro: Patient awake alert and oriented x3, much less somnolent than she is been previously Results & Data Vital Signs (Past 12 Hours) Vital Signs Temp Pulse Pulse Resp BP Pulse Ox 01/06/19 07:33 36.8 C 62 18 120/64 99 01/05/19 23:49 36.8 C 66 16 122/60 99 PG Care Time/CCT Total # of Minutes Spent Total Time Spent with Patient: Total time spent is greater than 50% in coordination of care (as documented) at patient's floor/unit and/or counseling patient:
[2019-01-06] MEDS: MAGNESIUM OXIDE 400 MG TAB PO SCH (08:59)
[2019-01-06] MEDS: CARVEDILOL 25 MG TAB PO SCH ×2 (09:00→21:12)
[2019-01-06] MEDS: PANTOprazole 40 MG TAB PO SCH ×2 (09:00→21:12)
[2019-01-06] MEDS: ASPIRIN 81 MG ECTAB PO SCH (09:00)
[2019-01-06] MEDS: SUCRALFATE 1 GM/10 ML UDC PO SCH ×4 (09:01→21:14)
[2019-01-06] MEDS: FAMOTIDINE 20 MG in SYRINGE 3 ML IV SCH ×2 (10:03→21:11)
--- NOTE | 2019-01-06 10:26 | Nephrology Progress Note ---
Date of Service January 06, 2019 Assessment & Plan (1) End-stage renal disease (ESRD): -- On HD TTS schedule (4 hours, Qb 350 via AVF. 2K bath. EDW 99 kg) -- Volume status and electrolyte balance are acceptable. No acute indication for HD today -- I have spoken to HD RN this morning. Next HD scheduled for am. Orders have been placed in EMR (2) Abdominal pain: -- Epigastric pain: LFT's & lipase are normal. RUQ US negative for cholecystitis -- Barium swallow shows esophageal dysmotility and hiatal hernia. GI indicates that she has required surgery x 2 in the past to correct her hiatal hernia -- Primary service has contacted surgeon at [place]. No further surgical options for hiatal hernia. Patient is being considered for PEG tube placement -- Patient is symptomatically improved following core safe placement and initiation of liquid tube feeding. Recommend keeping core safe in place over weekend and transitioning to oral Nepro feeding. If no recurrent abdominal pain then remove core safe and d/c plans for PEG tube. If discomfort recurs then discuss PEG placement w/ GI (3) Cardiomyopathy: -- Troponin is now trending down. EKG w/ new LBBB. Cardiac cath 12/30 revealed normal coronary arteries. Elevated troponin likely reflective of Takotsubo cardiomyopathy -- TTE demonstrates LVEF 20-25% with severe global hypokinesis with sparing of the basal segment, RASP 50-60 by estimate. Subjective Mrs. Patrick was seen & examined in her hospital room this morning. She was dialyzed yesterday for 2 L UF without complication. Mrs. Patrick reports that her abdominal discomfort has resolved following core safe tube feedings Review of Systems Constitutional: no fever, no chills and no weakness Eyes: no worsening vision and no problem reported Ear, Nose, Mouth, Throat: no problem reported Respiratory: no cough and no dyspnea Cardiovascular: no chest pain, no palpitations and no edema Gastrointestinal: no abdominal pain, no nausea, no vomiting and no diarrhea/loose stools Genitourinary: no dysuria and no hematuria Musculoskeletal: no back pain Integumentary: no rash Neurologic: no falls, no dizziness and no confusion Physical Exam Constitutional: + ill appearing and + obese Eyes: PERRL, conjunctivae normal, anicteric sclerae ENMT: external ear and nose normal, oropharynx normal Neck: trachea midline, no thyromegaly Respiratory: normal respiratory effort, lungs clear to auscultation Cardiovascular: RRR, no murmur, no edema Extremities: + AV fistula (+ bruit) Gastrointestinal (Abdomen): Inspection/Auscultation: normal bowel sounds Percussion/Palpation: abdomen soft; abdomen nontender and no guarding Musculoskeletal: no cyanosis or clubbing, extremities motor strength 5/5 Skin: no rashes, warm and dry Neurologic: awake; not confused Results & Data Vital Signs (Past 12 Hours) Vital Signs Temp Pulse Pulse Resp BP Pulse Ox 01/06/19 07:33 36.8 C 62 18 120/64 99 01/05/19 23:49 36.8 C 66 16 122/60 99 Laboratory Results Laboratory Tests 01/06/19 01/06/19 05:38 05:38 WBC 8.56 Hgb 9.4 L Hct 30.4 L Plt Count 145 Sodium 134 L Potassium 3.4 L Chloride 98 Carbon Dioxide 29 BUN 23 H Creatinine 4.45 H D Glucose 141 H PG Care Time/CCT Total # of Minutes Spent Total Time Spent with Patient: Total time spent is greater than 50% in coordination of care (as documented) at patient's floor/unit and/or counseling patient:
[2019-01-06] MEDS: ATORVASTATIN 20 MG TAB PO SCH (21:12)
[2019-01-06] MEDS: GABAPENTIN 300 MG CAP PO SCH (21:12)
[2019-01-06] MEDS: LEVOTHYROXINE SODIUM 100 MCG TABLET PO SCH (21:14)
[2019-01-06] MEDS: INSULIN DETEMIR FLEXPEN/FLEX TOUCH 100 UNITS/ML 3ML SC SCH (21:15)
[2019-01-06] MEDS: CITALOPRAM 20 MG TAB PO SCH (21:15)
[2019-01-07] MEDS: INSULIN ASPART 100 UNITS/ML 3 ML PEN SC SCH ×6 (00:42→21:23)
[2019-01-07] MEDS: ACETAMINOPHEN 1,000 MG/100 ML VIAL IV PRN ×2 (01:03→21:40)
[2019-01-07] MEDS: HEPARIN SOD 5,000 UNIT/0.5 ML VIAL SQ SCH ×3 (06:33→21:26)
[2019-01-07] MEDS ORDERED: SODIUM CHLORIDE 0.9% 1000ML 1,000 ML IV PRN (07:00)
[2019-01-07] MEDS ORDERED: EPOETIN ALFA 10,000 UNITS/ML VIAL IV SCH (07:00)
--- NOTE | 2019-01-07 07:21 | XRay Report ---
KUB CLINICAL HISTORY: Enteric tube placement. FINDINGS: An AP, portable, semierect radiograph of the lower chest and upper abdomen is compared to sandee azevedo dated 01/04/2019. An enteric tube projects below the diaphragm over the mid to distal stomach. The re is no evidence of bowel obstruction in the upper abdomen. No evidence of intraperitoneal free air is seen. Surgical clips project over the esophageal hiatus. Retained enteric contrast is seen in the colon. The heart is enlarged. Airspace consolidation and a small pleural effusion are seen at the lef t lung base. IMPRESSION: 1. An enteric tube projects below the diaphragm over the mid to distal stomach. 2. Retained enteric contrast is noted in the right colon. 3. There is left basilar consolidation and a small left pleural effusion. Electronically signed by: Derek Low M.D. 01/07/2019 7:20 AM
[2019-01-07] MEDS: SUCRALFATE 1 GM/10 ML UDC PO SCH ×4 (08:13→21:24)
[2019-01-07] MEDS: ASPIRIN 81 MG ECTAB PO SCH (08:14)
[2019-01-07] MEDS: CARVEDILOL 25 MG TAB PO SCH ×2 (08:14→21:27)
[2019-01-07] MEDS: PANTOprazole 40 MG TAB PO SCH ×2 (08:14→21:26)
[2019-01-07] MEDS: MAGNESIUM OXIDE 400 MG TAB PO SCH (08:14)
[2019-01-07] MEDS: FAMOTIDINE 20 MG in SYRINGE 3 ML IV SCH (08:19)
[2019-01-07] MEDS: HEPARIN SOD (PORCINE) 1000 UNIT/ML 10 ML VIAL IV SCH ×4 (12:07→14:08)
--- NOTE | 2019-01-07 12:14 | Dialysis Progress Note ---
Date of Service January 07, 2019 Assessment & Plan (1) End-stage renal disease (ESRD): ESRD ON HD TTS at [facility] in [place]. Admitted with Epigastric pain, LFT's & lipase wre normal. RUQ US negative for cholecystitis. Barium swallow shows esophageal dysmotility and hiatal hernia. GI indicates that she has required surgery x 2 in the past to correct her hiatal hernia. Primary service has contacted surgeon at [facility]. No further surgical options for hiatal hernia. Patient is being considered for PEG tube placement. Patient is symptomatically improved following core safe placement and initiation of liquid tube feeding. Plan is to keep core safe in place over weekend and transitioning to oral Nepro feeding. If no recurrent abdominal pain then remove core safe and d/c plans for PEG tube. If discomfort recurs then discuss PEG placement w/ GI -- Volume status and electrolyte balance are acceptable. Tolerating HD, vitals stable --[facility] with next HD --hold phos binder for now, will restart depending on decision regarding oral diet Will follow (2) Abdominal pain: (3) Cardiomyopathy: Jorge Watson was seen & examined during HD this morning. She was tolerating HD well, denies any concern. Overall feeling poorly but feels slowly getting better. has NG tube. Review of Systems Review of Systems: All systems reviewed & are unremarkable except as noted in HPI & below Physical Exam Constitutional: + ill appearing; no acute distress Respiratory: normal respiratory effort, lungs clear to auscultation Cardiovascular: RRR, no murmur, no edema Neurologic: moves all extremities and awake; not confused Psychiatric: A+Ox3, euthymic affect Results & Data Vital Signs (Past 12 Hours) Vital Signs Temp Pulse Pulse Pulse Resp BP BP 01/07/19 12:00 53 L 136/54 L 01/07/19 11:40 56 L 113/49 L 01/07/19 11:20 56 L 120/51 L 01/07/19 11:00 54 L 96/23 L 01/07/19 10:40 51 L 134/64 01/07/19 10:20 55 L 123/76 01/07/19 10:00 56 L 136/64 01/07/19 09:27 56 L 114/59 L 01/07/19 09:20 54 L 124/72 01/07/19 08:56 36.9 C 68 68 117/58 L 01/07/19 07:14 36.7 C 51 L 18 116/62 Pulse Ox 01/07/19 12:00 01/07/19 11:40 01/07/19 11:20 01/07/19 11:00 01/07/19 10:40 01/07/19 10:20 01/07/19 10:00 01/07/19 09:27 01/07/19 09:20 01/07/19 08:56 01/07/19 07:14 99
--- NOTE | 2019-01-07 12:25 | Family Medicine Progress Note ---
Date of Service January 07, 2019 Assessment & Plan (1) End-stage renal disease (ESRD): Ms. Patrick is a 73-year-old female with a past medical history of end- stage renal disease, on dialysis, chronic CHF chronic anemia, hypothyroidism, hyperlipidemia, depression and anxiety who presented to [facility] due to epigastric pain, nausea and vomiting. Elevated Troponin with normal coronaries on [facility] Nonischemic cardiomyopathy -Patient has a history of chronically elevated troponin secondary to coronary artery disease and chronic renal disease -New spike this admission, with a peak of 12.6 - ECHO showed severely reduced EF (20-25%) with wall motion hypo to akinetic wall motion of right and left ventricles except for the basal aspects. (Roman difference to recent echo from earlier in the year showing EF of 55%) - Cardiology was consulted -> Patient underwent a cardiac catheterization, where she was found to have normal coronary arteries. - ECHO on 01/03 showed EF of 40-45% - Patient appears to have a nonischemic cardiomyopathy -> myocarditis vs takutsubo vs Lyme - Lyme antibodies negative, most likely diagnosis is Takotsubo cardiomyopathy - Continue increased dose of carvedilol, daily aspirin and atorvastatin - Cardiology feels that her cardiac function could very well improve with time Nausea/vomiting/abdominal pain - Patient has a history of chronic GERD, as well as dysphagia. She has had ongoing nausea, vomiting and epigastric pain since the removal of a silicone ring that was placed during a prior hiatal hernia repair four years ago. Had been doing okay until 24 hours before admission. She states she has never had an episode that she has had with unrelenting abdominal pain and nausea. No evidence of aortic dissection on imaging, no evidence for pancreatitis on labs CT abdomen/pelvis -> mild gallbladder distention with edema. Partial distention of urinary bladder with mild wall thickening. -> Follow-up right upper quadrant ultrasound showed gallbladder distention, however no inflammation -> LFTs within normal limits - Continue 20 mg IV famotidine twice daily and pantoprazole 40 mg twice daily - GI does not see a role for scope and recommends conservative management - Continue ondansetron 4 mg prn every 4 hours and promethazine 12.5 mg every 4 hours prn -Dilaudid 0.25 mg IV every 4 hours as needed for abdominal pain - Attempting clear fluids somewhat successful today though she struggled with them yesterday. GI recommended thoracic surgery consultation for possible hiatal hernia repair. Thoracic surgery declines intervention Called [facility] and discussed case with surgeons there who operated on her before, they are unable to offer any further treatments. NG tube placed yesterday tolerating well Patient would like to have PEG tube placed GI recommending NG tube and waiting for possible heart function recovery - will consult GI Wednesday night to consider PEG tube placement early next week. Fever, leukocytosis -Patient spiked a fever of 38.1 C on 12/29 -Patient was placed on Zosyn, and has been afebrile since -Unsure of source of infection at this time. Patient had leukocytosis up to 17.8, this is slowly resolving and has returned back to normal today -No evidence of pneumonia or skin infection Zosyn d/c'd -Blood cultures negative x48 hours End Stage Renal Disease -Patient was admitted with hyperkalemia and EKG changes, this has now resolved -Nephrology consulted, currently managing hemodialysis. Receiving hemodialysis on Wednesday, , Wednesday -Daily BMPs, patient for dialysis [facility] Hypertension -Home hydralazine d/c'd, -increased carvedilol for her cardiomyopathy Hypoxemia -Patient meant to wear 2 L of oxygen at home [id number]. She is currently saturating well on 2 L of oxygen by nasal cannula here -CT showed bilateral pleural effusions, as well as pulmonary edema, however patient is at her baseline with regards to breathing -Continue to monitor Depression -Continue home citalopram Hypothyroidism -Continue home levothyroxine Neuropathy -Continue home gabapentin -will try Tylenol PM to help with difficulty with sleep 2/2 RLS -discussed w/ patient attempting to move legs before bed to improve circulation in the lower extremity -consider outpatient iron studies to evaluate cause of RLS F/E/N: NG tube feed with dialysis diet; goal feeding is 45 ml/hour DVT PPx: Heparin 5000 units SQ 3 times daily Dispo: Med-surg Supervising Physician Co-Signing Physician Notes I personally examined the patient and verified all bergeron points of history and exam, discussed case, and agree with decision making with Dr Andino. Feeling okay on tube feeds. Is very much in favor of having PEG placed as soon as possible. Vitals noted, in general she is awake alert pleasant no distress. HEENT normocephalic atraumatic mucous members moist. Breathing unlabored no accessory muscle use good effort. no pallor or icterus Esophageal dysmotility/upper GI dysfunctiondoing well on NG tube feeds, while we are watching for her ability to take orally over the weekend, the patient herself is extremely in favor of PEG tube, understandably so given her long- standing failure to thrive with her esophageal dysmotility. She appears to be a reasonable risk profile for tube placement early next week, especially given t hat she did not have ischemic heart disease and she appears extremely stable from a cardiac standpoint at this time. Takotsubo cardiomyopathyappearing stable. no decompensation. Continue current care, see above otherwise DVT proph - heparin SQ Jorge Watson was seen & examined during HD this morning. She was tolerating HD well, denies any concern. Overall feeling poorly but feels slowly getting better. has NG tube. She had some trouble sleeping last night and we discussed trying Tylenol PM. Review of Systems Review of Systems: Denies: increased work of breathing, fever, nausea, vomiting, abdominal pain Physical Exam Constitutional: WD/WN, vitals as above Eyes: + anicteric sclerae ENMT: external ear and nose normal, oropharynx normal Respiratory: left lower lobe coarse with good movement throughout and slight wheeze on right upper lobe Cardiovascular: RRR, no murmur, no edema Gastrointestinal (Abdomen): normal bowel sounds, soft, nontender, no hepatosplenomegaly Skin: no rashes, warm and dry Psychiatric: Orientation: alert Affect: euthymic affect Insight: good insight Results & Data Vital Signs (Past 12 Hours) Vital Signs Temp Pulse Pulse Pulse Resp BP BP 01/07/19 12:00 53 L 136/54 L 01/07/19 11:40 56 L 113/49 L 01/07/19 11:20 56 L 120/51 L 01/07/19 11:00 54 L 96/23 L 01/07/19 10:40 51 L 134/64 01/07/19 10:20 55 L 123/76 01/07/19 10:00 56 L 136/64 01/07/19 09:27 56 L 114/59 L 01/07/19 09:20 54 L 124/72 01/07/19 08:56 36.9 C 68 68 117/58 L 08/10/19 07:14 36.7 C 51 L 18 116/62 Pulse Ox 01/07/19 12:00 01/07/19 11:40 01/07/19 11:20 01/07/19 11:00 01/07/19 10:40 01/07/19 10:20 01/07/19 10:00 01/07/19 09:27 01/07/19 09:20 01/07/19 08:56 01/07/19 07:14 99
--- NOTE | 2019-01-07 13:05 | Dialysis Progress Note ---
Date of Service January 07, 2019 Assessment & Plan (1) End-stage renal disease (ESRD): ESRD ON HD TTS at [facility] in [place]. Admitted with Epigastric pain, LFT's & lipase wre normal. RUQ US negative for cholecystitis. Barium swallow shows esophageal dysmotility and hiatal hernia. GI indicates that she has required surgery x 2 in the past to correct her hiatal hernia. Primary service has contacted surgeon at [facility]. No further surgical options for hiatal hernia. Patient is being considered for PEG tube placement. Patient is symptomatically improved following core safe placement and initiation of liquid tube feeding. Plan is to keep core safe in place over weekend and transitioning to oral Nepro feeding. If no recurrent abdominal pain then remove core safe and d/c plans for PEG tube. If discomfort recurs then discuss PEG placement w/ GI -- Volume status and electrolyte balance are acceptable. Tolerating HD, vitals stable --RONNELL with next HD --hold phos binder for now, will restart depending on decision regarding oral diet Will follow (2) Abdominal pain: -- Epigastric pain: LFT's & lipase are normal. RUQ US negative for cholecystitis -- Barium swallow shows esophageal dysmotility and hiatal hernia. GI indicates that she has required surgery x 2 in the past to correct her hiatal hernia -- Primary service has contacted surgeon at [facility]. No further surgical options for hiatal hernia. Patient is being considered for PEG tube placement -- Patient is symptomatically improved following core safe placement and initiation of liquid tube feeding. Recommend keeping core safe in place over weekend and transitioning to oral Nepro feeding. If no recurrent abdominal pain then remove core safe and d/c plans for PEG tube. If discomfort recurs then discuss PEG placement w/ GI (3) Cardiomyopathy: -- Troponin is now trending down. EKG w/ new LBBB. Cardiac cath 12/30 revealed normal coronary arteries. Elevated troponin likely reflective of Takotsubo cardiomyopathy -- TTE demonstrates LVEF 20-25% with severe global hypokinesis with sparing of the basal segment, RASP 50-60 by estimate. Jorge Watson was seen & examined during HD this morning. She was tolerating HD well, denies any concern. Overall feeling poorly but feels slowly getting better. has NG tube. Review of Systems Review of Systems: Detail ROS was negative except mentioned in HPI. Denies: increased work of breathing, fever, nausea, vomiting, abdominal pain Gastrointestinal: denies reflux Physical Exam Constitutional: + ill appearing; no acute distress Respiratory: normal respiratory effort, lungs clear to auscultation Cardiovascular: RRR, no murmur, no edema Neurologic: moves all extremities and awake; not confused Psychiatric: A+Ox3, euthymic affect Results & Data Vital Signs (Past 12 Hours) Vital Signs Temp Pulse Pulse Pulse Resp BP BP 01/07/19 12:40 56 L 139/70 01/07/19 12:20 57 L 140/97 01/07/19 12:00 53 L 136/54 L 01/07/19 11:40 56 L 113/49 L 01/07/19 11:20 56 L 120/51 L 01/07/19 11:00 54 L 96/23 L 01/07/19 10:40 51 L 134/64 01/07/19 10:20 55 L 123/76 01/07/19 10:00 56 L 136/64 01/07/19 09:27 56 L 114/59 L 01/07/19 09:20 54 L 124/72 01/07/19 08:56 36.9 C 68 68 117/58 L 01/07/19 07:14 36.7 C 51 L 18 116/62 Pulse Ox 01/07/19 12:40 01/07/19 12:20 01/07/19 12:00 01/07/19 11:40 01/07/19 11:20 01/07/19 11:00 01/07/19 10:40 01/07/19 10:20 01/07/19 10:00 01/07/19 09:27 01/07/19 09:20 01/07/19 08:56 01/07/19 07:14 99
--- NOTE | 2019-01-07 14:41 | Pharmacy Report ---
Glycemic Control Progress Note - Date of Service January 07, 2019 - Scope Glycemic Pharmacist consulted for glycemic control to write orders per [facility] inpatient glycemic control protocol. - Objective Accuchecks BSG(last 24 hours):: 01/06/19 01/06/19 01/07/19 15:59 20:29 00:41 POC Glucose 172 H 211 H 212 H 01/07/19 01/07/19 01/07/19 04:09 08:00 14:02 POC Glucose 131 H 119 H 132 H - Recent Pertinent Medications The patient is currently receiving: * Basal insulin: LEVEMIR 0-15 units every 24 hours at bedtime * Correctional Insulin: Novolog Correction per scale ACHS Goal Range: Low 120 mg/dL - High 150 mg/dL Correction Factor: 20 mg/dL/unit * Prandial insulin: Per carb ratio of 1 unit per 8 grams CHO consumed - Outpatient Anti-Diabetic Meds Levemir 20 units BID - Assessment & Plan ASSESSMENT: * See progress note from 12/31/18 for more background info, in short: * Pt receiving SQ basal bolus insulin regimen for hyperglycemia secondary to baseline DM (outpatient regimen on hold). Currently receiving feeds via coresafe for the weekend. * Patient is currently receiving an average of 49 units of insulin per day * 15 units of basal insulin * 34 units of prandial/correctional insulin * BSGs ranging 165 - 215 mg/dl over the past 24hrs * Changes needed to insulin regimen: * AM Fasting BSG = 119 mg/dl. This is in goal range for patient based on inpatient targets and co-morbidities. Therefore Basal insulin will be continued. Schedule 15 units nightly. * Post-prandial BSGs are in range therefore no changes needed to CF/CR. * Total daily dose = 35-40 units. PLAN FOR INPATIENT GLYCEMIC CONTROL: * Continuing Levemir 15 units SQ HS * Continuing correction factor of 20 mg/dl/unit * Continuing carb ratio of 1 unit per 8 grams CHO consumed * Continuing goal range of Low 120 mg/dL - High 150 mg/dL RECOMMENDATIONS FOR DISCHARGE: * TBD based upon what patient is tolerating at discharge in terms of oral intake. * Please note that the plan above was derived based on current level of insulin resistance and hospital stress. These recommendations are appropriate for inpatient admission only. Plan of care upon discharge will need to be reassessed to avoid potential outpatient hypo/hyperglycemia. Thank you.
--- NOTE | 2019-01-07 14:49 | Hospitalist Progress Note ---
Date of Service January 07, 2019 Results & Data Vital Signs (Past 12 Hours) Vital Signs Temp Pulse Pulse Pulse Resp BP BP 01/07/19 12:58 37.0 C 56 L 56 L 147/69 H 147/69 H 01/07/19 12:40 56 L 139/70 01/07/19 12:20 57 L 140/97 01/07/19 12:00 53 L 136/54 L 01/07/19 11:40 56 L 113/49 L 01/07/19 11:20 56 L 120/51 L 01/07/19 11:00 54 L 96/23 L 01/07/19 10:40 51 L 134/64 01/07/19 10:20 55 L 123/76 01/07/19 10:00 56 L 136/64 01/07/19 09:27 56 L 114/59 L 01/07/19 09:20 54 L 124/72 01/07/19 08:56 36.9 C 68 68 117/58 L 01/07/19 07:14 36.7 C 51 L 18 116/62 Pulse Ox 01/07/19 12:58 01/07/19 12:40 01/07/19 12:20 01/07/19 12:00 01/07/19 11:40 01/07/19 11:20 01/07/19 11:00 01/07/19 10:40 01/07/19 10:20 01/07/19 10:00 01/07/19 09:27 01/07/19 09:20 01/07/19 08:56 01/07/19 07:14 99 PG Care Time/CCT Total # of Minutes Spent Total Time Spent with Patient: Total time spent is greater than 50% in coordination of care (as documented) at patient's floor/unit and/or counseling patient:
[2019-01-07] MEDS ORDERED: NON-FORMULARY MEDICATION (Melatonin 5 MG) PO PRN (17:31)
[2019-01-07] MEDS ORDERED: INSULIN DETEMIR FLEXPEN/FLEX TOUCH 100 UNITS/ML 3ML SC SCH ×2 (21:00)
[2019-01-07] MEDS: LEVOTHYROXINE SODIUM 100 MCG TABLET PO SCH (21:26)
[2019-01-07] MEDS: GABAPENTIN 300 MG CAP PO SCH (21:26)
[2019-01-07] MEDS: ATORVASTATIN 20 MG TAB PO SCH (21:27)
[2019-01-07] MEDS: CITALOPRAM 20 MG TAB PO SCH (21:28)
[2019-01-08] MEDS: INSULIN ASPART 100 UNITS/ML 3 ML PEN SC SCH ×6 (00:30→20:17)
[2019-01-08] MEDS: ACETAMINOPHEN 325 MG TAB PO PRN (02:42)
[2019-01-08] MEDS: HEPARIN SOD 5,000 UNIT/0.5 ML VIAL SQ SCH ×3 (04:58→20:14)
[2019-01-08] MEDS: ACETAMINOPHEN 1,000 MG/100 ML VIAL IV PRN (06:16)
--- NOTE | 2019-01-08 08:10 | Nephrology Progress Note ---
Date of Service January 08, 2019 Assessment & Plan (1) End-stage renal disease (ESRD): ESRD ON HD TTS at [facility] in [place]. Admitted with Epigastric pain, LFT's & lipase wre normal. RUQ US negative for cholecystitis. Barium swallow shows esophageal dysmotility and hiatal hernia. GI indicates that she has required surgery x 2 in the past to correct her hiatal hernia. Primary service has contacted surgeon at [facility]. No further surgical options for hiatal hernia. Patient is being considered for PEG tube placement. Patient is symptomatically improved following core safe placement and initiation of liquid tube feeding. Plan is to keep core safe in place over weekend and transitioning to oral Nepro feeding. If no recurrent abdominal pain then remove core safe and d/c plans for PEG tube. If discomfort recurs then discuss PEG placement w/ GI -- Volume status and electrolyte balance are acceptable. vitals stable --RONNELL with next HD, next HD Tuesday 01/09 --hold phos binder for now, will restart depending on decision regarding oral diet Will follow (2) Abdominal pain: (3) Cardiomyopathy: Subjective Shelvia was seen & examined this morning. Denies SOB, CP. Overall feeling poorly but feels slowly getting better. has NG tube. Review of Systems Review of Systems: Detail ROS was negative except mentioned in HPI. Denies: increased work of breathing, fever, nausea, vomiting, abdominal pain Physical Exam Constitutional: + ill appearing; no acute distress Respiratory: normal respiratory effort, lungs clear to auscultation Cardiovascular: RRR, no murmur, no edema Neurologic: moves all extremities and awake; not confused Psychiatric: A+Ox3, euthymic affect Results & Data Vital Signs (Past 12 Hours) Vital Signs Temp Pulse Resp BP Pulse Ox 01/08/19 07:23 37.2 C 58 L 20 108/56 L 98 01/07/19 23:00 36.8 C 66 21 129/70 92 PG Care Time/CCT Total # of Minutes Spent Total Time Spent with Patient: Total time spent is greater than 50% in coordination of care (as documented) at patient's floor/unit and/or counseling patient:
[2019-01-08] MEDS: SUCRALFATE 1 GM/10 ML UDC PO SCH ×4 (08:29→20:14)
[2019-01-08] MEDS: PANTOprazole 40 MG TAB PO SCH ×2 (08:29→20:14)
[2019-01-08] MEDS: MAGNESIUM OXIDE 400 MG TAB PO SCH (08:29)
[2019-01-08] MEDS: ASPIRIN 81 MG ECTAB PO SCH (08:29)
[2019-01-08] MEDS: CARVEDILOL 25 MG TAB PO SCH ×2 (08:29→20:15)
--- NOTE | 2019-01-08 08:54 | Family Medicine Progress Note ---
Date of Service January 08, 2019 Assessment & Plan (1) End-stage renal disease (ESRD): Ms. Patrick is a 73-year-old female with a past medical history of end- stage renal disease, on dialysis, chronic CHF chronic anemia, hypothyroidism, hyperlipidemia, depression and anxiety who presented to [facility] due to epigastric pain, nausea and vomiting. Elevated Troponin with normal coronaries on [facility] Nonischemic cardiomyopathy -Patient has a history of chronically elevated troponin secondary to coronary artery disease and chronic renal disease -New spike this admission, with a peak of 12.6 - ECHO showed severely reduced EF (20-25%) with wall motion hypo to akinetic wall motion of right and left ventricles except for the basal aspects. (Roman difference to recent echo from earlier in the year showing EF of 55%) - Cardiology was consulted -> Patient underwent a cardiac catheterization, where she was found to have normal coronary arteries. - ECHO on 01/03 showed improved EF (40-45%) - Patient appears to have a nonischemic cardiomyopathy - Lyme antibodies negative, most likely diagnosis is Takotsubo cardiomyopathy - Continue increased dose of carvedilol, daily aspirin and atorvastatin - Cardiology feels that her cardiac function could very well improve with time Nausea/vomiting/abdominal pain - Patient has a history of chronic GERD, as well as dysphagia. She has had ongoing nausea, vomiting and epigastric pain since the removal of a silicone ring that was placed during a prior hiatal hernia repair four years ago. Had been doing okay until 24 hours before admission. She states she has never had an episode like she had on admission with unrelenting abdominal pain and nausea. No evidence of aortic dissection on imaging, no evidence for pancreatitis on labs CT abdomen/pelvis -> mild gallbladder distention with edema. Partial distention of urinary bladder with mild wall thickening. -> Follow-up right upper quadrant ultrasound showed gallbladder distention, however no inflammation -> LFTs within normal limits - Continue 20 mg IV famotidine twice daily and pantoprazole 40 mg twice daily - GI does not see a role for scope and recommends conservative management - Continue ondansetron 4 mg prn every 4 hours and promethazine 12.5 mg every 4 hours prn - Dilaudid 0.25 mg IV every 4 hours as needed for abdominal pain - Advance diet as tolerated GI recommended thoracic surgery consultation for possible hiatal hernia repair. Thoracic surgery declines intervention Dr. Harden called [facility] and discussed case with surgeons there who operated on her before, they are unable to offer any further treatments. - NG tube placed, tolerating well Patient would like to have PEG tube placed GI recommending NG tube and waiting for possible heart function recovery - will consult GI Wednesday night to consider PEG tube placement early next week. Fever, leukocytosis - Patient spiked a fever of 38.1 C on 12/29 - Patient was placed on Zosyn, and has been afebrile since - Unsure of source of infection at this time. Patient had leukocytosis up to 17.8, this is slowly resolving and has returned back to normal today - No evidence of pneumonia or skin infection - Zosyn d/c'd - Blood cultures negative 5 days End Stage Renal Disease - Oliguric - Patient was admitted with hyperkalemia and EKG changes, this has now resolved - Nephrology consulted, currently managing hemodialysis. Receiving hemodialysis on Wednesday, , Wednesday Hypertension -Home hydralazine d/c'd, -increased carvedilol for her cardiomyopathy Hypoxemia -Patient meant to wear 2 L of oxygen at home [id number]. She is currently saturating well on 2 L of oxygen by nasal cannula here -CT showed bilateral pleural effusions, as well as pulmonary edema, however patient is at her baseline with regards to breathing -Continue to monitor oxygen concentration, lung sounds, and work of breathing Depression -Continue home citalopram Hypothyroidism -Continue home levothyroxine Neuropathy - Continue home gabapentin 300 QHS - Attempted Benadryl to improve sleep 2/2 RLS, this caused confusion(01/07) and was discontinued - Started Mirtazapine 15 mg(01/08) to help with sleep, appetite, and mood - Discussed w/ patient attempting to move legs before bed to improve circulation in the lower extremity - Consider outpatient iron studies to evaluate cause of RLS F/E/N: NG tube feed with dialysis diet; goal feeding is 45 ml/hour DVT PPx: Heparin 5000 units SQ 3 times daily Dispo: Med-surg Supervising Physician Co-Signing Physician Notes I personally examined the patient and verified all bergeron points of history and exam, discussed case, and agree with decision making with Dr Andino. Feeling okay on tube feeds. Is stillvery much in favor of having PEG placed as soon as possible. We discussed options, and patient notes that her feeding problems/upper GI problems have been going on for probably at least the last 5 years, so the likelihood of spontaneous improvement seems to be low. She also discussed that she would not want to live on a liquid/pured diet indefinitely, and if that were the case she would much prefer to have a PEG placed. She does note that if she tolerated it as far as pain she would like to still be able to eat for pleasure and taste, which we discussed would be reasonable, since she does not have aspiration type dysphasia, but rather the main reason for her current predicament is more of a pain/discomfort leading to failure to thrive situation. Vitals noted, in general she is awake alert pleasant no distress. HEENT normocephalic atraumatic mucous members moist. Breathing unlabored no accessory muscle use good effort. no pallor or icterus Esophageal dysmotility/upper GI dysfunctiondoing well on NG tube feeds, while we are watching for her ability to take orally over the weekend, the patient herself is extremely in favor of PEG tube, understandably so given her long- standing failure to thrive with her esophageal dysmotilitysee discussion above. She appears to be a reasonable risk profile for tube placement early next week, especially given that she did not have ischemic heart disease and she appears extremely stable from a cardiac standpoint at this time. The main question would be whether or not a true PEG is possible with her anatomy, versus a surgical G-tube. Takotsubo cardiomyopathyappearing stable, certainly stable for tube placement as above. no decompensation. Continue current care, see above otherwise DVT proph - heparin SQ Subjective Shirley Patrick was doing well, she did not sleep well overnight. She complained that overnight she had thigh pain that kept her up at night. She states that she has trouble going to sleep and staying asleep. She has tried Melatonin in the past and that has helped. She tried Benadryl last night but this made her confused. She also states that she would like the PEG tube placed because the NG tube is irritating her. When asked about urine output she mentioned that she does not go regularly and has gone once in the last day. She stated that her last bowel movement was 3 days prior. Review of Systems Constitutional: no fever Respiratory: no cough Gastrointestinal: no nausea and no vomiting Integumentary: no rash Physical Exam Constitutional: WD/WN, vitals as above cooperative and comfortable Respiratory: normal respiratory effort, lungs clear to auscultation Cardiovascular: RRR, no murmur, no edema Gastrointestinal (Abdomen): normal bowel sounds, soft, nontender, no hepatosplenomegaly Musculoskeletal: Extremities: extremities normal to inspection Skin: no rashes, warm and dry Psychiatric: A+Ox3, euthymic affect Thought Process: clear/coherent thought process Results & Data Vital Signs (Past 12 Hours) Vital Signs Temp Pulse Resp BP Pulse Ox 01/08/19 07:23 37.2 C 58 L 20 108/56 L 98 01/07/19 23:00 36.8 C 66 21 129/70 92 PG Care Time/CCT Total # of Minutes Spent Total Time Spent with Patient: Total time spent is greater than 50% in coordination of care (as documented) at patient's floor/unit and/or counseling patient:
--- NOTE | 2019-01-08 12:48 | Pharmacy Report ---
Pharmacy Glycemic Short Note 2 - Date of Service January 08, 2019 - Glycemic Short BSG Results (Last 24 hours): 01/07/19 01/07/19 01/08/19 14:02 16:44 00:02 POC Glucose 132 H 246 H 149 H 01/08/19 01/08/19 01/08/19 03:57 07:51 11:50 POC Glucose 153 H 183 H 182 H Outpatient Anti-Diabetic Meds * Levemir 20 units SQ BID * HbA1c: unreliable in the setting of renal failure/hemodialysis ASSESSMENT: 01/08/19 * Blood sugars above goal, will increase Levemir slightly and tighten CR * Novasource at goal of 45ml/hr 01/06/19 * Ms Patrick received 39 units of insulin yesterday. This is increased from her typical total daily dose d/t hyperglycemia secondary to continuous tube feeds * Pt with mild hyperglycemia after HD - resolved with current orders * Pt will need basal insulin while on tube feeds - will adjust Lantus dosing parameters slightly to ensure adequate dosing given * Continuous tube feeds were initiated - currently running at goal rate of 45ml/hr * CHO coverage will be needed for continuous tube feedings. Will use NovoLog Q4hrs (or could consider regular q6hrs) * Novasource tube feeds: start at 15mL/hr -- titrate up by 10mL/hr q8h to goal of 45mL/hr * CHO provided by tube feeds (Novasource): Novasource @ 15mL/hr = 11gm CHO per 4 hours 25mL/hr = 18gm CHO per 4 hours 30mL/hr = 22gm CHO per 4 hours 45mL/hr = 33gm CHO per 4 hours PLAN FOR INPATIENT GLYCEMIC CONTROL: * Basal insulin -increase * Levemir 20units HS * Bolus insulin * NovoLog per scale ACHS or Q6hrs while NPO * Goal Range: Low 120 mg/dL - High 150 mg/dL * Correction Factor: 20 mg/dL/unit * tighten: Nutritional / Prandial insulin per carb ratio of 1 unit per 7 grams CHO consumed CHO provided by tube feeds (Novasource): Novasource @ 15mL/hr = 11gm CHO per 4 hours 25mL/hr = 18gm CHO per 4 hours 30mL/hr = 22gm CHO per 4 hours 45mL/hr = 33gm CHO per 4 hours PLAN FOR DISCHARGE: * HD pt * Patient's A1c = 6.0% * However, this result is likely somewhat unreliable in ESRD patients d/t interactions between the A1c analyzing technique and high levels of urea in ESRD, reduced RBC life span, iron deficiency anemia, and EPO administration. * Patient can likely resume home regimen on discharge if PO intake back to normal. * Recommend close f/u with outpatient provider after discharge to work on stabilizing glycemic regimen.
[2019-01-08] MEDS: MIRTAZAPINE TAB 15 MG TAB PO SCH (20:13)
[2019-01-08] MEDS: GABAPENTIN 300 MG CAP PO SCH (20:14)
[2019-01-08] MEDS: LEVOTHYROXINE SODIUM 100 MCG TABLET PO SCH (20:14)
[2019-01-08] MEDS: ATORVASTATIN 20 MG TAB PO SCH (20:14)
[2019-01-08] MEDS: CITALOPRAM 20 MG TAB PO SCH (20:15)
[2019-01-08] MEDS ORDERED: INSULIN DETEMIR FLEXPEN/FLEX TOUCH 100 UNITS/ML 3ML SC SCH (21:00)
[2019-01-09] MEDS: INSULIN ASPART 100 UNITS/ML 3 ML PEN SC SCH ×6 (00:56→21:41)
[2019-01-09] MEDS: HEPARIN SOD 5,000 UNIT/0.5 ML VIAL SQ SCH ×3 (05:30→21:33)
[2019-01-09 07:08] LABS: Prothrombin Time 10.5 Seconds (9.0-12.0)
[2019-01-09] MEDS: PANTOprazole 40 MG TAB PO SCH ×2 (08:20→21:33)
[2019-01-09] MEDS: MAGNESIUM OXIDE 400 MG TAB PO SCH (08:20)
[2019-01-09] MEDS: ASPIRIN 81 MG ECTAB PO SCH (08:20)
[2019-01-09] MEDS: CARVEDILOL 25 MG TAB PO SCH ×2 (08:21→21:37)
[2019-01-09] MEDS: SUCRALFATE 1 GM/10 ML UDC PO SCH ×4 (08:23→21:31)
--- NOTE | 2019-01-09 09:41 | Family Medicine Progress Note ---
Date of Service January 09, 2019 Assessment & Plan (1) End-stage renal disease (ESRD): Ms. Patrick is a 73-year-old female with a past medical history of end- stage renal disease, on dialysis, chronic CHF chronic anemia, hypothyroidism, hyperlipidemia, depression and anxiety who presented to [facility] due to epigastric pain, nausea and vomiting. Elevated Troponin with normal coronaries on [facility] Nonischemic cardiomyopathy -Patient has a history of chronically elevated troponin secondary to coronary artery disease and chronic renal disease -New spike this admission, with a peak of 12.6 - ECHO showed severely reduced EF (20-25%) with wall motion hypo to akinetic wall motion of right and left ventricles except for the basal aspects. (Roman difference to recent echo from earlier in the year showing EF of 55%) - Cardiology was consulted -> Patient underwent a cardiac catheterization, where she was found to have normal coronary arteries. - ECHO on 01/03 showed improved EF (40-45%) - Patient appears to have a nonischemic cardiomyopathy - Lyme antibodies negative, most likely diagnosis is Takotsubo cardiomyopathy - Continue increased dose of carvedilol, daily aspirin and atorvastatin - Cardiology feels that her cardiac function could very well improve with time Nausea/vomiting/abdominal pain - Patient has a history of chronic GERD, as well as dysphagia. She has had ongoing nausea, vomiting and epigastric pain since the removal of a silicone ring that was placed during a prior hiatal hernia repair four years ago. Had been doing okay until 24 hours before admission. She states she has never had an episode like she had on admission with unrelenting abdominal pain and nausea. No evidence of aortic dissection on imaging, no evidence for pancreatitis on labs CT abdomen/pelvis -> mild gallbladder distention with edema. Partial distention of urinary bladder with mild wall thickening. -> Follow-up right upper quadrant ultrasound showed gallbladder distention, however no inflammation -> LFTs within normal limits - Continue 20 mg IV famotidine twice daily and pantoprazole 40 mg twice daily - GI does not see a role for scope and recommends conservative management - Continue ondansetron 4 mg prn every 4 hours and promethazine 12.5 mg every 4 hours prn - Dilaudid 0.25 mg IV every 4 hours as needed for abdominal pain - Advance diet as tolerated GI recommended thoracic surgery consultation for possible hiatal hernia repair. Thoracic surgery declines intervention Called [facility] and discussed case with surgeons there who operated on her before, they are unable to offer any further treatments. - NG tube placed, tolerating well Patient would like to have PEG tube placed GI recommending NG tube and waiting for possible heart function recovery Consulted GI Wednesday night to consider PEG tube placement early next week. Patient tolerating clear liquids, will advance to full liquids at patient's request. Fever, leukocytosis - Patient spiked a fever of 38.1 C on 12/29 - Patient was placed on Zosyn, and has been afebrile since - Unsure of source of infection at this time. Patient had leukocytosis up to 17.8, this is slowly resolving and has returned back to normal today - No evidence of pneumonia or skin infection - Zosyn d/c'd - Blood cultures negative End Stage Renal Disease - Oliguric - Patient was admitted with hyperkalemia and EKG changes, this has now resolved - Nephrology consulted, currently managing hemodialysis. Receiving hemodialysis on Wednesday, , Wednesday Hypertension -Home hydralazine d/c'd, -increased carvedilol for her cardiomyopathy Hypoxemia -Patient meant to wear 2 L of oxygen at home [id number]. She is currently saturating well on 2 L of oxygen by nasal cannula here -CT showed bilateral pleural effusions, as well as pulmonary edema, however patient is at her baseline with regards to breathing -Continue to monitor oxygen concentration, lung sounds, and work of breathing Depression -Continue home citalopram Hypothyroidism -Continue home levothyroxine Neuropathy - Continue home gabapentin 300 QHS - Attempted Benadryl to improve sleep 2/2 RLS, this caused confusion(01/07) and was discontinued - Started Mirtazapine 15 mg(01/08) to help with sleep, appetite, and mood - Discussed w/ patient attempting to move legs before bed to improve circulation in the lower extremity - Consider outpatient iron studies to evaluate cause of RLS PT ordered to help patient get more active and avoid deconditioning. F/E/N: NG tube feed with dialysis diet; goal feeding is 45 ml/hour DVT PPx: Heparin 5000 units SQ 3 times daily Dispo: Med-surg Supervising Physician Co-Signing Physician Notes ATTENDING NOTE I also saw the patient and confirmed bergeron portions of the history and physical exam. I agree with the impression and plan as noted above Overnight, her feeding tube was removed by nursing. Patient is OK with this today, as she is tolerating liquids without symptoms. She asks today if it would be reasonable to trial full liquids - she notes that prior to admission, she was tolerating a full diet (solids) with occ symptoms, although not to the degree she had prompting this admission. If needed, she would still be in favor of a PEG if she has recurrence. PLAN 1) Advance to full liquid diet. 2) GI to re-visit tomorrow to review options. If she tolerates advancing diet, there may be a role for a more substantial trial of soft foods. 3) If she does not tolerate, would need to discuss PEG placement - endoscopically or surgically. 4) She seems well compensated in terms of her cardiomyopathy. Jorge Watson had corsafe tube pulled last night mistakenly. She does not want tube to be replaced and is anxious to get her procedure over with. She does not endorse any abdominal pain, nausea or vomiting currently. She is tolerating clear liquids without difficulty at this time. Review of Systems Review of Systems: All systems reviewed & are unremarkable except as noted in HPI & below Physical Exam Physical Exam: Constitutional: resting comfortably in bed; calm and cooperative. Eyes: EOMMI bilaterally, anicteric sclerae Respiratory: Lungs clear to auscultation, chest expansion symmetric. Cardiovascular: Heart sounds dual, no murmurs rubs skips or gallops, regular rate regular rhythm Abdomen: Soft, nontender, no organomegaly, no masses Skin: No new skin lesions Results & Data Vital Signs (Past 12 Hours) Vital Signs Temp Pulse Resp BP Pulse Ox 01/09/19 08:25 63 01/09/19 07:18 36.4 C L 53 L 16 154/82 H 100 01/08/19 22:48 37.1 C 59 L 18 117/70 95 PG Care Time/CCT Total # of Minutes Spent Total Time Spent with Patient: Total time spent is greater than 50% in coordination of care (as documented) at patient's floor/unit and/or counseling patient: Resident Activity Tracking Resident Involvement: Resident Care Provided Care Provided: Adult Hospital Medicine
--- NOTE | 2019-01-09 10:39 | Nephrology Progress Note ---
Date of Service January 09, 2019 Assessment & Plan (1) End-stage renal disease (ESRD): ESRD ON HD TTS at [facility] in [place]. Admitted with Epigastric pain, LFT's & lipase wre normal. RUQ US negative for cholecystitis. Barium swallow shows esophageal dysmotility and hiatal hernia. GI indicates that she has required surgery x 2 in the past to correct her hiatal hernia. Primary service has contacted surgeon at [facility]. No further surgical options for hiatal hernia. Patient is being considered for PEG tube placement. Patient is anxiously waiting about the decision regarding PEG Tube as NG tube was taken out and she has not been getting anything orally. -- Volume status and electrolyte balance are acceptable. vitals stable --[facility] with next HD, next HD tomorrow, if had do is planned for tomorrow will decide on dialysis time pending OR time --hold phos binder for now, will restart depending on decision regarding oral diet Will follow (2) Abdominal pain: (3) Cardiomyopathy: Jorge Watson was seen and examined in her room this morning. Overall she is doing about the same. NGT was removed yesterday however she remains NPO. Denies shortness of breath or chest pain. Reports her blood sugar was low this morning. Review of Systems Review of Systems: Detail ROS was negative except mentioned in HPI. Denies: increased work of breathing, fever, nausea, vomiting, abdominal pain Physical Exam Constitutional: + ill appearing; no acute distress Respiratory: normal respiratory effort, lungs clear to auscultation Cardiovascular: RRR, no murmur, no edema Neurologic: moves all extremities and awake; not confused Psychiatric: A+Ox3, euthymic affect Results & Data Vital Signs (Past 12 Hours) Vital Signs Temp Pulse Resp BP Pulse Ox 01/09/19 08:25 63 01/09/19 07:18 36.4 C L 53 L 16 154/82 H 100 01/08/19 22:48 37.1 C 59 L 18 117/70 95 PG Care Time/CCT Total # of Minutes Spent Total Time Spent with Patient: Total time spent is greater than 50% in coordination of care (as documented) at patient's floor/unit and/or counseling patient:
--- NOTE | 2019-01-09 15:23 | Pharmacy Report ---
Pharmacy Glycemic Short Note 2 - Date of Service January 09, 2019 - Glycemic Short BSG Results (Last 24 hours): 01/08/19 01/08/19 01/09/19 16:41 20:06 00:00 POC Glucose 144 H 169 H 137 H 01/09/19 01/09/19 01/09/19 05:56 07:24 11:32 POC Glucose 73 74 71 Outpatient Anti-Diabetic Meds * Levemir 20 units SQ BID * HbA1c: unreliable in the setting of renal failure/hemodialysis ASSESSMENT: 01/09/19: * Fasting BSG lower this AM at 73 mg/dL - patient had been NPO for possible PEG tube placement, however got cancelled. Tube feedings on hold currently, patient no longer with NG tube * Plan is to trial clears/transition to full liquid diet today * Lunchtime BSG also lower at 71 mg/dL - 35 gm CHO consumed, anticipate BSGs to rise * Will add very small Lantus dose on for this evening - based upon previous days patient requires about 10 units of Lantus (also when not on tube feeds) 01/08/19 * Blood sugars above goal, will increase Levemir slightly and tighten CR * Novasource at goal of 45ml/hr 01/06/19 * Ms Patrick received 39 units of insulin yesterday. This is increased from her typical total daily dose d/t hyperglycemia secondary to continuous tube feeds * Pt with mild hyperglycemia after HD - resolved with current orders * Pt will need basal insulin while on tube feeds - will adjust Lantus dosing parameters slightly to ensure adequate dosing given * Continuous tube feeds were initiated - currently running at goal rate of 45ml/hr * CHO coverage will be needed for continuous tube feedings. Will use NovoLog Q4hrs (or could consider regular q6hrs) * Novasource tube feeds: start at 15mL/hr -- titrate up by 10mL/hr q8h to goal of 45mL/hr * CHO provided by tube feeds (Novasource): Novasource @ 15mL/hr = 11gm CHO per 4 hours 25mL/hr = 18gm CHO per 4 hours 30mL/hr = 22gm CHO per 4 hours 45mL/hr = 33gm CHO per 4 hours PLAN FOR INPATIENT GLYCEMIC CONTROL: * Basal insulin -decrease * Levemir 0/5/10 based upon BSG scale * Bolus insulin * NovoLog per scale ACHS or Q6hrs while NPO * Goal Range: Low 120 mg/dL - High 150 mg/dL * Correction Factor: 20 mg/dL/unit * tighten: Nutritional / Prandial insulin per carb ratio of 1 unit per 10 grams CHO consumed
[2019-01-09] MEDS ORDERED: INSULIN DETEMIR FLEXPEN/FLEX TOUCH 100 UNITS/ML 3ML SC SCH (21:00)
[2019-01-09] MEDS: CITALOPRAM 20 MG TAB PO SCH (21:32)
[2019-01-09] MEDS: ATORVASTATIN 20 MG TAB PO SCH (21:32)
[2019-01-09] MEDS: GABAPENTIN 300 MG CAP PO SCH (21:32)
[2019-01-09] MEDS: LEVOTHYROXINE SODIUM 100 MCG TABLET PO SCH (21:33)
[2019-01-09] MEDS: MIRTAZAPINE TAB 15 MG TAB PO SCH (21:33)
[2019-01-10] MEDS: HEPARIN SOD 5,000 UNIT/0.5 ML VIAL SQ SCH ×3 (06:07→21:53)
[2019-01-10] MEDS ORDERED: SODIUM CHLORIDE 0.9% 1000ML 1,000 ML IV PRN (07:00)
[2019-01-10] MEDS ORDERED: EPOETIN ALFA 10,000 UNITS/ML VIAL IV SCH ×2 (07:00→09:30)
[2019-01-10] MEDS: ASPIRIN 81 MG ECTAB PO SCH (08:02)
[2019-01-10] MEDS: SUCRALFATE 1 GM/10 ML UDC PO SCH ×4 (08:03→21:11)
[2019-01-10] MEDS: PANTOprazole 40 MG TAB PO SCH ×2 (08:03→21:11)
[2019-01-10] MEDS: MAGNESIUM OXIDE 400 MG TAB PO SCH (08:03)
[2019-01-10 08:27] LABS: Hematocrit (blood only) 30.6 % (37-47); Hemoglobin 9.5 g/dL (12.0-16.0); Mean Corpuscular Volume 102.3 fL (80-100); Mean Platelet Volume 10.2 fL (7.4-10.4); Platelet Count 164 K/uL (130-400); RDW Coefficient of Variation 15.8 % (11.5-14.5); RDW Standard Deviation 57.6 fL (36.4-46.3); Red Blood Count 2.99 M/uL (4.2-5.4); White Blood Count 8.52 K/uL (4.8-10.8)
[2019-01-10 08:44] LABS: Prothrombin Time 10.6 Seconds (9.0-12.0)
[2019-01-10] MEDS: INSULIN ASPART 100 UNITS/ML 3 ML PEN SC SCH ×4 (08:52→21:53)
[2019-01-10 09:07] LABS: Albumin Level 2.9 gm/dl (3.4-5.0); BUN Creatinine Ratio 7.8 (10-20); Calcium 8.4 mg/dl (8.5-10.1); Creatinine Clr Calc Pharmacy 9.2 ml/min; Phosphorus 2.5 mg/dl (2.5-4.9)
--- NOTE | 2019-01-10 10:05 | Pharmacy Report ---
Glycemic Control Progress Note - Date of Service January 10, 2019 - Scope Glycemic Pharmacist consulted for glycemic control to write orders per [facility] inpatient glycemic control protocol. - Objective Accuchecks BSG(last 24 hours):: 01/09/19 01/09/19 01/09/19 11:32 16:55 20:18 Glucose POC Glucose 71 120 H 167 H 01/10/19 01/10/19 07:44 08:14 Glucose 96 POC Glucose 98 - Recent Pertinent Medications The patient is currently receiving: * Basal insulin: Levemir 0-10 units every 24 hours * Correctional Insulin: Novolog Correction per scale ACHS Goal Range: Low 120 mg/dL - High 150 mg/dL Correction Factor: 20 mg/dL/unit * Prandial insulin: Per carb ratio of 1 unit per 10 grams CHO consumed - Outpatient Anti-Diabetic Meds LEVEMIR 20 UNITS BID - Assessment & Plan ASSESSMENT: * See progress note from 12/30/18 for more background info, in short: * Pt receiving SQ basal bolus insulin regimen for hyperglycemia secondary to baseline DM (outpatient regimen on hold). Patient currently tolerating full liquid diet. * Patient is currently receiving an average of 10 units of insulin per day * 5 units of basal insulin * 5 units of prandial/correctional insulin * BSGs ranging 71 - 167 mg/dl over the past 24hrs * Changes needed to insulin regimen: * AM Fasting BSG = 98 mg/dl. This is slightly below goal range for patient based on inpatient targets and co-morbidities. On 01/07 the patient received 50 units of insulin and then on 01/08 the patient received 65 units of insulin. This is in beckre contrast to the 10 units received 01/09. She was convert to full liquid diet on 01/09. The patient is very sensitive to Lantus when converting to NPO. When NPO, the patient requires ~5 units of basal insulin; whereas when diet ordered, the patient tolerates ~15 units of basal. Will utilize scale for this evening. Lower threshold to receive Lantus since tolerating diet better. * Post-prandial BSGs are controlled. Tighten carbohydrate ratio. * Total daily dose depends on toleration of diet. PLAN FOR INPATIENT GLYCEMIC CONTROL: * Continuing Lantus 0-10 units SQ HS * hold Lantus if blood sugar under 140 mg/dL * Lantus 5 units if blood sugar 140-200 mg/dL * Lantus 10 units if blood sugar over 200 mg/dL * Continuing correction factor of 20 mg/dl/unit * Continuing carb ratio of 1 unit per 8 grams CHO consumed * Continuing goal range of Low 120 mg/dL - High 150 mg/dL * Please note that the plan above was derived based on current level of insulin resistance and hospital stress. These recommendations are appropriate for inpatient admission only. Plan of care upon discharge will need to be reassessed to avoid potential outpatient hypo/hyperglycemia. Thank you.
--- NOTE | 2019-01-10 10:10 | Gastroenterology Progress Note ---
Date of Service January 10, 2019 Assessment & Plan (1) Abdominal pain, epigastric: (2) Hernia, hiatal: 1. Discussed risks vs benefits of PEG tube placement. Due to patient's body habitus and moderate sized hiatus hernia, unlikely would be able to place PEG tube endoscopically. 2. Patient is tolerating diet and has had complete resolution of GI symptoms. She is not interested in a feeding tube at this time. 3. If needed in the future, would likely require a surgically placed J-tube. 4. Will sign off at this time. Supervising Physician Co-Signing Physician Notes Agree with MARIA E Mendoza as above Abd: Soft, NT, obese She is doing well at present, and states that she has tolerated full liquid diet She requests regular diet She is not interested in a PEG tube at present, as she is tolerating PO intake. I informed her that if in the future she needs a PEG tube, it may or may not be able to be successfully placed due to hiatal hernia, and therefore, it would need to be placed surgically or with aid of Interventional radiology. Subjective Patient seen and evaluated in the dialysis unit this morning. She reports that she has had complete resolution of nausea and epigastric pain. Is tolerating diet. Desires to go home. Discussed option of PEG tube placement and patient is not interested in having feeding tube placed at this time. Review of Systems Constitutional: no problem reported Respiratory: no cough and no dyspnea Cardiovascular: no chest pain and no palpitations Gastrointestinal: as per Subjective / HPI Physical Exam Neck: normal visual inspection Respiratory: normal respiratory effort; no respiratory distress Auscultation: lungs clear to auscultation bilaterally Cardiovascular: Rate/Rhythm: regular rate and regular rhythm Gastrointestinal (Abdomen): Inspection/Auscultation: normal bowel sounds Percussion/Palpation: abdomen soft; abdomen nontender Results & Data Vital Signs (Past 12 Hours) Vital Signs Temp Pulse Pulse Pulse Resp BP BP 01/10/19 10:00 57 L 149/70 H 01/10/19 09:40 57 L 162/75 H 01/10/19 09:20 60 155/73 H 01/10/19 09:09 37.1 C 60 60 152/77 H 01/10/19 07:32 36.7 C 52 L 18 136/62 01/09/19 23:57 36.6 C 78 20 146/78 H Pulse Ox 01/10/19 10:00 01/10/19 09:40 01/10/19 09:20 01/10/19 09:09 01/10/19 07:32 96 01/09/19 23:57 98 PG Care Time/CCT Total # of Minutes Spent Total Time Spent with Patient: Total time spent is greater than 50% in coordination of care (as documented) at patient's floor/unit and/or counseling patient:
--- NOTE | 2019-01-10 10:32 | Nephrology Progress Note ---
Date of Service January 10, 2019 Assessment & Plan (1) End-stage renal disease (ESRD): ESRD ON HD TTS at [facility] in [place]. Admitted with Epigastric pain, LFT's & lipase wre normal. RUQ US negative for cholecystitis. Barium swallow shows esophageal dysmotility and hiatal hernia. GI indicates that she has required surgery x 2 in the past to correct her hiatal hernia. Primary service has contacted surgeon at [facility] [place]. No further surgical options for hiatal hernia. NG tube was removed on 01/08/2019 and she was started on oral diet on 01/09/2019. So far she has been tolerating soft diet without any recurrence of GI symptom. Considering her body habitus if in future if feeding tube needed it will have to be surgically placed J tube. At this time plan is to continue on her oral diet and if her symptom recur in future and make decision about J-tube placement. --plan for hemodialysis today as her regular scheduled --[facility] [id number] units today during dialysis --restart on Nephrocaps daily and phosphate binder with meal Will follow (2) Abdominal pain: (3) Cardiomyopathy: -- Troponin is now trending down. EKG w/ new LBBB. Cardiac cath 12/30 revealed normal coronary arteries. Elevated troponin likely reflective of Takotsubo cardiomyopathy -- TTE demonstrates LVEF 20-25% with severe global hypokinesis with sparing of the basal segment, RASP 50-60 by estimate. Jorge Watson was seen and examined in her room this morning. Overall she is feeling better has been tolerating soft diet since yesterday without any further GI symptoms. Denies shortness of breath or chest pain. Review of Systems Review of Systems: Detail ROS was negative except mentioned in HPI. Denies: increased work of breathing, fever, nausea, vomiting, abdominal pain Physical Exam Constitutional: WD/WN, vitals as above no acute distress Respiratory: normal respiratory effort, lungs clear to auscultation Cardiovascular: RRR, no murmur, no edema Neurologic: moves all extremities and awake; not confused Psychiatric: A+Ox3, euthymic affect Results & Data Vital Signs (Past 12 Hours) Vital Signs Temp Pulse Pulse Pulse Resp BP BP 01/10/19 10:20 58 L 154/82 H 01/10/19 10:00 57 L 149/70 H 01/10/19 09:40 57 L 162/75 H 01/10/19 09:20 60 155/73 H 01/10/19 09:09 37.1 C 60 60 152/77 H 01/10/19 07:32 36.7 C 52 L 18 136/62 01/09/19 23:57 36.6 C 78 20 146/78 H Pulse Ox 01/10/19 10:20 01/10/19 10:00 01/10/19 09:40 01/10/19 09:20 01/10/19 09:09 01/10/19 07:32 96 01/09/19 23:57 98 PG Care Time/CCT Total # of Minutes Spent Total Time Spent with Patient: Total time spent is greater than 50% in coordination of care (as documented) at patient's floor/unit and/or counseling patient:
[2019-01-10] MEDS: CARVEDILOL 25 MG TAB PO SCH ×2 (14:34→21:11)
--- NOTE | 2019-01-10 16:40 | Family Medicine Progress Note ---
Date of Service January 10, 2019 Assessment & Plan (1) End-stage renal disease (ESRD): Ms. Patrick is a 73-year-old female with a past medical history of end- stage renal disease, on dialysis, chronic CHF chronic anemia, hypothyroidism, hyperlipidemia, depression and anxiety who presented to [facility] due to epigastric pain, nausea and vomiting. Elevated Troponin with normal coronaries on [facility] Nonischemic cardiomyopathy -Patient has a history of chronically elevated troponin secondary to coronary artery disease and chronic renal disease -New spike this admission, with a peak of 12.6 - ECHO showed severely reduced EF (20-25%) with wall motion hypo to akinetic wall motion of right and left ventricles except for the basal aspects. (Roman difference to recent echo from earlier in the year showing EF of 55%) - Cardiology was consulted -> Patient underwent a cardiac catheterization, where she was found to have normal coronary arteries. - ECHO on 01/03 showed improved EF (40-45%) - Patient appears to have a nonischemic cardiomyopathy - Lyme antibodies negative, most likely diagnosis is Takotsubo cardiomyopathy - Continue increased dose of carvedilol, daily aspirin and atorvastatin - Cardiology feels that her cardiac function could very well improve with time Nausea/vomiting/abdominal pain - Patient has a history of chronic GERD, as well as dysphagia. She has had ongoing nausea, vomiting and epigastric pain since the removal of a silicone ring that was placed during a prior hiatal hernia repair four years ago. Had been doing okay until 24 hours before admission. She states she has never had an episode like she had on admission with unrelenting abdominal pain and nausea. No evidence of aortic dissection on imaging, no evidence for pancreatitis on labs CT abdomen/pelvis -> mild gallbladder distention with edema. Partial distention of urinary bladder with mild wall thickening. -> Follow-up right upper quadrant ultrasound showed gallbladder distention, however no inflammation -> LFTs within normal limits - Continue 20 mg IV famotidine twice daily and pantoprazole 40 mg twice daily - GI does not see a role for scope and recommends conservative management - Continue ondansetron 4 mg prn every 4 hours and promethazine 12.5 mg every 4 hours prn - Dilaudid 0.25 mg IV every 4 hours as needed for abdominal pain - Advance diet as tolerated GI recommended thoracic surgery consultation for possible hiatal hernia repair. Thoracic surgery declines intervention Called [facility] and discussed case with surgeons there who operated on her before, they are unable to offer any further treatments. - NG tube placed, tolerating well Patient would like to have PEG tube placed GI recommending NG tube and waiting for possible heart function recovery Patient tolerating full liquids, speech therapy to consult with patient on advancing diet further GI does not feel PEG could be placed endoscopically Patient requesting surgery consult to discuss PEG tube placement Fever, leukocytosis - Patient spiked a fever of 38.1 C on 12/29 - Patient was placed on Zosyn, and has been afebrile since - Unsure of source of infection at this time. Patient had leukocytosis up to 17.8, this is slowly resolving and has returned back to normal today - No evidence of pneumonia or skin infection - Zosyn d/c'd - Blood cultures negative End Stage Renal Disease - Oliguric - Patient was admitted with hyperkalemia and EKG changes, this has now resolved - Nephrology consulted, currently managing hemodialysis. Receiving hemodialysis on Wednesday, , Wednesday Hypertension -Home hydralazine d/c'd, -increased carvedilol for her cardiomyopathy Hypoxemia -Patient meant to wear 2 L of oxygen at home [id number]. She is currently saturating well on 2 L of oxygen by nasal cannula here -CT showed bilateral pleural effusions, as well as pulmonary edema, however patient is at her baseline with regards to breathing -Continue to monitor oxygen concentration, lung sounds, and work of breathing Depression -Continue home citalopram Hypothyroidism -Continue home levothyroxine Neuropathy - Continue home gabapentin 300 QHS - Attempted Benadryl to improve sleep 2/2 RLS, this caused confusion(01/07) and was discontinued - Started Mirtazapine 15 mg(01/08) to help with sleep, appetite, and mood - Discussed w/ patient attempting to move legs before bed to improve circulation in the lower extremity - Consider outpatient iron studies to evaluate cause of RLS PT ordered to help patient get more active and avoid deconditioning. F/E/N: FUll liquid diet DVT PPx: Heparin 5000 units SQ 3 times daily Dispo: Med-surg Supervising Physician Co-Signing Physician Notes ATTENDING NOTE I saw the patient separately from Dr. Harden and confirmed bergeron portion of the history and physical exam. I agree with the impression and plan as noted above. The patient continues to tolerate a full liquid diet without nausea or vomiting or epigastric pain. She was seen in consultation by gastroenterology -they do not think a PEG tube would be able to be placed endoscopically due to her surgical history, and recommended consideration for surgical J-tube should be necessary. I discussed this with the patient and her ; presently she is doing "OK" with a full liquid diet, but long-term there is some concern if a full liquid diet would give her enough nutrition and if she would tolerate a slippery soft diet. We did have speech therapy come by with some printed recomm endations for a slippery soft diet. The patient and her would like to discuss with surgery the placement of a J-tube, though she is not committed to such a procedure at this point. We discussed the idea of seeing how long she could tolerate a diet as discussed above -ultimately her long-standing hiatal hernia and her progressive distal esophageal dysmotility will likely necessitate the need for a feeding tube. Subjective Ms. Patrick tolerating her full liquid diet since yesterday evening with no trouble, no abdominal pain no nausea no vomiting. She wants to discuss PEG tube placement with surgery still and wants to know if she can eat full diet. She does not want to have Barium swallow done again. Review of Systems Review of Systems: All systems reviewed & are unremarkable except as noted in HPI & below Physical Exam Physical Exam: Constitutional: resting comfortably in bed; calm and cooperative. Eyes: EOMMI bilaterally, anicteric sclerae Respiratory: Lungs clear to auscultation, chest expansion symmetric. Cardiovascular: Heart sounds dual, no murmurs rubs skips or gallops, regular rate regular rhythm Abdomen: Soft, nontender, no organomegaly, no masses Skin: No new skin lesions Results & Data Vital Signs (Past 12 Hours) Vital Signs Temp Pulse Pulse Pulse Resp BP BP 01/10/19 15:20 36.6 C 69 18 164/80 H 01/10/19 13:13 37.1 C 59 L 59 L 173/68 H 173/68 H 01/10/19 13:00 58 L 184/78 H 01/10/19 12:40 56 L 164/77 H 01/10/19 12:20 56 L 165/75 H 01/10/19 12:00 58 L 153/58 H 01/10/19 11:40 57 L 155/68 H 01/10/19 11:20 56 L 168/69 H 01/10/19 11:00 55 L 145/58 H 01/10/19 10:40 59 L 154/88 H 01/10/19 10:20 58 L 154/82 H 01/10/19 10:00 57 L 149/70 H 01/10/19 09:40 57 L 162/75 H 01/10/19 09:20 60 155/73 H 01/10/19 09:09 37.1 C 60 60 152/77 H 01/10/19 07:32 36.7 C 52 L 18 136/62 Pulse Ox 01/10/19 15:20 95 01/10/19 13:13 01/10/19 13:00 01/10/19 12:40 01/10/19 12:20 01/10/19 12:00 01/10/19 11:40 01/10/19 11:20 01/10/19 11:00 01/10/19 10:40 01/10/19 10:20 01/10/19 10:00 01/10/19 09:40 01/10/19 09:20 01/10/19 09:09 01/10/19 07:32 96 PG Care Time/CCT Total # of Minutes Spent Total Time Spent with Patient: Total time spent is greater than 50% in coordination of care (as documented) at patient's floor/unit and/or counseling patient: Resident Activity Tracking Resident Involvement: Resident Care Provided Care Provided: Adult Hospital Medicine
[2019-01-10] MEDS ORDERED: INSULIN GLARGINE SOLOSTAR 100 UNITS/ML 3 ML PEN SC SCH (21:00)
[2019-01-10] MEDS: GABAPENTIN 300 MG CAP PO SCH (21:11)
[2019-01-10] MEDS: ATORVASTATIN 20 MG TAB PO SCH (21:11)
[2019-01-10] MEDS: CITALOPRAM 20 MG TAB PO SCH (21:11)
[2019-01-10] MEDS: MIRTAZAPINE TAB 15 MG TAB PO SCH (21:11)
[2019-01-10] MEDS: LEVOTHYROXINE SODIUM 100 MCG TABLET PO SCH (21:11)
[2019-01-11] MEDS: HEPARIN SOD 5,000 UNIT/0.5 ML VIAL SQ SCH ×2 (05:33→14:42)
[2019-01-11 06:46] LABS: Basophils # (auto) 0.04 K/uL (0-0.2); Basophils % (auto) 0.7 %; Eosinophils # (auto) 0.12 K/uL (0-0.5); Eosinophils % (auto) 2.1 %; Hematocrit (blood only) 29.7 % (37-47); Hemoglobin 9.4 g/dL (12.0-16.0); Immature Granulocytes # (auto) 0.05 K/uL (0.00-0.02); Immature Granulocytes % (auto) 0.9 %; Lymphocytes % (auto) 21.1 %; Mean Corpuscular Hgb Conc 31.6 g/dL (32-36); Mean Corpuscular Volume 100.7 fL (80-100); Mean Platelet Volume 10.4 fL (7.4-10.4); Monocytes # (auto) 1.02 K/uL (0.11-0.59); Monocytes % (auto) 17.9 %; Neutrophils # (auto) 3.27 K/uL (1.4-6.5); Neutrophils % (auto) 57.3 %; Platelet Count 158 K/uL (130-400); RDW Standard Deviation 58.3 fL (36.4-46.3); Red Blood Count 2.95 M/uL (4.2-5.4)
[2019-01-11 06:57] LABS: INR 1.1 (0.9-1.1); Prothrombin Time 10.9 Seconds (9.0-12.0)
[2019-01-11 07:33] LABS: BUN Creatinine Ratio 5.8 (10-20); Calcium 8.6 mg/dl (8.5-10.1); Creatinine Clr Calc Pharmacy 13.2 ml/min; Est GFR (African American) 10.8; Est GFR (Non-African American) 9.3; Potassium 3.7 mmol/L (3.5-5.1)
[2019-01-11] MEDS: CARVEDILOL 25 MG TAB PO SCH (08:27)
[2019-01-11] MEDS: MAGNESIUM OXIDE 400 MG TAB PO SCH (08:28)
[2019-01-11] MEDS: PANTOprazole 40 MG TAB PO SCH (08:28)
[2019-01-11] MEDS: ASPIRIN 81 MG ECTAB PO SCH (08:28)
[2019-01-11] MEDS: SUCRALFATE 1 GM/10 ML UDC PO SCH ×2 (08:28→12:37)
[2019-01-11] MEDS: INSULIN ASPART 100 UNITS/ML 3 ML PEN SC SCH ×2 (08:29→12:37)
[2019-01-11] MEDS ORDERED: NEPHROCAPS PO SCH (09:00)
--- NOTE | 2019-01-11 10:23 | Nephrology Progress Note ---
Date of Service January 11, 2019 Assessment & Plan (1) End-stage renal disease (ESRD): ESRD ON HD TTS at [facility] in [place]. Admitted with Epigastric pain, LFT's & lipase were normal. RUQ US negative for cholecystitis. Barium swallow shows esophageal dysmotility and hiatal hernia. GI indicates that she has required surgery x 2 in the past to correct her hiatal hernia. Primary service has contacted surgeon at [facility] [place]. No further surgical options for hiatal hernia. NG tube was removed on 01/08/2019 and she was started on oral diet on 01/09/2019. So far she has been tolerating diet. Considering her body habitus if in future feeding tube needed it will have to be surgically placed J tube. At this time plan is to continue on her oral diet and if her symptom recur in future and make decision about J-tube placement. --plan for hemodialysis tomorrow as her regular scheduled --[facility] 4000 unit with next dialysis --continue on Nephrocaps daily, hold phosphate binder at phos has been low Will follow (2) Abdominal pain: (3) Cardiomyopathy: -- Troponin is now trending down. EKG w/ new LBBB. Cardiac cath 12/30 revealed normal coronary arteries. Elevated troponin likely reflective of Takotsubo cardiomyopathy -- TTE demonstrates LVEF 20-25% with severe global hypokinesis with sparing of the basal segment, RASP 50-60 by estimate. Jorge Watson was seen and examined in her room this morning. Overall she is feeling better has been tolerating soft diet since yesterday but again had epigastric pain with chicken last night with dinner. Denies shortness of breath or chest pain. Review of Systems Review of Systems: Detail ROS was negative except mentioned in HPI. Denies: increased work of breathing, fever, nausea, vomiting, abdominal pain Physical Exam Constitutional: WD/WN, vitals as above no acute distress Respiratory: normal respiratory effort, lungs clear to auscultation Cardiovascular: RRR, no murmur, no edema Neurologic: moves all extremities and awake; not confused Psychiatric: A+Ox3, euthymic affect Results & Data Vital Signs (Past 12 Hours) Vital Signs Temp Pulse Resp BP Pulse Ox 01/11/19 07:29 36.6 C 55 L 18 161/87 H 97 01/11/19 00:00 36.8 C 65 20 145/75 H 96 PG Care Time/CCT Total # of Minutes Spent Total Time Spent with Patient: Total time spent is greater than 50% in coordination of care (as documented) at patient's floor/unit and/or counseling patient:
--- NOTE | 2019-01-11 11:29 | Surgery Consultation ---
Date of Consultation January 11, 2019 Assessment & Plan (1) Abdominal pain, epigastric: 73 year-old female with history of [place] prosthesis placed 30 years ago for GERD with subsequent removal of the prosthesis 5 years ago who presented to hospital 2 weeks ago with epigastric abdominal pain and vomiting. Her liver enzymes and abdominal ultrasound negative. CT scan of abdomen and pelvis showing moderate debris containing hiatal hernia. Barium swallow showing esophageal dysmotility and hiatal hernia however no GERD could be elicited on Valsalva. Patient originally had coresafe feeding tube which has been removed and diet advanced to full liquids yesterday in which she tolerated. She did not tolerate chicken and asparagus last night as epigastric pain returned. GI saw patient in consultation yesterday for consideration of PEG tube. Patient tolerating advancement of diet as of now and was not interested in PEG tube placement. GI service discussed with patient she would likely need surgical feeding tube placement given hiatal hernia and body habitus if she were to need a feeding tube placed. Plan: Since patient is currently tolerating advancement of diet slowly and in the light of her cardiomyopathy with EF of 20-25%, recommend to hold off on feeding tube placement surgically at this time. Dietary has been consulted to discuss with patient soft/slippery diet. Advised patient to eat smaller frequent meals and to eat very slowly and cut up her food in small pieces. Would also recommend dietary supplementation with Boost/ensure BID-TID in between meals. If patient is unable to tolerate advancement of diet and needs feeding tube for concern of her nutritional status , our service would recommend transfer to tertiary center for discussion of feeding tube placement given her severely reduced EF and cardiomyopathy. Could place PEG tube via IR approach. Or if PEG tube unable to be placed given her dysmotility and hiatal hernia than there is multidisciplinary teams available if patient were to require surgical intervention given the cardiomyopathy and reduced EF of 25% (cardiothoracic, etc). Our services signing off, call with any questions or concerns. (2) Hernia, hiatal: (3) Cardiomyopathy: (4) End-stage renal disease (ESRD): Dr. Angeles was present during my evaluation of patient and recommend above plan. History of Present Illness Reason for Consultation: Feeding tube placement, j-tube Requesting Physician: Marky Keith MD Attending Physician: Omero Montoya DO History of Present Illness 73 year-old female with history of [place] prosthesis placed 30 years ago for GERD with subsequent removal of the prosthesis 5 years ago who presented to hospital 2 weeks ago with epigastric abdominal pain and vomiting. She was also found to have elevated Troponin of 12 on admission in which she had an echocardiogram and cardiac cath which showed severely reduced LV systolic function with EF of 20-25% and no coronary occlusion respectively. She had removal of prosthesis by Dr. Stiles at [facility] in [place] 5 years ago. Per [facility] records, she was having dysphagia and low appetite with nausea after prosthesis removal. She states she was told she would not be able to have hiatal hernia repaired given the scar tissue from the prosthesis. Our services consulted for possible j-tube placement. She states she currently is tolerating full liquids without having pain but was not able to tolerate chicken and asparagus last night. Tolerated soft textured foods with ease and her pain as resolved otherwise. Allergies Allergy/AdvReac Type Severity Reaction Status Date / Time lisinopril AdvReac Intermediate cough Verified 12/28/18 15:33 Home Medications Home Medications Medication Instructions Recorded Confirmed Type ProRenal QD 1 tab PO QDL 06/16/18 12/28/18 History aspirin 81 mg PO QAM 06/16/18 12/28/18 History calcium acetate 1,334 mg PO TIDM 06/16/18 12/28/18 History carvedilol 12.5 mg PO BID 06/16/18 12/28/18 History citalopram 20 mg PO HS 06/16/18 12/28/18 History levothyroxine 100 mcg PO HS 06/16/18 12/28/18 History calcium acetate 667 mg PO UD 07/26/18 12/28/18 History atorvastatin 20 mg tablet 20 mg PO HS #90 tab 11/11/18 12/28/18 Rx hydralazine 25 mg tablet 25 mg PO TID 90 Days #270 tab 11/11/18 12/28/18 Rx pantoprazole 40 mg tablet,delayed 40 mg PO BID 90 Days #180 tab 11/11/18 12/28/18 Rx release gabapentin 300 mg capsule 300 mg PO 3XWK #42 cap 12/20/18 12/28/18 History magnesium 400 mg (as magnesium 400 mg PO QAM cap 12/20/18 12/28/18 History oxide) capsule albuterol sulfate HFA 90 2 puffs INHALATION .INHALE 2 PUFFS 07/24/19 07/31/19 History mcg/actuation aerosol inhaler EVERY #1 gm gabapentin 300 mg PO HS 12/28/18 12/28/18 History insulin detemir U-100 20 unit SUBCUT BID 12/28/18 12/28/18 History Patient History Medical History Depression with anxiety (Acute) Diabetic retinopathy (Acute) Dyslipidemia (Acute) Dysphagia (Acute) Epigastric pain (Acute) GERD without esophagitis (Acute) Hypomagnesemia (Acute) Hypotension (Acute) Insomnia (Acute) Joint pain, knee (Acute) Macular puckering, bilateral (Acute) Obstructive sleep apnea (Acute) Otalgia (Acute) Panniculitis (Acute) Paresthesias (Acute) Polyarthritis (Acute) Proteinuria (Acute) Stage 4 chronic kidney disease (Acute) Tubular adenoma of colon (Acute) 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 (Acute) Vitamin D deficiency (Acute) Chronic diastolic heart failure Hypothyroidism Coronary artery disease UTI (urinary tract infection) Anemia Elevated troponin COPD (chronic obstructive pulmonary disease) Diabetes mellitus Diabetes Dehydration (Acute) Chronic kidney disease (Chronic) Arthritis (Chronic) 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) Depression (Chronic) End stage renal disease History of thrombophlebitis (Resolved) Hypertension (Acute) Obesity Diabetes Surgical History H/O: hysterectomy (Resolved) S/P arteriovenous (AV) fistula creation S/P hysterectomy S/P rotator cuff repair Family History Mother Leukemia Cerebral aneurysm Hypertension Anxiety Diabetes Grandmother Hypertension Father Osteoarthritis Diabetes Sister Diabetes Myocardial infarction Brother Myocardial infarction Other No significant family history Social History Preferred Language: Lao Communication Ability: Effective Harness Tier Required: No Beliefs That Will Affect Care: None Current Living Situation: Spouse Other Information That Helps Us Care for You: No Feels Safe at Home: Yes Safety Concerns: Feels Safe At This Time Smoking Status: Never smoker Do You Dip or Chew Tobacco: No ; Second Hand Exposure: No ; Tobacco Cessation Education Requested by Patient: No Hx Alcohol Use: No Hx Substance Use: No Physical Exam Constitutional: WD/WN, vitals as above + obese; no acute distress and not ill appearing Respiratory: normal respiratory effort; no respiratory distress, no labored b reathing and no retractions Skin: no rashes, warm and dry Psychiatric: A+Ox3, euthymic affect Results & Data Vital Signs (Past 12 Hours) Vital Signs Temp Pulse Resp BP Pulse Ox 01/11/19 07:29 36.6 C 55 L 18 161/87 H 97 01/11/19 00:00 36.8 C 65 20 145/75 H 96 Laboratory Results 01/11/19 01/11/19 01/11/19 Range/Units 07:50 06:24 06:24 WBC (4.8-10.8) K/uL RBC (4.2-5.4) M/uL Hgb (12.0-16.0) g/dL Hct (37-47) % MCV (80-100) fL MCH (25-34) pg MCHC (32-36) g/dL RDW Std Deviation (36.4-46.3) fL RDW Coeff of Jared (11.5-14.5) % Plt Count (130-400) K/uL MPV (7.4-10.4) fL Immature Gran % (Auto) % Neut % (Auto) % Lymph % (Auto) % Whitman % (Auto) % Eos % (Auto) % Baso % (Auto) % Immature Gran # (Auto) (0.00-0.02) K/uL Neut # (Auto) (1.4-6.5) K/uL Lymph # (Auto) (1.2-3.4) K/uL Whitman # (Auto) (0.11-0.59) K/uL Eos # (Auto) (0-0.5) K/uL Baso # (Auto) (0-0.2) K/uL PT 10.9 (9.0-12.0) Seconds INR 1.1 (0.9-1.1) Sodium 133 L (136-145) mmol/L Potassium 3.7 (3.5-5.1) mmol/L Chloride 98 (98-107) mmol/L Carbon Dioxide 27 (21-32) mmol/L Anion Gap 8.0 (3-11) BUN 26 H (7-18) mg/dl Creatinine 4.39 H D (0.6-1.2) mg/dl Est Cr Clr Drug Dosing 13.2 ml/min Est GFR ( Amer) 10.8 Est GFR (Non-Af Amer) 9.3 BUN/Creatinine Ratio 5.8 L (10-20) Glucose 93 (70-99) mg/dl POC Glucose 98 (70-99) Calcium 8.6 (8.5-10.1) mg/dl 01/11/19 01/10/19 01/10/19 Range/Units 06:24 20:15 16:37 WBC 5.70 (4.8-10.8) K/uL RBC 2.95 L (4.2-5.4) M/uL Hgb 9.4 L (12.0-16.0) g/dL Hct 29.7 L (37-47) % MCV 100.7 H (80-100) fL MCH 31.9 (25-34) pg MCHC 31.6 L (32-36) g/dL RDW Std Deviation 58.3 H (36.4-46.3) fL RDW Coeff of Jared 16.0 H (11.5-14.5) % Plt Count 158 (130-400) K/uL MPV 10.4 (7.4-10.4) fL Immature Gran % (Auto) 0.9 % Neut % (Auto) 57.3 % Lymph % (Auto) 21.1 % Whitman % (Auto) 17.9 % Eos % (Auto) 2.1 % Baso % (Auto) 0.7 % Immature Gran # (Auto) 0.05 H (0.00-0.02) K/uL Neut # (Auto) 3.27 (1.4-6.5) K/uL Lymph # (Auto) 1.20 (1.2-3.4) K/uL Whitman # (Auto) 1.02 H (0.11-0.59) K/uL Eos # (Auto) 0.12 (0-0.5) K/uL Baso # (Auto) 0.04 (0-0.2) K/uL PT (9.0-12.0) Seconds INR (0.9-1.1) Sodium (136-145) mmol/L Potassium (3.5-5.1) mmol/L Chloride (98-107) mmol/L Carbon Dioxide (21-32) mmol/L Anion Gap (3-11) BUN (7-18) mg/dl Creatinine (0.6-1.2) mg/dl Est Cr Clr Drug Dosing ml/min Est GFR ( Amer) Est GFR (Non-Af Amer) BUN/Creatinine Ratio (10-20) Glucose (70-99) mg/dl POC Glucose 158 H 139 H (70-99) Calcium (8.5-10.1) mg/dl 01/10/19 Range/Units 13:54 WBC (4.8-10.8) K/uL RBC (4.2-5.4) M/uL Hgb (12.0-16.0) g/dL Hct (37-47) % MCV (80-100) fL MCH (25-34) pg MCHC (32-36) g/dL RDW Std Deviation (36.4-46.3) fL RDW Coeff of Jared (11.5-14.5) % Plt Count (130-400) K/uL MPV (7.4-10.4) fL Immature Gran % (Auto) % Neut % (Auto) % Lymph % (Auto) % Whitman % (Auto) % Eos % (Auto) % Baso % (Auto) % Immature Gran # (Auto) (0.00-0.02) K/uL Neut # (Auto) (1.4-6.5) K/uL Lymph # (Auto) (1.2-3.4) K/uL Whitman # (Auto) (0.11-0.59) K/uL Eos # (Auto) (0-0.5) K/uL Baso # (Auto) (0-0.2) K/uL PT (9.0-12.0) Seconds INR (0.9-1.1) Sodium (136-145) mmol/L Potassium (3.5-5.1) mmol/L Chloride (98-107) mmol/L Carbon Dioxide (21-32) mmol/L Anion Gap (3-11) BUN (7-18) mg/dl Creatinine (0.6-1.2) mg/dl Est Cr Clr Drug Dosing ml/min Est GFR ( Amer) Est GFR (Non-Af Amer) BUN/Creatinine Ratio (10-20) Glucose (70-99) mg/dl POC Glucose 92 (70-99) Calcium (8.5-10.1) mg/dl Diagnostic Findings DOUBLE CONTRAST BARIUM ESOPHAGRAM CLINICAL HISTORY: Epigastric discomfort. COMPARISON STUDY: Barium esophagram dated 08/01/2018. Abdominal CT dated 12/30/2018. TECHNIQUE: A standard air contrast barium esophagram is performed. Multiple spot images of the esophagus are acquired both upright and prone. FINDINGS: The patient swallowed without difficulty. The patient could not swallow the barium pill. The mucosal pattern is normal. Moderate dysmotility is seen in the mid to distal third. There is no evidence of intrinsic or extrinsic mass lesion. No aspiration was identified. The gastroesophageal junction distended normally. Postoperative change is identified at the diaphragmatic hiatus. There is a moderate hiatal hernia filled with debris. No gastroesophageal reflux could be elicited by having the patient perform the Valsalva maneuver. Fluoroscopy time: 1.7 minutes. Fluoroscopic images: 22 IMPRESSION: 1. There is a moderate debris-filled hiatal hernia. 2. Moderate esophageal dysmotility. 3. Postoperative change is seen at the diaphragmatic hiatus. ABDOMEN AND PELVIS CT WITH IV CONTRAST CT DOSE: 1460.66 mGy.cm HISTORY: Acute generalized abdominal pain with nausea abdominal pain, nausea, WITH ONLY PER DR. KEITH () TECHNIQUE: Multiaxial CT images of the abdomen and pelvis were performed following the use of intravenous contrast. A dose lowering technique was utilized adhering to the principles of ALARA. COMPARISON STUDY: CT abdomen and pelvis 12/28/2018. FINDINGS: Study is mildly motion degraded. Small bilateral pleural effusions have increased in size from comparison. Progressive bibasilar dependent consolidation and bibasilar intralobular septal thickening. No pneumatosis or pneumoperitoneum. The imaged inferior cardiac chambers are enlarged. Dense mitral annular calcifications. No pericardial effusion. Mild gallbladder distention without cholelithiasis or biliary ductal dilation. There is minimal stranding about the clemente hepatis and gallbladder fundus with equivocal gallbladder wall thickening. Prominent periportal and precaval lymph nodes nodes are seen measuring up to 9 mm. Spleen, pancreas and right adrenal gland are unremarkable. Unchanged 2.3 cm lesion of the left adrenal gland compatible with adenoma. Liver appears unremarkable. Atrophic morphology of the left kidney. Bilateral renal cortical thinning. No definite renal or ureteral calculi. Partial distention of the bladder with mild wall thickening. Focus of air noted within the nondependent urinary bladder. Surgically absent uterus. No adnexal mass lesions. Mixed plaque formation of the abdominal aorta without aneurysm. No adenopathy. Debris-filled moderate sized hiatal hernia. Postoperative changes are noted about the gastroesophageal junction. No bowel obstruction. Colonic diverticulosis without acute diverticulitis. Terminal ileum is unremarkable. Appendix not diagnostically visualized. Small fat filled periumbilical hernia. Mild body wall edema. Degenerative changes of the spine, pelvis and hips. The bones appear intact. IMPRESSION: 1. No bowel obstruction or bowel wall thickening. 2. Mild gallbladder distention with trace nonspecific edema noted about the gallbladder fundus and clemente hepatis. Findings could be further evaluated with right upper quadrant ultrasound if clinically indicated. 3. Partial distention of the urinary bladder with mild wall thickening. Correlate with urinalysis. 4. Colonic diverticulosis without acute diverticulitis. 5. Cardiomegaly with increased size of the bilateral pleural effusions with progressive dependent bibasilar consolidation. Additionally, there is intralobular septal suspicious for pulmonary edema. 6. Moderate-sized debris-filled hiatal hernia. 7. Additional findings as above. Echocardiogram 01/03/2019 Severely reduced systolic function with EF 25%, mild improvement from Echocardiogram on 12/30/2018 (20-25%)
--- NOTE | 2019-01-11 19:01 | Discharge Summary ---
Date of Service January 11, 2019 Admission HPI Per Admitting Provider 73-year-old female who presents with acute onset of nonbloody emesis, epigastric abdominal pain since 1 AM this morning. Her accompanies her at the bedside. Patient is in visible discomfort and nausea. helps provide the history. He states that she woke up this morning at 1 AM with acute onset of nausea. She has been emetic all day, denies blood in the vomitus. Poor p.o. intake. Of note, denies any loose stools. Denies any new or exotic foods. Denies any sick contacts. states that her issues with her reflux and nausea have progressively worsened since the esophageal band was removed, and according to her records it appears this has been since at least 2014. Patient denies cough or wheezing. She is currently on 4 L via oxygen mask. According to her record she is on 2 to 3 L at baseline for her COPD and severe sleep apnea. Review of records shows most recent barium swallow in July 2018 noted a small hiatal hernia, and moderate esophageal dysmotility. ED course: Fluids, Zofran, Phenergan. PMH 1. TASH Noncompliant with BiPAP, COPD, 2-3L O2 dependent, On Spiriva 2. Chronic GERD, esophageal dysmotility - On PPI and H2 ramesh 3. Echo April 2017 this year found ejection fraction 55%. Mild LVH. 4. Incontinence 5. Depression with anxiety 6. Diabetes with retinopathy - Last A1c 6.8 7. Dyslipidemia 8. History of chronically elevated troponin 9. Hypertension 10. ESRD on dialysis HD every Wednesday and Wednesday 11. Chronic anemia with a baseline of 9.5 12. Hypothyroidism PSH 1. Bladder surgery 2. Cataract surgery 3. Nasal septoplasty 4. History of repair of paraesophageal hiatus hernia with thoraco-abdominal implant of mesh - Removed after 2014 5. CRISTINO RUANO SH Lives with . Non-smoker. Principal Diagnosis nausea/vomiting/abd pain Discharge Exam Constitutional WD/WN, vitals as above Eyes PERRL, conjunctivae normal, anicteric sclerae Respiratory normal respiratory effort, lungs clear to auscultation Cardiovascular RRR, no murmur, no edema Gastrointestinal (Abdomen) normal bowel sounds, soft, nontender, no hepatosplenomegaly Skin no rashes, warm and dry Psychiatric A+Ox3, euthymic affect Discharge Data Allergies Allergy/AdvReac Type Severity Reaction Status Date / Time lisinopril AdvReac Intermediate cough Verified 12/28/18 15:33 Consultations 12/28/18 17:51 ED Decision to Admit Stat 12/28/18 21:42 Consult Case Management - Discharge Planning Routine Consult Nephrology Routine 12/29/18 05:41 Consult Nephrology Stat 12/29/18 08:14 Consult Cardiology Routine 12/29/18 21:10 Consult Gastroenterology Routine 01/02/19 14:54 Consult Thoracic Surgery Routine 01/08/19 17:41 Consult Physician Routine 01/10/19 16:36 Consult General Surgery Routine Procedures Performed Operation Date: 12/30/18 10:30 Actual Procedures s Cineradiography w/Routine Exam - Sinan Qureshi MD p Cath, Left with Cors and Vent - Sinan Qureshi MD Ordered Studies 12/28/18 17:01 CT abd pelvis wo con Stat CT chest wo con Stat 12/30/18 10:24 CL Cath Imgs for PACS use only Routine 12/30/18 13:44 CT abd pelvis IV con only Urgent 12/31/18 14:14 US abdomen limited Routine 01/02/19 10:00 FL barium swallow Routine Hospital Course (1) End-stage renal disease (ESRD): Ms. Patrick is a 73-year-old female with a past medical history of end- stage renal disease, on dialysis, chronic CHF chronic anemia, hypothyroidism, hyperlipidemia, depression and anxiety who presented to [facility] due to epigastric pain, nausea and vomiting. The following was the medica l management during her stay here: Nausea/vomiting/abdominal pain - Patient has a history of chronic GERD, as well as dysphagia. She has had ongoing nausea, vomiting and epigastric pain since the removal of a silicone ring that was placed during a prior hiatal hernia repair four years ago. Had been doing okay until 24 hours before admission. -She stated she has never had an episode like she had on admission with unrelenting abdominal pain and nausea. -No evidence of aortic dissection on imaging, no evidence for pancreatitis on labs -CT abdomen/pelvis -> mild gallbladder distention with edema. Partial distention of urinary bladder with mild wall thickening. -Follow-up right upper quadrant ultrasound showed gallbladder distention, however no inflammation -LFTs within normal limits - We continued 20 mg IV famotidine twice daily and pantoprazole 40 mg twice daily, ondansetron 4 mg prn every 4 hours and promethazine 12.5 mg every 4 hours prn -GI recommended thoracic surgery consultation for possible hiatal hernia repair. Thoracic surgery declined intervention -Next, we called [facility] and discussed case with surgeons there who operated on her before, they were unable to offer any further treatments. -GI did not feel PEG could be placed endoscopically -Patient requested surgery consult to discuss PEG tube placement -In interim, NG tube was placed and was tolerating. NG tube was subsequently mistakenly pulled by nursing overnight, and next day pt was tolerating PO intake regardless. -Since patient was currently tolerating advancement of diet slowly and in the light of her cardiomyopathy with EF of 20-25%, Sx recommend to hold off on feeding tube placement surgically. -Dietary had been consulted and recs patient soft/slippery diet. Advised patient to eat smaller frequent meals and to eat very slowly and cut up her food in small pieces. -If patient is unable to tolerate advancement of diet and needs feeding tube for concern of her nutritional status , Sx recommend transfer to tertiary center for discussion of feeding tube placement given her severely reduced EF and cardiomyopathy. Could place PEG tube via IR approach. Or if PEG tube unable to be placed given her dysmotility and hiatal hernia than there is multidisciplinary teams available if patient were to require surgical intervention given the cardiomyopathy and reduced EF of 25% (cardiothoracic, etc). Elevated Troponin with normal coronaries on [facility], Nonischemic cardiomyopathy -Patient has a history of chronically elevated troponin secondary to coronary artery disease and chronic renal disease -New spike this admission, with a peak of 12.6 - ECHO showed severely reduced EF (20-25%) with wall motion hypo to akinetic wall motion of right and left ventricles except for the basal aspects. (Roman difference to recent echo from earlier in the year showing EF of 55%) - Cardiology was consulted -> Patient underwent a cardiac catheterization, where she was found to have normal coronary arteries. - ECHO on 01/03 showed improved EF (40-45%) - Patient appears to have a nonischemic cardiomyopathy - Lyme antibodies negative, most likely diagnosis is Takotsubo cardiomyopathy - We continued increased dose of carvedilol 25 mg, daily aspirin and atorvastatin - Cardiology feels that her cardiac function could very well improve with time Fever, leukocytosis - Patient spiked a fever of 38.1 C on 12/29 - Patient was placed on Zosyn, and has been afebrile since - Unsure of source of infection at that time. Patient had leukocytosis up to 17.8, this is slowly resolving and has returned back to normal today - No evidence of pneumonia or skin infection - Zosyn d/c'd - Blood cultures negative End Stage Renal Disease - Oliguric - Patient was admitted with hyperkalemia and EKG changes, this has now resolved - Nephrology consulted, currently managing hemodialysis. Receiving hemodialysis on Wednesday, , Wednesday Hypertension -Home hydralazine d/c'd, -increased carvedilol for her cardiomyopathy Hypoxemia -Patient meant to wear 2 L of oxygen at home [id number]. She was saturating well on 2 L of oxygen by nasal cannula here, later on RA at time of d/c -CT showed bilateral pleural effusions, as well as pulmonary edema, however patient is at her baseline with regards to breathing Depression -Continued home citalopram Hypothyroidism -Continued home levothyroxine Neuropathy - Continued home gabapentin 300 QHS - Attempted Benadryl to improve sleep 2/2 RLS, this caused confusion(01/07) and was discontinued - Started Mirtazapine 15 mg(01/08) to help with sleep, appetite, and mood - Discussed w/ patient attempting to move legs before bed to improve circulation in the lower extremity - Consider outpatient iron studies to evaluate cause of RLS -PT was ordered to help patient get more active and avoid deconditioning. At time of d/c, pt had no other acute concerns or complaints. Total Time Total Time Spent Total Time Spent (In Minutes): 30 Discharge Plan Discharge Items Patient Disposition: Home - Self-Care Reason For Visit: HYPOXIA,INTRACTABLE VOMITING Discharge Diagnosis: nausea/vomiting/abdominal pain Discharge Goals: Decrease discomfort and Improve function Activity: Per 'Additional Instructions' section Non-emergency contact: Primary Care Provider Call non-emergency contact if: you have any medication questions, your symptoms worsen and your pain is not controlled Follow-up/Referrals: Julito Burt MD [Primary Care Provider] - Diet: See below Addtl Provider Instructions: You were admitted with concerns of nausea, vomiting, and abdominal pain. You were evaluated by GI here along with cardiology who believed your symptoms to be GI in origin. Please follow the below instructions on discharge: -please see your PCP within one week of disharge for normal follow up -please go to your normally scheduled dialysis at [facility] in [place] -continue soft/slippery diet and eat smaller frequent meals and eat very slowly and cut up her food in small pieces -if your symptoms recur, then come back into ER, where we will recommend transfer to tertiary center for discussion of feeding tube placement -you will take increased dose of carvedilol 25 mg PO 2x/day instead of your 12.5 mg dose Prescriptions: New carvedilol 25 mg tablet 25 mg PO BID Qty: 60 RF: 0 Continued atorvastatin 20 mg tablet 20 mg PO HS Qty: 90 RF: 0 hydralazine 25 mg tablet 25 mg PO TID 90 Days Qty: 270 RF: 0 pantoprazole 40 mg tablet,delayed release (DR/EC) 40 mg PO BID 90 Days Qty: 180 RF: 0 gabapentin 300 mg capsule 300 mg PO 3XWK Qty: 42 RF: 0 magnesium oxide 400 mg magnesium capsule 400 mg PO QAM RF: 0 albuterol sulfate 90 mcg/actuation HFA aerosol inhaler 2 puffs inhalation .INHALE 2 PUFFS EVERY Qty: 1 RF: 0 aspirin 81 mg Tablet,Delayed Release (Dr/Ec) 81 mg PO QAM RF: 0 levothyroxine 100 mcg tablet 100 mcg PO HS RF: 0 calcium acetate 667 mg capsule 1,334 mg PO TIDM RF: 0 ProRenal QD 400-500 mcg-unit Capsule 1 tab PO QDL RF: 0 citalopram 20 mg Tablet 20 mg PO HS RF: 0 calcium acetate 667 mg capsule 667 mg PO UD RF: 0 gabapentin 300 mg Capsule 300 mg PO HS RF: 0 insulin detemir U-100 100 unit/mL (3 mL) insulin pen 20 unit subcut BID RF: 0 Discontinued carvedilol 12.5 mg tablet 12.5 mg PO BID RF: 0 Stand-Alone Forms: Call Back Authorization, [facility]/Other Patient Handouts: Dysphagia Discharge Orders: Discharge Order (Routine); Ordered 01/11/19 Ordered By: Massimo Vivas Admission Data Admit Date/Time: 12/28/18 20:31 Attending Provider: Omero Montoya Admit Provider: Margret Barfield Primary Care Provider: Julito Burt Other Providers: Darian Guevara ; Any Dawn ; Adolfo Trujillo ; Charlee Avendaño ; Hugo Patrick ; Saad Antonio ; Travis Joyner ; Zeeshan Beckford ; Shaunna Etienne ; Francisca Harris ; Dom Kwok ; Radha Angeles Service: Medical Other Interventions: Discharge Summary Assessment (RN) Last Done: 01/11/19 16:29 SD Date/Time DO NOT enter until pt leaves facility: 01/11/19 17:12 Supervising Physician Co-Signing Physician Notes ATTENDING NOTE I saw the patient separately from Dr. Harden and confirmed bergeron portion of the history and physical exam. I agree with the impression and plan as noted above. I had a long discussion with the patient and her today regarding her situation and care possibilities. She is tolerating a soft slippery diet without symptoms. We discussed that a PEG tube placement endoscopically would be difficult if not impossible given her surgical history. We discussed that if she was unable to tolerate a soft slippery diet she would need a J-tube placed either surgically or with the assistance of interventional radiology. We decided that since she is doing well on the soft slippery diet that she would like to try that for as long as she can before committing to enteral feeding. With her history of hiatal hernia and distal esophageal dysmotility -there will likely be progression and I suspect at some point she will need placement of a feeding tube. However, there is no way to tell when this will be needed, and if she is tolerating the diet as well as she is now, there is no immediate need to do so. We discussed how this may progress -she may have an acute spasm and/or food impaction for which she would come back to our facility for stabilization and likely transfer to a tertiary care facility; the other possibility is that she has progressive worsening although not to the point of intractable esophageal spasm and impaction and the placement of a tube would be more of an elective procedure. The patient and her seem comfortable with this approach and she was eager for discharge. Resident Activity Tracking Resident Involvement: Resident Care Provided Care Provided: [facility]
[2019-01-12] MEDS ORDERED: EPOETIN ALFA 4,000 UNIT/ML VIAL IV ONE (07:00)
[2019-01-12] MEDS ORDERED: SODIUM CHLORIDE 0.9% 1000ML 1,000 ML IV PRN (07:00)
== END 2019-01-11 17:12 | disposition home or self-care (01) | DRG 280 ==
LOC: ED 14:50 → SUATTDRO 20:31 → 2E 20:31 → 4W 01-05 17:20

== ENCOUNTER 2020-02-27 03:57 | Inpatient (IN) ==
[2020-02-27 04:33] LABS: Basophils # (auto) 0.03 K/uL (0-0.2); Basophils % (auto) 0.2 %; Eosinophils # (auto) 0.14 K/uL (0-0.5); Eosinophils % (auto) 1.2 %; Hematocrit (blood only) 31.4 % (37-47); Hemoglobin 9.6 g/dL (12.0-16.0); Immature Granulocytes # (auto) 0.03 K/uL (0.00-0.02); Immature Granulocytes % (auto) 0.2 %; Lymphocytes # (auto) 0.88 K/uL (1.2-3.4); Lymphocytes % (auto) 7.3 %; Mean Corpuscular Hgb Conc 30.6 g/dL (32-36); Mean Corpuscular Volume 104.7 fL (80-100); Monocytes # (auto) 0.92 K/uL (0.11-0.59); Monocytes % (auto) 7.6 %; Neutrophils # (auto) 10.08 K/uL (1.4-6.5); Neutrophils % (auto) 83.5 %; Platelet Count 173 K/uL (130-400); RDW Coefficient of Variation 15.6 % (11.5-14.5); RDW Standard Deviation 60.2 fL (36.4-46.3); White Blood Count 12.08 K/uL (4.8-10.8)
[2020-02-27 04:46] LABS: INR 1.1 (0.9-1.1); Partial Thromboplastin Time 27.5 Seconds (21.0-31.0); Prothrombin Time 11.2 Seconds (9.0-12.0)
[2020-02-27 05:01] LABS: Alanine Aminotransferase 11 U/L (12-78); Albumin Globulin Ratio 0.9 (0.9-2); Albumin Level 3.7 gm/dl (3.4-5.0); Alkaline Phosphatase 77 U/L (45-117); Aspartate Aminotransferase 15 U/L (15-37); BUN Creatinine Ratio 7.8 (10-20); Bilirubin,Total 0.5 mg/dl (0.2-1); Blood Urea Nitrogen 61 mg/dl (7-18); Calcium 8.8 mg/dl (8.5-10.1); Carbon Dioxide 30 mmol/L (21-32); Chloride 103 mmol/L (98-107); Est GFR (African American) 5.3; Est GFR (Non-African American) 4.6; Globulin 4.2 gm/dl (2.5-4.0); Glucose 120 mg/dl (70-99); Potassium 6.3 mmol/L (3.5-5.1); Sodium 137 mmol/L (136-145); Total Protein 7.9 gm/dl (6.4-8.2)
--- NOTE | 2020-02-27 05:19 | Emergency Department Note ---
Impression & Plan CHF (congestive heart failure) ED Provider Note NAME: LITO MOHR AGE: 74 SEX: F ARRIVES VIA: Walk-In INFORMANT: Patient, her ED PROVIDER(S): Tere Sheth DO CHIEF COMPLAINT: Shortness of breath and weakness PLAN: Disposition: Admission to the [facility]ist Condition: Stable MEDICAL DECISION MAKING: This is a 74-year-old female patient with end-stage renal disease on dialysis who presents to the emergency department with increasing shortness of breath over the past 4 days. The patient was so weak tonight that she was unable to get out of bed to use the restroom. The got her out to the living room and she requested the come to the hospital. The patient has had significant decline over the past 4 days with increasing shortness of breath and weight gain. Overall picture looks like congestive heart failure and generalized weakness. The case was discussed with the [facility] hospitalist and they will evaluate for further management. Triage Nursing notes reviewed and agree them. Additional history obtained from patient's who was at the bedside and the patient's daughter Prior medical records reviewed Vital Signs: reviewed and remarkable for hypertension Differential diagnosis: Electrolyte abnormality, significant fluid overload, sepsis, pneumonia Diagnostics interpreted by me: ECG: Normal sinus rhythm at a rate of [address] segment elevation or signs of ischemia. There is no ectopy noted Cardiac Monitoring: Normal sinus rhythm at a rate of 82 Laboratory studies: See below Imaging studies: As per my interpretation X-ray: Cardiomegaly with pulmonary vascular congestion and small pleural effusions HPI: 74/F arrives for evaluation of shortness of breath and weakness. The patient has become increasingly short of breath over the past 4 days. She has had significant weight gain and is due for dialysis today. She describes feeling so weak that she could not possibly make it to dialysis this morning. Her explains that she was so weak that she was unable to get out of bed and walk to the bathroom overnight tonight. He describes increasing weakness to the point that she is having difficulty feeding herself because her arms are shaking secondary to extreme weakness. ROS: See above HPI for pertinent positives & negatives. A total of 10 systems reviewed and were otherwise negative. PAST MEDICAL HISTORY:See Below PAST SURGICAL HISTORY:See Below FAMILY HISTORY:See Below SOCIAL HISTORY:See Below HOME MEDICATIONS:See Below ALLERGIES:See Below VITALS:See Below PHYSICAL EXAMINATION: HEENT: Head - normocephalic and atraumatic Pupils are equal, round, and reactive to light. Extraocular eye muscles are intact, and sclera are anicteric. Nose - moist nasal mucosa without discharge. Mouth - moist buccal mucosa. Oropharynx is nonerythematous and there is no tonsillar exudate or edema noted. Neck: Supple; no JVD, nuchal rigidity, cervical lymphadenopathy. Heart: Regular rate and rhythm. There is a normal S1 and S2 with no murmurs, clicks, or gallops appreciated. Lungs: Diminished breath sounds in all lung mahoney Abdomen: Soft, completely nontender, nondistended, with good bowel sounds. There are no palpable pulsatile masses or hepatosplenomegaly. There is no guarding, rigidity, or rebound noted. Extremities: No evidence of cyanosis, clubbing, or edema. There are easily palpable peripheral pulses. Skin: warm and dry with good turgor and no rashes. ED COURSE: Times/Reassessments: 0425: The patient was evaluated in room C5. A complete history and physical was performed. An order was placed for continuous cardiac monitoring. The patient was in a normal sinus rhythm at a rate of 82. Laboratory studies were drawn as above. A twelve-lead EKG was obtained as described above. A portable chest x-ray was performed. Discussed the case at length with the patient's daughter. Previous electronic medical records were reviewed. Patient's vital signs remained stable. She rested comfortably while here in the emergency department. I discussed the case with the [facility] Hospitalist and they will evaluate for further management. Tere Sheth DO Past Med/Surg History Medical History (Updated 02/28/20 @ 07:00 by Tere Sheth DO) Anemia Arthritis Chronic diastolic heart failure Chronic kidney disease Coronary artery disease Dependent on hemodialysis Depression with anxiety Diabetes Diabetes mellitus Diabetic retinopathy Dyslipidemia End-stage renal disease on hemodialysis GERD without esophagitis Hernia, hiatal History of thrombophlebitis Hypertension Hypothyroidism Insomnia Macular puckering, bilateral Obstructive sleep apnea Panniculitis Paresthesias Polyarthritis Tubular adenoma of colon URI (upper respiratory infection) Vitamin D deficiency Surgical History H/O: hysterectomy History of bladder surgery History of cataract surgery History of nasal septoplasty S/P arteriovenous (AV) fistula creation S/P hysterectomy S/P repair of paraesophageal hernia S/P rotator cuff repair Family History Mother Leukemia Cerebral aneurysm Hypertension Anxiety Diabetes Grandmother Hypertension Father Osteoarthritis COPD (chronic obstructive pulmonary disease) Diabetes Sister Diabetes Myocardial infarction COPD (chronic obstructive pulmonary disease) Brother Myocardial infarction Diabetes Denies family history of Ovarian cancer Prostate cancer Breast cancer Colorectal cancer Social History Smoking Status: Never smoker Second Hand Exposure: No; Hx Alcohol Use: No Hx Substance Use: No Preferred Language: Pashto Communication Ability: Effective Template Maker Required: No Beliefs That Will Affect Care: None marital status: Current Living Situation: Spouse current occupational status: retired Feels Safe at Home: Yes Dental Care, Regularly: No Physical Activity Frequency: 1-2 Times per Week Seatbelt Use: always Assistive Devices: Glasses and Oxygen - Continuous Allergies Allergies Allergy/AdvReac Type Severity Reaction Status Date / Time lisinopril AdvReac Intermediate cough Verified 02/27/20 04:20 Home Meds Home Medications Medication Instructions Recorded Confirmed aspirin 81 mg PO QAM 06/16/18 02/27/20 calcium acetate(phosphat bind) 667 mg PO TIDM 07/26/18 02/27/20 magnesium oxide 400 mg PO QAM cap 12/20/18 02/27/20 calcium carbonate 500 mg calcium 500 mg PO QDD 08/10/19 02/27/20 (1,250 mg) tablet acetaminophen [Tylenol Extra 1,000 mg PO Q6H PRN 11/07/19 02/27/20 Strength] vit B,C-iron [id number] ox 1 tab PO QDL 02/27/20 02/27/20 [ProRenal] Previous Rx's Medication Instructions Recorded blood sugar diagnostic #100 ea 07/20/19 pen needle, diabetic 31 gauge x #60 ea 07/20/1910/13" insulin detemir U-100 100 unit/mL 20 units SUBCUT BID #15 ml 09/11/19 (3 mL) subcutaneous pen atorvastatin 20 mg tablet 20 mg PO HS #90 tab 11/08/19 carvedilol 25 mg tablet 25 mg PO BID #180 tab 11/08/19 levothyroxine 100 mcg tablet 100 mcg PO DAILY #90 tab 11/08/19 pantoprazole 40 mg tablet,delayed 40 mg PO BID 90 Days #180 tab 11/08/19 release lorazepam 0.5 mg tablet 0.5 mg PO BID PRN #30 tab 11/09/19 ondansetron HCl 8 mg tablet 8 mg PO Q8H #90 tab 11/09/19 fenofibrate nanocrystallized 48 mg 48 mg PO DAILY #90 tab 11/13/19 tablet escitalopram oxalate 20 mg tablet 20 mg PO HS #90 tab 11/22/19 fluticasone propionate 50 2 sprays INTNAS DAILY #9.9 ml 01/03/20 mcg/actuation nasal spray,suspension gabapentin 300 mg capsule 600 mg PO BID #60 cap 01/03/20 loratadine 10 mg tablet 10 mg PO DAILY #30 tab 01/03/20 tramadol 50 mg tablet 50 mg PO DAILY PRN #30 tab 01/03/20 hydralazine 25 mg tablet 25 mg PO TID 90 Days #270 tab 02/01/20 Results & Data (ED) Vital Signs Vital Signs - 24 hr 02/27/20 04:02 02/27/20 04:52 02/27/20 04:56 Temperature 37.4 C Temperature Source Oral Pulse Rate 78 72 Respiratory Rate 28 H 22 Respiratory Effort / Characteristics Non-Labored Spontaneous Respiratory Depth Normal Blood Pressure 237/94 H 200/101 H Blood Pressure Mean 141 160 Pulse Oximetry 90 98 99 Oxygen Delivery Method Nasal Cannula Nasal Cannula Nasal Cannula Oxygen Flow Rate 3 4 4 Sepsis Recent Fever Within 48 Hours Yes Sepsis New/Unexplained Change in Mental Status No Sepsis Action Taken by Nursing No Action Required 02/27/20 04:57 02/27/20 05:01 Temperature Temperature Source Pulse Rate 75 Respiratory Rate 23 Respiratory Effort / Characteristics Spontaneous Respiratory Depth Blood Pressure 169/83 H Blood Pressure Mean 106 Pulse Oximetry 99 Oxygen Delivery Method Oxygen Flow Rate Sepsis Recent Fever Within 48 Hours Sepsis New/Unexplained Change in Mental Status Sepsis Action Taken by Nursing Laboratory Data Result diagrams: 02/27/20 04:21 02/27/20 04:21 Lab Results 02/27/20 02/27/20 02/27/20 Range/Units 04:21 04:21 04:21 WBC 12.08 H (4.8-10.8) K/uL RBC 3.00 L (4.2-5.4) M/uL Hgb 9.6 L (12.0-16.0) g/dL Hct 31.4 L (37-47) % MCV 104.7 H (80-100) fL MCH 32.0 (25-34) pg MCHC 30.6 L (32-36) g/dL RDW Std Deviation 60.2 H (36.4-46.3) fL RDW Coeff of Jared 15.6 H (11.5-14.5) % Plt Count 173 (130-400) K/uL MPV 10.0 (7.4-10.4) fL Immature Gran % (Auto) 0.2 % Neut % (Auto) 83.5 % Lymph % (Auto) 7.3 % [place] % (Auto) 7.6 % Eos % (Auto) 1.2 % Baso % (Auto) 0.2 % Neut # (Auto) 10.08 H (1.4-6.5) K/uL Lymph # (Auto) 0.88 L (1.2-3.4) K/uL [place] # (Auto) 0.92 H (0.11-0.59) K/uL Eos # (Auto) 0.14 (0-0.5) K/uL Baso # (Auto) 0.03 (0-0.2) K/uL Immature Gran # (Auto) 0.03 H (0.00-0.02) K/uL PT 11.2 (9.0-12.0) Seconds INR 1.1 (0.9-1.1) APTT 27.5 (21.0-31.0) Seconds PTT Ratio 1.0 Sodium 137 (136-145) mmol/L Potassium 6.3 H* (3.5-5.1) mmol/L Chloride 103 (98-107) mmol/L Carbon Dioxide 30 (21-32) mmol/L Anion Gap 4.0 (3-11) BUN 61 H (7-18) mg/dl Creatinine 7.84 H* (0.6-1.2) mg/dl Est Cr Clr Drug Dosing Not Reportable Est GFR ( Amer) 5.3 Est GFR (Non-Af Amer) 4.6 BUN/Creatinine Ratio 7.8 L (10-20) Glucose 120 H (70-99) mg/dl Calcium 8.8 (8.5-10.1) mg/dl Total Bilirubin 0.5 (0.2-1) mg/dl AST 15 (15-37) U/L ALT 11 L (12-78) U/L Alkaline Phosphatase 77 (45-117) U/L Total Protein 7.9 (6.4-8.2) gm/dl Albumin 3.7 (3.4-5.0) gm/dl Globulin 4.2 H (2.5-4.0) gm/dl Albumin/Globulin Ratio 0.9 (0.9-2) Administered Medications Aspirin (Aspirin 81 Mg Ectab) 81 mg PO QAM ENRIQUETA Stop: 03/28/20 08:59 Last Admin: 02/27/20 09:58 Dose: 81 mg Documented by: [id number] Atorvastatin Calcium (Atorvastatin 20 Mg Tab) 20 mg PO HS ENRIQUETA Stop: 03/28/20 20:59 Last Admin: 02/27/20 21:28 Dose: 20 mg Documented by: [id number] Calcium Acetate (Calcium Acetate 667 Mg Cap/Tab) 667 mg PO TIDM ENRIQUETA Stop: 03/28/20 08:59 Last Admin: 02/27/20 17:47 Dose: Not Given Documented by: [id number] Admin: 02/27/20 11:25 Dose: Not Given Documented by: [id number] Admin: 02/27/20 09:58 Dose: 667 mg Documented by: [id number] Calcium Carbonate (Calcium Carbonate 1250mg Tab) 1,250 mg PO QDD ENRIQUETA Stop: 03/28/20 16:29 Last Admin: 02/27/20 17:46 Dose: Not Given Documented by: [id number] Carvedilol (Carvedilol 25 Mg Tab) 25 mg PO BIDM ENRIQUETA Stop: 03/28/20 08:59 Last Admin: 02/27/20 18:05 Dose: 25 mg Documented by: [id number] Admin: 02/27/20 09:58 Dose: 25 mg Documented by: [id number] Escitalopram Oxalate (Escitalopram Oxalate 20 Mg Tab) 20 mg PO HS ENRIQUETA Stop: 03/28/20 20:59 Last Admin: 02/27/20 21:28 Dose: 20 mg Documented by: [id number] Fenofibrate (Fenofibrate Nanocrystallized 48 Mg Tablet) 48 mg PO DAILY ENRIQUETA Stop: 03/28/20 08:59 Last Admin: 02/27/20 09:59 Dose: 48 mg Documented by: [id number] Fluticasone Propionate (Fluticasone Propionate Na Spr 16 Gm Btl) 2 sprays DM DAILY [facility] Stop: 03/28/20 08:59 Last Admin: 02/27/20 11:24 Dose: Not Given Documented by: [id number] Gabapentin (Gabapentin 100 Mg Cap) 200 mg PO BID [facility] Stop: 03/28/20 20:59 Last Admin: 02/27/20 22:16 Dose: 200 mg Documented by: [id number] Heparin Sodium (Porcine) (Heparin Sod 5,000 Unit/0.5 Ml Vial) 7,500 units SQ Q8 [facility] Stop: 03/28/20 13:59 Last Admin: 02/28/20 05:38 Dose: 7,500 units Documented by: [id number] Cosigned by: [id number] Admin: 02/27/20 21:23 Dose: 7,500 units Documented by: [id number] Cosigned by: [id number] Admin: 02/27/20 14:41 Dose: Not Given Documented by: [id number] Hydralazine HCl (Hydralazine Hcl 25 Mg Tab) 12.5 mg PO TID [facility] Stop: 03/28/20 08:59 Last Admin: 02/27/20 21:29 Dose: 12.5 mg Documented by: [id number] Admin: 02/27/20 14:40 Dose: Not Given Documented by: [id number] Admin: 02/27/20 09:58 Dose: 12.5 mg Documented by: [id number] Ceftriaxone Sodium 2,000 mg/ (Dextrose) 70 mls @ 100 mls/hr IV Q24H [facility]; Protocol Stop: 02/29/20 08:59 Last Infusion: 02/27/20 10:43 Dose: 0 mls/hr Documented by: [id number] Admin: 02/27/20 09:57 Dose: 100 mls/hr Documented by: [id number] Insulin Aspart (Insulin Aspart 100 Units/Ml 3 Ml Pen) 0 units SC ACHS [facility] Stop: 03/28/20 08:29 Last Admin: 02/27/20 21:32 Dose: Not Given Documented by: [id number] Cosigned by: [id number] Admin: 02/27/20 17:45 Dose: Not Given Documented by: [id number] Cosigned by: [id number] Admin: 02/27/20 11:24 Dose: Not Given Documented by: [id number] Cosigned by: [id number] Admin: 02/27/20 09:57 Dose: 1 units Documented by: [id number] Cosigned by: [id number] Insulin Detemir (Insulin Detemir Flexpen/Flex Touch 100 Units/Ml 3ml) 10 units SQ BID [facility] Stop: 03/28/20 08:59 Last Admin: 02/27/20 21:31 Dose: 10 units Documented by: [id number] Cosigned by: [id number] Admin: 02/27/20 09:59 Dose: 10 units Documented by: [id number] Cosigned by: [id number] Levothyroxine Sodium (Levothyroxine Sodium 100 Mcg Tablet) 100 mcg PO DAILYBB [facility] Stop: 03/28/20 08:59 Last Admin: 02/28/20 05:38 Dose: 100 mcg Documented by: [id number] Admin: 02/27/20 09:58 Dose: 100 mcg Documented by: [id number] Loratadine (Loratadine 10 Mg Tab) 10 mg PO DAILY [facility] Stop: 03/28/20 08:59 Last Admin: 02/27/20 09:59 Dose: 10 mg Documented by: [id number] Magnesium Oxide (Magnesium Oxide 400 Mg Tab) 400 mg PO QAM [facility] Stop: 03/28/20 08:59 Last Admin: 02/27/20 09:58 Dose: 400 mg Documented by: [id number] Pantoprazole Sodium (Pantoprazole 40 Mg Tab) 40 mg PO BID [facility] Stop: 03/28/20 08:59 Last Admin: 02/27/20 21:27 Dose: 40 mg Documented by: [id number] Admin: 02/27/20 09:58 Dose: 40 mg Documented by: [id number] Sucralfate (Sucralfate 1 Gm/10 Ml Udc) 1 gm PO QID [facility] Stop: 03/28/20 20:59 Last Admin: 02/27/20 21:23 Dose: 1 gm Documented by: [id number] Vitamin B Complex/Folic Acid (Nephrocaps) 1 cap PO QDL [facility] Stop: 03/28/20 11:29 Last Admin: 02/27/20 11:24 Dose: Not Given Documented by: [id number] Discontinued Medications Epoetin Kaushal (Epoetin Kaushal 10,000 Units/Ml Vial) 10,000 units IV ONE ONE Stop: 02/27/20 09:54 Last Admin: 02/27/20 12:52 Dose: 10,000 units Documented by: [id number] Gabapentin (Gabapentin 300 Mg Cap) 600 mg PO BID [facility] Stop: 03/28/20 08:59 Last Admin: 02/27/20 09:58 Dose: 600 mg Documented by: [id number] Heparin Sodium (Porcine) (Heparin Sod (Porcine) 1000 Unit/Ml 10 Ml Vial) 2,000 units IV ONE ONE Stop: 02/27/20 09:52 Last Admin: 02/27/20 11:20 Dose: Not Given Documented by: [id number] Heparin Sodium (Porcine) (Heparin Sod (Porcine) 1000 Unit/Ml 10 Ml Vial) 500 units IV Q1H [facility] Stop: 02/27/20 11:01 Last Admin: 02/27/20 13:20 Dose: Not Given Documented by: [id number] Admin: 02/27/20 12:20 Dose: Not Given Documented by: [id number] Prednisone (Prednisone 20 Mg Tab) 20 mg PO NOW STA Stop: 02/27/20 20:46 Last Admin: 02/27/20 21:45 Dose: 20 mg Documented by: [id number] Discharge Plan Visit Data Chief Complaint: Respiratory Problems Stated Complaint: CAN'T CATCH BREATH,DON'T FEEL GOOD ED Provider: Tere Sheth Discharge Problem: CHF (congestive heart failure) Patient Disposition: Admitted As Inpatient Discharge Instructions Interventions: ED Discharge Assessment Last Done: 02/27/20 07:28 Discharge Problem: CHF (congestive heart failure) Qualifiers: Heart failure type: unspecified Heart failure chronicity: acute on chronic Qualified Code(s): I50.9 - Heart failure, unspecified
--- NOTE | 2020-02-27 06:41 | History & Physical Report ---
Date of Service February 27, 2020 Assessment & Plan (1) Acute and chronic respiratory failure with hypoxia: Patient typically requires 3 L of nasal cannula oxygen, and is presently on 4. We will add humidity. Has history of chronic diastolic CHF and restrictive lung disease. Patient is due for dialysis today. If she is still short of breath after dialysis, will order CT of the chest without contrast. Present on Admission?: Yes (2) Restrictive lung disease: If no significant improvement in breathing following dialysis, will be ordering CT of chest. Present on Admission?: Yes (3) End-stage renal disease on hemodialysis: Due for dialysis today. Consult her therapy technician Dr. Stephenson Present on Admission?: Yes (4) Coronary artery disease: CAD/hypertension/chronic diastolic CHF/cardiomyopathy- The patient will be admitted to telemetry for serial cardiac enzymes, serial EKG's, cardiac rhythm monitoring and a 2-D echocardiogram with Dopplers. Last echocardiogram on 01/13/2019 showed an EF of 40 to 45%. She does show some element of fluid overload, which may just be being due for dialysis, however, will order cardiac work-up. Present on Admission?: Yes (5) Cardiomyopathy: See above Present on Admission?: Yes (6) Dyslipidemia: Continue atorvastatin 20 mg at bedtime and fenofibrate 48 mg daily. Present on Admission?: Yes (7) Depression with anxiety: Continue gabapentin 600 mg p.o. twice daily and E citalopram 20 mg p.o. at bedtime Present on Admission?: Yes (8) GERD without esophagitis: Continue pantoprazole 40 mg p.o. twice daily Present on Admission?: Yes (9) Obstructive sleep apnea: CPAP as needed for bedtime Present on Admission?: Yes (10) Diabetes mellitus: (11) Hyperkalemia, diminished renal excretion: Potassium 6.3 upon admission. Does not show any ectopy on monitor. She should be going for dialysis within the next 2 hours, so will not give any aggressive treatment at this time Present on Admission?: Yes History of Present Illness Chief Complaint: The patient presents to the emergency department with 4 days of worsening generalized weakness and shortness of breath, to the point that she was not able to get out of bed to go to dialysis today Primary Care Provider: Julito Burt MD The patient is a 74-year-old female with a past medical history including restrictive lung disease, cardiomyopathy, left bundle branch block, ESRD on HD, anxiety with depression, diabetic retinopathy, dyslipidemia, GERD without esophagitis, insomnia, TASH, polyarthritis, vitamin D deficiency, chronic diastolic heart failure, hypothyroidism, CAD, diabetes mellitus and hypertension. The patient reports that she has been feeling relatively unwell over the past 3 to 4 weeks, in particular over the past 4 days she has developed significant weakness to the point of not being able to get out of bed. She has generalized worsening of her usual myalgias and arthralgias. Apparently potential sick exposures are when she goes to dialysis. She has had some intermittent loose stools. She does still produce some urine, though she reports it is unchanged. She typically wears 3 L of oxygen at home, and is requiring 4 L to feel more comfortable over the past few days. Allergies Allergy/AdvReac Type Severity Reaction Status Date / Time lisinopril AdvReac Intermediate cough Verified 02/27/20 04:20 Home Medications Home Medications Medication Instructions Recorded Confirmed Type aspirin 81 mg PO QAM 06/16/18 02/27/20 History calcium acetate(phosphat bind) 667 mg PO TIDM 07/26/18 02/27/20 History magnesium oxide 400 mg PO QAM cap 12/20/18 02/27/20 History blood sugar diagnostic #100 ea 07/20/19 01/03/20 Rx pen needle, diabetic 31 gauge x #60 ea 07/20/19 01/03/20 Rx 5/16" calcium carbonate 500 mg calcium 500 mg PO QDD 08/10/19 02/27/20 History (1,250 mg) tablet insulin detemir U-100 100 unit/mL 20 units SUBCUT BID #15 ml 09/11/19 02/27/20 Rx (3 mL) subcutaneous pen acetaminophen [Tylenol Extra 1,000 mg PO Q6H PRN 11/07/19 02/27/20 History Strength] atorvastatin 20 mg tablet 20 mg PO HS #90 tab 11/08/19 02/27/20 Rx carvedilol 25 mg tablet 25 mg PO BID #180 tab 11/08/19 02/27/20 Rx levothyroxine 100 mcg tablet 100 mcg PO DAILY #90 tab 11/08/19 02/27/20 Rx pantoprazole 40 mg tablet,delayed 40 mg PO BID 90 Days #180 tab 11/08/19 02/27/20 Rx release lorazepam 0.5 mg tablet 0.5 mg PO BID PRN #30 tab 11/09/19 02/27/20 Rx ondansetron HCl 8 mg tablet 8 mg PO Q8H #90 tab 11/09/19 02/27/20 Rx fenofibrate nanocrystallized 48 mg 48 mg PO DAILY #90 tab 11/13/19 02/27/20 Rx tablet escitalopram oxalate 20 mg tablet 20 mg PO HS #90 tab 11/22/19 02/27/20 Rx fluticasone propionate 50 2 sprays INTNAS DAILY #9.9 ml 01/03/20 02/27/20 Rx mcg/actuation nasal spray,suspension gabapentin 300 mg capsule 600 mg PO BID #60 cap 01/03/20 02/27/20 Rx loratadine 10 mg tablet 10 mg PO DAILY #30 tab 01/03/20 02/27/20 Rx tramadol 50 mg tablet 50 mg PO DAILY PRN #30 tab 01/03/20 02/27/20 Rx hydralazine 25 mg tablet 25 mg PO TID 90 Days #270 tab 02/01/20 02/27/20 Rx vit B,C-iron udh-LY-Y1-zinc ox 1 tab PO QDL 02/27/20 02/27/20 History [ProRenal] Past Med/Surg History Medical History (Updated 02/27/20 @ 06:33 by Carlos Eduardo Arias MD) Anemia Arthritis Chronic diastolic heart failure Chronic kidney disease Coronary artery disease Dependent on hemodialysis Depression with anxiety Diabetes Diabetes mellitus Diabetic retinopathy Dyslipidemia End-stage renal disease on hemodialysis GERD without esophagitis Hernia, hiatal History of thrombophlebitis Hypertension Hypothyroidism Insomnia Macular puckering, bilateral Obstructive sleep apnea Panniculitis Paresthesias Polyarthritis Tubular adenoma of colon URI (upper respiratory infection) Vitamin D deficiency Surgical History H/O: hysterectomy History of bladder surgery History of cataract surgery History of nasal septoplasty S/P arteriovenous (AV) fistula creation S/P hysterectomy S/P repair of paraesophageal hernia S/P rotator cuff repair Family History Mother Leukemia Cerebral aneurysm Hypertension Anxiety Diabetes Grandmother Hypertension Father Osteoarthritis COPD (chronic obstructive pulmonary disease) Diabetes Sister Diabetes Myocardial infarction COPD (chronic obstructive pulmonary disease) Brother Myocardial infarction Diabetes Denies family history of Ovarian cancer Prostate cancer Breast cancer Colorectal cancer Social History Smoking Status: Never smoker Second Hand Exposure: No; Hx Alcohol Use: No Hx Substance Use: No Preferred Language: Armenian Communication Ability: Effective Cad Technician Required: No Beliefs That Will Affect Care: None marital status: Current Living Situation: Spouse current occupational status: retired Feels Safe at Home: Yes Dental Care, Regularly: No Physical Activity Frequency: 1-2 Times per Week Seatbelt Use: always Assistive Devices: Glasses and Walker Review of Systems 2 Review of Systems: The patient denies chest pain, palpitations, cough, lower extremity swelling, sore throat, fevers, chills, sweats, nausea, vomiting, abdominal pain, pelvic pain, blood in urine or stool, dysuria, urinary frequency or urgency, memory loss, loss of consciousness, rash, abnormal bruising or bleeding, imbalance, focal weakness, numbness or tingling in arms or legs, back or neck pain, or night sweats. The review of systems is otherwise negative other than for that already noted above, and at least 10 systems have been reviewed. Physical Exam Physical Exam: The patient is awake, alert and oriented 3.the patient is lying in bed, looks and feels exhausted, otherwise in no acute distress. HEENT--PERRL, EOMI, mucous membranes and oropharynx dry. Neck--supple. No JVD. No bruits. Thyroid normal, trachea midline, no adenopathy. Heart--normal S1 and S2. No murmurs, rubs or gallops. Lungs--clear bilaterally, no respiratory distress, no accessory muscle use. Abdomen--normal bowel sounds and soft. Nontender. Nondistended. Obese Extremities--no cyanosis or clubbing. No edema. Dermatologic--normal skin turgor, normal color, no abnormal lymph nodes, no rash. Neurologic--cranial nerves II through XII grossly intact. Rheumatologic--difficult exam due to being so exhausted Psychiatric--normal affect. Results & Data Results & Data ([facility]) Vital Signs (Past 12 Hours) Vital Signs Temp Pulse Resp BP Pulse Ox 02/27/20 06:01 70 22 177/83 H 96 02/27/20 05:31 73 20 185/87 H 96 02/27/20 05:01 75 23 169/83 H 99 02/27/20 04:56 99 02/27/20 04:52 72 22 200/101 H 98 02/27/20 04:02 99.3 F 78 28 H 237/94 H 90 Laboratory Results Laboratory Results WBC 12.08 K/uL (4.8-10.8) H 02/27/20 04:21 RBC 3.00 M/uL (4.2-5.4) L 02/27/20 04:21 Hgb 9.6 g/dL (12.0-16.0) L 02/27/20 04:21 Hct 31.4 % (37-47) L 02/27/20 04:21 MCV 104.7 fL (80-100) H 02/27/20 04:21 MCH 32.0 pg (25-34) 02/27/20 04:21 MCHC 30.6 g/dL (32-36) L 02/27/20 04:21 RDW Std Deviation 60.2 fL (36.4-46.3) H 02/27/20 04:21 RDW Coeff of Jared 15.6 % (11.5-14.5) H 02/27/20 04:21 Plt Count 173 K/uL (130-400) 02/27/20 04:21 MPV 10.0 fL (7.4-10.4) 02/27/20 04:21 Immature Gran % (Auto) 0.2 % 02/27/20 04:21 Neut % (Auto) 83.5 % 02/27/20 04:21 Lymph % (Auto) 7.3 % 02/27/20 04:21 [place] % (Auto) 7.6 % 02/27/20 04:21 Eos % (Auto) 1.2 % 02/27/20 04:21 Baso % (Auto) 0.2 % 02/27/20 04:21 Neut # (Auto) 10.08 K/uL (1.4-6.5) H 02/27/20 04:21 Lymph # (Auto) 0.88 K/uL (1.2-3.4) L 02/27/20 04:21 [place] # (Auto) 0.92 K/uL (0.11-0.59) H 02/27/20 04:21 Eos # (Auto) 0.14 K/uL (0-0.5) 02/27/20 04:21 Baso # (Auto) 0.03 K/uL (0-0.2) 02/27/20 04:21 Immature Gran # (Auto) 0.03 K/uL (0.00-0.02) H 02/27/20 04:21 PT 11.2 Seconds (9.0-12.0) 02/27/20 04:21 INR 1.1 (0.9-1.1) 02/27/20 04:21 APTT 27.5 Seconds (21.0-31.0) 02/27/20 04:21 PTT Ratio 1.0 02/27/20 04:21 Sodium 137 mmol/L (136-145) 02/27/20 04:21 Potassium 6.3 mmol/L (3.5-5.1) H* 02/27/20 04:21 Chloride 103 mmol/L (98-107) 02/27/20 04:21 Carbon Dioxide 30 mmol/L (21-32) 02/27/20 04:21 Anion Gap 4.0 (3-11) 02/27/20 04:21 BUN 61 mg/dl (7-18) H 02/27/20 04:21 Creatinine 7.84 mg/dl (0.6-1.2) H* 02/27/20 04:21 Est Cr Clr Drug Dosing Not Reportable 02/27/20 04:21 Est GFR ( Amer) 5.3 02/27/20 04:21 Est GFR (Non-Af Amer) 4.6 02/27/20 04:21 BUN/Creatinine Ratio 7.8 (10-20) L 02/27/20 04:21 Glucose 120 mg/dl (70-99) H 02/27/20 04:21 Calcium 8.8 mg/dl (8.5-10.1) 02/27/20 04:21 Total Bilirubin 0.5 mg/dl (0.2-1) 02/27/20 04:21 AST 15 U/L (15-37) 02/27/20 04:21 ALT 11 U/L (12-78) L 02/27/20 04:21 Alkaline Phosphatase 77 U/L (45-117) 02/27/20 04:21 Total Protein 7.9 gm/dl (6.4-8.2) 02/27/20 04:21 Albumin 3.7 gm/dl (3.4-5.0) 02/27/20 04:21 Globulin 4.2 gm/dl (2.5-4.0) H 02/27/20 04:21 Albumin/Globulin Ratio 0.9 (0.9-2) 02/27/20 04:21 Code Status & VTE Plan Code Status Full code VTE Prophylaxis Plan VTE Prophylaxis will be ordered: Yes PG Care Time/CCT Total # of Minutes Spent Total Time Spent with Patient: Total time spent is greater than 50% in coordination of care (as documented) at patient's floor/unit and/or counseling patient: Coding Level of Care Code 98840 Initial Inpt Care Lvl 3 Diagnoses Acute and chronic respiratory failure with hypoxia J96.21 Restrictive lung disease J98.4 End-stage renal disease on hemodialysis N18.6; Z99.2 Coronary artery disease I25.10 Cardiomyopathy I42.9 Dyslipidemia E78.5 Depression with anxiety F41.8 GERD without esophagitis K21.9 Obstructive sleep apnea G47.33 Diabetes mellitus E11.9 Hyperkalemia, diminished renal excretion E87.5
--- NOTE | 2020-02-27 07:07 | CT Scan Report ---
CT OF THE CHEST WITHOUT IV CONTRAST CLINICAL HISTORY: acute on chronic respiratory failure COMPARISON STUDY: Chest CT December 28, 2018. Chest radiograph February 27, 2020. CT DOSE: 844.10 mGy.cm TECHNIQUE: Axial images of the chest were obtained without IV contrast. Images were reviewed in the axial, sagittal, and coronal planes. IV contrast was not administered for this examination. Automat ed exposure control was utilized for the study. A dose lowering technique was utilized adhering to t he principles of ALARA. FINDINGS: The heart is moderately enlarged. There is no pericardial effusion. There is mild dilatati on of the central pulmonary arteries. Note is made of a mildly enlarged precarinal lymph node that me asures 2 x 1.2 cm. This has mildly increased in size since CT of December 28, 2018. There is no pneumotho rax. There are trace bilateral pleural effusions with associated airspace opacities favor atelectasis . Interlobular septal thickening is noted. Additional groundglass opacities within the lungs. There i s no lobar consolidation. No suspicious lesions within the bony thorax are noted. There may be a smal l hiatal hernia. Stable esophageal wall appears thickened. IMPRESSION: 1. Interlobular septal thickening indicative of interstitial pulmonary edema. Additional groundglass opacities may reflect pulmonary edema as well as less likely a superimposed infectious process. 2. Trace bilateral pleural effusions with airspace opacities that favor atelectasis. 3. Mild dilatation of the central pulmonary arteries raises the possibility of pulmonary arterial hyp ertension. Moderate cardiomegaly. 4. Mildly enlarged mediastinal lymph nodes which are nonspecific but may related to pulmonary edema. ACT 112: Negative or not required by law. Electronically signed by: Cyrus Serna M.D. 02/27/2020 7:06 AM
[2020-02-27 07:19] LABS: Appearance Urine Clear (Clear); Bacteria Urine Automated Negative (Negative); Bilirubin Urine Negative (Negative); Blood Urine Negative (Negative); Color Urine Yellow; Epithelial Cell Urine Auto >30 /lpf (0-5); Glucose Urine UA Negative (Negative); Ketones Urine Negative (Negative); Leukocyte Esterase Urine Negative (Negative); Nitrite Urine Negative (Negative); RBC Urine Automated 0-4 /hpf (0-4); Specific Gravity Urine 1.014 (1.000-1.030); Urobilinogen Urine Negative (Negative); pH Urine >= 9.0 (4.5-7.5)
[2020-02-27 07:21] LABS: Protein Urine 2+ (Negative); Sulfosalicylic Acid Urine Positive (Negative)
[2020-02-27 07:31] LABS: Cast Urine Automated 0 /lpf (0-5)
--- NOTE | 2020-02-27 07:50 | XRay Report ---
XR chest 1V portable HISTORY: Dyspnea COMPARISON: Chest 12/30/2018. FINDINGS: No pneumothorax. Trace bilateral pleural effusions and diffuse interstitial thickening has slightly improved. This suggests mild interstitial pulmonary edema. The heart remains mildly enlarged . No new focal lung consolidations. IMPRESSION: Mild interstitial pulmonary edema, trace bilateral pleural effusions, and mild cardiomegaly. This has slightly improved. ACT 112: Negative or not required by law. Electronically signed by: Carter Westfall M.D. 02/27/2020 7:49 AM
[2020-02-27] MEDS ORDERED: GLUCAGON FOR INJ 1 MG VIAL SQ PRN (08:24)
[2020-02-27] MEDS ORDERED: DEXTROSE 50% 50 ML SYRINGE IV PRN (08:24)
[2020-02-27] MEDS ORDERED: GLUCOSE 10 TABS/TUBE PO PRN (08:24)
[2020-02-27] MEDS ORDERED: TRAMADOL HCL 50 MG TABLET PO PRN (08:24)
[2020-02-27] MEDS ORDERED: ONDANSETRON INJ 2 MG/ML 2 ML VIAL IV PRN (08:24)
[2020-02-27] MEDS ORDERED: GLUCOSE 40% GEL 15 GM TUBE PO PRN (08:24)
[2020-02-27] MEDS ORDERED: ACETAMINOPHEN 500 MG TAB PO PRN (08:24)
[2020-02-27] MEDS ORDERED: LORazepam 0.5 MG TAB PO PRN (08:24)
[2020-02-27] MEDS ORDERED: CARBOHYDRATES FOR HYPOGLYCEMIA PO PRN (08:24)
[2020-02-27] MEDS ORDERED: GABAPENTIN 300 MG CAP PO SCH (09:00)
[2020-02-27] MEDS ORDERED: SODIUM CHLORIDE 0.9% 1000ML 1,000 ML IV PRN (09:51)
[2020-02-27] MEDS ORDERED: HEPARIN SOD (PORCINE) 1000 UNIT/ML 10 ML VIAL IV ONE (09:51)
[2020-02-27] MEDS ORDERED: EPOETIN ALFA 10,000 UNITS/ML VIAL IV ONE (09:53)
[2020-02-27] MEDS: INSULIN ASPART 100 UNITS/ML 3 ML PEN SC SCH ×4 (09:57→21:32)
[2020-02-27] MEDS: cefTRIAXone SODIUM 2,000 MG in DEXTROSE 5% 50 ML IV SCH (09:57)
[2020-02-27] MEDS: MAGNESIUM OXIDE 400 MG TAB PO SCH (09:58)
[2020-02-27] MEDS: CALCIUM ACETATE 667 MG CAP/TAB PO SCH ×3 (09:58→17:47)
[2020-02-27] MEDS: ASPIRIN 81 MG ECTAB PO SCH (09:58)
[2020-02-27] MEDS: PANTOprazole 40 MG TAB PO SCH ×2 (09:58→21:27)
[2020-02-27] MEDS: LEVOTHYROXINE SODIUM 100 MCG TABLET PO SCH (09:58)
[2020-02-27] MEDS: carvediloL 25 MG TAB PO SCH ×2 (09:58→18:05)
[2020-02-27] MEDS: INSULIN DETEMIR FLEXPEN/FLEX TOUCH 100 UNITS/ML 3ML SQ SCH ×2 (09:59→21:31)
[2020-02-27] MEDS: LORATADINE 10 MG TAB PO SCH (09:59)
[2020-02-27] MEDS: FENOFIBRATE NANOCRYSTALLIZED 48 MG TABLET PO SCH (09:59)
--- NOTE | 2020-02-27 11:10 | XCELERA ---
[id number]
[2020-02-27] MEDS: FLUTICASONE PROPIONATE NA SPR 16 GM BTL NAE SCH (11:24)
[2020-02-27] MEDS: NEPHROCAPS PO SCH (11:24)
[2020-02-27] MEDS: HEPARIN SOD (PORCINE) 1000 UNIT/ML 10 ML VIAL IV SCH ×2 (12:20→13:20)
--- NOTE | 2020-02-27 13:02 | Nephrology Consultation ---
Date of Consultation February 27, 2020 Assessment & Plan (1) End-stage renal disease on hemodialysis: * Will provide HD today for UF and correction of serum potassium * Attempt 4 L UF today (patient is 6 kg above dry weight) * 2K bath to correct hyperkalemia * Recommend low K/diabetic diet * Will reassess need for HD again in am (2) Congestive heart failure: * Recommend trending troponin x 3. Mild elevation likely related to ESRD. Patient is currently CP free * Echocardiogram 02/27/20 reviewed today: No new RWMA * Suspect large IDWG contributing factor. Reinforced need for 1 L/day oral fluid restriction (3) Anemia: * Will provide RONNELL w/ HD today History of Present Illness Reason for Consultation: ESRD on HD Attending Physician: Sebas Britt History of Present Illness Mrs. Patrick is a 74 year old white female who is seen at the request of Dr. Arias to provide inpatient HD. Medical records in the EMR were reviewed today and are summarized as follows: Mrs. Patrick has ESRD due to diabetic nephropathy. She has been on IHD at [facility] since 2016 (TTS 4hr 2K 2Ca 1Mg F-180NR EDW 99kg). Her medical history is significant for AODM, HTN, ASCVD, hypothyroidism, GERD, depression, RLS and TASH. Mrs. Patrick has large interdialytic weight gains of 5 - 6 kg. She was last dialyzed on Wednesday without complication and attained her EDW of 99 kg. Unfortunately this morning she became progressively weak and dyspneic. She was unable to attend her dialysis treatment. Her brought her to the hospital for medical evaluation. ECG was 1 degree AVB without ischemic change. Troponin was mildly elevated at 0.188. Echocardiogram revealed LVEF 55-60%, no RWMA, mod pulm HTN w/ mod TR and biatrial dilation. CXR revealed mild CHF. Chest CT was negative for consolidation. Allergies Allergy/AdvReac Type Severity Reaction Status Date / Time lisinopril AdvReac Intermediate cough Verified 02/27/20 04:20 Home Medications Home Medications Medication Instructions Recorded Confirmed Type aspirin 81 mg PO QAM 06/16/18 02/27/20 History calcium acetate(phosphat bind) 667 mg PO TIDM 07/26/18 02/27/20 History magnesium oxide 400 mg PO QAM cap 12/20/18 02/27/20 History blood sugar diagnostic #100 ea 07/20/19 01/03/20 Rx pen needle, diabetic 31 gauge x #60 ea 07/20/19 01/03/20 Rx 5/16" calcium carbonate 500 mg calcium 500 mg PO QDD 08/10/19 02/27/20 History (1,250 mg) tablet insulin detemir U-100 100 unit/mL 20 units SUBCUT BID #15 ml 09/11/19 02/27/20 Rx (3 mL) subcutaneous pen acetaminophen [Tylenol Extra 1,000 mg PO Q6H PRN 11/07/19 02/27/20 History Strength] atorvastatin 20 mg tablet 20 mg PO HS #90 tab 11/08/19 02/27/20 Rx carvedilol 25 mg tablet 25 mg PO BID #180 tab 11/08/19 02/27/20 Rx levothyroxine 100 mcg tablet 100 mcg PO DAILY #90 tab 11/08/19 02/27/20 Rx pantoprazole 40 mg tablet,delayed 40 mg PO BID 90 Days #180 tab 11/08/19 02/27/20 Rx release lorazepam 0.5 mg tablet 0.5 mg PO BID PRN #30 tab 11/09/19 02/27/20 Rx ondansetron HCl 8 mg tablet 8 mg PO Q8H #90 tab 11/09/19 02/27/20 Rx fenofibrate nanocrystallized 48 mg 48 mg PO DAILY #90 tab 11/13/19 02/27/20 Rx tablet escitalopram oxalate 20 mg tablet 20 mg PO HS #90 tab 11/22/19 02/27/20 Rx fluticasone propionate 50 2 sprays INTNAS DAILY #9.9 ml 01/03/20 02/27/20 Rx mcg/actuation nasal spray,suspension gabapentin 300 mg capsule 600 mg PO BID #60 cap 01/03/20 02/27/20 Rx loratadine 10 mg tablet 10 mg PO DAILY #30 tab 01/03/20 02/27/20 Rx tramadol 50 mg tablet 50 mg PO DAILY PRN #30 tab 01/03/20 02/27/20 Rx hydralazine 25 mg tablet 25 mg PO TID 90 Days #270 tab 02/01/20 02/27/20 Rx vit B,C-iron ist-WK-D1-zinc ox 1 tab PO QDL 02/27/20 02/27/20 History [ProRenal] Patient History Medical History (Updated 02/27/20 @ 13:19 by Payam Stephenson MD) Anemia Arthritis Chronic diastolic heart failure Chronic kidney disease Coronary artery disease Dependent on hemodialysis Depression with anxiety Diabetes Diabetes mellitus Diabetic retinopathy Dyslipidemia End-stage renal disease on hemodialysis GERD without esophagitis Hernia, hiatal History of thrombophlebitis Hypertension Hypothyroidism Insomnia Macular puckering, bilateral Obstructive sleep apnea Panniculitis Paresthesias Polyarthritis Tubular adenoma of colon URI (upper respiratory infection) Vitamin D deficiency Surgical History H/O: hysterectomy History of bladder surgery History of cataract surgery History of nasal septoplasty S/P arteriovenous (AV) fistula creation S/P hysterectomy S/P repair of paraesophageal hernia S/P rotator cuff repair Family History Mother Leukemia Cerebral aneurysm Hypertension Anxiety Diabetes Grandmother Hypertension Father Osteoarthritis COPD (chronic obstructive pulmonary disease) Diabetes Sister Diabetes Myocardial infarction COPD (chronic obstructive pulmonary disease) Brother Myocardial infarction Diabetes Denies family history of Ovarian cancer Prostate cancer Breast cancer Colorectal cancer Social History Smoking Status: Never smoker Second Hand Exposure: No; Hx Alcohol Use: No Hx Substance Use: No Preferred Language: Turkish Communication Ability: Effective 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 Beliefs That Will Affect Care: None marital status: Current Living Situation: Spouse current occupational status: retired Feels Safe at Home: Yes Dental Care, Regularly: No Physical Activity Frequency: 1-2 Times per Week Seatbelt Use: always Assistive Devices: Glasses and Oxygen - Continuous Review of Systems Constitutional: + weakness; no fever Eyes: no problem reported Ear, Nose, Mouth, Throat: no problem reported Respiratory: no dyspnea Cardiovascular: no chest pain Gastrointestinal: no abdominal pain, no vomiting and no diarrhea/loose stools Musculoskeletal: no back pain Integumentary: no rash Neurologic: no dizziness Physical Exam Constitutional: + obese; not in distress Eyes: PERRL, conjunctivae normal, anicteric sclerae ENMT: external ear and nose normal, oropharynx normal Neck: trachea midline, no thyromegaly Respiratory: Auscultation: + rales Cardiovascular: Rate/Rhythm: regular rate and regular rhythm Extremities: + edema (trace LE edema) and + AV fistula (+ bruit) Gastrointestinal (Abdomen): normal bowel sounds, soft, nontender, no hepatosplenomegaly Skin: no rashes, warm and dry Neurologic: awake; not confused Results & Data ([facility]) Vital Signs (Past 12 Hours) Vital Signs Temp Pulse Pulse Pulse Pulse Resp BP 02/27/20 12:40 55 L 117/79 02/27/20 12:20 58 L 104/53 L 02/27/20 12:00 58 L 134/64 02/27/20 11:40 62 152/69 H 02/27/20 11:23 61 182/74 H 02/27/20 11:14 36.6 C 65 02/27/20 09:52 65 02/27/20 07:42 37.1 C 73 22 02/27/20 07:09 70 18 216/99 H 02/27/20 06:31 69 24 184/78 H 02/27/20 06:01 70 22 177/83 H 02/27/20 05:31 73 20 185/87 H 02/27/20 05:01 75 23 169/83 H 02/27/20 04:56 02/27/20 04:52 72 22 200/101 H 02/27/20 04:02 37.4 C 78 28 H 237/94 H BP Pulse Ox 02/27/20 12:40 02/27/20 12:20 02/27/20 12:00 02/27/20 11:40 02/27/20 11:23 02/27/20 11:14 02/27/20 09:52 200/84 H 02/27/20 07:42 192/92 H 96 02/27/20 07:09 99 02/27/20 06:31 98 02/27/20 06:01 96 02/27/20 05:31 96 02/27/20 05:01 99 02/27/20 04:56 99 02/27/20 04:52 98 02/27/20 04:02 90 Laboratory Results Laboratory Results WBC 12.08 K/uL (4.8-10.8) H 02/27/20 04:21 RBC 3.00 M/uL (4.2-5.4) L 02/27/20 04:21 Hgb 9.6 g/dL (12.0-16.0) L 02/27/20 04:21 Hct 31.4 % (37-47) L 02/27/20 04:21 MCV 104.7 fL (80-100) H 02/27/20 04:21 MCH 32.0 pg (25-34) 02/27/20 04:21 MCHC 30.6 g/dL (32-36) L 02/27/20 04:21 RDW Std Deviation 60.2 fL (36.4-46.3) H 02/27/20 04:21 RDW Coeff of Jared 15.6 % (11.5-14.5) H 02/27/20 04:21 Plt Count 173 K/uL (130-400) 02/27/20 04:21 MPV 10.0 fL (7.4-10.4) 02/27/20 04:21 Immature Gran % (Auto) 0.2 % 02/27/20 04:21 Neut % (Auto) 83.5 % 02/27/20 04:21 Lymph % (Auto) 7.3 % 02/27/20 04:21 [place] % (Auto) 7.6 % 02/27/20 04:21 Eos % (Auto) 1.2 % 02/27/20 04:21 Baso % (Auto) 0.2 % 02/27/20 04:21 Neut # (Auto) 10.08 K/uL (1.4-6.5) H 02/27/20 04:21 Lymph # (Auto) 0.88 K/uL (1.2-3.4) L 02/27/20 04:21 [place] # (Auto) 0.92 K/uL (0.11-0.59) H 02/27/20 04:21 Eos # (Auto) 0.14 K/uL (0-0.5) 02/27/20 04:21 Baso # (Auto) 0.03 K/uL (0-0.2) 02/27/20 04:21 Immature Gran # (Auto) 0.03 K/uL (0.00-0.02) H 02/27/20 04:21 PT 11.2 Seconds (9.0-12.0) 02/27/20 04:21 INR 1.1 (0.9-1.1) 02/27/20 04:21 APTT 27.5 Seconds (21.0-31.0) 02/27/20 04:21 PTT Ratio 1.0 02/27/20 04:21 Sodium 137 mmol/L (136-145) 02/27/20 04:21 Potassium 6.3 mmol/L (3.5-5.1) H* 02/27/20 04:21 Chloride 103 mmol/L (98-107) 02/27/20 04:21 Carbon Dioxide 30 mmol/L (21-32) 02/27/20 04:21 Anion Gap 4.0 (3-11) 02/27/20 04:21 BUN 61 mg/dl (7-18) H 02/27/20 04:21 Creatinine 7.84 mg/dl (0.6-1.2) H* 02/27/20 04:21 Est Cr Clr Drug Dosing Not Reportable 02/27/20 04:21 Est GFR ( Amer) 5.3 02/27/20 04:21 Est GFR (Non-Af Amer) 4.6 02/27/20 04:21 BUN/Creatinine Ratio 7.8 (10-20) L 02/27/20 04:21 Glucose 120 mg/dl (70-99) H 02/27/20 04:21 POC Glucose 136 mg/dl (70-99) H 02/27/20 09:55 Calcium 8.8 mg/dl (8.5-10.1) 02/27/20 04:21 Total Bilirubin 0.5 mg/dl (0.2-1) 02/27/20 04:21 AST 15 U/L (15-37) 02/27/20 04:21 ALT 11 U/L (12-78) L 02/27/20 04:21 Alkaline Phosphatase 77 U/L (45-117) 02/27/20 04:21 Troponin I 0.188 ng/ml (0-0.045) H* 02/27/20 08:29 Total Protein 7.9 gm/dl (6.4-8.2) 02/27/20 04:21 Albumin 3.7 gm/dl (3.4-5.0) 02/27/20 04:21 Globulin 4.2 gm/dl (2.5-4.0) H 02/27/20 04:21 Albumin/Globulin Ratio 0.9 (0.9-2) 02/27/20 04:21 Urine Color Yellow 02/27/20 07:04 Urine Appearance Clear (Clear) 02/27/20 07:04 Urine pH >= 9.0 (4.5-7.5) H 02/27/20 07:04 Ur Specific [place] 1.014 (1.000-1.030) 02/27/20 07:04 Urine Protein 2+ (Negative) H 02/27/20 07:04 Urine Glucose (UA) Negative (Negative) 02/27/20 07:04 Urine Ketones Negative (Negative) 02/27/20 07:04 Urine Blood Negative (Negative) 02/27/20 07:04 Urine Nitrite Negative (Negative) 02/27/20 07:04 Urine Bilirubin Negative (Negative) 02/27/20 07:04 Urine Urobilinogen Negative (Negative) 02/27/20 07:04 Ur Leukocyte Esterase Negative (Negative) 02/27/20 07:04 Urine WBC (Auto) 1-5 /hpf (0-5) 02/27/20 07:04 Urine RBC (Auto) 0-4 /hpf (0-4) 02/27/20 07:04 U Hyaline Cast (Auto) 0 /lpf (0-5) 02/27/20 07:04 U Epithel Cells (Auto) >30 /lpf (0-5) H 02/27/20 07:04 Urine Bacteria (Auto) Negative (Negative) 02/27/20 07:04 COVID-19 Eval Order Covid19 [facility] 02/27/20 10:22 Hepatitis C Ab Screen Neg (Neg) 02/27/20 08:24 SARS-CoV-2, RNA, NAAT NEGATIVE (NEGATIVE) 02/27/20 10:22 PG Care Time/CCT Total # of Minutes Spent Total Time Spent with Patient: Total time spent is greater than 50% in coordination of care (as documented) at patient's floor/unit and/or counseling patient: Coding Level of Care Code 72126 Inpt Consult Level 5 Diagnoses End-stage renal disease on hemodialysis N18.6; Z99.2 Congestive heart failure I50.9 Anemia D64.9
--- NOTE | 2020-02-27 13:56 | Dialysis Progress Note ---
Date of Service February 27, 2020 Assessment & Plan (1) End-stage renal disease on hemodialysis: * HD today for UF and correction of serum potassium * Attempt 4 L UF today (patient is 6 kg above dry weight) * 2K bath to correct hyperkalemia * Recommend low K/diabetic diet * Will reassess need for HD again in am (2) Congestive heart failure: * Recommend trending troponin x 3. Mild elevation likely related to ESRD. Patient is currently CP free * Echocardiogram 02/27/20 reviewed today: No new RWMA * Suspect large IDWG contributing factor. Reinforced need for 1 L/day oral fluid restriction (3) Anemia: * Will provide RONNELL w/ HD today Admission and Anticipated Discharge Date Admission Date: February 27, 2020 Subjective Mrs. Patrick was seen & examined while on HD this afternoon. AVF is functioning well. Qb 400 cc obtained. Hemodynamically stable at this time. Review of Systems Constitutional: + weakness; no fever Physical Exam Constitutional: + obese; not in distress Eyes: PERRL, conjunctivae normal, anicteric sclerae ENMT: external ear and nose normal, oropharynx normal Neck: trachea midline, no thyromegaly Respiratory: Auscultation: + rales Cardiovascular: Rate/Rhythm: regular rate and regular rhythm Extremities: + edema (trace LE edema) and + AV fistula (+ bruit) Gastrointestinal (Abdomen): normal bowel sounds, soft, nontender, no hepatosplenomegaly Skin: no rashes, warm and dry Neurologic: awake; not confused Results & Data ([facility]) Vital Signs (Past 12 Hours) Vital Signs Temp Pulse Pulse Pulse Pulse Resp BP 02/27/20 13:00 56 L 123/61 02/27/20 12:40 55 L 117/79 02/27/20 12:20 58 L 104/53 L 02/27/20 12:00 58 L 134/64 02/27/20 11:40 62 152/69 H 02/27/20 11:23 61 182/74 H 02/27/20 11:14 36.6 C 65 02/27/20 09:52 65 02/27/20 07:42 37.1 C 73 22 02/27/20 07:09 70 18 216/99 H 02/27/20 06:31 69 24 184/78 H 02/27/20 06:01 70 22 177/83 H 02/27/20 05:31 73 20 185/87 H 02/27/20 05:01 75 23 169/83 H 02/27/20 04:56 02/27/20 04:52 72 22 200/101 H 02/27/20 04:02 37.4 C 78 28 H 237/94 H BP Pulse Ox 02/27/20 13:00 02/27/20 12:40 02/27/20 12:20 02/27/20 12:00 02/27/20 11:40 02/27/20 11:23 02/27/20 11:14 02/27/20 09:52 200/84 H 02/27/20 07:42 192/92 H 96 02/27/20 07:09 99 02/27/20 06:31 98 02/27/20 06:01 96 02/27/20 05:31 96 02/27/20 05:01 99 02/27/20 04:56 99 02/27/20 04:52 98 02/27/20 04:02 90 [facility] Procedure Codes (Charges) Renal/Urologic Renal/Urologic: 78952 Hemodialysis, One Evaluation Coding Level of Care Code None Diagnoses End-stage renal disease on hemodialysis N18.6; Z99.2 Congestive heart failure I50.9 Anemia D64.9 CPT Codes Renal/Urologic - Renal/Urologic: 27635 Hemodialysis, One Evaluation ([id number])
[2020-02-27] MEDS: HEPARIN SOD 5,000 UNIT/0.5 ML VIAL SQ SCH ×2 (14:41→21:23)
--- NOTE | 2020-02-27 17:21 | Communication Note ---
Date of Service: February 27, 2020 Saw patient post-HD. joined the visit a few minutes after my arrival. Patient states she "hurts and aches all over". Present for at least 1 week, maybe 2. states her symptoms have been closer to 3-4 weeks or longer. Extreme fatigue - sleeping nearly all day on her non-HD days. Unable to stand without significant assistance. Poor appetite. When asked if it feels like the flu she says "oh yes." No fevers or chills but does stay cold. Has been feeling shaky for several months (tremors). Also with chronic abdominal pain - to have EGD at [facility] soon. She reports having a hiatal hernia. Following HD sessions she doesn't feel any different. Also with bitemporal headaches. states these are "occasional." Muscle fatigue/aches are much worse than the headaches. Of note - symptoms are present ALL day, not just the am or late in day. exam: gen - ill-appearing, very tired, confused (stated she didn't have her HD session yet but indeed she just returned from such) eyes - right pupil is larger than left pupil (3mm on right, 1.5mm on left) - both reactive mouth - MM very dry neck - no lymphadenopathy heart - RRR, s1 s2 lungs - minimal crackles bases b/l; poor airation abd - soft, tender RUQ/epigastric region, BS+, no HSM ext - trace edema b/l, pulses 2+ b/l neuro - significant proximal muscle weakness of shoulders/arms and hips; distal strength (handgrip, foot dorsiflexion/plantarflexion) normal; mild muscle atrophy noted of left hand muscles vascular - right arm fistula with thrill A/P: 1. extreme weakness with notable proximal muscle weakness on examination 2. anorexia 3. myalgias 4. abnormal chest CT - likely pulmonary edema, can't rule out primary pulmonary disease 5. hyperkalemia 6. ESRD on HD - /Wed/Wed 7. chronic hypoxic/hypercarbic respiratory failure on home O2 8. chronic abdominal pain, GERD, hiatal hernia 9. h/o CAD 10. positive troponin 11. hypothyroidism #1 - symptoms worrisome for PMR vs myositis vs systemic illness vs other neuromusclar condition start with ESR, CRP, CPK, B12, folate, TSH if all are negative consider neurology consultation or rheum eval consider lyme testing consider myasthenia w/u #4 - COVID-19 negative #6 - appreciate [facility] nephr assistance for HD needs #8 - multiple studies for such - has gall bladder but prior imaging w/o stones; consider HIDA given RUQ pain/anorexia/etc #10 - no evidence of ischemia; elevated level likely 2nd to ESRD status Sebas Britt MD
[2020-02-27 17:43] LABS: C Reactive Protein 9.99 mg/dl (0-0.29); Thyroid Stimulating Hormone 1.78 uIu/ml (0.300-4.500)
[2020-02-27] MEDS: CALCIUM CARBONATE 1250MG TAB PO SCH (17:46)
[2020-02-27 18:12] LABS: Folate (Folic Acid) 23.55 ng/ml (>5.38)
[2020-02-27] MEDS ORDERED: predniSONE 20 MG TAB PO STA (20:45)
[2020-02-27] MEDS: SUCRALFATE 1 GM/10 ML UDC PO SCH (21:23)
[2020-02-27] MEDS: GABAPENTIN 100 MG CAP PO SCH ×2 (21:28→22:16)
[2020-02-27] MEDS: ESCITALOPRAM OXALATE 20 MG TAB PO SCH (21:28)
[2020-02-27] MEDS: ATORVASTATIN 20 MG TAB PO SCH (21:28)
--- NOTE | 2020-02-27 22:42 | Electrocardiogram Report ---
Test Reason : Blood Pressure : / mmHG Vent. Rate : 076 BPM Atrial Rate : 076 BPM P-R Int : 206 ms QRS Dur : 100 ms QT Int : 376 ms P-R-T Axes : 010 -59 067 degrees QTc Int : 423 ms Normal sinus rhythm Left axis deviation Abnormal ECG When compared with ECG of 07-NOV-2019 11:08, T wave inversion no longer evident in Inferior leads Nonspecific T wave abnormality, improved in Lateral leads Confirmed by Kareem Giang ([id number]) on 02/27/2020 10:42:39 PM Referred By: REFERRED SELF Confirmed By:Kareem Giang
[2020-02-28] MEDS: LEVOTHYROXINE SODIUM 100 MCG TABLET PO SCH (05:38)
[2020-02-28] MEDS: HEPARIN SOD 5,000 UNIT/0.5 ML VIAL SQ SCH ×3 (05:38→16:50)
--- NOTE | 2020-02-28 07:13 | CT Scan Report ---
HEAD CT NONCONTRAST CT DOSE: 614.27 mGy.cm HISTORY: extreme weakness, asymmetric pupils TECHNIQUE: Multiaxial CT images of the head were performed without the use of intravenous contrast. A utomated exposure control was utilized for this study. A dose lowering technique was utilized adheri ng to the principles of ALARA. Comparison: Head CT 09/30/2015. Findings: The paranasal sinuses and mastoid air cells are clear. The calvarium and skull base are int act. There is no mass, hematoma, midline shift, acute infarct. White matter hypodensity is nonspecifi c but suggestive of microvascular ischemic change. The ventricles and sulci demonstrate mild age-rela zeina involutional changes. Impression: No acute intracranial abnormality. ACT 112: Negative or not required by law. Electronically signed by: Carter Westfall M.D. 02/28/2020 7:12 AM
[2020-02-28 07:24] LABS: Basophils # (auto) 0.03 K/uL (0-0.2); Basophils % (auto) 0.4 %; Eosinophils # (auto) 0.13 K/uL (0-0.5); Eosinophils % (auto) 1.6 %; Hematocrit (blood only) 29.9 % (37-47); Hemoglobin 9.1 g/dL (12.0-16.0); Immature Granulocytes # (auto) 0.03 K/uL (0.00-0.02); Immature Granulocytes % (auto) 0.4 %; Lymphocytes # (auto) 0.64 K/uL (1.2-3.4); Mean Corpuscular Hgb Conc 30.4 g/dL (32-36); Mean Corpuscular Volume 105.3 fL (80-100); Mean Platelet Volume 10.1 fL (7.4-10.4); Monocytes # (auto) 0.68 K/uL (0.11-0.59); Monocytes % (auto) 8.5 %; Neutrophils # (auto) 6.52 K/uL (1.4-6.5); Neutrophils % (auto) 81.1 %; Platelet Count 158 K/uL (130-400); RDW Coefficient of Variation 15.4 % (11.5-14.5); RDW Standard Deviation 59.1 fL (36.4-46.3); Red Blood Count 2.84 M/uL (4.2-5.4); White Blood Count 8.03 K/uL (4.8-10.8)
--- NOTE | 2020-02-28 07:41 | Ultrasound Report ---
ABDOMINAL ULTRASOUND, RIGHT UPPER QUADRANT HISTORY: RUQ abd pain; eval findings of cholecystitis. COMPARISON: Abdomen and pelvis CT 11/07/2019. FINDINGS: Pancreas: The pancreatic head and tail are obscured by overlying bowel gas. The remaining portions of the pancreas are within normal limits. Liver: Unremarkable. Gallbladder: No gallbladder wall thickening. No gallstones. CBD: 5 mm. Right kidney: Atrophic and echogenic measuring 8.8 cm. No hydronephrosis. This remains unchanged. IMPRESSION: 1. Normal gallbladder. No gallstones. 2. Atrophic right kidney, unchanged. ACT 112: Negative or not required by law. Electronically signed by: Carter Westfall M.D. 02/28/2020 7:40 AM
[2020-02-28 08:07] LABS: BUN Creatinine Ratio 6.3 (10-20); Calcium 9.2 mg/dl (8.5-10.1); Creatinine Clr Calc Pharmacy 10.3 ml/min; Est GFR (African American) 8.6; Est GFR (Non-African American) 7.4
[2020-02-28] MEDS: INSULIN ASPART 100 UNITS/ML 3 ML PEN SC SCH ×4 (08:25→20:26)
[2020-02-28] MEDS: LORATADINE 10 MG TAB PO SCH (08:25)
[2020-02-28] MEDS: INSULIN DETEMIR FLEXPEN/FLEX TOUCH 100 UNITS/ML 3ML SQ SCH ×2 (08:25→20:28)
[2020-02-28] MEDS: CALCIUM ACETATE 667 MG CAP/TAB PO SCH ×3 (08:25→16:55)
[2020-02-28] MEDS: MAGNESIUM OXIDE 400 MG TAB PO SCH (08:26)
[2020-02-28] MEDS: carvediloL 25 MG TAB PO SCH ×2 (08:26→16:54)
[2020-02-28] MEDS: PANTOprazole 40 MG TAB PO SCH ×2 (08:27→20:31)
[2020-02-28] MEDS: FENOFIBRATE NANOCRYSTALLIZED 48 MG TABLET PO SCH (08:27)
[2020-02-28] MEDS: ASPIRIN 81 MG ECTAB PO SCH (08:27)
[2020-02-28] MEDS: SUCRALFATE 1 GM/10 ML UDC PO SCH ×4 (08:27→20:27)
[2020-02-28] MEDS: GABAPENTIN 100 MG CAP PO SCH ×2 (08:27→20:29)
[2020-02-28] MEDS: FLUTICASONE PROPIONATE NA SPR 16 GM BTL NAE SCH (08:28)
[2020-02-28 08:29] LABS: Estimated Average Glucose 117 mg/dl; Hemoglobin A1C 5.7 % (4.5-5.6)
[2020-02-28] MEDS: cefTRIAXone SODIUM 2,000 MG in DEXTROSE 5% 50 ML IV SCH (08:29)
[2020-02-28] MEDS ORDERED: SODIUM CHLORIDE 0.9% 1000ML 1,000 ML IV PRN (09:17)
[2020-02-28] MEDS ORDERED: HEPARIN SOD (PORCINE) 1000 UNIT/ML 10 ML VIAL IV ONE (09:17)
--- NOTE | 2020-02-28 09:21 | Hospitalist Progress Note ---
Date of Service February 28, 2020 Assessment & Plan (1) Polymyalgia rheumatica: Patient's presenting symptoms - diffuse myalgias, significant proximal muscle weakness of arms/legs, "flu-like" symptoms for several weeks, and DRAMATIC response to low-dose prednisone overnight is highly suggestive of PMR. Her sed rate and crp were also elevated supportive of the diagnosis. Her proximal muscle weakness and myalgias improved markedly overnight. Of note - CPK, B12 level, COVID-19 test - all negative/normal. No symptoms to suggest SLE. Lower prednisone dose to 10mg/day. Keep on this dose after discharge and will refer to [facility] for ongoing management. Cont PPI for GI prophylaxis along with carafate. (2) End-stage renal disease on hemodialysis: Appreciate [facility] nephrology with HD assistance. To have additional HD today for volume overload. (3) Hyperkalemia, diminished renal excretion: Resolved s/p HD yesterday. (4) Chronic respiratory failure with hypoxia: Stable on home O2 amount of 3 L NC. Suspect 2nd to restrictive lung disease, pulmonary HTN, etc. OHS? (5) Abnormal chest CT: CT at admission largely with pulmonary edema. Could not exclude a superimposed infectious process. Place on rocephin. Blood cx's sent. Will continue empiric rocephin until tomorrow. Repeat cxr in am. If cxr tomorrow fails to show pneumonia, and if blood cx's are negative, will d/c antibiotics. COVID-19 test negative. (6) Restrictive lung disease: noted (7) Cardiomyopathy: Previous EF was ~40%; now 55-60%. (8) Hypothyroidism: TSH wnl cont synthroid (9) Coronary artery disease: minimal nonobstructive on 2019 cath - performed by Dr Qureshi. cont statin, asa, beta ramesh for secondary prevention. (10) Anemia: 2nd ESRD. Iron management, etc - defer to nephrology. (11) Diabetes mellitus: Controlled. Cont lantus/novolog. (12) Hypertension: was uncontrolled, but improving with serial HD sessions. continue home regimen of meds. (13) Morbid obesity with BMI of 40.0-44.9, adult: BMI 40-41 (14) DVT prophylaxis: heparin 7500 units - change to BID dosing due to ESRD updated I am very pleased with her improvement obtain PT/OT consults Admission and Anticipated Discharge Date Admission Date: February 27, 2020 Subjective Patient feels dramatically better today. Diffuse myalgias are improved. She can lift her arms up above her head, and she can move in the bed much more easily. She is able to lift her legs up off the bed easily. states he came to see her early this am and she was "sitting up eating breakfast at the side of the bed - I couldn't believe it." Voice is stronger. Energy significantly improved. She even had an appetite this am. Tele overnight wnl. Dyspnea about at baseline. To receive additional HD today. Review of Systems Constitutional: no fever, no chills, no body aches, no fatigue and no anorexia Respiratory: no cough Cardiovascular: no chest pain Gastrointestinal: + abdominal pain (mild); no nausea and no vomiting Physical Exam Constitutional: + obese; no acute distress and no altered mental status looks MUCH BETTER TODAY - strong voice, more energy - a different person today Eyes: right pupil larger than left pupil - no change from yesterday; suspect chronic ENMT: Mouth: + dry oral mucous membranes (but slightly improved from yesterday) Respiratory: Auscultation: + diminished lung sounds (bases) and + crackles (faint bases) Cardiovascular: Rate/Rhythm: regular rate and regular rhythm Heart Sounds: normal S1 and normal S2 Vessels: + JVD (mild), posterior tibial pulses present and dorsalis pedis pulses present Extremities: + AV fistula (right arm ); no edema Gastrointestinal (Abdomen): normal bowel sounds, soft, nontender, no hepatosplenomegaly Neurologic: strength: proximal muscle weakness of shoulders and hips is RESOLVED today; patient can easily lift arms above head - 5/5 strength. Hip flexion near 5/5 b/l. ankle dorsiflexion/plantarflexion wnl. Psychiatric: A+Ox3, euthymic affect Results & Data Results & Data ([facility]) Vital Signs (Past 12 Hours) Vital Signs Temp Pulse Resp BP Pulse Ox 02/28/20 07:54 37.1 C 64 18 158/80 H 94 02/28/20 03:22 36.6 C 56 L 19 167/69 H 99 02/27/20 23:31 36.7 C 62 18 149/71 H 100 Laboratory Results Laboratory Results - last 24 hr 02/27/20 02/27/20 02/27/20 08:24 08:29 09:55 WBC RBC Hgb Hct MCV MCH MCHC RDW Std Deviation RDW Coeff of Jared Plt Count MPV Immature Gran % (Auto) Neut % (Auto) Lymph % (Auto) [place] % (Auto) Eos % (Auto) Baso % (Auto) Neut # (Auto) Lymph # (Auto) [place] # (Auto) Eos # (Auto) Baso # (Auto) Immature Gran # (Auto) ESR Sodium Potassium Chloride Carbon Dioxide Anion Gap BUN Creatinine Est Cr Clr Drug Dosing Est GFR ( Amer) Est GFR (Non-Af Amer) BUN/Creatinine Ratio Glucose POC Glucose 136 H Estimat Average Glucose Hemoglobin A1c Calcium Ammonia Total Creatine Kinase Troponin I 0.188 H* C-Reactive Protein Vitamin B12 Folate [facility] COVID-19 Eval Order Hepatitis C Ab Screen Neg SARS-CoV-2, RNA, NAAT 02/27/20 02/27/20 02/27/20 10:22 10:22 16:03 WBC RBC Hgb Hct MCV MCH MCHC RDW Std Deviation RDW Coeff of Jared Plt Count MPV Immature Gran % (Auto) Neut % (Auto) Lymph % (Auto) [place] % (Auto) Eos % (Auto) Baso % (Auto) Neut # (Auto) Lymph # (Auto) [place] # (Auto) Eos # (Auto) Baso # (Auto) Immature Gran # (Auto) ESR Sodium Potassium Chloride Carbon Dioxide Anion Gap BUN Creatinine Est Cr Clr Drug Dosing Est GFR ( Amer) Est GFR (Non-Af Amer) BUN/Creatinine Ratio Glucose POC Glucose Estimat Average Glucose Hemoglobin A1c Calcium Ammonia Total Creatine Kinase Troponin I 0.175 H* C-Reactive Protein Vitamin B12 Folate [facility] COVID-19 Eval Order Covid19 [facility] Hepatitis C Ab Screen SARS-CoV-2, RNA, NAAT NEGATIVE 02/27/20 02/27/20 02/27/20 16:15 17:03 17:03 WBC RBC Hgb Hct MCV MCH MCHC RDW Std Deviation RDW Coeff of Jared Plt Count MPV Immature Gran % (Auto) Neut % (Auto) Lymph % (Auto) [place] % (Auto) Eos % (Auto) Baso % (Auto) Neut # (Auto) Lymph # (Auto) [place] # (Auto) Eos # (Auto) Baso # (Auto) Immature Gran # (Auto) ESR 35 H Sodium Potassium Chloride Carbon Dioxide Anion Gap BUN Creatinine Est Cr Clr Drug Dosing Est GFR ( Amer) Est GFR (Non-Af Amer) BUN/Creatinine Ratio Glucose POC Glucose 88 Estimat Average Glucose Hemoglobin A1c Calcium Ammonia 11.8 Total Creatine Kinase Troponin I C-Reactive Protein Vitamin B12 Folate TSH COVID-19 Eval Order Hepatitis C Ab Screen SARS-CoV-2, RNA, NAAT 02/27/20 02/27/20 02/27/20 17:03 17:03 20:10 WBC RBC Hgb Hct MCV MCH MCHC RDW Std Deviation RDW Coeff of Jared Plt Count MPV Immature Gran % (Auto) Neut % (Auto) Lymph % (Auto) [place] % (Auto) Eos % (Auto) Baso % (Auto) Neut # (Auto) Lymph # (Auto) [place] # (Auto) Eos # (Auto) Baso # (Auto) Immature Gran # (Auto) ESR Sodium Potassium Chloride Carbon Dioxide Anion Gap BUN Creatinine Est Cr Clr Drug Dosing Est GFR ( Amer) Est GFR (Non-Af Amer) BUN/Creatinine Ratio Glucose POC Glucose 115 H Estimat Average Glucose Hemoglobin A1c Calcium Ammonia Total Creatine Kinase 67 Troponin I C-Reactive Protein 9.99 H Vitamin B12 612 Folate 23.55 TSH 1.780 COVID-19 Eval Order Hepatitis C Ab Screen SARS-CoV-2, RNA, NAAT 02/28/20 02/28/20 02/28/20 07:00 07:00 07:00 WBC 8.03 RBC 2.84 L Hgb 9.1 L Hct 29.9 L MCV 105.3 H MCH 32.0 MCHC 30.4 L RDW Std Deviation 59.1 H RDW Coeff of Jared 15.4 H Plt Count 158 MPV 10.1 Immature Gran % (Auto) 0.4 Neut % (Auto) 81.1 Lymph % (Auto) 8.0 [place] % (Auto) 8.5 Eos % (Auto) 1.6 Baso % (Auto) 0.4 Neut # (Auto) 6.52 H Lymph # (Auto) 0.64 L [place] # (Auto) 0.68 H Eos # (Auto) 0.13 Baso # (Auto) 0.03 Immature Gran # (Auto) 0.03 H ESR Sodium 137 Potassium 5.0 D Chloride 102 Carbon Dioxide 28 Anion Gap 8.0 BUN 33 H Creatinine 5.30 H* D Est Cr Clr Drug Dosing 10.3 Est GFR ( Amer) 8.6 Est GFR (Non-Af Amer) 7.4 BUN/Creatinine Ratio 6.3 L Glucose 82 POC Glucose Estimat Average Glucose 117 Hemoglobin A1c 5.7 H Calcium 9.2 Ammonia Total Creatine Kinase Troponin I C-Reactive Protein Vitamin B12 Folate TSH COVID-19 Eval Order Hepatitis C Ab Screen SARS-CoV-2, RNA, NAAT 02/28/20 07:36 WBC RBC Hgb Hct MCV MCH MCHC RDW Std Deviation RDW Coeff of Jared Plt Count MPV Immature Gran % (Auto) Neut % (Auto) Lymph % (Auto) [place] % (Auto) Eos % (Auto) Baso % (Auto) Neut # (Auto) Lymph # (Auto) [place] # (Auto) Eos # (Auto) Baso # (Auto) Immature Gran # (Auto) ESR Sodium Potassium Chloride Carbon Dioxide Anion Gap BUN Creatinine Est Cr Clr Drug Dosing Est GFR ( Amer) Est GFR (Non-Af Amer) BUN/Creatinine Ratio Glucose POC Glucose 88 Estimat Average Glucose Hemoglobin A1c Calcium Ammonia Total Creatine Kinase Troponin I C-Reactive Protein Vitamin B12 Folate TSH COVID-19 Eval Order Hepatitis C Ab Screen SARS-CoV-2, RNA, NAAT PG Care Time/CCT Total # of Minutes Spent Total Time Spent with Patient: Total time spent is greater than 50% in coordination of care (as documented) at patient's floor/unit and/or counseling patient: Coding Level of Care Code 93669 Subseq Hosp Care Lvl 3 Diagnoses Polymyalgia rheumatica M35.3 End-stage renal disease on hemodialysis N18.6; Z99.2 Hyperkalemia, diminished renal excretion E87.5 Chronic respiratory failure with hypoxia J96.[address] R93.89 Restrictive lung disease J98.4 Cardiomyopathy I42.9 Hypothyroidism E03.9 Coronary artery disease I25.10 Anemia D64.9 Diabetes mellitus E11.9 Hypertension I10 Morbid obesity with BMI of 40.0-44.9, adult E66.01; Z68.41 DVT prophylaxis Z29.9
--- NOTE | 2020-02-28 10:51 | Nephrology Progress Note ---
Date of Service February 28, 2020 Assessment & Plan (1) End-stage renal disease on hemodialysis: * 2 hr HD today for 2 L UF * Repeat CXR in am * Will reassess need for HD again in am * Recommend low K/diabetic diet (2) Congestive heart failure: * Troponin is trending down. Mild elevation likely related to ESRD. Patient is currently CP free * Echocardiogram 02/27/20 reviewed today: No new RWMA * Suspect large IDWG contributing factor. Reinforced need for 1 L/day oral fluid restriction (3) Anemia: * RONNELL given w/ HD 02/27/20 Admission and Anticipated Discharge Date Admission Date: February 27, 2020 Subjective Mrs. Patrick was seen & examined in her hospital room this morning. She was dialyzed yesterday for 4 hours w/ 3.8 L UF. There were no complications. Mrs. Patrick reports that her breathing is improved. She remains mildly dyspneic and is still 3 kg above her EDW. She is back to her baseline 3 L O2 via NC Review of Systems Constitutional: + weakness; no fever Eyes: no worsening vision Respiratory: + dyspnea Cardiovascular: no chest pain Gastrointestinal: no abdominal pain, no nausea and no diarrhea/loose stools Physical Exam Constitutional: + obese; not in distress Eyes: PERRL, conjunctivae normal, anicteric sclerae ENMT: external ear and nose normal, oropharynx normal Neck: trachea midline, no thyromegaly Respiratory: Auscultation: + rales Cardiovascular: Rate/Rhythm: regular rate and regular rhythm Extremities: + edema (trace LE edema) and + AV fistula (+ bruit) Gastrointestinal (Abdomen): normal bowel sounds, soft, nontender, no hepatosplenomegaly Skin: no rashes, warm and dry Neurologic: awake; not confused Results & Data ([facility]) Vital Signs (Past 12 Hours) Vital Signs Temp Pulse Pulse Resp BP BP Pulse Ox 02/28/20 10:06 60 174/69 H 02/28/20 09:56 37.1 C 61 02/28/20 07:54 37.1 C 64 18 158/80 H 94 02/28/20 03:22 36.6 C 56 L 19 167/69 H 99 02/27/20 23:31 36.7 C 62 18 149/71 H 100 Laboratory Results Laboratory Tests 02/28/20 02/28/20 02/28/20 07:00 07:00 07:00 WBC 8.03 Hgb 9.1 L Hct 29.9 L Plt Count 158 Sodium 137 Potassium 5.0 D Chloride 102 Carbon Dioxide 28 BUN 33 H Creatinine 5.30 H* D Estimat Average Glucose 117 Hemoglobin A1c 5.7 H Calcium 9.2 PG Care Time/CCT Total # of Minutes Spent Total Time Spent with Patient: Total time spent is greater than 50% in coordination of care (as documented) at patient's floor/unit and/or counseling patient: Coding Level of Care Code 67416 Subseq Hosp Care Lvl 3 Diagnoses End-stage renal disease on hemodialysis N18.6; Z99.2 Congestive heart failure I50.9 Anemia D64.9
[2020-02-28] MEDS: predniSONE 10 MG TABLET PO SCH (13:38)
[2020-02-28] MEDS: NEPHROCAPS PO SCH (13:39)
[2020-02-28] MEDS: CALCIUM CARBONATE 1250MG TAB PO SCH (16:53)
[2020-02-28] MEDS: ATORVASTATIN 20 MG TAB PO SCH (20:29)
[2020-02-28] MEDS: ESCITALOPRAM OXALATE 20 MG TAB PO SCH (20:30)
[2020-02-29] MEDS: HEPARIN SOD 5,000 UNIT/0.5 ML VIAL SQ SCH (05:15)
[2020-02-29] MEDS: LEVOTHYROXINE SODIUM 100 MCG TABLET PO SCH (05:30)
[2020-02-29 07:01] LABS: Basophils # (auto) 0.02 K/uL (0-0.2); Basophils % (auto) 0.3 %; Eosinophils # (auto) 0.02 K/uL (0-0.5); Eosinophils % (auto) 0.3 %; Hematocrit (blood only) 29.9 % (37-47); Hemoglobin 9.1 g/dL (12.0-16.0); Immature Granulocytes # (auto) 0.04 K/uL (0.00-0.02); Immature Granulocytes % (auto) 0.6 %; Lymphocytes # (auto) 0.92 K/uL (1.2-3.4); Lymphocytes % (auto) 13.3 %; Mean Corpuscular Hemoglobin 31.6 pg (25-34); Mean Corpuscular Hgb Conc 30.4 g/dL (32-36); Mean Corpuscular Volume 103.8 fL (80-100); Mean Platelet Volume 10.2 fL (7.4-10.4); Monocytes # (auto) 0.88 K/uL (0.11-0.59); Monocytes % (auto) 12.8 %; Neutrophils # (auto) 5.02 K/uL (1.4-6.5); Neutrophils % (auto) 72.7 %; Platelet Count 195 K/uL (130-400); RDW Coefficient of Variation 15.1 % (11.5-14.5); Red Blood Count 2.88 M/uL (4.2-5.4)
[2020-02-29] MEDS: INSULIN ASPART 100 UNITS/ML 3 ML PEN SC SCH (07:55)
[2020-02-29 07:58] LABS: BUN Creatinine Ratio 9.3 (10-20); Calcium 8.9 mg/dl (8.5-10.1); Creatinine Clr Calc Pharmacy 10.6 ml/min; Est GFR (African American) 8.8; Est GFR (Non-African American) 7.6; Potassium 5.1 mmol/L (3.5-5.1)
[2020-02-29] MEDS: INSULIN DETEMIR FLEXPEN/FLEX TOUCH 100 UNITS/ML 3ML SQ SCH (08:01)
[2020-02-29] MEDS: FLUTICASONE PROPIONATE NA SPR 16 GM BTL NAE SCH (08:01)
[2020-02-29] MEDS: PANTOprazole 40 MG TAB PO SCH (08:02)
[2020-02-29] MEDS: CALCIUM ACETATE 667 MG CAP/TAB PO SCH (08:02)
[2020-02-29] MEDS: FENOFIBRATE NANOCRYSTALLIZED 48 MG TABLET PO SCH (08:02)
[2020-02-29] MEDS: MAGNESIUM OXIDE 400 MG TAB PO SCH (08:02)
[2020-02-29] MEDS: ASPIRIN 81 MG ECTAB PO SCH (08:02)
[2020-02-29] MEDS: LORATADINE 10 MG TAB PO SCH (08:02)
[2020-02-29] MEDS: GABAPENTIN 100 MG CAP PO SCH (08:04)
[2020-02-29] MEDS: predniSONE 10 MG TABLET PO SCH (08:04)
[2020-02-29] MEDS: carvediloL 25 MG TAB PO SCH (08:04)
[2020-02-29] MEDS: SUCRALFATE 1 GM/10 ML UDC PO SCH (08:05)
--- NOTE | 2020-02-29 08:24 | XRay Report ---
SINGLE VIEW CHEST CLINICAL HISTORY: Congestive heart failure. FINDINGS: An AP, portable, upright chest radiograph is compared to chest x-ray and chest CT dated 01/30. The heart is enlarged noting atherosclerotic calcification of the thoracic aorta. The pulmona ry vasculature is noncongested. The mitral annulus is densely calcified. Chronic interstitial thicken ing is similar to previous. Mild atelectasis is noted at the lung bases. Trace pleural effusions are suspected. There is no airspace consolidation typical for pneumonia. No pneumothorax is seen. The ske letal structures are osteopenic. The bony thorax is grossly intact. Surgical clips are seen in the up per abdomen. IMPRESSION: 1. Cardiomegaly without radiographic evidence of congestive failure. 2. Suspect trace pleural effusions. ACT 112: Negative or not required by law. Electronically signed by: Derek Low M.D. 02/29/2020 8:23 AM
[2020-02-29] MEDS ORDERED: HEPARIN SOD (PORCINE) 1000 UNIT/ML 10 ML VIAL IV ONE (09:02)
[2020-02-29] MEDS ORDERED: SODIUM CHLORIDE 0.9% 1000ML 1,000 ML IV PRN (09:02)
[2020-02-29] MEDS ORDERED: HEPARIN SOD (PORCINE) 1000 UNIT/ML 10 ML VIAL IV SCH (09:15)
--- NOTE | 2020-02-29 10:01 | Discharge Summary ---
Date of Service date of admission - February 27, 2020 date of discharge - February 29, 2020 Admission HPI Per Admitting Provider The patient is a 74-year-old female with a past medical history including restrictive lung disease, cardiomyopathy, left bundle branch block, ESRD on HD, anxiety with depression, diabetic retinopathy, dyslipidemia, GERD without esophagitis, insomnia, TASH, polyarthritis, vitamin D deficiency, chronic diastolic heart failure, hypothyroidism, CAD, diabetes mellitus and hypertension. The patient reports that she has been feeling relatively unwell over the past 3 to 4 weeks, in particular over the past 4 days she has developed significant weakness to the point of not being able to get out of bed. She has generalized worsening of her usual myalgias and arthralgias. Apparently potential sick exposures are when she goes to dialysis. She has had some int ermittent loose stools. She does still produce some urine, though she reports it is unchanged. She typically wears 3 L of oxygen at home, and is requiring 4 L to feel more comfortable over the past few days. Principal Diagnosis 1. suspected polymyalgia rheumatica 2. volume overload / pulmonary edema 2nd to ESRD Discharge Exam Constitutional + obese; no acute distress and no altered mental status ENMT external ear and nose normal, oropharynx normal Respiratory Auscultation: + diminished lung sounds (bases - but much improved from prior exams); no crackles and no wheezes Cardiovascular Rate/Rhythm: regular rate and regular rhythm Heart Sounds: normal S1 and normal S2 Vessels: posterior tibial pulses present and dorsalis pedis pulses present; no JVD Extremities: + AV fistula (right arm ); no edema Gastrointestinal (Abdomen) normal bowel sounds, soft, nontender, no hepatosplenomegaly Neurologic no proximal muscle weakness of shoulders or hips; strength 5/5 of these muscle groups. Handgrip and ankle dorsiflexion/plantarflexion 5/5 strength. Psychiatric A+Ox3, euthymic affect Discharge Data Allergies Allergy/AdvReac Type Severity Reaction Status Date / Time lisinopril AdvReac Intermediate cough Verified 02/27/20 04:20 Consultations nephrology - Payam Stephenson MD PT Ordered Studies 02/27/20 06:26 CT chest wo con Stat IMPRESSION: 1. Interlobular septal thickening indicative of interstitial pulmonary edema. Additional groundglass opacities may reflect pulmonary edema as well as less likely a superimposed infectious process. 2. Trace bilateral pleural effusions with airspace opacities that favor atelectasis. 3. Mild dilatation of the central pulmonary arteries raises the possibility of pulmonary arterial hypertension. Moderate cardiomegaly. 4. Mildly enlarged mediastinal lymph nodes which are nonspecific but may related to pulmonary edema. 02/27/20 17:55 CT head/brain wo con Routine - no acute process. US gallbladder Routine - no gallstones; normal gall bladder architecture. CBD 5mm. Atrophic right kidney. Echocardiogram: * EF 55-60% * no regional wall motion abnormalities * septal flattening during diastole suggests RV overload * moderate LVH * mildly dilated RV with normal systolic function * biatrial dilation * mild-moderate tricuspid regurgitation * severe mitral annular calcification * moderate pulmonary HTN * in comparison to 12/2018 echo - LV function has improved (previous EF 20-25%) Hospital Course (1) Pulmonary edema: Examination and imaging at time of admission were consistent with pulmonary edema/volume overload. Echo this admission showed intact LV function. This was a significant improvement from her prior echo 1 year ago. She received HD sessions x 2 with improved pulmonary status and examination. Discharge weight was 100.7kg. She lost at least 5-6kg of weight with serial HD sessions. On day of discharge the patient will report to the [place] dialysis center for her regularly scheduled HD treatment (she is on //Wed schedule). [facility] [place]phrology, Dr Stephenson, provided HD assistance while here. The patient was counseled on importance of daily weights, fluid restriction, and salt restriction. (2) Polymyalgia rheumatica: Suspected. Patient's presenting symptoms - diffuse myalgias, significant proximal muscle weakness of arms/legs, "flu-like" symptoms for several weeks, difficulty standing and walking, severe fatigue, and DRAMATIC response to low-dose prednisone in <24 hours was suggestive of PMR. Her sed rate and crp were elevated supportive of the diagnosis. Her proximal muscle weakness and myalgias improved markedly with just 1 dose of prednisone. Of note - CPK, B12 level, COVID-19 test - all negative/normal. No symptoms to suggest SLE. She continued on 10mg/day of prednisone and will remain on this dose at discharge. Referral was made to [facility]ology for ongoing management. She will continue PPI for GI prophylaxis. (3) End-stage renal disease on hemodialysis: as above in "pulmonary edema" [facility] [place] Nephrology provides outpatient HD coordination. Usual schedule - //Wednesday. (4) Hyperkalemia, diminished renal excretion: Resolved s/p HD x 2. (5) Chronic respiratory failure with hypoxia: Stable on home O2 amount of 3 L NC. Suspect 2nd to restrictive lung disease, pulmonary HTN, etc. Does patient also have obesity-hypoventilation syndrome? (6) Abnormal chest CT: CT at admission largely with pulmonary edema. Could not exclude a superimposed infectious process. Initially placed on IV rocephin. Blood cx's sent and remained negative during her stay. COVID-19 test was negative. Repeat cxr on 02/29/20 showed near resolution of all infiltrates suggesting that her lung findings were from pulmonary edema. Antibiotics were discontinued at time of discharge. (7) Restrictive lung disease: (8) Cardiomyopathy: Previous EF was ~20-25% in 2019; now 55-60%. Remains on coreg 25mg BID. Continue hydralazine. (9) Hypothyroidism: TSH wnl cont synthroid (10) Coronary artery disease: minimal nonobstructive CAD on 2019 cath - performed by Dr Qureshi. cont statin, asa, beta ramesh for secondary prevention. (11) Anemia: 2nd ESRD. Iron management, etc - defer to nephrology. Hb at discharge 9.1. (12) Diabetes mellitus: Controlled. Cont levemir. HbA1C = 5.7% but may not be accurate given anemia of chronic disease from ESRD. (13) Hypertension: Was uncontrolled at time of admission but improved gradually with serial HD sessions. Continue home regimen of meds. (14) Morbid obesity with BMI of 40.0-44.9, adult: BMI 40-41 Total Time Total Time Spent Total Time Spent (In Minutes): 40 Total Time Includes: Examination of the Patient, Discharge Planning, Medication Reconciliation and Communication With Other Providers Discharge Plan Discharge Items Patient Disposition: Home - Home Health Services Reason For Visit: Severe weakness; fluid overload Discharge Diagnosis: 1. severe weakness, fatigue, muscle aches -- suspected "polymyalgia rheumatica" (PMR for short) 2. fluid overload -- improved following multiple dialysis sessions Activity: Resume your previous activity Non-emergency contact: Primary Care Provider and Specialist Call non-emergency contact if: you have any medication questions, your symptoms worsen and you have a fever Follow-up/Referrals: Julito Burt MD [Primary Care Provider] - 03/07/20 10:00 am (see Dr Burt within a week for new diagnosis of PMR and other chronic issues ) Stewart Ramirez MD [Physician] - 05/23/20 9:00 am (Dr Ramirez or his partner - 2 weeks, if available - dx: PMR. ) Diet: Carb Consistent or DM2, Dialysis Renal and Heart Healthy Fluids: 1500ml (6 cups) Addtl Attending Provider Instructions: You were admitted to the hospital because of extreme weakness, fatigue, muscle aches, difficulty standing, poor appetite, difficulty raising your arms and legs, etc. You also had evidence of excess fluid build-up in the lungs. We checked a number of tests because of your symptoms. COVID-19 test was negative. Blood cultures were negative (no infection in the blood). B12 and folate levels were normal. Thyroid function was normal. CAT scan of brain was normal. Gall bladder sonogram was normal. A muscle test called "CPK" was normal. Ammonia level was normal. Urinalysis was normal - no indication of urinary infection. CAT scan of lungs showed fluid but no obvious pneumonia or tumors. Ultimately we found that your "inflammatory blood tests" (Sed rate and CRP levels) were both elevated. We gave you a small dose of prednisone and less than 24 hours later your muscles aches, weakness of arms/legs, etc were all dramatically improved. This would point us towards a diagnosis called "polymyalgia rheumatica." AKA - "PMR." This condition is treated with prednisone and can take 12-18 months of treatment to fully resolve. We are referring you to a corrugator helper to manage the condition. Dr Burt can also assist in the management. For your fluid overload in the lungs Dr Stephenson performed several dialysis sessions with significant improvement. Recommendations - 1. take prednisone 10mg every morning with breakfast. 2. take sucralfate 1gm twice daily for 7 days. 3. LOWER your gabapentin to 300mg twice a day. This medication can cause sleepiness when you have sick kidneys. The dose has to often be lowered when you are on dialysis. 4. be sure to let your GI doctors know that you are now taking prednisone. 5. follow-up -- report to [place] today for regularly scheduled dialysis. 6. appointments -- see separate section. 7. get your flu shot as soon as possible. 8. wear a mask any time you leave your home, wash your hands frequently, and continue to practice social distancing to avoid ally the coronavirus (COVID-19). Return to [facility] if - * you have fever over 100 degrees * you have worsening shortness of breath * you have worsening abdominal pain * any other concerns Pending Studies at Discharge: Yes Studies:: blood cultures, but thus far negative Stand-Alone Forms: My [facility], Smoking Cessation Medications and DC Order Prescriptions: New prednisone 10 mg Tablet 10 mg PO DAILY Qty: 30 RF: 5 sucralfate [Carafate] 1 gram tablet 1 g PO BID 7 Days Qty: 14 RF: 0 (DME) Oxygen Home Liters Per Minute See Rx Instructions .ROUTE .MEDSUPPLY Qty: 1 RF: 0 Continued (DME) OneTouch Ultra Blue Test Strip Strip See Rx Instructions .ROUTE .MEDSUPPLY Qty: 100 RF: 5 (DME) pen needle, diabetic [BD Ultra-Fine Short Pen Needle] 31 gauge x 5/16" needle See Dose Instructions .ROUTE .MEDSUPPLY Qty: 60 RF: 5 Levemir FlexTouch U-100 Insuln 100 unit/mL (3 mL) insulin pen 20 units subcut BID Qty: 15 RF: 5 carvedilol 25 mg tablet 25 mg PO BID Qty: 180 RF: 1 atorvastatin 20 mg tablet 20 mg PO HS Qty: 90 RF: 1 Hold Instructions: muscle pain levothyroxine 100 mcg tablet 100 mcg PO DAILY Qty: 90 RF: 1 pantoprazole 40 mg tablet,delayed release (DR/EC) 40 mg PO BID 90 Days Qty: 180 RF: 1 fenofibrate nanocrystallized [Tricor] 48 mg tablet 48 mg PO DAILY Qty: 90 RF: 2 hydralazine 25 mg tablet 25 mg PO TID 90 Days Qty: 270 RF: 1 ondansetron HCl [Zofran] 8 mg tablet 8 mg PO Q8H Qty: 90 RF: 2 lorazepam 0.5 mg tablet 0.5 mg PO BID PRN (Reason: anxiety; difficulty swallowing) Qty: 30 RF: 0 loratadine [Claritin] 10 mg tablet 10 mg PO DAILY Qty: 30 RF: 3 fluticasone propionate [Flonase Allergy Relief] 50 mcg/actuation spray,suspension 2 sprays INTNAS DAILY Qty: 9.9 RF: 3 tramadol 50 mg tablet 50 mg PO DAILY PRN (Reason: pain) Qty: 30 RF: 0 escitalopram oxalate [Lexapro] 20 mg tablet 20 mg PO HS Qty: 90 RF: 3 magnesium oxide 400 mg magnesium capsule 400 mg PO QAM RF: 0 calcium carbonate [Calcium 500] 500 mg calcium (1,250 mg) tablet 500 mg PO QDD RF: 0 acetaminophen [Tylenol Extra Strength] 500 mg Tablet 1,000 mg PO Q6H PRN (Reason: Pain) RF: 0 ProRenal 8 mg iron-800 mcg-1,000 unit tablet 1 tab PO QDL RF: 0 aspirin 81 mg Tablet,Delayed Release (Dr/Ec) 81 mg PO QAM RF: 0 calcium acetate(phosphat bind) 667 mg capsule 667 mg PO TIDM RF: 0 Changed gabapentin 300 mg capsule 300 mg PO BID Qty: 60 RF: 5 Discharge Orders: Discharge Order (Routine); Ordered 02/29/20 Ordered By: Sebas Palma/Other Patient Handouts: Understanding Polymyalgia Rheumatica, Treatment for Polymyalgia Rheumatica Admission Data Admit Date/Time: 02/27/20 06:24 Attending Provider: Sebas Britt Admit Provider: Carlos Eduardo Arias Primary Care Provider: Jluito Burt Other Providers: Carlos Eduardo Arias ; Payam Stephenson ; [place] Other Interventions: Discharge Summary Assessment (RN) Last Done: 02/29/20 10:01 Coding Level of Care Code D/C Day Management >30 mins Diagnoses Pulmonary edema J81.1 Polymyalgia rheumatica M35.3 End-stage renal disease on hemodialysis N18.6; Z99.2 Hyperkalemia, diminished renal excretion E87.5 Chronic respiratory failure with hypoxia J96.[address] R93.89 Restrictive lung disease J98.4 Cardiomyopathy I42.9 Hypothyroidism E03.9 Coronary artery disease I25.10 Anemia D64.9 Diabetes mellitus E11.9 Hypertension I10 Morbid obesity with BMI of 40.0-44.9, adult E66.01; Z68.41
--- NOTE | 2020-02-29 10:47 | Nephrology Progress Note ---
Date of Service February 29, 2020 Assessment & Plan (1) End-stage renal disease on hemodialysis: * CXR shows resolution of CHF * Patient is now back to EDW and breathing comfortably on O2 at 3L/min NC * POC discussed w/ primary service. Patient is ready for discharge. Will arrange outpatient HD for 11:30 am at [facility] (2) Congestive heart failure: * Troponin is trending down. Mild elevation likely related to ESRD. Patient is currently CP free * Echocardiogram 02/27/20 reviewed today: No new RWMA * Suspect large IDWG contributing factor. Reinforced need for 1 L/day oral fluid restriction (3) Anemia: * RONNELL given w/ HD 02/27/20 Admission and Anticipated Discharge Date Admission Date: February 27, 2020 Subjective Mrs. Patrick was seen & examined in her hospital room this morning. She reports that she is breathing comfortably on O2 at 3L/min NC. Her myalgias have r esolved w/ low dose prednisone therapy. She is anxious to return home Review of Systems Constitutional: no fever and no weakness Eyes: no problem reported Respiratory: no dyspnea Cardiovascular: no chest pain Physical Exam Constitutional: + obese; not in distress Eyes: PERRL, conjunctivae normal, anicteric sclerae ENMT: external ear and nose normal, oropharynx normal Neck: trachea midline, no thyromegaly Respiratory: Auscultation: no rales Cardiovascular: Rate/Rhythm: regular rate and regular rhythm Extremities: + AV fistula (+ bruit); no edema Gastrointestinal (Abdomen): normal bowel sounds, soft, nontender, no hepatosplenomegaly Skin: no rashes, warm and dry Neurologic: awake; not confused Results & Data ([facility]) Vital Signs (Past 12 Hours) Vital Signs Temp Pulse Pulse Pulse Resp BP Pulse Ox 02/29/20 10:01 36.3 C L 53 L 60 16 175/76 H 98 02/29/20 07:24 36.3 C L 53 L 16 175/76 H 98 02/29/20 04:42 36.4 C L 55 L 16 148/76 H 100 02/29/20 00:00 56 L 02/28/20 22:57 36.7 C 59 L 16 126/62 100 Laboratory Results Laboratory Tests 02/29/20 02/29/20 06:38 06:38 WBC 6.90 Hgb 9.1 L Hct 29.9 L Plt Count 195 Sodium 138 Potassium 5.1 Chloride 102 Carbon Dioxide 31 BUN 48 H Creatinine 5.18 H* Glucose 148 H PG Care Time/CCT Total # of Minutes Spent Total Time Spent with Patient: Total time spent is greater than 50% in coordination of care (as documented) at patient's floor/unit and/or counseling patient: Coding Level of Care Code 52219 Subseq Hosp Care Lvl 3 Diagnoses End-stage renal disease on hemodialysis N18.6; Z99.2 Congestive heart failure I50.9 Anemia D64.9
== END 2020-02-29 10:33 | disposition home health service (06) | DRG 640 ==
LOC: ED 03:57 → SUATTDRO 06:24 → 2S 06:24

== ENCOUNTER 2020-06-24 12:58 | Inpatient (IN) ==
--- NOTE | 2020-06-24 14:23 | XRay Report ---
SINGLE VIEW CHEST CLINICAL HISTORY: Generalized weakness. FINDINGS: An AP, portable, upright chest radiograph is compared to study dated 02/29/2020. Correlation is made with chest CT dated 02/27/2020. The heart is enlarged noting atherosclerotic calcification of the thoracic aorta. The pulmonary vasculature is noncongested. Chronic interstitial thickening is si milar to previous. Atelectasis is noted at the lung bases. No airspace consolidation or large pleural effusion is identified. No pneumothorax is seen. The skeletal structures are osteopenic. The bony th orax is grossly intact. Surgical clips are present in the upper abdomen. IMPRESSION: Cardiomegaly with no acute cardiopulmonary abnormality. ACT 112: Negative or not required by law. Electronically signed by: Derek Low M.D. 06/24/2020 2:22 PM
[2020-06-24 14:35] LABS: Basophils # (auto) 0.02 K/uL (0-0.2); Basophils % (auto) 0.2 %; Eosinophils # (auto) 0.09 K/uL (0-0.5); Eosinophils % (auto) 1.1 %; Hematocrit (blood only) 36.7 % (37-47); Hemoglobin 10.8 g/dL (12.0-16.0); Immature Granulocytes # (auto) 0.03 K/uL (0.00-0.02); Immature Granulocytes % (auto) 0.4 %; Lymphocytes # (auto) 0.84 K/uL (1.2-3.4); Mean Corpuscular Hgb Conc 29.4 g/dL (32-36); Mean Corpuscular Volume 108.6 fL (80-100); Mean Platelet Volume 9.9 fL (7.4-10.4); Monocytes # (auto) 0.34 K/uL (0.11-0.59); Monocytes % (auto) 4.1 %; Neutrophils # (auto) 7.07 K/uL (1.4-6.5); Neutrophils % (auto) 84.2 %; Platelet Count 128 K/uL (130-400); RDW Coefficient of Variation 16.2 % (11.5-14.5); RDW Standard Deviation 64.3 fL (36.4-46.3); Red Blood Count 3.38 M/uL (4.2-5.4); White Blood Count 8.39 K/uL (4.8-10.8)
[2020-06-24 14:51] LABS: Alanine Aminotransferase 14 U/L (12-78); Albumin Level 3.7 gm/dl (3.4-5.0); Alkaline Phosphatase 91 U/L (45-117); Aspartate Aminotransferase 10 U/L (15-37); BUN Creatinine Ratio 8.3 (10-20); Bilirubin,Total 0.4 mg/dl (0.2-1); Blood Urea Nitrogen 64 mg/dl (7-18); Calcium 8.4 mg/dl (8.5-10.1); Carbon Dioxide 31 mmol/L (21-32); Chloride 102 mmol/L (98-107); Est GFR (African American) 5.4; Est GFR (Non-African American) 4.7; Globulin 3.6 gm/dl (2.5-4.0); Glucose 59 mg/dl (70-99); Magnesium 2.7 mg/dl (1.8-2.4); Potassium 7.6 mmol/L (3.5-5.1); Sodium 136 mmol/L (136-145); Total Protein 7.3 gm/dl (6.4-8.2)
[2020-06-24] MEDS ORDERED: CALCIUM GLUCONATE 10% 1,000 MG in SODIUM CHLORIDE 0.9% 50 ML IV ONE (14:56)
[2020-06-24] MEDS ORDERED: SODIUM CHLORIDE 0.9% 1000ML 1,000 ML IV STA (14:56)
[2020-06-24] MEDS ORDERED: DEXTROSE 50% 50 ML SYRINGE IV ONE ×3 (14:58→17:09)
[2020-06-24] MEDS ORDERED: NovoLIN-R INSULIN PER UNIT CHARGE IV STA (14:58)
--- NOTE | 2020-06-24 15:01 | CT Scan Report ---
CT head/brain wo con CLINICAL HISTORY: 75 years-old Female with jerking movements. Acute dizziness with involuntary movem ents TECHNIQUE: Multiple axial CT images of the head were obtained without contrast. A dose lowering tech nique was utilized adhering to the principles of ALARA. CT DOSE: 788.63 mGycm COMPARISON: Head CT 02/27/2020 FINDINGS: No acute intracranial hemorrhage, midline shift, intracranial mass, hydrocephalus, territorial ischem ia or abnormal extra-axial collection. Age-related involutional changes. Patchy white matter hypodens ities suggest chronic microvascular ischemic disease. Cerebral vascular calcifications. The calvarium is intact. Prior bilateral lens replacement The paranasal sinuses, mastoid air cells, a nd middle ear cavities are clear. IMPRESSION: No acute intracranial abnormality. ACT 112: Negative or not required by law. The above report was generated using voice recognition software. It may contain grammatical, syntax o r spelling errors. Electronically signed by: Odilon Oro M.D. 06/24/2020 2:59 PM
[2020-06-24] MEDS ORDERED: PATIROMER CALCIUM SORBITEX 8.4 GM PACK PO STA (15:10)
--- NOTE | 2020-06-24 16:07 | History & Physical Report ---
Date of Service June 24, 2020 Assessment & Plan (1) Hyperkalemia, diminished renal excretion: Patient with hyperkalemia between her dialysis days. Patient is due to get dialysis on Wednesday, normal days of dialysis are ,,Wed. - Treated as per HPI. EMD spoke with nephrology, patient to get acute dialysis today. - ECG no acute distress - Patiromer given, if dialysis not completed can recheck efficacy in 4-6 hours and increase dose if needed. - Nephrology consult - Patient does still make urine - If patient becomes acidotic with hyperkalemia and volume needed, consider isotonic bicarb (2) End-stage renal disease (ESRD): As above - Dialysis per nephrology - right brachial radial AVF intact with good thrill and bruit - Hematoma at access site (3) Hypothyroidism: No acute need - will check TSH with reported weakness (4) Chronic diastolic heart failure: - No acute need at this time. - Volume removal with dialysis - Follow symptomatically (5) Chronic respiratory failure with hypoxia: Restrictive in nature- continue home (6) Polymyalgia rheumatica: Appears to be continued multiple joint involvement and followed by Rheum - Continues to take 1 mg prednisone 4x/day. - imaging once patient electrolytes corrected and volume status corrected (7) Diabetes mellitus: Initiate insulin slowly, glucose consult placed for assistance while in acute setting. - Feed patient at this time to correct hypoglycemia - Patient sates she felt hypoglycemic this morning upon awakening as well. Did get better after breakfast - Goal 140-180 for now (8) Polyarthritis: As above. - Imaging if needed to assist with workup and evaluation of deconditioning - PT and OT consults. History of Present Illness Primary Care Provider: Julito Burt MD 74-year-old female with a past medical history significant for restrictive lung disease (hypoventilation syndrome from obesity), HfPref, left bundle branch block, ESRD on HD, anxiety with depression, diabetic retinopathy, dyslipidemia, GERD/upper motility disorder, insomnia, TASH, PMR, hypothyroidism, CAD, diabetes mellitus and hypertension. The patient reports that she has been feeling relatively unwell over the past month. She has been having an increase in her back pain that has made walking much more difficult and the pain is extending down to her legs, which have resulted in increased falls; she is also experiencing "uncontrollable tremors/twitching", and increase in diarrhea. Due to her limited gait and labs patient was referred to the ER for further work-up. In the ER the patient was noted to be hypoglycemic (59), and Hyperkalemic (7.6). Patient was treated for hyperkalemia with Calcium Gluconate (1 GM), Dextrose (1 amp), IV insulin (1o units), and Patiromer (8.4Gm). Patient will be admitted for dialysis session now, and continued work up of her PMR, weakness, and diarrhea which is consistent per her report to her hospitalization in January. Allergies Allergy/AdvReac Type Severity Reaction Status Date / Time lisinopril AdvReac Intermediate cough Verified 06/24/20 11:38 Home Medications Medication Instructions Recorded Confirmed Type aspirin 81 mg PO QAM 06/16/18 06/24/20 History calcium acetate(phosphat bind) 1,334 mg PO TIDM 07/26/18 06/24/20 History magnesium oxide 400 mg PO QAM cap 12/20/18 06/24/20 History blood sugar diagnostic #100 ea 07/20/19 06/24/20 Rx pen needle, diabetic 31 gauge x #60 ea 07/20/19 06/24/20 Rx 5/16" calcium carbonate 500 mg calcium 500 mg PO QDD 08/10/19 06/24/20 History (1,250 mg) tablet acetaminophen [Tylenol Extra 1,000 mg PO Q6H PRN 11/07/19 06/24/20 History Strength] lorazepam 0.5 mg tablet 0.5 mg PO BID PRN #30 tab 11/09/19 06/24/20 Rx hydralazine 25 mg tablet 25 mg PO TID 90 Days #270 tab 02/01/20 06/24/20 Rx ProRenal 1 tab PO QDL 02/27/20 06/24/20 History Oxygen Home #1 ea 02/29/20 06/24/20 Rx escitalopram oxalate 20 mg tablet 20 mg PO HS #90 tab 05/02/20 06/24/20 Rx gabapentin 300 mg capsule 300 mg PO BID #60 cap 05/02/20 06/24/20 Rx atorvastatin 20 mg tablet 20 mg PO HS #90 tab 05/09/20 06/24/20 Rx carvedilol 25 mg tablet 25 mg PO BID #180 tab 05/09/20 06/24/20 Rx levothyroxine 100 mcg tablet 100 mcg PO DAILY #90 tab 05/09/20 06/24/20 Rx pantoprazole 40 mg tablet,delayed 40 mg PO BID 90 Days #180 tab 05/09/20 06/24/20 Rx release insulin detemir U-100 100 unit/mL 20 unit SUBCUT BID #15 ml 05/14/20 06/24/20 Rx (3 mL) subcutaneous pen prednisone 1 mg tablet 4 mg PO DAILY #120 tab 05/22/20 06/24/20 Rx fenofibrate nanocrystallized 48 mg 48 mg PO DAILY #90 tab 05/28/20 06/24/20 Rx tablet ondansetron HCl 8 mg PO Q8H PRN 06/24/20 06/24/20 History Past Med/Surg History Medical History Anemia Arthritis Chronic diastolic heart failure Chronic kidney disease Coronary artery disease Dependent on hemodialysis Depression with anxiety Diabetes Diabetes mellitus Diabetic retinopathy Dyslipidemia End-stage renal disease on hemodialysis GERD without esophagitis Hernia, hiatal History of thrombophlebitis Hypertension Hypothyroidism Insomnia Macular puckering, bilateral Obstructive sleep apnea Panniculitis Paresthesias Polyarthritis Tubular adenoma of colon URI (upper respiratory infection) Vitamin D deficiency Surgical History H/O: hysterectomy History of bladder surgery History of cataract surgery History of nasal septoplasty S/P arteriovenous (AV) fistula creation S/P hysterectomy S/P repair of paraesophageal hernia S/P rotator cuff repair Family History Mother Leukemia Cerebral aneurysm Hypertension Anxiety Diabetes Grandmother Hypertension Father Osteoarthritis COPD (chronic obstructive pulmonary disease) Diabetes Sister Diabetes Myocardial infarction COPD (chronic obstructive pulmonary disease) Brother Myocardial infarction Diabetes Denies family history of Ovarian cancer Prostate cancer Breast cancer Colorectal cancer Social History Smoking Status: Never smoker Second Hand Exposure: No; Hx Alcohol Use: No Hx Substance Use: No Preferred Language: Hungarian Communication Ability: Effective Visual Impairment: No Limitations Hearing Ability: Normal 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 Beliefs That Will Affect Care: None marital status: Current Living Situation: Spouse current occupational status: retired Other Information That Helps Us Care for You: No Feels Safe at Home: Yes Safety Concerns: Feels Safe At This Time Dental Care, Regularly: No Physical Activity Frequency: 1-2 Times per Week Seatbelt Use: always Assistive Devices: Oxygen - Continuous Review of Systems Review of Systems: REVIEW OF SYSTEMS: Constitutional: No fever, sweats or chills Eyes: No diplopia, no worsening or blurred vision ENT: normal hearing, no trouble swallowing Respiratory: No cough, sputum, dyspnea at rest or on exertion Cardiovascular: No chest pain, tightness or palpitations Abdomen: (+) diarrhea, No pain, nausea, vomiting, or constipation Musculoskeletal: No joint pain, calf pain, swelling Neurologic: (+) chronic back pain, balance problems, radiation of pain, nuropathy Psychiatric: (+) anxiety or depression Skin: No rash or itch Physical Exam Physical Exam: PHYSICAL EXAM: General: awake, alert, no apparent distress Head: Normocephalic, atraumatic ENT: PERRL, EOMI, no pharyngeal exudate, mucous membranes moist Neuro: AAO x 3, speech clear and appropriate, strength intact bilaterally 5/5 upper; 4/5 lower extremity, sensation intact upper; nuropathy to mid calf bilaterally lowers, but equal, normal Babinski. Uncontrolled bilaterall upper extremity twitch, not rythmic, not repetitive, not predictable. No overshoot with finger to nose, lower extremity ataxia difficult to perform. Chest: equal rise and fall of the chest, no accessory muscle use, no heaves or thirlls, Clear to auscultation, on room air, Cardiac: Regular rate and rhythm, telelmetry reviewed, skin warm dry, cap refill <3 seconds, peripheral pusles +2 no JVD, no murmur, no JVD, no edema GI: NABS x 4 quadrants, soft, nontender to palpation, no rebound, guarding or tenderness : Spontaneously voiding (patient reports minimal urine), no pain, no CVA tenderness, Extremities: Normal inspection, no peripheral edema or erythema, calfs nontender to palpation Psych: Normal mood and affect cits Skin: no rash or erythema Constitutional: WD/WN, vitals as above Eyes: normal visual mahoney by confrontation and + anicteric sclerae Neck: normal visual inspection and trachea midline Respiratory: normal respiratory effort, lungs clear to auscultation Cardiovascular: Rate/Rhythm: regular rate and regular rhythm Gastrointestinal (Abdomen): Inspection/Auscultation: abdomen not distended Percussion/Palpation: abdomen soft; abdomen nontender Musculoskeletal: Head/Neck/Chest: normocephalic and head atraumatic Neg for peripheral LE edema, + pedal pulses Skin: no rashes, warm and dry Neurologic: awake; not confused Speech / Cognition: normal speech Motor/Sensory: + fasciculations Psychiatric: A+Ox3, euthymic affect Lymphatic: Exam as done by Liberty Stevens DO Results & Data Results & Data ([place]) Vital Signs (Past 12 Hours) Vital Signs Temp Pulse Pulse Resp BP BP Pulse Ox 06/24/20 14:01 92 H 18 170/85 H 95 06/24/20 13:00 36.8 C 65 18 170/82 H 93 Code Status & VTE Plan VTE Prophylaxis Plan VTE Prophylaxis will be ordered: Yes Supervising Physician Co-Signing Physician Notes Pt seen and examined by me. Denies chest pain or SOB. Tolerating PO without issue, however was feeling nauseated during my exam. Agree with HPI/ROS as noted by NIGHT NURSE See above for my exam in PE section Agree with plan as outlined above Pt sent from office for uncontrollable shaking and feeling generally unwell. Noted to have hyperK and cr elevated above baseline Pt is due for HD tomorrow and did not miss other HD sessions Renal planning for emergent HD tonight Monitor Hypoglycemia in the ED, given D50 Monitor PG Care Time/CCT Total # of Minutes Spent Total Time Spent with Patient: Total time spent is greater than 50% in coordination of care (as documented) at patient's floor/unit and/or counseling patient: Coding Level of Care Code 74166 Initial Inpt Care Lvl 3 Diagnoses Hyperkalemia, diminished renal excretion E87.5 End-stage renal disease (ESRD) N18.6 Hypothyroidism E03.9 Hypothyroidism type: unspecified Chronic diastolic heart failure I50.32 Chronic respiratory failure with hypoxia J96.11 Polymyalgia rheumatica M35.3 Diabetes mellitus E11.22; N18.6; Z79.4; Z99.2 Chronic kidney disease stage: on chronic dialysis Diabetes mellitus complication detail: with chronic kidney disease Diabetes mellitus complication status: with kidney complications Diabetes mellitus 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 Diabetes mellitus type: type 2 Polyarthritis M13.0 (1) Diabetes mellitus Chronic kidney disease stage: on chronic dialysis Diabetes mellitus complication detail: with chronic kidney disease Diabetes mellitus complication status: with kidney complications Diabetes mellitus assisted insulin use: with assisted use Diabetes mellitus type: type 2 Qualified Code(s): E11.22 - Type 2 diabetes mellitus with diabetic chronic kidney disease; N18.6 - End stage renal disease; Z79.4 - custodial (current) use of insulin; Z99.2 - Dependence on renal dialysis (2) Hypothyroidism Hypothyroidism type: unspecified Qualified Code(s): E03.9 - Hypothyroidism, unspecified
[2020-06-24 16:16] LABS: Appearance Urine Cloudy (Clear); Bacteria Urine Automated 2+ (Negative); Bilirubin Urine Negative (Negative); Blood Urine Negative (Negative); Color Urine Yellow; Epithelial Cell Urine Auto >30 /lpf (0-5); Glucose Urine UA Negative (Negative); Ketones Urine Negative (Negative); Leukocyte Esterase Urine Negative (Negative); Nitrite Urine Negative (Negative); Specific Gravity Urine 1.014 (1.000-1.030); Urobilinogen Urine Negative (Negative); pH Urine >= 9.0 (4.5-7.5)
[2020-06-24 16:19] LABS: Protein Urine 2+ (Negative)
[2020-06-24 16:32] LABS: RBC Urine Automated 0-4 /hpf (0-4)
--- NOTE | 2020-06-24 16:47 | Electrocardiogram Report ---
Test Reason : Blood Pressure : / mmHG Vent. Rate : 062 BPM Atrial Rate : 062 BPM P-R Int : 222 ms QRS Dur : 102 ms QT Int : 418 ms P-R-T Axes : -04 -58 074 degrees QTc Int : 424 ms Poor data quality, interpretation may be adversely affected Sinus rhythm with 1st degree A-V block with Premature atrial complexes Left axis deviation Left anterior fascicular block Abnormal ECG When compared with ECG of 27-FEB-2020 04:12, Premature atrial complexes are now Present Confirmed by Davon William ([id number]) on 06/24/2020 4:47:24 PM Referred By: REFERRED SELF Confirmed By:Ravi William
[2020-06-24] MEDS ORDERED: PHARMACY GLYCEMIC MGMT CONSULT STA (17:10)
[2020-06-24] MEDS ORDERED: HEPARIN SOD (PORCINE) 1000 UNIT/ML 10 ML VIAL IV ONE (17:36)
[2020-06-24] MEDS ORDERED: SODIUM CHLORIDE 0.9% 1000ML 1,000 ML IV PRN (17:36)
--- NOTE | 2020-06-24 17:44 | Nephrology Consultation ---
Date of Consultation June 24, 2020 Assessment & Plan (1) Hyperkalemia, diminished renal excretion: - Emergent HD coordinated - Patiromer given (2) End-stage renal disease (ESRD): Will provide HD today for UF and correction of serum potassium Attempt 3 L UF today (patient is 6 kg above dry weight) Rx for 3 hours with anticipated additional treatment tomorrow as needed 2K bath to correct hyperkalemia Recommend low K/diabetic diet Will reassess need for HD again in am (3) Chronic diastolic heart failure: - Suspect large IDWG contributing factor. 6 kg above EDW. 1 L/day oral fluid restriction. - Similar admission in January. (4) Anemia: - Chronic, stable. Maintained on Micera as outpatient. Will monitor. History of Present Illness Reason for Consultation: ESRD Requesting Physician: Felipe Arango Attending Physician: Felipe Arango History of Present Illness Mrs. Shirley Patrick is a 74-year-old female with ESRD. Shirley is a patient of Dr. Stephenson. She receives IHD on a TTS schedule at [facility]. Her last dialysis treatment was completed on Wednesday as scheduled without complications. UF 3.3 L. IDWF has been slightly excessive consistently. Clearances have been at goal with spKt/v 1.7. Shirley has been tolerating HD reasonably well. Unfortunately, she has struggle with dietary adherence between treatments. In addition to large IDWG, Shirley has had issues with chronic hyperkalemia. Potassium was 6.5 mmol/L when checked at the dialysis unit last week. K restriction was advised and she is maintained on a low potassium diet. Unfortunately, Shirley has been struggling with depression, diffuse pain as well as notable lower back pain, and increasing weakness in her legs. She admits to feeling overwhelmed by her multiple medical problems. She has experienced a progressive decline in functional status over the course of the past year. Shirley lives at home with her and unfortunately his ability to assist has been recently complicated by fracture to the arm after sustaining a fall. This has been a source of added stress. Shirley presented to her PCP's office today for evaluation of progressive weakness, fasciculations, and back pain. She also reported multiple loose bowel movements without melena or hematochezia. She was referred to the ER for additional evaluation. In the ER she was found to be notably hyperkalemic with accelerated hypertension and evidence of volume overload. Dr. Hauser contacted me. Patiromer was provided and emergent hemodialysis was coordinated appropriately. I saw and evaluated Shirley in the ER as well as in the ICU during hemodialysis. Records from her prior admission and evaluations at [facility], as well as records from [facility] were reviewed today. ESRD is attributed to diabetic nephropathy. Shirley has been on dialysis since 2016. Rx isTTS 4hr 2K 2Ca 1Mg F-180NR, EDW 100.4 kg. R RC AVF functioning well. Qb ~350. Her medical history is significant for AODM, HTN, ASCVD, hypothyroidism, GERD, depression, RLS and TASH. Recent history includes management of spinal stenosis and possible diagnosis of PMR. Mrs. Patrick has large interdialytic weight gains of 3 - 6 kg. Allergies Allergy/AdvReac Type Severity Reaction Status Date / Time lisinopril AdvReac Intermediate cough Verified 06/24/20 11:38 Home Medications Medication Instructions Recorded Confirmed Type aspirin 81 mg PO QAM 06/16/18 06/24/20 History calcium acetate(phosphat bind) 1,334 mg PO TIDM 07/26/18 06/24/20 History magnesium oxide 400 mg PO QAM cap 12/20/18 06/24/20 History blood sugar diagnostic #100 ea 07/20/19 06/24/20 Rx pen needle, diabetic 31 gauge x #60 ea 07/20/19 06/24/20 Rx 5/16" calcium carbonate 500 mg calcium 500 mg PO QDD 08/10/19 06/24/20 History (1,250 mg) tablet acetaminophen [Tylenol Extra 1,000 mg PO Q6H PRN 11/07/19 06/24/20 History Strength] lorazepam 0.5 mg tablet 0.5 mg PO BID PRN #30 tab 11/09/19 06/24/20 Rx hydralazine 25 mg tablet 25 mg PO TID 90 Days #270 tab 02/01/20 06/24/20 Rx ProRenal 1 tab PO QDL 02/27/20 06/24/20 History Oxygen Home #1 ea 02/29/20 06/24/20 Rx escitalopram oxalate 20 mg tablet 20 mg PO HS #90 tab 05/02/20 06/24/20 Rx gabapentin 300 mg capsule 300 mg PO BID #60 cap 05/02/20 06/24/20 Rx atorvastatin 20 mg tablet 20 mg PO HS #90 tab 05/09/20 06/24/20 Rx carvedilol 25 mg tablet 25 mg PO BID #180 tab 05/09/20 06/24/20 Rx levothyroxine 100 mcg tablet 100 mcg PO DAILY #90 tab 05/09/20 06/24/20 Rx pantoprazole 40 mg tablet,delayed 40 mg PO BID 90 Days #180 tab 05/09/20 06/24/20 Rx release insulin detemir U-100 100 unit/mL 20 unit SUBCUT BID #15 ml 05/14/20 06/24/20 Rx (3 mL) subcutaneous pen prednisone 1 mg tablet 4 mg PO DAILY #120 tab 05/22/20 06/24/20 Rx fenofibrate nanocrystallized 48 mg 48 mg PO DAILY #90 tab 05/28/20 06/24/20 Rx tablet ondansetron HCl 8 mg PO Q8H PRN 06/24/20 06/24/20 History Patient History Medical History Anemia Arthritis Chronic diastolic heart failure Chronic kidney disease Coronary artery disease Dependent on hemodialysis Depression with anxiety Diabetes Diabetes mellitus Diabetic retinopathy Dyslipidemia End-stage renal disease on hemodialysis GERD without esophagitis Hernia, hiatal History of thrombophlebitis Hypertension Hypothyroidism Insomnia Macular puckering, bilateral Obstructive sleep apnea Panniculitis Paresthesias Polyarthritis Tubular adenoma of colon URI (upper respiratory infection) Vitamin D deficiency Surgical History H/O: hysterectomy History of bladder surgery History of cataract surgery History of nasal septoplasty S/P arteriovenous (AV) fistula creation S/P hysterectomy S/P repair of paraesophageal hernia S/P rotator cuff repair Family History Mother Leukemia Cerebral aneurysm Hypertension Anxiety Diabetes Grandmother Hypertension Father Osteoarthritis COPD (chronic obstructive pulmonary disease) Diabetes Sister Diabetes Myocardial infarction COPD (chronic obstructive pulmonary disease) Brother Myocardial infarction Diabetes Denies family history of Ovarian cancer Prostate cancer Breast cancer Colorectal cancer Social History Smoking Status: Never smoker Second Hand Exposure: No; Hx Alcohol Use: No Hx Substance Use: No Preferred Language: Pashto Communication Ability: Effective Visual Impairment: No Limitations Hearing Ability: Normal Gas Meter Reader Required: No Beliefs That Will Affect Care: None marital status: Current Living Situation: Spouse current occupational status: retired Other Information That Helps Us Care for You: No Feels Safe at Home: Yes Safety Concerns: Feels Safe At This Time Dental Care, Regularly: No Physical Activity Frequency: 1-2 Times per Week Seatbelt Use: always Assistive Devices: Oxygen - Continuous, Walker and Wheelchair Review of Systems Review of Systems: All systems reviewed & are unremarkable except as noted in HPI & below Physical Exam Constitutional: well developed and + obese; no acute distress Eyes: + anicteric sclerae; no corneal abnormality ENMT: Mouth: no oral mucosal abnormality and oral mucous membranes not dry Neck: normal visual inspection and trachea midline Respiratory: normal respiratory effort Auscultation: lungs clear to a uscultation bilaterally Cardiovascular: Rate/Rhythm: regular rate Heart Sounds: normal S1, normal S2 and + murmur Extremities: + edema (dependent) and + AV fistula Gastrointestinal (Abdomen): Percussion/Palpation: abdomen soft; abdomen nontender Musculoskeletal: Extremities: no cyanosis and no clubbing Skin: normal turgor; no rashes Neurologic: Motor/Sensory: no tremor and no asterixis Psychiatric: Orientation: alert and oriented x 3 Results & Data ([facility]) Vital Signs (Past 12 Hours) Vital Signs Temp Pulse Pulse Resp BP BP Pulse Ox 06/24/20 16:54 78 20 100 06/24/20 14:01 92 H 18 170/85 H 95 06/24/20 13:00 36.8 C 65 18 170/82 H 93 Laboratory Results Laboratory Results - last 24 hr 06/24/20 06/24/20 06/24/20 14:01 14:01 15:37 WBC 8.39 RBC 3.38 L Hgb 10.8 L Hct 36.7 L MCV 108.6 H MCH 32.0 MCHC 29.4 L RDW Std Deviation 64.3 H RDW Coeff of Jared 16.2 H Plt Count 128 L MPV 9.9 Immature Gran % (Auto) 0.4 Neut % (Auto) 84.2 Lymph % (Auto) 10.0 [place] % (Auto) 4.1 Eos % (Auto) 1.1 Baso % (Auto) 0.2 Neut # (Auto) 7.07 H Lymph # (Auto) 0.84 L [place] # (Auto) 0.34 Eos # (Auto) 0.09 Baso # (Auto) 0.02 Immature Gran # (Auto) 0.03 H Sodium 136 Potassium 7.6 H* Chloride 102 Carbon Dioxide 31 Anion Gap 3.0 BUN 64 H Creatinine 7.66 H* Est Cr Clr Drug Dosing Not Reportable Est GFR ( Amer) 5.4 Est GFR (Non-Af Amer) 4.7 BUN/Creatinine Ratio 8.3 L Glucose 59 L POC Glucose Calcium 8.4 L Magnesium 2.7 H Total Bilirubin 0.4 AST 10 L ALT 14 Alkaline Phosphatase 91 Total Protein 7.3 Albumin 3.7 Globulin 3.6 Albumin/Globulin Ratio 1.0 TSH 1.180 Urine Color Urine Appearance Urine pH Ur Specific [place] Urine Protein Urine Glucose (UA) Urine Ketones Urine Blood Urine Nitrite Urine Bilirubin Urine Urobilinogen Ur Leukocyte Esterase Urine WBC (Auto) Urine RBC (Auto) U Hyaline Cast (Auto) U Epithel Cells (Auto) Urine Bacteria (Auto) Urine Yeast COVID-19 Eval Order Covid19 IDNow [facility] SARS-CoV-2, RNA, NAAT 06/24/20 06/24/20 06/24/20 15:37 15:45 15:53 WBC RBC Hgb Hct MCV MCH MCHC RDW Std Deviation RDW Coeff of Jared Plt Count MPV Immature Gran % (Auto) Neut % (Auto) Lymph % (Auto) [place] % (Auto) Eos % (Auto) Baso % (Auto) Neut # (Auto) Lymph # (Auto) [place] # (Auto) Eos # (Auto) Baso # (Auto) Immature Gran # (Auto) Sodium Cancelled Potassium Cancelled Chloride Cancelled Carbon Dioxide Cancelled Anion Gap Cancelled BUN Cancelled Creatinine Cancelled Est Cr Clr Drug Dosing Cancelled Est GFR ( Amer) Cancelled Est GFR (Non-Af Amer) Cancelled BUN/Creatinine Ratio Cancelled Glucose Cancelled POC Glucose Calcium Cancelled Magnesium Total Bilirubin AST ALT Alkaline Phosphatase Total Protein Albumin Globulin Albumin/Globulin Ratio TSH Urine Color Yellow Urine Appearance Cloudy A Urine pH >= 9.0 H Ur Specific [place] 1.014 Urine Protein 2+ H Urine Glucose (UA) Negative Urine Ketones Negative Urine Blood Negative Urine Nitrite Negative Urine Bilirubin Negative Urine Urobilinogen Negative Ur Leukocyte Esterase Negative Urine WBC (Auto) 1-5 Urine RBC (Auto) 0-4 U Hyaline Cast (Auto) 1-5 U Epithel Cells (Auto) >30 H Urine Bacteria (Auto) 2+ H Urine Yeast Not Reportable COVID-19 Eval Order SARS-CoV-2, RNA, NAAT NEGATIVE 06/24/20 06/24/20 06/24/20 17:00 17:00 17:22 WBC RBC Hgb Hct MCV MCH MCHC RDW Std Deviation RDW Coeff of Jared Plt Count MPV Immature Gran % (Auto) Neut % (Auto) Lymph % (Auto) [place] % (Auto) Eos % (Auto) Baso % (Auto) Neut # (Auto) Lymph # (Auto) [place] # (Auto) Eos # (Auto) Baso # (Auto) Immature Gran # (Auto) Sodium Pending Potassium Pending Chloride Pending Carbon Dioxide Pending Anion Gap Pending BUN Pending Creatinine Pending Est Cr Clr Drug Dosing Pending Est GFR ( Amer) Pending Est GFR (Non-Af Amer) Pending BUN/Creatinine Ratio Pending Glucose Pending POC Glucose 36 L* 126 H Calcium Pending Magnesium Total Bilirubin AST ALT Alkaline Phosphatase Total Protein Albumin Globulin Albumin/Globulin Ratio TSH Urine Color Urine Appearance Urine pH Ur Specific [place] Urine Protein Urine Glucose (UA) Urine Ketones Urine Blood Urine Nitrite Urine Bilirubin Urine Urobilinogen Ur Leukocyte Esterase Urine WBC (Auto) Urine RBC (Auto) U Hyaline Cast (Auto) U Epithel Cells (Auto) Urine Bacteria (Auto) Urine Yeast COVID-19 Eval Order SARS-CoV-2, RNA, NAAT PG Care Time/CCT Total # of Minutes Spent Total Time Spent with Patient: Total time spent is greater than 50% in coordination of care (as documented) at patient's floor/unit and/or counseling patient: Coding Level of Care Code 50957 Inpt Consult Level 5 Diagnoses Hyperkalemia, diminished renal excretion E87.5 End-stage renal disease (ESRD) N18.6 Chronic diastolic heart failure I50.32 Anemia D64.9
[2020-06-24 17:48] LABS: BUN Creatinine Ratio 8.7 (10-20); Blood Urea Nitrogen 65 mg/dl (7-18); Calcium 8.8 mg/dl (8.5-10.1); Carbon Dioxide 28 mmol/L (21-32); Chloride 104 mmol/L (98-107); Est GFR (African American) 5.6; Est GFR (Non-African American) 4.8; Glucose 36 mg/dl (70-99); Potassium 6.6 mmol/L (3.5-5.1); Sodium 137 mmol/L (136-145)
[2020-06-24] MEDS ORDERED: ACETAMINOPHEN 325 MG TAB PO PRN (18:58)
[2020-06-24] MEDS ORDERED: LORazepam 0.5 MG TAB PO PRN (18:58)
[2020-06-24] MEDS ORDERED: ONDANSETRON 8MG OD TAB PO PRN (19:08)
[2020-06-24] MEDS: HEPARIN SOD (PORCINE) 1000 UNIT/ML 10 ML VIAL IV SCH ×2 (22:00→22:01)
[2020-06-24] MEDS: hydrALAZINE HCL 25 MG TAB PO SCH (22:25)
[2020-06-24] MEDS: ATORVASTATIN 20 MG TAB PO SCH (22:25)
[2020-06-24] MEDS: PANTOprazole 40 MG TAB PO SCH (22:25)
[2020-06-24] MEDS: GABAPENTIN 300 MG CAP PO SCH (22:26)
[2020-06-24] MEDS: ESCITALOPRAM OXALATE 20 MG TAB PO SCH (22:26)
[2020-06-24] MEDS: HEPARIN SOD 5,000 UNIT/0.5 ML VIAL SQ SCH (22:26)
[2020-06-24] MEDS: carvediloL 25 MG TAB PO SCH (22:26)
[2020-06-25] MEDS: HEPARIN SOD 5,000 UNIT/0.5 ML VIAL SQ SCH ×3 (06:14→20:51)
[2020-06-25 06:15] LABS: BUN Creatinine Ratio 6.3 (10-20); Creatinine Clr Calc Pharmacy 10.9 ml/min; Est GFR (African American) 9.1; Est GFR (Non-African American) 7.9
[2020-06-25 06:36] LABS: Potassium 5.5 mmol/L (3.5-5.1)
[2020-06-25 07:18] LABS: Estimated Average Glucose 117 mg/dl; Hemoglobin A1C 5.7 % (4.5-5.6)
[2020-06-25] MEDS: LEVOTHYROXINE SODIUM 100 MCG TABLET PO SCH (08:01)
[2020-06-25] MEDS: hydrALAZINE HCL 25 MG TAB PO SCH ×3 (08:02→20:52)
[2020-06-25] MEDS: carvediloL 25 MG TAB PO SCH ×2 (08:02→20:51)
[2020-06-25] MEDS: CALCIUM ACETATE 667 MG CAP/TAB PO SCH ×3 (08:02→16:59)
[2020-06-25] MEDS: GABAPENTIN 300 MG CAP PO SCH ×2 (08:03→20:53)
[2020-06-25] MEDS: PANTOprazole 40 MG TAB PO SCH ×2 (08:03→20:53)
[2020-06-25] MEDS: ASPIRIN 81 MG ECTAB PO SCH (08:03)
[2020-06-25] MEDS: FENOFIBRATE NANOCRYSTALLIZED 48 MG TABLET PO SCH (08:03)
[2020-06-25] MEDS: predniSONE 1 MG TAB PO SCH (08:03)
--- NOTE | 2020-06-25 10:15 | Nephrology Progress Note ---
Date of Service June 25, 2020 Assessment & Plan (1) Hyperkalemia, diminished renal excretion: - Additional dialysis today for clearance - Low potassium bath (2) End-stage renal disease (ESRD): - Emergent HD provided yesterday for hyperkalemia - TTS schedule as outpatient - AVF functioning well - Orders for additional HD today placed in EHR and discussed with dialysis nurse - UF goal 2-3 L - EDW 100 kg - Low potassium diet with 1 L/d fluid restriction - Medications appropriate for kidney function (3) Chronic diastolic heart failure: - Suspect large IDWG contributing factor. Will challenge to EDW with additional HD today. 1 L/day oral fluid restriction. (4) Anemia: - Chronic, stable. Maintained on Micera as outpatient. Will monitor. Admission and Anticipated Discharge Date Admission Date: June 24, 2020 Subjective Tolerated HD yesterday without complications. Completed 3 hours with UF 3 L. Shirley reports persistent weakness and fasciculations/tremor. She is breathing comfortably. Back pain improved. No GI symptoms. No chest pain. No fevers or chills. Review of Systems Review of Systems: All systems reviewed & are unremarkable except as noted in HPI & below Physical Exam Constitutional: well developed and + obese; no acute distress Eyes: + anicteric sclerae; no corneal abnormality ENMT: Mouth: no oral mucosal abnormality and oral mucous membranes not dry Neck: normal visual inspection and trachea midline Respiratory: normal respiratory effort Auscultation: lungs clear to auscultation bilaterally Cardiovascular: Rate/Rhythm: regular rate Heart Sounds: normal S1, normal S2 and + murmur Extremities: + edema (dependent) and + AV fistula Gastrointestinal (Abdomen): Percussion/Palpation: abdomen soft; abdomen nontender Musculoskeletal: Extremities: no cyanosis and no clubbing Skin: normal turgor; no rashes Neurologic: Motor/Sensory: + tremor (subtle resting tremor L hand > R); no asterixis Psychiatric: Orientation: alert and oriented x 3 Results & Data ([facility]) Vital Signs (Past 12 Hours) Vital Signs Temp Pulse Resp BP Pulse Ox 06/25/20 08:01 36.8 C 62 22 149/53 H 98 06/25/20 08:00 63 19 98 06/25/20 07:00 63 21 100 06/24/20 23:56 63 14 123/52 L 100 Laboratory Results Laboratory Results - last 24 hr 06/24/20 06/24/20 06/24/20 14:01 14:01 15:37 WBC 8.39 RBC 3.38 L Hgb 10.8 L Hct 36.7 L MCV 108.6 H MCH 32.0 MCHC 29.4 L RDW Std Deviation 64.3 H RDW Coeff of Jared 16.2 H Plt Count 128 L MPV 9.9 Immature Gran % (Auto) 0.4 Neut % (Auto) 84.2 Lymph % (Auto) 10.0 [place] % (Auto) 4.1 Eos % (Auto) 1.1 Baso % (Auto) 0.2 Neut # (Auto) 7.07 H Lymph # (Auto) 0.84 L [place] # (Auto) 0.34 Eos # (Auto) 0.09 Baso # (Auto) 0.02 Immature Gran # (Auto) 0.03 H Sodium 136 Potassium 7.6 H* Chloride 102 Carbon Dioxide 31 Anion Gap 3.0 BUN 64 H Creatinine 7.66 H* Est Cr Clr Drug Dosing Not Reportable Est GFR ( Amer) 5.4 Est GFR (Non-Af Amer) 4.7 BUN/Creatinine Ratio 8.3 L Glucose 59 L POC Glucose Estimat Average Glucose Hemoglobin A1c Calcium 8.4 L Magnesium 2.7 H Iron Total Bilirubin 0.4 AST 10 L ALT 14 Alkaline Phosphatase 91 Total Protein 7.3 Albumin 3.7 Globulin 3.6 Albumin/Globulin Ratio 1.0 TSH 1.180 Urine Color Urine Appearance Urine pH Ur Specific [place] Urine Protein Urine Glucose (UA) Urine Ketones Urine Blood Urine Nitrite Urine Bilirubin Urine Urobilinogen Ur Leukocyte Esterase Urine WBC (Auto) Urine RBC (Auto) U Hyaline Cast (Auto) U Epithel Cells (Auto) Urine Bacteria (Auto) Urine Yeast COVID-19 Eval Order Covid19 IDNow [facility] SARS-CoV-2, RNA, NAAT 06/24/20 06/24/20 06/24/20 15:37 15:45 15:53 WBC RBC Hgb Hct MCV MCH MCHC RDW Std Deviation RDW Coeff of Jared Plt Count MPV Immature Gran % (Auto) Neut % (Auto) Lymph % (Auto) [place] % (Auto) Eos % (Auto) Baso % (Auto) Neut # (Auto) Lymph # (Auto) [place] # (Auto) Eos # (Auto) Baso # (Auto) Immature Gran # (Auto) Sodium Cancelled Potassium Cancelled Chloride Cancelled Carbon Dioxide Cancelled Anion Gap Cancelled BUN Cancelled Creatinine Cancelled Est Cr Clr Drug Dosing Cancelled Est GFR ( Amer) Cancelled Est GFR (Non-Af Amer) Cancelled BUN/Creatinine Ratio Cancelled Glucose Cancelled POC Glucose Estimat Average Glucose Hemoglobin A1c Calcium Cancelled Magnesium Iron Total Bilirubin AST ALT Alkaline Phosphatase Total Protein Albumin Globulin Albumin/Globulin Ratio TSH Urine Color Yellow Urine Appearance Cloudy A Urine pH >= 9.0 H Ur Specific [place] 1.014 Urine Protein 2+ H Urine Glucose (UA) Negative Urine Ketones Negative Urine Blood Negative Urine Nitrite Negative Urine Bilirubin Negative Urine Urobilinogen Negative Ur Leukocyte Esterase Negative Urine WBC (Auto) 1-5 Urine RBC (Auto) 0-4 U Hyaline Cast (Auto) 1-5 U Epithel Cells (Auto) >30 H Urine Bacteria (Auto) 2+ H Urine Yeast Not Reportable COVID-19 Eval Order SARS-CoV-2, RNA, NAAT NEGATIVE 06/24/20 06/24/20 06/24/20 17:00 17:00 17:22 WBC RBC Hgb Hct MCV MCH MCHC RDW Std Deviation RDW Coeff of Jared Plt Count MPV Immature Gran % (Auto) Neut % (Auto) Lymph % (Auto) [place] % (Auto) Eos % (Auto) Baso % (Auto) Neut # (Auto) Lymph # (Auto) [place] # (Auto) Eos # (Auto) Baso # (Auto) Immature Gran # (Auto) Sodium 137 Potassium 6.6 H* Chloride 104 Carbon Dioxide 28 Anion Gap 5.0 BUN 65 H Creatinine 7.50 H* Est Cr Clr Drug Dosing Not Reportable Est GFR ( Amer) 5.6 Est GFR (Non-Af Amer) 4.8 BUN/Creatinine Ratio 8.7 L Glucose 36 L* POC Glucose 36 L* 126 H Estimat Average Glucose Hemoglobin A1c Calcium 8.8 Magnesium Iron Total Bilirubin AST ALT Alkaline Phosphatase Total Protein Albumin Globulin Albumin/Globulin Ratio TSH Urine Color Urine Appearance Urine pH Ur Specific [place] Urine Protein Urine Glucose (UA) Urine Ketones Urine Blood Urine Nitrite Urine Bilirubin Urine Urobilinogen Ur Leukocyte Esterase Urine WBC (Auto) Urine RBC (Auto) U Hyaline Cast (Auto) U Epithel Cells (Auto) Urine Bacteria (Auto) Urine Yeast COVID-19 Eval Order SARS-CoV-2, RNA, NAAT 06/24/20 06/24/20 06/24/20 19:04 21:36 21:37 WBC RBC Hgb Hct MCV MCH MCHC RDW Std Deviation RDW Coeff of Jared Plt Count MPV Immature Gran % (Auto) Neut % (Auto) Lymph % (Auto) [place] % (Auto) Eos % (Auto) Baso % (Auto) Neut # (Auto) Lymph # (Auto) [place] # (Auto) Eos # (Auto) Baso # (Auto) Immature Gran # (Auto) Sodium Potassium Chloride Carbon Dioxide Anion Gap BUN Creatinine Est Cr Clr Drug Dosing Est GFR ( Amer) Est GFR (Non-Af Amer) BUN/Creatinine Ratio Glucose POC Glucose 72 54 L* 59 L* Estimat Average Glucose Hemoglobin A1c Calcium Magnesium Iron Total Bilirubin AST ALT Alkaline Phosphatase Total Protein Albumin Globulin Albumin/Globulin Ratio TSH Urine Color Urine Appearance Urine pH Ur Specific [place] Urine Protein Urine Glucose (UA) Urine Ketones Urine Blood Urine Nitrite Urine Bilirubin Urine Urobilinogen Ur Leukocyte Esterase Urine WBC (Auto) Urine RBC (Auto) U Hyaline Cast (Auto) U Epithel Cells (Auto) Urine Bacteria (Auto) Urine Yeast COVID-19 Eval Order SARS-CoV-2, RNA, NAAT 06/24/20 06/25/20 06/25/20 22:05 00:05 05:21 WBC RBC Hgb Hct MCV MCH MCHC RDW Std Deviation RDW Coeff of Jared Plt Count MPV Immature Gran % (Auto) Neut % (Auto) Lymph % (Auto) [place] % (Auto) Eos % (Auto) Baso % (Auto) Neut # (Auto) Lymph # (Auto) [place] # (Auto) Eos # (Auto) Baso # (Auto) Immature Gran # (Auto) Sodium 141 Potassium 5.5 H D Chloride 106 Carbon Dioxide 33 H Anion Gap 2.0 L BUN 32 H D Creatinine 5.00 H* D Est Cr Clr Drug Dosing 10.9 Est GFR ( Amer) 9.1 Est GFR (Non-Af Amer) 7.9 BUN/Creatinine Ratio 6.3 L Glucose 74 POC Glucose 185 H 172 H Estimat Average Glucose Hemoglobin A1c Calcium 8.0 L Magnesium Iron 125 Total Bilirubin AST ALT Alkaline Phosphatase Total Protein Albumin Globulin Albumin/Globulin Ratio TSH Urine Color Urine Appearance Urine pH Ur Specific [place] Urine Protein Urine Glucose (UA) Urine Ketones Urine Blood Urine Nitrite Urine Bilirubin Urine Urobilinogen Ur Leukocyte Esterase Urine WBC (Auto) Urine RBC (Auto) U Hyaline Cast (Auto) U Epithel Cells (Auto) Urine Bacteria (Auto) Urine Yeast COVID-19 Eval Order SARS-CoV-2, RNA, NAAT 06/25/20 06/25/20 05:21 06:31 WBC RBC Hgb Hct MCV MCH MCHC RDW Std Deviation RDW Coeff of Jared Plt Count MPV Immature Gran % (Auto) Neut % (Auto) Lymph % (Auto) [place] % (Auto) Eos % (Auto) Baso % (Auto) Neut # (Auto) Lymph # (Auto) [place] # (Auto) Eos # (Auto) Baso # (Auto) Immature Gran # (Auto) Sodium Potassium Chloride Carbon Dioxide Anion Gap BUN Creatinine Est Cr Clr Drug Dosing Est GFR ( Amer) Est GFR (Non-Af Amer) BUN/Creatinine Ratio Glucose POC Glucose 103 H Estimat Average Glucose 117 Hemoglobin A1c 5.7 H Calcium Magnesium Iron Total Bilirubin AST ALT Alkaline Phosphatase Total Protein Albumin Globulin Albumin/Globulin Ratio TSH Urine Color Urine Appearance Urine pH Ur Specific [place] Urine Protein Urine Glucose (UA) Urine Ketones Urine Blood Urine Nitrite Urine Bilirubin Urine Urobilinogen Ur Leukocyte Esterase Urine WBC (Auto) Urine RBC (Auto) U Hyaline Cast (Auto) U Epithel Cells (Auto) Urine Bacteria (Auto) Urine Yeast COVID-19 Eval Order SARS-CoV-2, RNA, NAAT PG Care Time/CCT Total # of Minutes Spent Total Time Spent with Patient: Total time spent is greater than 50% in coordination of care (as documented) at patient's floor/unit and/or counseling patient: Coding Level of Care Code 64661 Subseq Hosp Care Lvl 3 Diagnoses Hyperkalemia, diminished renal excretion E87.5 End-stage renal disease (ESRD) N18.6 Chronic diastolic heart failure I50.32 Anemia D64.9
--- NOTE | 2020-06-25 11:16 | Hospitalist Progress Note ---
Date of Service June 25, 2020 Assessment & Plan (1) Hyperkalemia, diminished renal excretion: 75 yo F with extensive medical hx significant for ESRD on Hemodialysis (T,,), HFpEF (55-60%), DM2, Polymyalgia Rheumatica, macrocytic anemia, chronic respiratory failure with hypoxia (on 3L NC) who presented to her PCP's office not feeling well with "the shakes" and was promptly sent to the ER after found to have an elevated Cr and K of 7.6. 1. Hyperkalemia in setting of ESRD on Dialysis - received patiromer, insulin + dextrose, calcium gluconate in ER for prompt control - evaluated by nephrology, sent to emergent HD on 06/24, repeat HD on 06/25 for persistent K of 5.5, down from 7.6 on admission - most recent EKG without QRS prolongation, QT prolongation, peaked T waves; improved from prior - patient continues to complain of "shakes" that are most likely fasciculations secondary to electrolyte disturbances - zofran for nausea HFpEF, HTN - CXR on admission without indications of pulmonary edema - no increased SOB, CP, or peripheral edema - continue hydralazine, carvedilol, DM2 - on Detemir 20u BID at home - admitted hypoglycemic to 50s; holding insulin orders for now and monitor for further hypoglycemic episodes until etiology found - appreciate pharmacy's help with glycemic management - goal BSG 120 - 180 Hypothyroidism: - TSH 1.18, WNL - cont levothyroxine 100 mcg daily Chronic respiratory failure with hypoxia: - Restrictive lung disease, on home O2 requirement of 3L NC 24/7 TASH - CPAP at night Polymyalgia rheumatica: - 1 mg prednisone 4x/day. Polyarthritis: - secondary to PMR - PT/OT for needs after hospitalization HLD - cont fenofibrate, statin Depression with Anxiety - cont escitalopram 20 - on ativan 0.5 BID PRN at home Peripheral Neuropathy - cont gabapentin 300 BID DVT ppx: heparin 5000 Q8 FEN/GI: PO fluid intake, renal low K diet, PPI BID Dispo: pending PT/OT evals COde Status: DNR/DNI (2) Chronic respiratory failure with hypoxia: (3) Polymyalgia rheumatica: (4) Morbid obesity with BMI of 40.0-44.9, adult: (5) CHF (congestive heart failure): (6) End-stage renal disease on hemodialysis: (7) Anemia: Admission and Anticipated Discharge Date Admission Date: June 24, 2020 Supervising Physician Co-Signing Physician Notes Attending attestation Pt seen and examined in concert with Dr. Willoughby. In agreement with the documented findings as noted in the resident documentation with any exceptions or additions as noted here. Improved but persistent tremulousness and intermittent spasm noted following dialysis. On examination, S1/S2 nl RRR no MCG. CTAB. Abd NT/ND BS+ve. Palpable fasiculations of the bilateral FA ESRD on HD with hyperkalemia - nephrology consultation - pending repeat dialysis (which would be her scheduled TTS) Else see resident documentation as noted. Subjective feeling better this morning than on admission last night. Still feels shaky. Review of Systems Respiratory: no cough and no dyspnea Cardiovascular: no chest pain, no dyspnea at rest (while on oxygen), no orthopnea, no palpitations and no lightheadedness Gastrointestinal: no abdominal pain, no nausea and no vomiting Neurologic: + tremor(s); no gait abnormality, no unsteadiness and no localized weakness Physical Exam Physical Exam: Constitutional: obese, in no apparent distress, sitting comfortably in bed. Eyes: EOMI, pupils equal and reactive bilaterally, no scleral icterus Cardiac: RRR, no murmurs, gallops or rubs. Normal S1, S2 Pulm: CTA BL, no wheezes, rhonchi, crackles or rubs, moving air well on 3L NC (baseline) Abd: soft, nontender, nondistended, normal bowel sounds, no rebound or guarding Neuro: hands tremulous with fasciculations in bilateral arms and chest Results & Data Results & Data ([facility]) Vital Signs (Past 12 Hours) Vital Signs Temp Pulse Resp BP Pulse Ox 06/25/20 10:01 69 15 141/44 H 100 06/25/20 10:00 59 L 12 98 06/25/20 08:02 62 20 98 06/25/20 08:01 36.8 C 62 22 149/53 H 98 06/25/20 08:00 63 19 98 06/25/20 07:00 63 21 100 06/24/20 23:56 63 14 123/52 L 100 Laboratory Results WBC 8.39 K/uL (4.8-10.8) 06/24/20 14:01 RBC 3.38 M/uL (4.2-5.4) L 06/24/20 14:01 Hgb 10.8 g/dL (12.0-16.0) L 06/24/20 14:01 Hct 36.7 % (37-47) L 06/24/20 14:01 MCV 108.6 fL (80-100) H 06/24/20 14:01 MCH 32.0 pg (25-34) 06/24/20 14:01 MCHC 29.4 g/dL (32-36) L 06/24/20 14:01 RDW Std Deviation 64.3 fL (36.4-46.3) H 06/24/20 14:01 RDW Coeff of Jared 16.2 % (11.5-14.5) H 06/24/20 14:01 Plt Count 128 K/uL (130-400) L 06/24/20 14:01 MPV 9.9 fL (7.4-10.4) 06/24/20 14:01 Immature Gran % (Auto) 0.4 % 06/24/20 14:01 Neut % (Auto) 84.2 % 06/24/20 14:01 Lymph % (Auto) 10.0 % 06/24/20 14:01 [place] % (Auto) 4.1 % 06/24/20 14:01 Eos % (Auto) 1.1 % 06/24/20 14:01 Baso % (Auto) 0.2 % 06/24/20 14:01 Neut # (Auto) 7.07 K/uL (1.4-6.5) H 06/24/20 14:01 Lymph # (Auto) 0.84 K/uL (1.2-3.4) L 06/24/20 14:01 [place] # (Auto) 0.34 K/uL (0.11-0.59) 06/24/20 14:01 Eos # (Auto) 0.09 K/uL (0-0.5) 06/24/20 14:01 Baso # (Auto) 0.02 K/uL (0-0.2) 06/24/20 14:01 Immature Gran # (Auto) 0.03 K/uL (0.00-0.02) H 06/24/20 14:01 Sodium 141 mmol/L (136-145) 06/25/20 05:21 Potassium 5.5 mmol/L (3.5-5.1) H D 06/25/20 05:21 Chloride 106 mmol/L (98-107) 06/25/20 05:21 Carbon Dioxide 33 mmol/L (21-32) H 06/25/20 05:21 Anion Gap 2.0 (3-11) L 06/25/20 05:21 BUN 32 mg/dl (7-18) H D 06/25/20 05:21 Creatinine 5.00 mg/dl (0.6-1.2) H* D 06/25/20 05:21 Est Cr Clr Drug Dosing 10.9 ml/min 06/25/20 05:21 Est GFR ( Amer) 9.1 06/25/20 05:21 Est GFR (Non-Af Amer) 7.9 06/25/20 05:21 BUN/Creatinine Ratio 6.3 (10-20) L 06/25/20 05:21 Glucose 74 mg/dl (70-99) 06/25/20 05:21 POC Glucose 124 mg/dl (70-99) H 06/25/20 11:31 Estimat Average Glucose 117 mg/dl 06/25/20 05:21 Hemoglobin A1c 5.7 % (4.5-5.6) H 06/25/20 05:21 Calcium 8.0 mg/dl (8.5-10.1) L 06/25/20 05:21 Magnesium 2.7 mg/dl (1.8-2.4) H 06/24/20 14:01 Iron 125 mcg/dl (35-150) 06/25/20 05:21 Total Bilirubin 0.4 mg/dl (0.2-1) 06/24/20 14:01 AST 10 U/L (15-37) L 06/24/20 14:01 ALT 14 U/L (12-78) 06/24/20 14:01 Alkaline Phosphatase 91 U/L (45-117) 06/24/20 14:01 Total Protein 7.3 gm/dl (6.4-8.2) 06/24/20 14:01 Albumin 3.7 gm/dl (3.4-5.0) 06/24/20 14:01 Globulin 3.6 gm/dl (2.5-4.0) 06/24/20 14:01 Albumin/Globulin Ratio 1.0 (0.9-2) 06/24/20 14:01 TSH 1.180 uIu/ml (0.300-4.500) 06/24/20 14:01 Urine Color Yellow 06/24/20 15:53 Urine Appearance Cloudy (Clear) A 06/24/20 15:53 Urine pH >= 9.0 (4.5-7.5) H 06/24/20 15:53 Ur Specific [place] 1.014 (1.000-1.030) 06/24/20 15:53 Urine Protein 2+ (Negative) H 06/24/20 15:53 Urine Glucose (UA) Negative (Negative) 06/24/20 15:53 Urine Ketones Negative (Negative) 06/24/20 15:53 Urine Blood Negative (Negative) 06/24/20 15:53 Urine Nitrite Negative (Negative) 06/24/20 15:53 Urine Bilirubin Negative (Negative) 06/24/20 15:53 Urine Urobilinogen Negative (Negative) 06/24/20 15:53 Ur Leukocyte Esterase Negative (Negative) 06/24/20 15:53 Urine WBC (Auto) 1-5 /hpf (0-5) 06/24/20 15:53 Urine RBC (Auto) 0-4 /hpf (0-4) 06/24/20 15:53 U Hyaline Cast (Auto) 1-5 /lpf (0-5) 06/24/20 15:53 U Epithel Cells (Auto) >30 /lpf (0-5) H 06/24/20 15:53 Urine Bacteria (Auto) 2+ (Negative) H 06/24/20 15:53 Urine Yeast Not Reportable 06/24/20 15:53 COVID-19 Eval Order Covid[address] [facility] 06/24/20 15:37 SARS-CoV-2, RNA, NAAT NEGATIVE (NEGATIVE) 06/24/20 15:37 Resident Activity Tracking Resident Involvement: Resident Care Provided Care Provided: Adult Hospital Medicine (1) CHF (congestive heart failure) Heart failure chronicity: acute on chronic Heart failure type: unspecified Qualified Code(s): I50.9 - Heart failure, unspecified
--- NOTE | 2020-06-25 11:27 | Electrocardiogram Report ---
Test Reason : Blood Pressure : / mmHG Vent. Rate : 063 BPM Atrial Rate : 063 BPM P-R Int : 198 ms QRS Dur : 094 ms QT Int : 426 ms P-R-T Axes : 029 -56 093 degrees QTc Int : 435 ms Normal sinus rhythm Left axis deviation Nonspecific ST and T wave abnormality Poor R wave progression, consider anterior [place] vs. lead placement vs. LVH Abnormal ECG When compared with ECG of 24-JUN-2020 14:12, Premature atrial complexes are no longer Present Nonspecific T wave abnormality now evident in Inferior leads Nonspecific T wave abnormality, worse in Lateral leads Confirmed by Davon William ([id number] on 06/25/2020 11:26:53 AM Referred By: REFERRED SELF Confirmed By:Ravi William
[2020-06-25] MEDS ORDERED: CALCIUM CARBONATE 1250MG TAB PO SCH (16:30)
[2020-06-25] MEDS: ESCITALOPRAM OXALATE 20 MG TAB PO SCH (20:51)
[2020-06-25] MEDS: ATORVASTATIN 20 MG TAB PO SCH (20:53)
--- NOTE | 2020-06-25 22:52 | Emergency Department Note ---
Impression & Plan Acute hyperkalemia, Chronic kidney disease, Pulmonary vascular congestion, Hemodialysis status ED Provider Note NAME: LITO MOHR AGE: 75 SEX: F ARRIVES VIA: Walk-In INFORMANT: Patient ED PROVIDER(S): Alisson Hauser MD CHIEF COMPLAINT: Weakness, twitches, shakes, diarrhea PLAN: Disposition: Inpatient Condition: Critical Referral: Hospitalist MEDICAL DECISION MAKING: This patient was evaluated and appeared to be in no significant distress. IV access was obtained and laboratory work was drawn. Patient was placed on a truck shop supervisor and noted to be in a sinus rhythm with a first-degree AV block at 65 bpm. Patient's vital signs were reviewed and remained stable. Chest x- ray was performed and reveals pulmonary vascular congestion, she was placed on nasal cannula oxygen, likely due to her fluid overload and need for dialysis. She is due for dialysis tomorrow. Laboratory work reveals a potassium of 7.6 with a creatinine of 7.66. Patient was medicated with IV calcium gluconate, IV D50 and IV regular insulin 10 units. IV normal saline solution was initiated. Nephrology was called, Dr. Guerra, who has agreed to arrange for dialysis treatment. He has also recommended p.o. patiromer, which was ordered. Head CT was performed and reveals no evidence of acute intracranial abnormality. The patient was discussed with the hospitalist service who will evaluate the patient for admission and further management. Patient is aware of the plan and agrees. Triage Nursing notes reviewed. Prior medical records reviewed/ outpatient Vital Signs: reviewed and remarkable for no significant abnormalities Differential diagnosis: Infection, dehydration, metabolic abnormality, hypo/hyperglycemia, electrolyte disturbance, anemia, hypoxia, cardiac sources, intracerebral event, toxicologic, neurologic, as well as other pathologies. ER treatment provided: IV calcium gluconate IV D50 IV regular insulin 10 units po patiromer Diagnostics interpreted by me: ECG: Sinus rhythm with a first-degree AV block at 62 bpm. Poor quality baseline for interpretation. Left axis deviation. QTC of 424. Left anterior fascicular block. PAC versus artifact Cardiac Monitoring: An order for cardiac monitoring was placed and the patient is noted to be in a sinus rhythm with a first-degree AV block at 62 bpm Laboratory studies: See below Imaging studies: SINGLE VIEW CHEST CLINICAL HISTORY: Generalized weakness. FINDINGS: An AP, portable, upright chest radiograph is compared to study dated 02/29/2020. Correlation is made with chest CT dated 02/27/2020. The heart is enlarged noting atherosclerotic calcification of the thoracic aorta. The pulmonary vasculature is noncongested. Chronic interstitial thickening is similar to previous. Atelectasis is noted at the lung bases. No airspace consolidation or large pleural effusion is identified. No pneumothorax is seen. The skeletal structures are osteopenic. The bony thorax is grossly intact. Surgical clips are present in the upper abdomen. IMPRESSION: Cardiomegaly with no acute cardiopulmonary abnormality. ACT 112: Negative or not required by law. Electronically signed by: Derek Low M.D. 06/24/2020 2:[address] head/brain wo con CLINICAL HISTORY: 75 years-old Female with jerking movements. Acute dizziness with involuntary movements TECHNIQUE: Multiple axial CT images of the head were obtained without contrast. A dose lowering technique was utilized adhering to the principles of ALARA. CT DOSE: 788.63 mGycm COMPARISON: Head CT 02/27/2020 FINDINGS: No acute intracranial hemorrhage, midline shift, intracranial mass, hydrocephalus, territorial ischemia or abnormal extra-axial collection. Age- related involutional changes. Patchy white matter hypodensities suggest chronic microvascular ischemic disease. Cerebral vascular calcifications. The calvarium is intact. Prior bilateral lens replacement The paranasal sinuses, mastoid air cells, and middle ear cavities are clear. IMPRESSION: No acute intracranial abnormality. ACT 112: Negative or not required by law. The above report was generated using voice recognition software. It may contain grammatical, syntax or spelling errors. Electronically signed by: Odilon Oro M.D. 06/24/2020 2:59 PM Dictated: 06/24/20 1457Transcribed: 06/24/20 1457 Dictated: 06/24/20 1420Transcribed: 06/24/20 1420 Consultation(s): Hospitalist HPI: 75/F arrives for evaluation of generalized weakness, jittery feelings and shakes. Patient is chronically ill with a history of diabetes, end-stage renal disease on hemodialysis. She has had several syncopal/near syncopal episodes today. She denies any anticoagulation. Patient admits to increased diarrhea over the last several days, but states this is a chronic issue. She has had 2-3 episodes daily for the last 5 days. She denies any recent antibiotic use. The patient is a [facility] Thursday Saturday dialysis patient. She is due for treatment tomorrow. She denies any recent fevers, chills, chest pain or vomiting. ROS: See above HPI for pertinent positives & negatives. A total of 10 systems reviewed and were otherwise negative. PAST MEDICAL HISTORY:See Below PAST SURGICAL HISTORY:See Below FAMILY HISTORY:See Below SOCIAL HISTORY:See Below HOME MEDICATIONS:See Below ALLERGIES:See Below VITALS:See Below PHYSICAL EXAMINATION: Vital signs reviewed. General: Chronically ill-appearing 75-year-old female, in no significant distress. HEENT: No scleral icterus, PERRLA, neck supple. Atraumatic. Cardiovascular: Regular rate and rhythm, no extra sounds. Pulmonary: Clear to auscultation bilaterally, normal work of breathing. Abdomen: Soft, obese, nontender, nondistended, positive bowel sounds. Musculoskeletal: Atraumatic, no peripheral edema. Neurologic: Patient awake alert and oriented x 3 Skin: Warm, dry, no rash I have personally spent greater than 35 minutes of critical care time in the direct management of this patient. This includes bedside care, interpretation of diagnostic studies, and testing, discussion with consultants, patient, and family members, and other required patient management activities. This 35 minutes is in excess of all separately billable procedures. Alisson Hauser MD Past Med/Surg History Medical History (Updated 06/26/20 @ 17:33 by Alisson Hauser MD) Anemia Arthritis Chronic kidney disease Coronary artery disease Depression with anxiety Diabetes Diabetes mellitus Diabetic retinopathy Dyslipidemia End-stage renal disease on hemodialysis GERD without esophagitis Hernia, hiatal History of thrombophlebitis Hypertension Hypothyroidism Insomnia Laceration of left lower extremity Macular puckering, bilateral Obstructive sleep apnea Panniculitis Paresthesias Polyarthritis Tubular adenoma of colon URI (upper respiratory infection) Vitamin D deficiency Surgical History H/O: hysterectomy History of bladder surgery History of cataract surgery History of nasal septoplasty S/P arteriovenous (AV) fistula creation S/P hysterectomy S/P repair of paraesophageal hernia S/P rotator cuff repair Family History Mother Leukemia Cerebral aneurysm Hypertension Anxiety Diabetes Grandmother Hypertension Father Osteoarthritis COPD (chronic obstructive pulmonary disease) Diabetes Sister Diabetes Myocardial infarction COPD (chronic obstructive pulmonary disease) Brother Myocardial infarction Diabetes Denies family history of Ovarian cancer Prostate cancer Breast cancer Colorectal cancer Social History Smoking Status: Never smoker Second Hand Exposure: No; Hx Alcohol Use: No Hx Substance Use: No Preferred Language: Icelandic Communication Ability: Effective Visual Impairment: No Limitations Hearing Ability: Normal Handbook Writer Required: No Beliefs That Will Affect Care: None marital status: Current Living Situation: Spouse current occupational status: retired Feels Safe at Home: Yes Dental Care, Regularly: No Physical Activity Frequency: 1-2 Times per Week Seatbelt Use: always Assistive Devices: Oxygen - Continuous Allergies Allergies Allergy/AdvReac Type Severity Reaction Status Date / Time lisinopril AdvReac Intermediate cough Verified 06/24/20 11:38 Home Meds Home Medications Medication Instructions Recorded Confirmed aspirin 81 mg PO QAM 06/16/18 06/24/20 calcium acetate(phosphat bind) 1,334 mg PO TIDM 07/26/18 06/24/20 magnesium oxide 400 mg PO QAM cap 12/20/18 06/24/20 calcium carbonate 500 mg calcium 500 mg PO QDD 08/10/19 06/24/20 (1,250 mg) tablet acetaminophen [Tylenol Extra 1,000 mg PO Q6H PRN 11/07/19 06/24/20 Strength] ProRenal 1 tab PO QDL 02/27/20 06/24/20 ondansetron HCl 8 mg PO Q8H PRN 06/24/20 06/24/20 Previous Rx's Medication Instructions Recorded blood sugar diagnostic #100 ea 07/20/19 pen needle, diabetic 31 gauge x #60 ea 07/20/19 5/16" lorazepam 0.5 mg tablet 0.5 mg PO BID PRN #30 tab 11/09/19 hydralazine 25 mg tablet 25 mg PO TID 90 Days #270 tab 02/01/20 Oxygen Home #1 ea 02/29/20 escitalopram oxalate 20 mg tablet 20 mg PO HS #90 tab 05/02/20 gabapentin 300 mg capsule 300 mg PO BID #60 cap 05/02/20 atorvastatin 20 mg tablet 20 mg PO HS #90 tab 05/09/20 carvedilol 25 mg tablet 25 mg PO BID #180 tab 05/09/20 levothyroxine 100 mcg tablet 100 mcg PO DAILY #90 tab 05/09/20 pantoprazole 40 mg tablet,delayed 40 mg PO BID 90 Days #180 tab 05/09/20 release insulin detemir U-100 100 unit/mL 20 unit SUBCUT BID #15 ml 05/14/20 (3 mL) subcutaneous pen prednisone 1 mg tablet 4 mg PO DAILY #120 tab 05/22/20 fenofibrate nanocrystallized 48 mg 48 mg PO DAILY #90 tab 05/28/20 tablet Results & Data (ED) Laboratory Data Result diagrams: 06/24/20 14:01 06/26/20 04:53 Lab Results 06/24/20 06/24/20 06/24/20 Range/Units 14:01 14:01 15:37 WBC 8.39 (4.8-10.8) K/uL RBC 3.38 L (4.2-5.4) M/uL Hgb 10.8 L (12.0-16.0) g/dL Hct 36.7 L (37-47) % MCV 108.6 H (80-100) fL MCH 32.0 (25-34) pg MCHC 29.4 L (32-36) g/dL RDW Std Deviation 64.3 H (36.4-46.3) fL RDW Coeff of Jared 16.2 H (11.5-14.5) % Plt Count 128 L (130-400) K/uL MPV 9.9 (7.4-10.4) fL Immature Gran % (Auto) 0.4 % Neut % (Auto) 84.2 % Lymph % (Auto) 10.0 % Hinds % (Auto) 4.1 % Eos % (Auto) 1.1 % Baso % (Auto) 0.2 % Neut # (Auto) 7.07 H (1.4-6.5) K/uL Lymph # (Auto) 0.84 L (1.2-3.4) K/uL Hinds # (Auto) 0.34 (0.11-0.59) K/uL Eos # (Auto) 0.09 (0-0.5) K/uL Baso # (Auto) 0.02 (0-0.2) K/uL Immature Gran # (Auto) 0.03 H (0.00-0.02) K/uL Sodium 136 (136-145) mmol/L Potassium 7.6 H* (3.5-5.1) mmol/L Chloride 102 (98-107) mmol/L Carbon Dioxide 31 (21-32) mmol/L Anion Gap 3.0 (3-11) BUN 64 H (7-18) mg/dl Creatinine 7.66 H* (0.6-1.2) mg/dl Est Cr Clr Drug Dosing Not Reportable Est GFR ( Amer) 5.4 Est GFR (Non-Af Amer) 4.7 BUN/Creatinine Ratio 8.3 L (10-20) Glucose 59 L (70-99) mg/dl Calcium 8.4 L (8.5-10.1) mg/dl Magnesium 2.7 H (1.8-2.4) mg/dl Total Bilirubin 0.4 (0.2-1) mg/dl AST 10 L (15-37) U/L ALT 14 (12-78) U/L Alkaline Phosphatase 91 (45-117) U/L Total Protein 7.3 (6.4-8.2) gm/dl Albumin 3.7 (3.4-5.0) gm/dl Globulin 3.6 (2.5-4.0) gm/dl Albumin/Globulin Ratio 1.0 (0.9-2) TSH 1.180 (0.300-4.500) uIu/ml Urine Color Urine Appearance (Clear) Urine pH (4.5-7.5) Ur Specific [place] (1.000-1.030) Urine Protein (Negative) Urine Glucose (UA) (Negative) Urine Ketones (Negative) Urine Blood (Negative) Urine Nitrite (Negative) Urine Bilirubin (Negative) Urine Urobilinogen (Negative) Ur Leukocyte Esterase (Negative) Urine WBC (Auto) (0-5) /hpf Urine RBC (Auto) (0-4) /hpf U Hyaline Cast (Auto) (0-5) /lpf U Epithel Cells (Auto) (0-5) /lpf Urine Bacteria (Auto) (Negative) Urine Yeast COVID-19 Eval Order Covid19 IDNow at[facility] SARS-CoV-2, RNA, NAAT (NEGATIVE) 06/24/20 06/24/20 06/24/20 Range/Units 15:37 15:45 15:53 WBC (4.8-10.8) K/uL RBC (4.2-5.4) M/uL Hgb (12.0-16.0) g/dL Hct (37-47) % MCV (80-100) fL MCH (25-34) pg MCHC (32-36) g/dL RDW Std Deviation (36.4-46.3) fL RDW Coeff of Jared (11.5-14.5) % Plt Count (130-400) K/uL MPV (7.4-10.4) fL Immature Gran % (Auto) % Neut % (Auto) % Lymph % (Auto) % Hinds % (Auto) % Eos % (Auto) % Baso % (Auto) % Neut # (Auto) (1.4-6.5) K/uL Lymph # (Auto) (1.2-3.4) K/uL Hinds # (Auto) (0.11-0.59) K/uL Eos # (Auto) (0-0.5) K/uL Baso # (Auto) (0-0.2) K/uL Immature Gran # (Auto) (0.00-0.02) K/uL Sodium Cancelled (136-145) mmol/L Potassium Cancelled (3.5-5.1) mmol/L Chloride Cancelled (98-107) mmol/L Carbon Dioxide Cancelled (21-32) mmol/L Anion Gap Cancelled (3-11) BUN Cancelled (7-18) mg/dl Creatinine Cancelled (0.6-1.2) mg/dl Est Cr Clr Drug Dosing Cancelled Est GFR ( Amer) Cancelled Est GFR (Non-Af Amer) Cancelled BUN/Creatinine Ratio Cancelled (10-20) Glucose Cancelled (70-99) mg/dl Calcium Cancelled (8.5-10.1) mg/dl Magnesium (1.8-2.4) mg/dl Total Bilirubin (0.2-1) mg/dl AST (15-37) U/L ALT (12-78) U/L Alkaline Phosphatase (45-117) U/L Total Protein (6.4-8.2) gm/dl Albumin (3.4-5.0) gm/dl Globulin (2.5-4.0) gm/dl Albumin/Globulin Ratio (0.9-2) TSH (0.300-4.500) uIu/ml Urine Color Yellow Urine Appearance Cloudy A (Clear) Urine pH >= 9.0 H (4.5-7.5) Ur Specific [place] 1.014 (1.000-1.030) Urine Protein 2+ H (Negative) Urine Glucose (UA) Negative (Negative) Urine Ketones Negative (Negative) Urine Blood Negative (Negative) Urine Nitrite Negative (Negative) Urine Bilirubin Negative (Negative) Urine Urobilinogen Negative (Negative) Ur Leukocyte Esterase Negative (Negative) Urine WBC (Auto) 1-5 (0-5) /hpf Urine RBC (Auto) 0-4 (0-4) /hpf U Hyaline Cast (Auto) 1-5 (0-5) /lpf U Epithel Cells (Auto) >30 H (0-5) /lpf Urine Bacteria (Auto) 2+ H (Negative) Urine Yeast Not Reportable COVID-19 Eval Order SARS-CoV-2, RNA, NAAT NEGATIVE (NEGATIVE) Administered Medications Discontinued Medications Aspirin (Aspirin 81 Mg Ectab) 81 mg PO QAM [facility] Stop: 07/25/20 08:59 Last Admin: 06/26/20 07:26 Dose: 81 mg Documented by: [id number] Admin: 06/25/20 08:03 Dose: 81 mg Documented by: [id number] Atorvastatin Calcium (Atorvastatin 20 Mg Tab) 20 mg PO HS [facility] Stop: 07/24/20 20:59 Last Admin: 06/25/20 20:53 Dose: 20 mg Documented by: [id number] Admin: 06/24/20 22:25 Dose: 20 mg Documented by: [id number] Calcium Acetate (Calcium Acetate 667 Mg Cap/Tab) 1,334 mg PO TIDM [facility] Stop: 07/25/20 07:59 Last Admin: 06/26/20 11:45 Dose: 1,334 mg Documented by: [id number] Admin: 06/26/20 07:25 Dose: 1,334 mg Documented by: [id number] Admin: 06/25/20 16:59 Dose: 1,334 mg Documented by: [id number] Admin: 06/25/20 12:00 Dose: 1,334 mg Documented by: [id number] Admin: 06/25/20 08:02 Dose: 1,334 mg Documented by: [id number] Calcium Carbonate (Calcium Carbonate 1250mg Tab) 1,250 mg PO QDD ENRIQUETA Stop: 07/25/20 16:29 Last Admin: 06/25/20 16:59 Dose: 1,250 mg Documented by: [id number] Carvedilol (Carvedilol 25 Mg Tab) 25 mg PO BID ENRIQUETA Stop: 07/24/20 20:59 Last Admin: 06/26/20 07:26 Dose: 25 mg Documented by: [id number] Admin: 06/25/20 20:51 Dose: 25 mg Documented by: [id number] Admin: 06/25/20 08:02 Dose: 25 mg Documented by: [id number] Admin: 06/24/20 22:26 Dose: 25 mg Documented by: [id number] Dextrose (Dextrose 50% 50 Ml Syringe) 50 ml IV NOW ONE Stop: 06/24/20 14:59 Last Admin: 06/24/20 15:44 Dose: 50 ml Documented by: [id number] Dextrose (Dextrose 50% 50 Ml Syringe) 50 ml IV NOW ONE Stop: 06/24/20 17:09 Last Admin: 06/24/20 17:12 Dose: 50 ml Documented by: [id number] Dextrose (Dextrose 50% 50 Ml Syringe) Confirm Administered Dose 50 ml IV .STK- MED ONE Stop: 06/24/20 17:10 Last Admin: 06/24/20 17:12 Dose: Not Given Documented by: [id number] Escitalopram Oxalate (Escitalopram Oxalate 20 Mg Tab) 20 mg PO HS ENRIQUETA Stop: 07/24/20 20:59 Last Admin: 06/25/20 20:51 Dose: 20 mg Documented by: [id number] Admin: 06/24/20 22:26 Dose: 20 mg Documented by: [id number] Fenofibrate (Fenofibrate Nanocrystallized 48 Mg Tablet) 48 mg PO DAILY ENRIQUETA Stop: 07/25/20 08:59 Last Admin: 06/26/20 07:26 Dose: 48 mg Documented by: [id number] Admin: 06/25/20 08:03 Dose: 48 mg Documented by: [id number] Gabapentin (Gabapentin 300 Mg Cap) 300 mg PO BID ENRIQUETA Stop: 07/24/20 20:59 Last Admin: 06/26/20 07:26 Dose: 300 mg Documented by: [id number] Admin: 06/25/20 20:53 Dose: 300 mg Documented by: [id number] Admin: 06/25/20 08:03 Dose: 300 mg Documented by: [id number] Admin: 06/24/20 22:26 Dose: 300 mg Documented by: [id number] Heparin Sodium (Porcine) (Heparin Sod (Porcine) 1000 Unit/Ml 10 Ml Vial) 2,000 units IV ONE ONE Stop: 06/24/20 17:37 Last Admin: 06/24/20 22:00 Dose: Not Given Documented by: [id number] Heparin Sodium (Porcine) (Heparin Sod (Porcine) 1000 Unit/Ml 10 Ml Vial) 1,000 units IV Q1H ENRIQUETA Stop: 06/24/20 19:46 Last Admin: 06/24/20 22:01 Dose: Not Given Documented by: [id number] Admin: 06/24/20 22:00 Dose: Not Given Documented by: [id number] Admin: 06/24/20 22:00 Dose: Not Given Documented by: [id number] Heparin Sodium (Porcine) (Heparin Sod 5,000 Unit/0.5 Ml Vial) 5,000 units SQ Q8 ENRIQUETA Stop: 07/24/20 21:59 Last Admin: 06/26/20 07:29 Dose: Not Given Documented by: [id number] Admin: 06/25/20 20:51 Dose: 5,000 units Documented by: [id number] Admin: 06/25/20 16:59 Dose: 5,000 units Documented by: [id number] Admin: 06/25/20 06:14 Dose: 5,000 units Documented by: [id number] Admin: 06/24/20 22:26 Dose: 5,000 units Documented by: [id number] Hydralazine HCl (Hydralazine Hcl 25 Mg Tab) 25 mg PO TID ENRIQUETA Stop: 07/24/20 20:59 Last Admin: 06/26/20 07:26 Dose: 25 mg Documented by: [id number] Admin: 06/25/20 20:52 Dose: 25 mg Documented by: [id number] Admin: 06/25/20 16:59 Dose: 25 mg Documented by: [id number] Admin: 06/25/20 08:02 Dose: 25 mg Documented by: [id number] Admin: 06/24/20 22:25 Dose: 25 mg Documented by: [id number] Sodium Chloride (Nss 1000ml) 1,000 mls @ 125 mls/hr IV .Q8H STA Stop: 06/24/20 22:55 Last Infusion: 06/24/20 18:45 Dose: 0 mls/hr Documented by: [id number] Admin: 06/24/20 15:44 Dose: 125 mls/hr Documented by: [id number] Calcium Gluconate 1,000 mg/ (Sodium Chloride) 60 mls @ 240 mls/hr IV NOW ONE Stop: 06/24/20 15:10 Last Infusion: 06/24/20 16:54 Dose: 0 mls/hr Documented by: [id number] Admin: 06/24/20 15:44 Dose: 240 mls/hr Documented by: [id number] Insulin Human Regular (Novolin-R Insulin Per Unit Charge) 10 units IV NOW STA Stop: 06/24/20 14:59 Last Admin: 06/24/20 15:51 Dose: 10 units Documented by: [id number] Cosigned by: [id number] Levothyroxine Sodium (Levothyroxine Sodium 100 Mcg Tablet) 100 mcg PO DAILYBB ENRIQUETA Stop: 07/25/20 06:29 Last Admin: 06/26/20 07:25 Dose: 100 mcg Documented by: [id number] Admin: 06/25/20 08:01 Dose: 100 mcg Documented by: [id number] Miscellaneous Information (Pharmacy Glycemic Mgmt Consult) 1 ea N/A NOW STA Stop: 06/24/20 17:11 Last Admin: 06/25/20 20:49 Dose: Not Given Documented by: [id number] Pantoprazole Sodium (Pantoprazole 40 Mg Tab) 40 mg PO BID ENRIQUETA Stop: 07/24/20 20:59 Last Admin: 06/26/20 07:26 Dose: 40 mg Documented by: [id number] Admin: 06/25/20 20:53 Dose: 40 mg Documented by: [id number] Admin: 06/25/20 08:03 Dose: 40 mg Documented by: [id number] Admin: 06/24/20 22:25 Dose: 40 mg Documented by: [id number] Patiromer (Patiromer Calcium Sorbitex 8.4 Gm Pack) 8.4 gm PO NOW STA Stop: 06/24/20 15:11 Last Admin: 06/24/20 15:44 Dose: 8.4 gm Documented by: [id number] Prednisone (Prednisone 1 Mg Tab) 4 mg PO DAILY ENRIQUETA Stop: 07/25/20 08:59 Last Admin: 06/26/20 07:29 Dose: 4 mg Documented by: [id number] Admin: 06/25/20 08:03 Dose: 4 mg Documented by: [id number] Discharge Plan Visit Data Chief Complaint: Referred by Doctor Stated Complaint: SHAKING ALL OVER, REF BY ED Provider: Alisson Hauser Discharge Problem: Acute hyperkalemia, Chronic kidney disease, Pulmonary vascular congestion, Hemodialysis status Patient Disposition: Admitted As Inpatient Discharge Instructions Interventions: ED Discharge Assessment Last Done: 06/24/20 17:40 Discharge Problem: Chronic kidney disease Qualifiers: Chronic kidney disease stage: on chronic dialysis Qualified Code(s): N18.6 - End stage renal disease
[2020-06-26 05:50] LABS: BUN Creatinine Ratio 6.8 (10-20); Calcium 8.2 mg/dl (8.5-10.1); Creatinine Clr Calc Pharmacy 12.2 ml/min; Est GFR (African American) 10.6; Est GFR (Non-African American) 9.2; Magnesium 2.3 mg/dl (1.8-2.4); Phosphorus 4.7 mg/dl (2.5-4.9); Potassium 4.9 mmol/L (3.5-5.1)
[2020-06-26] MEDS: CALCIUM ACETATE 667 MG CAP/TAB PO SCH ×2 (07:25→11:45)
[2020-06-26] MEDS: LEVOTHYROXINE SODIUM 100 MCG TABLET PO SCH (07:25)
[2020-06-26] MEDS: carvediloL 25 MG TAB PO SCH (07:26)
[2020-06-26] MEDS: GABAPENTIN 300 MG CAP PO SCH (07:26)
[2020-06-26] MEDS: ASPIRIN 81 MG ECTAB PO SCH (07:26)
[2020-06-26] MEDS: PANTOprazole 40 MG TAB PO SCH (07:26)
[2020-06-26] MEDS: hydrALAZINE HCL 25 MG TAB PO SCH (07:26)
[2020-06-26] MEDS: FENOFIBRATE NANOCRYSTALLIZED 48 MG TABLET PO SCH (07:26)
[2020-06-26] MEDS: predniSONE 1 MG TAB PO SCH (07:29)
[2020-06-26] MEDS: HEPARIN SOD 5,000 UNIT/0.5 ML VIAL SQ SCH (07:29)
--- NOTE | 2020-06-26 09:52 | Hospitalist Progress Note ---
Date of Service June 26, 2020 Assessment & Plan (1) Hyperkalemia, diminished renal excretion: 75 yo F with extensive medical hx significant for ESRD on Hemodialysis (T,,), HFpEF (55-60%), DM2, Polymyalgia Rheumatica, macrocytic anemia, chronic respiratory failure with hypoxia (on 3L NC) who presented to her PCP's office not feeling well with "the shakes" and was promptly sent to the ER after found to have an elevated Cr and K of 7.6. 1. Hyperkalemia in setting of ESRD on Dialysis - received patiromer, insulin + dextrose, calcium gluconate in ER for prompt control - evaluated by nephrology, sent to emergent HD on 06/24, repeat HD on 06/25 for persistent K of 5.5, down from 7.6 on admission - most recent EKG without QRS prolongation, QT prolongation, peaked T waves; improved from prior - patient continues to complain of "shakes" that are most likely fasciculations secondary to electrolyte disturbances - zofran for nausea HFpEF, HTN - CXR on admission without indications of pulmonary edema - no increased SOB, CP, or peripheral edema - continue hydralazine, carvedilol, DM2 - on Detemir 20u BID at home - admitted hypoglycemic to 50s; holding insulin orders for now and monitor for further hypoglycemic episodes until etiology found - appreciate pharmacy's help with glycemic management - goal BSG 120 - 180 Hypothyroidism: - TSH 1.18, WNL - cont levothyroxine 100 mcg daily Chronic respiratory failure with hypoxia: - Restrictive lung disease, on home O2 requirement of 3L NC 24/7 TASH - CPAP at night Polymyalgia rheumatica: - 1 mg prednisone 4x/day. Polyarthritis: - secondary to PMR - PT/OT for needs after hospitalization HLD - cont fenofibrate, statin Depression with Anxiety - cont escitalopram 20 - on ativan 0.5 BID PRN at home Peripheral Neuropathy - cont gabapentin 300 BID DVT ppx: heparin 5000 Q8 FEN/GI: PO fluid intake, renal low K diet, PPI BID Dispo: pending PT/OT evals COde Status: DNR/DNI (2) Chronic respiratory failure with hypoxia: (3) Polymyalgia rheumatica: (4) Morbid obesity with BMI of 40.0-44.9, adult: (5) CHF (congestive heart failure): (6) End-stage renal disease on hemodialysis: (7) Anemia: Admission and Anticipated Discharge Date Admission Date: June 24, 2020 Supervising Physician Co-Signing Physician Notes Attending attestation Pt seen and examined in concert with Dr. Willoughby. In agreement with the documented findings as noted in the resident documentation with any exceptions or additions as noted here. Improved but persistent tremulousness and intermittent spasm noted following dialysis. On examination, S1/S2 nl RRR no MCG. CTAB. Abd NT/ND BS+ve. Palpable fasiculations of the bilateral FA ESRD on HD with hyperkalemia - nephrology consultation - pending repeat dialysis (which would be her scheduled TTS) Else see resident documentation as noted. Results & Data Results & Data ([facility]) Vital Signs (Past 12 Hours) Vital Signs Pulse 06/26/20 00:00 58 L (1) CHF (congestive heart failure) Heart failure chronicity: acute on chronic Heart failure type: unspecified Qualified Code(s): I50.9 - Heart failure, unspecified
--- NOTE | 2020-06-26 09:58 | Electrocardiogram Report ---
Test Reason : Blood Pressure : / mmHG Vent. Rate : 057 BPM Atrial Rate : 057 BPM P-R Int : 186 ms QRS Dur : 098 ms QT Int : 476 ms P-R-T Axes : 047 -59 110 degrees QTc Int : 463 ms Sinus bradycardia Left axis deviation T wave abnormality, consider anterolateral ischemia Poor R wave progression, consider anterior [place] vs. lead placement vs. LVH Abnormal ECG When compared with ECG of 25-JUN-2020 07:17, Nonspecific T wave abnormality, improved in Inferior leads T wave inversion now evident in Anterolateral leads Confirmed by Davon William ([id number]) on 06/26/2020 9:58:11 AM Referred By: REFERRED SELF Confirmed By:Ravi William
--- NOTE | 2020-06-26 10:40 | Nephrology Progress Note ---
Date of Service June 26, 2020 Assessment & Plan (1) Hyperkalemia, diminished renal excretion: - Improved with HD - Low potassium diet reviewed (2) End-stage renal disease (ESRD): - Resume TTS Rx at [facility] post discharge - No need for additional HD today - AVF functioning well - UF goal 2-3 L - EDW 100 kg - Volume status acceptable - Low potassium diet with 1 L/d fluid restriction - Medications appropriate for kidney function (3) Chronic diastolic heart failure: - Volume status acceptable (4) Anemia: - Chronic, stable. Maintained on Micera as outpatient. Admission and Anticipated Discharge Date Admission Date: June 24, 2020 Subjective Tolerated HD yesterday without complications. Completed 3 hours with UF 2 L. Fasciculations/tremor resolved. She is breathing comfortably. Back pain improved. No GI symptoms. No chest pain. No fevers or chills. Shirley would like to go home today. Review of Systems Review of Systems: All systems reviewed & are unremarkable except as noted in HPI & below Physical Exam Constitutional: well developed and + obese; no acute distress Eyes: + anicteric sclerae; no corneal abnormality ENMT: Mouth: no oral mucosal abnormality and oral mucous membranes not dry Neck: normal visual inspection and trachea midline Respiratory: normal respiratory effort Auscultation: lungs clear to auscultation bilaterally Cardiovascular: Rate/Rhythm: regular rate Heart Sounds: normal S1, normal S2 and + murmur Extremities: + AV fistula; no edema (dependent) Gastrointestinal (Abdomen): Percussion/Palpation: abdomen soft; abdomen nontender Musculoskeletal: Extremities: no cyanosis and no clubbing Skin: normal turgor; no rashes Neurologic: Motor/Sensory: no tremor and no asterixis Psychiatric: Orientation: alert and oriented x 3 Results & Data ([facility]) Vital Signs (Past 12 Hours) Vital Signs Pulse 06/26/20 00:00 58 L Laboratory Results Laboratory Results - last 24 hr 06/25/20 06/26/20 11:31 04:53 Sodium 140 Potassium 4.9 Chloride 106 Carbon Dioxide 33 H Anion Gap 1.0 L BUN 30 H Creatinine 4.40 H D Est Cr Clr Drug Dosing 12.2 Est GFR ( Amer) 10.6 Est GFR (Non-Af Amer) 9.2 BUN/Creatinine Ratio 6.8 L Glucose 82 POC Glucose 124 H Calcium 8.2 L Phosphorus 4.7 Magnesium 2.3 PG Care Time/CCT Total # of Minutes Spent Total Time Spent with Patient: Total time spent is greater than 50% in coordination of care (as documented) at patient's floor/unit and/or counseling patient: Coding Level of Care Code 80501 Subseq Hosp Care Lvl 3 Diagnoses Hyperkalemia, diminished renal excretion E87.5 End-stage renal disease (ESRD) N18.6 Chronic diastolic heart failure I50.32 Anemia D64.9
[2020-06-26] MEDS ORDERED: DEXTROSE 50% 50 ML SYRINGE IV PRN (12:48)
[2020-06-26] MEDS ORDERED: GLUCOSE 10 TABS/TUBE PO PRN (12:48)
[2020-06-26] MEDS ORDERED: GLUCAGON FOR INJ 1 MG VIAL SQ PRN (12:48)
[2020-06-26] MEDS ORDERED: CARBOHYDRATES FOR HYPOGLYCEMIA PO PRN (12:48)
[2020-06-26] MEDS ORDERED: GLUCOSE 40% GEL 15 GM TUBE PO PRN (12:48)
[2020-06-26] MEDS ORDERED: INSULIN ASPART 100 UNITS/ML 3 ML PEN SC SCH (16:30)
--- NOTE | 2020-06-26 19:06 | History & Physical Bridge Note ---
Date of Service June 26, 2020 Supervising Physician Co-Signing Physician Notes Attending attestation For full documentation for day of discharge, see d/c summary with Dr. Willoughby. Resolution of tremulousness and fasciculations, patient returned to baseline well. On examination, S1/S2 nl RRR no MCG. CTAB. Abd NT/ND BS+ve. ESRD on HD with hyperkalemia - nephrology consultation - following dialysis and discussion of status with nephrology, return to TTS schedule as normal. Counseling re: dietary intervention and support of dialysis to avoid repeat incident.
--- NOTE | 2020-06-26 19:52 | Discharge Summary ---
Date of Service June 26, 2020 Admission HPI Per Admitting Provider 74-year-old female with a past medical history significant for restrictive lung disease (hypoventilation syndrome from obesity), HfPref, left bundle branch block, ESRD on HD, anxiety with depression, diabetic retinopathy, dyslipidemia, GERD/upper motility disorder, insomnia, TASH, PMR, hypothyroidism, CAD, diabetes mellitus and hypertension. The patient reports that she has been feeling relatively unwell over the past month. She has been having an increase in her back pain that has made walking much more difficult and the pain is extending down to her legs, which have resulted in increased falls; she is also experiencing "uncontrollable tremors/twitching", and increase in diarrhea. Due to her limited gait and labs patient was referred to the ER for further work-up. In the ER the patient was noted to be hypoglycemic (59), and Hyperkalemic (7.6). Patient was treated for hyperkalemia with Calcium Gluconate (1 GM), Dextrose (1 amp), IV insulin (1o units), and Patiromer (8.4Gm). Patient will be admitted for dialysis session now, and continued work up of her PMR, weakness, and diarrhea which is consistent per her report to her hospitalization in January. Admission Exam Per Admitting Provider PHYSICAL EXAM: General: awake, alert, no apparent distress Head: Normocephalic, atraumatic ENT: PERRL, EOMI, no pharyngeal exudate, mucous membranes moist Neuro: AAO x 3, speech clear and appropriate, strength intact bilaterally 5/5 upper; 4/5 lower extremity, sensation intact upper; nuropathy to mid calf bilaterally lowers, but equal, normal Babinski. Uncontrolled bilaterall upper extremity twitch, not rythmic, not repetitive, not predictable. No overshoot with finger to nose, lower extremity ataxia difficult to perform. Chest: equal rise and fall of the chest, no accessory muscle use, no heaves or thirlls, Clear to auscultation, on room air, Cardiac: Regular rate and rhythm, telelmetry reviewed, skin warm dry, cap refill <3 seconds, peripheral pusles +2 no JVD, no murmur, no JVD, no edema GI: NABS x 4 quadrants, soft, nontender to palpation, no rebound, guarding or tenderness : Spontaneously voiding (patient reports minimal urine), no pain, no CVA tenderness, Extremities: Normal inspection, no peripheral edema or erythema, calfs nontender to palpation Psych: Normal mood and affect cits Skin: no rash or erythema Principal Diagnosis Hyperkalemia Discharge Exam Constitutional: obese, in no apparent distress, sitting comfortably in bedside chair Cardiac: RRR, no murmurs, gallops or rubs. Normal S1, S2 Pulm: CTA BL, no wheezes, rhonchi, crackles or rubs, moving air well throughout both lungs Abd: soft, nontender, distended, normal bowel sounds, no rebound or guarding Extremity: intact left dialysis catheter with audible bruit Psych: anxious to go home Discharge Data Allergies Allergy/AdvReac Type Severity Reaction Status Date / Time lisinopril AdvReac Intermediate cough Verified 06/24/20 11:38 Consultations 06/24/20 15:11 Consult Nephrology Stat ED Decision to Admit Stat 06/24/20 18:58 Consult Neurology Routine Ordered Studies 06/24/20 13:44 CT head/brain wo con Stat Hospital Course (1) Hyperkalemia, diminished renal excretion: 75 yo F with extensive medical hx significant for ESRD on Hemodialysis (T,TH,Sa), HFpEF (55-60%), DM2, Polymyalgia Rheumatica, macrocytic anemia, chronic respiratory failure with hypoxia (on 3L NC) who presented to her PCP's office not feeling well with "the shakes" and was promptly sent to the ER after found to have an elevated Cr and K of 7.6. Hyperkalemia in setting of ESRD on Dialysis Hyperkalemia resulted in visible fasciculations of bilateral upper extremities and chest wall muscles. Symptoms resolved after emergent and scheduled hemodialysis. K 4.9 on discharge. Discussed low potassium diet and reading nutrition labels. All other chronic medical conditions managed per home regimen. (2) Chronic respiratory failure with hypoxia: (3) Polymyalgia rheumatica: (4) Morbid obesity with BMI of 40.0-44.9, adult: (5) CHF (congestive heart failure): (6) End-stage renal disease on hemodialysis: (7) Anemia: Total Time Total Time Spent Total Time Spent (In Minutes): see attending attestation Discharge Plan Discharge Items Patient Disposition: Home - Self-Care Reason For Visit: HYPERKALEMIA, DECREASE FUNTIONAL STATUS Discharge Diagnosis: hyperkalemia Activity: Resume your previous activity Non-emergency contact: Primary Care Provider Call non-emergency contact if: your symptoms worsen Follow-up/Referrals: Julito Burt MD [Primary Care Provider] - 07/03/20 10:15 am (Dr. Burt is unavailable. Please follow up with Archana Cedeño PA-C on Wednesday07/03/20 at 10:15 am. Please arrive to the office 15 minutes early for your appointment. If you are unable to keep this appointment, please call the office to reschedule at [phone].) Diet: Dialysis Renal and Low Potassium (2gm) Addtl Attending Provider Instructions: You were seen in the hospital for shaking and weakness that was due to your elevated potassium levels. This was controlled and decreased with multiple rounds of dialysis and medications. We talked extensively about how your shakes were secondary to your electrolyte changes and how your body needs to be in a certain range in order function properly and make you feel better. Monitoring your food intake to be low in salt AND low in potassium will be critical in making sure that you stay outside of the hospital. Continue taking your medications as before and continue going to your regular dialysis appointments. Call your primary care provider if you have questions regarding your care or resources available to help you stay on track with your diet. In the hospital physical therapy recommend you continue using their services at home to gain strength. Pending Studies at Discharge: No Stand-Alone Forms: My [facility] [employer], Smoking Cessation Medications and DC Order Prescriptions: Continued (DME) OneTouch Ultra Blue Test Strip Strip See Rx Instructions .ROUTE .MEDSUPPLY Qty: 100 RF: 5 (DME) pen needle, diabetic [BD Ultra-Fine Short Pen Needle] 31 gauge x 5/16" needle See Dose Instructions .ROUTE .MEDSUPPLY Qty: 60 RF: 5 hydralazine 25 mg tablet 25 mg PO TID 90 Days Qty: 270 RF: 1 escitalopram oxalate [Lexapro] 20 mg tablet 20 mg PO HS Qty: 90 RF: 3 gabapentin 300 mg capsule 300 mg PO BID Qty: 60 RF: 5 atorvastatin 20 mg tablet 20 mg PO HS Qty: 90 RF: 3 Hold Instructions: muscle pain carvedilol 25 mg tablet 25 mg PO BID Qty: 180 RF: 3 pantoprazole 40 mg tablet,delayed release (DR/EC) 40 mg PO BID 90 Days Qty: 180 RF: 3 levothyroxine 100 mcg tablet 100 mcg PO DAILY Qty: 90 RF: 3 Levemir FlexTouch U-100 Insuln 100 unit/mL (3 mL) insulin pen 20 unit subcut BID Qty: 15 RF: 5 prednisone 1 mg tablet 4 mg PO DAILY Qty: 120 RF: 2 fenofibrate nanocrystallized [Tricor] 48 mg tablet 48 mg PO DAILY Qty: 90 RF: 2 lorazepam 0.5 mg tablet 0.5 mg PO BID PRN (Reason: anxiety; difficulty swallowing) Qty: 30 RF: 0 magnesium oxide 400 mg magnesium capsule 400 mg PO QAM RF: 0 calcium carbonate [Calcium 500] 500 mg calcium (1,250 mg) tablet 500 mg PO QDD RF: 0 acetaminophen [Tylenol Extra Strength] 500 mg Tablet 1,000 mg PO Q6H PRN (Reason: Pain) RF: 0 ProRenal 8 mg iron-800 mcg-1,000 unit tablet 1 tab PO QDL RF: 0 (DME) Oxygen Home Liters Per Minute See Rx Instructions .ROUTE .MEDSUPPLY Qty: 1 RF: 0 ondansetron HCl 8 mg tablet 8 mg PO Q8H PRN (Reason: Nausea) RF: 0 aspirin 81 mg Tablet,Delayed Release (Dr/Ec) 81 mg PO QAM RF: 0 calcium acetate(phosphat bind) 667 mg capsule 1,334 mg PO TIDM RF: 0 Discharge Orders: Discharge Order (Routine); Ordered 06/26/20 Ordered By: Stephenie Willoughby Admission Data Admit Date/Time: 06/24/20 15:56 Attending Provider: Sinan Leone Admit Provider: Liberty Stevens Primary Care Provider: Julito Burt Other Providers: Hugo Patrick ; Liberty Stevens ; Stephenie Willoughby Other Interventions: Discharge Summary Assessment (RN) Last Done: 06/26/20 14:16 Resident Activity Tracking Resident Involvement: Resident Care Provided Care Provided: Adult Hospital Medicine
== END 2020-06-26 15:15 | disposition home or self-care (01) | DRG 640 ==
LOC: ED 12:58 → 1E 15:56 → SUATTDRO 15:56 → 1E 17:40

== ENCOUNTER 2020-08-05 09:32 | Inpatient (IN) ==
[2020-08-05] MEDS ORDERED: CEFEPIME 2,000 MG/20 ML VIAL IV STA (10:19)
--- NOTE | 2020-08-05 10:23 | Emergency Department Note ---
Impression & Plan Acute UTI, Flu-like symptoms, Nausea, Failure of outpatient treatment, Hypertension ED Provider Note NAME: LITO MOHR AGE: 75 SEX: F : 1945 ARRIVES VIA: Walk-In INFORMANT: [Patient] ED PROVIDER(S): [Derek Verde MD] CHIEF COMPLAINT: UTI HISTORY OF PRESENT ILLNESS: The patient is a 75-year-old female who is on dialysis. She was last dialyzed on Wednesday, she is due tomorrow. Patient states that she has had 4 days of nausea, headache, body aches, chills and weakness. She vomited one time initially when her symptoms began. The patient describes all her body pain is an 8/10. Patient states that she did see her doctor's office, a urinary sample was done on 30 July, 6 days ago. This grew E. coli. She was initially placed on Bactrim but was not getting better, she is now on Macrobid and is not getting better. She was referred to the ED by her doctor today. There has been no fever. She has not had abdominal pain. She states that she has been septic before from urinary infections. Despite her dialysis, she still makes a small amount of urine. She typically wears 3 L of oxygen at nighttime and during exertion, at rest, she oftentimes does not need O2. REVIEW OF SYSTEMS: See HPI for pertinent positives and negatives. A total of ten systems were reviewed and were otherwise negative. PMHx/PSHx: See Below SOCIAL HISTORY: See Below. PHYSICAL EXAM: GENERAL: Patient is in no acute distress. HEENT: No acute trauma, normocephalic atraumatic, mucous membranes moist, no nasal congestion, no scleral icterus. NECK: No stridor, no adenopathy, no meningismus, trachea is midline. LUNGS: Clear to auscultation bilaterally, no wheeze, no rhonchi, breath sounds equal. HEART: 2 or 6 systolic murmur, somewhat irregular rhythm. Normal rate. ABDOMEN: Soft, nontender, bowel sounds positive, no hernias, no peritonitis. EXTREMITIES: No cyanosis, mild bilateral pedal edema, full range of motion of all the joints without pain or difficulty, no signs for acute trauma. There is a fistula in the right upper extremity. NEUROLOGIC: Oriented x 3, no acute motor or sensory deficits, no focal weakness. SKIN: No rash, no jaundice, no diaphoresis. DIFFERENTIAL DIAGNOSIS: Sepsis, UTI, pneumonia, metabolic abnormality, electrolyte abnormalities, cardiac sources, cellulitis, UTI, bacteremia, intracerebral event, toxicologic etiology, neurologic event, as well as other pathologies. EMERGENCY DEPARTMENT COURSE/PROCEDURES: ECG: Indication was weakness. The ECG shows a sinus bradycardia with a rate of 56. There is some baseline artifact. The QTc is 457. There is no ST elevation, no PVCs. Some poor R wave progression was noted. Continuous Cardiac Monitoring: An order was placed for continuous cardiac monitoring. The monitor shows a rate of 54 with sinus bradycardia. MEDICAL DECISION MAKING: There is no leukocytosis. The patient is mildly anemic. There is a normal platelet count. Creatinine is quite high at 7.37 however, the patient has a history of a dialysis need. No concerning electrolyte abnormality in need of emergent correction. Lactic acid level is not elevated making sepsis less likely. No worrisome liver enzyme elevation. ECG shows a sinus bradycardia, no acute ischemia. Cardiac enzyme testing x1 is slightly elevated however, the patient has a history of the same and her value today is baseline I suspect. Today's urinalysis shows protein, contamination was suspected based on the urinalysis results. Covid testing returned negative. Chest film did not show pneumonia or CHF. The patient's urine culture from 6 days ago grew E. coli. It was relatively sensitive. The patient received IV cefepime as antibiotic coverage. Based on her urine culture results, the cefepime should be effective. She received IV Zofran for nausea. She was given IV hydralazine for her higher blood pressure. She was given oral Tylenol for her headache. The patient presents as a failure of outpatient therapy. She has been on 2 different antibiotics for her UTI and still has flulike symptoms and feels quite unwell. She has been septic in the past as result of a UTI. I do think a hospital stay and IV antibiotic therapy would be warranted. The patient is currently resting. She feels improved. I did speak with case management, the on-call hospitalist has been consulted. Past Med/Surg History Medical History Acute hyperkalemia Anemia Arthritis Coronary artery disease Depression with anxiety Diabetes Diabetes mellitus Diabetic retinopathy Dyslipidemia End-stage renal disease on hemodialysis GERD without esophagitis Hernia, hiatal History of thrombophlebitis Hypertension Hypothyroidism Insomnia Laceration of left lower extremity Macular puckering, bilateral Obstructive sleep apnea Panniculitis Paresthesias Polyarthritis Tubular adenoma of colon URI (upper respiratory infection) Vitamin D deficiency Surgical History H/O: hysterectomy History of bladder surgery History of cataract surgery History of nasal septoplasty S/P arteriovenous (AV) fistula creation S/P hysterectomy S/P repair of paraesophageal hernia S/P rotator cuff repair Family History Mother Leukemia Cerebral aneurysm Hypertension Anxiety Diabetes Grandmother Hypertension Father Osteoarthritis COPD (chronic obstructive pulmonary disease) Diabetes Sister Diabetes Myocardial infarction COPD (chronic obstructive pulmonary disease) Brother Myocardial infarction Diabetes Denies family history of Ovarian cancer Prostate cancer Breast cancer Colorectal cancer Social History Smoking Status: Never smoker Second Hand Exposure: No; Hx Alcohol Use: No Hx Substance Use: No Preferred Language: Danish Communication Ability: Effective Visual Impairment: No Limitations Hearing Ability: Normal Acds Block 1 Operator Required: No Beliefs That Will Affect Care: None marital status: Current Living Situation: Spouse current occupational status: retired Feels Safe at Home: Yes Safety Concerns: Feels Safe At This Time Dental Care, Regularly: No Physical Activity Frequency: 1-2 Times per Week Seatbelt Use: always Assistive Devices: Walker Allergies Allergies Allergy/AdvReac Type Severity Reaction Status Date / Time lisinopril AdvReac Intermediate cough Verified 07/30/20 14:15 Home Meds Home Medications Medication Instructions Recorded Confirmed aspirin 81 mg PO QAM 06/16/18 08/05/20 calcium acetate(phosphat bind) 1,334 mg PO TIDM 07/26/18 08/05/20 magnesium oxide 400 mg PO QAM cap 12/20/18 08/05/20 calcium carbonate 500 mg calcium 500 mg PO QDD 08/10/19 08/05/20 (1,250 mg) tablet acetaminophen [Tylenol Extra 1,000 mg PO Q6H PRN 11/07/19 08/05/20 Strength] ProRenal 1 tab PO QDL 02/27/20 08/05/20 ondansetron HCl 8 mg PO Q8H PRN 06/24/20 08/05/20 blood sugar diagnostic ea 07/30/20 bupropion HCl 75 mg PO QPM 08/05/20 08/05/20 fenofibrate nanocrystallized 48 mg PO QPM 08/05/20 08/05/20 [Tricor] levothyroxine 100 mcg PO QPM 08/05/20 08/05/20 Previous Rx's Medication Instructions Recorded pen needle, diabetic 31 gauge x #60 ea 07/20/1910/13" Oxygen Home #1 ea 02/29/20 atorvastatin 20 mg tablet 20 mg PO HS #90 tab 05/09/20 carvedilol 25 mg tablet 25 mg PO BID #180 tab 05/09/20 pantoprazole 40 mg tablet,delayed 40 mg PO BID 90 Days #180 tab 05/09/20 release insulin detemir U-100 100 unit/mL 20 unit SUBCUT BID #15 ml 05/14/20 (3 mL) subcutaneous pen prednisone 1 mg tablet 4 mg PO DAILY #120 tab 05/22/20 lorazepam 0.5 mg tablet 0.5 mg PO BID PRN #30 tab 06/28/20 tramadol 50 mg tablet 50 mg PO BID #60 tab 07/23/20 escitalopram oxalate 20 mg tablet 20 mg PO HS #30 tab 07/30/20 hydralazine 25 mg tablet 25 mg PO TID 90 Days #270 tab 08/01/20 nitrofurantoin 100 mg PO BID #10 cap 08/02/20 monohydrate/macrocrystals 100 mg capsule Results & Data (ED) Vital Signs Vital Signs - 24 hr 08/05/20 09:34 08/05/20 10:19 08/05/20 11:23 Temperature 36.5 C Temperature Source Temporal Artery Scan Pulse Rate 57 L 54 L Pulse Rate from SpO2 Sensor 54 L Respiratory Rate 18 14 Respiratory Effort / Characteristics Non-Labored Spontaneous Non-Labored Spontaneous Respiratory Depth Normal Blood Pressure 219/93 H 222/86 H Blood Pressure Mean 135 131 Blood Pressure Position Sitting Pulse Oximetry 93 94 94 Oxygen Delivery Method Room Air Room Air Sepsis Recent Fever Within 48 Hours No Sepsis New/Unexplained Change in Mental Status N/A Sepsis Action Taken by Nursing No Action Required 08/05/20 11:38 08/05/20 12:00 08/05/20 12:01 Temperature Temperature Source Pulse Rate 55 L 59 L Pulse Rate from SpO2 Sensor 55 L 54 L Respiratory Rate 10 L 13 Respiratory Effort / Characteristics Respiratory Depth Blood Pressure 204/76 H Blood Pressure Mean 118 Blood Pressure Position Pulse Oximetry 94 93 93 Oxygen Delivery Method Room Air Sepsis Recent Fever Within 48 Hours Sepsis New/Unexplained Change in Mental Status Sepsis Action Taken by Nursing 08/05/20 12:30 08/05/20 13:00 Temperature Temperature Source Pulse Rate 58 L 57 L Pulse Rate from SpO2 Sensor 58 L 58 L Respiratory Rate 12 18 Respiratory Effort / Characteristics Respiratory Depth Blood Pressure Blood Pressure Mean Blood Pressure Position Pulse Oximetry 94 96 Oxygen Delivery Method Sepsis Recent Fever Within 48 Hours Sepsis New/Unexplained Change in Mental Status Sepsis Action Taken by Usp Medications Current Medication List: was personally reviewed by me Laboratory Data Attestation: I reviewed the patient's lab results. Result diagrams: 08/05/20 11:00 08/05/20 11:00 Lab Results 08/05/20 08/05/20 08/05/20 Range/Units 11:00 11:00 11:00 WBC 6.44 (4.8-10.8) K/uL RBC 3.44 L (4.2-5.4) M/uL Hgb 11.3 L (12.0-16.0) g/dL Hct 35.6 L (37-47) % MCV 103.5 H (80-100) fL MCH 32.8 (25-34) pg MCHC 31.7 L (32-36) g/dL RDW Std Deviation 57.5 H (36.4-46.3) fL RDW Coeff of Jared 15.3 H (11.5-14.5) % Plt Count 199 (130-400) K/uL MPV 9.6 (7.4-10.4) fL Immature Gran % (Auto) 0.2 % Neut % (Auto) 72.7 % Lymph % (Auto) 14.1 % Harvey % (Auto) 11.3 % Eos % (Auto) 1.4 % Baso % (Auto) 0.3 % Neut # (Auto) 4.68 (1.4-6.5) K/uL Lymph # (Auto) 0.91 L (1.2-3.4) K/uL Harvey # (Auto) 0.73 H (0.11-0.59) K/uL Eos # (Auto) 0.09 (0-0.5) K/uL Baso # (Auto) 0.02 (0-0.2) K/uL Immature Gran # (Auto) 0.01 (0.00-0.02) K/uL PT Cancelled INR Cancelled APTT Cancelled PTT Ratio Cancelled Sodium 138 (136-145) mmol/L Potassium 4.3 (3.5-5.1) mmol/L Chloride 98 (98-107) mmol/L Carbon Dioxide 29 (21-32) mmol/L Anion Gap 11.0 (3-11) BUN 31 H (7-18) mg/dl Creatinine 7.37 H* (0.6-1.2) mg/dl Est Cr Clr Drug Dosing 7.3 ml/min Est GFR ( Amer) 5.7 Est GFR (Non-Af Amer) 4.9 BUN/Creatinine Ratio 4.2 L (10-20) Glucose 129 H (70-99) mg/dl Lactate (0.4-2.0) mmol/L Calcium 9.1 (8.5-10.1) mg/dl Magnesium 2.9 H (1.8-2.4) mg/dl Total Bilirubin 0.4 (0.2-1) mg/dl AST 44 H (15-37) U/L ALT 29 (12-78) U/L Alkaline Phosphatase 57 (45-117) U/L Troponin I 0.249 H* (0-0.045) ng/ml Total Protein 6.9 (6.4-8.2) gm/dl Albumin 3.7 (3.4-5.0) gm/dl Globulin 3.2 (2.5-4.0) gm/dl Albumin/Globulin Ratio 1.2 (0.9-2) Procalcitonin (0-0.5) ng/ml Urine Color Urine Appearance (Clear) Urine pH (4.5-7.5) Ur Specific Mccracken (1.000-1.030) Urine Protein (Negative) Urine Glucose (UA) (Negative) Urine Ketones (Negative) Urine Blood (Negative) Urine Nitrite (Negative) Urine Bilirubin (Negative) Urine Urobilinogen (Negative) Ur Leukocyte Esterase (Negative) Urine WBC (Auto) (0-5) /hpf Urine RBC (Auto) (0-4) /hpf U Hyaline Cast (Auto) (0-5) /lpf U Epithel Cells (Auto) (0-5) /lpf Urine Bacteria (Auto) (Negative) Urine Yeast COVID-19 Eval Order SARS-CoV-2 (PCR) (Negative) Influenza Type A (PCR) (Neg) Influ A Molecular Assay (Negative) Influenza Type B (PCR) (Neg) Influ B Molecular Assay (Negative) RSV (RT-PCR) (Neg) 08/05/20 08/05/20 08/05/20 Range/Units 11:00 11:00 11:05 WBC (4.8-10.8) K/uL RBC (4.2-5.4) M/uL Hgb (12.0-16.0) g/dL Hct (37-47) % MCV (80-100) fL MCH (25-34) pg MCHC (32-36) g/dL RDW Std Deviation (36.4-46.3) fL RDW Coeff of Jared (11.5-14.5) % Plt Count (130-400) K/uL MPV (7.4-10.4) fL Immature Gran % (Auto) % Neut % (Auto) % Lymph % (Auto) % Harvey % (Auto) % Eos % (Auto) % Baso % (Auto) % Neut # (Auto) (1.4-6.5) K/uL Lymph # (Auto) (1.2-3.4) K/uL Harvey # (Auto) (0.11-0.59) K/uL Eos # (Auto) (0-0.5) K/uL Baso # (Auto) (0-0.2) K/uL Immature Gran # (Auto) (0.00-0.02) K/uL PT INR APTT PTT Ratio Sodium (136-145) mmol/L Potassium (3.5-5.1) mmol/L Chloride (98-107) mmol/L Carbon Dioxide (21-32) mmol/L Anion Gap (3-11) BUN (7-18) mg/dl Creatinine (0.6-1.2) mg/dl Est Cr Clr Drug Dosing ml/min Est GFR ( Amer) Est GFR (Non-Af Amer) BUN/Creatinine Ratio (10-20) Glucose (70-99) mg/dl Lactate 1.0 (0.4-2.0) mmol/L Calcium (8.5-10.1) mg/dl Magnesium (1.8-2.4) mg/dl Total Bilirubin (0.2-1) mg/dl AST (15-37) U/L ALT (12-78) U/L Alkaline Phosphatase (45-117) U/L Troponin I (0-0.045) ng/ml Total Protein (6.4-8.2) gm/dl Albumin (3.4-5.0) gm/dl Globulin (2.5-4.0) gm/dl Albumin/Globulin Ratio (0.9-2) Procalcitonin 0.29 (0-0.5) ng/ml Urine Color Dark Yellow Urine Appearance Cloudy A (Clear) Urine pH >= 9.0 H (4.5-7.5) Ur Specific Mccracken 1.018 (1.000-1.030) Urine Protein 3+ H (Negative) Urine Glucose (UA) Negative (Negative) Urine Ketones Trace H (Negative) Urine Blood Trace H (Negative) Urine Nitrite Negative (Negative) Urine Bilirubin Negative (Negative) Urine Urobilinogen Negative (Negative) Ur Leukocyte Esterase Negative (Negative) Urine WBC (Auto) 1-5 (0-5) /hpf Urine RBC (Auto) 0-4 (0-4) /hpf U Hyaline Cast (Auto) 1-5 (0-5) /lpf U Epithel Cells (Auto) >30 H (0-5) /lpf Urine Bacteria (Auto) 1+ H (Negative) Urine Yeast Not Reportable COVID-19 Eval Order SARS-CoV-2 (PCR) (Negative) Influenza Type A (PCR) (Neg) Influ A Molecular Assay (Negative) Influenza Type B (PCR) (Neg) Influ B Molecular Assay (Negative) RSV (RT-PCR) (Neg) 08/05/20 08/05/20 08/05/20 Range/Units 11:25 11:25 11:25 WBC (4.8-10.8) K/uL RBC (4.2-5.4) M/uL Hgb (12.0-16.0) g/dL Hct (37-47) % MCV (80-100) fL MCH (25-34) pg MCHC (32-36) g/dL RDW Std Deviation (36.4-46.3) fL RDW Coeff of Jared (11.5-14.5) % Plt Count (130-400) K/uL MPV (7.4-10.4) fL Immature Gran % (Auto) % Neut % (Auto) % Lymph % (Auto) % Harvey % (Auto) % Eos % (Auto) % Baso % (Auto) % Neut # (Auto) (1.4-6.5) K/uL Lymph # (Auto) (1.2-3.4) K/uL Harvey # (Auto) (0.11-0.59) K/uL Eos # (Auto) (0-0.5) K/uL Baso # (Auto) (0-0.2) K/uL Immature Gran # (Auto) (0.00-0.02) K/uL PT INR APTT PTT Ratio Sodium (136-145) mmol/L Potassium (3.5-5.1) mmol/L Chloride (98-107) mmol/L Carbon Dioxide (21-32) mmol/L Anion Gap (3-11) BUN (7-18) mg/dl Creatinine (0.6-1.2) mg/dl Est Cr Clr Drug Dosing ml/min Est GFR ( Amer) Est GFR (Non-Af Amer) BUN/Creatinine Ratio (10-20) Glucose (70-99) mg/dl Lactate (0.4-2.0) mmol/L Calcium (8.5-10.1) mg/dl Magnesium (1.8-2.4) mg/dl Total Bilirubin (0.2-1) mg/dl AST (15-37) U/L ALT (12-78) U/L Alkaline Phosphatase (45-117) U/L Troponin I (0-0.045) ng/ml Total Protein (6.4-8.2) gm/dl Albumin (3.4-5.0) gm/dl Globulin (2.5-4.0) gm/dl Albumin/Globulin Ratio (0.9-2) Procalcitonin (0-0.5) ng/ml Urine Color Urine Appearance (Clear) Urine pH (4.5-7.5) Ur Specific Mccracken (1.000-1.030) Urine Protein (Negative) Urine Glucose (UA) (Negative) Urine Ketones (Negative) Urine Blood (Negative) Urine Nitrite (Negative) Urine Bilirubin (Negative) Urine Urobilinogen (Negative) Ur Leukocyte Esterase (Negative) Urine WBC (Auto) (0-5) /hpf Urine RBC (Auto) (0-4) /hpf U Hyaline Cast (Auto) (0-5) /lpf U Epithel Cells (Auto) (0-5) /lpf Urine Bacteria (Auto) (Negative) Urine Yeast COVID-19 Eval Order CovFluRsv at [facility] SARS-CoV-2 (PCR) NEGATIVE (Negative) Influenza Type A (PCR) Negative (Neg) Influ A Molecular Assay Negative (Negative) Influenza Type B (PCR) Negative (Neg) Influ B Molecular Assay Negative (Negative) RSV (RT-PCR) Negative (Neg) Administered Medications Hydralazine HCl (Hydralazine Hcl 25 Mg Tab) 25 mg PO TID ENRIQUETA Stop: 09/04/20 13:59 Last Admin: 08/05/20 14:34 Dose: 25 mg Documented by: [id number] Insulin Aspart (Insulin Aspart 100 Units/Ml 3 Ml Pen) 0 units SC ACHS ENRIQUETA Stop: 09/04/20 16:29 Last Admin: 08/05/20 16:55 Dose: Not Given Documented by: [id number] Cosigned by: [id number] Discontinued Medications Acetaminophen (Acetaminophen 500 Mg Tab) 1,000 mg PO NOW STA Stop: 08/05/20 12:51 Last Admin: 08/05/20 13:09 Dose: 1,000 mg Documented by: [id number] Hydralazine HCl (Hydralazine Hcl 20 Mg/Ml Vial) 10 mg IV NOW STA Stop: 08/05/20 11:48 Last Admin: 08/05/20 12:00 Dose: 10 mg Documented by: [id number] Cefepime HCl (Maxipime) 2,000 mg in 20 mls @ 5 mls/min IV NOW STA; Protocol Stop: 08/05/20 10:22 Last Admin: 08/05/20 11:23 Dose: 5 mls/min Documented by: [id number] Ondansetron HCl (Ondansetron Inj 2 Mg/Ml 2 Ml Vial) 4 mg IV NOW STA Stop: 08/05/20 11:39 Last Admin: 08/05/20 11:59 Dose: 4 mg Documented by: [id number] Tramadol HCl (Tramadol Hcl 50 Mg Tablet) Confirm Administered Dose 50 mg .ROUTE .STK-MED ONE Stop: 08/05/20 14:31 Last Admin: 08/05/20 14:31 Dose: 50 mg Documented by: [id number] Imaging Data Radiologist's Impression: XR chest 1V portable CLINICAL HISTORY: SEPSIS COMPARISON STUDY: 06/24/2020 FINDINGS: The heart is mildly enlarged. There is a stable lobulated contour the right hemidiaphragm. There is no failure. There is no focal pulmonary consolidation. There are no pleural effusions.[ IMPRESSION: Mild cardiomegaly. No acute findings. Discharge Plan Visit Data Chief Complaint: Urinary Symptoms Stated Complaint: DOC REF UTI NOT RESPONDING TO MEDS BOB GARCIA ED Provider: Derek Verde Discharge Problem: Acute UTI, Flu-like symptoms, Nausea, Failure of outpatient treatment, Hypertension Patient Disposition: Admitted As Inpatient Condition: Fair Discharge Problem: Hypertension Qualifiers: Hypertension type: unspecified Qualified Code(s): I10 - Essential (primary) hypertension
--- NOTE | 2020-08-05 10:43 | XRay Report ---
XR chest 1V portable CLINICAL HISTORY: SEPSIS COMPARISON STUDY: 06/24/2020 FINDINGS: The heart is mildly enlarged. There is a stable lobulated contour the right hemidiaphragm. There is no failure. There is no focal pulmonary consolidation. There are no pleural effusions.[ IMPRESSION: Mild cardiomegaly. No acute findings. ACT 112: Negative or not required by law. Electronically signed by: Oscar Santa M.D. 08/05/2020 10:41 AM
[2020-08-05 11:19] LABS: Basophils # (auto) 0.02 K/uL (0-0.2); Basophils % (auto) 0.3 %; Eosinophils # (auto) 0.09 K/uL (0-0.5); Eosinophils % (auto) 1.4 %; Hematocrit (blood only) 35.6 % (37-47); Hemoglobin 11.3 g/dL (12.0-16.0); Immature Granulocytes # (auto) 0.01 K/uL (0.00-0.02); Immature Granulocytes % (auto) 0.2 %; Lymphocytes # (auto) 0.91 K/uL (1.2-3.4); Lymphocytes % (auto) 14.1 %; Mean Corpuscular Hemoglobin 32.8 pg (25-34); Mean Corpuscular Hgb Conc 31.7 g/dL (32-36); Mean Corpuscular Volume 103.5 fL (80-100); Mean Platelet Volume 9.6 fL (7.4-10.4); Monocytes # (auto) 0.73 K/uL (0.11-0.59); Monocytes % (auto) 11.3 %; Neutrophils # (auto) 4.68 K/uL (1.4-6.5); Neutrophils % (auto) 72.7 %; Platelet Count 199 K/uL (130-400); RDW Coefficient of Variation 15.3 % (11.5-14.5); RDW Standard Deviation 57.5 fL (36.4-46.3); Red Blood Count 3.44 M/uL (4.2-5.4); White Blood Count 6.44 K/uL (4.8-10.8)
[2020-08-05 11:24] LABS: Appearance Urine Cloudy (Clear); Bacteria Urine Automated 1+ (Negative); Bilirubin Urine Negative (Negative); Blood Urine Trace (Negative); Color Urine Dark Yellow; Epithelial Cell Urine Auto >30 /lpf (0-5); Glucose Urine UA Negative (Negative); Ketones Urine Trace (Negative); Leukocyte Esterase Urine Negative (Negative); Nitrite Urine Negative (Negative); RBC Urine Automated 0-4 /hpf (0-4); Specific Gravity Urine 1.018 (1.000-1.030); Urobilinogen Urine Negative (Negative); pH Urine >= 9.0 (4.5-7.5)
[2020-08-05 11:33] LABS: Protein Urine 3+ (Negative)
[2020-08-05] MEDS ORDERED: ONDANSETRON INJ 2 MG/ML 2 ML VIAL IV STA (11:38)
[2020-08-05] MEDS ORDERED: hydrALAZINE HCL 20 MG/ML VIAL IV STA ×2 (11:47→17:17)
[2020-08-05 12:02] LABS: Albumin Globulin Ratio 1.2 (0.9-2); Albumin Level 3.7 gm/dl (3.4-5.0); BUN Creatinine Ratio 4.2 (10-20); Bilirubin,Total 0.4 mg/dl (0.2-1); Calcium 9.1 mg/dl (8.5-10.1); Creatinine Clr Calc Pharmacy 7.3 ml/min; Est GFR (African American) 5.7; Est GFR (Non-African American) 4.9; Globulin 3.2 gm/dl (2.5-4.0); Magnesium 2.9 mg/dl (1.8-2.4); Potassium 4.3 mmol/L (3.5-5.1); Total Protein 6.9 gm/dl (6.4-8.2)
[2020-08-05 12:03] LABS: Influenza A virus by PCR Negative (Negative); Influenza B virus by PCR Negative (Negative)
--- NOTE | 2020-08-05 12:42 | History & Physical Report ---
Date of Service August 05, 2020 Assessment & Plan (1) UTI (urinary tract infection): With evidence of UTI along with symptoms starting on 07/30, with headaches, nausea, lower back pain and mid abdominal pain, and myalgias at home for 1 week Urine culture from 07/30 growing E. coli resistant to ampicillin and ampicillin/sulbactam, failed treatment with Bactrim and Macrobid as an outpatient No evidence of sepsis here, but with ongoing symptoms as above despite treatment with oral antibiotics Procalcitonin negative Repeat urinalysis here today is improved from previous but has been on oral antibiotics Concern for acute pyelonephritis given ongoing nausea, abdominal pain and lower back pain -Admit on observation to treat with IV antibiotics -Check CT abdomen/pelvis given tenderness on exam ongoing symptoms-look for stone or other intra-abdominal pathology -Continue IV cefepime and follow repeat urine and blood cultures -Follow CBC, CMP -Tylenol as needed for fevers or back pain (2) Hypertensive urgency: Blood pressures in the 220s systolic upon arrival with headache that has been ongoing for several days Denies any chest pain although does have a chronically mildly elevated troponin. She does have end-stage renal disease on dialysis. No evidence of pulmonary edema Also was recently started on bupropion 6 days ago which could increase blood pressure -Was given IV hydralazine in the ER and will continue this as needed systolic blood pressure greater than 180 -Continue home medications of p.o. hydralazine, carvedilol -Hold home bupropion for now -Monitor blood pressures closely (3) Abdominal pain: As above, likely related to UTI/possible acute pyelonephritis Checking CT abdomen/pelvis Treating with IV antibiotics Antiemetics as needed (4) Headache: Possibly related to infection as above -check CT head stat Tylenol as needed Blood pressure control as above Checking Covid-19 test (5) Chronic respiratory failure with hypoxia: Is on 3 L nasal cannula with exertion at home and with her BiPAP at nighttime No acute issues (6) End-stage renal disease on hemodialysis: Is on a Wednesday dialysis schedule Consult nephrology for inpatient dialysis in case she needs this tomorrow-if to be discharged tomorrow, should arrange for her to get from the hospital to outpatient dialysis Continue usual home medications with calcium acetate, prorenal (7) CHF (congestive heart failure): With chronic diastolic CHF No acute issues Continue blood pressure control as above Is on dialysis for volume management (8) Restrictive lung disease: Follows with pulmonology/sleep medicine Continue supplemental O2 as above (9) Depression with anxiety: Recently switched from Zoloft back to Lexapro and started on Wellbutrin Continue Lexapro Holding Wellbutrin for hypertension as above (10) Dyslipidemia: Continue renally dosed fenofibrate (11) GERD without esophagitis: Continue PPI No acute issues but has a history of incarcerated ventral incisional hernia and abdominal adhesions and hiatal hernia Currently following with bariatric surgeon at [facility] and having outpatient esophageal studies performed to include manometry (12) Obstructive sleep apnea: Continue BiPAP 05/06 nightly with oxygen (13) Hypothyroidism: TSH normal 05/2020 Continue home levothyroxine (14) Coronary artery disease: minimal nonobstructive CAD on 2018 cath - performed by Dr Qureshi. cont fenofibrate, aspirin, beta ramesh for secondary prevention (15) Anemia: Secondary to ESRD Hemoglobin mildly low at 11.3 but around 2 improved from her baseline Managed by nephrology Follow CBC (16) Diabetes mellitus: Hemoglobin A1c 5.7% but may not be accurate in the setting of end-stage renal disease Hold home insulin detemir for now as is having nausea and do NovoLog supplemental insulin only Accu-Cheks before every meal and nightly (17) Hypertension: With hypertensive urgency as above Continue home hydralazine, carvedilol, IV hydralazine as needed (18) Polymyalgia rheumatica: Started on treatment for such in 02/2020 and follows with rheumatology as an outpatient Continue home prednisone 4 mg daily Follow-up as an outpatient with rheumatology (19) Elevated troponin: Troponin mildly elevated here at 0.249 which is around or lower than where she has been in the past. She denies any chest pains This may be secondary to chronic elevation in the setting of ESRD and a known history of CAD ECG ordered but not performed at the time of admission-we will follow up on this Will repeat troponin in 6 hours and if stays the same, will not continue to trend (20) DVT prophylaxis: Heparin SQ, SCDs Disposition-bring in on observation to PCU for failure of outpatient UTI treatment, hypertensive urgency History of Present Illness Chief Complaint: Nausea, UTI Primary Care Provider: Julito Burt MD This patient is a 75-year-old female with a past medical history significant for restrictive lung disease (hypoventilation syndrome from obesity) on chronic O2 3L NC, HFpEf, LBBB, ESRD on HD, anxiety with depression, diabetic retinopathy, dyslipidemia, GERD/upper motility disorder, insomnia, TASH on BiPAP, PMR on chronic steroids, hypothyroidism, CAD, diabetes mellitus and hypertension who presents to the ER with persistent nausea, low back pain, body aches and chills, headache and weakness after being treated for UTI by her PCP 6 days ago. She was having dysuria and foul-smelling urine along with confusion and chills approximately 1 week ago. She was started on Bactrim and did not feel better. She was then switched to Macrobid. Her urine culture is growing E. coli which is only resistant to ampicillin and Unasyn, however she did not improve. She continues to have symptoms as noted above. She is having some mid abdominal pain and lower mid back pain worse than her usual chronic lower back pain. She has a history of sepsis from UTIs. Her confusion has cleared up however in the last week it seems. In the ER, she was afebrile and significantly hypertensive at 222 systolic. She did not have a leukocytosis and her chemistry was most notable for creatinine of 7.3 she is due for dialysis tomorrow. She was treated with IV hydralazine, IV cefepime, and IV Zofran for her nausea. She will be admitted for failure of outpatient treatment for UTI and likely with acute pyelonephritis. Allergies Allergy/AdvReac Type Severity Reaction Status Date / Time lisinopril AdvReac Intermediate cough Verified 07/30/20 14:15 Home Medications Medication Instructions Recorded Confirmed Type aspirin 81 mg PO QAM 06/16/18 08/05/20 History calcium acetate(phosphat bind) 1,334 mg PO TIDM 07/26/18 08/05/20 History magnesium oxide 400 mg PO QAM cap 12/20/18 08/05/20 History pen needle, diabetic 31 gauge x #60 ea 07/20/19 07/30/20 Rx 5/16" calcium carbonate 500 mg calcium 500 mg PO QDD 08/10/19 08/05/20 History (1,250 mg) tablet acetaminophen [Tylenol Extra 1,000 mg PO Q6H PRN 11/07/19 08/05/20 History Strength] ProRenal 1 tab PO QDL 02/27/20 08/05/20 History Oxygen Home #1 ea 02/29/20 07/30/20 Rx atorvastatin 20 mg tablet 20 mg PO HS #90 tab 05/09/20 08/05/20 Rx carvedilol 25 mg tablet 25 mg PO BID #180 tab 05/09/20 08/05/20 Rx pantoprazole 40 mg tablet,delayed 40 mg PO BID 90 Days #180 tab 05/09/20 08/05/20 Rx release insulin detemir U-100 100 unit/mL 20 unit SUBCUT BID #15 ml 05/14/20 08/05/20 Rx (3 mL) subcutaneous pen prednisone 1 mg tablet 4 mg PO DAILY #120 tab 05/22/20 08/05/20 Rx ondansetron HCl 8 mg PO Q8H PRN 06/24/20 08/05/20 History lorazepam 0.5 mg tablet 0.5 mg PO BID PRN #30 tab 06/28/20 08/05/20 Rx tramadol 50 mg tablet 50 mg PO BID #60 tab 07/23/20 08/05/20 Rx blood sugar diagnostic ea 07/30/20 History escitalopram oxalate 20 mg tablet 20 mg PO HS #30 tab 07/30/20 08/05/20 Rx hydralazine 25 mg tablet 25 mg PO TID 90 Days #270 tab 08/01/20 08/05/20 Rx nitrofurantoin 100 mg PO BID #10 cap 08/02/20 08/05/20 Rx monohydrate/macrocrystals 100 mg capsule bupropion HCl 75 mg PO QPM 08/05/20 08/05/20 History fenofibrate nanocrystallized 48 mg PO QPM 08/05/20 08/05/20 History [Tricor] levothyroxine 100 mcg PO QPM 08/05/20 08/05/20 History Past Med/Surg History Medical History (Updated 08/05/20 @ 14:16 by Mary Camejo MD) Acute hyperkalemia Anemia Arthritis Coronary artery disease Depression with anxiety Diabetes Diabetes mellitus Diabetic retinopathy Dyslipidemia End-stage renal disease on hemodialysis GERD without esophagitis Hernia, hiatal History of thrombophlebitis Hypertension Hypothyroidism Insomnia Laceration of left lower extremity Macular puckering, bilateral Obstructive sleep apnea Panniculitis Paresthesias Polyarthritis Tubular adenoma of colon URI (upper respiratory infection) Vitamin D deficiency Surgical History H/O: hysterectomy History of bladder surgery History of cataract surgery History of nasal septoplasty S/P arteriovenous (AV) fistula creation S/P hysterectomy S/P repair of paraesophageal hernia S/P rotator cuff repair Family History Mother Leukemia Cerebral aneurysm Hypertension Anxiety Diabetes Grandmother Hypertension Father Osteoarthritis COPD (chronic obstructive pulmonary disease) Diabetes Sister Diabetes Myocardial infarction COPD (chronic obstructive pulmonary disease) Brother Myocardial infarction Diabetes Denies family history of Ovarian cancer Prostate cancer Breast cancer Colorectal cancer Social History Smoking Status: Never smoker Second Hand Exposure: No; Hx Alcohol Use: No Hx Substance Use: No Preferred Language: Danish Communication Ability: Effective Visual Impairment: No Limitations Hearing Ability: Normal Roll Reclaimer Required: No Beliefs That Will Affect Care: None marital status: Current Living Situation: Spouse current occupational status: retired Feels Safe at Home: Yes Dental Care, Regularly: No Physical Activity Frequency: 1-2 Times per Week Seatbelt Use: always Assistive Devices: Oxygen - Continuous Review of Systems Review of Systems: All systems reviewed & are unremarkable except as noted in HPI & below She had a recent fall several days ago and has an abrasion on the left knee No other new joint pains Does have chronic aches and pains down her bilateral lower extremities which are worse in the last few days in the proximal thighs Physical Exam Constitutional: WD/WN, vitals as above + obese and cooperative; no acute distress and not lethargic Eyes: PERRL, conjunctivae normal, anicteric sclerae ENMT: external ear and nose normal, oropharynx normal (With mildly dry mucous membranes) Neck: trachea midline, no thyromegaly Respiratory: normal respiratory effort, lungs clear to auscultation Cardiovascular: Rate/Rhythm: regular rate and regular rhythm Heart Sounds: no murmur Extremities: + pedal edema (Left foot chronic nonpitting edema) Right forearm AV fistula present Chest (Breasts): Chest: normal inspection of chest Gastrointestinal (Abdomen): Inspection/Auscultation: normal bowel sounds; abdomen not distended Percussion/Palpation: + abdomen tender (Mildly tender in the periumbilical region without guarding or rebound) and abdomen soft; no guarding Musculoskeletal: Extremities: extremities normal to inspection; no cyanosis and no clubbing Skin: no rashes, warm and dry + lesion (Left anterior knee small abrasion with scant dried blood on bandage) Neurologic: moves all extremities and awake; no focal motor deficits Psychiatric: A+Ox3, euthymic affect Lymphatic: no lymphedema Results & Data Results & Data ([facility]) Vital Signs (Past 12 Hours) Vital Signs Temp Pulse Resp BP Pulse Ox 08/05/20 11:38 94 08/05/20 11:23 54 L 14 222/86 H 94 08/05/20 10:19 94 08/05/20 09:34 36.5 C 57 L 18 219/93 H 93 Laboratory Results 08/05/20 08/05/20 08/05/20 Range/Units 11:25 11:05 11:00 WBC (4.8-10.8) K/uL RBC (4.2-5.4) M/uL Hgb (12.0-16.0) g/dL Hct (37-47) % MCV (80-100) fL MCH (25-34) pg MCHC (32-36) g/dL RDW Std Deviation (36.4-46.3) fL RDW Coeff of Jared (11.5-14.5) % Plt Count (130-400) K/uL MPV (7.4-10.4) fL Immature Gran % (Auto) % Neut % (Auto) % Lymph % (Auto) % Ray % (Auto) % Eos % (Auto) % Baso % (Auto) % Neut # (Auto) (1.4-6.5) K/uL Lymph # (Auto) (1.2-3.4) K/uL Ray # (Auto) (0.11-0.59) K/uL Eos # (Auto) (0-0.5) K/uL Baso # (Auto) (0-0.2) K/uL Immature Gran # (Auto) (0.00-0.02) K/uL PT INR APTT PTT Ratio Sodium (136-145) mmol/L Potassium (3.5-5.1) mmol/L Chloride (98-107) mmol/L Carbon Dioxide (21-32) mmol/L Anion Gap (3-11) BUN (7-18) mg/dl Creatinine (0.6-1.2) mg/dl Est Cr Clr Drug Dosing ml/min Est GFR ( Amer) Est GFR (Non-Af Amer) BUN/Creatinine Ratio (10-20) Glucose (70-99) mg/dl Lactate (0.4-2.0) mmol/L Calcium (8.5-10.1) mg/dl Magnesium (1.8-2.4) mg/dl Total Bilirubin (0.2-1) mg/dl AST (15-37) U/L ALT (12-78) U/L Alkaline Phosphatase (45-117) U/L Troponin I Total Protein (6.4-8.2) gm/dl Albumin (3.4-5.0) gm/dl Globulin (2.5-4.0) gm/dl Albumin/Globulin Ratio (0.9-2) Procalcitonin 0.29 (0-0.5) ng/ml Urine Color Dark Yellow Urine Appearance Cloudy A (Clear) Urine pH >= 9.0 H (4.5-7.5) Ur Specific Blair 1.018 (1.000-1.030) Urine Protein 3+ H (Negative) Urine Glucose (UA) Negative (Negative) Urine Ketones Trace H (Negative) Urine Blood Trace H (Negative) Urine Nitrite Negative (Negative) Urine Bilirubin Negative (Negative) Urine Urobilinogen Negative (Negative) Ur Leukocyte Esterase Negative (Negative) Urine WBC (Auto) 1-5 (0-5) /hpf Urine RBC (Auto) 0-4 (0-4) /hpf U Hyaline Cast (Auto) 1-5 (0-5) /lpf U Epithel Cells (Auto) >30 H (0-5) /lpf Urine Bacteria (Auto) 1+ H (Negative) Urine Yeast Not Reportable Influ A Molecular Assay Negative (Negative) Influ B Molecular Assay Negative (Negative) 08/05/20 08/05/20 08/05/20 Range/Units 11:00 11:00 11:00 WBC (4.8-10.8) K/uL RBC (4.2-5.4) M/uL Hgb (12.0-16.0) g/dL Hct (37-47) % MCV (80-100) fL MCH (25-34) pg MCHC (32-36) g/dL RDW Std Deviation (36.4-46.3) fL RDW Coeff of Jared (11.5-14.5) % Plt Count (130-400) K/uL MPV (7.4-10.4) fL Immature Gran % (Auto) % Neut % (Auto) % Lymph % (Auto) % Ray % (Auto) % Eos % (Auto) % Baso % (Auto) % Neut # (Auto) (1.4-6.5) K/uL Lymph # (Auto) (1.2-3.4) K/uL Ray # (Auto) (0.11-0.59) K/uL Eos # (Auto) (0-0.5) K/uL Baso # (Auto) (0-0.2) K/uL Immature Gran # (Auto) (0.00-0.02) K/uL PT Cancelled INR Cancelled APTT Cancelled PTT Ratio Cancelled Sodium 138 (136-145) mmol/L Potassium 4.3 (3.5-5.1) mmol/L Chloride 98 (98-107) mmol/L Carbon Dioxide 29 (21-32) mmol/L Anion Gap 11.0 (3-11) BUN 31 H (7-18) mg/dl Creatinine 7.37 H* (0.6-1.2) mg/dl Est Cr Clr Drug Dosing 7.3 ml/min Est GFR ( Amer) 5.7 Est GFR (Non-Af Amer) 4.9 BUN/Creatinine Ratio 4.2 L (10-20) Glucose 129 H (70-99) mg/dl Lactate 1.0 (0.4-2.0) mmol/L Calcium 9.1 (8.5-10.1) mg/dl Magnesium 2.9 H (1.8-2.4) mg/dl Total Bilirubin 0.4 (0.2-1) mg/dl AST 44 H (15-37) U/L ALT 29 (12-78) U/L Alkaline Phosphatase 57 (45-117) U/L Troponin I Pending Total Protein 6.9 (6.4-8.2) gm/dl Albumin 3.7 (3.4-5.0) gm/dl Globulin 3.2 (2.5-4.0) gm/dl Albumin/Globulin Ratio 1.2 (0.9-2) Procalcitonin (0-0.5) ng/ml Urine Color Urine Appearance (Clear) Urine pH (4.5-7.5) Ur Specific Blair (1.000-1.030) Urine Protein (Negative) Urine Glucose (UA) (Negative) Urine Ketones (Negative) Urine Blood (Negative) Urine Nitrite (Negative) Urine Bilirubin (Negative) Urine Urobilinogen (Negative) Ur Leukocyte Esterase (Negative) Urine WBC (Auto) (0-5) /hpf Urine RBC (Auto) (0-4) /hpf U Hyaline Cast (Auto) (0-5) /lpf U Epithel Cells (Auto) (0-5) /lpf Urine Bacteria (Auto) (Negative) Urine Yeast Influ A Molecular Assay (Negative) Influ B Molecular Assay (Negative) 08/05/20 Range/Units 11:00 WBC 6.44 (4.8-10.8) K/uL RBC 3.44 L (4.2-5.4) M/uL Hgb 11.3 L (12.0-16.0) g/dL Hct 35.6 L (37-47) % MCV 103.5 H (80-100) fL MCH 32.8 (25-34) pg MCHC 31.7 L (32-36) g/dL RDW Std Deviation 57.5 H (36.4-46.3) fL RDW Coeff of Jared 15.3 H (11.5-14.5) % Plt Count 199 (130-400) K/uL MPV 9.6 (7.4-10.4) fL Immature Gran % (Auto) 0.2 % Neut % (Auto) 72.7 % Lymph % (Auto) 14.1 % Ray % (Auto) 11.3 % Eos % (Auto) 1.4 % Baso % (Auto) 0.3 % Neut # (Auto) 4.68 (1.4-6.5) K/uL Lymph # (Auto) 0.91 L (1.2-3.4) K/uL Ray # (Auto) 0.73 H (0.11-0.59) K/uL Eos # (Auto) 0.09 (0-0.5) K/uL Baso # (Auto) 0.02 (0-0.2) K/uL Immature Gran # (Auto) 0.01 (0.00-0.02) K/uL PT INR APTT PTT Ratio Sodium (136-145) mmol/L Potassium (3.5-5.1) mmol/L Chloride (98-107) mmol/L Carbon Dioxide (21-32) mmol/L Anion Gap (3-11) BUN (7-18) mg/dl Creatinine (0.6-1.2) mg/dl Est Cr Clr Drug Dosing ml/min Est GFR ( Amer) Est GFR (Non-Af Amer) BUN/Creatinine Ratio (10-20) Glucose (70-99) mg/dl Lactate (0.4-2.0) mmol/L Calcium (8.5-10.1) mg/dl Magnesium (1.8-2.4) mg/dl Total Bilirubin (0.2-1) mg/dl AST (15-37) U/L ALT (12-78) U/L Alkaline Phosphatase (45-117) U/L Troponin I Total Protein (6.4-8.2) gm/dl Albumin (3.4-5.0) gm/dl Globulin (2.5-4.0) gm/dl Albumin/Globulin Ratio (0.9-2) Procalcitonin (0-0.5) ng/ml Urine Color Urine Appearance (Clear) Urine pH (4.5-7.5) Ur Specific Blair (1.000-1.030) Urine Protein (Negative) Urine Glucose (UA) (Negative) Urine Ketones (Negative) Urine Blood (Negative) Urine Nitrite (Negative) Urine Bilirubin (Negative) Urine Urobilinogen (Negative) Ur Leukocyte Esterase (Negative) Urine WBC (Auto) (0-5) /hpf Urine RBC (Auto) (0-4) /hpf U Hyaline Cast (Auto) (0-5) /lpf U Epithel Cells (Auto) (0-5) /lpf Urine Bacteria (Auto) (Negative) Urine Yeast Influ A Molecular Assay (Negative) Influ B Molecular Assay (Negative) Diagnostic Findings XR chest 1V portable CLINICAL HISTORY: SEPSIS COMPARISON STUDY: 06/24/2020 FINDINGS: The heart is mildly enlarged. There is a stable lobulated contour the right hemidiaphragm. There is no failure. There is no focal pulmonary consolidation. There are no pleural effusions.[ IMPRESSION: Mild cardiomegaly. No acute findings. Code Status & VTE Plan Code Status DNR/DNI VTE Prophylaxis Plan VTE Prophylaxis will be ordered: Yes PG Care Time/CCT Total # of Minutes Spent Total Time Spent with Patient: Total time spent is greater than 50% in coordination of care (as documented) at patient's floor/unit and/or counseling patient: Coding Level of Care Code 48728 OBS Care - Level 3 Diagnoses UTI (urinary tract infection) N39.0 Hypertensive urgency I16.0 Abdominal pain R10.9 Headache R51.9 Chronic respiratory failure with hypoxia J96.11 End-stage renal disease on hemodialysis N18.6; Z99.2 CHF (congestive heart failure) I50.9 Heart failure chronicity: acute on chronic Heart failure type: unspecified Restrictive lung disease J98.4 Depression with anxiety F41.8 Dyslipidemia E78.5 GERD without esophagitis K21.9 Obstructive sleep apnea G47.33 Hypothyroidism E03.9 Hypothyroidism type: unspecified Coronary artery disease I25.10 Anemia D64.9 Diabetes mellitus E11.22; N18.6; Z79.4; Z99.2 Chronic kidney disease stage: on chronic dialysis Diabetes mellitus complication detail: with chronic kidney disease Diabetes mellitus complication status: with kidney complications Diabetes mellitus senior living insulin use: with senior living use Diabetes mellitus type: type 2 Hypertension I10 Polymyalgia rheumatica M35.3 Elevated troponin R77.8 DVT prophylaxis Z29.9 (1) Diabetes mellitus Chronic kidney disease stage: on chronic dialysis Diabetes mellitus complication detail: with chronic kidney disease Diabetes mellitus complication status: with kidney complications Diabetes mellitus senior living insulin use: with rodent exterminator use Diabetes mellitus type: type 2 Qualified Code(s): E11.22 - Type 2 diabetes mellitus with diabetic chronic kidney disease; N18.6 - End stage renal disease; Z79.4 - half-way (current) use of insulin; Z99.2 - Dependence on renal dialysis (2) CHF (congestive heart failure) Heart failure chronicity: acute on chronic Heart failure type: unspecified Qualified Code(s): I50.9 - Heart failure, unspecified (3) Hypothyroidism Hypothyroidism type: unspecified Qualified Code(s): E03.9 - Hypothyroidism, unspecified
[2020-08-05] MEDS ORDERED: ACETAMINOPHEN 500 MG TAB PO STA (12:50)
[2020-08-05 12:55] LABS: Troponin I 0.249 ng/ml (0-0.045)
--- NOTE | 2020-08-05 13:43 | CT Scan Report ---
CT head/brain wo con CLINICAL HISTORY: severe headache COMPARISON STUDY: 06/24/2020 TECHNIQUE: Axial CT of the brain is performed from the vertex to the skull base. IV contrast was not administered for this examination. A dose lowering technique was utilized adhering to the principles of ALARA. CT DOSE: 729.78 mGycm FINDINGS: No intra or extra-axial mass lesions are visualized. There is no CT evidence of acute cortical infarc tion. There is no evidence of midline shift. There is no acute hemorrhage. No calvarial fractures ar e visualized. There are mild white matter hypodensities likely on a small vessel basis. There is no evidence of pathologic ventricular dilatation. There is no evidence of acute sinusitis IMPRESSION: No acute intracranial findings ACT 112: Negative or not required by law. Electronically signed by: Oscar Santa M.D. 08/05/2020 1:41 PM
--- NOTE | 2020-08-05 13:47 | CT Scan Report ---
CT SCAN OF THE ABDOMEN AND PELVIS WITHOUT IV CONTRAST CLINICAL HISTORY: Generalized abdominal pain. COMPARISON STUDY: Abdominal CT dated 11/07/2019. TECHNIQUE: CT scan of the abdomen and pelvis is performed from the lung bases to the proximal femora. Images are reviewed in the axial, sagittal, and coronal planes. IV contrast was not administered for this examination. Note that the examination is suboptimal without IV contrast. A dose lowering techn ique was utilized adhering to the principles of ALARA. CT DOSE: 970.06 mGycm FINDINGS: Lung bases: The heart is enlarged and without pericardial effusion. The mitral annulus is densely geovanna cified. The lung bases are clear noting bibasilar scarring/atelectasis. There is a tiny hiatal hernia . Postoperative change is seen at the gastroesophageal junction. Liver: The unenhanced liver is normal in size, contour, and attenuation. There is no intrahepatic tal iary ductal dilatation. Gallbladder: Unremarkable. Spleen: Normal in size and attenuation. Pancreas: The unenhanced pancreas is grossly unremarkable. Adrenal glands: A 2.0 cm left adrenal adenoma is unchanged. The right adrenal gland is normal in appe arance. Kidneys: The unenhanced kidneys are atrophic and without hydronephrosis. There are no renal calculi i dentified. There is no evidence of contour deforming renal mass lesion. Abdominal vasculature: The abdominal aorta is normal in course and caliber noting moderate to advance d atherosclerotic calcification. Bowel: There is moderate to advanced sigmoid diverticulosis without CT evidence of acute diverticulit is. No bowel obstruction is seen. The appendix is not identified. Peritoneum: There is no intraperitoneal free air or abdominal ascites. There is a large fat-containin g umbilical hernia. Lymphadenopathy: None. Pelvic viscera: The bladder is decompressed and not well evaluated. Calcifications at the base of the bladder are unchanged from previous. The uterus is surgically absent. No adnexal lesion is seen. The re are bilateral fat-containing inguinal hernias. Skeletal structures: The skeletal structures are osteopenic. There is moderate lumbosacral spondylosi s. No lytic or blastic lesions are seen. IMPRESSION: 1. There are no acute infectious or inflammatory findings in the abdomen or pelvis. 2. Moderate sigmoid diverticulosis without CT evidence of acute diverticulitis. 3. Cardiomegaly. 4. Renal cortical atrophy is similar to previous. 5. Additional findings as above. ACT 112: Negative or not required by law. Electronically signed by: Derek Low M.D. 08/05/2020 1:46 PM
[2020-08-05 14:13] LABS: Influenza A virus by PCR Negative (Neg); Influenza B virus by PCR Negative (Neg); RSV by PCR Negative (Neg); SARS CoV2 RNA(COVID-19) InHosp NEGATIVE (Negative)
[2020-08-05] MEDS ORDERED: traMADol HCL 50 MG TABLET ONE (14:30)
[2020-08-05] MEDS: hydrALAZINE HCL 25 MG TAB PO SCH ×2 (14:34→21:02)
--- NOTE | 2020-08-05 16:07 | Electrocardiogram Report ---
Test Reason : Blood Pressure : / mmHG Vent. Rate : 056 BPM Atrial Rate : 056 BPM P-R Int : 190 ms QRS Dur : 100 ms QT Int : 474 ms P-R-T Axes : 080 -54 033 degrees QTc Int : 457 ms Sinus bradycardia Left anterior fascicular block Possible Anterior infarct , age undetermined vs LAFB Abnormal ECG When compared with ECG of 26-JUN-2020 06:37, T wave inversion no longer evident in Anterolateral leads Confirmed by Saad Antonio ([id number]) on 08/05/2020 4:06:58 PM Referred By: Julito Burt Confirmed By:Saad Antonio
[2020-08-05] MEDS ORDERED: GLUCAGON FOR INJ 1 MG VIAL SQ PRN (16:14)
[2020-08-05] MEDS ORDERED: GLUCOSE 40% GEL 15 GM TUBE PO PRN (16:14)
[2020-08-05] MEDS ORDERED: DEXTROSE 50% 50 ML SYRINGE IV PRN (16:14)
[2020-08-05] MEDS ORDERED: GLUCOSE 10 TABS/TUBE PO PRN (16:14)
[2020-08-05] MEDS ORDERED: POLYETHYLENE (MIRALAX) 17 GM PACK PO PRN (16:14)
[2020-08-05] MEDS ORDERED: CARBOHYDRATES FOR HYPOGLYCEMIA PO PRN (16:14)
[2020-08-05] MEDS ORDERED: CEFEPIME 2,000 MG in SYRINGE 0 ML IV SCH (16:14)
[2020-08-05] MEDS: INSULIN ASPART 100 UNITS/ML 3 ML PEN SC SCH ×2 (16:55→21:05)
[2020-08-05] MEDS ORDERED: traMADol HCL 50 MG TABLET PO STA (17:17)
[2020-08-05] MEDS: CALCIUM CARBONATE 1250MG TAB PO SCH (17:33)
[2020-08-05] MEDS: CALCIUM ACETATE 667 MG CAP/TAB PO SCH (17:33)
[2020-08-05] MEDS: ACETAMINOPHEN 500 MG TAB PO PRN (19:57)
[2020-08-05] MEDS: carvediloL 25 MG TAB PO SCH (21:02)
[2020-08-05] MEDS: ATORVASTATIN 20 MG TAB PO SCH (21:02)
[2020-08-05] MEDS: LEVOTHYROXINE SODIUM 100 MCG TABLET PO SCH (21:02)
[2020-08-05] MEDS: FENOFIBRATE NANOCRYSTALLIZED 48 MG TABLET PO SCH (21:02)
[2020-08-05] MEDS: LORazepam 0.5 MG TAB PO PRN (21:02)
[2020-08-05] MEDS: traMADol HCL 50 MG TABLET PO SCH (21:02)
[2020-08-05] MEDS: ESCITALOPRAM OXALATE 20 MG TAB PO SCH (21:03)
[2020-08-05] MEDS: HEPARIN SOD 5,000 UNIT/0.5 ML VIAL SQ SCH (21:03)
[2020-08-05] MEDS: PANTOprazole 40 MG TAB PO SCH (21:03)
[2020-08-06] MEDS: hydrALAZINE HCL 20 MG/ML VIAL IV PRN ×2 (05:20→22:17)
[2020-08-06] MEDS: ACETAMINOPHEN 500 MG TAB PO PRN (05:49)
[2020-08-06] MEDS: ONDANSETRON INJ 2 MG/ML 2 ML VIAL IV PRN ×2 (06:14→20:29)
[2020-08-06] MEDS: INSULIN ASPART 100 UNITS/ML 3 ML PEN SC SCH ×4 (07:59→20:57)
[2020-08-06] MEDS: LORazepam 0.5 MG TAB PO PRN ×2 (08:01→20:30)
[2020-08-06] MEDS: CALCIUM ACETATE 667 MG CAP/TAB PO SCH ×3 (08:02→16:52)
[2020-08-06] MEDS: predniSONE 1 MG TAB PO SCH (08:02)
[2020-08-06] MEDS: HEPARIN SOD 5,000 UNIT/0.5 ML VIAL SQ SCH ×2 (08:02→20:32)
[2020-08-06] MEDS: carvediloL 25 MG TAB PO SCH ×2 (08:03→20:34)
[2020-08-06] MEDS: PANTOprazole 40 MG TAB PO SCH ×2 (08:03→20:33)
[2020-08-06] MEDS: hydrALAZINE HCL 25 MG TAB PO SCH ×3 (08:03→20:30)
[2020-08-06] MEDS: traMADol HCL 50 MG TABLET PO SCH ×2 (08:03→20:41)
[2020-08-06] MEDS: ASPIRIN 81 MG ECTAB PO SCH (08:04)
[2020-08-06] MEDS ORDERED: MoRPHine SULFATE 2 MG/ML CARP IV PRN (08:21)
[2020-08-06] MEDS ORDERED: oxyCODONE HCL IR 5 MG TAB (IMMEDIATE RELEASE) PO PRN ×2 (08:21→08:30)
[2020-08-06] MEDS ORDERED: HEPARIN SOD (PORCINE) 1000 UNIT/ML IV ONE (08:28)
[2020-08-06] MEDS ORDERED: SODIUM CHLORIDE 0.9% 1000ML 1,000 ML IV PRN (08:28)
--- NOTE | 2020-08-06 08:30 | Hospitalist Progress Note ---
Date of Service August 06, 2020 Assessment & Plan (1) UTI (urinary tract infection): With evidence of UTI along with symptoms starting on 07/30, with headaches, nausea, lower back pain and mid abdominal pain, and myalgias at home for 1 week Urine culture from 07/30 growing E. coli resistant to ampicillin and ampicillin/sulbactam, failed treatment with Bactrim and Macrobid as an outpatient No evidence of sepsis Concern for acute pyelonephritis given ongoing nausea, abdominal pain and lower back pain however CT scan as below has ruled that out Needs symptomatic pain control and will have an IV cefepime waiting final culture results CT abdomen/pelvis IMPRESSION: 1. There are no acute infectious or inflammatory findings in the abdomen or pelvis. 2. Moderate sigmoid diverticulosis without CT evidence of acute diverticulitis. 3. Cardiomegaly. 4. Renal cortical atrophy is similar to previous. -Tylenol as needed for fevers did require parenteral and oral opiates to help her significant back pain (2) Hypertensive urgency: Blood pressures in the 220s systolic upon arrival with headache May be influenced by her pain from recent medication changes chronically mildly elevated troponin. She does have end-stage renal disease on dialysis. Also was recently started on bupropion 6 days ago which could increase blood pressure -Was given IV hydralazine in the ER and will continue this as needed systolic blood pressure greater than 180 -Continue home medications of p.o. hydralazine, carvedilol -Hold home bupropion for now (3) Abdominal pain: As above, likely related to UTI/possible acute pyelonephritis CT abdomen/pelvis without intra abdominal pathology (4) Headache: Possibly related to uncontrolled htn and uti CT head without intracranial abnormalities morphine, oxycodone, Tylenol as needed Negative Covid-19 (5) Chronic respiratory failure with hypoxia: Is on 3 L nasal cannula with exertion at home and with her BiPAP at nighttime No acute issues (6) End-stage renal disease on hemodialysis: Is on a Wednesday dialysis schedule Consult nephrology for inpatient dialysis Continue usual home medications with calcium acetate, prorenal (7) CHF (congestive heart failure): With chronic diastolic CHF No acute issues Continue blood pressure control as above Is on dialysis for volume management (8) Restrictive lung disease: Follows with pulmonology/sleep medicine Continue supplemental O2 as above (9) Depression with anxiety: Recently switched from Zoloft back to Lexapro and started on Wellbutrin Continue Lexapro Holding Wellbutrin for hypertension as above (10) Dyslipidemia: Continue renally dosed fenofibrate (11) GERD without esophagitis: Continue PPI No acute issues but has a history of incarcerated ventral incisional hernia and abdominal adhesions and hiatal hernia Currently following with bariatric surgeon at [facility] and having outpatient esophageal studies performed to include manometry (12) Obstructive sleep apnea: Continue BiPAP 12/ nightly with oxygen (13) Hypothyroidism: TSH normal 05/2020 Continue home levothyroxine (14) Coronary artery disease: minimal nonobstructive CAD on 2018 cath - performed by Dr Qureshi. cont fenofibrate, aspirin, beta ramesh for secondary prevention (15) Anemia: Secondary to ESRD Hemoglobin mildly low at 11.3 but around 2 improved from her baseline Managed by nephrology Follow CBC (16) Diabetes mellitus: Hemoglobin A1c 5.7% but may not be accurate in the setting of end-stage renal disease Hold home insulin detemir for now as is having nausea and do NovoLog supplemental insulin only Accu-Cheks before every meal and nightly (17) Hypertension: With hypertensive urgency as above Continue home hydralazine, carvedilol, IV hydralazine as needed (18) Polymyalgia rheumatica: Started on treatment for such in 02/2020 and follows with rheumatology as an outpatient Continue home prednisone 4 mg daily concern of pain could be from insufficient steroids Follow-up as an outpatient with rheumatology (19) Elevated troponin: Troponin mildly elevated here at 0.249 which is around or lower than where she has been in the past. She denies any chest pains This may be secondary to chronic elevation in the setting of ESRD and a known history of CAD (20) DVT prophylaxis: Heparin SQ, SCDs Disposition-bring in on observation to PCU for failure of outpatient UTI treatment, hypertensive urgency Admission and Anticipated Discharge Date Admission Date: August 05, 2020 Subjective Patient states she is had increasing pain over her body as she is recently had her Neurontin discontinued by nephrology. She is unclear the reason why however he was started on bupropion at that time. Subsequently she did has had pain worsening over the last few days developed hypertensive urgency and likely may have a urinary tract infection present on admission. Patient was seen in dialysis and after given parenteral opiate pain medications her pain is much better controlled and we will begin to explore if we can safely be started Neurontin. We are going to hold her bupropion at this time as the patient feels it was not working and also may have impact in her blood pressure control Review of Systems Review of Systems: Mild distress and fatigue no headache, blurry or double vision no speech or swallowing issues no chest pain, pressure or palpitations no shortness of breath, cough or wheezes no abdominal pain, nausea or vomiting, diarrhea or constipation no dysuria, hematuria or frequency no focal joint pain does complain of pain all over and have peripheral swelling no focal back pain, CVA tenderness or radicular pain does have diffuse back pain without radiation no bruising, bleeding or rashes no focal signs of weakness does have peripheral neuropathy no complaints of anxiety or depression.. Physical Exam Physical Exam: The patient appeared well nourished and normally developed. She is morbidly obese with a BMI of 40 she appears chronically ill on dialysis. Vital signs as documented. Head exam is normocephalic atraumatic no scleral icterus Neck is with mild JVD, thyromegaly, or carotid bruits. Lungs are clear to auscultation, but diminished at the bases no focal loss of breath sounds Cardiac exam, Rhythm is regular.. No murmurs, rubs or gallops. Abdominal exam reveals normal bowel sounds, soft non tender, no masses Extremities are 1+edematous and both pedal pulses are present Neurologic exam is alert and oriented, no focal loss of strength but does have peripheral neuropathy Skin is with some venous stasis changes on her lower extremities Psychologically is without concerns for anxiety or depression Results & Data Results & Data ([facility]) Vital Signs (Past 12 Hours) Vital Signs Temp Pulse Pulse Resp BP Pulse Ox 08/06/20 08:00 58 L 08/06/20 07:22 98.2 F 58 L 15 177/88 H 93 08/06/20 04:01 99.0 F 56 L 16 197/68 H 92 08/05/20 23:59 59 L 08/05/20 23:50 97.3 F L 61 18 158/61 H 90 08/05/20 23:29 60 16 98 08/05/20 21:08 60 PG Care Time/CCT Total # of Minutes Spent Total Time Spent with Patient: Total time spent is greater than 50% in coordination of care (as documented) at patient's floor/unit and/or counseling patient: Coding Level of Care Code 93518 Subseq Obs Care Lvl 3 Diagnoses UTI (urinary tract infection) N39.0 Hypertensive urgency I16.0 Abdominal pain R10.9 Headache R51.9 Chronic respiratory failure with hypoxia J96.11 End-stage renal disease on hemodialysis N18.6; Z99.2 CHF (congestive heart failure) I50.9 Heart failure chronicity: acute on chronic Heart failure type: unspecified Restrictive lung disease J98.4 Depression with anxiety F41.8 Dyslipidemia E78.5 GERD without esophagitis K21.9 Obstructive sleep apnea G47.33 Hypothyroidism E03.9 Hypothyroidism type: unspecified Coronary artery disease I25.10 Anemia D64.9 Diabetes mellitus E11.22; N18.6; Z79.4; Z99.2 Chronic kidney disease stage: on chronic dialysis Diabetes mellitus complication detail: with chronic kidney disease Diabetes mellitus complication status: with kidney complications Diabetes mellitus emt intermediate insulin use: with shelter use Diabetes mellitus type: type 2 Hypertension I10 Polymyalgia rheumatica M35.3 Elevated troponin R77.8 DVT prophylaxis Z29.9 (1) Diabetes mellitus Chronic kidney disease stage: on chronic dialysis Diabetes mellitus complication detail: with chronic kidney disease Diabetes mellitus complication status: with kidney complications Diabetes mellitus emt intermediate insulin use: with emt intermediate use Diabetes mellitus type: type 2 Qualified Code(s): E11.22 - Type 2 diabetes mellitus with diabetic chronic kidney disease; N18.6 - End stage renal disease; Z79.4 - buttermilk drier operator (current) use of insulin; Z99.2 - Dependence on renal dialysis (2) CHF (congestive heart failure) Heart failure chronicity: acute on chronic Heart failure type: unspecified Qualified Code(s): I50.9 - Heart failure, unspecified (3) Hypothyroidism Hypothyroidism type: unspecified Qualified Code(s): E03.9 - Hypothyroidism, unspecified
[2020-08-06] MEDS ORDERED: MAGNESIUM OXIDE 400 MG TAB PO SCH (09:00)
[2020-08-06] MEDS: NYSTATIN POWDER 15GM BTL EXT SCH ×2 (09:24→20:37)
--- NOTE | 2020-08-06 12:23 | Nephrology Consultation ---
Date of Consultation August 06, 2020 Assessment & Plan (1) End-stage renal disease on hemodialysis: Orders for HD today reviewed with dialysis nurse and placed into EMR. Shirley was seen prior to and during HD this AM. She is tolerating treatment well. Qb at goal. BP slightly elevated. UF goal set to 1.5 L to challenge EDW. Medications appropriate for kidney function. (2) Acute UTI: Cefepime provided. Cx pending. (3) Anemia: Chronic, stable. Maintained on Micera as outpatient. Will monitor. (4) Hypertension: Anticipate some improvement with UF. Home Rx's unchanged. (5) Vitamin D deficiency: Maintained on calcium acetate QAC for hyperphosphatemia. History of Present Illness Reason for Consultation: ESRD on HD Requesting Physician: Savage Dial MD Attending Physician: Savage Dial MD History of Present Illness Mrs. Shirley Patrick is a 75-year-old female with ASCVD, DM, hypertension, hypothyroidism, PNR, depression, TASH, and ESRD attributed to DKD. She receives IHD on a TTS schedule at [facility]. Her last dialysis treatment was completed on Wednesday as scheduled without complications. UF 1.3 L. IDWG have significantly improved since her hospitalization in May. Recent UF goals have been consistently less than 1.5 L. Shirley's appetite has been poor. She is leaving dialysis below her EDW of 100 kg. She left dialysis at 98.5 kg on Wednesday. Clearances have been at goal with spKt/v 1.7. Shirley has been tolerating HD reasonably well. Unfortunately, she continues to struggle with chronic pain and depression. Mood has been very labile. This was in part attributed to steroids provided for PMR. Her PCP has been weaning prednisone. He also recently adjusted her antidepressants. Wellbutrin started and switched back from escitalopram. In addition, Shirley has had issues with chronic hyperkalemia. She was admitted to [facility] in May with hypoglycemia, hyperkalemia, and volume overload. She has diffuse pain as well as notable lower back pain, and increasing weakness in her legs. She readily admits to feeling overwhelmed by her multiple medical problems. She has experienced a progressive decline in functional status over the course of the past year. Shirley lives at home with her and unfortunately his ability to assist has been recently complicated by fracture to the arm after sustaining a fall. This has been a source of added stress. Shirley presented to the ER yesterday with increased back pain, weakness in her legs, and urinary symptoms. Records from her prior admission and evaluations at [facility], as well as records from [facility] were reviewed today. ESRD is attributed to diabetic nephropathy. Shirley has been on dialysis since 2016. Rx is TTS 4hr 2K 2Ca F-180NR, EDW 100 kg. Leaving HD at 98.5 kg more recently. R RC AVF functioning well. Qb ~350. Her medical history is significant for AODM, HTN, ASCVD, hypothyroidism, GERD, depression, RLS and TASH. Recent history includes management of spinal stenosis and possible diagnosis of PMR. Allergies Allergy/AdvReac Type Severity Reaction Status Date / Time lisinopril AdvReac Intermediate cough Verified 07/30/20 14:15 Home Medications Medication Instructions Recorded Confirmed Type aspirin 81 mg PO QAM 06/16/18 08/05/20 History calcium acetate(phosphat bind) 1,334 mg PO TIDM 07/26/18 08/05/20 History magnesium oxide 400 mg PO QAM cap 12/20/18 08/05/20 History pen needle, diabetic 31 gauge x #60 ea 07/20/19 07/30/20 Rx 5/16" calcium carbonate 500 mg calcium 500 mg PO QDD 08/10/19 08/05/20 History (1,250 mg) tablet acetaminophen [Tylenol Extra 1,000 mg PO Q6H PRN 11/07/19 08/05/20 History Strength] ProRenal 1 tab PO QDL 02/27/20 08/05/20 History Oxygen Home #1 ea 02/29/20 07/30/20 Rx atorvastatin 20 mg tablet 20 mg PO HS #90 tab 05/09/20 08/05/20 Rx carvedilol 25 mg tablet 25 mg PO BID #180 tab 05/09/20 08/05/20 Rx pantoprazole 40 mg tablet,delayed 40 mg PO BID 90 Days #180 tab 05/09/20 08/05/20 Rx release insulin detemir U-100 100 unit/mL 20 unit SUBCUT BID #15 ml 05/14/20 08/05/20 Rx (3 mL) subcutaneous pen prednisone 1 mg tablet 4 mg PO DAILY #120 tab 05/22/20 08/05/20 Rx ondansetron HCl 8 mg PO Q8H PRN 06/24/20 08/05/20 History lorazepam 0.5 mg tablet 0.5 mg PO BID PRN #30 tab 06/28/20 08/05/20 Rx tramadol 50 mg tablet 50 mg PO BID #60 tab 07/23/20 08/05/20 Rx blood sugar diagnostic ea 07/30/20 History escitalopram oxalate 20 mg tablet 20 mg PO HS #30 tab 07/30/20 08/05/20 Rx hydralazine 25 mg tablet 25 mg PO TID 90 Days #270 tab 08/01/20 08/05/20 Rx nitrofurantoin 100 mg PO BID #10 cap 08/02/20 08/05/20 Rx monohydrate/macrocrystals 100 mg capsule bupropion HCl 75 mg PO QPM 08/05/20 08/05/20 History fenofibrate nanocrystallized 48 mg PO QPM 08/05/20 08/05/20 History [Tricor] levothyroxine 100 mcg PO QPM 08/05/20 08/05/20 History Patient History Medical History Acute hyperkalemia Anemia Arthritis Coronary artery disease Depression with anxiety Diabetes Diabetes mellitus Diabetic retinopathy Dyslipidemia End-stage renal disease on hemodialysis GERD without esophagitis Hernia, hiatal History of thrombophlebitis Hypertension Hypothyroidism Insomnia Laceration of left lower extremity Macular puckering, bilateral Obstructive sleep apnea Panniculitis Paresthesias Polyarthritis Tubular adenoma of colon URI (upper respiratory infection) Vitamin D deficiency Surgical History H/O: hysterectomy History of bladder surgery History of cataract surgery History of nasal septoplasty S/P arteriovenous (AV) fistula creation S/P hysterectomy S/P repair of paraesophageal hernia S/P rotator cuff repair Family History Mother Leukemia Cerebral aneurysm Hypertension Anxiety Diabetes Grandmother Hypertension Father Osteoarthritis COPD (chronic obstructive pulmonary disease) Diabetes Sister Diabetes Myocardial infarction COPD (chronic obstructive pulmonary disease) Brother Myocardial infarction Diabetes Denies family history of Ovarian cancer Prostate cancer Breast cancer Colorectal cancer Social History Smoking Status: Never smoker Second Hand Exposure: No; Hx Alcohol Use: No Hx Substance Use: No Preferred Language: Japanese Communication Ability: Effective Visual Impairment: No Limitations Hearing Ability: Normal Lube Attendant Required: No Beliefs That Will Affect Care: None marital status: Current Living Situation: Spouse current occupational status: retired Feels Safe at Home: Yes Safety Concerns: Feels Safe At This Time Dental Care, Regularly: No Physical Activity Frequency: 1-2 Times per Week Seatbelt Use: always Assistive Devices: Denture - Upper Review of Systems Constitutional: + weight loss; no problem reported Eyes: no problem reported Ear, Nose, Mouth, Throat: no problem reported Respiratory: no problem reported Cardiovascular: no problem reported Gastrointestinal: no problem reported Genitourinary: Minimal urine output. Treated for several recent UTI. Musculoskeletal: no problem reported Integumentary: no problem reported Neurologic: no problem reported Psychiatric: no problem reported Endocrine: no problem reported Hematologic / Lymphatic: no problem reported Physical Exam Constitutional: well developed and + obese; no acute distress Eyes: no scleral abnormality and no corneal abnormality ENMT: Mouth: no oral mucosal abnormality and oral mucous membranes not dry Neck: normal visual inspection and trachea midline Respiratory: normal respiratory effort Auscultation: lungs clear to auscultation bilaterally Cardiovascular: Rate/Rhythm: regular rate Heart Sounds: normal S1 and normal S2 Extremities: + edema (trace) and + AV fistula Musculoskeletal: Extremities: no cyanosis and no clubbing Skin: normal turgor; no lesions Neurologic: Motor/Sensory: no tremor and no asterixis Psychiatric: Orientation: alert and oriented x 3 Results & Data ([facility]) Vital Signs (Past 12 Hours) Vital Signs Temp Pulse Pulse Pulse Resp BP BP 08/06/20 12:00 45 L 140/101 H 08/06/20 11:40 52 L 152/66 H 08/06/20 11:20 54 L 177/69 H 08/06/20 11:00 53 L 160/72 H 08/06/20 10:40 52 L 178/75 H 08/06/20 10:19 37.1 C 54 L 54 L 180/82 H 08/06/20 09:42 59 L 176/64 H 08/06/20 08:18 58 L 08/06/20 08:00 58 L 08/06/20 07:22 36.8 C 58 L 15 177/88 H 08/06/20 04:01 37.2 C 56 L 16 197/68 H Pulse Ox 08/06/20 12:00 08/06/20 11:40 08/06/20 11:20 08/06/20 11:00 08/06/20 10:40 08/06/20 10:19 08/06/20 09:42 08/06/20 08:18 08/06/20 08:00 08/06/20 07:22 93 08/06/20 04:01 92 Laboratory Results Laboratory Results - last 24 hr 08/05/20 08/05/20 08/05/20 11:00 11:25 11:25 POC Glucose Troponin I 0.249 H* Nasal Screen MRSA (PCR) COVID-19 Eval Order CovFluRsv at [facility] SARS-CoV-2 (PCR) NEGATIVE Influenza Type A (PCR) Negative Influenza Type B (PCR) Negative RSV (RT-PCR) Negative 08/05/20 08/05/20 08/05/20 16:34 16:56 17:00 POC Glucose 98 Troponin I 0.259 H* Nasal Screen MRSA (PCR) Negative COVID-19 Eval Order SARS-CoV-2 (PCR) Influenza Type A (PCR) Influenza Type B (PCR) RSV (RT-PCR) 08/05/20 08/06/20 20:32 07:24 POC Glucose 81 114 H Troponin I Nasal Screen MRSA (PCR) COVID-19 Eval Order SARS-CoV-2 (PCR) Influenza Type A (PCR) Influenza Type B (PCR) RSV (RT-PCR) PG Care Time/CCT Total # of Minutes Spent Total Time Spent with Patient: Total time spent is greater than 50% in coordination of care (as documented) at patient's floor/unit and/or counseling patient: Coding Level of Care Code 88059 Inpt Consult Level 4 Diagnoses End-stage renal disease on hemodialysis N18.6; Z99.2 Acute UTI N39.0 Anemia D64.9 Hypertension I10 Hypertension type: unspecified Vitamin D deficiency E55.9 (1) Hypertension Hypertension type: unspecified Qualified Code(s): I10 - Essential (primary) hypertension
[2020-08-06] MEDS: NEPHROCAPS PO SCH (13:33)
[2020-08-06] MEDS: HEPARIN SOD (PORCINE) 1000 UNIT/ML IV SCH ×2 (15:08→15:11)
[2020-08-06] MEDS ORDERED: CEFEPIME 500 MG in SYRINGE 0 ML IV SCH (16:00)
[2020-08-06] MEDS ORDERED: CALCIUM CARBONATE 1250MG TAB PO SCH (16:30)
[2020-08-06] MEDS: CALCIUM CARBONATE 1250MG TAB PO SCH (16:52)
[2020-08-06] MEDS: GABAPENTIN 100 MG CAP PO SCH (20:31)
[2020-08-06] MEDS: FENOFIBRATE NANOCRYSTALLIZED 48 MG TABLET PO SCH (20:33)
[2020-08-06] MEDS: ATORVASTATIN 20 MG TAB PO SCH (20:34)
[2020-08-06] MEDS: ESCITALOPRAM OXALATE 20 MG TAB PO SCH (20:34)
[2020-08-06] MEDS: LEVOTHYROXINE SODIUM 100 MCG TABLET PO SCH (20:38)
[2020-08-07] MEDS: INSULIN ASPART 100 UNITS/ML 3 ML PEN SC SCH ×4 (07:51→20:25)
--- NOTE | 2020-08-07 08:06 | Hospitalist Progress Note ---
Date of Service August 07, 2020 Assessment & Plan (1) UTI (urinary tract infection): With evidence of UTI along with symptoms starting on 07/30, with headaches, nausea, lower back pain and mid abdominal pain, and myalgias at home for 1 week Urine culture from 07/30 growing E. coli resistant to ampicillin and ampicillin/sulbactam, failed treatment with Bactrim and Macrobid as an outpatient No evidence of sepsis Concern for acute pyelonephritis given ongoing nausea, abdominal pain and lower back pain however CT scan as below has ruled that out Needs symptomatic pain control urine culture is not confirmatory, will stop antibiotics CT abdomen/pelvis IMPRESSION: 1. There are no acute infectious or inflammatory findings in the abdomen or pelvis. 2. Moderate sigmoid diverticulosis without CT evidence of acute diverticulitis. 3. Cardiomegaly. 4. Renal cortical atrophy is similar to previous. -Tylenol as needed for fevers did require parenteral and oral opiates to help her significant back pain (2) Hypertensive urgency: Blood pressures in the 220s systolic upon arrival with headache May be influenced by her pain from recent medication changes chronically mildly elevated troponin. She does have end-stage renal disease on dialysis. Also was recently started on bupropion 6 days ago which could increase blood pressure -Was given IV hydralazine in the ER and will continue this as needed systolic blood pressure greater than 180 -Continue home medications of p.o. hydralazine, carvedilol -Hold home bupropion for now (3) Abdominal pain: As above, likely related to UTI/possible acute pyelonephritis CT abdomen/pelvis without intra abdominal pathology abdominal pain improved with pain control stopping antibiotics 08/07 (4) Headache: Possibly related to uncontrolled htn and uti CT head without intracranial abnormalities morphine, oxycodone, Tylenol as needed Negative Covid-19 (5) Chronic respiratory failure with hypoxia: Is on 3 L nasal cannula with exertion at home and with her BiPAP at nighttime No acute issues (6) End-stage renal disease on hemodialysis: Is on a Wednesday dialysis schedule Consult nephrology for inpatient dialysis Continue usual home medications with calcium acetate, prorenal (7) CHF (congestive heart failure): With chronic diastolic CHF No acute issues Continue blood pressure control as above Is on dialysis for volume management (8) Restrictive lung disease: Follows with pulmonology/sleep medicine Continue supplemental O2 as above (9) Depression with anxiety: Recently switched from Zoloft back to Lexapro and started on Wellbutrin Continue Lexapro Holding Wellbutrin for hypertension as above (10) Dyslipidemia: Continue renally dosed fenofibrate (11) GERD without esophagitis: Continue PPI No acute issues but has a history of incarcerated ventral incisional hernia and abdominal adhesions and hiatal hernia Currently following with bariatric surgeon at [facility] and having outpatient esophageal studies performed to include manometry (12) Obstructive sleep apnea: Continue BiPAP / nightly with oxygen (13) Hypothyroidism: TSH normal 05/2020 Continue home levothyroxine (14) Coronary artery disease: minimal nonobstructive CAD on 2018 cath - performed by Dr Qureshi. cont fenofibrate, aspirin, beta ramesh for secondary prevention (15) Anemia: Secondary to ESRD Hemoglobin mildly low at 11.3 but around 2 improved from her baseline Managed by nephrology Follow CBC (16) Diabetes mellitus: Hemoglobin A1c 5.7% but may not be accurate in the setting of end-stage renal disease Hold home insulin detemir for now as is having nausea and do NovoLog supplemental insulin only Accu-Cheks before every meal and nightly (17) Hypertension: With hypertensive urgency as above Continue home hydralazine, carvedilol, IV hydralazine as needed (18) Polymyalgia rheumatica: Started on treatment for such in 02/2020 and follows with rheumatology as an outpatient Continue home prednisone 4 mg daily concern of pain could be from insufficient steroids, will check am cortisol on 08/08/20 Follow-up as an outpatient with rheumatology (19) Elevated troponin: Troponin mildly elevated here at 0.249 which is around or lower than where she has been in the past. She denies any chest pains This may be secondary to chronic elevation in the setting of ESRD and a known history of CAD (20) DVT prophylaxis: Heparin SQ, SCDs Admission and Anticipated Discharge Date Admission Date: August 05, 2020 Subjective this pt feels pain control is much better from a pain control and emotional standpoint Review of Systems Review of Systems: Mild distress and fatigue no headache, blurry or double vision no speech or swallowing issues no chest pain, pressure or palpitations no shortness of breath, cough or wheezes no abdominal pain, nausea or vomiting, diarrhea or constipation no dysuria, hematuria or frequency no focal joint pain lessened peripheral swelling no focal back pain, CVA tenderness or radicular pain, back pain much improved no bruising, bleeding or rashes no focal signs of weakness does have peripheral neuropathy no complaints of anxiety or depression.. Physical Exam Physical Exam: The patient appeared well nourished and normally developed. She is morbidly obese with a BMI of 40 she appears chronically ill on dialysis. Vital signs as documented. Head exam is normocephalic atraumatic no scleral icterus Neck is with mild JVD, thyromegaly, or carotid bruits. Lungs are clear to auscultation, but diminished at the bases no focal loss of breath sounds Cardiac exam, Rhythm is regular.. No murmurs, rubs or gallops. Abdominal exam reveals normal bowel sounds, soft non tender, no masses Extremities are 1+edematous and both pedal pulses are present Neurologic exam is alert and oriented, no focal loss of strength but does have peripheral neuropathy Skin is with some venous stasis changes on her lower extremities Psychologically is without concerns for anxiety or depression Results & Data Results & Data ([facility]) Vital Signs (Past 12 Hours) Vital Signs Temp Pulse Pulse Resp BP Pulse Ox 08/07/20 07:40 98.8 F 64 16 179/65 H 91 08/07/20 03:27 97.7 F 58 L 16 121/41 L 93 08/06/20 23:59 58 L 08/06/20 23:28 98.2 F 60 18 139/38 L 90 08/06/20 22:03 58 L 195/72 H 08/06/20 20:06 58 L 190/87 H PG Care Time/CCT Total # of Minutes Spent Total Time Spent with Patient: Total time spent is greater than 50% in coordination of care (as documented) at patient's floor/unit and/or counseling patient: Coding Level of Care Code 91582 Subseq Hosp Care Lvl 3 Diagnoses UTI (urinary tract infection) N39.0 Hypertensive urgency I16.0 Abdominal pain R10.9 Headache R51.9 Chronic respiratory failure with hypoxia J96.11 End-stage renal disease on hemodialysis N18.6; Z99.2 CHF (congestive heart failure) I50.9 Heart failure chronicity: acute on chronic Heart failure type: unspecified Restrictive lung disease J98.4 Depression with anxiety F41.8 Dyslipidemia E78.5 GERD without esophagitis K21.9 Obstructive sleep apnea G47.33 Hypothyroidism E03.9 Hypothyroidism type: unspecified Coronary artery disease I25.10 Anemia D64.9 Diabetes mellitus E11.22; N18.6; Z79.4; Z99.2 Chronic kidney disease stage: on chronic dialysis Diabetes mellitus complication detail: with chronic kidney disease Diabetes mellitus complication status: with kidney complications Diabetes mellitus buttermaker insulin use: with long-term use Diabetes mellitus type: type 2 Hypertension I10 Polymyalgia rheumatica M35.3 Elevated troponin R77.8 DVT prophylaxis Z29.9 (1) Diabetes mellitus Chronic kidney disease stage: on chronic dialysis Diabetes mellitus complication detail: with chronic kidney disease Diabetes mellitus complication status: with kidney complications Diabetes mellitus long-term insulin use: with long-term use Diabetes mellitus type: type 2 Qualified Code(s): E11.22 - Type 2 diabetes mellitus with diabetic chronic kidney disease; N18.6 - End stage renal disease; Z79.4 - correction (current) use of insulin; Z99.2 - Dependence on renal dialysis (2) CHF (congestive heart failure) Heart failure chronicity: acute on chronic Heart failure type: unspecified Qualified Code(s): I50.9 - Heart failure, unspecified (3) Hypothyroidism Hypothyroidism type: unspecified Qualified Code(s): E03.9 - Hypothyroidism, unspecified
[2020-08-07] MEDS: traMADol HCL 50 MG TABLET PO SCH ×2 (08:29→20:42)
[2020-08-07] MEDS: LORazepam 0.5 MG TAB PO PRN (08:29)
[2020-08-07] MEDS: carvediloL 25 MG TAB PO SCH ×2 (08:30→20:43)
[2020-08-07] MEDS: PANTOprazole 40 MG TAB PO SCH ×2 (08:30→20:43)
[2020-08-07] MEDS: GABAPENTIN 100 MG CAP PO SCH ×2 (08:30→20:43)
[2020-08-07] MEDS: HEPARIN SOD 5,000 UNIT/0.5 ML VIAL SQ SCH ×2 (08:31→20:43)
[2020-08-07] MEDS: ASPIRIN 81 MG ECTAB PO SCH (08:31)
[2020-08-07] MEDS: CALCIUM ACETATE 667 MG CAP/TAB PO SCH ×3 (08:31→16:46)
[2020-08-07] MEDS: predniSONE 1 MG TAB PO SCH (08:33)
[2020-08-07] MEDS: NYSTATIN POWDER 15GM BTL EXT SCH ×2 (08:33→20:43)
[2020-08-07] MEDS ORDERED: cefTRIAXone SODIUM 2,000 MG in DEXTROSE 5% 50 ML IV SCH (09:00)
[2020-08-07 09:15] LABS: BUN Creatinine Ratio 3.3 (10-20); Calcium 8.8 mg/dl (8.5-10.1); Creatinine Clr Calc Pharmacy 9.9 ml/min; Est GFR (African American) 8.6; Est GFR (Non-African American) 7.4; Magnesium 2.4 mg/dl (1.8-2.4); Potassium 3.6 mmol/L (3.5-5.1)
[2020-08-07] MEDS: hydrALAZINE TAB 50 MG TAB PO SCH ×3 (09:30→20:42)
--- NOTE | 2020-08-07 09:41 | Nephrology Progress Note ---
Date of Service August 07, 2020 Assessment & Plan (1) End-stage renal disease on hemodialysis: HD TTS. Volume status acceptable. Electrolytes controlled. Hyponatremia associated with clear liquid diet. AVF functioning well. Clearance acceptable. EDW to be adjusted. Shirley is 94.4 kg today. EDW has been ~100 kg. Medications appropriate for kidney function. (2) Acute UTI: Ceftriaxone appropriately dosed for kidney function. (3) Anemia: Chronic, stable. Maintained on Micera as outpatient. (4) Hypertension: Hydralazine increased from 25 mg TID to 50 mg TID this AM. Volume status acceptable. (5) Vitamin D deficiency: Maintained on calcium acetate QAC for hyperphosphatemia. Admission and Anticipated Discharge Date Admission Date: August 05, 2020 Subjective No acute events overnight. Tolerated HD yesterday without complications. Net UF 1.5 L. Overall, feeling much better this AM. Pain improved. BP remains elevated. Review of Systems Review of Systems: All systems reviewed & are unremarkable except as noted in HPI & below Physical Exam Constitutional: well developed and + obese; no acute distress Eyes: no scleral abnormality and no corneal abnormality ENMT: Mouth: no oral mucosal abnormality and oral mucous membranes not dry Neck: normal visual inspection and trachea midline Respiratory: normal respiratory effort Auscultation: lungs clear to auscultation bilaterally Cardiovascular: Rate/Rhythm: regular rate Heart Sounds: normal S1 and normal S2 Extremities: + AV fistula; no edema Musculoskeletal: Extremities: no cyanosis and no clubbing Skin: normal turgor; no lesions Neurologic: Motor/Sensory: no tremor and no asterixis Psychiatric: Orientation: alert and oriented x 3 Results & Data ([facility]) Vital Signs (Past 12 Hours) Vital Signs Temp Pulse Pulse Resp BP Pulse Ox 08/07/20 07:40 37.1 C 64 16 179/65 H 91 08/07/20 03:27 36.5 C 58 L 16 121/41 L 93 08/06/20 23:59 58 L 08/06/20 23:28 36.8 C 60 18 139/38 L 90 08/06/20 22:03 58 L 195/72 H Laboratory Results Laboratory Results - last 24 hr 08/06/20 08/06/20 08/07/20 14:46 20:53 07:36 Sodium Potassium Chloride Carbon Dioxide Anion Gap BUN Creatinine Est Cr Clr Drug Dosing Est GFR ( Amer) Est GFR (Non-Af Amer) BUN/Creatinine Ratio Glucose POC Glucose 104 H 93 88 Calcium Magnesium 08/07/20 08:20 Sodium 133 L Potassium 3.6 D Chloride 101 Carbon Dioxide 28 Anion Gap 5.0 BUN 18 Creatinine 5.24 H* D Est Cr Clr Drug Dosing 9.9 Est GFR ( Amer) 8.6 Est GFR (Non-Af Amer) 7.4 BUN/Creatinine Ratio 3.3 L Glucose 124 H POC Glucose Calcium 8.8 Magnesium 2.4 PG Care Time/CCT Total # of Minutes Spent Total Time Spent with Patient: Total time spent is greater than 50% in coordination of care (as documented) at patient's floor/unit and/or counseling patient: Coding Level of Care Code 14523 Subseq Hosp Care Lvl 3 Diagnoses End-stage renal disease on hemodialysis N18.6; Z99.2 Acute UTI N39.0 Anemia D64.9 Hypertension I10 Hypertension type: unspecified Vitamin D deficiency E55.9 (1) Hypertension Hypertension type: unspecified Qualified Code(s): I10 - Essential (primary) hypertension
[2020-08-07] MEDS: NEPHROCAPS PO SCH (12:49)
[2020-08-07] MEDS: CALCIUM CARBONATE 1250MG TAB PO SCH (16:46)
[2020-08-07] MEDS: LEVOTHYROXINE SODIUM 100 MCG TABLET PO SCH (20:42)
[2020-08-07] MEDS: FENOFIBRATE NANOCRYSTALLIZED 48 MG TABLET PO SCH (20:42)
[2020-08-07] MEDS: ESCITALOPRAM OXALATE 20 MG TAB PO SCH (20:43)
[2020-08-07] MEDS: ATORVASTATIN 20 MG TAB PO SCH (20:43)
[2020-08-08] MEDS ORDERED: SODIUM CHLORIDE 0.9% 1000ML 1,000 ML IV PRN (08:12)
[2020-08-08] MEDS ORDERED: HEPARIN SOD (PORCINE) 1000 UNIT/ML IV ONE (08:12)
[2020-08-08 08:23] LABS: BUN Creatinine Ratio 5.1 (10-20); Calcium 8.7 mg/dl (8.5-10.1); Creatinine Clr Calc Pharmacy 7.5 ml/min; Est GFR (African American) 6.2; Est GFR (Non-African American) 5.3; Potassium 4.1 mmol/L (3.5-5.1)
[2020-08-08] MEDS: hydrALAZINE TAB 50 MG TAB PO SCH ×3 (08:35→20:31)
[2020-08-08] MEDS: PANTOprazole 40 MG TAB PO SCH ×2 (08:36→20:34)
[2020-08-08] MEDS: CALCIUM ACETATE 667 MG CAP/TAB PO SCH ×3 (08:36→17:30)
[2020-08-08] MEDS: GABAPENTIN 100 MG CAP PO SCH ×2 (08:36→20:33)
[2020-08-08] MEDS: carvediloL 25 MG TAB PO SCH ×2 (08:37→20:31)
[2020-08-08] MEDS: predniSONE 1 MG TAB PO SCH (08:37)
[2020-08-08] MEDS: ASPIRIN 81 MG ECTAB PO SCH (08:37)
[2020-08-08] MEDS: NYSTATIN POWDER 15GM BTL EXT SCH ×2 (08:38→20:33)
[2020-08-08] MEDS: HEPARIN SOD 5,000 UNIT/0.5 ML VIAL SQ SCH ×2 (08:38→20:32)
[2020-08-08] MEDS: INSULIN ASPART 100 UNITS/ML 3 ML PEN SC SCH ×4 (08:40→20:40)
[2020-08-08] MEDS: traMADol HCL 50 MG TABLET PO SCH ×2 (08:43→20:36)
--- NOTE | 2020-08-08 09:21 | Nephrology Progress Note ---
Date of Service August 08, 2020 Assessment & Plan (1) End-stage renal disease on hemodialysis: HD TTS. Orders for treatment today entered into the EMR and reviewed with nurse. Remains below EDW. Will continue to challenge, set for 2 L today. Electrolytes controlled. AVF with good thrill and bruit. Clearances have been acceptable. 180 optiflux x 4 hours. Qb 350. EDW to be adjusted based on today's treatment. Will check weight post HD. Medications appropriate for kidney function. (2) Acute UTI: Ceftriaxone stopped yesterday. Cultures no growth. (3) Anemia: Chronic, stable. Maintained on Micera as outpatient. (4) Hypertension: Hydralazine increased from 25 mg TID to 50 mg TID yesterday. Anticipate some improvement today with HD. (5) Vitamin D deficiency: Maintained on calcium acetate QAC for hyperphosphatemia. Admission and Anticipated Discharge Date Admission Date: August 07, 2020 Subjective No acute events overnight. Shirley feels well this AM. Pain controlled. Strength continues to improve. Review of Systems Review of Systems: All systems reviewed & are unremarkable except as noted in HPI & below Physical Exam Constitutional: well developed and + obese; no acute distress Eyes: no scleral abnormality and no corneal abnormality ENMT: Mouth: no oral mucosal abnormality and oral mucous membranes not dry Neck: normal visual inspection and trachea midline Respiratory: normal respiratory effort Auscultation: lungs clear to auscultation bilaterally and + rales (few left base) Cardiovascular: Rate/Rhythm: regular rate Heart Sounds: normal S1 and normal S2 Extremities: + AV fistula; no edema Musculoskeletal: Extremities: no cyanosis and no clubbing Skin: normal turgor; no lesions Neurologic: Motor/Sensory: no tremor and no asterixis Psychiatric: Orientation: alert and oriented x 3 Results & Data ([facility]) Vital Signs (Past 12 Hours) Vital Signs Temp Pulse Resp BP Pulse Ox 08/08/20 07:00 36.7 C 59 L 20 177/69 H 94 08/07/20 22:33 36.9 C 62 20 158/64 H 91 08/07/20 21:24 163/78 H Laboratory Results Laboratory Results - last 24 hr 08/07/20 08/07/20 08/07/20 11:09 16:08 20:06 Sodium Potassium Chloride Carbon Dioxide Anion Gap BUN Creatinine Est Cr Clr Drug Dosing Est GFR ( Amer) Est GFR (Non-Af Amer) BUN/Creatinine Ratio Glucose POC Glucose 121 H 151 H 133 H Calcium Cortisol AM Sample 08/08/20 08/08/20 08/08/20 07:05 07:05 07:26 Sodium 132 L Potassium 4.1 Chloride 99 Carbon Dioxide 26 Anion Gap 7.0 BUN 35 H D Creatinine 6.92 H* D Est Cr Clr Drug Dosing 7.5 Est GFR ( Amer) 6.2 Est GFR (Non-Af Amer) 5.3 BUN/Creatinine Ratio 5.1 L Glucose 109 H POC Glucose 111 H Calcium 8.7 Cortisol AM Sample 27.50 H PG Care Time/CCT Total # of Minutes Spent Total Time Spent with Patient: Total time spent is greater than 50% in c oordination of care (as documented) at patient's floor/unit and/or counseling patient: Coding Level of Care Code 64081 Subseq Hosp Care Lvl 3 Diagnoses End-stage renal disease on hemodialysis N18.6; Z99.2 Acute UTI N39.0 Anemia D64.9 Hypertension I10 Hypertension type: unspecified Vitamin D deficiency E55.9 (1) Hypertension Hypertension type: unspecified Qualified Code(s): I10 - Essential (primary) hypertension
[2020-08-08] MEDS: HEPARIN SOD (PORCINE) 1000 UNIT/ML IV SCH (12:32)
[2020-08-08] MEDS: NEPHROCAPS PO SCH (14:49)
--- NOTE | 2020-08-08 16:19 | Hospitalist Progress Note ---
Date of Service August 08, 2020 Assessment & Plan (1) UTI (urinary tract infection): With evidence of UTI along with symptoms starting on 07/30, with headaches, nausea, lower back pain and mid abdominal pain, and myalgias at home for 1 week Urine culture from 07/30 growing E. coli resistant to ampicillin and ampicillin/sulbactam, failed treatment with Bactrim and Macrobid as an outpatient No evidence of sepsis Concern for acute pyelonephritis given ongoing nausea, abdominal pain and lower back pain however CT scan as below has ruled that out Needs symptomatic pain control urine culture is not confirmatory, will stop antibiotics CT abdomen/pelvis IMPRESSION: 1. There are no acute infectious or inflammatory findings in the abdomen or pelvis. 2. Moderate sigmoid diverticulosis without CT evidence of acute diverticulitis. 3. Cardiomegaly. 4. Renal cortical atrophy is similar to previous. -Tylenol and oral opiates to help her significant back pain, overall neurontin helped the most (2) Hypertensive urgency: Blood pressures in the 220s systolic upon arrival with headache May be influenced by her pain from recent medication changes chronically mildly elevated troponin. She does have end-stage renal disease on dialysis. Also was recently started on bupropion 6 days ago which could increase blood pressure -Was given IV hydralazine in the ER and will continue this as needed systolic blood pressure greater than 180 -Continue home medications of p.o. hydralazine, carvedilol -stop bupropion (3) Abdominal pain: As above, likely related to UTI/possible acute pyelonephritis CT abdomen/pelvis without intra abdominal pathology abdominal pain improved with pain control stopping antibiotics 08/07 (4) Headache: Possibly related to uncontrolled htn and uti CT head without intracranial abnormalities morphine, oxycodone, Tylenol as needed Negative Covid-19 (5) Chronic respiratory failure with hypoxia: Is on 3 L nasal cannula with exertion at home and with her BiPAP at nighttime No acute issues (6) End-stage renal disease on hemodialysis: Is on a Wednesday dialysis schedule Consult nephrology for inpatient dialysis Continue usual home medications with calcium acetate, prorenal (7) CHF (congestive heart failure): With chronic diastolic CHF No acute issues Continue blood pressure control as above Is on dialysis for volume management (8) Restrictive lung disease: Follows with pulmonology/sleep medicine Continue supplemental O2 as above (9) Depression with anxiety: Recently switched from Zoloft back to Lexapro and started on Wellbutrin Continue Lexapro (10) Dyslipidemia: Continue renally dosed fenofibrate (11) GERD without esophagitis: Continue PPI No acute issues but has a history of incarcerated ventral incisional hernia and abdominal adhesions and hiatal hernia Currently following with bariatric surgeon at [facility] and having outpatient esophageal studies performed to include manometry (12) Obstructive sleep apnea: Continue BiPAP 05/06 nightly with oxygen (13) Hypothyroidism: TSH normal 05/2020 Continue home levothyroxine (14) Coronary artery disease: minimal nonobstructive CAD on 2018 cath - performed by Dr Qureshi. cont fenofibrate, aspirin, beta ramesh for secondary prevention (15) Anemia: Secondary to ESRD Hemoglobin mildly low at 11.3 but around 2 improved from her baseline Managed by nephrology (16) Diabetes mellitus: Hemoglobin A1c 5.7% but may not be accurate in the setting of end-stage renal disease Hold home insulin detemir for now as is having nausea and do NovoLog supplemental insulin only Accu-Cheks before every meal and nightly (17) Hypertension: With hypertensive urgency as above Continue home hydralazine, carvedilol, IV hydralazine as needed (18) Polymyalgia rheumatica: Started on treatment for such in 02/2020 and follows with rheumatology as an outpatient Continue home prednisone 4 mg daily concern of pain could be from insufficient steroids, check am cortisol on 08/08/20 27.50 Follow-up as an outpatient with rheumatology (19) Elevated troponin: Troponin mildly elevated here at 0.249 which is around or lower than where she has been in the past. She denies any chest pains This may be secondary to chronic elevation in the setting of ESRD and a known history of CAD (20) DVT prophylaxis: Heparin SQ, SCDs Admission and Anticipated Discharge Date Admission Date: August 07, 2020 Subjective No acute events overnight. Shirley feels well this AM. Pain controlled. Strength continues to improve. Pt wishes to resume her typical home regiment of pain and depression meds Review of Systems Review of Systems: Mild distress and fatigue no headache, blurry or double vision no speech or swallowing issues no chest pain, pressure or palpitations no shortness of breath, cough or wheezes no abdominal pain, nausea or vomiting, diarrhea or constipation no dysuria, hematuria or frequency no focal joint pain lessened peripheral swelling no focal back pain, CVA tenderness or radicular pain, back pain much improved no bruising, bleeding or rashes no focal signs of weakness does have peripheral neuropathy no complaints of anxiety or depression.. Physical Exam Physical Exam: The patient appeared well nourished and normally developed. She is morbidly obese with a BMI of 40 she appears chronically ill on dialysis. Vital signs as documented. Head exam is normocephalic atraumatic no scleral icterus Neck is with mild JVD, thyromegaly, or carotid bruits. Lungs are clear to auscultation, but diminished at the bases no focal loss of breath sounds Cardiac exam, Rhythm is regular.. No murmurs, rubs or gallops. Abdominal exam reveals normal bowel sounds, soft non tender, no masses Extremities are 1+edematous and both pedal pulses are present Neurologic exam is alert and oriented, no focal loss of strength but does have peripheral neuropathy Skin is with some venous stasis changes on her lower extremities Psychologically is without concerns for anxiety or depression Results & Data Results & Data ([facility]) Vital Signs (Past 12 Hours) Vital Signs Temp Pulse Pulse Pulse Resp BP BP 08/08/20 14:35 99.0 F 60 18 152/91 H 08/08/20 13:32 99.1 F 55 L 55 L 163/65 H 163/65 H 08/08/20 13:20 55 L 145/61 H 08/08/20 13:00 55 L 142/70 H 08/08/20 12:40 55 L 152/116 H 08/08/20 12:20 53 L 122/58 L 08/08/20 12:00 54 L 131/61 08/08/20 11:40 55 L 150/62 H 08/08/20 11:20 55 L 151/66 H 08/08/20 11:00 57 L 159/63 H 08/08/20 10:40 54 L 154/70 H 08/08/20 10:20 57 L 161/68 H 08/08/20 10:00 58 L 169/71 H 08/08/20 09:40 58 L 171/77 H 08/08/20 09:29 99.0 F 62 62 170/72 H 08/08/20 07:00 98.1 F 59 L 20 177/69 H Pulse Ox 08/08/20 14:35 93 08/08/20 13:32 08/08/20 13:20 08/08/20 13:00 08/08/20 12:40 08/08/20 12:20 08/08/20 12:00 08/08/20 11:40 08/08/20 11:20 08/08/20 11:00 08/08/20 10:40 08/08/20 10:20 08/08/20 10:00 08/08/20 09:40 08/08/20 09:29 08/08/20 07:00 94 PG Care Time/CCT Total # of Minutes Spent Total Time Spent with Patient: Total time spent is greater than 50% in coordination of care (as documented) at patient's floor/unit and/or counseling patient: Coding Level of Care Code 56768 Subseq Hosp Care Lvl 2 Diagnoses UTI (urinary tract infection) N39.0 Hypertensive urgency I16.0 Abdominal pain R10.9 Headache R51.9 Chronic respiratory failure with hypoxia J96.11 End-stage renal disease on hemodialysis N18.6; Z99.2 CHF (congestive heart failure) I50.9 Heart failure chronicity: acute on chronic Heart failure type: unspecified Restrictive lung disease J98.4 Depression with anxiety F41.8 Dyslipidemia E78.5 GERD without esophagitis K21.9 Obstructive sleep apnea G47.33 Hypothyroidism E03.9 Hypothyroidism type: unspecified Coronary artery disease I25.10 Anemia D64.9 Diabetes mellitus E11.22; N18.6; Z79.4; Z99.2 Diabetes mellitus type: type 2 Diabetes mellitus mcc insulin use: with mcc use Diabetes mellitus complication status: with kidney complications Diabetes mellitus complication detail: with chronic kidney disease Chronic kidney disease stage: on chronic dialysis Hypertension I10 Polymyalgia rheumatica M35.3 Elevated troponin R77.8 DVT prophylaxis Z29.9 (1) CHF (congestive heart failure) Heart failure chronicity: acute on chronic Heart failure type: unspecified Qualified Code(s): I50.9 - Heart failure, unspecified (2) Hypothyroidism Hypothyroidism type: unspecified Qualified Code(s): E03.9 - Hypothyroidism, unspecified (3) Diabetes mellitus Diabetes mellitus type: type 2 Diabetes mellitus mcc insulin use: with mcc use Diabetes mellitus complication status: with kidney complications Diabetes mellitus complication detail: with chronic kidney disease Chronic kidney disease stage: on chronic dialysis Qualified Code(s): E11.22 - Type 2 diabetes mellitus with diabetic chronic kidney disease; N18.6 - End stage renal disease; Z79.4 - tank terminal gauger (current) use of insulin; Z99.2 - Dependence on renal dialysis
[2020-08-08] MEDS: CALCIUM CARBONATE 1250MG TAB PO SCH (17:30)
[2020-08-08] MEDS ORDERED: ALUMINUM/MAGNESIUM SUSP 30 ML UDC PO ONE (17:43)
[2020-08-08] MEDS: ONDANSETRON INJ 2 MG/ML 2 ML VIAL IV PRN (17:59)
[2020-08-08] MEDS: FENOFIBRATE NANOCRYSTALLIZED 48 MG TABLET PO SCH (20:32)
[2020-08-08] MEDS: ESCITALOPRAM OXALATE 20 MG TAB PO SCH (20:32)
[2020-08-08] MEDS: ATORVASTATIN 20 MG TAB PO SCH (20:33)
[2020-08-08] MEDS: LEVOTHYROXINE SODIUM 100 MCG TABLET PO SCH (20:34)
[2020-08-09 07:26] LABS: Hematocrit (blood only) 38.1 % (37-47); Hemoglobin 11.6 g/dL (12.0-16.0); Mean Corpuscular Hemoglobin 31.8 pg (25-34); Mean Corpuscular Hgb Conc 30.4 g/dL (32-36); Mean Corpuscular Volume 104.4 fL (80-100); Mean Platelet Volume 9.9 fL (7.4-10.4); Platelet Count 164 K/uL (130-400); RDW Standard Deviation 60.9 fL (36.4-46.3); Red Blood Count 3.65 M/uL (4.2-5.4); White Blood Count 6.59 K/uL (4.8-10.8)
[2020-08-09] MEDS: ASPIRIN 81 MG ECTAB PO SCH (07:35)
[2020-08-09] MEDS: predniSONE 1 MG TAB PO SCH (07:35)
[2020-08-09] MEDS: PANTOprazole 40 MG TAB PO SCH (07:36)
[2020-08-09] MEDS: GABAPENTIN 100 MG CAP PO SCH (07:36)
[2020-08-09] MEDS: hydrALAZINE TAB 50 MG TAB PO SCH (07:36)
[2020-08-09] MEDS: carvediloL 25 MG TAB PO SCH (07:36)
[2020-08-09] MEDS: CALCIUM ACETATE 667 MG CAP/TAB PO SCH (07:37)
[2020-08-09] MEDS: HEPARIN SOD 5,000 UNIT/0.5 ML VIAL SQ SCH (07:37)
[2020-08-09] MEDS: NYSTATIN POWDER 15GM BTL EXT SCH (07:38)
[2020-08-09] MEDS: traMADol HCL 50 MG TABLET PO SCH (07:40)
[2020-08-09 08:09] LABS: BUN Creatinine Ratio 5.1 (10-20); Calcium 8.8 mg/dl (8.5-10.1); Creatinine Clr Calc Pharmacy 10.4 ml/min; Est GFR (African American) 8.8; Est GFR (Non-African American) 7.6; Potassium 3.5 mmol/L (3.5-5.1)
[2020-08-09] MEDS: INSULIN ASPART 100 UNITS/ML 3 ML PEN SC SCH (08:14)
--- NOTE | 2020-08-09 17:09 | Discharge Summary ---
Date of Service August 09, 2020 Admission HPI Per Admitting Provider This patient is a 75-year-old female with a past medical history significant for restrictive lung disease (hypoventilation syndrome from obesity) on chronic O2 3L NC, HFpEf, LBBB, ESRD on HD, anxiety with depression, diabetic retinopathy, dyslipidemia, GERD/upper motility disorder, insomnia, TASH on BiPAP, PMR on chronic steroids, hypothyroidism, CAD, diabetes mellitus and hypertension who presents to the ER with persistent nausea, low back pain, body aches and chills, headache and weakness after being treated for UTI by her PCP 6 days ago. She was having dysuria and foul-smelling urine along with confusion and chills approximately 1 week ago. She was started on Bactrim and did not feel better. She was then switched to Macrobid. Her urine culture is growing E. coli which is only resistant to ampicillin and Unasyn, however she did not improve. She continues to have symptoms as noted above. She is having some mid abdominal pain and lower mid back pain worse than her usual chronic lower back pain. She has a history of sepsis from UTIs. Her confusion has cleared up however in the last week it seems. In the ER, she was afebrile and significantly hypertensive at 222 systolic. She did not have a leukocytosis and her chemistry was most notable for creatinine of 7.3 she is due for dialysis tomorrow. She was treated with IV hydralazine, IV cefepime, and IV Zofran for her nausea. She will be admitted for failure of outpatient treatment for UTI and likely with acute pyelonephritis. Principal Diagnosis toxic encephalopathy hypertensive urgency Discharge Exam The patient appeared chronically ill Vital signs as documented. Lungs are clear to auscultation and appear unlabored Cardiac exam, Rhythm is regular.. No murmurs, rubs or gallops. Abdominal exam reveals normal bowel sounds, soft non tender, no masses Extremities are 1+edematous and both pedal pulses are normal. Neurologic exam is alert and oriented, no focal loss of strength or sensation Skin is without bruises or rashes Psychologically is without concerns for anxiety or depression. Discharge Data Allergies Allergy/AdvReac Type Severity Reaction Status Date / Time lisinopril AdvReac Intermediate cough Verified 07/30/20 14:15 Consultations 08/05/20 12:40 ED Decision to Admit Stat 08/05/20 13:12 Consult Nephrology Routine 08/05/20 16:14 Consult Case Management - Discharge Planning Routine Ordered Studies 08/05/20 12:57 CT abd pelvis wo con Stat CT head/brain wo con Stat Hospital Course (1) UTI (urinary tract infection): With evidence of UTI along with symptoms starting on 07/30, with headaches, nausea, lower back pain and mid abdominal pain, and myalgias at home for 1 week Urine culture from 07/30 growing E. coli resistant to ampicillin and ampicillin/sulbactam, failed treatment with Bactrim and Macrobid as an outpatient No evidence of sepsis Concern for acute pyelonephritis given ongoing nausea, abdominal pain and lower back pain however CT scan as below has ruled that out Needs symptomatic pain control urine culture is not confirmatory, will stop antibiotics CT abdomen/pelvis IMPRESSION: 1. There are no acute infectious or inflammatory findings in the abdomen or pelvis. 2. Moderate sigmoid diverticulosis without CT evidence of acute diverticulitis. 3. Cardiomegaly. 4. Renal cortical atrophy is similar to previous. -Tylenol and oral opiates to help her significant back pain, overall neurontin helped the most (2) Hypertensive urgency: Blood pressures in the 220s systolic upon arrival with headache May be influenced by her pain from recent medication changes chronically mildly elevated troponin. She does have end-stage renal disease on dialysis. Also was recently started on bupropion 6 days ago which could increase blood pressure -Was given IV hydralazine in the ER and will continue this as needed systolic blood pressure greater than 180 -Continue home medications of p.o. hydralazine, carvedilol -stop bupropion (3) Abdominal pain: As above, likely related to UTI/possible acute pyelonephritis CT abdomen/pelvis without intra abdominal pathology abdominal pain improved with pain control stopping antibiotics 08/07 (4) Headache: Possibly related to uncontrolled htn and uti CT head without intracranial abnormalities morphine, oxycodone, Tylenol as needed Negative Covid-19 (5) Chronic respiratory failure with hypoxia: Is on 3 L nasal cannula with exertion at home and with her BiPAP at nighttime No acute issues (6) End-stage renal disease on hemodialysis: Is on a Wednesday dialysis schedule Consult nephrology for inpatient dialysis Continue usual home medications with calcium acetate, prorenal (7) CHF (congestive heart failure): With chronic diastolic CHF No acute issues Continue blood pressure control as above Is on dialysis for volume management (8) Restrictive lung disease: Follows with pulmonology/sleep medicine Continue supplemental O2 as above (9) Depression with anxiety: Recently switched from Zoloft back to Lexapro and started on Wellbutrin Continue Lexapro (10) Dyslipidemia: Continue renally dosed fenofibrate (11) GERD without esophagitis: Continue PPI No acute issues but has a history of incarcerated ventral incisional hernia and abdominal adhesions and hiatal hernia Currently following with bariatric surgeon at [facility] and having outpatient esophageal studies performed to include manometry (12) Obstructive sleep apnea: Continue BiPAP 05/06 nightly with oxygen (13) Hypothyroidism: TSH normal 05/2020 Continue home levothyroxine (14) Coronary artery disease: minimal nonobstructive CAD on 2018 cath - performed by Dr Qureshi. cont fenofibrate, aspirin, beta ramesh for secondary prevention (15) Anemia: Secondary to ESRD Hemoglobin mildly low at 11.3 but around 2 improved from her baseline Managed by nephrology (16) Diabetes mellitus: Hemoglobin A1c 5.7% but may not be accurate in the setting of end-stage renal disease Hold home insulin detemir for now as is having nausea and do NovoLog supplemental insulin only Accu-Cheks before every meal and nightly (17) Hypertension: With hypertensive urgency as above Continue home hydralazine, carvedilol, IV hydralazine as needed (18) Polymyalgia rheumatica: Started on treatment for such in 02/2020 and follows with rheumatology as an outpatient Continue home prednisone 4 mg daily concern of pain could be from insufficient steroids, check am cortisol on 08/08/20 27.50 Follow-up as an outpatient with rheumatology (19) Elevated troponin: Troponin mildly elevated here at 0.249 which is around or lower than where she has been in the past. She denies any chest pains This may be secondary to chronic elevation in the setting of ESRD and a known history of CAD Total Time Total Time Spent Total Time Spent (In Minutes): discharge required greater than 30 minutes Discharge Plan Discharge Items Patient Disposition: Home - Home Health Services Reason For Visit: UTI HYPERTENSIVE URGENCY Discharge Diagnosis: toxic encepalopathy Condition on Discharge: Fair Activity: Resume your previous activity Non-emergency contact: Primary Care Provider and Semiconductor Dies Loader Call non-emergency contact if: you have any medication questions and your symptoms worsen Follow-up/Referrals: Pro,Julito Grijalva MD [Primary Care Provider] - 08/15/20 10:15 am (Your appointment is with the doctor's physician print shop assistant, Archana Cedeño. If you need to change this appointment, please call [phone].) Diet: Carb Consistent or DM2 and Dialysis Renal Addtl Attending Provider Instructions: please only take the medicine as prescribed, we are restarting your gabapentin and have sent a Rx to the pharmacy. please follow up with your primary care doctor, and continue your outpt dialysis schedule Pending Studies at Discharge: No Stand-Alone Forms: My [place], Smoking Cessation Medications and DC Order Prescriptions: New gabapentin 100 mg Capsule 200 mg PO BID Qty: 60 RF: 3 Continued (DME) pen needle, diabetic [BD Ultra-Fine Short Pen Needle] 31 gauge x 5/16" needle See Dose Instructions .ROUTE .MEDSUPPLY Qty: 60 RF: 5 atorvastatin 20 mg tablet 20 mg PO HS Qty: 90 RF: 3 Hold Instructions: muscle pain carvedilol 25 mg tablet 25 mg PO BID Qty: 180 RF: 3 pantoprazole 40 mg tablet,delayed release (DR/EC) 40 mg PO BID 90 Days Qty: 180 RF: 3 Levemir FlexTouch U-100 Insuln 100 unit/mL (3 mL) insulin pen 20 unit subcut BID Qty: 15 RF: 5 prednisone 1 mg tablet 4 mg PO DAILY Qty: 120 RF: 2 lorazepam 0.5 mg tablet 0.5 mg PO BID PRN (Reason: anxiety; difficulty swallowing) Qty: 30 RF: 0 hydralazine 25 mg tablet 25 mg PO TID 90 Days Qty: 270 RF: 1 (DME) OneTouch Ultra Blue Test Strip Strip See Rx Instructions .ROUTE .MEDSUPPLY RF: 0 escitalopram oxalate [Lexapro] 20 mg tablet 20 mg PO HS Qty: 30 RF: 0 tramadol 50 mg tablet 50 mg PO BID Qty: 60 RF: 2 magnesium oxide 400 mg magnesium capsule 400 mg PO QAM RF: 0 calcium carbonate [Calcium 500] 500 mg calcium (1,250 mg) tablet 500 mg PO QDD RF: 0 acetaminophen [Tylenol Extra Strength] 500 mg Tablet 1,000 mg PO Q6H PRN (Reason: Pain) RF: 0 ProRenal 8 mg iron-800 mcg-1,000 unit tablet 1 tab PO QDL RF: 0 (DME) Oxygen Home Liters Per Minute See Rx Instructions .ROUTE .MEDSUPPLY Qty: 1 RF: 0 ondansetron HCl 8 mg tablet 8 mg PO Q8H PRN (Reason: Nausea) RF: 0 aspirin 81 mg Tablet,Delayed Release (Dr/Ec) 81 mg PO QAM RF: 0 calcium acetate(phosphat bind) 667 mg capsule 1,334 mg PO TIDM RF: 0 levothyroxine 100 mcg tablet 100 mcg PO QPM RF: 0 fenofibrate nanocrystallized [Tricor] 48 mg tablet 48 mg PO QPM RF: 0 Discontinued nitrofurantoin monohyd/m-cryst [Macrobid] 100 mg capsule 100 mg PO BID Qty: 10 RF: 0 bupropion HCl 75 mg tablet 75 mg PO QPM RF: 0 Discharge Orders: Discharge Order (Routine); Ordered 08/09/20 Ordered By: Savage Dial Admission Data Admit Date/Time: 08/07/20 17:41 Attending Provider: Savage Dial Admit Provider: Mary Camejo Primary Care Provider: Julito Burt Other Providers: [facility]Home [facility] ; Mary Camejo ; Hugo Patrick Other Interventions: Discharge Summary Assessment (RN) Last Done: 08/09/20 07:16 Coding Level of Care Code D/C Day Management >30 mins Diagnoses UTI (urinary tract infection) N39.0 Hypertensive urgency I16.0 Abdominal pain R10.9 Headache R51.9 Chronic respiratory failure with hypoxia J96.11 End-stage renal disease on hemodialysis N18.6; Z99.2 CHF (congestive heart failure) I50.9 Heart failure chronicity: acute on chronic Heart failure type: unspecified Restrictive lung disease J98.4 Depression with anxiety F41.8 Dyslipidemia E78.5 GERD without esophagitis K21.9 Obstructive sleep apnea G47.33 Hypothyroidism E03.9 Hypothyroidism type: unspecified Coronary artery disease I25.10 Anemia D64.9 Diabetes mellitus E11.22; N18.6; Z79.4; Z99.2 Diabetes mellitus type: type 2 Diabetes mellitus mcfp insulin use: with mcfp use Diabetes mellitus complication status: with kidney complications Diabetes mellitus complication detail: with chronic kidney disease Chronic kidney disease stage: on chronic dialysis Hypertension I10 Polymyalgia rheumatica M35.3 Elevated troponin R77.8
--- NOTE | 2020-08-15 08:07 | Coding Query ---
CODING QUERY To promote full compliance with coding requirements relating to patient care, provider participation is requested in all cases of oil change technician uncertainty. Please assist us with the question(s) below: Coding Question(s): Progress notes document UTI . Pt with prior UC -positive for E.Coli. CT abdomen ruled out pyelonephritis. Discharge Summary documents prin dx of toxic encephalopathy, with UTI documented further in DS .Please document, if known or suspected, the etiology of the toxic encephalopathy. Thanks for your help. Alberto Bahena [facility] Physician's Response(s): toxic encephalopathy secondary to home medications Principal Diagnosis: "that condition established after study, to be chiefly responsible for occasioning the admission of the patient to the hospital for care." Co-Existing Principal Diagnosis: "when two or more diagnoses equally meet the criteria for principal diagnosis as determined by the circumstances of admission, diagnostic work up, and/or therapy provided, and the Alphabetic Index, Tabular List, or another coding guideline does not provide sequencing direction, any one of the diagnoses may be sequenced first." "When the physician has documented what appears to be a current diagnosis in the body of the record, but has not included the diagnosis in the final diagnostic statement, the physician should be asked whether the diagnosis should be added." (Source Coding Clinic 2 QTR90. p3-4) EMILYD
== END 2020-08-09 09:20 | disposition home health service (06) | DRG 689 ==
LOC: ED 09:32 → 2E 09:32 → SUATTDRO 13:12 → 2E 15:00 → 2W 08-07 18:55

== ENCOUNTER 2020-12-09 04:11 | Inpatient (IN) ==
--- NOTE | 2020-12-09 04:49 | Emergency Department Note ---
Impression & Plan Acute hyperkalemia, Fall, Weakness ED Provider Note NAME: LITO MOHR AGE: 75 SEX: F ARRIVES VIA: Ambulance INFORMANT: Patient and her daughter ED PROVIDER(S): Tere Sheth DO CHIEF COMPLAINT: Fall PLAN: Disposition: [facility]. Condition: Stable MEDICAL DECISION MAKING: This is a 75-year-old female patient who tripped over a floor fan going to the bathroom and fell to the ground. Patient was unable to get up off the ground secondary to weakness. EMS was called and she was transported here. Patient complained of left shoulder pain and numbness and tingling in both arms. Patient does have a history of rotator cuff injury to the left arm. Upon presentation to the emergency department, the patient states her pain is essentially at its baseline. The patient states that she took a Flexeril for some chronic back pain before going to bed tonight. This could have made her more weak than usual. Patient does admit that she has been feeling weak over the past couple of days. Laboratory studies Triage Nursing notes reviewed and agree with them. Additional history obtained from patient's daughter who is at the bedside Prior medical records reviewed Vital Signs: reviewed and remarkable for hypertension Differential diagnosis: Hypoglycemia, electrolyte abnormality, dehydration ER treatment provided: IV calcium gluconate IV dextrose IV insulin Diagnostics interpreted by me: ECG: Normal sinus rhythm at a rate of 73 with PACs. There is no ST segment e levation or signs of ischemia. The P waves are slightly more peaked in comparison to an EKG from August 2020. There is no appreciable QRS widening. Cardiac Monitoring: Normal sinus rhythm at a rate of 71 Laboratory studies: See below Consultants: Dr. Guerra HPI: 75/F arrives for evaluation of fall. The patient was going from the bathroom back to the bedroom when she tripped over a fan that was on the floor and fell to the ground. She landed on her left shoulder and left arm. The patient has a known injury to her left rotator cuff and seemed to injure this some more. Patient states that when she initially fell she had numbness and tingling in both arms because they were up underneath of her. But that has since subsided. The patient denies striking her head or neck during the fall. She did not lose consciousness. Patient states that she has been having chronic hip pain, knee pain and leg pain. The patient took some Flexeril tonight for her symptoms and this could have also contributed to her weakness. ROS: See above HPI for pertinent positives & negatives. A total of 10 systems reviewed and were otherwise negative. PAST MEDICAL HISTORY:See Below PAST SURGICAL HISTORY:See Below FAMILY HISTORY:See Below SOCIAL HISTORY:See Below HOME MEDICATIONS:See list ALLERGIES:See list VITALS:See Below PHYSICAL EXAMINATION: HEENT: Head - normocephalic and atraumatic. Pupils are equal, round, and reactive to light. Extraocular eye muscles are intact and sclera are anicteric. Ears - bilaterally patent canals with no evidence of hemotympanum. Nose - moist nasal mucosa without evidence of trauma or discharge. Mouth - moist buccal mucosa with no trauma to the teeth or signs of malocclusion. Neck: The neck is supple and there is no pain to palpation over the posterior cervical spine and no obvious step-offs or deformities. There is no JVD or tracheal deviation. Chest: There are no signs of deformities, contusions or abrasions to the chest wall. There is no obvious crepitus or paradoxical chest rise. Heart: Regular, rate, and rhythm. There is a normal S1 and S2 with no murmurs, clicks, or gallops appreciated. Lungs: Clear to auscultation bilaterally with no wheezes, rales, or rhonchi. Abdomen: Soft, completely nontender, nondistended, with good bowel sounds. There is no sign of trauma such as contusions, abrasions or penetrations. There are no palpable pulsatile masses or hepatosplenomegaly. There is no guarding, rigidity, or rebound noted. Pelvis: Stable to rock and compression. Extremities: The patient has skin tears noted to the left hand and left forearm. She has a small abrasion noted to the right knee. Other extremities are without evidence of trauma. There are easily palpable peripheral pulses. Neuro: The patient is awake and alert and easily able to follow commands. Muscle strength is 5 out of 5 in all 4 extremities. Otherwise, neuro exam is unremarkable. ED COURSE: Times/Reassessments: 0415: The patient was evaluated in room A 9. A complete history and physical was performed. Laboratory studies were drawn as above. A twelve-lead EKG was obtained. An order was placed for continuous cardiac monitoring. The patient is in a normal sinus rhythm at 71. Laboratory studies revealed significant hyperkalemia. Patient was given 10 units of IV insulin along with an amp of D50. Patient was also given calcium gluconate . I discussed the case with Dr. Guerra from nephrology and he will arrange for emergent dialysis this morning. I discussed the [facility] and they will evaluate for further management. Tere Sheth DO Past Med/Surg History Medical History Acute hyperkalemia Anemia Arthritis Coronary artery disease Depression with anxiety Diabetes Diabetes mellitus Diabetic retinopathy Dyslipidemia End-stage renal disease on hemodialysis GERD without esophagitis Hernia, hiatal History of thrombophlebitis Hypertension Hypothyroidism Insomnia Laceration of left lower extremity Macular puckering, bilateral Obstructive sleep apnea Panniculitis Paresthesias Polyarthritis Tubular adenoma of colon URI (upper respiratory infection) Vitamin D deficiency Surgical History H/O: hysterectomy History of bladder surgery History of cataract surgery History of nasal septoplasty S/P arteriovenous (AV) fistula creation S/P hysterectomy S/P repair of paraesophageal hernia S/P rotator cuff repair Family History Mother Leukemia Cerebral aneurysm Hypertension Anxiety Diabetes Grandmother Hypertension Father Osteoarthritis COPD (chronic obstructive pulmonary disease) Diabetes Sister Diabetes Myocardial infarction COPD (chronic obstructive pulmonary disease) Brother Myocardial infarction Diabetes Denies family history of Ovarian cancer Prostate cancer Breast cancer Colorectal cancer Social History Smoking Status: Never smoker Second Hand Exposure: No; Hx Alcohol Use: No Hx Substance Use: No Preferred Language: Cypriot Communication Ability: Effective Visual Impairment: No Limitations Hearing Ability: Normal Intensive Care Specialist Required: No Beliefs That Will Affect Care: None marital status: Current Living Situation: Spouse current occupational status: retired Feels Safe at Home: Yes Dental Care, Regularly: No Physical Activity Frequency: 1-2 Times per Week Seatbelt Use: always Assistive Devices: Denture - Upper Allergies Allergies Allergy/AdvReac Type Severity Reaction Status Date / Time lisinopril AdvReac Intermediate cough Verified 11/25/20 11:38 Home Meds Home Medications Medication Instructions Recorded Confirmed aspirin 81 mg PO QAM 06/16/18 11/25/20 calcium acetate(phosphat bind) 1,334 mg PO TIDM 07/26/18 11/25/20 magnesium oxide 400 mg PO QAM cap 12/20/18 11/25/20 calcium carbonate 500 mg calcium 500 mg PO QDD 08/10/19 11/25/20 (1,250 mg) tablet acetaminophen [Tylenol Extra 1,000 mg PO Q6H PRN 11/07/19 11/25/20 Strength] ProRenal 1 tab PO QDL 02/27/20 11/25/20 ondansetron HCl 8 mg PO Q8H PRN 06/24/20 11/25/20 fenofibrate nanocrystallized 48 mg PO QPM 08/05/20 11/25/20 [Tricor] Previous Rx's Medication Instructions Recorded Oxygen Home #1 ea 02/29/20 insulin detemir U-100 100 unit/mL 20 unit SUBCUT BID #15 ml 05/14/20 (3 mL) subcutaneous pen prednisone 1 mg tablet 4 mg PO DAILY #120 tab 05/22/20 lorazepam 0.5 mg tablet 0.5 mg PO BID PRN #30 tab 06/28/20 tramadol 50 mg tablet 50 mg PO BID #60 tab 07/23/20 hydralazine 25 mg tablet 25 mg PO TID 90 Days #270 tab 08/01/20 escitalopram oxalate 20 mg tablet 20 mg PO HS #30 tab 09/02/20 gabapentin 100 mg capsule 200 mg PO BID #360 cap 10/08/20 atorvastatin 20 mg tablet 20 mg PO HS #90 tab 11/19/20 carvedilol 25 mg tablet 25 mg PO BID #180 tab 11/19/20 levothyroxine 100 mcg tablet 100 mcg PO QPM #90 tab 11/19/20 pantoprazole 40 mg tablet,delayed 40 mg PO BID 90 Days #180 tab 11/19/20 release pen needle, diabetic 31 gauge x #60 ea 11/19/2010/13" blood sugar diagnostic #100 ea 11/27/20 blood-glucose meter #1 ea 11/27/20 lancets 33 gauge #100 ea 11/27/20 Results & Data (ED) Vital Signs Vital Signs - 24 hr 12/09/20 04:25 12/09/20 04:31 12/09/20 04:48 Temperature 36.7 C Temperature Source Oral Pulse Rate 72 71 Pulse Rate [Apical] 70 Pulse Rate from SpO2 Sensor 70 Respiratory Rate 20 22 Blood Pressure 195/69 H 180/71 H Blood Pressure [Left Arm] 195/69 H Blood Pressure Mean 111 107 Blood Pressure Mean [Left Arm] 111 Pulse Oximetry 90 89 L 90 Oxygen Delivery Method Room Air Room Air Room Air Oxygen Flow Rate Sepsis Recent Fever Within 48 Hours No Sepsis New/Unexplained Change in Mental Status N/A Sepsis Action Taken by Nursing No Action Required 12/09/20 05:03 12/09/20 05:32 12/09/20 06:01 Temperature Temperature Source Pulse Rate 68 66 68 Pulse Rate [Apical] Pulse Rate from SpO2 Sensor 67 68 65 Respiratory Rate 22 19 19 Blood Pressure 206/69 H 197/84 H 167/69 H Blood Pressure [Left Arm] Blood Pressure Mean 114 121 101 Blood Pressure Mean [Left Arm] Pulse Oximetry 100 100 100 Oxygen Delivery Method Oxygen Flow Rate Sepsis Recent Fever Within 48 Hours Sepsis New/Unexplained Change in Mental Status Sepsis Action Taken by Nursing 12/09/20 06:31 12/09/20 06:33 12/09/20 06:40 Temperature Temperature Source Pulse Rate 64 63 Pulse Rate [Apical] 63 Pulse Rate from SpO2 Sensor 66 62 Respiratory Rate 18 20 19 Blood Pressure Blood Pressure [Left Arm] Blood Pressure Mean Blood Pressure Mean [Left Arm] Pulse Oximetry 100 100 100 Oxygen Delivery Method Nasal Cannula Oxygen Flow Rate 2 Sepsis Recent Fever Within 48 Hours Sepsis New/Unexplained Change in Mental Status Sepsis Action Taken by Nursing 12/09/20 06:50 12/09/20 07:00 Temperature Temperature Source Pulse Rate 64 64 Pulse Rate [Apical] Pulse Rate from SpO2 Sensor 64 64 Respiratory Rate 18 14 Blood Pressure Blood Pressure [Left Arm] Blood Pressure Mean Blood Pressure Mean [Left Arm] Pulse Oximetry 100 100 Oxygen Delivery Method Oxygen Flow Rate Sepsis Recent Fever Within 48 Hours Sepsis New/Unexplained Change in Mental Status Sepsis Action Taken by Nursing Laboratory Data Result diagrams: 12/09/20 04:58 12/09/20 04:58 Lab Results 12/09/20 12/09/20 12/09/20 Range/Units 04:58 04:58 06:39 WBC 12.45 H (4.8-10.8) K/uL RBC 3.64 L (4.2-5.4) M/uL Hgb 12.2 (12.0-16.0) g/dL Hct 39.3 (37-47) % MCV 108.0 H (80-100) fL MCH 33.5 (25-34) pg MCHC 31.0 L (32-36) g/dL RDW Std Deviation 61.3 H (36.4-46.3) fL RDW Coeff of Jared 15.4 H (11.5-14.5) % Plt Count 140 (130-400) K/uL MPV 10.1 (7.4-10.4) fL Immature Gran % (Auto) 0.2 % Neut % (Auto) 80.7 % Lymph % (Auto) 6.3 % [place] % (Auto) 11.5 % Eos % (Auto) 1.1 % Baso % (Auto) 0.2 % Neut # (Auto) 10.04 H (1.4-6.5) K/uL Lymph # (Auto) 0.78 L (1.2-3.4) K/uL [place] # (Auto) 1.43 H (0.11-0.59) K/uL Eos # (Auto) 0.14 (0-0.5) K/uL Baso # (Auto) 0.03 (0-0.2) K/uL Immature Gran # (Auto) 0.03 H (0.00-0.02) K/uL Sodium 134 L (136-145) mmol/L Potassium 7.2 H* (3.5-5.1) mmol/L Chloride 100 (98-107) mmol/L Carbon Dioxide 34 H (21-32) mmol/L Anion Gap 1.0 L (3-11) BUN 53 H (7-18) mg/dl Creatinine 5.89 H* (0.6-1.2) mg/dl Est Cr Clr Drug Dosing 9.3 ml/min Est GFR ( Amer) 7.5 ml/min Est GFR (Non-Af Amer) 6.5 ml/min BUN/Creatinine Ratio 9.1 L (10-20) Glucose 151 H (70-99) mg/dl Calcium 8.5 (8.5-10.1) mg/dl Total Bilirubin 0.6 (0.2-1) mg/dl AST 11 L (15-37) U/L ALT 12 (12-78) U/L Alkaline Phosphatase 61 (45-117) U/L Troponin I 0.081 H* (0-0.045) ng/ml Total Protein 7.4 (6.4-8.2) gm/dl Albumin 3.5 (3.4-5.0) gm/dl Globulin 3.9 (2.5-4.0) gm/dl Albumin/Globulin Ratio 0.9 (0.9-2) TSH 2.220 (0.300-4.500) uIu/ml COVID-19 Eval Order Covid19 at [facility] Administered Medications Sodium Chloride (Nss) 500 mls @ 125 mls/hr IV .Q4H ENRIQUETA Stop: 01/08/21 05:59 Last Admin: 12/09/20 06:26 Dose: 125 mls/hr Documented by: [id number] Discontinued Medications Dextrose (Dextrose 50% 50 Ml Syringe) 50 ml IV NOW ONE Stop: 12/09/20 05:57 Last Admin: 12/09/20 06:26 Dose: 50 ml Documented by: [id number] Calcium Gluconate () 1,000 mg in 60 mls @ 240 mls/hr IV NOW STA Stop: 12/09/20 06:11 Last Infusion: 12/09/20 06:46 Dose: 0 mls/hr Documented by: [id number] Admin: 12/09/20 06:26 Dose: 240 mls/hr Documented by: [id number] Insulin Human Regular (Novolin-R Insulin Per Unit Charge) 10 units IV NOW STA Stop: 12/09/20 05:57 Last Admin: 12/09/20 06:26 Dose: 10 units Documented by: [id number] Cosigned by: [id number] Discharge Plan Visit Data Chief Complaint: Fall Stated Complaint: FALL ED Provider: Tere Sheth Discharge Problem: Acute hyperkalemia, Fall, Weakness Forms Stand Alone Forms: [employer] [facility] [employer] Prescriptions Prescriptions: No Action Levemir FlexTouch U-100 Insuln 100 unit/mL (3 mL) insulin pen 20 unit subcut BID Qty: 15 RF: 5 prednisone 1 mg tablet 4 mg PO DAILY Qty: 120 RF: 2 lorazepam 0.5 mg tablet 0.5 mg PO BID PRN (Reason: anxiety; difficulty swallowing) Qty: 30 RF: 0 hydralazine 25 mg tablet 25 mg PO TID 90 Days Qty: 270 RF: 1 escitalopram oxalate [Lexapro] 20 mg tablet 20 mg PO HS Qty: 30 RF: 3 gabapentin 100 mg capsule 200 mg PO BID Qty: 360 RF: 0 (DME) pen needle, diabetic [BD Ultra-Fine Short Pen Needle] 31 gauge x 5/16" needle See Dose Instructions .ROUTE .MEDSUPPLY Qty: 60 RF: 5 atorvastatin 20 mg tablet 20 mg PO HS Qty: 90 RF: 3 Hold Instructions: muscle pain carvedilol 25 mg tablet 25 mg PO BID Qty: 180 RF: 3 pantoprazole 40 mg tablet,delayed release (DR/EC) 40 mg PO BID 90 Days Qty: 180 RF: 3 levothyroxine 100 mcg tablet 100 mcg PO QPM Qty: 90 RF: 3 (DME) OneTouch Verio test strips Strip See Rx Instructions .ROUTE .MEDSUPPLY Qty: 100 RF: 3 (DME) blood-glucose meter [OneTouch Verio Meter] Misc See Rx Instructions .ROUTE .MEDSUPPLY Qty: 1 RF: 0 (DME) lancets [OneTouch Delica Lancets] 33 gauge misc See Rx Instructions .ROUTE .MEDSUPPLY Qty: 100 RF: 3 tramadol 50 mg tablet 50 mg PO BID Qty: 60 RF: 2 magnesium oxide 400 mg magnesium capsule 400 mg PO QAM RF: 0 calcium carbonate [Calcium 500] 500 mg calcium (1,250 mg) tablet 500 mg PO QDD RF: 0 acetaminophen [Tylenol Extra Strength] 500 mg Tablet 1,000 mg PO Q6H PRN (Reason: Pain) RF: 0 ProRenal 8 mg iron-800 mcg-1,000 unit tablet 1 tab PO QDL RF: 0 (DME) Oxygen Home Liters Per Minute See Rx Instructions .ROUTE .MEDSUPPLY Qty: 1 RF: 0 ondansetron HCl 8 mg tablet 8 mg PO Q8H PRN (Reason: Nausea) RF: 0 aspirin 81 mg Tablet,Delayed Release (Dr/Ec) 81 mg PO QAM RF: 0 calcium acetate(phosphat bind) 667 mg capsule 1,334 mg PO TIDM RF: 0 fenofibrate nanocrystallized [Tricor] 48 mg tablet 48 mg PO QPM RF: 0 Discharge Problem: Fall Qualifiers: Encounter type: initial encounter Qualified Code(s): W19.XXXA - Unspecified fall, initial encounter
[2020-12-09 05:26] LABS: Basophils # (auto) 0.03 K/uL (0-0.2); Basophils % (auto) 0.2 %; Eosinophils # (auto) 0.14 K/uL (0-0.5); Eosinophils % (auto) 1.1 %; Hematocrit (blood only) 39.3 % (37-47); Hemoglobin 12.2 g/dL (12.0-16.0); Immature Granulocytes # (auto) 0.03 K/uL (0.00-0.02); Immature Granulocytes % (auto) 0.2 %; Lymphocytes # (auto) 0.78 K/uL (1.2-3.4); Lymphocytes % (auto) 6.3 %; Mean Corpuscular Hemoglobin 33.5 pg (25-34); Mean Platelet Volume 10.1 fL (7.4-10.4); Monocytes # (auto) 1.43 K/uL (0.11-0.59); Monocytes % (auto) 11.5 %; Neutrophils # (auto) 10.04 K/uL (1.4-6.5); Neutrophils % (auto) 80.7 %; Platelet Count 140 K/uL (130-400); RDW Coefficient of Variation 15.4 % (11.5-14.5); RDW Standard Deviation 61.3 fL (36.4-46.3); Red Blood Count 3.64 M/uL (4.2-5.4); White Blood Count 12.45 K/uL (4.8-10.8)
[2020-12-09 05:45] LABS: Albumin Globulin Ratio 0.9 (0.9-2); Albumin Level 3.5 gm/dl (3.4-5.0); BUN Creatinine Ratio 9.1 (10-20); Bilirubin,Total 0.6 mg/dl (0.2-1); Calcium 8.5 mg/dl (8.5-10.1); Creatinine Clr Calc Pharmacy 9.3 ml/min; Est GFR (African American) 7.5 ml/min; Est GFR (Non-African American) 6.5 ml/min; Globulin 3.9 gm/dl (2.5-4.0); Potassium 7.2 mmol/L (3.5-5.1); Thyroid Stimulating Hormone 2.22 uIu/ml (0.300-4.500); Total Protein 7.4 gm/dl (6.4-8.2); Troponin I 0.081 ng/ml (0-0.045)
[2020-12-09] MEDS ORDERED: NovoLIN-R INSULIN PER UNIT CHARGE IV STA (05:56)
[2020-12-09] MEDS ORDERED: DEXTROSE 50% 50 ML SYRINGE IV ONE (05:56)
[2020-12-09] MEDS ORDERED: CALCIUM GLUCONATE 1,000 MG/60 ML BAG IV STA (05:57)
[2020-12-09] MEDS ORDERED: SODIUM CHLORIDE 0.9% 500 ML IV SCH (06:00)
--- NOTE | 2020-12-09 06:24 | History & Physical Report ---
Date of Service December 09, 2020 Assessment & Plan (1) Fall: 75yo female with multiple medical problems presenting with ground level mechanical fall in the home. Patient reports tripping over a fan. No CP/Palpitations/Dizziness. No LOC or head trauma. Skin tears on hands. Patient reports generalized weakness for the last several days. She had also taken a Flexeril earlier in the evening which could have contributed to fall as well. -Fall precautions -PT/OT evaluation -Tylenol PRN pain -Tramadol PRN pain Present on Admission?: Yes (2) End-stage renal disease on hemodialysis: ESRD on HD q T/R/Sat. K elevated at 7.2 with EKG changes. Patient administered calcium gluconate as well as insulin/D50 in ER. Still makes small amount of urine. -Repeat chemistry upon arrival to floor -Renal dosing where needed -Nephrology consultation appreciated - plan for HD later today -Continue Renal caps -Continue PhosLo Present on Admission?: Yes (3) GERD without esophagitis: Chronic. Asymptomatic -Continue GERD 40mg po BID Present on Admission?: Yes (4) Dyslipidemia: Chronic -Continue Fenofibrate Present on Admission?: Yes (5) Obstructive sleep apnea: Chronic -Continue CPAP 12 cm H2O qHS Present on Admission?: Yes (6) Hypothyroidism: Chronic -Continue Synthroid 100mcg po daily Present on Admission?: Yes (7) Coronary artery disease: Chronic. No ischemic changes on EKG. Elevated troponin at 0.081 in setting of ESRD - uncertain significance -Repeat troponin x 1 -Continue ASA, Atorvastatin, Carvedilol Present on Admission?: Yes (8) Polymyalgia rheumatica: Chronic -Continue Prednisone 4mg daily Present on Admission?: Yes (9) Diabetes mellitus: Chronic -Continue Insulin - 20 u BID detemir. Will decrease slightly while admitted to 15u BID -ISS -Goal blood sugar 100 - 140 Present on Admission?: Yes (10) Hypertension: Chronic. Elevated BP -Continue Hydralazine 25mg po TID -Continue Carvedilol -Continue to monitor Present on Admission?: Yes (11) Depression with anxiety: Chronic -Continue Ativan 0.5mg po BID PRN -Continue Escitalopram F/E/N - HD later today. Repeat chemistry to assess K. Check PO4 x 1, Renal diet as tolerated Ppx - Heparin Code - DNR/DNI per discussion with patient Dispo - Admit to medical with tele Present on Admission?: Yes History of Present Illness Chief Complaint: fall Primary Care Provider: Julito Burt MD Shirley Patrick is a 75yo female with multiple medical problems to include ESRD on HD q T/R/Sat, CAD, DM, HTN, HLP presenting from home after a fall. Patient has been feeling weak for the last 2-3 days. She was coming back from the bathroom this evening when she tripped over a floor fan and fell. She braced herself with her hands. No head trauma or LOC. She was unable to get up due to weakness. EMS was called and she was brought to [facility]. She thinks she was on the ground appx 30 minutes. Denies chest pain, palpitations, fever, chills, cough, SOB, dizziness, abdominal pain, nausea, vomiting. She has needed extra HD treatments in the past due to hyperkalemia She has some back pain which is chronic as well as chronic loose stools which are unchanged. Last full HD on Wednesday. Patient follow with Dr. Stephenson ER Course: Ca gluconate x 1gm, Insulin 10u + D50, NSS x 500mL Allergies Allergy/AdvReac Type Severity Reaction Status Date / Time lisinopril AdvReac Intermediate cough Verified 11/25/20 11:38 Home Medications Medication Instructions Recorded Confirmed Type aspirin 81 mg PO QAM 06/16/18 11/25/20 History calcium acetate(phosphat bind) 1,334 mg PO TIDM 07/26/18 11/25/20 History magnesium oxide 400 mg PO QAM cap 12/20/18 11/25/20 History calcium carbonate 500 mg calcium 500 mg PO QDD 08/10/19 11/25/20 History (1,250 mg) tablet acetaminophen [Tylenol Extra 1,000 mg PO Q6H PRN 11/07/19 11/25/20 History Strength] ProRenal 1 tab PO QDL 02/27/20 11/25/20 History Oxygen Home #1 ea 02/29/20 11/25/20 Rx insulin detemir U-100 100 unit/mL 20 unit SUBCUT BID #15 ml 05/14/20 11/25/20 Rx (3 mL) subcutaneous pen prednisone 1 mg tablet 4 mg PO DAILY #120 tab 05/22/20 11/25/20 Rx ondansetron HCl 8 mg PO Q8H PRN 06/24/20 11/25/20 History lorazepam 0.5 mg tablet 0.5 mg PO BID PRN #30 tab 06/28/20 11/25/20 Rx tramadol 50 mg tablet 50 mg PO BID #60 tab 07/23/20 11/25/20 Rx hydralazine 25 mg tablet 25 mg PO TID 90 Days #270 tab 08/01/20 11/25/20 Rx fenofibrate nanocrystallized 48 mg PO QPM 08/05/20 11/25/20 History [Tricor] escitalopram oxalate 20 mg tablet 20 mg PO HS #30 tab 09/02/20 11/25/20 Rx gabapentin 100 mg capsule 200 mg PO BID #360 cap 10/08/20 11/25/20 Rx atorvastatin 20 mg tablet 20 mg PO HS #90 tab 11/19/20 11/25/20 Rx carvedilol 25 mg tablet 25 mg PO BID #180 tab 11/19/20 11/25/20 Rx levothyroxine 100 mcg tablet 100 mcg PO QPM #90 tab 11/19/20 11/25/20 Rx pantoprazole 40 mg tablet,delayed 40 mg PO BID 90 Days #180 tab 11/19/2011/25 Rx release pen needle, diabetic 31 gauge x #60 ea 11/19/20 11/25/20 Rx 5/16" blood sugar diagnostic #100 ea 11/27/20 Rx blood-glucose meter #1 ea 11/27/20 Rx lancets 33 gauge #100 ea 11/27/20 Rx Past Med/Surg History Medical History Acute hyperkalemia Anemia Arthritis Coronary artery disease Depression with anxiety Diabetes Diabetes mellitus Diabetic retinopathy Dyslipidemia End-stage renal disease on hemodialysis GERD without esophagitis Hernia, hiatal History of thrombophlebitis Hypertension Hypothyroidism Insomnia Laceration of left lower extremity Macular puckering, bilateral Obstructive sleep apnea Panniculitis Paresthesias Polyarthritis Tubular adenoma of colon URI (upper respiratory infection) Vitamin D deficiency Surgical History H/O: hysterectomy History of bladder surgery History of cataract surgery History of nasal septoplasty S/P arteriovenous (AV) fistula creation S/P hysterectomy S/P repair of paraesophageal hernia S/P rotator cuff repair Family History Mother Leukemia Cerebral aneurysm Hypertension Anxiety Diabetes Grandmother Hypertension Father Osteoarthritis COPD (chronic obstructive pulmonary disease) Diabetes Sister Diabetes Myocardial infarction COPD (chronic obstructive pulmonary disease) Brother Myocardial infarction Diabetes Denies family history of Ovarian cancer Prostate cancer Breast cancer Colorectal cancer Social History Smoking Status: Never smoker Second Hand Exposure: No; Hx Alcohol Use: No Hx Substance Use: No Preferred Language: Kenyan Communication Ability: Effective Visual Impairment: No Limitations Hearing Ability: Normal Certified Nurses' Aide Required: No Beliefs That Will Affect Care: None marital status: Current Living Situation: Spouse current occupational status: retired Feels Safe at Home: Yes Dental Care, Regularly: No Physical Activity Frequency: 1-2 Times per Week Seatbelt Use: always Assistive Devices: Denture - Upper Review of Systems Review of Systems: All systems reviewed & are unremarkable except as noted in HPI & below Physical Exam Physical Exam: General: obese female patient resting comfortably, NAD, non- toxic in appearance, AA&O x 4 Skin: warm, dry, skin tears on hands with dressing in place HEENT: NC/AT, PERRL, EOMI, anicteric sclera, conjunctiva without injection, external ear normal to inspection and nontender, nares patent, moist mucus membranes, dentition intact, no oropharyngeal lesions, neck supple, trachea midline, no LAD, no thyromegaly, no JVD Heart: +S1/S2, regular, no m/r/g Lungs: equal air entry bilaterally, no rales/rhonchi/wheezes Abd: +BS, soft, NT/ND, no masses/organomegaly/ascites Ext: warm, 2+ pulses in UE/LE bilaterally, no clubbing/cyanosis or edema, AV fistula in right forearm with palpable thrill Neuro: nonfocal, patient AA&O x 4, speech intact, no facial droop, moving all extremities on command with equal strength 5/5 Results & Data Results & Data ([facility]) Vital Signs (Past 12 Hours) Vital Signs Temp Pulse Pulse Resp BP BP Pulse Ox 12/09/20 04:48 90 12/09/20 04:31 71 22 180/71 H 89 L 12/09/20 04:25 36.7 C 72 70 20 195/69 H 195/69 H 90 Laboratory Results Laboratory Results WBC 12.45 K/uL (4.8-10.8) H 12/09/20 04:58 RBC 3.64 M/uL (4.2-5.4) L 12/09/20 04:58 Hgb 12.2 g/dL (12.0-16.0) 12/09/20 04:58 Hct 39.3 % (37-47) 12/09/20 04:58 MCV 108.0 fL (80-100) H 12/09/20 04:58 MCH 33.5 pg (25-34) 12/09/20 04:58 MCHC 31.0 g/dL (32-36) L 12/09/20 04:58 RDW Std Deviation 61.3 fL (36.4-46.3) H 12/09/20 04:58 RDW Coeff of Jared 15.4 % (11.5-14.5) H 12/09/20 04:58 Plt Count 140 K/uL (130-400) 12/09/20 04:58 MPV 10.1 fL (7.4-10.4) 12/09/20 04:58 Immature Gran % (Auto) 0.2 % 12/09/20 04:58 Neut % (Auto) 80.7 % 12/09/20 04:58 Lymph % (Auto) 6.3 % 12/09/20 04:58 [place] % (Auto) 11.5 % 12/09/20 04:58 Eos % (Auto) 1.1 % 12/09/20 04:58 Baso % (Auto) 0.2 % 12/09/20 04:58 Neut # (Auto) 10.04 K/uL (1.4-6.5) H 12/09/20 04:58 Lymph # (Auto) 0.78 K/uL (1.2-3.4) L 12/09/20 04:58 [place] # (Auto) 1.43 K/uL (0.11-0.59) H 12/09/20 04:58 Eos # (Auto) 0.14 K/uL (0-0.5) 12/09/20 04:58 Baso # (Auto) 0.03 K/uL (0-0.2) 12/09/20 04:58 Immature Gran # (Auto) 0.03 K/uL (0.00-0.02) H 12/09/20 04:58 Sodium 134 mmol/L (136-145) L 12/09/20 04:58 Potassium 7.2 mmol/L (3.5-5.1) H* 12/09/20 04:58 Chloride 100 mmol/L (98-107) 12/09/20 04:58 Carbon Dioxide 34 mmol/L (21-32) H 12/09/20 04:58 Anion Gap 1.0 (3-11) L 12/09/20 04:58 BUN 53 mg/dl (7-18) H 12/09/20 04:58 Creatinine 5.89 mg/dl (0.6-1.2) H* 12/09/20 04:58 Est Cr Clr Drug Dosing 9.3 ml/min 12/09/20 04:58 Est GFR ( Amer) 7.5 ml/min 12/09/20 04:58 Est GFR (Non-Af Amer) 6.5 ml/min 12/09/20 04:58 BUN/Creatinine Ratio 9.1 (10-20) L 12/09/20 04:58 Glucose 151 mg/dl (70-99) H 12/09/20 04:58 Calcium 8.5 mg/dl (8.5-10.1) 12/09/20 04:58 Total Bilirubin 0.6 mg/dl (0.2-1) 12/09/20 04:58 AST 11 U/L (15-37) L 12/09/20 04:58 ALT 12 U/L (12-78) 12/09/20 04:58 Alkaline Phosphatase 61 U/L (45-117) 12/09/20 04:58 Troponin I 0.081 ng/ml (0-0.045) H* 12/09/20 04:58 Total Protein 7.4 gm/dl (6.4-8.2) 12/09/20 04:58 Albumin 3.5 gm/dl (3.4-5.0) 12/09/20 04:58 Globulin 3.9 gm/dl (2.5-4.0) 12/09/20 04:58 Albumin/Globulin Ratio 0.9 (0.9-2) 12/09/20 04:58 TSH 2.220 uIu/ml (0.300-4.500) 12/09/20 04:58 ECG Additional Comments: EKG with NSR at 73, left axis, LY=522, PQH=957, QOr=099, slightly peaked T-waves, PACs present Code Status & VTE Plan VTE Prophylaxis Plan VTE Prophylaxis will be ordered: Yes PG Care Time/CCT Total # of Minutes Spent Total Time Spent with Patient: Total time spent is greater than 50% in coordination of care (as documented) at patient's floor/unit and/or counseling patient: Coding Level of Care Code 21155 Initial Inpt Care Lvl 3 Diagnoses Fall W19.XXXA Encounter type: initial encounter End-stage renal disease on hemodialysis N18.6; Z99.2 GERD without esophagitis K21.9 Dyslipidemia E78.5 Obstructive sleep apnea G47.33 Hypothyroidism E03.9 Hypothyroidism type: unspecified Coronary artery disease I25.10 Coronary Disease-Associated Artery/Lesion type: [place] artery [place] vs. transplanted heart: [place] heart Associated angina: without angina Polymyalgia rheumatica M35.3 Diabetes mellitus E11.22; N18.6; Z79.4; Z99.2 Diabetes mellitus type: type 2 Diabetes mellitus predatory animal exterminator insulin use: with predatory animal exterminator use Diabetes mellitus complication status: with kidney complications Diabetes mellitus complication detail: with chronic kidney disease Chronic kidney disease stage: on chronic dialysis Hypertension I10 Hypertension type: primary hypertension Depression with anxiety F41.8 (1) Hypothyroidism Hypothyroidism type: unspecified Qualified Code(s): E03.9 - Hypothyroidism, unspecified (2) Coronary artery disease Coronary Disease-Associated Artery/Lesion type: [place] artery [place] vs. transplanted heart: [place] heart Associated angina: without angina Qualified Code(s): I25.10 - Atherosclerotic heart disease of [place] coronary artery without angina pectoris (3) Diabetes mellitus Diabetes mellitus type: type 2 Diabetes mellitus predatory animal exterminator insulin use: with longterm use Diabetes mellitus complication status: with kidney complications Diabetes mellitus complication detail: with chronic kidney disease Chronic kidney disease stage: on chronic dialysis Qualified Code(s): E11.22 - Type 2 diabetes mellitus with diabetic chronic kidney disease; N18.6 - End stage renal disease; Z79.4 - [facility] (current) use of insulin; Z99.2 - Dependence on renal dialysis (4) Hypertension Hypertension type: primary hypertension Qualified Code(s): I10 - Essential (primary) hypertension (5) Fall Encounter type: initial encounter Qualified Code(s): W19.XXXA - Unspecified fall, initial encounter
[2020-12-09] MEDS ORDERED: GLUCOSE 40% GEL 15 GM TUBE PO PRN (08:52)
[2020-12-09] MEDS ORDERED: GLUCOSE 10 TABS/TUBE PO PRN (08:52)
[2020-12-09] MEDS ORDERED: CARBOHYDRATES FOR HYPOGLYCEMIA PO PRN (08:52)
[2020-12-09] MEDS ORDERED: NON-FORMULARY MEDICATION (Oxygen Home Liters per Minute) SCH (08:52)
[2020-12-09] MEDS ORDERED: NON-FORMULARY MEDICATION (Ondansetron Hcl 8 mg tablet) PO PRN (08:52)
[2020-12-09] MEDS ORDERED: GLUCAGON FOR INJ 1 MG VIAL SQ PRN (08:52)
[2020-12-09] MEDS ORDERED: ACETAMINOPHEN 325 MG TAB PO PRN ×2 (08:52)
[2020-12-09] MEDS: INSULIN GLARGINE SOLOSTAR 100 UNITS/ML 3 ML PEN SC SCH ×2 (09:49→21:20)
[2020-12-09] MEDS: INSULIN ASPART 100 UNITS/ML 3 ML PEN SC SCH ×4 (09:50→21:20)
[2020-12-09] MEDS: GABAPENTIN 100 MG CAP PO SCH ×2 (09:55→21:14)
[2020-12-09] MEDS: CALCIUM ACETATE 667 MG CAP/TAB PO SCH ×3 (09:55→16:55)
[2020-12-09] MEDS: PANTOprazole 40 MG TAB PO SCH ×2 (09:55→21:15)
[2020-12-09] MEDS: predniSONE 1 MG TAB PO SCH (09:55)
[2020-12-09] MEDS: ASPIRIN 81 MG ECTAB PO SCH (09:55)
[2020-12-09] MEDS: carvediloL 25 MG TAB PO SCH ×2 (09:58→21:14)
[2020-12-09] MEDS: hydrALAZINE HCL 25 MG TAB PO SCH ×4 (09:58→21:15)
[2020-12-09] MEDS: traMADol HCL 50 MG TABLET PO SCH ×2 (10:00→21:19)
--- NOTE | 2020-12-09 10:34 | Nephrology Consultation ---
Date of Consultation December 09, 2020 Assessment & Plan (1) End-stage renal disease on hemodialysis: Emergent HD coordinated for hyperkalemia. Low potassium bath. Qb 400. UF goal 3 L. Plan next treatment tomorrow per TTS schedule. Continue Renal caps. Phoslo QAC. Check PO4 with AM labs. (2) Hypertension: Home medications reconciled. Anticipate some improvement with UF. (3) Acute hyperkalemia: Medical management provided. Tele and EKG reviewed. Emergent HD coordinated. Low K bath. Clearance acceptable. Low K diet. Repeat potassium tomorrow AM. (4) Weakness: Suspect medications are contributing, including Felxeril. History of Present Illness Reason for Consultation: Hyperkalemia, ESRD on HD Requesting Physician: Maegan Ortega DO Attending Physician: Maegan Ortega DO History of Present Illness Mrs. Shirley Patrick is a 75-year-old female with ASCVD, DM, hypertension, hypothyroidism, PMR, depression, TASH, and ESRD attributed to DKD. She receives IHD on a TTS schedule at [facility]. Her last dialysis treatment was completed on Wednesday as scheduled without complications. She has been leaving dialysis at her EDW of 98 kg. Clearances have been at goal. Shirley has been tolerating HD reasonably well. Unfortunately, she continues to struggle with chronic fatigue and depression. Pain control improved with addition of Flexeril. She suffered a fall and was found to be notably weak this AM. She was brought to the ER for evaluation which revealed hyperkalemia. Shirley admits to eating more potassium in her diet including tomatoes. She is despondent and expressed frustration regarding progressive loss of health and functional status. She has talked about stopping dialysis with her and family. However, she also wants to continue to live and spend time with her grandchild and the rest of her family. Mood remains depressed. In July, she was admitted and found to have a UTI and labile mood attributed to steroids provided for PMR. Her PCP also recently adjusted her antidepressants. In addition, Shirley has had issues with chronic hyperkalemia. She was admitted to [facility] in May with hypoglycemia, hyperkalemia, and volume overload. She has diffuse pain as well as notable lower back pain, and increasing weakness in her legs. She readily admits to feeling overwhelmed by her multiple medical problems. She has experienced a progressive decline in functional status over the course of the past year. Shirley lives at home with her . Shirley was seen and evaluated in the ER this AM and emergent HD was coordinated. I discussed the plan of care with the ER attending. I re evaluated Shirley during hemodialysis. Records from her prior admission and evaluations at [facility], as well as records from [facility] were reviewed today. ESRD is attributed to diabetic nephropathy. Shirley has been on dialysis since 2016. Rx is TTS 4hr 2K 2Ca F-180NR, EDW 98 kg. R RC AVF functioning well. Qb ~350. Her medical history is significant for AODM, HTN, ASCVD, hypothyroidism, GERD, depression, RLS and TASH. Recent history includes management of spinal stenosis and possible diagnosis of PMR. Allergies Allergy/AdvReac Type Severity Reaction Status Date / Time lisinopril AdvReac Intermediate cough Verified 11/25/20 11:38 Home Medications Medication Instructions Recorded Confirmed Type aspirin 81 mg PO QAM 06/16/18 11/25/20 History calcium acetate(phosphat bind) 1,334 mg PO TIDM 07/26/18 11/25/20 History magnesium oxide 400 mg PO QAM cap 12/20/18 11/25/20 History calcium carbonate 500 mg calcium 500 mg PO QDD 08/10/19 11/25/20 History (1,250 mg) tablet acetaminophen [Tylenol Extra 1,000 mg PO Q6H PRN 11/07/19 11/25/20 History Strength] ProRenal 1 tab PO QDL 02/27/20 11/25/20 History Oxygen Home #1 ea 02/29/20 11/25/20 Rx insulin detemir U-100 100 unit/mL 20 unit SUBCUT BID #15 ml 05/14/20 11/25/20 Rx (3 mL) subcutaneous pen prednisone 1 mg tablet 4 mg PO DAILY #120 tab 05/22/20 11/25/20 Rx ondansetron HCl 8 mg PO Q8H PRN 06/24/20 11/25/20 History lorazepam 0.5 mg tablet 0.5 mg PO BID PRN #30 tab 06/28/20 11/25/20 Rx tramadol 50 mg tablet 50 mg PO BID #60 tab 07/23/20 11/25/20 Rx hydralazine 25 mg tablet 25 mg PO TID 90 Days #270 tab 08/01/20 11/25/20 Rx fenofibrate nanocrystallized 48 mg PO QPM 08/05/20 11/25/20 History [Tricor] escitalopram oxalate 20 mg tablet 20 mg PO HS #30 tab 09/02/20 11/25/20 Rx gabapentin 100 mg capsule 200 mg PO BID #360 cap 10/08/20 11/25/20 Rx atorvastatin 20 mg tablet 20 mg PO HS #90 tab 11/19/20 11/25/20 Rx carvedilol 25 mg tablet 25 mg PO BID #180 tab 11/19/20 11/25/20 Rx levothyroxine 100 mcg tablet 100 mcg PO QPM #90 tab 11/19/20 11/25/20 Rx pantoprazole 40 mg tablet,delayed 40 mg PO BID 90 Days #180 tab 11/19/20 11/25/20 Rx release pen needle, diabetic 31 gauge x #60 ea 11/19/20 11/25/20 Rx 5/16" blood sugar diagnostic #100 ea 11/27/20 Rx blood-glucose meter #1 ea 11/27/20 Rx lancets 33 gauge #100 ea 11/27/20 Rx Patient History Medical History Acute hyperkalemia Anemia Arthritis Coronary artery disease Depression with anxiety Diabetes Diabetes mellitus Diabetic retinopathy Dyslipidemia End-stage renal disease on hemodialysis GERD without esophagitis Hernia, hiatal History of thrombophlebitis Hypertension Hypothyroidism Insomnia Laceration of left lower extremity Macular puckering, bilateral Obstructive sleep apnea Panniculitis Paresthesias Polyarthritis Tubular adenoma of colon URI (upper respiratory infection) Vitamin D deficiency Surgical History H/O: hysterectomy History of bladder surgery History of cataract surgery History of nasal septoplasty S/P arteriovenous (AV) fistula creation S/P hysterectomy S/P repair of paraesophageal hernia S/P rotator cuff repair Family History Mother Leukemia Cerebral aneurysm Hypertension Anxiety Diabetes Grandmother Hypertension Father Osteoarthritis COPD (chronic obstructive pulmonary disease) Diabetes Sister Diabetes Myocardial infarction COPD (chronic obstructive pulmonary disease) Brother Myocardial infarction Diabetes Denies family history of Ovarian cancer Prostate cancer Breast cancer Colorectal cancer Social History Smoking Status: Never smoker Second Hand Exposure: No; Hx Alcohol Use: No Hx Substance Use: No Preferred Language: Luxembourgish Communication Ability: Effective Visual Impairment: No Limitations Hearing Ability: Normal Ecommerce Merchandising Manager Required: No Beliefs That Will Affect Care: None marital status: Current Living Situation: Spouse current occupational status: retired Feels Safe at Home: Yes Dental Care, Regularly: No Physical Activity Frequency: 1-2 Times per Week Seatbelt Use: always Assistive Devices: Denture - Upper, Glasses and Walker Review of Systems Review of Systems: All systems reviewed & are unremarkable except as noted in HPI & below Physical Exam Constitutional: well developed and + obese; no acute distress Eyes: no scleral abnormality and no corneal abnormality ENMT: Mouth: no oral mucosal abnormality and oral mucous membranes not dry Neck: normal visual inspection and trachea midline Respiratory: normal respiratory effort Auscultation: lungs clear to auscultation bilaterally and + rales (few left base) Cardiovascular: Rate/Rhythm: regular rate Heart Sounds: normal S1, normal S2 and + murmur Extremities: + AV fistula; no edema Musculoskeletal: Extremities: no cyanosis and no clubbing Skin: normal turgor; no lesions Neurologic: Motor/Sensory: no tremor and no asterixis Psychiatric: Orientation: alert and oriented x 3 Results & Data ([facility]) Vital Signs (Past 12 Hours) Vital Signs Temp Pulse Pulse Pulse Resp BP BP 12/09/20 10:20 60 159/75 H 12/09/20 10:13 36.9 C 69 12/09/20 10:00 62 164/87 H 12/09/20 09:40 65 183/79 H 12/09/20 09:33 67 186/84 H 12/09/20 08:52 36.6 C 65 18 174/90 H 12/09/20 08:01 59 L 12 159/75 H 12/09/20 07:31 62 13 166/65 H 12/09/20 07:20 63 20 12/09/20 07:10 63 13 12/09/20 07:00 64 14 12/09/20 06:50 64 18 12/09/20 06:40 63 19 12/09/20 06:33 63 20 12/09/20 06:31 64 18 12/09/20 06:01 68 19 167/69 H 12/09/20 05:32 66 19 197/84 H 12/09/20 05:03 68 22 206/69 H 12/09/20 04:48 12/09/20 04:31 71 22 180/71 H 12/09/20 04:25 36.7 C 72 70 20 195/69 H 195/69 H Pulse Ox 12/09/20 10:20 12/09/20 10:13 12/09/20 10:00 12/09/20 09:40 12/09/20 09:33 12/09/20 08:52 92 12/09/20 08:01 100 12/09/20 07:31 100 12/09/20 07:20 100 12/09/20 07:10 99 12/09/20 07:00 100 12/09/20 06:50 100 12/09/20 06:40 100 12/09/20 06:33 100 12/09/20 06:31 100 12/09/20 06:01 100 12/09/20 05:32 100 12/09/20 05:03 100 12/09/20 04:48 90 12/09/20 04:31 89 L 12/09/20 04:25 90 Laboratory Results Laboratory Results - last 24 hr 12/09/20 12/09/20 12/09/20 04:58 04:58 06:39 WBC 12.45 H RBC 3.64 L Hgb 12.2 Hct 39.3 MCV 108.0 H MCH 33.5 MCHC 31.0 L RDW Std Deviation 61.3 H RDW Coeff of Jared 15.4 H Plt Count 140 MPV 10.1 Immature Gran % (Auto) 0.2 Neut % (Auto) 80.7 Lymph % (Auto) 6.3 [place] % (Auto) 11.5 Eos % (Auto) 1.1 Baso % (Auto) 0.2 Neut # (Auto) 10.04 H Lymph # (Auto) 0.78 L [place] # (Auto) 1.43 H Eos # (Auto) 0.14 Baso # (Auto) 0.03 Immature Gran # (Auto) 0.03 H Sodium 134 L Potassium 7.2 H* Chloride 100 Carbon Dioxide 34 H Anion Gap 1.0 L BUN 53 H Creatinine 5.89 H* Est Cr Clr Drug Dosing 9.3 Est GFR ( Amer) 7.5 Est GFR (Non-Af Amer) 6.5 BUN/Creatinine Ratio 9.1 L Glucose 151 H POC Glucose Calcium 8.5 Phosphorus Pending Total Bilirubin 0.6 AST 11 L ALT 12 Alkaline Phosphatase 61 Troponin I 0.081 H* Total Protein 7.4 Albumin 3.5 Globulin 3.9 Albumin/Globulin Ratio 0.9 TSH 2.220 Nasal Screen MRSA (PCR) COVID-19 Eval Order Covid19 at [facility] SARS-CoV-2 (PCR) 12/09/20 12/09/20 12/09/20 06:39 07:25 Unknown WBC RBC Hgb Hct MCV MCH MCHC RDW Std Deviation RDW Coeff of Jared Plt Count MPV Immature Gran % (Auto) Neut % (Auto) Lymph % (Auto) [place] % (Auto) Eos % (Auto) Baso % (Auto) Neut # (Auto) Lymph # (Auto) [place] # (Auto) Eos # (Auto) Baso # (Auto) Immature Gran # (Auto) Sodium Potassium Chloride Carbon Dioxide Anion Gap BUN Creatinine Est Cr Clr Drug Dosing Est GFR ( Amer) Est GFR (Non-Af Amer) BUN/Creatinine Ratio Glucose POC Glucose 115 H Calcium Phosphorus Total Bilirubin AST ALT Alkaline Phosphatase Troponin I Total Protein Albumin Globulin Albumin/Globulin Ratio TSH Nasal Screen MRSA (PCR) Negative COVID-19 Eval Order SARS-CoV-2 (PCR) NEGATIVE PG Care Time/CCT Total # of Minutes Spent Total Time Spent with Patient: Total time spent is greater than 50% in coordination of care (as documented) at patient's floor/unit and/or counseling patient: Coding Level of Care Code 88836 Inpt Consult Level 5 Diagnoses End-stage renal disease on hemodialysis N18.6; Z99.2 Hypertension I10 Hypertension type: primary hypertension Acute hyperkalemia E87.5 Weakness R53.1 (1) Hypertension Hypertension type: primary hypertension Qualified Code(s): I10 - Essential (primary) hypertension
[2020-12-09 11:00] LABS: Phosphorus 4.2 mg/dl (2.5-4.9)
[2020-12-09] MEDS ORDERED: NON-FORMULARY MEDICATION (Vit B,C-Iron Fum-Fa-D3-Zinc Ox [Prorenal] 8 mg iron-800 mcg-1,00 PO SCH (11:30)
[2020-12-09] MEDS: HEPARIN SOD 5,000 UNIT/0.5 ML VIAL SQ SCH ×2 (14:08→21:16)
[2020-12-09] MEDS: ONDANSETRON INJ 2 MG/ML 2 ML VIAL IV PRN (14:51)
[2020-12-09] MEDS: CALCIUM CARBONATE 1250MG TAB PO SCH (16:56)
--- NOTE | 2020-12-09 17:42 | Electrocardiogram Report ---
Test Reason : Blood Pressure : / mmHG Vent. Rate : 073 BPM Atrial Rate : 073 BPM P-R Int : 194 ms QRS Dur : 102 ms QT Int : 388 ms P-R-T Axes : 017 -62 058 degrees QTc Int : 427 ms Sinus rhythm with Premature atrial complexes Left axis deviation Poor R wave progression, consider anterior RI vs. lead placement vs. LVH Abnormal ECG When compared with ECG of 05-AUG-2020 11:27, Premature atrial complexes are now Present Confirmed by Davon William ([id number]) on 12/09/2020 5:42:51 PM Referred By: REFERRED SELF Confirmed By:Ravi William
--- NOTE | 2020-12-09 19:13 | Hospitalist Progress Note ---
Date of Service December 09, 2020 Assessment & Plan (1) Fall: 75yo female with multiple medical problems presenting with ground level mechanical fall in the home. Patient reports tripping over a fan. No CP/Palpitations/Dizziness. No LOC or head trauma. Skin tears on hands. Patient reports generalized weakness for the last several days. She had also taken a Flexeril earlier in the evening which could have contributed to fall as well. -Fall precautions, check scapulae x ray -PT/OT evaluation -Tylenol PRN pain -Tramadol PRN pain (2) End-stage renal disease on hemodialysis: ESRD on HD q T/R/Sat. K elevated at 7.2 with EKG changes. Patient administered calcium gluconate as well as insulin/D50 in ER. Still makes small amount of urine. -Repeat chemistry upon arrival to floor -Renal dosing where needed -Nephrology consultation appreciated - plan for HD later today -Continue Renal caps -Continue PhosLo (3) GERD without esophagitis: Chronic. Asymptomatic -Continue GERD 40mg po BID (4) Dyslipidemia: Chronic -Continue Fenofibrate (5) Obstructive sleep apnea: Chronic -Continue CPAP 12 cm H2O qHS (6) Hypothyroidism: Chronic -Continue Synthroid 100mcg po daily (7) Coronary artery disease: Chronic. No ischemic changes on EKG. Elevated troponin at 0.081 in setting of ESRD - uncertain significance -Repeat troponin x 1 -Continue ASA, Atorvastatin, Carvedilol (8) Polymyalgia rheumatica: Chronic -Continue Prednisone 4mg daily (9) Diabetes mellitus: Chronic -Continue Insulin - 20 u BID detemir. Will decrease slightly while admitted to 15u BID -ISS -Goal blood sugar 100 - 140 (10) Hypertension: Chronic. Elevated BP -Continue Hydralazine 25mg po TID -Continue Carvedilol -Continue to monitor (11) Depression with anxiety: Chronic -Continue Ativan 0.5mg po BID PRN -Continue Escitalopram F/E/N - HD later today. Repeat chemistry to assess K. Check PO4 x 1, Renal diet as tolerated Ppx - Heparin Code - DNR/DNI per discussion with patient Dispo - Admit to medical with tele Admission and Anticipated Discharge Date Admission Date: December 09, 2020 Subjective pt was seen during dialysis, some skin tears to arm, mild scapulae pain, no current issues Physical Exam Physical Exam: The patient appeared well nourished and normally developed. Vital signs as documented. Head exam is normocephalic atraumatic Neck is without JVD, thyromegaly, or carotid bruits. Lungs are clear to auscultation, no focal loss of breath sounds Cardiac exam, Rhythm is regular.. No murmurs, rubs or gallops. Abdominal exam reveals normal bowel sounds, soft non tender, no masses Extremities are nonedematous and both pedal pulses are present some back pain to scapulae Neurologic exam is alert and oriented, no focal loss of strength or sensation Skin is with skin tears to left arm and hand Psychologically is without concerns for anxiety or depression Results & Data Results & Data ([facility]) Vital Signs (Past 12 Hours) Vital Signs Temp Pulse Pulse Pulse Pulse Resp BP 12/09/20 15:45 98.4 F 64 17 12/09/20 15:15 63 12/09/20 14:20 62 12/09/20 14:00 98.2 F 56 L 12/09/20 13:24 52 L 70/30 L 12/09/20 13:00 58 L 103/53 L 12/09/20 12:40 58 L 114/57 L 12/09/20 12:20 59 L 117/53 L 12/09/20 12:00 59 L 120/52 L 12/09/20 11:40 59 L 116/56 L 12/09/20 11:20 62 152/64 H 12/09/20 11:00 59 L 147/57 H 12/09/20 10:53 61 163/73 H 12/09/20 10:20 60 159/75 H 12/09/20 10:13 98.4 F 69 12/09/20 10:00 62 164/87 H 12/09/20 09:40 65 183/79 H 12/09/20 09:33 67 186/84 H 12/09/20 08:52 97.9 F 63 65 18 12/09/20 08:01 59 L 12 159/75 H 12/09/20 07:31 62 13 166/65 H 12/09/20 07:20 63 20 BP BP Pulse Ox 12/09/20 15:45 115/66 91 12/09/20 15:15 12/09/20 14:20 12/09/20 14:00 119/52 L 12/09/20 13:24 12/09/20 13:00 12/09/20 12:40 12/09/20 12:20 12/09/20 12:00 12/09/20 11:40 12/09/20 11:20 12/09/20 11:00 12/09/20 10:53 12/09/20 10:20 12/09/20 10:13 12/09/20 10:00 12/09/20 09:40 12/09/20 09:33 12/09/20 08:52 174/90 H 92 12/09/20 08:01 100 12/09/20 07:31 100 12/09/20 07:20 100 PG Care Time/CCT Total # of Minutes Spent Total Time Spent with Patient: Total time spent is greater than 50% in coordination of care (as documented) at patient's floor/unit and/or counseling patient: Coding Level of Care Code None Diagnoses Fall W19.XXXA Encounter type: initial encounter End-stage renal disease on hemodialysis N18.6; Z99.2 GERD without esophagitis K21.9 Dyslipidemia E78.5 Obstructive sleep apnea G47.33 Hypothyroidism E03.9 Hypothyroidism type: unspecified Coronary artery disease I25.10 Coronary Disease-Associated Artery/Lesion type: [place] artery [place] vs. transplanted heart: [place] heart Associated angina: without angina Polymyalgia rheumatica M35.3 Diabetes mellitus E11.22; N18.6; Z79.4; Z99.2 Diabetes mellitus type: type 2 Diabetes mellitus retirement insulin use: with retirement use Diabetes mellitus complication status: with kidney complications Diabetes mellitus complication detail: with chronic kidney disease Chronic kidney disease stage: on chronic dialysis Hypertension I10 Hypertension type: primary hypertension Depression with anxiety F41.8 (1) Fall Encounter type: initial encounter Qualified Code(s): W19.XXXA - Unspecified fall, initial encounter (2) Hypothyroidism Hypothyroidism type: unspecified Qualified Code(s): E03.9 - Hypothyroidism, unspecified (3) Coronary artery disease Coronary Disease-Associated Artery/Lesion type: [place] artery [place] vs. transplanted heart: [place] heart Associated angina: without angina Qualified Code(s): I25.10 - Atherosclerotic heart disease of [place] coronary artery without angina pectoris (4) Diabetes mellitus Diabetes mellitus type: type 2 Diabetes mellitus retirement insulin use: with director long term care use Diabetes mellitus complication status: with kidney complications Diabetes mellitus complication detail: with chronic kidney disease Chronic kidney disease stage: on chronic dialysis Qualified Code(s): E11.22 - Type 2 diabetes mellitus with diabetic chronic kidney disease; N18.6 - End stage renal disease; Z79.4 - middle or intermediate school principal (current) use of insulin; Z99.2 - Dependence on renal dialysis (5) Hypertension Hypertension type: primary hypertension Qualified Code(s): I10 - Essential (primary) hypertension
--- NOTE | 2020-12-09 20:22 | XRay Report ---
XR scapula LT CLINICAL HISTORY: fall COMPARISON: Chest CT February 27, 2020. FINDINGS: No left scapular fracture is identified by radiography. 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 No proximal left humeral fracture is identified . IMPRESSION: 1. No acute fracture of the left scapula identified by radiography. 2. Moderate degenerative changes of the left shoulder. ACT 112: Negative or not required by law. Electronically signed by: Cyrus Serna M.D. 12/09/2020 8:21 PM
[2020-12-09] MEDS: ATORVASTATIN 20 MG TAB PO SCH (21:14)
[2020-12-09] MEDS: LEVOTHYROXINE SODIUM 100 MCG TABLET PO SCH (21:15)
[2020-12-09] MEDS: FENOFIBRATE NANOCRYSTALLIZED 48 MG TABLET PO SCH (21:15)
[2020-12-09] MEDS: ESCITALOPRAM OXALATE 20 MG TAB PO SCH (21:15)
[2020-12-10] MEDS: HEPARIN SOD 5,000 UNIT/0.5 ML VIAL SQ SCH ×3 (06:08→21:17)
[2020-12-10 07:20] LABS: Basophils # (auto) 0.02 K/uL (0-0.2); Basophils % (auto) 0.2 %; Eosinophils # (auto) 0.11 K/uL (0-0.5); Eosinophils % (auto) 1.1 %; Hematocrit (blood only) 37.2 % (37-47); Hemoglobin 10.9 g/dL (12.0-16.0); Immature Granulocytes # (auto) 0.02 K/uL (0.00-0.02); Immature Granulocytes % (auto) 0.2 %; Lymphocytes # (auto) 1.47 K/uL (1.2-3.4); Lymphocytes % (auto) 14.7 %; Mean Corpuscular Hemoglobin 32.1 pg (25-34); Mean Corpuscular Hgb Conc 29.3 g/dL (32-36); Mean Corpuscular Volume 109.4 fL (80-100); Mean Platelet Volume 10.7 fL (7.4-10.4); Monocytes # (auto) 1.04 K/uL (0.11-0.59); Monocytes % (auto) 10.4 %; Neutrophils # (auto) 7.34 K/uL (1.4-6.5); Neutrophils % (auto) 73.4 %; Platelet Count 141 K/uL (130-400); RDW Coefficient of Variation 15.4 % (11.5-14.5); RDW Standard Deviation 61.5 fL (36.4-46.3)
[2020-12-10 08:07] LABS: BUN Creatinine Ratio 6.3 (10-20); Calcium 8.9 mg/dl (8.5-10.1); Creatinine Clr Calc Pharmacy 11.5 ml/min; Est GFR (African American) 9.8 ml/min; Est GFR (Non-African American) 8.5 ml/min; Potassium 5.5 mmol/L (3.5-5.1)
[2020-12-10] MEDS: CALCIUM ACETATE 667 MG CAP/TAB PO SCH ×3 (08:30→17:17)
[2020-12-10] MEDS: predniSONE 1 MG TAB PO SCH (08:30)
[2020-12-10] MEDS: ASPIRIN 81 MG ECTAB PO SCH (08:30)
[2020-12-10] MEDS: carvediloL 25 MG TAB PO SCH ×2 (08:30→21:17)
[2020-12-10] MEDS: GABAPENTIN 100 MG CAP PO SCH ×2 (08:30→21:17)
[2020-12-10] MEDS: PANTOprazole 40 MG TAB PO SCH ×2 (08:30→21:18)
[2020-12-10] MEDS: MAGNESIUM OXIDE 400 MG TAB PO SCH (08:30)
[2020-12-10] MEDS: INSULIN GLARGINE SOLOSTAR 100 UNITS/ML 3 ML PEN SC SCH ×2 (08:32→21:47)
[2020-12-10] MEDS: INSULIN ASPART 100 UNITS/ML 3 ML PEN SC SCH ×4 (08:33→21:20)
[2020-12-10] MEDS: traMADol HCL 50 MG TABLET PO SCH ×2 (08:36→21:32)
--- NOTE | 2020-12-10 09:47 | Nephrology Progress Note ---
Date of Service December 10, 2020 Assessment & Plan (1) End-stage renal disease on hemodialysis: Adequate clearance yesterday. Remains slightly hyperkalemic. Per TTS schedule, HD arranged for today. Orders entered into EMR and reviewed with nurse. Plan of care discussed with Dr. Dial. UF goal 1-2 L as tolerated. EDW 98 kg. Continue Renal caps. Phoslo QAC. Check PO4 with AM labs. (2) Hypertension: BP and volume status acceptable. (3) Acute hyperkalemia: Low potassium diet reviewed. Address role of potassium binder use as outpatient post follow up. (4) Weakness: Suspect medications are contributing, including Felxeril. Admission and Anticipated Discharge Date Admission Date: December 09, 2020 Subjective No acute events overnight. Tolerated HD yesterday without complications. Shirley feels well this AM. Not having pain now but notes that she has not really been out of bed or ambulating. She feels that her strength has improved. Review of Systems Review of Systems: All systems reviewed & are unremarkable except as noted in HPI & below Physical Exam Constitutional: well developed and + obese; no acute distress Eyes: no scleral abnormality and no corneal abnormality ENMT: Mouth: no oral mucosal abnormality and oral mucous membranes not dry Neck: normal visual inspection and trachea midline Respiratory: normal respiratory effort Auscultation: lungs clear to auscultation bilaterally and + rales (few left base) Cardiovascular: Rate/Rhythm: regular rate Heart Sounds: normal S1, normal S2 and + murmur Extremities: + AV fistula; no edema Musculoskeletal: Extremities: no cyanosis and no clubbing Skin: normal turgor; no lesions Neurologic: Motor/Sensory: no tremor and no asterixis Psychiatric: Orientation: alert and oriented x 3 Results & Data ([facility]) Vital Signs (Past 12 Hours) Vital Signs Temp Pulse Pulse Resp BP BP Pulse Ox 12/10/20 08:14 36.5 C 65 20 131/75 94 12/10/20 04:42 36.7 C 51 L 20 111/74 93 12/10/20 00:59 54 L 12/09/20 23:25 36.6 C 51 L 16 114/72 98 Laboratory Results Laboratory Results - last 24 hr 12/09/20 12/09/20 12/09/20 04:58 13:34 14:21 WBC RBC Hgb Hct MCV MCH MCHC RDW Std Deviation RDW Coeff of Jared Plt Count MPV Immature Gran % (Auto) Neut % (Auto) Lymph % (Auto) [place] % (Auto) Eos % (Auto) Baso % (Auto) Neut # (Auto) Lymph # (Auto) [place] # (Auto) Eos # (Auto) Baso # (Auto) Immature Gran # (Auto) Sodium Potassium Chloride Carbon Dioxide Anion Gap BUN Creatinine Est Cr Clr Drug Dosing Est GFR ( Amer) Est GFR (Non-Af Amer) BUN/Creatinine Ratio Glucose POC Glucose 93 Calcium Phosphorus 4.2 Troponin I 0.069 H* Nasal Screen MRSA (PCR) Hepatitis C Ab Screen 12/09/20 12/09/20 12/09/20 16:08 20:42 Unknown WBC RBC Hgb Hct MCV MCH MCHC RDW Std Deviation RDW Coeff of Jared Plt Count MPV Immature Gran % (Auto) Neut % (Auto) Lymph % (Auto) [place] % (Auto) Eos % (Auto) Baso % (Auto) Neut # (Auto) Lymph # (Auto) [place] # (Auto) Eos # (Auto) Baso # (Auto) Immature Gran # (Auto) Sodium Potassium Chloride Carbon Dioxide Anion Gap BUN Creatinine Est Cr Clr Drug Dosing Est GFR ( Amer) Est GFR (Non-Af Amer) BUN/Creatinine Ratio Glucose POC Glucose 132 H 180 H Calcium Phosphorus Troponin I Nasal Screen MRSA (PCR) Negative Hepatitis C Ab Screen 12/10/20 12/10/20 12/10/20 06:49 06:49 06:49 WBC 10.00 RBC 3.40 L Hgb 10.9 L Hct 37.2 MCV 109.4 H MCH 32.1 MCHC 29.3 L RDW Std Deviation 61.5 H RDW Coeff of Jared 15.4 H Plt Count 141 MPV 10.7 H Immature Gran % (Auto) 0.2 Neut % (Auto) 73.4 Lymph % (Auto) 14.7 [place] % (Auto) 10.4 Eos % (Auto) 1.1 Baso % (Auto) 0.2 Neut # (Auto) 7.34 H Lymph # (Auto) 1.47 [place] # (Auto) 1.04 H Eos # (Auto) 0.11 Baso # (Auto) 0.02 Immature Gran # (Auto) 0.02 Sodium 135 L Potassium 5.5 H D Chloride 102 Carbon Dioxide 32 Anion Gap 1.0 L BUN 29 H Creatinine 4.70 H* D Est Cr Clr Drug Dosing 11.5 Est GFR ( Amer) 9.8 Est GFR (Non-Af Amer) 8.5 BUN/Creatinine Ratio 6.3 L Glucose 93 POC Glucose Calcium 8.9 Phosphorus Troponin I Nasal Screen MRSA (PCR) Hepatitis C Ab Screen Neg 12/10/20 07:25 WBC RBC Hgb Hct MCV MCH MCHC RDW Std Deviation RDW Coeff of Jared Plt Count MPV Immature Gran % (Auto) Neut % (Auto) Lymph % (Auto) [place] % (Auto) Eos % (Auto) Baso % (Auto) Neut # (Auto) Lymph # (Auto) [place] # (Auto) Eos # (Auto) Baso # (Auto) Immature Gran # (Auto) Sodium Potassium Chloride Carbon Dioxide Anion Gap BUN Creatinine Est Cr Clr Drug Dosing Est GFR ( Amer) Est GFR (Non-Af Amer) BUN/Creatinine Ratio Glucose POC Glucose 106 H Calcium Phosphorus Troponin I Nasal Screen MRSA (PCR) Hepatitis C Ab Screen PG Care Time/CCT Total # of Minutes Spent Total Time Spent with Patient: Total time spent is greater than 50% in coordination of care (as documented) at patient's floor/unit and/or counseling patient: Coding Level of Care Code 22708 Subseq Hosp Care Lvl 3 Diagnoses End-stage renal disease on hemodialysis N18.6; Z99.2 Hypertension I10 Hypertension type: primary hypertension Acute hyperkalemia E87.5 Weakness R53.1 (1) Hypertension Hypertension type: primary hypertension Qualified Code(s): I10 - Essential (primary) hypertension
[2020-12-10] MEDS: hydrALAZINE HCL 25 MG TAB PO SCH ×2 (13:54→21:17)
[2020-12-10] MEDS: ONDANSETRON INJ 2 MG/ML 2 ML VIAL IV PRN (15:08)
[2020-12-10] MEDS ORDERED: ALUMINUM/MAGNESIUM SUSP 18 ML, LIDOCAINE VISCOUS 2% SOLN 6 ML, BARCODE IDENTIFIER 1 EA PO ONE (15:24)
[2020-12-10] MEDS: CALCIUM CARBONATE 1250MG TAB PO SCH (17:17)
--- NOTE | 2020-12-10 18:32 | Hospitalist Progress Note ---
Date of Service December 10, 2020 Assessment & Plan (1) Fall: 75yo female with multiple medical problems presenting with ground level mechanical fall in the home. Patient reports tripping over a fan. No CP/Palpitations/Dizziness. No LOC or head trauma. Skin tears on hands. Patient reports generalized weakness for the last several days. She had also taken a Flexeril earlier in the evening which could have contributed to fall as well. -Fall precautions, scapulae x ray no acute fracture identified -Tylenol PRN pain -Tramadol PRN pain Postdialysis nausea attempting one dose of Phenergan (2) End-stage renal disease on hemodialysis: ESRD on HD q T/R/Sat. K elevated at 7.2 with EKG changes. Patient administered calcium gluconate as well as insulin/D50 in ER. Still makes small amount of urine. -Renal dosing where needed -Nephrology consultation appreciated will have HD , , Wednesday -Continue Renal caps -Continue PhosLo (3) GERD without esophagitis: Chronic. Asymptomatic -Continue GERD 40mg po BID (4) Dyslipidemia: Chronic -Continue Fenofibrate (5) Obstructive sleep apnea: Chronic -Continue CPAP 12 cm H2O qHS (6) Hypothyroidism: Chronic -Continue Synthroid 100mcg po daily (7) Coronary artery disease: Chronic. No ischemic changes on EKG. Elevated troponin at 0.081 in setting of ESRD - uncertain significance -Repeat troponin x 1 -Continue ASA, Atorvastatin, Carvedilol (8) Polymyalgia rheumatica: Chronic -Continue Prednisone 4mg daily (9) Diabetes mellitus: Chronic -Continue Insulin - 20 u BID detemir. Will decrease slightly while admitted to 15u BID -did have some lows, encourage po intake (10) Hypertension: Chronic. Elevated BP -Continue Hydralazine 25mg po TID -Continue Carvedilol -Continue to monitor (11) Depression with anxiety: Chronic -Continue Ativan 0.5mg po BID PRN -Continue Escitalopram Ppx - Heparin Code - DNR/DNI per discussion with patient Admission and Anticipated Discharge Date Admission Date: December 09, 2020 Subjective pt is slightly nauseated after dialysis, wants to go home tomorrow if labs are stable, will try some additional nausea meds Review of Systems Review of Systems: Mild distress and fatigue no headache, no visual changes no speech or swallowing issues no chest pain, pressure or palpitations no shortness of breath, cough or wheezes no abdominal pain, nausea or vomiting, diarrhea or constipation no dysuria, hematuria or frequency no focal joint pain or swelling no back pain, CVA tenderness or radicular pain no bruising, bleeding or rashes no focal signs of weakness or numbness or altered sensation no complaints of anxiety or depression.. Physical Exam Physical Exam: The patient appeared chronically ill with a sallow complexion Vital signs as documented. Head exam is normocephalic atraumatic Neck is without JVD, thyromegaly, or carotid bruits. Lungs are clear to auscultation, diminished at the bases Cardiac exam, Rhythm is regular.. No murmurs, rubs or gallops. Abdominal exam reveals normal bowel sounds, soft non tender, no masses Extremities are trace edematous and both pedal pulses are present some back pain to scapulae Neurologic exam is alert and oriented, no focal loss of strength or sensation Skin is with skin tears to left arm and hand Psychologically is without concerns for anxiety or depression Results & Data Results & Data ([facility]) Vital Signs (Past 12 Hours) Vital Signs Temp Pulse Pulse Pulse Resp BP BP 12/10/20 16:04 97.9 F 55 L 19 12/10/20 13:31 97.3 F L 50 L 111/53 L 12/10/20 13:18 49 L 94/72 L 12/10/20 12:40 50 L 91/45 L 12/10/20 12:20 51 L 106/46 L 12/10/20 12:00 52 L 83/47 L 12/10/20 11:40 48 L 103/54 L 12/10/20 11:20 53 L 91/46 L 12/10/20 11:00 53 L 96/40 L 12/10/20 10:40 52 L 97/31 L 12/10/20 10:16 53 L 113/53 L 12/10/20 10:10 97.3 F L 56 L 12/10/20 08:14 97.7 F 65 20 131/75 BP Pulse Ox 12/10/20 16:04 119/61 92 12/10/20 13:31 12/10/20 13:18 12/10/20 12:40 12/10/20 12:20 12/10/20 12:00 12/10/20 11:40 07/13/21 11:20 12/10/20 11:00 12/10/20 10:40 12/10/20 10:16 12/10/20 10:10 12/10/20 08:14 94 PG Care Time/CCT Total # of Minutes Spent Total Time Spent with Patient: Total time spent is greater than 50% in coordination of care (as documented) at patient's floor/unit and/or counseling patient: Coding Level of Care Code 63522 Subseq Hosp Care Lvl 2 Diagnoses Fall W19.XXXA Encounter type: initial encounter End-stage renal disease on hemodialysis N18.6; Z99.2 GERD without esophagitis K21.9 Dyslipidemia E78.5 Obstructive sleep apnea G47.33 Hypothyroidism E03.9 Hypothyroidism type: unspecified Coronary artery disease I25.10 Coronary Disease-Associated Artery/Lesion type: [place] artery [place] vs. transplanted heart: [place] heart Associated angina: without angina Polymyalgia rheumatica M35.3 Diabetes mellitus E11.22; N18.6; Z79.4; Z99.2 Diabetes mellitus type: type 2 Diabetes mellitus assisted insulin use: with assisted use Diabetes mellitus complication status: with kidney complications Diabetes mellitus complication detail: with chronic kidney disease Chronic kidney disease stage: on chronic dialysis Hypertension I10 Hypertension type: primary hypertension Depression with anxiety F41.8 (1) Fall Encounter type: initial encounter Qualified Code(s): W19.XXXA - Unspecified fall, initial encounter (2) Hypothyroidism Hypothyroidism type: unspecified Qualified Code(s): E03.9 - Hypothyroidism, unspecified (3) Coronary artery disease Coronary Disease-Associated Artery/Lesion type: [place] artery [place] vs. transplanted heart: [place] heart Associated angina: without angina Qualified Code(s): I25.10 - Atherosclerotic heart disease of [place] coronary artery without angina pectoris (4) Diabetes mellitus Diabetes mellitus type: type 2 Diabetes mellitus assisted insulin use: with assisted use Diabetes mellitus complication status: with kidney complications Diabetes mellitus complication detail: with chronic kidney disease Chronic kidney disease stage: on chronic dialysis Qualified Code(s): E11.22 - Type 2 diabetes mellitus with diabetic chronic kidney disease; N18.6 - End stage renal disease; Z79.4 - retirement (current) use of insulin; Z99.2 - Dependence on renal dialysis (5) Hypertension Hypertension type: primary hypertension Qualified Code(s): I10 - Essential (primary) hypertension
[2020-12-10] MEDS: PROMETHAZINE HCL 12.5 MG in SODIUM CHLORIDE 0.9% 50 ML IV PRN (19:07)
[2020-12-10] MEDS: FENOFIBRATE NANOCRYSTALLIZED 48 MG TABLET PO SCH (21:16)
[2020-12-10] MEDS: ATORVASTATIN 20 MG TAB PO SCH (21:16)
[2020-12-10] MEDS: ESCITALOPRAM OXALATE 20 MG TAB PO SCH (21:16)
[2020-12-10] MEDS: LEVOTHYROXINE SODIUM 100 MCG TABLET PO SCH (21:17)
[2020-12-11] MEDS: LORazepam 0.5 MG TAB PO PRN (01:37)
[2020-12-11] MEDS ORDERED: diphenhydrAMINE Capsule 25 MG CAP PO ONE (01:43)
[2020-12-11] MEDS: HEPARIN SOD 5,000 UNIT/0.5 ML VIAL SQ SCH ×3 (05:57→21:49)
[2020-12-11] MEDS: traMADol HCL 50 MG TABLET PO SCH ×2 (07:19→21:47)
[2020-12-11] MEDS: PANTOprazole 40 MG TAB PO SCH ×2 (07:20→21:47)
[2020-12-11] MEDS: carvediloL 25 MG TAB PO SCH ×2 (07:20→21:48)
[2020-12-11] MEDS: GABAPENTIN 100 MG CAP PO SCH ×2 (07:21→21:47)
[2020-12-11] MEDS: hydrALAZINE HCL 25 MG TAB PO SCH ×2 (07:21→21:48)
[2020-12-11] MEDS: CALCIUM ACETATE 667 MG CAP/TAB PO SCH ×3 (07:22→17:03)
[2020-12-11] MEDS: MAGNESIUM OXIDE 400 MG TAB PO SCH (07:23)
[2020-12-11] MEDS: ASPIRIN 81 MG ECTAB PO SCH (07:23)
[2020-12-11] MEDS: predniSONE 1 MG TAB PO SCH (07:23)
[2020-12-11] MEDS: INSULIN ASPART 100 UNITS/ML 3 ML PEN SC SCH ×4 (08:27→22:02)
[2020-12-11] MEDS: INSULIN GLARGINE SOLOSTAR 100 UNITS/ML 3 ML PEN SC SCH ×2 (08:28→22:03)
[2020-12-11 08:49] LABS: BUN Creatinine Ratio 5.4 (10-20); Calcium 8.8 mg/dl (8.5-10.1); Creatinine Clr Calc Pharmacy 12.9 ml/min; Est GFR (African American) 11.5 ml/min; Est GFR (Non-African American) 9.9 ml/min; Magnesium 2.4 mg/dl (1.8-2.4); Potassium 4.9 mmol/L (3.5-5.1)
--- NOTE | 2020-12-11 09:44 | Nephrology Progress Note ---
Date of Service December 11, 2020 Assessment & Plan (1) End-stage renal disease on hemodialysis: Plan: HD TTS at [facility]. Completed treatment yesterday. Clearance adequate. Volume status controlled. Electrolytes normal. Next treatment planned for tomorrow. No change to Rx. EDW remains 98 kg. Medications appropriate for kidney function. Shirley reiterated today that her health and functional status are declining. She has accepted this. She often thinks about stopping dialysis but has resolved to continue in order to spend more time with her family. However, she views her life expectancy as limited and plans to do what she can to enjoy the time that she has. She is not interested in adding any new interventions to prolong her life. She does not want to stop dialysis now. She plans to continue this conversation with her family. She decline palliative care consultation. (2) Hypertension: Plan: BP and volume status acceptable. (3) Acute hyperkalemia: Plan: Resolved. Low potassium diet reviewed. Will monitor at dialysis post discharge. No change to medications now but consider K binder in the future, if remains high. (4) Weakness: Plan: Chronic. Discussed medications that may be potentially contributing but Shirley does not want to change pain medications. Admission and Anticipated Discharge Date Admission Date: December 09, 2020 Subjective No acute events overnight. No complications with HD. UF 2 L. Nausea and mild GI discomfort post treatment. Symptoms improved. Continues to feel very tired. Blood sugar slightly low this AM. Shirley feels ready to go home. Review of Systems Constitutional: no weight loss, no weight gain and no problem reported Eyes: no problem reported Ear, Nose, Mouth, Throat: no problem reported Respiratory: no problem reported Cardiovascular: no problem reported Gastrointestinal: no problem reported Musculoskeletal: no problem reported Integumentary: no problem reported Neurologic: no problem reported Psychiatric: no problem reported Endocrine: no problem reported Hematologic / Lymphatic: no problem reported Physical Exam Constitutional: well developed and + obese; no acute distress Eyes: no scleral abnormality and no corneal abnormality ENMT: Mouth: no oral mucosal abnormality and oral mucous membranes not dry Neck: normal visual inspection and trachea midline Respiratory: normal respiratory effort Auscultation: lungs clear to auscultation bilaterally and + rales (few left base) Cardiovascular: Rate/Rhythm: regular rate Heart Sounds: normal S1, normal S2 and + murmur Extremities: + AV fistula; no edema Musculoskeletal: Extremities: no cyanosis and no clubbing Skin: normal turgor; no lesions Neurologic: Motor/Sensory: no tremor and no asterixis Psychiatric: Orientation: alert and oriented x 3 Results & Data ([facility]) Vital Signs (Past 12 Hours) Vital Signs Temp Pulse Pulse Pulse Resp BP BP 12/11/20 07:30 47 L 12/11/20 07:13 37 C 50 L 14 132/67 12/11/20 04:50 36.5 C 50 L 16 114/72 12/11/20 00:33 36.6 C 51 L 18 142/68 H 12/10/20 23:35 53 L Pulse Ox 12/11/20 07:30 12/11/20 07:13 92 12/11/20 04:50 97 12/11/20 00:33 99 12/10/20 23:35 Laboratory Results Laboratory Results - last 24 hr 12/10/20 12/10/20 12/10/20 13:58 16:15 20:28 Sodium Potassium Chloride Carbon Dioxide Anion Gap BUN Creatinine Est Cr Clr Drug Dosing Est GFR ( Amer) Est GFR (Non-Af Amer) BUN/Creatinine Ratio Glucose POC Glucose 79 86 70 Calcium Magnesium 12/11/20 12/11/20 12/11/20 07:21 07:22 07:44 Sodium Potassium Chloride Carbon Dioxide Anion Gap BUN Creatinine Est Cr Clr Drug Dosing Est GFR ( Amer) Est GFR (Non-Af Amer) BUN/Creatinine Ratio Glucose POC Glucose 41 L* 41 L* 46 L* Calcium Magnesium 12/11/20 12/11/20 07:50 08:08 Sodium 135 L Potassium 4.9 Chloride 102 Carbon Dioxide 32 Anion Gap 1.0 L BUN 22 H Creatinine 4.13 H D Est Cr Clr Drug Dosing 12.9 Est GFR ( Amer) 11.5 Est GFR (Non-Af Amer) 9.9 BUN/Creatinine Ratio 5.4 L Glucose 55 L POC Glucose 80 Calcium 8.8 Magnesium 2.4 PG Care Time/CCT Total # of Minutes Spent Total Time Spent with Patient: Total time spent is greater than 50% in coordination of care (as documented) at patient's floor/unit and/or counseling patient: Coding Level of Care Code 94595 Subseq Hosp Care Lvl 3 Diagnoses End-stage renal disease on hemodialysis N18.6; Z99.2 Hypertension I10 Hypertension type: primary hypertension Acute hyperkalemia E87.5 Weakness R53.1 (1) Hypertension Hypertension type: primary hypertension Qualified Code(s): I10 - Essential (primary) hypertension
--- NOTE | 2020-12-11 11:38 | XRay Report ---
XR ankle RT min 3V routine CLINICAL HISTORY: Right ankle pain status post trauma COMPARISON: None. DISCUSSION: No acute fractures or dislocations are visualized. The ankle mortise appears intact on th chun nonstress views. There is prominent lateral calcaneal spurring. There is a tiny Achilles insertio nal calcification. There are vascular calcifications present. There is soft tissue swelling most pron ounced laterally. IMPRESSION: 1. Mild soft tissue edema 2. No acute fractures or dislocations identified ACT 112: Negative or not required by law. Electronically signed by: Oscar Santa M.D. 12/11/2020 11:37 AM
[2020-12-11] MEDS ORDERED: ONDANSETRON 4 MG OD TAB PO PRN (11:48)
[2020-12-11] MEDS: oxyCODONE HCL IR 5 MG TAB (IMMEDIATE RELEASE) PO PRN (11:59)
[2020-12-11] MEDS: CALCIUM CARBONATE 1250MG TAB PO SCH (17:03)
[2020-12-11] MEDS: PROMETHAZINE HCL 12.5 MG in SODIUM CHLORIDE 0.9% 50 ML IV PRN (17:44)
--- NOTE | 2020-12-11 18:24 | Hospitalist Progress Note ---
Date of Service December 11, 2020 Assessment & Plan (1) UTI (urinary tract infection): (2) Hypertensive urgency: (3) Abdominal pain: (4) Headache: (5) Chronic respiratory failure with hypoxia: (6) End-stage renal disease on hemodialysis: (7) CHF (congestive heart failure): (8) Restrictive lung disease: (9) Depression with anxiety: (10) Dyslipidemia: (11) GERD without esophagitis: (12) Obstructive sleep apnea: (13) Hypothyroidism: (14) Coronary artery disease: (15) Anemia: (16) Diabetes mellitus: (17) Hypertension: (18) Polymyalgia rheumatica: (19) Elevated troponin: Admission and Anticipated Discharge Date Admission Date: December 09, 2020 (1) UTI (urinary tract infection): With evidence of UTI along with symptoms starting on 07/30, with headaches, nausea, lower back pain and mid abdominal pain, and myalgias at home for 1 week Urine culture from 07/30 growing E. coli resistant to ampicillin and ampicillin/sulbactam, failed treatment with Bactrim and Macrobid as an outpatient No evidence of sepsis Concern for acute pyelonephritis given ongoing nausea, abdominal pain and lower back pain however CT scan as below has ruled that out Needs symptomatic pain control urine culture is not confirmatory, will stop antibiotics CT abdomen/pelvis IMPRESSION: 1. There are no acute infectious or inflammatory findings in the abdomen or pelvis. 2. Moderate sigmoid diverticulosis without CT evidence of acute diverticulitis. 3. Cardiomegaly. 4. Renal cortical atrophy is similar to previous. -Tylenol and oral opiates to help her significant back pain, overall neurontin helped the most (2) Hypertensive urgency: Blood pressures in the 220s systolic upon arrival with headache May be influenced by her pain from recent medication changes chronically mildly elevated troponin. She does have end-stage renal disease on dialysis. Also was recently started on bupropion 6 days ago which could increase blood pressure -Was given IV hydralazine in the ER and will continue this as needed systolic blood pressure greater than 180 -Continue home medications of p.o. hydralazine, carvedilol -stop bupropion (3) Abdominal pain: As above, likely related to UTI/possible acute pyelonephritis CT abdomen/pelvis without intra abdominal pathology abdominal pain improved with pain control stopping antibiotics 08/07 (4) Headache: Possibly related to uncontrolled htn and uti CT head without intracranial abnormalities morphine, oxycodone, Tylenol as needed Negative Covid-19 (5) Chronic respiratory failure with hypoxia: Is on 3 L nasal cannula with exertion at home and with her BiPAP at nighttime No acute issues (6) End-stage renal disease on hemodialysis: Is on a Wednesday dialysis schedule Consult nephrology for inpatient dialysis Continue usual home medications with calcium acetate, prorenal (7) CHF (congestive heart failure): With chronic diastolic CHF No acute issues Continue blood pressure control as above Is on dialysis for volume management (8) Restrictive lung disease: Follows with pulmonology/sleep medicine Continue supplemental O2 as above (9) Depression with anxiety: Recently switched from Zoloft back to Lexapro and started on Wellbutrin Continue Lexapro (10) Dyslipidemia: Continue renally dosed fenofibrate (11) GERD without esophagitis: Continue PPI No acute issues but has a history of incarcerated ventral incisional hernia and abdominal adhesions and hiatal hernia Currently following with bariatric surgeon at [facility] and having outpatient esophageal studies performed to include manometry (12) Obstructive sleep apnea: Continue BiPAP 05/06 nightly with oxygen (13) Hypothyroidism: TSH normal 05/2020 Continue home levothyroxine (14) Coronary artery disease: minimal nonobstructive CAD on 2018 cath - performed by Dr Qureshi. cont fenofibrate, aspirin, beta ramesh for secondary prevention (15) Anemia: Secondary to ESRD Hemoglobin mildly low at 11.3 but around 2 improved from her baseline Managed by nephrology (16) Diabetes mellitus: Hemoglobin A1c 5.7% but may not be accurate in the setting of end-stage renal disease Hold home insulin detemir for now as is having nausea and do NovoLog sup plemental insulin only Accu-Cheks before every meal and nightly (17) Hypertension: With hypertensive urgency as above Continue home hydralazine, carvedilol, IV hydralazine as needed (18) Polymyalgia rheumatica: Started on treatment for such in 02/2020 and follows with rheumatology as an outpatient Continue home prednisone 4 mg daily concern of pain could be from insufficient steroids, check am cortisol on 08/08/20 27.50 Follow-up as an outpatient with rheumatology (19) Elevated troponin: Troponin mildly elevated here at 0.249 which is around or lower than where she has been in the past. She denies any chest pains This may be secondary to chronic elevation in the setting of ESRD and a known history of CAD Physical Exam Physical Exam: The patient appeared well nourished and normally developed. Vital signs as documented. Head exam is normocephalic atraumatic Neck is without JVD, thyromegaly, or carotid bruits. Lungs are clear to auscultation, no focal loss of breath sounds Cardiac exam, Rhythm is regular.. No murmurs, rubs or gallops. Abdominal exam reveals normal bowel sounds, soft non tender, no masses Extremities are nonedematous and both pedal pulses are present Neurologic exam is alert and oriented, no focal loss of strength or sensation Skin is without bruises or rashes Psychologically is without concerns for anxiety or depression Results & Data Results & Data ([facility]) Vital Signs (Past 12 Hours) Vital Signs Temp Pulse Pulse Pulse Resp BP BP 12/11/20 15:48 56 L 12/11/20 14:48 98.2 F 56 L 18 124/57 L 12/11/20 07:30 47 L 12/11/20 07:13 98.6 F 50 L 14 132/67 Pulse Ox 12/11/20 15:48 12/11/20 14:48 92 12/11/20 07:30 12/11/20 07:13 92 PG Care Time/CCT Total # of Minutes Spent Total Time Spent with Patient: Total time spent is greater than 50% in coordination of care (as documented) at patient's floor/unit and/or counseling patient: Coding Diagnoses UTI (urinary tract infection) N39.0 Hypertensive urgency I16.0 Abdominal pain R10.9 Headache R51.9 Chronic respiratory failure with hypoxia J96.11 End-stage renal disease on hemodialysis N18.6; Z99.2 CHF (congestive heart failure) I50.9 Heart failure chronicity: acute on chronic Heart failure type: unspecified Restrictive lung disease J98.4 Depression with anxiety F41.8 Dyslipidemia E78.5 GERD without esophagitis K21.9 Obstructive sleep apnea G47.33 Hypothyroidism E03.9 Hypothyroidism type: unspecified Coronary artery disease I25.10 Coronary Disease-Associated Artery/Lesion type: [place] artery [place] vs. transplanted heart: [place] heart Associated angina: without angina Anemia D64.9 Diabetes mellitus E11.22; N18.6; Z79.4; Z99.2 Diabetes mellitus type: type 2 Diabetes mellitus intermediate insulin use: with termite exterminator use Diabetes mellitus complication status: with kidney complications Diabetes mellitus complication detail: with chronic kidney disease Chronic kidney disease stage: on chronic dialysis Hypertension I10 Hypertension type: primary hypertension Polymyalgia rheumatica M35.3 Elevated troponin R77.8 (1) CHF (congestive heart failure) Heart failure chronicity: acute on chronic Heart failure type: unspecified Qualified Code(s): I50.9 - Heart failure, unspecified (2) Hypothyroidism Hypothyroidism type: unspecified Qualified Code(s): E03.9 - Hypothyroidism, unspecified (3) Coronary artery disease Coronary Disease-Associated Artery/Lesion type: [place] artery [place] vs. transplanted heart: [place] heart Associated angina: without angina Qualified Code(s): I25.10 - Atherosclerotic heart disease of [place] coronary artery without angina pectoris (4) Diabetes mellitus Diabetes mellitus type: type 2 Diabetes mellitus intermediate insulin use: with intermediate use Diabetes mellitus complication status: with kidney complications Diabetes mellitus complication detail: with chronic kidney disease Chronic kidn ey disease stage: on chronic dialysis Qualified Code(s): E11.22 - Type 2 diabetes mellitus with diabetic chronic kidney disease; N18.6 - End stage renal disease; Z79.4 - skilled nursing (current) use of insulin; Z99.2 - Dependence on renal dialysis (5) Hypertension Hypertension type: primary hypertension Qualified Code(s): I10 - Essential (primary) hypertension
--- NOTE | 2020-12-11 18:27 | Hospitalist Progress Note ---
Date of Service December 11, 2020 Assessment & Plan Admission and Anticipated Discharge Date Admission Date: December 09, 2020 Subjective Patient had a very difficult night she is tearful she is considering withdrawing care her family came and talked her back and having an additional dialysis session and considering hospice after that we will once again reconvene in the morning. I did speak to both her daughter and her today and they were was supportive of her idea to withdraw care and her daughter was not Review of Systems Review of Systems: Mild distress and fatigue no headache, no visual changes no speech or swallowing issues no chest pain, pressure or palpitations no shortness of breath, cough or wheezes no abdominal pain, nausea or vomiting, diarrhea or constipation no dysuria, hematuria or frequency focal joint pain or swelling no back pain, CVA tenderness or radicular pain no bruising, bleeding or rashes no focal signs of weakness or numbness or altered sensation no complaints of anxiety or depression.. Physical Exam Physical Exam: The patient appeared chronically ill Vital signs as documented. Head exam is normocephalic atraumatic Neck is without JVD, thyromegaly, or carotid bruits. Lungs are clear to auscultation, no focal loss of breath sounds Cardiac exam, Rhythm is regular.. No murmurs, rubs or gallops. Abdominal exam reveals normal bowel sounds, soft non tender, no masses Extremities are trace edematous and both pedal pulses are present Neurologic exam is alert and oriented, no focal loss of strength or sensation Skin is without bruises or rashes Psychologically is without concerns for anxiety or depression Results & Data Results & Data ([facility]) Vital Signs (Past 12 Hours) Vital Signs Temp Pulse Pulse Pulse Resp BP BP 12/11/20 15:48 56 L 12/11/20 14:48 98.2 F 56 L 18 124/57 L 12/11/20 07:30 47 L 12/11/20 07:13 98.6 F 50 L 14 132/67 Pulse Ox 12/11/20 15:48 12/11/20 14:48 92 12/11/20 07:30 12/11/20 07:13 92 PG Care Time/CCT Total # of Minutes Spent Total Time Spent with Patient: Total time spent is greater than 50% in coordination of care (as documented) at patient's floor/unit and/or counseling patient: Coding
--- NOTE | 2020-12-11 18:38 | Hospitalist Progress Note ---
Date of Service December 11, 2020 Assessment & Plan (1) End-stage renal disease on hemodialysis: Plan: (1) Fall: 75yo female with multiple medical problems presenting with ground level mechanical fall in the home. Patient reports tripping over a fan. No CP/Palpitations/Dizziness. No LOC or head trauma. Skin tears on hands. Patient reports generalized weakness for the last several days. She had also taken a Flexeril earlier in the evening which could have contributed to fall as well. -Fall precautions, scapulae x ray no acute fracture identified -Tylenol PRN pain -Tramadol PRN pain Postdialysis nausea attempting one dose of Phenergan (2) End-stage renal disease on hemodialysis: ESRD on HD q T/R/Sat. Patient now is reconsidering continuing with dialysis. However this is not supported by her daughter but supported by her . Her daughter came into the hospital to convince her to continue to have dialysis for additional day and continue to discuss this issue. This and will likely have dialysis on 12/12 -Continue Renal caps -Continue PhosLo (3) GERD without esophagitis: Chronic. Asymptomatic -Continue GERD 40mg po BID (4) Dyslipidemia: Chronic -Continue Fenofibrate (5) Obstructive sleep apnea: Chronic -Continue CPAP 12 cm H2O qHS (6) Hypothyroidism: Chronic -Continue Synthroid 100mcg po daily (7) Coronary artery disease: Chronic. No ischemic changes on EKG. Elevated troponin at 0.081 in setting of ESRD - uncertain significance -Repeat troponin x 1 -Continue ASA, Atorvastatin, Carvedilol (8) Polymyalgia rheumatica: Chronic -Continue Prednisone 4mg daily (9) Diabetes mellitus: Chronic -Continue Insulin - 20 u BID detemir. Will decrease slightly while admitted to 15u BID -did have some lows, encourage po intake (10) Hypertension: Chronic. Elevated BP -Continue Hydralazine 25mg po TID -Continue Carvedilol -Continue to monitor (11) Depression with anxiety: Chronic -Continue Ativan 0.5mg po BID PRN -Continue Escitalopram (12)patient had right ankle discomfort no known trauma uric acid negative x-ray negative initiating small low dose of opiates plus ice to try to help her pain Ppx - Heparin Code - DNR/DNI per discussion with patient Admission and Anticipated Discharge Date Admission Date: December 09, 2020 Subjective Patient had a difficult night emotionally she feels like she is ready to stop dialysis. She does have some right ankle pain which was evaluated her to me no significant injury. Patient's family is coming in to talk to her once again today Review of Systems Review of Systems: Moderate emotional distress and mild fatigue no headache, no visual changes no speech or swallowing issues no chest pain, pressure or palpitations Baseline shortness of breath at rest, cough or wheezes no abdominal pain, nausea or vomiting, diarrhea or constipation no dysuria, hematuria or frequency Right ankle pain some dorsal foot swelling denies trauma no significant joint effusion redness or warmth no back pain, CVA tenderness or radicular pain no bruising, bleeding or rashes no focal signs of weakness or numbness or altered sensation no complaints of anxiety or depression.. Physical Exam Physical Exam: The patient appeared well nourished and normally developed. Vital signs as documented. Head exam is normocephalic atraumatic Neck is without JVD, thyromegaly, or carotid bruits. Lungs are clear to auscultation, no focal loss of breath sounds Cardiac exam, Rhythm is regular.. No murmurs, rubs or gallops. Abdominal exam reveals normal bowel sounds, soft non tender, no masses Extremities are trace edematous and right foot is slightly more effusion the left foot. Both pedal pulses are present Neurologic exam is alert and oriented, no focal loss of strength or sensation Skin is without bruises or rashes Psychologically is without concerns for anxiety or depression Results & Data Results & Data ([facility]) Vital Signs (Past 12 Hours) Vital Signs Temp Pulse Pulse Pulse Resp BP BP 12/11/20 15:48 56 L 12/11/20 14:48 98.2 F 56 L 18 124/57 L 12/11/20 07:30 47 L 12/11/20 07:13 98.6 F 50 L 14 132/67 Pulse Ox 12/11/20 15:48 12/11/20 14:48 92 12/11/20 07:30 12/11/20 07:13 92 PG Care Time/CCT Total # of Minutes Spent Total Time Spent with Patient: Total time spent is greater than 50% in coordination of care (as documented) at patient's floor/unit and/or counseling patient: Coding Level of Care Code 99008 Subseq Hosp Care Lvl 2 Diagnoses End-stage renal disease on hemodialysis N18.6; Z99.2
[2020-12-11] MEDS: DEXTROSE 50% 50 ML SYRINGE IV PRN (20:33)
[2020-12-11] MEDS: FENOFIBRATE NANOCRYSTALLIZED 48 MG TABLET PO SCH (21:47)
[2020-12-11] MEDS: ATORVASTATIN 20 MG TAB PO SCH (21:48)
[2020-12-11] MEDS: ESCITALOPRAM OXALATE 20 MG TAB PO SCH (21:48)
[2020-12-11] MEDS: LEVOTHYROXINE SODIUM 100 MCG TABLET PO SCH (21:48)
[2020-12-12] MEDS: DEXTROSE 50% 50 ML SYRINGE IV PRN (00:45)
[2020-12-12] MEDS: oxyCODONE HCL IR 5 MG TAB (IMMEDIATE RELEASE) PO PRN ×2 (05:08→11:15)
[2020-12-12] MEDS: HEPARIN SOD 5,000 UNIT/0.5 ML VIAL SQ SCH ×2 (05:09→14:14)
[2020-12-12] MEDS: GABAPENTIN 100 MG CAP PO SCH ×2 (07:12→21:47)
[2020-12-12] MEDS: traMADol HCL 50 MG TABLET PO SCH ×2 (07:12→21:46)
[2020-12-12] MEDS: PANTOprazole 40 MG TAB PO SCH (07:12)
[2020-12-12] MEDS: predniSONE 1 MG TAB PO SCH (07:13)
[2020-12-12] MEDS: MAGNESIUM OXIDE 400 MG TAB PO SCH (07:13)
[2020-12-12] MEDS: ASPIRIN 81 MG ECTAB PO SCH (07:13)
[2020-12-12] MEDS: hydrALAZINE HCL 25 MG TAB PO SCH ×2 (07:13→21:48)
[2020-12-12] MEDS: carvediloL 25 MG TAB PO SCH ×2 (07:14→21:47)
[2020-12-12] MEDS: INSULIN ASPART 100 UNITS/ML 3 ML PEN SC SCH ×4 (08:42→21:46)
[2020-12-12] MEDS: CALCIUM ACETATE 667 MG CAP/TAB PO SCH ×3 (08:44→17:07)
[2020-12-12] MEDS ORDERED: INSULIN GLARGINE SOLOSTAR 100 UNITS/ML 3 ML PEN SC SCH ×2 (09:00)
[2020-12-12] MEDS: MoRPHine SULFATE 2 MG/ML CARP IV PRN (09:33)
[2020-12-12] MEDS: LORazepam 0.5 MG TAB PO PRN (09:33)
[2020-12-12 09:38] LABS: Hematocrit (blood only) 34.8 % (37-47); Hemoglobin 10.4 g/dL (12.0-16.0)
[2020-12-12 09:39] LABS: BUN Creatinine Ratio 7.5 (10-20); Calcium 8.8 mg/dl (8.5-10.1); Creatinine Clr Calc Pharmacy 9.4 ml/min; Est GFR (African American) 7.7 ml/min; Est GFR (Non-African American) 6.7 ml/min; Potassium 5.8 mmol/L (3.5-5.1)
--- NOTE | 2020-12-12 10:28 | Nephrology Progress Note ---
Date of Service December 12, 2020 Assessment & Plan (1) End-stage renal disease on hemodialysis: Plan: Orders for HD today entered into EMR and reviewed with dialysis nurse. Low K bath for hyperkalemia and UF goal 2 L. Shirley told me this AM that she does plan to stop dialysis once she returns home. We discussed this in detail and she is resolved to this decision. Medications appropriate for kidney function. (2) Hypertension: Plan: BP and volume status acceptable. (3) Acute hyperkalemia: Plan: HD today for clearance. Admission and Anticipated Discharge Date Admission Date: December 09, 2020 Subjective No acute events overnight. Shirley is feeling relief today. she would like to have hemodialysis today but states that she plans to stop dialysis once she returns home. She is resolved in this decision. Otherwise she feels reasonably well today. Review of Systems Constitutional: no weight loss, no weight gain and no problem reported Eyes: no problem reported Ear, Nose, Mouth, Throat: no problem reported Respiratory: no problem reported Cardiovascular: no problem reported Gastrointestinal: no problem reported Musculoskeletal: no problem reported Integumentary: no problem reported Neurologic: no problem reported Psychiatric: no problem reported Endocrine: no problem reported Hematologic / Lymphatic: no problem reported Physical Exam 2 Constitutional: well developed and + obese; no acute distress Eyes: no scleral abnormality and no corneal abnormality ENMT: Mouth: no oral mucosal abnormality and oral mucous membranes not dry Neck: normal visual inspection and trachea midline Respiratory: normal respiratory effort Auscultation: lungs clear to auscultation bilaterally and + rales (few left base) Cardiovascular: Rate/Rhythm: regular rate Heart Sounds: normal S1, normal S2 and + murmur Extremities: + AV fistula; no edema Musculoskeletal: Extremities: no cyanosis and no clubbing Skin: normal turgor; no lesions Neurologic: Motor/Sensory: no tremor and no asterixis Psychiatric: Orientation: alert and oriented x 3 Results & Data ([facility]) Vital Signs (Past 12 Hours) Vital Signs Temp Pulse Pulse Pulse Resp BP BP 12/12/20 09:45 58 L 12/12/20 06:52 36.8 C 56 L 19 131/60 12/12/20 04:57 36.4 C L 63 18 129/77 12/12/20 00:53 48 L 12/12/20 00:26 36.4 C L 50 L 18 165/78 H Pulse Ox 12/12/20 09:45 12/12/20 06:52 100 12/12/20 04:57 90 12/12/20 00:53 12/12/20 00:26 98 Laboratory Results Laboratory Results - last 24 hr 12/11/20 12/11/20 12/11/20 07:50 11:09 16:25 Hgb Hct Sodium Potassium Chloride Carbon Dioxide Anion Gap BUN Creatinine Est Cr Clr Drug Dosing Est GFR ( Amer) Est GFR (Non-Af Amer) BUN/Creatinine Ratio Glucose POC Glucose 122 H 88 Uric Acid 3.1 Calcium 12/11/20 12/11/20 12/12/20 20:28 20:46 00:41 Hgb Hct Sodium Potassium Chloride Carbon Dioxide Anion Gap BUN Creatinine Est Cr Clr Drug Dosing Est GFR ( Amer) Est GFR (Non-Af Amer) BUN/Creatinine Ratio Glucose POC Glucose 56 L* 106 H 47 L* Uric Acid Calcium 12/12/20 12/12/20 12/12/20 01:04 07:02 08:26 Hgb 10.4 L Hct 34.8 L Sodium Potassium Chloride Carbon Dioxide Anion Gap BUN Creatinine Est Cr Clr Drug Dosing Est GFR ( Amer) Est GFR (Non-Af Amer) BUN/Creatinine Ratio Glucose POC Glucose 91 87 Uric Acid Calcium 12/12/20 08:26 Hgb Hct Sodium 133 L Potassium 5.8 H D Chloride 98 Carbon Dioxide 31 Anion Gap 3.0 BUN 44 H D Creatinine 5.74 H* D Est Cr Clr Drug Dosing 9.4 Est GFR ( Amer) 7.7 Est GFR (Non-Af Amer) 6.7 BUN/Creatinine Ratio 7.5 L Glucose 106 H POC Glucose Uric Acid Calcium 8.8 PG Care Time/CCT Total # of Minutes Spent Total Time Spent with Patient: Total time spent is greater than 50% in coordination of care (as documented) at patient's floor/unit and/or counseling patient: Coding Level of Care Code 76933 Subseq Hosp Care Lvl 3 Diagnoses End-stage renal disease on hemodialysis N18.6; Z99.2 Hypertension I10 Hypertension type: primary hypertension Acute hyperkalemia E87.5 (1) Hypertension Hypertension type: primary hypertension Qualified Code(s): I10 - Essential (primary) hypertension
[2020-12-12] MEDS: CALCIUM CARBONATE 1250MG TAB PO SCH (17:09)
--- NOTE | 2020-12-12 17:50 | Hospitalist Progress Note ---
Date of Service December 12, 2020 Assessment & Plan (1) End-stage renal disease on hemodialysis: Plan: (1) Fall: 75yo female with multiple medical problems presenting with ground level mechanical fall in the home. Patient reports tripping over a fan. No CP/Palpitations/Dizziness. No LOC or head trauma. Skin tears on hands. Patient reports generalized weakness for the last several days. She had also taken a Flexeril earlier in the evening which could have contributed to fall as well. -Fall precautions, scapulae x ray no acute fracture identified -Tylenol PRN pain -Tramadol PRN pain (2) End-stage renal disease on hemodialysis: ESRD on HD q T/R/Sat. Patient now is reconsidering discontinuing with dialysis. This is not supported by her daughter but supported by her . once home on hospice will stop many medications fo now -Continue Renal caps -Continue PhosLo (3) GERD without esophagitis: Chronic. Asymptomatic -Continue GERD 40mg po BID (4) Dyslipidemia: Chronic -Continue Fenofibrate (5) Obstructive sleep apnea: Chronic -Continue CPAP 12 cm H2O qHS (6) Hypothyroidism: Chronic -Continue Synthroid 100mcg po daily (7) Coronary artery disease: Chronic. No ischemic changes on EKG. Elevated troponin at 0.081 in setting of ESRD - uncertain significance elevated troponin from renal failure no suspicion of DC -Continue ASA, Atorvastatin, Carvedilol (8) Polymyalgia rheumatica: Chronic -Continue Prednisone 4mg daily (9) Diabetes mellitus: Chronic -Continue Insulin - 20 u BID detemir. Will decrease slightly while admitted to 15u BID -did have some lows, encourage po intake (10) Hypertension: Chronic. Elevated BP -Continue Hydralazine 25mg po TID -Continue Carvedilol -Continue to monitor (11) Depression with anxiety: Chronic -Continue Ativan 0.5mg po BID PRN -Continue Escitalopram (12)patient had right ankle discomfort no known trauma uric acid negative x-ray negative initiating small low dose of opiates plus ice Ppx - Heparin Code - DNR/DNI per discussion with patient Admission and Anticipated Discharge Date Admission Date: December 09, 2020 Subjective this pt had a poor outcome with dialysis today was unable to complete a session due to hypotension, family was at the bedside and now are more supportive of transition to hospice, family plans to have home tomorrow may need a van Review of Systems Review of Systems: Moderate emotional distress and mild fatigue no headache, no visual changes no speech or swallowing issues no chest pain, pressure or palpitations Baseline shortness of breath at rest, cough or wheezes no abdominal pain, nausea or vomiting, diarrhea or constipation no dysuria, hematuria or frequency Right ankle pain some dorsal foot swelling denies trauma no significant joint effusion redness or warmth no back pain, CVA tenderness or radicular pain no bruising, bleeding or rashes no focal signs of weakness or numbness or altered sensation no complaints of anxiety or depression.. Physical Exam Physical Exam: The patient appeared well nourished and normally developed. Vital signs as documented. Head exam is normocephalic atraumatic Neck is without JVD, thyromegaly, or carotid bruits. Lungs are clear to auscultation, no focal loss of breath sounds Cardiac exam, Rhythm is regular.. No murmurs, rubs or gallops. Abdominal exam reveals normal bowel sounds, soft non tender, no masses Extremities are trace edematous and right foot is slightly more effusion the left foot. Both pedal pulses are present Neurologic exam is alert and oriented, no focal loss of strength or sensation Skin is without bruises or rashes Psychologically is without concerns for anxiety or depression Results & Data Results & Data ([facility]) Vital Signs (Past 12 Hours) Vital Signs Temp Pulse Pulse Pulse Pulse Resp BP 12/12/20 15:31 57 L 12/12/20 15:14 97.9 F 63 20 12/12/20 14:13 97.9 F 59 L 14 12/12/20 14:08 97.7 F 58 L 12/12/20 14:00 57 L 66/39 L 12/12/20 13:40 60 79/58 L 12/12/20 13:20 55 L 103/44 L 12/12/20 13:00 65 79/39 L 12/12/20 12:40 54 L 76/29 L 12/12/20 12:25 56 L 79/47 L 12/12/20 12:24 58 L 59/24 L 12/12/20 12:20 61 47/24 L 12/12/20 12:00 61 114/65 12/12/20 11:47 97.7 F 65 12/12/20 11:11 97.5 F L 57 L 18 12/12/20 09:45 58 L 12/12/20 06:52 98.2 F 56 L 19 BP Pulse Ox 12/12/20 15:31 12/12/20 15:14 104/65 91 12/12/20 14:13 132/65 91 12/12/20 14:08 99/58 L 12/12/20 14:00 12/12/20 13:40 12/12/20 13:20 12/12/20 13:00 12/12/20 12:40 12/12/20 12:25 12/12/20 12:24 12/12/20 12:20 12/12/20 12:00 12/12/20 11:47 12/12/20 11:11 156/74 H 95 12/12/20 09:45 12/12/20 06:52 131/60 100 PG Care Time/CCT Total # of Minutes Spent Total Time Spent with Patient: Total time spent is greater than 50% in coordination of care (as documented) at patient's floor/unit and/or counseling patient: Coding Level of Care Code 32775 Subseq Hosp Care Lvl 2 Diagnoses End-stage renal disease on hemodialysis N18.6; Z99.2
[2020-12-12] MEDS: PROMETHAZINE HCL 12.5 MG in SODIUM CHLORIDE 0.9% 50 ML IV PRN (18:06)
[2020-12-12] MEDS: ESCITALOPRAM OXALATE 20 MG TAB PO SCH (21:47)
[2020-12-12] MEDS: LEVOTHYROXINE SODIUM 100 MCG TABLET PO SCH (21:48)
[2020-12-13] MEDS ORDERED: diphenhydrAMINE Capsule 25 MG CAP PO ONE (00:40)
[2020-12-13] MEDS: MoRPHine SULFATE 2 MG/ML CARP IV PRN (01:12)
[2020-12-13] MEDS: LORazepam 0.5 MG TAB PO PRN (03:35)
[2020-12-13] MEDS: oxyCODONE HCL IR 5 MG TAB (IMMEDIATE RELEASE) PO PRN (03:35)
[2020-12-13] MEDS: PROMETHAZINE HCL 12.5 MG in SODIUM CHLORIDE 0.9% 50 ML IV PRN (04:43)
[2020-12-13] MEDS: INSULIN ASPART 100 UNITS/ML 3 ML PEN SC SCH (09:04)
[2020-12-13] MEDS: predniSONE 1 MG TAB PO SCH ×2 (09:06→09:21)
[2020-12-13] MEDS: hydrALAZINE HCL 25 MG TAB PO SCH ×2 (09:07→09:20)
[2020-12-13] MEDS: ASPIRIN 81 MG ECTAB PO SCH ×2 (09:07→09:20)
[2020-12-13] MEDS: carvediloL 25 MG TAB PO SCH (09:07)
[2020-12-13] MEDS: GABAPENTIN 100 MG CAP PO SCH (09:07)
[2020-12-13] MEDS: MAGNESIUM OXIDE 400 MG TAB PO SCH (09:07)
[2020-12-13] MEDS: CALCIUM ACETATE 667 MG CAP/TAB PO SCH ×2 (09:08→09:20)
[2020-12-13] MEDS: traMADol HCL 50 MG TABLET PO SCH (09:10)
--- NOTE | 2020-12-13 10:45 | Nephrology Progress Note ---
Date of Service December 13, 2020 Assessment & Plan (1) End-stage renal disease on hemodialysis: Plan: Shirley has confirmed that she plans to stop dialysis. She plans to transition home with hospice. We have discussed this in detail and she is resolved to this decision. Medications appropriate for kidney function. Admission and Anticipated Discharge Date Admission Date: December 09, 2020 Subjective Shirley was seen with her daughter at the bedside. We discussed complications with HD yesterday due to hypotension. Her daughter stated that she would like to see Shirley try to continue dialysis. Shirley stated that she does not want to continue dialysis. She is resolved in this decision. I explained that outpatient HD would not likely improve her quality or quantity of life and they expressed understanding. Plan to go home today and transition to hospice. Review of Systems Constitutional: + fatigue and + weakness Eyes: no problem reported Ear, Nose, Mouth, Throat: no problem reported Respiratory: no problem reported Cardiovascular: no problem reported Gastrointestinal: no problem reported Musculoskeletal: no problem reported Integumentary: no problem reported Neurologic: no problem reported Psychiatric: no problem reported Endocrine: no problem reported Hematologic / Lymphatic: no problem reported Physical Exam Constitutional: well developed and + obese; no acute distress Eyes: no scleral abnormality and no corneal abnormality ENMT: Mouth: no oral mucosal abnormality and oral mucous membranes not dry Neck: normal visual inspection and trachea midline Respiratory: normal respiratory effort Auscultation: lungs clear to auscultation bilaterally and + rales (few left base) Cardiovascular: Rate/Rhythm: regular rate Heart Sounds: normal S1, normal S2 and + murmur Extremities: + AV fistula; no edema Musculoskeletal: Extremities: no cyanosis and no clubbing Skin: normal turgor; no lesions Neurologic: Motor/Sensory: no tremor and no asterixis Psychiatric: Orientation: alert and oriented x 3 Results & Data ([facility]) Vital Signs (Past 12 Hours) Vital Signs Temp Pulse Pulse Pulse Pulse Pulse Resp 12/13/20 09:46 37.1 C 59 L 99 H 58 L 63 20 12/13/20 08:09 37.1 C 99 H 20 12/13/20 07:56 63 12/13/20 04:08 36.8 C 66 24 12/13/20 00:19 36.5 C 62 22 12/12/20 23:33 57 L BP BP Pulse Ox 12/13/20 09:46 183/77 H 164/62 H 94 12/13/20 08:09 183/77 H 94 12/13/20 07:56 12/13/20 04:08 195/63 H 91 12/13/20 00:19 208/83 H 92 12/12/20 23:33 Laboratory Results Laboratory Results - last 24 hr 12/12/20 12/12/20 12/12/20 11:09 14:39 16:26 POC Glucose 83 110 H 177 H 12/12/20 12/13/20 21:41 07:34 POC Glucose 112 H 80 PG Care Time/CCT Total # of Minutes Spent Total Time Spent with Patient: Total time spent is greater than 50% in coordination of care (as documented) at patient's floor/unit and/or counseling patient: 25 Coding Level of Care Code 50277 Subseq Hosp Care Lvl 3 Diagnoses End-stage renal disease on hemodialysis N18.6; Z99.2
--- NOTE | 2020-12-13 18:22 | Discharge Summary ---
Date of Service December 13, 2020 Admission HPI Per Admitting Provider Shirley Patrick is a 75yo female with multiple medical problems to include ESRD on HD q T/R/Sat, CAD, DM, HTN, HLP presenting from home after a fall. Patient has been feeling weak for the last 2-3 days. She was coming back from the bathroom this evening when she tripped over a floor fan and fell. She braced herself with her hands. No head trauma or LOC. She was unable to get up due to weakness. EMS was called and she was brought to [facility]. She thinks she was on the ground appx 30 minutes. Denies chest pain, palpitations, fever, chills, cough, SOB, dizziness, abdominal pain, nausea, vomiting. She has needed extra HD treatments in the past due to hyperkalemia She has some back pain which is chronic as well as chronic loose stools which are unchanged. Last full HD on Wednesday. Patient follow with Dr. Stephenson ER Course: Ca gluconate x 1gm, Insulin 10u + D50, NSS x 500mL Principal Diagnosis Home with hospice care due to end-stage renal disease with decision made to stop dialysis Discharge Exam The patient appeared chronically ill Vital signs as documented. Lungs are clear to auscultation and appear unlabored Cardiac exam, Rhythm is regular.. No murmurs, rubs or gallops. Abdominal exam reveals normal bowel sounds, soft non tender, no masses Extremities are 1+ edematous and both pedal pulses are normal. Neurologic exam is alert and oriented, no focal loss of strength or sensation Skin is without bruises or rashes Psychologically is without concerns for anxiety or depression. Discharge Data Allergies Allergy/AdvReac Type Severity Reaction Status Date / Time lisinopril AdvReac Intermediate cough Verified 11/25/20 11:38 Consultations 12/09/20 05:58 ED Decision to Admit Stat 12/09/20 08:52 Consult Nephrology Routine Hospital Course (1) End-stage renal disease on hemodialysis: (1) Fall: 75yo female with multiple medical problems presenting with ground level mechanical fall in the home. Patient reports tripping over a fan. No CP/Palpitations/Dizziness. No LOC or head trauma. Skin tears on hands. Patient reports generalized weakness for the last several days. She had also taken a Flexeril earlier in the evening which could have contributed to fall as well. -Fall precautions, scapulae x ray no acute fracture identified Prescribed morphine elixir for pain control (2) End-stage renal disease on hemodialysis: Patient now is discontinuing with dialysis. This is now supported by her daughter but supported by her . once home on hospice will stop many medications (3) GERD without esophagitis: Chronic. Asymptomatic -Continue GERD 40mg po BID (4) Dyslipidemia: Chronic -Continue Fenofibrate (5) Obstructive sleep apnea: Chronic -Continue CPAP 12 cm H2O qHS (6) Hypothyroidism: Chronic -Continue Synthroid 100mcg po daily (7) Coronary artery disease: Chronic. No ischemic changes on EKG. Elevated troponin at 0.081 in setting of ESRD - uncertain significance elevated troponin from renal failure no suspicion of [place] -Continue ASA, Atorvastatin, Carvedilol (8) Polymyalgia rheumatica: (9) Diabetes mellitus: instructed the pt that once on hospice may consider stopping diabetic care (10) Hypertension: -Continue Hydralazine 25mg po TID -Continue Carvedilol (11) Depression with anxiety: Chronic -Continue Ativan 0.5mg po BID PRN -Continue Escitalopram Code - DNR/DNI per discussion with patient Total Time Total Time Spent Total Time Spent (In Minutes): It required greater than 30 minutes to prepare this patient for discharge Discharge Plan Discharge Items Patient Disposition: Home - Self-Care Reason For Visit: WEAKNESS, FALL Discharge Diagnosis: elevated potassium end stage renal disease on dialysis Activity: Per Instructions section Non-emergency contact: Primary Care Provider and Visual Education Director Call non-emergency contact if: you have any medication questions Follow-up/Referrals: ProJulito MD [Primary Care Provider] - 12/17/20 1:30 pm (APPOINTMENT WITH AYAN KEITH WEDNESDAY AT 1:30PM) Diet: Dialysis Renal Addtl Attending Provider Instructions: Some low-potassium foods include: berries, such as strawberries and blueberries. apples. grapefruit. pineapple. cranberries and cranberry juice. cauliflower. broccoli. eggplant Please watch your fluids and foods high in potassium Bananas, oranges, cantaloupe, honeydew, apricots, grapefruit (some dried fruits, such as prunes, raisins, and dates, are also high in potassium) Cooked spinach. Cooked broccoli. Potatoes. Sweet potatoes. Mushrooms. Peas. Cucumbers Pending Studies at Discharge: No Stand-Alone Forms: My [facility] Respiratory Motion, Smoking Cessation Medications and DC Order Prescriptions: New ondansetron HCl [Zofran] 4 mg tablet 4 mg PO Q6H PRN (Reason: nausea and vomiting) Qty: 20 RF: 0 morphine concentrate 100 mg/5 mL (20 mg/mL) solution 20 mg sublingual Q6H PRN (Reason: pain) Qty: 15 RF: 0 morphine concentrate 100 mg/5 mL (20 mg/mL) solution 20 mg sublingual Q6H PRN (Reason: pain) Qty: 30 RF: 0 Continued prednisone 1 mg tablet 4 mg PO DAILY Qty: 120 RF: 2 lorazepam 0.5 mg tablet 0.5 mg PO BID PRN (Reason: anxiety; difficulty swallowing) Qty: 30 RF: 0 escitalopram oxalate [Lexapro] 20 mg tablet 20 mg PO HS Qty: 30 RF: 3 gabapentin 100 mg capsule 200 mg PO BID Qty: 360 RF: 0 (DME) pen needle, diabetic [BD Ultra-Fine Short Pen Needle] 31 gauge x 5/16" needle See Dose Instructions .ROUTE .MEDSUPPLY Qty: 60 RF: 5 pantoprazole 40 mg tablet,delayed release (DR/EC) 40 mg PO BID 90 Days Qty: 180 RF: 3 levothyroxine 100 mcg tablet 100 mcg PO QPM Qty: 90 RF: 3 (DME) OneTouch Verio test strips Strip See Rx Instructions .ROUTE .MEDSUPPLY Qty: 100 RF: 3 (DME) blood-glucose meter [OneTouch Verio Meter] Misc See Rx Instructions .ROUTE .MEDSUPPLY Qty: 1 RF: 0 (DME) lancets [OneTouch Delica Lancets] 33 gauge misc See Rx Instructions .ROUTE .MEDSUPPLY Qty: 100 RF: 3 tramadol 50 mg tablet 50 mg PO BID Qty: 60 RF: 2 acetaminophen [Tylenol Extra Strength] 500 mg Tablet 1,000 mg PO Q6H PRN (Reason: Pain) RF: 0 ProRenal 8 mg iron-800 mcg-1,000 unit tablet 1 tab PO QDL RF: 0 (DME) Oxygen Home Liters Per Minute See Rx Instructions .ROUTE .MEDSUPPLY Qty: 1 RF: 0 ondansetron HCl 8 mg tablet 8 mg PO Q8H PRN (Reason: Nausea) RF: 0 Discontinued Levemir FlexTouch U-100 Insuln 100 unit/mL (3 mL) insulin pen 20 unit subcut BID Qty: 15 RF: 5 hydralazine 25 mg tablet 25 mg PO TID 90 Days Qty: 270 RF: 1 atorvastatin 20 mg tablet 20 mg PO HS Qty: 90 RF: 3 Hold Instructions: muscle pain carvedilol 25 mg tablet 25 mg PO BID Qty: 180 RF: 3 magnesium oxide 400 mg magnesium capsule 400 mg PO QAM RF: 0 calcium carbonate [Calcium 500] 500 mg calcium (1,250 mg) tablet 500 mg PO QDD RF: 0 aspirin 81 mg Tablet,Delayed Release (Dr/Ec) 81 mg PO QAM RF: 0 calcium acetate(phosphat bind) 667 mg capsule 1,334 mg PO TIDM RF: 0 fenofibrate nanocrystallized [Tricor] 48 mg tablet 48 mg PO QPM RF: 0 Discharge Orders: Discharge Order (Routine); Ordered 12/13/20 Ordered By: Savage Palma/Other Patient Handouts: Low Potassium Diet Dc Admission Data Admit Date/Time: 12/09/20 06:23 Attending Provider: Savage Dial Admit Provider: Maegan Ortega Primary Care Provider: Julito Burt Other Providers: Maegan Ortega ; Hugo Patrick ; [facility] Other Interventions: Discharge Summary Assessment (RN) Last Done: 12/13/20 09:46 Coding Level of Care Code D/C DAY MANAGEMENT >30 MINS Diagnoses End-stage renal disease on hemodialysis N18.6; Z99.2
== END 2020-12-13 11:09 | disposition hospice, home (50) | DRG 640 ==
LOC: ED 04:11 → SUATTDRO 06:23 → 2S 06:23

== ENCOUNTER 2020-12-17 19:11 | Inpatient (IN) ==
--- NOTE | 2020-12-17 19:48 | Emergency Department Note ---
History of Present Illness General Chief complaint: Illness Stated complaint: Nausea/vomiting Time Seen by Provider: 12/17/20 19:36 History of Present Illness Provider complaint: Weakness nausea vomiting altered mental status Onset (ago): week(s) 1 Maximum Pain Intensity: 8 Associated symptoms: + confusion, + nausea/vomiting and + weakness; no chest pain, no fever/chills, no headaches or no shortness of breath 75-year-old female end-stage renal disease on hemodialysis Wednesday presents emergency department with family for weakness nausea vomiting and altered mental status. Patient states she was recently just discharged from the hospital. She states since being discharged she has been getting progressively weaker and the nausea and vomiting have increased. She denies any hematemesis coffee-ground emesis or bilious vomiting. No abdominal pain. Patient is currently being treated for UTI with Bactrim. She reports no hematuria. Patient reports constipation. No chest pain or difficulty breathing. No recent falls. Home Medications Medication Instructions Recorded Confirmed Type acetaminophen 500 mg tablet 1,000 mg PO Q6H PRN 11/07/19 12/17/20 History (Tylenol Extra Strength) vit B complx, C-iron 8 mg-folic 1 tab PO QDL 02/27/20 12/17/20 History acid 800 mcg-D3 1,000 unit-zinc tablet (ProRenal) Oxygen Home #1 ea 02/29/20 11/25/20 Rx lorazepam 0.5 mg tablet 0.5 mg PO BID PRN #30 tab 06/28/20 12/17/20 Rx levothyroxine 100 mcg tablet 100 mcg PO QPM #90 tab 11/19/20 12/17/20 Rx pantoprazole 40 mg tablet,delayed 40 mg PO BID 90 Days #180 tab 11/19/20 12/17/20 Rx release pen needle, diabetic 31 gauge x #60 ea 11/19/20 11/25/20 Rx 5/16" (BD Ultra-Fine Short Pen Needle) blood sugar diagnostic (OneTouch #100 ea 11/27/20 Rx Verio test strips) blood-glucose meter (OneTouch #1 ea 11/27/20 Rx Verio Meter) lancets 33 gauge (OneTouch Delica #100 ea 11/27/20 Rx Lancets) ondansetron HCl 4 mg tablet 4 mg PO Q6H PRN #20 tab 12/13/20 12/17/20 Rx (Zofran) Bactrim DS 800 mg-160 mg tablet 1 tab PO Q12H #14 tab NS 12/14/20 12/17/20 Rx (sulfamethoxazole-trimethoprim) calcium acetate 667 mg tablet 1,334 mg PO UD 12/17/20 12/17/20 History dicyclomine 10 mg capsule 10 mg PO TID #90 cap 12/17/20 12/17/20 Rx escitalopram oxalate 20 mg tablet 20 mg PO HS #30 tab 12/17/20 12/17/20 Rx (Lexapro) gabapentin 100 mg capsule 200 mg PO BID #360 cap 12/17/20 12/17/20 Rx ondansetron 8 mg disintegrating 8 mg PO Q8H PRN 12/17/20 12/17/20 History tablet tramadol 50 mg tablet 50 mg PO BID #60 tab 12/17/20 12/17/20 Rx Allergies Allergy/AdvReac Type Severity Reaction Status Date / Time lisinopril AdvReac Intermediate cough Verified 12/17/20 20:08 Past Med/Surg History Medical History Acute hyperkalemia Anemia Arthritis Coronary artery disease Depression with anxiety Diabetes Diabetes mellitus Diabetic retinopathy Dyslipidemia End-stage renal disease on hemodialysis GERD without esophagitis Hernia, hiatal History of thrombophlebitis Hypertension Hypothyroidism Insomnia Laceration of left lower extremity Macular puckering, bilateral Obstructive sleep apnea Panniculitis Paresthesias Polyarthritis Tubular adenoma of colon URI (upper respiratory infection) Vitamin D deficiency Surgical History H/O: hysterectomy History of bladder surgery History of cataract surgery History of nasal septoplasty S/P arteriovenous (AV) fistula creation S/P hysterectomy S/P repair of paraesophageal hernia S/P rotator cuff repair Family History Mother Leukemia Cerebral aneurysm Hypertension Anxiety Diabetes Grandmother Hypertension Father Osteoarthritis COPD (chronic obstructive pulmonary disease) Diabetes Sister Diabetes Myocardial infarction COPD (chronic obstructive pulmonary disease) Brother Myocardial infarction Diabetes Denies family history of Ovarian cancer Prostate cancer Breast cancer Colorectal cancer Social History Smoking Status: Former smoker Second Hand Exposure: No; Hx Alcohol Use: No Hx Substance Use: No Preferred Language: Arabic Communication Ability: Effective Visual Impairment: No Limitations Hearing Ability: Normal Glove Sewer Required: No Beliefs That Will Affect Care: None marital status: Current Living Situation: Spouse current occupational status: retired How many Children do You have: 1 Feels Safe at Home: Yes Dental Care, Regularly: No Physical Activity Frequency: 1-2 Times per Week Seatbelt Use: always Assistive Devices: Denture - Upper, Glasses and Oxygen - Continuous Review of Systems A total of 10 systems reviewed and were otherwise negative Physical Exam Vital Signs Vital Signs - 24 hr 12/17/20 19:21 12/17/20 19:22 12/17/20 19:43 Temperature 37.1 C Temperature Source Oral Pulse Rate 69 72 Pulse Rate [Apical] Pulse Rate from SpO2 Sensor 69 Pulse Rhythm [Apical] Respiratory Rate 19 20 Respiratory Effort / Characteristics Non-Labored Spontaneous Respiratory Depth Blood Pressure 96/72 L 96/72 L Blood Pressure [Left Arm] Blood Pressure Mean 80 80 Blood Pressure Mean [Left Arm] Pulse Oximetry 96 94 Oxygen Delivery Method Nasal Cannula Nasal Cannula Oxygen Flow Rate 2 2 Sepsis Recent Fever Within 48 Hours No Sepsis New/Unexplained Change in Mental Status No Sepsis Action Taken by Nursing No Action Required 12/17/20 19:49 12/17/20 19:50 12/17/20 20:00 Temperature Temperature Source Pulse Rate 68 71 Pulse Rate [Apical] Pulse Rate from SpO2 Sensor 68 71 Pulse Rhythm [Apical] Respiratory Rate 15 17 Respiratory Effort / Characteristics Respiratory Depth Blood Pressure 196/100 H 199/72 H Blood Pressure [Left Arm] Blood Pressure Mean 132 114 Blood Pressure Mean [Left Arm] Pulse Oximetry 93 93 99 Oxygen Delivery Method Nasal Cannula Nasal Cannula Oxygen Flow Rate 3 3 2 Sepsis Recent Fever Within 48 Hours Sepsis New/Unexplained Change in Mental Status Sepsis Action Taken by Nursing 12/17/20 20:13 12/17/20 20:30 12/17/20 20:37 Temperature Temperature Source Pulse Rate 65 Pulse Rate [Apical] Pulse Rate from SpO2 Sensor Pulse Rhythm [Apical] Respiratory Rate 19 Respiratory Effort / Characteristics Non-Labored Spontaneous Non-Labored Respiratory Depth Blood Pressure Blood Pressure [Left Arm] Blood Pressure Mean Blood Pressure Mean [Left Arm] Pulse Oximetry 98 Oxygen Delivery Method Nasal Cannula Oxygen Flow Rate 2 Sepsis Recent Fever Within 48 Hours Sepsis New/Unexplained Change in Mental Status Sepsis Action Taken by Nursing 12/17/20 20:45 12/17/20 21:00 12/17/20 21:01 Temperature Temperature Source Pulse Rate 65 67 Pulse Rate [Apical] Pulse Rate from SpO2 Sensor Pulse Rhythm [Apical] Respiratory Rate 14 18 Respiratory Effort / Characteristics Non-Labored Respiratory Depth Blood Pressure 187/88 H Blood Pressure [Left Arm] Blood Pressure Mean 121 Blood Pressure Mean [Left Arm] Pulse Oximetry 98 100 Oxygen Delivery Method Oxygen Flow Rate Sepsis Recent Fever Within 48 Hours Sepsis New/Unexplained Change in Mental Status Sepsis Action Taken by Nursing 12/17/20 21:04 12/17/20 21:30 12/17/20 22:00 Temperature Temperature Source Pulse Rate 68 69 Pulse Rate [Apical] 64 Pulse Rate from SpO2 Sensor Pulse Rhythm [Apical] Regular Respiratory Rate 16 15 12 Respiratory Effort / Characteristics Non-Labored Non-Labored Non-Labored Respiratory Depth Normal Blood Pressure 184/76 H 124/71 Blood Pressure [Left Arm] 187/88 H Blood Pressure Mean 112 88 Blood Pressure Mean [Left Arm] 121 Pulse Oximetry 98 100 99 Oxygen Delivery Method Oxygen Flow Rate Sepsis Recent Fever Within 48 Hours Sepsis New/Unexplained Change in Mental Status Sepsis Action Taken by Nursing 12/17/20 22:30 12/17/20 22:31 12/17/20 23:00 Temperature Temperature Source Pulse Rate 67 65 Pulse Rate [Apical] Pulse Rate from SpO2 Sensor Pulse Rhythm [Apical] Respiratory Rate 13 13 Respiratory Effort / Characteristics Non-Labored Non-Labored Respiratory Depth Blood Pressure 165/79 H 188/94 H Blood Pressure [Left Arm] Blood Pressure Mean 107 125 Blood Pressure Mean [Left Arm] Pulse Oximetry 98 99 Oxygen Delivery Method Nasal Cannula Oxygen Flow Rate 2 Sepsis Recent Fever Within 48 Hours Sepsis New/Unexplained Change in Mental Status Sepsis Action Taken by Nursing 12/17/20 23:30 12/18/20 00:00 Temperature Temperature Source Pulse Rate 68 66 Pulse Rate [Apical] Pulse Rate from SpO2 Sensor 67 66 Pulse Rhythm [Apical] Respiratory Rate 12 12 Respiratory Effort / Characteristics Respiratory Depth Blood Pressure 171/77 H 166/103 H Blood Pressure [Left Arm] Blood Pressure Mean 108 124 Blood Pressure Mean [Left Arm] Pulse Oximetry 98 100 Oxygen Delivery Method Nasal Cannula Oxygen Flow Rate Sepsis Recent Fever Within 48 Hours Sepsis New/Unexplained Change in Mental Status Sepsis Action Taken by Nursing Physical Exam GENERAL: She is oriented to person, place, and time. She appears well-developed and well-nourished. She does not appear distressed. HENT: Exam performed. -Head: Normocephalic and atraumatic. -Right Ear: External ear normal. No mastoid tenderness. -Left Ear: External ear normal. No mastoid tenderness. -Mouth/Throat: The oropharynx is clear and moist. No trismus in the jaw. No dental abscesses or uvula swelling. No oropharyngeal exudate or tonsillar abscesses. EYES: Conjunctivae and EOM are normal. Pupils are equal, round, and reactive to light. Right eye exhibits no discharge. Left eye exhibits no discharge. No scleral icterus. NECK: Normal range of motion. Neck supple. No JVD present. No spinous process tenderness present. No carotid bruit present. No rigidity. No tracheal deviation and normal range of motion present. No Brudzinski's sign and no Kernig's sign noted. CV: Normal rate, regular rhythm, normal heart sounds and intact distal pulses. There is no peripheral edema. Palpable radial pulses bue. PULM/CHEST: Effort normal and breath sounds normal. No respiratory distress. No stridor. She has no wheezes. She has no rales. -Chest Wall: She exhibits no tenderness. ABD: The abdomen is soft obese. Bowel sounds are normal. She has no distension. No mass is present. There is no tenderness. There is no rebound, no guarding, no Jackson's sign and no tenderness at McBurney's point. Rovsig negative MUSC/SKEL: Normal range of motion. There is no peripheral edema, tenderness or deformity. Right upper extremity AV fistula with palpable thrill. LYMPH: No cervical adenopathy. NEURO: Motor and sensation grossly intact. Course Course 193: The patient was evaluated in room C9. A complete history and physical exam was performed Cardiac monitoring: An order was placed for continuous cardiac monitoring. The monitor shows a rate of 70 with sinus rhythm EMR reviewed. Patient was admitted in the hospital from December 09, 2020 to December 13, 2020. Patient had fall and was found to have a elevated potassium. Per the discharge summary the patient was discontinuing dialysis and was to be going hospice. The daughter and patient stated they decided that they wanted to discontinue hospice and the patient is no longer on hospice and she got a full session of dialysis today. Patient was seen in the emergency department in December 14, 2020, 1 day after discharge. Patient was continued on her Bactrim for UTI.Her potassium at that time was 5.8.Patient was seen by her PCP today and they confirmed that the patient is returning to home health and is continuing dialysis and stopping hospice care. 2240: Vital signs stable. Labs show a creatinine of 6.02 and troponin of 0.146. Is thought that the patient's troponin elevation is due to her CKD, patient did not report any current chest pain or difficulty breathing. Procalcitonin level is elevated 1.74. Covid swab negative. CT of the abdomen does show mild diverticulitis. Patient be treated with IV antibiotics given her elevated procalcitonin level and be evaluated by the [facility] hospitalist team Dr. Ennis for admission. Patient treated with IV Rocephin and IV Flagyl. Administered Medications Discontinued Medications Ceftriaxone Sodium (Rocephin) 1,000 mg in 50 mls @ 100 mls/hr IV NOW STA Stop: 12/17/20 22:07 Last Infusion: 12/17/20 23:48 Dose: 0 mls/hr Documented by: [id number] Admin: 12/17/20 22:36 Dose: 100 mls/hr Documented by: [id number] Metronidazole (Flagyl) 500 mg in 100 mls @ 100 mls/hr IV NOW STA Stop: 12/17/20 22:37 Last Infusion: 12/18/20 00:53 Dose: 0 mls/hr Documented by: [id number] Admin: 12/17/20 23:48 Dose: 100 mls/hr Documented by: [id number] Sodium Chloride (Nss 1000ml) 500 mls @ 999 mls/hr IV .Q31M ONE Stop: 12/18/20 00:16 Last Infusion: 12/18/20 00:53 Dose: 0 mls/hr Documented by: [id number] Admin: 12/17/20 23:51 Dose: 999 mls/hr Documented by: [id number] Medical Decision Making Laboratory Data Result diagrams: 12/17/20 20:10 12/17/20 20:10 Lab Results 12/17/20 12/17/20 12/17/20 Range/Units 20:10 20:10 20:10 WBC 7.55 (4.8-10.8) K/uL RBC 3.05 L (4.2-5.4) M/uL Hgb 9.6 L (12.0-16.0) g/dL Hct 31.0 L (37-47) % MCV 101.6 H (80-100) fL MCH 31.5 (25-34) pg MCHC 31.0 L (32-36) g/dL RDW Std Deviation 55.8 H (36.4-46.3) fL RDW Coeff of Jared 15.1 H (11.5-14.5) % Plt Count 208 (130-400) K/uL MPV 9.7 (7.4-10.4) fL Immature Gran % (Auto) 0.4 % Neut % (Auto) 78.4 % Lymph % (Auto) 7.3 % [place] % (Auto) 12.1 % Eos % (Auto) 1.5 % Baso % (Auto) 0.3 % Neut # (Auto) 5.93 (1.4-6.5) K/uL Lymph # (Auto) 0.55 L (1.2-3.4) K/uL [place] # (Auto) 0.91 H (0.11-0.59) K/uL Eos # (Auto) 0.11 (0-0.5) K/uL Baso # (Auto) 0.02 (0-0.2) K/uL Immature Gran # (Auto) 0.03 H (0.00-0.02) K/uL PT 11.4 (9.0-12.0) Seconds INR 1.1 (0.9-1.1) APTT 31.3 H (21.0-31.0) Seconds PTT Ratio 1.2 VBG pH (7.36-7.41) VBG pCO2 (38-50) mmHg VBG pO2 mmHg VBG HCO3 mmol/L VBG O2 Saturation % VBG Base Excess mEq/L Barometric Pressure mm/Hg Sodium 134 L (136-145) mmol/L Potassium 5.0 (3.5-5.1) mmol/L Chloride 97 L (98-107) mmol/L Carbon Dioxide 29 (21-32) mmol/L Anion Gap 8.0 (3-11) BUN 42 H (7-18) mg/dl Creatinine 6.02 H* (0.6-1.2) mg/dl Est Cr Clr Drug Dosing 9.2 ml/min Est GFR ( Amer) 7.3 ml/min Est GFR (Non-Af Amer) 6.3 ml/min BUN/Creatinine Ratio 7.1 L (10-20) Glucose 78 (70-99) mg/dl Lactate (0.4-2.0) mmol/L Calcium 8.6 (8.5-10.1) mg/dl Magnesium 2.5 H (1.8-2.4) mg/dl Total Bilirubin 0.3 (0.2-1) mg/dl AST 22 (15-37) U/L ALT 15 (12-78) U/L Alkaline Phosphatase 47 (45-117) U/L Ammonia (11-32) umol/L Troponin I 0.146 H* (0-0.045) ng/ml Total Protein 7.3 (6.4-8.2) gm/dl Albumin 2.8 L (3.4-5.0) gm/dl Globulin 4.5 H (2.5-4.0) gm/dl Albumin/Globulin Ratio 0.6 L (0.9-2) Procalcitonin (0-0.5) ng/ml COVID-19 Eval Order SARS-CoV-2 (PCR) (Negative) 12/17/20 12/17/20 12/17/20 Range/Units 20:10 20:10 20:10 WBC (4.8-10.8) K/uL RBC (4.2-5.4) M/uL Hgb (12.0-16.0) g/dL Hct (37-47) % MCV (80-100) fL MCH (25-34) pg MCHC (32-36) g/dL RDW Std Deviation (36.4-46.3) fL RDW Coeff of Jared (11.5-14.5) % Plt Count (130-400) K/uL MPV (7.4-10.4) fL Immature Gran % (Auto) % Neut % (Auto) % Lymph % (Auto) % [place] % (Auto) % Eos % (Auto) % Baso % (Auto) % Neut # (Auto) (1.4-6.5) K/uL Lymph # (Auto) (1.2-3.4) K/uL [place] # (Auto) (0.11-0.59) K/uL Eos # (Auto) (0-0.5) K/uL Baso # (Auto) (0-0.2) K/uL Immature Gran # (Auto) (0.00-0.02) K/uL PT (9.0-12.0) Seconds INR (0.9-1.1) APTT (21.0-31.0) Seconds PTT Ratio VBG pH (7.36-7.41) VBG pCO2 (38-50) mmHg VBG pO2 mmHg VBG HCO3 mmol/L VBG O2 Saturation % VBG Base Excess mEq/L Barometric Pressure mm/Hg Sodium (136-145) mmol/L Potassium (3.5-5.1) mmol/L Chloride (98-107) mmol/L Carbon Dioxide (21-32) mmol/L Anion Gap (3-11) BUN (7-18) mg/dl Creatinine (0.6-1.2) mg/dl Est Cr Clr Drug Dosing ml/min Est GFR ( Amer) ml/min Est GFR (Non-Af Amer) ml/min BUN/Creatinine Ratio (10-20) Glucose (70-99) mg/dl Lactate 0.7 (0.4-2.0) mmol/L Calcium (8.5-10.1) mg/dl Magnesium (1.8-2.4) mg/dl Total Bilirubin (0.2-1) mg/dl AST (15-37) U/L ALT (12-78) U/L Alkaline Phosphatase (45-117) U/L Ammonia < 10.0 L (11-32) umol/L Troponin I (0-0.045) ng/ml Total Protein (6.4-8.2) gm/dl Albumin (3.4-5.0) gm/dl Globulin (2.5-4.0) gm/dl Albumin/Globulin Ratio (0.9-2) Procalcitonin 1.74 H (0-0.5) ng/ml COVID-19 Eval Order SARS-CoV-2 (PCR) (Negative) 12/17/20 12/17/20 12/17/20 Range/Units 20:10 22:40 22:40 WBC (4.8-10.8) K/uL RBC (4.2-5.4) M/uL Hgb (12.0-16.0) g/dL Hct (37-47) % MCV (80-100) fL MCH (25-34) pg MCHC (32-36) g/dL RDW Std Deviation (36.4-46.3) fL RDW Coeff of Jared (11.5-14.5) % Plt Count (130-400) K/uL MPV (7.4-10.4) fL Immature Gran % (Auto) % Neut % (Auto) % Lymph % (Auto) % [place] % (Auto) % Eos % (Auto) % Baso % (Auto) % Neut # (Auto) (1.4-6.5) K/uL Lymph # (Auto) (1.2-3.4) K/uL [place] # (Auto) (0.11-0.59) K/uL Eos # (Auto) (0-0.5) K/uL Baso # (Auto) (0-0.2) K/uL Immature Gran # (Auto) (0.00-0.02) K/uL PT (9.0-12.0) Seconds INR (0.9-1.1) APTT (21.0-31.0) Seconds PTT Ratio VBG pH 7.34 L (7.36-7.41) VBG pCO2 57 H (38-50) mmHg VBG pO2 39 mmHg VBG HCO3 30 mmol/L VBG O2 Saturation 69.3 % VBG Base Excess 3.1 mEq/L Barometric Pressure 730.3 mm/Hg Sodium (136-145) mmol/L Potassium (3.5-5.1) mmol/L Chloride (98-107) mmol/L Carbon Dioxide (21-32) mmol/L Anion Gap (3-11) BUN (7-18) mg/dl Creatinine (0.6-1.2) mg/dl Est Cr Clr Drug Dosing ml/min Est GFR ( Amer) ml/min Est GFR (Non-Af Amer) ml/min BUN/Creatinine Ratio (10-20) Glucose (70-99) mg/dl Lactate (0.4-2.0) mmol/L Calcium (8.5-10.1) mg/dl Magnesium (1.8-2.4) mg/dl Total Bilirubin (0.2-1) mg/dl AST (15-37) U/L ALT (12-78) U/L Alkaline Phosphatase (45-117) U/L Ammonia (11-32) umol/L Troponin I (0-0.045) ng/ml Total Protein (6.4-8.2) gm/dl Albumin (3.4-5.0) gm/dl Globulin (2.5-4.0) gm/dl Albumin/Globulin Ratio (0.9-2) Procalcitonin (0-0.5) ng/ml COVID-19 Eval Order Covid19 at [facility] SARS-CoV-2 (PCR) NEGATIVE (Negative) Imaging Data Radiologist's Impression: Abdomen/Pelvis CT 12/17/20 19:44 CT SCAN OF THE ABDOMEN AND PELVIS WITHOUT CONTRAST CLINICAL HISTORY: Dysuria, nausea, vomiting. Change in mental status. COMPARISON STUDY: 321 TECHNIQUE: CT scan of the abdomen and pelvis was performed from the lung bases to the proximal femurs. Images are reviewed in the axial, sagittal, and coronal planes. IV contrast was not administered for this examination. A dose lowering technique was utilized adhering to the principles of ALARA. CT DOSE: 1381.54 mGy.cm FINDINGS: Lower chest: There is a 5 mm right lower lobe pulmonary nodule which was not visualized with certainty on the prior study. There are basilar parenchymal opacities statistically atelectatic. The heart is enlarged. There is a moderate hiatal hernia containing debris. There are small bilateral pleural effusions. Liver: The unenhanced liver is normal in size, contour, and attenuation. There is no intrahepatic biliary ductal dilatation. Gallbladder: Unremarkable. Spleen: Normal in size and attenuation. Pancreas: Unremarkable. Adrenal glands: There is a 16mm left adrenal adenoma. Kidneys: The kidneys appear somewhat atrophic. There is no hydronephrosis. Bowel: There are no transition zones to indicate bowel obstruction. There is colonic diverticulosis with suspected minimal sigmoid diverticulitis. There are no findings to indicate acute appendicitis Peritoneum: There is no intraperitoneal free air or abdominal ascites. There are small fat-containing inguinal hernias. There is a fat-containing umbilical cristian ia. Vasculature: The abdominal aorta is normal in course and caliber. Adenopathy: None. Pelvic viscera: The uterus is surgically absent Skeletal structures: No destructive osseous lesions are seen. IMPRESSION: 1. Small bilateral pleural effusions with basilar opacities likely atelectatic 2. Interval development of a 5 mm right lower lobe pulmonary nodule. Six-month follow-up CT scan should be considered. 3. New/enlarging moderate debris filled hiatal hernia 4. Left adrenal adenoma 5. Colonic diverticulosis with suspected minimal sigmoid diverticulitis ACT 112: Positive. There are findings on this exam that require communication between the performing entity and the patient following Patient Test Result Information Act ([place] Act 112) guidelines. Electronically signed by: Oscar Santa M.D. 12/17/2020 8:[address] 12/17/20 19:44 CT head/brain wo con CLINICAL HISTORY: Acute change in mental status. Weakness. COMPARISON STUDY: 08/05/2020 TECHNIQUE: Axial CT of the brain is performed from the vertex to the skull base. IV contrast was not administered for this examination. A dose lowering technique was utilized adhering to the principles of ALARA. CT DOSE: 1151.75 mGy.cm FINDINGS: No intra or extra-axial mass lesions are visualized. There is no CT evidence of acute cortical infarction. There is no evidence of midline shift. There is no acute hemorrhage. No calvarial fractures are visualized. There are patchy white matter hypodensities likely on a small vessel basis. There is no evidence of pathologic ventricular dilatation. There is no evidence of acute sinusitis IMPRESSION: No acute intracranial findings ACT 112: Negative or not required by law. Electronically signed by: Oscar Santa M.D. 12/17/2020 8:38 PM ECG Data Indication: + weakness Rate (beats per minute): 67 Rhythm: + normal sinus ECG Intervals/blocks: + Normal QRS, + Normal UT and + Normal QT-c ECG ST segments: + Normal ST segments [facility] Narrative 1936: The patient was evaluated in room C9. A complete history and physical exam was performed Cardiac monitoring: An order was placed for continuous cardiac monitoring. The monitor shows a rate of 70 with sinus rhythm EMR reviewed. Patient was admitted in the hospital from December 09, 2020 to December 13, 2020. Patient had fall and was found to have a elevated potassium. Per the discharge summary the patient was discontinuing dialysis and was to be going hospice. The daughter and patient stated they decided that they wanted to discontinue hospice and the patient is no longer on hospice and she got a full session of dialysis today. Patient was seen in the emergency department in December 14, 2020, 1 day after discharge. Patient was continued on her Bactrim for UTI.Her potassium at that time was 5.8.Patient was seen by her PCP today and they confirmed that the patient is returning to home health and is continuing dialysis and stopping hospice care. 2240: Vital signs stable. Labs show a creatinine of 6.02 and troponin of 0.146. Is thought that the patient's troponin elevation is due to her CKD, patient did not report any current chest pain or difficulty breathing. Procalcitonin level is elevated 1.74. Covid swab negative. CT of the abdomen does show mild diverticulitis. Patient be treated with IV antibiotics given her elevated procalcitonin level and be evaluated by the [facility] hospitalist team Dr. Ortiz [place] for admission. Patient treated with IV Rocephin and IV Flagyl. Impression & Plan Diverticulitis, End-stage renal disease on hemodialysis Discharge Plan Visit Data Chief Complaint: Illness Stated Complaint: Nausea/vomiting ED Provider: Jacky Kolb Discharge Problem: Diverticulitis, End-stage renal disease on hemodialysis Patient Disposition: Being Evaluated by Hospitalist Forms Stand Alone Forms: My [facility] Prescriptions Prescriptions: No Action lorazepam 0.5 mg tablet 0.5 mg PO BID PRN (Reason: anxiety; difficulty swallowing) Qty: 30 RF: 0 (DME) pen needle, diabetic [BD Ultra-Fine Short Pen Needle] 31 gauge x 5/16" needle See Dose Instructions .ROUTE .MEDSUPPLY Qty: 60 RF: 5 pantoprazole 40 mg tablet,delayed release (DR/EC) 40 mg PO BID 90 Days Qty: 180 RF: 3 levothyroxine 100 mcg tablet 100 mcg PO QPM Qty: 90 RF: 3 (DME) OneTouch Verio test strips Strip See Rx Instructions .ROUTE .MEDSUPPLY Qty: 100 RF: 3 (DME) blood-glucose meter [OneTouch Verio Meter] Misc See Rx Instructions .ROUTE .MEDSUPPLY Qty: 1 RF: 0 (DME) lancets [OneTouch Delica Lancets] 33 gauge misc See Rx Instructions .ROUTE .MEDSUPPLY Qty: 100 RF: 3 tramadol 50 mg tablet 50 mg PO BID Qty: 60 RF: 2 escitalopram oxalate [Lexapro] 20 mg tablet 20 mg PO HS Qty: 30 RF: 3 gabapentin 100 mg capsule 200 mg PO BID Qty: 360 RF: 0 dicyclomine 10 mg capsule 10 mg PO TID Qty: 90 RF: 1 acetaminophen [Tylenol Extra Strength] 500 mg Tablet 1,000 mg PO Q6H PRN (Reason: Pain) RF: 0 ProRenal 8 mg iron-800 mcg-1,000 unit tablet 1 tab PO QDL RF: 0 (DME) Oxygen Home Liters Per Minute See Rx Instructions .ROUTE .MEDSUPPLY Qty: 1 RF: 0 sulfamethoxazole-trimethoprim [Bactrim DS] 800-160 mg tablet 1 tab PO Q12H Qty: 14 RF: 0 ondansetron HCl [Zofran] 4 mg tablet 4 mg PO Q6H PRN (Reason: nausea and vomiting) Qty: 20 RF: 0 ondansetron 8 mg Tablet,Disintegrating 8 mg PO Q8H PRN (Reason: Nausea) RF: 0 calcium acetate 667 mg Tablet 1,334 mg PO UD RF: 0 Referrals Referrals: Julito Burt MD [Primary Care Provider] -
[2020-12-17 20:21] LABS: Base Excess VBG 3.1 mEq/L; Oxygen Saturation VBG 69.3 %; pH VBG 7.34 (7.36-7.41)
[2020-12-17 20:37] LABS: Hemoglobin 9.6 g/dL (12.0-16.0); Mean Corpuscular Hemoglobin 31.5 pg (25-34); Mean Corpuscular Volume 101.6 fL (80-100); Mean Platelet Volume 9.7 fL (7.4-10.4); Platelet Count 208 K/uL (130-400); RDW Coefficient of Variation 15.1 % (11.5-14.5); RDW Standard Deviation 55.8 fL (36.4-46.3); Red Blood Count 3.05 M/uL (4.2-5.4); White Blood Count 7.55 K/uL (4.8-10.8)
--- NOTE | 2020-12-17 20:39 | CT Scan Report ---
CT head/brain wo con CLINICAL HISTORY: Acute change in mental status. Weakness. COMPARISON STUDY: 08/05/2020 TECHNIQUE: Axial CT of the brain is performed from the vertex to the skull base. IV contrast was not administered for this examination. A dose lowering technique was utilized adhering to the principles of ALARA. CT DOSE: 1151.75 mGy.cm FINDINGS: No intra or extra-axial mass lesions are visualized. There is no CT evidence of acute cortical infarc tion. There is no evidence of midline shift. There is no acute hemorrhage. No calvarial fractures ar e visualized. There are patchy white matter hypodensities likely on a small vessel basis. There is no evidence of pathologic ventricular dilatation. There is no evidence of acute sinusitis IMPRESSION: No acute intracranial findings ACT 112: Negative or not required by law. Electronically signed by: Oscar Santa M.D. 12/17/2020 8:38 PM
[2020-12-17 20:46] LABS: Basophils # (auto) 0.02 K/uL (0-0.2); Basophils % (auto) 0.3 %; Eosinophils # (auto) 0.11 K/uL (0-0.5); Eosinophils % (auto) 1.5 %; Immature Granulocytes # (auto) 0.03 K/uL (0.00-0.02); Immature Granulocytes % (auto) 0.4 %; Lymphocytes # (auto) 0.55 K/uL (1.2-3.4); Lymphocytes % (auto) 7.3 %; Monocytes # (auto) 0.91 K/uL (0.11-0.59); Monocytes % (auto) 12.1 %; Neutrophils # (auto) 5.93 K/uL (1.4-6.5); Neutrophils % (auto) 78.4 %
--- NOTE | 2020-12-17 20:51 | CT Scan Report ---
CT SCAN OF THE ABDOMEN AND PELVIS WITHOUT CONTRAST CLINICAL HISTORY: Dysuria, nausea, vomiting. Change in mental status. COMPARISON STUDY: 321 TECHNIQUE: CT scan of the abdomen and pelvis was performed from the lung bases to the proximal femurs . Images are reviewed in the axial, sagittal, and coronal planes. IV contrast was not administered fo r this examination. A dose lowering technique was utilized adhering to the principles of ALARA. CT DOSE: 1381.54 mGy.cm FINDINGS: Lower chest: There is a 5 mm right lower lobe pulmonary nodule which was not visualized with certaint y on the prior study. There are basilar parenchymal opacities statistically atelectatic. The heart is enlarged. There is a moderate hiatal hernia containing debris. There are small bilateral pleural eff usions. Liver: The unenhanced liver is normal in size, contour, and attenuation. There is no intrahepatic tal iary ductal dilatation. Gallbladder: Unremarkable. Spleen: Normal in size and attenuation. Pancreas: Unremarkable. Adrenal glands: There is a 16mm left adrenal adenoma. Kidneys: The kidneys appear somewhat atrophic. There is no hydronephrosis. Bowel: There are no transition zones to indicate bowel obstruction. There is colonic diverticulosis w ith suspected minimal sigmoid diverticulitis. There are no findings to indicate acute appendicitis Peritoneum: There is no intraperitoneal free air or abdominal ascites. There are small fat-containing inguinal hernias. There is a fat-containing umbilical hernia. Vasculature: The abdominal aorta is normal in course and caliber. Adenopathy: None. Pelvic viscera: The uterus is surgically absent Skeletal structures: No destructive osseous lesions are seen. IMPRESSION: 1. Small bilateral pleural effusions with basilar opacities likely atelectatic 2. Interval development of a 5 mm right lower lobe pulmonary nodule. Six-month follow-up CT scan shou ld be considered. 3. New/enlarging moderate debris filled hiatal hernia 4. Left adrenal adenoma 5. Colonic diverticulosis with suspected minimal sigmoid diverticulitis ACT 112: Positive. There are findings on this exam that require communication between the performing entity and the patient following Patient Test Result Information Act ([place] Act 112) guidelines. Electronically signed by: Oscar Santa M.D. 12/17/2020 8:50 PM
[2020-12-17 20:59] LABS: Albumin Globulin Ratio 0.6 (0.9-2); Albumin Level 2.8 gm/dl (3.4-5.0); BUN Creatinine Ratio 7.1 (10-20); Bilirubin,Total 0.3 mg/dl (0.2-1); Calcium 8.6 mg/dl (8.5-10.1); Creatinine Clr Calc Pharmacy 9.2 ml/min; Est GFR (African American) 7.3 ml/min; Est GFR (Non-African American) 6.3 ml/min; Globulin 4.5 gm/dl (2.5-4.0); INR 1.1 (0.9-1.1); Magnesium 2.5 mg/dl (1.8-2.4); Partial Thromboplastin Ratio 1.2; Partial Thromboplastin Time 31.3 Seconds (21.0-31.0); Prothrombin Time 11.4 Seconds (9.0-12.0); Total Protein 7.3 gm/dl (6.4-8.2); Troponin I 0.146 ng/ml (0-0.045)
[2020-12-17] MEDS ORDERED: cefTRIAXone SODIUM 1,000 MG/50 ML BAG IV STA (21:38)
[2020-12-17] MEDS ORDERED: metroNIDAZOLE 500 MG/100 ML BAG IV STA (21:38)
--- NOTE | 2020-12-17 22:59 | History & Physical Report ---
Date of Service December 17, 2020 Assessment & Plan (1) Weakness: Plan: Shirley is a 75-year-old female with a notable past medical history of ESRD on hemodialysis, hypertension, diabetes, coronary artery disease, hypothyroidism, obstructive sleep apnea, GERD, depression, restrictive lung disease, PMR, chronic respiratory failure who presented to [facility] for evaluation of nausea, vomiting, anorexia, and fatigue x 2 days in setting of recent UTI and temporarily halted dialysis. She is hemodynamically stable. Nausea and Vomiting Suspect secondary to uremia with temporarily halted dialysis following discharge from last hospital course (of note, patient originally wished to discontinue dialysis and proceed with hospice; however, after further discussion with her primary care physician, wish to continue dialysis and ongoing care). Also possible there is inflammatory component from ongoing UTI, possible minimal diverticulitis CT of the abdomen and pelvis was revealing for new/enlarging debris-filled hiatal hernia; this was not appreciable on physical exam. It is possible that this could be contributory and will require close follow-up during this hospital stay. At this time, symptoms are stable We will make n.p.o. for bowel rest Protonix 40 mg IV twice daily Zofran as needed for nausea We'll give one-time 500 cc bolus for rehydration Await blood cultures Urinary tract infection Previous outpatient urinalysis significant for possible UTI; with ongoing urinary frequency, resolved dysuria Continue with ceftriaxone for now Discontinue Bactrim Await urine cultures Possible diverticulitis At this time, lower suspicion that this is major underlying cause of her symptoms, especially when paired with her physical exam However, with ongoing work-up and severity of symptoms, will continue ceftriaxone and Flagyl for now for bowel coverage N.p.o. as above Symptom control, as above Elevated troponin Patient noted to have troponin of 0.146 upon admission, baseline appears to be lower, approximately the 0.06 range Not reporting any chest symptoms at present, or within the last 2 days. Does have history of coronary artery disease We'll trend for now. End-stage renal disease Patient normally receives dialysis Wednesday, , Wednesdayis wishing to proceed with dialysis once again following previous wish at last hospital admission to discontinue If patient remains here until , she will require inpatient dialysis Continue prorenal Anxiety Continue home Lexapro, as needed Ativan Hypothyroidism Continue levothyroxine Type 2 diabetes mellitus Hold patient's home medications Glycemic consult while here, appreciate insight and recommendations Hypertension -Patient was previously on hydralazine and Coreg for blood pressure control, these were previously stopped at last hospitalization due to previous desire to be on hospice care -We'll continue to hold for now given n.p.o. status, consider resumption thereafter if +HTN -Hydralazine, beta blockade IV as needed Chronic respiratory failure with hypoxia - 2L NC baseline 21/12 - no acute needs, continue while here Code: DNR/DNI Diet: N.p.o., okay for ice chips PPx: SCDs Dispo: MedSurg with telemetry (2) Dysuria: (3) Hypertension: (4) Acute UTI: (5) Elevated troponin: (6) Hemodialysis status: (7) Chronic respiratory failure with hypoxia: (8) Polymyalgia rheumatica: (9) CHF (congestive heart failure): (10) End-stage renal disease on hemodialysis: (11) Restrictive lung disease: (12) Cardiomyopathy: (13) Diabetic retinopathy: (14) GERD without esophagitis: (15) Insomnia: (16) Hypothyroidism: History of Present Illness Primary Care Provider: Julito Burt MD Shirley is a 75-year-old female with a notable past medical history of ESRD on hemodialysis, hypertension, diabetes, coronary artery disease, hypothyroidism, obstructive sleep apnea, GERD, depression, restrictive lung disease, PMR, chronic respiratory failure who presented to [facility] for evaluation of nausea, vomiting, anorexia, and fatigue x 2 days. Patient notes that she felt like she was in her normal health up until about 2 days ago when she began developing intermittent nausea that subsequently became worse. She notes that since that time "it feels like he can't keep anything down.". Endorses nonbilious nonbloody vomiting intermittently throughout the last 2 days. She notes that she has not been able to keep down any of her medications. She further endorses fatigue and mild epigastric pain. She has not had a bowel movement over the last several days. She denies any chest pain, palpitations, shortness of breath. No cough. Of note, she has been on ongoing treatment for a UTI with Bactrim. While she says that her dysuria is resolved, urinary frequency continues. She did undergo hemodialysis today, where they removed approximately 3 L. Her normal schedule is Wednesday//Wednesday. Overall, she reports that she felt fine after this session. Given ongoing nausea, vomiting, and fatigue, patient was recommended to come into the ER for further evaluation. In ER, patient was found to be hemodynamically stable but with concern for altered mental status. Her labs were significant for mild bump in pro calcitonin as well as troponin. CT of the abdomen pelvis did show new/enlarging moderate debris-filled hiatal hernia as well as minimal sigmoid diverticulitis. Given her constellation of symptoms, she was started on ceftriaxone and Flagyl to cover for GI bugs. Hospitalist was subsequently enrolled for admission with ongoing work-up and management of her symptoms. Allergies Allergy/AdvReac Type Severity Reaction Status Date / Time lisinopril AdvReac Intermediate cough Verified 12/17/20 20:08 Home Medications Medication Instructions Recorded Confirmed Type acetaminophen 500 mg tablet 1,000 mg PO Q6H PRN 11/07/19 12/17/20 History (Tylenol Extra Strength) vit B complx, C-iron 8 mg-folic 1 tab PO QDL 02/27/20 12/17/20 History acid 800 mcg-D3 1,000 unit-zinc tablet (ProRenal) Oxygen Home #1 ea 02/29/20 11/25/20 Rx lorazepam 0.5 mg tablet 0.5 mg PO BID PRN #30 tab 06/28/20 12/17/20 Rx levothyroxine 100 mcg tablet 100 mcg PO QPM #90 tab 11/19/20 12/17/20 Rx pantoprazole 40 mg tablet,delayed 40 mg PO BID 90 Days #180 tab 11/19/20 12/17/20 Rx release pen needle, diabetic 31 gauge x #60 ea 11/19/20 11/25/20 Rx 5/16" (BD Ultra-Fine Short Pen Needle) blood sugar diagnostic (OneTouch #100 ea 11/27/20 Rx Verio test strips) blood-glucose meter (OneTouch #1 ea 11/27/20 Rx Verio Meter) lancets 33 gauge (OneTouch Delica #100 ea 11/27/20 Rx Lancets) ondansetron HCl 4 mg tablet 4 mg PO Q6H PRN #20 tab 12/13/20 12/17/20 Rx (Zofran) Bactrim DS 800 mg-160 mg tablet 1 tab PO Q12H #14 tab NS 12/14/20 12/17/20 Rx (sulfamethoxazole-trimethoprim) calcium acetate 667 mg tablet 1,334 mg PO UD 12/17/20 12/17/20 History dicyclomine 10 mg capsule 10 mg PO TID #90 cap 12/17/20 12/17/20 Rx escitalopram oxalate 20 mg tablet 20 mg PO HS #30 tab 12/17/20 12/17/20 Rx (Lexapro) gabapentin 100 mg capsule 200 mg PO BID #360 cap 12/17/20 12/17/20 Rx ondansetron 8 mg disintegrating 8 mg PO Q8H PRN 12/17/20 12/17/20 History tablet tramadol 50 mg tablet 50 mg PO BID #60 tab 12/17/20 12/17/20 Rx Past Med/Surg History Medical History Acute hyperkalemia Anemia Arthritis Coronary artery disease Depression with anxiety Diabetes Diabetes mellitus Diabetic retinopathy Dyslipidemia End-stage renal disease on hemodialysis GERD without esophagitis Hernia, hiatal History of thrombophlebitis Hypertension Hypothyroidism Insomnia Laceration of left lower extremity Macular puckering, bilateral Obstructive sleep apnea Panniculitis Paresthesias Polyarthritis Tubular adenoma of colon URI (upper respiratory infection) Vitamin D deficiency Surgical History H/O: hysterectomy History of bladder surgery History of cataract surgery History of nasal septoplasty S/P arteriovenous (AV) fistula creation S/P hysterectomy S/P repair of paraesophageal hernia S/P rotator cuff repair Family History Mother Leukemia Cerebral aneurysm Hypertension Anxiety Diabetes Grandmother Hypertension Father Osteoarthritis COPD (chronic obstructive pulmonary disease) Diabetes Sister Diabetes Myocardial infarction COPD (chronic obstructive pulmonary disease) Brother Myocardial infarction Diabetes Denies family history of Ovarian cancer Prostate cancer Breast cancer Colorectal cancer Social History Smoking Status: Never smoker Second Hand Exposure: No; Hx Alcohol Use: No Hx Substance Use: No Preferred Language: Arabic Communication Ability: Effective Visual Impairment: No Limitations Hearing Ability: Normal 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 Beliefs That Will Affect Care: None marital status: Current Living Situation: Spouse current occupational status: retired How many Children do You have: 1 Other Information That Helps Us Care for You: No Feels Safe at Home: Yes Safety Concerns: Feels Safe At This Time Dental Care, Regularly: No Physical Activity Frequency: 1-2 Times per Week Seatbelt Use: always Assistive Devices: Walker Review of Systems Review of Systems: Constitutional: Denies fever, chills, malaise, weight change Eyes: Denies double vision, vision change, eye pain ENT: Denies ear pain, sore throat, sinus pain Cardiovascular: Denies Chest pain, chest pressure, palpitations, extremity swelling Respiratory: Denies shortness of breath, cough, sputum production, difficulty breathing Gastrointestinal: Denies abdominal pain, otherwise per HPI Genitourinary: endorses urinary frequency Musculoskeletal: Denies weakness, muscle aches/pain, joint aches/pain Integumentary:Denies rash, lesions, bruising Neurological: Denies headache, numbness, tingling, focal weakness Physical Exam Physical Exam: General: Tired appearing 75-year-old woman who is lying back in her hospital bed, relaxed, upon my arrival. She is fully alert and oriented. No acute distress. HEENT: NCAT. Eyes - Sclera are white, anicteric, and without injection. PERRL. EOMs display full ROM bilaterally. Mouth -mucous membranes are dry. Cardiac: Normal rate and regular rhythm; S1 and S2 present with no murmurs, rubs, or gallops. Pulmonary: Good respiratory effort with symmetric expansion of the chest. No use of accessory muscles. Lungs were clear to auscultation bilaterally with no crackles or wheezes. Abdominal: Normoactive bowel sounds. Abdomen was soft and nondistended. Mild tenderness to palpation epigastric region, but not elsewhere. Extremities: Upper and lower extremities are warm and well perfused. Psych: Well-developed, well-nourished, appropriately dressed for occasion. Behavior is cooperative and appropriate. Affect is WNL. Insight is appropriate. Results & Data Results & Data ([facility]) Vital Signs (Past 12 Hours) Vital Signs Temp Pulse Pulse Resp BP BP Pulse Ox 12/17/20 22:31 67 13 165/79 H 98 12/17/20 22:00 69 12 124/71 99 12/17/20 21:30 68 15 184/76 H 100 12/17/20 21:04 64 16 187/88 H 98 12/17/20 21:01 67 18 187/88 H 100 12/17/20 20:45 65 14 98 12/17/20 20:37 65 19 98 12/17/20 20:00 71 17 199/72 H 99 12/17/20 19:50 93 12/17/20 19:49 68 15 196/100 H 93 12/17/20 19:22 37.1 C 72 20 96/72 L 94 12/17/20 19:21 69 19 96/72 L 96 Supervising Physician Co-Signing Physician Notes Attending addendum: I have physically seen this patient, have supervised the medical residents activities, and agree with the H&P unless as otherwise noted. Assessment and Plan: Generalized weakness- Multifactorial: Nausea and vomiting, recent hospitalization, deferral of dialysis and then resumption today with mild dehydration Nausea and vomiting- CT suggests debris filled hiatal hernia N.p.o. Protonix 40 mg IV twice daily Zofran 4 mg IV every 6 hours. Gentle IV fluid rehydration Consult gastroenterology There may be an element of diabetic gastroparesis as well Urinary tract infection- Follow urine culture and sensitivity Empiric ceftriaxone IV Hold oral Bactrim Remaining orders and notations as noted Resident Activity Tracking Resident Involvement: Resident Care Provided Care Provided: Adult Hospital Medicine (1) CHF (congestive heart failure) Heart failure chronicity: acute on chronic Heart failure type: unspecified Qualified Code(s): I50.9 - Heart failure, unspecified (2) Hypothyroidism Hypothyroidism type: unspecified Qualified Code(s): E03.9 - Hypothyroidism, unspecified (3) Hypertension Hypertension type: unspecified Qualified Code(s): I10 - Essential (primary) hypertension
[2020-12-17] MEDS ORDERED: SODIUM CHLORIDE 0.9% 1000ML 500 ML IV ONE (23:46)
[2020-12-18] MEDS ORDERED: PHARMACY GLYCEMIC MGMT CONSULT STA (00:05)
[2020-12-18] MEDS ORDERED: ONDANSETRON INJ 2 MG/ML 2 ML VIAL IV PRN (02:38)
[2020-12-18] MEDS ORDERED: LORazepam 0.5 MG TAB PO PRN (02:38)
[2020-12-18] MEDS ORDERED: cefTRIAXone SODIUM 1,000 MG in DEXTROSE 5% 50 ML IV STA (03:08)
[2020-12-18] MEDS ORDERED: GLUCAGON FOR INJ 1 MG VIAL SQ PRN (03:10)
[2020-12-18] MEDS ORDERED: GLUCOSE 10 TABS/TUBE PO PRN (03:10)
[2020-12-18] MEDS ORDERED: CARBOHYDRATES FOR HYPOGLYCEMIA PO PRN (03:10)
[2020-12-18] MEDS ORDERED: GLUCOSE 40% GEL 15 GM TUBE PO PRN (03:10)
[2020-12-18] MEDS ORDERED: DEXTROSE 50% 50 ML SYRINGE IV PRN (03:10)
[2020-12-18] MEDS ORDERED: PHARMACY GLYCEMIC MGMT CONSULT PRN (03:10)
[2020-12-18] MEDS ORDERED: DEXTROSE 50% 50 ML SYRINGE IV ONE (03:14)
[2020-12-18] MEDS: PANTOprazole 40 MG in SYRINGE 0 ML IV SCH ×3 (03:33→21:34)
[2020-12-18] MEDS ORDERED: CALCIUM ACETATE 667 MG CAP/TAB PO PRN (03:36)
[2020-12-18 04:46] LABS: Basophils # (auto) 0.02 K/uL (0-0.2); Basophils % (auto) 0.3 %; Eosinophils # (auto) 0.12 K/uL (0-0.5); Hematocrit (blood only) 30.6 % (37-47); Hemoglobin 9.4 g/dL (12.0-16.0); Immature Granulocytes # (auto) 0.02 K/uL (0.00-0.02); Immature Granulocytes % (auto) 0.3 %; Lymphocytes # (auto) 0.97 K/uL (1.2-3.4); Lymphocytes % (auto) 16.5 %; Mean Corpuscular Hemoglobin 31.5 pg (25-34); Mean Corpuscular Hgb Conc 30.7 g/dL (32-36); Mean Corpuscular Volume 102.7 fL (80-100); Mean Platelet Volume 9.8 fL (7.4-10.4); Monocytes # (auto) 0.71 K/uL (0.11-0.59); Monocytes % (auto) 12.1 %; Neutrophils # (auto) 4.03 K/uL (1.4-6.5); Neutrophils % (auto) 68.8 %; Platelet Count 207 K/uL (130-400); RDW Coefficient of Variation 15.1 % (11.5-14.5); RDW Standard Deviation 56.2 fL (36.4-46.3); Red Blood Count 2.98 M/uL (4.2-5.4); White Blood Count 5.87 K/uL (4.8-10.8)
[2020-12-18 05:15] LABS: BUN Creatinine Ratio 6.9 (10-20); C Reactive Protein 15.7 mg/dl (0-0.29); Calcium 8.5 mg/dl (8.5-10.1); Creatinine Clr Calc Pharmacy 8.4 ml/min; Est GFR (African American) 6.8 ml/min; Est GFR (Non-African American) 5.9 ml/min; Potassium 4.5 mmol/L (3.5-5.1); Troponin I 0.159 ng/ml (0-0.045)
[2020-12-18] MEDS: INSULIN ASPART 100 UNITS/ML 3 ML PEN SC SCH ×4 (06:13→21:15)
--- NOTE | 2020-12-18 07:06 | XRay Report ---
XR chest 1V portable CLINICAL HISTORY: SEPSIS COMPARISON STUDY: December 14, 2020 FINDINGS: No pneumothorax. Minimal blunting of bilateral costophrenic angle which is unchanged since prior study and might repre sent trace pleural effusion or related to superimposition of soft tissues. Eventration of right hemid iaphragm is again seen. Redemonstration of mild diffuse interstitial thickening with ill-defined patchy airspace component wi thin left retrocardiac region. Cardiomediastinal silhouette is prominent and unchanged since prior study. Aorta is calcified. No significant pulmonary vascular congestion.. Osseous structures: Osteopenia. Degenerative changes of the spine. IMPRESSION: 1. Possible trace bilateral pleural effusion. Diffuse probably chronic interstitial thickening with superimposed patchy airspace component within left retrocardiac region might represent small atelecta sis or infiltrates. 2. Stable prominence of cardiac silhouette. ACT 112: Negative or not required by law. The above report was generated using voice recognition software. It may contain grammatical, syntax o r spelling errors. Electronically signed by: Shyla Valdes DO 12/18/2020 7:05 AM
[2020-12-18] MEDS: CALCIUM ACETATE 667 MG CAP/TAB PO SCH ×3 (08:11→16:25)
[2020-12-18] MEDS: GABAPENTIN 100 MG CAP PO SCH ×2 (08:12→21:35)
[2020-12-18] MEDS: traMADol HCL 50 MG TABLET PO SCH ×2 (08:12→21:34)
[2020-12-18] MEDS: metroNIDAZOLE 500 MG/100 ML BAG IV SCH ×2 (08:12→16:27)
[2020-12-18] MEDS: DICYCLOMINE HCL 10 MG CAP PO SCH ×3 (08:12→21:34)
--- NOTE | 2020-12-18 11:04 | Nephrology Consultation ---
Date of Consultation December 18, 2020 Assessment & Plan (1) End-stage renal disease on hemodialysis: * Patient was last dialyzed yesterday at [facility] without complication. Volume status and electrolyte balance remain acceptable. No acute indication for HD today * Mrs. Patrick indicates that she would like to continue HD. She does not want hospice care at this time * Will schedule next HD for am * Outpatient HD Rx: [facility] TTS 4hr 2K 2Ca 1Mg F-180NR EDW 98kg (2) Anemia: * Will order iron levels * Will provide IV iron and RONNELL w/ HD (3) Hiatal hernia with gastroesophageal reflux disease and esophagitis: * Recommend consultation w/ GI and general surgery to determine whether any treatment options exist for patient's hiatal hernia. She has undergone evaluation w/ [facility] in the past History of Present Illness Reason for Consultation: ESRD on HD Attending Physician: Sebas Richards MD History of Present Illness Mrs. Patrick is a 74 year old white female who is seen at the request of Dr. Richards to provide inpatient HD. Medical records in the EMR were reviewed today and are summarized as follows: Mrs. 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 She has been on HD at [facility] since 2016 (TTS 4hr 2K 2Ca 1Mg F- 180NR EDW 98kg). Her medical history is significant for AODM, HTN, ASCVD, hypothyroidism, GERD, depression, RLS, TASH and large hiatal hernia with chronic abdominal/chest discomfort. Mrs. Patrick was last hospitalized 12/09 - 12/13 following a mechanical fall. She had back discomfort and was recently started on Flexeril. While using the BR she sustained a mechanical fall and required ED evaluation. Mrs. Patrick was admitted, Flexeril stopped and she was diagnosed w/ a UTI. During her hospitalization Mrs. Patrick was depressed about her medical condition. Dialysis was stopped and she was discharged to home with hospice. Mrs. Patrick returned to outpatient dialysis 12/17 and requested treatment. She was dialyzed without complication. ~ 3L UF obtained. This morning she returned to the ED for evaluation of nausea and weakness. She requests that dialysis be continued. Allergies Allergy/AdvReac Type Severity Reaction Status Date / Time lisinopril AdvReac Intermediate cough Verified 12/17/20 20:08 Home Medications Medication Instructions Recorded Confirmed Type acetaminophen 500 mg tablet 1,000 mg PO Q6H PRN 11/07/19 12/17/20 History (Tylenol Extra Strength) vit B complx, C-iron 8 mg-folic 1 tab PO QDL 02/27/20 12/17/20 History acid 800 mcg-D3 1,000 unit-zinc tablet (ProRenal) Oxygen Home #1 ea 02/29/20 11/25/20 Rx lorazepam 0.5 mg tablet 0.5 mg PO BID PRN #30 tab 06/28/20 12/17/20 Rx levothyroxine 100 mcg tablet 100 mcg PO QPM #90 tab 11/19/20 12/17/20 Rx pantoprazole 40 mg tablet,delayed 40 mg PO BID 90 Days #180 tab 11/19/20 12/17/20 Rx release pen needle, diabetic 31 gauge x #60 ea 11/19/20 11/25/20 Rx 5/16" (BD Ultra-Fine Short Pen Needle) blood sugar diagnostic (OneTouch #100 ea 11/27/20 Rx Verio test strips) blood-glucose meter (OneTouch #1 ea 11/27/20 Rx Verio Meter) lancets 33 gauge (OneTouch Delica #100 ea 11/27/20 Rx Lancets) ondansetron HCl 4 mg tablet 4 mg PO Q6H PRN #20 tab 12/13/20 12/17/20 Rx (Zofran) Bactrim DS 800 mg-160 mg tablet 1 tab PO Q12H #14 tab NS 12/14/20 12/17/20 Rx (sulfamethoxazole-trimethoprim) calcium acetate 667 mg tablet 1,334 mg PO UD 12/17/20 12/17/20 History dicyclomine 10 mg capsule 10 mg PO TID #90 cap 12/17/20 12/17/20 Rx escitalopram oxalate 20 mg tablet 20 mg PO HS #30 tab 12/17/20 12/17/20 Rx (Lexapro) gabapentin 100 mg capsule 200 mg PO BID #360 cap 12/17/20 12/17/20 Rx ondansetron 8 mg disintegrating 8 mg PO Q8H PRN 12/17/20 12/17/20 History tablet tramadol 50 mg tablet 50 mg PO BID #60 tab 12/17/20 12/17/20 Rx Patient History Medical History Acute hyperkalemia Anemia Arthritis Coronary artery disease Depression with anxiety Diabetes Diabetes mellitus Diabetic retinopathy Dyslipidemia End-stage renal disease on hemodialysis GERD without esophagitis Hernia, hiatal History of thrombophlebitis Hypertension Hypothyroidism Insomnia Laceration of left lower extremity Macular puckering, bilateral Obstructive sleep apnea Panniculitis Paresthesias Polyarthritis Tubular adenoma of colon URI (upper respiratory infection) Vitamin D deficiency Surgical History H/O: hysterectomy History of bladder surgery History of cataract surgery History of nasal septoplasty S/P arteriovenous (AV) fistula creation S/P hysterectomy S/P repair of paraesophageal hernia S/P rotator cuff repair Family History Mother Leukemia Cerebral aneurysm Hypertension Anxiety Diabetes Grandmother Hypertension Father Osteoarthritis COPD (chronic obstructive pulmonary disease) Diabetes Sister Diabetes Myocardial infarction COPD (chronic obstructive pulmonary disease) Brother Myocardial infarction Diabetes Denies family history of Ovarian cancer Prostate cancer Breast cancer Colorectal cancer Social History Smoking Status: Never smoker Second Hand Exposure: No; Hx Alcohol Use: No Hx Substance Use: No Preferred Language: Cuban Communication Ability: Effective Visual Impairment: No Limitations Hearing Ability: Normal Personalized Living Manager Required: No Beliefs That Will Affect Care: None marital status: Current Living Situation: Spouse current occupational status: retired How many Children do You have: 1 Other Information That Helps Us Care for You: No Feels Safe at Home: Yes Safety Concerns: Feels Safe At This Time Dental Care, Regularly: No Physical Activity Frequency: 1-2 Times per Week Seatbelt Use: always Assistive Devices: Walker Review of Systems Constitutional: + weakness; no fever Eyes: no worsening vision Ear, Nose, Mouth, Throat: no problem reported Respiratory: no cough and no dyspnea Cardiovascular: + chest pain; no palpitations and no edema Gastrointestinal: + abdominal pain and + nausea; no vomiting and no diarrhea/loose stools Genitourinary: no dysuria and no hematuria Musculoskeletal: no back pain Integumentary: no rash Neurologic: no falls, no dizziness and no confusion Physical Exam Constitutional: + obese; not in distress Eyes: PERRL, conjunctivae normal, anicteric sclerae ENMT: external ear and nose normal, oropharynx normal Neck: trachea midline, no thyromegaly Respiratory: Auscultation: no rales Cardiovascular: Rate/Rhythm: regular rate and regular rhythm Extremities: + AV fistula (+ bruit); no edema Gastrointestinal (Abdomen): normal bowel sounds, soft, nontender, no hepatosplenomegaly Skin: no rashes, warm and dry Neurologic: awake; not confused Results & Data ([facility]) Vital Signs (Past 12 Hours) Vital Signs Temp Pulse Pulse Pulse Resp BP BP 12/18/20 07:41 70 12/18/20 06:38 36.7 C 69 18 166/76 H 12/18/20 03:51 69 12/18/20 02:46 37.1 C 67 16 192/79 H 12/18/20 02:00 66 17 160/82 H 12/18/20 01:30 17 186/62 H 12/18/20 01:00 68 24 181/93 H 12/18/20 00:00 66 12 166/103 H 12/17/20 23:30 68 12 171/77 H Pulse Ox 12/18/20 07:41 12/18/20 06:38 95 12/18/20 03:51 12/18/20 02:46 94 12/18/20 02:00 99 12/18/20 01:30 12/18/20 01:00 100 12/18/20 00:00 100 12/17/20 23:30 98 Laboratory Results Laboratory Tests 12/18/20 12/18/20 04:16 04:16 WBC 5.87 Hgb 9.4 L Hct 30.6 L Plt Count 207 Sodium 135 L Potassium 4.5 Chloride 99 Carbon Dioxide 35 H BUN 44 H Creatinine 6.38 H* D Glucose 101 H PG Care Time/CCT Total # of Minutes Spent Total Time Spent with Patient: Total time spent is greater than 50% in c oordination of care (as documented) at patient's floor/unit and/or counseling patient: Coding Level of Care Code 36625 Inpt Consult Level 5 Diagnoses End-stage renal disease on hemodialysis N18.6; Z99.2 Anemia D64.9 Hiatal hernia with gastroesophageal reflux disease and esophagitis K44.9; K21.00
--- NOTE | 2020-12-18 11:45 | Gastrointestinal Consultation ---
Date of Consultation December 18, 2020 Assessment & Plan (1) GERD without esophagitis: (2) Hiatal hernia: (3) Early satiety: (4) Nausea & vomiting: Pt is a 75 y/o female admitted w weakness, n/v, anorexia suspected due to uremia and recurrent UTI; seen for findings of debris filled hiatal hernia in CT scan (chronic issue). She does c/o regurgitations, early satiety, nausea and on exam tender to palpation on upper abd areas. Prior EGD w Villafuerte pH, esophageal motility studies are unremarkable for significant GERD or esophageal dysmotility. Pt refused f/u visit with GI Surgery. - Continue Protonix 40mg IV BID ; can be switched to PO form once tolerating PO intake better - Diet as tolerated - Suspect possible gastroparesis given her diabetes and overall GI symptoms (nausea, early satiety). Considered trial of Reglan or Erythromycin to promote GI motility but they both have severe potential interaction with Escitalopram thus will avoid. Will use Zofran prn n/v for now. Consider gastric emptying study in OP setting - Avoid constipation, can use bowel regimen daily such as Miralax 17g daily to BID - Regarding ? sigmoid diverticulitis on non contrasted CT: pt non tender on LLQ area. Would recommend avoiding Flagyl as it may exacerbate n/v symptoms. - Pls recall GI prn Supervising Physician Co-Signing Physician Notes I saw and evaluated the patient. We were consulted for evaluation of nausea in the setting of a recent urinary tract infection. The patient was previously evaluated by Dr. Joyner his group and referred for pH and motility study to Dr. Sarah Mckeon. In addition she was referred to surgery for evaluation of a hiatal hernia which was felt to be nonsurgical. The patient reports ongoing nausea for several months. She denies having fevers chills sweats or weight loss. Physical examination Obese female, no obvious distress no scleral icterus No abdominal tenderness noted Impression: Patient with a recent diagnosis of urinary tract infection which could certainly be contributing to her present nausea. The patient is also on several medications which are well known to cause symptoms of nausea and anorexia, these include both Flagyl and Lexapro. Perhaps the patient would benefit from having both of these medications discontinued. With regard to long-term follow-up the patient should resume care with her regular GI group at [facility] (unless she wishes to switch to our group) Recommendations Consult [facility] for any further questions Consider stopping both Effexor and metronidazole Please call with any questions or concerns History of Present Illness Reason for Consultation: N/V, debris filled hiatal hernia Requesting Physician: Dr. Sebas Richards Attending Physician: Dr. Lilly Tobin History of Present Illness Pt is a 75 y/o female w PMHx including ESRD on HD, HTN, DM II, CAD, TASH, GERD, restrictive lung disease, who is admitted for N/V, anorexia and weakness; suspect to be related to uremia and possible UTI recurrence. GI consulted as her admission CT abd/pelvis showed debris filled hiatal hernia. Noted she had prior imaging studies such as barium swallow which indicated the hiatal hernia w debris as well thus not a new finding. There is also ? suspected minimal sigmoid diverticulitis. Though on exam pt doesnt' have tenderness on LLQ area. She does report persistent issues w acid reflux, regurgitation, nausea and early satiety. She has had prior evaluation with [facility] and GI surgery including EGD w dilation and Villafuerte capsule study 02/2020, esophageal manometry study 03/2020 which indicated no significant acid reflux or esophageal dysmotility. She last saw GI Surgery (Dr. Salcedo) in 03/2020, due for f/u after her e-motility and pH study were completed. However GI surgery outreach clinic was cancelled due to COVID19 pandemic and pt had refused to f/u with Surgery anymore after that. She reports to me today that she refuses to see GI Surgery again. Told previously there was "nothing they can do" for her, but perhaps a feeding tube placement. Noted I do not see recommendation for feeding tube placement in GI surgery notes. Allergies Allergy/AdvReac Type Severity Reaction Status Date / Time lisinopril AdvReac Intermediate cough Verified 12/17/20 20:08 Home Medications Medication Instructions Recorded Confirmed Type acetaminophen 500 mg tablet 1,000 mg PO Q6H PRN 11/07/19 12/17/20 History (Tylenol Extra Strength) vit B complx, C-iron 8 mg-folic 1 tab PO QDL 02/27/20 12/17/20 History acid 800 mcg-D3 1,000 unit-zinc tablet (ProRenal) Oxygen Home #1 ea 02/29/20 11/25/20 Rx lorazepam 0.5 mg tablet 0.5 mg PO BID PRN #30 tab 06/28/20 12/17/20 Rx levothyroxine 100 mcg tablet 100 mcg PO QPM #90 tab 11/19/20 12/17/20 Rx pantoprazole 40 mg tablet,delayed 40 mg PO BID 90 Days #180 tab 11/19/20 12/17/20 Rx release pen needle, diabetic 31 gauge x #60 ea 11/19/20 11/25/20 Rx 5/16" (BD Ultra-Fine Short Pen Needle) blood sugar diagnostic (OneTouch #100 ea 11/27/20 Rx Verio test strips) blood-glucose meter (OneTouch #1 ea 11/27/20 Rx Verio Meter) lancets 33 gauge (OneTouch Delica #100 ea 11/27/20 Rx Lancets) ondansetron HCl 4 mg tablet 4 mg PO Q6H PRN #20 tab 12/13/20 12/17/20 Rx (Zofran) Bactrim DS 800 mg-160 mg tablet 1 tab PO Q12H #14 tab NS 12/14/20 12/17/20 Rx (sulfamethoxazole-trimethoprim) calcium acetate 667 mg tablet 1,334 mg PO UD 12/17/20 12/17/20 History dicyclomine 10 mg capsule 10 mg PO TID #90 cap 12/17/20 12/17/20 Rx escitalopram oxalate 20 mg tablet 20 mg PO HS #30 tab 12/17/20 12/17/20 Rx (Lexapro) gabapentin 100 mg capsule 200 mg PO BID #360 cap 12/17/20 12/17/20 Rx ondansetron 8 mg disintegrating 8 mg PO Q8H PRN 12/17/20 12/17/20 History tablet tramadol 50 mg tablet 50 mg PO BID #60 tab 12/17/20 12/17/20 Rx Patient History Medical History Acute hyperkalemia Anemia Arthritis Coronary artery disease Depression with anxiety Diabetes Diabetes mellitus Diabetic retinopathy Dyslipidemia End-stage renal disease on hemodialysis GERD without esophagitis Hernia, hiatal History of thrombophlebitis Hypertension Hypothyroidism Insomnia Laceration of left lower extremity Macular puckering, bilateral Obstructive sleep apnea Panniculitis Paresthesias Polyarthritis Tubular adenoma of colon URI (upper respiratory infection) Vitamin D deficiency Surgical History H/O: hysterectomy History of bladder surgery History of cataract surgery History of nasal septoplasty S/P arteriovenous (AV) fistula creation S/P hysterectomy S/P repair of paraesophageal hernia S/P rotator cuff repair Family History Mother Leukemia Cerebral aneurysm Hypertension Anxiety Diabetes Grandmother Hypertension Father Osteoarthritis COPD (chronic obstructive pulmonary disease) Diabetes Sister Diabetes Myocardial infarction COPD (chronic obstructive pulmonary disease) Brother Myocardial infarction Diabetes Denies family history of Ovarian cancer Prostate cancer Breast cancer Colorectal cancer Social History Smoking Status: Never smoker Second Hand Exposure: No; Hx Alcohol Use: No Hx Substance Use: No Preferred Language: Kazakh Communication Ability: Effective Visual Impairment: No Limitations Hearing Ability: Normal Headend Technician Required: No Beliefs That Will Affect Care: None marital status: Current Living Situation: Spouse current occupational status: retired How many Children do You have: 1 Other Information That Helps Us Care for You: No Feels Safe at Home: Yes Safety Concerns: Feels Safe At This Time Dental Care, Regularly: No Physical Activity Frequency: 1-2 Times per Week Seatbelt Use: always Assistive Devices: Walker Review of Systems Review of Systems: All systems reviewed & are unremarkable except as noted in HPI & below Physical Exam Constitutional: WD/WN, vitals as above well groomed, cooperative and comfortable Eyes: PERRL, conjunctivae normal, anicteric sclerae ENMT: external ear and nose normal, oropharynx normal Respiratory: normal respiratory effort, lungs clear to auscultation Cardiovascular: RRR, no murmur, no edema Gastrointestinal (Abdomen): Soft, BS present, tender mostly across upper abd area Skin: no rashes, warm and dry no jaundice Neurologic: Motor/Sensory: no asterixis Psychiatric: A+Ox3, euthymic affect Lymphatic: no lymphedema Results & Data ([facility]) Vital Signs (Past 12 Hours) Vital Signs Temp Pulse Pulse Pulse Resp BP BP 12/18/20 11:00 36.9 C 66 20 154/78 H 12/18/20 07:41 70 12/18/20 06:38 36.7 C 69 18 166/76 H 12/18/20 03:51 69 12/18/20 02:46 37.1 C 67 16 192/79 H 12/18/20 02:00 66 17 160/82 H 12/18/20 01:30 17 186/62 H 12/18/20 01:00 68 24 181/93 H 12/18/20 00:00 66 12 166/103 H Pulse Ox 12/18/20 11:00 99 12/18/20 07:41 12/18/20 06:38 95 12/18/20 03:51 12/18/20 02:46 94 12/18/20 02:00 99 12/18/20 01:30 12/18/20 01:00 100 12/18/20 00:00 100
[2020-12-18] MEDS: NEPHROCAPS PO SCH ×2 (12:15→12:16)
--- NOTE | 2020-12-18 13:29 | Pharmacy Report ---
Pharmacy Glycemic Short Note 2 - Date of Service December 18, 2020 - Glycemic Short BSG Results (Last 24 hours): 12/17/20 12/18/20 12/18/20 20:10 03:06 03:32 Glucose 78 POC Glucose 65 L* 111 H 12/18/20 12/18/20 12/18/20 04:16 05:50 12:19 Glucose 101 H POC Glucose 79 80 OUTPATIENT ANTIDIABETIC REGIMEN: * Levemir 20 units BID * HbA1C = 5.7% (11/25/20) ASSESSMENT: * Ms Patrick is a 75 y/o F with PMH of IDT2DM who presents with N/V. She is currently NPO. * Patient was hypoglycemic overnight and received 1 amp of D50. * Will start Novolog CF 30 CR 10. This is slightly looser than required during hospitalization when eating. * Provide dose of Levemir 10 units if BSG > 180 mg/dL. This is about 2/3 of what patient typically required while eating (required Levemir 15 units). Plus if BSGs greater than 180 mg/dL then it is reasonable to assume that hypoglycemia has resolved. PLAN FOR INPATIENT GLYCEMIC CONTROL: * Basal insulin * Levemir 10 units SQ HS if BSG > 180 mg/dL * Bolus insulin * NovoLog per scale ACHS or Q6hrs while NPO * Goal Range: Low 120 mg/dL - High 160 mg/dL * Correction Factor: 30 mg/dL/unit * Nutritional / Prandial insulin per carb ratio of 1 unit per 10 grams CHO consumed PLAN FOR DISCHARGE: * Patient is on hemodialysis. * HbA1C indicates adequate control. However, this result is likely somewhat unreliable in ESRD patients d/t interactions between the A1c analyzing technique and high levels of urea in ESRD, reduced RBC life span, iron deficiency anemia, and EPO administration. HbA1c > 7.5% in ESRD patient may overestimate the extent of hyperglycemia in ESRD patients. * Therefore recommend close monitoring with BSG logs and adjustment of insulin that way.
--- NOTE | 2020-12-18 16:15 | Electrocardiogram Report ---
Test Reason : Blood Pressure : / mmHG Vent. Rate : 067 BPM Atrial Rate : 067 BPM P-R Int : 184 ms QRS Dur : 086 ms QT Int : 408 ms P-R-T Axes : 012 -62 046 degrees QTc Int : 431 ms Poor data quality, interpretation may be adversely affected Normal sinus rhythm Left axis deviation Abnormal ECG When compared with ECG of 14-DEC-2020 08:26, Premature atrial complexes are no longer Present Confirmed by Julito Pratt ([id number]) on 12/18/2020 4:14:42 PM Referred By: Julito Burt Confirmed By:Julito Pratt
--- NOTE | 2020-12-18 20:26 | Billing Data ---
Date of Service December 18, 2020 Coding Level of Care Code INT OBSERVATION CARE 70M LVL 3
[2020-12-18] MEDS: INSULIN DETEMIR FLEXPEN/FLEX TOUCH 100 UNITS/ML 3ML SC SCH (21:16)
[2020-12-18] MEDS: cefTRIAXone SODIUM 2,000 MG in DEXTROSE 5% 50 ML IV SCH (21:34)
[2020-12-18] MEDS: LEVOTHYROXINE SODIUM 100 MCG TABLET PO SCH (21:35)
[2020-12-18] MEDS: ESCITALOPRAM OXALATE 20 MG TAB PO SCH (21:35)
[2020-12-18 22:13] LABS: Appearance Urine Clear (Clear); Bacteria Urine Automated Negative (Negative); Bilirubin Urine Negative (Negative); Blood Urine Negative (Negative); Color Urine Dark Yellow; Epithelial Cell Urine Auto >30 /lpf (0-5); Glucose Urine UA Negative (Negative); Ketones Urine Trace (Negative); Leukocyte Esterase Urine Trace (Negative); Nitrite Urine Negative (Negative); Protein Urine 2+ (Negative); RBC Urine Automated 0-4 /hpf (0-4); Specific Gravity Urine 1.016 (1.000-1.030); Urobilinogen Urine Negative (Negative)
[2020-12-19] MEDS ORDERED: IRON SUCROSE 200 MG in SYRINGE 0 ML IV ONE (07:00)
[2020-12-19] MEDS ORDERED: EPOETIN ALFA 10,000 UNITS/ML VIAL IV ONE (07:00)
[2020-12-19] MEDS ORDERED: HEPARIN SOD (PORCINE) 1000 UNIT/ML IV ONE (07:00)
[2020-12-19] MEDS ORDERED: SODIUM CHLORIDE 0.9% 1000ML 1,000 ML IV PRN (07:00)
[2020-12-19 08:22] LABS: Basophils # (auto) 0.03 K/uL (0-0.2); Basophils % (auto) 0.5 %; Eosinophils # (auto) 0.26 K/uL (0-0.5); Eosinophils % (auto) 4.1 %; Hematocrit (blood only) 32.9 % (37-47); Hemoglobin 10.1 g/dL (12.0-16.0); Immature Granulocytes # (auto) 0.03 K/uL (0.00-0.02); Immature Granulocytes % (auto) 0.5 %; Lymphocytes # (auto) 1.19 K/uL (1.2-3.4); Lymphocytes % (auto) 18.8 %; Mean Corpuscular Hemoglobin 31.7 pg (25-34); Mean Corpuscular Hgb Conc 30.7 g/dL (32-36); Mean Corpuscular Volume 103.1 fL (80-100); Mean Platelet Volume 9.7 fL (7.4-10.4); Monocytes % (auto) 9.5 %; Neutrophils # (auto) 4.23 K/uL (1.4-6.5); Neutrophils % (auto) 66.6 %; Platelet Count 216 K/uL (130-400); RDW Coefficient of Variation 14.8 % (11.5-14.5); RDW Standard Deviation 56.7 fL (36.4-46.3); Red Blood Count 3.19 M/uL (4.2-5.4); White Blood Count 6.34 K/uL (4.8-10.8)
[2020-12-19] MEDS: INSULIN ASPART 100 UNITS/ML 3 ML PEN SC SCH ×4 (08:31→21:22)
[2020-12-19] MEDS: traMADol HCL 50 MG TABLET PO SCH ×2 (08:36→21:29)
[2020-12-19] MEDS: PANTOprazole 40 MG in SYRINGE 0 ML IV SCH ×2 (08:36→21:33)
[2020-12-19] MEDS: GABAPENTIN 100 MG CAP PO SCH ×2 (08:37→21:31)
[2020-12-19] MEDS: CALCIUM ACETATE 667 MG CAP/TAB PO SCH ×3 (08:38→18:14)
[2020-12-19] MEDS: NEPHROCAPS PO SCH ×2 (08:38→15:12)
[2020-12-19] MEDS: DICYCLOMINE HCL 10 MG CAP PO SCH ×3 (08:39→21:30)
[2020-12-19 08:51] LABS: BUN Creatinine Ratio 6.9 (10-20); Calcium 9.1 mg/dl (8.5-10.1); Creatinine Clr Calc Pharmacy 6.9 ml/min; Est GFR (African American) 5.3 ml/min; Est GFR (Non-African American) 4.6 ml/min; Ferritin 1265.3 ng/ml (8-388); Potassium 4.9 mmol/L (3.5-5.1)
--- NOTE | 2020-12-19 09:23 | Nephrology Progress Note ---
Date of Service December 19, 2020 Assessment & Plan (1) End-stage renal disease on hemodialysis: Plan: * Mrs. Patrick indicates that she would like to continue HD * Will provide HD today according to outpatient orders * Outpatient HD Rx: [facility] TTS 4hr 2K 2Ca 1Mg F-180NR EDW 98kg (2) Anemia: Plan: * Will provide RONNELL w/ HD * Hold IV iron due to elevated ferritin (3) Hiatal hernia with gastroesophageal reflux disease and esophagitis: Plan: * GI consultation reviewed: continue PPI and Zofran therapy. Consider gastric emptying study Admission and Anticipated Discharge Date Admission Date: December 17, 2020 Subjective Mrs. Patrick was examined in her hospital room this morning. She reports that her nausea has resolved and her strength is improved. Mrs. Patrick tolerated her breakfast without GI upset. She reaffirms that dialysis should be continued and wants a treatment this am. Review of Systems Constitutional: + weakness; no fever Eyes: no worsening vision Ear, Nose, Mouth, Throat: no problem reported Respiratory: no cough and no dyspnea Cardiovascular: no chest pain, no palpitations and no edema Gastrointestinal: no abdominal pain, no nausea, no vomiting and no diarrhea/loose stools Genitourinary: no dysuria and no hematuria Musculoskeletal: no back pain Integumentary: no rash Neurologic: no falls, no dizziness and no confusion Physical Exam Constitutional: + obese; not in distress Eyes: PERRL, conjunctivae normal, anicteric sclerae ENMT: external ear and nose normal, oropharynx normal Neck: trachea midline, no thyromegaly Respiratory: Auscultation: no rales Cardiovascular: Rate/Rhythm: regular rate and regular rhythm Extremities: + AV fistula (+ bruit); no edema Gastrointestinal (Abdomen): normal bowel sounds, soft, nontender, no hepatosplenomegaly Skin: no rashes, warm and dry Neurologic: awake; not confused Results & Data ([facility]) Vital Signs (Past 12 Hours) Vital Signs Temp Pulse Pulse Resp BP Pulse Ox 12/19/20 07:54 36.8 C 65 20 167/68 H 98 12/19/20 03:00 36.4 C L 63 18 188/76 H 96 12/18/20 23:59 60 12/18/20 22:07 37 C 66 18 166/72 H 98 Laboratory Results Laboratory Tests 12/19/20 12/19/20 07:56 07:56 WBC 6.34 Hgb 10.1 L Hct 32.9 L Plt Count 216 Sodium 133 L Potassium 4.9 Chloride 98 Carbon Dioxide 29 BUN 54 H Creatinine 7.81 H* D Glucose 61 L Transferrin % Sat 43 Ferritin 1265.3 H PG Care Time/CCT Total # of Minutes Spent Total Time Spent with Patient: Total time spent is greater than 50% in coordination of care (as documented) at patient's floor/unit and/or counseling patient: Coding Level of Care Code 54254 Subseq Hosp Care Lvl 3 Diagnoses End-stage renal disease on hemodialysis N18.6; Z99.2 Anemia D64.9 Hiatal hernia with gastroesophageal reflux disease and esophagitis K44.9; K21.00
[2020-12-19 10:10] LABS: Hepatitis B Surface Ab Quant 6.86 mIU/mL (>or=10mIU/mL Immune); Hepatitis B Surface Antibody Non-Immune
[2020-12-19 10:21] LABS: Hepatitis B Surf Ag Rflx Conf Neg (Neg)
--- NOTE | 2020-12-19 13:22 | Pharmacy Report ---
Pharmacy Glycemic Short Note 2 - Date of Service December 19, 2020 - Glycemic Short BSG Results (Last 24 hours): 12/18/20 12/18/20 12/19/20 16:27 20:12 07:47 Glucose POC Glucose 82 84 62 L* 12/19/20 12/19/20 12/19/20 07:48 07:56 08:17 Glucose 61 L POC Glucose 62 L* 64 L* 12/19/20 12/19/20 08:36 11:33 Glucose POC Glucose 105 H 136 H OUTPATIENT ANTIDIABETIC REGIMEN: * Levemir 20 units BID * HbA1C = 5.7% (11/25/20) ASSESSMENT: 12/19/20 * BSGs yesterday were 79-80-82-84 mg/dL. Fasting today was 62 mg/dL. Patient received NO insulin yesterday. * For Levemir, reduce dose patient could receive for BSG > 160 mg/dL to 5 units. * Continue Novolog. Background * Ms Patrick is a 75 y/o F with PMH of IDT2DM who presents with N/V. She is currently NPO. * Patient was hypoglycemic overnight and received 1 amp of D50. * Will start Novolog CF 30 CR 10. This is slightly looser than required during hospitalization when eating. * Provide dose of Levemir 10 units if BSG > 180 mg/dL. This is about 2/3 of what patient typically required while eating (required Levemir 15 units). Plus if BSGs greater than 180 mg/dL then it is reasonable to assume that hypoglycemia has resolved. PLAN FOR INPATIENT GLYCEMIC CONTROL: * Basal insulin * Levemir 5 units SQ HS if BSG > 160 mg/dL * Bolus insulin * NovoLog per scale ACHS or Q6hrs while NPO * Goal Range: Low 120 mg/dL - High 160 mg/dL * Correction Factor: 30 mg/dL/unit * Nutritional / Prandial insulin per carb ratio of 1 unit per 10 grams CHO consumed PLAN FOR DISCHARGE: * Patient is on hemodialysis. * HbA1C indicates adequate control. However, this result is likely somewhat unreliable in ESRD patients d/t interactions between the A1c analyzing technique and high levels of urea in ESRD, reduced RBC life span, iron deficiency anemia, and EPO administration. HbA1c > 7.5% in ESRD patient may overestimate the extent of hyperglycemia in ESRD patients. * Therefore recommend close monitoring with BSG logs and adjustment of insulin that way.
[2020-12-19] MEDS: HEPARIN SOD (PORCINE) 1000 UNIT/ML IV SCH (16:56)
[2020-12-19] MEDS: cefTRIAXone SODIUM 2,000 MG in DEXTROSE 5% 50 ML IV SCH (21:29)
[2020-12-19] MEDS: ESCITALOPRAM OXALATE 20 MG TAB PO SCH (21:30)
[2020-12-19] MEDS: INSULIN DETEMIR FLEXPEN/FLEX TOUCH 100 UNITS/ML 3ML SC SCH (21:31)
[2020-12-19] MEDS: LEVOTHYROXINE SODIUM 100 MCG TABLET PO SCH (21:33)
--- NOTE | 2020-12-19 22:26 | Hospitalist Progress Note ---
Date of Service December 19, 2020 Assessment & Plan (1) Weakness: Plan: Shirley is a 75-year-old female with a notable past medical history of ESRD on hemodialysis, hypertension, diabetes, coronary artery disease, hypothyroidism, obstructive sleep apnea, GERD, depression, restrictive lung disease, PMR, chronic respiratory failure who presented to [facility] for evaluation of nausea, vomiting, anorexia, and fatigue x 2 days in setting of recent UTI and temporarily halted dialysis. She is hemodynamically stable. Nausea and Vomiting Suspect multi-factorial, dialysis on hold, UTI, gastroparesis, Bactrim use Appreciate GI recommendations for ondansetron, no further studies warranted at this time, Will advance diet to full easy to chew Continue protonix 40 mg IV twice daily Blood culture positive for staph species, suspected contaminant Urinary tract infection Possible UTI improved with Bactrim, continue ceftriaxone, urine culture negative to date Possible diverticulitis Ruled out, Metronidazole discontinued with no LLQ pain Elevated troponin secondary to ESRD on dialysis End-stage renal disease consult nephrology Anxiety Continue home Lexapro, as needed Ativan Hypothyroidism Continue levothyroxine Type 2 diabetes mellitus Hold patient's home medications Glycemic consult while here, hypoglycemia despite not giving insulin, does not appear to need insulin on discharge Hypertension -Hydralazine, beta blockade IV as needed Chronic respiratory failure with hypoxia - 2L NC baseline 21/12 - no acute needs, continue while here Code: DNR/DNI Diet: increase to regular easy to chew diet PPx: SCDs Dispo: MedSurg with telemetry (2) Dysuria: (3) Hypertension: (4) Acute UTI: (5) Elevated troponin: (6) Hemodialysis status: (7) Chronic respiratory failure with hypoxia: (8) Polymyalgia rheumatica: (9) CHF (congestive heart failure): (10) End-stage renal disease on hemodialysis: (11) Restrictive lung disease: (12) Cardiomyopathy: (13) Diabetic retinopathy: (14) GERD without esophagitis: (15) Insomnia: (16) Hypothyroidism: Admission and Anticipated Discharge Date Admission Date: December 17, 2020 Subjective Patient seen after dialysis. No dizziness or lightheadedness. Tolerating clear liquid diet without any issues or worsening epigastric pain. No further nausea or vomiting. Having normal BMs. Abdominal pain resolved. Review of Systems Review of Systems: All systems reviewed & are unremarkable except as noted in HPI & below Physical Exam Constitutional: + obese; no acute distress Eyes: + anicteric sclerae; normal pupil size ENMT: external ear and nose normal, oropharynx normal Mouth: oral mucous membranes not dry Neck: trachea midline, no thyromegaly Respiratory: normal respiratory effort, lungs clear to auscultation Cardiovascular: Rate/Rhythm: regular rate and regular rhythm Extremities: + pedal edema (trace b/l LE) Gastrointestinal (Abdomen): Inspection/Auscultation: abdomen normal to inspection and normal bowel sounds; abdomen not distended Percussion/Palpation: + abdomen tender (mild epigastric) and abdomen soft; no guarding and abdomen not rigid Musculoskeletal: no cyanosis or clubbing, extremities motor strength 5/5 Skin: no rashes, warm and dry Neurologic: moves all extremities and awake; not confused Psychiatric: A+Ox3, euthymic affect Genitourinary: no CVA tenderness Results & Data Results & Data ([facility]) Vital Signs (Past 12 Hours) Vital Signs Temp Pulse Pulse Pulse Resp BP BP 12/19/20 19:35 37.1 C 64 18 159/71 H 12/19/20 17:05 36.5 C 68 156/70 H 12/19/20 16:40 60 144/67 H 12/19/20 16:20 58 L 110/95 12/19/20 16:00 81 150/74 H 12/19/20 15:40 62 136/78 12/19/20 15:20 61 159/75 H 12/19/20 15:00 62 151/75 H 12/19/20 14:40 65 153/100 H 12/19/20 14:20 63 145/77 H 12/19/20 14:00 67 142/46 H 12/19/20 13:40 62 162/87 H 12/19/20 13:20 64 140/68 12/19/20 12:50 36.5 C 65 12/19/20 11:55 36.8 C 64 20 183/84 H Pulse Ox 12/19/20 19:35 94 12/19/20 17:05 12/19/20 16:40 12/19/20 16:20 12/19/20 16:00 12/19/20 15:40 12/19/20 15:20 12/19/20 15:00 12/19/20 14:40 12/19/20 14:20 12/19/20 14:00 12/19/20 13:40 12/19/20 13:20 12/19/20 12:50 12/19/20 11:55 93 PG Care Time/CCT Total # of Minutes Spent Total Time Spent with Patient: Total time spent is greater than 50% in coordination of care (as documented) at patient's floor/unit and/or counseling patient: Coding Level of Care Code 51206 Subseq Obs Care Lvl 2 Diagnoses Weakness R53.1 Dysuria R30.0 Hypertension I10 Hypertension type: unspecified Acute UTI N39.0 Elevated troponin R77.8 Hemodialysis status Z99.2 Chronic respiratory failure with hypoxia J96.11 Polymyalgia rheumatica M35.3 CHF (congestive heart failure) I50.9 Heart failure chronicity: acute on chronic Heart failure type: unspecified End-stage renal disease on hemodialysis N18.6; Z99.2 Restrictive lung disease J98.4 Cardiomyopathy I42.9 Diabetic retinopathy E11.319 GERD without esophagitis K21.9 Insomnia G47.00 Hypothyroidism E03.9 Hypothyroidism type: unspecified (1) CHF (congestive heart failure) Heart failure chronicity: acute on chronic Heart failure type: unspecified Qualified Code(s): I50.9 - Heart failure, unspecified (2) Hypothyroidism Hypothyroidism type: unspecified Qualified Code(s): E03.9 - Hypothyroidism, unspecified (3) Hypertension Hypertension type: unspecified Qualified Code(s): I10 - Essential (primary) hypertension
[2020-12-20] MEDS: INSULIN ASPART 100 UNITS/ML 3 ML PEN SC SCH ×2 (08:18→13:43)
[2020-12-20] MEDS: PANTOprazole 40 MG in SYRINGE 0 ML IV SCH (09:04)
[2020-12-20] MEDS: CALCIUM ACETATE 667 MG CAP/TAB PO SCH ×2 (09:04→13:34)
[2020-12-20] MEDS: DICYCLOMINE HCL 10 MG CAP PO SCH ×2 (09:05→14:44)
[2020-12-20] MEDS: NEPHROCAPS PO SCH (09:05)
[2020-12-20] MEDS: GABAPENTIN 100 MG CAP PO SCH (09:05)
[2020-12-20] MEDS: traMADol HCL 50 MG TABLET PO SCH (09:06)
--- NOTE | 2020-12-20 09:59 | Nephrology Progress Note ---
Date of Service December 20, 2020 Assessment & Plan (1) End-stage renal disease on hemodialysis: Plan: * Will schedule next HD for am * Outpatient HD Rx: [facility] [place] TTS 4hr 2K 2Ca 1Mg F-180NR EDW 98kg * If discharge is anticipated, please contact [facility] [place] [phone] and notify them to resume outpatient HD (2) Anemia: Plan: * Will provide RONNELL w/ HD * Hold IV iron due to elevated ferritin (3) Hiatal hernia with gastroesophageal reflux disease and esophagitis: Plan: * GI consultation reviewed: continue PPI and Zofran therapy. Consider gastric emptying study (4) Diverticulitis: Plan: * 12/[address]: minimal sigmoid diverticulitis * Clinically improved following antibiotic therapy. Remains on IV Ceftriaxone therapy Admission and Anticipated Discharge Date Admission Date: December 17, 2020 Subjective Mrs. Patrick was examined in her hospital room this morning. She is tolerating a regular diet without GI upset. She voices no new medical concerns. Mrs. Patrick tolerated HD yesterday for 3 L UF without complication. Review of Systems Constitutional: no fever Eyes: no worsening vision Ear, Nose, Mouth, Throat: no problem reported Respiratory: no cough and no dyspnea Cardiovascular: no chest pain, no palpitations and no edema Gastrointestinal: no abdominal pain, no nausea, no vomiting and no diarrhea/loose stools Genitourinary: no dysuria and no hematuria Musculoskeletal: no back pain Integumentary: no rash Neurologic: no falls, no dizziness and no confusion Physical Exam Constitutional: + obese; not in distress Eyes: PERRL, conjunctivae normal, anicteric sclerae ENMT: external ear and nose normal, oropharynx normal Neck: trachea midline, no thyromegaly Respiratory: Auscultation: no rales Cardiovascular: Rate/Rhythm: regular rate and regular rhythm Extremities: + AV fistula (+ bruit); no edema Gastrointestinal (Abdomen): normal bowel sounds, soft, nontender, no hepatosplenomegaly Skin: no rashes, warm and dry Neurologic: awake; not confused Results & Data ([facility]) Vital Signs (Past 12 Hours) Vital Signs Temp Pulse Pulse Pulse Resp BP Pulse Ox 12/20/20 09:43 65 12/20/20 07:57 65 12/20/20 07:55 37.0 C 66 16 173/77 H 96 07/23/21 04:31 36.6 C 63 18 145/73 H 96 12/19/20 23:57 65 12/19/20 23:29 36.9 C 61 18 160/67 H 99 Laboratory Results Laboratory Tests 12/19/20 12/20/20 07:56 08:44 WBC 6.34 Hgb 10.1 L Hct 32.9 L Plt Count 216 Sodium Pending Potassium Pending Chloride Pending Carbon Dioxide Pending BUN Pending Creatinine Pending Calcium Pending PG Care Time/CCT Total # of Minutes Spent Total Time Spent with Patient: Total time spent is greater than 50% in coordination of care (as documented) at patient's floor/unit and/or counseling patient: Coding Level of Care Code 67305 Subseq Hosp Care Lvl 3 Diagnoses End-stage renal disease on hemodialysis N18.6; Z99.2 Anemia D64.9 Hiatal hernia with gastroesophageal reflux disease and esophagitis K44.9; K21.00 Diverticulitis K57.92
[2020-12-20 10:17] LABS: BUN Creatinine Ratio 4.2 (10-20); Calcium 8.5 mg/dl (8.5-10.1); Creatinine Clr Calc Pharmacy 11.2 ml/min; Est GFR (African American) 9.5 ml/min; Est GFR (Non-African American) 8.2 ml/min; Potassium 4.3 mmol/L (3.5-5.1)
[2020-12-20 10:19] LABS: Hematocrit (blood only) 34.1 % (37-47); Mean Corpuscular Hemoglobin 31.3 pg (25-34); Mean Corpuscular Hgb Conc 29.3 g/dL (32-36); Mean Corpuscular Volume 106.6 fL (80-100); Mean Platelet Volume 10.5 fL (7.4-10.4); Platelet Count 196 K/uL (130-400); RDW Coefficient of Variation 15.1 % (11.5-14.5); RDW Standard Deviation 59.1 fL (36.4-46.3); White Blood Count 5.95 K/uL (4.8-10.8)
--- NOTE | 2020-12-20 10:25 | Hospitalist Progress Note ---
Date of Service December 18, 2020 Assessment & Plan (1) Weakness: Plan: Shirley is a 75-year-old female with a notable past medical history of ESRD on hemodialysis, hypertension, diabetes, coronary artery disease, hypothyroidism, obstructive sleep apnea, GERD, depression, restrictive lung disease, PMR, chronic respiratory failure who presented to [facility] for evaluation of nausea, vomiting, anorexia, and fatigue x 2 days in setting of recent UTI and temporarily halted dialysis. She is hemodynamically stable. Nausea and Vomiting Suspect multi-factorial, dialysis on hold, UTI, gastroparesis, Bactrim use - appreciate GI recommendations for ondansetron, no further studies warranted at this time, Will advance diet to clear liquids today Continue protonix 40 mg IV twice daily Await blood cultures Urinary tract infection Possible UTI improved with Bactrim, continue ceftriaxone Possible diverticulitis Low suspicion of this, hold off further metronidazole Elevated troponin secondary to ESRD on dialysis End-stage renal disease consult nephrology Anxiety Continue home Lexapro, as needed Ativan Hypothyroidism Continue levothyroxine Type 2 diabetes mellitus Hold patient's home medications Glycemic consult while here, appreciate insight and recommendations Hypertension -Hydralazine, beta blockade IV as needed Chronic respiratory failure with hypoxia - 2L NC baseline 24/ - no acute needs, continue while here Code: DNR/DNI Diet: Clear liquid diet PPx: SCDs Dispo: MedSurg with telemetry (2) Dysuria: (3) Hypertension: (4) Acute UTI: (5) Elevated troponin: (6) Hemodialysis status: (7) Chronic respiratory failure with hypoxia: (8) Polymyalgia rheumatica: (9) CHF (congestive heart failure): (10) End-stage renal disease on hemodialysis: (11) Restrictive lung disease: (12) Cardiomyopathy: (13) Diabetic retinopathy: (14) GERD without esophagitis: (15) Insomnia: (16) Hypothyroidism: Admission and Anticipated Discharge Date Admission Date: December 17, 2020 Subjective No further nausea or vomiting overnight. Epigastric pain but no LLQ pain to suggest diverticulitis. No diarrhea, constipation, melena or bright red blood in stool. Planning on dialysis tomorrow. Review of Systems Review of Systems: All systems reviewed & are unremarkable except as noted in HPI & below Physical Exam Constitutional: + obese; no acute distress Eyes: + anicteric sclerae; normal pupil size ENMT: external ear and nose normal, oropharynx normal Mouth: oral mucous membranes not dry Neck: trachea midline, no thyromegaly Respiratory: normal respiratory effort, lungs clear to auscultation Cardiovascular: Rate/Rhythm: regular rate and regular rhythm Extremities: no edema Gastrointestinal (Abdomen): Inspection/Auscultation: abdomen normal to inspection and normal bowel sounds; abdomen not distended Percussion/Palpation: + abdomen tender (mild epigastric) and abdomen soft; no guarding and abdomen not rigid Musculoskeletal: no cyanosis or clubbing, extremities motor strength 5/5 Skin: no rashes, warm and dry Neurologic: moves all extremities and awake; not confused Psychiatric: A+Ox3, euthymic affect Genitourinary: no CVA tenderness Results & Data Results & Data ([facility]) Vital Signs (Past 12 Hours) Vital Signs Temp Pulse Pulse Resp BP Pulse Ox 12/18/20 15:21 65 12/18/20 15:20 103 H 12/18/20 15:12 36.6 C 68 20 145/66 H 92 12/18/20 11:00 36.9 C 66 20 154/78 H 99 12/18/20 07:41 70 12/18/20 06:38 36.7 C 69 18 166/76 H 95 PG Care Time/CCT Total # of Minutes Spent Total Time Spent with Patient: Total time spent is greater than 50% in coordination of care (as documented) at patient's floor/unit and/or counseling patient: Coding Level of Care Code 91388 Subseq Obs Care Lvl 2 Diagnoses Weakness R53.1 Dysuria R30.0 Hypertension I10 Hypertension type: unspecified Acute UTI N39.0 Elevated troponin R77.8 Hemodialysis status Z99.2 Chronic respiratory failure with hypoxia J96.11 Polymyalgia rheumatica M35.3 CHF (congestive heart failure) I50.9 Heart failure chronicity: acute on chronic Heart failure type: unspecified End-stage renal disease on hemodialysis N18.6; Z99.2 Restrictive lung disease J98.4 Cardiomyopathy I42.9 Diabetic retinopathy E11.319 GERD without esophagitis K21.9 Insomnia G47.00 Hypothyroidism E03.9 Hypothyroidism type: unspecified (1) Hypertension Hypertension type: unspecified Qualified Code(s): I10 - Essential (primary) hypertension (2) CHF (congestive heart failure) Heart failure chronicity: acute on chronic Heart failure type: unspecified Qualified Code(s): I50.9 - Heart failure, unspecified (3) Hypothyroidism Hypothyroidism type: unspecified Qualified Code(s): E03.9 - Hypothyroidism, unspecified
--- NOTE | 2020-12-20 12:36 | Pharmacy Report ---
Pharmacy Glycemic Short Note 2 - Date of Service December 20, 2020 - Glycemic Short BSG Results (Last 24 hours): 12/19/20 12/19/20 12/20/20 17:58 20:06 07:37 Glucose POC Glucose 93 104 H 64 L* 12/20/20 12/20/20 12/20/20 07:38 08:13 08:44 Glucose 124 H POC Glucose 62 L* 96 OUTPATIENT ANTIDIABETIC REGIMEN: * Levemir 20 units BID * HbA1C = 5.7% (11/25/20) ASSESSMENT: 12/20/20 * BSGs yesterday were 94-801-37-104 mg/dL. Fasting today was 62 mg/dL. Patient received 3 units of bolus insulin at lunchtime yesterday. NO BASAL given. * For Levemir, d/c. * Loosen Novolog slightly since after 3 units patient's BSGs trend downwards. 12/19/20 * BSGs yesterday were 79-80-82-84 mg/dL. Fasting today was 62 mg/dL. Patient r eceived NO insulin yesterday. * For Levemir, reduce dose patient could receive for BSG > 160 mg/dL to 5 units. * Continue Novolog. Background * Ms Patrick is a 75 y/o F with PMH of IDT2DM who presents with N/V. She is currently NPO. * Patient was hypoglycemic overnight and received 1 amp of D50. * Will start Novolog CF 30 CR 10. This is slightly looser than required during hospitalization when eating. * Provide dose of Levemir 10 units if BSG > 180 mg/dL. This is about 2/3 of what patient typically required while eating (required Levemir 15 units). Plus if BSGs greater than 180 mg/dL then it is reasonable to assume that hypoglycemia has resolved. PLAN FOR INPATIENT GLYCEMIC CONTROL: * Basal insulin * Levemir 5 units SQ HS if BSG > 160 mg/dL * Bolus insulin * NovoLog per scale ACHS or Q6hrs while NPO * Goal Range: Low 120 mg/dL - High 160 mg/dL * Correction Factor: 30 mg/dL/unit * Nutritional / Prandial insulin per carb ratio of 1 unit per 10 grams CHO consumed PLAN FOR DISCHARGE: * Patient is on hemodialysis. * HbA1C indicates adequate control. However, this result is likely somewhat u nreliable in ESRD patients d/t interactions between the A1c analyzing technique and high levels of urea in ESRD, reduced RBC life span, iron deficiency anemia, and EPO administration. HbA1c > 7.5% in ESRD patient may overestimate the extent of hyperglycemia in ESRD patients. * Therefore recommend close monitoring with BSG logs and adjustment of insulin that way.
--- NOTE | 2020-12-20 16:30 | Discharge Summary ---
Date of Service December 20, 2020 Admission HPI Per Admitting Provider Shirley is a 75-year-old female with a notable past medical history of ESRD on hemodialysis, hypertension, diabetes, coronary artery disease, hypothyroidism, obstructive sleep apnea, GERD, depression, restrictive lung disease, PMR, chronic respiratory failure who presented to [facility] for evaluation of nausea, vomiting, anorexia, and fatigue x 2 days. Patient notes that she felt like she was in her normal health up until about 2 days ago when she began developing intermittent nausea that subsequently became worse. She notes that since that time "it feels like he can't keep anything down.". End orses nonbilious nonbloody vomiting intermittently throughout the last 2 days. She notes that she has not been able to keep down any of her medications. She further endorses fatigue and mild epigastric pain. She has not had a bowel movement over the last several days. She denies any chest pain, palpitations, shortness of breath. No cough. Of note, she has been on ongoing treatment for a UTI with Bactrim. While she says that her dysuria is resolved, urinary frequency continues. She did undergo hemodialysis today, where they removed approximately 3 L. Her normal schedule is Wednesday//Wednesday. Overall, she reports that she felt fine after this session. Given ongoing nausea, vomiting, and fatigue, patient was recommended to come into the ER for further evaluation. In ER, patient was found to be hemodynamically stable but with concern for altered mental status. Her labs were significant for mild bump in pro calcitonin as well as troponin. CT of the abdomen pelvis did show new/enlarging moderate debris-filled hiatal hernia as well as minimal sigmoid diverticulitis. Given her constellation of symptoms, she was started on ceftriaxone and Flagyl to cover for GI bugs. Hospitalist was subsequently enrolled for admission with ongoing work-up and management of her symptoms. Admission Exam Per Admitting Provider General: Tired appearing 75-year-old woman who is lying back in her hospital bed, relaxed, upon my arrival. She is fully alert and oriented. No acute distress. HEENT: NCAT. Eyes - Sclera are white, anicteric, and without injection. PERRL. EOMs display full ROM bilaterally. Mouth -mucous membranes are dry. Cardiac: Normal rate and regular rhythm; S1 and S2 present with no murmurs, rubs, or gallops. Pulmonary: Good respiratory effort with symmetric expansion of the chest. No use of accessory muscles. Lungs were clear to auscultation bilaterally with no crackles or wheezes. Abdominal: Normoactive bowel sounds. Abdomen was soft and nondistended. Mild tenderness to palpation epigastric region, but not elsewhere. Extremities: Upper and lower extremities are warm and well perfused. Psych: Well-developed, well-nourished, appropriately dressed for occasion. Behavior is cooperative and appropriate. Affect is WNL. Insight is appropriate. Principal Diagnosis Nausea, vomiting, fatigue, UTI Discharge Exam Constitutional + obese; no acute distress Eyes + anicteric sclerae; normal pupil size ENMT external ear and nose normal, oropharynx normal Mouth: oral mucous membranes not dry Neck trachea midline, no thyromegaly Respiratory normal respiratory effort, lungs clear to auscultation Cardiovascular Rate/Rhythm: regular rate and regular rhythm Extremities: + pedal edema (trace b/l LE) Gastrointestinal (Abdomen) Inspection/Auscultation: abdomen normal to inspection and normal bowel sounds; abdomen not distended Percussion/Palpation: + abdomen tender (mild epigastric) and abdomen soft; no guarding and abdomen not rigid Musculoskeletal no cyanosis or clubbing, extremities motor strength 5/5 Skin no rashes, warm and dry Neurologic moves all extremities and awake; not confused Psychiatric A+Ox3, euthymic affect Discharge Data Allergies Allergy/AdvReac Type Severity Reaction Status Date / Time lisinopril AdvReac Intermediate cough Verified 12/25/20 10:13 Consultations 12/17/20 22:37 ED Decision to Admit Stat 12/18/20 07:31 Consult Nephrology Routine 12/18/20 07:34 Consult Gastroenterology Routine Ordered Studies 12/17/20 19:44 CT abd pelvis wo con Stat IMPRESSION: 1. Small bilateral pleural effusions with basilar opacities likely atelectatic 2. Interval development of a 5 mm right lower lobe pulmonary nodule. Six-month follow-up CT scan should be considered. 3. New/enlarging moderate debris filled hiatal hernia 4. Left adrenal adenoma 5. Colonic diverticulosis with suspected minimal sigmoid diverticulitis CT head/brain wo con Stat IMPRESSION: No acute intracranial findings Hospital Course (1) Weakness: (2) Dysuria: (3) Hypertension: (4) Acute UTI: (5) Elevated troponin: (6) Hemodialysis status: (7) Chronic respiratory failure with hypoxia: (8) Polymyalgia rheumatica: (9) CHF (congestive heart failure): (10) End-stage renal disease on hemodialysis: (11) Restrictive lung disease: (12) Cardiomyopathy: (13) Diabetic retinopathy: (14) GERD without esophagitis: (15) Insomnia: (16) Hypothyroidism: Shirley Patrick is a 75 year old female admitted to [facility] from December 17-2020 due to Nausea, vomiting and fatigue. Suspect this is likely multi-factorial due to recent Bactrim use, missed dialysis, UTI, gastroparesis and your hiatal hernia. Improved with bowel rest and ceftriaxone to complete treatment for her urinary tract infection. Urine culture from 12/14 showed mixed misty but given urinary symptoms suspect this was a true infection. Repeat urine culture during this hospitalization was negative suggestive the Bactrim worked for the UTI. Of note one out of two of your blood cultures on admission here from 12/17 was positive for coagulase negative staph, suspected to be a contaminant. Repeat blood cultures were taken on 12/20 and she will be called if these are subsequently positive. Your diet was slowly increased and tolerated regular diet on discharge. She underwent dialysis on 12/19. Recommend continuing on a moist diet to avoid debris getting stuck in your hiatal hernia. She will continue on her usual dialysis sessions on Wednesday, and Wednesday. Total Time Total Time Spent Total Time Spent (In Minutes): 35 Discharge Plan Discharge Items Reason For Visit: N / V, FATIGUE Discharge Diagnosis: Nausea, vomiting, fatigue, UTI Non-emergency contact: Primary Care Provider Call non-emergency contact if: you have any medication questions and your symptoms worsen Follow-up/Referrals: ProJulito MD [Primary Care Provider] - 12/25/20 10:15 am (Your appointment will be with the physician retirement assistant, Archana Cedeño. If you have any questions or need to change this appointment, please call [phone].) Diet: Dialysis Renal Addtl Attending Provider Instructions: You were admitted to [facility] from December 17-2020 due to Nausea, vomiting and fatigue. Suspect this is likely multi-factorial dur to recent Bactrim use, missed dialysis, UTI, gastroparesis and your hiatal hernia. This appeared to improve with bowel rest and ceftriaxone (antibiotic) to complete treatment for your urinary tract infection. Urine culture from 12/14 showed mixed misty but given urinary symptoms suspect this was a true infection. Repeat urine culture during this hospitalization was negative suggestive the B actrim worked for the UTI. Of note one out of two of your blood cultures on admission here from 12/17 were positive for coagulase negative staph, this is commonly a skin misty bacteria and not suspected to be a true infection at this time. Repeat blood cultures were taken on 12/20 and you will be called if these are subsequently positive. Your diet was increased and you underwent dialysis on 12/19. Recommend continuing on a moist diet to avoid debris getting stuck in your hiatal hernia. Please continue your usual dialysis sessions on Wednesday, and Wednesday. Pending Studies at Discharge: Yes Stand-Alone Forms: My [facility] [employer], Smoking Cessation Medications and DC Order Prescriptions: Continued lorazepam 0.5 mg tablet 0.5 mg PO BID PRN (Reason: anxiety; difficulty swallowing) Qty: 30 RF: 0 (DME) pen needle, diabetic [BD Ultra-Fine Short Pen Needle] 31 gauge x 5/16" needle See Dose Instructions .ROUTE .MEDSUPPLY Qty: 60 RF: 5 pantoprazole 40 mg tablet,delayed release (DR/EC) 40 mg PO BID 90 Days Qty: 180 RF: 3 levothyroxine 100 mcg tablet 100 mcg PO QPM Qty: 90 RF: 3 (DME) OneTouch Verio test strips Strip See Rx Instructions .ROUTE .MEDSUPPLY Qty: 100 RF: 3 (DME) blood-glucose meter [OneTouch Verio Meter] Misc See Rx Instructions .ROUTE .MEDSUPPLY Qty: 1 RF: 0 (DME) lancets [OneTouch Delica Lancets] 33 gauge misc See Rx Instructions .ROUTE .MEDSUPPLY Qty: 100 RF: 3 tramadol 50 mg tablet 50 mg PO BID Qty: 60 RF: 2 escitalopram oxalate [Lexapro] 20 mg tablet 20 mg PO HS Qty: 30 RF: 3 gabapentin 100 mg capsule 200 mg PO BID Qty: 360 RF: 0 dicyclomine 10 mg capsule 10 mg PO TID Qty: 90 RF: 1 acetaminophen [Tylenol Extra Strength] 500 mg Tablet 1,000 mg PO Q6H PRN (Reason: Pain) RF: 0 ProRenal 8 mg iron-800 mcg-1,000 unit tablet 1 tab PO QDL RF: 0 (DME) Oxygen Home Liters Per Minute See Rx Instructions .ROUTE .MEDSUPPLY Qty: 1 RF: 0 ondansetron HCl [Zofran] 4 mg tablet 4 mg PO Q6H PRN (Reason: nausea and vomiting) Qty: 20 RF: 0 ondansetron 8 mg Tablet,Disintegrating 8 mg PO Q8H PRN (Reason: Nausea) RF: 0 calcium acetate 667 mg Tablet 1,334 mg PO UD RF: 0 Discontinued sulfamethoxazole-trimethoprim [Bactrim DS] 800-160 mg tablet 1 tab PO Q12H Qty: 14 RF: 0 Admission Data Admit Date/Time: 12/20/20 13:10 Attending Provider: Sebas Richards Admit Provider: Sebas Richards Primary Care Provider: Julito Burt Other Providers: Carlos Eduardo Arias ; Payam Stephenson ; Dom Kwok ; [facility] ; Lilly Tobin Other Interventions: Discharge Summary Assessment (RN) Last Done: 12/20/20 16:22 Coding Level of Care Code D/C DAY MANAGEMENT >30 MINS Diagnoses Weakness R53.1 Dysuria R30.0 Hypertension I10 Hypertension type: unspecified Acute UTI N39.0 Elevated troponin R77.8 Hemodialysis status Z99.2 Chronic respiratory failure with hypoxia J96.11 Polymyalgia rheumatica M35.3 CHF (congestive heart failure) I50.9 Heart failure chronicity: acute on chronic Heart failure type: unspecified End-stage renal disease on hemodialysis N18.6; Z99.2 Restrictive lung disease J98.4 Cardiomyopathy I42.9 Diabetic retinopathy E11.319 GERD without esophagitis K21.9 Insomnia G47.00 Hypothyroidism E03.9 Hypothyroidism type: unspecified
[2020-12-20] MEDS ORDERED: PANTOprazole 40 MG TAB PO SCH (21:00)
[2020-12-21] MEDS ORDERED: HEPARIN SOD (PORCINE) 1000 UNIT/ML IV ONE (07:00)
[2020-12-21] MEDS ORDERED: EPOETIN ALFA 10,000 UNITS/ML VIAL IV ONE (07:00)
[2020-12-21] MEDS ORDERED: SODIUM CHLORIDE 0.9% 1000ML 1,000 ML IV PRN (07:00)
== END 2020-12-20 16:51 | disposition home health service (06) | DRG 689 ==
LOC: ED 19:11 → 2W 19:11 → SUATTDRO 23:44 → 2W 12-18 02:05

== ENCOUNTER 2022-04-28 10:21 | Inpatient (IN) ==
--- NOTE | 2022-04-28 10:46 | Emergency Department Note ---
Impression & Plan Weakness, Hypertension, Acute electrocardiogram changes ED Provider Note NAME: LITO MOHR AGE: 76 SEX: F : 1945 ARRIVES VIA: Walk-In INFORMANT: Patient ED PROVIDER(S): Carlos Singh DO CHIEF COMPLAINT: weakness HPI: Patient is a 76-year-old female with past medical history of diabetes, CAD, end-stage renal disease on dialysis, CHF, depression, anxiety who presents to the ER referred in from dialysis. Patient received a full treatment today. She has been getting weaker over the past 3 days. She is normally able to ambulate with a walker but has been unable to do this for the past 3 days. can no longer take care of her. She notes for 2 days she has had some double vision but that resolved today. She denies any headache. No chest pain or shortness of breath. She is supposed to wear 3 L all the time but sometimes does not. No belly pain, nausea, vomiting, or diarrhea. No dysuria, urgency, or frequency as she only makes intermittent urine with dialysis. ROS: See above HPI for pertinent positives & negatives. A total of 10 systems reviewed and were otherwise negative. PAST MEDICAL HISTORY:See Below PAST SURGICAL HISTORY:See Below FAMILY HISTORY:See Below SOCIAL HISTORY:See Below HOME MEDICATIONS:See Below ALLERGIES:See Below VITALS:See Below PHYSICAL EXAMINATION: GENERAL: Sitting up in bed, alert, chronically ill-appearing, disheveled on nasal cannula EYE EXAM: normal conjunctiva. PERRL and EOM's intact. OROPHARYNX: mucous membranes are moist NECK: supple, no nuchal rigidity, no adenopathy, non-tender LUNGS: Clear to auscultation. Normal chest wall mechanics HEART: no murmurs, S1 normal and S2 normal ABDOMEN: abdomen soft, non-tender, normo-active bowel sounds, no masses, no rebound or guarding. UPPER EXTREMITIES: upper extremities are grossly normal. LOWER EXTREMITIES: No pitting edema. NEURO EXAM: Normal sensorium, cranial nerves II-XII intact, normal speech, no weakness of arms, legs are very weak but not focal. No drift. Finger to nose intact. Gross sensation intact. MEDICAL DECISION MAKING: Patient is a 76-year-old female who presents ER for the above-stated complaint. IV was established blood work was obtained. Labs show no significant leukocytosis. Mild anemia 10.3 which consistent with previous. VBG with a CO2 of 76 which was performed just after the patient was placed on oxygen as she had been off oxygen for the stay in the waiting room in the ride in. BMP with a creatinine 4.1 following dialysis. Mild transaminitis with an AST of 290 and ALT of 140. T bili of 4. Troponin was elevated at 47. This is a dialysis patient although the EKG does have new T wave inversions. She has no belly pain. CT head was negative. Case was discussed with hospitalist will be admitted for further work-up. Please see their notes and additional imaging. W e will hold on any anticoagulation as patient has no chest pain or shortness of breath with her EKG changes. Triage Nursing notes reviewed. Limited review of prior medical records performed Vital Signs: reviewed and remarkable for hypoxic on RA but appropriate on her prescribed oxygen Differential diagnosis: Differential diagnoses includes but is not limited to pneumonia, bronchitis, COPD/Asthma exacerbation, pneumothorax, pulmonary embolism, congestive heart failure, acute coronary syndrome ER treatment provided: See below Diagnostics interpreted by me: ECG: Sinus rhythm rate of 65 First-degree AV block Left axis Septal Q waves T wave inversion V4 through V6 QTC 501 T wave inversion in V3 through V6 is new from previous. Cardiac Monitoring: An order was placed for continuous cardiac monitoring. The monitor shows a rate of 70 with sinus rhythm. Laboratory studies: As stated above and show below. Imaging studies: CT head was negative Portable AP upright 1 view of the chest was unremarkable Consultation(s): none Procedures: none Critical Care: None Past Med/Surg History Medical History Acute hyperkalemia Anemia Anxiety Arthritis Coronary artery disease Depression Depression with anxiety Diabetes mellitus Diabetic retinopathy Dyslipidemia End-stage renal disease on hemodialysis GERD without esophagitis Hernia, hiatal History of thrombophlebitis Hypertension Hypothyroidism Insomnia Laceration of left lower extremity Macular puckering, bilateral Obstructive sleep apnea Panniculitis Paresthesias Polyarthritis Tubular adenoma of colon Type 2 diabetes mellitus with diabetic neuropathy Vitamin D deficiency Surgical History H/O: hysterectomy History of bladder surgery History of cataract surgery History of nasal septoplasty History of tonsillectomy S/P arteriovenous (AV) fistula creation S/P hysterectomy S/P repair of paraesophageal hernia S/P rotator cuff repair Family History Mother Leukemia Cerebral aneurysm Hypertension Anxiety Diabetes Cancer Heart disease Grandmother Hypertension Father Osteoarthritis COPD (chronic obstructive pulmonary disease) Diabetes Hearing loss Sister Diabetes Myocardial infarction COPD (chronic obstructive pulmonary disease) Hypertension Brother Myocardial infarction Diabetes Cancer Stomach cancer Other No family history of bleeding disorder Denies family history of Ovarian cancer Prostate cancer Breast cancer Colorectal cancer Stroke Asthma Social History Smoking Status: Never smoker Second Hand Exposure: No; Hx Alcohol Use: No Hx Substance Use: No Preferred Language: Sami Communication Ability: Effective Visual Impairment: No Limitations Hearing Ability: Normal 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 Beliefs That Will Affect Care: None marital status: Current Living Situation: Spouse current occupational status: retired How many Children do You have: 1 Feels Safe at Home: Yes Dental Care, Regularly: No Physical Activity Frequency: 1-2 Times per Week Seatbelt Use: always Assistive Devices: Bedside Commode, BiPap, Cane, Oxygen - Continuous, Walker and Wheelchair Allergies Allergies Allergy/AdvReac Type Severity Reaction Status Date / Time lisinopril AdvReac Intermediate cough Verified 04/28/22 15:15 Home Meds Home Medications Medication Instructions Recorded Confirmed acetaminophen 500 mg tablet 1,000 mg PO Q6H PRN Pain 11/07/19 04/28/22 (Tylenol Extra Strength) vit B complx, C-iron 8 mg-folic 1 tab PO QDL 02/27/20 04/28/22 acid 800 mcg-D3 1,000 unit-zinc tablet (ProRenal) calcium acetate 667 mg tablet 667 mg PO UD 12/17/20 04/28/22 bumetanide 2 mg tablet 4 mg PO BID 10/14/21 04/28/22 lactulose 10 gram/15 mL oral 15 ml PO DAILY PRN Constipation 01/16/22 04/28/22 solution sodium zirconium cyclosilicate 5 5 g PO 4XWK 03/25/22 04/28/22 gram oral powder packet (Lokelma) primidone 50 mg tablet 100 mg PO TID 03/30/22 04/28/22 Previous Rx's Medication Instructions Recorded Oxygen Home #1 ea 02/29/20 blood-glucose meter (OneTouch #1 ea 11/27/20 Verio Meter) lancets 33 gauge (OneTouch Delica #100 ea 11/27/20 Lancets) ibuprofen 600 mg tablet 600 mg PO BID #60 tabs 01/03/21 ondansetron 8 mg disintegrating 8 mg PO Q8H PRN Nausea #90 tabs 11/27/21 tablet pantoprazole 40 mg tablet,delayed 40 mg PO BID 90 days #180 tabs 01/28/22 release tramadol 50 mg tablet 50 mg PO BID #60 tabs 01/29/22 lorazepam 0.5 mg tablet 0.5 mg PO BID PRN anxiety; 01/30/22 difficulty swallowing #30 tabs blood sugar diagnostic (OneTouch #300 ea 03/18/22 Verio test strips) carvedilol 12.5 mg tablet (Coreg) 12.5 mg PO BID #180 tabs 03/18/22 cholecalciferol (vitamin D3) 50 50 mcg PO DAILY #90 caps 03/18/22 mcg (2,000 unit) capsule gabapentin 300 mg capsule 300 mg PO BID #180 caps 03/18/22 atorvastatin 20 mg tablet 20 mg PO HS #90 tabs 03/19/22 levothyroxine 100 mcg tablet 100 mcg PO QPM #90 tabs 03/25/22 venlafaxine 150 mg tablet,extended 150 mg PO DAILY #90 tabs 04/08/22 release 24 hr Results & Data (ED) Vital Signs Vital Signs - 24 hr 04/28/22 10:23 04/28/22 10:48 04/28/22 11:10 Temperature 36.4 C L Temperature Source Temporal Artery Scan Pulse Rate 66 60 Pulse Rate [Apical] 62 Respiratory Rate 18 19 Respiratory Effort / Characteristics Short of Breath Blood Pressure 127/70 Blood Pressure [Left Arm] 126/88 Blood Pressure Mean 89 Blood Pressure Mean [Left Arm] 100 Blood Pressure Position Sitting Pulse Oximetry 74 L 93 94 Oxygen Delivery Method Room Air Nasal Cannula Nasal Cannula Oxygen Flow Rate 3 3 Sepsis Recent Fever Within 48 Hours No Sepsis New/Unexplained Change in Mental Status No Sepsis Action Taken by Nursing No Action Required 04/28/22 14:15 Temperature Temperature Source Pulse Rate Pulse Rate [Apical] 60 Respiratory Rate 18 Respiratory Effort / Characteristics Blood Pressure Blood Pressure [Left Arm] 191/101 H Blood Pressure Mean Blood Pressure Mean [Left Arm] 131 Blood Pressure Position Pulse Oximetry 100 Oxygen Delivery Method Nasal Cannula Oxygen Flow Rate 3 Sepsis Recent Fever Within 48 Hours Sepsis New/Unexplained Change in Mental Status Sepsis Action Taken by Nursing Laboratory Data Result diagrams: 04/28/22 11:10 04/28/22 12:11 Lab Results 04/28/22 04/28/22 04/28/22 Range/Units 10:45 10:45 11:10 WBC 6.03 (4.8-10.8) K/ul RBC 3.19 L (3.93-5.22) M/uL Hgb 10.3 L (12.0-16.0) g/dl Hct 32.8 L (34.1-44.9) % MCV 102.8 H (80.0-100.0) fL MCH 32.3 (25.0-34.0) pg MCHC 31.4 L (32.0-36.0) g/dL RDW Std Deviation 52.1 H (36.4-46.3) fL RDW Coeff of Jared 13.7 (11.5-14.5) % Plt Count 135 (130-400) K/uL MPV 10.6 (9.4-12.3) fL Immature Gran % (Auto) 0.3 % Neut % (Auto) 68.2 % Lymph % (Auto) 18.6 % Plumas % (Auto) 10.6 % Eos % (Auto) 1.3 % Baso % (Auto) 1.0 % Neut # (Auto) 4.11 (1.4-6.5) K/uL Lymph # (Auto) 1.12 L (1.2-3.4) K/uL [place]umas # (Auto) 0.64 (0.24-0.82) K/uL Eos # (Auto) 0.08 (0-0.50) K/uL Baso # (Auto) 0.06 (0-0.2) K/uL Immature Gran # (Auto) 0.02 (0.00-0.02) K/uL Platelet Estimate Normal (Normal) Polychromasia 1+ Stomatocytes 2+ VBG pH (7.36-7.41) VBG pCO2 (38-50) mmHg VBG pO2 mmHg VBG HCO3 mmol/L VBG O2 Saturation % VBG Base Excess mEq/L Sodium 136 (136-145) mmol/L Potassium TNP Chloride 95 L (98-107) mmol/L Carbon Dioxide 32 (21-32) mmol/L Anion Gap 9 (3-11) BUN 22 (6-23) mg/dl Creatinine 4.13 H (0.6-1.2) mg/dl Est Cr Clr Drug Dosing 11.7 ml/min Est GFR ( Amer) 11.4 ml/min Est GFR (Non-Af Amer) 9.8 ml/min BUN/Creatinine Ratio 5.3 L (10-20) Glucose 71 (70-99(Fasting)) mg/dl Calcium 8.4 L (8.5-10.1) mg/dl Total Bilirubin 0.4 (0.2-1.0) mg/dl AST TNP ALT 124 H (7-52) U/L Alkaline Phosphatase 116 H (34-104) U/L Troponin I High Sens (0-14) pg/ml Total Protein 7.4 (6.0-8.3) gm/dl Albumin 3.9 (3.4-5.0) gm/dl Globulin 3.5 (2.5-4.0) gm/dl Albumin/Globulin Ratio 1.1 (0.9-2) TSH 2.477 (0.300-4.500) uIu/ml SARS-CoV-2, RNA, NAAT (NEGATIVE) 04/28/22 04/28/22 04/28/22 Range/Units 12:11 12:11 12:11 WBC (4.8-10.8) K/ul RBC (3.93-5.22) M/uL Hgb (12.0-16.0) g/dl Hct (34.1-44.9) % MCV (80.0-100.0) fL MCH (25.0-34.0) pg MCHC (32.0-36.0) g/dL RDW Std Deviation (36.4-46.3) fL RDW Coeff of Jared (11.5-14.5) % Plt Count (130-400) K/uL MPV (9.4-12.3) fL Immature Gran % (Auto) % Neut % (Auto) % Lymph % (Auto) % Plumas % (Auto) % Eos % (Auto) % Baso % (Auto) % Neut # (Auto) (1.4-6.5) K/uL Lymph # (Auto) (1.2-3.4) K/uL Plumas # (Auto) (0.24-0.82) K/uL Eos # (Auto) (0-0.50) K/uL Baso # (Auto) (0-0.2) K/uL Immature Gran # (Auto) (0.00-0.02) K/uL Platelet Estimate (Normal) Polychromasia Stomatocytes VBG pH 7.34 L (7.36-7.41) VBG pCO2 76 H (38-50) mmHg VBG pO2 21 mmHg VBG HCO3 41 mmol/L VBG O2 Saturation < 60.0 % VBG Base Excess 11.8 mEq/L Sodium (136-145) mmol/L Potassium 4.4 Chloride (98-107) mmol/L Carbon Dioxide (21-32) mmol/L Anion Gap (3-11) BUN (6-23) mg/dl Creatinine (0.6-1.2) mg/dl Est Cr Clr Drug Dosing ml/min Est GFR ( Amer) ml/min Est GFR (Non-Af Amer) ml/min BUN/Creatinine Ratio (10-20) Glucose (70-99(Fasting)) mg/dl Calcium (8.5-10.1) mg/dl Total Bilirubin (0.2-1.0) mg/dl AST 290 H ALT (7-52) U/L Alkaline Phosphatase (34-104) U/L Troponin I High Sens 47.9 H (0-14) pg/ml Total Protein (6.0-8.3) gm/dl Albumin (3.4-5.0) gm/dl Globulin (2.5-4.0) gm/dl Albumin/Globulin Ratio (0.9-2) TSH (0.300-4.500) uIu/ml SARS-CoV-2, RNA, NAAT (NEGATIVE) 04/28/22 Range/Units 14:11 WBC (4.8-10.8) K/ul RBC (3.93-5.22) M/uL Hgb (12.0-16.0) g/dl Hct (34.1-44.9) % MCV (80.0-100.0) fL MCH (25.0-34.0) pg MCHC (32.0-36.0) g/dL RDW Std Deviation (36.4-46.3) fL RDW Coeff of Jared (11.5-14.5) % Plt Count (130-400) K/uL MPV (9.4-12.3) fL Immature Gran % (Auto) % Neut % (Auto) % Lymph % (Auto) % [place] % (Auto) % Eos % (Auto) % Baso % (Auto) % Neut # (Auto) (1.4-6.5) K/uL Lymph # (Auto) (1.2-3.4) K/uL [place] # (Auto) (0.24-0.82) K/uL Eos # (Auto) (0-0.50) K/uL Baso # (Auto) (0-0.2) K/uL Immature Gran # (Auto) (0.00-0.02) K/uL Platelet Estimate (Normal) Polychromasia Stomatocytes VBG pH (7.36-7.41) VBG pCO2 (38-50) mmHg VBG pO2 mmHg VBG HCO3 mmol/L VBG O2 Saturation % VBG Base Excess mEq/L Sodium (136-145) mmol/L Potassium Chloride (98-107) mmol/L Carbon Dioxide (21-32) mmol/L Anion Gap (3-11) BUN (6-23) mg/dl Creatinine (0.6-1.2) mg/dl Est Cr Clr Drug Dosing ml/min Est GFR ( Amer) ml/min Est GFR (Non-Af Amer) ml/min BUN/Creatinine Ratio (10-20) Glucose (70-99(Fasting)) mg/dl Calcium (8.5-10.1) mg/dl Total Bilirubin (0.2-1.0) mg/dl AST ALT (7-52) U/L Alkaline Phosphatase (34-104) U/L Troponin I High Sens (0-14) pg/ml Total Protein (6.0-8.3) gm/dl Albumin (3.4-5.0) gm/dl Globulin (2.5-4.0) gm/dl Albumin/Globulin Ratio (0.9-2) TSH (0.300-4.500) uIu/ml SARS-CoV-2, RNA, NAAT NEGATIVE (NEGATIVE) Imaging Data Radiologist's Impression: Chest X-Ray 04/28/22 10:40 XR chest 1V portable HISTORY: weakness COMPARISON: Chest 12/23/2021. FINDINGS: No focal lung consolidations to suggest a pneumonia. No evidence for pulmonary edema. The cardiac silhouette remains mildly enlarged. There are surgical clips within the epigastric region. Mitral annulus and aortic knob calcifications persist. No pneumothorax. No pleural effusions. IMPRESSION: No significant change compared to the prior study. No acute process. ACT 112: Negative or not required by law. Electronically signed by: Carter Westfall M.D. 04/28/2022 12:[address] 04/28/22 13:43 CT SCAN OF THE BRAIN WITHOUT IV CONTRAST CLINICAL HISTORY: Headache. COMPARISON STUDY: CT of the brain dated 03/20/2022. TECHNIQUE: Unenhanced axial CT scan of the brain is performed from the vertex to the skull base. A dose lowering technique was utilized adhering to the principles of ALARA. CT DOSE: 720.23 mGy.cm FINDINGS: Brain parenchyma: There is age-related involutional change noting moderate subcortical and periventricular microangiopathic disease. There is no hemorrhage, mass effect, or evidence of acute territorial ischemia by CT criteria. Carter-white matter differentiation is preserved. No extra-axial fluid collection is seen. Ventricles, sulci, cisterns: Prominent secondary to involutional change. Intracranial vasculature: There is atherosclerotic calcification of the cavernous carotid and vertebral arteries. Calvarium: Unremarkable. Sinuses and mastoids: The visualized paranasal sinuses are clear. The mastoid air cells are well pneumatized. Orbits: The bony orbits are grossly intact. There are bilateral ocular lens implants. IMPRESSION: There is no hemorrhage, mass effect, or evidence of acute territorial ischemia by CT criteria. ACT 112: Negative or not required by law. Electronically signed by: Derek Low M.D. 04/28/2022 2:39 PM Discharge Plan Visit Data Chief Complaint: Leg Weakness, Bilateral Stated Complaint: TROUBLE WALKING ED Provider: Carlos Singh Discharge Problem: Weakness, Hypertension, Acute electrocardiogram changes Forms Stand Alone Forms: [facility] [employer] Prescriptions Prescriptions: No Action (DME) blood-glucose meter [OneTouch Verio Meter] [facility] [place] See Rx Instructions .ROUTE .MEDSUPPLY Qty: 1 0RF Rx Instructions: [place]11.[place] [place] lancets [OneTouch Delica Lancets] 33 [place] [facility] [place] See Rx Instructions .ROUTE .MEDSUPPLY Qty: 100 3RF Rx Instructions: use to test twice daily ibuprofen 600 mg tablet 600 mg PO BID Qty: 60 2RF ondansetron 8 mg tablet,disintegrating 8 mg PO Q8H PRN (Reason: Nausea) Qty: 90 5RF pantoprazole 40 mg tablet,delayed release (DR/EC) 40 mg PO BID 90 Days Qty: 180 3RF tramadol 50 mg tablet 50 mg PO BID Qty: 60 2RF lorazepam 0.5 mg tablet 0.5 mg PO BID PRN (Reason: anxiety; difficulty swallowing) Qty: 30 0RF atorvastatin 20 mg tablet 20 mg PO HS Qty: 90 3RF Hold Instructions: muscle pain levothyroxine 100 mcg tablet 100 mcg PO QPM Qty: 90 3RF Lokelma 5 gram powder in packet 5 g PO 4XWK Rx Instructions: SunMonWedFri. Ordered daily pt only takes 4 days a week due to diarrhea. venlafaxine 150 mg tablet extended release 24hr 150 mg PO DAILY Qty: 90 1RF bumetanide 2 mg tablet 4 mg PO BID Rx Instructions: [place] [place] OneTouch Verio test strips Strip See Rx Instructions .ROUTE .MEDSUPPLY Qty: 300 3RF Rx Instructions: test twice daily E11.9 carvedilol [Coreg] 12.5 mg tablet 12.5 mg PO BID Qty: 180 3RF cholecalciferol (vitamin D3) 50 mcg (2,000 unit) capsule 50 mcg PO DAILY Qty: 90 3RF gabapentin 300 mg capsule 300 mg PO BID Qty: 180 3RF acetaminophen [Tylenol Extra Strength] 500 mg Tablet 1,000 mg PO Q6H PRN (Reason: Pain) ProRenal 8 mg iron-800 mcg-1,000 unit tablet 1 tab PO QDL (DME) Oxygen Home Liters Per Minute See Rx Instructions .ROUTE .MEDSUPPLY Qty: 1 0RF Rx Instructions: 3 liters continuously primidone 50 mg tablet 100 mg PO TID calcium acetate 667 mg Tablet 667 mg PO UD Rx Instructions: 1 cap with every meal and 1 cap with snacks lactulose 10 gram/15 mL solution 15 ml PO DAILY PRN (Reason: Constipation) Referrals Referrals: ProJulito MD [Primary Care Provider] -
--- NOTE | 2022-04-28 11:28 | Electrocardiogram Report ---
Test Reason : Blood Pressure : / mmHG Vent. Rate : 065 BPM Atrial Rate : 065 BPM P-R Int : 216 ms QRS Dur : 098 ms QT Int : 482 ms P-R-T Axes : 071 -58 211 degrees QTc Int : 501 ms Sinus rhythm with 1st degree A-V block Left axis deviation Incomplete right bundle branch block Prolonged QT Abnormal ECG When compared with ECG of 16-JAN-2022 23:29, T wave inversion more evident in Inferior leads T wave inversion now evident in Anterolateral leads Confirmed by Davon William ([id number]) on 04/28/2022 11:28:14 AM Referred By: Confirmed By:Ravi William
[2022-04-28 12:01] LABS: Alanine Aminotransferase 124 U/L (7-52); Albumin Globulin Ratio 1.1 (0.9-2); Albumin Level 3.9 gm/dl (3.4-5.0); Alkaline Phosphatase 116 U/L (34-104); Anion Gap 9 (3-11); BUN Creatinine Ratio 5.3 (10-20); Bilirubin,Total 0.4 mg/dl (0.2-1.0); Blood Urea Nitrogen 22 mg/dl (6-23); Calcium 8.4 mg/dl (8.5-10.1); Carbon Dioxide 32 mmol/L (21-32); Chloride 95 mmol/L (98-107); Creatinine Clr Calc Pharmacy 11.7 ml/min; Est GFR (African American) 11.4 ml/min; Est GFR (Non-African American) 9.8 ml/min; Globulin 3.5 gm/dl (2.5-4.0); Glucose 71 mg/dl (70-99(Fasting)); Sodium 136 mmol/L (136-145); Total Protein 7.4 gm/dl (6.0-8.3)
[2022-04-28 12:07] LABS: Hematocrit (blood only) 32.8 % (34.1-44.9); Hemoglobin 10.3 g/dl (12.0-16.0); Mean Corpuscular Hemoglobin 32.3 pg (25.0-34.0); Mean Corpuscular Hgb Conc 31.4 g/dL (32.0-36.0); Mean Corpuscular Volume 102.8 fL (80.0-100.0); Mean Platelet Volume 10.6 fL (9.4-12.3); Platelet Count 135 K/uL (130-400); RDW Coefficient of Variation 13.7 % (11.5-14.5); RDW Standard Deviation 52.1 fL (36.4-46.3); Red Blood Count 3.19 M/uL (3.93-5.22); White Blood Count 6.03 K/ul (4.8-10.8)
--- NOTE | 2022-04-28 12:22 | XRay Report ---
XR chest 1V portable HISTORY: weakness COMPARISON: Chest 12/23/2021. FINDINGS: No focal lung consolidations to suggest a pneumonia. No evidence for pulmonary edema. The c ardiac silhouette remains mildly enlarged. There are surgical clips within the epigastric region. Aleksandar ral annulus and aortic knob calcifications persist. No pneumothorax. No pleural effusions. IMPRESSION: No significant change compared to the prior study. No acute process. ACT 112: Negative or not required by law. Electronically signed by: Carter Westflal M.D. 04/28/2022 12:21 PM
[2022-04-28 12:39] LABS: Basophils # (auto) 0.06 K/uL (0-0.2); Eosinophils # (auto) 0.08 K/uL (0-0.50); Eosinophils % (auto) 1.3 %; Immature Granulocytes # (auto) 0.02 K/uL (0.00-0.02); Immature Granulocytes % (auto) 0.3 %; Lymphocytes # (auto) 1.12 K/uL (1.2-3.4); Lymphocytes % (auto) 18.6 %; Monocytes # (auto) 0.64 K/uL (0.24-0.82); Monocytes % (auto) 10.6 %; Neutrophils # (auto) 4.11 K/uL (1.4-6.5); Neutrophils % (auto) 68.2 %; Platelet Estimate Normal (Normal); Polychromasia 1+; Stomatocytes 2+
[2022-04-28 12:43] LABS: Base Excess VBG 11.8 mEq/L; HCO3 VBG 41 mmol/L; Oxygen Saturation VBG < 60.0 %; PCO2 VBG 76 mmHg (38-50); PO2 VBG 21 mmHg; pH VBG 7.34 (7.36-7.41)
[2022-04-28 13:20] LABS: Potassium 4.4 mmol/L (3.5-5.1)
--- NOTE | 2022-04-28 14:31 | History & Physical Report ---
Date of Service April 28, 2022 Assessment & Plan (1) Weakness: Plan: -Admit to med/tele -Patient is currently afebrile, hemodynamically stable, and stable on her baseline 3L NC -Per history from the patient and her her generalized weakness has been chronic and progressive over the past year, she has not had an acute change. Unfortunately she is at the point where she is no longer able to function at home, even with the help of her . She and her verbalized to be that she wishes to be placed in a shelter for better care -No signs of infection, CT head negative for acute change, ammonia negative, no other significant lab abnormalities to explain her chronic weakness at this time. Patient does appear to have a macrocytic, hypochromic anemia, does not appear to be taking B12, folic acid, or Iron. Will obtain initial anemia workup now. -Patient's dose of primidone had been decreased from 100 mg TID to 50mg in am, 150 mg in afternoon, and 50 mg HS due to increased fatigue with 100 mg TID dosing. Would consider touching base with Neurology if the rest of her workup is negative for possible additional dosing adjustments. -Will consult PT/OT to get recommendations for placement -Fall precautions ordered - (2) Transaminitis: Plan: -AST, ALT, and alk phos all elevated today, this appears new after looking back at previous liver function tests -Ammonia was negative -Unsure of the cause at this time, will obtain US of the liver to continue workup -Monitor liver function on AM CMP (3) Elevated troponin: Plan: -Initial high sensitivity troponin noted to be 47.9 with two hour repeat at 65.9 , t-wave inversion noted in the inferior and anterolateral leads but she also has an incomplete RBBB. Confirmed with patient after her repeat troponin that she is still without chest pain/pressure and SOb and she confirmed she has been without all of those symptoms. -Elevated troponin may be falsely elevated due to her ESRD on HD -Will continue monitoring troponin q6h x 3 draws overnight to ensure she reaches a plateau, monitor on tele, will notify night team regarding her troponin ove rnight (4) Chronic respiratory failure with hypoxia: Plan: -Continue baseline O2 at 3L NC, currently stable (5) Diabetes mellitus: Plan: -Does not use home regimen at this time -Was noted to be hypoglycemic in the 50's after admission -Will hold basal insulin for now with hypoglycemia and ESRD on HD -Continue with correction factor of 45 and carb ration of 16 -Monitor BSG ACHS for now (6) End-stage renal disease on hemodialysis: Plan: -Completed full session of HD today without complication -Electrolytes currently stable -Nephrology consult placed for HD while admitted, current schedule is TTS -Continue Vitd D, pro renal tabs, sodium zirconium, and calcium acetate (7) Anemia: Plan: -Noted to have a macrocytic, hypochromic anemia today -Will obtain anemia labs including ferritin, Iron, transferrin, TIBC, B12, and folic acid levels -Patient likely has some aspect of anemia of chronic kidney disease -Continue Vitamin D and pro renal tablet (8) Coronary artery disease: Plan: Not currently on aspirin -Continue atorvastatin (9) Hypothyroidism: Plan: -Continue levothyroxine (10) Vitamin D deficiency: Plan: -Continue Vit D (11) Dyslipidemia: Plan: -Continue statin (12) Depression with anxiety: Plan: -Continue ativan, venlafaxine, (13) Hypertension: Plan: -Was noted to be hypertensive on arrival to the ED with systolics in the 190's -Currently stable at 150/60 -Continue Bumex, carvedilol, Plan The patient was discussed with Dr. Mahajan at the time of the admission History of Present Illness Chief Complaint: Weakness, SOB Primary Care Provider: Julito Burt MD Shirley is a 76 year old female with a PMH significant for ESRD on HD TTS, Chronic respiratory failure with hypoxic on baseline 3L NC, DM II, Hypothyroidism, CAD, HFpEF (LVEF of 55-60% as of 02/27/2020), mod tricupid regurg, severe mitral annular calcification, moderate pulmonary HTN, TASH, hyperlipidemia, depression and anxiety, polymyalgia rheumatica, HTN, RSL, resting tremor, and memory changes who presented to the [facility] ED via EMS from home for progressive weakness over the past 3 days. The patient states that she went for Dialysis this morning and had a complete session, but she felt more weak after. In the ED the patient was found to be afebrile, hypertensive at 191/101, and stable on her 3L NC. Labs were remarkable for WBC WNL, stable Hgb and platelets, MCV of 102.8, VBG with pH of 7.34, pCO2 of 76 and pO2 of 21, cr of 4.13, stable sodium & potassium, calcium of 8.4, AG and bicarb WNL, total bili of 0.4 but AST of 290, ALT of 124, and alk phos of 116, TSH was WNL. Chest xray shows "No significant change compared to the prior study. No acute process.". ECG obtained in the ED shows new T-wave inversions noted in the inferior and anterolateral leads. CT of the head was negative for acute changes. At the time of the exam the patient was resting in bed in no acute distress with her /primary caregiver sitting bedside; history was obtained from both. She has had progressive weakness, memory loss, and decreased function over the past year. Over the past 3-4 weeks it has gotten even worse to the point that she was unable to stand/walk today. She was able to get a full session of HD this morning but states that she felt even worse after. She was lying on the couch and was unable to get off the couch and use her cane, normally she is able to ambulate with the use of her cane. Her states that she has not been eating or drinking well over the past few weeks, they again confirm that all of her complaints are chronic at this time. Of note, they confirm that her double vision has been present for the past year, she has also been having left LE swelling for the past year as well. She denies recent fevers, chills, chest pain, new SOB from baseline, abdominal pain, nausea, vomiting, diarrhea, dysuria, hematuria, and recent falls. She confirmed again that she was not havin g chest pain or abdominal pain at the time of my exam. I spoke to she and her regarding code status, she is a DNR/DNI. Christiano refer to Dr. Mahajan's attestation for any changes to the treatment plan. Allergies Allergy/AdvReac Type Severity Reaction Status Date / Time lisinopril AdvReac Intermediate cough Verified 04/28/22 15:15 Home Medications Medication Instructions Recorded Confirmed Type acetaminophen 500 mg tablet 1,000 mg PO Q6H PRN Pain 11/07/19 04/28/22 History (Tylenol Extra Strength) vit B complx, C-iron 8 mg-folic 1 tab PO QDL 02/27/20 04/28/22 History acid 800 mcg-D3 1,000 unit-zinc tablet (ProRenal) Oxygen Home #1 ea 02/29/20 04/08/22 Rx blood-glucose meter (OneTouch #1 ea 11/27/20 04/08/22 Rx Verio Meter) lancets 33 gauge (OneTouch Delica #100 ea 11/27/20 04/08/22 Rx Lancets) calcium acetate 667 mg tablet 667 mg PO UD 12/17/20 04/28/22 History ibuprofen 600 mg tablet 600 mg PO BID #60 tabs 01/03/21 04/28/22 Rx bumetanide 2 mg tablet 4 mg PO BID 10/14/21 04/28/22 History ondansetron 8 mg disintegrating 8 mg PO Q8H PRN Nausea #90 tabs 11/27/21 04/28/22 Rx tablet lactulose 10 gram/15 mL oral 15 ml PO DAILY PRN Constipation 01/16/22 04/28/22 History solution pantoprazole 40 mg tablet,delayed 40 mg PO BID 90 days #180 tabs 01/28/22 04/28/22 Rx release tramadol 50 mg tablet 50 mg PO BID #60 tabs 01/29/22 04/28/22 Rx lorazepam 0.5 mg tablet 0.5 mg PO BID PRN anxiety; 01/30/22 04/28/22 Rx difficulty swallowing #30 tabs blood sugar diagnostic (OneTouch #300 ea 03/18/22 04/08/22 Rx Verio test strips) carvedilol 12.5 mg tablet (Coreg) 12.5 mg PO BID #180 tabs 03/18/22 04/28/22 Rx cholecalciferol (vitamin D3) 50 50 mcg PO DAILY #90 caps 03/18/22 04/28/22 Rx mcg (2,000 unit) capsule gabapentin 300 mg capsule 300 mg PO BID #180 caps 03/18/22 04/28/22 Rx atorvastatin 20 mg tablet 20 mg PO HS #90 tabs 03/19/22 04/28/22 Rx levothyroxine 100 mcg tablet 100 mcg PO QPM #90 tabs 03/25/22 04/28/22 Rx sodium zirconium cyclosilicate 5 5 g PO 4XWK 03/25/22 04/28/22 History gram oral powder packet (Kathryn) primidone 50 mg tablet 100 mg PO TID 03/30/22 04/28/22 History venlafaxine 150 mg tablet,extended 150 mg PO DAILY #90 tabs 04/08/22 04/28/22 Rx release 24 hr Past Med/Surg History Medical History Acute hyperkalemia Anemia Anxiety Arthritis Coronary artery disease Depression Depression with anxiety Diabetes mellitus Diabetic retinopathy Dyslipidemia End-stage renal disease on hemodialysis GERD without esophagitis Hernia, hiatal History of thrombophlebitis Hypertension Hypothyroidism Insomnia Laceration of left lower extremity Macular puckering, bilateral Obstructive sleep apnea Panniculitis Paresthesias Polyarthritis Tubular adenoma of colon Type 2 diabetes mellitus with diabetic neuropathy Vitamin D deficiency Surgical History H/O: hysterectomy History of bladder surgery History of cataract surgery History of nasal septoplasty History of tonsillectomy S/P arteriovenous (AV) fistula creation S/P hysterectomy S/P repair of paraesophageal hernia S/P rotator cuff repair Family History Mother Leukemia Cerebral aneurysm Hypertension Anxiety Diabetes Cancer Heart disease Grandmother Hypertension Father Osteoarthritis COPD (chronic obstructive pulmonary disease) Diabetes Hearing loss Sister Diabetes Myocardial infarction COPD (chronic obstructive pulmonary disease) Hypertension Brother Myocardial infarction Diabetes Cancer Stomach cancer Other No family history of bleeding disorder Denies family history of Ovarian cancer Prostate cancer Breast cancer Colorectal cancer Stroke Asthma Social History Smoking Status: Never smoker Second Hand Exposure: No; Hx Alcohol Use: No Hx Substance Use: No Preferred Language: American Communication Ability: Effective Visual Impairment: No Limitations Hearing Ability: Normal 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 Beliefs That Will Affect Care: None marital status: Current Living Situation: Spouse current occupational status: retired How many Children do You have: 1 Feels Safe at Home: Yes Dental Care, Regularly: No Physical Activity Frequency: 1-2 Times per Week Seatbelt Use: always Assistive Devices: Bedside Commode, BiPap, Cane, Oxygen - Continuous, Walker and Wheelchair Review of Systems Review of Systems: Denies current fever, chills, headache, changes in vision, hearing, taste, and smell, chest pain, SOB, cough, abdominal pain, nausea, vomiting, diarrhea, hematemesis, melena, dysuria, hematuria, and recent falls. All systems have been reviewed and are otherwise negative. Physical Exam Physical Exam: Physical Exam: General: In no acute distress, stated age, chronically ill-appearing HEENT: Normocephalic, atraumatic, no scleral icterus, patient with right eyelid lower than left which is her baseline, left pupil is asymmetric from previous procedure, right pupil is round and reactive to light, Dry mucus membranes, trachea midline, no thyromegaly Chest/Pulm: No respiratory distress, symmetrical chest expansion, clear breath sounds throughout Cardiac: RRR, systolic murmur noted Abdomen: Negative for ascites and bruising, normoactive bowel sounds, soft, non-tender to palpation throughout Musculoskeletal: Symmetrical and without signs of acute trauma, upper and lower extremities with full ROM, no atrophy, spasticity, or flaccidity Extremities: Radial, dorsalis pedis, and posterior tibial pulses are intact and symmetrical, left lower extremity with chronic edema compared to right but no erythema or tenderness Skin: Warm, dry, no rashes , lesions, or scars noted Neuro: Alert and oriented to person, place, month, but not to year no focal defects, CN II-XII tested and intact, baseline tremor noted Psych: No acute distress, calm and cooperative during the exam Results & Data Results & Data ([facility]) Vital Signs (Past 12 Hours) Vital Signs Temp Pulse Pulse Resp BP BP Pulse Ox 04/28/22 14:15 60 18 191/101 H 100 04/28/22 11:10 60 94 04/28/22 10:48 62 19 126/88 93 04/28/22 10:23 36.4 C L 66 18 127/70 74 L O2 Del Method O2 Flow Rate 04/28/22 14:15 Nasal Cannula 3 04/28/22 11:10 Nasal Cannula 3 04/28/22 10:48 Nasal Cannula 3 04/28/22 10:23 Room Air Laboratory Results Abnormal lab results 04/28/22 04/28/22 04/28/22 Range/Units 10:45 11:10 12:11 RBC 3.19 L (3.93-5.22) M/uL Hgb 10.3 L (12.0-16.0) g/dl Hct 32.8 L (34.1-44.9) % MCV 102.8 H (80.0-100.0) fL MCHC 31.4 L (32.0-36.0) g/dL RDW Std Deviation 52.1 H (36.4-46.3) fL Lymph # (Auto) 1.12 L (1.2-3.4) K/uL VBG pH 7.34 L (7.36-7.41) VBG pCO2 76 H (38-50) mmHg Chloride 95 L (98-107) mmol/L Creatinine 4.13 H (0.6-1.2) mg/dl BUN/Creatinine Ratio 5.3 L (10-20) Calcium 8.4 L (8.5-10.1) mg/dl AST (13-39) U/L ALT 124 H (7-52) U/L Alkaline Phosphatase 116 H (34-104) U/L 04/28/22 Range/Units 12:11 RBC (3.93-5.22) M/uL Hgb (12.0-16.0) g/dl Hct (34.1-44.9) % MCV (80.0-100.0) fL MCHC (32.0-36.0) g/dL RDW Std Deviation (36.4-46.3) fL Lymph # (Auto) (1.2-3.4) K/uL VBG pH (7.36-7.41) VBG pCO2 (38-50) mmHg Chloride (98-107) mmol/L Creatinine (0.6-1.2) mg/dl BUN/Creatinine Ratio (10-20) Calcium (8.5-10.1) mg/dl AST 290 H (13-39) U/L ALT (7-52) U/L Alkaline Phosphatase (34-104) U/L Diagnostic Findings Chest X-Ray 04/28/22 10:40 XR chest 1V portable HISTORY: weakness COMPARISON: Chest 12/23/2021. FINDINGS: No focal lung consolidations to suggest a pneumonia. No evidence for pulmonary edema. The cardiac silhouette remains mildly enlarged. There are surgical clips within the epigastric region. Mitral annulus and aortic knob calcifications persist. No pneumothorax. No pleural effusions. IMPRESSION: No significant change compared to the prior study. No acute process. ACT 112: Negative or not required by law. Electronically signed by: Carter Westfall M.D. 04/28/2022 12:[address] 04/28/22 13:43 CT SCAN OF THE BRAIN WITHOUT IV CONTRAST CLINICAL HISTORY: Headache. COMPARISON STUDY: CT of the brain dated 03/20/2022. TECHNIQUE: Unenhanced axial CT scan of the brain is performed from the vertex to the skull base. A dose lowering technique was utilized adhering to the principles of ALARA. CT DOSE: 720.23 mGy.cm FINDINGS: Brain parenchyma: There is age-related involutional change noting moderate subcortical and periventricular microangiopathic disease. There is no hemorrhage, mass effect, or evidence of acute territorial ischemia by CT criteria. Carter-white matter differentiation is preserved. No extra-axial fluid collection is seen. Ventricles, sulci, cisterns: Prominent secondary to involutional change. Intracranial vasculature: There is atherosclerotic calcification of the cavernous carotid and vertebral arteries. Calvarium: Unremarkable. Sinuses and mastoids: The visualized paranasal sinuses are clear. The mastoid air cells are well pneumatized. Orbits: The bony orbits are grossly intact. There are bilateral ocular lens implants. IMPRESSION: There is no hemorrhage, mass effect, or evidence of acute territorial ischemia by CT criteria. ACT 112: Negative or not required by law. Electronically signed by: Derek Low M.D. 04/28/2022 2:39 PM ECG Additional Comments: Sinus rhythm with 1st degree A-V block Left axis deviation Incomplete right bundle branch block T wave abnormality, consider inferior ischemia T wave abnormality, consider anterolateral ischemia Prolonged QT Abnormal ECG When compared with ECG of 28-APR-2022 10:37, No significant change was found Code Status & VTE Plan Code Status DNR/DNI Supervising Physician Co-Signing Physician Notes Patient seen and examined, chart reviewed, case discussed with Hugo Garcia PA-C and I agree with the assessment and plan as above except as otherwise noted Labs and images reviewed 76-year-old female with a history of CAD, heart failure preserved ejection fraction EF, chronic respiratory failure on 3 L nasal cannula, ESRD, pulmonary hypertension, TASH, hyperlipidemia, PMR, depression/anxiety, tremor has had progressive weakness, memory loss, gradual decline in function for several weeks and is now unable to ambulate and perform form IADLs. This is worsened by hemodialysis where she has little to no energy. 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 Patient endorses fatigue, weakness, and double vision present for over a year. No acute change in vision. No cough. Patient denies chest pain at time of assessment, has not had exertional chest pain but is easily fatigued. With lower extremity edema, lungs are diminished, heart rate is regular, systolic murmur present. Agree with troponin trend above given T wave inversions and easy fatigue, will have cardiac eval in addition to PT/OT eval's recommendations and placement. Neurology consulted for dialysis. Agree with work-up/management above. PG Care Time/CCT Total # of Minutes Spent Total Time Spent with Patient: Total time spent is greater than 50% in coordination of care (as documented) at patient's floor/unit and/or counseling patient: [place] [address] Initial Inpt Care Lvl 2 Patient Type Established Medical Decision Making Moderate Complexity Diagnoses Weakness R53.1 Transaminitis R74.01 Elevated troponin R77.8 Chronic respiratory failure with hypoxia J96.11 Diabetes mellitus E11.22; N18.6; Z79.4; Z99.2 Chronic kidney disease stage: on chronic dialysis Diabetes mellitus complication detail: with chronic kidney disease Diabetes mellitus complication status: with kidney complications Diabetes mellitus machinist mate insulin use: with machinist mate use Diabetes mellitus type: type 2 End-stage renal disease on hemodialysis N18.6; Z99.2 Anemia D64.9 Coronary artery disease I25.10 Associated angina: without angina Coronary Disease-Associated Artery/Lesion type: [place] artery [place] vs. transplanted heart: [place] heart Hypothyroidism E03.9 Hypothyroidism type: unspecified Vitamin D deficiency E55.9 Dyslipidemia E78.5 Depression with anxiety F41.8 Hypertension I10 Hypertension type: unspecified (1) Diabetes mellitus Chronic kidney disease stage: on chronic dialysis Diabetes mellitus complication detail: with chronic kidney disease Diabetes mellitus complication status: with kidney complications Diabetes mellitus alf insulin use: with alf use Diabetes mellitus type: type 2 Qualified Code(s): E11.22 - Type 2 diabetes mellitus with diabetic chronic kidney disease; N18.6 - End stage renal disease; 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 transplanted heart: [place] heart Qualified Code(s): I25.10 - Atherosclerotic heart disease of [place] coronary artery without angina pectoris (3) Hypothyroidism Hypothyroidism type: unspecified Qualified Code(s): E03.9 - Hypothyroidism, unspecified (4) Hypertension Hypertension type: unspecified Qualified Code(s): I10 - Essential (primary) hypertension
--- NOTE | 2022-04-28 14:41 | CT Scan Report ---
CT SCAN OF THE BRAIN WITHOUT IV CONTRAST CLINICAL HISTORY: Headache. COMPARISON STUDY: CT of the brain dated 03/20/2022. TECHNIQUE: Unenhanced axial CT scan of the brain is performed from the vertex to the skull base. A do se lowering technique was utilized adhering to the principles of ALARA. CT DOSE: 720.23 mGy.cm FINDINGS: Brain parenchyma: There is age-related involutional change noting moderate subcortical and periventri cular microangiopathic disease. There is no hemorrhage, mass effect, or evidence of acute territorial ischemia by CT criteria. Carter-white matter differentiation is preserved. No extra-axial fluid collec tion is seen. Ventricles, sulci, cisterns: Prominent secondary to involutional change. Intracranial vasculature: There is atherosclerotic calcification of the cavernous carotid and vertebr al arteries. Calvarium: Unremarkable. Sinuses and mastoids: The visualized paranasal sinuses are clear. The mastoid air cells are well pneu matized. Orbits: The bony orbits are grossly intact. There are bilateral ocular lens implants. IMPRESSION: There is no hemorrhage, mass effect, or evidence of acute territorial ischemia by CT mlio jimenez. ACT 112: Negative or not required by law. Electronically signed by: Derek Low M.D. 04/28/2022 2:39 PM
[2022-04-28] MEDS ORDERED: GLUCOSE 40% GEL 15 GM TUBE PO PRN (14:45)
[2022-04-28] MEDS ORDERED: GLUCOSE 10 TAB/TUBE PO PRN (14:45)
[2022-04-28] MEDS ORDERED: GLUCAGON FOR INJ 1 MG VIAL SQ PRN (14:45)
[2022-04-28] MEDS ORDERED: DEXTROSE 50% 50 ML SYRINGE IV ONE (15:53)
[2022-04-28] MEDS: INSULIN ASPART PER UNIT SC SCH (16:01)
[2022-04-28] MEDS ORDERED: INSULIN ASPART PER UNIT SC SCH (16:43)
--- NOTE | 2022-04-28 16:45 | Ultrasound Report ---
US liver CLINICAL HISTORY: Elevated liver enzymes COMPARISON STUDY: CT of the abdomen and pelvis January 17, 2022. Right upper quadrant ultrasound Sept emb2019. FINDINGS: No hepatic lesions are identified. Liver contour is slightly lobulated. Caliber of the comm on bile duct is at upper limits of normal, measuring 7 mm. No gallstones are identified. No gallbladd er wall thickening. Pancreas is largely obscured. There is no right hydronephrosis. IMPRESSION: 1. No gallstones. Top normal caliber common bile duct. No definite biliary ductal dilatation. 2. Obscured pancreas. ACT 112: Negative or not required by law. Electronically signed by: Cyrus Serna M.D. 04/28/2022 4:43 PM
[2022-04-28 16:54] LABS: Iron 76 mcg/dl (35-150); Transferrin 137 mg/dl (200-360)
[2022-04-28 17:10] LABS: Vitamin B12 853 pg/ml (180-914)
[2022-04-28] MEDS ORDERED: LACTULOSE SYRUP 10 GM/15 ML BTL 960 ML PO PRN (17:11)
[2022-04-28] MEDS ORDERED: CALCIUM ACETATE 667 MG CAP/TAB PO PRN (17:16)
[2022-04-28 19:25] LABS: Ferritin > 7500.0 ng/ml (8-388)
--- NOTE | 2022-04-28 19:41 | Electrocardiogram Report ---
Test Reason : Blood Pressure : / mmHG Vent. Rate : 061 BPM Atrial Rate : 061 BPM P-R Int : 216 ms QRS Dur : 104 ms QT Int : 488 ms P-R-T Axes : 063 -63 196 degrees QTc Int : 491 ms Sinus rhythm with 1st degree A-V block Left axis deviation Incomplete right bundle branch block T wave abnormality, consider inferior ischemia T wave abnormality, consider anterolateral ischemia Prolonged QT Abnormal ECG When compared with ECG of 28-APR-2022 10:37, No significant change was found Confirmed by Davon William ([id number]) on 04/28/2022 7:40:47 PM Referred By: REFERRED SELF Confirmed By:Ravi William
[2022-04-28] MEDS ORDERED: LANTUS PER UNIT CHARGE SQ SCH (21:00)
[2022-04-28] MEDS: GABAPENTIN 300 MG CAP PO SCH (22:38)
[2022-04-28] MEDS: traMADol HCL 50 MG TABLET PO SCH (22:42)
[2022-04-29] MEDS: HEPARIN SOD 5,000 UNIT/0.5 ML VIAL SQ SCH ×4 (00:35→22:24)
[2022-04-29] MEDS: PANTOprazole 40 MG TAB PO SCH ×3 (00:38→20:49)
[2022-04-29] MEDS: BUMETANIDE 1 MG TAB PO SCH ×3 (00:39→17:03)
[2022-04-29] MEDS: carvediloL 12.5 MG TAB PO SCH ×3 (00:40→20:48)
[2022-04-29] MEDS: CALCIUM ACETATE 667 MG CAP/TAB PO SCH ×4 (00:41→17:03)
[2022-04-29] MEDS: INSULIN ASPART PER UNIT SC SCH ×5 (00:41→20:54)
[2022-04-29] MEDS: ATORVASTATIN 20 MG TAB PO SCH ×2 (00:41→20:49)
[2022-04-29] MEDS: LEVOTHYROXINE SODIUM 100 MCG TABLET PO SCH ×2 (00:42→20:51)
[2022-04-29] MEDS: PRIMIDONE 50 MG TAB PO SCH ×4 (00:42→20:50)
[2022-04-29] MEDS ORDERED: ACETAMINOPHEN 500 MG TAB PO ONE (01:05)
[2022-04-29] MEDS: CHOLECALCIFEROL 1,000 UNITS 25 MCG TAB PO SCH (07:54)
[2022-04-29] MEDS: VENLAFAXINE HCL XR 150 MG CAPXR PO SCH (07:55)
[2022-04-29] MEDS: traMADol HCL 50 MG TABLET PO SCH ×2 (07:56→20:54)
[2022-04-29] MEDS: CARBOHYDRATES FOR HYPOGLYCEMIA PO PRN ×2 (08:03→08:04)
[2022-04-29] MEDS: amLODIPine BESYLATE 5 MG TAB PO SCH (09:10)
[2022-04-29] MEDS: GABAPENTIN 300 MG CAP PO SCH ×2 (09:10→20:51)
[2022-04-29 10:12] LABS: Hematocrit (blood only) 30.8 % (34.1-44.9); Hemoglobin 9.6 g/dl (12.0-16.0); Mean Corpuscular Hemoglobin 32.7 pg (25.0-34.0); Mean Corpuscular Hgb Conc 31.2 g/dL (32.0-36.0); Mean Corpuscular Volume 104.8 fL (80.0-100.0); Mean Platelet Volume 10.3 fL (9.4-12.3); Platelet Count 101 K/uL (130-400); RDW Coefficient of Variation 13.5 % (11.5-14.5); RDW Standard Deviation 51.9 fL (36.4-46.3); Red Blood Count 2.94 M/uL (3.93-5.22)
[2022-04-29 10:46] LABS: Albumin Globulin Ratio 1.2 (0.9-2); Albumin Level 3.5 gm/dl (3.4-5.0); BUN Creatinine Ratio 5.5 (10-20); Bilirubin,Total 0.3 mg/dl (0.2-1.0); Calcium 8.6 mg/dl (8.5-10.1); Creatinine Clr Calc Pharmacy 7.8 ml/min; Magnesium 2.4 mg/dl (1.7-2.4); Potassium 5.1 mmol/L (3.5-5.1); Total Protein 6.5 gm/dl (6.0-8.3)
--- NOTE | 2022-04-29 10:59 | Nephrology Consultation ---
Date of Consultation April 29, 2022 Assessment & Plan (1) End-stage renal disease on hemodialysis: (2) Anemia: Plan ESRD on HD TTS. Volume status is acceptable and electrolytes reasonable. Lokelma has been ordered for potassium. Shirley is maintained on Bumex. Shirley completed HD yesterday without complications. Will plan next treatment for tomorrow per TTS schedule. Continue home antihypertensives including amlodipine. Medications are appropriately dosed for kidney function. May hold Phoslo if appetite remains poor. Consider dose reduction in gabapentin, if somnolence persists. Goals of care are being discussed. I will follow up when Shirley is more awake. In the interim, renal diet. Hgb >10. No RONNELL therapy required. History of Present Illness Reason for Consultation: ESRD on HD Requesting Physician: Talon Kong MD Attending Physician: Talon Kong MD History of Present Illness Shirley is a 76 year-old female with ESRD due to diabetic kidney disease.She has been maintained on HD at [facility] since 2015 (TTS 4hr 2K 2Ca 1Mg F- 180NR EDW 98kg).Medical history is significant for AODM, HTN, ASCVD, hypothyroidism, GERD, RLS, and XAVI/depression.She has chronic respiratory failure with hypoxic and has been maintained on 3L NC as well as HFpEF with chronic pulmonary hypertension. Shirley's recent medical history includes progressive debility and weakness. She presented to the ER yesterday via EMS with progressive weakness. Shirley completed her scheduled dialysis treatment yesterday without complications. However, it is noted that she has been weak and debilitated to the point of being unable to transfer herself or walk independently. The patient and her have reviewed goals of care and she has been admitted for evaluation and anticipated placement at a SNF. Shirley was very tired this morning and provided limited history for me. Appetite has been poor. She denies any acute pain or complaints. Recent history includes ER evaluation in February for UTI. Earlier this month, ER evaluation with a soft tissue contusion on her foot s/p fall at home. Her PCP increased venlafaxine earlier this month and decreased primidone, at that time there was discussion regarding possible palliative care consultation. Allergies Allergy/AdvReac Type Severity Reaction Status Date / Time lisinopril AdvReac Intermediate cough Verified 04/28/22 15:15 Home Medications Medication Instructions Recorded Confirmed Type acetaminophen 500 mg tablet 1,000 mg PO Q6H PRN Pain 11/07/19 04/28/22 History (Tylenol Extra Strength) vit B complx, C-iron 8 mg-folic 1 tab PO QDL 02/27/20 04/28/22 History acid 800 mcg-D3 1,000 unit-zinc tablet (ProRenal) Oxygen Home #1 ea 02/29/20 04/08/22 Rx blood-glucose meter (OneTouch #1 ea 11/27/20 04/08/22 Rx Verio Meter) lancets 33 gauge (OneTouch Delica #100 ea 11/27/20 04/08/22 Rx Lancets) calcium acetate 667 mg tablet 667 mg PO UD 12/17/20 04/28/22 History ibuprofen 600 mg tablet 600 mg PO BID #60 tabs 01/03/21 04/28/22 Rx bumetanide 2 mg tablet 4 mg PO BID 10/14/21 04/28/22 History ondansetron 8 mg disintegrating 8 mg PO Q8H PRN Nausea #90 tabs 11/27/21 04/28/22 Rx tablet lactulose 10 gram/15 mL oral 15 ml PO DAILY PRN Constipation 01/16/22 04/28/22 History solution pantoprazole 40 mg tablet,delayed 40 mg PO BID 90 days #180 tabs 01/28/22 04/28/22 Rx release tramadol 50 mg tablet 50 mg PO BID #60 tabs 01/29/22 04/28/22 Rx lorazepam 0.5 mg tablet 0.5 mg PO BID PRN anxiety; 01/30/22 04/28/22 Rx difficulty swallowing #30 tabs blood sugar diagnostic (OneTouch #300 ea 03/18/22 04/08/22 Rx Verio test strips) carvedilol 12.5 mg tablet (Coreg) 12.5 mg PO BID #180 tabs 03/18/22 04/28/22 Rx cholecalciferol (vitamin D3) 50 50 mcg PO DAILY #90 caps 03/18/22 04/28/22 Rx mcg (2,000 unit) capsule gabapentin 300 mg capsule 300 mg PO BID #180 caps 03/18/22 04/28/22 Rx atorvastatin 20 mg tablet 20 mg PO HS #90 tabs 03/19/22 04/28/22 Rx levothyroxine 100 mcg tablet 100 mcg PO QPM #90 tabs 03/25/22 04/28/22 Rx sodium zirconium cyclosilicate 5 5 g PO 4XWK 03/25/22 04/28/22 History gram oral powder packet (Lokelma) primidone 50 mg tablet 100 mg PO TID 03/30/22 04/28/22 History venlafaxine 150 mg tablet,extended 150 mg PO DAILY #90 tabs 04/08/22 04/28/22 Rx release 24 hr Patient History Medical History Acute hyperkalemia Anemia Anxiety Arthritis Coronary artery disease Depression Depression with anxiety Diabetes mellitus Diabetic retinopathy Dyslipidemia End-stage renal disease on hemodialysis GERD without esophagitis Hernia, hiatal History of thrombophlebitis Hypertension Hypothyroidism Insomnia Laceration of left lower extremity Macular puckering, bilateral Obstructive sleep apnea Panniculitis Paresthesias Polyarthritis Tubular adenoma of colon Type 2 diabetes mellitus with diabetic neuropathy Vitamin D deficiency Surgical History H/O: hysterectomy History of bladder surgery History of cataract surgery History of nasal septoplasty History of tonsillectomy S/P arteriovenous (AV) fistula creation S/P hysterectomy S/P repair of paraesophageal hernia S/P rotator cuff repair Family History Mother Leukemia Cerebral aneurysm Hypertension Anxiety Diabetes Cancer Heart disease Grandmother Hypertension Father Osteoarthritis COPD (chronic obstructive pulmonary disease) Diabetes Hearing loss Sister Diabetes Myocardial infarction COPD (chronic obstructive pulmonary disease) Hypertension Brother Myocardial infarction Diabetes Cancer Stomach cancer Other No family history of bleeding disorder Denies family history of Ovarian cancer Prostate cancer Breast cancer Colorectal cancer Stroke Asthma Social History Smoking Status: Never smoker Second Hand Exposure: No; Hx Alcohol Use: No Hx Substance Use: No Preferred Language: Russian Communication Ability: Effective Visual Impairment: No Limitations Hearing Ability: Normal Astro Technician Required: No Beliefs That Will Affect Care: None marital status: Current Living Situation: Spouse current occupational status: retired How many Children do You have: 1 Other Information That Helps Us Care for You: No Feels Safe at Home: Yes Safety Concerns: Feels Safe At This Time Dental Care, Regularly: No Physical Activity Frequency: 1-2 Times per Week Seatbelt Use: always Assistive Devices: Denture - Upper and Oxygen - Continuous Review of Systems Review of Systems: All systems reviewed & are unremarkable except as noted in HPI & below (limited due to somnolence) Physical Exam Constitutional: + frail appearing; no acute distress Eyes: + anicteric sclerae; no corneal abnormality ENMT: Mouth: + dry oral mucous membranes; no oral mucosal abnormality Neck: normal visual inspection and trachea midline Respiratory: normal respiratory effort Auscultation: lungs clear to auscultation bilaterally Cardiovascular: Rate/Rhythm: + bradycardic Heart Sounds: normal S1, normal S2 and + murmur Extremities: + pedal edema, + edema and + AV fistula Musculoskeletal: Extremities: no cyanosis and no clubbing Skin: normal turgor; no lesions Neurologic: Motor/Sensory: no tremor and no asterixis Psychiatric: Orientation: alert and oriented to person; + not oriented to place and + not oriented to time Results & Data ([facility]) Vital Signs (Past 12 Hours) Vital Signs Temp Pulse Pulse Pulse Resp BP Pulse Ox 04/29/22 09:16 04/29/22 07:50 36.5 C 63 18 185/89 H 96 04/29/22 07:21 61 04/29/22 04:00 36.4 C L 60 18 162/77 H 100 04/28/22 23:28 65 04/28/22 23:52 36.9 C 104 H 18 163/74 H 94 O2 Del Method O2 Flow Rate 04/29/22 09:16 Nasal Cannula 3 04/29/22 07:50 Nasal Cannula 3 04/29/22 07:21 04/29/22 04:00 Nasal Cannula 2 04/28/22 23:28 04/28/22 23:52 Nasal Cannula 3 Laboratory Results Laboratory Results - last 24 hr 04/28/22 04/28/22 04/28/22 10:45 10:45 11:10 WBC 6.03 RBC 3.19 L Hgb 10.3 L Hct 32.8 L MCV 102.8 H MCH 32.3 MCHC 31.4 L RDW Std Deviation 52.1 H RDW Coeff of Jared 13.7 Plt Count 135 MPV 10.6 Immature Gran % (Auto) 0.3 Neut % (Auto) 68.2 Lymph % (Auto) 18.6 [place] % (Auto) 10.6 Eos % (Auto) 1.3 Baso % (Auto) 1.0 Neut # (Auto) 4.11 Lymph # (Auto) 1.12 L [place] # (Auto) 0.64 Eos # (Auto) 0.08 Baso # (Auto) 0.06 Immature Gran # (Auto) 0.02 Platelet Estimate Normal Polychromasia 1+ Stomatocytes 2+ VBG pH VBG pCO2 VBG pO2 VBG HCO3 VBG O2 Saturation VBG Base Excess Sodium 136 Potassium TNP Chloride 95 L Carbon Dioxide 32 Anion Gap 9 BUN 22 Creatinine 4.13 H Est Cr Clr Drug Dosing 11.7 Est GFR ( Amer) 11.4 Est GFR (Non-Af Amer) 9.8 BUN/Creatinine Ratio 5.3 L Glucose 71 POC Glucose Calcium 8.4 L Magnesium Iron Unsaturated IBC Transferrin Ferritin Total Bilirubin 0.4 AST TNP ALT 124 H Alkaline Phosphatase 116 H Ammonia Troponin I High Sens Total Protein 7.4 Albumin 3.9 Globulin 3.5 Albumin/Globulin Ratio 1.1 Vitamin B12 Folate TSH 2.477 Nasal Screen MRSA (PCR) SARS-CoV-2, RNA, NAAT 04/28/22 04/28/22 04/28/22 11:10 11:10 12:11 WBC RBC Hgb Hct MCV MCH MCHC RDW Std Deviation RDW Coeff of Jared Plt Count MPV Immature Gran % (Auto) Neut % (Auto) Lymph % (Auto) [place] % (Auto) Eos % (Auto) Baso % (Auto) Neut # (Auto) Lymph # (Auto) [place] # (Auto) Eos # (Auto) Baso # (Auto) Immature Gran # (Auto) Platelet Estimate Polychromasia Stomatocytes VBG pH 7.34 L VBG pCO2 76 H VBG pO2 21 VBG HCO3 41 VBG O2 Saturation < 60.0 VBG Base Excess 11.8 Sodium Potassium Chloride Carbon Dioxide Anion Gap BUN Creatinine Est Cr Clr Drug Dosing Est GFR ( Amer) Est GFR (Non-Af Amer) BUN/Creatinine Ratio Glucose POC Glucose Calcium Magnesium Iron Unsaturated IBC Transferrin Ferritin Total Bilirubin AST ALT Alkaline Phosphatase Ammonia Troponin I High Sens Total Protein Albumin Globulin Albumin/Globulin Ratio Vitamin B12 853 Folate Cancelled > 22.30 TSH Nasal Screen MRSA (PCR) SARS-CoV-2, RNA, NAAT 04/28/22 04/28/22 04/28/22 12:11 12:11 14:11 WBC RBC Hgb Hct MCV MCH MCHC RDW Std Deviation RDW Coeff of Jared Plt Count MPV Immature Gran % (Auto) Neut % (Auto) Lymph % (Auto) [place] % (Auto) Eos % (Auto) Baso % (Auto) Neut # (Auto) Lymph # (Auto) [place] # (Auto) Eos # (Auto) Baso # (Auto) Immature Gran # (Auto) Platelet Estimate Polychromasia Stomatocytes VBG pH VBG pCO2 VBG pO2 VBG HCO3 VBG O2 Saturation VBG Base Excess Sodium Potassium 4.4 Chloride Carbon Dioxide Anion Gap BUN Creatinine Est Cr Clr Drug Dosing Est GFR ( Amer) Est GFR (Non-Af Amer) BUN/Creatinine Ratio Glucose POC Glucose Calcium Magnesium Iron Unsaturated IBC Transferrin Ferritin Total Bilirubin AST 290 H ALT Alkaline Phosphatase Ammonia Troponin I High Sens 47.9 H Total Protein Albumin Globulin Albumin/Globulin Ratio Vitamin B12 Folate TSH Nasal Screen MRSA (PCR) SARS-CoV-2, RNA, NAAT NEGATIVE 04/28/22 04/28/22 04/28/22 15:11 15:50 16:02 WBC RBC Hgb Hct MCV MCH MCHC RDW Std Deviation RDW Coeff of Jared Plt Count MPV Immature Gran % (Auto) Neut % (Auto) Lymph % (Auto) [place] % (Auto) Eos % (Auto) Baso % (Auto) Neut # (Auto) Lymph # (Auto) [place] # (Auto) Eos # (Auto) Baso # (Auto) Immature Gran # (Auto) Platelet Estimate Polychromasia Stomatocytes VBG pH VBG pCO2 VBG pO2 VBG HCO3 VBG O2 Saturation VBG Base Excess Sodium Potassium Chloride Carbon Dioxide Anion Gap BUN Creatinine Est Cr Clr Drug Dosing Est GFR ( Amer) Est GFR (Non-Af Amer) BUN/Creatinine Ratio Glucose POC Glucose 53 L* Calcium Magnesium Iron Unsaturated IBC Transferrin Ferritin Total Bilirubin AST ALT Alkaline Phosphatase Ammonia 20.0 Troponin I High Sens 65.9 H* D Total Protein Albumin Globulin Albumin/Globulin Ratio Vitamin B12 Folate TSH Nasal Screen MRSA (PCR) SARS-CoV-2, RNA, NAAT 04/28/22 04/28/22 04/28/22 16:02 16:02 16:36 WBC RBC Hgb Hct MCV MCH MCHC RDW Std Deviation RDW Coeff of Jared Plt Count MPV Immature Gran % (Auto) Neut % (Auto) Lymph % (Auto) [place] % (Auto) Eos % (Auto) Baso % (Auto) Neut # (Auto) Lymph # (Auto) [place] # (Auto) Eos # (Auto) Baso # (Auto) Immature Gran # (Auto) Platelet Estimate Polychromasia Stomatocytes VBG pH VBG pCO2 VBG pO2 VBG HCO3 VBG O2 Saturation VBG Base Excess Sodium Potassium Chloride Carbon Dioxide Anion Gap BUN Creatinine Est Cr Clr Drug Dosing Est GFR ( Amer) Est GFR (Non-Af Amer) BUN/Creatinine Ratio Glucose POC Glucose 122 H Calcium Magnesium Iron 76 Unsaturated IBC 102 L Transferrin 137 L Ferritin > 7500.0 H Total Bilirubin AST ALT Alkaline Phosphatase Ammonia Troponin I High Sens Total Protein Albumin Globulin Albumin/Globulin Ratio Vitamin B12 Folate TSH Nasal Screen MRSA (PCR) SARS-CoV-2, RNA, NAAT 04/28/22 04/28/22 04/28/22 19:51 20:01 23:30 WBC RBC Hgb Hct MCV MCH MCHC RDW Std Deviation RDW Coeff of Jared Plt Count MPV Immature Gran % (Auto) Neut % (Auto) Lymph % (Auto) [place] % (Auto) Eos % (Auto) Baso % (Auto) Neut # (Auto) Lymph # (Auto) [place] # (Auto) Eos # (Auto) Baso # (Auto) Immature Gran # (Auto) Platelet Estimate Polychromasia Stomatocytes VBG pH VBG pCO2 VBG pO2 VBG HCO3 VBG O2 Saturation VBG Base Excess Sodium Potassium Chloride Carbon Dioxide Anion Gap BUN Creatinine Est Cr Clr Drug Dosing Est GFR ( Amer) Est GFR (Non-Af Amer) BUN/Creatinine Ratio Glucose POC Glucose 87 103 H Calcium Magnesium Iron Unsaturated IBC Transferrin Ferritin Total Bilirubin AST ALT Alkaline Phosphatase Ammonia Troponin I High Sens 82.8 H* D Total Protein Albumin Globulin Albumin/Globulin Ratio Vitamin B12 Folate TSH Nasal Screen MRSA (PCR) SARS-CoV-2, RNA, NAAT 04/29/22 04/29/22 04/29/22 01:20 01:33 07:40 WBC RBC Hgb Hct MCV MCH MCHC RDW Std Deviation RDW Coeff of Jared Plt Count MPV Immature Gran % (Auto) Neut % (Auto) Lymph % (Auto) [place] % (Auto) Eos % (Auto) Baso % (Auto) Neut # (Auto) Lymph # (Auto) [place] # (Auto) Eos # (Auto) Baso # (Auto) Immature Gran # (Auto) Platelet Estimate Polychromasia Stomatocytes VBG pH VBG pCO2 VBG pO2 VBG HCO3 VBG O2 Saturation VBG Base Excess Sodium Potassium Chloride Carbon Dioxide Anion Gap BUN Creatinine Est Cr Clr Drug Dosing Est GFR ( Amer) Est GFR (Non-Af Amer) BUN/Creatinine Ratio Glucose POC Glucose 50 L* Calcium Magnesium Iron Unsaturated IBC Transferrin Ferritin Total Bilirubin AST ALT Alkaline Phosphatase Ammonia Troponin I High Sens 83.0 H* Total Protein Albumin Globulin Albumin/Globulin Ratio Vitamin B12 Folate TSH Nasal Screen MRSA (PCR) Negative SARS-CoV-2, RNA, NAAT 04/29/22 04/29/22 04/29/22 07:41 08:01 08:24 WBC RBC Hgb Hct MCV MCH MCHC RDW Std Deviation RDW Coeff of Jared Plt Count MPV Immature Gran % (Auto) Neut % (Auto) Lymph % (Auto) [place] % (Auto) Eos % (Auto) Baso % (Auto) Neut # (Auto) Lymph # (Auto) [place] # (Auto) Eos # (Auto) Baso # (Auto) Immature Gran # (Auto) Platelet Estimate Polychromasia Stomatocytes VBG pH VBG pCO2 VBG pO2 VBG HCO3 VBG O2 Saturation VBG Base Excess Sodium Potassium Chloride Carbon Dioxide Anion Gap BUN Creatinine Est Cr Clr Drug Dosing Est GFR ( Amer) Est GFR (Non-Af Amer) BUN/Creatinine Ratio Glucose POC Glucose 55 L* 66 L* 115 H Calcium Magnesium Iron Unsaturated IBC Transferrin Ferritin Total Bilirubin AST ALT Alkaline Phosphatase Ammonia Troponin I High Sens Total Protein Albumin Globulin Albumin/Globulin Ratio Vitamin B12 Folate TSH Nasal Screen MRSA (PCR) SARS-CoV-2, RNA, NAAT 04/29/22 04/29/22 09:32 09:32 WBC 4.60 L RBC 2.94 L Hgb 9.6 L Hct 30.8 L MCV 104.8 H MCH 32.7 MCHC 31.2 L RDW Std Deviation 51.9 H RDW Coeff of Jared 13.5 Plt Count 101 L MPV 10.3 Immature Gran % (Auto) Neut % (Auto) Lymph % (Auto) [place] % (Auto) Eos % (Auto) Baso % (Auto) Neut # (Auto) Lymph # (Auto) [place] # (Auto) Eos # (Auto) Baso # (Auto) Immature Gran # (Auto) Platelet Estimate Polychromasia Stomatocytes VBG pH VBG pCO2 VBG pO2 VBG HCO3 VBG O2 Saturation VBG Base Excess Sodium 135 L Potassium 5.1 Chloride 93 L Carbon Dioxide 37 H Anion Gap 5 BUN 34 H Creatinine 6.19 H* D Est Cr Clr Drug Dosing 7.8 Est GFR ( Amer) 7.0 Est GFR (Non-Af Amer) 6.0 BUN/Creatinine Ratio 5.5 L Glucose 123 H POC Glucose Calcium 8.6 Magnesium 2.4 Iron Unsaturated IBC Transferrin Ferritin Total Bilirubin 0.3 AST 320 H ALT 174 H Alkaline Phosphatase 104 Ammonia Troponin I High Sens Total Protein 6.5 Albumin 3.5 Globulin 3.0 Albumin/Globulin Ratio 1.2 Vitamin B12 Folate TSH Nasal Screen MRSA (PCR) SARS-CoV-2, RNA, NAAT PG Care Time/CCT Total # of Minutes Spent Total Time Spent with Patient: Total time spent is greater than 50% in coordination of care (as documented) at patient's floor/unit and/or counseling patient: Coding Level of Care Code 99332 Inpt Consult Level 4 Diagnoses End-stage renal disease on hemodialysis N18.6; Z99.2 Anemia D64.9
[2022-04-29] MEDS: POLYETHYLENE (MIRALAX) 17 GM PACK PO PRN (11:46)
[2022-04-29] MEDS: SODIUM ZIRCONIUM CYCLOSILICATE 10 GM PACKET PO SCH (11:46)
[2022-04-29] MEDS: NEPHROCAPS PO SCH (11:47)
--- NOTE | 2022-04-29 13:14 | Hospitalist Progress Note ---
Date of Service April 29, 2022 Assessment & Plan (1) Weakness: Plan: Essentially this is acute on chronic weakness. Chronic ambulatory dysfunction and recurrent falls chronic weakness noted on the 25 March note by PCP. Palliative care was considered in the last PCP visit about 4 weeks ago. The patient is having difficulty managing at home. This is basically a placement admission.. TSH normal 2.47 COVID-negative yesterday (2) Transaminitis: Plan: -AST, ALT, and alk phos all elevated and slightly higher today -Ammonia normal yesterday -Unsure of the cause at this time, ultrasound of the liver is normal including the bile duct. -Monitor for now (3) Hypertension: Plan: -Was noted to be hypertensive on arrival to the ED with systolics in the 190's BP has remained elevated added amlodipine this morning 04/29 -Continue Bumex, carvedilol, (4) Elevated troponin: Plan: -Initial high sensitivity troponin noted to be 47.9 with two hour repeat at 65.9 , t-wave inversion noted in the inferior and anterolateral leads-the latter is new. With elevated troponin and his EKG changesconsult cardiology TTE 02/27/2020 shows biatrial dilation, LVEF 55 to 60%, moderate pulmonary hypertension and moderate concentric LVH. dec 2018 cardiac catheterization report incomplete in the chart. Has not seen cardiology since 2017 per records we have H/po oericarditis noted in that Feb 2017 card note Patient chest pain-free Troponin 82.8 to 83 today History of CADcontinue carvedilol, Lipitor Add aspirin No symptoms of coronary ischemia -Continue telemetry (5) Chronic respiratory failure with hypoxia: Plan: -Continue baseline O2 at 3L NC, currently stable Seems to be a mixture of pulmonary hypertension and heart failure with preserved ejection fraction Per prior outpatient notes WELL Jan 2020 TTE (6) Diabetes mellitus: Plan: -Does not use home regimen at this time -Was noted to be hypoglycemic in the 50's after admission -Hypoglycemic today and had to be given orange juice. Not on any hypoglycemics/ insulin (7) End-stage renal disease on hemodialysis: Plan: -Completed full session of HD today without complication -Electrolytes currently stable -Nephrology consult placed for HD while admitted, current schedule is TTS -Continue Vitd D, pro renal tabs, sodium zirconium, and calcium acetate (8) Anemia: Plan: -Longstanding hypochromic [id number] level normal 04/28 at 853 folate normal at 22 -Will obtain anemia labs including ferritin, Iron, transferrin, -Patient likely has some aspect of anemia of chronic kidney disease -Continue Vitamin D and pro renal tablet (9) Coronary artery disease: Plan: Not currently on aspirin- start -Continue atorvastatin (10) Hypothyroidism: Plan: -Continue levothyroxine (11) Vitamin D deficiency: Plan: -Continue Vit D (12) Dyslipidemia: Plan: -Continue statin (13) Depression with anxiety: Plan: -Continue ativan, venlafaxine, (14) Hypertension: (15) Depression: Plan: Venlafaxine was increased to 150 twice daily earlier this month by PCP. Euthymic Also has diagnosis oFgeneralized anxiety disorder. Plan The patient was discussed with Dr. Mahajan at the time of the admission Admission and Anticipated Discharge Date Admission Date: April 28, 2022 Subjective seen at 05 h. " no energy for nothing" Denies nausea/vomiting/shortness of breath/chest pain/presyncope or dizziness. Denies syncope. Lives with her . Denies depressed mood. 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 Results & Data Results & Data ([facility]) Vital Signs (Past 12 Hours) Vital Signs Temp Pulse Pulse Resp BP Pulse Ox O2 Del Method 04/29/22 09:16 Nasal Cannula 04/29/22 07:50 36.5 C 63 18 185/89 H 96 Nasal Cannula 04/29/22 07:21 61 04/29/22 04:00 36.4 C L 60 18 162/77 H 100 Nasal Cannula O2 Flow Rate 04/29/22 09:16 3 04/29/22 07:50 3 04/29/22 07:21 04/29/22 04:00 2 Laboratory Results Abnormal lab results 04/28/22 04/28/22 04/28/22 Range/Units 12:11 15:50 16:02 WBC (4.8-10.8) K/ul RBC (3.93-5.22) M/uL Hgb (12.0-16.0) g/dl Hct (34.1-44.9) % MCV (80.0-100.0) fL MCHC (32.0-36.0) g/dL RDW Std Deviation (36.4-46.3) fL Plt Count (130-400) K/uL Sodium (136-145) mmol/L Chloride (98-107) mmol/L Carbon Dioxide (21-32) mmol/L BUN (6-23) mg/dl Creatinine (0.6-1.2) mg/dl BUN/Creatinine Ratio (10-20) Glucose (70-99(Fasting)) mg/dl POC Glucose 53 L* (70-99) mg/dl Unsaturated IBC (155-355) mcg/dl Transferrin (200-360) mg/dl Ferritin (8-388) ng/ml AST (13-39) U/L ALT (7-52) U/L Troponin I High Sens 47.9 H 65.9 H* D (0-14) pg/ml 04/28/22 04/28/22 04/28/22 Range/Units 16:02 16:02 16:36 WBC (4.8-10.8) K/ul RBC (3.93-5.22) M/uL Hgb (12.0-16.0) g/dl Hct (34.1-44.9) % MCV (80.0-100.0) fL MCHC (32.0-36.0) g/dL RDW Std Deviation (36.4-46.3) fL Plt Count (130-400) K/uL Sodium (136-145) mmol/L Chloride (98-107) mmol/L Carbon Dioxide (21-32) mmol/L BUN (6-23) mg/dl Creatinine (0.6-1.2) mg/dl BUN/Creatinine Ratio (10-20) Glucose (70-99(Fasting)) mg/dl POC Glucose 122 H (70-99) mg/dl Unsaturated IBC 102 L (155-355) mcg/dl Transferrin 137 L (200-360) mg/dl Ferritin > 7500.0 H (8-388) ng/ml AST (13-39) U/L ALT (7-52) U/L Troponin I High Sens (0-14) pg/ml 04/28/22 04/28/22 04/29/22 Range/Units 19:51 23:30 01:33 WBC (4.8-10.8) K/ul RBC (3.93-5.22) M/uL Hgb (12.0-16.0) g/dl Hct (34.1-44.9) % MCV (80.0-100.0) fL MCHC (32.0-36.0) g/dL RDW Std Deviation (36.4-46.3) fL Plt Count (130-400) K/uL Sodium (136-145) mmol/L Chloride (98-107) mmol/L Carbon Dioxide (21-32) mmol/L BUN (6-23) mg/dl Creatinine (0.6-1.2) mg/dl BUN/Creatinine Ratio (10-20) Glucose (70-99(Fasting)) mg/dl POC Glucose 103 H (70-99) mg/dl Unsaturated IBC (155-355) mcg/dl Transferrin (200-360) mg/dl Ferritin (8-388) ng/ml AST (13-39) U/L ALT (7-52) U/L Troponin I High Sens 82.8 H* D 83.0 H* (0-14) pg/ml 04/29/22 04/29/22 04/29/22 Range/Units 07:40 07:41 08:01 WBC (4.8-10.8) K/ul RBC (3.93-5.22) M/uL Hgb (12.0-16.0) g/dl Hct (34.1-44.9) % MCV (80.0-100.0) fL MCHC (32.0-36.0) g/dL RDW Std Deviation (36.4-46.3) fL Plt Count (130-400) K/uL Sodium (136-145) mmol/L Chloride (98-107) mmol/L Carbon Dioxide (21-32) mmol/L BUN (6-23) mg/dl Creatinine (0.6-1.2) mg/dl BUN/Creatinine Ratio (10-20) Glucose (70-99(Fasting)) mg/dl POC Glucose 50 L* 55 L* 66 L* (70-99) mg/dl Unsaturated IBC (155-355) mcg/dl Transferrin (200-360) mg/dl Ferritin (8-388) ng/ml AST (13-39) U/L ALT (7-52) U/L Troponin I High Sens (0-14) pg/ml 04/29/22 04/29/22 04/29/22 Range/Units 08:24 09:32 09:32 WBC 4.60 L (4.8-10.8) K/ul RBC 2.94 L (3.93-5.22) M/uL Hgb 9.6 L (12.0-16.0) g/dl Hct 30.8 L (34.1-44.9) % MCV 104.8 H (80.0-100.0) fL MCHC 31.2 L (32.0-36.0) g/dL RDW Std Deviation 51.9 H (36.4-46.3) fL Plt Count 101 L (130-400) K/uL Sodium 135 L (136-145) mmol/L Chloride 93 L (98-107) mmol/L Carbon Dioxide 37 H (21-32) mmol/L BUN 34 H (6-23) mg/dl Creatinine 6.19 H* D (0.6-1.2) mg/dl BUN/Creatinine Ratio 5.5 L (10-20) Glucose 123 H (70-99(Fasting)) mg/dl POC Glucose 115 H (70-99) mg/dl Unsaturated IBC (155-355) mcg/dl Transferrin (200-360) mg/dl Ferritin (8-388) ng/ml AST 320 H (13-39) U/L ALT 174 H (7-52) U/L Troponin I High Sens (0-14) pg/ml 04/29/22 Range/Units 11:33 WBC (4.8-10.8) K/ul RBC (3.93-5.22) M/uL Hgb (12.0-16.0) g/dl Hct (34.1-44.9) % MCV (80.0-100.0) fL MCHC (32.0-36.0) g/dL RDW Std Deviation (36.4-46.3) fL Plt Count (130-400) K/uL Sodium (136-145) mmol/L Chloride (98-107) mmol/L Carbon Dioxide (21-32) mmol/L BUN (6-23) mg/dl Creatinine (0.6-1.2) mg/dl BUN/Creatinine Ratio (10-20) Glucose (70-99(Fasting)) mg/dl POC Glucose 110 H (70-99) mg/dl Unsaturated IBC (155-355) mcg/dl Transferrin (200-360) mg/dl Ferritin (8-388) ng/ml AST (13-39) U/L ALT (7-52) U/L Troponin I High Sens (0-14) pg/ml PG Care Time/CCT Total # of Minutes Spent Total Time Spent with Patient: Total time spent is greater than 50% in coordination of care (as documented) at patient's floor/unit and/or counseling patient: Coding Level of Care Code 63094 Subseq Hosp Care Lvl 3 Diagnoses Weakness R53.1 Transaminitis R74.01 Hypertension I10 Elevated troponin R77.8 Chronic respiratory failure with hypoxia J96.11 Diabetes mellitus E11.22; N18.6; Z79.4; Z99.2 Chronic kidney disease stage: on chronic dialysis Diabetes mellitus complication detail: with chronic kidney disease Diabetes mellitus complication status: with kidney complications 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 transplanted heart: [place] heart Hypothyroidism E03.9 Hypothyroidism type: unspecified Vitamin D deficiency E55.9 Dyslipidemia E78.5 Depression with anxiety F41.8 Hypertension I10 Depression F32.A (1) Diabetes mellitus Chronic kidney disease stage: on chronic dialysis Diabetes mellitus complication detail: with chronic kidney disease Diabetes mellitus complication status: with kidney complications Diabetes mellitus usp insulin use: with termite control service representative use Diabetes mellitus type: type 2 Qualified Code(s): E11.22 - Type 2 diabetes mellitus with diabetic chronic kidney disease; N18.6 - End stage renal disease; Z79.4 - shelter (current) use of insulin; Z99.2 - Dependence on renal dialysis (2) Coronary artery disease Associated angina: without angina Coronary Disease-Associated Artery/Lesion type: [place] artery [place] vs. transplanted heart: [place] heart Qualified Code(s): I25.10 - Atherosclerotic heart disease of citizen [place] coronary artery without angina pectoris (3) Hypothyroidism Hypothyroidism type: unspecified Qualified Code(s): E03.9 - Hypothyroidism, unspecified
--- NOTE | 2022-04-29 17:15 | Cardiology Consultation ---
Date of Consultation April 29, 2022 Assessment & Plan (1) Elevated troponin: (2) Abnormal EKG: Plan 1. Elevated troponin: She does have mildly elevated high sensitivity troponin. Review of her record suggests that she often has elevated biomarkers. This includes an episode in 2019 when she underwent coronary angiography for elevated biomarkers and was discovered to have nonobstructive disease. She has not report symptoms of chest pain or coronary insufficiency. It is possible the some point she had some stress related ischemia. She does have chronic hypoxemia. She does undergo dialysis frequently. Even her renal insufficiency could produce mildly and frequently elevated troponin. I do not think this elevation in and of itself requires any additional evaluation. 2. Abnormal EKG: Her EKG is notably abnormal and concerning for ischemic heart disease. An EKG performed in December of 2021 did not have these T-wave inversions. Again, no symptoms suggestive of ischemia. Normal coronary evaluation in 2019. I think we can reassess the overall LV function with an echocardiogram. If she has abnormal LV function perhaps repeat angiography is warranted. History of Present Illness Reason for Consultation: Elevated troponin, abnormal EKG Requesting Physician: Dilan Attending Physician: Talon Kong MD History of Present Illness The patient is a 76-year-old woman with a prior history of cardiac catheterization for elevated cardiac biomarkers who presented to the hospital due to progressive weakness. Patient states that she has had more difficulty recently with ambulation and is becoming more fatigued. This was notably worse after her most recent dialysis session. She has had an element of anorexia leading up to admission as well. She did not endorse more specific symptoms such as fevers or chills. She denied significant breathing difficulty. She is generally ambulatory with a walker around her residence but overall does very little activity. She has not reported any problems with dialysis and in fact states that she feels good when she is getting dialysis. On some occasions she has had some lower blood pressures. She has not been noted to have other symptoms during dialysis such as chest pain or abnormal heart rhythms. Patient states she has not had chest discomfort of any variety recently. She has not noticed any palpitations. She generally does not suffer from dizziness or lightheadedness. She generally sleeps upright in a chair but admits that her sleep schedule is notably abnormal. She often naps during the day and is awake at nighttime. This is not changed recently. She has not noticed any significant lower extremity edema. She was able to ambulate with physical therapy this afternoon around her hospital room and states that she is gaining some strength. Allergies Allergy/AdvReac Type Severity Reaction Status Date / Time lisinopril AdvReac Intermediate cough Verified 04/28/22 15:15 Home Medications Medication Instructions Recorded Confirmed Type acetaminophen 500 mg tablet 1,000 mg PO Q6H PRN Pain 11/07/19 04/28/22 History (Tylenol Extra Strength) vit B complx, C-iron 8 mg-folic 1 tab PO QDL 02/27/20 04/28/22 History acid 800 mcg-D3 1,000 unit-zinc tablet (ProRenal) Oxygen Home #1 ea 02/29/20 04/08/22 Rx blood-glucose meter (OneTouch #1 ea 11/27/20 04/08/22 Rx Verio Meter) lancets 33 gauge (OneTouch Delica #100 ea 11/27/20 04/08/22 Rx Lancets) calcium acetate 667 mg tablet 667 mg PO UD 12/17/20 04/28/22 History ibuprofen 600 mg tablet 600 mg PO BID #60 tabs 01/03/21 04/28/22 Rx bumetanide 2 mg tablet 4 mg PO BID 10/14/21 04/28/22 History ondansetron 8 mg disintegrating 8 mg PO Q8H PRN Nausea #90 tabs 11/27/21 04/28/22 Rx tablet lactulose 10 gram/15 mL oral 15 ml PO DAILY PRN Constipation 01/16/22 04/28/22 History solution pantoprazole 40 mg tablet,delayed 40 mg PO BID 90 days #180 tabs 01/28/22 04/28/22 Rx release tramadol 50 mg tablet 50 mg PO BID #60 tabs 01/29/22 04/28/22 Rx lorazepam 0.5 mg tablet 0.5 mg PO BID PRN anxiety; 01/30/22 04/28/22 Rx difficulty swallowing #30 tabs blood sugar diagnostic (OneTouch #300 ea 03/18/22 04/08/22 Rx Verio test strips) carvedilol 12.5 mg tablet (Coreg) 12.5 mg PO BID #180 tabs 03/18/22 04/28/22 Rx cholecalciferol (vitamin D3) 50 50 mcg PO DAILY #90 caps 03/18/22 04/28/22 Rx mcg (2,000 unit) capsule gabapentin 300 mg capsule 300 mg PO BID #180 caps 03/18/22 04/28/22 Rx atorvastatin 20 mg tablet 20 mg PO HS #90 tabs 03/19/22 04/28/22 Rx levothyroxine 100 mcg tablet 100 mcg PO QPM #90 tabs 03/25/22 04/28/22 Rx sodium zirconium cyclosilicate 5 5 g PO 4XWK 03/25/22 04/28/22 History gram oral powder packet (Lokelma) primidone 50 mg tablet 100 mg PO TID 03/30/22 04/28/22 History venlafaxine 150 mg tablet,extended 150 mg PO DAILY #90 tabs 04/08/22 04/28/22 Rx release 24 hr Patient History Medical History Acute hyperkalemia Anemia Anxiety Arthritis Coronary artery disease Depression Depression with anxiety Diabetes mellitus Diabetic retinopathy Dyslipidemia End-stage renal disease on hemodialysis GERD without esophagitis Hernia, hiatal History of thrombophlebitis Hypertension Hypothyroidism Insomnia Laceration of left lower extremity Macular puckering, bilateral Obstructive sleep apnea Panniculitis Paresthesias Polyarthritis Tubular adenoma of colon Type 2 diabetes mellitus with diabetic neuropathy Vitamin D deficiency Surgical History H/O: hysterectomy History of bladder surgery History of cataract surgery History of nasal septoplasty History of tonsillectomy S/P arteriovenous (AV) fistula creation S/P hysterectomy S/P repair of paraesophageal hernia S/P rotator cuff repair Family History Mother Leukemia Cerebral aneurysm Hypertension Anxiety Diabetes Cancer Heart disease Grandmother Hypertension Father Osteoarthritis COPD (chronic obstructive pulmonary disease) Diabetes Hearing loss Sister Diabetes Myocardial infarction COPD (chronic obstructive pulmonary disease) Hypertension Brother Myocardial infarction Diabetes Cancer Stomach cancer Other No family history of bleeding disorder Denies family history of Ovarian cancer Prostate cancer Breast cancer Colorectal cancer Stroke Asthma Social History Smoking Status: Never smoker Second Hand Exposure: No; Hx Alcohol Use: No Hx Substance Use: No Preferred Language: [place] Communication Ability: Effective Visual Impairment: No Limitations Hearing Ability: Normal Equine Breeder Required: No Beliefs That Will Affect Care: None marital status: Current Living Situation: Spouse current occupational status: retired How many Children do You have: 1 Other Information That Helps Us Care for You: No Feels Safe at Home: Yes Safety Concerns: Feels Safe At This Time Dental Care, Regularly: No Physical Activity Frequency: 1-2 Times per Week Seatbelt Use: always Assistive Devices: Glasses, Oxygen - Continuous, Walker and Wheelchair Review of Systems Review of Systems: Per HPI. Physical Exam Physical Exam: She is alert and oriented x3. Mood affect appear normal. She answered all questions appropriately. HEENT: Sclerae are anicteric. Pupils are equal and reactive to light and accommodation. Extraocular movements were intact. Neuro: Cranial nerves intact Neck: Redundant neck tissue Lungs: Lungs are clear to auscultation bilaterally. There are no rales wheezes or rhonchi. She has normal respiratory effort without use of accessory muscles. There is normal pulmonary excursion. Cardiac: The rhythm was regular. S1 and S2 were normal. There are no murmurs on examination. The PMI was not markedly displaced on palpation. Abdomen: The abdomen was soft and nontender. Extremities: Palpable left radial pulse. Fistula in the right forearm. Palpable thrill. There was no evidence of significant peripheral edema bilaterally. Skin: There are no rashes noted on examination today. Results & Data ([facility]) Vital Signs (Past 12 Hours) Vital Signs Temp Pulse Pulse Resp BP Pulse Ox O2 Del Method 04/29/22 16:14 62 04/29/22 13:58 61 18 158/78 H 95 Nasal Cannula 04/29/22 09:16 Nasal Cannula 04/29/22 07:50 36.5 C 63 18 185/89 H 96 Nasal Cannula 04/29/22 07:21 61 O2 Flow Rate 04/29/22 16:14 04/29/22 13:58 3 04/29/22 09:16 3 04/29/22 07:50 3 04/29/22 07:21 Laboratory Results Abnormal Lab Results 04/28/22 04/28/22 04/28/22 11:10 16:02 16:02 WBC RBC Hgb Hct MCV MCH MCHC RDW Std Deviation RDW Coeff of Jared Plt Count MPV Sodium Potassium Chloride Carbon Dioxide Anion Gap BUN Creatinine Est Cr Clr Drug Dosing Est GFR ( Amer) Est GFR (Non-Af Amer) BUN/Creatinine Ratio Glucose POC Glucose Calcium Magnesium Unsaturated IBC 102 L Ferritin > 7500.0 H Total Bilirubin AST ALT Alkaline Phosphatase Troponin I High Sens Total Protein Albumin Globulin Albumin/Globulin Ratio Vitamin B12 853 Folate > 22.30 Nasal Screen MRSA (PCR) 04/28/22 04/28/22 04/28/22 19:51 20:01 23:30 WBC RBC Hgb Hct MCV MCH MCHC RDW Std Deviation RDW Coeff of Jared Plt Count MPV Sodium Potassium Chloride Carbon Dioxide Anion Gap BUN Creatinine Est Cr Clr Drug Dosing Est GFR ( Amer) Est GFR (Non-Af Amer) BUN/Creatinine Ratio Glucose POC Glucose 87 103 H Calcium Magnesium Unsaturated IBC Ferritin Total Bilirubin AST ALT Alkaline Phosphatase Troponin I High Sens 82.8 H* D Total Protein Albumin Globulin Albumin/Globulin Ratio Vitamin B12 Folate Nasal Screen MRSA (PCR) 04/29/22 04/29/22 04/29/22 01:20 01:33 07:40 WBC RBC Hgb Hct MCV MCH MCHC RDW Std Deviation RDW Coeff of Jared Plt Count MPV Sodium Potassium Chloride Carbon Dioxide Anion Gap BUN Creatinine Est Cr Clr Drug Dosing Est GFR ( Amer) Est GFR (Non-Af Amer) BUN/Creatinine Ratio Glucose POC Glucose 50 L* Calcium Magnesium Unsaturated IBC Ferritin Total Bilirubin AST ALT Alkaline Phosphatase Troponin I High Sens 83.0 H* Total Protein Albumin Globulin Albumin/Globulin Ratio Vitamin B12 Folate Nasal Screen MRSA (PCR) Negative 04/29/22 04/29/22 04/29/22 07:41 08:01 08:24 WBC RBC Hgb Hct MCV MCH MCHC RDW Std Deviation RDW Coeff of Jared Plt Count MPV Sodium Potassium Chloride Carbon Dioxide Anion Gap BUN Creatinine Est Cr Clr Drug Dosing Est GFR ( Amer) Est GFR (Non-Af Amer) BUN/Creatinine Ratio Glucose POC Glucose 55 L* 66 L* 115 H Calcium Magnesium Unsaturated IBC Ferritin Total Bilirubin AST ALT Alkaline Phosphatase Troponin I High Sens Total Protein Albumin Globulin Albumin/Globulin Ratio Vitamin B12 Folate Nasal Screen MRSA (PCR) 04/29/22 04/29/22 04/29/22 09:32 09:32 11:33 WBC 4.60 L RBC 2.94 L Hgb 9.6 L Hct 30.8 L MCV 104.8 H MCH 32.7 MCHC 31.2 L RDW Std Deviation 51.9 H RDW Coeff of Jared 13.5 Plt Count 101 L MPV 10.3 Sodium 135 L Potassium 5.1 Chloride 93 L Carbon Dioxide 37 H Anion Gap 5 BUN 34 H Creatinine 6.19 H* D Est Cr Clr Drug Dosing 7.8 Est GFR ( Amer) 7.0 Est GFR (Non-Af Amer) 6.0 BUN/Creatinine Ratio 5.5 L Glucose 123 H POC Glucose 110 H Calcium 8.6 Magnesium 2.4 Unsaturated IBC Ferritin Total Bilirubin 0.3 AST 320 H ALT 174 H Alkaline Phosphatase 104 Troponin I High Sens Total Protein 6.5 Albumin 3.5 Globulin 3.0 Albumin/Globulin Ratio 1.2 Vitamin B12 Folate Nasal Screen MRSA (PCR) 04/29/22 16:34 WBC RBC Hgb Hct MCV MCH MCHC RDW Std Deviation RDW Coeff of Jared Plt Count MPV Sodium Potassium Chloride Carbon Dioxide Anion Gap BUN Creatinine Est Cr Clr Drug Dosing Est GFR ( Amer) Est GFR (Non-Af Amer) BUN/Creatinine Ratio Glucose POC Glucose 79 Calcium Magnesium Unsaturated IBC Ferritin Total Bilirubin AST ALT Alkaline Phosphatase Troponin I High Sens Total Protein Albumin Globulin Albumin/Globulin Ratio Vitamin B12 Folate Nasal Screen MRSA (PCR) Diagnostic Findings Head CT, chest x-ray and abdominal ultrasound were all performed. No significant abnormalities 12/30/2018: Near dual ostial left main physiology. No significant disease in the left main, left anterior descending or left circumflex vessel. Nonobstructive disease in the mid RCA estimated at 20-30% stenosis ECG Additional Comments: EKG was obtained the time admission which revealed normal sinus rhythm with 1st degree AV block. Left anterior fascicular block with left axis deviation, incomplete right bundle-branch block and T-wave inversions throughout the anterior and lateral precordial leads. PG Care Time/CCT Total # of Minutes Spent Total Time Spent with Patient: Total time spent is greater than 50% in coordination of care (as documented) at patient's floor/unit and/or counseling patient: Coding Level of Care Code 23270 Initial Inpt Care Lvl 3 Diagnoses Elevated troponin R77.8 Abnormal EKG R94.31
[2022-04-30] MEDS ORDERED: ACETAMINOPHEN 325 MG TAB PO PRN (02:21)
[2022-04-30] MEDS: ACETAMINOPHEN 325 MG TAB PO PRN (02:45)
[2022-04-30] MEDS: HEPARIN SOD 5,000 UNIT/0.5 ML VIAL SQ SCH ×3 (06:06→22:30)
[2022-04-30 06:42] LABS: Hematocrit (blood only) 28.4 % (34.1-44.9); Hemoglobin 8.9 g/dl (12.0-16.0); Mean Corpuscular Hemoglobin 31.8 pg (25.0-34.0); Mean Corpuscular Hgb Conc 31.3 g/dL (32.0-36.0); Mean Corpuscular Volume 101.4 fL (80.0-100.0); Mean Platelet Volume 10.5 fL (9.4-12.3); Platelet Count 119 K/uL (130-400); RDW Coefficient of Variation 13.3 % (11.5-14.5); RDW Standard Deviation 50.2 fL (36.4-46.3); White Blood Count 5.23 K/ul (4.8-10.8)
[2022-04-30] MEDS ORDERED: EPOETIN ALFA 20,000 UNITS/ML VIAL IV SCH (07:00)
[2022-04-30 07:06] LABS: Albumin Globulin Ratio 1.1 (0.9-2); Albumin Level 3.4 gm/dl (3.4-5.0); BUN Creatinine Ratio 6.6 (10-20); Bilirubin,Total 0.3 mg/dl (0.2-1.0); Calcium 8.5 mg/dl (8.5-10.1); Creatinine Clr Calc Pharmacy 6.9 ml/min; Est GFR (African American) 5.9 ml/min; Est GFR (Non-African American) 5.1 ml/min; Magnesium 2.6 mg/dl (1.7-2.4); Phosphorus 5.1 mg/dl (2.5-4.9); Potassium 5.2 mmol/L (3.5-5.1); Total Protein 6.4 gm/dl (6.0-8.3)
[2022-04-30] MEDS: CARBOHYDRATES FOR HYPOGLYCEMIA PO PRN (07:35)
[2022-04-30] MEDS: GABAPENTIN 300 MG CAP PO SCH ×2 (07:37→22:29)
[2022-04-30] MEDS: PRIMIDONE 50 MG TAB PO SCH ×3 (07:37→21:57)
[2022-04-30] MEDS: CALCIUM ACETATE 667 MG CAP/TAB PO SCH ×3 (07:37→15:59)
[2022-04-30] MEDS: amLODIPine BESYLATE 5 MG TAB PO SCH (07:37)
[2022-04-30] MEDS: NEPHROCAPS PO SCH (07:38)
[2022-04-30] MEDS: PANTOprazole 40 MG TAB PO SCH ×2 (07:38→22:29)
[2022-04-30] MEDS: CHOLECALCIFEROL 1,000 UNITS 25 MCG TAB PO SCH (07:38)
[2022-04-30] MEDS: VENLAFAXINE HCL XR 150 MG CAPXR PO SCH (07:38)
[2022-04-30] MEDS: carvediloL 12.5 MG TAB PO SCH ×2 (07:39→22:29)
[2022-04-30] MEDS: BUMETANIDE 1 MG TAB PO SCH ×2 (07:39→16:00)
[2022-04-30] MEDS: INSULIN ASPART PER UNIT SC SCH ×4 (07:40→22:30)
[2022-04-30] MEDS: traMADol HCL 50 MG TABLET PO SCH ×2 (07:42→21:56)
--- NOTE | 2022-04-30 11:52 | Nephrology Progress Note ---
Date of Service April 30, 2022 Assessment & Plan (1) End-stage renal disease on hemodialysis: Plan: ESRD on HD TTS. Orders for HD today entered into EHR and reviewed with RN. Rx 4 hours on 180 optiflux, 2 K bath. EDW 92 kg. Qb 350-400. Remains on Lokelma on non-HD days. Low potassium diet. Shirley is maintained on Bumex. Continue home antihypertensives including amlodipine. Medications are appropriately dosed for kidney function. I discussed possible dose reduction of gabapentin but Shirley states that pain in her legs becomes unbearable on lower doses. (2) Anemia: Plan: Epogen 37042 units with HD today. (3) Chronic kidney disease-mineral and bone disorder: Plan: Renal diet. Continue Phoslo QAC. Admission and Anticipated Discharge Date Admission Date: April 28, 2022 Subjective No acute events overnight. Seen and evaluated during HD this AM. Shirley was much more awake this morning. She reports notable chronic weakness and fatigue. No acute complaints. Due to a leak in tubing, blood was returned after initial start of HD (only ~70% was able to be returned). No complications with treatment affecting patient. After new set-up, dialysis running smoothly. Review of Systems Review of Systems: All systems reviewed & are unremarkable except as noted in HPI & below Physical Exam Constitutional: + frail appearing; no acute distress Eyes: + anicteric sclerae; no corneal abnormality ENMT: Mouth: + dry oral mucous membranes; no oral mucosal abnormality Neck: normal visual inspection and trachea midline Respiratory: normal respiratory effort Auscultation: lungs clear to auscultation bilaterally Cardiovascular: Rate/Rhythm: + bradycardic Heart Sounds: normal S1, normal S2 and + murmur Extremities: + pedal edema, + edema and + AV fistula Musculoskeletal: Extremities: no cyanosis and no clubbing Skin: normal turgor; no lesions Neurologic: Motor/Sensory: no tremor and no asterixis Psychiatric: Orientation: alert and oriented x 3 Results & Data ([facility]) Vital Signs (Past 12 Hours) Vital Signs Temp Pulse Pulse Pulse Resp BP BP 04/30/22 11:00 57 L 128/54 L 04/30/22 10:30 62 162/72 H 04/30/22 10:00 60 150/66 H 04/30/22 09:30 64 161/76 H 04/30/22 09:26 64 153/108 H 04/30/22 09:14 36.5 C 63 04/30/22 08:58 04/30/22 07:19 57 L 04/30/22 04:42 36.6 C 57 L 18 133/73 04/30/22 01:14 04/30/22 00:13 36.5 C 68 18 154/72 H Pulse Ox O2 Del Method O2 Flow Rate 04/30/22 11:00 04/30/22 10:30 04/30/22 10:00 04/30/22 09:30 04/30/22 09:26 04/30/22 09:14 04/30/22 08:58 Nasal Cannula 3 04/30/22 07:19 04/30/22 04:42 99 Room Air 04/30/22 01:14 Nasal Cannula 3 04/30/22 00:13 96 Nasal Cannula 3 Laboratory Results Laboratory Results - last 24 hr 04/29/22 04/29/22 04/29/22 11:33 16:34 20:22 WBC RBC Hgb Hct MCV MCH MCHC RDW Std Deviation RDW Coeff of Jared Plt Count MPV Sodium Potassium Chloride Carbon Dioxide Anion Gap BUN Creatinine Est Cr Clr Drug Dosing Est GFR ( Amer) Est GFR (Non-Af Amer) BUN/Creatinine Ratio Glucose POC Glucose 110 H 79 87 Calcium Phosphorus Magnesium Total Bilirubin AST ALT Alkaline Phosphatase Total Protein Albumin Globulin Albumin/Globulin Ratio 04/30/22 04/30/22 04/30/22 05:57 05:57 07:31 WBC 5.23 RBC 2.80 L Hgb 8.9 L Hct 28.4 L MCV 101.4 H MCH 31.8 MCHC 31.3 L RDW Std Deviation 50.2 H RDW Coeff of Jared 13.3 Plt Count 119 L MPV 10.5 Sodium 134 L Potassium 5.2 H Chloride 92 L Carbon Dioxide 36 H Anion Gap 6 BUN 47 H Creatinine 7.16 H* D Est Cr Clr Drug Dosing 6.9 Est GFR ( Amer) 5.9 Est GFR (Non-Af Amer) 5.1 BUN/Creatinine Ratio 6.6 L Glucose 55 L POC Glucose 62 L* Calcium 8.5 Phosphorus 5.1 H Magnesium 2.6 H Total Bilirubin 0.3 AST 245 H ALT 168 H Alkaline Phosphatase 101 Total Protein 6.4 Albumin 3.4 Globulin 3.0 Albumin/Globulin Ratio 1.1 04/30/22 04/30/22 07:32 07:51 WBC RBC Hgb Hct MCV MCH MCHC RDW Std Deviation RDW Coeff of Jared Plt Count MPV Sodium Potassium Chloride Carbon Dioxide Anion Gap BUN Creatinine Est Cr Clr Drug Dosing Est GFR ( Amer) Est GFR (Non-Af Amer) BUN/Creatinine Ratio Glucose POC Glucose 57 L* 89 Calcium Phosphorus Magnesium Total Bilirubin AST ALT Alkaline Phosphatase Total Protein Albumin Globulin Albumin/Globulin Ratio PG Care Time/CCT Total # of Minutes Spent Total Time Spent with Patient: Total time spent is greater than 50% in coordination of care (as documented) at patient's floor/unit and/or counseling patient: Coding Level of Care Code 38181 Subseq Hosp Care Lvl 3 Diagnoses End-stage renal disease on hemodialysis N18.6; Z99.2 Anemia D64.9 Chronic kidney disease-mineral and bone disorder N18.9; E83.9; M89.9
--- NOTE | 2022-04-30 16:49 | XCELERA ---
[id number] [id number]
--- NOTE | 2022-04-30 18:12 | Cardiology Progress Note ---
Date of Service April 30, 2022 Assessment & Plan (1) Elevated troponin: (2) Abnormal EKG: Plan 1. Elevated troponin: While I do not believe she has suffering an acute coronary syndrome, she may have some element of demand ischemia. Given her new echocardiographic and EKG findings think would be reasonable to perform coronary angiography. I did describe the procedure to the patient and her family. She is willing to proceed. 2. Abnormal EKG: Concerning for ischemia. Been wall motion abnormality and elevated troponin, I recommended coronary angiography. Admission and Anticipated Discharge Date Admission Date: April 28, 2022 Subjective This afternoon the patient claimed he feeling well. She was still having some lower extremity pain with ambulation but this is improved. Overall strength is improved. She was ambulatory to the bathroom and back. No exertional chest pain or limiting dyspnea. No dizziness or lightheadedness. No specific complications during dialysis. Review of Systems Review of Systems: Per HPI Physical Exam Physical Exam: She is alert and oriented x3. Mood affect appear normal. She answered all questions appropriately. HEENT: Sclerae are anicteric. Pupils are equal and reactive to light and accommodation. Extraocular movements were intact. Neuro: Cranial nerves intact Neck: Redundant neck tissue Lungs: Normal respiratory effort. Cardiac: The rhythm was regular. Skin: There are no rashes noted on examination today. Results & Data ([facility]) Vital Signs (Past 12 Hours) Vital Signs Temp Pulse Pulse Resp BP BP Pulse Ox 04/30/22 16:18 36.7 C 62 20 161/81 H 98 04/30/22 15:32 62 04/30/22 13:35 36.6 C 65 159/80 H 04/30/22 13:00 54 L 142/63 H 04/30/22 12:30 57 L 154/65 H 04/30/22 12:00 57 L 142/68 H 04/30/22 11:30 55 L 130/48 L 04/30/22 11:00 57 L 128/54 L 04/30/22 10:30 62 162/72 H 04/30/22 10:00 60 150/66 H 04/30/22 09:30 64 161/76 H 04/30/22 09:26 64 153/108 H 04/30/22 09:14 36.5 C 63 04/30/22 08:58 04/30/22 07:19 57 L O2 Del Method O2 Flow Rate 04/30/22 16:18 Nasal Cannula 2 04/30/22 15:32 04/30/22 13:35 04/30/22 13:00 04/30/22 12:30 04/30/22 12:00 04/30/22 11:30 04/30/22 11:00 04/30/22 10:30 04/30/22 10:00 04/30/22 09:30 04/30/22 09:26 04/30/22 09:14 04/30/22 08:58 Nasal Cannula 3 04/30/22 07:19 Laboratory Results Abnormal Lab Results 04/29/22 04/30/22 04/30/22 20:22 05:57 05:57 WBC 5.23 RBC 2.80 L Hgb 8.9 L Hct 28.4 L MCV 101.4 H MCH 31.8 MCHC 31.3 L RDW Std Deviation 50.2 H RDW Coeff of Jared 13.3 Plt Count 119 L MPV 10.5 Sodium 134 L Potassium 5.2 H Chloride 92 L Carbon Dioxide 36 H Anion Gap 6 BUN 47 H Creatinine 7.16 H* D Est Cr Clr Drug Dosing 6.9 Est GFR ( Amer) 5.9 Est GFR (Non-Af Amer) 5.1 BUN/Creatinine Ratio 6.6 L Glucose 55 L POC Glucose 87 Calcium 8.5 Phosphorus 5.1 H Magnesium 2.6 H Total Bilirubin 0.3 AST 245 H ALT 168 H Alkaline Phosphatase 101 Total Creatine Kinase Total Protein 6.4 Albumin 3.4 Globulin 3.0 Albumin/Globulin Ratio 1.1 04/30/22 04/30/22 04/30/22 05:57 07:31 07:32 WBC RBC Hgb Hct MCV MCH MCHC RDW Std Deviation RDW Coeff of Jared Plt Count MPV Sodium Potassium Chloride Carbon Dioxide Anion Gap BUN Creatinine Est Cr Clr Drug Dosing Est GFR ( Amer) Est GFR (Non-Af Amer) BUN/Creatinine Ratio Glucose POC Glucose 62 L* 57 L* Calcium Phosphorus Magnesium Total Bilirubin AST ALT Alkaline Phosphatase Total Creatine Kinase 28 Total Protein Albumin Globulin Albumin/Globulin Ratio 04/30/22 04/30/22 04/30/22 07:51 14:42 16:39 WBC RBC Hgb Hct MCV MCH MCHC RDW Std Deviation RDW Coeff of Jared Plt Count MPV Sodium Potassium Chloride Carbon Dioxide Anion Gap BUN Creatinine Est Cr Clr Drug Dosing Est GFR ( Amer) Est GFR (Non-Af Amer) BUN/Creatinine Ratio Glucose POC Glucose 89 87 106 H Calcium Phosphorus Magnesium Total Bilirubin AST ALT Alkaline Phosphatase Total Creatine Kinase Total Protein Albumin Globulin Albumin/Globulin Ratio Diagnostic Findings Echocardiogram performed today revealed overall preserved LV systolic function. Regional wall motion abnormality involving the distal inferior wall. Mild mitral stenosis with mild mitral regurgitation. PG Care Time/CCT Total # of Minutes Spent Total Time Spent with Patient: Total time spent is greater than 50% in coordination of care (as documented) at patient's floor/unit and/or counseling patient: Coding Level of Care Code 60771 Subseq Hosp Care Lvl 2 Diagnoses Elevated troponin R77.8 Abnormal EKG R94.31
--- NOTE | 2022-04-30 19:56 | Hospitalist Progress Note ---
Date of Service April 30, 2022 Assessment & Plan (1) Weakness: Plan: Essentially this is acute on chronic weakness. Chronic ambulatory dysfunction and recurrent falls chronic weakness noted on the 25 March note by PCP. Palliative care was considered in the last PCP visit about 4 weeks ago. The patient is having difficulty managing at home. This is basically a placement admission.. TSH normal 2.47 COVID-negative yesterday AST/ALT remain elevated, check CK to assess if this is from muscle given how she has lower extremity weakness and LFTs are normal (bili, Alk Phos, INR) -this work up should not delay discharge however. (2) Transaminitis: Plan: -AST, ALT, and alk phos all elevated and slightly higher today -Ammonia normal yesterday -Unsure of the cause at this time, ultrasound of the liver is normal including the bile duct. -Monitor for now -as noted above. (3) Hypertension: Plan: -Was noted to be hypertensive on arrival to the ED with systolics in the 190's BP has remained elevated added amlodipine this morning 04/29 -Continue Bumex, carvedilol, (4) Elevated troponin: Plan: -Initial high sensitivity troponin noted to be 47.9 with two hour repeat at 65.9 , t-wave inversion noted in the inferior and anterolateral leads-the latter is new. With elevated troponin and his EKG changesconsult cardiology TTE 02/27/2020 shows biatrial dilation, LVEF 55 to 60%, moderate pulmonary hypertension and moderate concentric LVH. dec 2018 cardiac catheterization report incomplete in the chart. Has not seen cardiology since 2017 per records we have H/po oericarditis noted in that Feb 2017 card note Patient chest pain-free Troponin 82.8 to 83 today History of CADcontinue carvedilol, Lipitor Add aspirin No symptoms of coronary ischemia -Continue telemetry (5) Chronic respiratory failure with hypoxia: Plan: -Continue baseline O2 at 3L NC, currently stable Seems to be a mixture of pulmonary hypertension and heart failure with preserved ejection fraction Per prior outpatient notes WELL Jan 2020 TTE (6) Diabetes mellitus: Plan: -Does not use home regimen at this time -Was noted to be hypoglycemic in the 50's after admission -Hypoglycemic today and had to be given orange juice. Not on any hypoglycemics/ insulin (7) End-stage renal disease on hemodialysis: Plan: -Completed full session of HD today without complication -Electrolytes currently stable -Nephrology consult placed for HD while admitted, current schedule is TTS -Continue Vitd D, pro renal tabs, sodium zirconium, and calcium acetate (8) Anemia: Plan: -Longstanding hypochromic [id number] level normal 04/28 at 853 folate normal at 22 -Will obtain anemia labs including ferritin, Iron, transferrin, -Patient likely has some aspect of anemia of chronic kidney disease -Continue Vitamin D and pro renal tablet (9) Coronary artery disease: Plan: Not currently on aspirin- start -Continue atorvastatin (10) Hypothyroidism: Plan: -Continue levothyroxine (11) Vitamin D deficiency: Plan: -Continue Vit D (12) Dyslipidemia: Plan: -Continue statin (13) Depression with anxiety: Plan: -Continue ativan, venlafaxine, (14) Depression: Plan: Venlafaxine was increased to 150 twice daily earlier this month by PCP. Euthymic Also has diagnosis oFgeneralized anxiety disorder. Plan \ Admission and Anticipated Discharge Date Admission Date: April 28, 2022 Subjective 76 yo female reports no new symptoms. She continues to have bilateral thigh pain which she came in with. Review of Systems Review of Systems: All systems reviewed & are unremarkable except as noted in HPI & below Physical Exam Physical Exam: Obese lady sitting up in bed, on 2 L oxygen, eating. 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 and toe plantar flexors Results & Data Results & Data ([facility]) Vital Signs (Past 12 Hours) Vital Signs Temp Pulse Pulse Resp BP BP Pulse Ox 04/30/22 19:40 36.6 C 74 18 188/76 H 92 04/30/22 16:18 36.7 C 62 20 161/81 H 98 04/30/22 15:32 62 04/30/22 13:35 36.6 C 65 159/80 H 04/30/22 13:00 54 L 142/63 H 04/30/22 12:30 57 L 154/65 H 04/30/22 12:00 57 L 142/68 H 04/30/22 11:30 55 L 130/48 L 04/30/22 11:00 57 L 128/54 L 04/30/22 10:30 62 162/72 H 04/30/22 10:00 60 150/66 H 04/30/22 09:30 64 161/76 H 04/30/22 09:26 64 153/108 H 04/30/22 09:14 36.5 C 63 04/30/22 08:58 O2 Del Method O2 Flow Rate 04/30/22 19:40 Nasal Cannula 2 04/30/22 16:18 Nasal Cannula 2 04/30/22 15:32 04/30/22 13:35 04/30/22 13:00 04/30/22 12:30 04/30/22 12:00 04/30/22 11:30 04/30/22 11:00 04/30/22 10:30 04/30/22 10:00 04/30/22 09:30 04/30/22 09:26 04/30/22 09:14 04/30/22 08:58 Nasal Cannula 3 PG Care Time/CCT Total # of Minutes Spent Total Time Spent with Patient: Total time spent is greater than 50% in coordination of care (as documented) at patient's floor/unit and/or counseling patient: Coding Level of Care Code 72445 Subseq Hosp Care Lvl 2 Diagnoses Weakness R53.1 Transaminitis R74.01 Hypertension I10 Elevated troponin R77.8 Chronic respiratory failure with hypoxia J96.11 Diabetes mellitus E11.22; N18.6; Z79.4; Z99.2 Chronic kidney disease stage: on chronic dialysis Diabetes mellitus complication detail: with chronic kidney disease Diabetes mellitus complication status: with kidney complications Diabetes mellitus half-way insulin use: with half-way use Diabetes mellitus type: type 2 End-stage renal disease on hemodialysis N18.6; Z99.2 Anemia D64.9 Coronary artery disease I25.10 Associated angina: without angina Coronary Disease-Associated Artery/Lesion type: nondalton artery [place] vs. transplanted heart: nondalton heart Hypothyroidism E03.9 Hypothyroidism type: unspecified Vitamin D deficiency E55.9 Dyslipidemia E78.5 Depression with anxiety F41.8 Depression F32.A (1) Diabetes mellitus Chronic kidney disease stage: on chronic dialysis Diabetes mellitus complication detail: with chronic kidney disease Diabetes mellitus complication status: with kidney complications Diabetes mellitus half-way insulin use: with half-way use Diabetes mellitus type: type 2 Qualified Code(s): E11.22 - Type 2 diabetes mellitus with diabetic chronic kidney disease; N18.6 - End stage renal disease; Z79.4 - special officer automat (current) use of insulin; Z99.2 - Dependence on renal dialysis (2) Coronary artery disease Associated angina: without angina Coronary Disease-Associated Artery/Lesion type: nondalton artery [place] vs. transplanted heart: nondalton heart Qualified Code(s): I25.10 - Atherosclerotic heart disease of nondalton coronary artery wit hout angina pectoris (3) Hypothyroidism Hypothyroidism type: unspecified Qualified Code(s): E03.9 - Hypothyroidism, unspecified
[2022-04-30] MEDS ORDERED: LIDOCAINE 5% 1 PATCH TD STA (20:58)
[2022-04-30] MEDS: LEVOTHYROXINE SODIUM 100 MCG TABLET PO SCH (22:28)
[2022-04-30] MEDS: ATORVASTATIN 20 MG TAB PO SCH (22:29)
[2022-05-01] MEDS: LORazepam 0.5 MG TAB PO PRN ×2 (02:02→20:39)
[2022-05-01] MEDS: ACETAMINOPHEN 325 MG TAB PO PRN ×2 (02:02→20:52)
[2022-05-01] MEDS: HEPARIN SOD 5,000 UNIT/0.5 ML VIAL SQ SCH ×3 (05:15→20:53)
[2022-05-01] MEDS: GABAPENTIN 300 MG CAP PO SCH ×2 (07:17→20:41)
[2022-05-01] MEDS: PANTOprazole 40 MG TAB PO SCH ×2 (07:18→20:39)
[2022-05-01] MEDS: BUMETANIDE 1 MG TAB PO SCH ×2 (07:18→17:04)
[2022-05-01] MEDS: PRIMIDONE 50 MG TAB PO SCH ×3 (07:18→20:40)
[2022-05-01] MEDS: VENLAFAXINE HCL XR 150 MG CAPXR PO SCH (07:19)
[2022-05-01] MEDS: CALCIUM ACETATE 667 MG CAP/TAB PO SCH ×3 (07:19→17:05)
[2022-05-01] MEDS: amLODIPine BESYLATE 5 MG TAB PO SCH (07:19)
[2022-05-01] MEDS: CHOLECALCIFEROL 1,000 UNITS 25 MCG TAB PO SCH (07:20)
[2022-05-01] MEDS: carvediloL 12.5 MG TAB PO SCH ×2 (07:21→18:05)
[2022-05-01] MEDS: traMADol HCL 50 MG TABLET PO SCH ×2 (07:29→20:52)
[2022-05-01 07:39] LABS: Hematocrit (blood only) 29.6 % (34.1-44.9); Hemoglobin 9.1 g/dl (12.0-16.0); Mean Corpuscular Hemoglobin 32.3 pg (25.0-34.0); Mean Corpuscular Hgb Conc 30.7 g/dL (32.0-36.0); Nucleated RBC # (auto) 0.02 K/uL (0-0); Nucleated RBC % (auto) 0.4 %; Platelet Count 123 K/uL (130-400); RDW Coefficient of Variation 13.4 % (11.5-14.5); RDW Standard Deviation 51.3 fL (36.4-46.3); Red Blood Count 2.82 M/uL (3.93-5.22); White Blood Count 4.57 K/ul (4.8-10.8)
[2022-05-01 08:01] LABS: Albumin Globulin Ratio 1.2 (0.9-2); Albumin Level 3.4 gm/dl (3.4-5.0); BUN Creatinine Ratio 4.3 (10-20); Bilirubin,Total 0.4 mg/dl (0.2-1.0); Calcium 8.7 mg/dl (8.5-10.1); Est GFR (African American) 10.5 ml/min; Globulin 2.9 gm/dl (2.5-4.0); Magnesium 2.3 mg/dl (1.7-2.4); Potassium 4.6 mmol/L (3.5-5.1); Total Protein 6.3 gm/dl (6.0-8.3)
[2022-05-01] MEDS: INSULIN ASPART PER UNIT SC SCH ×4 (08:27→20:36)
--- NOTE | 2022-05-01 09:50 | Nephrology Progress Note ---
Date of Service May 01, 2022 Assessment & Plan (1) End-stage renal disease on hemodialysis: Plan: ESRD on HD TTS. Completed treatment yesterday with adequate clearance and UF. Rx 4 hours on 180 optiflux, 2 K bath. EDW 92 kg. Qb 350-400. Remains on Lokelma on non-HD days. Low potassium diet. Shirley is maintained on Bumex. Medications are appropriately dosed for kidney function. I discussed possible dose reduction of gabapentin but Shirley states that pain in her legs becomes unbearable on lower doses. (2) Anemia: Plan: Epogen 44200 units with HD yesterday. (3) Chronic kidney disease-mineral and bone disorder: Plan: Renal diet. Continue Phoslo QAC. (4) Hypertension: Plan: Accelerated BP but appears asymptomatic. Just received amlodipine this AM. Volume status acceptable. Additional 5 mg amlodipine may be provided as needed if BP remains elevated. (5) Acute electrocardiogram changes: Plan: Cardiology consultation reviewed. Noted plans for coronary angiography regarding change in EKG and TTE. Admission and Anticipated Discharge Date Admission Date: April 28, 2022 Subjective No acute events overnight. Shirley reports feeling very tired this AM. She tolerated HD well yesterday. Net UF 2.5 L. She continues to struggle with some diffuse achiness in her legs which has been ongoing for months. No chest pain or palpitations. No shortness of breath. Denies headache. Reports mild nausea. BP elevated but she does not feel symptomatic in this regard. She has no fluid retention or edema. Review of Systems Review of Systems: All systems reviewed & are unremarkable except as noted in HPI & below Physical Exam Constitutional: + frail appearing; no acute distress Eyes: + anicteric sclerae; no corneal abnormality ENMT: Mouth: + dry oral mucous membranes; no oral mucosal abnormality Neck: normal visual inspection and trachea midline Respiratory: normal respiratory effort Auscultation: lungs clear to auscultation bilaterally Cardiovascular: Rate/Rhythm: + bradycardic Heart Sounds: normal S1, normal S2 and + murmur Extremities: + AV fistula; no edema Musculoskeletal: Extremities: no cyanosis and no clubbing Skin: normal turgor; no lesions Neurologic: Motor/Sensory: no tremor and no asterixis Psychiatric: Orientation: alert and oriented x 3 Results & Data ([facility]) Vital Signs (Past 12 Hours) Vital Signs Temp Pulse Pulse Resp BP Pulse Ox O2 Del Method 05/01/22 08:40 Nasal Cannula 05/01/22 07:52 36.4 C L 57 L 20 181/86 H 95 Nasal Cannula 05/01/22 06:54 57 L 05/01/22 02:59 36.7 C 63 18 187/83 H 98 Nasal Cannula 04/30/22 23:49 67 04/30/22 23:00 Nasal Cannula 04/30/22 22:13 36.7 C 73 20 177/71 H 96 Nasal Cannula O2 Flow Rate 05/01/22 08:40 3 05/01/22 07:52 2 05/01/22 06:54 05/01/22 02:59 2 04/30/22 23:49 04/30/22 23:00 2 04/30/22 22:13 2 Laboratory Results Laboratory Results - last 24 hr 04/30/22 04/30/22 04/30/22 05:57 14:42 16:39 WBC RBC Hgb Hct MCV MCH MCHC RDW Std Deviation RDW Coeff of Jared Plt Count MPV Absolute Nucleated RBC Nucleated RBC % (auto) Sodium Potassium Chloride Carbon Dioxide Anion Gap BUN Creatinine Est Cr Clr Drug Dosing Est GFR ( Amer) Est GFR (Non-Af Amer) BUN/Creatinine Ratio Glucose POC Glucose 87 106 H Calcium Magnesium Total Bilirubin AST ALT Alkaline Phosphatase Total Creatine Kinase 28 Total Protein Albumin Globulin Albumin/Globulin Ratio 04/30/22 05/01/22 05/01/22 20:00 07:12 07:12 WBC 4.57 L RBC 2.82 L Hgb 9.1 L Hct 29.6 L MCV 105.0 H MCH 32.3 MCHC 30.7 L RDW Std Deviation 51.3 H RDW Coeff of Jared 13.4 Plt Count 123 L MPV 10.0 Absolute Nucleated RBC 0.02 H Nucleated RBC % (auto) 0.4 Sodium 136 Potassium 4.6 Chloride 100 Carbon Dioxide 33 H Anion Gap 3 BUN 19 D Creatinine 4.43 H D Est Cr Clr Drug Dosing 11.0 Est GFR ( Amer) 10.5 Est GFR (Non-Af Amer) 9.0 BUN/Creatinine Ratio 4.3 L Glucose 56 L POC Glucose 123 H Calcium 8.7 Magnesium 2.3 Total Bilirubin 0.4 AST 171 H ALT 153 H Alkaline Phosphatase 97 Total Creatine Kinase Total Protein 6.3 Albumin 3.4 Globulin 2.9 Albumin/Globulin Ratio 1.2 05/01/22 07:42 WBC RBC Hgb Hct MCV MCH MCHC RDW Std Deviation RDW Coeff of Jared Plt Count MPV Absolute Nucleated RBC Nucleated RBC % (auto) Sodium Potassium Chloride Carbon Dioxide Anion Gap BUN Creatinine Est Cr Clr Drug Dosing Est GFR ( Amer) Est GFR (Non-Af Amer) BUN/Creatinine Ratio Glucose POC Glucose 72 Calcium Magnesium Total Bilirubin AST ALT Alkaline Phosphatase Total Creatine Kinase Total Protein Albumin Globulin Albumin/Globulin Ratio PG Care Time/CCT Total # of Minutes Spent Total Time Spent with Patient: Total time spent is greater than 50% in coordination of care (as documented) at patient's floor/unit and/or counseling patient: Coding Level of Care Code 93837 Subseq Hosp Care Lvl 3 Diagnoses End-stage renal disease on hemodialysis N18.6; Z99.2 Anemia D64.9 Chronic kidney disease-mineral and bone disorder N18.9; E83.9; M89.9 Hypertension I10 Acute electrocardiogram changes R94.31
[2022-05-01] MEDS: NEPHROCAPS PO SCH (11:11)
[2022-05-01] MEDS: SODIUM ZIRCONIUM CYCLOSILICATE 10 GM PACKET PO SCH (11:12)
--- NOTE | 2022-05-01 11:30 | Hospitalist Progress Note ---
Date of Service May 01, 2022 Assessment & Plan (1) Weakness: Plan: Essentially this is acute on chronic weakness. Chronic ambulatory dysfunction and recurrent falls chronic weakness noted on the 25 March note by PCP. Palliative care was considered in the last PCP visit about 4 weeks ago. The patient is having difficulty managing at home. This is basically a placement admission.. TSH normal 2.47 COVID-negative. (2) Transaminitis: Plan: -AST, ALT, going down now. today 171, 153 Etio uncertain- ??hypotension during HD outside hospital -Ammonia normal yesterday -Unsure of the cause at this time, ultrasound of the liver is normal including the bile duct. -Monitor for now -as noted above. (3) Hypertension: Plan: -Was noted to be hypertensive on arrival to the ED with systolics in the 190's BP has remained elevated added amlodipine this morning 04/29 raise amplodipine to 10 mg, consder hydralazine -Continue Bumex, carvedilol (4) Elevated troponin: Plan: -Initial high sensitivity troponin noted to be 47.9 with two hour repeat at 65.9 then 85 04/29 , t-wave inversion noted in the inferior and anterolateral leads- the latter is new. With elevated troponin and his EKG changesconsult cardiology TTE 02/27/2020 shows biatrial dilation, LVEF 55 to 60%, moderate pulmonary hypertension and moderate concentric LVH. dec 2018 cardiac catheterization report incomplete in the chart. Has not seen cardiology since 2017 per records we have H/po oericarditis noted in that Feb 2017 card note Patient chest pain-free History of CADcontinue carvedilol, Lipitor Add aspirin No symptoms of coronary ischemia but wall motion abnormality TTE 04/28, NORrmal EF, LA mod dilation, mild LVH wALL MOTION ABNORMALITY ON REPEAT TTE yesterday: telemetry NSr 50s-- Left heart cath this afternoon (5) Chronic respiratory failure with hypoxia: Plan: -Continue baseline O2 at 3L NC, currently stable Seems to be a mixture of pulmonary hypertension and heart failure with preserved ejection fraction Per prior outpatient notes WELL Jan 2020 TTE (6) Diabetes mellitus: Plan: -Does not use home regimen at this time -Was noted to be hypoglycemic in the 50's after admission -Hypoglycemic today and had to be given orange juice. Not on any hypoglycemics/ insulin (7) End-stage renal disease on hemodialysis: Plan: -Completed full session of HD today without complication -Electrolytes currently stable -Nephrology consult placed for HD while admitted, current schedule is TTS -Continue Vitd D, pro renal tabs, sodium zirconium, and calcium acetate (8) Anemia: Plan: -Longstanding hypochromic [id number] level normal 04/28 at 853 folate normal at 22 -Will obtain anemia labs including ferritin, Iron, transferrin, -Patient likely has some aspect of anemia of chronic kidney disease -Continue Vitamin D and pro renal tablet (9) Coronary artery disease: Plan: Not currently on aspirin- start -Continue atorvastatin Ctah today (10) Hypothyroidism: Plan: -Continue levothyroxine (11) Vitamin D deficiency: Plan: -Continue Vit D (12) Dyslipidemia: Plan: -Continue statin (13) Depression with anxiety: Plan: -Continue ativan, venlafaxine, (14) Depression: Plan: Venlafaxine was increased to 150 twice daily earlier this month by PCP. Euthymic Also has diagnosis oFgeneralized anxiety disorder. Plan \ Admission and Anticipated Discharge Date Admission Date: April 28, 2022 Subjective seen at 9am/ No complaints . denying any chest pain/orthopnea Physical Exam Physical Exam: obese, asleep sitting up in bed, good insight and judgement 95% 3 l NC H/N: dry tongue Chest : CTA CVS : s1 s2 RRR Ext trace edema , VAULT TELLER: grossly intact Results & Data Results & Data ([facility]) Vital Signs (Past 12 Hours) Vital Signs Temp Pulse Pulse Resp BP Pulse Ox O2 Del Method 05/01/22 08:40 Nasal Cannula 05/01/22 07:52 36.4 C L 57 L 20 181/86 H 95 Nasal Cannula 05/01/22 06:54 57 L 05/01/22 02:59 36.7 C 63 18 187/83 H 98 Nasal Cannula 04/30/22 23:49 67 O2 Flow Rate 05/01/22 08:40 3 05/01/22 07:52 2 05/01/22 06:54 05/01/22 02:59 2 04/30/22 23:49 Laboratory Results Abnormal lab results 04/30/22 04/30/22 05/01/22 Range/Units 16:39 20:00 07:12 WBC 4.57 L (4.8-10.8) K/ul RBC 2.82 L (3.93-5.22) M/uL Hgb 9.1 L (12.0-16.0) g/dl Hct 29.6 L (34.1-44.9) % MCV 105.0 H (80.0-100.0) fL MCHC 30.7 L (32.0-36.0) g/dL RDW Std Deviation 51.3 H (36.4-46.3) fL Plt Count 123 L (130-400) K/uL Absolute Nucleated RBC 0.02 H (0-0) K/uL Carbon Dioxide (21-32) mmol/L Creatinine (0.6-1.2) mg/dl BUN/Creatinine Ratio (10-20) Glucose (70-99(Fasting)) mg/dl POC Glucose 106 H 123 H (70-99) mg/dl AST (13-39) U/L ALT (7-52) U/L 05/01/22 Range/Units 07:12 WBC (4.8-10.8) K/ul RBC (3.93-5.22) M/uL Hgb (12.0-16.0) g/dl Hct (34.1-44.9) % MCV (80.0-100.0) fL MCHC (32.0-36.0) g/dL RDW Std Deviation (36.4-46.3) fL Plt Count (130-400) K/uL Absolute Nucleated RBC (0-0) K/uL Carbon Dioxide 33 H (21-32) mmol/L Creatinine 4.43 H D (0.6-1.2) mg/dl BUN/Creatinine Ratio 4.3 L (10-20) Glucose 56 L (70-99(Fasting)) mg/dl POC Glucose (70-99) mg/dl AST 171 H (13-39) U/L ALT 153 H (7-52) U/L Medications Administered Home Medications Medication Instructions Recorded Confirmed Last Taken acetaminophen 500 mg tablet 1,000 mg PO Q6H PRN Pain 11/07/19 04/28/22 04/28/22 (Tylenol Extra Strength) vit B complx, C-iron 8 mg-folic 1 tab PO QDL 02/27/20 04/28/22 03/30/22 acid 800 mcg-D3 1,000 unit-zinc tablet (ProRenal) Oxygen Home #1 ea 02/29/20 04/08/22 Unknown blood-glucose meter (OneTouch #1 ea 11/27/20 04/08/22 Unknown Verio Meter) lancets 33 gauge (OneTouch Delica #100 ea 11/27/20 04/08/22 Unknown Lancets) calcium acetate 667 mg tablet 667 mg PO UD 12/17/20 04/28/22 03/30/22 ibuprofen 600 mg tablet 600 mg PO BID #60 tabs 01/03/21 04/28/22 04/28/22 bumetanide 2 mg tablet 4 mg PO BID 10/14/21 04/28/22 03/30/22 ondansetron 8 mg disintegrating 8 mg PO Q8H PRN Nausea #90 tabs 11/27/21 04/28/22 04/28/22 tablet lactulose 10 gram/15 mL oral 15 ml PO DAILY PRN Constipation 01/16/22 04/28/22 Unknown solution pantoprazole 40 mg tablet,delayed 40 mg PO BID 90 days #180 tabs 01/28/22 04/28/22 04/28/22 release tramadol 50 mg tablet 50 mg PO BID #60 tabs 01/29/22 04/28/22 04/28/22 lorazepam 0.5 mg tablet 0.5 mg PO BID PRN anxiety; 01/30/22 04/28/22 Unknown difficulty swallowing #30 tabs blood sugar diagnostic (OneTouch #300 ea 03/18/22 04/08/22 Unknown Verio test strips) carvedilol 12.5 mg tablet (Coreg) 12.5 mg PO BID #180 tabs 03/18/22 04/28/22 03/30/22 cholecalciferol (vitamin D3) 50 50 mcg PO DAILY #90 caps 03/18/22 04/28/22 04/28/22 mcg (2,000 unit) capsule gabapentin 300 mg capsule 300 mg PO BID #180 caps 03/18/22 04/28/22 04/28/22 atorvastatin 20 mg tablet 20 mg PO HS #90 tabs 03/19/22 04/28/22 03/29/22 levothyroxine 100 mcg tablet 100 mcg PO QPM #90 tabs 03/25/22 04/28/22 03/29/22 sodium zirconium cyclosilicate 5 5 g PO [id number] 03/25/22 04/28/22 03/30/22 gram oral powder packet (Joseekelma) primidone 50 mg tablet 100 mg PO TID 03/30/22 04/28/22 04/28/22 venlafaxine 150 mg tablet,extended 150 mg PO DAILY #90 tabs 04/08/22 04/28/22 04/28/22 release 24 hr Active Medications Generic Name Dose Route Start Last Admin Trade Name Freq PRN Reason Stop Dose Admin Acetaminophen 325 mg 04/30/22 02:41 05/01/22 02:02 Acetaminophen 325 Mg Tab PO 05/30/22 02:20 325 mg Q6H PRN Administration pain or fever Amlodipine Besylate 5 mg 04/29/22 09:00 05/01/22 07:19 Amlodipine Besylate 5 Mg Tab PO 05/29/22 08:59 5 mg QAM ENRIQUETA Administration Atorvastatin Calcium 20 mg 04/28/22 21:00 04/30/22 22:29 Atorvastatin 20 Mg Tab PO 05/28/22 20:59 20 mg HS ENRIQUETA Administration Bumetanide 4 mg 04/28/22 21:00 05/01/22 07:18 Bumetanide 1 Mg Tab PO 05/28/22 20:59 4 mg [id number] ENRIQUETA Administration Calcium Acetate 667 mg 04/28/22 18:00 05/01/22 11:11 Calcium Acetate 667 Mg Cap/Tab PO 05/28/22 17:59 Not Given TIDM ENRIQUETA Carvedilol 12.5 mg 04/28/22 21:00 05/01/22 07:21 Carvedilol 12.5 Mg Tab PO 05/28/22 20:59 Not Given BID ENRIQUETA Gabapentin 300 mg 04/28/22 21:00 05/01/22 07:17 Gabapentin 300 Mg Cap PO 05/28/22 20:59 300 mg BID ENRIQUETA Administration Heparin Sodium (Porcine) 7,500 units 04/28/22 22:00 05/01/22 11:13 Heparin Sod 5,000 Unit/0.5 Ml Vial SQ 05/28/22 21:59 Not Given Q8 ENRIQUETA Insulin Aspart 0 units 04/28/22 16:30 05/01/22 13:00 Insulin Aspart Per Unit SC 05/28/22 16:29 Not Given ACHS ENRIQUETA Levothyroxine Sodium 100 mcg 04/28/22 21:00 04/30/22 22:28 Levothyroxine Sodium 100 Mcg Tablet PO 05/28/22 20:59 100 mcg QPM ENRIQUETA Administration Lorazepam 0.5 mg 04/28/22 16:43 05/01/22 02:02 Lorazepam 0.5 Mg Tab PO 05/28/22 16:42 0.5 mg BID PRN Administration anxiety; difficulty swallowing Miscellaneous 15 - 30 gm 04/28/22 14:45 04/30/22 07:35 Carbohydrates For Hypoglycemia PO 05/28/22 14:44 15 gm UD PRN Administration Hypoglycemia Protocol Pantoprazole Sodium 40 mg 04/28/22 21:00 05/01/22 07:18 Pantoprazole 40 Mg Tab PO 05/28/22 20:59 40 mg BID ENRIQUETA Administration Polyethylene Glycol 17 gm 04/29/22 11:17 04/29/22 11:46 Polyethylene (Miralax) 17 Gm Pack PO 05/29/22 11:16 17 gm DAILY PRN Administration Constipation Primidone 150 mg 04/29/22 14:00 05/01/22 11:12 Primidone 50 Mg Tab PO 05/29/22 13:59 150 mg 1400 ENRIQUETA Administration Primidone 50 mg 04/28/22 21:00 05/01/22 07:18 Primidone 50 Mg Tab PO 05/28/22 20:59 50 mg BID ENRIQUETA Administration Sodium Zirconium Cyclosilicate 5 gm 04/29/22 11:00 05/01/22 11:12 Sodium Zirconium Cyclosilicate 10 Gm Packet PO 05/29/22 10:59 5 gm [id number] ENRIQUETA Administration Tramadol HCl 50 mg 04/28/22 21:00 05/01/22 07:29 Tramadol Hcl 50 Mg Tablet PO 05/28/22 20:59 50 mg BID ENRIQUETA Administration Venlafaxine HCl 150 mg 04/29/22 09:00 05/01/22 07:19 Venlafaxine Hcl Xr 150 Mg Capxr PO 05/29/22 08:59 150 mg DAILY ENRIQUETA Administration Vitamin B Complex/Folic Acid 1 cap 04/29/22 11:30 05/01/22 11:11 Nephrocaps PO 05/29/22 11:29 Not Given QDL ENRIQUETA Vitamin D 2,000 units 04/29/22 09:00 05/01/22 07:20 Cholecalciferol 1,000 Units 25 Mcg Tab PO 05/29/22 08:59 2,000 units DAILY ENRIQUETA Administration PG Care Time/CCT Total # of Minutes Spent Total Time Spent with Patient: Total time spent is greater than 50% in coordination of care (as documented) at patient's floor/unit and/or counseling patient: Coding Level of Care Code 50246 Subseq Hosp Care Lvl 2 Diagnoses Weakness R53.1 Transaminitis R74.01 Hypertension I10 Elevated troponin R77.8 Chronic respiratory failure with hypoxia J96.11 Diabetes mellitus E11.22; N18.6; Z79.4; Z99.2 Chronic kidney disease stage: on chronic dialysis Diabetes mellitus complication detail: with chronic kidney disease Diabetes mellitus complication status: with kidney complications Diabetes mellitus terminal supervisor insulin use: with terminal supervisor use Diabetes mellitus type: type 2 End-stage renal disease on hemodialysis N18.6; Z99.2 Anemia D64.9 Coronary artery disease I25.10 Associated angina: without angina Coronary Disease-Associated Artery/Lesion type: [place] artery [place] vs. transplanted heart: [place] heart Hypothyroidism E03.9 Hypothyroidism type: unspecified Vitamin D deficiency E55.9 Dyslipidemia E78.5 Depression with anxiety F41.8 Depression F32.A (1) Diabetes mellitus Chronic kidney disease stage: on chronic dialysis Diabetes mellitus complication detail: with chronic kidney disease Diabetes mellitus complication status: with kidney complications Diabetes mellitus skilled nursing insulin use: with skilled nursing use Diabetes mellitus type: type 2 Qualified Code(s): E11.22 - Type 2 diabetes mellitus with diabetic chronic kidney disease; N18.6 - End stage renal disease; Z79.4 - laborer marine terminal (current) use of insulin; Z99.2 - Dependence on renal dialysis (2) Coronary artery disease Associated angina: without angina Coronary Disease-Associated Artery/Lesion type: [place] artery [place] vs. transplanted heart: [place] heart Qualified Code(s): I25.10 - Atherosclerotic heart disease of [place] coronary artery without angina pectoris (3) Hypothyroidism Hypothyroidism type: unspecified Qualified Code(s): E03.9 - Hypothyroidism, unspecified
[2022-05-01] MEDS ORDERED: niCARdipine HCL INJ 2.5 MG/ML 10 ML AMP ONE (14:02)
[2022-05-01] MEDS ORDERED: HEPARIN (PORCINE) 1000 UNIT/ML 10 ML (CATH LAB USE ONLY) ONE (14:02)
[2022-05-01] MEDS ORDERED: fentaNYL citrate 100 MCG/2 ML VIAL ONE (14:02)
[2022-05-01] MEDS ORDERED: MIDAZOLAM HCL 1 MG/ML 2ML VIAL ONE (14:02)
--- NOTE | 2022-05-01 14:20 | Pre Anesthesia Assessment ---
Date of Service May 01, 2022 Pre Sedation Assessment Vital Signs Temp Pulse Pulse Resp BP Pulse Ox O2 Del Method 05/01/22 08:40 Nasal Cannula 05/01/22 07:52 36.4 C L 57 L 20 181/86 H 95 Nasal Cannula 05/01/22 06:54 57 L 05/01/22 02:59 36.7 C 63 18 187/83 H 98 Nasal Cannula 04/30/22 23:49 67 04/30/22 23:00 Nasal Cannula 04/30/22 22:13 36.7 C 73 20 177/71 H 96 Nasal Cannula 04/30/22 19:40 36.6 C 74 18 188/76 H 92 Nasal Cannula 04/30/22 16:18 36.7 C 62 20 161/81 H 98 Nasal Cannula 04/30/22 15:32 62 O2 Flow Rate 05/01/22 08:40 3 05/01/22 07:52 2 05/01/22 06:54 05/01/22 02:59 2 04/30/22 23:49 04/30/22 23:00 2 04/30/22 22:13 2 04/30/22 19:40 2 04/30/22 16:18 2 04/30/22 15:32 Cardiovascular + regular rate and + regular rhythm Respiratory + respiratory effort normal Pre-Sedation Airway Assessment Smoking Status: Never smoker Hx Sleep Apnea: Yes Hx Difficult Intubation: No Short, Thick Neck: No Thyromental Distance: > or= 3.5 Finger Breadths Oral Cavity: + Dentures Mallampati Class: III ASA: ASA3 NPO Status Date of Last Intake of Fluids: 04/30/22 Time of Last Intake of Fluids: 20:00 Date of Last Intake of Solid Food: 04/30/22 Time of Last Intake of Solid Foods: 20:00 Procedure Planning Contraindications for Sedation: none Current Medications Reviewed: Yes Notes The planned sedation has been discussed with the patient. Informed Consent was obtained. I have identified the patient, determined the appropriateness of sedation and have assessed the patient immediately prior to the procedure. All medicine(s) and interventions are by my order.
--- NOTE | 2022-05-01 14:24 | Hospitalist Progress Note ---
Date of Service May 01, 2022 Assessment & Plan (1) Weakness: Plan: Essentially this is acute on chronic weakness. Chronic ambulatory dysfunction and recurrent falls chronic weakness noted on the 25 March note by PCP. Palliative care was considered in the last PCP visit about 4 weeks ago. The patient is having difficulty managing at home. This is basically a placement admission.. TSH normal 2.47 COVID-negative yesterday AST/ALT remain elevated, check CK to assess if this is from muscle given how she has lower extremity weakness and LFTs are normal (bili, Alk Phos, INR) -this work up should not delay discharge however. (2) Transaminitis: Plan: -AST, ALT, and alk phos all elevated and slightly higher today -Ammonia normal yesterday -Unsure of the cause at this time, ultrasound of the liver is normal including the bile duct. -Monitor for now -as noted above. (3) Hypertension: Plan: -Was noted to be hypertensive on arrival to the ED with systolics in the 190's BP has remained elevated added amlodipine this morning 04/29 -Continue Bumex, carvedilol, (4) Elevated troponin: Plan: -Initial high sensitivity troponin noted to be 47.9 with two hour repeat at 65.9 , t-wave inversion noted in the inferior and anterolateral leads-the latter is new. With elevated troponin and his EKG changesconsult cardiology TTE 02/27/2020 shows biatrial dilation, LVEF 55 to 60%, moderate pulmonary hypertension and moderate concentric LVH. dec 2018 cardiac catheterization report incomplete in the chart. Has not seen cardiology since 2017 per records we have H/po oericarditis noted in that Feb 2017 card note Patient chest pain-free Troponin 82.8 to 83 today History of CADcontinue carvedilol, Lipitor Add aspirin No symptoms of coronary ischemia -Continue telemetry (5) Chronic respiratory failure with hypoxia: Plan: -Continue baseline O2 at 3L NC, currently stable Seems to be a mixture of pulmonary hypertension and heart failure with preserved ejection fraction Per prior outpatient notes WELL Jan 2020 TTE (6) Diabetes mellitus: Plan: -Does not use home regimen at this time -Was noted to be hypoglycemic in the 50's after admission -Hypoglycemic today and had to be given orange juice. Not on any hypoglycemics/ insulin (7) End-stage renal disease on hemodialysis: Plan: -Completed full session of HD today without complication -Electrolytes currently stable -Nephrology consult placed for HD while admitted, current schedule is TTS -Continue Vitd D, pro renal tabs, sodium zirconium, and calcium acetate (8) Anemia: Plan: -Longstanding hypochromic [id number] level normal 04/28 at 853 folate normal at 22 -Will obtain anemia labs including ferritin, Iron, transferrin, -Patient likely has some aspect of anemia of chronic kidney disease -Continue Vitamin D and pro renal tablet (9) Coronary artery disease: Plan: Not currently on aspirin- start -Continue atorvastatin (10) Hypothyroidism: Plan: -Continue levothyroxine (11) Vitamin D deficiency: Plan: -Continue Vit D (12) Dyslipidemia: Plan: -Continue statin (13) Depression with anxiety: Plan: -Continue ativan, venlafaxine, (14) Depression: Plan: Venlafaxine was increased to 150 twice daily earlier this month by PCP. Euthymic Also has diagnosis oFgeneralized anxiety disorder. 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 Results & Data Results & Data ([facility]) Vital Signs (Past 12 Hours) Vital Signs Temp Pulse Pulse Resp BP Pulse Ox O2 Del Method 05/01/22 08:40 Nasal Cannula 05/01/22 07:52 36.4 C L 57 L 20 181/86 H 95 Nasal Cannula 05/01/22 06:54 57 L 05/01/22 02:59 36.7 C 63 18 187/83 H 98 Nasal Cannula O2 Flow Rate 05/01/22 08:40 3 05/01/22 07:52 2 05/01/22 06:54 05/01/22 02:59 2 PG Care Time/CCT Total # of Minutes Spent Total Time Spent with Patient: Total time spent is greater than 50% in coordination of care (as documented) at patient's floor/unit and/or counseling patient: Coding Level of Care Code 99280 Subseq Hosp Care Lvl 2 Diagnoses Weakness R53.1 Transaminitis R74.01 Hypertension I10 Elevated troponin R77.8 Chronic respiratory failure with hypoxia J96.11 Diabetes mellitus E11.22; N18.6; Z79.4; Z99.2 Chronic kidney disease stage: on chronic dialysis Diabetes mellitus complication detail: with chronic kidney disease Diabetes mellitus complication status: with kidney complications Diabetes mellitus manager long term care insulin use: with [facility] use Diabetes mellitus type: type 2 End-stage renal disease on hemodialysis N18.6; Z99.2 Anemia D64.9 Coronary artery disease I25.10 Associated angina: without angina Coronary Disease-Associated Artery/Lesion type: [place] artery [place] vs. transplanted heart: [place] heart Hypothyroidism E03.9 Hypothyroidism type: unspecified Vitamin D deficiency E55.9 Dyslipidemia E78.5 Depression with anxiety F41.8 Depression F32.A (1) Diabetes mellitus Chronic kidney disease stage: on chronic dialysis Diabetes mellitus complication detail: with chronic kidney disease Diabetes mellitus complication status: with kidney complications Diabetes mellitus manager long term care insulin use: with [facility] use Diabetes mellitus type: type 2 Qualified Code(s): E11.22 - Type 2 diabetes mellitus with diabetic chronic kidney disease; N18.6 - End stage renal disease; Z79.4 - detention (current) use of insulin; Z99.2 - Dependence on renal dialysis (2) Coronary artery disease Associated angina: without angina Coronary Disease-Associated Artery/Lesion type: [place] artery [place] vs. transplanted heart: [place] heart Qualified Code(s): I25.10 - Atherosclerotic heart disease of [place] coronary artery without angina pectoris (3) Hypothyroidism Hypothyroidism type: unspecified Qualified Code(s): E03.9 - Hypothyroidism, unspecified
--- NOTE | 2022-05-01 15:21 | Post Anesthesia Assessment ---
Date of Service May 01, 2022 Post Sedation Assessment Vital Signs Temp Pulse Pulse Resp BP Pulse Ox O2 Del Method 05/01/22 08:40 Nasal Cannula 05/01/22 07:52 36.4 C L 57 L 20 181/86 H 95 Nasal Cannula 05/01/22 06:54 57 L 05/01/22 02:59 36.7 C 63 18 187/83 H 98 Nasal Cannula 04/30/22 23:49 67 04/30/22 23:00 Nasal Cannula 04/30/22 22:13 36.7 C 73 20 177/71 H 96 Nasal Cannula 04/30/22 19:40 36.6 C 74 18 188/76 H 92 Nasal Cannula 04/30/22 16:18 36.7 C 62 20 161/81 H 98 Nasal Cannula 04/30/22 15:32 62 O2 Flow Rate 05/01/22 08:40 3 05/01/22 07:52 2 05/01/22 06:54 05/01/22 02:59 2 04/30/22 23:49 04/30/22 23:00 2 04/30/22 22:13 2 04/30/22 19:40 2 04/30/22 16:18 2 04/30/22 15:32 Recovery Score Activity: Moves 4 extremities Respiration: Deep Breath/Cough Circulation: +/-20% PreAnes Value Consciousness: Fully Awake Oxygen Saturation: > 92% On Room Air Discharge Sedation Level of Care: Fast Track Phase II Post Sedation Plan On clinical assessment, the patient appears to have tolerated the sedation without complications. Patient is recovering as anticipated. Patient will continue to be monitored by nursing and may be discharged when sedation discharge criteria are met per below protocol. Upon Completions of procedure up to 15 minutes continue every 5 minute vital signs and the P.A.R. score; then discharge to a Phase I or Fast Track to Phase II per the following guidelines: * Discharge Patient to appropriate Phase II area if PAR is 8 or greater or return to pre- procedure baseline. The post - procedure orders will be as directed. * If PAR score is less than 8 or not return to pre-procedure baseline then patient will follow Phase I monitoring till PAR is reached for Phase II. The Phase I may be done in procedure room or may call to secure a Phase I area. * If naloxone or flumazenil are used for reversal, hold in Phase I for continued monitoring from when last reversal dose was given for a minimum of 60 minutes or longer pending the nurse and/or physician discretion of patient condition before discharge to Phase II. Please call the Sedation Physician to re-evaluate and complete post-note for discharge to Phase II area. Do NOT discharge from procedure sedation or Phase 1 until post- sedation evaluation note is complete by procedure /sedation MD Sedation Discharge Instructions to be given to the patient at discharge to home.
--- NOTE | 2022-05-01 15:21 | Cardiac Catheterization ---
[facility] Data: Mounter Automatic Cardiac Status Clinical evaluation leading to the procedure CAD Presenation: Non STEMI Diagnostic Physicians Name: Davon William MD Closure Device Recommendations: None Cardiac Cath Procedure Full Procedure Date May 01, 2022 Pre-Procedure Diagnosis Pre-Procedure Diagnosis: Non STEMI AUC Score AUC Score: 8 Post-Procedure Diagnosis Post-Procedure Diagnosis: Normal Coronary Arteries and Elevated Intracardiac Pressures Procedure(s) Performed Procedure(s) Performed: Coronary Angiography and Left Heart Cath Tea Room Manager Davon William MD Slab Miller Operator(s) none Estimated Blood Loss Estimated Blood Loss: 10cc Medication(s) Medication(s): Fentanyl, Heparin, Lidocaine 1%, Nicardipine, Nitroglycerin and Versed Summary of Findings Procedure performed: Cardiac catheterization Staff line leader: Davon William MD Indication: Procedure in detail: The patient was informed of the risks benefits and alternatives to the intended procedure, he understood such and wished to proceed. He was taken to the cardiac catheterization suite in a fasting state. Conscious sedation was administered per protocol and the patient was monitored electrocardiographically throughout today's procedure. The left wrist area was prepped and draped in usual sterile fashion. This area was anesthetized using subcutaneous administration of a lidocaine solution. The left radial artery was then accessed using Seldinger technique, and a arterial sheath was placed at this site over a guidewire. The sheath was used to facilitate passage of the cardiac catheter for coronary angiography and left heart catheterization. Coronary angiogram was then obtained in multiple orthogonal views prior to removal of the catheter. At the conclusion of the procedure the sheath was removed and hemostasis was achieved at the access site using manual pressure. The patient tolerated procedure well, there were no immediate complications. Equipment used: 5 [place]ian JR4, 5 [place]ian JL4 Findings: Coronary angiography Left main: The left main was very short and there was near dual ostial physiology. No significant obstruction. Left anterior descending: Left anterior descending was a large transapical vessel with some tortuosity consistent with hypertensive arteriopathy. There was several small diagonal branches. No obstructive disease in this distribution. Left circumflex: Left circumflex was a dominant system. It produced a very large 1st OM system and a smaller 2nd OM with a relatively small PDA vessel as well. There was some hypertensive arteriopathy. But no obstructive lesions. Right coronary: The right coronary was a nondominant vessel. No obstructive lesions. Impression: Left dominant coronary system No obstructive coronary disease Hemodynamics Rest Ao:: 140/53 mm of mercury Final Ao: 134/60 mm of mercury LV: n/a Recommendations Recommendations: None Specimens Specimens: None Radiation Exposure (mGy) One thousand three hundred seventy Contrast (mls) Forty Procedural Complication(s) None Disposition PCU I attest to the content of the Intraoperative Record and any orders documented therein. Any exceptions are noted below. [facility] Card Cath Procedure Codes Cardiac Catheterization Procedure 1: Cardiovascular Cath Procedures: 60251 Coronaries Moderate Sedation Procedure 1: Sedation/Anesthesia: 73824 Mod Sedation by the same physician;Init15 Min Child Age 5 & Up Procedure 2: Sedation/Anesthesia: 20214 Mod Sedation by the same physician; Ea [id number] Minutes PG Care Time/CCT Total # of Minutes Spent Total Time Spent with Patient: Total time spent is greater than 50% in coordination of care (as documented) at patient's floor/unit and/or counseling patient:
--- NOTE | 2022-05-01 17:03 | Cardiology Progress Note ---
Date of Service May 01, 2022 Assessment & Plan (1) Elevated troponin: (2) Abnormal EKG: Plan 1. Elevated troponin: Not related to an acute coronary syndrome or significant coronary disease. Possibly elevated due to her renal insufficiency and occasional demand ischemia in the setting of severe hypertension. 2. Abnormal EKG: Concerning for ischemia. Catheterization did not demonstrate significant coronary disease. At this point Cardiology will sign off the case. The patient should avoid vigorous use of the left hand and wrist for 7 days. No lifting more than 5 lb with the left hand. Continue aggressive primary prevention of coronary artery disease Please contact the on-call diesel pile hammer operator for any additional concerns or questions Admission and Anticipated Discharge Date Admission Date: April 28, 2022 Subjective this afternoon the patient claimed he feeling well. She denies any discomfort at the left wrist access site. She denies any breathing difficulty. She had some pain in the left leg which she states was reason for admission. No ambulation today. Review of Systems Review of Systems: Per HPI Physical Exam Physical Exam: She is alert and oriented x3. Mood affect appear normal. She answered all questions appropriately. HEENT: Sclerae are anicteric. Pupils are equal and reactive to light and accommodation. Extraocular movements were intact. Neuro: Cranial nerves intact Neck: Redundant neck tissue Lungs: Normal respiratory effort. Cardiac: The rhythm was regular. good perfusion of the left hand. Skin: There are no rashes noted on examination today. Results & Data ([facility]) Vital Signs (Past 12 Hours) Vital Signs Temp Pulse Pulse Pulse Resp BP BP 05/01/22 16:00 05/01/22 16:00 36.7 C 60 18 177/77 H 05/01/22 15:40 61 16 183/67 H 05/01/22 15:29 65 16 175/59 H 05/01/22 08:40 05/01/22 07:52 36.4 C L 57 L 20 181/86 H 05/01/22 06:54 57 L Pulse Ox O2 Del Method O2 Flow Rate 05/01/22 16:00 Nasal Cannula 3 05/01/22 16:00 96 Nasal Cannula 3 05/01/22 15:40 100 Room Air 05/01/22 15:29 100 Room Air 05/01/22 08:40 Nasal Cannula 3 05/01/22 07:52 95 Nasal Cannula 2 05/01/22 06:54 Laboratory Results Abnormal Lab Results 04/30/22 04/30/22 05/01/22 05:57 20:00 07:12 WBC 4.57 L RBC 2.82 L Hgb 9.1 L Hct 29.6 L MCV 105.0 H MCH 32.3 MCHC 30.7 L RDW Std Deviation 51.3 H RDW Coeff of Jared 13.4 Plt Count 123 L MPV 10.0 Absolute Nucleated RBC 0.02 H Nucleated RBC % (auto) 0.4 Sodium Potassium Chloride Carbon Dioxide Anion Gap BUN Creatinine Est Cr Clr Drug Dosing Est GFR ( Amer) Est GFR (Non-Af Amer) BUN/Creatinine Ratio Glucose POC Glucose 123 H Calcium Magnesium Total Bilirubin AST ALT Alkaline Phosphatase Total Creatine Kinase 28 Total Protein Albumin Globulin Albumin/Globulin Ratio 05/01/22 05/01/22 05/01/22 07:12 07:42 11:46 WBC RBC Hgb Hct MCV MCH MCHC RDW Std Deviation RDW Coeff of Jared Plt Count MPV Absolute Nucleated RBC Nucleated RBC % (auto) Sodium 136 Potassium 4.6 Chloride 100 Carbon Dioxide 33 H Anion Gap 3 BUN 19 D Creatinine 4.43 H D Est Cr Clr Drug Dosing 11.0 Est GFR ( Amer) 10.5 Est GFR (Non-Af Amer) 9.0 BUN/Creatinine Ratio 4.3 L Glucose 56 L POC Glucose 72 79 Calcium 8.7 Magnesium 2.3 Total Bilirubin 0.4 AST 171 H ALT 153 H Alkaline Phosphatase 97 Total Creatine Kinase Total Protein 6.3 Albumin 3.4 Globulin 2.9 Albumin/Globulin Ratio 1.2 Diagnostic Findings Cardiac catheterization performed today did not reveal any evidence of obstructive coronary disease. No intervention performed. Essentially normal coronaries. PG Care Time/CCT Total # of Minutes Spent Total Time Spent with Patient: Total time spent is greater than 50% in coordination of care (as documented) at patient's floor/unit and/or counseling patient: Coding Level of Care Code 89723 Subseq Hosp Care Lvl 2 Diagnoses Elevated troponin R77.8 Abnormal EKG R94.31
[2022-05-01 18:51] LABS: Appearance Urine Turbid (Clear); Bacteria Urine Automated 2+ (Negative); Bilirubin Urine Negative (Negative); Blood Urine Negative (Negative); Color Urine Yellow; Epithelial Cell Urine Auto >30 /lpf (0-5); Glucose Urine UA Negative (Negative); Ketones Urine Negative (Negative); Leukocyte Esterase Urine 2+ (Negative); Nitrite Urine Negative (Negative); Protein Urine 2+ (Negative); RBC Urine Automated 0-4 /hpf (0-4); Specific Gravity Urine 1.014 (1.000-1.030); Urobilinogen Urine Negative (Negative); WBC Urine Automated >30 /hpf (0-5); pH Urine 6.5 (4.5-7.5)
[2022-05-01] MEDS: ATORVASTATIN 20 MG TAB PO SCH (20:39)
[2022-05-01] MEDS: LEVOTHYROXINE SODIUM 100 MCG TABLET PO SCH (20:39)
--- NOTE | 2022-05-01 21:26 | Hospitalist Progress Note ---
Date of Service May 01, 2022 Assessment & Plan (1) Weakness: Plan: Essentially this is acute on chronic weakness. Chronic ambulatory dysfunction and recurrent falls chronic weakness noted on the 25 March note by PCP. Palliative care was considered in the last PCP visit about 4 weeks ago. The patient is having difficulty managing at home. This is basically a placement admission.. TSH normal 2.47 COVID-negative. (2) Transaminitis: Plan: -AST, ALT, going down now. today 171, 153 Etio uncertain- ??hypotension during HD outside hospital -Ammonia normal yesterday -Unsure of the cause at this time, ultrasound of the liver is normal including the bile duct. -Monitor for now -as noted above. (3) Hypertension: Plan: -Was noted to be hypertensive on arrival to the ED with systolics in the 190's BP has remained elevated added amlodipine this morning 04/29 raise amplodipine to 10 mg, consder hydralazine -Continue Bumex, carvedilol (4) Elevated troponin: Plan: -Initial high sensitivity troponin noted to be 47.9 with two hour repeat at 65.9 then 85 04/29 , t-wave inversion noted in the inferior and anterolateral leads- the latter is new. With elevated troponin and his EKG changesconsult cardiology TTE 02/27/2020 shows biatrial dilation, LVEF 55 to 60%, moderate pulmonary hypertension and moderate concentric LVH. dec 2018 cardiac catheterization report incomplete in the chart. Has not seen cardiology since 2017 per records we have H/po oericarditis noted in that Feb 2017 card note Patient chest pain-free History of CADcontinue carvedilol, Lipitor Add aspirin No symptoms of coronary ischemia but wall motion abnormality TTE 04/28, NORrmal EF, LA mod dilation, mild LVH wALL MOTION ABNORMALITY ON REPEAT TTE yesterday: telemetry NSr 50s-- Left heart cath this afternoon (5) Chronic respiratory failure with hypoxia: Plan: -Continue baseline O2 at 3L NC, currently stable Seems to be a mixture of pulmonary hypertension and heart failure with preserved ejection fraction Per prior outpatient notes WELL Jan 2020 TTE (6) Diabetes mellitus: Plan: -Does not use home regimen at this time -Was noted to be hypoglycemic in the 50's after admission -Hypoglycemic today and had to be given orange juice. Not on any hypoglycemics/ insulin (7) End-stage renal disease on hemodialysis: Plan: -Completed full session of HD today without complication -Electrolytes currently stable -Nephrology consult placed for HD while admitted, current schedule is TTS -Continue Vitd D, pro renal tabs, sodium zirconium, and calcium acetate (8) Anemia: Plan: -Longstanding hypochromic [id number] level normal 04/28 at 853 folate normal at 22 -Will obtain anemia labs including ferritin, Iron, transferrin, -Patient likely has some aspect of anemia of chronic kidney disease -Continue Vitamin D and pro renal tablet (9) Coronary artery disease: Plan: Not currently on aspirin- start -Continue atorvastatin Cta today (10) Hypothyroidism: Plan: -Continue levothyroxine (11) Vitamin D deficiency: Plan: -Continue Vit D (12) Dyslipidemia: Plan: -Continue statin (13) Depression with anxiety: Plan: -Continue ativan, venlafaxine, (14) Depression: Plan: Venlafaxine was increased to 150 twice daily earlier this month by PCP. Euthymic Also has diagnosis oFgeneralized anxiety disorder. Plan \ Admission and Anticipated Discharge Date Admission Date: April 28, 2022 Results & Data Results & Data ([facility]) Vital Signs (Past 12 Hours) Vital Signs Temp Pulse Pulse Resp BP BP Pulse Ox 05/01/22 20:35 36.6 C 76 17 189/88 H 97 05/01/22 16:00 05/01/22 16:00 36.7 C 60 18 177/77 H 96 05/01/22 15:40 61 16 183/67 H 100 05/01/22 15:29 65 16 175/59 H 100 O2 Del Method O2 Flow Rate 05/01/22 20:35 Nasal Cannula 2 05/01/22 16:00 Nasal Cannula 3 05/01/22 16:00 Nasal Cannula 3 05/01/22 15:40 Room Air 05/01/22 15:29 Room Air PG Care Time/CCT Total # of Minutes Spent Total Time Spent with Patient: Total time spent is greater than 50% in coordination of care (as documented) at patient's floor/unit and/or counseling patient: Coding Diagnoses Weakness R53.1 Transaminitis R74.01 Hypertension I10 Elevated troponin R77.8 Chronic respiratory failure with hypoxia J96.11 Diabetes mellitus E11.22; N18.6; Z79.4; Z99.2 Diabetes mellitus type: type 2 Diabetes mellitus jail insulin use: with jail use Diabetes mellitus complication status: with kidney complications Diabetes mellitus complication detail: with chronic kidney disease Chronic kidney disease stage: on chronic dialysis End-stage renal disease on hemodialysis N18.6; Z99.2 Anemia D64.9 Coronary artery disease I25.10 Coronary Disease-Associated Artery/Lesion type: elim ira artery [place] vs. transplanted heart: elim ira heart Associated angina: without angina Hypothyroidism E03.9 Hypothyroidism type: unspecified Vitamin D deficiency E55.9 Dyslipidemia E78.5 Depression with anxiety F41.8 Depression F32.A (1) Diabetes mellitus Diabetes mellitus type: type 2 Diabetes mellitus jail insulin use: with bed bug exterminator use Diabetes mellitus complication status: with kidney complications Diabetes mellitus complication detail: with chronic kidney disease Chronic kidney disease stage: on chronic dialysis Qualified Code(s): E11.22 - Type 2 diabetes mellitus with diabetic chronic kidney disease; N18.6 - End stage renal disease; Z79.4 - [facility] (current) use of insulin; Z99.2 - Dependence on renal dialysis (2) Coronary artery disease Coronary Disease-Associated Artery/Lesion type: elim ira artery [place] vs. transplanted heart: elim ira heart Associated angina: without angina Qualified Code(s): I25.10 - Atherosclerotic heart disease of elim ira coronary artery without angina pectoris (3) Hypothyroidism Hypothyroidism type: unspecified Qualified Code(s): E03.9 - Hypothyroidism, unspecified
[2022-05-02] MEDS: HEPARIN SOD 5,000 UNIT/0.5 ML VIAL SQ SCH ×3 (04:57→20:21)
[2022-05-02 06:10] LABS: Hematocrit (blood only) 29.7 % (34.1-44.9); Hemoglobin 9.3 g/dl (12.0-16.0)
[2022-05-02] MEDS: DEXTROSE 50% 50 ML SYRINGE IV PRN (07:17)
[2022-05-02 07:30] LABS: BUN Creatinine Ratio 4.4 (10-20); Calcium 8.6 mg/dl (8.5-10.1); Creatinine Clr Calc Pharmacy 8.4 ml/min; Est GFR (African American) 7.4 ml/min; Est GFR (Non-African American) 6.4 ml/min; Ferritin 1345.9 ng/ml (8-388); Potassium 4.9 mmol/L (3.5-5.1)
[2022-05-02] MEDS: INSULIN ASPART PER UNIT SC SCH (07:32)
[2022-05-02] MEDS: CALCIUM ACETATE 667 MG CAP/TAB PO SCH ×3 (07:37→17:08)
[2022-05-02] MEDS: traMADol HCL 50 MG TABLET PO SCH ×2 (07:37→20:15)
[2022-05-02] MEDS: amLODIPine BESYLATE 5 MG TAB PO SCH (07:37)
[2022-05-02] MEDS: BUMETANIDE 1 MG TAB PO SCH ×2 (07:37→17:08)
[2022-05-02] MEDS: carvediloL 12.5 MG TAB PO SCH ×2 (07:38→19:54)
[2022-05-02] MEDS: PANTOprazole 40 MG TAB PO SCH ×2 (07:38→20:08)
[2022-05-02] MEDS: GABAPENTIN 300 MG CAP PO SCH ×2 (07:38→19:56)
[2022-05-02] MEDS: CHOLECALCIFEROL 1,000 UNITS 25 MCG TAB PO SCH (07:38)
[2022-05-02] MEDS: VENLAFAXINE HCL XR 150 MG CAPXR PO SCH (07:38)
[2022-05-02] MEDS: PRIMIDONE 50 MG TAB PO SCH ×3 (07:38→20:09)
--- NOTE | 2022-05-02 08:35 | Nephrology Progress Note ---
Date of Service May 02, 2022 Assessment & Plan (1) End-stage renal disease on hemodialysis: Plan: * ESKD on HD TTS (Rx 4 hours on 180 optiflux, 2 K bath. EDW 92 kg. Qb 350-400) * HD today. HD RN director of corporate sponsorships notified * Continue Lokelma, low K diet and Bumex to manage chronic hyperkalemia * Will recheck PRP in am (2) Anemia: Plan: * Epogen 25438 units with HD today (3) Chronic kidney disease-mineral and bone disorder: Plan: * Renal diet. Continue Phoslo QAC. (4) Hypertension: Plan: * Accelerated BP * Will attempt UF w/ HD today (5) Acute electrocardiogram changes: Plan: * Cardiac cath report reviewed - no significant coronary lesions. Elevated troponin likely due to demand ischemia Admission and Anticipated Discharge Date Admission Date: April 28, 2022 Subjective Mrs. Patrick was evaluated in her hospital room this morning. She c/o GI upset but denies angina or dyspnea. Review of Systems Constitutional: no fever Eyes: no problem reported Ear, Nose, Mouth, Throat: no problem reported Respiratory: no cough and no dyspnea Cardiovascular: no chest pain Gastrointestinal: no abdominal pain Neurologic: no confusion Physical Exam Constitutional: no acute distress Eyes: PERRL, conjunctivae normal, anicteric sclerae ENMT: external ear and nose normal, oropharynx normal Neck: trachea midline, no thyromegaly Respiratory: normal respiratory effort, lungs clear to auscultation Cardiovascular: RRR, no murmur, no edema AVF + bruit Gastrointestinal (Abdomen): normal bowel sounds, soft, nontender, no hepatosplenomegaly Neurologic: awake; not confused Speech / Cognition: normal speech Results & Data ([facility]) Vital Signs (Past 12 Hours) Vital Signs Temp Pulse Pulse Resp BP Pulse Ox O2 Del Method 05/02/22 07:23 36.5 C 62 18 194/76 H 100 Nasal Cannula 05/02/22 07:17 63 05/02/22 04:55 36.7 C 60 16 174/81 H 99 Nasal Cannula 05/02/22 01:28 59 L 05/01/22 21:00 Nasal Cannula 05/01/22 23:21 36.6 C 59 L 16 184/76 H 99 Room Air 05/01/22 20:37 37 C 61 16 190/77 H 97 Nasal Cannula 05/01/22 20:35 36.6 C 76 17 189/88 H 97 Nasal Cannula O2 Flow Rate 05/02/22 07:23 2 05/02/22 07:17 05/02/22 04:55 2 05/02/22 01:28 05/01/22 21:00 2 05/01/22 23:21 05/01/22 20:37 2 05/01/22 20:35 2 Laboratory Results Laboratory Tests 05/02/22 05/02/22 05:29 05:29 Hgb 9.3 L Hct 29.7 L Sodium 134 L Potassium 4.9 Chloride 99 Carbon Dioxide 30 BUN 26 H Creatinine 5.90 H* D Glucose 46 L* Calcium 8.6 Transferrin % Sat 37 Ferritin 1345.9 H PG Care Time/CCT Total # of Minutes Spent Total Time Spent with Patient: Total time spent is greater than 50% in coordination of care (as documented) at patient's floor/unit and/or counseling patient: Coding Level of Care Code 80338 Subseq Hosp Care Lvl 3 Diagnoses End-stage renal disease on hemodialysis N18.6; Z99.2 Anemia D64.9 Chronic kidney disease-mineral and bone disorder N18.9; E83.9; M89.9 Hypertension I10 Acute electrocardiogram changes R94.31
[2022-05-02] MEDS ORDERED: Nursing to Pharmacy Communication SCH (08:45)
[2022-05-02] MEDS: ALUMINUM/MAGNESIUM SUSP 30 ML UDC PO PRN ×3 (08:51→20:35)
[2022-05-02] MEDS ORDERED: amLODIPine BESYLATE 5 MG TAB PO ONE (09:15)
[2022-05-02] MEDS ORDERED: EPOETIN ALFA 10,000 UNITS/ML VIAL IV SCH (10:45)
[2022-05-02] MEDS: NEPHROCAPS PO SCH (12:31)
--- NOTE | 2022-05-02 14:34 | Hospitalist Progress Note ---
Date of Service May 02, 2022 Assessment & Plan (1) Weakness: Plan: Continue physical therapy and Occupational Therapy. Anticipate eventual discharge to SNF facility. (2) Transaminitis: Plan: Serial labs. Liver ultrasound completed April 28 negative for acute findings (3) Hypertension: Plan: Currently on multiple medications for blood pressure control. Amlodipine dosage uptitrated today, May 02 (4) Elevated troponin: Plan: Left heart catheterization completed yesterday, May 01. Normal coronaries found. No evidence of acute AR. (5) Chronic respiratory failure with hypoxia: Plan: Supplemental oxygen per nasal cannula to maintain saturation greater than 90% (6) Diabetes mellitus: Plan: ADA diet. She has actually had hypoglycemic episodes and sliding scale insulin coverage has been discontinued (7) End-stage renal disease on hemodialysis: Plan: Appreciate nephrology consultation and management. Continue hemodialysis schedule as currently ordered (8) Anemia: Plan: Chronic due to end-stage renal disease. Serial lab studies. Transfuse if necessary (9) Coronary artery disease: Plan: Left heart catheterization completed May 01. Coronary arteries are normal effectively ruling out underlying coronary artery disease (10) Hypothyroidism: Plan: Continue current thyroid replacement therapy. Periodic thyroid labs (11) Vitamin D deficiency: Plan: Continue vitamin D replacement (12) Dyslipidemia: Plan: Continue current medication treatment plan (13) Depression with anxiety: Plan: Stable with current medication treatment plan (14) Depression: Plan: Stable with current medication treatment plan Plan Anticipate eventual discharge to [facility] Admission and Anticipated Discharge Date Admission Date: April 28, 2022 Subjective The patient was seen in dialysis. She is somewhat lethargic but arousable and appears to be oriented. She has some right upper quadrant tenderness but liver ultrasound done April 28 was negative. Heart catheterization yesterday, May 01, revealed normal coronary arteries. Troponin is elevated but there is no evidence of acute AR. Sliding scale insulin coverage discontinued due to recurrent hypoglycemia. Amlodipine dosage increased for better blood pressure control. Anticipate eventual discharge to [facility]. Review of Systems Review of Systems: Constitutional-no fever or chills ENT-no blurred vision, no double vision, no epistaxis, no sore throat Respiratory-no cough, no wheezing, no shortness of breath Cardiac-no palpitations, no chest pain, no syncope GI- nausea, no vomiting, no diarrhea, no melena, no hematochezia -no urinary retention, no urinary incontinence, no dysuria, no hematuria Musculoskeletal-no joint pain, no muscle tenderness Skin-no bruising, no rashes, no pruritus Neuro-no isolated weakness, no paresthesia, no weakness Psych-no depression, no anxiety Physical Exam Physical Exam: General-somewhat lethargic but arousable and able to speak clearly. She appears to be oriented. Obese HEENT-head atraumatic and normocephalic, pupils equal and reactive to light, extraocular muscles intact Neck-no lymphadenopathy or thyromegaly, trachea midline Chest-clear anteriorly. No wheezing or rhonchi Cardiac-regular rate and rhythm, normal S1 and S2 Abdomen-normal bowel sounds, no hepatosplenomegaly. Some tenderness to palpation noted in the epigastric region and right upper quadrant area Extremities-bilateral chronic venous stasis changes Neuro-generalized weakness. No focal deficits noted Psych-unable to assess Results & Data Results & Data ([facility]) Vital Signs (Past 12 Hours) Vital Signs Temp Pulse Pulse Resp BP BP BP 05/02/22 13:00 36.8 C 62 138/65 05/02/22 12:30 62 139/66 05/02/22 13:21 36.4 C L 73 16 125/46 L 05/02/22 12:00 64 124/59 L 05/02/22 11:30 62 133/39 L 05/02/22 11:00 63 104/51 L 05/02/22 10:30 69 119/46 L 05/02/22 10:00 88 185/94 H 05/02/22 09:35 64 179/73 H 05/02/22 09:26 36.7 C 65 05/02/22 09:14 05/02/22 07:23 36.5 C 62 18 194/76 H 05/02/22 07:17 63 05/02/22 04:55 36.7 C 60 16 174/81 H Pulse Ox O2 Del Method O2 Flow Rate 05/02/22 13:00 05/02/22 12:30 05/02/22 13:21 93 Nasal Cannula 2 05/02/22 12:00 05/02/22 11:30 05/02/22 11:00 05/02/22 10:30 05/02/22 10:00 05/02/22 09:35 05/02/22 09:26 05/02/22 09:14 Nasal Cannula 2 05/02/22 07:23 100 Nasal Cannula 2 05/02/22 07:17 05/02/22 04:55 99 Nasal Cannula 2 Laboratory Results 05/02/22 05:29 05/02/22 05:29 PG Care Time/CCT Total # of Minutes Spent Total Time Spent with Patient: Total time spent is greater than 50% in coordination of care (as documented) at patient's floor/unit and/or counseling patient: Coding Level of Care Code 63772 Subseq Hosp Care Lvl 3 Diagnoses Weakness R53.1 Transaminitis R74.01 Hypertension I10 Elevated troponin R77.8 Chronic respiratory failure with hypoxia J96.11 Diabetes mellitus E11.22; N18.6; Z79.4; Z99.2 Diabetes mellitus type: type 2 Diabetes mellitus usp insulin use: with usp use Diabetes mellitus complication status: with kidney complications Diabetes mellitus complication detail: with chronic kidney disease Chronic kidney disease stage: on chronic dialysis End-stage renal disease on hemodialysis N18.6; Z99.2 Anemia D64.9 Coronary artery disease I25.10 Coronary Disease-Associated Artery/Lesion type: [place] artery [place] vs. transplanted heart: [place] heart Associated angina: without angina Hypothyroidism E03.9 Hypothyroidism type: unspecified Vitamin D deficiency E55.9 Dyslipidemia E78.5 Depression with anxiety F41.8 Depression F32.A (1) Diabetes mellitus Diabetes mellitus type: type 2 Diabetes mellitus rn invasive insulin use: with rn invasive use Diabetes mellitus complication status: with kidney complications Diabetes mellitus complication detail: with chronic kidney disease Chronic kidney disease stage: on chronic dialysis Qualified Code(s): E11.22 - Type 2 diabetes mellitus with diabetic chronic kidney disease; N18.6 - End stage renal disease; 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 transplanted heart: [place] heart Associated angina: without angina Qualified Code(s): I25.10 - Atherosclerotic heart disease of [place] coronary artery without angina pectoris (3) Hypothyroidism Hypothyroidism type: unspecified Qualified Code(s): E03.9 - Hypothyroidism, unspecified
[2022-05-02] MEDS: ATORVASTATIN 20 MG TAB PO SCH (19:53)
[2022-05-02] MEDS: LEVOTHYROXINE SODIUM 100 MCG TABLET PO SCH (20:07)
[2022-05-02] MEDS: LORazepam 0.5 MG TAB PO PRN (20:15)
[2022-05-03] MEDS: HEPARIN SOD 5,000 UNIT/0.5 ML VIAL SQ SCH ×2 (05:46→20:14)
[2022-05-03 06:27] LABS: BUN Creatinine Ratio 3.8 (10-20); Calcium 8.8 mg/dl (8.5-10.1); Creatinine Clr Calc Pharmacy 10.3 ml/min; Est GFR (African American) 9.8 ml/min; Est GFR (Non-African American) 8.5 ml/min; Potassium 4.3 mmol/L (3.5-5.1)
[2022-05-03 06:33] LABS: Hematocrit (blood only) 29.7 % (34.1-44.9); Hemoglobin 9.2 g/dl (12.0-16.0); Mean Corpuscular Hemoglobin 31.9 pg (25.0-34.0); Mean Corpuscular Volume 103.1 fL (80.0-100.0); Mean Platelet Volume 10.2 fL (9.4-12.3); Nucleated RBC # (auto) 0.05 K/uL (0-0); Nucleated RBC % (auto) 0.9 %; Platelet Count 144 K/uL (130-400); RDW Coefficient of Variation 13.7 % (11.5-14.5); RDW Standard Deviation 51.1 fL (36.4-46.3); Red Blood Count 2.88 M/uL (3.93-5.22); White Blood Count 5.47 K/ul (4.8-10.8)
[2022-05-03] MEDS: DEXTROSE 50% 50 ML SYRINGE IV PRN (06:33)
[2022-05-03] MEDS: CALCIUM ACETATE 667 MG CAP/TAB PO SCH ×3 (08:45→15:08)
[2022-05-03] MEDS: PANTOprazole 40 MG TAB PO SCH ×2 (08:45→20:15)
[2022-05-03] MEDS: amLODIPine BESYLATE 5 MG TAB PO SCH (08:45)
[2022-05-03] MEDS: GABAPENTIN 300 MG CAP PO SCH ×2 (08:45→20:14)
[2022-05-03] MEDS: CHOLECALCIFEROL 1,000 UNITS 25 MCG TAB PO SCH (08:45)
[2022-05-03] MEDS: traMADol HCL 50 MG TABLET PO SCH ×2 (08:45→20:21)
[2022-05-03] MEDS: VENLAFAXINE HCL XR 75 MG CAPXR PO SCH (08:45)
[2022-05-03] MEDS: PRIMIDONE 50 MG TAB PO SCH ×3 (08:45→20:13)
[2022-05-03] MEDS: BUMETANIDE 1 MG TAB PO SCH ×2 (08:45→15:08)
[2022-05-03] MEDS: carvediloL 12.5 MG TAB PO SCH ×3 (08:46→20:22)
--- NOTE | 2022-05-03 08:46 | Nephrology Progress Note ---
Date of Service May 03, 2022 Assessment & Plan (1) End-stage renal disease on hemodialysis: Plan: * ESKD on HD TTS (Rx 4 hours on 180 optiflux, 2 K bath. EDW 92 kg. Qb 350-400) * No acute indication for HD today. Will plan next treatment for Wednesday * Continue Lokelma, low K diet and Bumex to manage chronic hyperkalemia * Will recheck PRP in am (2) Anemia: Plan: * Epogen 20236 units with HD today (3) Chronic kidney disease-mineral and bone disorder: Plan: * Renal diet. Continue Phoslo QAC. (4) Hypertension: Plan: * BP has improved following UF on HD (5) Acute electrocardiogram changes: Plan: * Cardiac cath report reviewed - no significant coronary lesions. Elevated troponin likely due to demand ischemia Admission and Anticipated Discharge Date Admission Date: April 28, 2022 Subjective Mrs. Patrick was evaluated in her hospital room this morning. She was sitting in a chair eating breakfast. She denied angina or dyspnea but reports a 2 week h/o mild diplopia. Head CT 04/28/22 was negative for hemorrhage or mass. Mrs. Patrick was dialyzed Wednesday for 2.3 L UF. There were no complications Review of Systems Constitutional: no fever Eyes: no problem reported Ear, Nose, Mouth, Throat: no problem reported Respiratory: no cough and no dyspnea Cardiovascular: no chest pain Gastrointestinal: no abdominal pain Neurologic: no confusion Physical Exam Constitutional: no acute distress Eyes: PERRL, conjunctivae normal, anicteric sclerae ENMT: external ear and nose normal, oropharynx normal Neck: trachea midline, no thyromegaly Respiratory: normal respiratory effort, lungs clear to auscultation Cardiovascular: RRR, no murmur, no edema AVF + bruit Gastrointestinal (Abdomen): normal bowel sounds, soft, nontender, no hepatosplenomegaly Neurologic: awake; not confused Speech / Cognition: normal speech Results & Data ([facility]) Vital Signs (Past 12 Hours) Vital Signs Temp Pulse Pulse Pulse Resp BP Pulse Ox 05/03/22 07:34 36.5 C 61 18 156/62 H 97 05/03/22 03:45 36.5 C 61 18 155/66 H 100 05/02/22 23:00 36.8 C 66 18 130/57 L 99 05/02/22 22:58 62 O2 Del Method O2 Flow Rate 05/03/22 07:34 Nasal Cannula 2 05/03/22 03:45 Nasal Cannula 2 05/02/22 23:00 Nasal Cannula 2 05/02/22 22:58 Laboratory Results Laboratory Tests 05/03/22 05/03/22 05:32 05:32 WBC 5.47 Hgb 9.2 L Hct 29.7 L Plt Count 144 Sodium 135 L Potassium 4.3 Chloride 100 Carbon Dioxide 30 BUN 18 Creatinine 4.68 H* D Glucose 50 L* PG Care Time/CCT Total # of Minutes Spent Total Time Spent with Patient: Total time spent is greater than 50% in coordination of care (as documented) at patient's floor/unit and/or counseling patient: Coding Level of Care Code 82403 Subseq Hosp Care Lvl 3 Diagnoses End-stage renal disease on hemodialysis N18.6; Z99.2 Anemia D64.9 Chronic kidney disease-mineral and bone disorder N18.9; E83.9; M89.9 Hypertension I10 Acute electrocardiogram changes R94.31
[2022-05-03] MEDS ORDERED: GLUCAGON FOR INJ 1 MG VIAL SQ PRN (10:45)
[2022-05-03] MEDS: NEPHROCAPS PO SCH (12:14)
[2022-05-03] MEDS: SODIUM ZIRCONIUM CYCLOSILICATE 10 GM PACKET PO SCH (12:15)
--- NOTE | 2022-05-03 14:46 | Hospitalist Progress Note ---
Date of Service May 03, 2022 Assessment & Plan (1) Weakness: Plan: Continue physical therapy and Occupational Therapy. Anticipate eventual discharge to SNF facility. (2) Transaminitis: Plan: Serial labs. Liver ultrasound completed April 28 negative for acute findings (3) Hypertension: Plan: Currently on multiple medications for blood pressure control. Amlodipine dosage uptitrated on May 02 has helped (4) Elevated troponin: Plan: Left heart catheterization completed on May 01. Normal coronaries found. No evidence of acute [place]. (5) Chronic respiratory failure with hypoxia: Plan: Supplemental oxygen per nasal cannula to maintain saturation greater than 90% (6) Diabetes mellitus: Plan: ADA diet. She has actually had hypoglycemic episodes and sliding scale insulin coverage has been discontinued. Glucagon subcutaneously as needed for hypoglycemia. Bedtime snack including protein (7) End-stage renal disease on hemodialysis: Plan: Appreciate nephrology consultation and management. Continue hemodialysis schedule as currently ordered (8) Anemia: Plan: Chronic due to end-stage renal disease. Serial lab studies. Transfuse if necessary (9) Coronary artery disease: Plan: Left heart catheterization completed May 01. Coronary arteries are normal effectively ruling out underlying coronary artery disease (10) Hypothyroidism: Plan: Continue current thyroid replacement therapy. Periodic thyroid labs (11) Vitamin D deficiency: Plan: Continue vitamin D replacement (12) Dyslipidemia: Plan: Continue current medication treatment plan (13) Depression with anxiety: Plan: Stable with current medication treatment plan (14) Depression: Plan: Stable with current medication treatment plan Plan Anticipate eventual discharge to [facility] when arrangements finalized Admission and Anticipated Discharge Date Admission Date: April 28, 2022 Subjective Alert and oriented. is also present in the room. She was hypoglycemic again this morning. Will administer glucagon subcutaneously as needed. I ensured she was receiving a bedtime snack that included protein. PT and OT have recommended SNF placement, probably at [facility] which is pending. Blood pressure is much improved after amlodipine uptitrated on May 02. Left heart catheterization May 01 this admission was unremarkable. She continues with hemodialysis per nephrology on Wednesday. Review of Systems Review of Systems: Constitutional-no fever or chills ENT-no blurred vision, no double vision, no epistaxis, no sore throat Respiratory-no cough, no wheezing, no shortness of breath Cardiac-no palpitations, no chest pain, no syncope GI- nausea, no vomiting, no diarrhea, no melena, no hematochezia -no urinary retention, no urinary incontinence, no dysuria, no hematuria Musculoskeletal-no joint pain, no muscle tenderness Skin-no bruising, no rashes, no pruritus Neuro-no isolated weakness, no paresthesia, no weakness Psych-no depression, no anxiety Physical Exam Physical Exam: General-somewhat lethargic but arousable and able to speak clearly. She appears to be oriented. Obese HEENT-head atraumatic and normocephalic, pupils equal and reactive to light, extraocular muscles intact Neck-no lymphadenopathy or thyromegaly, trachea midline Chest-clear anteriorly. No wheezing or rhonchi Cardiac-regular rate and rhythm, normal S1 and S2 Abdomen-normal bowel sounds, no hepatosplenomegaly. Some tenderness to palpation noted in the epigastric region and right upper quadrant area Extremities-bilateral chronic venous stasis changes Neuro-generalized weakness. No focal deficits noted Psych-unable to assess Results & Data Results & Data ([facility]) Vital Signs (Past 12 Hours) Vital Signs Temp Pulse Pulse Resp BP Pulse Ox O2 Del Method 05/03/22 11:33 36.8 C 58 L 18 148/69 H 100 Nasal Cannula 05/03/22 09:33 Nasal Cannula 05/03/22 07:34 36.5 C 61 18 156/62 H 97 Nasal Cannula 05/03/22 03:45 36.5 C 61 18 155/66 H 100 Nasal Cannula O2 Flow Rate 05/03/22 11:33 2 05/03/22 09:33 2 05/03/22 07:34 2 05/03/22 03:45 2 Laboratory Results 05/03/22 05:32 05/03/22 05:32 PG Care Time/CCT Total # of Minutes Spent Total Time Spent with Patient: Total time spent is greater than 50% in coordination of care (as documented) at patient's floor/unit and/or counseling patient: Coding Level of Care Code 82966 Subseq Hosp Care Lvl 3 Diagnoses Weakness R53.1 Transaminitis R74.01 Hypertension I10 Elevated troponin R77.8 Chronic respiratory failure with hypoxia J96.11 Diabetes mellitus E11.22; N18.6; Z79.4; Z99.2 Diabetes mellitus type: type 2 Diabetes mellitus usp insulin use: with usp use Diabetes mellitus complication status: with kidney complications Diabetes mellitus complication detail: with chronic kidney disease Chronic kidney disease stage: on chronic dialysis End-stage renal disease on hemodialysis N18.6; Z99.2 Anemia D64.9 Coronary artery disease I25.10 Coronary Disease-Associated Artery/Lesion type: [place] artery [place] vs. transplanted heart: [place] heart Associated angina: without angina Hypothyroidism E03.9 Hypothyroidism type: unspecified Vitamin D deficiency E55.9 Dyslipidemia E78.5 Depression with anxiety F41.8 Depression F32.A (1) Diabetes mellitus Diabetes mellitus type: type 2 Diabetes mellitus superintendent [employer] insulin use: with superintendent [employer] use Diabetes mellitus complication status: with kidney complications Diabetes mellitus complication detail: with chronic kidney disease Chronic kidney disease stage: on chronic dialysis Qualified Code(s): E11.22 - Type 2 diabetes mellitus with diabetic chronic kidney disease; N18.6 - End stage renal disease; Z79.4 - custodial (current) use of insulin; Z99.2 - Dependence on renal dialysis (2) Coronary artery disease Coronary Disease-Associated Artery/Lesion type: [place] artery [place] vs. transplanted heart: [place] heart Associated angina: without angina Qualified Code(s): I25.10 - Atherosclerotic heart disease of [place] coronary artery without angina pectoris (3) Hypothyroidism Hypothyroidism type: unspecified Qualified Code(s): E03.9 - Hypothyroidism, unspecified
[2022-05-03] MEDS: LEVOTHYROXINE SODIUM 100 MCG TABLET PO SCH (20:14)
[2022-05-03] MEDS: ATORVASTATIN 20 MG TAB PO SCH (20:14)
[2022-05-04 06:52] LABS: Hematocrit (blood only) 29.1 % (34.1-44.9); Hemoglobin 9.2 g/dl (12.0-16.0); Mean Corpuscular Hemoglobin 32.7 pg (25.0-34.0); Mean Corpuscular Hgb Conc 31.6 g/dL (32.0-36.0); Mean Corpuscular Volume 103.6 fL (80.0-100.0); Mean Platelet Volume 10.4 fL (9.4-12.3); Nucleated RBC # (auto) 0.06 K/uL (0-0); Nucleated RBC % (auto) 1.3 %; Platelet Count 132 K/uL (130-400); RDW Coefficient of Variation 13.9 % (11.5-14.5); RDW Standard Deviation 51.8 fL (36.4-46.3); Red Blood Count 2.81 M/uL (3.93-5.22); White Blood Count 4.55 K/ul (4.8-10.8)
[2022-05-04 07:20] LABS: BUN Creatinine Ratio 4.5 (10-20); Calcium 8.9 mg/dl (8.5-10.1); Creatinine Clr Calc Pharmacy 7.7 ml/min; Est GFR (African American) 6.9 ml/min; Est GFR (Non-African American) 5.9 ml/min; Potassium 4.3 mmol/L (3.5-5.1)
[2022-05-04] MEDS: CALCIUM ACETATE 667 MG CAP/TAB PO SCH ×3 (08:14→16:50)
[2022-05-04] MEDS: GABAPENTIN 300 MG CAP PO SCH ×2 (08:25→21:58)
[2022-05-04] MEDS: PRIMIDONE 50 MG TAB PO SCH ×3 (08:27→21:57)
[2022-05-04] MEDS: CHOLECALCIFEROL 1,000 UNITS 25 MCG TAB PO SCH (08:29)
[2022-05-04] MEDS: carvediloL 12.5 MG TAB PO SCH ×2 (08:29→23:36)
[2022-05-04] MEDS: amLODIPine BESYLATE 5 MG TAB PO SCH (08:30)
[2022-05-04] MEDS: traMADol HCL 50 MG TABLET PO SCH ×2 (08:31→21:55)
[2022-05-04] MEDS: VENLAFAXINE HCL XR 75 MG CAPXR PO SCH (08:33)
[2022-05-04] MEDS: BUMETANIDE 1 MG TAB PO SCH ×2 (08:34→16:50)
--- NOTE | 2022-05-04 08:34 | Nephrology Progress Note ---
Date of Service May 04, 2022 Assessment & Plan (1) End-stage renal disease on hemodialysis: Plan: * ESKD on HD TTS (Rx 4 hours on 180 optiflux, 2 K bath. EDW 92 kg. Qb 350-400) * No acute indication for HD today. Will plan next treatment for Wednesday * Continue Lokelma, low K diet and Bumex to manage chronic hyperkalemia * Will recheck PRP in am (2) Anemia: Plan: * Epogen 47277 units with HD today (3) Chronic kidney disease-mineral and bone disorder: Plan: * Renal diet. Continue Phoslo QAC. (4) Hypertension: Plan: * BP has improved following UF on HD (5) Acute electrocardiogram changes: Plan: * Cardiac cath report reviewed - no significant coronary lesions. Elevated troponin likely due to demand ischemia Admission and Anticipated Discharge Date Admission Date: April 28, 2022 Subjective Mrs. Patrick was evaluated in her hospital room this morning. She denied angina or dyspnea. She reports that her diplopia is mildly improved. Mrs. Patrick has been OOB to the [facility]. She is looking forward to PT today Review of Systems Constitutional: no fever Eyes: no problem reported Ear, Nose, Mouth, Throat: no problem reported Respiratory: no cough and no dyspnea Cardiovascular: no chest pain Gastrointestinal: no abdominal pain Neurologic: no confusion Physical Exam Constitutional: no acute distress Eyes: PERRL, conjunctivae normal, anicteric sclerae ENMT: external ear and nose normal, oropharynx normal Neck: trachea midline, no thyromegaly Respiratory: normal respiratory effort, lungs clear to auscultation Cardiovascular: RRR, no murmur, no edema Gastrointestinal (Abdomen): normal bowel sounds, soft, nontender, no hepatosplenomegaly Neurologic: awake; not confused Speech / Cognition: normal speech Results & Data ([facility]) Vital Signs (Past 12 Hours) Vital Signs Temp Pulse Pulse Pulse Resp BP Pulse Ox 05/04/22 07:58 36.7 C 62 16 159/65 H 05/04/22 06:45 59 L 05/04/22 03:12 36.8 C 63 18 159/65 H 98 05/03/22 21:00 05/03/22 22:52 36.4 C L 61 18 151/56 H 98 O2 Del Method O2 Flow Rate 05/04/22 07:58 05/04/22 06:45 05/04/22 03:12 Nasal Cannula 2 05/03/22 21:00 Nasal Cannula 2 05/03/22 22:52 Nasal Cannula 2 Laboratory Results Laboratory Tests 05/04/22 05/04/22 05:40 05:40 WBC 4.55 L Hgb 9.2 L Hct 29.1 L Plt Count 132 Sodium 132 L Potassium 4.3 Chloride 98 Carbon Dioxide 31 BUN 28 H Creatinine 6.27 H* D Glucose 110 H Calcium 8.9 PG Care Time/CCT Total # of Minutes Spent Total Time Spent with Patient: Total time spent is greater than 50% in coordination of care (as documented) at patient's floor/unit and/or counseling patient: Coding Level of Care Code 27098 Subseq Hosp Care Lvl 3 Diagnoses End-stage renal disease on hemodialysis N18.6; Z99.2 Anemia D64.9 Chronic kidney disease-mineral and bone disorder N18.9; E83.9; M89.9 Hypertension I10 Acute electrocardiogram changes R94.31
[2022-05-04] MEDS: HEPARIN SOD 5,000 UNIT/0.5 ML VIAL SQ SCH ×2 (08:36→21:59)
[2022-05-04] MEDS: PANTOprazole 40 MG TAB PO SCH ×2 (08:37→21:58)
--- NOTE | 2022-05-04 12:37 | Hospitalist Progress Note ---
Date of Service May 04, 2022 Assessment & Plan (1) Weakness: Plan: Patient admitted to the hospital on account of worsening generalized weakness There has been some improvement with PT Continue physical therapy and Occupational Therapy. Anticipate eventual discharge to SNF facility. (2) Transaminitis: Plan: Serial labs. Liver ultrasound completed April 28 negative for acute findings (3) Hypertension: Plan: Currently on multiple medications for blood pressure control. Amlodipine dosage uptitrated on May 02 has helped (4) Elevated troponin: Plan: Left heart catheterization completed on May 01. Normal coronaries found. No evidence of acute [place]. (5) Chronic respiratory failure with hypoxia: Plan: Supplemental oxygen per nasal cannula to maintain saturation greater than 90% (6) Diabetes mellitus: Plan: ADA diet. She has actually had hypoglycemic episodes and sliding scale insulin coverage has been discontinued. Glucagon subcutaneously as needed for hypoglycemia. Bedtime snack including protein (7) End-stage renal disease on hemodialysis: Plan: Appreciate nephrology consultation and management. Continue hemodialysis schedule as currently ordered (8) Anemia: Plan: Chronic due to end-stage renal disease. Serial lab studies. Transfuse if necessary (9) Coronary artery disease: Plan: Left heart catheterization completed May 01. Coronary arteries are normal effectively ruling out underlying coronary artery disease (10) Hypothyroidism: Plan: Continue current thyroid replacement therapy. Periodic thyroid labs (11) Vitamin D deficiency: Plan: Continue vitamin D replacement (12) Dyslipidemia: Plan: Continue current medication treatment plan (13) Depression with anxiety: Plan: Stable with current medication treatment plan (14) Depression: Plan: Stable with current medication treatment plan Plan Anticipate eventual discharge to [facility] care when arrangements finalized Admission and Anticipated Discharge Date Admission Date: April 28, 2022 Subjective patient seen and examined, still feels weak, but much improved, legs also still swollen Review of Systems Review of Systems: All systems reviewed are negative, apart from the ones contained in the history. Physical Exam Physical Exam: The patient is awake, alert and oriented 3, well developed and well nourished, normocephalic and atraumatic, lying in bed and in no acute distress. HEENT--PERRL, EOMI, mucous membranes and oropharynx mildly dry Neck--supple. No JVD. No bruits. Thyroid normal, trachea midline, no adenopathy. Heart--normal S1 and S2. No murmurs, rubs or gallops. Lungs--clear bilaterally, no respiratory distress, no accessory muscle use. Abdomen--normal bowel sounds and soft. Mild epigastric and left sided abdominal pain Extremities--bilateral leg edema Dermatologic--normal skin turgor, normal color, no abnormal lymph nodes, no rash. Neurologic--cranial nerves II through XII grossly intact. Rheumatologic--normal range of motion. Psychiatric--normal affect. Results & Data Results & Data ([facility]) Vital Signs (Past 12 Hours) Vital Signs Temp Pulse Pulse Pulse Resp BP Pulse Ox 05/04/22 11:23 98.4 F 64 16 151/74 H 94 05/04/22 08:00 05/04/22 07:58 98.1 F 62 16 159/65 H 05/04/22 06:45 59 L 05/04/22 03:12 98.2 F 63 18 159/65 H 98 O2 Del Method O2 Flow Rate 05/04/22 11:23 Nasal Cannula 2 05/04/22 08:00 Nasal Cannula 2 05/04/22 07:58 05/04/22 06:45 05/04/22 03:12 Nasal Cannula 2 PG Care Time/CCT Total # of Minutes Spent Total Time Spent with Patient: Total time spent is greater than 50% in coordination of care (as documented) at patient's floor/unit and/or counseling patient: Coding Level of Care Code 47711 Subseq Hosp Care Lvl 2 Diagnoses Weakness R53.1 Transaminitis R74.01 Hypertension I10 Elevated troponin R77.8 Chronic respiratory failure with hypoxia J96.11 Diabetes mellitus E11.22; N18.6; Z79.4; Z99.2 Diabetes mellitus type: type 2 Diabetes mellitus senior care insulin use: with return checker use Diabetes mellitus complication status: with kidney complications Diabetes mellitus complication detail: with chronic kidney disease Chronic kidney disease stage: on chronic dialysis End-stage renal disease on hemodialysis N18.6; Z99.2 Anemia D64.9 Coronary artery disease I25.10 Coronary Disease-Associated Artery/Lesion type: [place] artery [place] vs. transplanted heart: [place] heart Associated angina: without angina Hypothyroidism E03.9 Hypothyroidism type: unspecified Vitamin D deficiency E55.9 Dyslipidemia E78.5 Depression with anxiety F41.8 Depression F32.A Time Spent (min) 35 (1) Diabetes mellitus Diabetes mellitus type: type 2 Diabetes mellitus senior care insulin use: with return checker use Diabetes mellitus complication status: with kidney complications Diabetes mellitus complication detail: with chronic kidney disease Chronic kidney disease stage: on chronic dialysis Qualified Code(s): E11.22 - Type 2 diabetes mellitus with diabetic chronic kidney disease; N18.6 - End stage renal disease; Z79.4 - director investor relations (current) use of insulin; Z99.2 - Dependence on renal dialysis (2) Coronary artery disease Coronary Disease-Associated Artery/Lesion type: [place] artery [place] vs. transplanted heart: [place] heart Associated angina: without angina Qualified Code(s): I25.10 - Atherosclerotic heart disease of [place] coronary artery without angina pectoris (3) Hypothyroidism Hypothyroidism type: unspecified Qualified Code(s): E03.9 - Hypothyroidism, unspecified
[2022-05-04] MEDS: NEPHROCAPS PO SCH (13:02)
[2022-05-04] MEDS: SODIUM ZIRCONIUM CYCLOSILICATE 10 GM PACKET PO SCH (13:02)
[2022-05-04] MEDS: ALUMINUM/MAGNESIUM SUSP 30 ML UDC PO PRN (14:37)
[2022-05-04] MEDS: ATORVASTATIN 20 MG TAB PO SCH (21:57)
[2022-05-04] MEDS: LEVOTHYROXINE SODIUM 100 MCG TABLET PO SCH (21:58)
[2022-05-04] MEDS ORDERED: hydrALAZINE HCL 20 MG/ML VIAL IV ONE (23:31)
[2022-05-05] MEDS ORDERED: SODIUM CHLORIDE 0.9% 1000ML 1,000 ML IV PRN (07:00)
[2022-05-05] MEDS ORDERED: EPOETIN ALFA 10,000 UNITS/ML VIAL IV ONE (07:00)
[2022-05-05] MEDS ORDERED: HEPARIN SOD (PORCINE) 1000 UNIT/ML IV ONE (07:00)
[2022-05-05 08:29] LABS: BUN Creatinine Ratio 4.9 (10-20); Calcium 8.9 mg/dl (8.5-10.1); Est GFR (African American) 5.1 ml/min; Est GFR (Non-African American) 4.4 ml/min; Potassium 4.6 mmol/L (3.5-5.1)
--- NOTE | 2022-05-05 08:36 | Nephrology Progress Note ---
Date of Service May 05, 2022 Assessment & Plan (1) End-stage renal disease on hemodialysis: Plan: * ESKD on HD TTS (Rx 4 hours on 180 optiflux, 2 K bath. EDW 92 kg. Qb 350-400) * Will provide HD today. Orders placed in EMR and HD RN notified. Will attempt 2 L UF * Continue Lokelma, low K diet and Bumex to manage chronic hyperkalemia. Note that serum potassium has been WNL throughout hospitalization * Will recheck PRP in am (2) Anemia: Plan: * Epogen 77597 units with HD today (3) Chronic kidney disease-mineral and bone disorder: Plan: * Renal diet. Continue Phoslo QAC. (4) Hypertension: Plan: * BP has improved following UF on HD (5) Acute electrocardiogram changes: Plan: * Cardiac cath report reviewed - no significant coronary lesions. Elevated troponin likely due to demand ischemia Admission and Anticipated Discharge Date Admission Date: April 28, 2022 Subjective Mrs. Patrick was evaluated in her hospital room this morning. Diplopia has resolved. Currently c/o shakiness. Was only able to take two shuffling steps using a walker w/ PT assistance yesterday Review of Systems Constitutional: no fever Eyes: no problem reported Ear, Nose, Mouth, Throat: no problem reported Respiratory: no cough and no dyspnea Cardiovascular: no chest pain Gastrointestinal: no abdominal pain Neurologic: no confusion Physical Exam Constitutional: no acute distress Eyes: PERRL, conjunctivae normal, anicteric sclerae ENMT: external ear and nose normal, oropharynx normal Neck: trachea midline, no thyromegaly Respiratory: normal respiratory effort, lungs clear to auscultation Cardiovascular: RRR, no murmur, no edema Gastrointestinal (Abdomen): normal bowel sounds, soft, nontender, no hepatosplenomegaly Neurologic: awake; not confused Speech / Cognition: normal speech Results & Data ([facility]) Vital Signs (Past 12 Hours) Vital Signs Temp Pulse Pulse Resp BP BP Pulse Ox 05/05/22 07:09 36.7 C 64 18 150/60 H 96 05/05/22 03:04 36.6 C 62 18 158/66 H 98 05/05/22 03:06 05/05/22 03:03 59 L 05/05/22 00:00 79 05/05/22 00:41 59 L 162/73 H 05/04/22 23:22 36.7 C 60 18 184/70 H 99 05/04/22 22:06 58 L 192/81 H O2 Del Method O2 Flow Rate 05/05/22 07:09 Nasal Cannula 2 05/05/22 03:04 Nasal Cannula 2 05/05/22 03:06 Nasal Cannula 2 05/05/22 03:03 05/05/22 00:00 05/05/22 00:41 05/04/22 23:22 Nasal Cannula 2 05/04/22 22:06 Laboratory Results Laboratory Tests 05/05/22 07:45 Sodium 131 L Potassium 4.6 Chloride 97 L Carbon Dioxide 28 BUN 39 H Creatinine 8.02 H* D Glucose 102 H PG Care Time/CCT Total # of Minutes Spent Total Time Spent with Patient: Total time spent is greater than 50% in coordination of care (as documented) at patient's floor/unit and/or counseling patient: Coding Level of Care Code 42778 Subseq Hosp Care Lvl 3 Diagnoses End-stage renal disease on hemodialysis N18.6; Z99.2 Anemia D64.9 Chronic kidney disease-mineral and bone disorder N18.9; E83.9; M89.9 Hypertension I10 Acute electrocardiogram changes R94.31
[2022-05-05] MEDS: CALCIUM ACETATE 667 MG CAP/TAB PO SCH ×3 (08:49→17:54)
[2022-05-05] MEDS: amLODIPine BESYLATE 5 MG TAB PO SCH ×2 (08:50→17:54)
[2022-05-05] MEDS: BUMETANIDE 1 MG TAB PO SCH ×2 (08:50→17:54)
[2022-05-05] MEDS: GABAPENTIN 300 MG CAP PO SCH ×2 (08:51→21:13)
[2022-05-05] MEDS: carvediloL 12.5 MG TAB PO SCH ×3 (08:51→21:19)
[2022-05-05] MEDS: CHOLECALCIFEROL 1,000 UNITS 25 MCG TAB PO SCH (08:51)
[2022-05-05] MEDS: PANTOprazole 40 MG TAB PO SCH ×2 (08:52→21:14)
[2022-05-05] MEDS: VENLAFAXINE HCL XR 75 MG CAPXR PO SCH (08:52)
[2022-05-05] MEDS: PRIMIDONE 50 MG TAB PO SCH ×3 (08:52→21:13)
[2022-05-05] MEDS: HEPARIN SOD 5,000 UNIT/0.5 ML VIAL SQ SCH ×2 (08:52→21:14)
[2022-05-05] MEDS: traMADol HCL 50 MG TABLET PO SCH ×2 (09:03→21:16)
[2022-05-05] MEDS: NEPHROCAPS PO SCH (14:51)
--- NOTE | 2022-05-05 15:07 | Hospitalist Progress Note ---
Date of Service May 05, 2022 Assessment & Plan (1) Weakness: Plan: Patient admitted to the hospital on account of worsening generalized weakness There has been some improvement with PT, but barely able to particpate in PT Continue physical therapy and Occupational Therapy. Anticipate eventual discharge to SNF facility. (2) End-stage renal disease on hemodialysis: Plan: On Wednesday, , Wednesday session of HD Appreciate nephrology consultation and management. Continue hemodialysis schedule as currently ordered (3) Transaminitis: Plan: Serial labs. Liver ultrasound completed April 28 negative for acute findings (4) Hypertension: Plan: Currently on multiple medications for blood pressure control. Amlodipine dosage uptitrated on May 02 has helped BP under good control (5) Elevated troponin: Plan: Possibly demand ischemia and ESRD. Left heart catheterization completed on May 01. Normal coronaries found. No evidence of acute VT. (6) Chronic respiratory failure with hypoxia: Plan: Supplemental oxygen per nasal cannula to maintain saturation greater than 90% (7) Diabetes mellitus: Plan: ADA diet. She has actually had hypoglycemic episodes and sliding scale insulin coverage has been discontinued. Glucagon subcutaneously as needed for hypoglycemia. Bedtime snack including protein (8) Anemia: Plan: Chronic due to end-stage renal disease. Serial lab studies. Transfuse if necessary (9) Coronary artery disease: Plan: Left heart catheterization completed May 01. Coronary arteries are normal effectively ruling out underlying coronary artery disease (10) Hypothyroidism: Plan: Continue current thyroid replacement therapy. Periodic thyroid labs (11) Vitamin D deficiency: Plan: Continue vitamin D replacement (12) Dyslipidemia: Plan: Continue current medication treatment plan (13) Depression with anxiety: Plan: Stable with current medication treatment plan (14) Depression: Plan: Stable with current medication treatment plan Plan Anticipate eventual discharge to [facility] when arrangements finalized Admission and Anticipated Discharge Date Admission Date: April 28, 2022 Subjective patient seen and examined, barely able to participate in PT Review of Systems Review of Systems: All systems reviewed are negative, apart from the ones contained in the history. Physical Exam Physical Exam: The patient is awake, alert and oriented 3, well developed and well nourished, normocephalic and atraumatic, lying in bed and in no acute distress. HEENT--PERRL, EOMI, mucous membranes and oropharynx mildly dry Neck--supple. No JVD. No bruits. Thyroid normal, trachea midline, no adenopathy. Heart--normal S1 and S2. No murmurs, rubs or gallops. Lungs--clear bilaterally, no respiratory distress, no accessory muscle use. Abdomen--normal bowel sounds and soft. Mild epigastric and left sided abdominal pain Extremities--bilateral leg edema Dermatologic--normal skin turgor, normal color, no abnormal lymph nodes, no rash. Neurologic--cranial nerves II through XII grossly intact. Rheumatologic--normal range of motion. Psychiatric--normal affect. Results & Data Results & Data ([facility]) Vital Signs (Past 12 Hours) Vital Signs Temp Pulse Pulse Pulse Resp BP BP 05/05/22 13:56 98.4 F 60 150/60 H 05/05/22 13:32 98.4 F 60 124/60 05/05/22 13:08 58 L 124/60 05/05/22 09:00 05/05/22 12:30 60 129/62 05/05/22 12:00 58 L 128/62 05/05/22 11:30 61 129/65 05/05/22 11:00 61 141/60 H 05/05/22 08:00 62 05/05/22 10:30 60 155/69 H 05/05/22 10:13 77 168/77 H 05/05/22 10:01 98.1 F 62 05/05/22 07:09 98.1 F 64 18 150/60 H 05/05/22 03:06 Pulse Ox O2 Del Method O2 Flow Rate 05/05/22 13:56 05/05/22 13:32 05/05/22 13:08 05/05/22 09:00 Nasal Cannula 2 05/05/22 12:30 05/05/22 12:00 05/05/22 11:30 05/05/22 11:00 05/05/22 08:00 05/05/22 10:30 05/05/22 10:13 05/05/22 10:01 05/05/22 07:09 96 Nasal Cannula 2 05/05/22 03:06 Nasal Cannula 2 PG Care Time/CCT Total # of Minutes Spent Total Time Spent with Patient: Total time spent is greater than 50% in coordination of care (as documented) at patient's floor/unit and/or counseling patient: Coding Level of Care Code 83409 Subseq Hosp Care Lvl 2 Diagnoses Weakness R53.1 End-stage renal disease on hemodialysis N18.6; Z99.2 Transaminitis R74.01 Hypertension I10 Elevated troponin R77.8 Chronic respiratory failure with hypoxia J96.11 Diabetes mellitus E11.22; N18.6; Z79.4; Z99.2 Diabetes mellitus type: type 2 Diabetes mellitus chcf insulin use: with chcf use Diabetes mellitus complication status: with kidney complications Diabetes mellitus complication detail: with chronic kidney disease Chronic kidney disease stage: on chronic dialysis Anemia D64.9 Coronary artery disease I25.10 Coronary Disease-Associated Artery/Lesion type: [place] artery [place] vs. transplanted heart: [place] heart Associated angina: without angina Hypothyroidism E03.9 Hypothyroidism type: unspecified Vitamin D deficiency E55.9 Dyslipidemia E78.5 Depression with anxiety F41.8 Depression F32.A Time Spent (min) 35 (1) Diabetes mellitus Diabetes mellitus type: type 2 Diabetes mellitus ferry terminal supervisor insulin use: with ferry terminal supervisor use Diabetes mellitus complication status: with kidney complications Diabetes mellitus complication detail: with chronic kidney disease Chronic kidney disease stage: on chronic dialysis Qualified Code(s): E11.22 - Type 2 diabetes mellitus with diabetic chronic kidney disease; N18.6 - End stage renal disease; Z79.4 - shelter (current) use of insulin; Z99.2 - Dependence on renal dialysis (2) Coronary artery disease Coronary Disease-Associated Artery/Lesion type: [place] artery [place] vs. transplanted heart: [place] heart Associated angina: without angina Qualified Code(s): I25.10 - Atherosclerotic heart disease of [place] coronary artery without angina pectoris (3) Hypothyroidism Hypothyroidism type: unspecified Qualified Code(s): E03.9 - Hypothyroidism, unspecified
[2022-05-05] MEDS: LEVOTHYROXINE SODIUM 100 MCG TABLET PO SCH (21:13)
[2022-05-05] MEDS: ATORVASTATIN 20 MG TAB PO SCH (21:13)
[2022-05-06] MEDS: ACETAMINOPHEN 325 MG TAB PO PRN (00:53)
[2022-05-06] MEDS: LORazepam 0.5 MG TAB PO PRN (00:53)
[2022-05-06 07:50] LABS: Hematocrit (blood only) 30.3 % (34.1-44.9); Hemoglobin 9.3 g/dl (12.0-16.0); Mean Corpuscular Hemoglobin 32.1 pg (25.0-34.0); Mean Corpuscular Hgb Conc 30.7 g/dL (32.0-36.0); Mean Corpuscular Volume 104.5 fL (80.0-100.0); Nucleated RBC # (auto) 0.05 K/uL (0-0); Platelet Count 138 K/uL (130-400); RDW Coefficient of Variation 14.6 % (11.5-14.5); RDW Standard Deviation 52.9 fL (36.4-46.3)
[2022-05-06 08:35] LABS: BUN Creatinine Ratio 4.1 (10-20); Calcium 8.7 mg/dl (8.5-10.1); Creatinine Clr Calc Pharmacy 9.4 ml/min; Est GFR (African American) 8.7 ml/min; Est GFR (Non-African American) 7.5 ml/min; Potassium 4.2 mmol/L (3.5-5.1)
--- NOTE | 2022-05-06 08:45 | Nephrology Progress Note ---
Date of Service May 06, 2022 Assessment & Plan (1) End-stage renal disease on hemodialysis: Plan: * ESKD on HD TTS (Rx 4 hours on 180 optiflux, 2 K bath. EDW 92 kg. Qb 350-400) * No acute indication for HD today. Will plan next treatment for am * Continue Lokelma, low K diet and Bumex to manage chronic hyperkalemia. Note that serum potassium has been WNL throughout hospitalization (2) Anemia: Plan: * Epogen 88607 units with HD today (3) Chronic kidney disease-mineral and bone disorder: Plan: * Renal diet. Continue Phoslo QAC. (4) Hypertension: Plan: * BP has improved following UF on HD (5) Acute electrocardiogram changes: Plan: * Cardiac cath report reviewed - no significant coronary lesions. Elevated troponin likely due to demand ischemia Admission and Anticipated Discharge Date Admission Date: April 28, 2022 Subjective Mrs. Patrick was evaluated in her hospital room this morning. She c/o weakness and is anxious to have PT for strengthening today. Mrs. Patrick was last dialyzed 05/05/22 for 2 L /UF. There were no complications Review of Systems Constitutional: no fever Eyes: no problem reported Ear, Nose, Mouth, Throat: no problem reported Respiratory: no cough and no dyspnea Cardiovascular: no chest pain Gastrointestinal: no abdominal pain Neurologic: no confusion Physical Exam Constitutional: no acute distress Eyes: PERRL, conjunctivae normal, anicteric sclerae ENMT: external ear and nose normal, oropharynx normal Neck: trachea midline, no thyromegaly Respiratory: normal respiratory effort, lungs clear to auscultation Cardiovascular: RRR, no murmur, no edema Gastrointestinal (Abdomen): normal bowel sounds, soft, nontender, no hepatosplenomegaly Neurologic: awake; not confused Speech / Cognition: normal speech Results & Data ([facility]) Vital Signs (Past 12 Hours) Vital Signs Temp Pulse Pulse Pulse Resp BP BP 05/06/22 07:44 36.7 C 60 17 154/61 H 05/06/22 00:00 67 05/06/22 02:16 36.9 C 68 154/64 H 05/05/22 22:56 36.6 C 69 18 180/69 H Pulse Ox O2 Del Method O2 Flow Rate 05/06/22 07:44 99 Nasal Cannula 3 05/06/22 00:00 05/06/22 02:16 96 Nasal Cannula 2 05/05/22 22:56 100 Nasal Cannula Laboratory Results Laboratory Tests 05/06/22 05/06/22 07:22 07:22 WBC 4.80 Hgb 9.3 L Hct 30.3 L Plt Count 138 Sodium 135 L Potassium 4.2 Chloride 102 Carbon Dioxide 30 BUN 21 Creatinine 5.17 H* D Glucose 69 L Calcium 8.7 PG Care Time/CCT Total # of Minutes Spent Total Time Spent with Patient: Total time spent is greater than 50% in coordination of care (as documented) at patient's floor/unit and/or counseling patient: Coding Level of Care Code 48197 Subseq Hosp Care Lvl 3 Diagnoses End-stage renal disease on hemodialysis N18.6; Z99.2 Anemia D64.9 Chronic kidney disease-mineral and bone disorder N18.9; E83.9; M89.9 Hypertension I10 Acute electrocardiogram changes R94.31
[2022-05-06] MEDS: traMADol HCL 50 MG TABLET PO SCH ×2 (08:58→20:27)
[2022-05-06] MEDS: carvediloL 12.5 MG TAB PO SCH ×2 (08:58→20:25)
[2022-05-06] MEDS: CALCIUM ACETATE 667 MG CAP/TAB PO SCH ×3 (08:59→16:33)
[2022-05-06] MEDS: VENLAFAXINE HCL XR 75 MG CAPXR PO SCH (08:59)
[2022-05-06] MEDS: PANTOprazole 40 MG TAB PO SCH ×2 (08:59→20:24)
[2022-05-06] MEDS: GABAPENTIN 300 MG CAP PO SCH ×2 (08:59→20:25)
[2022-05-06] MEDS: CHOLECALCIFEROL 1,000 UNITS 25 MCG TAB PO SCH (08:59)
[2022-05-06] MEDS: BUMETANIDE 1 MG TAB PO SCH ×2 (09:00→16:32)
[2022-05-06] MEDS: HEPARIN SOD 5,000 UNIT/0.5 ML VIAL SQ SCH ×2 (09:00→20:24)
[2022-05-06] MEDS: PRIMIDONE 50 MG TAB PO SCH ×3 (09:01→20:24)
[2022-05-06] MEDS: amLODIPine BESYLATE 5 MG TAB PO SCH (10:00)
[2022-05-06] MEDS: NEPHROCAPS PO SCH (11:16)
[2022-05-06] MEDS: SODIUM ZIRCONIUM CYCLOSILICATE 10 GM PACKET PO SCH (11:17)
--- NOTE | 2022-05-06 11:50 | Hospitalist Progress Note ---
Date of Service May 06, 2022 Assessment & Plan (1) Weakness: Plan: Patient admitted to the hospital on account of worsening generalized weakness There has been some improvement with PT, but barely able to particpate in PT, only able to transfer to commode and chair Continue physical therapy and Occupational Therapy. Anticipate eventual discharge to SNF facility. (2) End-stage renal disease on hemodialysis: Plan: Appreciate nephrology consultation and management. Continue hemodialysis schedule as currently ordered (3) Transaminitis: Plan: Serial labs. Liver ultrasound completed April 28 negative for acute findings (4) Hypertension: Plan: Currently on multiple medications for blood pressure control. Amlodipine dosage uptitrated on May 02 has helped BP under good control BP 160/65 this morning (5) Elevated troponin: Plan: Possibly demand ischemia and ESRD. Left heart catheterization completed on May 01. Normal coronaries found. No evidence of acute VA. (6) Chronic respiratory failure with hypoxia: Plan: Supplemental oxygen per nasal cannula to maintain saturation greater than 90% (7) Diabetes mellitus: Plan: ADA diet. She has actually had hypoglycemic episodes and sliding scale insulin coverage has been discontinued. Glucagon subcutaneously as needed for hypoglycemia. Bedtime snack including protein (8) Anemia: Plan: Chronic due to end-stage renal disease. Serial lab studies. Transfuse if necessary (9) Coronary artery disease: Plan: Left heart catheterization completed May 01. Coronary arteries are normal effectively ruling out underlying coronary artery disease (10) Hypothyroidism: Plan: Continue current thyroid replacement therapy. Periodic thyroid labs (11) Vitamin D deficiency: Plan: Continue vitamin D replacement (12) Dyslipidemia: Plan: Continue current medication treatment plan (13) Depression with anxiety: Plan: Stable with current medication treatment plan (14) Depression: Plan: Stable with current medication treatment plan Plan Anticipate eventual discharge to [facility] when arrangements finalized Admission and Anticipated Discharge Date Admission Date: April 28, 2022 Subjective patient seen and examined, working with therapy, but only transfers to the commode and chair Review of Systems Review of Systems: All systems reviewed are negative, apart from the ones contained in the history. Physical Exam Physical Exam: The patient is awake, alert and oriented 3, well developed and well nourished, normocephalic and atraumatic, lying in bed and in no acute distress. HEENT--PERRL, EOMI, mucous membranes and oropharynx mildly dry Neck--supple. No JVD. No bruits. Thyroid normal, trachea midline, no adenopathy. Heart--normal S1 and S2. No murmurs, rubs or gallops. Lungs--clear bilaterally, no respiratory distress, no accessory muscle use. Abdomen--normal bowel sounds and soft. Mild epigastric and left sided abdominal pain Extremities--bilateral leg edema, poor muscle tone Dermatologic--normal skin turgor, normal color, no abnormal lymph nodes, no rash. Neurologic--cranial nerves II through XII grossly intact. Rheumatologic--normal range of motion. Psychiatric--normal affect. Results & Data Results & Data ([facility]) Vital Signs (Past 12 Hours) Vital Signs Temp Pulse Pulse Pulse Resp BP Pulse Ox 05/06/22 11:35 98.2 F 60 16 160/65 H 99 05/06/22 07:44 98.1 F 60 17 154/61 H 99 05/06/22 00:00 67 05/06/22 02:16 98.4 F 68 154/64 H 96 O2 Del Method O2 Flow Rate 05/06/22 11:35 Nasal Cannula 2 05/06/22 07:44 Nasal Cannula 3 05/06/22 00:00 05/06/22 02:16 Nasal Cannula 2 PG Care Time/CCT Total # of Minutes Spent Total Time Spent with Patient: Total time spent is greater than 50% in coordination of care (as documented) at patient's floor/unit and/or counseling patient: Coding Level of Care Code 78720 Subseq Hosp Care Lvl 2 Diagnoses Weakness R53.1 End-stage renal disease on hemodialysis N18.6; Z99.2 Transaminitis R74.01 Hypertension I10 Elevated troponin R77.8 Chronic respiratory failure with hypoxia J96.11 Diabetes mellitus E11.22; N18.6; Z79.4; Z99.2 Diabetes mellitus type: type 2 Diabetes mellitus terminal makeup operator insulin use: with snf use Diabetes mellitus complication status: with kidney complications Diabetes mellitus complication detail: with chronic kidney disease Chronic kidney disease stage: on chronic dialysis Anemia D64.9 Coronary artery disease I25.10 Coronary Disease-Associated Artery/Lesion type: [place] artery [place] vs. transplanted heart: [place] heart Associated angina: without angina Hypothyroidism E03.9 Hypothyroidism type: unspecified Vitamin D deficiency E55.9 Dyslipidemia E78.5 Depression with anxiety F41.8 Depression F32.A Time Spent (min) 35 (1) Diabetes mellitus Diabetes mellitus type: type 2 Diabetes mellitus snf insulin use: with terminal makeup operator use Diabetes mellitus complication status: with kidney complications Diabetes mellitus complication detail: with chronic kidney disease Chronic kidney disease stage: on chronic dialysis Qualified Code(s): E11.22 - Type 2 diabetes mellitus with diabetic chronic kidney disease; N18.6 - End stage renal disease; Z79.4 - intermodal customer service (current) use of insulin; Z99.2 - Dependence on renal dialysis (2) Coronary artery disease Coronary Disease-Associated Artery/Lesion type: [place] artery [place] vs. transplanted heart: [place] heart Associated angina: without angina Qualified Code(s): I25.10 - Atherosclerotic heart disease of [place] coronary artery without angina pectoris (3) Hypothyroidism Hypothyroidism type: unspecified Qualified Code(s): E03.9 - Hypothyroidism, unspecified
[2022-05-06] MEDS: LEVOTHYROXINE SODIUM 100 MCG TABLET PO SCH (20:24)
[2022-05-06] MEDS: ATORVASTATIN 20 MG TAB PO SCH (20:24)
[2022-05-07] MEDS ORDERED: HEPARIN SOD (PORCINE) 1000 UNIT/ML IV ONE (07:00)
[2022-05-07] MEDS ORDERED: EPOETIN ALFA 10,000 UNITS/ML VIAL IV ONE (07:00)
[2022-05-07] MEDS ORDERED: SODIUM CHLORIDE 0.9% 1000ML 1,000 ML IV PRN (07:00)
[2022-05-07] MEDS: traMADol HCL 50 MG TABLET PO SCH ×2 (07:40→20:31)
[2022-05-07 07:41] LABS: BUN Creatinine Ratio 4.4 (10-20); Calcium 8.8 mg/dl (8.5-10.1); Creatinine Clr Calc Pharmacy 7.4 ml/min; Est GFR (African American) 6.5 ml/min; Est GFR (Non-African American) 5.6 ml/min; Potassium 4.5 mmol/L (3.5-5.1)
[2022-05-07] MEDS: PANTOprazole 40 MG TAB PO SCH ×2 (07:41→20:23)
[2022-05-07] MEDS: carvediloL 12.5 MG TAB PO SCH ×2 (07:41→20:22)
[2022-05-07] MEDS: HEPARIN SOD 5,000 UNIT/0.5 ML VIAL SQ SCH ×2 (07:41→20:24)
[2022-05-07] MEDS: PRIMIDONE 50 MG TAB PO SCH ×3 (07:41→20:22)
[2022-05-07] MEDS: GABAPENTIN 300 MG CAP PO SCH ×2 (07:41→20:24)
[2022-05-07] MEDS: BUMETANIDE 1 MG TAB PO SCH ×2 (07:42→16:37)
[2022-05-07] MEDS: CHOLECALCIFEROL 1,000 UNITS 25 MCG TAB PO SCH (07:42)
[2022-05-07] MEDS: CALCIUM ACETATE 667 MG CAP/TAB PO SCH ×3 (07:42→16:38)
[2022-05-07] MEDS: amLODIPine BESYLATE 5 MG TAB PO SCH (07:43)
[2022-05-07] MEDS: VENLAFAXINE HCL XR 75 MG CAPXR PO SCH (07:43)
--- NOTE | 2022-05-07 10:44 | Nephrology Progress Note ---
Date of Service May 07, 2022 Assessment & Plan (1) End-stage renal disease on hemodialysis: Plan: * ESKD on HD TTS (Rx 4 hours on 180 optiflux, 2 K bath. EDW 92 kg. Qb 350-400) * HD today. Will attempt 2 L UF. Orders placed in EMR and HD RN notified * Continue Lokelma, low K diet and Bumex to manage chronic hyperkalemia. Note that serum potassium has been WNL throughout hospitalization (2) Anemia: Plan: * Epogen 45672 units with HD today (3) Chronic kidney disease-mineral and bone disorder: Plan: * Renal diet. Continue Phoslo QAC. (4) Hypertension: Plan: * BP has improved following UF on HD (5) Acute electrocardiogram changes: Plan: * Cardiac cath report reviewed - no significant coronary lesions. Elevated troponin likely due to demand ischemia (6) Weakness: Plan: * Undergoing evaluation for SNF * PT notes indicate patient still requires 2 person max assist Admission and Anticipated Discharge Date Admission Date: April 28, 2022 Subjective Mrs. Patrick was evaluated in her hospital room this morning. She c/o weakness and is anxious to have PT for strengthening today. Review of Systems Constitutional: no fever Eyes: no problem reported Ear, Nose, Mouth, Throat: no problem reported Respiratory: no cough and no dyspnea Cardiovascular: no chest pain Gastrointestinal: no abdominal pain Neurologic: no confusion Physical Exam Constitutional: no acute distress Eyes: PERRL, conjunctivae normal, anicteric sclerae ENMT: external ear and nose normal, oropharynx normal Neck: trachea midline, no thyromegaly Respiratory: normal respiratory effort, lungs clear to auscultation Cardiovascular: RRR, no murmur, no edema Gastrointestinal (Abdomen): normal bowel sounds, soft, nontender, no hepatosplenomegaly Neurologic: awake; not confused Speech / Cognition: normal speech Results & Data ([facility]) Vital Signs (Past 12 Hours) Vital Signs Temp Pulse Pulse Pulse Resp BP BP 05/07/22 10:00 36.8 C 60 123/45 L 05/07/22 09:33 36.8 C 60 132/51 L 05/07/22 09:22 36.8 C 05/07/22 07:34 36.7 C 66 20 181/74 H 05/07/22 03:19 36.7 C 61 18 05/06/22 23:00 60 12/07/22 22:59 36.7 C 62 18 172/78 H BP Pulse Ox O2 Del Method O2 Flow Rate 05/07/22 10:00 05/07/22 09:33 05/07/22 09:22 05/07/22 07:34 99 Nasal Cannula 2 05/07/22 03:19 149/67 H 98 Nasal Cannula 05/06/22 23:00 05/06/22 22:59 94 Nasal Cannula 2 Laboratory Results Laboratory Tests 05/07/22 06:27 Sodium 132 L Potassium 4.5 Chloride 99 Carbon Dioxide 28 BUN 29 H Creatinine 6.57 H* D Glucose 92 Calcium 8.8 PG Care Time/CCT Total # of Minutes Spent Total Time Spent with Patient: Total time spent is greater than 50% in coordination of care (as documented) at patient's floor/unit and/or counseling patient: Coding Level of Care Code 97067 Subseq Hosp Care Lvl 3 Diagnoses End-stage renal disease on hemodialysis N18.6; Z99.2 Anemia D64.9 Chronic kidney disease-mineral and bone disorder N18.9; E83.9; M89.9 Hypertension I10 Acute electrocardiogram changes R94.31 Weakness R53.1
[2022-05-07] MEDS: NEPHROCAPS PO SCH (11:19)
--- NOTE | 2022-05-07 13:00 | Hospitalist Progress Note ---
Date of Service May 07, 2022 Assessment & Plan (1) Weakness: Plan: Patient admitted to the hospital on account of worsening generalized weakness There has been some improvement with PT, but barely able to particpate in PT, only able to transfer to commode and chair She is a 2 person assist Continue physical therapy and Occupational Therapy. Anticipate eventual discharge to SNF facility. (2) End-stage renal disease on hemodialysis: Plan: Appreciate nephrology consultation and management. Continue hemodialysis schedule as currently ordered (3) Transaminitis: Plan: Serial labs. Liver ultrasound completed April 28 negative for acute findings (4) Hypertension: Plan: Currently on multiple medications for blood pressure control. Amlodipine dosage uptitrated on May 02 has helped BP under good control BP 125/52 this morning (5) Elevated troponin: Plan: Possibly demand ischemia and ESRD. Left heart catheterization completed on May 01. Normal coronaries found. No evidence of acute VT. (6) Chronic respiratory failure with hypoxia: Plan: Supplemental oxygen per nasal cannula to maintain saturation greater than 90% (7) Diabetes mellitus: Plan: ADA diet. She has actually had hypoglycemic episodes and sliding scale insulin coverage has been discontinued. Glucagon subcutaneously as needed for hypoglycemia. Bedtime snack including protein (8) Anemia: Plan: Chronic due to end-stage renal disease. Serial lab studies. Transfuse if necessary (9) Coronary artery disease: Plan: Left heart catheterization completed May 01. Coronary arteries are normal effectively ruling out underlying coronary artery disease (10) Hypothyroidism: Plan: Continue current thyroid replacement therapy. Periodic thyroid labs (11) Vitamin D deficiency: Plan: Continue vitamin D replacement (12) Dyslipidemia: Plan: Continue current medication treatment plan (13) Depression with anxiety: Plan: Stable with current medication treatment plan (14) Depression: Plan: Stable with current medication treatment plan Plan Anticipate eventual discharge to [facility] when arrangements finalized Admission and Anticipated Discharge Date Admission Date: April 28, 2022 Subjective patient seen and examined, participating in PT, she is a 2 person assist Review of Systems Review of Systems: All systems reviewed are negative, apart from the ones contained in the history. Physical Exam Physical Exam: The patient is awake, alert and oriented 3, well developed and well nourished, normocephalic and atraumatic, lying in bed and in no acute distress. HEENT--PERRL, EOMI, mucous membranes and oropharynx mildly dry Neck--supple. No JVD. No bruits. Thyroid normal, trachea midline, no adenopathy. Heart--normal S1 and S2. No murmurs, rubs or gallops. Lungs--clear bilaterally, no respiratory distress, no accessory muscle use. Abdomen--normal bowel sounds and soft. Mild epigastric and left sided abdominal pain Extremities--bilateral leg edema, poor muscle tone Dermatologic--normal skin turgor, normal color, no abnormal lymph nodes, no rash. Neurologic--cranial nerves II through XII grossly intact. Rheumatologic--normal range of motion. Psychiatric--normal affect. Results & Data Results & Data ([facility]) Vital Signs (Past 12 Hours) Vital Signs Temp Pulse Pulse Pulse Resp BP BP 05/07/22 12:30 58 L 125/52 L 05/07/22 12:00 56 L 120/48 L 05/07/22 11:30 58 L 105/41 L 05/07/22 08:00 05/07/22 08:00 65 05/07/22 11:00 98.2 F 59 L 101/49 L 05/07/22 10:30 98.2 F 60 90/43 L 05/07/22 10:00 98.2 F 60 123/45 L 05/07/22 09:33 98.2 F 60 132/51 L 05/07/22 09:22 98.2 F 05/07/22 07:34 98.1 F 66 20 181/74 H 05/07/22 03:19 98.1 F 61 18 BP Pulse Ox O2 Del Method O2 Flow Rate 05/07/22 12:30 05/07/22 12:00 05/07/22 11:30 05/07/22 08:00 Nasal Cannula 2 05/07/22 08:00 05/07/22 11:00 05/07/22 10:30 05/07/22 10:00 05/07/22 09:33 05/07/22 09:22 05/07/22 07:34 99 Nasal Cannula 2 05/07/22 03:19 149/67 H 98 Nasal Cannula PG Care Time/CCT Total # of Minutes Spent Total Time Spent with Patient: Total time spent is greater than 50% in coordination of care (as documented) at patient's floor/unit and/or counseling patient: Coding Level of Care Code 19158 Subseq Hosp Care Lvl 2 Diagnoses Weakness R53.1 End-stage renal disease on hemodialysis N18.6; Z99.2 Transaminitis R74.01 Hypertension I10 Elevated troponin R77.8 Chronic respiratory failure with hypoxia J96.11 Diabetes mellitus E11.22; N18.6; Z79.4; Z99.2 Diabetes mellitus type: type 2 Diabetes mellitus mcfp insulin use: with buttermaker use Diabetes mellitus complication status: with kidney complications Diabetes mellitus complication detail: with chronic kidney disease Chronic kidney disease stage: on chronic dialysis Anemia D64.9 Coronary artery disease I25.10 Coronary Disease-Associated Artery/Lesion type: [place] artery [place] vs. transplanted heart: [place] heart Associated angina: without angina Hypothyroidism E03.9 Hypothyroidism type: unspecified Vitamin D deficiency E55.9 Dyslipidemia E78.5 Depression with anxiety F41.8 Depression F32.A Time Spent (min) 35 (1) Diabetes mellitus Diabetes mellitus type: type 2 Diabetes mellitus buttermaker insulin use: with buttermaker use Diabetes mellitus complication status: with kidney complications Diabetes mellitus complication detail: with chronic kidney disease Chronic kidney disease stage: on chronic dialysis Qualified Code(s): E11.22 - Type 2 diabetes mellitus with diabetic chronic kidney disease; N18.6 - End stage renal disease; Z79.4 - assisted (current) use of insulin; Z99.2 - Dependence on renal dialysis (2) Coronary artery disease Coronary Disease-Associated Artery/Lesion type: [place] artery [place] vs. transplanted heart: [place] heart Associated angina: without angina Qualified Code(s): I25.10 - Atherosclerotic heart disease of [place] coronary artery without angina pectoris (3) Hypothyroidism Hypothyroidism type: unspecified Qualified Code(s): E03.9 - Hypothyroidism, unspecified
[2022-05-07] MEDS: ALUMINUM/MAGNESIUM SUSP 30 ML UDC PO PRN (17:58)
[2022-05-07] MEDS: ATORVASTATIN 20 MG TAB PO SCH (20:25)
[2022-05-07] MEDS: LEVOTHYROXINE SODIUM 100 MCG TABLET PO SCH (20:25)
[2022-05-07] MEDS ORDERED: FAMOTIDINE 10 MG TABLET PO ONE (21:11)
[2022-05-08 07:01] LABS: BUN Creatinine Ratio 4.2 (10-20); Calcium 8.7 mg/dl (8.5-10.1); Creatinine Clr Calc Pharmacy 10.8 ml/min; Est GFR (African American) 10.3 ml/min; Est GFR (Non-African American) 8.9 ml/min
[2022-05-08] MEDS: traMADol HCL 50 MG TABLET PO SCH ×2 (08:23→21:39)
[2022-05-08] MEDS: VENLAFAXINE HCL XR 75 MG CAPXR PO SCH (08:23)
[2022-05-08] MEDS: PRIMIDONE 50 MG TAB PO SCH ×3 (08:24→21:31)
[2022-05-08] MEDS: HEPARIN SOD 5,000 UNIT/0.5 ML VIAL SQ SCH ×2 (08:24→21:31)
[2022-05-08] MEDS: GABAPENTIN 300 MG CAP PO SCH ×2 (08:24→21:31)
[2022-05-08] MEDS: PANTOprazole 40 MG TAB PO SCH ×2 (08:24→21:53)
[2022-05-08] MEDS: CALCIUM ACETATE 667 MG CAP/TAB PO SCH ×3 (08:24→17:09)
[2022-05-08] MEDS: amLODIPine BESYLATE 5 MG TAB PO SCH (08:25)
[2022-05-08] MEDS: BUMETANIDE 1 MG TAB PO SCH ×2 (08:25→17:09)
[2022-05-08] MEDS: carvediloL 12.5 MG TAB PO SCH ×2 (08:25→21:31)
[2022-05-08] MEDS: CHOLECALCIFEROL 1,000 UNITS 25 MCG TAB PO SCH (08:26)
--- NOTE | 2022-05-08 08:38 | Nephrology Progress Note ---
Date of Service May 08, 2022 Assessment & Plan (1) End-stage renal disease on hemodialysis: Plan: * ESKD on HD TTS (Rx 4 hours on 180 optiflux, 2 K bath. EDW 92 kg. Qb 350-400) * Volume status and electrolyte balance are acceptable. No acute indication for HD today * Continue Lokelma, low K diet and Bumex to manage chronic hyperkalemia. Note that serum potassium has been WNL throughout hospitalization (2) Anemia: Plan: * Epogen 47681 units with HD today (3) Chronic kidney disease-mineral and bone disorder: Plan: * Renal diet. Continue Phoslo QAC. (4) Hypertension: Plan: * BP has improved following UF on HD (5) Acute electrocardiogram changes: Plan: * Cardiac cath report reviewed - no significant coronary lesions. Elevated troponin likely due to demand ischemia (6) Weakness: Plan: * Undergoing evaluation for SNF * PT notes indicate patient still requires 2 person max assist Admission and Anticipated Discharge Date Admission Date: April 28, 2022 Subjective Mrs. Patrick was evaluated in her hospital room this morning. She was visiting w/ her Mahad. Mrs. Patrick remains weak and is anxious to have PT for strengthening today Review of Systems Constitutional: no fever Eyes: no problem reported Ear, Nose, Mouth, Throat: no problem reported Respiratory: no cough and no dyspnea Cardiovascular: no chest pain Gastrointestinal: no abdominal pain Neurologic: no confusion Physical Exam Constitutional: no acute distress Eyes: PERRL, conjunctivae normal, anicteric sclerae ENMT: external ear and nose normal, oropharynx normal Neck: trachea midline, no thyromegaly Respiratory: normal respiratory effort, lungs clear to auscultation Cardiovascular: RRR, no murmur, no edema Gastrointestinal (Abdomen): normal bowel sounds, soft, nontender, no hepatosplenomegaly Neurologic: awake; not confused Speech / Cognition: normal speech Results & Data ([facility]) Vital Signs (Past 12 Hours) Vital Signs Temp Pulse Pulse Resp BP BP Pulse Ox 05/08/22 08:00 36.9 C 66 18 170/70 H 05/08/22 02:39 36.8 C 60 16 136/63 100 05/08/22 00:00 66 05/07/22 22:43 36.8 C 70 20 178/76 H 99 O2 Del Method O2 Flow Rate 05/08/22 08:00 Room Air 05/08/22 02:39 Nasal Cannula 2 05/08/22 00:00 05/07/22 22:43 Nasal Cannula 2 Laboratory Results Laboratory Tests 05/08/22 05:51 Sodium 133 L Potassium 4.0 Chloride 101 Carbon Dioxide 27 BUN 19 Creatinine 4.48 H D Glucose 77 Calcium 8.7 Laboratory Tests 05/06/22 07:22 Hgb 9.3 L PG Care Time/CCT Total # of Minutes Spent Total Time Spent with Patient: Total time spent is greater than 50% in coordination of care (as documented) at patient's floor/unit and/or counseling patient: Coding Level of Care Code 40763 Subseq Hosp Care Lvl 3 Diagnoses End-stage renal disease on hemodialysis N18.6; Z99.2 Anemia D64.9 Chronic kidney disease-mineral and bone disorder N18.9; E83.9; M89.9 Hypertension I10 Acute electrocardiogram changes R94.31 Weakness R53.1
[2022-05-08] MEDS: ACETAMINOPHEN 325 MG TAB PO PRN (10:38)
[2022-05-08] MEDS: NEPHROCAPS PO SCH (11:30)
[2022-05-08] MEDS: SODIUM ZIRCONIUM CYCLOSILICATE 10 GM PACKET PO SCH (11:30)
--- NOTE | 2022-05-08 13:14 | Hospitalist Progress Note ---
Date of Service May 08, 2022 Assessment & Plan (1) Weakness: Plan: Patient admitted to the hospital on account of worsening generalized weakness There has been some improvement with PT, but barely able to particpate in PT, only able to transfer to commode and chair She is a 2 person assist Continue physical therapy and Occupational Therapy. Anticipate eventual discharge to SNF facility. (2) End-stage renal disease on hemodialysis: Plan: Appreciate nephrology consultation and management. Continue hemodialysis schedule as currently ordered (3) Transaminitis: Plan: Serial labs. Liver ultrasound completed April 28 negative for acute findings (4) Hypertension: Plan: Currently on multiple medications for blood pressure control. Amlodipine dosage uptitrated on May 02 has helped BP 170/70 today, has been fluctuating a lot (5) Elevated troponin: Plan: Possibly demand ischemia and ESRD. Left heart catheterization completed on May 01. Normal coronaries found. No evidence of acute [place]. (6) Chronic respiratory failure with hypoxia: Plan: Supplemental oxygen per nasal cannula to maintain saturation greater than 90% currently on room air (7) Diabetes mellitus: Plan: ADA diet. She has actually had hypoglycemic episodes and sliding scale insulin coverage has been discontinued. Glucagon subcutaneously as needed for hypoglycemia. Bedtime snack including protein Blood glucose under fair control (8) Anemia: Plan: Chronic due to end-stage renal disease. Serial lab studies. Transfuse if necessary (9) Coronary artery disease: Plan: Left heart catheterization completed May 01. Coronary arteries are normal effectively ruling out underlying coronary artery disease (10) Hypothyroidism: Plan: Continue current thyroid replacement therapy. Periodic thyroid labs (11) Vitamin D deficiency: Plan: Continue vitamin D replacement (12) Dyslipidemia: Plan: Continue current medication treatment plan (13) Depression with anxiety: Plan: Stable with current medication treatment plan (14) Depression: Plan: Stable with current medication treatment plan Plan Anticipate eventual discharge to [facility] when arrangements finalized Admission and Anticipated Discharge Date Admission Date: April 28, 2022 Subjective patient seen and examined, she is still a 2 person assist, PT yet to work with her today Review of Systems Review of Systems: All systems reviewed are negative, apart from the ones contained in the history. Physical Exam Physical Exam: The patient is awake, alert and oriented 3, well developed and well nourished, normocephalic and atraumatic, lying in bed and in no acute distress. HEENT--PERRL, EOMI, mucous membranes and oropharynx mildly dry Neck--supple. No JVD. No bruits. Thyroid normal, trachea midline, no adenopathy. Heart--normal S1 and S2. No murmurs, rubs or gallops. Lungs--clear bilaterally, no respiratory distress, no accessory muscle use. Abdomen--normal bowel sounds and soft. Mild epigastric and left sided abdominal pain Extremities--bilateral leg edema, poor muscle tone Dermatologic--normal skin turgor, normal color, no abnormal lymph nodes, no rash. Neurologic--cranial nerves II through XII grossly intact. Rheumatologic--normal range of motion. Psychiatric--normal affect. Results & Data Results & Data ([facility]) Vital Signs (Past 12 Hours) Vital Signs Temp Pulse Pulse Resp BP BP Pulse Ox 05/08/22 12:00 98.2 F 74 18 96 05/08/22 08:00 63 05/08/22 08:00 98.4 F 66 18 170/70 H 05/08/22 02:39 98.2 F 60 16 136/63 100 O2 Del Method O2 Flow Rate 05/08/22 12:00 Room Air 05/08/22 08:00 05/08/22 08:00 Room Air 05/08/22 02:39 Nasal Cannula 2 PG Care Time/CCT Total # of Minutes Spent Total Time Spent with Patient: Total time spent is greater than 50% in coordination of care (as documented) at patient's floor/unit and/or counseling patient: Coding Level of Care Code 29998 Subseq Hosp Care Lvl 2 Diagnoses Weakness R53.1 End-stage renal disease on hemodialysis N18.6; Z99.2 Transaminitis R74.01 Hypertension I10 Elevated troponin R77.8 Chronic respiratory failure with hypoxia J96.11 Diabetes mellitus E11.22; N18.6; Z79.4; Z99.2 Diabetes mellitus type: type 2 Diabetes mellitus terminal gauger supervisor insulin use: with terminal gauger supervisor use Diabetes mellitus complication status: with kidney complications Diabetes mellitus complication detail: with chronic kidney disease Chronic kidney disease stage: on chronic dialysis Anemia D64.9 Coronary artery disease I25.10 Coronary Disease-Associated Artery/Lesion type: [place] artery [place] vs. transplanted heart: [place] heart Associated angina: without angina Hypothyroidism E03.9 Hypothyroidism type: unspecified Vitamin D deficiency E55.9 Dyslipidemia E78.5 Depression with anxiety F41.8 Depression F32.A Time Spent (min) 35 (1) Diabetes mellitus Diabetes mellitus type: type 2 Diabetes mellitus halfway insulin use: with terminal gauger supervisor use Diabetes mellitus complication status: with kidney complications Diabetes mellitus complication detail: with chronic kidney disease Chronic kidney disease stage: on chronic dialysis Qualified Code(s): E11.22 - Type 2 diabetes mellitus with diabetic chronic kidney disease; N18.6 - End stage renal disease; Z79.4 - nursing home (current) use of insulin; Z99.2 - Dependence on renal dialysis (2) Coronary artery disease Coronary Disease-Associated Artery/Lesion type: [place] artery [place] vs. transplanted heart: [place] heart Associated angina: without angina Qualified Code(s): I25.10 - Atherosclerotic heart disease of [place] coronary artery without angina pectoris (3) Hypothyroidism Hypothyroidism type: unspecified Qualified Code(s): E03.9 - Hypothyroidism, unspecified
[2022-05-08] MEDS: ATORVASTATIN 20 MG TAB PO SCH (21:31)
[2022-05-08] MEDS: LEVOTHYROXINE SODIUM 100 MCG TABLET PO SCH (21:39)
[2022-05-09 06:29] LABS: BUN Creatinine Ratio 4.9 (10-20); Calcium 8.5 mg/dl (8.5-10.1); Creatinine Clr Calc Pharmacy 8.2 ml/min; Est GFR (African American) 7.4 ml/min; Est GFR (Non-African American) 6.4 ml/min
[2022-05-09] MEDS ORDERED: HEPARIN SOD (PORCINE) 1000 UNIT/ML IV SCH (07:00)
[2022-05-09] MEDS ORDERED: EPOETIN ALFA 10,000 UNITS/ML VIAL IV ONE (07:00)
[2022-05-09] MEDS ORDERED: SODIUM CHLORIDE 0.9% 1000ML 1,000 ML IV PRN (07:00)
[2022-05-09] MEDS: CHOLECALCIFEROL 1,000 UNITS 25 MCG TAB PO SCH (08:20)
[2022-05-09] MEDS: GABAPENTIN 300 MG CAP PO SCH ×2 (08:20→21:38)
[2022-05-09] MEDS: HEPARIN SOD 5,000 UNIT/0.5 ML VIAL SQ SCH ×2 (08:20→21:40)
[2022-05-09] MEDS: CALCIUM ACETATE 667 MG CAP/TAB PO SCH ×3 (08:20→18:32)
[2022-05-09] MEDS: BUMETANIDE 1 MG TAB PO SCH ×2 (08:20→18:32)
[2022-05-09] MEDS: PRIMIDONE 50 MG TAB PO SCH ×3 (08:21→21:40)
[2022-05-09] MEDS: PANTOprazole 40 MG TAB PO SCH ×2 (08:21→21:38)
[2022-05-09] MEDS: traMADol HCL 50 MG TABLET PO SCH ×2 (08:21→21:38)
[2022-05-09] MEDS: VENLAFAXINE HCL XR 75 MG CAPXR PO SCH (08:22)
[2022-05-09] MEDS: carvediloL 12.5 MG TAB PO SCH ×2 (09:32→21:39)
[2022-05-09] MEDS: amLODIPine BESYLATE 5 MG TAB PO SCH (09:37)
[2022-05-09] MEDS: NEPHROCAPS PO SCH (11:42)
--- NOTE | 2022-05-09 11:56 | Nephrology Progress Note ---
Date of Service May 09, 2022 Assessment & Plan (1) End-stage renal disease on hemodialysis: (2) Hypertension: (3) Weakness: (4) Anemia: (5) Diabetes mellitus: (6) Chronic kidney disease-mineral and bone disorder: Plan ESRD on HD, admitted on 04/29/22 with generalized weakness, workup unremarkable. Noted to have elevated troponin, cardiac catheterization was unremarkable. Overall physically deconditioned and to person assist with activity and waiting for rehab placement. -- due for dialysis today as her regular schedule, expect blood pressure to improve with UF. -- Dose medications for GFR less than 10, maintain low-salt, low-potassium diet. -- Renal vitamin daily, RONNELL for hemoglobin less than 10 will follow Admission and Anticipated Discharge Date Admission Date: April 28, 2022 Jorge Watson Was seen and evaluated this morning. Overall she has been feeling well, denies any specific concerns, appetite has been decent, no shortness of breath or chest pain. Blood pressure slightly elevated. She is due for dialysis today. Electrolyte has been acceptable. Review of Systems Review of Systems: Detailed review of system was otherwise unremarkable. Physical Exam Constitutional: WD/WN, vitals as above no acute distress Eyes: + anicteric sclerae ENMT: Ears: no hearing impairment Neck: normal visual inspection Respiratory: no respiratory distress Auscultation: lungs clear to auscultation bilaterally Cardiovascular: Rate/Rhythm: regular rate and regular rhythm Heart Sounds: normal S1 and normal S2 Extremities: + AV fistula ( With decent thrill and bruit); no edema Skin: no rashes Neurologic: no focal motor deficits and not confused Psychiatric: Orientation: alert and oriented x 3 Results & Data ([facility]) Vital Signs (Past 12 Hours) Vital Signs Temp Pulse Pulse Resp BP BP Pulse Ox 05/09/22 09:00 05/09/22 06:00 36.7 C 63 20 159/76 H 97 05/09/22 07:00 58 L 05/09/22 02:34 36.4 C L 59 L 16 163/71 H 99 O2 Del Method O2 Flow Rate 05/09/22 09:00 Nasal Cannula 2 05/09/22 06:00 Room Air 05/09/22 07:00 05/09/22 02:34 Nasal Cannula 2 PG Care Time/CCT Total # of Minutes Spent Total Time Spent with Patient: Total time spent is greater than 50% in coordination of care (as documented) at patient's floor/unit and/or counseling patient: Coding Level of Care Code 93707 Subseq Hosp Care Lvl 2 Diagnoses End-stage renal disease on hemodialysis N18.6; Z99.2 Hypertension I10 Weakness R53.1 Anemia D64.9 Diabetes mellitus E11.22; N18.6; Z79.4; Z99.2 Diabetes mellitus type: type 2 Diabetes mellitus jail insulin use: with intermediate manager use Diabetes mellitus complication status: with kidney complications Diabetes mellitus complication detail: with chronic kidney disease Chronic kidney disease stage: on chronic dialysis Chronic kidney disease-mineral and bone disorder N18.9; E83.9; M89.9 (1) Diabetes mellitus Diabetes mellitus type: type 2 Diabetes mellitus jail insulin use: with intermediate manager use Diabetes mellitus complication status: with kidney complications Diabetes mellitus complication detail: with chronic kidney disease Chronic kidney disease stage: on chronic dialysis Qualified Code(s): E11.22 - Type 2 diabetes mellitus with diabetic chronic kidney disease; N18.6 - End stage renal disease; Z79.4 - intermodal dispatcher (current) use of insulin; Z99.2 - Dependence on renal dialysis
--- NOTE | 2022-05-09 12:51 | Hospitalist Progress Note ---
Date of Service May 09, 2022 Assessment & Plan (1) Weakness: Plan: Patient admitted to the hospital on account of worsening generalized weakness There has been some improvement with PT, but barely able to particpate in PT, only able to transfer to commode and chair She is a 2 person assist Continue physical therapy and Occupational Therapy. Anticipate discharge to SNF facility on Wednesday (2) End-stage renal disease on hemodialysis: Plan: Appreciate nephrology consultation and management. Continue hemodialysis schedule as currently ordered (3) Transaminitis: Plan: Serial labs. Liver ultrasound completed April 28 negative for acute findings (4) Hypertension: Plan: Currently on multiple medications for blood pressure control. Amlodipine dosage uptitrated on May 02 has helped BP 162/79 today, has been fluctuating a lot (5) Elevated troponin: Plan: Possibly demand ischemia and ESRD. Left heart catheterization completed on May 01. Normal coronaries found. No evidence of acute CA. (6) Chronic respiratory failure with hypoxia: Plan: Supplemental oxygen per nasal cannula to maintain saturation greater than 90% currently on room air (7) Diabetes mellitus: Plan: ADA diet. She has actually had hypoglycemic episodes and sliding scale insulin coverage has been discontinued. Glucagon subcutaneously as needed for hypoglycemia. Bedtime snack including protein Blood glucose under fair control (8) Anemia: Plan: Chronic due to end-stage renal disease. Serial lab studies. Transfuse if necessary (9) Coronary artery disease: Plan: Left heart catheterization completed May 01. Coronary arteries are normal effectively ruling out underlying coronary artery disease (10) Hypothyroidism: Plan: Continue current thyroid replacement therapy. Periodic thyroid labs (11) Vitamin D deficiency: Plan: Continue vitamin D replacement (12) Dyslipidemia: Plan: Continue current medication treatment plan (13) Depression with anxiety: Plan: Stable with current medication treatment plan (14) Depression: Plan: Stable with current medication treatment plan Plan Anticipate eventual discharge to [facility] when arrangements finalized, possibly Wednesday Admission and Anticipated Discharge Date Admission Date: April 28, 2022 Subjective patient seen and examined, no new complaints, appetite is good, looking forward to SNF on Wednesday Review of Systems Review of Systems: All systems reviewed are negative, apart from the ones contained in the history. Physical Exam Physical Exam: The patient is awake, alert and oriented 3, well developed and well nourished, normocephalic and atraumatic, lying in bed and in no acute distress. HEENT--PERRL, EOMI, mucous membranes and oropharynx mildly dry Neck--supple. No JVD. No bruits. Thyroid normal, trachea midline, no adenopathy. Heart--normal S1 and S2. No murmurs, rubs or gallops. Lungs--clear bilaterally, no respiratory distress, no accessory muscle use. Abdomen--normal bowel sounds and soft. Mild epigastric and left sided abdominal pain Extremities--bilateral leg edema, poor muscle tone Dermatologic--normal skin turgor, normal color, no abnormal lymph nodes, no rash. Neurologic--cranial nerves II through XII grossly intact. Rheumatologic--normal range of motion. Psychiatric--normal affect. Results & Data Results & Data ([facility]) Vital Signs (Past 12 Hours) Vital Signs Temp Pulse Pulse Resp BP BP Pulse Ox 05/09/22 11:55 98.2 F 20 162/79 H 98 05/09/22 09:00 05/09/22 06:00 98.1 F 63 20 159/76 H 97 05/09/22 07:00 58 L 05/09/22 02:34 97.5 F L 59 L 16 163/71 H 99 O2 Del Method O2 Flow Rate 05/09/22 11:55 Room Air 05/09/22 09:00 Nasal Cannula 2 05/09/22 06:00 Room Air 05/09/22 07:00 05/09/22 02:34 Nasal Cannula 2 PG Care Time/CCT Total # of Minutes Spent Total Time Spent with Patient: Total time spent is greater than 50% in coordination of care (as documented) at patient's floor/unit and/or counseling patient: Coding Level of Care Code 33126 Subseq Hosp Care Lvl 2 Diagnoses Weakness R53.1 End-stage renal disease on hemodialysis N18.6; Z99.2 Transaminitis R74.01 Hypertension I10 Elevated troponin R77.8 Chronic respiratory failure with hypoxia J96.11 Diabetes mellitus E11.22; N18.6; Z79.4; Z99.2 Diabetes mellitus type: type 2 Diabetes mellitus long-term insulin use: with terminal manager use Diabetes mellitus complication status: with kidney complications Diabetes mellitus complication detail: with chronic kidney disease Chronic kidney disease stage: on chronic dialysis Anemia D64.9 Coronary artery disease I25.10 Coronary Disease-Associated Artery/Lesion type: [place] artery [place] vs. transplanted heart: [place] heart Associated angina: without angina Hypothyroidism E03.9 Hypothyroidism type: unspecified Vitamin D deficiency E55.9 Dyslipidemia E78.5 Depression with anxiety F41.8 Depression F32.A Time Spent (min) 35 (1) Diabetes mellitus Diabetes mellitus type: type 2 Diabetes mellitus terminal manager insulin use: with long-term use Diabetes mellitus complication status: with kidney complications Diabetes mellitus complication detail: with chronic kidney disease Chronic kidney disease stage: on chronic dialysis Qualified Code(s): E11.22 - Type 2 diabetes mellitus with diabetic chronic kidney disease; N18.6 - End stage renal disease; Z79.4 - senior living (current) use of insulin; Z99.2 - Dependence on renal dialysis (2) Coronary artery disease Coronary Disease-Associated Artery/Lesion type: [place] artery [place] vs. transplanted heart: [place] heart Associated angina: without angina Qualified Code(s): I25.10 - Atherosclerotic heart disease of [place] coronary artery without angina pectoris (3) Hypothyroidism Hypothyroidism type: unspecified Qualified Code(s): E03.9 - Hypothyroidism, unspecified
[2022-05-09] MEDS: LEVOTHYROXINE SODIUM 100 MCG TABLET PO SCH (21:38)
[2022-05-09] MEDS: ATORVASTATIN 20 MG TAB PO SCH (21:39)
[2022-05-10 07:02] LABS: BUN Creatinine Ratio 3.9 (10-20); Calcium 8.7 mg/dl (8.5-10.1); Creatinine Clr Calc Pharmacy 12.7 ml/min; Est GFR (African American) 12.6 ml/min; Est GFR (Non-African American) 10.9 ml/min; Potassium 3.7 mmol/L (3.5-5.1)
[2022-05-10] MEDS: carvediloL 12.5 MG TAB PO SCH ×2 (08:50→20:22)
[2022-05-10] MEDS: PRIMIDONE 50 MG TAB PO SCH ×3 (08:51→20:22)
[2022-05-10] MEDS: PANTOprazole 40 MG TAB PO SCH ×2 (08:51→20:22)
[2022-05-10] MEDS: VENLAFAXINE HCL XR 75 MG CAPXR PO SCH (08:51)
[2022-05-10] MEDS: CHOLECALCIFEROL 1,000 UNITS 25 MCG TAB PO SCH (08:52)
[2022-05-10] MEDS: amLODIPine BESYLATE 5 MG TAB PO SCH (08:52)
[2022-05-10] MEDS: CALCIUM ACETATE 667 MG CAP/TAB PO SCH ×3 (08:52→16:05)
[2022-05-10] MEDS: GABAPENTIN 300 MG CAP PO SCH ×2 (08:52→20:22)
[2022-05-10] MEDS: HEPARIN SOD 5,000 UNIT/0.5 ML VIAL SQ SCH ×2 (08:53→20:22)
[2022-05-10] MEDS: BUMETANIDE 1 MG TAB PO SCH ×2 (08:53→16:05)
[2022-05-10] MEDS: traMADol HCL 50 MG TABLET PO SCH ×2 (08:56→20:22)
--- NOTE | 2022-05-10 11:12 | Nephrology Progress Note ---
Date of Service May 10, 2022 Assessment & Plan (1) End-stage renal disease on hemodialysis: (2) Hypertension: (3) Weakness: (4) Anemia: (5) Diabetes mellitus: (6) Chronic kidney disease-mineral and bone disorder: Plan ESRD on HD, admitted on 04/29/22 with generalized weakness, workup unremarkable. Noted to have elevated troponin, cardiac catheterization was unremarkable. Overall physically deconditioned and to person assist with activity and waiting for rehab placement. Had dialysis yesterday, clinically stable. -- Dose medications for GFR less than 10, maintain low-salt, low-potassium diet. -- Renal vitamin daily, RONNELL for hemoglobin less than 10 -- continue IHD TTS will follow Admission and Anticipated Discharge Date Admission Date: April 28, 2022 Jorge Watson Was seen and evaluated this morning. She was sleepy as she generally does not sleep at night, denies any specific concerns, appetite has been decent, no shortness of breath or chest pain. Blood pressure slightly elevated. Electrolyte has been acceptable. Review of Systems Review of Systems: Detailed review of system was otherwise unremarkable. Physical Exam Constitutional: WD/WN, vitals as above no acute distress Eyes: + anicteric sclerae ENMT: Ears: no hearing impairment Neck: normal visual inspection Respiratory: no respiratory distress Auscultation: lungs clear to auscultation bilaterally Cardiovascular: Rate/Rhythm: regular rate and regular rhythm Heart Sounds: normal S1 and normal S2 Extremities: + AV fistula ( With decent thrill and bruit); no edema Skin: no rashes Neurologic: no focal motor deficits and not confused Psychiatric: Orientation: alert and oriented x 3 Results & Data ([facility]) Vital Signs (Past 12 Hours) Vital Signs Temp Pulse Pulse Resp BP Pulse Ox O2 Del Method 05/10/22 08:49 163/69 H 05/10/22 08:00 67 05/10/22 08:00 36.7 C 69 18 195/86 H 96 Nasal Cannula 05/10/22 02:43 37.1 C 67 16 160/66 H 100 Nasal Cannula O2 Flow Rate 05/10/22 08:49 05/10/22 08:00 05/10/22 08:00 2 05/10/22 02:43 2 PG Care Time/CCT Total # of Minutes Spent Total Time Spent with Patient: Total time spent is greater than 50% in coordination of care (as documented) at patient's floor/unit and/or counseling patient: Coding Level of Care Code 00813 Subseq Hosp Care Lvl 2 Diagnoses End-stage renal disease on hemodialysis N18.6; Z99.2 Hypertension I10 Weakness R53.1 Anemia D64.9 Diabetes mellitus E11.22; N18.6; Z79.4; Z99.2 Diabetes mellitus type: type 2 Diabetes mellitus compressor assembler insulin use: with compressor assembler use Diabetes mellitus complication status: with kidney complications Diabetes mellitus complication detail: with chronic kidney disease Chronic kidney disease stage: on chronic dialysis Chronic kidney disease-mineral and bone disorder N18.9; E83.9; M89.9 (1) Diabetes mellitus Diabetes mellitus type: type 2 Diabetes mellitus compressor assembler insulin use: with long-term use Diabetes mellitus complication status: with kidney complications Diabetes mellitus complication detail: with chronic kidney disease Chronic kidney disease stage: on chronic dialysis Qualified Code(s): E11.22 - Type 2 diabetes mellitus with diabetic chronic kidney disease; N18.6 - End stage renal disease; Z79.4 - paving bed maker (current) use of insulin; Z99.2 - Dependence on renal dialysis
--- NOTE | 2022-05-10 11:27 | Hospitalist Progress Note ---
Date of Service May 10, 2022 Assessment & Plan (1) Weakness: Plan: Patient admitted to the hospital on account of worsening generalized weakness There has been minimal improvement with PT, but barely able to participate in PT, only able to transfer to commode and chair She is a 2 person assist Continue physical therapy and Occupational Therapy. Anticipate discharge to SNF facility on Wednesday (2) End-stage renal disease on hemodialysis: Plan: Appreciate nephrology consultation and management. Continue hemodialysis schedule as currently ordered (3) Transaminitis: Plan: Serial labs. Liver ultrasound completed April 28 negative for acute findings (4) Hypertension: Plan: Currently on multiple medications for blood pressure control. Amlodipine dosage uptitrated on May 02 has helped BP 163/69 today, has been fluctuating a lot (5) Elevated troponin: Plan: Possibly demand ischemia and ESRD. Left heart catheterization completed on May 01. Normal coronaries found. No evidence of acute [place]. (6) Chronic respiratory failure with hypoxia: Plan: Supplemental oxygen per nasal cannula to maintain saturation greater than 90% currently on room air (7) Diabetes mellitus: Plan: ADA diet. She has actually had hypoglycemic episodes and sliding scale insulin coverage has been discontinued. Glucagon subcutaneously as needed for hypoglycemia. Bedtime snack including protein Blood glucose under fair control (8) Anemia: Plan: Chronic due to end-stage renal disease. Serial lab studies. Transfuse if necessary (9) Coronary artery disease: Plan: Left heart catheterization completed May 01. Coronary arteries are normal effectively ruling out underlying coronary artery disease (10) Hypothyroidism: Plan: Continue current thyroid replacement therapy. Periodic thyroid labs (11) Vitamin D deficiency: Plan: Continue vitamin D replacement (12) Dyslipidemia: Plan: Continue current medication treatment plan (13) Depression with anxiety: Plan: Stable with current medication treatment plan (14) Depression: Plan: Stable with current medication treatment plan Plan Anticipate eventual discharge to [facility] when arrangements finalized, possibly Wednesday Admission and Anticipated Discharge Date Admission Date: April 28, 2022 Subjective patient seen and examined, no new complaints, awaiting SNF for Wednesday Review of Systems Review of Systems: All systems reviewed are negative, apart from the ones contained in the history. Physical Exam Physical Exam: The patient is awake, alert and oriented 3, well developed and well nourished, normocephalic and atraumatic, lying in bed and in no acute distress. HEENT--PERRL, EOMI, mucous membranes and oropharynx mildly dry Neck--supple. No JVD. No bruits. Thyroid normal, trachea midline, no adenopathy. Heart--normal S1 and S2. No murmurs, rubs or gallops. Lungs--clear bilaterally, no respiratory distress, no accessory muscle use. Abdomen--normal bowel sounds and soft. Mild epigastric and left sided abdominal pain Extremities--bilateral leg edema, poor muscle tone Dermatologic--normal skin turgor, normal color, no abnormal lymph nodes, no rash. Neurologic--cranial nerves II through XII grossly intact. Rheumatologic--normal range of motion. Psychiatric--normal affect. Results & Data Results & Data ([facility]) Vital Signs (Past 12 Hours) Vital Signs Temp Pulse Pulse Resp BP Pulse Ox O2 Del Method 05/10/22 08:49 163/69 H 05/10/22 08:00 67 05/10/22 08:00 98.1 F 69 18 195/86 H 96 Nasal Cannula 05/10/22 02:43 98.8 F 67 16 160/66 H 100 Nasal Cannula O2 Flow Rate 05/10/22 08:49 05/10/22 08:00 05/10/22 08:00 2 05/10/22 02:43 2 PG Care Time/CCT Total # of Minutes Spent Total Time Spent with Patient: Total time spent is greater than 50% in coordination of care (as documented) at patient's floor/unit and/or counseling patient: Coding Level of Care Code 00955 Subseq Hosp Care Lvl 2 Diagnoses Weakness R53.1 End-stage renal disease on hemodialysis N18.6; Z99.2 Transaminitis R74.01 Hypertension I10 Elevated troponin R77.8 Chronic respiratory failure with hypoxia J96.11 Diabetes mellitus E11.22; N18.6; Z79.4; Z99.2 Diabetes mellitus type: type 2 Diabetes mellitus [facility] insulin use: with adjunct faculty for medical terminology use Diabetes mellitus complication status: with kidney complications Diabetes mellitus complication detail: with chronic kidney disease Chronic kidney disease stage: on chronic dialysis Anemia D64.9 Coronary artery disease I25.10 Coronary Disease-Associated Artery/Lesion type: [place] artery [place] vs. transplanted heart: [place] heart Associated angina: without angina Hypothyroidism E03.9 Hypothyroidism type: unspecified Vitamin D deficiency E55.9 Dyslipidemia E78.5 Depression with anxiety F41.8 Depression F32.A Time Spent (min) 35 (1) Diabetes mellitus Diabetes mellitus type: type 2 Diabetes mellitus [facility] insulin use: with adjunct faculty for medical terminology use Diabetes mellitus complication status: with kidney complications Diabetes mellitus complication detail: with chronic kidney disease Chronic kidney disease stage: on chronic dialysis Qualified Code(s): E11.22 - Type 2 diabetes mellitus with diabetic chronic kidney disease; N18.6 - End stage renal disease; Z79.4 - intermediate accountant (current) use of insulin; Z99.2 - Dependence on renal dialysis (2) Coronary artery disease Coronary Disease-Associated Artery/Lesion type: [place] artery [place] vs. transplanted heart: [place] heart Associated angina: without angina Qualified Code(s): I25.10 - Atherosclerotic heart disease of [place] coronary artery without angina pectoris (3) Hypothyroidism Hypothyroidism type: unspecified Qualified Code(s): E03.9 - Hypothyroidism, unspecified
[2022-05-10] MEDS: SODIUM ZIRCONIUM CYCLOSILICATE 10 GM PACKET PO SCH (11:47)
[2022-05-10] MEDS: NEPHROCAPS PO SCH (11:48)
[2022-05-10] MEDS: ACETAMINOPHEN 325 MG TAB PO PRN (14:15)
--- NOTE | 2022-05-10 14:58 | XRay Report ---
XR ankle RT min 3V routine, XR ankle LT min 3V routine HISTORY: 76 years-old Female pain chronic bilateral ankle pain without reported trauma COMPARISON: Left foot CT 03/31/2022, left ankle radiograph 03/25/2022 TECHNIQUE: 3 views of the bilateral ankles FINDINGS: RIGHT: Moderate soft tissue swelling. Demineralized appearance of the bones. No acute fracture, dislocation or osseous erosion. 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 Spurring of the calc aneus. Arterial calcifications. LEFT: Moderate circumferential soft tissue swelling. Demineralized appearance of the bones. No acute fractu re, dislocation or osseous erosion. 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 Spur ring of the calcaneus. Arterial calcifications. IMPRESSION: Soft tissue swelling without acute fracture or dislocation identified. ACT 112: Negative or not required by law. The above report was generated using voice recognition software. It may contain grammatical, syntax o r spelling errors. Electronically signed by: Josh Oro M.D. 05/10/2022 2:56 PM
[2022-05-10] MEDS: LEVOTHYROXINE SODIUM 100 MCG TABLET PO SCH (20:22)
[2022-05-10] MEDS: ATORVASTATIN 20 MG TAB PO SCH (20:22)
[2022-05-11 07:35] LABS: Hematocrit (blood only) 34.1 % (34.1-44.9); Hemoglobin 10.7 g/dl (12.0-16.0); Mean Corpuscular Hemoglobin 31.9 pg (25.0-34.0); Mean Corpuscular Hgb Conc 31.4 g/dL (32.0-36.0); Mean Corpuscular Volume 101.8 fL (80.0-100.0); Mean Platelet Volume 10.5 fL (9.4-12.3); Platelet Count 152 K/uL (130-400); RDW Coefficient of Variation 15.5 % (11.5-14.5); RDW Standard Deviation 56.8 fL (36.4-46.3); Red Blood Count 3.35 M/uL (3.93-5.22)
[2022-05-11 08:09] LABS: BUN Creatinine Ratio 4.2 (10-20); Calcium 8.8 mg/dl (8.5-10.1); Creatinine Clr Calc Pharmacy 8.4 ml/min; Est GFR (African American) 7.4 ml/min; Est GFR (Non-African American) 6.4 ml/min; Potassium 3.9 mmol/L (3.5-5.1)
[2022-05-11] MEDS: VENLAFAXINE HCL XR 75 MG CAPXR PO SCH (08:39)
[2022-05-11] MEDS: CHOLECALCIFEROL 1,000 UNITS 25 MCG TAB PO SCH (08:39)
[2022-05-11] MEDS: GABAPENTIN 300 MG CAP PO SCH (08:39)
[2022-05-11] MEDS: BUMETANIDE 1 MG TAB PO SCH ×2 (08:40→16:47)
[2022-05-11] MEDS: carvediloL 12.5 MG TAB PO SCH ×2 (08:40→19:59)
[2022-05-11] MEDS: CALCIUM ACETATE 667 MG CAP/TAB PO SCH ×3 (08:40→16:47)
[2022-05-11] MEDS: PRIMIDONE 50 MG TAB PO SCH ×3 (08:41→19:59)
[2022-05-11] MEDS: amLODIPine BESYLATE 5 MG TAB PO SCH (08:41)
[2022-05-11] MEDS: HEPARIN SOD 5,000 UNIT/0.5 ML VIAL SQ SCH ×2 (08:42→20:00)
[2022-05-11] MEDS: PANTOprazole 40 MG TAB PO SCH ×2 (08:43→19:59)
[2022-05-11] MEDS: traMADol HCL 50 MG TABLET PO SCH ×2 (08:47→20:03)
--- NOTE | 2022-05-11 09:55 | Nephrology Progress Note ---
Date of Service May 11, 2022 Assessment & Plan (1) End-stage renal disease on hemodialysis: (2) Hypertension: (3) Weakness: (4) Anemia: (5) Diabetes mellitus: (6) Chronic kidney disease-mineral and bone disorder: Plan ESRD on HD, admitted on 04/29/22 with generalized weakness, workup unremarkable. Noted to have elevated troponin, cardiac catheterization was unremarkable. Overall physically deconditioned and to person assist with activity and waiting for rehab placement. BP slightly elevated, electrolyte volume status acceptable, continues to be weak and lethargic. -- Dose medications for GFR less than 10, maintain low-salt, low-potassium diet. -- Renal vitamin daily, RONNELL for hemoglobin less than 10 -- continue IHD TTS Will follow Admission and Anticipated Discharge Date Admission Date: April 28, 2022 Jorge Watson Was seen and evaluated this morning. She was very sleepy and lethargic, denies shortness of breath or chest pain. Blood pressure slightly elevated. Electrolyte has been acceptable. Review of Systems Review of Systems: Detailed review of system was otherwise unremarkable. Physical Exam Constitutional: WD/WN, vitals as above + ill appearing and + lethargic; no acute distress Respiratory: no respiratory distress Auscultation: lungs clear to auscultation bilaterally Cardiovascular: Rate/Rhythm: regular rate and regular rhythm Heart Sounds: normal S1 and normal S2 Extremities: + AV fistula ( With decent thrill and bruit); no edema Neurologic: moves all extremities and + focal motor deficit (generalized muscle weakness, decreased muscle strength) Psychiatric: Orientation: alert and oriented x 3 Results & Data ([facility]) Vital Signs (Past 12 Hours) Vital Signs Temp Pulse Pulse Resp BP BP Pulse Ox 05/11/22 07:52 69 05/11/22 07:42 37.3 C 67 18 179/85 H 97 05/11/22 04:12 36.8 C 76 18 158/74 H 94 05/11/22 00:00 68 05/10/22 23:45 37.4 C 72 18 167/82 H 92 O2 Del Method O2 Flow Rate 05/11/22 07:52 05/11/22 07:42 Nasal Cannula 2 05/11/22 04:12 Nasal Cannula 2 05/11/22 00:00 05/10/22 23:45 Nasal Cannula 2 PG Care Time/CCT Total # of Minutes Spent Total Time Spent with Patient: Total time spent is greater than 50% in coordination of care (as documented) at patient's floor/unit and/or counseling patient: Coding Level of Care Code 64516 Subseq Hosp Care Lvl 2 Diagnoses End-stage renal disease on hemodialysis N18.6; Z99.2 Hypertension I10 Weakness R53.1 Anemia D64.9 Diabetes mellitus E11.22; N18.6; Z79.4; Z99.2 Diabetes mellitus type: type 2 Diabetes mellitus [facility] use: with [facility] use Diabetes mellitus complication status: with kidney complications Diabetes mellitus complication detail: with chronic kidney disease Chronic kidney disease stage: on chronic dialysis Chronic kidney disease-mineral and bone disorder N18.9; E83.9; M89.9 (1) Diabetes mellitus Diabetes mellitus type: type 2 Diabetes mellitus [facility] insulin use: with exterminator termite use Diabetes mellitus complication status: with kidney complications Diabetes mellitus complication detail: with chronic kidney disease Chronic kidney disease stage: on chronic dialysis Qualified Code(s): E11.22 - Type 2 diabetes mellitus with diabetic chronic kidney disease; N18.6 - End stage renal disease; Z79.4 - extermination supervisor (current) use of insulin; Z99.2 - Dependence on renal dialysis
[2022-05-11] MEDS: NEPHROCAPS PO SCH (11:13)
[2022-05-11] MEDS: SODIUM ZIRCONIUM CYCLOSILICATE 10 GM PACKET PO SCH (11:13)
[2022-05-11 15:27] LABS: HBSAG NON-REACTIVE (NON-REACTIVE); Hepatitis A Antibody IgM NON-REACTIVE (NON-REACTIVE); Hepatitis B Core Antibody IgM NON-REACTIVE (NON-REACTIVE)
--- NOTE | 2022-05-11 17:12 | Hospitalist Progress Note ---
Date of Service May 11, 2022 Assessment & Plan (1) Weakness: Plan: Patient admitted to the hospital on account of worsening generalized weakness. There has been minimal improvement with PT, but barely able to participate in PT, only able to transfer to commode and chair. - She is a 2 person assist - Continue physical therapy and Occupational Therapy. - Anticipate discharge to SNF facility on Wednesday. (2) End-stage renal disease on hemodialysis: Plan: - Appreciate nephrology consultation and management. - Continue hemodialysis schedule as currently ordered. (3) Transaminitis: Plan: AST/ALT were 290/124 on admission on 04/28. Slightly higher on 04/29, then downtrended. Priors had been normal. Liver u/s on 04/28 negative for acute findings. - Will recheck. (4) Hypertension: Plan: Currently on multiple medications for blood pressure control. Amlodipine dosage uptitrated on 05/02. BP is 190/75 today. - Continue carvedilol 12.5 mg PO BID, amlodipine 10 mg PO daily, Bumex 4 mg PO BID - Add ARB if nephrology ok with it. (5) Elevated troponin: Plan: Troponins elevated to 83 on admission. Possibly demand ischemia and ESRD. LHC on 05/01: Normal coronaries found. No evidence of acute [place]. - No further follow-up needed (6) Chronic respiratory failure with hypoxia: Plan: Unclear if this is due to mild hypervolemia from ESRD. - Supplemental oxygen per nasal cannula to maintain saturation greater than 90%. (7) Diabetes mellitus: Plan: A1c was 5.7% in 02/2022, though this is an imperfect measure in ESRD. She has actually had hypoglycemic episodes in the hospital, and sliding scale insulin coverage has been discontinued. - Monitor blood sugars ACHS (8) Anemia: Plan: Chronic due to end-stage renal disease. - Serial lab studies. (9) Hypothyroidism: Plan: Last TSH was 2.47 on 04/28/2022. - Continue current levothyroxine 100 mcg QPM (10) Vitamin D deficiency: Plan: - Continue vitamin D replacement (11) Dyslipidemia: Plan: - Continue atorvastatin (12) Depression with anxiety: Plan: Appears stable at this time. - Lowered venlafaxine ER to 75 mg PO daily for renal function Plan VTE ppx: Heparin 5,000 units SQ Q12h Admission and Anticipated Discharge Date Admission Date: April 28, 2022 Subjective Reports being sleepy, but otherwise ok. Left shoulder is not too sore when she doesn't move it, but otherwise doing ok. She reports this has been ongoing for months to years. Physical Exam Constitutional: WD/WN, vitals as above Eyes: EOM intact bilaterally; no conjunctival abnormality ENMT: external ear and nose normal, oropharynx normal Neck: trachea midline, no thyromegaly normal visual inspection Respiratory: normal respiratory effort, lungs clear to auscultation no respiratory distress Cardiovascular: RRR, no murmur, no edema Gastrointestinal (Abdomen): Inspection/Auscultation: abdomen normal to inspection; abdomen not distended Musculoskeletal: no cyanosis or clubbing, extremities motor strength 5/5 Skin: no rashes, warm and dry Neurologic: moves all extremities and awake Psychiatric: Orientation: alert, oriented to person and cooperative Results & Data Results & Data ([facility]) Vital Signs (Past 12 Hours) Vital Signs Temp Pulse Pulse Resp BP Pulse Ox O2 Del Method 05/11/22 15:47 37.3 C 62 16 189/77 H 100 Nasal Cannula 05/11/22 15:07 60 05/11/22 11:23 Nasal Cannula 05/11/22 10:47 36.9 C 62 18 166/84 H 98 Nasal Cannula 05/11/22 07:52 69 05/11/22 07:42 37.3 C 67 18 179/85 H 97 Nasal Cannula O2 Flow Rate 05/11/22 15:47 2 05/11/22 15:07 05/11/22 11:23 2 05/11/22 10:47 2 05/11/22 07:52 05/11/22 07:42 2 PG Care Time/CCT Total # of Minutes Spent Total Time Spent with Patient: Total time spent is greater than 50% in coordination of care (as documented) at patient's floor/unit and/or counseling patient: Coding Level of Care Code 72297 Subseq Hosp Care Lvl 3 Diagnoses Weakness R53.1 End-stage renal disease on hemodialysis N18.6; Z99.2 Transaminitis R74.01 Hypertension I10 Elevated troponin R77.8 Chronic respiratory failure with hypoxia J96.11 Diabetes mellitus E11.22; N18.6; Z79.4; Z99.2 Diabetes mellitus type: type 2 Diabetes mellitus long term care phlebotomist insulin use: with [facility] use Diabetes mellitus complication status: with kidney complications Diabetes mellitus complication detail: with chronic kidney disease Chronic kidney disease stage: on chronic dialysis Anemia D64.9 Hypothyroidism E03.9 Hypothyroidism type: unspecified Vitamin D deficiency E55.9 Dyslipidemia E78.5 Depression with anxiety F41.8 (1) Diabetes mellitus Diabetes mellitus type: type 2 Diabetes mellitus long term care phlebotomist insulin use: with [facility] use Diabetes mellitus complication status: with kidney complications Diabetes mellitus complication detail: with chronic kidney disease Chronic kidney disease stage: on chronic dialysis Qualified Code(s): E11.22 - Type 2 diabetes mellitus with diabetic chronic kidney disease; N18.6 - End stage renal disease; Z79.4 - detention (current) use of insulin; Z99.2 - Dependence on renal dialysis (2) Hypothyroidism Hypothyroidism type: unspecified Qualified Code(s): E03.9 - Hypothyroidism, unspecified
[2022-05-11] MEDS: ATORVASTATIN 20 MG TAB PO SCH (19:59)
[2022-05-11] MEDS: LEVOTHYROXINE SODIUM 100 MCG TABLET PO SCH (20:00)
[2022-05-12 06:42] LABS: Hematocrit (blood only) 32.5 % (34.1-44.9); Hemoglobin 10.3 g/dl (12.0-16.0); Mean Corpuscular Hemoglobin 32.1 pg (25.0-34.0); Mean Corpuscular Hgb Conc 31.7 g/dL (32.0-36.0); Mean Corpuscular Volume 101.2 fL (80.0-100.0); Mean Platelet Volume 10.4 fL (9.4-12.3); Platelet Count 148 K/uL (130-400); RDW Standard Deviation 55.1 fL (36.4-46.3); Red Blood Count 3.21 M/uL (3.93-5.22); White Blood Count 6.17 K/ul (4.8-10.8)
[2022-05-12 07:20] LABS: Albumin Level 3.1 gm/dl (3.4-5.0); BUN Creatinine Ratio 5.6 (10-20); Bilirubin,Total 0.4 mg/dl (0.2-1.0); Calcium 8.4 mg/dl (8.5-10.1); Est GFR (African American) 5.9 ml/min; Est GFR (Non-African American) 5.1 ml/min; Globulin 3.2 gm/dl (2.5-4.0); Magnesium 2.6 mg/dl (1.7-2.4); Potassium 4.3 mmol/L (3.5-5.1); Total Protein 6.3 gm/dl (6.0-8.3)
[2022-05-12] MEDS: CHOLECALCIFEROL 1,000 UNITS 25 MCG TAB PO SCH (08:54)
[2022-05-12] MEDS: CALCIUM ACETATE 667 MG CAP/TAB PO SCH ×3 (08:54→17:22)
[2022-05-12] MEDS: PANTOprazole 40 MG TAB PO SCH ×2 (08:54→20:27)
[2022-05-12] MEDS: traMADol HCL 50 MG TABLET PO SCH ×2 (08:54→20:34)
[2022-05-12] MEDS: VENLAFAXINE HCL XR 75 MG CAPXR PO SCH (08:55)
[2022-05-12] MEDS: HEPARIN SOD 5,000 UNIT/0.5 ML VIAL SQ SCH ×2 (08:55→20:27)
--- NOTE | 2022-05-12 09:55 | Nephrology Progress Note ---
Date of Service May 12, 2022 Assessment & Plan (1) End-stage renal disease on hemodialysis: (2) Hypertension: (3) Weakness: (4) Anemia: (5) Diabetes mellitus: (6) Chronic kidney disease-mineral and bone disorder: Plan ESRD on HD, admitted on 04/29/22 with generalized weakness, workup unremarkable. Noted to have elevated troponin, cardiac catheterization was unremarkable. Overall physically deconditioned and to person assist with activity and waiting for rehab placement. BP slightly elevated, electrolyte volume status acceptable. -- HD today -- Dose medications for eGFR less than 10, maintain low-salt, low-potassium diet. -- Renal vitamin daily, RONNELL for hemoglobin less than 10 Will follow Admission and Anticipated Discharge Date Admission Date: April 28, 2022 Jorge Watson was seen and evaluated this morning. Doing better, denies shortness of breath or chest pain. Blood pressure elevated. Electrolyte has been accepta ble. Review of Systems Review of Systems: Detailed review of system was otherwise unremarkable. Physical Exam Constitutional: WD/WN, vitals as above + ill appearing; no acute distress Eyes: + anicteric sclerae ENMT: Ears: no hearing impairment Neck: normal visual inspection Respiratory: no respiratory distress Auscultation: lungs clear to auscultation bilaterally Cardiovascular: Rate/Rhythm: regular rate and regular rhythm Heart Sounds: normal S1 and normal S2 Extremities: + AV fistula ( With decent thrill and bruit); no edema Skin: no rashes Neurologic: moves all extremities and + focal motor deficit (generalized muscle weakness, decreased muscle strength); not confused Psychiatric: Orientation: alert and oriented x 3 Results & Data ([facility]) Vital Signs (Past 12 Hours) Vital Signs Temp Pulse Pulse Resp BP Pulse Ox O2 Del Method 05/12/22 07:56 186/97 H 05/12/22 07:14 36.4 C L 64 20 192/84 H 99 Nasal Cannula 05/12/22 03:17 36.7 C 67 16 166/47 H 94 Nasal Cannula 05/12/22 01:38 66 05/11/22 22:39 37.0 C 66 16 173/75 H 99 Nasal Cannula O2 Flow Rate 05/12/22 07:56 05/12/22 07:14 2 05/12/22 03:17 2 05/12/22 01:38 05/11/22 22:39 2 PG Care Time/CCT Total # of Minutes Spent Total Time Spent with Patient: Total time spent is greater than 50% in coordination of care (as documented) at patient's floor/unit and/or counseling patient: Coding Level of Care Code 60782 Subseq Hosp Care Lvl 2 Diagnoses End-stage renal disease on hemodialysis N18.6; Z99.2 Hypertension I10 Weakness R53.1 Anemia D64.9 Diabetes mellitus E11.22; N18.6; Z79.4; Z99.2 Chronic kidney disease stage: on chronic dialysis Diabetes mellitus complication detail: with chronic kidney disease Diabetes mellitus complication status: with kidney complications Diabetes mellitus [facility] insulin use: with [facility]entiary use Diabetes mellitus type: type 2 Chronic kidney disease-mineral and bone disorder N18.9; E83.9; M89.9 (1) Diabetes mellitus Chronic kidney disease stage: on chronic dialysis Diabetes mellitus complication detail: with chronic kidney disease Diabetes mellitus complication status: with kidney complications Diabetes mellitus [facility] insulin use: with terminal system operator use Diabetes mellitus type: type 2 Qualified Code(s): E11.22 - Type 2 diabetes mellitus with diabetic chronic kidney disease; N18.6 - End stage renal disease; Z79.4 - assisted (current) use of insulin; Z99.2 - Dependence on renal dialysis
[2022-05-12] MEDS: carvediloL 12.5 MG TAB PO SCH ×2 (13:43→20:27)
[2022-05-12] MEDS: BUMETANIDE 1 MG TAB PO SCH ×2 (13:43→17:22)
[2022-05-12] MEDS: ACETAMINOPHEN 325 MG TAB PO PRN (13:43)
[2022-05-12] MEDS: amLODIPine BESYLATE 5 MG TAB PO SCH (13:43)
[2022-05-12] MEDS: NEPHROCAPS PO SCH (13:44)
--- NOTE | 2022-05-12 17:35 | Hospitalist Progress Note ---
Date of Service May 12, 2022 Assessment & Plan (1) Weakness: Plan: Patient admitted to the hospital on account of worsening generalized weakness. There has been minimal improvement with PT, but barely able to participate in PT, only able to transfer to commode and chair. - She is a 2 person assist - Continue physical therapy and occupational therapy. - Anticipate discharge to SNF facility on Wednesday. (2) End-stage renal disease on hemodialysis: Plan: - Appreciate nephrology consultation and management. - Continue hemodialysis schedule as currently ordered. On a TTH schedule. (3) Transaminitis: Plan: AST/ALT were 290/124 on admission on 04/28. Slightly higher on 04/29, then downtrended. Priors had been normal. Liver u/s on 04/28 negative for acute findings. - Rechecked on 05/12. Entirely back to normal at AST/ALT of 13/8. Tbili and protein normal as well. Given the fact that it was at this point 2 weeks ago, not sure if we will determine a cause. (4) Hypertension: Plan: Currently on multiple medications for blood pressure control. Amlodipine dosage uptitrated on 05/02. BP is 165/70 today after dialysis. - Continue carvedilol 12.5 mg PO BID, amlodipine 10 mg PO daily, Bumex 4 mg PO BID - Add ARB if nephrology ok with it. (5) Elevated troponin: Plan: Troponins elevated to 83 on admission. Possibly demand ischemia and ESRD. [facility] on 05/01: Normal coronaries found. No evidence of acute UT. - No further follow-up needed (6) Chronic respiratory failure with hypoxia: Plan: Unclear if this is due to mild hypervolemia from ESRD. - Supplemental oxygen per nasal cannula to maintain saturation greater than 90%. As of 05/12, on 2L NC. (7) Diabetes mellitus: Plan: A1c was 5.7% in 02/2022, though this is an imperfect measure in ESRD. She has actually had hypoglycemic episodes in the hospital, and sliding scale insulin coverage has been discontinued. - Monitor blood sugars ACHS (8) Anemia: Plan: Chronic due to end-stage renal disease. - Hgb has been stable ~10 mg/dL in last few days. (9) Hypothyroidism: Plan: Last TSH was 2.47 on 04/28/2022. - Continue current levothyroxine 100 mcg QPM (10) Vitamin D deficiency: Plan: - Continue vitamin D replacement (11) Dyslipidemia: Plan: - Continue atorvastatin (12) Depression with anxiety: Plan: Appears stable at this time. - Lowered venlafaxine ER to 75 mg PO daily for renal function Plan VTE ppx: Heparin 5,000 units SQ Q12h Admission and Anticipated Discharge Date Admission Date: April 28, 2022 Subjective Very tearful this afternoon (after dialysis). Reports people are laughing at her and that she should just go back home. Physical Exam Constitutional: WD/WN, vitals as above Eyes: EOM intact bilaterally; no conjunctival abnormality ENMT: external ear and nose normal, oropharynx normal Neck: trachea midline, no thyromegaly normal visual inspection Respiratory: normal respiratory effort, lungs clear to auscultation no respiratory distress Cardiovascular: RRR, no murmur, no edema Gastrointestinal (Abdomen): Inspection/Auscultation: abdomen normal to ins pection; abdomen not distended Musculoskeletal: no cyanosis or clubbing, extremities motor strength 5/5 Skin: no rashes, warm and dry Neurologic: moves all extremities and awake Psychiatric: Orientation: alert, oriented to person and cooperative Results & Data Results & Data ([facility]) Vital Signs (Past 12 Hours) Vital Signs Temp Pulse Pulse Pulse Resp BP BP 05/12/22 16:27 36.7 C 66 17 05/12/22 13:10 36.6 C 69 128/78 05/12/22 13:32 36.8 C 69 16 141/63 H 05/12/22 12:30 72 104/52 L 05/12/22 12:00 69 101/49 L 05/12/22 11:30 73 115/60 05/12/22 07:45 05/12/22 07:45 65 05/12/22 11:00 74 124/62 05/12/22 10:30 69 151/69 H 05/12/22 10:00 66 163/81 H 05/12/22 09:30 64 178/72 H 05/12/22 09:26 36.6 C 65 05/12/22 07:56 186/97 H 05/12/22 07:14 36.4 C L 64 20 192/84 H BP Pulse Ox O2 Del Method O2 Flow Rate 05/12/22 16:27 164/71 H 98 Nasal Cannula 2 05/12/22 13:10 05/12/22 13:32 100 Nasal Cannula 05/12/22 12:30 05/12/22 12:00 05/12/22 11:30 05/12/22 07:45 Nasal Cannula 2 05/12/22 07:45 05/12/22 11:00 05/12/22 10:30 05/12/22 10:00 05/12/22 09:30 05/12/22 09:26 05/12/22 07:56 05/12/22 07:14 99 Nasal Cannula 2 PG Care Time/CCT Total # of Minutes Spent Total Time Spent with Patient: Total time spent is greater than 50% in coordination of care (as documented) at patient's floor/unit and/or counseling patient: Coding Level of Care Code 14025 Subseq Hosp Care Lvl 2 Diagnoses Weakness R53.1 End-stage renal disease on hemodialysis N18.6; Z99.2 Transaminitis R74.01 Hypertension I10 Elevated troponin R77.8 Chronic respiratory failure with hypoxia J96.11 Diabetes mellitus E11.22; N18.6; Z79.4; Z99.2 Diabetes mellitus type: type 2 Diabetes mellitus longterm insulin use: with longterm use Diabetes mellitus complication status: with kidney complications Diabetes mellitus complication detail: with chronic kidney disease Chronic kidney disease stage: on chronic dialysis Anemia D64.9 Hypothyroidism E03.9 Hypothyroidism type: unspecified Vitamin D deficiency E55.9 Dyslipidemia E78.5 Depression with anxiety F41.8 (1) Diabetes mellitus Diabetes mellitus type: type 2 Diabetes mellitus market research lead insulin use: with longterm use Diabetes mellitus complication status: with kidney complications Diabetes mellitus complication detail: with chronic kidney disease Chronic kidney disease stage: on chronic dialysis Qualified Code(s): E11.22 - Type 2 diabetes mellitus with diabetic chronic kidney disease; N18.6 - End stage renal disease; Z79.4 - senior care (current) use of insulin; Z99.2 - Dependence on renal dialysis (2) Hypothyroidism Hypothyroidism type: unspecified Qualified Code(s): E03.9 - Hypothyroidism, unspecified
[2022-05-12] MEDS: GABAPENTIN 300 MG CAP PO SCH (19:14)
[2022-05-12] MEDS: ATORVASTATIN 20 MG TAB PO SCH (20:27)
[2022-05-12] MEDS: PRIMIDONE 50 MG TAB PO SCH (20:27)
[2022-05-12] MEDS: LEVOTHYROXINE SODIUM 100 MCG TABLET PO SCH (20:27)
[2022-05-12] MEDS: POLYETHYLENE (MIRALAX) 17 GM PACK PO PRN (20:34)
[2022-05-12] MEDS: ALUMINUM/MAGNESIUM SUSP 30 ML UDC PO PRN (20:34)
[2022-05-12] MEDS: INSULIN ASPART PER UNIT SC SCH (20:41)
[2022-05-13] MEDS: HEPARIN SOD 5,000 UNIT/0.5 ML VIAL SQ SCH ×2 (07:47→20:56)
[2022-05-13] MEDS: CHOLECALCIFEROL 1,000 UNITS 25 MCG TAB PO SCH (07:47)
[2022-05-13] MEDS: BUMETANIDE 1 MG TAB PO SCH ×2 (07:47→17:01)
[2022-05-13] MEDS: CALCIUM ACETATE 667 MG CAP/TAB PO SCH ×3 (07:47→17:01)
[2022-05-13] MEDS: PANTOprazole 40 MG TAB PO SCH ×2 (07:47→20:56)
[2022-05-13] MEDS: carvediloL 12.5 MG TAB PO SCH ×2 (07:47→20:56)
[2022-05-13] MEDS: VENLAFAXINE HCL XR 75 MG CAPXR PO SCH (07:47)
[2022-05-13] MEDS: amLODIPine BESYLATE 5 MG TAB PO SCH (07:47)
[2022-05-13] MEDS: INSULIN ASPART PER UNIT SC SCH ×4 (08:39→21:01)
[2022-05-13] MEDS: traMADol HCL 50 MG TABLET PO SCH ×2 (08:39→20:55)
--- NOTE | 2022-05-13 10:20 | Nephrology Progress Note ---
Date of Service May 13, 2022 Assessment & Plan (1) End-stage renal disease on hemodialysis: (2) Hypertension: (3) Weakness: (4) Anemia: (5) Diabetes mellitus: (6) Chronic kidney disease-mineral and bone disorder: Plan ESRD on HD, admitted on 04/29/22 with generalized weakness, workup unremarkable. Noted to have elevated troponin, cardiac catheterization was unremarkable. Overall physically deconditioned and to person assist with activity and waiting for rehab placement. BP fair, electrolyte volume status acceptable. --Had HD yesterday, waiting for rehab DC. --Dose medications for eGFR less than 10, maintain low-salt, low-potassium diet. Will follow while inpatient Admission and Anticipated Discharge Date Admission Date: April 28, 2022 Jorge Watson was seen and evaluated this morning. Denies shortness of breath or chest pain but remains sleepy and lethargic. Blood pressure elevated. Electrolyte has been acceptable. Review of Systems Review of Systems: Detailed review of system was otherwise unremarkable. Physical Exam Constitutional: WD/WN, vitals as above + ill appearing and + lethargic; no acute distress Respiratory: no respiratory distress Auscultation: lungs clear to auscultation bilaterally Cardiovascular: Rate/Rhythm: regular rate and regular rhythm Heart Sounds: normal S1 and normal S2 Extremities: + AV fistula ( With decent thrill and bruit); no edema Skin: no rashes Neurologic: moves all extremities and + focal motor deficit (generalized muscle weakness, decreased muscle strength); not confused Psychiatric: Orientation: alert and oriented x 3 Results & Data ([facility]) Vital Signs (Past 12 Hours) Vital Signs Temp Pulse Pulse Pulse Resp BP Pulse Ox 05/13/22 09:34 152/86 H 05/13/22 07:39 37 C 68 15 195/92 H 98 05/13/22 02:49 36.8 C 66 17 165/97 H 99 05/13/22 02:24 70 05/12/22 22:58 36.8 C 68 16 172/83 H 99 O2 Del Method O2 Flow Rate 05/13/22 09:34 05/13/22 07:39 Nasal Cannula 05/13/22 02:49 Nasal Cannula 2 05/13/22 02:24 05/12/22 22:58 Nasal Cannula 2 PG Care Time/CCT Total # of Minutes Spent Total Time Spent with Patient: Total time spent is greater than 50% in coordination of care (as documented) at patient's floor/unit and/or counseling patient: Coding Level of Care Code 85172 Subseq Hosp Care Lvl 2 Diagnoses End-stage renal disease on hemodialysis N18.6; Z99.2 Hypertension I10 Weakness R53.1 Anemia D64.9 Diabetes mellitus E11.22; N18.6; Z79.4; Z99.2 Diabetes mellitus type: type 2 Diabetes mellitus adjunct faculty for medical terminology insulin use: with intermediate use Diabetes mellitus complication status: with kidney complications Diabetes mellitus complication detail: with chronic kidney disease Chronic kidney disease stage: on chronic dialysis Chronic kidney disease-mineral and bone disorder N18.9; E83.9; M89.9 (1) Diabetes mellitus Diabetes mellitus type: type 2 Diabetes mellitus intermediate insulin use: with intermediate use Diabetes mellitus complication status: with kidney complications Diabetes mellitus complication detail: with chronic kidney disease Chronic kidney disease stage: on chronic dialysis Qualified Code(s): E11.22 - Type 2 diabetes mellitus with diabetic chronic kidney disease; N18.6 - End stage renal disease; Z79.4 - intermediate card tender (current) use of insulin; Z99.2 - Dependence on renal dialysis
[2022-05-13] MEDS: SODIUM ZIRCONIUM CYCLOSILICATE 10 GM PACKET PO SCH (12:30)
[2022-05-13] MEDS: NEPHROCAPS PO SCH (12:30)
[2022-05-13] MEDS: ACETAMINOPHEN 325 MG TAB PO PRN (12:36)
--- NOTE | 2022-05-13 15:20 | Hospitalist Progress Note ---
Date of Service May 13, 2022 Assessment & Plan (1) Weakness: Plan: Patient admitted to the hospital on account of worsening generalized weakness. There has been minimal improvement with PT, but barely able to participate in PT, only able to transfer to commode and chair. - She is a 2 person assist - Continue physical therapy and occupational therapy. - Anticipate discharge to SNF facility tomorrow. (2) Hypertension: Plan: Currently on multiple medications for blood pressure control. Amlodipine dosage uptitrated on 05/02. BP is 165/70 today after dialysis. - Continue carvedilol 12.5 mg PO BID, amlodipine 10 mg PO daily, Bumex 4 mg PO BID - Added losartan 25 mg HS on 05/13 with nephrology approval. Low concern for hyperkalemia given she is on HD and already on Lokelma. (3) End-stage renal disease on hemodialysis: Plan: - Appreciate nephrology consultation and management. - Continue hemodialysis schedule as currently ordered. On a TTH schedule. (4) Transaminitis: Plan: AST/ALT were 290/124 on admission on 04/28. Slightly higher on 04/29, then downtrended. Priors had been normal. Liver u/s on 04/28 negative for acute findings. - Rechecked on 05/12. Entirely back to normal at AST/ALT of 13/8. Tbili and protein normal as well. Given the fact that it was at this point 2 weeks ago, not sure if we will determine a cause. (5) Elevated troponin: Plan: Troponins elevated to 83 on admission. Possibly demand ischemia and ESRD. [facility] on 05/01: Normal coronaries found. No evidence of acute MD. - No further follow-up needed (6) Chronic respiratory failure with hypoxia: Plan: Unclear if this is due to mild hypervolemia from ESRD. - Supplemental oxygen per nasal cannula to maintain saturation greater than 90%. As of 05/12, on 2L NC. (7) Diabetes mellitus: Plan: A1c was 5.7% in 02/2022, though this is an imperfect measure in ESRD. She has actually had hypoglycemic episodes in the hospital, and sliding scale insulin coverage has been discontinued. - Monitor blood sugars ACHS -> Re-added low-dose aspart on 05/12 as her sugars were higher, but it is a very low-dose regimen. (8) Anemia: Plan: Chronic due to end-stage renal disease. - Hgb has been stable ~10 mg/dL in last few days. (9) Hypothyroidism: Plan: Last TSH was 2.47 on 04/28/2022. - Continue current levothyroxine 100 mcg QPM (10) Vitamin D deficiency: Plan: - Continue vitamin D replacement (11) Dyslipidemia: Plan: - Continue atorvastatin (12) Depression with anxiety: Plan: Appears stable at this time. - Lowered venlafaxine ER to 75 mg PO daily for renal function Plan VTE ppx: Heparin 5,000 units SQ Q12h Admission and Anticipated Discharge Date Admission Date: April 28, 2022 Subjective Doing fine today. More energy. No longer tearful. Physical Exam Constitutional: WD/WN, vitals as above Eyes: EOM intact bilaterally; no conjunctival abnormality ENMT: external ear and nose normal, oropharynx normal Neck: trachea midline, no thyromegaly normal visual inspection Respiratory: normal respiratory effort, lungs clear to auscultation no respiratory distress Cardiovascular: RRR, no murmur, no edema Gastrointestinal (Abdomen): Inspection/Auscultation: abdomen normal to inspection; abdomen not distended Musculoskeletal: no cyanosis or clubbing, extremities motor strength 5/5 Skin: no rashes, warm and dry Neurologic: moves all extremities and awake Psychiatric: Orientation: alert, oriented to person and cooperative Results & Data Results & Data ([facility]) Vital Signs (Past 12 Hours) Vital Signs Temp Pulse Pulse Pulse Resp BP Pulse Ox 05/13/22 11:32 70 18 179/76 H 96 05/13/22 07:30 05/13/22 07:30 69 05/13/22 09:34 152/86 H 05/13/22 07:39 37 C 68 15 195/92 H 98 O2 Del Method O2 Flow Rate 05/13/22 11:32 Nasal Cannula 05/13/22 07:30 Nasal Cannula 2 05/13/22 07:30 05/13/22 09:34 05/13/22 07:39 Nasal Cannula PG Care Time/CCT Total # of Minutes Spent Total Time Spent with Patient: Total time spent is greater than 50% in coordination of care (as documented) at patient's floor/unit and/or counseling patient: Coding Level of Care Code 67656 Subseq Hosp Care Lvl 3 Diagnoses Weakness R53.1 Hypertension I10 End-stage renal disease on hemodialysis N18.6; Z99.2 Transaminitis R74.01 Elevated troponin R77.8 Chronic respiratory failure with hypoxia J96.11 Diabetes mellitus E11.22; N18.6; Z79.4; Z99.2 Diabetes mellitus type: type 2 Diabetes mellitus rn long term care insulin use: with rn long term care use Diabetes mellitus complication status: with kidney complications Diabetes mellitus complication detail: with chronic kidney disease Chronic kidney disease stage: on chronic dialysis Anemia D64.9 Hypothyroidism E03.9 Hypothyroidism type: unspecified Vitamin D deficiency E55.9 Dyslipidemia E78.5 Depression with anxiety F41.8 (1) Diabetes mellitus Diabetes mellitus type: type 2 Diabetes mellitus retirement insulin use: with rn long term care use Diabetes mellitus complication status: with kidney complications Diabetes mellitus complication detail: with chronic kidney disease Chronic kidney disease stage: on chronic dialysis Qualified Code(s): E11.22 - Type 2 diabetes mellitus with diabetic chronic kidney disease; N18.6 - End stage renal disease; Z79.4 - longterm (current) use of insulin; Z99.2 - Dependence on renal dialysis (2) Hypothyroidism Hypothyroidism type: unspecified Qualified Code(s): E03.9 - Hypothyroidism, unspecified
[2022-05-13] MEDS: ATORVASTATIN 20 MG TAB PO SCH (20:55)
[2022-05-13] MEDS: LEVOTHYROXINE SODIUM 100 MCG TABLET PO SCH (20:56)
[2022-05-13] MEDS: PRIMIDONE 50 MG TAB PO SCH (20:56)
[2022-05-13] MEDS ORDERED: LOSARTAN POTASSIUM 25 MG TAB PO SCH (21:00)
[2022-05-14 06:16] LABS: Hematocrit (blood only) 33.2 % (34.1-44.9); Hemoglobin 10.4 g/dl (12.0-16.0); Mean Corpuscular Hemoglobin 31.9 pg (25.0-34.0); Mean Corpuscular Hgb Conc 31.3 g/dL (32.0-36.0); Mean Corpuscular Volume 101.8 fL (80.0-100.0); Mean Platelet Volume 10.6 fL (9.4-12.3); Platelet Count 195 K/uL (130-400); RDW Coefficient of Variation 14.8 % (11.5-14.5); RDW Standard Deviation 55.2 fL (36.4-46.3); Red Blood Count 3.26 M/uL (3.93-5.22)
[2022-05-14 06:44] LABS: BUN Creatinine Ratio 9.8 (10-20); Creatinine Clr Calc Pharmacy 7.4 ml/min; Est GFR (African American) 6.7 ml/min; Est GFR (Non-African American) 5.8 ml/min; Magnesium 2.5 mg/dl (1.7-2.4); Potassium 4.3 mmol/L (3.5-5.1)
[2022-05-14] MEDS: INSULIN ASPART PER UNIT SC SCH ×4 (08:44→22:08)
[2022-05-14] MEDS: PANTOprazole 40 MG TAB PO SCH ×2 (08:44→20:59)
[2022-05-14] MEDS: BUMETANIDE 1 MG TAB PO SCH ×2 (08:44→17:02)
[2022-05-14] MEDS: CHOLECALCIFEROL 1,000 UNITS 25 MCG TAB PO SCH (08:44)
[2022-05-14] MEDS: carvediloL 12.5 MG TAB PO SCH ×2 (08:45→20:58)
[2022-05-14] MEDS: CALCIUM ACETATE 667 MG CAP/TAB PO SCH ×3 (08:45→17:02)
[2022-05-14] MEDS: HEPARIN SOD 5,000 UNIT/0.5 ML VIAL SQ SCH ×2 (08:45→20:57)
[2022-05-14] MEDS: amLODIPine BESYLATE 5 MG TAB PO SCH (08:45)
[2022-05-14] MEDS: VENLAFAXINE HCL XR 75 MG CAPXR PO SCH (08:45)
[2022-05-14] MEDS: traMADol HCL 50 MG TABLET PO SCH ×2 (08:49→20:56)
--- NOTE | 2022-05-14 10:58 | Hospitalist Progress Note ---
Date of Service May 14, 2022 Assessment & Plan (1) Weakness: Plan: Patient admitted to the hospital on account of worsening generalized weakness. There has been minimal improvement with PT, but barely able to participate in PT, only able to transfer to commode and chair. - She is a 2 person assist - Continue physical therapy and occupational therapy. - Anticipate discharge to SNF facility when able. (2) Hypertension: Plan: Currently on multiple medications for blood pressure control. Amlodipine dosage uptitrated on 05/02. BP was 180/75 in the morning. - Continue carvedilol 12.5 mg PO BID, amlodipine 10 mg PO daily, Bumex 4 mg PO BID - Added losartan 25 mg HS on 05/13 with nephrology approval. Low concern for hyperkalemia given she is on HD and already on Lokelma. (3) End-stage renal disease on hemodialysis: Plan: - Appreciate nephrology consultation and management. - Continue hemodialysis schedule as currently ordered. On a TTH schedule. (4) Myoclonus: Plan: Earlier in this admission (~05/11), she was quite lethargic. I noted that her gabapentin was higher than recommended for ESRD. Her primodone also was much higher than recommended. Lowered both substantially. No increase noted in her baseline tremor (which I am not even really noticing in the hospital). - Continue gabapentin 300 mg PO HS TuThSa (after dialysis) - Continue primidone 50 mg PO HS (5) Transaminitis: Plan: AST/ALT were 290/124 on admission on 04/28. Slightly higher on 04/29, then downtrended. Priors had been normal. Liver u/s on 04/28 negative for acute findings. - Rechecked on 05/12. Entirely back to normal at AST/ALT of 13/8. Tbili and protein normal as well. Given the fact that it was at this point 2 weeks ago, not sure if we will determine a cause. (6) Elevated troponin: Plan: Troponins elevated to 83 on admission. Possibly demand ischemia and ESRD. [facility] on 05/01: Normal coronaries found. No evidence of acute IN. - No further follow-up needed (7) Chronic respiratory failure with hypoxia: Plan: Unclear if this is due to mild hypervolemia from ESRD. - Supplemental oxygen per nasal cannula to maintain saturation greater than 90%. As of 05/12, on 2L NC. (8) Diabetes mellitus: Plan: A1c was 5.7% in 02/2022, though this is an imperfect measure in ESRD. She has actually had hypoglycemic episodes in the hospital, and sliding scale insulin coverage has been discontinued. - Monitor blood sugars ACHS -> Re-added low-dose aspart on 05/12 as her sugars were higher, but it is a very low-dose regimen. Sugars 120 - 250 in last 24 hours. (9) Anemia: Plan: Chronic due to end-stage renal disease. - Hgb has been stable ~10.5 mg/dL in last few days. (10) Hypothyroidism: Plan: Last TSH was 2.47 on 04/28/2022. - Continue current levothyroxine 100 mcg QPM (11) Vitamin D deficiency: Plan: - Continue vitamin D replacement (12) Dyslipidemia: Plan: - Continue atorvastatin (13) Depression with anxiety: Plan: Appears stable at this time. - Lowered venlafaxine ER to 75 mg PO daily for renal function Plan VTE ppx: Heparin 5,000 units SQ Q12h Admission and Anticipated Discharge Date Admission Date: April 28, 2022 Subjective Doing well today. Her left wrist is hurting where the IV is in place, but otherwise, no major concerns today. Reports no fevers/chills, chest pain, shortness of breath, abdominal pain, nausea, or vomiting. Physical Exam Constitutional: WD/WN, vitals as above Eyes: EOM intact bilaterally; no conjunctival abnormality ENMT: external ear and nose normal, oropharynx normal Neck: trachea midline, no thyromegaly normal visual inspection Respiratory: normal respiratory effort, lungs clear to auscultation no respiratory distress Cardiovascular: RRR, no murmur, no edema Gastrointestinal (Abdomen): Inspection/Auscultation: abdomen normal to inspection; abdomen not distended Musculoskeletal: no cyanosis or clubbing, extremities motor strength 5/5 Skin: no rashes, warm and dry Neurologic: moves all extremities and awake Psychiatric: Orientation: alert, oriented to person and cooperative Results & Data Results & Data ([facility]) Vital Signs (Past 12 Hours) Vital Signs Temp Pulse Pulse Pulse Resp BP BP 05/14/22 10:30 64 91/52 L 05/14/22 09:54 05/14/22 09:30 65 124/57 L 05/14/22 10:00 63 115/51 L 05/14/22 09:27 65 136/67 05/14/22 09:19 36.7 C 66 05/14/22 07:33 37.0 C 66 18 139/51 L 05/13/22 23:11 36.7 C 75 18 181/77 H Pulse Ox O2 Del Method O2 Flow Rate 05/14/22 10:30 05/14/22 09:54 Nasal Cannula 2 05/14/22 09:30 05/14/22 10:00 05/14/22 09:27 05/14/22 09:19 05/14/22 07:33 99 Nasal Cannula 2 05/13/22 23:11 99 Nasal Cannula 2.0 PG Care Time/CCT Total # of Minutes Spent Total Time Spent with Patient: Total time spent is greater than 50% in coordination of care (as documented) at patient's floor/unit and/or counseling patient: Coding Level of Care Code 04251 Subseq Hosp Care Lvl 3 Diagnoses Weakness R53.1 Hypertension I10 End-stage renal disease on hemodialysis N18.6; Z99.2 Myoclonus G25.3 Transaminitis R74.01 Elevated troponin R77.8 Chronic respiratory failure with hypoxia J96.11 Diabetes mellitus E11.22; N18.6; Z79.4; Z99.2 Diabetes mellitus type: type 2 Diabetes mellitus detention insulin use: with medical terminologist use Diabetes mellitus complication status: with kidney complications Diabetes mellitus complication detail: with chronic kidney disease Chronic kidney disease stage: on chronic dialysis Anemia D64.9 Hypothyroidism E03.9 Hypothyroidism type: unspecified Vitamin D deficiency E55.9 Dyslipidemia E78.5 Depression with anxiety F41.8 (1) Diabetes mellitus Diabetes mellitus type: type 2 Diabetes mellitus detention insulin use: with medical terminologist use Diabetes mellitus complication status: with kidney complications Diabetes mellitus complication detail: with chronic kidney disease Chronic kidney disease stage: on chronic dialysis Qualified Code(s): E11.22 - Type 2 diabetes mellitus with diabetic chronic kidney disease; N18.6 - End stage renal disease; Z79.4 - exterminator helper (current) use of insulin; Z99.2 - Dependence on renal dialysis (2) Hypothyroidism Hypothyroidism type: unspecified Qualified Code(s): E03.9 - Hypothyroidism, unspecified
--- NOTE | 2022-05-14 11:23 | Nephrology Progress Note ---
Date of Service May 14, 2022 Assessment & Plan (1) End-stage renal disease on hemodialysis: (2) Hypertension: (3) Weakness: (4) Anemia: (5) Diabetes mellitus: (6) Chronic kidney disease-mineral and bone disorder: Plan ESRD on HD, admitted on 04/29/22 with generalized weakness, workup unremarkable. Noted to have elevated troponin, cardiac catheterization was unremarkable. Overall physically deconditioned and to person assist with activity and waiting for rehab placement. BP fair, electrolyte volume status acceptable. --tolerating HD, waiting for rehab DC. --discontinue Losartan as she previously had repeated episodes of critical hyperkalemia. --Dose medications for eGFR less than 10, maintain low-salt, low-potassium diet. If BP again high, BB or doxazosin can be considered. Will follow. Admission and Anticipated Discharge Date Admission Date: April 28, 2022 Jorge Watson was seen and evaluated during HD this morning. Denies shortness of breath or chest pain. Blood pressure relatively low. Electrolyte has been acceptable. Review of Systems Review of Systems: Detailed review of system was otherwise unremarkable. Physical Exam Constitutional: WD/WN, vitals as above no acute distress Respiratory: no respiratory distress Auscultation: lungs clear to auscultation bilaterally Cardiovascular: Rate/Rhythm: regular rate and regular rhythm Heart Sounds: normal S1 and normal S2 Extremities: + AV fistula ( With decent thrill and bruit); no edema Skin: no rashes Neurologic: moves all extremities and + focal motor deficit (generalized muscle weakness, decreased muscle strength) Psychiatric: Orientation: alert and oriented x 3 Results & Data ([facility]) Vital Signs (Past 12 Hours) Vital Signs Temp Pulse Pulse Pulse Resp BP BP 05/14/22 10:30 64 91/52 L 05/14/22 09:54 05/14/22 09:30 65 124/57 L 05/14/22 10:00 63 115/51 L 05/14/22 09:27 65 136/67 05/14/22 09:19 36.7 C 66 05/14/22 07:33 37.0 C 66 18 139/51 L Pulse Ox O2 Del Method O2 Flow Rate 05/14/22 10:30 05/14/22 09:54 Nasal Cannula 2 05/14/22 09:30 05/14/22 10:00 05/14/22 09:27 05/14/22 09:19 05/14/22 07:33 99 Nasal Cannula 2 PG Care Time/CCT Total # of Minutes Spent Total Time Spent with Patient: Total time spent is greater than 50% in coordination of care (as documented) at patient's floor/unit and/or counseling patient: Coding Level of Care Code 54012 Subseq Hosp Care Lvl 3 Diagnoses End-stage renal disease on hemodialysis N18.6; Z99.2 Hypertension I10 Weakness R53.1 Anemia D64.9 Diabetes mellitus E11.22; N18.6; Z79.4; Z99.2 Diabetes mellitus type: type 2 Diabetes mellitus care home insulin use: with care home use Diabetes mellitus complication status: with kidney complications Diabetes mellitus complication detail: with chronic kidney disease Chronic kidney disease stage: on chronic dialysis Chronic kidney disease-mineral and bone disorder N18.9; E83.9; M89.9 (1) Diabetes mellitus Diabetes mellitus type: type 2 Diabetes mellitus care home insulin use: with long term care pharmacist use Diabetes mellitus complication status: with kidney complications Diabetes mellitus complication detail: with chronic kidney disease Chronic kidney disease stage: on chronic dialysis Qualified Code(s): E11.22 - Type 2 diabetes mellitus with diabetic chronic kidney disease; N18.6 - End stage renal disease; Z79.4 - terminal operations supervisor (current) use of insulin; Z99.2 - Dependence on renal dialysis
[2022-05-14] MEDS: NEPHROCAPS PO SCH ×2 (12:43→13:34)
[2022-05-14] MEDS: GABAPENTIN 300 MG CAP PO SCH (20:57)
[2022-05-14] MEDS: PRIMIDONE 50 MG TAB PO SCH (20:57)
[2022-05-14] MEDS: LEVOTHYROXINE SODIUM 100 MCG TABLET PO SCH (21:00)
[2022-05-14] MEDS: ATORVASTATIN 20 MG TAB PO SCH (22:07)
[2022-05-15] MEDS: INSULIN ASPART PER UNIT SC SCH ×4 (08:27→20:42)
[2022-05-15] MEDS: CHOLECALCIFEROL 1,000 UNITS 25 MCG TAB PO SCH (09:59)
[2022-05-15] MEDS: traMADol HCL 50 MG TABLET PO SCH ×2 (09:59→20:45)
[2022-05-15] MEDS: PANTOprazole 40 MG TAB PO SCH ×2 (09:59→20:47)
[2022-05-15] MEDS: carvediloL 12.5 MG TAB PO SCH ×2 (09:59→20:46)
[2022-05-15] MEDS: HEPARIN SOD 5,000 UNIT/0.5 ML VIAL SQ SCH ×2 (10:00→20:47)
[2022-05-15] MEDS: CALCIUM ACETATE 667 MG CAP/TAB PO SCH ×3 (10:00→16:50)
[2022-05-15] MEDS: VENLAFAXINE HCL XR 75 MG CAPXR PO SCH (10:00)
[2022-05-15] MEDS: BUMETANIDE 1 MG TAB PO SCH ×2 (10:00→16:50)
[2022-05-15] MEDS: amLODIPine BESYLATE 5 MG TAB PO SCH (10:00)
--- NOTE | 2022-05-15 10:05 | Nephrology Progress Note ---
Date of Service May 15, 2022 Assessment & Plan (1) End-stage renal disease on hemodialysis: (2) Hypertension: (3) Weakness: (4) Anemia: (5) Diabetes mellitus: (6) Chronic kidney disease-mineral and bone disorder: Plan ESRD on HD, admitted on 04/29/22 with generalized weakness, workup unremarkable. Noted to have elevated troponin, cardiac catheterization was unremarkable. Overall physically deconditioned and 2 person assist with activity and waiting for rehab placement. BP fair, electrolyte volume status acceptable. --had HD yesterday, waiting for rehab DC. --Dose medications for eGFR less than 10, maintain low-salt, low-potassium diet. If BP again high, BB or doxazosin can be considered. Will follow. Admission and Anticipated Discharge Date Admission Date: April 28, 2022 Jorge Watson was seen and evaluated during HD this morning. Much more awake and alert, denies shortness of breath or chest pain. Electrolyte has been acceptable. Review of Systems Review of Systems: Detailed review of system was otherwise unremarkable. Physical Exam Constitutional: WD/WN, vitals as above + ill appearing; no acute distress Eyes: + anicteric sclerae Respiratory: no respiratory distress Auscultation: lungs clear to auscultation bilaterally Cardiovascular: Rate/Rhythm: regular rate and regular rhythm Heart Sounds: normal S1 and normal S2 Extremities: + AV fistula ( With decent thrill and bruit); no edema Neurologic: + focal motor deficit (generalized muscle weakness, decreased muscle strength) Psychiatric: Orientation: alert and oriented x 3 Results & Data ([facility]) Vital Signs (Past 12 Hours) Vital Signs Temp Pulse Pulse Resp BP BP Pulse Ox 05/15/22 08:00 36.8 C 74 20 169/70 H 97 05/14/22 23:22 37.0 C 66 20 163/81 H 98 O2 Del Method O2 Flow Rate 05/15/22 08:00 Nasal Cannula 2 05/14/22 23:22 Nasal Cannula 2.0 PG Care Time/CCT Total # of Minutes Spent Total Time Spent with Patient: Total time spent is greater than 50% in coordination of care (as documented) at patient's floor/unit and/or counseling patient: Coding Level of Care Code 70566 Subseq Hosp Care Lvl 2 Diagnoses End-stage renal disease on hemodialysis N18.6; Z99.2 Hypertension I10 Weakness R53.1 Anemia D64.9 Diabetes mellitus E11.22; N18.6; Z79.4; Z99.2 Diabetes mellitus type: type 2 Diabetes mellitus longterm insulin use: with longterm use Diabetes mellitus complication status: with kidney complications Diabetes mellitus complication detail: with chronic kidney disease Chronic kidney disease stage: on chronic dialysis Chronic kidney disease-mineral and bone disorder N18.9; E83.9; M89.9 (1) Diabetes mellitus Diabetes mellitus type: type 2 Diabetes mellitus intermission coordinator insulin use: with intermission coordinator use Diabetes mellitus complication status: with kidney complications Diabetes mellitus complication detail: with chronic kidney disease Chronic kidney disease stage: on chronic dialysis Qualified Code(s): E11.22 - Type 2 diabetes mellitus with diabetic chronic kidney disease; N18.6 - End stage renal disease; Z79.4 - USP (current) use of insulin; Z99.2 - Dependence on renal dialysis
[2022-05-15] MEDS: SODIUM ZIRCONIUM CYCLOSILICATE 10 GM PACKET PO SCH (12:37)
[2022-05-15] MEDS: NEPHROCAPS PO SCH (12:37)
--- NOTE | 2022-05-15 12:49 | Hospitalist Progress Note ---
Date of Service May 15, 2022 Assessment & Plan (1) Weakness: Plan: Patient admitted to the hospital on account of worsening generalized weakness. There has been minimal improvement with PT, but barely able to participate in PT, only able to transfer to commode and chair. - She is a 2 person assist - Continue physical therapy and occupational therapy. - Anticipate discharge to SNF facility when able. Maybe Wednesday. (2) Hypertension: Plan: Currently on multiple medications for blood pressure control. Amlodipine dosage uptitrated on 05/02. BP was 180/75 in the morning. - Continue carvedilol 12.5 mg PO BID, amlodipine 10 mg PO daily, Bumex 4 mg PO BID - Added losartan 25 mg HS on 05/13 with nephrology approval, but then stopped by nephrology the next day. (3) End-stage renal disease on hemodialysis: Plan: - Appreciate nephrology consultation and management. - Continue hemodialysis schedule as currently ordered. On a TTH schedule. (4) Myoclonus: Plan: Earlier in this admission (~05/11), she was quite lethargic. I noted that her gabapentin was higher than recommended for ESRD. Her primodone also was much higher than recommended. Lowered both substantially. No increase noted in her baseline tremor (which I am not even really noticing in the hospital). - Continue gabapentin 300 mg PO HS TuThSa (after dialysis) - Continue primidone 50 mg PO HS (5) Transaminitis: Plan: AST/ALT were 290/124 on admission on 04/28. Slightly higher on 04/29, then downtrended. Priors had been normal. Liver u/s on 04/28 negative for acute findings. - Rechecked on 05/12. Entirely back to normal at AST/ALT of 13/8. Tbili and protein normal as well. Given the fact that it was at this point 2 weeks ago, not sure if we will determine a cause. (6) Elevated troponin: Plan: Troponins elevated to 83 on admission. Possibly demand ischemia and ESRD. [facility] on 05/01: Normal coronaries found. No evidence of acute MA. - No further follow-up needed (7) Chronic respiratory failure with hypoxia: Plan: Unclear if this is due to mild hypervolemia from ESRD. - Supplemental oxygen per nasal cannula to maintain saturation greater than 90%. As of 12/13, on 2L NC. (8) Diabetes mellitus: Plan: A1c was 5.7% in 02/2022, though this is an imperfect measure in ESRD. She has actually had hypoglycemic episodes in the hospital, and sliding scale insulin coverage has been discontinued. - Monitor blood sugars ACHS -> Re-added low-dose aspart on 05/12 as her sugars were higher, but it is a very low-dose regimen. Sugars 120 - 250 in last 24 hours. (9) Anemia: Plan: Chronic due to end-stage renal disease. - Hgb has been stable ~10.5 mg/dL in last few days. (10) Hypothyroidism: Plan: Last TSH was 2.47 on 04/28/2022. - Continue current levothyroxine 100 mcg QPM (11) Vitamin D deficiency: Plan: - Continue vitamin D replacement (12) Dyslipidemia: Plan: - Continue atorvastatin (13) Depression with anxiety: Plan: Appears stable at this time. - Lowered venlafaxine ER to 75 mg PO daily for renal function Plan VTE ppx: Heparin 5,000 units SQ Q12h Admission and Anticipated Discharge Date Admission Date: April 28, 2022 Subjective Doing fine today. A bit tired in the morning, but otherwise ok. No issues overnight. Reports no fevers/chills, chest pain, shortness of breath, abdominal pain, nausea, or vomiting. Physical Exam Constitutional: WD/WN, vitals as above Eyes: EOM intact bilaterally; no conjunctival abnormality ENMT: external ear and nose normal, oropharynx normal Neck: trachea midline, no thyromegaly normal visual inspection Respiratory: normal respiratory effort, lungs clear to auscultation no respiratory distress Cardiovascular: RRR, no murmur, no edema Gastrointestinal (Abdomen): Inspection/Auscultation: abdomen normal to inspection; abdomen not distended Musculoskeletal: no cyanosis or clubbing, extremities motor strength 5/5 Skin: no rashes, warm and dry Neurologic: moves all extremities and awake Psychiatric: Orientation: alert, oriented to person and cooperative Results & Data Results & Data ([facility]) Vital Signs (Past 12 Hours) Vital Signs Temp Pulse Resp BP Pulse Ox O2 Del Method O2 Flow Rate 05/15/22 12:09 36.7 C 77 18 159/86 H 99 Nasal Cannula 05/15/22 08:00 Nasal Cannula 2 05/15/22 08:00 36.8 C 74 20 169/70 H 97 Nasal Cannula 2 PG Care Time/CCT Total # of Minutes Spent Total Time Spent with Patient: Total time spent is greater than 50% in coordination of care (as documented) at patient's floor/unit and/or counseling patient: Coding Level of Care Code 07328 Subseq Hosp Care Lvl 2 Diagnoses Weakness R53.1 Hypertension I10 End-stage renal disease on hemodialysis N18.6; Z99.2 Myoclonus G25.3 Transaminitis R74.01 Elevated troponin R77.8 Chronic respiratory failure with hypoxia J96.11 Diabetes mellitus E11.22; N18.6; Z79.4; Z99.2 Diabetes mellitus type: type 2 Diabetes mellitus long term care phlebotomist insulin use: with detention use Diabetes mellitus complication status: with kidney complications Diabetes mellitus complication detail: with chronic kidney disease Chronic kidney disease stage: on chronic dialysis Anemia D64.9 Hypothyroidism E03.9 Hypothyroidism type: unspecified Vitamin D deficiency E55.9 Dyslipidemia E78.5 Depression with anxiety F41.8 (1) Diabetes mellitus Diabetes mellitus type: type 2 Diabetes mellitus long term care phlebotomist insulin use: with long term care phlebotomist use Diabetes mellitus complication status: with kidney complications Diabetes mellitus complication detail: with chronic kidney disease Chronic kidney disease stage: on chronic dialysis Qualified Code(s): E11.22 - Type 2 diabetes mellitus with diabetic chronic kidney disease; N18.6 - End stage renal disease; Z79.4 - skilled nursing (current) use of insulin; Z99.2 - Dependence on renal dialysis (2) Hypothyroidism Hypothyroidism type: unspecified Qualified Code(s): E03.9 - Hypothyroidism, unspecified
[2022-05-15] MEDS: PRIMIDONE 50 MG TAB PO SCH (20:46)
[2022-05-15] MEDS: ATORVASTATIN 20 MG TAB PO SCH (20:47)
[2022-05-15] MEDS: LEVOTHYROXINE SODIUM 100 MCG TABLET PO SCH (20:47)
[2022-05-16 06:28] LABS: Hematocrit (blood only) 32.5 % (34.1-44.9); Hemoglobin 10.2 g/dl (12.0-16.0); Mean Corpuscular Hemoglobin 31.5 pg (25.0-34.0); Mean Corpuscular Hgb Conc 31.4 g/dL (32.0-36.0); Mean Corpuscular Volume 100.3 fL (80.0-100.0); Mean Platelet Volume 10.4 fL (9.4-12.3); Platelet Count 212 K/uL (130-400); RDW Coefficient of Variation 14.9 % (11.5-14.5); RDW Standard Deviation 55.2 fL (36.4-46.3); Red Blood Count 3.24 M/uL (3.93-5.22); White Blood Count 7.43 K/ul (4.8-10.8)
[2022-05-16 06:58] LABS: BUN Creatinine Ratio 11.2 (10-20); Calcium 9.3 mg/dl (8.5-10.1); Creatinine Clr Calc Pharmacy 7.7 ml/min; Est GFR (African American) 7.1 ml/min; Est GFR (Non-African American) 6.1 ml/min; Potassium 3.9 mmol/L (3.5-5.1)
[2022-05-16] MEDS: PANTOprazole 40 MG TAB PO SCH ×2 (08:23→21:03)
[2022-05-16] MEDS: BUMETANIDE 1 MG TAB PO SCH ×2 (08:23→17:21)
[2022-05-16] MEDS: carvediloL 12.5 MG TAB PO SCH ×2 (08:23→21:04)
[2022-05-16] MEDS: CHOLECALCIFEROL 1,000 UNITS 25 MCG TAB PO SCH (08:23)
[2022-05-16] MEDS: CALCIUM ACETATE 667 MG CAP/TAB PO SCH ×3 (08:23→17:21)
[2022-05-16] MEDS: amLODIPine BESYLATE 5 MG TAB PO SCH (08:23)
[2022-05-16] MEDS: VENLAFAXINE HCL XR 75 MG CAPXR PO SCH (08:24)
[2022-05-16] MEDS: HEPARIN SOD 5,000 UNIT/0.5 ML VIAL SQ SCH ×2 (08:24→21:04)
[2022-05-16] MEDS: INSULIN ASPART PER UNIT SC SCH ×4 (08:34→21:47)
[2022-05-16] MEDS: traMADol HCL 50 MG TABLET PO SCH ×2 (08:36→21:03)
[2022-05-16] MEDS: ACETAMINOPHEN 325 MG TAB PO PRN (10:07)
--- NOTE | 2022-05-16 11:41 | Nephrology Progress Note ---
Date of Service May 16, 2022 Assessment & Plan (1) End-stage renal disease on hemodialysis: Plan: ESRD on HD TTS. Outpatient Rx 4 hours on 180 optiflux, 2 K bath. EDW 92 kg. Qb 350-400. Shirley remains well below EDW. Outpatient dry weight to be adjusted. Treatment time shortened to 3.5 hours while inpatient with adequate clearance. AVF is functioning well. Remains on Lokelma on non-HD days. Low potassium diet. Shirley is maintained on Bumex. Medications are appropriately dosed for kidney function. Tolerating reduced dose gabapentin. Maintained on renal vitamin. (2) Anemia: Plan: Epogen held with Hgb >10 today. (3) Chronic kidney disease-mineral and bone disorder: Plan: Renal diet. Continue Phoslo QAC. (4) Hypertension: Plan: BP improved with increased dose amlodipine this admission. Antihypertensives held pre-HD. Volume status reasonably controlled. UF goal today 3-2.5 L. Admission and Anticipated Discharge Date Admission Date: April 28, 2022 Subjective No acute events overnight. Shirley was seen and evaluated during hemodialysis this morning. I met with the patient's in her hospital room. Both Shirley and her expressed frustration that she is still in the hospital. They were under the understanding that she would be discharged to rehab this weekend. Shirley states that she feels well. She remains very weak. Mobility is limited. She reports pain in her neck during dialysis. This is chronic and typically managed with a topical lotion applied by her . He will be brought to the unit to assist. BP is chronically low with HD. She is tolerating UF well. Review of Systems Review of Systems: All systems reviewed & are unremarkable except as noted in HPI & below Physical Exam Constitutional: + frail appearing; no acute distress Eyes: + anicteric sclerae; no corneal abnormality ENMT: Mouth: + dry oral mucous membranes; no oral mucosal abnormality Neck: normal visual inspection and trachea midline Respiratory: normal respiratory effort Auscultation: lungs clear to auscultation bilaterally Cardiovascular: Heart Sounds: normal S1, normal S2 and + murmur Extremities: + AV fistula; no edema Musculoskeletal: Extremities: no cyanosis and no clubbing Skin: normal turgor; no lesions Neurologic: Motor/Sensory: no tremor and no asterixis Psychiatric: Orientation: alert and oriented x 3 Results & Data ([facility]) Vital Signs (Past 12 Hours) Vital Signs Temp Pulse Pulse Pulse Resp BP BP 05/16/22 11:15 60 97/50 L 05/16/22 10:45 61 147/73 H 05/16/22 10:15 58 L 165/79 H 05/16/22 09:45 60 164/72 H 05/16/22 09:34 36.9 C 64 05/16/22 08:25 36.4 C L 65 18 171/74 H 05/16/22 07:39 05/16/22 03:38 59 L 18 BP Pulse Ox O2 Del Method O2 Flow Rate 05/16/22 11:15 05/16/22 10:45 05/16/22 10:15 05/16/22 09:45 05/16/22 09:34 05/16/22 08:25 92 Nasal Cannula 3.0 05/16/22 07:39 Nasal Cannula 2 05/16/22 03:38 185/74 H 98 Room Air 3 Laboratory Results Laboratory Results - last 24 hr 05/15/22 05/15/22 05/16/22 16:04 20:30 06:05 WBC 7.43 RBC 3.24 L Hgb 10.2 L Hct 32.5 L MCV 100.3 H MCH 31.5 MCHC 31.4 L RDW Std Deviation 55.2 H RDW Coeff of Jared 14.9 H Plt Count 212 MPV 10.4 Sodium Potassium Chloride Carbon Dioxide Anion Gap BUN Creatinine Est Cr Clr Drug Dosing Est GFR ( Amer) Est GFR (Non-Af Amer) BUN/Creatinine Ratio Glucose POC Glucose 192 H 137 H Calcium 05/16/22 05/16/22 06:05 08:32 WBC RBC Hgb Hct MCV MCH MCHC RDW Std Deviation RDW Coeff of Jared Plt Count MPV Sodium 134 L Potassium 3.9 Chloride 97 L Carbon Dioxide 28 Anion Gap 9 BUN 69 H Creatinine 6.14 H* Est Cr Clr Drug Dosing 7.7 Est GFR ( Amer) 7.1 Est GFR (Non-Af Amer) 6.1 BUN/Creatinine Ratio 11.2 Glucose 108 H POC Glucose 141 H Calcium 9.3 PG Care Time/CCT Total # of Minutes Spent Total Time Spent with Patient: Total time spent is greater than 50% in coordination of care (as documented) at patient's floor/unit and/or counseling patient: Coding Level of Care Code 33254 Subseq Hosp Care Lvl 3 Diagnoses End-stage renal disease on hemodialysis N18.6; Z99.2 Anemia D64.9 Chronic kidney disease-mineral and bone disorder N18.9; E83.9; M89.9 Hypertension I10
[2022-05-16] MEDS ORDERED: traMADol HCL 50 MG TABLET PO STA (11:53)
[2022-05-16] MEDS: NEPHROCAPS PO SCH (14:12)
--- NOTE | 2022-05-16 15:55 | Hospitalist Progress Note ---
Date of Service May 16, 2022 Assessment & Plan (1) Weakness: Plan: Patient admitted to the hospital on account of worsening generalized weakness. There has been minimal improvement with PT, but barely able to participate in PT, only able to transfer to commode and chair. - She is a 2 person assist - Continue physical therapy and occupational therapy. - Anticipate discharge to SNF facility when able. Maybe Wednesday vs. next week. (2) Hypertension: Plan: Currently on multiple medications for blood pressure control. Amlodipine dosage uptitrated on 05/02. BP was 180/75 in the morning. - Continue carvedilol 12.5 mg PO BID, amlodipine 10 mg PO daily, Bumex 4 mg PO BID - Added losartan 25 mg HS on 05/13 with nephrology approval, but then stopped by nephrology the next day. (3) End-stage renal disease on hemodialysis: Plan: - Appreciate nephrology consultation and management. - Continue hemodialysis schedule as currently ordered. On a TTH schedule. Needs to switch to [facility] for [facility]. (4) Myoclonus: Plan: Earlier in this admission (~05/11), she was quite lethargic. I noted that her gabapentin was higher than recommended for ESRD. Her primodone also was much higher than recommended. Lowered both substantially. No increase noted in her baseline tremor (which I am not even really noticing in the hospital). - Continue gabapentin 300 mg PO HS TuThSa (after dialysis) - Continue primidone 50 mg PO HS (5) Transaminitis: Plan: AST/ALT were 290/124 on admission on 04/28. Slightly higher on 04/29, then downtrended. Priors had been normal. Liver u/s on 04/28 negative for acute f indings. - Rechecked on 05/12. Entirely back to normal at AST/ALT of 13/8. Tbili and protein normal as well. Given the fact that it was at this point 2 weeks ago, not sure if we will determine a cause. (6) Elevated troponin: Plan: Troponins elevated to 83 on admission. Possibly demand ischemia and ESRD. [facility] on 05/01: Normal coronaries found. No evidence of acute MT. - No further follow-up needed (7) Chronic respiratory failure with hypoxia: Plan: Unclear if this is due to mild hypervolemia from ESRD. - Supplemental oxygen per nasal cannula to maintain saturation greater than 90%. As of 05/16, on 3L NC. (8) Diabetes mellitus: Plan: A1c was 5.7% in 02/2022, though this is an imperfect measure in ESRD. She has actually had hypoglycemic episodes in the hospital, and sliding scale insulin coverage has been discontinued. - Monitor blood sugars ACHS -> Re-added low-dose aspart on 05/12 as her sugars were higher, but it is a very low-dose regimen. Sugars 110 - 170 in last 24 hours. (9) Anemia: Plan: Chronic due to end-stage renal disease. - Hgb has been stable ~10.5 mg/dL in last few days. (10) Hypothyroidism: Plan: Last TSH was 2.47 on 04/28/2022. - Continue current levothyroxine 100 mcg QPM (11) Vitamin D deficiency: Plan: - Continue vitamin D replacement (12) Dyslipidemia: Plan: - Continue atorvastatin (13) Depression with anxiety: Plan: Appears stable at this time. - Lowered venlafaxine ER to 75 mg PO daily for renal function Plan VTE ppx: Heparin 5,000 units SQ Q12h Admission and Anticipated Discharge Date Admission Date: April 28, 2022 Subjective No major issues today. Feeling ok. Seen during dialysis where she is pretty sleepy. Reports no fevers/chills, chest pain, shortness of breath, abdominal pain, nausea, or vomiting. Physical Exam Constitutional: WD/WN, vitals as above Eyes: EOM intact bilaterally; no conjunctival abnormality ENMT: external ear and nose normal, oropharynx normal Neck: trachea midline, no thyromegaly normal visual inspection Respiratory: normal respiratory effort, lungs clear to auscultation no respiratory distress Cardiovascular: RRR, no murmur, no edema Gastrointestinal (Abdomen): Inspection/Auscultation: abdomen normal to inspection; abdomen not distended Musculoskeletal: no cyanosis or clubbing, extremities motor strength 5/5 Skin: no rashes, warm and dry Neurologic: moves all extremities and awake Psychiatric: Orientation: alert, oriented to person and cooperative Results & Data Results & Data ([facility]) Vital Signs (Past 12 Hours) Vital Signs Temp Pulse Pulse Pulse Resp BP BP 05/16/22 14:34 36.8 C 64 16 05/16/22 13:07 36.7 C 56 L 150/66 H 05/16/22 12:45 56 L 111/61 05/16/22 12:15 51 L 91/51 L 05/16/22 11:33 52 L 118/58 L 05/16/22 11:45 49 L 133/70 05/16/22 11:30 67 84/54 L 05/16/22 11:15 60 97/50 L 05/16/22 10:45 61 147/73 H 05/16/22 10:15 58 L 165/79 H 05/16/22 09:45 60 164/72 H 05/16/22 09:34 36.9 C 64 05/16/22 08:25 36.4 C L 65 18 171/74 H 05/16/22 07:39 BP Pulse Ox O2 Del Method O2 Flow Rate 05/16/22 14:34 147/85 H 95 Nasal Cannula 3 05/16/22 13:07 05/16/22 12:45 05/16/22 12:15 05/16/22 11:33 05/16/22 11:45 05/16/22 11:30 05/16/22 11:15 05/16/22 10:45 05/16/22 10:15 05/16/22 09:45 05/16/22 09:34 05/16/22 08:25 92 Nasal Cannula 3.0 05/16/22 07:39 Nasal Cannula 2 PG Care Time/CCT Total # of Minutes Spent Total Time Spent with Patient: Total time spent is greater than 50% in coordination of care (as documented) at patient's floor/unit and/or counseling patient: Coding Level of Care Code 21844 Subseq Hosp Care Lvl 2 Diagnoses Weakness R53.1 Hypertension I10 End-stage renal disease on hemodialysis N18.6; Z99.2 Myoclonus G25.3 Transaminitis R74.01 Elevated troponin R77.8 Chronic respiratory failure with hypoxia J96.11 Diabetes mellitus E11.22; N18.6; Z79.4; Z99.2 Diabetes mellitus type: type 2 Diabetes mellitus fpc insulin use: with fpc use Diabetes mellitus complication status: with kidney complications Diabetes mellitus complication detail: with chronic kidney disease Chronic kidney disease stage: on chronic dialysis Anemia D64.9 Hypothyroidism E03.9 Hypothyroidism type: unspecified Vitamin D deficiency E55.9 Dyslipidemia E78.5 Depression with anxiety F41.8 (1) Diabetes mellitus Diabetes mellitus type: type 2 Diabetes mellitus long term care pharmacist insulin use: with long term care pharmacist use Diabetes mellitus complication status: with kidney complications Diabetes mellitus complication detail: with chronic kidney disease Chronic kidney disease stage: on chronic dialysis Qualified Code(s): E11.22 - Type 2 diabetes mellitus with diabetic chronic kidney disease; N18.6 - End stage renal disease; Z79.4 - terminal makeup operator (current) use of insulin; Z99.2 - Dependence on renal dialysis (2) Hypothyroidism Hypothyroidism type: unspecified Qualified Code(s): E03.9 - Hypothyroidism, unspecified
[2022-05-16] MEDS: GABAPENTIN 300 MG CAP PO SCH (20:59)
[2022-05-16] MEDS: MELATONIN 3 MG TAB PO PRN (21:02)
[2022-05-16] MEDS: PRIMIDONE 50 MG TAB PO SCH (21:03)
[2022-05-16] MEDS: LEVOTHYROXINE SODIUM 100 MCG TABLET PO SCH (21:03)
[2022-05-16] MEDS: ATORVASTATIN 20 MG TAB PO SCH (21:03)
[2022-05-16] MEDS: POLYETHYLENE (MIRALAX) 17 GM PACK PO PRN (21:52)
[2022-05-17] MEDS: INSULIN ASPART PER UNIT SC SCH ×4 (10:01→20:32)
[2022-05-17] MEDS: amLODIPine BESYLATE 5 MG TAB PO SCH (10:03)
[2022-05-17] MEDS: traMADol HCL 50 MG TABLET PO SCH ×2 (10:05→19:22)
[2022-05-17] MEDS: carvediloL 12.5 MG TAB PO SCH ×2 (10:07→19:26)
[2022-05-17] MEDS: BUMETANIDE 1 MG TAB PO SCH ×2 (10:07→17:56)
[2022-05-17] MEDS: CHOLECALCIFEROL 1,000 UNITS 25 MCG TAB PO SCH (10:08)
[2022-05-17] MEDS: PANTOprazole 40 MG TAB PO SCH ×2 (10:08→19:21)
[2022-05-17] MEDS: CALCIUM ACETATE 667 MG CAP/TAB PO SCH ×3 (10:08→17:57)
[2022-05-17] MEDS: HEPARIN SOD 5,000 UNIT/0.5 ML VIAL SQ SCH ×2 (10:09→19:20)
[2022-05-17] MEDS: VENLAFAXINE HCL XR 75 MG CAPXR PO SCH (10:09)
--- NOTE | 2022-05-17 12:30 | Hospitalist Progress Note ---
Date of Service May 17, 2022 Assessment & Plan (1) Weakness: Plan: Patient admitted to the hospital on account of worsening generalized weakness. There has been minimal improvement with PT, but barely able to participate in PT, only able to transfer to commode and chair. - She is a 2 person assist - Continue physical therapy and occupational therapy. - Anticipate discharge to SNF facility when able. Maybe week. (2) Hypertension: Plan: Currently on multiple medications for blood pressure control. Amlodipine dosage uptitrated on 05/02. BP was 180/75 in the morning. - Continue carvedilol 12.5 mg PO BID, amlodipine 10 mg PO daily, Bumex 4 mg PO BID - Added losartan 25 mg HS on 05/13 with nephrology approval, but then stopped by nephrology the next day. -> Does fall substantially during HD (90/50s). (3) End-stage renal disease on hemodialysis: Plan: - Appreciate nephrology consultation and management. - Continue hemodialysis schedule as currently ordered. On a TTH schedule. Needs to switch to F for [facility]. Nephrology aware. (4) Myoclonus: Plan: Earlier in this admission (~05/11), she was quite lethargic. I noted that her gabapentin was higher than recommended for ESRD. Her primodone also was much higher than recommended. Lowered both substantially. No increase noted in her baseline tremor (which I am not even really noticing in the hospital). - Continue gabapentin 300 mg PO HS TuThSa (after dialysis) - Continue primidone 50 mg PO HS (5) Transaminitis: Plan: AST/ALT were 290/124 on admission on 04/28. Slightly higher on 04/29, then downtrended. Priors had been normal. Liver u/s on 04/28 negative for acute findings. - Rechecked on 05/12. Entirely back to normal at AST/ALT of 13/8. Tbili and protein normal as well. Given the fact that it was at this point 2 weeks ago, not sure if we will determine a cause. (6) Elevated troponin: Plan: Troponins elevated to 83 on admission. Possibly demand ischemia and ESRD. [facility] on 05/01: Normal coronaries found. No evidence of acute [place]. - No further follow-up needed (7) Chronic respiratory failure with hypoxia: Plan: Unclear if this is due to mild hypervolemia from ESRD. - Supplemental oxygen per nasal cannula to maintain saturation greater than 90%. As of 05/16, on 3L NC. (8) Diabetes mellitus: Plan: A1c was 5.7% in 02/2022, though this is an imperfect measure in ESRD. She has actually had hypoglycemic episodes in the hospital, and sliding scale insulin coverage has been discontinued. - Monitor blood sugars ACHS -> Re-added low-dose aspart on 05/12 as her sugars were higher, but it is a very low-dose regimen. Sugars 100 - 230 in last 24 hours. No change. (9) Anemia: Plan: Chronic due to end-stage renal disease. - Hgb has been stable ~10.5 mg/dL in last few days. (10) Hypothyroidism: Plan: Last TSH was 2.47 on 04/28/2022. - Continue current levothyroxine 100 mcg QPM (11) Vitamin D deficiency: Plan: - Continue vitamin D replacement (12) Dyslipidemia: Plan: - Continue atorvastatin (13) Depression with anxiety: Plan: Appears stable at this time. - Lowered venlafaxine ER to 75 mg PO daily for renal function Plan VTE ppx: Heparin 5,000 units SQ Q12h Admission and Anticipated Discharge Date Admission Date: April 28, 2022 Subjective Doing better today. Shoulder is less painful after the extra tramadol dose yesterday. Otherwise, no major issues. Physical Exam Constitutional: WD/WN, vitals as above Eyes: EOM intact bilaterally; no conjunctival abnormality ENMT: external ear and nose normal, oropharynx normal Neck: trachea midline, no thyromegaly normal visual inspection Respiratory: normal respiratory effort, lungs clear to auscultation no respiratory distress Cardiovascular: RRR, no murmur, no edema Gastrointestinal (Abdomen): Inspection/Auscultation: abdomen normal to inspection; abdomen not distended Musculoskeletal: no cyanosis or clubbing, extremities motor strength 5/5 Skin: no rashes, warm and dry Neurologic: moves all extremities and awake Psychiatric: Orientation: alert, oriented to person and cooperative Results & Data Results & Data ([facility]) Vital Signs (Past 12 Hours) Vital Signs Temp Pulse Resp BP Pulse Ox O2 Del Method O2 Flow Rate 05/17/22 07:45 36.5 C 57 L 18 153/79 H 100 Nasal Cannula 2.5 PG Care Time/CCT Total # of Minutes Spent Total Time Spent with Patient: Total time spent is greater than 50% in coordination of care (as documented) at patient's floor/unit and/or counseling patient: Coding Level of Care Code 66047 Subseq Hosp Care Lvl 2 Diagnoses Weakness R53.1 Hypertension I10 End-stage renal disease on hemodialysis N18.6; Z99.2 Myoclonus G25.3 Transaminitis R74.01 Elevated troponin R77.8 Chronic respiratory failure with hypoxia J96.11 Diabetes mellitus E11.22; N18.6; Z79.4; Z99.2 Diabetes mellitus type: type 2 Diabetes mellitus assistant terminal manager insulin use: with mcfp use Diabetes mellitus complication status: with kidney complications Diabetes mellitus complication detail: with chronic kidney disease Chronic kidney disease stage: on chronic dialysis Anemia D64.9 Hypothyroidism E03.9 Hypothyroidism type: unspecified Vitamin D deficiency E55.9 Dyslipidemia E78.5 Depression with anxiety F41.8 (1) Diabetes mellitus Diabetes mellitus type: type 2 Diabetes mellitus mcfp insulin use: with assistant terminal manager use Diabetes mellitus complication status: with kidney complications Diabetes mellitus complication detail: with chronic kidney disease Chronic kidney disease stage: on chronic dialysis Qualified Code(s): E11.22 - Type 2 diabetes mellitus with diabetic chronic kidney disease; N18.6 - End stage renal disease; Z79.4 - jail (current) use of insulin; Z99.2 - Dependence on renal dialysis (2) Hypothyroidism Hypothyroidism type: unspecified Qualified Code(s): E03.9 - Hypothyroidism, unspecified
[2022-05-17] MEDS: NEPHROCAPS PO SCH (12:34)
[2022-05-17] MEDS: ACETAMINOPHEN 325 MG TAB PO PRN (12:34)
[2022-05-17] MEDS: POLYETHYLENE (MIRALAX) 17 GM PACK PO PRN (12:34)
[2022-05-17] MEDS: SODIUM ZIRCONIUM CYCLOSILICATE 10 GM PACKET PO SCH (12:41)
--- NOTE | 2022-05-17 13:17 | Nephrology Progress Note ---
Date of Service May 17, 2022 Assessment & Plan (1) End-stage renal disease on hemodialysis: Plan: ESRD on HD TTS. Outpatient Rx 4 hours on 180 optiflux, 2 K bath. EDW 92 kg. Qb 350-400. AVF is functioning well. Adequate clearance with HD yesterday. Volume status controlled. BP acceptable. No needs today. Possible transition to MWF schedule at [facility] post discharge. Remains on Lokelma on non-HD days. Low potassium diet. Shirley is maintained on Bumex. Medications are appropriately dosed for kidney function. Tolerating reduced dose gabapentin. Maintained on renal vitamin. (2) Anemia: Plan: Epogen held with Hgb >10 today. (3) Chronic kidney disease-mineral and bone disorder: Plan: Renal diet. Continue Phoslo QAC. (4) Hypertension: Plan: BP improved with increased dose amlodipine this admission. Antihypertensives held pre-HD. Volume status controlled. Admission and Anticipated Discharge Date Admission Date: April 28, 2022 Subjective No acute events overnight. No complaints this AM. Tolerated HD yesterday without complications. Evaluated with her at the bedside today. I discussed the disposition plan with Dr. Prather this AM. Review of Systems Review of Systems: All systems reviewed & are unremarkable except as noted in HPI & below Physical Exam Constitutional: + frail appearing; no acute distress Eyes: + anicteric sclerae; no corneal abnormality ENMT: Mouth: + dry oral mucous membranes; no oral mucosal abnormality Neck: normal visual inspection and trachea midline Respiratory: normal respiratory effort Auscultation: lungs clear to auscultation bilaterally Cardiovascular: Rate/Rhythm: + bradycardic Heart Sounds: normal S1, normal S2 and + murmur Extremities: + AV fistula; no edema Musculoskeletal: Extremities: no cyanosis and no clubbing Skin: normal turgor; no lesions Neurologic: Motor/Sensory: no tremor and no asterixis Psychiatric: Orientation: alert, oriented x 3 and oriented to person; + not oriented to place and + not oriented to time Results & Data ([place]) Vital Signs (Past 12 Hours) Vital Signs Temp Pulse Resp BP Pulse Ox O2 Del Method O2 Flow Rate 05/17/22 07:45 36.5 C 57 L 18 153/79 H 100 Nasal Cannula 2.5 Laboratory Results Laboratory Results - last 24 hr 05/16/22 05/16/22 05/16/22 13:59 17:13 20:46 POC Glucose 172 H 237 H 236 H 05/17/22 05/17/22 08:18 12:14 POC Glucose 99 235 H PG Care Time/CCT Total # of Minutes Spent Total Time Spent with Patient: Total time spent is greater than 50% in coordination of care (as documented) at patient's floor/unit and/or counseling patient: Coding Level of Care Code 77738 Subseq Hosp Care Lvl 3 Diagnoses End-stage renal disease on hemodialysis N18.6; Z99.2 Anemia D64.9 Chronic kidney disease-mineral and bone disorder N18.9; E83.9; M89.9 Hypertension I10
[2022-05-17] MEDS: LEVOTHYROXINE SODIUM 100 MCG TABLET PO SCH (19:21)
[2022-05-17] MEDS: PRIMIDONE 50 MG TAB PO SCH (19:21)
[2022-05-17] MEDS: ATORVASTATIN 20 MG TAB PO SCH (19:22)
[2022-05-17] MEDS ORDERED: SIMETHICONE 80 MG CHEW PO STA (22:33)
[2022-05-17] MEDS: MELATONIN 3 MG TAB PO PRN (22:58)
--- NOTE | 2022-05-18 07:55 | Hospitalist Progress Note ---
Date of Service May 18, 2022 Assessment & Plan (1) Weakness: Plan: Patient admitted to the hospital on account of worsening generalized weakness. There has been minimal improvement with PT, but barely able to participate in PT, only able to transfer to commode and chair. - She is a 2 person assist - Continue physical therapy and occupational therapy. - Anticipate discharge to SNF facility when able. Maybe week. 05/18 Of note, review of PCP note on 04/08/22, they had increased her Venlafaxine to 150mg, decreased primidone to 50mg +100mg +50mg daily as was not tolerating 100mg TID dosing due to fatigue --> As below, primidone dose for HD patient 50mg, venlafaxine decrease 75 Noted does have increased risk of bleeding with venlafaxine, also appears patient on ibuprofen 600mg BID at home in patient with HD....had gotten dose 600mg BID inpatient on 04/28 before stopped. She was also on 300mg gabapentin BID, max dose w/ ESRD 300mg/daily Patient did have elevated LFTs on admission, ?if related to medications/acute liver failure causing weakness. BPs elevated on admit/not hypotensive No CTAP obtained, however did have Liver US later in stay and LFTs resolved on repeat testing as medications adjusted, could be from such but will also check lyme/anaplasmosis given weakness/joint pains as well Recommended changes to these medications (could also consider decreasing venlafaxine further), updated on discharge med rec Planning for [facility] at discharge for SNF (2) Hypertension: Plan: Currently on multiple medications for blood pressure control. Amlodipine dosage uptitrated on 05/02. - Continue carvedilol 12.5 mg PO BID, amlodipine 10 mg PO daily (new med), Bumex 4 mg PO BID - Added losartan 25 mg HS on 05/13 with nephrology approval, but then stopped by nephrology the next day. -> Does fall substantially during HD (90/50s) BP stable and currently 131/68 (3) End-stage renal disease on hemodialysis: Plan: Appreciate nephrology consultation and management. Continue hemodialysis schedule as currently ordered. On a TTH schedule. Needs to switch to MWF for [facility]. Nephrology aware. Planning for HD for tomorrow, remains on lokemla on non-HD days, low K diet, bumex (4) Myoclonus: Plan: Earlier in this admission (~05/11), she was quite lethargic. Noted that her gabapentin was higher than recommended for ESRD. Her primodone also was much higher than recommended with recent reports by PCP for decrease due to reported fatigue Lowered both substantially. No increase noted in her baseline tremor (which I am not even really noticing in the hospital and patient states she hasn't had since she was inpatient) - Continue gabapentin 300 mg PO HS TuThSa (after dialysis) - Continue primidone 50 mg PO HS (5) Transaminitis: Plan: AST/ALT were 290/124 on admission on 04/28. Slightly higher on 04/29, then downtrended. Priors had been normal. Liver u/s on 04/28 negative for acute findings. LFTs Rechecked on 05/12 and entirely back to normal at AST/ALT of 13/8. Tbili and protein normal as well. Given the fact that it was at this point 2 weeks ago, not sure if we will determine a cause, however recent inrease in venlafaxine to 75mg and then to 150mg during Oct PCP visit w/ progressive weakness/LFTs on admit could potentially have been contributing as a cause (6) Elevated troponin: Plan: Troponins elevated to 83 on admission. ECHO w/ wma earlier in stay, cards consulted Possibly demand ischemia and ESRD, however did have LHC on 05/01 --> Normal coronaries, No evidence of acute [place]. No further follow-up needed, no CP reported (7) Chronic respiratory failure with hypoxia: Plan: Unclear if this is due to mild hypervolemia from ESRD. - Supplemental oxygen per nasal cannula to maintain saturation greater than 90%. As of 05/16, on 3L NC --> titrated to 100% on 2L currently (8) Diabetes mellitus: Plan: A1c was 5.7% in 02/2022, though this is an imperfect measure in ESRD. She has actually had hypoglycemic episodes in the hospital, and sliding scale insulin coverage has been discontinued. - Monitor blood sugars ACHS -> Re-added low-dose aspart on 05/12 as her sugars were higher, but it is a very low-dose regimen. Sugars 100 - 230 in last 24 hours. No change. (9) Anemia: Plan: Chronic due to end-stage renal disease. - Hgb has been stable ~10.5 mg/dL in last few days. Of note, patient has ibuprofen 600mg BID on home med list, she WAS taking as needed at home but also reports had been taking tylenol more often (?combo Tylenol venlafaxine w/ elevated LFTs?) (10) Hypothyroidism: Plan: Last TSH was 2.47 on 04/28/2022. - Continue current levothyroxine 100 mcg QPM (11) Vitamin D deficiency: Plan: - Continue vitamin D replacement (12) Dyslipidemia: Plan: - Continue atorvastatin (13) Depression with anxiety: Plan: Appears stable at this time. - Lowered venlafaxine ER to 75 mg PO daily for renal function, mood stable. Plan VTE ppx: Heparin 5,000 units SQ Q12h continued inpatient stay planning for SNF at [facility] will need peer-peer done tomorrow by noon Admission and Anticipated Discharge Date Admission Date: April 28, 2022 Supervising Physician Co-Signing Physician Notes Attending Attestation - Chart reviewed, care plan d/w RENO Ochoa. I agree w/ the bergeron components of her documentation. Sebas Britt MD Subjective eval this morning doing well was able to stand with therapy yesterday, did move her bowels (reported some nausea yesterday and was only passing gas). Difficult w/ BMs on bedpan, possibly PT to come by today and try to get up to bedside commode. Breathing stable. Discussed possible increased venlafaxine caused acute liver failure/elevated LFTs, currently down to 75mg daily (note that was increased to 75mg, then increased to 150mg in follow up for February) Also hx tremor, on primidone. She notes she hasn't had any tremor since she's been in the hospital. Discussed continuing lower dose at d/c as well as reduced dose of gabapentin as combination of medications thought to be contributing to worsening weakness, which she reports is improving. Waiting for insurance authorization, possibly d/c to [facility] if auth obtained. Review of Systems Review of Systems: All systems reviewed & are unremarkable except as noted in HPI & below Physical Exam Physical Exam: General: WD/WN obese female sitting up in bed, eating lunch, no acute distress, no tremor noted, on 2L NC HEENT; head normocephalic, thick neck, trachea midline, mmm Resp: diminished in bases, no obvious w/c, on 3L NC CV: bradycardic, regular rhythm, +murmur, no pitting edema/calf tenderness, +AV fistula GI: +BS, soft/NT no marsh MSK/Neuro: no tremor, no focal deficit, follows commands, no facial droop or slurred speech, generalized weakness (reported improved from prior) Psych: alert/oriented x 3, pleasant and cooperative Results & Data Results & Data ([facility]) Vital Signs (Past 12 Hours) Vital Signs Temp Pulse Resp BP Pulse Ox O2 Del Method O2 Flow Rate 05/18/22 07:34 36.4 C L 58 L 16 162/66 H 100 Nasal Cannula 3 05/17/22 22:34 Nasal Cannula 2 Laboratory Results 05/18/22 05/18/22 05/18/22 Range/Units 12:15 08:32 08:32 WBC (4.8-10.8) K/ul RBC (3.93-5.22) M/uL Hgb (12.0-16.0) g/dl Hct (34.1-44.9) % MCV (80.0-100.0) fL MCH (25.0-34.0) pg MCHC (32.0-36.0) g/dL RDW Std Deviation (36.4-46.3) fL RDW Coeff of Jared (11.5-14.5) % Plt Count (130-400) K/uL MPV (9.4-12.3) fL Sodium (136-145) mmol/L Potassium (3.5-5.1) mmol/L Chloride (98-107) mmol/L Carbon Dioxide (21-32) mmol/L Anion Gap (3-11) BUN (6-23) mg/dl Creatinine (0.6-1.2) mg/dl Est Cr Clr Drug Dosing ml/min Est GFR ( Amer) ml/min Est GFR (Non-Af Amer) ml/min BUN/Creatinine Ratio (10-20) Glucose (70-99(Fasting)) mg/dl POC Glucose 184 H (70-99) mg/dl Calcium (8.5-10.1) mg/dl Anaplasma Smear Lyme Disease IgG Ab Negative (Negative) Lyme Disease IgM Ab Negative (Negative) CMV IgM Ab Pending CMV IgG Ab/TORCH Pending 05/18/22 05/18/22 05/18/22 Range/Units 08:32 08:32 08:32 WBC 4.92 (4.8-10.8) K/ul RBC 3.25 L (3.93-5.22) M/uL Hgb 10.1 L (12.0-16.0) g/dl Hct 32.3 L (34.1-44.9) % MCV 99.4 (80.0-100.0) fL MCH 31.1 (25.0-34.0) pg MCHC 31.3 L (32.0-36.0) g/dL RDW Std Deviation 52.4 H (36.4-46.3) fL RDW Coeff of Jared 14.5 (11.5-14.5) % Plt Count 218 (130-400) K/uL MPV 10.1 (9.4-12.3) fL Sodium 131 L (136-145) mmol/L Potassium 4.4 (3.5-5.1) mmol/L Chloride 94 L (98-107) mmol/L Carbon Dioxide 29 (21-32) mmol/L Anion Gap 8 (3-11) BUN 69 H (6-23) mg/dl Creatinine 6.22 H* (0.6-1.2) mg/dl Est Cr Clr Drug Dosing 7.6 ml/min Est GFR ( Amer) 7.0 ml/min Est GFR (Non-Af Amer) 6.0 ml/min BUN/Creatinine Ratio 11.1 (10-20) Glucose 98 (70-99(Fasting)) mg/dl POC Glucose (70-99) mg/dl Calcium 9.0 (8.5-10.1) mg/dl Anaplasma Smear See Comment Lyme Disease IgG Ab (Negative) Lyme Disease IgM Ab (Negative) CMV IgM Ab CMV IgG Ab/TORCH 05/18/22 05/17/22 05/17/22 Range/Units 08:01 20:27 17:09 WBC (4.8-10.8) K/ul RBC (3.93-5.22) M/uL Hgb (12.0-16.0) g/dl Hct (34.1-44.9) % MCV (80.0-100.0) fL MCH (25.0-34.0) pg MCHC (32.0-36.0) g/dL RDW Std Deviation (36.4-46.3) fL RDW Coeff of Jared (11.5-14.5) % Plt Count (130-400) K/uL MPV (9.4-12.3) fL Sodium (136-145) mmol/L Potassium (3.5-5.1) mmol/L Chloride (98-107) mmol/L Carbon Dioxide (21-32) mmol/L Anion Gap (3-11) BUN (6-23) mg/dl Creatinine (0.6-1.2) mg/dl Est Cr Clr Drug Dosing ml/min Est GFR ( Amer) ml/min Est GFR (Non-Af Amer) ml/min BUN/Creatinine Ratio (10-20) Glucose (70-99(Fasting)) mg/dl POC Glucose 104 H 197 H 246 H (70-99) mg/dl Calcium (8.5-10.1) mg/dl Anaplasma Smear Lyme Disease IgG Ab (Negative) Lyme Disease IgM Ab (Negative) CMV IgM Ab CMV IgG Ab/TORCH 05/11/22 Range/Units 06:53 WBC (4.8-10.8) K/ul RBC (3.93-5.22) M/uL Hgb (12.0-16.0) g/dl Hct (34.1-44.9) % MCV (80.0-100.0) fL MCH (25.0-34.0) pg MCHC (32.0-36.0) g/dL RDW Std Deviation (36.4-46.3) fL RDW Coeff of Jared (11.5-14.5) % Plt Count (130-400) K/uL MPV (9.4-12.3) fL Sodium 134 L (136-145) mmol/L Potassium 3.9 (3.5-5.1) mmol/L Chloride 101 (98-107) mmol/L Carbon Dioxide 26 (21-32) mmol/L Anion Gap 7 (3-11) BUN 25 H (6-23) mg/dl Creatinine 5.92 H* D (0.6-1.2) mg/dl Est Cr Clr Drug Dosing 8.4 ml/min Est GFR ( Amer) 7.4 ml/min Est GFR (Non-Af Amer) 6.4 ml/min BUN/Creatinine Ratio 4.2 L (10-20) Glucose 111 H (70-99(Fasting)) mg/dl POC Glucose (70-99) mg/dl Calcium 8.8 (8.5-10.1) mg/dl Anaplasma Smear Lyme Disease IgG Ab (Negative) Lyme Disease IgM Ab (Negative) CMV IgM Ab CMV IgG Ab/TORCH PG Care Time/CCT Total # of Minutes Spent Total Time Spent with Patient: Total time spent is greater than 50% in coordination of care (as documented) at patient's floor/unit and/or counseling patient: Coding Level of Care Code 67870 Subseq Hosp Care Lvl 2 Diagnoses Weakness R53.1 Hypertension I10 End-stage renal disease on hemodialysis N18.6; Z99.2 Myoclonus G25.3 Transaminitis R74.01 Elevated troponin R77.8 Chronic respiratory failure with hypoxia J96.11 Diabetes mellitus E11.22; N18.6; Z79.4; Z99.2 Chronic kidney disease stage: on chronic dialysis Diabetes mellitus complication detail: with chronic kidney disease Diabetes mellitus complication status: with kidney complications Diabetes mellitus termite technician insulin use: with jail use Diabetes mellitus type: type 2 Anemia D64.9 Hypothyroidism E03.9 Hypothyroidism type: unspecified Vitamin D deficiency E55.9 Dyslipidemia E78.5 Depression with anxiety F41.8 (1) Diabetes mellitus Chronic kidney disease stage: on chronic dialysis Diabetes mellitus complication detail: with chronic kidney disease Diabetes mellitus complication status: with kidney complications Diabetes mellitus jail insulin use: with termite technician use Diabetes mellitus type: type 2 Qualified Code(s): E11.22 - Type 2 diabetes mellitus with diabetic chronic kidney disease; N18.6 - End stage renal disease; Z79.4 - jail (current) use of insulin; Z99.2 - Dependence on renal dialysis (2) Hypothyroidism Hypothyroidism type: unspecified Qualified Code(s): E03.9 - Hypothyroidism, unspecified
[2022-05-18 09:02] LABS: Hematocrit (blood only) 32.3 % (34.1-44.9); Hemoglobin 10.1 g/dl (12.0-16.0); Mean Corpuscular Hemoglobin 31.1 pg (25.0-34.0); Mean Corpuscular Hgb Conc 31.3 g/dL (32.0-36.0); Mean Corpuscular Volume 99.4 fL (80.0-100.0); Mean Platelet Volume 10.1 fL (9.4-12.3); Platelet Count 218 K/uL (130-400); RDW Coefficient of Variation 14.5 % (11.5-14.5); RDW Standard Deviation 52.4 fL (36.4-46.3); Red Blood Count 3.25 M/uL (3.93-5.22); White Blood Count 4.92 K/ul (4.8-10.8)
[2022-05-18 09:38] LABS: BUN Creatinine Ratio 11.1 (10-20); Creatinine Clr Calc Pharmacy 7.6 ml/min; Potassium 4.4 mmol/L (3.5-5.1)
[2022-05-18 09:40] LABS: Lyme Ab IgG w/WB Rflx Negative (Negative); Lyme Ab IgM w/WB Rflx Negative (Negative)
[2022-05-18] MEDS: CALCIUM ACETATE 667 MG CAP/TAB PO SCH ×3 (09:41→17:56)
[2022-05-18] MEDS: amLODIPine BESYLATE 5 MG TAB PO SCH (09:41)
[2022-05-18] MEDS: BUMETANIDE 1 MG TAB PO SCH ×2 (09:41→17:56)
[2022-05-18] MEDS: carvediloL 12.5 MG TAB PO SCH ×2 (09:42→20:53)
[2022-05-18] MEDS: CHOLECALCIFEROL 1,000 UNITS 25 MCG TAB PO SCH (09:42)
[2022-05-18] MEDS: PANTOprazole 40 MG TAB PO SCH ×2 (09:43→20:52)
[2022-05-18] MEDS: HEPARIN SOD 5,000 UNIT/0.5 ML VIAL SQ SCH ×2 (09:43→20:53)
[2022-05-18] MEDS: VENLAFAXINE HCL XR 75 MG CAPXR PO SCH (09:43)
[2022-05-18] MEDS: INSULIN ASPART PER UNIT SC SCH ×4 (09:43→21:15)
[2022-05-18] MEDS: traMADol HCL 50 MG TABLET PO SCH ×2 (09:48→20:52)
--- NOTE | 2022-05-18 09:54 | Nephrology Progress Note ---
Date of Service May 18, 2022 Assessment & Plan (1) End-stage renal disease on hemodialysis: Plan: ESRD on HD TTS. Outpatient Rx 4 hours on 180 optiflux, 2 K bath. EDW 92 kg. Qb 350-400. AVF has been functioning well. Volume status controlled. BP acceptable. No needs today. Possible transition to MWF schedule at [facility] post discharge noted. Dispo uncertain at this time. Remains on Lokelma on non-HD days. Low potassium diet. Shirley is maintained on Bumex. Medications are appropriately dosed for kidney function. Tolerating reduced dose gabapentin. Maintained on renal vitamin. (2) Anemia: Plan: Epogen held with Hgb >10. (3) Chronic kidney disease-mineral and bone disorder: Plan: Renal diet. Continue Phoslo QAC. (4) Hypertension: Plan: BP improved with increased dose amlodipine this admission. Antihypertensives held pre-HD. Volume status controlled. Admission and Anticipated Discharge Date Admission Date: April 28, 2022 Subjective No acute events overnight. No complaints this AM. Seen and evaluated with her at the bedside. Review of Systems Review of Systems: All systems reviewed & are unremarkable except as noted in HPI & below Physical Exam Constitutional: + frail appearing; no acute distress Eyes: + anicteric sclerae; no corneal abnormality ENMT: Mouth: no oral mucosal abnormality and oral mucous membranes not dry Neck: normal visual inspection and trachea midline Respiratory: normal respiratory effort Auscultation: lungs clear to auscultation bilaterally Cardiovascular: Rate/Rhythm: + bradycardic Heart Sounds: normal S1, normal S2 and + murmur Extremities: + AV fistula; no edema Musculoskeletal: Extremities: no cyanosis and no clubbing Skin: normal turgor; no lesions Neurologic: Motor/Sensory: no tremor and no asterixis Psychiatric: Orientation: alert and oriented x 3 Results & Data ([facility]) Vital Signs (Past 12 Hours) Vital Signs Temp Pulse Resp BP Pulse Ox O2 Del Method O2 Flow Rate 05/18/22 07:34 36.4 C L 58 L 16 162/66 H 100 Nasal Cannula 3 05/17/22 22:34 Nasal Cannula 2 Laboratory Results Laboratory Results - last 24 hr 05/17/22 05/17/22 05/17/22 12:14 17:09 20:27 WBC RBC Hgb Hct MCV MCH MCHC RDW Std Deviation RDW Coeff of Jared Plt Count MPV Sodium Potassium Chloride Carbon Dioxide Anion Gap BUN Creatinine Est Cr Clr Drug Dosing Est GFR ( Amer) Est GFR (Non-Af Amer) BUN/Creatinine Ratio Glucose POC Glucose 235 H 246 H 197 H Calcium Anaplasma Smear Lyme Disease IgG Ab Lyme Disease IgM Ab CMV IgM Ab CMV IgG Ab/TORCH 05/18/22 05/18/22 05/18/22 08:01 08:32 08:32 WBC 4.92 RBC 3.25 L Hgb 10.1 L Hct 32.3 L MCV 99.4 MCH 31.1 MCHC 31.3 L RDW Std Deviation 52.4 H RDW Coeff of Jared 14.5 Plt Count 218 MPV 10.1 Sodium 131 L Potassium 4.4 Chloride 94 L Carbon Dioxide 29 Anion Gap 8 BUN 69 H Creatinine 6.22 H* Est Cr Clr Drug Dosing 7.6 Est GFR ( Amer) 7.0 Est GFR (Non-Af Amer) 6.0 BUN/Creatinine Ratio 11.1 Glucose 98 POC Glucose 104 H Calcium 9.0 Anaplasma Smear Lyme Disease IgG Ab Lyme Disease IgM Ab CMV IgM Ab CMV IgG Ab/TORCH 05/18/22 05/18/22 05/18/22 08:32 08:32 08:32 WBC RBC Hgb Hct MCV MCH MCHC RDW Std Deviation RDW Coeff of Jared Plt Count MPV Sodium Potassium Chloride Carbon Dioxide Anion Gap BUN Creatinine Est Cr Clr Drug Dosing Est GFR ( Amer) Est GFR (Non-Af Amer) BUN/Creatinine Ratio Glucose POC Glucose Calcium Anaplasma Smear Pending Lyme Disease IgG Ab Negative Lyme Disease IgM Ab Negative CMV IgM Ab Pending CMV IgG Ab/TORCH Pending PG Care Time/CCT Total # of Minutes Spent Total Time Spent with Patient: Total time spent is greater than 50% in coordination of care (as documented) at patient's floor/unit and/or counseling patient: Coding Level of Care Code 33280 Subseq Hosp Care Lvl 3 Diagnoses End-stage renal disease on hemodialysis N18.6; Z99.2 Anemia D64.9 Chronic kidney disease-mineral and bone disorder N18.9; E83.9; M89.9 Hypertension I10
[2022-05-18] MEDS: SODIUM ZIRCONIUM CYCLOSILICATE 10 GM PACKET PO SCH (13:17)
[2022-05-18] MEDS: ACETAMINOPHEN 325 MG TAB PO PRN (13:20)
[2022-05-18] MEDS: NEPHROCAPS PO SCH (13:26)
[2022-05-18] MEDS: PRIMIDONE 50 MG TAB PO SCH (20:52)
[2022-05-18] MEDS: LEVOTHYROXINE SODIUM 100 MCG TABLET PO SCH (20:53)
[2022-05-18] MEDS: ATORVASTATIN 20 MG TAB PO SCH (20:53)
--- NOTE | 2022-05-19 08:14 | Hospitalist Progress Note ---
Date of Service May 19, 2022 Assessment & Plan (1) Weakness: Plan: Patient admitted to the hospital on account of worsening generalized weakness. There has been minimal improvement with PT, but barely able to participate in PT, only able to transfer to commode and chair. - She is a 2 person assist - Continue physical therapy and occupational therapy. - Anticipate discharge to SNF facility when able. Maybe week. 05/19 Of note, review of PCP note on 04/08/22, they had increased her Venlafaxine to 150mg, decreased primidone to 50mg +100mg +50mg daily as was not tolerating 100mg TID dosing due to fatigue --> As below, primidone dose for HD patient 50mg, venlafaxine decrease 75mg Noted does have increased risk of bleeding with venlafaxine, also appears patient on ibuprofen 600mg BID at home in patient with HD....had gotten dose 600mg BID inpatient on 04/28 before stopped. She states does take on occasion. Rec NO NSAIDS She was also on 300mg gabapentin BID, max dose w/ ESRD 300mg/daily Patient did have elevated LFTs on admission, ?if related to medications/acute liver failure causing weakness. BPs elevated on admit/not hypotensive No CTAP obtained, however did have Liver US later in stay and LFTs resolved on repeat testing as medications adjusted, could be from such but will also check lyme/anaplasmosis given weakness/joint pains as well Had been able to get up/use bedside commode with staff yesterday, improvement from days prior and wanting to participate with therapy. Completed peer-peer this morning, overturned and [facility] can accept but pending repeat PT eval to relay information regarding ability to participate Patient in HD until 2pm and had to be there by 2pm but again need therapy evals and will plan for d/c tomorrow. Messaged Dr Patrick regarding if patient need half session HD tomorrow vs can skip and resume new schedule for M/W/F at . Awaiting response but if can skip can send in AM vs possible need for such inpatient however day prior was discussed and if she could have dc yesterday we would have planned for HD for Wednesday to begin with. (2) Hypertension: Plan: Currently on multiple medications for blood pressure control. Amlodipine dosage uptitrated on 05/02. - Continue carvedilol 12.5 mg PO BID, amlodipine 10 mg PO daily (new med), Bumex 4 mg PO BID - Added losartan 25 mg HS on 05/13 with nephrology approval, but then stopped by nephrology the next day. -> Does fall substantially during HD (90/50s) BP stable and currently 125/60 (in HD currently, 13:00, no significant drops w/ current session) (3) End-stage renal disease on hemodialysis: Plan: Appreciate nephrology consultation and management. Continue hemodialysis schedule as currently ordered. On a TTH schedule. Needs to switch to MWF for [facility]. Nephrology aware. In HD currently, messaged Dr Patrick about need for any tomorrow vs switch to M/W/F without need for HD prior to d/c to [facility] Remains on lokemla on non-HD days, low K diet, bumex (4) Myoclonus: Plan: Earlier in this admission (~05/11), she was quite lethargic. Noted that her gabapentin was higher than recommended for ESRD. Her primodone also was much higher than recommended with recent reports by PC P for decrease due to reported fatigue Lowered both substantially. No increase noted in her baseline tremor (which I am not even really noticing in the hospital and patient states she hasn't had since she was inpatient) - Continue gabapentin 300 mg PO HS TuThSa (after dialysis) - Continue primidone 50 mg PO HS Meds changed on med rec for tomorrow. Just need rx sent once dc (5) Transaminitis: Plan: AST/ALT were 290/124 on admission on 04/28. Slightly higher on 04/29, then downtrended. Priors had been normal. Liver u/s on 04/28 negative for acute findings. LFTs Rechecked on 05/12 and entirely back to normal at AST/ALT of 13/8. Tbili and protein normal as well. Given the fact that it was at this point 2 weeks ago, not sure if we will determine a cause, however recent inrease in venlafaxine to 75mg and then to 150mg during Feb PCP visit w/ progressive weakness/LFTs on admit could potentially have been contributing as a cause (6) Elevated troponin: Plan: Troponins elevated to 83 on admission. ECHO w/ wma earlier in stay, cards consulted Possibly demand ischemia and ESRD, however did have LHC on 05/01 --> Normal coronaries, No evidence of acute NC. No further follow-up needed, no CP reported (7) Chronic respiratory failure with hypoxia: Plan: Unclear if this is due to mild hypervolemia from ESRD. - Supplemental oxygen per nasal cannula to maintain saturation greater than 90%. As of 05/16, on 3L NC --> titrated to 100% on 2L currently (8) Diabetes mellitus: Plan: A1c was 5.7% in 02/2022, though this is an imperfect measure in ESRD. She has actually had hypoglycemic episodes in the hospital, and sliding scale insulin coverage has been discontinued. - Monitor blood sugars ACHS -> Re-added low-dose aspart on 05/12 as her sugars were higher, but it is a very low-dose regimen. Sugars 90-197 in last 24 hours. No change. (9) Anemia: Plan: Chronic due to end-stage renal disease. - Hgb has been stable ~10.5 mg/dL in last few days, low prior to HD from volume but stable Of note, patient has ibuprofen 600mg BID on home med list, she WAS taking as needed at home but also reports had been taking tylenol more often (?combo Tylenol venlafaxine w/ elevated LFTs?) Recs NOT to continue any NSAIDs given CKD (10) Hypothyroidism: Plan: Last TSH was 2.47 on 04/28/2022. - Continue current levothyroxine 100 mcg QPM (11) Vitamin D deficiency: Plan: - Continue vitamin D replacement (12) Dyslipidemia: Plan: - Continue atorvastatin (13) Depression with anxiety: Plan: Appears stable at this time. - Lowered venlafaxine ER to 75 mg PO daily for renal function, mood stable. Plan VTE ppx: Heparin 5,000 units SQ Q12h continued inpatient stay, peer-peer completed and approved for [facility] hopefully tomorrow, repeat PT after HD to demonstrate Await response from Dr Patrick on possible need for half treatment HD tomorrow vs resume new M/W/F on Wednesday Admission and Anticipated Discharge Date Admission Date: April 28, 2022 Supervising Physician Co-Signing Physician Notes Attending Attestation - Chart reviewed, care plan d/w RENO Ochoa. I agree w/ the bergeron components of her documentation. Sebas Britt MD Subjective eval this afternoon up in dialysis discussed ambulation/ability to work with staff as was going to attempt bedside commode yesterday. She states they were successful with this and she is motivated and hopeful to get stronger discussed did peer-peer this morning, got accepted but with understanding she was mobile in prior months w/ progressive decline likely from medications, but that need updated therapy notes to demonstrate participate in therapy as prior indicated no real ability to participate which would negate SNF and more appropriate prison care. Discussed as in HD until 2 and they want her there by 2, would need to have therapy eval following dialysis and plan for d/c tomorrow confirming with Dr Patrick that she would be able to miss HD tomorrow vs need half session/[facility]ume [facility] M[facility]. Questions/concerns addressed. Information relayed to CM. Review of Systems Review of Systems: All systems reviewed & are unremarkable except as noted in HPI & below Physical Exam Physical Exam: General: WD/WN obese female sitting up in bed getting HD, NAD, no tremor noted, on 2L NC, no acute distress HEENT; head normocephalic, thick neck, trachea midline, mmm Resp: diminished in bases, no obvious w/c, on 2L CV: bradycardic, regular rhythm, +murmur, no pitting edema/calf tenderness, +AV fistula GI: +BS, soft/NT no marsh MSK/Neuro: no tremor, no focal deficit, follows commands, no facial droop or slurred speech, generalized weakness (reported improved from prior) Psych: alert/oriented x 3, pleasant and cooperative Results & Data Results & Data ([facility]) Vital Signs (Past 12 Hours) Vital Signs Temp Pulse Resp BP Pulse Ox O2 Del Method O2 Flow Rate 05/19/22 07:41 36.5 C 58 L 16 162/68 H 100 Nasal Cannula 2 05/18/22 20:18 Nasal Cannula 05/18/22 21:07 36.5 C 58 L 16 153/76 H 100 Nasal Cannula 3 PG Care Time/CCT Total # of Minutes Spent Total Time Spent with Patient: Total time spent is greater than 50% in coordination of care (as documented) at patient's floor/unit and/or counseling patient: Coding Level of Care Code 74786 Subseq Hosp Care Lvl 3 Diagnoses Weakness R53.1 Hypertension I10 End-stage renal disease on hemodialysis N18.6; Z99.2 Myoclonus G25.3 Transaminitis R74.01 Elevated troponin R77.8 Chronic respiratory failure with hypoxia J96.11 Diabetes mellitus E11.22; N18.6; Z79.4; Z99.2 Chronic kidney disease stage: on chronic dialysis Diabetes mellitus complication detail: with chronic kidney disease Diabetes mellitus complication status: with kidney complications Diabetes mellitus prison insulin use: with prison use Diabetes mellitus type: type 2 Anemia D64.9 Hypothyroidism E03.9 Hypothyroidism type: unspecified Vitamin D deficiency E55.9 Dyslipidemia E78.5 Depression with anxiety F41.8 (1) Diabetes mellitus Chronic kidney disease stage: on chronic dialysis Diabetes mellitus complication detail: with chronic kidney disease Diabetes mellitus complication status: with kidney complications Diabetes mellitus prison insulin use: with watermaster use Diabetes mellitus type: type 2 Qualified Code(s): E11.22 - Type 2 diabetes mellitus with diabetic chronic kidney disease; N18.6 - End stage re nal disease; Z79.4 - extermination inspector (current) use of insulin; Z99.2 - Dependence on renal dialysis (2) Hypothyroidism Hypothyroidism type: unspecified Qualified Code(s): E03.9 - Hypothyroidism, unspecified
[2022-05-19] MEDS: INSULIN ASPART PER UNIT SC SCH ×4 (08:42→20:46)
[2022-05-19] MEDS: HEPARIN SOD 5,000 UNIT/0.5 ML VIAL SQ SCH ×2 (08:45→20:37)
[2022-05-19] MEDS: traMADol HCL 50 MG TABLET PO SCH ×2 (08:45→20:45)
[2022-05-19] MEDS: BUMETANIDE 1 MG TAB PO SCH ×2 (08:46→17:55)
[2022-05-19] MEDS: VENLAFAXINE HCL XR 75 MG CAPXR PO SCH (08:46)
[2022-05-19] MEDS: PANTOprazole 40 MG TAB PO SCH ×2 (08:46→20:36)
[2022-05-19] MEDS: CHOLECALCIFEROL 1,000 UNITS 25 MCG TAB PO SCH (08:46)
[2022-05-19] MEDS: CALCIUM ACETATE 667 MG CAP/TAB PO SCH ×3 (08:46→17:55)
[2022-05-19] MEDS: carvediloL 12.5 MG TAB PO SCH ×2 (08:49→20:35)
[2022-05-19] MEDS: amLODIPine BESYLATE 5 MG TAB PO SCH (08:49)
[2022-05-19 09:02] LABS: Hematocrit (blood only) 30.2 % (34.1-44.9); Hemoglobin 9.6 g/dl (12.0-16.0); Mean Corpuscular Hemoglobin 31.1 pg (25.0-34.0); Mean Corpuscular Hgb Conc 31.8 g/dL (32.0-36.0); Mean Corpuscular Volume 97.7 fL (80.0-100.0); Mean Platelet Volume 10.3 fL (9.4-12.3); Platelet Count 231 K/uL (130-400); RDW Coefficient of Variation 14.6 % (11.5-14.5); RDW Standard Deviation 52.5 fL (36.4-46.3); Red Blood Count 3.09 M/uL (3.93-5.22); White Blood Count 5.35 K/ul (4.8-10.8)
[2022-05-19 09:56] LABS: Albumin Globulin Ratio 0.9 (0.9-2); Albumin Level 3.1 gm/dl (3.4-5.0); BUN Creatinine Ratio 11.5 (10-20); Bilirubin,Total 0.3 mg/dl (0.2-1.0); Calcium 8.9 mg/dl (8.5-10.1); Creatinine Clr Calc Pharmacy 6.4 ml/min; Est GFR (African American) 5.7 ml/min; Est GFR (Non-African American) 4.9 ml/min; Globulin 3.6 gm/dl (2.5-4.0); Magnesium 2.5 mg/dl (1.7-2.4); Potassium 4.5 mmol/L (3.5-5.1); Total Protein 6.7 gm/dl (6.0-8.3)
[2022-05-19] MEDS ORDERED: EPOETIN ALFA 20,000 UNITS/ML VIAL IV ONE (10:39)
--- NOTE | 2022-05-19 10:43 | Nephrology Progress Note ---
Date of Service May 19, 2022 Assessment & Plan (1) End-stage renal disease on hemodialysis: Plan: ESRD on HD TTS. Orders for HD today entered into EHR and reviewed with dialysis nurse. Shirley is tolerating HD well. BP acceptable. Qb at goal. Clearance appropriate. Outpatient Rx 4 hours on 180 optiflux, 2 K bath. EDW 92 kg. Qb 350-400. AVF has been functioning well. Remains on Lokelma on non-HD days. Low potassium diet. Shirley is maintained on Bumex. Medications are appropriately dosed for kidney function. Tolerating reduced dose gabapentin. Maintained on renal vitamin. (2) Anemia: Plan: Epogen 72161 units with HD today. (3) Chronic kidney disease-mineral and bone disorder: Plan: Renal diet. Continue Phoslo QAC. (4) Hypertension: Plan: BP improved with increased dose amlodipine this admission. Antihypertensives held pre-HD. Volume status controlled. Admission and Anticipated Discharge Date Admission Date: April 28, 2022 Subjective No acute events overnight. Shirley was seen and evaluated during hemodialysis this AM. She is tolerating treatment well. Overall she feels well. Continues to express frustration regarding prolonged hospitalization and limited PT. Review of Systems Review of Systems: All systems reviewed & are unremarkable except as noted in HPI & below Physical Exam Constitutional: + frail appearing; no acute distress Eyes: + anicteric sclerae; no corneal abnormality Neck: normal visual inspection and trachea midline Respiratory: normal respiratory effort Auscultation: lungs clear to auscultation bilaterally Cardiovascular: Rate/Rhythm: + bradycardic Heart Sounds: normal S1, normal S2 and + murmur Extremities: + pedal edema and + AV fistula; no edema Musculoskeletal: Extremities: no cyanosis and no clubbing Skin: normal turgor; no lesions Neurologic: Motor/Sensory: no tremor and no asterixis Psychiatric: Orientation: alert and oriented x 3 Results & Data ([facility]) Vital Signs (Past 12 Hours) Vital Signs Temp Pulse Pulse Pulse Resp BP BP 05/19/22 10:00 59 L 133/58 L 05/19/22 09:30 58 L 143/67 H 05/19/22 09:24 58 L 156/77 H 05/19/22 09:16 36.5 C 61 05/19/22 07:41 36.5 C 58 L 16 162/68 H Pulse Ox O2 Del Method O2 Flow Rate 05/19/22 10:00 05/19/22 09:30 05/19/22 09:24 05/19/22 09:16 05/19/22 07:41 100 Nasal Cannula 2 Laboratory Results Laboratory Results - last 24 hr 05/11/22 05/18/22 05/18/22 06:53 12:15 17:01 WBC RBC Hgb Hct MCV MCH MCHC RDW Std Deviation RDW Coeff of Jared Plt Count MPV Sodium 134 L Potassium 3.9 Chloride 101 Carbon Dioxide 26 Anion Gap 7 BUN 25 H Creatinine 5.92 H* D Est Cr Clr Drug Dosing 8.4 Est GFR ( Amer) 7.4 Est GFR (Non-Af Amer) 6.4 BUN/Creatinine Ratio 4.2 L Glucose 111 H POC Glucose 184 H 194 H Calcium 8.8 Magnesium Total Bilirubin AST ALT Alkaline Phosphatase Total Protein Albumin Globulin Albumin/Globulin Ratio 05/18/22 05/19/22 05/19/22 20:19 08:17 08:30 WBC 5.35 RBC 3.09 L Hgb 9.6 L Hct 30.2 L MCV 97.7 MCH 31.1 MCHC 31.8 L RDW Std Deviation 52.5 H RDW Coeff of Jared 14.6 H Plt Count 231 MPV 10.3 Sodium Potassium Chloride Carbon Dioxide Anion Gap BUN Creatinine Est Cr Clr Drug Dosing Est GFR ( Amer) Est GFR (Non-Af Amer) BUN/Creatinine Ratio Glucose POC Glucose 171 H 90 Calcium Magnesium Total Bilirubin AST ALT Alkaline Phosphatase Total Protein Albumin Globulin Albumin/Globulin Ratio 05/19/22 08:30 WBC RBC Hgb Hct MCV MCH MCHC RDW Std Deviation RDW Coeff of Jared Plt Count MPV Sodium 128 L Potassium 4.5 Chloride 91 L Carbon Dioxide 27 Anion Gap 10 BUN 85 H Creatinine 7.37 H* D Est Cr Clr Drug Dosing 6.4 Est GFR ( Amer) 5.7 Est GFR (Non-Af Amer) 4.9 BUN/Creatinine Ratio 11.5 Glucose 88 POC Glucose Calcium 8.9 Magnesium 2.5 H Total Bilirubin 0.3 AST 13 ALT 8 Alkaline Phosphatase 85 Total Protein 6.7 Albumin 3.1 L Globulin 3.6 Albumin/Globulin Ratio 0.9 PG Care Time/CCT Total # of Minutes Spent Total Time Spent with Patient: Total time spent is greater than 50% in coordination of care (as documented) at patient's floor/unit and/or counseling patient: Coding Level of Care Code 88877 Subseq Hosp Care Lvl 3 Diagnoses End-stage renal disease on hemodialysis N18.6; Z99.2 Anemia D64.9 Chronic kidney disease-mineral and bone disorder N18.9; E83.9; M89.9 Hypertension I10
[2022-05-19] MEDS: NEPHROCAPS PO SCH (14:10)
[2022-05-19] MEDS: ATORVASTATIN 20 MG TAB PO SCH (20:36)
[2022-05-19] MEDS: PRIMIDONE 50 MG TAB PO SCH (20:37)
[2022-05-19] MEDS: LEVOTHYROXINE SODIUM 100 MCG TABLET PO SCH (20:37)
[2022-05-19] MEDS: GABAPENTIN 300 MG CAP PO SCH (20:38)
[2022-05-19] MEDS: MELATONIN 3 MG TAB PO PRN (20:45)
[2022-05-20] MEDS: PANTOprazole 40 MG TAB PO SCH (08:17)
[2022-05-20] MEDS: VENLAFAXINE HCL XR 75 MG CAPXR PO SCH (08:17)
[2022-05-20] MEDS: CHOLECALCIFEROL 1,000 UNITS 25 MCG TAB PO SCH (08:18)
[2022-05-20] MEDS: BUMETANIDE 1 MG TAB PO SCH (08:18)
[2022-05-20] MEDS: CALCIUM ACETATE 667 MG CAP/TAB PO SCH (08:18)
[2022-05-20] MEDS: traMADol HCL 50 MG TABLET PO SCH (08:19)
[2022-05-20] MEDS: HEPARIN SOD 5,000 UNIT/0.5 ML VIAL SQ SCH (08:21)
--- NOTE | 2022-05-20 09:03 | Nephrology Progress Note ---
Date of Service May 20, 2022 Assessment & Plan (1) End-stage renal disease on hemodialysis: Plan: ESRD on HD TTS. Completed treatment yesterday with adequate clearance and UF. Volume status controlled. Electrolytes acceptable. Shirley is tolerating HD well. If DC'd today, next treatment of HD will be on Wednesday at [facility]. Outpatient Rx 4 hours on 180 optiflux, 2 K bath. EDW 92 kg. Qb 350-400. AVF has been functioning well. Remains on Lokelma on non-HD days. Low potassium diet. Shirley is maintained on Bumex. Medications are appropriately dosed for kidney function. Tolerating reduced dose gabapentin. Maintained on renal vitamin. (2) Anemia: Plan: Epogen 39307 units with HD provided yesterday. (3) Chronic kidney disease-mineral and bone disorder: Plan: Renal diet. Continue Phoslo QAC. (4) Hypertension: Plan: BP improved with increased dose amlodipine this admission. Antihypertensives held pre-HD. Volume status controlled. Admission and Anticipated Discharge Date Admission Date: April 28, 2022 Subjective No acute events overnight. No complaints this AM. Tolerated HD yesterday without complications. Review of Systems Review of Systems: All systems reviewed & are unremarkable except as noted in HPI & below Physical Exam Constitutional: + frail appearing; no acute distress Eyes: + anicteric sclerae; no corneal abnormality ENMT: Mouth: no oral mucosal abnormality and oral mucous membranes not dry Neck: normal visual inspection and trachea midline Respiratory: normal respiratory effort Auscultation: lungs clear to auscultation bilaterally Cardiovascular: Rate/Rhythm: + bradycardic Heart Sounds: normal S1, normal S2 and + murmur Extremities: + AV fistula; no edema Musculoskeletal: Extremities: no cyanosis and no clubbing Skin: normal turgor; no lesions Neurologic: Motor/Sensory: no tremor and no asterixis Psychiatric: Orientation: alert and cooperative Results & Data ([facility]) Vital Signs (Past 12 Hours) Vital Signs Temp Pulse Pulse Resp BP Pulse Ox O2 Del Method 05/20/22 07:36 36.5 C 62 16 168/69 H 100 Nasal Cannula 05/19/22 22:27 36.8 C 66 18 156/77 H 99 Nasal Cannula O2 Flow Rate 05/20/22 07:36 2 05/19/22 22:27 2 Laboratory Results Laboratory Results - last 24 hr 12/20/22 12/20/22 12/20/22 08:30 08:30 14:08 WBC 5.35 RBC 3.09 L Hgb 9.6 L Hct 30.2 L MCV 97.7 MCH 31.1 MCHC 31.8 L RDW Std Deviation 52.5 H RDW Coeff of Jared 14.6 H Plt Count 231 MPV 10.3 Sodium 128 L Potassium 4.5 Chloride 91 L Carbon Dioxide 27 Anion Gap 10 BUN 85 H Creatinine 7.37 H* D Est Cr Clr Drug Dosing 6.4 Est GFR ( Amer) 5.7 Est GFR (Non-Af Amer) 4.9 BUN/Creatinine Ratio 11.5 Glucose 88 POC Glucose 108 H Calcium 8.9 Magnesium 2.5 H Total Bilirubin 0.3 AST 13 ALT 8 Alkaline Phosphatase 85 Total Protein 6.7 Albumin 3.1 L Globulin 3.6 Albumin/Globulin Ratio 0.9 05/19/22 05/19/22 05/20/22 16:54 20:37 08:11 WBC RBC Hgb Hct MCV MCH MCHC RDW Std Deviation RDW Coeff of Jared Plt Count MPV Sodium Potassium Chloride Carbon Dioxide Anion Gap BUN Creatinine Est Cr Clr Drug Dosing Est GFR ( Amer) Est GFR (Non-Af Amer) BUN/Creatinine Ratio Glucose POC Glucose 171 H 158 H 92 Calcium Magnesium Total Bilirubin AST ALT Alkaline Phosphatase Total Protein Albumin Globulin Albumin/Globulin Ratio PG Care Time/CCT Total # of Minutes Spent Total Time Spent with Patient: Total time spent is greater than 50% in coordination of care (as documented) at patient's floor/unit and/or counseling patient: Coding Level of Care Code 77233 Subseq Hosp Care Lvl 3 Diagnoses End-stage renal disease on hemodialysis N18.6; Z99.2 Anemia D64.9 Chronic kidney disease-mineral and bone disorder N18.9; E83.9; M89.9 Hypertension I10
--- NOTE | 2022-05-20 09:12 | Discharge Summary ---
Date of Service May 20, 2022 Admission HPI Per Admitting Provider Shirley is a 76 year old female with a PMH significant for ESRD on HD TTS, Chronic respiratory failure with hypoxic on baseline 3L NC, DM II, Hypothyroidism, CAD, HFpEF (LVEF of 55-60% as of 02/27/2020), mod tricupid regurg, severe mitral annular calcification, moderate pulmonary HTN, TASH, hyperlipidemia, depression and anxiety, polymyalgia rheumatica, HTN, RSL, resting tremor, and memory changes who presented to the [facility] ED via EMS from home for progressive weakness over the past 3 days. The patient states that she went for Dialysis this morning and had a complete session, but she felt more weak after. In the ED the patient was found to be afebrile, hypertensive at 191/101, and stable on her 3L NC. Labs were remarkable for WBC WNL, stable Hgb and platelets, MCV of 102.8, VBG with pH of 7.34, pCO2 of 76 and pO2 of 21, cr of 4.13, stable sodium & potassium, calcium of 8.4, AG and bicarb WNL, total bili of 0.4 but AST of 290, ALT of 124, and alk phos of 116, TSH was WNL. Chest xray shows "No significant change compared to the prior study. No acute process.". ECG obtained in the ED shows new T-wave inversions noted in the inferior and anterolateral leads. CT of the head was negative for acute changes. At the time of the exam the patient was resting in bed in no acute distress with her /primary caregiver sitting bedside; history was obtained from both. She has had progressive weakness, memory loss, and decreased function over the past year. Over the past 3-4 weeks it has gotten even worse to the point that she was unable to stand/walk today. She was able to get a full session of HD this morning but states that she felt even worse after. She was lying on the couch and was unable to get off the couch and use her cane, normally she is able to ambulate with the use of her cane. Her states that she has not been eating or drinking well over the past few weeks, they again confirm that all of her complaints are chronic at this time. Of note, they confirm that her double vision has been present for the past year, she has also been having left LE swelling for the past year as well. She denies recent fevers, chills, chest pain, new SOB from baseline, abdominal pain, nausea, vomiting, diarrhea, dysuria, hematuria, and recent falls. She confirmed again that she was not having chest pain or abdominal pain at the time of my exam. I spoke to she and her regarding code status, she is a DNR/DNI. Christiano refer to Dr. Mahajan's attestation for any changes to the treatment plan. Admission Exam Per Admitting Provider Physical Exam: General:In no acute distress, stated age, chronically ill-appearing HEENT:Normocephalic, atraumatic, no scleral icterus, patient with right eyelid lower than left which is her baseline, left pupil is asymmetric from previous procedure, right pupil is round and reactive to light, Dry mucus membranes, trachea midline, no thyromegaly Chest/Pulm:No respiratory distress, symmetrical chest expansion, clear breath sounds throughout Cardiac:RRR, systolic murmur noted Abdomen:Negative for ascites and bruising, normoactive bowel sounds, soft, non-tender to palpation throughout Musculoskeletal:Symmetrical and without signs of acute trauma, upper and lower extremities with full ROM, no atrophy, spasticity, or flaccidity Extremities:Radial, dorsalis pedis, and posterior tibial pulses are intact and symmetrical, left lower extremity with chronic edema compared to right but no erythema or tenderness Skin:Warm, dry, no rashes , lesions, or scars noted Neuro:Alert and oriented to person, place, month, but not to year no focal defects, CN II-XII tested and intact, baseline tremor noted Psych:No acute distress, calm and cooperative during the exam Principal Diagnosis Weakness Discharge Exam Constitutional WD/WN, vitals as above ENMT external ear and nose normal, oropharynx normal Neck trachea midline, no thyromegaly Respiratory normal respiratory effort, lungs clear to auscultation Cardiovascular RRR, no murmur, no edema Gastrointestinal (Abdomen) normal bowel sounds, soft, nontender, no hepatosplenomegaly Skin no rashes, warm and dry Discharge Data Allergies Allergy/AdvReac Type Severity Reaction Status Date / Time lisinopril AdvReac Intermediate cough Verified 04/28/22 15:15 Consultations 04/28/22 14:18 ED Decision to Admit Stat 04/28/22 16:43 Consult Nephrology Routine 04/29/22 17:13 Consult Cardiology Routine Procedures Performed Operation Date: 05/01/22 13:00 Actual Procedures s Cineradiography w/Routine Exam - Davon William MD p Cath, Coronaries ONLY (no LV) - Davon William MD Ordered Studies 04/28/22 13:43 CT head/brain wo con Stat 04/28/22 15:07 US abdomen [US liver] Urgent 05/01/22 08:00 CL Cath Imgs for PACS use only Routine 05/01/22 11:51 CL Cath Imgs for PACS use only Routine Hospital Course (1) Weakness: Patient admitted to the hospital on account of worsening generalized weakness on 04/28/22. There has been minimal improvement with PT, but barely able to participate in PT, only able to transfer to commode and chair. - She is a 2 person assist - Continue physical therapy and occupational therapy. - Discharging to [facility] today Of note, review of PCP note on 04/08/22, they had increased her Venlafaxine to 150mg, decreased primidone to 50mg +100mg +50mg daily as was not tolerating 100mg TID dosing due to fatigue --> As below, primidone dose for HD patient 50mg, venlafaxine decrease 75mg Noted does have increased risk of bleeding with venlafaxine, also appears patient on ibuprofen 600mg BID at home in patient with HD....had gotten dose 600mg BID inpatient on 04/28 before stopped. She states does take on occasion. Rec NO NSAIDS She was also on 300mg gabapentin BID, max dose w/ ESRD 300mg/daily Patient did have elevated LFTs on admission, ?if related to medications/acute liver failure causing weakness. BPs elevated on admit/not hypotensive No CTAP obtained, however did have Liver US later in stay and LFTs resolved on repeat testing as medications adjusted, could be from such but will also check lyme/anaplasmosis given weakness/joint pains as well Had been able to get up/use bedside commode with staff yesterday, improvement from days prior and wanting to participate with therapy. Completed peer-peer this morning, overturned and [facility] can accept but pending repeat PT eval to relay information regarding ability to participate Patient in HD until 2pm and had to be there by 2pm but again need therapy evals and will plan for d/c tomorrow. Per Dr Patrick - ok for patient to resume her usual HD treatments starting on Wednesday, no need for additional treatment today. Per nephrology had a good treatment yesterday. (2) Hypertension: Currently on multiple medications for blood pressure control. Amlodipine dosage uptitrated on 05/02. - Continue carvedilol 12.5 mg PO BID, amlodipine 10 mg PO daily (new med), Bumex 4 mg PO BID -> Does fall substantially during HD (90/50s) BP stable and currently 168/69 (3) End-stage renal disease on hemodialysis: Switch to MWF for [facility]. Nephrology aware. In HD currently, messaged Dr Patrick about need for any tomorrow vs switch to M/W/F without need for HD prior to d/c to [facility] Remains on lokemla on non-HD days (,,S), low K diet, bumex (4) Myoclonus: Earlier in this admission (~05/11), she was quite lethargic. Noted that her gabapentin was higher than recommended for ESRD. Her primodone also was much higher than recommended with recent reports by PCP for decrease due to reported fatigue Lowered both substantially. No increase noted in her baseline tremor (which I am not even really noticing in the hospital and patient states she hasn't had since she was inpatient) - Continue gabapentin 300 mg PO HS MWF (after dialysis) - Continue primidone 50 mg PO HS (5) Transaminitis: AST/ALT were 290/124 on admission on 04/28. Slightly higher on 04/29, then downtrended. Priors had been normal. Liver u/s on 04/28 negative for acute findings. LFTs Rechecked on 05/12 and entirely back to normal at AST/ALT of 13/8. Tbili and protein normal as well. Given the fact that it was at this point 2 weeks ago, not sure if we will determine a cause, however recent inrease in venlafaxine to 75mg and then to 150mg during Oct PCP visit w/ progressive weakness/LFTs on admit could potentially have been contributing as a cause (6) Elevated troponin: Troponins elevated to 83 on admission. ECHO w/ wma earlier in stay, cards consulted Possibly demand ischemia and ESRD, however did have LHC on 05/01 --> Normal coronaries, No evidence of acute AK. No further follow-up needed, no CP reported (7) Chronic respiratory failure with hypoxia: Unclear if this is due to mild hypervolemia from ESRD. - Supplemental oxygen per nasal cannula to maintain saturation greater than 90%. As of 05/16, on 3L NC --> titrated to 100% on 2L currently (8) Diabetes mellitus: A1c was 5.7% in 02/2022, though this is an imperfect measure in ESRD. She has actually had hypoglycemic episodes in the hospital, and sliding scale insulin coverage has been discontinued. - Monitor blood sugars ACHS -> Re-added low-dose aspart on 05/12 as her sugars were higher, but it is a very low-dose regimen. Sugar 92 today. No change. (9) Anemia: Chronic due to end-stage renal disease. - Hgb has been stable ~9 to 10 mg/dL in last few days, low prior to HD from volume but stable Of note, patient has ibuprofen 600mg BID on home med list, she WAS taking as needed at home but also reports had been taking tylenol more often (?combo Tylenol venlafaxine w/ elevated LFTs?) Recs NOT to continue any NSAIDs given CKD (10) Hypothyroidism: Last TSH was 2.47 on 04/28/2022. - Continue current levothyroxine 100 mcg QPM (11) Vitamin D deficiency: - Continue vitamin D replacement (12) Dyslipidemia: - Continue atorvastatin (13) Depression with anxiety: Appears stable at this time. - Continue the lowered venlafaxine ER to 75 mg PO daily for renal function, mood stable. Plan VTE ppx: Heparin 5,000 units SQ Q12h while was inpatient Discharging today to [facility] Total Time Total Time Spent Total Time Spent (In Minutes): 35 Discharge Plan Discharge Items Patient Disposition: Transfer Custodial Fac Reason For Visit: WEAKNESS Discharge Diagnosis: weakness HTN ESRD - on HD elevated LFTs - improved elevated troponin DM Anemia of chronic disease Hypothyroidsm Hyperlipidemia Chronic respiratory disease with hypoxia Condition on Discharge: Fair Activity: Per Instructions section Activity Comment: Continued PT/OT Lifting: None Non-emergency contact: Primary Care Provider Call non-emergency contact if: you have any medication questions Follow-up/Referrals: Pro,Julito Grijalva MD [Primary Care Provider] - Diet: Carb Consistent or DM2 and Dialysis Renal Addtl Attending Provider Instructions: Reduction in meds based on kidney function: -- Gabapentin reduced to 300mg daily -- Primidone 50mg at night only -- Venlafaxine 75mg daily New meds : amlodipine 10mg for BP control AVOID NSAIDS! HD to resume on Wednesday Addtl Cna Ltc Provider Instructions: You were admitted with weakness and had consults with nephrology, cardiology. You had elevated LFTs that have since resolved. And may have been secondary to medications. Your Venlafaxine was decreased from 150mg to 75 mg, Your Primidone was also changed to 50mg at night. Your Gabapentin was also changed to 300mg at night on off dialysis days as well as the Loemla on non dialysis days. A new medication was added for your blood pressure called Amlodipine (Norvacsc ) 10mg daily. It was also recommend no more NSAIDs due to your end stage renal disease and being on dialysis. No more Ibuprofen. Tylenol as needed. You were on lactulose as needed for constipation. You are being discharged to a fpc facility to continue therapy and regain strength. Pending Studies at Discharge: Yes Studies:: CMV Stand-Alone Forms: [facility] Skilled Items Patient informed of condition?: Yes Discharge Level of Care: Skilled Communicable Disease: No Discharge Prognosis: Improving Lines: None Urinary Catheter: No Medications and DC Order Prescriptions: New amlodipine [Norvasc] 5 mg Tablet 10 mg PO QAM Qty: 30 0RF Continued (DME) blood-glucose meter [OneTouch Verio Meter] [facility] [place] See Rx Instructions .ROUTE .MEDSUPPLY Qty: 1 0RF Rx Instructions: As directed E11.9 (DME) lancets [OneTouch Delica Lancets] 33 gauge [facility] [place] See Rx Instructions .ROUTE .MEDSUPPLY Qty: 100 3RF Rx Instructions: use to test twice daily ondansetron 8 mg tablet,disintegrating 8 mg PO Q8H PRN (Reason: Nausea) Qty: 90 5RF pantoprazole 40 mg tablet,delayed release (DR/EC) 40 mg PO BID 90 Days Qty: 180 3RF tramadol 50 mg tablet 50 mg PO BID Qty: 60 2RF lorazepam 0.5 mg tablet 0.5 mg PO BID PRN (Reason: anxiety; difficulty swallowing) Qty: 30 0RF atorvastatin 20 mg tablet 20 mg PO HS Qty: 90 3RF Hold Instructions: muscle pain levothyroxine 100 mcg tablet 100 mcg PO QPM Qty: 90 3RF Lokelma 5 gram powder in packet 5 g PO [id number] Rx Instructions: SunMonWedFri. Ordered daily pt only takes 4 days a week due to diarrhea. bumetanide 2 mg tablet 4 mg PO BID Rx Instructions: [place] [place] OneTouch Verio test strips Strip See Rx Instructions .ROUTE .MEDSUPPLY Qty: 300 3RF Rx Instructions: test twice daily E11.9 carvedilol [Coreg] 12.5 mg tablet 12.5 mg PO BID Qty: 180 3RF cholecalciferol (vitamin D3) 50 mcg (2,000 unit) capsule 50 mcg PO DAILY Qty: 90 3RF acetaminophen [Tylenol Extra Strength] 500 mg Tablet 1,000 mg PO Q6H PRN (Reason: Pain) ProRenal 8 mg iron-800 mcg-1,000 unit tablet 1 tab PO QDL (DME) Oxygen Home Liters Per Minute See Rx Instructions .ROUTE .MEDSUPPLY Qty: 1 0RF Rx Instructions: 3 liters continuously calcium acetate 667 mg Tablet 667 mg PO UD Rx Instructions: 1 cap with every meal and 1 cap with snacks lactulose 10 gram/15 mL solution 15 ml PO DAILY PRN (Reason: Constipation) Changed primidone 50 mg tablet 50 mg PO HS Qty: 10 0RF venlafaxine 150 mg tablet extended release 24hr 75 mg PO DAILY Qty: 90 1RF gabapentin 300 mg capsule 300 mg PO MOWEFR Qty: 180 3RF Discontinued ibuprofen 600 mg tablet 600 mg PO BID Qty: 60 2RF Discharge Orders: Discharge Order (Routine); Ordered 05/20/22 Ordered By: Pilar Fuentes Admission Data Admit Date/Time: 04/28/22 14:45 Attending Provider: Carlos Anderson Admit Provider: Omar Mahajan Primary Care Provider: Julito Burt Other Providers: [facility] ; Omar Mahajan ; Payam Stephenson ; Sebas Bhakta ; Charlee Avendaño ; Hugo Patrick ; Jody Rodriguez ; Roland Smith ; Jasson Davalos ; Julito Pratt ; Renzo Miller ; Saad Antonio ; Christian Chavez Jr ; Kareem Giang ; Josephine Chester ; Ashlie Farmer ; Sinan Qureshi ; Davon William ; Adolfo Vivar ; Carmen Mixon ; Liliya Babcock ; Jadon Pineda ; Jordan Moreira ; Mahad Bonilla ; Renzo Porras V. Other Interventions: Discharge Summary Assessment (RN) Last Done: 05/20/22 11:35 Supervising Physician Co-Signing Physician Notes I personally examined the patient and verified all bergeron points of history and exam, discussed case, and agree with decision making with Christiane Mar. For center [facility] today. Vitals noted, in general she is awake and alert pleasant no distress. HEENT normocephalic atraumatic mucous membranes moist. Breathing unlabored no accessory muscle use good effort. Weaknessfor center care. Ongoing dialysis. Otherwise as above. Coding Level of Care Code D/C DAY MANAGEMENT >30 MINS Diagnoses Weakness R53.1 Hypertension I10 End-stage renal disease on hemodialysis N18.6; Z99.2 Myoclonus G25.3 Transaminitis R74.01 Elevated troponin R77.8 Chronic respiratory failure with hypoxia J96.11 Diabetes mellitus E11.22; N18.6; Z79.4; Z99.2 Chronic kidney disease stage: on chronic dialysis Diabetes mellitus complication detail: with chronic kidney disease Diabetes mellitus complication status: with kidney complications Diabetes mellitus shelter insulin use: with shelter use Diabetes mellitus type: type 2 Anemia D64.9 Hypothyroidism E03.9 Hypothyroidism type: unspecified Vitamin D deficiency E55.9 Dyslipidemia E78.5 Depression with anxiety F41.8 Time Spent (min) 35
[2022-05-20] MEDS: INSULIN ASPART PER UNIT SC SCH (09:27)
[2022-05-20] MEDS: amLODIPine BESYLATE 5 MG TAB PO SCH (09:28)
[2022-05-20] MEDS: carvediloL 12.5 MG TAB PO SCH (09:28)
[2022-05-20 13:48] LABS: CMV IgG Antibody <0.60 U/mL; CMV IgM Antibody <30.00 AU/mL
--- NOTE | 2022-05-28 07:00 | Coding Query ---
CODING QUERY To promote full compliance with coding requirements relating to patient care, provider participation is requested in all cases of earthmoving labourer uncertainty. Please assist us with the question(s) below: Coding Question(s): Pt admitted with general weakness. ESRD patient on dialysis. During adm pt had cardiac catheterization with NSTEMI ruled out - demand ischemia diagnosed. Patient was seen by Cardiology and Nephrology . Please document, if known or suspected, the etiology of the general weakness. Thanks for your help. Alberto Bahena, [facility] Physician's Response(s): esrd, missed HD Principal Diagnosis: "that condition established after study, to be chiefly responsible for occasioning the admission of the patient to the hospital for care." Co-Existing Principal Diagnosis: "when two or more diagnoses equally meet the criteria for principal diagnosis as determined by the circumstances of admission, diagnostic work up, and/or therapy provided, and the Alphabetic Index, Tabular List, or another coding guideline does not provide sequencing direction, any one of the diagnoses may be sequenced first." "When the physician has documented what appears to be a current diagnosis in the body of the record, but has not included the diagnosis in the final diagnostic statement, the physician should be asked whether the diagnosis should be added." (Source Coding Clinic 2 QTR90. p3-4) SARTHAK
== END 2022-05-20 11:41 | DRG 286 ==
LOC: ED 10:21 → SUATTDRO 14:45 → EDINP 14:45 → 2N 16:42 → 2E 05-01 16:49 → 3N 05-16 14:30
PROC: CLB.CCO (2022-05-01 13:00)

== ENCOUNTER 2022-07-22 10:49 | Observation (INO) ==
--- NOTE | 2022-07-22 11:31 | Emergency Department Note ---
Impression & Plan Hallucinations, End-stage renal disease on hemodialysis, Type 2 diabetes mellitus with diabetic neuropathy, Acute UTI ED Provider Note Provider: Randall Sanon MD DATE OF SERVICE: 07/22/2022 CHIEF COMPLAINT: Hallucinations, fatigue HISTORY OF PRESENT ILLNESS: Patient is a 77-year-old female history of CKD now end-stage renal on dialysis, hypertension, diabetes, CHF, PMR, and frequent UTIs presenting today for from home with concerns over the last day or 2 of developing increasing fatigue and overnight some hallucinations. History from the patient as well as patient's daughter and . No trauma reported. Reports some chronic ongoing pain with her right foot and in the low back. Was at [facility] for rehab for several months home just over a week by report. Finished antibiotics upon arriving home for UTI and has frequent history of these. More weak the last day or 2 and a little bit "wifty "according to daughter. Hallucinations seeing people and shadows overnight. No fevers reported. Denies significant abdominal pain or chest pain. Reports some urinary urge but only pees a little bit as she is on dialysis which she completed yesterday as scheduled. Some ongoing chronic right foot pain with multiple history of x-rays without trauma without significant etiology defined a step may be arthritis by report. PAST MEDICAL HISTORY: As noted above MEDICATIONS: Reviewed home medication list SOCIAL HISTORY: Lives at home with PHYSICAL EXAM: GENERAL: alert and oriented in no acute distress on stretcher Head: normocephalic and atraumatic EYES: No injection, discharge or icterus. PERRL NECK: Trachea midline. Supple. ENT: Mucous membranes pink and moist. LUNGS: Airway patent. No retractions. Breath sounds clear with good air entry bilaterally. HEART: Regular rate and rhythm. No chest wall tenderness ABDOMEN: Soft and non-tender, without guarding or rebound. SKIN: Acyanotic, warm, dry with a small approximately 2 cm grade 1 sacral decubitus ulcer. EXTREMITIES: Patient with some 1+ bilateral lower extremity swelling without significant erythema. Some mild to moderate tenderness diffusely the right foot without significant erythema or open wounds noted. Not significantly bony tender. Right forearm fistula in place with palpable thrill NEUROLOGICAL: No focal deficits. No aphasia. No facial droop or slurred speech but fatigued and frequently resting eyes during conversation. EK bpm normal sinus rhythm left axis. No acute ST segment elevation or depression with a QTc of 438. CONTINUOUS CARDIAC MONITORING: was ordered and showed a heart rate of 60s-70s bpm in normal sinus rhythm Patient's laboratory studies and imaging reviewed. Differential includes Infection, dehydration, metabolic abnormality, hypo/hyperglycemia, electrolyte disturbance, anemia, hypoxia, cardiac sources, intracerebral event, toxicologic, neurologic, as well as other pathologies. IMPRESSION/MEDICAL DECISION MAKING: Patient developing some weakness and fatigue with now hallucinations developing overnight. Following commands and does not appear severely altered. Quite fatigued on exam. History of UTIs reported with a bit of urinary symptoms. We will obtain straight cath as she makes small amount of urine with her history of dialysis. Has been tending dialysis by report. Basic labs and CT of the head completed. Afebrile here and lower suspicion for sepsis at this point. Blood work without significant leukocytosis with stable mild to moderate anemia. ABG slightly elevated CO2 but normal POA to lower suspicion that this is causing any change in mental status. Urinalysis does appear infected. Normal TSH. Creatinine elevated but in the setting of ESRD on dialysis not impressive. CT scan per radiology without significant findings in the chest x-ray reviewed by radiology myself without significant pneumonia or pleural effusion. Mild troponin elevation decreased from previous. Discussed with patient and family at bedside given her altered mentation given a dose of Unasyn for the UTI and discussed further care here at the hospital. Discussed with the hospitalist. DIAGNOSIS: Hallucinations/confusion, acute UTI, end-stage renal disease on dialysis secondary to type 2 diabetes DISPOSITION: Hospitalist will evaluate Patient was agreeable with this plan. Past Med/Surg History Medical History Acute hyperkalemia Anemia Anxiety Arthritis Coronary artery disease Depression Depression with anxiety Diabetes mellitus Diabetic retinopathy Dyslipidemia End-stage renal disease on hemodialysis GERD without esophagitis Hernia, hiatal History of thrombophlebitis Hypertension Hypothyroidism Insomnia Laceration of left lower extremity Macular puckering, bilateral Obstructive sleep apnea Panniculitis Paresthesias Polyarthritis Tubular adenoma of colon Type 2 diabetes mellitus with diabetic neuropathy Vitamin D deficiency Surgical History H/O: hysterectomy History of bladder surgery History of cataract surgery History of nasal septoplasty History of tonsillectomy S/P arteriovenous (AV) fistula creation S/P hysterectomy S/P repair of paraesophageal hernia S/P rotator cuff repair Family History Mother Leukemia Cerebral aneurysm Hypertension Anxiety Diabetes Cancer Heart disease Grandmother Hypertension Father Osteoarthritis COPD (chronic obstructive pulmonary disease) Diabetes Hearing loss Sister Diabetes Myocardial infarction COPD (chronic obstructive pulmonary disease) Hypertension Brother Myocardial infarction Diabetes Cancer Stomach cancer Other No family history of bleeding disorder Denies family history of Ovarian cancer Prostate cancer Breast cancer Colorectal cancer Stroke Asthma Social History Smoking Status: Never smoker Second Hand Exposure: No; Hx Alcohol Use: No Hx Substance Use: No Preferred Language: Azeri Communication Ability: Effective Visual Impairment: No Limitations Hearing Ability: Normal [facility] Coordinator Required: No Beliefs That Will Affect Care: None marital status: Current Living Situation: Spouse current occupational status: retired How many Children do You have: 1 Feels Safe at Home: Yes Dental Care, Regularly: No Physical Activity Frequency: 1-2 Times per Week Seatbelt Use: always Assistive Devices: Glasses, Oxygen - Continuous, Walker and Wheelchair Allergies Allergies Allergy/AdvReac Type Severity Reaction Status Date / Time lisinopril AdvReac Intermediate cough Verified 07/10/22 11:07 Home Meds Home Medications Medication Instructions Recorded Confirmed acetaminophen 500 mg tablet 1,000 mg PO Q6H PRN Pain 11/07/19 07/22/22 (Tylenol Extra Strength) vit B complx, C-iron 8 mg-folic 1 tab PO QDL 02/27/20 07/22/22 acid 800 mcg-D3 1,000 unit-zinc tablet (ProRenal) calcium acetate 667 mg tablet 667 mg PO UD 12/17/20 07/22/22 bumetanide 2 mg tablet 4 mg PO BID 10/14/21 07/22/22 lactulose 10 gram/15 mL oral 15 ml PO DAILY PRN Constipation 01/16/22 07/22/22 solution sodium zirconium cyclosilicate 5 5 g PO [id number] 03/25/22 07/22/22 gram oral powder packet (Lokelma) gabapentin 300 mg capsule 300 mg PO [id number] 07/22/22 07/22/22 Previous Rx's Medication Instructions Recorded Oxygen Home #1 ea 02/29/20 blood-glucose meter (OneTouch #1 ea 11/27/20 Verio Meter) lancets 33 gauge (OneTouch Delica #100 ea 11/27/20 Lancets) pantoprazole 40 mg tablet,delayed 40 mg PO BID 90 days #180 tabs 01/28/22 release tramadol 50 mg tablet 50 mg PO BID #60 tabs 01/29/22 lorazepam 0.5 mg tablet 0.5 mg PO BID PRN anxiety; 01/30/22 difficulty swallowing #30 tabs blood sugar diagnostic (OneTouch #300 ea 03/18/22 Verio test strips) carvedilol 12.5 mg tablet (Coreg) 12.5 mg PO BID #180 tabs 03/18/22 cholecalciferol (vitamin D3) 50 50 mcg PO DAILY #90 caps 03/18/22 mcg (2,000 unit) capsule atorvastatin 20 mg tablet 20 mg PO HS #90 tabs 03/19/22 levothyroxine 100 mcg tablet 100 mcg PO QPM #90 tabs 03/25/22 primidone 50 mg tablet 50 mg PO HS #10 tabs 05/18/22 ondansetron 8 mg disintegrating 8 mg PO Q8H PRN Nausea #90 tabs 07/15/22 tablet venlafaxine 75 mg capsule,extended 75 mg PO DAILY #90 caps 07/20/22 release 24 hr Results & Data (ED) Vital Signs Vital Signs - 24 hr 07/22/22 10:54 07/22/22 11:51 07/22/22 11:51 Temperature 36.6 C Temperature Source Temporal Artery Scan Pulse Rate 83 77 74 Pulse Rate from SpO2 Sensor 73 Pulse Rhythm Regular Respiratory Rate 18 16 16 Blood Pressure 125/71 Blood Pressure Mean 89 Pulse Oximetry 90 99 100 Oxygen Delivery Method Room Air Nasal Cannula Oxygen Flow Rate 2 Sepsis Recent Fever Within 48 Hours No Sepsis New/Unexplained Change in Mental Status N/A Sepsis Action Taken by Nursing No Action Required 07/22/22 11:55 07/22/22 12:35 Temperature Temperature Source Pulse Rate 71 75 Pulse Rate from SpO2 Sensor 71 Pulse Rhythm Respiratory Rate 18 Blood Pressure Blood Pressure Mean Pulse Oximetry 100 Oxygen Delivery Method Oxygen Flow Rate Sepsis Recent Fever Within 48 Hours Sepsis New/Unexplained Change in Mental Status Sepsis Action Taken by Nursing Laboratory Data 07/22/22 11:45 07/22/22 11:45 Lab Results 07/22/22 07/22/22 07/22/22 Range/Units 11:45 11:45 11:45 WBC 5.62 (4.8-10.8) K/ul RBC 3.16 L (4.20-5.40) M/uL Hgb 9.8 L (12.0-16.0) g/dl Hct 31.9 L (37.0-47.0) % MCV 100.9 H (80.0-100.0) fL MCH 31.0 (25.0-34.0) pg MCHC 30.7 L (32.0-36.0) g/dL RDW Std Deviation 55.0 H (36.4-46.3) fL RDW Coeff of Jared 14.7 H (11.5-14.5) % Plt Count 141 (130-400) K/uL MPV 10.5 (9.4-12.4) fL Immature Gran % (Auto) 0.4 % Neut % (Auto) 57.7 % Lymph % (Auto) 18.5 % [place] % (Auto) 15.5 % Eos % (Auto) 6.8 % Baso % (Auto) 1.1 % Neut # (Auto) 3.25 (1.40-6.50) K/uL Lymph # (Auto) 1.04 L (1.2-3.4) K/uL [place] # (Auto) 0.87 H (0.11-0.59) K/uL Eos # (Auto) 0.38 (0-0.50) K/uL Baso # (Auto) 0.06 (0-0.2) K/uL Immature Gran # (Auto) 0.02 (0.01-0.20) K/uL VBG pH (7.36-7.41) VBG pCO2 (38-50) mmHg VBG pO2 mmHg VBG HCO3 mmol/L VBG O2 Saturation % VBG Base Excess mEq/L Sodium 136 (136-145) mmol/L Potassium 4.9 (3.5-5.1) mmol/L Chloride 95 L (98-107) mmol/L Carbon Dioxide 37 H (21-32) mmol/L Anion Gap 4 (3-11) BUN 29 H (6-23) mg/dl Creatinine 4.88 H* (0.6-1.2) mg/dl Est Cr Clr Drug Dosing Not Reportable Est GFR ( Amer) 9.3 ml/min Est GFR (Non-Af Amer) 8.0 ml/min BUN/Creatinine Ratio 5.9 L (10-20) Glucose 92 (70-99(Fasting)) mg/dl Calcium 9.4 (8.5-10.1) mg/dl Magnesium 2.5 H (1.7-2.4) mg/dl Total Bilirubin 0.4 (0.2-1.0) mg/dl AST 15 (13-39) U/L ALT 6 L (7-52) U/L Alkaline Phosphatase 112 H (34-104) U/L Troponin I High Sens 19.9 H (0-14) pg/ml Total Protein 7.4 (6.0-8.3) gm/dl Albumin 3.8 (3.4-5.0) gm/dl Globulin 3.6 (2.5-4.0) gm/dl Albumin/Globulin Ratio 1.1 (0.9-2) TSH 2.367 (0.300-4.500) uIu/ml Urine Color Urine Appearance (Clear) Urine pH (4.5-7.5) Ur Specific [place] (1.000-1.030) Urine Protein (Negative) Urine Glucose (UA) (Negative) Urine Ketones (Negative) Urine Blood (Negative) Urine Nitrite (Negative) Urine Bilirubin (Negative) Urine Urobilinogen (Negative) Ur Leukocyte Esterase (Negative) Urine WBC (Auto) (0-5) /hpf Urine RBC (Auto) (0-4) /hpf U Hyaline Cast (Auto) (0-5) /lpf U Epithel Cells (Auto) (0-5) /lpf Urine Bacteria (Auto) (Negative) Ur Renal Epithelial Cell (0-5) /lpf Urine Opiates Screen (Neg) Ur Methadone, Qual (Neg) Urine Barbiturates (Neg) Ur Phencyclidine (PCP) (Neg) U Amphetamin/Meth Scrn (Neg) MDMA (Ecstasy) Screen (Neg) U Benzodiazepines Scrn (Neg) Ur Cocaine Metabolite (Neg) U Marijuana (THC) Screen (Neg) SARS-CoV-2, RNA, NAAT (NEGATIVE) 07/22/22 07/22/22 07/22/22 Range/Units 11:45 11:51 12:43 WBC (4.8-10.8) K/ul RBC (4.20-5.40) M/uL Hgb (12.0-16.0) g/dl Hct (37.0-47.0) % MCV (80.0-100.0) fL MCH (25.0-34.0) pg MCHC (32.0-36.0) g/dL RDW Std Deviation (36.4-46.3) fL RDW Coeff of Jared (11.5-14.5) % Plt Count (130-400) K/uL MPV (9.4-12.4) fL Immature Gran % (Auto) % Neut % (Auto) % Lymph % (Auto) % [place] % (Auto) % Eos % (Auto) % Baso % (Auto) % Neut # (Auto) (1.40-6.50) K/uL Lymph # (Auto) (1.2-3.4) K/uL [place] # (Auto) (0.11-0.59) K/uL Eos # (Auto) (0-0.50) K/uL Baso # (Auto) (0-0.2) K/uL Immature Gran # (Auto) (0.01-0.20) K/uL VBG pH 7.36 (7.36-7.41) VBG pCO2 66 H (38-50) mmHg VBG pO2 23 mmHg VBG HCO3 37 mmol/L VBG O2 Saturation < 60.0 % VBG Base Excess 10.0 mEq/L Sodium (136-145) mmol/L Potassium (3.5-5.1) mmol/L Chloride (98-107) mmol/L Carbon Dioxide (21-32) mmol/L Anion Gap (3-11) BUN (6-23) mg/dl Creatinine (0.6-1.2) mg/dl Est Cr Clr Drug Dosing Est GFR ( Amer) ml/min Est GFR (Non-Af Amer) ml/min BUN/Creatinine Ratio (10-20) Glucose (70-99(Fasting)) mg/dl Calcium (8.5-10.1) mg/dl Magnesium (1.7-2.4) mg/dl Total Bilirubin (0.2-1.0) mg/dl AST (13-39) U/L ALT (7-52) U/L Alkaline Phosphatase (34-104) U/L Troponin I High Sens (0-14) pg/ml Total Protein (6.0-8.3) gm/dl Albumin (3.4-5.0) gm/dl Globulin (2.5-4.0) gm/dl Albumin/Globulin Ratio (0.9-2) TSH (0.300-4.500) uIu/ml Urine Color Yellow Urine Appearance Clear (Clear) Urine pH 7.5 (4.5-7.5) Ur Specific [place] 1.015 (1.000-1.030) Urine Protein 2+ H (Negative) Urine Glucose (UA) Negative (Negative) Urine Ketones Negative (Negative) Urine Blood Negative (Negative) Urine Nitrite Negative (Negative) Urine Bilirubin Negative (Negative) Urine Urobilinogen Negative (Negative) Ur Leukocyte Esterase 2+ H (Negative) Urine WBC (Auto) >30 H (0-5) /hpf Urine RBC (Auto) 0-4 (0-4) /hpf U Hyaline Cast (Auto) 1-5 (0-5) /lpf U Epithel Cells (Auto) >30 H (0-5) /lpf Urine Bacteria (Auto) Negative (Negative) Ur Renal Epithelial Cell 0-5 (0-5) /lpf Urine Opiates Screen (Neg) Ur Methadone, Qual (Neg) Urine Barbiturates (Neg) Ur Phencyclidine (PCP) (Neg) U Amphetamin/Meth Scrn (Neg) MDMA (Ecstasy) Screen (Neg) U Benzodiazepines Scrn (Neg) Ur Cocaine Metabolite (Neg) U Marijuana (THC) Screen (Neg) SARS-CoV-2, RNA, NAAT NEGATIVE (NEGATIVE) 07/22/22 Range/Units 12:47 WBC (4.8-10.8) K/ul RBC (4.20-5.40) M/uL Hgb (12.0-16.0) g/dl Hct (37.0-47.0) % MCV (80.0-100.0) fL MCH (25.0-34.0) pg MCHC (32.0-36.0) g/dL RDW Std Deviation (36.4-46.3) fL RDW Coeff of Jared (11.5-14.5) % Plt Count (130-400) K/uL MPV (9.4-12.4) fL Immature Gran % (Auto) % Neut % (Auto) % Lymph % (Auto) % [place] % (Auto) % Eos % (Auto) % Baso % (Auto) % Neut # (Auto) (1.40-6.50) K/uL Lymph # (Auto) (1.2-3.4) K/uL [place] # (Auto) (0.11-0.59) K/uL Eos # (Auto) (0-0.50) K/uL Baso # (Auto) (0-0.2) K/uL Immature Gran # (Auto) (0.01-0.20) K/uL VBG pH (7.36-7.41) VBG pCO2 (38-50) mmHg VBG pO2 mmHg VBG HCO3 mmol/L VBG O2 Saturation % VBG Base Excess mEq/L Sodium (136-145) mmol/L Potassium (3.5-5.1) mmol/L Chloride (98-107) mmol/L Carbon Dioxide (21-32) mmol/L Anion Gap (3-11) BUN (6-23) mg/dl Creatinine (0.6-1.2) mg/dl Est Cr Clr Drug Dosing Est GFR ( Amer) ml/min Est GFR (Non-Af Amer) ml/min BUN/Creatinine Ratio (10-20) Glucose (70-99(Fasting)) mg/dl Calcium (8.5-10.1) mg/dl Magnesium (1.7-2.4) mg/dl Total Bilirubin (0.2-1.0) mg/dl AST (13-39) U/L ALT (7-52) U/L Alkaline Phosphatase (34-104) U/L Troponin I High Sens (0-14) pg/ml Total Protein (6.0-8.3) gm/dl Albumin (3.4-5.0) gm/dl Globulin (2.5-4.0) gm/dl Albumin/Globulin Ratio (0.9-2) TSH (0.300-4.500) uIu/ml Urine Color Urine Appearance (Clear) Urine pH (4.5-7.5) Ur Specific [place] (1.000-1.030) Urine Protein (Negative) Urine Glucose (UA) (Negative) Urine Ketones (Negative) Urine Blood (Negative) Urine Nitrite (Negative) Urine Bilirubin (Negative) Urine Urobilinogen (Negative) Ur Leukocyte Esterase (Negative) Urine WBC (Auto) (0-5) /hpf Urine RBC (Auto) (0-4) /hpf U Hyaline Cast (Auto) (0-5) /lpf U Epithel Cells (Auto) (0-5) /lpf Urine Bacteria (Auto) (Negative) Ur Renal Epithelial Cell (0-5) /lpf Urine Opiates Screen Neg (Neg) Ur Methadone, Qual Neg (Neg) Urine Barbiturates Pos H (Neg) Ur Phencyclidine (PCP) Neg (Neg) U Amphetamin/Meth Scrn Neg (Neg) MDMA (Ecstasy) Screen Neg (Neg) U Benzodiazepines Scrn Neg (Neg) Ur Cocaine Metabolite Neg (Neg) U Marijuana (THC) Screen Neg (Neg) SARS-CoV-2, RNA, NAAT (NEGATIVE) Administered Medications Acetaminophen (Acetaminophen 325 Mg Tab) 650 mg PO Q6H ENRIQUETA Stop: 08/21/22 16:26 Last Admin: 07/22/22 18:09 Dose: 650 mg Documented By: MALLORY Calcium Acetate (Calcium Acetate 667 Mg Cap/Tab) 667 mg PO TIDM ENRIQUETA Stop: 08/21/22 16:59 Last Admin: 07/22/22 18:09 Dose: 667 mg Documented By: MALLORY Insulin Aspart (Insulin Aspart Per Unit) 0 units SC ACHS ENRIQUETA Stop: 08/21/22 16:29 Last Admin: 07/22/22 18:08 Dose: Not Given Documented By: MALLORY Sodium Zirconium Cyclosilicate (Sodium Zirconium Cyclosilicate 10 Gm Packet) 5 gm PO [id number] ENRIQUETA Stop: 08/21/22 16:37 Last Admin: 07/22/22 18:07 Dose: 5 gm Documented By: MALLORY Discontinued Medications Ceftriaxone Sodium 1,000 mg/ (Dextrose) 50 mls @ 100 mls/hr IV NOW STA Stop: 07/22/22 14:14 Last Infusion: 07/22/22 15:09 Dose: 0 mls/hr Documented By: Admin: 07/22/22 14:06 Dose: 100 mls/hr Documented By: ARNIE Imaging Data Radiologist's Impression: Chest X-Ray 07/22/22 11:00 XR chest 1V portable CLINICAL HISTORY: weakness COMPARISON STUDY: Chest CT January 17, 2022. Chest radiograph April 18, 2022. FINDINGS: Lung volumes are normal. Lungs are clear. There is no pneumothorax or pleural effusion. Cardiomegaly is unchanged. Mediastinal contours are normal. There is no evidence for pulmonary edema. Surgical clips project over the GE junction. IMPRESSION: No acute cardiopulmonary findings. No change in appearance of the chest. ACT 112: Negative or not required by law. Electronically signed by: Cyrus Serna M.D. 07/22/2022 11:[address] 07/22/22 11:00 CT OF THE HEAD WITHOUT CONTRAST CLINICAL HISTORY: weak, confusion/hallucinations COMPARISON STUDY: Head CT April 28, 2022. CT DOSE: 691.05 mGy.cm TECHNIQUE: Helical axial images of the head were obtained without IV contrast. Automated exposure control was utilized for the study. A dose lowering te chnique was utilized adhering to the principles of ALARA. FINDINGS: No acute intracranial hemorrhage, midline shift or mass effect is present. The ventricular system is stable. White matter hypodensity suggests small vessel disease. The basal cisterns are patent. No extra-axial collections are present. There are no findings to suggest acute dural sinus thrombosis or acute territorial infarct. No significant calvarial abnormalities are present. Visualized portions of the sinuses and mastoid air cells are clear. IMPRESSION: No acute intracranial findings. No change in appearance of the brain. ACT 112: Negative or not required by law. Electronically signed by: Cyrus Serna M.D. 07/22/2022 12:16 PM Discharge Plan Visit Data Chief Complaint: Altered Mental Status Stated Complaint: ALTERED MENTAL STATUS, MEMORY LOSS ED Provider: Randall Sanon Discharge Problem: Hallucinations, End-stage renal disease on hemodialysis, Type 2 diabetes mellitus with diabetic neuropathy, Acute UTI Patient Disposition: Being Evaluated by Hospitalist Discharge Instructions Interventions: ED Discharge Assessment Last Done: 07/22/22 15:32
--- NOTE | 2022-07-22 11:45 | XRay Report ---
XR chest 1V portable CLINICAL HISTORY: weakness COMPARISON STUDY: Chest CT January 17, 2022. Chest radiograph April 18, 2022. FINDINGS: Lung volumes are normal. Lungs are clear. There is no pneumothorax or pleural effusion. Car diomegaly is unchanged. Mediastinal contours are normal. There is no evidence for pulmonary edema. Vu rgical clips project over the GE junction. IMPRESSION: No acute cardiopulmonary findings. No change in appearance of the chest. ACT 112: Negative or not required by law. Electronically signed by: Cyrus Serna M.D. 07/22/2022 11:42 AM
[2022-07-22 12:06] LABS: HCO3 VBG 37 mmol/L; Oxygen Saturation VBG < 60.0 %; PCO2 VBG 66 mmHg (38-50); PO2 VBG 23 mmHg; pH VBG 7.36 (7.36-7.41)
[2022-07-22 12:18] LABS: Basophils # (auto) 0.06 K/uL (0-0.2); Basophils % (auto) 1.1 %; Eosinophils # (auto) 0.38 K/uL (0-0.50); Eosinophils % (auto) 6.8 %; Hematocrit (blood only) 31.9 % (37.0-47.0); Hemoglobin 9.8 g/dl (12.0-16.0); Immature Granulocytes # (auto) 0.02 K/uL (0.01-0.20); Immature Granulocytes % (auto) 0.4 %; Lymphocytes # (auto) 1.04 K/uL (1.2-3.4); Lymphocytes % (auto) 18.5 %; Mean Corpuscular Hgb Conc 30.7 g/dL (32.0-36.0); Mean Corpuscular Volume 100.9 fL (80.0-100.0); Mean Platelet Volume 10.5 fL (9.4-12.4); Monocytes # (auto) 0.87 K/uL (0.11-0.59); Monocytes % (auto) 15.5 %; Neutrophils # (auto) 3.25 K/uL (1.40-6.50); Neutrophils % (auto) 57.7 %; Platelet Count 141 K/uL (130-400); RDW Coefficient of Variation 14.7 % (11.5-14.5); Red Blood Count 3.16 M/uL (4.20-5.40); White Blood Count 5.62 K/ul (4.8-10.8)
--- NOTE | 2022-07-22 12:19 | CT Scan Report ---
CT OF THE HEAD WITHOUT CONTRAST CLINICAL HISTORY: weak, confusion/hallucinations COMPARISON STUDY: Head CT April 28, 2022. CT DOSE: 691.05 mGy.cm TECHNIQUE: Helical axial images of the head were obtained without IV contrast. Automated exposure con trol was utilized for the study. A dose lowering technique was utilized adhering to the principles o f ALARA. FINDINGS: No acute intracranial hemorrhage, midline shift or mass effect is present. The ventricular system is stable. White matter hypodensity suggests small vessel disease. The basal cisterns are mccoy nt. No extra-axial collections are present. There are no findings to suggest acute dural sinus thromb osis or acute territorial infarct. No significant calvarial abnormalities are present. Visualized por tions of the sinuses and mastoid air cells are clear. IMPRESSION: No acute intracranial findings. No change in appearance of the brain. ACT 112: Negative or not required by law. Electronically signed by: Cyrus Serna M.D. 07/22/2022 12:16 PM
--- NOTE | 2022-07-22 12:43 | Electrocardiogram Report ---
Test Reason : Blood Pressure : / mmHG Vent. Rate : 079 BPM Atrial Rate : 079 BPM P-R Int : 202 ms QRS Dur : 098 ms QT Int : 382 ms P-R-T Axes : 039 -79 029 degrees QTc Int : 438 ms Normal sinus rhythm Left axis deviation Poor R wave progression, consider anterior OR vs. lead placement vs. LVH Abnormal ECG When compared with ECG of 28-APR-2022 15:25, T wave inversion no longer evident in Inferior leads T wave inversion no longer evident in Anterolateral leads QT has shortened Confirmed by Davon William ([id number]) on 07/22/2022 12:42:34 PM Referred By: REFERRED SELF Confirmed By:Ravi William
[2022-07-22 12:59] LABS: Appearance Urine Clear (Clear); Bacteria Urine Automated Negative (Negative); Bilirubin Urine Negative (Negative); Blood Urine Negative (Negative); Color Urine Yellow; Epithelial Cell Urine Auto >30 /lpf (0-5); Glucose Urine UA Negative (Negative); Ketones Urine Negative (Negative); Leukocyte Esterase Urine 2+ (Negative); Nitrite Urine Negative (Negative); RBC Urine Automated 0-4 /hpf (0-4); Specific Gravity Urine 1.015 (1.000-1.030); Urobilinogen Urine Negative (Negative); WBC Urine Automated >30 /hpf (0-5); pH Urine 7.5 (4.5-7.5)
[2022-07-22 13:01] LABS: Protein Urine 2+ (Negative)
[2022-07-22 13:04] LABS: Alanine Aminotransferase 6 U/L (7-52); Albumin Globulin Ratio 1.1 (0.9-2); Albumin Level 3.8 gm/dl (3.4-5.0); Alkaline Phosphatase 112 U/L (34-104); Anion Gap 4 (3-11); Aspartate Aminotransferase 15 U/L (13-39); BUN Creatinine Ratio 5.9 (10-20); Bilirubin,Total 0.4 mg/dl (0.2-1.0); Blood Urea Nitrogen 29 mg/dl (6-23); Calcium 9.4 mg/dl (8.5-10.1); Carbon Dioxide 37 mmol/L (21-32); Chloride 95 mmol/L (98-107); Est GFR (African American) 9.3 ml/min; Globulin 3.6 gm/dl (2.5-4.0); Glucose 92 mg/dl (70-99(Fasting)); Magnesium 2.5 mg/dl (1.7-2.4); Potassium 4.9 mmol/L (3.5-5.1); Sodium 136 mmol/L (136-145); Total Protein 7.4 gm/dl (6.0-8.3); Troponin I High Sensitivity 19.9 pg/ml (0-14)
[2022-07-22 13:22] LABS: Renal Epithelial Cells Urine 0-5 /lpf (0-5)
[2022-07-22] MEDS ORDERED: cefTRIAXone SODIUM 1,000 MG in DEXTROSE 5% AD-VAN 50 ML IV STA (13:45)
--- NOTE | 2022-07-22 14:04 | History & Physical Report ---
Date of Service July 22, 2022 Assessment & Plan (1) Hallucinations: Plan: -Admit to med/surge -The patient is currently afebrile, hemodynamically stable, and stable on her baseline 2-3L NC -At this time the etiology of the patient's fatigue and possible hallucinations are likely multifactorial including but not limited to polypharmacy, uremia due to ESRD and HD dependent, TASH without recent use of CPAP, and chronic neurologic decline such as demetia/alzhemier's -The patient complains of dysuria but her UA is not overtly suggestive of an acute UTI, S/P one dose of Ceftriaxone in the ED which will cover her for 24 hours, she is without a leukocytosis and is afebrile and hemodynamically stable. Will hold additional abx at this time and monitor her urine cultures -It appears that the patient and her may be having confusion/difficulty keeping her numerous medications organized, which could be leading to increased fatigue and possible mental status changes >For now will hold ativan and hold tramadol to see if she has improvement in her symptoms >Will continue with scheduled tylenol and more conservative measures for her chronic pain at this time >Patient should be on 300 mg Po Gabapentin TTS after dialysis, ensure that they know she should NOT be taking Pregabalin as well -Will order HS CPAP while admitted, will need to try and coordinate with CM to try and obtain a new CPAP machine prior to discharge -Will obtain a urine tox screen for further evaluation -PT/OT consults placed as she may need to have another stay at rehab on discharge -AM CBC, CMP, Mag -BL SCDs and Sub-Q heparin for DVT PPX (2) Fatigue: Plan: -See hallucinations -Continue HS primidone HS for tremors (3) Hypertension: Plan: -Stable -Continue amlodipine, Carvedilol, (4) Diabetes mellitus: Plan: -Hold metformin -Monitor BSG ACHS , goal is 110-140 -Will start with 2 units lantus ACHS to avoid hypoglycemia with her ESRD -Correction factor of 50 with carb ratio of 15 -Adjust regimen as needed (5) Hypothyroidism: Plan: -Continue levothyroxine (6) Obstructive sleep apnea: Plan: -HS CPAP ordered -Will need to try and setup a new machine for her prior to discharge (7) Dyslipidemia: Plan: -Continue statin (8) Depression with anxiety: Plan: -Continue Venlafaxine -Hold ativan as this could be causing her symptoms (9) End-stage renal disease on hemodialysis: Plan: -Electrolytes today are stable -Nephrology consulted to assist with HD while admitted -Continue calcium acetate with meals and snacks -Continue Sodium zirconium (10) Chronic respiratory failure with hypoxia: Plan: -Continue baseline 2-3L NC -Incentive spirometry and prn albuterol ordered (11) CHF (congestive heart failure): Plan: -Continue Bumetanide Plan The patient was discussed with Dr. Richards at the time of the admission History of Present Illness Chief Complaint: Increased fatigue and hallucinations Primary Care Provider: Julito Burt MD Shirley is a 76 year old female with a PMH significant for ESRD on HD TTS, Chronic respiratory failure with hypoxic on baseline 3L NC, DM II, Hypothyroidism, CAD, HFpEF (LVEF of 55-60% as of 02/27/2020), mod tricuspid regurg, severe mitral annular calcification, moderate pulmonary HTN, TASH, hyperlipidemia, depression and anxiety, polymyalgia rheumatica, HTN, RSL, resting tremor, and memory changes who presented to the [facility] ED from home on 07/22/22 with complaints of fatigue and hallucinations. In the ED the patient was found to be afebrile, hemodynamically stable, and stable on 2L NC. Labs were significant for a CBC with WBC WNL, stable Hgb at 9.8, stable platelets at 141, MCV of 100.9, VBG showing a pH of 7.36, pCO2 of 66, and pO2 of 23, cr of 4.88, chloride of 95 with bicarb of 37, mag of 2.5, otherwise stable electrolytes, alk phos of 112 (up from 76 as of 05/29/22) otherwise stable LFTs, initial high sensitivity trop of 19.9, TSH of 2.36, UA showing 2+ protein, 2+ Leukocyte esterase, > 30 WBC, and negative for bacteria, and covid negative. CT of the head was read as "No acute intracranial findings. No change in appearance of the brain.". Chest xray was read as "No acute cardiopulmonary findings. No change in appearance of the chest.". Prior to admission the patient was given one dose of Ceftriaxone. Per chart review, the patient was last admitted to [facility] from 04/28/22- 05/20/22 for generalized weakness, transaminitis, and uncontrolled HTN. Per the DC summary, her weakness was thought to be multifactorial including deconditioning, her chronic diseases, and polypharmacy. The patient's primidone was decreased down to 50 mg HS, her venlafaxine was decreased down to 75 mg PO daily, her gabapentin was changed to 300 mg PO MWF (after dialysis), and her venlafaxine was changed from 150 mg daily to 75 mg daily. Amlodipine 10 mg PO daily was added during her admission for uncontrolled HTN and her ibuprofen was discontinued due to risks of worsening renal disease and bleeding risks. She was discharged to [facility] on 05/20/22 for continued physical therapy as she was still very weak and required a 2 person assist during her admission. At the time of the exam the patient was resting in bed in no acute distress with her sitting bedside, history was obtained from both. The patient appears fatigued during my exam and fell asleep multiple times during my exam but was easy to wake. Her states that she was doing well since her discharge from [facility] on 07/09/22 until yesterday after they arrived home from dialysis. They state that the patient became progressively more tired, confused, and was "see people and things that are not there". When asked to elaborate the patient explained that she was sitting in her recliner yesterday evening and wanted to get up, but her walker was out of reach. She was yelling to her and daughter because she thought they were in the room with her, her explains that they were not in the room. When asked to elaborate on what "things" she has been seeing she became frustrated and wanted to know why I was asking. I explained that we are admitted her for weakness and hallucinations so I need to know what she may be seeing that is not really in the room. She would only say that she is seeing "objects" that are not in the room. She and her clarified that the hallucinations started yesterday and have not been occurring previously. I admitted the patient last time she was admitted to [facility] and her had said that the patient was having a gradual decline in cognition over the past year. He states that this is more acute than normal. They deny recent fevers, headaches, changes in hearing, taste, and smell, chest pain, increased SOB, abdominal pain, vomiting, diarrhea, hematuria, melena, LE swelling and recent falls. She makes a small amount of urine despite her dialysis status. When asked if she has been experiencing dysuria she states that she has over the past 3 days. We went over her Med rec, her states that he helps her with her medications. Of note, the patient is prescribed 50 mg PO tramadol BID prn for chronic right foot pain. She and her also state that she uses 0.5 mg PO ativan BID prn for anxiety. When asked if she ever takes these medications more than prescribed if her symptoms are severe she stated "yes". She stated that she will often take the tramadol up to 4 times daily for pain. They confirmed that she is no longer taking Pregabalin since she was switched to Gabapentin after her last discharge. However, after review of her PDMP it appears that she recently picked up a refill of her Pregabalin last month after the change had been made. The patient is still without a functioning CPAP machine as her previous one was recalled and she has yet to try and obtain another. Please refer to Dr. Richards's attetsation for any changes to the treatment plan. Allergies Allergy/AdvReac Type Severity Reaction Status Date / Time lisinopril AdvReac Intermediate cough Verified 07/10/22 11:07 Home Medications Medication Instructions Recorded Confirmed Type acetaminophen 500 mg tablet 1,000 mg PO Q6H PRN Pain 11/07/19 07/22/22 History (Tylenol Extra Strength) vit B complx, C-iron 8 mg-folic 1 tab PO QDL 02/27/20 07/22/22 History acid 800 mcg-D3 1,000 unit-zinc tablet (ProRenal) Oxygen Home #1 ea 02/29/20 07/22/22 Rx blood-glucose meter (OneTouch #1 ea 11/27/20 07/22/22 Rx Verio Meter) lancets 33 gauge (OneTouch Delica #100 ea 11/27/20 07/22/22 Rx Lancets) calcium acetate 667 mg tablet 667 mg PO UD 12/17/20 07/22/22 History bumetanide 2 mg tablet 4 mg PO BID 10/14/21 07/22/22 History lactulose 10 gram/15 mL oral 15 ml PO DAILY PRN Constipation 01/16/22 07/22/22 History solution pantoprazole 40 mg tablet,delayed 40 mg PO BID 90 days #180 tabs 01/28/22 07/22/22 Rx release tramadol 50 mg tablet 50 mg PO BID #60 tabs 01/29/22 07/22/22 Rx lorazepam 0.5 mg tablet 0.5 mg PO BID PRN anxiety; 01/30/22 07/22/22 Rx difficulty swallowing #30 tabs blood sugar diagnostic (OneTouch #300 ea 03/18/22 07/22/22 Rx Verio test strips) carvedilol 12.5 mg tablet (Coreg) 12.5 mg PO BID #180 tabs 03/18/22 07/22/22 Rx cholecalciferol (vitamin D3) 50 50 mcg PO DAILY #90 caps 03/18/22 07/22/22 Rx mcg (2,000 unit) capsule atorvastatin 20 mg tablet 20 mg PO HS #90 tabs 03/19/22 07/22/22 Rx levothyroxine 100 mcg tablet 100 mcg PO QPM #90 tabs 03/25/22 07/22/22 Rx sodium zirconium cyclosilicate 5 5 g PO 4XWK 03/25/22 07/22/22 History gram oral powder packet (Lokelma) primidone 50 mg tablet 50 mg PO HS #10 tabs 05/18/22 07/22/22 Rx ondansetron 8 mg disintegrating 8 mg PO Q8H PRN Nausea #90 tabs 07/15/22 07/22/22 Rx tablet venlafaxine 75 mg capsule,extended 75 mg PO DAILY #90 caps 07/20/22 07/22/22 Rx release 24 hr gabapentin 300 mg capsule 300 mg PO 3XWK 07/22/22 07/22/22 History Past Med/Surg History Medical History Acute hyperkalemia Anemia Anxiety Arthritis Coronary artery disease Depression Depression with anxiety Diabetes mellitus Diabetic retinopathy Dyslipidemia End-stage renal disease on hemodialysis GERD without esophagitis Hernia, hiatal History of thrombophlebitis Hypertension Hypothyroidism Insomnia Laceration of left lower extremity Macular puckering, bilateral Obstructive sleep apnea Panniculitis Paresthesias Polyarthritis Tubular adenoma of colon Type 2 diabetes mellitus with diabetic neuropathy Vitamin D deficiency Surgical History H/O: hysterectomy History of bladder surgery History of cataract surgery History of nasal septoplasty History of tonsillectomy S/P arteriovenous (AV) fistula creation S/P hysterectomy S/P repair of paraesophageal hernia S/P rotator cuff repair Family History Mother Leukemia Cerebral aneurysm Hypertension Anxiety Diabetes Cancer Heart disease Grandmother Hypertension Father Osteoarthritis COPD (chronic obstructive pulmonary disease) Diabetes Hearing loss Sister Diabetes Myocardial infarction COPD (chronic obstructive pulmonary disease) Hypertension Brother Myocardial infarction Diabetes Cancer Stomach cancer Other No family history of bleeding disorder Denies family history of Ovarian cancer Prostate cancer Breast cancer Colorectal cancer Stroke Asthma Social History Smoking Status: Never smoker Second Hand Exposure: No; Hx Alcohol Use: No Hx Substance Use: No Preferred Language: German Communication Ability: Effective Visual Impairment: No Limitations Hearing Ability: Normal Miner Placer Required: No Beliefs That Will Affect Care: None marital status: Current Living Situation: Spouse current occupational status: retired How many Children do You have: 1 Feels Safe at Home: Yes Dental Care, Regularly: No Physical Activity Frequency: 1-2 Times per Week Seatbelt Use: always Assistive Devices: Glasses, Oxygen - Continuous, Walker and Wheelchair Review of Systems Review of Systems: Denies current fever, chills, headache, changes in vision, hearing, taste, and smell, chest pain, SOB, cough, abdominal pain, vomiting, diarrhea, hematemesis, melena, hematuria, and recent falls. All systems have been reviewed and are otherwise negative. Physical Exam Physical Exam: Physical Exam: General: In no acute distress, stated age, chronically ill-appearing and fatigued but non-toxic appearing HEENT: Normocephalic, atraumatic, no scleral icterus, patient with chronic drooping of the right eyelid, right pupil is round and reactive to light, left pupil is misshapen due to previous procedure, moist mucus membranes, trachea midline, no thyromegaly Chest/Pulm: No respiratory distress, symmetrical chest expansion, clear breath sounds throughout Cardiac: RRR, systolic murmur noted Abdomen: Negative for ascites and bruising, normoactive bowel sounds, soft, non-tender to palpation throughout Musculoskeletal: Symmetrical and without signs of acute trauma, upper and lower extremities with full ROM, no atrophy, spasticity, or flaccidity, patient is without nuchal rigidity or stifness Extremities: Patient with AV fistula located in the right forearm without signs of infection and with intact thrill, left Radial, and BL dorsalis pedis, and posterior tibial pulses are intact and symmetrical, mild pitting edema noted in the BL LE's Skin: Warm, dry, no rashes , lesions, or scars noted Neuro: Alert and oriented to person, place, month, year, and president, no focal defects, CN II-XII tested and intact,no tremors noted Psych: No acute distress, fatigued but cooperative during the exam Results & Data Results & Data ([facility]) Vital Signs (Past 12 Hours) Vital Signs Temp Pulse Resp BP Pulse Ox O2 Del Method O2 Flow Rate 07/22/22 12:35 75 07/22/22 11:55 71 18 100 07/22/22 11:51 74 16 100 07/22/22 11:51 77 16 99 Nasal Cannula 2 07/22/22 10:54 36.6 C 83 18 125/71 90 Room Air Laboratory Results Abnormal lab results 07/22/22 07/22/22 07/22/22 Range/Units 11:45 11:45 11:45 RBC 3.16 L (4.20-5.40) M/uL Hgb 9.8 L (12.0-16.0) g/dl Hct 31.9 L (37.0-47.0) % MCV 100.9 H (80.0-100.0) fL MCHC 30.7 L (32.0-36.0) g/dL RDW Std Deviation 55.0 H (36.4-46.3) fL RDW Coeff of Jared 14.7 H (11.5-14.5) % Lymph # (Auto) 1.04 L (1.2-3.4) K/uL Humphreys # (Auto) 0.87 H (0.11-0.59) K/uL VBG pCO2 66 H (38-50) mmHg Chloride 95 L (98-107) mmol/L Carbon Dioxide 37 H (21-32) mmol/L BUN 29 H (6-23) mg/dl Creatinine 4.88 H* (0.6-1.2) mg/dl BUN/Creatinine Ratio 5.9 L (10-20) Magnesium 2.5 H (1.7-2.4) mg/dl ALT 6 L (7-52) U/L Alkaline Phosphatase 112 H (34-104) U/L Troponin I High Sens 19.9 H (0-14) pg/ml Urine Protein (Negative) Ur Leukocyte Esterase (Negative) Urine WBC (Auto) (0-5) /hpf U Epithel Cells (Auto) (0-5) /lpf 07/22/22 Range/Units 12:43 RBC (4.20-5.40) M/uL Hgb (12.0-16.0) g/dl Hct (37.0-47.0) % MCV (80.0-100.0) fL MCHC (32.0-36.0) g/dL RDW Std Deviation (36.4-46.3) fL RDW Coeff of Jared (11.5-14.5) % Lymph # (Auto) (1.2-3.4) K/uL Humphreys # (Auto) (0.11-0.59) K/uL VBG pCO2 (38-50) mmHg Chloride (98-107) mmol/L Carbon Dioxide (21-32) mmol/L BUN (6-23) mg/dl Creatinine (0.6-1.2) mg/dl BUN/Creatinine Ratio (10-20) Magnesium (1.7-2.4) mg/dl ALT (7-52) U/L Alkaline Phosphatase (34-104) U/L Troponin I High Sens (0-14) pg/ml Urine Protein 2+ H (Negative) Ur Leukocyte Esterase 2+ H (Negative) Urine WBC (Auto) >30 H (0-5) /hpf U Epithel Cells (Auto) >30 H (0-5) /lpf Diagnostic Findings Chest X-Ray 07/22/22 11:00 XR chest 1V portable CLINICAL HISTORY: weakness COMPARISON STUDY: Chest CT January 17, 2022. Chest radiograph April 18, 2022. FINDINGS: Lung volumes are normal. Lungs are clear. There is no pneumothorax or pleural effusion. Cardiomegaly is unchanged. Mediastinal contours are normal. There is no evidence for pulmonary edema. Surgical clips project over the GE junction. IMPRESSION: No acute cardiopulmonary findings. No change in appearance of the chest. ACT 112: Negative or not required by law. Electronically signed by: Cyrus Serna M.D. 07/22/2022 11:[address] 07/22/22 11:00 CT OF THE HEAD WITHOUT CONTRAST CLINICAL HISTORY: weak, confusion/hallucinations COMPARISON STUDY: Head CT April 28, 2022. CT DOSE: 691.05 mGy.cm TECHNIQUE: Helical axial images of the head were obtained without IV contrast. Automated exposure control was utilized for the study. A dose lowering technique was utilized adhering to the principles of ALARA. FINDINGS: No acute intracranial hemorrhage, midline shift or mass effect is present. The ventricular system is stable. White matter hypodensity suggests small vessel disease. The basal cisterns are patent. No extra-axial collections are present. There are no findings to suggest acute dural sinus thrombosis or acute territorial infarct. No significant calvarial abnormalities are present. Visualized portions of the sinuses and mastoid air cells are clear. IMPRESSION: No acute intracranial findings. No change in appearance of the brain. ACT 112: Negative or not required by law. Electronically signed by: Cyrus Serna M.D. 07/22/2022 12:16 PM ECG Additional Comments: Normal sinus rhythm Left axis deviation Poor R wave progression, consider anterior NV vs. lead placement vs. LVH Abnormal ECG When compared with ECG of 28-APR-2022 15:25, T wave inversion no longer evident in Inferior leads T wave inversion no longer evident in Anterolateral leads QT has shortened Confirmed by Davon William ([id number]) on 07/22/2022 12:42:34 PM Code Status & VTE Plan Code Status DNR/DNI VTE Prophylaxis Plan VTE Prophylaxis will be ordered: Yes PG Care Time/CCT Total # of Minutes Spent Total Time Spent with Patient: Total time spent is greater than 50% in coordination of care (as documented) at patient's floor/unit and/or counseling patient: Coding [place] [address] INT INP/OBS CARE 3/75MIN Patient Type Established History Comprehensive Exam Comprehensive Medical Decision Making High Complexity Diagnoses Hallucinations R44.3 Fatigue R53.83 Hypertension I10 Diabetes mellitus E11.22; N18.6; Z79.4; Z99.2 Diabetes mellitus type: type 2 Diabetes mellitus manager intermediate insulin use: with skilled nursing use Diabetes mellitus complication status: with kidney complications Diabetes mellitus complication detail: with chronic kidney disease Chronic kidney disease stage: on chronic dialysis Hypothyroidism E03.9 Hypothyroidism type: unspecified Obstructive sleep apnea G47.33 Dyslipidemia E78.5 Depression with anxiety F41.8 End-stage renal disease on hemodialysis N18.6; Z99.2 Chronic respiratory failure with hypoxia J96.11 CHF (congestive heart failure) I50.9 Heart failure chronicity: acute on chronic Heart failure type: unspecified (4) Diabetes mellitus Diabetes mellitus type: type 2 Diabetes mellitus manager intermediate insulin use: with manager intermediate use Diabetes mellitus complication status: with kidney complications Diabetes mellitus complication detail: with chronic kidney disease Chronic kidney disease stage: on chronic dialysis Qualified Code(s): E11.22 - Type 2 diabetes mellitus with diabetic chronic kidney disease; N18.6 - End stage renal disease; Z79.4 - nursing home (current) use of insulin; Z99.2 - Dependence on renal dialysis (5) Hypothyroidism Hypothyroidism type: unspecified Qualified Code(s): E03.9 - Hypothyroidism, unspecified (11) CHF (congestive heart failure) Heart failure chronicity: acute on chronic Heart failure type: unspecified Qualified Code(s): I50.9 - Heart failure, unspecified
[2022-07-22] MEDS ORDERED: CARBOHYDRATES FOR HYPOGLYCEMIA PO PRN (15:06)
[2022-07-22] MEDS ORDERED: GLUCOSE 40% GEL 15 GM TUBE PO PRN (15:06)
[2022-07-22] MEDS ORDERED: GLUCOSE 10 TAB/TUBE PO PRN (15:06)
[2022-07-22] MEDS ORDERED: GLUCAGON FOR INJ 1 MG VIAL SQ PRN (15:06)
[2022-07-22] MEDS ORDERED: DEXTROSE 50% 50 ML SYRINGE IV PRN (15:06)
[2022-07-22 16:14] LABS: Amphetamines+Metham, Urine Neg (Neg); Barbiturates, Urine Pos (Neg); Benzodiazepine, Urine Neg (Neg); Cocaine, Urine Neg (Neg); MDMA (Ecstacy), Urine Neg (Neg); Methadone, Urine Neg (Neg); Opiate, Urine Neg (Neg); Phencyclidine, Urine Neg (Neg)
[2022-07-22] MEDS ORDERED: LACTULOSE SYRUP 20 GM/30 ML UDC PO PRN (16:36)
[2022-07-22] MEDS ORDERED: SODIUM ZIRCONIUM CYCLOSILICATE 10 GM PACKET PO SCH (16:38)
[2022-07-22] MEDS: INSULIN ASPART PER UNIT SC SCH ×2 (18:08→21:27)
[2022-07-22] MEDS: ACETAMINOPHEN 325 MG TAB PO SCH ×2 (18:09→21:29)
[2022-07-22] MEDS: CALCIUM ACETATE 667 MG CAP/TAB PO SCH (18:09)
[2022-07-22] MEDS ORDERED: LANTUS PER UNIT CHARGE SQ SCH (21:00)
[2022-07-22] MEDS: PRIMIDONE 50 MG TAB PO SCH (21:29)
[2022-07-22] MEDS: LEVOTHYROXINE SODIUM 100 MCG TABLET PO SCH (21:30)
[2022-07-22] MEDS: PANTOprazole 40 MG TAB PO SCH (21:30)
[2022-07-22] MEDS: carvediloL 12.5 MG TAB PO SCH (21:31)
[2022-07-22] MEDS: BUMETANIDE 1 MG TAB PO SCH (21:31)
[2022-07-22] MEDS: ATORVASTATIN 20 MG TAB PO SCH (21:32)
[2022-07-22] MEDS: HEPARIN SOD 5,000 UNIT/0.5 ML VIAL SQ SCH (21:33)
[2022-07-23] MEDS: ACETAMINOPHEN 325 MG TAB PO SCH ×4 (05:41→21:40)
[2022-07-23 07:13] LABS: Basophils # (auto) 0.04 K/uL (0-0.2); Basophils % (auto) 0.9 %; Eosinophils # (auto) 0.32 K/uL (0-0.50); Eosinophils % (auto) 6.9 %; Hematocrit (blood only) 29.3 % (37.0-47.0); Hemoglobin 9.1 g/dl (12.0-16.0); Immature Granulocytes # (auto) 0.01 K/uL (0.01-0.20); Immature Granulocytes % (auto) 0.2 %; Lymphocytes # (auto) 0.96 K/uL (1.2-3.4); Lymphocytes % (auto) 20.6 %; Mean Corpuscular Hemoglobin 31.5 pg (25.0-34.0); Mean Corpuscular Hgb Conc 31.1 g/dL (32.0-36.0); Mean Corpuscular Volume 101.4 fL (80.0-100.0); Mean Platelet Volume 10.4 fL (9.4-12.4); Monocytes # (auto) 0.75 K/uL (0.11-0.59); Monocytes % (auto) 16.1 %; Neutrophils # (auto) 2.58 K/uL (1.40-6.50); Neutrophils % (auto) 55.3 %; Platelet Count 126 K/uL (130-400); RDW Coefficient of Variation 14.5 % (11.5-14.5); RDW Standard Deviation 53.5 fL (36.4-46.3); Red Blood Count 2.89 M/uL (4.20-5.40); White Blood Count 4.66 K/ul (4.8-10.8)
[2022-07-23 07:46] LABS: Albumin Level 3.3 gm/dl (3.4-5.0); BUN Creatinine Ratio 5.9 (10-20); Bilirubin,Total 0.4 mg/dl (0.2-1.0); Calcium 8.9 mg/dl (8.5-10.1); Creatinine Clr Calc Pharmacy 8.3 ml/min; Est GFR (African American) 7.1 ml/min; Est GFR (Non-African American) 6.1 ml/min; Globulin 3.3 gm/dl (2.5-4.0); Potassium 5.6 mmol/L (3.5-5.1); Total Protein 6.6 gm/dl (6.0-8.3)
[2022-07-23] MEDS: VENLAFAXINE HCL XR 75 MG CAPXR PO SCH (08:16)
[2022-07-23] MEDS: PANTOprazole 40 MG TAB PO SCH ×2 (08:16→20:24)
[2022-07-23] MEDS: carvediloL 12.5 MG TAB PO SCH ×2 (08:16→20:26)
[2022-07-23] MEDS: HEPARIN SOD 5,000 UNIT/0.5 ML VIAL SQ SCH ×3 (08:16→20:26)
[2022-07-23] MEDS: CHOLECALCIFEROL 1,000 UNITS 25 MCG TAB PO SCH (08:16)
[2022-07-23] MEDS: BUMETANIDE 1 MG TAB PO SCH ×2 (08:16→20:24)
[2022-07-23] MEDS: CALCIUM ACETATE 667 MG CAP/TAB PO SCH ×3 (08:21→16:52)
[2022-07-23] MEDS: INSULIN ASPART PER UNIT SC SCH ×4 (08:21→21:33)
[2022-07-23] MEDS ORDERED: IRON SUCROSE 50 MG in SYRINGE 0 ML IV ONE (08:33)
[2022-07-23] MEDS ORDERED: EPOETIN ALFA 20,000 UNITS/ML VIAL IV ONE (08:34)
--- NOTE | 2022-07-23 09:08 | Hospitalist Progress Note ---
Date of Service July 23, 2022 Assessment & Plan (1) Hallucinations: Plan: -Admit to med/surge -The patient is currently afebrile, hemodynamically stable, and stable on her baseline 2-3L NC -At this time the etiology of the patient's fatigue and possible hallucinations are likely multifactorial including but not limited to polypharmacy, uremia due to ESRD and HD dependent, TASH without recent use of CPAP, and chronic neurologic decline such as demetia/alzhemier's -The patient complains of dysuria but her UA is not overtly suggestive of an acute UTI, S/P one dose of Ceftriaxone in the ED which will cover her for 24 hours, she remains without leukocytosis and is afebrile and hemodynamically stable. Will hold additional abx at this time and monitor her urine cultures -It appears that the patient and her may be having confusion/difficulty keeping her numerous medications organized, which could be leading to increased fatigue and possible mental status changes >For now will hold ativan and hold tramadol to see if she has improvement in her symptoms >Will continue with scheduled tylenol and more conservative measures for her chronic pain at this time >Patient should be on 300 mg Po Gabapentin TTS after dialysis, ensure that they know she should NOT be taking Pregabalin as well -Will order HS CPAP while admitted, will need to try and coordinate with CM to try and obtain a new CPAP machine prior to discharge -Will obtain a urine tox screen for further evaluation (+Barbiturates) -PT/OT consults placed as she may need to have another stay at rehab on discharge -AM CBC, CMP, Mag (2) Fatigue: Plan: -See hallucinations -Continue primidone at night for tremors (3) Hypertension: Plan: -Stable -Continue amlodipine, Carvedilol, (4) Diabetes mellitus: Plan: -Hold metformin -Monitor BSG ACHS , goal is 110-140 -Will start with 2 units lantus ACHS to avoid hypoglycemia with her ESRD -Correction factor of 50 with carb ratio of 15 -Adjust regimen as needed (5) Hypothyroidism: Plan: -Continue levothyroxine (6) Obstructive sleep apnea: Plan: -HS CPAP ordered -Will need to try and setup a new machine for her prior to discharge (7) Dyslipidemia: Plan: -Continue statin (8) Depression with anxiety: Plan: -Continue Venlafaxine -Hold ativan as this could be causing her symptoms (9) End-stage renal disease on hemodialysis: Plan: -Had dialysis today with Venofer 50mg -Nephrology consulted to assist with HD while admitted -Continue calcium acetate with meals and snacks -Continue Sodium zirconium (10) Chronic respiratory failure with hypoxia: Plan: -Continue baseline 2-3L NC -Incentive spirometry and prn albuterol ordered (11) CHF (congestive heart failure): Plan: -Continue Bumetanide Plan -BL SCDs and Sub-Q heparin for DVT PPX The patient was discussed with Dr. Suarez Admission and Anticipated Discharge Date Admission Date: July 22, 2022 Subjective Patient is awake and pleasant resting in bed seen after dialysis today. She states she feels alright currently. She admits to some urinary burning. She denies any further hallucinations. Review of Systems Review of Systems: Denies current fever, chills, headache, changes in vision, hearing, taste, and smell, chest pain, SOB, cough, abdominal pain, vomiting, diarrhea, hematemesis, melena, hematuria, and recent falls. All systems have been reviewed and are otherwise negative unless stated above. Physical Exam Constitutional: WD/WN, vitals as above Neck: trachea midline, no thyromegaly Respiratory: normal respiratory effort, lungs clear to auscultation Cardiovascular: RRR, no murmur, no edema Gastrointestinal (Abdomen): normal bowel sounds, soft, nontender, no hepatosplenomegaly Psychiatric: A+Ox3, euthymic affect Results & Data Results & Data ([facility]) Vital Signs (Past 12 Hours) Vital Signs Temp Pulse Resp BP Pulse Ox O2 Del Method O2 Flow Rate 07/23/22 07:40 36.5 C 73 16 173/80 H 94 Nasal Cannula 2 07/22/22 21:33 37.0 C 78 19 158/79 H 95 Nasal Cannula 2 Laboratory Results Abnormal lab results 07/22/22 07/22/22 07/22/22 Range/Units 11:45 11:45 11:45 WBC (4.8-10.8) K/ul RBC 3.16 L (4.20-5.40) M/uL Hgb 9.8 L (12.0-16.0) g/dl Hct 31.9 L (37.0-47.0) % MCV 100.9 H (80.0-100.0) fL MCHC 30.7 L (32.0-36.0) g/dL RDW Std Deviation 55.0 H (36.4-46.3) fL RDW Coeff of Jared 14.7 H (11.5-14.5) % Plt Count (130-400) K/uL Lymph # (Auto) 1.04 L (1.2-3.4) K/uL [place] # (Auto) 0.87 H (0.11-0.59) K/uL VBG pCO2 66 H (38-50) mmHg Potassium (3.5-5.1) mmol/L Chloride 95 L (98-107) mmol/L Carbon Dioxide 37 H (21-32) mmol/L BUN 29 H (6-23) mg/dl Creatinine 4.88 H* (0.6-1.2) mg/dl BUN/Creatinine Ratio 5.9 L (10-20) POC Glucose (70-99) mg/dl Magnesium 2.5 H (1.7-2.4) mg/dl ALT 6 L (7-52) U/L Alkaline Phosphatase 112 H (34-104) U/L Troponin I High Sens 19.9 H (0-14) pg/ml Albumin (3.4-5.0) gm/dl Urine Protein (Negative) Ur Leukocyte Esterase (Negative) Urine WBC (Auto) (0-5) /hpf U Epithel Cells (Auto) (0-5) /lpf Urine Barbiturates (Neg) 07/22/22 07/22/22 07/23/22 Range/Units 12:43 12:47 06:23 WBC 4.66 L (4.8-10.8) K/ul RBC 2.89 L (4.20-5.40) M/uL Hgb 9.1 L (12.0-16.0) g/dl Hct 29.3 L (37.0-47.0) % MCV 101.4 H (80.0-100.0) fL MCHC 31.1 L (32.0-36.0) g/dL RDW Std Deviation 53.5 H (36.4-46.3) fL RDW Coeff of Jared (11.5-14.5) % Plt Count 126 L (130-400) K/uL Lymph # (Auto) 0.96 L (1.2-3.4) K/uL [place] # (Auto) 0.75 H (0.11-0.59) K/uL VBG pCO2 (38-50) mmHg Potassium (3.5-5.1) mmol/L Chloride (98-107) mmol/L Carbon Dioxide (21-32) mmol/L BUN (6-23) mg/dl Creatinine (0.6-1.2) mg/dl BUN/Creatinine Ratio (10-20) POC Glucose (70-99) mg/dl Magnesium (1.7-2.4) mg/dl ALT (7-52) U/L Alkaline Phosphatase (34-104) U/L Troponin I High Sens (0-14) pg/ml Albumin (3.4-5.0) gm/dl Urine Protein 2+ H (Negative) Ur Leukocyte Esterase 2+ H (Negative) Urine WBC (Auto) >30 H (0-5) /hpf U Epithel Cells (Auto) >30 H (0-5) /lpf Urine Barbiturates Pos H (Neg) 07/23/22 07/23/22 Range/Units 06:23 07:22 WBC (4.8-10.8) K/ul RBC (4.20-5.40) M/uL Hgb (12.0-16.0) g/dl Hct (37.0-47.0) % MCV (80.0-100.0) fL MCHC (32.0-36.0) g/dL RDW Std Deviation (36.4-46.3) fL RDW Coeff of Jared (11.5-14.5) % Plt Count (130-400) K/uL Lymph # (Auto) (1.2-3.4) K/uL [place] # (Auto) (0.11-0.59) K/uL VBG pCO2 (38-50) mmHg Potassium 5.6 H (3.5-5.1) mmol/L Chloride (98-107) mmol/L Carbon Dioxide 35 H (21-32) mmol/L BUN 36 H (6-23) mg/dl Creatinine 6.08 H* D (0.6-1.2) mg/dl BUN/Creatinine Ratio 5.9 L (10-20) POC Glucose 101 H (70-99) mg/dl Magnesium (1.7-2.4) mg/dl ALT 6 L (7-52) U/L Alkaline Phosphatase (34-104) U/L Troponin I High Sens (0-14) pg/ml Albumin 3.3 L (3.4-5.0) gm/dl Urine Protein (Negative) Ur Leukocyte Esterase (Negative) Urine WBC (Auto) (0-5) /hpf U Epithel Cells (Auto) (0-5) /lpf Urine Barbiturates (Neg) Diagnostic Findings Chest X-Ray 07/22/22 11:00 XR chest 1V portable CLINICAL HISTORY: weakness COMPARISON STUDY: Chest CT January 17, 2022. Chest radiograph April 18, 2022. FINDINGS: Lung volumes are normal. Lungs are clear. There is no pneumothorax or pleural effusion. Cardiomegaly is unchanged. Mediastinal contours are normal. There is no evidence for pulmonary edema. Surgical clips project over the GE junction. IMPRESSION: No acute cardiopulmonary findings. No change in appearance of the chest. ACT 112: Negative or not required by law. Electronically signed by: Cyrus Serna M.D. 07/22/2022 11:[address] 07/22/22 11:00 CT OF THE HEAD WITHOUT CONTRAST CLINICAL HISTORY: weak, confusion/hallucinations COMPARISON STUDY: Head CT April 28, 2022. CT DOSE: 691.05 mGy.cm TECHNIQUE: Helical axial images of the head were obtained without IV contrast. Automated exposure control was utilized for the study. A dose lowering technique was utilized adhering to the principles of ALARA. FINDINGS: No acute intracranial hemorrhage, midline shift or mass effect is present. The ventricular system is stable. White matter hypodensity suggests small vessel disease. The basal cisterns are patent. No extra-axial collections are present. There are no findings to suggest acute dural sinus thrombosis or acute territorial infarct. No significant calvarial abnormalities are present. Visualized portions of the sinuses and mastoid air cells are clear. IMPRESSION: No acute intracranial findings. No change in appearance of the brain. ACT 112: Negative or not required by law. Electronically signed by: Cyrus Serna M.D. 07/22/2022 12:16 PM PG Care Time/CCT Total # of Minutes Spent Total Time Spent with Patient: Total time spent is greater than 50% in coordination of care (as documented) at patient's floor/unit and/or counseling patient: Coding Level of Care Code 96962 SUB INP/OBS CARE 2/35MIN Diagnoses Hallucinations R44.3 Fatigue R53.83 Hypertension I10 Diabetes mellitus E11.22; N18.6; Z79.4; Z99.2 Chronic kidney disease stage: on chronic dialysis Diabetes mellitus complication detail: with chronic kidney disease Diabetes mellitus complication status: with kidney complications Diabetes mellitus medical terminologist insulin use: with medical terminologist use Diabetes mellitus type: type 2 Hypothyroidism E03.9 Hypothyroidism type: unspecified Obstructive sleep apnea G47.33 Dyslipidemia E78.5 Depression with anxiety F41.8 End-stage renal disease on hemodialysis N18.6; Z99.2 Chronic respiratory failure with hypoxia J96.11 CHF (congestive heart failure) I50.9 Heart failure chronicity: acute on chronic Heart failure type: unspecified (4) Diabetes mellitus Chronic kidney disease stage: on chronic dialysis Diabetes mellitus complication detail: with chronic kidney disease Diabetes mellitus complication status: with kidney complications Diabetes mellitus medical terminologist insulin use: with medical terminologist use Diabetes mellitus type: type 2 Qualified Code(s): E11.22 - Type 2 diabetes mellitus with diabetic chronic kidney disease; N18.6 - End stage renal disease; Z79.4 - penitentiary (current) use of insulin; Z99.2 - Dependence on renal dialysis (5) Hypothyroidism Hypothyroidism type: unspecified Qualified Code(s): E03.9 - Hypothyroidism, unspecified (11) CHF (congestive heart failure) Heart failure chronicity: acute on chronic Heart failure type: unspecified Qualified Code(s): I50.9 - Heart failure, unspecified
--- NOTE | 2022-07-23 15:43 | Nephrology Consultation ---
Date of Consultation July 23, 2022 Assessment & Plan (1) End-stage renal disease on hemodialysis: (2) Anemia: Plan ESRD on HD TTS. Orders for HD today entered into the EHR and reviewed with the dialysis nurse. Shirley was seen and evaluated during her hemodialysis treatment. Outpatient Rx: TTS 4 hours, 180 optiflux, 350/800, 2K 2 calcium. EDW 92 kg. Left treatment on 07/21 at 91.6 kg) Shirley is maintained on Micera as an outpatient. She received a dose yesterday. Venofer 50 mg provided with HD today. Continue home antihypertensives including amlodipine. Medications are appropriately dosed for kidney function. May hold Phoslo if appetite remains poor. Continue sodium zirconium cyclosilicate on non dialysis days Renal diet. Continue ProRenal MVI and consider additional B vitamin supplementation. History of Present Illness Reason for Consultation: ESRD on HD Requesting Physician: Arian Suarez Attending Physician: Arian Suarez History of Present Illness Shirley is a 76 year-old female with ESRD due to diabetic kidney disease.She has been maintained on HD at [facility] since 2015 (TTS 4hr 2K 2Ca 1Mg F- 180NR 350/800 EDW 92kg).Medical history is significant for AODM, HTN, ASCVD, hypothyroidism, GERD, RLS, and XAVI/depression.She has chronic respiratory failure with hypoxic and has been maintained on 3L NC as well as HFpEF with chronic pulmonary hypertension. Shirley's recent medical history includes prog ressive debility and weakness. Shirley was admitted to [facility] from 04/28/22- 05/20/22 for generalized weakness, transaminitis, and uncontrolled HTN. Weakness was multifactorial including deconditioning, chronic diseases, and polypharmacy. Primidone was decreased down to 50 mg HS, venlafaxine was decreased to 75 mg PO daily, and gabapentin was changed to 300 mg PO MWF (after dialysis). Amlodipine 10 mg PO daily was added. She was discharged to [facility] on 05/20/22 for rehabilitation. Shirley returned home on 07/09/22. She states that she was doing well at home until yesterday when she started to experience some fatigue and notice visual hallucinations. She has never had hallucinations before. She reports seeing family members in the room who were not present. She feels strongly that symptoms are related to a recurrent UTI. she did receive a dose of ceftriaxone in the ER. Urine culture has not demonstrated any growth. Shirley was seen and evaluated this AM prior to and during her hemodialysis treatment. She completed her last dialysis treatment on 07/21/22 without issues. There have not been any recent complications with dialysis. Shirley was seen by Dr. Stephenson during dialysis. Allergies Allergy/AdvReac Type Severity Reaction Status Date / Time lisinopril AdvReac Intermediate cough Verified 07/10/22 11:07 Home Medications Medication Instructions Recorded Confirmed Type acetaminophen 500 mg tablet 1,000 mg PO Q6H PRN Pain 11/07/19 07/22/22 History (Tylenol Extra Strength) vit B complx, C-iron 8 mg-folic 1 tab PO QDL 02/27/20 07/22/22 History acid 800 mcg-D3 1,000 unit-zinc tablet (ProRenal) Oxygen Home #1 ea 02/29/20 07/22/22 Rx blood-glucose meter (OneTouch #1 ea 11/27/20 07/22/22 Rx Verio Meter) lancets 33 gauge (OneTouch Delica #100 ea 11/27/20 07/22/22 Rx Lancets) calcium acetate 667 mg tablet 667 mg PO UD 12/17/20 07/22/22 History bumetanide 2 mg tablet 4 mg PO BID 10/14/21 07/22/22 History lactulose 10 gram/15 mL oral 15 ml PO DAILY PRN Constipation 01/16/22 07/22/22 History solution pantoprazole 40 mg tablet,delayed 40 mg PO BID 90 days #180 tabs 01/28/22 07/22/22 Rx release tramadol 50 mg tablet 50 mg PO BID #60 tabs 01/29/22 07/22/22 Rx lorazepam 0.5 mg tablet 0.5 mg PO BID PRN anxiety; 01/30/22 07/22/22 Rx difficulty swallowing #30 tabs blood sugar diagnostic (OneTouch #300 ea 03/18/22 07/22/22 Rx Verio test strips) carvedilol 12.5 mg tablet (Coreg) 12.5 mg PO BID #180 tabs 03/18/22 07/22/22 Rx cholecalciferol (vitamin D3) 50 50 mcg PO DAILY #90 caps 03/18/22 07/22/22 Rx mcg (2,000 unit) capsule atorvastatin 20 mg tablet 20 mg PO HS #90 tabs 03/19/22 07/22/22 Rx levothyroxine 100 mcg tablet 100 mcg PO QPM #90 tabs 03/25/22 07/22/22 Rx sodium zirconium cyclosilicate 5 5 g PO 4XWK 03/25/22 07/22/22 History gram oral powder packet (Lokelma) primidone 50 mg tablet 50 mg PO HS #10 tabs 05/18/22 07/22/22 Rx ondansetron 8 mg disintegrating 8 mg PO Q8H PRN Nausea #90 tabs 07/15/22 07/22/22 Rx tablet venlafaxine 75 mg capsule,extended 75 mg PO DAILY #90 caps 07/20/22 07/22/22 Rx release 24 hr gabapentin 300 mg capsule 300 mg PO 3XWK 07/22/22 07/22/22 History aspirin 81 mg PO DAILY 07/23/22 07/23/22 History buspirone 5 mg tablet 5 mg BID 07/23/22 07/23/22 History hydralazine 50 mg tablet 50 mg TID 07/23/22 07/23/22 History prednisone 5 mg tablet 5 mg DAILY 07/23/22 07/23/22 History Patient History Medical History Abnormal EKG Acute electrocardiogram changes Acute hyperkalemia Anemia Anxiety Arthritis Coronary artery disease Depression Depression with anxiety Diabetes mellitus Diabetic retinopathy Dyslipidemia Elevated troponin End-stage renal disease on hemodialysis GERD without esophagitis Hernia, hiatal History of thrombophlebitis Hyperkalemia, diminished renal excretion Hypertension Hypothyroidism Insomnia Laceration of left lower extremity Macular puckering, bilateral Myoclonus Obstructive sleep apnea Panniculitis Paresthesias Polyarthritis Transaminitis Tubular adenoma of colon Type 2 diabetes mellitus with diabetic neuropathy Vitamin D deficiency Surgical History H/O: hysterectomy History of bladder surgery History of cataract surgery History of nasal septoplasty History of tonsillectomy S/P arteriovenous (AV) fistula creation S/P hysterectomy S/P repair of paraesophageal hernia S/P rotator cuff repair Family History Mother Leukemia Cerebral aneurysm Hypertension Anxiety Diabetes Cancer Heart disease Grandmother Hypertension Father Osteoarthritis COPD (chronic obstructive pulmonary disease) Diabetes Hearing loss Sister Diabetes Myocardial infarction COPD (chronic obstructive pulmonary disease) Hypertension Brother Myocardial infarction Diabetes Cancer Stomach cancer Other No family history of bleeding disorder Denies family history of Ovarian cancer Prostate cancer Breast cancer Colorectal cancer Stroke Asthma Social History Smoking Status: Never smoker Second Hand Exposure: No; Hx Alcohol Use: No Hx Substance Use: No Preferred Language: Ukrainian Communication Ability: Effective Visual Impairment: No Limitations Hearing Ability: Normal Pr Manager Required: No Beliefs That Will Affect Care: None marital status: Current Living Situation: Spouse Current Living Situation Comment: Home w/spouse current occupational status: retired How many Children do You have: 1 Feels Safe at Home: Yes Safety Concerns: Feels Safe At This Time Dental Care, Regularly: No Physical Activity Frequency: 1-2 Times per Week Seatbelt Use: always Assistive Devices: Oxygen - Continuous, Walker and Wheelchair Review of Systems Review of Systems: All systems reviewed & are unremarkable except as noted in HPI & below Constitutional: no fever and no fatigue Genitourinary: + dysuria; no hematuria Physical Exam Constitutional: well developed and + frail appearing; no acute distress Eyes: + anicteric sclerae; no corneal abnormality ENMT: Mouth: + dry oral mucous membranes Neck: normal visual inspection and trachea midline Respiratory: normal respiratory effort Auscultation: lungs clear to auscultation bilaterally and + rales Cardiovascular: Rate/Rhythm: regular rate Heart Sounds: normal S1 and normal S2 Extremities: + AV fistula; no edema Musculoskeletal: Extremities: no cyanosis and no clubbing Skin: + turgor decreased; no jaundice Neurologic: Motor/Sensory: no tremor and no asterixis Psychiatric: Orientation: alert and oriented x 3 Results & Data ([facility]) Vital Signs (Past 12 Hours) Vital Signs Temp Pulse Pulse Pulse Resp BP BP 07/23/22 12:38 36.9 C 69 157/62 H 07/23/22 12:30 73 147/58 H 07/23/22 12:00 70 145/66 H 07/23/22 11:30 68 127/61 07/23/22 11:00 68 91/70 L 07/23/22 10:30 69 126/68 07/23/22 10:00 73 154/70 H 07/23/22 09:30 73 164/62 H 07/23/22 09:02 68 174/71 H 07/23/22 08:51 37.2 C 69 07/23/22 07:40 36.5 C 73 16 173/80 H Pulse Ox O2 Del Method O2 Flow Rate 07/23/22 12:38 07/23/22 12:30 07/23/22 12:00 07/23/22 11:30 07/23/22 11:00 07/23/22 10:30 07/23/22 10:00 07/23/22 09:30 07/23/22 09:02 07/23/22 08:51 07/23/22 07:40 94 Nasal Cannula 2 Laboratory Results Laboratory Results - last 24 hr 07/22/22 07/22/22 07/22/22 12:47 12:47 16:19 WBC RBC Hgb Hct MCV MCH MCHC RDW Std Deviation RDW Coeff of Jared Plt Count MPV Immature Gran % (Auto) Neut % (Auto) Lymph % (Auto) [place] % (Auto) Eos % (Auto) Baso % (Auto) Neut # (Auto) Lymph # (Auto) [place] # (Auto) Eos # (Auto) Baso # (Auto) Immature Gran # (Auto) Sodium Potassium Chloride Carbon Dioxide Anion Gap BUN Creatinine Est Cr Clr Drug Dosing Est GFR ( Amer) Est GFR (Non-Af Amer) BUN/Creatinine Ratio Glucose POC Glucose 70 Calcium Total Bilirubin AST ALT Alkaline Phosphatase Total Protein Albumin Globulin Albumin/Globulin Ratio Urine Butalbital Pending Urine Opiates Screen Neg Ur Methadone, Qual Neg Urine Barbiturates Pos H Ur Phencyclidine (PCP) Neg U Amphetamin/Meth Scrn Neg MDMA (Ecstasy) Screen Neg Urine Amobarbital Pending Urine Pentobarbital Pending Urine Phenobarbital Pending Urine Secobarbital Pending U Benzodiazepines Scrn Neg Ur Cocaine Metabolite Neg U Marijuana (THC) Screen Neg Drug Screen Comment Pending 07/22/22 07/22/22 07/23/22 18:26 20:31 06:23 WBC 4.66 L RBC 2.89 L Hgb 9.1 L Hct 29.3 L MCV 101.4 H MCH 31.5 MCHC 31.1 L RDW Std Deviation 53.5 H RDW Coeff of Jared 14.5 Plt Count 126 L MPV 10.4 Immature Gran % (Auto) 0.2 Neut % (Auto) 55.3 Lymph % (Auto) 20.6 [place]ke % (Auto) 16.1 Eos % (Auto) 6.9 Baso % (Auto) 0.9 Neut # (Auto) 2.58 Lymph # (Auto) 0.96 L Parke # (Auto) 0.75 H Eos # (Auto) 0.32 Baso # (Auto) 0.04 Immature Gran # (Auto) 0.01 Sodium Potassium Chloride Carbon Dioxide Anion Gap BUN Creatinine Est Cr Clr Drug Dosing Est GFR ( Amer) Est GFR (Non-Af Amer) BUN/Creatinine Ratio Glucose POC Glucose 83 99 Calcium Total Bilirubin AST ALT Alkaline Phosphatase Total Protein Albumin Globulin Albumin/Globulin Ratio Urine Butalbital Urine Opiates Screen Ur Methadone, Qual Urine Barbiturates Ur Phencyclidine (PCP) U Amphetamin/Meth Scrn MDMA (Ecstasy) Screen Urine Amobarbital Urine Pentobarbital Urine Phenobarbital Urine Secobarbital U Benzodiazepines Scrn Ur Cocaine Metabolite U Marijuana (THC) Screen Drug Screen Comment 07/23/22 07/23/22 07/23/22 06:23 07:22 13:15 WBC RBC Hgb Hct MCV MCH MCHC RDW Std Deviation RDW Coeff of Jared Plt Count MPV Immature Gran % (Auto) Neut % (Auto) Lymph % (Auto) [place] % (Auto) Eos % (Auto) Baso % (Auto) Neut # (Auto) Lymph # (Auto) [place] # (Auto) Eos # (Auto) Baso # (Auto) Immature Gran # (Auto) Sodium 137 Potassium 5.6 H Chloride 98 Carbon Dioxide 35 H Anion Gap 4 BUN 36 H Creatinine 6.08 H* D Est Cr Clr Drug Dosing 8.3 Est GFR ( Amer) 7.1 Est GFR (Non-Af Amer) 6.1 BUN/Creatinine Ratio 5.9 L Glucose 87 POC Glucose 101 H 94 Calcium 8.9 Total Bilirubin 0.4 AST 14 ALT 6 L Alkaline Phosphatase 103 Total Protein 6.6 Albumin 3.3 L Globulin 3.3 Albumin/Globulin Ratio 1.0 Urine Butalbital Urine Opiates Screen Ur Methadone, Qual Urine Barbiturates Ur Phencyclidine (PCP) U Amphetamin/Meth Scrn MDMA (Ecstasy) Screen Urine Amobarbital Urine Pentobarbital Urine Phenobarbital Urine Secobarbital U Benzodiazepines Scrn Ur Cocaine Metabolite U Marijuana (THC) Screen Drug Screen Comment Diagnostic Findings XR chest 1V portable FINDINGS: Lung volumes are normal. Lungs are clear. There is no pneumothorax or pleural effusion. Cardiomegaly is unchanged. Mediastinal contours are normal. T here is no evidence for pulmonary edema. Surgical clips project over the GE junction. IMPRESSION: No acute cardiopulmonary findings. No change in appearance of the chest. PG Care Time/CCT Total # of Minutes Spent Total Time Spent with Patient: Total time spent is greater than 50% in coordination of care (as documented) at patient's floor/unit and/or counseling patient: Coding Level of Care Code INP/OBS CONSULT LVL 4, 60 MIN Diagnoses End-stage renal disease on hemodialysis N18.6; Z99.2 Anemia D64.9
[2022-07-23] MEDS ORDERED: GABAPENTIN 300 MG CAP PO SCH (16:30)
[2022-07-23] MEDS: LEVOTHYROXINE SODIUM 100 MCG TABLET PO SCH (20:23)
[2022-07-23] MEDS: ATORVASTATIN 20 MG TAB PO SCH (20:23)
[2022-07-23] MEDS: PRIMIDONE 50 MG TAB PO SCH (20:23)
[2022-07-24] MEDS: ACETAMINOPHEN 325 MG TAB PO SCH ×2 (03:57→10:09)
[2022-07-24 07:31] LABS: Basophils # (auto) 0.05 K/uL (0-0.2); Basophils % (auto) 1.1 %; Eosinophils # (auto) 0.28 K/uL (0-0.50); Eosinophils % (auto) 5.9 %; Hematocrit (blood only) 29.2 % (37.0-47.0); Immature Granulocytes # (auto) 0.02 K/uL (0.01-0.20); Immature Granulocytes % (auto) 0.4 %; Lymphocytes # (auto) 1.01 K/uL (1.2-3.4); Lymphocytes % (auto) 21.4 %; Mean Corpuscular Hemoglobin 31.1 pg (25.0-34.0); Mean Corpuscular Hgb Conc 30.8 g/dL (32.0-36.0); Mean Platelet Volume 10.2 fL (9.4-12.4); Monocytes # (auto) 0.68 K/uL (0.11-0.59); Monocytes % (auto) 14.4 %; Neutrophils # (auto) 2.67 K/uL (1.40-6.50); Neutrophils % (auto) 56.8 %; Platelet Count 122 K/uL (130-400); RDW Coefficient of Variation 14.6 % (11.5-14.5); Red Blood Count 2.89 M/uL (4.20-5.40); White Blood Count 4.71 K/ul (4.8-10.8)
[2022-07-24 07:37] LABS: Albumin Level 3.4 gm/dl (3.4-5.0); Bilirubin,Total 0.4 mg/dl (0.2-1.0); Calcium 8.9 mg/dl (8.5-10.1); Creatinine Clr Calc Pharmacy 11.6 ml/min; Est GFR (African American) 10.6 ml/min; Est GFR (Non-African American) 9.2 ml/min; Globulin 3.3 gm/dl (2.5-4.0); Phosphorus 3.1 mg/dl (2.5-4.9); Potassium 4.6 mmol/L (3.5-5.1); Total Protein 6.7 gm/dl (6.0-8.3)
[2022-07-24] MEDS: VENLAFAXINE HCL XR 75 MG CAPXR PO SCH (08:26)
[2022-07-24] MEDS: CHOLECALCIFEROL 1,000 UNITS 25 MCG TAB PO SCH (08:26)
[2022-07-24] MEDS: BUMETANIDE 1 MG TAB PO SCH (08:29)
[2022-07-24] MEDS: CALCIUM ACETATE 667 MG CAP/TAB PO SCH ×2 (08:30→12:30)
[2022-07-24] MEDS: carvediloL 12.5 MG TAB PO SCH (08:30)
[2022-07-24] MEDS: HEPARIN SOD 5,000 UNIT/0.5 ML VIAL SQ SCH (08:34)
[2022-07-24] MEDS: INSULIN ASPART PER UNIT SC SCH ×2 (08:41→12:34)
[2022-07-24] MEDS ORDERED: amLODIPine BESYLATE 5 MG TAB PO SCH (09:00)
[2022-07-24] MEDS: PANTOprazole 40 MG TAB PO SCH (09:32)
--- NOTE | 2022-07-24 13:02 | Discharge Summary ---
Date of Service July 24, 2022 Admission HPI Per Admitting Provider Shirley is a 76 year old female with a PMH significant for ESRD on HD TTS, Chronic respiratory failure with hypoxic on baseline 3L NC, DM II, Hypothyroidism, CAD, HFpEF (LVEF of 55-60% as of 02/27/2020), mod tricuspid regurg, severe mitral annular calcification, moderate pulmonary HTN, TASH, hyperlipidemia, depression and anxiety, polymyalgia rheumatica, HTN, RSL, resting tremor, and memory changes who presented to the [facility] ED from home on 07/22/22 with complaints of fatigue and hallucinations. In the ED the patient was found to be afebrile, hemodynamically stable, and stable on 2L NC. Labs were significant for a CBC with WBC WNL, stable Hgb at 9.8, stable platelets at 141, MCV of 100.9, VBG showing a pH of 7.36, pCO2 of 66, and pO2 of 23, cr of 4.88, chloride of 95 with bicarb of 37, mag of 2.5, otherwise stable electrolytes, alk phos of 112 (up from 76 as of 05/29/22) otherwise stable LFTs, initial high sensitivity trop of 19.9, TSH of 2.36, UA showing 2+ protein, 2+ Leukocyte esterase, > 30 WBC, and negative for bacteria, and covid negative. CT of the head was read as "No acute intracranial findings. No change in appearance of the brain.". Chest xray was read as "No acute cardiopulmonary findings. No change in appearance of the chest.". Prior to admission the patient was given one dose of Ceftriaxone. Per chart review, the patient was last admitted to [facility] from 04/28/22- 05/20/22 for generalized weakness, transaminitis, and uncontrolled HTN. Per the DC summary, her weakness was thought to be multifactorial including deconditioning, her chronic diseases, and polypharmacy. The patient's primidone was decreased down to 50 mg HS, her venlafaxine was decreased down to 75 mg PO daily, her gabapentin was changed to 300 mg PO MWF (after dialysis), and her venlafaxine was changed from 150 mg daily to 75 mg daily. Amlodipine 10 mg PO daily was added during her admission for uncontrolled HTN and her ibuprofen was discontinued due to risks of worsening renal disease and bleeding risks. She was discharged to [facility] on 05/20/22 for continued physical therapy as she was still very weak and required a 2 person assist during her admission. At the time of the exam the patient was resting in bed in no acute distress with her sitting bedside, history was obtained from both. The patient appears fatigued during my exam and fell asleep multiple times during my exam but was easy to wake. Her states that she was doing well since her discharge from [facility] on 07/09/22 until yesterday after they arrived home from dialysis. They state that the patient became progressively more tired, confused, and was "see people and things that are not there". When asked to elaborate the patient explained that she was sitting in her recliner yesterday evening and wanted to get up, but her walker was out of reach. She was yelling to her and daughter because she thought they were in the room with her, her explains that they were not in the room. When asked to elaborate on what "things" she has been seeing she became frustrated and wanted to know why I was asking. I explained that we are admitted her for weakness and hallucinations so I need to know what she may be seeing that is not really in the room. She would only say that she is seeing "objects" that are not in the room. She and her clarified that the hallucinations started yesterday and have not been occurring previously. I admitted the patient last time she was admitted to [facility] and her had said that the patient was having a gradual decline in cognition over the past year. He states that this is more acute than normal. They deny recent fevers, headaches, changes in hearing, taste, and smell, chest pain, increased SOB, abdominal pain, vomiting, diarrhea, hematuria, melena, LE swelling and recent falls. She makes a small amount of urine despite her dialysis status. When asked if she has been experiencing dysuria she states that she has over the past 3 days. We went over her Med rec, her states that he helps her with her medications. Of note, the patient is prescribed 50 mg PO tramadol BID prn for chronic right foot pain. She and her also state that she uses 0.5 mg PO ativan BID prn for anxiety. When asked if she ever takes these medications more than prescribed if her symptoms are severe she stated "yes". She stated that she will often take the tramadol up to 4 times daily for pain. They confirmed that she is no longer taking Pregabalin since she was switched to Gabapentin after her last discharge. However, after review of her PDMP it appears that she recently picked up a refill of her Pregabalin last month after the change had been made. The patient is still without a functioning CPAP machine as her previous one was recalled and she has yet to try and obtain another. Please refer to Dr. Richards's attetsation for any changes to the treatment plan. Admission Exam Per Admitting Provider General:In no acute distress, stated age, chronically ill-appearing and fatigued but non-toxic appearing HEENT:Normocephalic, atraumatic, no scleral icterus,patient with chronic drooping of the right eyelid,right pupil is round and reactive to light, left pupil is misshapen due to previous procedure, moist mucus membranes, trachea midline, no thyromegaly Chest/Pulm:No respiratory distress, symmetrical chest expansion, clear breath sounds throughout Cardiac:RRR, systolic murmur noted Abdomen:Negative for ascites and bruising, normoactive bowel sounds, soft, non-tender to palpation throughout Musculoskeletal:Symmetrical and without signs of acute trauma, upper and lower extremities with full ROM, no atrophy, spasticity, or flaccidity, patient is without nuchal rigidity or stifness Extremities: Patient with AV fistula located in the right forearm without signs of infection and with intact thrill,left Radial, and BL dorsalis pedis, and posterior tibial pulses are intact and symmetrical, mild pitting edema noted in the BL LE's Skin:Warm, dry, no rashes , lesions, or scars noted Neuro:Alert and oriented to person, place, month, year, and president, no focal defects, CN II-XII tested and intact,no tremors noted Psych:No acute distress, fatigued but cooperative during the exam Principal Diagnosis Hallucinations Fatigue Discharge Exam Constitutional WD/WN, vitals as above Neck trachea midline, no thyromegaly Respiratory normal respiratory effort, lungs clear to auscultation Cardiovascular RRR, no murmur, no edema Gastrointestinal (Abdomen) normal bowel sounds, soft, nontender, no hepatosplenomegaly Skin skin break down on buttocks - see wound notes and picture Neurologic patellar DTR's 2+ bilat, sensation intact and PERRL, EOMI, accommodation nl, no face palsy, no dysarthria Psychiatric A+Ox3, euthymic affect Discharge Data Allergies Allergy/AdvReac Type Severity Reaction Status Date / Time lisinopril AdvReac Intermediate cough Verified 07/10/22 11:07 Consultations 07/22/22 14:06 ED Decision to Admit Stat 07/22/22 14:51 Consult Nephrology Routine Ordered Studies 07/22/22 11:00 CT head/brain wo con Stat IMPRESSION: No acute intracranial findings. No change in appearance of the brain. Hospital Course (1) Hallucinations: -Admit to med/surge -The patient is currently afebrile, hemodynamically stable, and stable on her baseline 2-3L NC -At this time the etiology of the patient's fatigue and possible hallucinations are likely multifactorial including but not limited to polypharmacy, uremia due to ESRD and HD dependent, TASH without recent use of CPAP, and chronic neurologic decline such as demetia/alzhemier's -The patient complains of dysuria but her UA is not overtly suggestive of an acute UTI, S/P one dose of Ceftriaxone in the ED which will cover her for 24 hours, she remains without leukocytosis and is afebrile and hemodynamically stable. Will hold additional abx at this time and monitor her urine cultures -It appears that the patient and her may be having confusion/difficulty keeping her numerous medications organized, which could be leading to increased fatigue and possible mental status changes >For now will hold ativan and hold tramadol to see if she has improvement in her symptoms >Will continue with scheduled tylenol and more conservative measures for her chronic pain at this time >Patient should be on 300 mg Po Gabapentin TTS after dialysis, ensure that they know she should NOT be taking Pregabalin as well -Will order HS CPAP while admitted, will need to try and coordinate with CM to try and obtain a new CPAP machine prior to discharge Patient will likely need to redo the sleep study since it has been 4+ years without a CPAP -Will obtain a urine tox screen for further evaluation (+Barbiturates - on Primidone) -PT/OT consults placed -Patient to have Home Health Therapy Ativan and Tramadol held during hospital admission and recommend to continue to hold these medications upon discharge (2) Fatigue: -See hallucinations -Continue primidone at night for tremors -CM working on getting patient set up for a repeat sleep study for her sleep apnea (3) Hypertension: -Stable -Continue amlodipine, Carvedilol, Bumex (4) Diabetes mellitus: -Last HgbA1C 03/21 - 5.7 (5) Hypothyroidism: -Continue levothyroxine (6) Obstructive sleep apnea: -Patient may need to have repeat sleep study testing for CPAP -It has been 4+ years since she has used her CPAP machine. -Patient will follow up with Pulm as outpatient to decide if repeat testing is needed or if a new CPAP machine can be ordered with her old testing results (7) Dyslipidemia: -Continue statin (8) Depression with anxiety: -Continue Venlafaxine -Ativan was held as inpatient (9) End-stage renal disease on hemodialysis: -Had dialysis 07/23/22 with Venofer 50mg -Nephrology consulted to assist with HD while admitted -Continue calcium acetate with meals and snacks -Continue Sodium zirconium (10) Chronic respiratory failure with hypoxia: -Continue baseline 2-3L NC -Incentive spirometry and prn albuterol ordered while inpatient -Patient follows with pulmonology as outpatent (11) CHF (congestive heart failure): -Continue Bumetanide Plan -BL SCDs and Sub-Q heparin for DVT PPX The patient was discussed with Dr. Suarez Total Time Total Time Spent Total Time Spent (In Minutes): 40 Discharge Plan Discharge Items Patient Disposition: Home - Home Health Services Reason For Visit: FATIGUE, HALLUCINATIONS Discharge Diagnosis: hallucinations fatigue HTN Condition on Discharge: Good Activity: Resume your previous activity Non-emergency contact: Primary Care Provider Call non-emergency contact if: you have any medication questions and your symptoms worsen Follow-up/Referrals: Julito Burt MD [Primary Care Provider] - 07/31/22 11:00 am Diet: Dialysis Renal Addtl Attending Provider Instructions: You were admitted with complaints of fatigue and hallucinations. You tramadol and ativan medications were held during your hospital stay. You were maintained on all other of your home medications including your Bumex, Carvedilol and newly prescribed amlodipine as well. You had dialysis 07/23/22. You did not experience any further hallucinations during your hospital stay. Your laboratory values were all stable and you also had a CT of your head that was normal. It is recommended for you to follow up with your master barber to get set up with a new CPAP. The hospital is setting you up with this appointment. Pending Studies at Discharge: Yes Studies:: Final urine culture Preliminary - Yeast not Belle albicans Stand-Alone Forms: My [facility] Medications and DC Order Prescriptions: New amlodipine [Norvasc] 5 mg Tablet 10 mg PO QAM Qty: 30 0RF amlodipine 10 mg tablet 10 mg PO DAILY Qty: 30 0RF Continued (DME) blood-glucose meter [OneTouch Verio Meter] [facility] [place] See Rx Instructions .ROUTE .MEDSUPPLY Qty: 1 0RF Rx Instructions: As directed E11.9 (DME) lancets [OneTouch Delica Lancets] 33 gauge [facility] [place] Rx Instructions .ROUTE .MEDSUPPLY Qty: 100 3RF Rx Instructions: use to test twice daily pantoprazole 40 mg tablet,delayed release (DR/EC) 40 mg PO BID 90 Days Qty: 180 3RF atorvastatin 20 mg tablet 20 mg PO HS Qty: 90 3RF Hold Instructions: muscle pain levothyroxine 100 mcg tablet 100 mcg PO QPM Qty: 90 3RF ondansetron 8 mg tablet,disintegrating 8 mg PO Q8H PRN (Reason: Nausea) Qty: 90 5RF venlafaxine 75 mg capsule,extended release 24hr 75 mg PO DAILY Qty: 90 3RF Lokelma 5 gram powder in packet 5 g PO 4XWK Rx Instructions: SunMonWedFri. Ordered daily pt only takes 4 days a week due to diarrhea. bumetanide 2 mg tablet 4 mg PO BID Rx Instructions: GETS FROM DIALYSIS CLINIC ([facility] [place]) OneTouch Verio test strips Strip See Rx Instructions .ROUTE .MEDSUPPLY Qty: 300 3RF Rx Instructions: test twice daily E11.9 carvedilol [Coreg] 12.5 mg tablet 12.5 mg PO BID Qty: 180 3RF cholecalciferol (vitamin D3) 50 mcg (2,000 unit) capsule 50 mcg PO DAILY Qty: 90 3RF acetaminophen [Tylenol Extra Strength] 500 mg Tablet 1,000 mg PO Q6H PRN (Reason: Pain) ProRenal 8 mg iron-800 mcg-1,000 unit tablet 1 tab PO QDL ([facility] [place]) Oxygen Home Liters Per Minute See Rx Instructions .ROUTE .MEDSUPPLY Qty: 1 0RF Rx Instructions: 3 liters continuously calcium acetate 667 mg Tablet 667 mg PO UD Rx Instructions: 1 cap with every meal and 1 cap with snacks lactulose 10 gram/15 mL solution 15 ml PO DAILY PRN (Reason: Constipation) primidone 50 mg tablet 50 mg PO HS Qty: 10 0RF gabapentin 300 mg capsule 300 mg PO 3XWK Rx Instructions: Wednesday, , wednesday after dialysis buspirone 5 mg tablet 5 mg BID aspirin 81 mg 81 mg PO DAILY hydralazine 50 mg tablet 50 mg TID Rx Instructions: does not take prior to HD prednisone 5 mg tablet 5 mg DAILY Discontinued tramadol 50 mg tablet 50 mg PO BID Qty: 60 2RF lorazepam 0.5 mg tablet 0.5 mg PO BID PRN (Reason: anxiety; difficulty swallowing) Qty: 30 0RF Admission Data Admit Date/Time: 07/22/22 14:50 Attending Provider: Arian Suarez Admit Provider: Sebas Richards Primary Care Provider: Julito Burt Other Providers: Sebas Richards ; Payam Stephenson ; Charlee Avendaño Kevin C. ; Jody Rodriguez ; [facility] Other Interventions: Discharge Summary Assessment (RN) Last Done: 07/24/22 14:46 Coding Level of Care Code HOSP INP/OBS DISCH >30 MIN Diagnoses Hallucinations R44.3 Fatigue R53.83 Hypertension I10 Diabetes mellitus E11.22; N18.6; Z79.4; Z99.2 Chronic kidney disease stage: on chronic dialysis Diabetes mellitus complication detail: with chronic kidney disease Diabetes mellitus complication status: with kidney complications Diabetes mellitus senior living insulin use: with vermin exterminator use Diabetes mellitus type: type 2 Hypothyroidism E03.9 Hypothyroidism type: unspecified Obstructive sleep apnea G47.33 Dyslipidemia E78.5 Depression with anxiety F41.8 End-stage renal disease on hemodialysis N18.6; Z99.2 Chronic respiratory failure with hypoxia J96.11 CHF (congestive heart failure) I50.9 Heart failure chronicity: acute on chronic Heart failure type: unspecified Time Spent (min) 40
--- NOTE | 2022-07-24 13:21 | Nephrology Progress Note ---
Date of Service July 24, 2022 Assessment & Plan (1) End-stage renal disease on hemodialysis: (2) Anemia: Plan ESRD on HD TTS. Completed treatment yesterday with adequate clearance and UF. No change to Rx. Plan next treatment tomorrow. Outpatient Rx: TTS 4 hours, 180 optiflux, 350/800, 2K 2 calcium. EDW 92 kg. Left treatment on 07/21 at 91.6 kg) Shirley is maintained on Micera as an outpatient. She received a dose yesterday. Venofer 50 mg provided with HD yesterday. Continue home antihypertensives including amlodipine. Medications are appropriately dosed for kidney function. Continue sodium zirconium cyclosilicate on non dialysis days Renal diet. Continue renal MVI. Admission and Anticipated Discharge Date Admission Date: July 22, 2022 Subjective No acute events overnight. Shirley was seen and evaluated with her at the bedside this AM. She feels well and reports no persistent symptoms of confusion or hallucinations. She hopes to return home today. Her is supportive of this. Dialysis was tolerated well yesterday with no complications with treatment. Review of Systems Review of Systems: All systems reviewed & are unremarkable except as noted in HPI & below Physical Exam Constitutional: well developed and + frail appearing; no acute distress Eyes: + anicteric sclerae; no corneal abnormality ENMT: Mouth: + dry oral mucous membranes Neck: normal visual inspection and trachea midline Respiratory: normal respiratory effort Auscultation: lungs clear to auscultation bilaterally and + rales Cardiovascular: Rate/Rhythm: regular rate Heart Sounds: normal S1 and normal S2 Extremities: + AV fistula; no edema Musculoskeletal: Extremities: no cyanosis and no clubbing Skin: + turgor decreased; no jaundice Neurologic: Motor/Sensory: no tremor and no asterixis Psychiatric: Orientation: alert and oriented x 3 Results & Data ([facility]) Vital Signs (Past 12 Hours) Vital Signs Temp Pulse Resp BP Pulse Ox O2 Del Method O2 Flow Rate 07/24/22 12:11 160/82 H 07/24/22 07:25 Room Air 07/24/22 08:23 68 185/73 H 07/24/22 07:00 183/79 H 07/24/22 06:55 37.2 C 98 H 16 185/82 H 93 Nasal Cannula 2 Laboratory Results Laboratory Results - last 24 hr 07/23/22 07/23/2207/23/23 13:15 17:03 20:40 WBC RBC Hgb Hct MCV MCH MCHC RDW Std Deviation RDW Coeff of Jared Plt Count MPV Immature Gran % (Auto) Neut % (Auto) Lymph % (Auto) Summit % (Auto) Eos % (Auto) Baso % (Auto) Neut # (Auto) Lymph # (Auto) [place] # (Auto) Eos # (Auto) Baso # (Auto) Immature Gran # (Auto) Sodium Potassium Chloride Carbon Dioxide Anion Gap BUN Creatinine Est Cr Clr Drug Dosing Est GFR ( Amer) Est GFR (Non-Af Amer) BUN/Creatinine Ratio Glucose POC Glucose 94 128 H 134 H Calcium Phosphorus Total Bilirubin AST ALT Alkaline Phosphatase Total Protein Albumin Globulin Albumin/Globulin Ratio 07/24/22 07/24/22 07/24/22 06:40 06:40 08:04 WBC 4.71 L RBC 2.89 L Hgb 9.0 L Hct 29.2 L MCV 101.0 H MCH 31.1 MCHC 30.8 L RDW Std Deviation 53.0 H RDW Coeff of Jared 14.6 H Plt Count 122 L MPV 10.2 Immature Gran % (Auto) 0.4 Neut % (Auto) 56.8 Lymph % (Auto) 21.4 Summit % (Auto) 14.4 Eos % (Auto) 5.9 Baso % (Auto) 1.1 Neut # (Auto) 2.67 Lymph # (Auto) 1.01 L Summit # (Auto) 0.68 H Eos # (Auto) 0.28 Baso # (Auto) 0.05 Immature Gran # (Auto) 0.02 Sodium 137 Potassium 4.6 Chloride 100 Carbon Dioxide 34 H Anion Gap 3 BUN 22 Creatinine 4.36 H D Est Cr Clr Drug Dosing 11.6 Est GFR ( Amer) 10.6 Est GFR (Non-Af Amer) 9.2 BUN/Creatinine Ratio 5.0 L Glucose 102 H POC Glucose 127 H Calcium 8.9 Phosphorus 3.1 Total Bilirubin 0.4 AST 15 ALT 5 L Alkaline Phosphatase 107 H Total Protein 6.7 Albumin 3.4 Globulin 3.3 Albumin/Globulin Ratio 1.0 07/24/22 12:11 WBC RBC Hgb Hct MCV MCH MCHC RDW Std Deviation RDW Coeff of Jared Plt Count MPV Immature Gran % (Auto) Neut % (Auto) Lymph % (Auto) Summit % (Auto) Eos % (Auto) Baso % (Auto) Neut # (Auto) Lymph # (Auto) [place] # (Auto) Eos # (Auto) Baso # (Auto) Immature Gran # (Auto) Sodium Potassium Chloride Carbon Dioxide Anion Gap BUN Creatinine Est Cr Clr Drug Dosing Est GFR ( Amer) Est GFR (Non-Af Amer) BUN/Creatinine Ratio Glucose POC Glucose 221 H Calcium Phosphorus Total Bilirubin AST ALT Alkaline Phosphatase Total Protein Albumin Globulin Albumin/Globulin Ratio PG Care Time/CCT Total # of Minutes Spent Total Time Spent with Patient: Total time spent is greater than 50% in coordination of care (as documented) at patient's floor/unit and/or counseling patient: Coding Level of Care Code 59697 SUB INP/OBS CARE 3/50MIN Diagnoses End-stage renal disease on hemodialysis N18.6; Z99.2 Anemia D64.9
[2022-07-26 13:17] LABS: Amobarbital, Urine Conf NEGATIVE ng/mL (<100); Butalbital, Urine NEGATIVE ng/mL (<100); Pentobarbital, Urine Conf NEGATIVE ng/mL (<100); Phenobarbital, Urine 373 ng/mL (<100); Secobarbital, Urine Conf NEGATIVE ng/mL (<100)
== END 2022-07-24 15:56 | disposition home health service (06) ==
LOC: ED 10:49 → 3W 10:49 → SUATTDRO 14:50 → 3W 15:32

== ENCOUNTER 2022-09-29 04:36 | Inpatient (IN) ==
--- NOTE | 2022-09-29 05:24 | Emergency Department Note ---
Impression & Plan AMS (altered mental status), End-stage renal disease on hemodialysis, CHF (congestive heart failure) ED Provider Note CHIEF COMPLAINT: Unresponsive HISTORY OF PRESENT ILLNESS: This 77-year-old female patient with past medical history of CAD, end-stage renal disease on hemodialysis, diabetes mellitus, cardiomyopathy, COPD presents to the emergency department with complaints of an unresponsive episode. The patient normally goes to hemodialysis on Wednesday and Wednesday. Her attempted to wake her at about 3 AM today as scheduled. He was unable to get her to respond. He called the patient's daughter notes that the patient did not recognize her. They did use painful st imuli to get her to wake up. She was on nasal cannula oxygen with saturations in the 70s by report. Patient is currently on nonrebreather and satting 100%. Her daughter states she "usually has a UTI" when these episodes occur. Patient has previously been hospice status and did refuse dialysis temporarily. REVIEW OF SYSTEMS: A review of systems was performed with positives and pertinent negatives listed in the history of present illness. 10 systems were reviewed and are otherwise negative. ALLERGIES: see below MEDICATIONS: see below PMH: see below SOCIAL HISTORY: see below DDx: Infection, dehydration, metabolic abnormality, hypo/hyperglycemia, electrolyte disturbance, anemia, hypoxia, cardiac sources, intracerebral event, toxicologic, neurologic, as well as other pathologies. PHYSICAL EXAM: Vital signs reviewed. Noted to be hypertensive General: Chronically ill-appearing 77-year-old female on nonrebreather HEENT: No scleral icterus, PERRLA, neck supple. Moist mucous membranes Cardiovascular: Regular rate and rhythm, no extra sounds. Pulmonary: Clear to auscultation bilaterally, normal work of breathing. On nonrebreather Abdomen: Soft, nontender, nondistended, positive bowel sounds. Musculoskeletal: Atraumatic, no peripheral edema. Neurologic: Patient somnolent but arousable and oriented x 3, speech is clear. Moves all 4 extremities. Skin: Warm, dry, no rash EMERGENCY DEPARTMENT COURSE/MDM: This patient was evaluated and appeared to be in no significant distress. IV access was obtained and laboratory work was drawn. The patient was placed on the cardiac rehabilitation specialist noted to be in a normal sinus rhythm. Chest x-ray reveals a right midlung infiltrate versus CHF. Nursing staff was able to wean the patient's oxygen down to nasal cannula. Head CT was performed and is negative. Laboratory work reveals a mild leukocytosis, potassium of 6.3. Creatinine is elevated in the setting of end-stage renal disease. Patient is due for dialysis today. UA was sent at the request of the patient's daughter who stated she has had UTIs in the past. Nursing staff straight cath the patient and only got enough for urine culture. Patient's case was discussed with the hospitalist who will evaluate the patient for further management. Family and patient are aware of the plan and agree. MONITORING: An order for cardiac monitoring was placed and the patient is noted to be in a NSR at 76 beats per minute. RADIOLOGY: Head CT to my interpretation reveals no evidence of intracranial abnormality. Defer to radiology's overread Chest x-ray to my interpretation reveals possible right midlung infiltrate versus CHF with cardiomegaly. Otherwise defer to radiology. EKG: To my interpretation reveals normal sinus rhythm at 75 bpm. Left axis deviation, previous septal infarct. QTc is 428. No PVC, no PAC. No significant change from previous dated July 22, 2022 DISPOSITION: admit Past Med/Surg History Medical History Abnormal EKG Acute electrocardiogram changes Acute hyperkalemia Acute UTI Anemia Anxiety Arthritis Coronary artery disease Depression Depression with anxiety Diabetes mellitus Diabetic retinopathy Dyslipidemia Elevated troponin End-stage renal disease on hemodialysis Fatigue GERD without esophagitis Hallucinations Hernia, hiatal History of thrombophlebitis Hyperkalemia, diminished renal excretion Hypertension Hypothyroidism Insomnia Laceration of left lower extremity Macular puckering, bilateral Myoclonus Obstructive sleep apnea Panniculitis Paresthesias Polyarthritis Transaminitis Tubular adenoma of colon Type 2 diabetes mellitus with diabetic neuropathy Vitamin D deficiency Surgical History H/O: hysterectomy History of bladder surgery History of cataract surgery History of nasal septoplasty History of tonsillectomy S/P arteriovenous (AV) fistula creation S/P hysterectomy S/P repair of paraesophageal hernia S/P rotator cuff repair Family History Mother Leukemia Cerebral aneurysm Hypertension Anxiety Diabetes Cancer Heart disease Grandmother Hypertension Father Osteoarthritis COPD (chronic obstructive pulmonary disease) Diabetes Hearing loss Sister Diabetes Myocardial infarction COPD (chronic obstructive pulmonary disease) Hypertension Brother Myocardial infarction Diabetes Cancer Stomach cancer Other No family history of bleeding disorder Denies family history of Ovarian cancer Prostate cancer Breast cancer Colorectal cancer Stroke Asthma Social History Smoking Status: Never smoker Second Hand Exposure: No; Do You Dip or Chew Tobacco: No; Hx Alcohol Use: No Hx Substance Use: No Preferred Language: Nepalese Communication Ability: Effective Visual Impairment: No Limitations Hearing Ability: Normal Guest Services Agent Required: No Beliefs That Will Affect Care: None marital status: Current Living Situation: Spouse Current Living Situation Comment: Home w/spouse current occupational status: retired How many Children do You have: 1 Other Information That Helps Us Care for You: No Feels Safe at Home: Yes Safety Concerns: Feels Safe At This Time Dental Care, Regularly: No Physical Activity Frequency: 1-2 Times per Week Seatbelt Use: always Assistive Devices: Glasses and Oxygen - Continuous Allergies Allergies Allergy/AdvReac Type Severity Reaction Status Date / Time lisinopril AdvReac Intermediate cough Verified 08/28/22 10:51 Home Meds Home Medications Medication Instructions Recorded Confirmed acetaminophen 500 mg tablet 1,000 mg PO Q6H PRN Pain 11/07/19 08/28/22 (Tylenol Extra Strength) vit B complx, C-iron 8 mg-folic 1 tab PO QDL 02/27/20 08/28/22 acid 800 mcg-D3 1,000 unit-zinc tablet (ProRenal) calcium acetate 667 mg tablet 667 mg PO UD 12/17/20 08/28/22 bumetanide 2 mg tablet 4 mg PO BID 10/14/21 08/28/22 sodium zirconium cyclosilicate 5 5 g PO 4XWK 03/25/22 08/28/22 gram oral powder packet (Lokelma) buspirone 5 mg tablet 5 mg PO BID 07/31/22 08/28/22 Previous Rx's Medication Instructions Recorded lancets 33 gauge (OneTouch Delica #100 ea 11/27/20 Lancets) blood sugar diagnostic (OneTouch #300 ea 07/31/22 Verio test strips) blood-glucose meter (OneTouch #1 ea 07/31/22 Verio Meter) cholecalciferol (vitamin D3) 50 50 mcg PO DAILY #90 caps 07/31/22 mcg (2,000 unit) capsule levothyroxine 100 mcg tablet 100 mcg PO QPM #90 tabs 07/31/22 ondansetron 8 mg disintegrating 8 mg PO Q8H PRN Nausea #90 tabs 07/31/22 tablet pantoprazole 40 mg tablet,delayed 40 mg PO BID 90 days #180 tabs 07/31/22 release primidone 50 mg tablet 50 mg PO HS #10 tabs 07/31/22 venlafaxine 75 mg capsule,extended 75 mg PO DAILY #90 caps 07/31/22 release 24 hr carvedilol 12.5 mg tablet (Coreg) 12.5 mg PO BID #180 tabs 08/04/22 amlodipine 10 mg tablet 10 mg PO DAILY #90 tabs 08/17/22 hydralazine 50 mg tablet 50 mg PO TID #270 tabs 08/20/22 CPAP Supplies See Rx Instructions .Route 08/21/22 .COMPLEX #1 ea hydrocodone 5 mg-acetaminophen 300 1 tab PO BID PRN pain #40 tabs 08/28/22 mg tablet polyethylene glycol 3350 17 17 g PO DAILY #510 grams 08/28/22 gram/dose oral powder (Miralax) lactulose 10 gram/15 mL oral 15 ml PO DAILY PRN Constipation 09/03/22 solution #1,350 mL Oxygen Home #1 ea 09/04/22 gabapentin 300 mg capsule 300 mg PO 3XWK #48 caps 09/14/22 atorvastatin 20 mg tablet 20 mg PO HS #90 tabs 09/18/22 Results & Data (ED) Vital Signs Vital Signs - 24 hr 09/29/22 04:40 09/29/22 04:49 09/29/22 05:28 Pulse Rate 76 77 Pulse Rate [Left Finger] Respiratory Rate 18 Respiratory Depth Blood Pressure 187/91 H Blood Pressure [Left Arm] Blood Pressure Mean 123 Blood Pressure Mean [Left Arm] Pulse Oximetry 100 92 Oxygen Delivery Method Non-rebreather Nasal Cannula Oxygen Flow Rate 4 Sepsis Recent Fever Within 48 Hours No Sepsis New/Unexplained Change in Mental Status Yes Sepsis Action Taken by Nursing No Action Required 09/29/22 05:30 09/29/22 05:31 09/29/22 06:34 Pulse Rate 76 Pulse Rate [Left Finger] 75 78 Respiratory Rate 18 18 18 Respiratory Depth Normal Blood Pressure Blood Pressure [Left Arm] 189/143 H 197/87 H Blood Pressure Mean Blood Pressure Mean [Left Arm] 158 123 Pulse Oximetry 95 96 100 Oxygen Delivery Method Nasal Cannula Nasal Cannula Nasal Cannula Oxygen Flow Rate 4 4 4 Sepsis Recent Fever Within 48 Hours Sepsis New/Unexplained Change in Mental Status Sepsis Action Taken by Nursing 09/29/22 07:15 Pulse Rate Pulse Rate [Left Finger] 71 Respiratory Rate Respiratory Depth Blood Pressure Blood Pressure [Left Arm] 169/73 H Blood Pressure Mean Blood Pressure Mean [Left Arm] 105 Pulse Oximetry 100 Oxygen Delivery Method Nasal Cannula Oxygen Flow Rate 4 Sepsis Recent Fever Within 48 Hours Sepsis New/Unexplained Change in Mental Status Sepsis Action Taken by [facility] Medications Current Medication List: was personally reviewed by me Laboratory Data Attestation: I reviewed the patient's lab results. 09/29/22 05:04 09/29/22 05:04 Lab Results 09/29/22 09/29/22 09/29/22 Range/Units 05:04 05:04 05:04 WBC 15.29 H (4.8-10.8) K/ul RBC 2.48 L (4.20-5.40) M/uL Hgb 7.8 L (12.0-16.0) g/dl Hct 25.8 L (37.0-47.0) % MCV 104.0 H (80.0-100.0) fL MCH 31.5 (25.0-34.0) pg MCHC 30.2 L (32.0-36.0) g/dL RDW Std Deviation 58.3 H (36.4-46.3) fL RDW Coeff of Jared 15.2 H (11.5-14.5) % Plt Count 142 (130-400) K/uL MPV 10.1 (9.4-12.4) fL Immature Gran % (Auto) 0.7 % Neut % (Auto) 86.7 % Lymph % (Auto) 3.3 % [place] % (Auto) 8.3 % Eos % (Auto) 0.6 % Baso % (Auto) 0.4 % Neut # (Auto) 13.27 H (1.40-6.50) K/uL Lymph # (Auto) 0.50 L (1.2-3.4) K/uL [place] # (Auto) 1.27 H (0.11-0.59) K/uL Eos # (Auto) 0.09 (0-0.50) K/uL Baso # (Auto) 0.06 (0-0.2) K/uL Immature Gran # (Auto) 0.10 (0.01-0.20) K/uL Polychromasia 1+ Sodium 134 L (136-145) mmol/L Potassium 6.3 H* (3.5-5.1) mmol/L Chloride 96 L (98-107) mmol/L Carbon Dioxide 32 (21-32) mmol/L Anion Gap 6 (3-11) BUN 53 H (6-23) mg/dl Creatinine 6.18 H* (0.6-1.2) mg/dl Est Cr Clr Drug Dosing 9.0 ml/min Est GFR ( Amer) 7.0 ml/min Est GFR (Non-Af Amer) 6.0 ml/min BUN/Creatinine Ratio 8.6 L (10-20) Glucose 185 H (70-99(Fasting)) mg/dl Lactate (0.4-2.0) mmol/L Calcium 8.9 (8.6-10.3) mg/dl Magnesium 3.0 H (1.7-2.4) mg/dl Total Bilirubin 0.5 (0.2-1.0) mg/dl AST 18 (13-39) U/L ALT 8 (7-52) U/L Alkaline Phosphatase 131 H (34-104) U/L Troponin I High Sens 27.0 H (0-14) pg/ml Total Protein 6.9 (6.0-8.3) gm/dl Albumin 3.4 (3.4-5.0) gm/dl Globulin 3.5 (2.5-4.0) gm/dl Albumin/Globulin Ratio 1.0 (0.9-2) Procalcitonin 0.57 H (0-0.5) ng/ml Urine Color Urine Appearance Urine pH Ur Specific [place] Urine Protein Urine Glucose (UA) Urine Ketones Urine Blood Urine Nitrite Urine Bilirubin Urine Urobilinogen Ur Leukocyte Esterase Urine WBC (Auto) Urine RBC (Auto) U Hyaline Cast (Auto) U Epithel Cells (Auto) Urine Bacteria (Auto) Ur Renal Epithelial Cell Urine Crystals Calcium Oxalate Crystal Uric Acid Crystals Triple Phos Crystals Other Crystals Amorphous Sediment Granular Casts Waxy Casts RBC Casts WBC Casts Other Casts Urine Mucus Urine Other Urine Trichomonas Urine Yeast Urine Sperm Ur Oval Fat Bodies SARS-CoV-2, RNA, NAAT (NEGATIVE) Blood Type Antibody Screen 09/29/22 09/29/22 09/29/22 Range/Units 05:15 05:24 05:27 WBC (4.8-10.8) K/ul RBC (4.20-5.40) M/uL Hgb (12.0-16.0) g/dl Hct (37.0-47.0) % MCV (80.0-100.0) fL MCH (25.0-34.0) pg MCHC (32.0-36.0) g/dL RDW Std Deviation (36.4-46.3) fL RDW Coeff of Jared (11.5-14.5) % Plt Count (130-400) K/uL MPV (9.4-12.4) fL Immature Gran % (Auto) % Neut % (Auto) % Lymph % (Auto) % [place] % (Auto) % Eos % (Auto) % Baso % (Auto) % Neut # (Auto) (1.40-6.50) K/uL Lymph # (Auto) (1.2-3.4) K/uL [place] # (Auto) (0.11-0.59) K/uL Eos # (Auto) (0-0.50) K/uL Baso # (Auto) (0-0.2) K/uL Immature Gran # (Auto) (0.01-0.20) K/uL Polychromasia Sodium (136-145) mmol/L Potassium (3.5-5.1) mmol/L Chloride (98-107) mmol/L Carbon Dioxide (21-32) mmol/L Anion Gap (3-11) BUN (6-23) mg/dl Creatinine (0.6-1.2) mg/dl Est Cr Clr Drug Dosing ml/min Est GFR ( Amer) ml/min Est GFR (Non-Af Amer) ml/min BUN/Creatinine Ratio (10-20) Glucose (70-99(Fasting)) mg/dl Lactate 1.1 (0.4-2.0) mmol/L Calcium (8.6-10.3) mg/dl Magnesium (1.7-2.4) mg/dl Total Bilirubin (0.2-1.0) mg/dl AST (13-39) U/L ALT (7-52) U/L Alkaline Phosphatase (34-104) U/L Troponin I High Sens (0-14) pg/ml Total Protein (6.0-8.3) gm/dl Albumin (3.4-5.0) gm/dl Globulin (2.5-4.0) gm/dl Albumin/Globulin Ratio (0.9-2) Procalcitonin (0-0.5) ng/ml Urine Color Cancelled Urine Appearance Cancelled Urine pH Cancelled Ur Specific [place] Cancelled Urine Protein Cancelled Urine Glucose (UA) Cancelled Urine Ketones Cancelled Urine Blood Cancelled Urine Nitrite Cancelled Urine Bilirubin Cancelled Urine Urobilinogen Cancelled Ur Leukocyte Esterase Cancelled Urine WBC (Auto) Cancelled Urine RBC (Auto) Cancelled U Hyaline Cast (Auto) Cancelled U Epithel Cells (Auto) Cancelled Urine Bacteria (Auto) Cancelled Ur Renal Epithelial Cell Cancelled Urine Crystals Cancelled Calcium Oxalate Crystal Cancelled Uric Acid Crystals Cancelled Triple Phos Crystals Cancelled Other Crystals Cancelled Amorphous Sediment Cancelled Granular Casts Cancelled Waxy Casts Cancelled RBC Casts Cancelled WBC Casts Cancelled Other Casts Cancelled Urine Mucus Cancelled Urine Other Cancelled Urine Trichomonas Cancelled Urine Yeast Cancelled Urine Sperm Cancelled Ur Oval Fat Bodies Cancelled SARS-CoV-2, RNA, NAAT NEGATIVE (NEGATIVE) Blood Type Antibody Screen 09/29/22 Range/Units 06:27 WBC (4.8-10.8) K/ul RBC (4.20-5.40) M/uL Hgb (12.0-16.0) g/dl Hct (37.0-47.0) % MCV (80.0-100.0) fL MCH (25.0-34.0) pg MCHC (32.0-36.0) g/dL RDW Std Deviation (36.4-46.3) fL RDW Coeff of Jared (11.5-14.5) % Plt Count (130-400) K/uL MPV (9.4-12.4) fL Immature Gran % (Auto) % Neut % (Auto) % Lymph % (Auto) % [place] % (Auto) % Eos % (Auto) % Baso % (Auto) % Neut # (Auto) (1.40-6.50) K/uL Lymph # (Auto) (1.2-3.4) K/uL [place] # (Auto) (0.11-0.59) K/uL Eos # (Auto) (0-0.50) K/uL Baso # (Auto) (0-0.2) K/uL Immature Gran # (Auto) (0.01-0.20) K/uL Polychromasia Sodium (136-145) mmol/L Potassium (3.5-5.1) mmol/L Chloride (98-107) mmol/L Carbon Dioxide (21-32) mmol/L Anion Gap (3-11) BUN (6-23) mg/dl Creatinine (0.6-1.2) mg/dl Est Cr Clr Drug Dosing ml/min Est GFR ( Amer) ml/min Est GFR (Non-Af Amer) ml/min BUN/Creatinine Ratio (10-20) Glucose (70-99(Fasting)) mg/dl Lactate (0.4-2.0) mmol/L Calcium (8.6-10.3) mg/dl Magnesium (1.7-2.4) mg/dl Total Bilirubin (0.2-1.0) mg/dl AST (13-39) U/L ALT (7-52) U/L Alkaline Phosphatase (34-104) U/L Troponin I High Sens (0-14) pg/ml Total Protein (6.0-8.3) gm/dl Albumin (3.4-5.0) gm/dl Globulin (2.5-4.0) gm/dl Albumin/Globulin Ratio (0.9-2) Procalcitonin (0-0.5) ng/ml Urine Color Urine Appearance Urine pH Ur Specific [place] Urine Protein Urine Glucose (UA) Urine Ketones Urine Blood Urine Nitrite Urine Bilirubin Urine Urobilinogen Ur Leukocyte Esterase Urine WBC (Auto) Urine RBC (Auto) U Hyaline Cast (Auto) U Epithel Cells (Auto) Urine Bacteria (Auto) Ur Renal Epithelial Cell Urine Crystals Calcium Oxalate Crystal Uric Acid Crystals Triple Phos Crystals Other Crystals Amorphous Sediment Granular Casts Waxy Casts RBC Casts WBC Casts Other Casts Urine Mucus Urine Other Urine Trichomonas Urine Yeast Urine Sperm Ur Oval Fat Bodies SARS-CoV-2, RNA, NAAT (NEGATIVE) Blood Type O Negative Antibody Screen NEGATIVE Administered Medications Acetaminophen (Acetaminophen 500 Mg Tab) 1,000 mg PO Q6H PRN PRN Reason: Pain Stop: 10/29/22 09:48 Last Admin: 09/30/22 03:46 Dose: 1,000 mg Documented By: Admin: 09/29/22 21:24 Dose: 1,000 mg Documented By: SIRI Amlodipine Besylate (Amlodipine Besylate 5 Mg Tab) 10 mg PO DAILY ENRIQUETA Stop: 10/29/22 09:48 Last Admin: 09/29/22 16:00 Dose: 10 mg Documented By: WS Atorvastatin Calcium (Atorvastatin 20 Mg Tab) 20 mg PO HS ENRIQUETA Stop: 10/29/22 20:59 Last Admin: 09/29/22 21:03 Dose: 20 mg Documented By: SIRI Bumetanide (Bumetanide 1 Mg Tab) 4 mg PO BID ENRIQUETA Stop: 10/29/22 09:48 Last Admin: 09/29/22 21:03 Dose: 4 mg Documented By: Admin: 09/29/22 17:04 Dose: 4 mg Documented By: GOKUL Carvedilol (Carvedilol 12.5 Mg Tab) 12.5 mg PO BIDM [facility] Stop: 10/29/22 09:48 Last Admin: 09/29/22 17:13 Dose: Not Given Documented By: Admin: 09/29/22 15:58 Dose: 12.5 mg Documented By: GOKUL Heparin Sodium (Porcine) (Heparin Sod 5,000 Unit/0.5 Ml Vial) 5,000 units SQ Q12 ENRIQUETA Stop: 10/29/22 09:48 Last Admin: 09/29/22 21:02 Dose: 5,000 units Documented By: Admin: 09/29/22 15:59 Dose: 5,000 units Documented By: GOKUL Hydralazine HCl (Hydralazine Tab 50 Mg Tab) 50 mg PO TID ENRIQUETA Stop: 10/29/22 09:48 Last Admin: 09/29/22 21:03 Dose: 50 mg Documented By: Admin: 09/29/22 16:08 Dose: Not Given Documented By: Admin: 09/29/22 15:59 Dose: 50 mg Documented By: GOKUL Piperacillin Sod/Tazobactam (Sod 4.5 gm/ Dextrose) 120 mls @ 30 mls/hr IV Q12H [facility]; Protocol Stop: 10/06/22 14:29 Last Admin: 09/30/22 01:38 Dose: 30 mls/hr Documented By: Infusion: 09/29/22 20:54 Dose: 0 mls/hr Documented By: Admin: 09/29/22 16:40 Dose: 30 mls/hr Documented By: GOKUL Insulin Aspart (Insulin Aspart Per Unit Charge) 0 units SC ACHS ENRIQUETA Stop: 10/29/22 11:29 Last Admin: 09/29/22 21:23 Dose: 3 units Documented By: SIRI Co-signed By: APARNA Admin: 09/29/22 17:12 Dose: Not Given Documented By: Admin: 09/29/22 16:07 Dose: Not Given Documented By: GOKUL Levothyroxine Sodium (Levothyroxine Sodium 100 Mcg Tablet) 100 mcg PO QPM [facility] Stop: 10/29/22 20:59 Last Admin: 09/29/22 21:03 Dose: 100 mcg Documented By: SIRI Menthol (Cough Drop (Sugar Free) Tamie 24 Tamie/1 Box) 1 tamie BUCCAL UD PRN PRN Reason: Sore Throat Stop: 10/30/22 03:25 Last Admin: 09/30/22 03:46 Dose: 1 tamie Documented By: SIRI Multivitamins/Minerals (Cerovite Adv Formula Tab) 1 tab PO QDL [facility] Stop: 10/29/22 11:29 Last Admin: 09/29/22 15:58 Dose: 1 tab Documented By: GOKUL Pantoprazole Sodium (Pantoprazole 40 Mg Tab) 40 mg PO BID [facility] Stop: 10/29/22 09:48 Last Admin: 09/29/22 21:11 Dose: 40 mg Documented By: Admin: 09/29/22 15:58 Dose: 40 mg Documented By: GOKUL Polyethylene Glycol (Polyethylene (Miralax) 17 Gm Pack) 17 gm PO DAILY ENRIQUETA Stop: 10/29/22 09:48 Last Admin: 09/29/22 16:00 Dose: 17 gm Documented By: GOKUL Venlafaxine HCl (Venlafaxine Hcl Xr 75 Mg Capxr) 75 mg PO DAILY [facility] Stop: 10/29/22 09:48 Last Admin: 09/29/22 15:59 Dose: 75 mg Documented By: GOKUL Vitamin D (Cholecalciferol 1,000 Units 25 Mcg Tab) 2,000 units PO DAILY ENRIQUETA Stop: 10/29/22 10:29 Last Admin: 09/29/22 15:58 Dose: 2,000 units Documented By: GOKUL Discontinued Medications Epoetin Kaushal (Epoetin Kaushal 10,000 Units/Ml Vial) 10,000 units SQ ONE ONE Stop: 09/29/22 10:19 Last Admin: 09/29/22 11:47 Dose: 10,000 units Documented By: ANIVAL Hydralazine HCl (Hydralazine Hcl 20 Mg/Ml Vial) 10 mg IV NOW STA Stop: 09/29/22 05:59 Last Admin: 09/29/22 06:06 Dose: 10 mg Documented By: BOY Piperacillin Sod/Tazobactam Sod (Zosyn) 4.5 gm in 120 mls @ 240 mls/hr IV NOW ONE Stop: 09/29/22 06:41 Last Infusion: 09/29/22 06:59 Dose: 0 mls/hr Documented By: Admin: 09/29/22 06:27 Dose: 240 mls/hr Documented By: BOY Vancomycin HCl 2,000 mg/ (Sodium Chloride) 540 mls @ 200 mls/hr IV NOW ONE Stop: 09/29/22 13:41 Last Infusion: 09/29/22 19:22 Dose: 0 mls/hr Documented By: Admin: 09/29/22 16:07 Dose: 200 mls/hr Documented By: GOKUL Imaging Data Radiologist's Impression: Chest X-Ray 09/29/22 04:59 XR chest 1V portable HISTORY: 77 years-old Female weakness acute weakness COMPARISON: July 22, 2022 TECHNIQUE: AP view of the chest FINDINGS: Cardiac silhouette is enlarged. Prosthetic mitral valve. Pulmonary vascular congestion. Small pleural effusions with mild bibasilar and right midlung consolidation. Degenerative changes of the shoulders and spine. Surgical clips project over the upper abdomen. IMPRESSION: 1. Cardiomegaly with pulmonary vascular congestion. 2. Small pleural effusions with bibasilar and right midlung consolidation. Findings favor atelectasis. Pneumonia could however appear similarly. ACT 112: Negative or not required by law. The above report was generated using voice recognition software. It may contain grammatical, syntax or spelling errors. Electronically signed by: Josh Oro M.D. 09/29/2022 8:[address] 09/29/22 05:13 Exam(s): CT HEAD Without Contrast EXAM: CT Head Without Intravenous Contrast CLINICAL HISTORY: Reason for exam: AMS. TECHNIQUE: Axial computed tomography images of the head/brain without intravenous contrast. Automated exposure control was utilized for the study. A dose lowering technique was utilized adhering to the principles of ALARA. COMPARISON: CT Head dated 02/27/2020 FINDINGS: Limitations: Limited evaluation in the absence of reformatted images. Brain: No acute intracranial abnormality. Consider MRI if there is further concern. Areas of decreased attenuation in the deep cerebral white matter are consistent with small vessel ischemic/degenerative changes. The cerebral and cerebellar sulci are prominent consistent with brain atrophy. No hemorrhage. Ventricles: Unremarkable. No ventriculomegaly. Bones/joints: Unremarkable. No acute fracture. Soft tissues: Unremarkable. Vasculature: Atherosclerotic disease. Sinuses: Unremarkable as visualized. Mastoid air cells: Unremarkable as visualized. No mastoid effusion. Orbits: Bilateral lens replacements. IMPRESSION: 1. No acute intracranial abnormality. Consider MRI if there is further concern. 2. Small vessel ischemic/degenerative changes. 3. Cerebral and cerebellar atrophy. Electronically signed by: Miguel Singletary MD 09/29/22 06:52 AM Discharge Plan Visit Data Chief Complaint: Unresponsive Stated Complaint: UNRESPONSIVE ED Provider: Alisson Hauser Discharge Problem: AMS (altered mental status), End-stage renal disease on hemodialysis, CHF (congestive heart failure) Patient Disposition: Admitted As Inpatient Discharge Instructions Interventions: ED Discharge Assessment Last Done: 09/29/22 09:19
[2022-09-29 05:41] LABS: Albumin Level 3.4 gm/dl (3.4-5.0); BUN Creatinine Ratio 8.6 (10-20); Bilirubin,Total 0.5 mg/dl (0.2-1.0); Calcium 8.9 mg/dl (8.6-10.3); Globulin 3.5 gm/dl (2.5-4.0); Potassium 6.3 mmol/L (3.5-5.1); Total Protein 6.9 gm/dl (6.0-8.3)
[2022-09-29] MEDS ORDERED: hydrALAZINE HCL 20 MG/ML VIAL IV STA (05:58)
[2022-09-29 06:09] LABS: Basophils # (auto) 0.06 K/uL (0-0.2); Basophils % (auto) 0.4 %; Eosinophils # (auto) 0.09 K/uL (0-0.50); Eosinophils % (auto) 0.6 %; Hematocrit (blood only) 25.8 % (37.0-47.0); Hemoglobin 7.8 g/dl (12.0-16.0); Immature Granulocytes % (auto) 0.7 %; Lymphocytes % (auto) 3.3 %; Mean Corpuscular Hemoglobin 31.5 pg (25.0-34.0); Mean Corpuscular Hgb Conc 30.2 g/dL (32.0-36.0); Mean Platelet Volume 10.1 fL (9.4-12.4); Monocytes # (auto) 1.27 K/uL (0.11-0.59); Monocytes % (auto) 8.3 %; Neutrophils # (auto) 13.27 K/uL (1.40-6.50); Neutrophils % (auto) 86.7 %; Platelet Count 142 K/uL (130-400); Polychromasia 1+; RDW Coefficient of Variation 15.2 % (11.5-14.5); RDW Standard Deviation 58.3 fL (36.4-46.3); Red Blood Count 2.48 M/uL (4.20-5.40); White Blood Count 15.29 K/ul (4.8-10.8)
[2022-09-29] MEDS ORDERED: PIPERACILLIN/TAZOBACTAM 4.5 GM/120 ML BAG IV ONE (06:12)
--- NOTE | 2022-09-29 06:54 | CT Scan Report ---
Exam(s): CT HEAD Without Contrast EXAM: CT Head Without Intravenous Contrast CLINICAL HISTORY: Reason for exam: AMS. TECHNIQUE: Axial computed tomography images of the head/brain without intravenous contrast. Automated exposure control was utilized for the study. A dose lowering technique was utilized adhering to the principles of ALARA. COMPARISON: CT Head dated 02/27/2020 FINDINGS: Limitations: Limited evaluation in the absence of reformatted images. Brain: No acute intracranial abnormality. Consider MRI if there is further concern. Areas of decreased attenuation in the deep cerebral white matter are consistent with small vessel ischemic/degenerative changes. The cerebral and cerebellar sulci are prominent consistent with brain atrophy. No hemorrhage. Ventricles: Unremarkable. No ventriculomegaly. Bones/joints: Unremarkable. No acute fracture. Soft tissues: Unremarkable. Vasculature: Atherosclerotic disease. Sinuses: Unremarkable as visualized. Mastoid air cells: Unremarkable as visualized. No mastoid effusion. Orbits: Bilateral lens replacements. IMPRESSION: 1. No acute intracranial abnormality. Consider MRI if there is further concern. 2. Small vessel ischemic/degenerative changes. 3. Cerebral and cerebellar atrophy. Electronically signed by: Miguel Singletary MD 09/29/22 06:52 AM
--- NOTE | 2022-09-29 07:48 | History & Physical Report ---
Date of Service September 29, 2022 Assessment & Plan (1) Metabolic encephalopathy: Plan: Acute unstable high risk patient presents with acute metabolic encephalopathy with also concern for toxic encephalopathy. Patient has a right lower lobe infiltrate and likely has gram- negative or aspiration pneumonia will be treated with Zosyn therapy. Last hospitalization in July she had hallucinations which were felt to be associate with Ativan and tramadol Blood and urine cultures are pending in the past she has had urinary tract infections patient had Belle glabrata in July in her urine in May and alpha strep Discussion of POLST form and discontinuation of life-sustaining treatment undertaken with family (2) End-stage renal disease on hemodialysis: Plan: Chronic typically stable when participating in treatment. End-stage renal disease typically on dialysis. She does still make urine and typically also takes Bumex 4 mg twice daily. Nephrology be consulted as she missed her dialysis session today She typically is on potassium lowering agent a few times a week remains on calcium acetate vitamin D3 (3) Diabetes mellitus: Plan: Patient has a history of diabetes which is diet controlled last hemoglobin A1c was 5.7 her glucose is slightly elevated on presentation therefore this is chronic unclear if controlled will evaluate if needing sliding scale insulin during his hospital stay (4) Coronary artery disease: Plan: Chronic and stable antihypertensive control with amlodipine hydralazine carvedilol, secondary risk prevention with atorvastatin, may be difficult as patient has not been awake enough to have oral intake (5) Hypothyroidism: Plan: Chronic and stable maintain Synthroid therapy last TSH was checked in July and was replete (6) Depression with anxiety: Plan: Chronic and stable although unable to assess due to mental status changes on venlafaxine likely gabapentin also helps her mood (7) Obstructive sleep apnea: History of Present Illness Primary Care Provider: Julito Burt MD 77-year-old female is dialysis dependent cannot be awoken for typical dialysis session this morning by her she became slightly awake did not recognize her family about her reportedly her home oxygen saturations were in the 70s that she typically wears 3 L she was wearing oxygen with these low saturations. Upon presentation to the emergency department on nonrebreather she was 100%. The past she had encephalopathy associate with a UTI but this time it looks like she has a right lower lobe infiltrate on chest x-ray. Patient had cultures obtained and was given Zosyn in the emergency department patient also takes medication such as BuSpar and hydrocodone at home which could be altering her mental status. In the emergency department she had noncontrasted CT which was unremarkable for acute injury Situation arises where family states patient has a POLST form and wants to begin to refuse life-sustaining treatments however patient was sent to dialysis. When visiting the patient in dialysis she was not responsive answer questions. Her was in the room and although tearful said he wishes to support his 's decisions. Palliative care consult was undertaken at this time Allergies Allergy/AdvReac Type Severity Reaction Status Date / Time lisinopril AdvReac Intermediate cough Verified 08/28/22 10:51 Home Medications Medication Instructions Recorded Confirmed Type acetaminophen 500 mg tablet 1,000 mg PO Q6H PRN Pain 11/07/19 08/28/22 History (Tylenol Extra Strength) vit B complx, C-iron 8 mg-folic 1 tab PO QDL 02/27/20 08/28/22 History acid 800 mcg-D3 1,000 unit-zinc tablet (ProRenal) lancets 33 gauge (OneTouch Delica #100 ea 11/27/20 08/28/22 Rx Lancets) calcium acetate 667 mg tablet 667 mg PO UD 12/17/20 08/28/22 History bumetanide 2 mg tablet 4 mg PO BID 10/14/21 08/28/22 History sodium zirconium cyclosilicate 5 5 g PO 4XWK 03/25/22 08/28/22 History gram oral powder packet (Lokelma) blood sugar diagnostic (OneTouch #300 ea 07/31/22 08/28/22 Rx Verio test strips) blood-glucose meter (OneTouch #1 ea 07/31/22 08/28/22 Rx Verio Meter) buspirone 5 mg tablet 5 mg PO BID 07/31/22 08/28/22 History cholecalciferol (vitamin D3) 50 50 mcg PO DAILY #90 caps 07/31/22 08/28/22 Rx mcg (2,000 unit) capsule levothyroxine 100 mcg tablet 100 mcg PO QPM #90 tabs 07/31/22 08/28/22 Rx ondansetron 8 mg disintegrating 8 mg PO Q8H PRN Nausea #90 tabs 07/31/22 08/28/22 Rx tablet pantoprazole 40 mg tablet,delayed 40 mg PO BID 90 days #180 tabs 07/31/22 08/28/22 Rx release primidone 50 mg tablet 50 mg PO HS #10 tabs 07/31/22 08/28/22 Rx venlafaxine 75 mg capsule,extended 75 mg PO DAILY #90 caps 07/31/22 08/28/22 Rx release 24 hr carvedilol 12.5 mg tablet (Coreg) 12.5 mg PO BID #180 tabs 08/04/22 08/28/22 Rx amlodipine 10 mg tablet 10 mg PO DAILY #90 tabs 08/17/22 08/28/22 Rx hydralazine 50 mg tablet 50 mg PO TID #270 tabs 08/20/22 08/28/22 Rx CPAP Supplies See Rx Instructions .Route 08/21/22 08/28/22 Rx .COMPLEX #1 ea hydrocodone 5 mg-acetaminophen 300 1 tab PO BID PRN pain #40 tabs 08/28/22 08/28/22 Rx mg tablet polyethylene glycol 3350 17 17 g PO DAILY #510 grams 08/28/22 08/28/22 Rx gram/dose oral powder (Miralax) lactulose 10 gram/15 mL oral 15 ml PO DAILY PRN Constipation 09/03/22 Rx solution #1,350 mL Oxygen Home #1 ea 09/04/22 09/04/22 Rx gabapentin 300 mg capsule 300 mg PO 3XWK #48 caps 09/14/22 Rx atorvastatin 20 mg tablet 20 mg PO HS #90 tabs 09/18/22 Rx Past Med/Surg History Medical History Abnormal EKG Acute electrocardiogram changes Acute hyperkalemia Acute UTI Anemia Anxiety Arthritis Coronary artery disease Depression Depression with anxiety Diabetes mellitus Diabetic retinopathy Dyslipidemia Elevated troponin End-stage renal disease on hemodialysis Fatigue GERD without esophagitis Hallucinations Hernia, hiatal History of thrombophlebitis Hyperkalemia, diminished renal excretion Hypertension Hypothyroidism Insomnia Laceration of left lower extremity Macular puckering, bilateral Myoclonus Obstructive sleep apnea Panniculitis Paresthesias Polyarthritis Transaminitis Tubular adenoma of colon Type 2 diabetes mellitus with diabetic neuropathy Vitamin D deficiency Surgical History H/O: hysterectomy History of bladder surgery History of cataract surgery History of nasal septoplasty History of tonsillectomy S/P arteriovenous (AV) fistula creation S/P hysterectomy S/P repair of paraesophageal hernia S/P rotator cuff repair Family History Mother Leukemia Cerebral aneurysm Hypertension Anxiety Diabetes Cancer Heart disease Grandmother Hypertension Father Osteoarthritis COPD (chronic obstructive pulmonary disease) Diabetes Hearing loss Sister Diabetes Myocardial infarction COPD (chronic obstructive pulmonary disease) Hypertension Brother Myocardial infarction Diabetes Cancer Stomach cancer Other No family history of bleeding disorder Denies family history of Ovarian cancer Prostate cancer Breast cancer Colorectal cancer Stroke Asthma Social History Smoking Status: Never smoker Second Hand Exposure: No; Do You Dip or Chew Tobacco: No; Hx Alcohol Use: No Hx Substance Use: No Preferred Language: Jordanian Communication Ability: Effective Visual Impairment: No Limitations Hearing Ability: Normal Site Damage Prevention Technician Required: No Beliefs That Will Affect Care: None marital status: Current Living Situation: Spouse Current Living Situation Comment: Home w/spouse current occupational status: retired How many Children do You have: 1 Other Information That Helps Us Care for You: No Feels Safe at Home: Yes Safety Concerns: Feels Safe At This Time Dental Care, Regularly: No Physical Activity Frequency: 1-2 Times per Week Seatbelt Use: always Assistive Devices: Glasses and Oxygen - Continuous Physical Exam Physical Exam: Patient is only able to raise her eyebrows to stimulation she is in minor discomfort to moving cardiac exam is regular with a systolic murmur lungs are diminished at the bases she is currently on dialysis her abdomen is NABS soft nontender extremities are with chronic stasis changes and trace edema Results & Data Results & Data Vital Signs (Past 12 Hours) Vital Signs Pulse Pulse Resp BP BP Pulse Ox O2 Del Method 09/29/22 07:15 71 169/73 H 100 Nasal Cannula 09/29/22 06:34 78 18 197/87 H 100 Nasal Cannula 09/29/22 05:31 76 18 96 Nasal Cannula 09/29/22 05:30 75 18 189/143 H 95 Nasal Cannula 09/29/22 05:28 92 Nasal Cannula 09/29/22 04:49 77 09/29/22 04:40 76 18 187/91 H 100 Non-rebreather O2 Flow Rate 09/29/22 07:15 4 09/29/22 06:34 4 09/29/22 05:31 4 09/29/22 05:30 4 09/29/22 05:28 4 09/29/22 04:49 09/29/22 04:[address] 09/29/22 05:13 Exam(s): CT HEAD Without Contrast EXAM: CT Head Without Intravenous Contrast CLINICAL HISTORY: Reason for exam: AMS. TECHNIQUE: Axial computed tomography images of the head/brain without intravenous contrast. Automated exposure control was utilized for the study. A dose lowering technique was utilized adhering to the principles of ALARA. COMPARISON: CT Head dated 02/27/2020 FINDINGS: Limitations: Limited evaluation in the absence of reformatted images. Brain: No acute intracranial abnormality. Consider MRI if there is further concern. Areas of decreased attenuation in the deep cerebral white matter are consistent with small vessel ischemic/degenerative changes. The cerebral and cerebellar sulci are prominent consistent with brain atrophy. No hemorrhage. Ventricles: Unremarkable. No ventriculomegaly. Bones/joints: Unremarkable. No acute fracture. Soft tissues: Unremarkable. Vasculature: Atherosclerotic disease. Sinuses: Unremarkable as visualized. Mastoid air cells: Unremarkable as visualized. No mastoid effusion. Orbits: Bilateral lens replacements. IMPRESSION: 1. No acute intracranial abnormality. Consider MRI if there is further concern. 2. Small vessel ischemic/degenerative changes. 3. Cerebral and cerebellar atrophy. Electronically signed by: Miguel Singletary MD 09/29/22 06:52 AM Code Status & VTE Plan VTE Prophylaxis Plan VTE Prophylaxis will be ordered: Yes PG Care Time/CCT Total # of Minutes Spent Total Time Spent with Patient: Total time spent is greater than 50% in coordination of care (as documented) at patient's floor/unit and/or counseling patient: Coding Level of Care Code 56459 INT INP/OBS CARE 3/75MIN Diagnoses Metabolic encephalopathy G93.41 End-stage renal disease on hemodialysis N18.6; Z99.2 Diabetes mellitus E11.22; N18.6; Z79.4; Z99.2 Chronic kidney disease stage: on chronic dialysis Diabetes mellitus complication detail: with chronic kidney disease Diabetes mellitus complication status: with kidney complications Diabetes mellitus custodial insulin use: with perfume and toilet water maker use Diabetes mellitus type: type 2 Coronary artery disease I25.10 Associated angina: without angina Coronary Disease-Associated Artery/Lesion type: [place] artery [place] vs. transplanted heart: [place] heart Hypothyroidism E03.9 Hypothyroidism type: unspecified Depression with anxiety F41.8 Obstructive sleep apnea G47.33 (3) Diabetes mellitus Chronic kidney disease stage: on chronic dialysis Diabetes mellitus complication detail: with chronic kidney disease Diabetes mellitus complication status: with kidney complications Diabetes mellitus perfume and toilet water maker insulin use: with perfume and toilet water maker use Diabetes mellitus type: type 2 Qualified Code(s): E11.22 - Type 2 diabetes mellitus with diabetic chronic kidney disease; N18.6 - End stage renal disease; Z79.4 - longterm (current) use of insulin; Z99.2 - Dependence on renal dialysis (4) Coronary artery disease Associated angina: without angina Coronary Disease-Associated Artery/Lesion type: [place] artery [place] vs. transplanted heart: [place] heart Qualified Code(s): I25.10 - Atherosclerotic heart disease of [place] coronary artery without angina pectoris (5) Hypothyroidism Hypothyroidism type: unspecified Qualified Code(s): E03.9 - Hypothyroidism, unspecified
--- NOTE | 2022-09-29 08:53 | XRay Report ---
XR chest 1V portable HISTORY: 77 years-old Female weakness acute weakness COMPARISON: July 22, 2022 TECHNIQUE: AP view of the chest FINDINGS: Cardiac silhouette is enlarged. Prosthetic mitral valve. Pulmonary vascular congestion. Small pleural effusions with mild bibasilar and right midlung consolidation. Degenerative changes of the shoulders and spine. Surgical clips project over the upper abdomen. IMPRESSION: 1. Cardiomegaly with pulmonary vascular congestion. 2. Small pleural effusions with bibasilar and right midlung consolidation. Findings favor atelectasis . Pneumonia could however appear similarly. ACT 112: Negative or not required by law. The above report was generated using voice recognition software. It may contain grammatical, syntax o r spelling errors. Electronically signed by: Josh Oro M.D. 09/29/2022 8:37 AM
[2022-09-29] MEDS ORDERED: GLUCOSE 40% GEL 15 GM TUBE PO PRN (09:49)
[2022-09-29] MEDS ORDERED: GLUCAGON FOR INJ 1 MG VIAL SQ PRN (09:49)
[2022-09-29] MEDS ORDERED: ONDANSETRON INJ 2 MG/ML 2 ML VIAL IV PRN (09:49)
[2022-09-29] MEDS ORDERED: CARBOHYDRATES FOR HYPOGLYCEMIA PO PRN (09:49)
[2022-09-29] MEDS ORDERED: GLUCOSE 10 TAB/TUBE PO PRN (09:49)
[2022-09-29] MEDS ORDERED: VANCOMYCIN CONSULT ACTIVE PRN (09:49)
[2022-09-29] MEDS ORDERED: DEXTROSE 50% 50 ML SYRINGE IV PRN (09:49)
--- NOTE | 2022-09-29 10:00 | Nephrology Consultation ---
Date of Consultation September 29, 2022 Assessment & Plan (1) End-stage renal disease on hemodialysis: * Will provide HD today according to outpatient orders * HD TTS [facility]: 4.75hr, 2K 2Ca, Na 137, HCO3 35, F-180NR, Qb400, EDW 90 kg (2) CHF (congestive heart failure): * Patient is 15 kg above EDW (90 kg) * Will attempt 4 L UF with HD today * Recheck CXR in am * 04/21 Echocardiogram - LVEF 55-60%, mild LVH, mild MR * 05/21 Cardiac cath - no obstructive lesions (3) Hyperkalemia: * Primary service has ordered Lokelma 10 mg po TID * Will dialyze today using 2K bath * PRP in am (4) Leukocytosis: * Await blood and urine culture results (5) Confusion: * Recommend stopping any sedating medications including Gabapentin and Hydrocodone History of Present Illness Reason for Consultation: ESRD on HD Attending Physician: Savage Dial MD History of Present Illness Mrs. Patrick is a 77 year old white female who is seen at the request of the [facility] to provide inpatient HD. Medical records in the EMR were reviewed today and are summarized as follows: Mrs. Patrick has ESRD due to DKD. She has been on HD at [facility] since 2016 (TTS 4.75 hr 2K 2Ca 1Mg F-180NR EDW 90 kg). Her medical history is significant for AODM, HTN, ASCVD, hypothyroidism, GERD, depression, RLS, TASH and large hiatal hernia with chronic abdominal/chest discomfort. Mrs. Patrick was brought to the EMD this am for evaluation of lethargy. Head CT was negative for acute abnormality, CXR revealed mild CHF with small bibasilar effusions. RA SaO2 was in 70's. SBP 160's. WBC# 15K, Hgb 7.8, K 6.3. ECG was negative for QRS prolongation or peaked T-waves. Patient was noted to be taking Gabapentin and Hydrocodone at home. Allergies Allergy/AdvReac Type Severity Reaction Status Date / Time lisinopril AdvReac Intermediate cough Verified 08/28/22 10:51 Home Medications Medication Instructions Recorded Confirmed Type acetaminophen 500 mg tablet 1,000 mg PO Q6H PRN Pain 11/07/19 08/28/22 History (Tylenol Extra Strength) vit B complx, C-iron 8 mg-folic 1 tab PO QDL 02/27/20 08/28/22 History acid 800 mcg-D3 1,000 unit-zinc tablet (ProRenal) lancets 33 gauge (OneTouch Delica #100 ea 11/27/20 08/28/22 Rx Lancets) calcium acetate 667 mg tablet 667 mg PO UD 12/17/20 08/28/22 History bumetanide 2 mg tablet 4 mg PO BID 10/14/21 08/28/22 History sodium zirconium cyclosilicate 5 5 g PO 4XWK 03/25/22 08/28/22 History gram oral powder packet (Lokelma) blood sugar diagnostic (OneTouch #300 ea 07/31/22 08/28/22 Rx Verio test strips) blood-glucose meter (OneTouch #1 ea 07/31/22 08/28/22 Rx Verio Meter) buspirone 5 mg tablet 5 mg PO BID 07/31/22 08/28/22 History cholecalciferol (vitamin D3) 50 50 mcg PO DAILY #90 caps 07/31/22 08/28/22 Rx mcg (2,000 unit) capsule levothyroxine 100 mcg tablet 100 mcg PO QPM #90 tabs 07/31/22 08/28/22 Rx ondansetron 8 mg disintegrating 8 mg PO Q8H PRN Nausea #90 tabs 07/31/22 08/28/22 Rx tablet pantoprazole 40 mg tablet,delayed 40 mg PO BID 90 days #180 tabs 07/31/22 08/28/22 Rx release primidone 50 mg tablet 50 mg PO HS #10 tabs 07/31/22 08/28/22 Rx venlafaxine 75 mg capsule,extended 75 mg PO DAILY #90 caps 07/31/22 08/28/22 Rx release 24 hr carvedilol 12.5 mg tablet (Coreg) 12.5 mg PO BID #180 tabs 08/04/22 08/28/22 Rx amlodipine 10 mg tablet 10 mg PO DAILY #90 tabs 08/17/22 08/28/22 Rx hydralazine 50 mg tablet 50 mg PO TID #270 tabs 08/20/22 08/28/22 Rx CPAP Supplies See Rx Instructions .Route 08/21/22 08/28/22 Rx .COMPLEX #1 ea hydrocodone 5 mg-acetaminophen 300 1 tab PO BID PRN pain #40 tabs 08/28/22 08/28/22 Rx mg tablet polyethylene glycol 3350 17 17 g PO DAILY #510 grams 08/28/22 08/28/22 Rx gram/dose oral powder (Miralax) lactulose 10 gram/15 mL oral 15 ml PO DAILY PRN Constipation 09/03/22 Rx solution #1,350 mL Oxygen Home #1 ea 09/04/22 09/04/22 Rx gabapentin 300 mg capsule 300 mg PO 3XWK #48 caps 09/14/22 Rx atorvastatin 20 mg tablet 20 mg PO HS #90 tabs 09/18/22 Rx Patient History Medical History Abnormal EKG Acute electrocardiogram changes Acute hyperkalemia Acute UTI Anemia Anxiety Arthritis Coronary artery disease Depression Depression with anxiety Diabetes mellitus Diabetic retinopathy Dyslipidemia Elevated troponin End-stage renal disease on hemodialysis Fatigue GERD without esophagitis Hallucinations Hernia, hiatal History of thrombophlebitis Hyperkalemia, diminished renal excretion Hypertension Hypothyroidism Insomnia Laceration of left lower extremity Macular puckering, bilateral Myoclonus Obstructive sleep apnea Panniculitis Paresthesias Polyarthritis Transaminitis Tubular adenoma of colon Type 2 diabetes mellitus with diabetic neuropathy Vitamin D deficiency Surgical History H/O: hysterectomy History of bladder surgery History of cataract surgery History of nasal septoplasty History of tonsillectomy S/P arteriovenous (AV) fistula creation S/P hysterectomy S/P repair of paraesophageal hernia S/P rotator cuff repair Family History Mother Leukemia Cerebral aneurysm Hypertension Anxiety Diabetes Cancer Heart disease Grandmother Hypertension Father Osteoarthritis COPD (chronic obstructive pulmonary disease) Diabetes Hearing loss Sister Diabetes Myocardial infarction COPD (chronic obstructive pulmonary disease) Hypertension Brother Myocardial infarction Diabetes Cancer Stomach cancer Other No family history of bleeding disorder Denies family history of Ovarian cancer Prostate cancer Breast cancer Colorectal cancer Stroke Asthma Social History Smoking Status: Never smoker Second Hand Exposure: No; Do You Dip or Chew Tobacco: No; Hx Alcohol Use: No Hx Substance Use: No Preferred Language: Lao Communication Ability: Effective Visual Impairment: No Limitations Hearing Ability: Normal Special Events Planner Required: No Beliefs That Will Affect Care: None marital status: Current Living Situation: Spouse Current Living Situation Comment: Home w/spouse current occupational status: retired How many Children do You have: 1 Feels Safe at Home: Yes Dental Care, Regularly: No Physical Activity Frequency: 1-2 Times per Week Seatbelt Use: always Assistive Devices: Oxygen - Continuous, Walker and Wheelchair Review of Systems Constitutional: no fever Eyes: no problem reported Ear, Nose, Mouth, Throat: no problem reported Respiratory: + dyspnea; no cough and no sputum production Cardiovascular: no chest pain Gastrointestinal: no vomiting and no diarrhea/loose stools Physical Exam Constitutional: + ill appearing and + overweight Eyes: PERRL, conjunctivae normal, anicteric sclerae ENMT: external ear and nose normal, oropharynx normal Neck: trachea midline, no thyromegaly Respiratory: Auscultation: + rales (bilaterally) Cardiovascular: Rate/Rhythm: regular rate and regular rhythm Heart Sounds: no cardiac rub Extremities: + edema (2+ pretibial pitting edema) R RC AVF + bruit Gastrointestinal (Abdomen): normal bowel sounds, soft, nontender, no hepatosplenomegaly Neurologic: awake; not confused Psychiatric: Affect: + anxious affect Results & Data Vital Signs (Past 12 Hours) Vital Signs Pulse Pulse Resp BP BP Pulse Ox O2 Del Method 09/29/22 09:18 64 166/59 H 100 Nasal Cannula 09/29/22 08:11 67 157/66 H 100 Nasal Cannula 09/29/22 07:15 71 169/73 H 100 Nasal Cannula 09/29/22 06:34 78 18 197/87 H 100 Nasal Cannula 09/29/22 05:31 76 18 96 Nasal Cannula 09/29/22 05:30 75 18 189/143 H 95 Nasal Cannula 09/29/22 05:28 92 Nasal Cannula 09/29/22 04:49 77 09/29/22 04:40 76 18 187/91 H 100 Non-rebreather O2 Flow Rate 09/29/22 09:18 4 09/29/22 08:11 4 09/29/22 07:15 4 09/29/22 06:34 4 09/29/22 05:31 4 05/02/23 05:30 4 09/29/22 05:28 4 09/29/22 04:49 09/29/22 04:40 Laboratory Results Laboratory Tests 09/29/22 09/29/22 05:04 05:04 WBC 15.29 H Hgb 7.8 L Hct 25.8 L Plt Count 142 Sodium 134 L Potassium 6.3 H* Chloride 96 L Carbon Dioxide 32 BUN 53 H Creatinine 6.18 H* Glucose 185 H Magnesium 3.0 H Albumin 3.4 Diagnostic Findings 09/29/22 CXR: 1. Cardiomegaly with pulmonary vascular congestion. 2. Small pleural effusions with bibasilar and right midlung consolidation. Findings favor atelectasis. Pneumonia could however appear similarly. 09/29/[address]: No acute abnormality PG Care Time/CCT Total # of Minutes Spent Total Time Spent with Patient: Total time spent is greater than 50% in coordination of care (as documented) at patient's floor/unit and/or counseling patient: Coding Level of Care Code 69634 IN/OBS CONSULT LVL 5,80M Diagnoses End-stage renal disease on hemodialysis N18.6; Z99.2 CHF (congestive heart failure) I50.9 Heart failure chronicity: acute on chronic Heart failure type: unspecified Hyperkalemia E87.5 Leukocytosis D72.829 Confusion R41.0 (2) CHF (congestive heart failure) Heart failure chronicity: acute on chronic Heart failure type: unspecified Qualified Code(s): I50.9 - Heart failure, unspecified
[2022-09-29] MEDS ORDERED: SODIUM CHLORIDE 0.9% 1000ML 1,000 ML IV PRN (10:14)
[2022-09-29] MEDS ORDERED: CALCIUM ACETATE 667 MG CAP/TAB PO SCH (10:15)
[2022-09-29] MEDS ORDERED: EPOETIN ALFA 10,000 UNITS/ML VIAL SQ ONE (10:18)
[2022-09-29] MEDS ORDERED: VANCOMYCIN HCL 2,000 MG in SODIUM CHLORIDE 0.9% 500 ML IV ONE (11:00)
--- NOTE | 2022-09-29 11:00 | Pharmacy Report ---
Pharmacy PK ABX Note - Date of Service September 29, 2022 - Assessment and Plan Assessment 77 year old F receiving IV Vancomycin + Zosyn for treatment of RLL infiltrate, likely gram negative or aspiration pneumonia, MRSA nasal swab pending. Patient presented with acute metabolic encephalopathy with also concern for toxic encephalopathy. CKD on HD. Blood and urine cultures pending. Procal pending. WBC 15. Day # 1 of antimicrobial therapy. Plan Vancomycin * Loading dose: 2000 mg (20mg/kg) IV x 1 * Random level ordered for: 09/29/22 for empiric dosing in HD patient Zosyn 4.5g IV x1 over 30 min then 4.5g IV q12h extended interval infusion for CrCl < 20ml/min Pharmacy will continue to follow and will adjust dose/frequency as necessary. Thank you.
[2022-09-29] MEDS: carvediloL 12.5 MG TAB PO SCH ×2 (15:58→17:13)
[2022-09-29] MEDS: PANTOprazole 40 MG TAB PO SCH ×2 (15:58→21:11)
[2022-09-29] MEDS: CHOLECALCIFEROL 1,000 UNITS 25 MCG TAB PO SCH (15:58)
[2022-09-29] MEDS: CEROVITE ADV FORMULA TAB PO SCH (15:58)
[2022-09-29] MEDS: hydrALAZINE TAB 50 MG TAB PO SCH ×3 (15:59→21:03)
[2022-09-29] MEDS: VENLAFAXINE HCL XR 75 MG CAPXR PO SCH (15:59)
[2022-09-29] MEDS: HEPARIN SOD 5,000 UNIT/0.5 ML VIAL SQ SCH ×2 (15:59→21:02)
[2022-09-29] MEDS: amLODIPine BESYLATE 5 MG TAB PO SCH (16:00)
[2022-09-29] MEDS: POLYETHYLENE (MIRALAX) 17 GM PACK PO SCH (16:00)
[2022-09-29] MEDS: INSULIN ASPART PER UNIT CHARGE SC SCH ×3 (16:07→21:23)
[2022-09-29] MEDS: PIPERACILLIN/TAZOBACTAM 4.5 GM in DEXTROSE 5% 100 ML IV SCH (16:40)
[2022-09-29] MEDS ORDERED: GABAPENTIN 300 MG CAP PO SCH (17:00)
[2022-09-29] MEDS: BUMETANIDE 1 MG TAB PO SCH ×2 (17:04→21:03)
--- NOTE | 2022-09-29 20:01 | Electrocardiogram Report ---
Test Reason : Blood Pressure : / mmHG Vent. Rate : 075 BPM Atrial Rate : 075 BPM P-R Int : 208 ms QRS Dur : 100 ms QT Int : 384 ms P-R-T Axes : 022 -62 056 degrees QTc Int : 428 ms Normal sinus rhythm Left axis deviation Septal infarct (cited on or before 29-SEP-2022) Abnormal ECG When compared with ECG of 22-JUL-2022 11:39, No significant change was found Confirmed by Saad Antonio ([id number]) on 09/29/2022 8:01:21 PM Referred By: REFERRED SELF Confirmed By:Saad Antonio
[2022-09-29] MEDS ORDERED: PRIMIDONE 50 MG TAB PO SCH (21:00)
[2022-09-29] MEDS: ATORVASTATIN 20 MG TAB PO SCH (21:03)
[2022-09-29] MEDS: LEVOTHYROXINE SODIUM 100 MCG TABLET PO SCH (21:03)
[2022-09-29] MEDS: ACETAMINOPHEN 500 MG TAB PO PRN (21:24)
[2022-09-30] MEDS: PIPERACILLIN/TAZOBACTAM 4.5 GM in DEXTROSE 5% 100 ML IV SCH ×2 (01:38→13:30)
[2022-09-30] MEDS ORDERED: COUGH DROP (SUGAR FREE) LOZ 24 LOZ/1 BOX BUCCAL PRN (03:26)
[2022-09-30] MEDS: ACETAMINOPHEN 500 MG TAB PO PRN ×2 (03:46→19:53)
[2022-09-30 05:59] LABS: Mean Corpuscular Hemoglobin 31.8 pg (25.0-34.0); Mean Corpuscular Hgb Conc 30.4 g/dL (32.0-36.0); Mean Corpuscular Volume 104.5 fL (80.0-100.0); Mean Platelet Volume 10.2 fL (9.4-12.4); Platelet Count 142 K/uL (130-400); RDW Coefficient of Variation 15.2 % (11.5-14.5); RDW Standard Deviation 58.8 fL (36.4-46.3); White Blood Count 7.21 K/ul (4.8-10.8)
[2022-09-30 06:29] LABS: BUN Creatinine Ratio 7.7 (10-20); Calcium 8.6 mg/dl (8.6-10.3); Creatinine Clr Calc Pharmacy 12.8 ml/min; Est GFR (African American) 10.8 ml/min; Est GFR (Non-African American) 9.3 ml/min; Ferritin 866.4 ng/ml (8-388); Magnesium 2.5 mg/dl (1.7-2.4)
[2022-09-30] MEDS: INSULIN ASPART PER UNIT CHARGE SC SCH ×4 (08:35→20:47)
[2022-09-30] MEDS: BUMETANIDE 1 MG TAB PO SCH ×2 (08:37→19:54)
[2022-09-30] MEDS: VENLAFAXINE HCL XR 75 MG CAPXR PO SCH (08:37)
[2022-09-30] MEDS: carvediloL 12.5 MG TAB PO SCH ×2 (08:37→17:25)
[2022-09-30] MEDS: POLYETHYLENE (MIRALAX) 17 GM PACK PO SCH (08:37)
[2022-09-30] MEDS: hydrALAZINE TAB 50 MG TAB PO SCH ×3 (08:37→19:54)
[2022-09-30] MEDS: PANTOprazole 40 MG TAB PO SCH ×2 (08:38→19:55)
[2022-09-30] MEDS: amLODIPine BESYLATE 5 MG TAB PO SCH (08:38)
[2022-09-30] MEDS: HEPARIN SOD 5,000 UNIT/0.5 ML VIAL SQ SCH ×2 (08:38→19:55)
[2022-09-30] MEDS: CHOLECALCIFEROL 1,000 UNITS 25 MCG TAB PO SCH (08:38)
--- NOTE | 2022-09-30 09:44 | Palliative Care Consultation ---
Date of Consultation September 30, 2022 Assessment & Plan (1) Palliative care by specialist: Met with pt's family. Provided overview of Palliative Medicine, a subspecialty that provides specialized medical care for people living with a serious illness by offering a focus on quality of life. Palliative Medicine is often conflated with hospice: I advised patient/family that Palliative and hospice can be partners but we are not the same. It is important to understand the difference so that we may be informed, and not afraid. Palliative Medicine works to improve QOL through reduction of symptom burden/more control over their illness, for both the patient and family. Palliative medicine clinicians are board certified, specially-trained and another member of the patient's medical care team. We often provide an extra layer of support because our care is based on the needs of the patient, not the prognosis; as such, it's appropriate at any age/advancing stage of a serious illness and can be provided along with curative treatment. Palliative Medicine clinicians are also trained in advanced communication methodologies, to facilitate complex discussions about advanced illness planning, which are needed to help assure that the treatment choices match the patient's goals, aka delivering Goal Concordant care. Finally, we discussed that hospice is a visiting nurse service that focuses on care delivered at the very end of life for patients with terminal illness, with life expectancy less than 6 month. (2) Counseling regarding advanced directives and goals of care: A very lengthy, 75 minutes [id number] advance care planning and goals of care discussion was held with patient and her at the bedside. I advised them that advance illness planning conversations are conducted to review goals and expectations, support shared decision-making, and engage in disease specific advance care planning. This type of advance care planning is sometimes referred to as 'preparedness planning. It is used to review the risks and benefits of offered therapy, elicit and deepen understanding of the underlying illness and therapeutic options, ensure adequate psychosocial support , address existential concerns and coping, and engage in end-of-life planning. Preparedness planning is not meant to replace informed consent discussions. Palliative medicine plays a role in the process of deepening a patients understanding of this specific medical intervention and ensuring this treatment aligns with their goals of care remains a central tenet of the planning conversation "Shelvi" states that she is in constant discomfort, her hands are always swollen, she is very weak and she cannot perform most tasks for herself. She does not enjoy the way she feels. She feels that she is continue dialysis over the last several years because this has been what her family wanted her to do and she has felt too scared to speak up for what she wants. She states that this time however her suffering has become so amplified that she felt she had no choice but to finally speak up more clearly and firmly for herself. She then begins to state that she knows he does not agree with her, referring to her , and that he continues to insist she remain on dialysis. She tells me that she is very aware of what will happen if she stops dialysis and that she knows she would in a matter of days to a week or 2. She also adds that she is not afraid to and feels that she has lived a reasonably full life and the current state of how she has to live with what she has to do to keep living there is no longer in alignment with the goals, which has been preferences she has for herself. I asked patient's to tell me what he feels would be the goal he has in mind as the reason(s) for her to continue dialysis and he replied "I want her to get better." I then asked him to tell me what we define "better," and he replied that she would be able to move around independently, care for her personal needs, and take care of things around the house. I asked both patient and her if she had done any of these things in the last year and she replied she has not done these things for the last 4 to 5 years. She is not able to get up out of wheelchair by herself or transition to a recliner without assistance. She is not able to take a bath in their shower because it is not accessible and therefore has been requiring bed baths. States they will be having a walk-in shower installed next week and he hopes that with the addition of a shower chair will facilitate patient being able to take a shower. Gently advised him that it is unlikely she will reach retain any of the goals he declines as "better." She has not done these things in the last 4 to 5 years, and there is nothing magical about continuing dialysis from this point forward that would render those things suddenly possible. I advised him that her current baseline is likely her chronic baseline but that perhaps adding more care and support in the home with visiting nurse services would be a solution and a compromise that can help meet needs for both of them. Patient's shares that they have been for 44 years. They met as young children, living on the same street. He was in a foster home. After several years, he was moved to another foster home and for years after that was moved around through the foster system such that they ultimately lost contact. In his mid 20s, after his divorce, he returned to their hometown and sought out her parents hoping to reconnect with her and was advised that she was nearby and also newly . They reconnected that same day and have been together since. notes that patient has been his one constant throughout a childhood and early adulthood that was filled with a lot of uncertainty, transitions, and unreliable "family." It is very clear from our discussions that he sees [place] as"Home" for him, and he is very afraid of losing her - this will create a definitive fracture in the equilibrium of his world and what is familiar and comforting to him. I provided education about the hospice benefit: an interdisciplinary program offered by nurses, nurses aides, social workers, chaplains and a medical corps officer for patients with a terminal condition and a life expectancy of less than 6 months. This is covered by Medicare at 100%/no out of pocket expense to patient and all meds/supplies needed by patient for the reason they are on hospice are paid for/covered by hospice. The goal is assure quality of life of the patient in their home setting (home, fci, inpatient hospice setting) by providing symptoms management, psychosocial and spiritual support. However, they cannot offer 24 hours care and if the family is unable to provide that care, they will have to consider personal care with out of pocket cost vs. fci placement. We discussed the goals of hospice as a patient service and the goals of care; we discussed EOL trajectories and transitions jack the emotional impact of realizing mortality as a concrete reality from prior abstract considerations. Pt was reassured that no matter where they are along this trajectory, they are not alone - their medical team will remain by their side through their journey. Discussed the pros/cons of accepting help when especially weakened and distressed by pain-which would also help provide relief/decrease caregiver burden/strain. I specifically advised patient and/or family if present that Medicare patients can receive care under both the ESRD benefit and the hospice benefit, however the bergeron is whether or not the services are related to ESRD. If the patient's terminal condition is not related to ESRD, the patient may receive covered services under both the ESRD benefit and the hospice benefit ( https://www.cgsmedicare.com/[facility]/coverage/coverage_guidelines/esrd.html#:~:text=M edic are%20patients%20can%20receive%20care,benefit%20and%20the%20hospice%20benefit.) We spoke about how the rigidness of the Medicare Hospice Benefit creates a clear barrier to providing people on dialysis with the full potential of hospice services, which ideally requires weeks of care. The requirement that beneficiaries revoke all life-prolonging care associated with the hospice diagnosis in order to receive hospice services forces patients with limited prognosis to decide between continuing life-prolonging treatments that may add time versus stopping these treatments to receive symptom-based care. Dialysis is a unique life-prolonging treatment with a predictably short prognosis after treatments cease. So, dialysis patients are forced to choose a path that likely will shorten survival in order to have access to the option of high-quality end-of-life services. Not surprisingly, few people on dialysis choose hospice, and those who do often delay hospice enrollment until very near the end of life, often in the setting of a hospitalization. Pt and family were educated re EOL w/ESRD:Pt stopping dialysis may live anywhere from one week to several weeks, depending on the amount of kidney function they have left and their overall medical condition.In hospitalized patients who stopped dialysis,confusion/agitation was reported to affect 70% of patients, followed by pain (55%), dyspnea (48%), nausea (36%), twitching/seizures (27%), anxiety/psychological distress (27%), pruritus (24%), and peripheral edema (21%). Advised thatmean survival following dialysis withdrawal is 8-10 days (although rarely can be many weeks); would note that advanced age, multiple comorbiditi es+frailty, I anticipate this will be shorter anticipated survival. Encouraged family to notify others who may want to visit or speak with pt, as periods of lucidity will decline as ESRD progresses along this EOL trajectory. I addressedthe likelihood of progressive encephalopathy. Reassuredpatien t/familythat symptoms can be adequately treatedbut drugs with sedating side effects may be necessary to ensure comfort. Discusseddiet: provide pt witha liberal, pleasure-based dietto focus on c omfort and QOL, acknowledging that this mayworsen symptoms from edema. (Sources: - https://www.mypcnow.org/fast-fact/zokovjrjijaveyp-ck-pizvhnab-receiving-dialysis / -Noreen LARKIN. End-of-life care preferences and needs: perceptions of patients with chronic kidney disease. Clinical Journal of the [place] [employer] of Nephrology: CJASN. 2010;5:195-204. -Terry KF, Jose Daniel B, Shaheen V and Marixa CHAN. Employment among Patients Starting Dialysis in the [place]. Clinical Journal of the [place] [employer]phrology: CJASN. 2018. -Jaime FLORIAN, Vu MJ, Aris DM. Practical considerations in dialysis withdrawal. To have that option is a blessing. SAKSHI. 2003; 289:2573-9914. -Noreen LARKIN and Kylee FIGUEROA. Impact of pain and symptom burden on the health- related quality of life of hemodialysis patients. Journal of Pain and Symptom Management. 2010;39:477-85.) I suggested to patient that she trial a period of at least 1 month with the addition of hospice while continuing her dialysis. I suggested that in a period of 1 month's time, she reevaluate her quality of life and that if it is not significantly better or to her liking at that junction with the added support and she still felt that I also was taking more from her that given to her, then her decision to stop dialysis could easily be accommodated by not visiting hospice team who would then transition her to a full hospice platform of care. Her felt that this was a very reasonable and perihilar mass. Patient states that she is willing to try this if they can have some more care at home. 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 (3) Chronic respiratory failure with hypoxia: Patient obstructive-restrictive combined lung disease. See PFTs noted above. She has a chronic obstructive lung disease which is advanced and oxygen dependent. THIS IS HER ADMITTING DX FOR HOSPICE. IT IS UNRELATED TO HER ESRD. 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 * She is willing to try hospice while continuing dialysis for a period of at least a month to see if this helps improve her quality of life to a level that would be acceptable and meaningful to her. * She and her reaffirm her CODE STATUS decision of DNR/DNI. They also affirm her selections on her POLST form allowing natural , no artificial or aggressive medical interventions, and no escalating interventions. * Her primary admitting diagnosis to hospice is hypoxic respiratory failure/chronic oxygen dependent, obstructive and restrictive lung disease. Pulmonary function test is noted above. * I called Dr. Bell, medical corps officer at [facility] hospice directly to discuss this case and ensure that the admitting diagnosis to hospice would not conflict with the renal failure diagnoses and dialysis continuation. Patient's advanced lung disease/hypoxic respiratory failure/oxygen dependent/obstructive-restrictive lung disease is not directly more peripherally related to her end-stage renal disease or her need for dialysis. I have updated Dr. Dial. I have also notified care management. This note will be CCed to Dr. Bell at [facility] hospice. Thank you for allowing us to participate in the ongoing care of this patient. Please don't hesitate to call or page with any additional concerns. Dr. Lanny Pan DNP Director, Palliative Care History of Present Illness Reason for Consultation: On 09/29/22 @ 16:31 Savage Dial Wrote To Connie Mcgraw pt reportedly has POLST, may want to decline treat Attending Physician: Savage Dial MD History of Present Illness Per admitting note: "77-year-old female is dialysis dependent cannot be awoken for typical dialysis session this morning by her she became slightly awake did not recognize her family about her reportedly her home oxygen saturations were in the 70s that she typically wears 3 L she was wearing oxygen with these low saturations. Upon presentation to the emergency department on nonrebreather she was 100%. The past she had encephalopathy associate with a UTI but this time it looks like she has a right lower lobe infiltrate on chest x-ray. Patient had cultures obtained and was given Zosyn in the emergency department patient also takes medication such as BuSpar and hydrocodone at home which could be altering her mental status. In the emergency department she had noncontrasted CT which was unremarkable for acute injury Situation arises where family states patient has a POLST form and wants to begin to refuse life-sustaining treatments however patient was sent to dialysis. When visiting the patient in dialysis she was not responsive answer questions. Her was in the room and although tearful said he wishes to support his 's decisions. Palliative care consult was undertaken at this time" "[place]" is seen in her room, at her side. She is tearful throughout much of our encounter. She relates that she has been struggling with low quali ty of life for almost 4 years and has been on dialysis for a total of 8 years. He does not feel she has received significant improvement in her quality of life through this time. She notes that the dialysis sessions take away further from her already low quality of life by making her more tired, weak always feeling cold. She states that she knows she has become a significant burden to her . They do not have any additional support through friends and family. She has a daughter from her first marriage who tries to help but is generally only able to visit them once a week due to her own work schedule and states he is trying to do as much as he can but is overwhelmed by having to care for all of her physical, medical, personal needs while also trying to maintain the house on both the inside and the outside as well as managing all of the duties for cooking, cleaning etc. He states they need a cement mason maintenance. He wants to know why this cannot be provided to them. Allergies Allergy/AdvReac Type Severity Reaction Status Date / Time lisinopril AdvReac Intermediate cough Verified 08/28/22 10:51 Home Medications Medication Instructions Recorded Confirmed Type acetaminophen 500 mg tablet 1,000 mg PO Q6H PRN Pain 11/07/19 08/28/22 History (Tylenol Extra Strength) vit B complx, C-iron 8 mg-folic 1 tab PO QDL 02/27/20 08/28/22 History acid 800 mcg-D3 1,000 unit-zinc tablet (ProRenal) lancets 33 gauge (OneTouch Delica #100 ea 11/27/20 08/28/22 Rx Lancets) calcium acetate 667 mg tablet 667 mg PO UD 12/17/20 08/28/22 History bumetanide 2 mg tablet 4 mg PO BID 10/14/21 08/28/22 History sodium zirconium cyclosilicate 5 5 g PO 4XWK 03/25/22 08/28/22 History gram oral powder packet (Lokelma) blood sugar diagnostic (OneTouch #300 ea 07/31/22 08/28/22 Rx Verio test strips) blood-glucose meter (OneTouch #1 ea 07/31/22 08/28/22 Rx Verio Meter) buspirone 5 mg tablet 5 mg PO BID 07/31/22 08/28/22 History cholecalciferol (vitamin D3) 50 50 mcg PO DAILY #90 caps 07/31/22 08/28/22 Rx mcg (2,000 unit) capsule levothyroxine 100 mcg tablet 100 mcg PO QPM #90 tabs 07/31/22 08/28/22 Rx ondansetron 8 mg disintegrating 8 mg PO Q8H PRN Nausea #90 tabs 07/31/22 08/28/22 Rx tablet pantoprazole 40 mg tablet,delayed 40 mg PO BID 90 days #180 tabs 07/31/22 08/28/22 Rx release primidone 50 mg tablet 50 mg PO HS #10 tabs 07/31/22 08/28/22 Rx venlafaxine 75 mg capsule,extended 75 mg PO DAILY #90 caps 07/31/22 08/28/22 Rx release 24 hr carvedilol 12.5 mg tablet (Coreg) 12.5 mg PO BID #180 tabs 08/04/22 08/28/22 Rx amlodipine 10 mg tablet 10 mg PO DAILY #90 tabs 08/17/22 08/28/22 Rx hydralazine 50 mg tablet 50 mg PO TID #270 tabs 08/20/22 08/28/22 Rx CPAP Supplies See Rx Instructions .Route 03/24/23 03/31/23 Rx .COMPLEX #1 ea hydrocodone 5 mg-acetaminophen 300 1 tab PO BID PRN pain #40 tabs 08/28/22 08/28/22 Rx mg tablet polyethylene glycol 3350 17 17 g PO DAILY #510 grams 08/28/22 08/28/22 Rx gram/dose oral powder (Miralax) lactulose 10 gram/15 mL oral 15 ml PO DAILY PRN Constipation 09/03/22 Rx solution #1,350 mL Oxygen Home #1 ea 09/04/22 09/04/22 Rx gabapentin 300 mg capsule 300 mg PO 3XWK #48 caps 09/14/22 Rx atorvastatin 20 mg tablet 20 mg PO HS #90 tabs 09/18/22 Rx Patient History Medical History (Updated 09/30/22 @ 19:07 by Lanny aPn DNP) Abnormal EKG Acute electrocardiogram changes Acute hyperkalemia Acute UTI Anemia Anxiety Arthritis COPD, severe Coronary artery disease Counseling regarding advanced directives and goals of care Depression Depression with anxiety Diabetes mellitus Diabetic retinopathy Dyslipidemia Elevated troponin End-stage renal disease on hemodialysis Fatigue GERD without esophagitis Hallucinations Hernia, hiatal History of thrombophlebitis Hyperkalemia, diminished renal excretion Hypertension Hypothyroidism Insomnia Laceration of left lower extremity Macular puckering, bilateral 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 Obstructive sleep apnea Palliative care by specialist Panniculitis Paresthesias Polyarthritis Transaminitis Tubular adenoma of colon Type 2 diabetes mellitus with diabetic neuropathy Vitamin D deficiency Weakness generalized Surgical History H/O: hysterectomy History of bladder surgery History of cataract surgery History of nasal septoplasty History of tonsillectomy S/P arteriovenous (AV) fistula creation S/P hysterectomy S/P repair of paraesophageal hernia S/P rotator cuff repair Family History Mother Leukemia Cerebral aneurysm Hypertension Anxiety Diabetes Cancer Heart disease Grandmother Hypertension Father Osteoarthritis COPD (chronic obstructive pulmonary disease) Diabetes Hearing loss Sister Diabetes Myocardial infarction COPD (chronic obstructive pulmonary disease) Hypertension Brother Myocardial infarction Diabetes Cancer Stomach cancer Other No family history of bleeding disorder Denies family history of Ovarian cancer Prostate cancer Breast cancer Colorectal cancer Stroke Asthma Social History Smoking Status: Never smoker Second Hand Exposure: No; Do You Dip or Chew Tobacco: No; Hx Alcohol Use: No Hx Substance Use: No Preferred Language: Cuban Communication Ability: Impaired Visual Impairment: No Limitations Hearing Ability: Normal Blue Line Operator Required: No Beliefs That Will Affect Care: None marital status: Current Living Situation: Spouse Current Living Situation Comment: Home w/spouse current occupational status: retired How many Children do You have: 1 Other Information That Helps Us Care for You: No Feels Safe at Home: Yes Safety Concerns: Feels Safe At This Time Dental Care, Regularly: No Physical Activity Frequency: 1-2 Times per Week Seatbelt Use: always Assistive Devices: Oxygen - Continuous, Walker and Wheelchair Review of Systems Review of Systems: Unobtainable due to cognitive status Physical Exam Physical Exam: Constitutional: Complete, frail, chronically ill-appearing female semireclined in bed. She is at times tearful throughout this visit. Complexion is pale and skin is cool. There is edema to the upper extremities noted. There is mild bitemporal wasting. Pupils are equal, round and reactive to light. Extraocular movements are intact. Neck is supple. There is some bitemporal wasting. Oral mucosa are moist, pink and dentition is fair. There is no obvious thrush. Pulm breath sounds are diminished. There are a few basilar crackles noted. There is increased use of accessory muscles with prolonged conversation and conversational dyspnea. She remains on nasal cannula oxygen. CV S1-S2, no gross JVD. Abdomen is softly distended, bowel sounds are present. There is nontender to palpation. There is generalized weakness to her extremities. She is awake alert and oriented x3. She is pleasant and cooperative with this exam and able to follow simple commands. Results & Data Vital Signs (Past 12 Hours) Vital Signs Temp Pulse Pulse Pulse Resp BP Pulse Ox 09/30/22 06:00 68 09/30/22 07:36 36.8 C 69 18 163/78 H 95 09/30/22 03:05 36.8 C 75 20 144/73 H 94 09/29/22 22:00 75 09/29/22 22:42 36.7 C 74 18 132/72 93 O2 Del Method O2 Flow Rate 09/30/22 06:00 09/30/22 07:36 Nasal Cannula 2 09/30/22 03:05 Room Air 09/29/22 22:00 09/29/22 22:42 Room Air Laboratory Results reviewed Diagnostic Findings reviewed PG Care Time/CCT Total # of Minutes Spent Total Time Spent: 150 Total Time Spent with Patient: Total time spent is greater than 50% in coordination of care (as documented) at patient's floor/unit and/or counseling patient: I spent 150 minutes overall addressing this very complex, lengthy case: 15 in medical data review/discussion with referring provider(s) and/or preparation for the visit 20 in direct interaction with the patient []and/or [] 75 Advance Care Planning/Goals of Care discussions as detailed above in note (must be >16min) 15 in subsequent review and synthesis of assessment and plan 25 in communicating with other providers regarding the patient's case: primary team, [facility] hospice/Dr. Ray CM Prolonged Care Time Prolonged Care Time: Yes Advanced Care Planning 69820 Advanced Care Planning 30 Min 71430 Advanced Care Planning Additional 30 [place] [address] IN/OBS CONSULT LVL 5,80M Patient Type New Medical Decision Making High Complexity Diagnoses Palliative care by specialist Z51.5 Counseling regarding advanced directives and goals of care Z71.89 Chronic respiratory failure with hypoxia J96.11 COPD, severe J44.9 Mixed restrictive and obstructive lung disease J43.9; J98.4 Restrictive lung disease J98.4 Weakness generalized R53.1 End-stage renal disease on hemodialysis N18.6; Z99.2 Cardiomyopathy I42.9 Polymyalgia rheumatica M35.3 Additional Codes Prolonged Care Time - Prolonged Care Time: Yes ([id number]) Advanced Care Planning - [id number] Advanced Care Planning 30 Min: 63420 Advanced Care Planning 30 Min ([id number]) Advanced Care Planning - 10008 Advanced Care Planning Additional 30 Min: 30527 Advanced Care Planning Additional 30 Min ([id number])
[2022-09-30] MEDS ORDERED: SODIUM CHLORIDE 0.9% 250 ML IV PRN (09:54)
[2022-09-30] MEDS ORDERED: SODIUM CHLORIDE 0.9% 1000ML 1,000 ML IV PRN (09:54)
--- NOTE | 2022-09-30 10:45 | Nephrology Progress Note ---
Date of Service September 30, 2022 Assessment & Plan (1) Anemia: Plan: * Patient denies overt blood loss * Iron stores are acceptable * Epogen 10,000 units IV administered w/ HD yesterday * Will order FOBT * Patient consents to 2 U PRBC - signed consent placed on chart * Will transfuse 2 U PRBC on HD today * H&H in am (2) End-stage renal disease on hemodialysis: Plan: * Will provide 2 hrs HD today - transfuse 2 U PRBC, attempt 2 L UF * Will plan on short HD tomorrow to resume TTS schedule * HD TTS [facility] [place]: 4.75hr, 2K 2Ca, Na 137, HCO3 35, F-180NR, Qb400, EDW 90 kg (3) CHF (congestive heart failure): Plan: * Patient is 13 kg above EDW (90 kg) * Will attempt 2 L UF with HD today * CXR this am shows improvement in CHF * 04/21 Echocardiogram - LVEF 55-60%, mild LVH, mild MR * 05/21 Cardiac cath - no obstructive lesions (4) Hyperkalemia: Plan: * Resolved * Will dialyze today using 3K bath * Continue po Bumex to promote diuresis, kaliuresis * Continue Sodium Zirconium Cyclosilicate * PRP in am (5) Leukocytosis: Plan: * Leukocytosis resolved * Await blood and urine culture results (6) Confusion: Plan: * Avoid Hydrocodone * Will resume Gabapentin AT 100 mg po TTS at 1700 hrs due to neuropathy Admission and Anticipated Discharge Date Admission Date: September 29, 2022 Subjective Mrs. Patrick was evaluated in her hospital room this morning. Her was at bedside. Mrs. Patrick was dialyzed yesterday without complication. This morning she is alert and oriented. Hgb is low. Patient denies overt blood loss Review of Systems Constitutional: no fever Eyes: no problem reported Ear, Nose, Mouth, Throat: no problem reported Respiratory: + dyspnea; no cough and no sputum production Cardiovascular: no chest pain Gastrointestinal: no vomiting and no diarrhea/loose stools Physical Exam Constitutional: + overweight Eyes: PERRL, conjunctivae normal, anicteric sclerae ENMT: external ear and nose normal, oropharynx normal Neck: trachea midline, no thyromegaly Respiratory: Auscultation: lungs clear to auscultation bilaterally and + rales (bilaterally) Cardiovascular: Rate/Rhythm: regular rate and regular rhythm Heart Sounds: no cardiac rub Extremities: + edema (trace pretibial edema) Gastrointestinal (Abdomen): normal bowel sounds, soft, nontender, no hepatosplenomegaly Neurologic: awake; not confused Psychiatric: Affect: + anxious affect Results & Data Vital Signs (Past 12 Hours) Vital Signs Temp Pulse Pulse Pulse Resp BP Pulse Ox 09/30/22 06:00 68 09/30/22 07:36 36.8 C 69 18 163/78 H 95 09/30/22 03:05 36.8 C 75 20 144/73 H 94 09/29/22 22:42 36.7 C 74 18 132/72 93 O2 Del Method O2 Flow Rate 09/30/22 06:00 09/30/22 07:36 Nasal Cannula 2 09/30/22 03:05 Room Air 09/29/22 22:42 Room Air Laboratory Results Laboratory Tests 09/30/22 09/30/22 05:30 05:30 WBC 7.21 Hgb 7.0 L Hct 23.0 L Plt Count 142 Sodium 135 L Potassium 5.0 D Chloride 99 BUN 33 H D Creatinine 4.29 H D Glucose 119 H Transferrin % Sat 39 Ferritin 866.4 H PG Care Time/CCT Total # of Minutes Spent Total Time Spent with Patient: Total time spent is greater than 50% in coordination of care (as documented) at patient's floor/unit and/or counseling patient: Coding Level of Care Code 86088 SUB INP/OBS CARE 3/50MIN Diagnoses Anemia D64.9 End-stage renal disease on hemodialysis N18.6; Z99.2 CHF (congestive heart failure) I50.9 Hyperkalemia E87.5 Leukocytosis D72.829 Confusion R41.0
[2022-09-30] MEDS: CEROVITE ADV FORMULA TAB PO SCH (12:44)
[2022-09-30] MEDS: SODIUM ZIRCONIUM CYCLOSILICATE 10 GM PACKET PO SCH (12:44)
--- NOTE | 2022-09-30 14:34 | XRay Report ---
SINGLE VIEW CHEST CLINICAL HISTORY: Congestive heart failure. FINDINGS: An AP, portable, upright chest radiograph is compared to study dated 09/29/2022 and correlate d with chest CT dated 01/17/2022. The heart is enlarged noting atherosclerotic calcification of the th oracic aorta. There is mild pulmonary vascular congestion. There are small pleural effusions. There i s bibasilar scarring/atelectasis. No pneumothorax is seen. The skeletal structures are osteopenic. Th e bony thorax is grossly intact. Surgical clips project over the gastroesophageal junction. IMPRESSION: 1. Cardiomegaly with mild pulmonary vascular congestion. 2. Small pleural effusions. ACT 112: Negative or not required by law. Electronically signed by: Derek Low M.D. 09/30/2022 2:33 PM
--- NOTE | 2022-09-30 17:48 | Hospitalist Progress Note ---
Date of Service September 30, 2022 Assessment & Plan (1) Metabolic encephalopathy: Plan: Acute resolved patient presents with acute metabolic encephalopathy with also concern for toxic encephalopathy. Patient has a right lower lobe infiltrate and likely has gram- negative or aspiration pneumonia will be treated with Zosyn therapy. Last hospitalization in July she had hallucinations which were felt to be associate with Ativan and tramadol Blood cutures are negative and urine cultures show lactobacillus jimmyley colinized in the past she has had urinary tract infections patient had Belle glabrata in July in her urine in May and alpha strep Discussion of POLST form and discontinuation of life-sustaining treatment undertaken with family, appreciate palliative care consult (2) End-stage renal disease on hemodialysis: Plan: Chronic typically stable when participating in treatment. End-stage renal disease typically on dialysis. She does still make urine and typically also takes Bumex 4 mg twice daily. Nephrology be consulted as she will have intensive renal replacement She typically is on potassium lowering agent a few times a week remains on calcium acetate vitamin D3 acute on chronic anemia, anemia of chronic disease, transfused 2 u prbc (3) Diabetes mellitus: Plan: Patient has a history of diabetes which is diet controlled last hemoglobin A1c was 5.7 her glucose is slightly elevated on presentation therefore this is chronic unclear if controlled will evaluate if needing sliding scale insulin dur ing his hospital stay (4) Coronary artery disease: Plan: Chronic and stable antihypertensive control with amlodipine hydralazine car vedilol, secondary risk prevention with atorvastatin, (5) Hypothyroidism: Plan: Chronic and stable maintain Synthroid therapy last TSH was checked in July and was replete (6) Depression with anxiety: Plan: Chronic and stable although unable to assess due to mental status changes on venlafaxine likely gabapentin also helps her mood (7) Obstructive sleep apnea: Plan pt will have dialysis and may target home on wednesday [facility] with home health or hospice if agency will take pt on dialysis Admission and Anticipated Discharge Date Admission Date: September 29, 2022 Subjective Mrs. Patrick alert and oriented was dialyzed yesterday without complication. discussions of palliative care, pt still wants to continue to go to dialysis Physical Exam Physical Exam: remembers her treatment plan, is in agreement to have transfusion and dialysis cardiac exam is regular with a systolic murmur lungs are diminished at the bases extremities are with trace edema Results & Data Results & Data Vital Signs (Past 12 Hours) Vital Signs Temp Pulse Pulse Resp BP BP Pulse Ox 09/30/22 17:00 98.2 F 69 18 179/76 H 91 09/30/22 16:56 97.9 F 66 202/102 H 09/30/22 16:31 97.9 F 66 18 202/102 H 09/30/22 14:08 67 09/30/22 16:15 66 193/87 H 09/30/22 16:00 97.5 F L 58 L 152/66 H 09/30/22 15:45 60 167/72 H 09/30/22 15:36 98.1 F 67 161/80 H 09/30/22 15:30 98.1 F 58 L 143/82 H 09/30/22 15:15 64 189/78 H 09/30/22 16:00 98.1 F 58 L 18 152/66 H 09/30/22 15:45 98.1 F 60 18 167/72 H 09/30/22 15:36 98.1 F 67 18 161/80 H 09/30/22 15:33 98.1 F 64 18 143/87 H 09/30/22 15:31 64 143/82 H 09/30/22 15:00 98.2 F 66 176/82 H 09/30/22 14:45 65 174/76 H 09/30/22 14:30 98.2 F 65 157/64 H 09/30/22 14:30 98.2 F 65 18 152/69 H 09/30/22 14:13 66 152/69 H 09/30/22 14:05 98.2 F 74 09/30/22 12:08 98.2 F 71 19 174/65 H 91 09/30/22 08:20 09/30/22 06:00 68 09/30/22 07:36 98.2 F 69 18 163/78 H 95 O2 Del Method O2 Flow Rate 09/30/22 17:00 Nasal Cannula 4 09/30/22 16:56 09/30/22 16:31 09/30/22 14:08 09/30/22 16:15 09/30/22 16:00 09/30/22 15:45 09/30/22 15:36 09/30/22 15:30 09/30/22 15:15 09/30/22 16:00 09/30/22 15:45 09/30/22 15:36 09/30/22 15:33 09/30/22 15:31 09/30/22 15:00 09/30/22 14:45 09/30/22 14:30 09/30/22 14:30 09/30/22 14:13 09/30/22 14:05 09/30/22 12:08 Room Air 09/30/22 08:20 Nasal Cannula 4 09/30/22 06:00 09/30/22 07:36 Nasal Cannula 2 Laboratory Results Reviewed CBC Reviewed PRP PG Care Time/CCT Total # of Minutes Spent Total Time Spent with Patient: Total time spent is greater than 50% in coordination of care (as documented) at patient's floor/unit and/or counseling patient: Coding Level of Care Code 09363 SUB INP/OBS CARE 3/50MIN Diagnoses Metabolic encephalopathy G93.41 End-stage renal disease on hemodialysis N18.6; Z99.2 Diabetes mellitus E11.22; N18.6; Z79.4; Z99.2 Diabetes mellitus type: type 2 Diabetes mellitus [facility] insulin use: with [facility] use Diabetes mellitus complication status: with kidney complications Diabetes mellitus complication detail: with chronic kidney disease Chronic kidney disease stage: on chronic dialysis Coronary artery disease I25.10 Coronary Disease-Associated Artery/Lesion type: [place] artery [place] vs. transplanted heart: [place] heart Associated angina: without angina Hypothyroidism E03.9 Hypothyroidism type: unspecified Depression with anxiety F41.8 Obstructive sleep apnea G47.33 (3) Diabetes mellitus Diabetes mellitus type: type 2 Diabetes mellitus terminal supervisor insulin use: with terminal supervisor use Diabetes mellitus complication status: with kidney complications Diabetes mellitus complication detail: with chronic kidney disease Chronic kidney disease stage: on chronic dialysis Qualified Code(s): E11.22 - Type 2 diabetes mellitus with diabetic chronic kidney disease; N18.6 - End stage renal disease; Z79.4 - extermination inspector (current) use of insulin; Z99.2 - Dependence on renal dialysis (4) Coronary artery disease Coronary Disease-Associated Artery/Lesion type: [place] artery [place] vs. transplanted heart: [place] heart Associated angina: without angina Qualified Code(s): I25.10 - Atherosclerotic heart disease of [place] coronary artery without angina pectoris (5) Hypothyroidism Hypothyroidism type: unspecified Qualified Code(s): E03.9 - Hypothyroidism, unspecified
[2022-09-30] MEDS: ATORVASTATIN 20 MG TAB PO SCH (19:54)
[2022-09-30] MEDS: LEVOTHYROXINE SODIUM 100 MCG TABLET PO SCH (19:55)
[2022-10-01] MEDS: PIPERACILLIN/TAZOBACTAM 4.5 GM in DEXTROSE 5% 100 ML IV SCH ×2 (02:29→14:26)
[2022-10-01] MEDS ORDERED: hydrALAZINE HCL 20 MG/ML VIAL IV ONE (03:29)
[2022-10-01] MEDS: ACETAMINOPHEN 500 MG TAB PO PRN (04:24)
[2022-10-01] MEDS ORDERED: hydrOXYzine HCl 10 MG TAB PO STA (05:10)
[2022-10-01 06:36] LABS: Hematocrit (blood only) 30.9 % (37.0-47.0); Mean Corpuscular Hemoglobin 31.2 pg (25.0-34.0); Mean Corpuscular Hgb Conc 32.4 g/dL (32.0-36.0); Mean Corpuscular Volume 96.3 fL (80.0-100.0); Platelet Count 161 K/uL (130-400); RDW Coefficient of Variation 18.6 % (11.5-14.5); RDW Standard Deviation 66.4 fL (36.4-46.3); Red Blood Count 3.21 M/uL (4.20-5.40); White Blood Count 7.77 K/ul (4.8-10.8)
[2022-10-01 06:45] LABS: BUN Creatinine Ratio 7.7 (10-20); Calcium 8.5 mg/dl (8.6-10.3); Creatinine Clr Calc Pharmacy 14.5 ml/min; Est GFR (African American) 12.7 ml/min; Est GFR (Non-African American) 10.9 ml/min; Magnesium 2.4 mg/dl (1.7-2.4); Potassium 4.3 mmol/L (3.5-5.1)
[2022-10-01] MEDS: HEPARIN SOD 5,000 UNIT/0.5 ML VIAL SQ SCH ×2 (08:18→20:36)
[2022-10-01] MEDS: CHOLECALCIFEROL 1,000 UNITS 25 MCG TAB PO SCH (08:18)
[2022-10-01] MEDS: VENLAFAXINE HCL XR 75 MG CAPXR PO SCH (08:18)
[2022-10-01] MEDS: BUMETANIDE 1 MG TAB PO SCH ×2 (08:18→20:37)
[2022-10-01] MEDS: PANTOprazole 40 MG TAB PO SCH ×2 (08:19→20:38)
[2022-10-01] MEDS: carvediloL 12.5 MG TAB PO SCH ×2 (08:20→17:09)
[2022-10-01] MEDS: amLODIPine BESYLATE 5 MG TAB PO SCH (08:20)
[2022-10-01] MEDS: hydrALAZINE TAB 50 MG TAB PO SCH ×3 (08:20→20:37)
[2022-10-01] MEDS: INSULIN ASPART PER UNIT CHARGE SC SCH ×4 (08:21→21:34)
[2022-10-01] MEDS ORDERED: LORazepam 0.5 MG TAB ONE (08:28)
[2022-10-01] MEDS: POLYETHYLENE (MIRALAX) 17 GM PACK PO SCH (09:11)
--- NOTE | 2022-10-01 11:26 | Nephrology Progress Note ---
Date of Service October 01, 2022 Assessment & Plan (1) Anemia: Plan: * Transfused 2 U PRBC with HD yesterday * Hgb improved 7.0-->10.0 * FOBT - pending. Patient denies melena, hematochezia * Iron sat 39%, ferritin 866. No acute indication for IV iron * Monitor H&H (2) End-stage renal disease on hemodialysis: Plan: * HD today to resume TTS schedule * HD TTS [facility] [place]: 4.75hr, 2K 2Ca, Na 137, HCO3 35, F-180NR, Qb400, EDW 90 kg * Mrs. Patrick consents to HD today but notes that she has become "tired". She is interested in HD w/palliative care for 6 weeks and then possible transition to hospice care (3) CHF (congestive heart failure): Plan: * Will attempt 3 L UF with HD today * CXR 09/30/22 shows improvement in CHF * 04/21 Echocardiogram - LVEF 55-60%, mild LVH, mild MR * 05/21 Cardiac cath - no obstructive lesions (4) Hyperkalemia: Plan: * Resolved * Continue po Bumex to promote diuresis, kaliuresis * Continue Sodium Zirconium Cyclosilicate * PRP in am (5) Leukocytosis: Plan: * Leukocytosis resolved * Await blood and urine culture results (6) Confusion: Plan: * Avoid Hydrocodone * On Gabapentin 100 mg po TTS at 1700 hrs due to neuropathy Admission and Anticipated Discharge Date Admission Date: September 29, 2022 Subjective Mrs. Patrick was evaluated prior to HD this morning. She is agreeable to dialysis today and is hopeful that she will be able to return home soon Review of Systems Constitutional: no fever Eyes: no problem reported Ear, Nose, Mouth, Throat: no problem reported Respiratory: + dyspnea; no cough and no sputum production Cardiovascular: no chest pain Gastrointestinal: no vomiting and no diarrhea/loose stools Physical Exam Constitutional: + ill appearing and + overweight Eyes: PERRL, conjunctivae normal, anicteric sclerae ENMT: external ear and nose normal, oropharynx normal Neck: trachea midline, no thyromegaly Respiratory: Auscultation: lungs clear to auscultation bilaterally and + rales (bilaterally) Cardiovascular: Rate/Rhythm: regular rate and regular rhythm Heart Sounds: no cardiac rub Extremities: + edema (trace pretibial edema) Gastrointestinal (Abdomen): normal bowel sounds, soft, nontender, no hepatosplenomegaly Neurologic: awake; not confused Psychiatric: Affect: + anxious affect Results & Data Vital Signs (Past 12 Hours) Vital Signs Temp Pulse Pulse Pulse Resp BP BP 10/01/22 10:30 64 154/60 H 10/01/22 10:00 65 185/67 H 10/01/22 09:30 64 156/77 H 10/01/22 09:15 66 160/68 H 10/01/22 09:04 36.7 C 66 10/01/22 08:00 36.9 C 66 20 177/79 H 10/01/22 03:19 188/69 H 10/01/22 02:31 36.6 C 70 18 190/72 H 09/30/22 23:31 61 Pulse Ox O2 Del Method O2 Flow Rate 10/01/22 10:30 10/01/22 10:00 10/01/22 09:30 10/01/22 09:15 10/01/22 09:04 10/01/22 08:00 Nasal Cannula 4 10/01/22 03:19 10/01/22 02:31 95 Nasal Cannula 4 09/30/22 23:31 Laboratory Results Laboratory Tests 10/01/22 10/01/22 05:52 05:52 WBC 7.77 Hgb 10.0 L D Hct 30.9 L Plt Count 161 Sodium 135 L Potassium 4.3 Chloride 99 Carbon Dioxide 28 BUN 29 H Creatinine 3.76 H D Glucose 139 H PG Care Time/CCT Total # of Minutes Spent Total Time Spent with Patient: Total time spent is greater than 50% in coordination of care (as documented) at patient's floor/unit and/or counseling patient: Coding Level of Care Code 11952 SUB INP/OBS CARE 3/50MIN Diagnoses Anemia D64.9 End-stage renal disease on hemodialysis N18.6; Z99.2 CHF (congestive heart failure) I50.9 Hyperkalemia E87.5 Leukocytosis D72.829 Confusion R41.0
[2022-10-01] MEDS: CEROVITE ADV FORMULA TAB PO SCH (11:55)
[2022-10-01] MEDS ORDERED: GABAPENTIN 100 MG CAP PO SCH (17:00)
--- NOTE | 2022-10-01 17:07 | Hospitalist Progress Note ---
Date of Service October 01, 2022 Assessment & Plan (1) Metabolic encephalopathy: Plan: Acute on admission, resolved Suspect due to aspiration pneumonia, may be multifactorial with home hydrocodone use Blood cultures negative CXR with right lower lobe infiltrate Patient continued on Zosyn. Reasonable to downgrade to Augmentin at discharge. Has had past UTIs with Belel, office strep, and Unasyn resistant E. coli - Discussion of POLST form and discontinuation of life-sustaining treatment undertaken with family, appreciate palliative care consult (2) End-stage renal disease on hemodialysis: Plan: Chronic typically stable when participating in treatment. End-stage renal disease typically on dialysis. She does still make urine and typically also takes Bumex 4 mg twice daily. Nephrology following for HD She typically is on potassium lowering agent a few times a week remains on calcium acetate vitamin D3 Appropriate uptrend in hemoglobin following transfusion /, up trended to 10.0 (3) Diabetes mellitus: Plan: Patient has a history of diabetes which is diet controlled last hemoglobin A1c was 5.7 her glucose is slightly elevated on presentation therefore this is chronic unclear if controlled will evaluate if needing sliding scale insulin during his hospital stay (4) Coronary artery disease: Plan: Chronic and stable antihypertensive control with amlodipine hydralazine carvedilol secondary risk prevention with atorvastatin (5) Hypothyroidism: Plan: Chronic and stable maintain Synthroid therapy last TSH was checked in July and was replete (6) Depression with anxiety: Plan: Chronic and stable although unable to assess due to mental status changes on venlafaxine likely gabapentin also helps her mood (7) Obstructive sleep apnea: Plan Goals of care: Extensive discussions as documented with providers and palliative. Patient wishes to continue hemodialysis at this time, but does acknowledge emotional and physical fatigue related to her chronic disease and notes that she is unlikely to get back to the baseline that her and her had hoped for. They are considering hospice/home health for a few weeks at home after discharge, with reevaluation of overall goals based on how that goes. Do wish to continue HD at this time. Admission and Anticipated Discharge Date Admission Date: September 29, 2022 Subjective Patient seen at the bedside this morning. Denies, chest pain, chest pressure, shortness of breath, difficulty breathing endorses overall global fatigue. Care has been discussed extensively between patient and hospice/palliative care, does not wish to stop dialysis but notes that she is interested in palliative care for overlap and transition depending on how she is doing. She has no other concerns today other than that she is hopeful for dialysis today and return home tomorrow. Receives dialysis Wednesday//Wednesday. Physical Exam Physical Exam: General: A&Ox3. NAD. Cooperative. HEENT: Atraumatic, normocephalic. Pulm: Bibasilar rales, lungs otherwise clear without wheezes. No respiratory distress. Cardiac: RRR, -mrg. Radial pulses intact and symmetrical. Abdominal: Nontender, nondistended, soft. BS present. Results & Data Results & Data Vital Signs (Past 12 Hours) Vital Signs Temp Pulse Pulse Resp BP BP Pulse Ox 10/01/22 16:00 36.8 C 87 18 108/69 10/01/22 12:40 36.7 C 77 18 139/74 97 10/01/22 08:00 68 10/01/22 11:20 36.7 C 65 146/66 H 10/01/22 11:00 68 131/71 10/01/22 10:30 64 154/60 H 10/01/22 10:00 65 185/67 H 10/01/22 09:30 64 156/77 H 10/01/22 09:15 66 160/68 H 10/01/22 09:04 36.7 C 66 10/01/22 08:00 36.9 C 66 20 177/79 H O2 Del Method O2 Flow Rate 10/01/22 16:00 Room Air 10/01/22 12:40 Room Air 10/01/22 08:00 10/01/22 11:20 10/01/22 11:00 10/01/22 10:30 10/01/22 10:00 10/01/22 09:30 10/01/22 09:15 10/01/22 09:04 10/01/22 08:00 Nasal Cannula 4 PG Care Time/CCT Total # of Minutes Spent Total Time Spent with Patient: Total time spent is greater than 50% in coordination of care (as documented) at patient's floor/unit and/or counseling patient: Coding Level of Care Code 28411 SUB INP/OBS CARE 2/35MIN Diagnoses Metabolic encephalopathy G93.41 End-stage renal disease on hemodialysis N18.6; Z99.2 Diabetes mellitus E11.22; N18.6; Z79.4; Z99.2 Diabetes mellitus type: type 2 Diabetes mellitus [employer] customer [employer] insulin use: with residential use Diabetes mellitus complication status: with kidney complications Diabetes mellitus complication detail: with chronic kidney disease Chronic kidney disease stage: on chronic dialysis Coronary artery disease I25.10 Coronary Disease-Associated Artery/Lesion type: [place] artery [place] vs. transplanted heart: [place] heart Associated angina: without angina Hypothyroidism E03.9 Hypothyroidism type: unspecified Depression with anxiety F41.8 Obstructive sleep apnea G47.33 (3) Diabetes mellitus Diabetes mellitus type: type 2 Diabetes mellitus [employer] customer [employer] insulin use: with residential use Diabetes mellitus complication status: with kidney complications Diabetes mellitus complication detail: with chronic kidney disease Chronic kidney disease stage: on chronic dialysis Qualified Code(s): E11.22 - Type 2 diabetes mellitus with diabetic chronic kidney disease; N18.6 - End stage renal disease; Z79.4 - intermodal customer service (current) use of insulin; Z99.2 - Dependence on renal dialysis (4) Coronary artery disease Coronary Disease-Associated Artery/Lesion type: [place] artery [place] vs. transplanted heart: [place] heart Associated angina: without angina Qualified Code(s): I25.10 - Atherosclerotic heart disease of [place] coronary artery without angina pectoris (5) Hypothyroidism Hypothyroidism type: unspecified Qualified Code(s): E03.9 - Hypothyroidism, unspecified
[2022-10-01] MEDS: LORazepam 0.5 MG TAB PO PRN (20:36)
[2022-10-01] MEDS: ATORVASTATIN 20 MG TAB PO SCH (20:37)
[2022-10-01] MEDS: LEVOTHYROXINE SODIUM 100 MCG TABLET PO SCH (20:38)
[2022-10-02] MEDS: PIPERACILLIN/TAZOBACTAM 4.5 GM in DEXTROSE 5% 100 ML IV SCH (02:25)
[2022-10-02] MEDS ORDERED: hydrALAZINE HCL 20 MG/ML VIAL IV ONE (02:36)
[2022-10-02 06:57] LABS: Hematocrit (blood only) 33.1 % (37.0-47.0); Hemoglobin 10.5 g/dl (12.0-16.0); Mean Corpuscular Hemoglobin 30.9 pg (25.0-34.0); Mean Corpuscular Hgb Conc 31.7 g/dL (32.0-36.0); Mean Corpuscular Volume 97.4 fL (80.0-100.0); Mean Platelet Volume 9.9 fL (9.4-12.4); Platelet Count 199 K/uL (130-400); RDW Coefficient of Variation 17.6 % (11.5-14.5); RDW Standard Deviation 63.8 fL (36.4-46.3); White Blood Count 9.39 K/ul (4.8-10.8)
[2022-10-02 06:58] LABS: BUN Creatinine Ratio 7.9 (10-20); Calcium 8.8 mg/dl (8.6-10.3); Creatinine Clr Calc Pharmacy 12.1 ml/min; Est GFR (African American) 11.1 ml/min; Est GFR (Non-African American) 9.6 ml/min; Magnesium 2.4 mg/dl (1.7-2.4); Potassium 4.3 mmol/L (3.5-5.1)
[2022-10-02] MEDS: carvediloL 12.5 MG TAB PO SCH (07:43)
[2022-10-02] MEDS: BUMETANIDE 1 MG TAB PO SCH (07:44)
[2022-10-02] MEDS: amLODIPine BESYLATE 5 MG TAB PO SCH (07:44)
[2022-10-02] MEDS: PANTOprazole 40 MG TAB PO SCH (07:44)
[2022-10-02] MEDS: hydrALAZINE TAB 50 MG TAB PO SCH (07:45)
[2022-10-02] MEDS: CHOLECALCIFEROL 1,000 UNITS 25 MCG TAB PO SCH (07:46)
[2022-10-02] MEDS: HEPARIN SOD 5,000 UNIT/0.5 ML VIAL SQ SCH (07:46)
[2022-10-02] MEDS: POLYETHYLENE (MIRALAX) 17 GM PACK PO SCH (07:47)
[2022-10-02] MEDS: VENLAFAXINE HCL XR 75 MG CAPXR PO SCH (07:47)
[2022-10-02] MEDS: LORazepam 0.5 MG TAB PO PRN (07:59)
--- NOTE | 2022-10-02 08:54 | Nephrology Progress Note ---
Date of Service October 02, 2022 Assessment & Plan (1) Anemia: Plan: * Transfused 2 U PRBC with HD 09/30/22 * Hgb improved 7.0-->10.5 * 10/01/22 FOBT - negative * Iron sat 39%, ferritin 866. No acute indication for IV iron * Monitor H&H (2) End-stage renal disease on hemodialysis: Plan: * Volume status and electrolyte balance are acceptable. No acute indication for HD today. Can consider discharge once BP is better controlled. Hydralazine dose increased to 75 mg po TID * HD TTS [facility]: 4.75hr, 2K 2Ca, Na 137, HCO3 35, F-180NR, Qb400, EDW 90 kg * Mrs. Patrick c/o back and joint pain. She wishes to be discharged w/ Palliative Care for 6 weeks. If her pain can be managed then she will continue dialysis. If not, then she will transition to hospice care (3) CHF (congestive heart failure): Plan: * Resolved following HD * 04/21 Echocardiogram - LVEF 55-60%, mild LVH, mild MR * 05/21 Cardiac cath - no obstructive lesions (4) Hyperkalemia: Plan: * Resolved * Continue po Bumex to promote diuresis, kaliuresis * Continue Sodium Zirconium Cyclosilicate * PRP in am (5) Leukocytosis: Plan: * Leukocytosis resolved * Await blood and urine culture results (6) Confusion: Plan: * Avoid Hydrocodone * On Gabapentin 100 mg po TTS at 1700 hrs due to neuropathy Admission and Anticipated Discharge Date Admission Date: September 29, 2022 Subjective Mrs. Patrick was evaluated in her hospital room this morning. Her was at bedside. Mrs. Patrick was dialyzed yesterday without complication. She is anxious to return home. Review of Systems Constitutional: no fever Eyes: no problem reported Ear, Nose, Mouth, Throat: no problem reported Respiratory: + dyspnea; no cough and no sputum production Cardiovascular: no chest pain Gastrointestinal: no vomiting and no diarrhea/loose stools Physical Exam Constitutional: + overweight; not in distress Eyes: PERRL, conjunctivae normal, anicteric sclerae ENMT: external ear and nose normal, oropharynx normal Neck: trachea midline, no thyromegaly Respiratory: Auscultation: lungs clear to auscultation bilaterally and + rales (bilaterally) Cardiovascular: Rate/Rhythm: regular rate and regular rhythm Heart Sounds: no cardiac rub Extremities: + edema (trace pretibial edema) AVF + bruit Gastrointestinal (Abdomen): normal bowel sounds, soft, nontender, no hepatosplenomegaly Neurologic: awake; not confused Psychiatric: Affect: + anxious affect Results & Data Vital Signs (Past 12 Hours) Vital Signs Temp Pulse Pulse Pulse Resp BP Pulse Ox 10/02/22 07:37 36.7 C 73 20 210/79 H 98 10/02/22 02:31 36.7 C 70 18 199/76 H 98 10/01/22 23:51 36.5 C 70 195/73 H 96 10/01/22 23:00 66 O2 Del Method O2 Flow Rate 10/02/22 07:37 Nasal Cannula 4.0 10/02/22 02:31 Nasal Cannula 4 10/01/22 23:51 Nasal Cannula 4.0 10/01/22 23:00 Laboratory Results Laboratory Tests 10/02/22 10/02/22 06:11 06:11 WBC 9.39 Hgb 10.5 L Hct 33.1 L Plt Count 199 Sodium 137 Potassium 4.3 Chloride 100 Carbon Dioxide 27 BUN 33 H Creatinine 4.20 H D Glucose 111 H PG Care Time/CCT Total # of Minutes Spent Total Time Spent with Patient: Total time spent is greater than 50% in coordination of care (as documented) at patient's floor/unit and/or counseling patient: Coding Level of Care Code 54655 SUB INP/OBS CARE 3/50MIN Diagnoses Anemia D64.9 Anemia type: due to chronic kidney disease End-stage renal disease on hemodialysis N18.6; Z99.2 CHF (congestive heart failure) I50.21 Heart failure type: systolic Heart failure chronicity: acute Hyperkalemia E87.5 Leukocytosis D72.829 Leukocytosis type: unspecified Confusion R41.0 (1) Anemia Anemia type: due to chronic kidney disease (3) CHF (congestive heart failure) Heart failure type: systolic Heart failure chronicity: acute Qualified Code(s): I50.21 - Acute systolic (congestive) heart failure (5) Leukocytosis Leukocytosis type: unspecified Qualified Code(s): D72.829 - Elevated white blood cell count, unspecified
[2022-10-02] MEDS: INSULIN ASPART PER UNIT CHARGE SC SCH ×2 (09:29→12:19)
[2022-10-02] MEDS ORDERED: AMOXICILLIN/CLAVULANATE 500 MG TAB PO SCH (09:30)
[2022-10-02] MEDS: ACETAMINOPHEN 500 MG TAB PO PRN (10:32)
[2022-10-02] MEDS: SODIUM ZIRCONIUM CYCLOSILICATE 10 GM PACKET PO SCH (12:13)
[2022-10-02] MEDS: CEROVITE ADV FORMULA TAB PO SCH (12:19)
[2022-10-02] MEDS ORDERED: hydrALAZINE HCL 25 MG TAB PO SCH (14:00)
--- NOTE | 2022-10-02 15:56 | Discharge Summary ---
Date of Service October 02, 2022 Admission HPI Per Admitting Provider 77-year-old female is dialysis dependent cannot be awoken for typical dialysis session this morning by her she became slightly awake did not recognize her family about her reportedly her home oxygen saturations were in the 70s that she typically wears 3 L she was wearing oxygen with these low saturations. Upon presentation to the emergency department on nonrebreather she was 100%. The past she had encephalopathy associate with a UTI but this time it looks like she has a right lower lobe infiltrate on chest x-ray. Patient had cultures obtained and was given Zosyn in the emergency department patient also takes medication such as BuSpar and hydrocodone at home which could be altering her mental status. In the emergency department she had noncontrasted CT which was unremarkable for acute injury Situation arises where family states patient has a POLST form and wants to begin to refuse life-sustaining treatments however patient was sent to dialysis. When visiting the patient in dialysis she was not responsive answer questions. Her was in the room and although tearful said he wishes to support his 's decisions. Palliative care consult was undertaken at this time Principal Diagnosis metabolic encephalopathy Discharge Exam General: A&Ox3. NAD. Cooperative. HEENT: Atraumatic, normocephalic. Pulm: Bibasilar rales, lungs otherwise clear without wheezes. No respiratory distress. Cardiac: RRR, -mrg. Radial pulses intact and symmetrical. Abdominal: Nontender, nondistended, soft. BS present. Discharge Data Allergies Allergy/AdvReac Type Severity Reaction Status Date / Time lisinopril AdvReac Intermediate cough Verified 08/28/22 10:51 Consultations 09/29/22 06:13 ED Decision to Admit Stat 09/29/22 09:49 Consult Nephrology Routine 09/29/22 16:30 Consult Palliative Care Routine Ordered Studies 09/29/22 05:13 CT head/brain wo con Stat Hospital Course (1) Metabolic encephalopathy: Acute on admission, resolved Suspect due to aspiration pneumonia, may be multifactorial with home hydrocodone use Blood cultures negative CXR with right lower lobe infiltrate Patient continued on Zosyn. Reasonable to downgrade to Augmentin at discharge. Has had past UTIs with Belle, office strep, and Unasyn resistant E. coli - Discussion of POLST form and discontinuation of life-sustaining treatment undertaken with family, appreciate palliative care consult will complete course on augmentin. (2) End-stage renal disease on hemodialysis: Chronic typically stable when participating in treatment. End-stage renal disease typically on dialysis. She does still make urine and typically also takes Bumex 4 mg twice daily. Nephrology following for HD She typically is on potassium lowering agent a few times a week remains on calcium acetate vitamin D3 Appropriate uptrend in hemoglobin following transfusion /, up trended to 10.0 Patient will continue on HD for now.If pain is not improving, and quality of life continues to be poor, patient will transition from palliative care to hospice. (3) Diabetes mellitus: Patient has a history of diabetes which is diet controlled last hemoglobin A1c was 5.7 her glucose is slightly elevated on presentation therefore this is chronic unclear if controlled will evaluate if needing sliding scale insulin during his hospital stay (4) Coronary artery disease: Chronic and stable antihypertensive control with amlodipine hydralazine carvedilol secondary risk prevention with atorvastatin (5) Hypothyroidism: Chronic and stable maintain Synthroid therapy last TSH was checked in July and was replete (6) Depression with anxiety: Chronic and stable although unable to assess due to mental status changes on venlafaxine likely gabapentin also helps her mood (7) Obstructive sleep apnea: (8) Hypertension: Blood pressure is elevated but slightly improved. Patient will be discharged on higher regimen of hydralazine 75 mg PO TID. will continue amlodipine. Given that patient will have home hospice to monitor her vitals, will discharge patient. Concern that anxiety may be playing arole. If her blood pressure remains elevated or does not improve by being home, patient may either need to see PCP soon, or return to ED, Total Time Total Time Spent Total Time Spent (In Minutes): 32 Discharge Plan Discharge Items Patient Disposition: Hospice - Home Reason For Visit: ENCEPHALOPATHY, PNEUMONIA Discharge Diagnosis: Pneumonia Activity: Resume your previous activity Non-emergency contact: Primary Care Provider Call non-emergency contact if: you have any medication questions Follow-up/Referrals: Julito Burt MD [Primary Care Provider] - Diet: Dialysis Renal Addtl Attending Provider Instructions: Do not take hydralazine before dialysis. In regards to your hydralazine, please take 75 mg three times a day. If you have 50mg tablets at home, you can cut them in half. For example: take 1 full tablet and one half tablet so that would equal 75 mg. TWe will prescribe you 7 more doses of augmentin. You will continue gabapentin but at a lower dose. WE WILL STOP PRIMIDONE AND HYDROCODONE. We will have you followup with home hospice palliative care and monitor your improvement. Recommend followup with PCP in 1-2 weeks. Pending Studies at Discharge: No Stand-Alone Forms: My [facility] Medications and DC Order Prescriptions: New hydralazine 25 mg Tablet 75 mg PO TID 30 Days Qty: 270 0RF amoxicillin-pot clavulanate 500-125 mg Tablet 1 tab PO BID Qty: 7 0RF acetaminophen 325 mg Tablet 650 mg PO QID 30 Days Qty: 240 0RF gabapentin 100 mg Capsule 100 mg PO TuThSa@1700 30 Days Qty: 13 0RF Continued (DME) lancets [OneTouch Delica Lancets] [facility] See Rx Instructions .ROUTE .MEDSUPPLY Qty: 100 3RF Rx Instructions: use to test twice daily (DME) OneTouch Verio test strips Strip See Rx Instructions .ROUTE .MEDSUPPLY Qty: 300 3RF Rx Instructions: test twice daily E11.9 (DME) blood-glucose meter [OneTouch Verio Meter] Misc See Rx Instructions .ROUTE .MEDSUPPLY Qty: 1 0RF Rx Instructions: As directed E11.9 buspirone 5 mg tablet 5 mg PO BID cholecalciferol (vitamin D3) 50 mcg (2,000 unit) capsule 50 mcg PO DAILY Qty: 90 3RF ondansetron 8 mg tablet,disintegrating 8 mg PO Q8H PRN (Reason: Nausea) Qty: 90 5RF levothyroxine 100 mcg tablet 100 mcg PO QPM Qty: 90 3RF pantoprazole 40 mg tablet,delayed release (DR/EC) 40 mg PO BID 90 Days Qty: 180 3RF venlafaxine 75 mg capsule,extended release 24hr 75 mg PO DAILY Qty: 90 3RF carvedilol [Coreg] 12.5 mg tablet 12.5 mg PO BID Qty: 180 3RF amlodipine 10 mg tablet 10 mg PO DAILY Qty: 90 3RF lactulose 10 gram/15 mL solution 15 ml PO DAILY PRN (Reason: Constipation) Qty: 1350 3RF atorvastatin 20 mg tablet 20 mg PO HS Qty: 90 3RF Hold Instructions: muscle pain Lokelma 5 gram powder in packet 5 g PO 4XWK Rx Instructions: SunMonWedFri. Ordered daily pt only takes 4 days a week due to diarrhea. (DME) Oxygen Home Liters Per Minute See Rx Instructions .ROUTE .MEDSUPPLY Qty: 1 0RF Rx Instructions: 3 liters continuously CPAP Supplies Misc See Rx Instructions .ROUTE .COMPLEX Qty: 1 0RF Rx Instructions: Tubing, mask, filters and supplies for the patient's BiPAP 05/06. Lifetime need, [facility]; polyethylene glycol 3350 [Miralax] 17 gram/dose powder 17 g PO DAILY Qty: 510 2RF bumetanide 2 mg tablet 4 mg PO BID Rx Instructions: GETS FROM DIALYSIS CLINIC ProRenal 8 mg iron-800 mcg-1,000 unit tablet 1 tab PO QDL calcium acetate 667 mg Tablet 667 mg PO UD Rx Instructions: 1 cap with every meal and 1 cap with snacks Discontinued primidone 50 mg tablet 50 mg PO HS Qty: 10 0RF hydralazine 50 mg tablet 50 mg PO TID Qty: 270 2RF Rx Instructions: does not take prior to HD gabapentin 300 mg capsule 300 mg PO 3XWK Qty: 48 1RF Rx Instructions: Wednesday, , wednesday after dialysis hydrocodone-acetaminophen 5-300 mg tablet 1 tab PO BID PRN (Reason: pain) Qty: 40 0RF acetaminophen [Tylenol Extra Strength] 500 mg Tablet 1,000 mg PO Q6H PRN (Reason: Pain) Discharge Orders: Discharge Order (Routine); Ordered 10/02/22 Ordered By: Arian Suarez Admission Data Admit Date/Time: 09/29/22 07:36 Attending Provider: Arian Suarez Admit Provider: Savage Dial Primary Care Provider: Julito Burt Other Providers: Savage Dial ; Hugo Patrick ; Connie Mcgraw ; [facility] Coding Level of Care Code 31513 INP/OBS DISCH >30 MIN Diagnoses Metabolic encephalopathy G93.41 End-stage renal disease on hemodialysis N18.6; Z99.2 Diabetes mellitus E11.22; N18.6; Z79.4; Z99.2 Diabetes mellitus type: type 2 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 transplanted heart: [place] heart Associated angina: without angina Hypothyroidism E03.9 Hypothyroidism type: unspecified Depression with anxiety F41.8 Obstructive sleep apnea G47.33 Hypertension I10
[2022-10-02] MEDS ORDERED: ACETAMINOPHEN 325 MG TAB PO SCH (17:00)
== END 2022-10-02 16:49 | disposition hospice, home (50) | DRG 177 ==
LOC: ED 04:36 → SUATTDRO 07:36 → 2S 07:36

== ENCOUNTER 2023-08-17 08:46 | Inpatient (IN) ==
--- NOTE | 2023-08-17 09:09 | Emergency Department Note ---
Impression & Plan Acute respiratory failure with hypoxia and hypercarbia, AMS (altered mental status), Leukocytosis, Metabolic acidosis, Elevated troponin ED Provider Note NAME: LITO MOHR AGE: 78 SEX: F : 1945 ARRIVES VIA: Ambulance INFORMANT: Patient, EMS ED PROVIDER(S): Carlos Singh DO CHIEF COMPLAINT: Confusion HPI: Patient is a 78-year-old female with a past medical history of COPD chronically on 3 L, dialysis Wednesday, , Wednesday, depression, anxiety, altered mental status who presents the ER for lethargy. Patient received a full course of dialysis and was very lethargic prior to dialysis. Following this she was difficult to arouse and was sent in here. Patient notes that she has been very weak and tired. She denies pain with the exception of the IV placement. History is otherwise limited as she is very lethargic. ADDITIONAL HISTORY OBTAINED: Per HPI Chronic Medical/Social Conditions Affecting Care: Per HPI PAST MEDICAL HISTORY:See Below PAST SURGICAL HISTORY:See Below FAMILY HISTORY:See Below SOCIAL HISTORY:See Below HOME MEDICATIONS:See Below ALLERGIES:See Below VITALS:See Below PHYSICAL EXAMINATION: GENERAL: Sitting up in bed, alert, chronically ill-appearing, disheveled EYE EXAM: normal conjunctiva. PERRL and EOM's grossly intact. OROPHARYNX: mucous membranes are moist NECK: supple, no nuchal rigidity, no adenopathy, non-tender LUNGS: Clear to auscultation. Normal chest wall mechanics HEART: no murmurs, S1 normal and S2 normal ABDOMEN: abdomen soft, non-tender, normo-active bowel sounds, no masses, no rebound or guarding. UPPER EXTREMITIES: Positive thrill and bruit and right upper extremity LOWER EXTREMITIES: No pitting edema. NEURO EXAM: Lethargic with eyes closed unresponsive but wakens to a soft touch of the chest. Moves all extremities. Nonfocal. Oriented to person and place but not year MEDICAL DECISION MAKING: Patient is a 78-year-old female with a past medical history of COPD, altered mental status on hospice for additional help per family and is a DNR/DNI who presents the ER for altered mental status. IV was established and was obtained. Family is concerned that the patient has a UTI as she was having urinary symptoms. Labs show leukocytosis of 19,000. Mild anemia 10. VBG with a pH of 7.22 and a CO2 of 86. Patient was placed on BiPAP. BMP with creatinine of 4 and slightly elevated troponin at 30 which I favor secondary to the chronic kidney disease. Patient was given IV antibiotics discussed with hospitalist admitted for further workup. Patient remained on BiPAP while in the ER. Patient has no complaints at this time. Consults/Care Managements Discussions: Per MDM Triage Nursing notes reviewed. Limited review of prior medical records performed Vital Signs: reviewed and remarkable for no significant abnormalities Differential diagnosis: Differential diagnoses includes but is not limited to toxic, metabolic, infectious, traumatic, cardiac, neurologic, hematologic, psychiatric and inflammatory etiologies. ER treatment provided: See below Diagnostics interpreted by me include EKG and cardiac monitoring as listed below: -Cardiac Monitoring: An order was placed for continuous cardiac monitoring. The monitor shows a rate of 82 with sinus rhythm. -ECG: Sinus rhythm rate of 79 First-degree AV block Left axis No PVCs QTc 454 -Laboratory studies:Interpreted by me as stated above in MDM and shown below. Imaging studies: Xrays: As interpreted by me: Portable AP upright 1 view of the chest shows no focal infiltrate CTs show: none Procedures:none Critical Care: I have personally spent 32 minutes of critical care time in the direct management of this patient. This includes bedside care, interpretation of diagnostic studies, and testing, discussion with consultants, patient, and family members, and other required patient management activities. This 32 minutes is in excess of all separately billable procedures. 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 Acute hyperkalemia Hyperkalemia, diminished renal excretion End-stage renal disease on hemodialysis Laceration of left lower extremity Hernia, hiatal Depression with anxiety Diabetic retinopathy Dyslipidemia GERD without esophagitis Insomnia Macular puckering, bilateral Obstructive sleep apnea Panniculitis Paresthesias Polyarthritis Tubular adenoma of colon Vitamin D deficiency Hypothyroidism Coronary artery disease Anemia Diabetes mellitus Hypertension History of thrombophlebitis Arthritis Surgical History History of tonsillectomy S/P repair of paraesophageal hernia History of nasal septoplasty History of cataract surgery History of bladder surgery S/P arteriovenous (AV) fistula creation S/P rotator cuff repair S/P hysterectomy H/O: hysterectomy Family History Mother Leukemia Cerebral aneurysm Hypertension Anxiety Diabetes Cancer Heart disease Grandmother Hypertension Father Osteoarthritis COPD (chronic obstructive pulmonary disease) Diabetes Hearing loss Sister Diabetes Myocardial infarction COPD (chronic obstructive pulmonary disease) Hypertension Brother Myocardial infarction Diabetes Cancer Stomach cancer Other No family history of bleeding disorder Denies family history of Ovarian cancer Prostate cancer Breast cancer Colorectal cancer Stroke Asthma Social History Smoking Status: Unknown if ever smoked Second Hand Exposure: No; Do You Dip or Chew Tobacco: No; Hx Alcohol Use: No Hx Substance Use: No Preferred Language: Turkmen Communication Ability: Impaired Visual Impairment: No Limitations Hearing Ability: Normal Telephoner Required: No Beliefs That Will Affect Care: None marital status: Current Living Situation: Spouse Current Living Situation Comment: Home w/spouse current occupational status: retired How many Children do You have: 1 Feels Safe at Home: Yes Dental Care, Regularly: No Physical Activity Frequency: 1-2 Times per Week Seatbelt Use: always Assistive Devices: Oxygen - Continuous, Walker and Wheelchair Allergies Allergies Allergy/AdvReac Type Severity Reaction Status Date / Time lisinopril AdvReac Intermediate cough Verified 07/27/23 15:01 Home Meds Home Medications Medication Instructions Recorded Confirmed vit B complx, C-iron 8 mg-folic 1 tab PO QDL 02/27/20 08/17/23 acid 800 mcg-D3 1,000 unit-zinc tablet (ProRenal) calcium acetate 667 mg tablet 667 mg PO UD 12/17/20 08/17/23 sodium zirconium cyclosilicate 5 5 g PO 4XWK 03/25/22 08/17/23 gram oral powder packet (Lokelma) Antibiotic See Rx Instructions .Route .COMPLEX 08/17/23 08/17/23 Previous Rx's Medication Instructions Recorded lancets 33 gauge (Mola.comTouch Delica #100 ea 11/27/20 Lancets) blood sugar diagnostic (Mola.comTouch #300 ea 07/31/22 Verio test strips) blood-glucose meter (OneTouch #1 ea 07/31/22 Verio Meter) cholecalciferol (vitamin D3) 50 50 mcg PO DAILY #90 caps 07/31/22 mcg (2,000 unit) capsule ondansetron 8 mg disintegrating 8 mg PO Q8H PRN Nausea #90 tabs 07/31/22 tablet CPAP Supplies See Rx Instructions .Route 08/21/22 .COMPLEX #1 ea Oxygen Home E0424 #1 ea 09/04/22 CPAP Machine See Rx Instructions .Route 12/09/22 .COMPLEX #1 ea amlodipine 10 mg tablet 10 mg PO DAILY #90 tabs 07/28/23 carvedilol 12.5 mg tablet (Coreg) 12.5 mg PO BID #180 tabs 08/03/23 levothyroxine 100 mcg tablet 100 mcg PO QPM #90 tabs 08/03/23 pantoprazole 40 mg tablet,delayed 40 mg PO BID 90 days #180 tabs 08/03/23 release polyethylene glycol 3350 17 17 g PO DAILY #510 grams 08/03/23 gram/dose oral powder (Miralax) venlafaxine 75 mg capsule,extended 75 mg PO DAILY #90 caps 08/03/23 release 24 hr buspirone 5 mg tablet 5 mg PO BID #180 tabs 08/13/23 gabapentin 300 mg capsule 300 mg PO 3XWK #36 caps 08/13/23 lactulose 10 gram/15 mL oral 15 ml PO DAILY PRN Constipation 08/13/23 solution #1,350 mL Results & Data (ED) Vital Signs Vital Signs - 24 hr 08/17/23 09:20 08/17/23 09:20 08/17/23 10:09 Temperature 36.9 C Temperature Source Axillary Pulse Rate 81 75 Respiratory Rate 20 18 Respiratory Effort / Characteristics Non-Labored Non-Labored Spontaneous Respiratory Depth Normal Normal Respiratory Pattern Regular Blood Pressure 100/32 L Blood Pressure Mean 54 Pulse Oximetry 97 98 96 Oxygen Delivery Method Nasal Cannula Nasal Cannula Oxygen Flow Rate 3 3 Fraction of Inspired Oxygen 30 Sepsis Recent Fever Within 48 Hours No Sepsis New/Unexplained Change in Mental Status No Sepsis Action Taken by Nursing No Action Required Laboratory Data 08/17/23 09:30 08/17/23 09:30 Lab Results 08/17/23 Range/Units 09:30 WBC 19.04 H (4.8-10.8) K/ul RBC 3.31 L (4.20-5.40) M/uL Hgb 10.5 L (12.0-16.0) g/dl Hct 34.9 L (37.0-47.0) % MCV 105.4 H (80.0-100.0) fL MCH 31.7 (25.0-34.0) pg MCHC 30.1 L (32.0-36.0) g/dL RDW Std Deviation 57.4 H (36.4-46.3) fL RDW Coeff of Jared 15.0 H (11.5-14.5) % Plt Count 179 (130-400) K/uL MPV 9.9 (9.4-12.4) fL Immature Gran % (Auto) 1.2 % Neut % (Auto) 81.4 % Lymph % (Auto) 7.1 % Rains % (Auto) 9.3 % Eos % (Auto) 0.5 % Baso % (Auto) 0.5 % Neut # (Auto) 15.50 H (1.40-6.50) K/uL Lymph # (Auto) 1.36 (1.20-3.40) K/uL Rains # (Auto) 1.77 H (0.11-0.59) K/uL Eos # (Auto) 0.09 (0.00-0.50) K/uL Baso # (Auto) 0.09 (0.00-0.20) K/uL Immature Gran # (Auto) 0.23 H (0.01-0.20) K/uL Absolute Nucleated RBC 0.03 (0.00-0.12) K/uL Nucleated RBC % (auto) 0.2 % PT 11.6 (9.0-12.0) Seconds INR 1.1 (0.9-1.1) VBG pH 7.22 L (7.36-7.41) VBG pCO2 86 H (38-50) mmHg VBG pO2 27 mmHg VBG HCO3 35 mmol/L VBG O2 Saturation < 60.0 % VBG Base Excess 4.5 mEq/L Sodium 135 L (136-145) mmol/L Potassium 5.3 H (3.5-5.1) mmol/L Chloride 93 L (98-107) mmol/L Carbon Dioxide 33 H (21-32) mmol/L Anion Gap 9 (3-11) BUN 28 H (6-23) mg/dl Creatinine 4.52 H* (0.6-1.2) mg/dl Est Cr Clr Drug Dosing Not Reportable Est GFR ( Amer) 10.1 ml/min Est GFR (Non-Af Amer) 8.7 ml/min BUN/Creatinine Ratio 6.2 L (10-20) Glucose 188 H (70-99(Fasting)) mg/dl Calcium 8.5 L (8.6-10.3) mg/dl Total Bilirubin 0.7 (0.2-1.0) mg/dl AST 27 (13-39) U/L ALT 16 (7-52) U/L Alkaline Phosphatase 132 H (34-104) U/L Ammonia 19.0 (18-72) umol/L Troponin I High Sens 30.6 H (0-14) pg/ml Total Protein 8.0 (6.0-8.3) gm/dl Albumin 3.9 (3.4-5.0) gm/dl Globulin 4.1 H (2.5-4.0) gm/dl Albumin/Globulin Ratio 1.0 (0.9-2) Lipase 26 (11-82) U/L Administered Medications Albuterol (Albut/Ipratrop 3mg/0.5mg Neb 3 Ml Vial) 3 ml NEB QIDR ENRIQUETA; Protocol Stop: 09/16/23 14:59 Last Admin: 08/17/23 14:55 Dose: 3 ml Documented By: SERGIO Insulin Aspart (Insulin Aspart Per Unit Charge) 0 units SC ACHS [facility] Stop: 09/16/23 11:29 Last Admin: 08/17/23 13:14 Dose: Not Given Documented By: CIRILO Co-signed By: MT Discontinued Medications Ceftriaxone Sodium (Rocephin) 1,000 mg in 50 mls @ 100 mls/hr IV NOW STA Stop: 08/17/23 10:26 Last Infusion: 08/17/23 12:38 Dose: Infused Documented By: Admin: 08/17/23 10:26 Dose: 100 mls/hr Documented By: MEAGAN Vancomycin HCl 1,750 mg/ (Sodium Chloride) 535 mls @ 200 mls/hr IV ONE ONE Stop: 08/17/23 13:55 Last Infusion: 08/17/23 15:31 Dose: Infused Documented By: Admin: 08/17/23 12:39 Dose: 200 mls/hr Documented By: CIRILO Discharge Plan Visit Data Chief Complaint: Illness Stated Complaint: ILLNESS ED Provider: Carlos Singh Discharge Problem: Acute respiratory failure with hypoxia and hypercarbia, AMS (altered mental status), Leukocytosis, Metabolic acidosis, Elevated troponin Patient Disposition: Admitted As Inpatient Discharge Instructions Interventions: ED Discharge Assessment Last Done: 08/17/23 11:30 Discharge Problem: AMS (altered mental status) Qualifiers: Altered mental status type: unspecified Qualified Code(s): R41.82 - Altered mental status, unspecified Leukocytosis Qualifiers: Leukocytosis type: unspecified Qualified Code(s): D72.829 - Elevated white blood cell count, unspecified
[2023-08-17 09:50] LABS: Base Excess VBG 4.5 mEq/L; HCO3 VBG 35 mmol/L; Oxygen Saturation VBG < 60.0 %; PCO2 VBG 86 mmHg (38-50); PO2 VBG 27 mmHg; pH VBG 7.22 (7.36-7.41)
[2023-08-17 09:56] LABS: Basophils # (auto) 0.09 K/uL (0.00-0.20); Basophils % (auto) 0.5 %; Eosinophils # (auto) 0.09 K/uL (0.00-0.50); Eosinophils % (auto) 0.5 %; Hematocrit (blood only) 34.9 % (37.0-47.0); Hemoglobin 10.5 g/dl (12.0-16.0); Immature Granulocytes # (auto) 0.23 K/uL (0.01-0.20); Immature Granulocytes % (auto) 1.2 %; Lymphocytes # (auto) 1.36 K/uL (1.20-3.40); Lymphocytes % (auto) 7.1 %; Mean Corpuscular Hemoglobin 31.7 pg (25.0-34.0); Mean Corpuscular Hgb Conc 30.1 g/dL (32.0-36.0); Mean Corpuscular Volume 105.4 fL (80.0-100.0); Mean Platelet Volume 9.9 fL (9.4-12.4); Monocytes # (auto) 1.77 K/uL (0.11-0.59); Monocytes % (auto) 9.3 %; Neutrophils % (auto) 81.4 %; Nucleated RBC # (auto) 0.03 K/uL (0.00-0.12); Nucleated RBC % (auto) 0.2 %; Platelet Count 179 K/uL (130-400); RDW Standard Deviation 57.4 fL (36.4-46.3); Red Blood Count 3.31 M/uL (4.20-5.40); White Blood Count 19.04 K/ul (4.8-10.8)
[2023-08-17 10:17] LABS: Alanine Aminotransferase 16 U/L (7-52); Albumin Level 3.9 gm/dl (3.4-5.0); Alkaline Phosphatase 132 U/L (34-104); Anion Gap 9 (3-11); Aspartate Aminotransferase 27 U/L (13-39); BUN Creatinine Ratio 6.2 (10-20); Bilirubin,Total 0.7 mg/dl (0.2-1.0); Blood Urea Nitrogen 28 mg/dl (6-23); Calcium 8.5 mg/dl (8.6-10.3); Carbon Dioxide 33 mmol/L (21-32); Chloride 93 mmol/L (98-107); Est GFR (African American) 10.1 ml/min; Est GFR (Non-African American) 8.7 ml/min; Globulin 4.1 gm/dl (2.5-4.0); Glucose 188 mg/dl (70-99(Fasting)); Lipase 26 U/L (11-82); Potassium 5.3 mmol/L (3.5-5.1); Sodium 135 mmol/L (136-145)
[2023-08-17 10:21] LABS: INR 1.1 (0.9-1.1); Prothrombin Time 11.6 Seconds (9.0-12.0)
[2023-08-17 10:22] LABS: Troponin I High Sensitivity 30.6 pg/ml (0-14)
[2023-08-17] MEDS: cefTRIAXone SODIUM 1,000 MG/50 ML BAG IV STA (10:26)
[2023-08-17] MEDS ORDERED: VANCOMYCIN CONSULT ACTIVE PRN (10:41)
[2023-08-17] MEDS ORDERED: GLUCOSE 40% GEL 15 GM TUBE PO PRN (10:43)
[2023-08-17] MEDS ORDERED: GLUCAGON FOR INJ 1 MG VIAL SQ PRN (10:43)
[2023-08-17] MEDS ORDERED: CARBOHYDRATES FOR HYPOGLYCEMIA PO PRN (10:43)
[2023-08-17] MEDS ORDERED: DEXTROSE 50% 50 ML SYRINGE IV PRN (10:43)
[2023-08-17] MEDS ORDERED: GLUCOSE 10 TAB/TUBE PO PRN (10:43)
--- NOTE | 2023-08-17 10:57 | History & Physical Report ---
Date of Service August 17, 2023 Assessment & Plan (1) Acute hypercapnic respiratory failure: Plan: Assessment: 1. Acute hypercapnic hypoxemic respiratory failure with a history of chronic hypoxemic respiratory failure she is she is 3 L oxygen dependent at home contin uously. We will order nebulizers. No steroids at this time I do not appreciate any wheezing. She is on BiPAP support at this time we will reanalyze ABGs and make further recommendations pending further testing. 2. Acute metabolic encephalopathy multifactorial-due to hypercapnia, due to UTI, due to possible sepsis with hypotension blood cultures obtained. Monitor carefully. 3. Urinary tract infection continue to treat with Rocephin and await cultures. 4. Early clinical sepsis with hypotension being a dialysis patient we will go ahead and not completely volume resuscitate her blood pressure has been low but stable she is beginning to mentate at this time. Will cover her with vancomycin and Rocephin given her high risk for bacteremia. In addition a stat lactic acid levels been ordered. 5. Rule out bacteremia blood cultures were obtained stat. 6. Diabetes mellitus-insulin sliding scales been ordered diabetic diet/renal diet. 7. Chronic debility typically ambulates with a walker. PT has been consulted. 8. History of COPD no brynn exacerbation. 9. End-stage renal disease hemodialysis dependent. 10. Anemia of chronic disease stable. 11. Gastroesophageal reflux disease continue home meds. 12. History of hypertension we will hold antihypertensives at this time. 13. Hypothyroidism continue home medication check TSH in the morning. 14. History of obstructive sleep apnea she does wear CPAP at home she is uncertain of her pressures. Will order CPAP for tonight here. 15. DNR/DNI status as discussed above. Plan: As discussed above. Please refer to orders for further planning. 42 minutes of critical care time spent in the management and clinical coronation care of this patient today with acute hypercapnic hypoxemic respiratory failure with a history of chronic respiratory failure critical care time spent independent of any other time any other provider with clinical sepsis with relative hypotension as well. History of Present Illness Chief Complaint: Altered mental status. Primary Care Provider: Julito Burt MD This is a 78-year-old female who with end-stage renal disease hemodialysis dependent every Wednesday. Last Wednesday she began to have increased weakness and increased confusion and altered mentation. She was diagnosed with urinary tract infection and started on oral antibiotic we are uncertain as to which 1. She went to dialysis today had a full treatment. However dialysis she was very sleepy/"lethargic" she was directed to the ER for further evaluation and treatment. In the ER she was found to have a white count of 19,000 hemoglobin of 10.5 which is approximately her baseline he was found to have hypercarbia with a CO2 of 86 with a pH of 7.22 blood glucose was satisfactory at 188 other electrolytes were unremarkable troponin was elevated at 30.6 which is somewhat chronic for this patient will recheck a troponin. EKG demonstrated normal sinus rhythm with no acute ST-T abnormalities unchanged from previous reading. Course in the ER she was placed on BiPAP and was given a gram of IV Rocephin. We were called admit the patient for further evaluation and treatment. The patient is a hospice patient but wants full treatment short of cardiopulmonary resuscitation. This was confirmed bedside by the ER provider prior to contacting has not been reconfirmed bedside with me with the patient and the patient's daughter at the bedside. Therefore at this time we have ordered stat blood cultures she is a dialysis patient she is at high risk for bacteremia she has a white count of 20,000 we will order stat lactic acid a stat repeat troponin. Will do stat ABGs and adjust the BiPAP accordingly. Allergies Allergy/AdvReac Type Severity Reaction Status Date / Time lisinopril AdvReac Intermediate cough Verified 07/27/23 15:01 Home Medications Medication Instructions Recorded Confirmed Type vit B complx, C-iron 8 mg-folic 1 tab PO QDL 02/27/20 07/27/23 History acid 800 mcg-D3 1,000 unit-zinc tablet (ProRenal) lancets 33 gauge ([employer] Delica #100 ea 11/27/20 07/27/23 Rx Lancets) calcium acetate 667 mg tablet 667 mg PO UD 12/17/20 07/27/23 History sodium zirconium cyclosilicate 5 5 g PO 4XWK 03/25/22 07/27/23 History gram oral powder packet (Lokelma) blood sugar diagnostic ([employer] #300 ea 07/31/22 07/27/23 Rx Verio test strips) blood-glucose meter ([employer]uch #1 ea 07/31/22 07/27/23 Rx Verio Meter) cholecalciferol (vitamin D3) 50 50 mcg PO DAILY #90 caps 07/31/22 07/27/23 Rx mcg (2,000 unit) capsule ondansetron 8 mg disintegrating 8 mg PO Q8H PRN Nausea #90 tabs 07/31/22 07/27/23 Rx tablet CPAP Supplies See Rx Instructions .Route 08/21/22 07/27/23 Rx .COMPLEX #1 ea Oxygen Home E0424 #1 ea 09/04/22 07/27/23 Rx CPAP Machine See Rx Instructions .Route 12/09/22 07/27/23 Rx .COMPLEX #1 ea amlodipine 10 mg tablet 10 mg PO DAILY #90 tabs 07/28/23 Rx carvedilol 12.5 mg tablet (Coreg) 12.5 mg PO BID #180 tabs 08/03/23 Rx levothyroxine 100 mcg tablet 100 mcg PO QPM #90 tabs 08/03/23 Rx pantoprazole 40 mg tablet,delayed 40 mg PO BID 90 days #180 tabs 08/03/23 Rx release polyethylene glycol 3350 17 17 g PO DAILY #510 grams 08/03/23 Rx gram/dose oral powder (Miralax) venlafaxine 75 mg capsule,extended 75 mg PO DAILY #90 caps 08/03/23 Rx release 24 hr buspirone 5 mg tablet 5 mg PO BID #180 tabs 08/13/23 Rx gabapentin 300 mg capsule 300 mg PO 3XWK #36 caps 08/13/23 Rx lactulose 10 gram/15 mL oral 15 ml PO DAILY PRN Constipation 08/13/23 Rx solution #1,350 mL Past Med/Surg History Medical History Diabetic eyes COPD, 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 Weakness generalized Counseling regarding advanced directives and goals of care Palliative care by specialist Acute UTI Hallucinations Fatigue Abnormal EKG Acute electrocardiogram changes Transaminitis Elevated troponin Anxiety Depression Myoclonus Type 2 diabetes mellitus with diabetic neuropathy Acute hyperkalemia Hyperkalemia, diminished renal excretion End-stage renal disease on hemodialysis Laceration of left lower extremity Hernia, hiatal Depression with anxiety Diabetic retinopathy Dyslipidemia GERD without esophagitis Insomnia Macular puckering, bilateral Obstructive sleep apnea Panniculitis Paresthesias Polyarthritis Tubular adenoma of colon Vitamin D deficiency Hypothyroidism Coronary artery disease Anemia Diabetes mellitus Hypertension History of thrombophlebitis Arthritis Surgical History History of tonsillectomy S/P repair of paraesophageal hernia History of nasal septoplasty History of cataract surgery History of bladder surgery S/P arteriovenous (AV) fistula creation S/P rotator cuff repair S/P hysterectomy H/O: hysterectomy Family History Mother Leukemia Cerebral aneurysm Hypertension Anxiety Diabetes Cancer Heart disease Grandmother Hypertension Father Osteoarthritis COPD (chronic obstructive pulmonary disease) Diabetes Hearing loss Sister Diabetes Myocardial infarction COPD (chronic obstructive pulmonary disease) Hypertension Brother Myocardial infarction Diabetes Cancer Stomach cancer Other No family history of bleeding disorder Denies family history of Ovarian cancer Prostate cancer Breast cancer Colorectal cancer Stroke Asthma Social History Smoking Status: Unknown if ever smoked Second Hand Exposure: No; Do You Dip or Chew Tobacco: No; Hx Alcohol Use: No Hx Substance Use: No Preferred Language: Libyan Communication Ability: Impaired Visual Impairment: No Limitations Hearing Ability: Normal Outreach Clinician Required: No Beliefs That Will Affect Care: None marital status: Current Living Situation: Spouse Current Living Situation Comment: Home w/spouse current occupational status: retired How many Children do You have: 1 Feels Safe at Home: Yes Dental Care, Regularly: No Physical Activity Frequency: 1-2 Times per Week Seatbelt Use: always Assistive Devices: Oxygen - Continuous, Walker and Wheelchair Review of Systems Review of Systems: A 10 point review of system was obtained and unless otherwise stated here or in history of present illness are negative and noncontributory to chief complaint. Physical Exam Physical Exam: In General: In general this is a pleasant 78-year-old female who is alert and oriented to person and place at this point she is not completely alert to time. She is accompanied by her daughter at the time of my examination. HEENT: Normocephalic atraumatic pupils are equal round and reactive to light bilaterally. No scleral icterus no conjunctival injection external auditory canals are patent septum is in the midline nose is without discharge oral mucosa is pink and moist without lesion. NECK: Supple no rigidity no lymphadenopathy no thyromegaly no carotid bruits no JVD no masses. HEART: Regular rate and rhythm I do not appreciate any ectopy or rub. No murmur. LUNGS: Clear to auscultation bilaterally and anteriorly with no evidence of adventitious sounds/wheezes rales or rhonchi. ABDOMEN: Soft nontender, no rebound, no peritoneal signs, positive bowel sounds, no appreciable organomegaly. EXTREMITIES: Intact, no peripheral cyanosis, clubbing or edema. Strength is decreased globally. Right upper extremity forearm AV fistula with good palpable thrill is noted. NEUROLOGICAL: Patient unable to fully cooperate with cranial nerve exam given her weakness and debility here. However no gross focal deficit on command she does move her extremities on command. Results & Data Results & Data Vital Signs (Past 12 Hours) Vital Signs Temp Pulse Resp BP Pulse Ox O2 Del Method O2 Flow Rate 08/17/23 10:09 75 18 96 08/17/23 09:20 98 Nasal Cannula 3 08/17/23 09:20 36.9 C 81 20 100/32 L 97 Nasal Cannula 3 FiO2 08/17/23 10:09 30 08/17/23 09:20 08/17/23 09:20 Code Status & VTE Plan Code Status DO NOT RESUSCITATE/DO NOT INTUBATE. Personally discussed with patient and daughter. She once wishes to continue to be a hospice patient but wants all treatment short of cardiopulmonary resuscitation. VTE Prophylaxis Plan VTE Prophylaxis will be ordered: Yes PG Care Time/CCT Total # of Minutes Spent Total Time Spent with Patient: Total time spent is greater than 50% in coordination of care (as documented) at patient's floor/unit and/or counseling patient: 42 minutes of critical care time spent in the management and clinical coronation care of this patient today with acute hypercapnic hypoxemic respiratory failure with a history of chronic respiratory failure critical care time spent independent of any other time any other provider with clinical sepsis with relative hypotension as well. Coding Level of Care Code 70804 INT INP/OBS CARE MIN Diagnoses Acute hypercapnic respiratory failure J96.02 Time Spent (min) 42 Comment Critical care time
[2023-08-17 11:06] LABS: Allen Test Pos (Pos); Base Excess ABG 8.1 mEq/L (-9-1.8); HCO3 ABG 35 mmol/L (19-24); Oxygen Saturation ABG 93.4 % (90-95); PCO2 ABG 57 mmHg (35-46); PO2 ABG 68 mmHg (80-95); pH ABG 7.39 (7.35-7.45)
[2023-08-17] MEDS ORDERED: ALBUTEROL 0.083% NEBU SOLN 3 ML VIAL NEB PRN (11:12)
--- NOTE | 2023-08-17 11:37 | Nephrology Consultation ---
Date of Consultation August 17, 2023 Assessment & Plan (1) End-stage renal disease on hemodialysis: (2) AMS (altered mental status): (3) Weakness generalized: (4) Anemia: (5) Acute UTI: Plan 78-year-old female with ESKD, on hemodialysis Wednesday, , Wednesday, admitted lethargy and change in mental status possibly secondary to recurrent urinary tract infection. Had complete dialysis session this morning, had 3 L UF, left close to her dry weight. Brought to ER after dialysis with lethargy and change in mental status and concern for recurrent urinary tract infection. Started empirically with vancomycin and ceftriaxone and already started to respond better and feeling better. Labs are all at goal, potassium borderline elevated at 5.3. Volume status acceptable. Blood pressure well-controlled. -- continue to monitor electrolyte and volume status and tentatively keep on schedule for dialysis . Continue on renal diet, avoid potassium supplement. --Dose medications for EGFR less than 10, continue empiric antibiotic for presumed UTI --Renal vitamins daily Thank you for allowing me to participate in your patient's care. It was a pleasure to see Shirley. History of Present Illness Reason for Consultation: ESRD, on HD, admitted with AMS Attending Physician: Andrei Stevens, PhD, DO History of Present Illness Ms. Shirley Patrick is a 78 year-old female with PMH of ESRD due to diabetic kidney disease,AODM, HTN, ASCVD, hypothyroidism, GERD, RLS, and recurrent UTI, a dmitted with AMS possibly secondary to UTI. Nephrology consult requested for management of HD while in patient. EMr records were reviewed in detail during visit, daughter Oscar was at bedside. Julieta had routine HD this morning and ptrior to the start of HD treatment she was somewhat lethargic but vitals signs were acceptable and she completed the full treatment. At the end of the HD, BP was acceptable and she was sightly above her EDW but she was more lethargic and somnolent. She did not have any F/C, SOB, CP. was then sent to ER via EMS for further evaluation. To the daughter, yesterday home health nurse was concerned that she may be having UTI as generally she becomes somewhat lethargic every time she has UTI but does not have typical symptoms of dysuria or fever and she was given 1 dose of oral antibiotic yesterday. In ER vital signs are stable. Chest x-ray was unremarkable. Troponin was just slightly elevated. Did not have any chest pain. Labs notable for leukocytosis, hemoglobin 10.5, potassium elevated at 5.3 but other electrolyte acceptable. She was empirically started on ceftriaxone and vancomycin pending blood and urine culture. She has been on HD at [facility] since 2016 (TTS 3.5 hr 2K 2Ca 1Mg F- 180NR 350/800 EDW 90 kg.Had full HD treatment this am.She has chronic respiratory failure with hypoxic and has been maintained on 3L NC as well as HFpEF with chronic pulmonary hypertension. During visit she was awake, alert and responded appropriately. She reported feeling better, denied any specific symptoms. Allergies Allergy/AdvReac Type Severity Reaction Status Date / Time lisinopril AdvReac Intermediate cough Verified 07/27/23 15:01 Home Medications Medication Instructions Recorded Confirmed Type vit B complx, C-iron 8 mg-folic 1 tab PO QDL 02/27/20 08/17/23 History acid 800 mcg-D3 1,000 unit-zinc tablet (ProRenal) lancets 33 gauge (OneTouch Delica #100 ea 11/27/20 07/27/23 Rx Lancets) calcium acetate 667 mg tablet 667 mg PO UD 12/17/20 08/17/23 History sodium zirconium cyclosilicate 5 5 g PO 4XWK 03/25/22 08/17/23 History gram oral powder packet (Lokelhi) blood sugar diagnostic ([employer] GroupTouch #300 ea 07/31/22 07/27/23 Rx Verio test strips) blood-glucose meter ([employer] GroupTouch #1 ea 07/31/22 07/27/23 Rx Verio Meter) cholecalciferol (vitamin D3) 50 50 mcg PO DAILY #90 caps 07/31/22 08/17/23 Rx mcg (2,000 unit) capsule ondansetron 8 mg disintegrating 8 mg PO Q8H PRN Nausea #90 tabs 07/31/22 08/17/23 Rx tablet CPAP Supplies See Rx Instructions .Route 08/21/22 08/17/23 Rx .COMPLEX #1 ea Oxygen Home E0424 #1 ea 09/04/22 07/27/23 Rx CPAP Machine See Rx Instructions .Route 12/09/22 08/17/23 Rx .COMPLEX #1 ea amlodipine 10 mg tablet 10 mg PO DAILY #90 tabs 07/28/23 08/17/23 Rx carvedilol 12.5 mg tablet (Coreg) 12.5 mg PO BID #180 tabs 08/03/23 08/17/23 Rx levothyroxine 100 mcg tablet 100 mcg PO QPM #90 tabs 08/03/23 08/17/23 Rx pantoprazole 40 mg tablet,delayed 40 mg PO BID 90 days #180 tabs 08/03/23 08/17/23 Rx release polyethylene glycol 3350 17 17 g PO DAILY #510 grams 08/03/23 08/17/23 Rx gram/dose oral powder (Miralax) venlafaxine 75 mg capsule,extended 75 mg PO DAILY #90 caps 08/03/23 08/17/23 Rx release 24 hr buspirone 5 mg tablet 5 mg PO BID #180 tabs 08/13/23 08/17/23 Rx gabapentin 300 mg capsule 300 mg PO 3XWK #36 caps 08/13/23 08/17/23 Rx lactulose 10 gram/15 mL oral 15 ml PO DAILY PRN Constipation 08/13/23 08/17/23 Rx solution #1,350 mL Antibiotic See Rx Instructions .Route .COMPLEX 08/17/23 08/17/23 History Patient History Medical History (Updated 08/17/23 @ 13:36 by Charlee Avendaño MD) Acute UTI Diabetic eyes COPD, 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 Weakness generalized Counseling regarding advanced directives and goals of care Palliative care by specialist Hallucinations Fatigue Abnormal EKG Acute electrocardiogram changes Transaminitis Elevated troponin Anxiety Depression Myoclonus Type 2 diabetes mellitus with diabetic neuropathy Acute hyperkalemia Hyperkalemia, diminished renal excretion End-stage renal disease on hemodialysis Laceration of left lower extremity Hernia, hiatal Depression with anxiety Diabetic retinopathy Dyslipidemia GERD without esophagitis Insomnia Macular puckering, bilateral Obstructive sleep apnea Panniculitis Paresthesias Polyarthritis Tubular adenoma of colon Vitamin D deficiency Hypothyroidism Coronary artery disease Anemia Diabetes mellitus Hypertension History of thrombophlebitis Arthritis Surgical History History of tonsillectomy S/P repair of paraesophageal hernia History of nasal septoplasty History of cataract surgery History of bladder surgery S/P arteriovenous (AV) fistula creation S/P rotator cuff repair S/P hysterectomy H/O: hysterectomy Family History Mother Leukemia Cerebral aneurysm Hypertension Anxiety Diabetes Cancer Heart disease Grandmother Hypertension Father Osteoarthritis COPD (chronic obstructive pulmonary disease) Diabetes Hearing loss Sister Diabetes Myocardial infarction COPD (chronic obstructive pulmonary disease) Hypertension Brother Myocardial infarction Diabetes Cancer Stomach cancer Other No family history of bleeding disorder Denies family history of Ovarian cancer Prostate cancer Breast cancer Colorectal cancer Stroke Asthma Social History Smoking Status: Unknown if ever smoked Second Hand Exposure: No; Do You Dip or Chew Tobacco: No; Hx Alcohol Use: No Hx Substance Use: No Preferred Language: Paraguayan Communication Ability: Impaired Visual Impairment: No Limitations Hearing Ability: Normal Hospice Plan Administrator Required: No Beliefs That Will Affect Care: None marital status: Current Living Situation: Spouse Current Living Situation Comment: Home w/spouse current occupational status: retired How many Children do You have: 1 Feels Safe at Home: Yes Dental Care, Regularly: No Physical Activity Frequency: 1-2 Times per Week Seatbelt Use: always Assistive Devices: Oxygen - Continuous, Walker and Wheelchair Review of Systems Review of Systems: Detailed review of system was done and pertinent positives and negatives are mentioned above. Physical Exam Constitutional: WD/WN, vitals as above + ill appearing; no acute distress Eyes: + anicteric sclerae ENMT: Ears: no hearing impairment Neck: normal visual inspection Respiratory: no respiratory distress Auscultation: lungs clear to auscultation bilaterally Cardiovascular: RRR, no murmur, no edema Gastrointestinal (Abdomen): Inspection/Auscultation: abdomen normal to inspection Musculoskeletal: Extremities: extremities normal to inspection Skin: no rashes, warm and dry Neurologic: no focal motor deficits and not confused Psychiatric: Orientation: alert and oriented x 3 Affect: euthymic affect Results & Data Vital Signs (Past 12 Hours) Vital Signs Temp Pulse Resp BP Pulse Ox O2 Del Method O2 Flow Rate 08/17/23 10:09 75 18 96 08/17/23 09:20 98 Nasal Cannula 3 08/17/23 09:20 36.9 C 81 20 100/32 L 97 Nasal Cannula 3 FiO2 08/17/23 10:09 30 08/17/23 09:20 08/17/23 09:20 PG Care Time/CCT Total # of Minutes Spent Total Time Spent with Patient: Total time spent is greater than 50% in coordination of care (as documented) at patient's floor/unit and/or counseling patient: Coding Level of Care Code 04913 INT INP/OBS CARE 3/75MIN Diagnoses End-stage renal disease on hemodialysis N18.6; Z99.2 AMS (altered mental status) R40.0 Altered mental status type: somnolence Weakness generalized R53.1 Anemia D64.9 Anemia type: due to chronic kidney disease Acute UTI N39.0 (2) AMS (altered mental status) Altered mental status type: somnolence Qualified Code(s): R40.0 - Somnolence (4) Anemia Anemia type: due to chronic kidney disease
[2023-08-17] MEDS: VANCOMYCIN HCL 1,750 MG in SODIUM CHLORIDE 0.9% 500 ML IV ONE (12:39)
[2023-08-17] MEDS: INSULIN ASPART PER UNIT CHARGE SC SCH (13:14)
--- NOTE | 2023-08-17 13:58 | Pharmacy Report ---
Pharmacy PK ABX Note - Date of Service August 17, 2023 - Assessment and Plan Assessment 78 year old F receiving empiric vancomycin and ceftriaxone for concern of sepsis (possible UTI?) . Blood cultures obtained and currently pending. Patient w/ ESRD on chronic HD Wednesday, , and Wednesday. Patient presented to ED this morning following HD session. Likely will have next HD session on (08/19/23). Day # 1 of antimicrobial therapy. Plan Vancomycin * Loading dose: 1750 mg IV x 1 * Will order random level tomorrow morning to assess for any clearance of drug outside of HD and to see if supplemental dose is required Ceftriaxone * 2 g IV q24h - appropriately dosed based on weight/indication Pharmacy will continue to follow and will adjust dose/frequency as necessary. Thank you. Pharmacy has transitioned to AUC monitoring for vancomycin. AUC/MALENA is the preferred PK/PD target and is associated with decreased risk of nephrotoxicity compared to traditional trough targets.
[2023-08-17 14:04] LABS: Influenza A virus by PCR Negative (Neg); Influenza B virus by PCR Negative (Neg); RSV by PCR Negative (Neg); SARS CoV2 RNA(COVID-19) Ceph NEGATIVE (Negative)
[2023-08-17] MEDS: ALBUT/IPRATROP 3MG/0.5MG NEB 3 ML VIAL NEB SCH (14:55)
--- NOTE | 2023-08-17 15:03 | Electrocardiogram Report ---
Test Reason : Blood Pressure : / mmHG Vent. Rate : 079 BPM Atrial Rate : 079 BPM P-R Int : 206 ms QRS Dur : 090 ms QT Int : 396 ms P-R-T Axes : 077 -64 037 degrees QTc Int : 454 ms Normal sinus rhythm Left axis deviation Poor R wave progression, consider anterior [place] vs. lead placement vs. LVH Abnormal ECG When compared with ECG of 14-MAR-2023 13:26, No significant change was found Confirmed by Davon William ([id number]) on 08/17/2023 3:03:01 PM Referred By: REFERRED SELF Confirmed By:Ravi William
--- NOTE | 2023-08-17 16:38 | XRay Report ---
SINGLE VIEW CHEST CLINICAL HISTORY: Dyspnea FINDINGS: An AP, portable, upright chest radiograph is compared to study dated 09/30/2022 and correlate d with chest CT dated 01/17/2022. The examination is degraded by portable technique and patient rotati on. The heart is enlarged and atherosclerotic calcification of the thoracic aorta. The mitral annulus is densely calcified. The pulmonary vasculature is noncongested. Chronic interstitial thickening is similar to previous. Scarring/atelectasis is noted at both lung bases. The lungs and pleural spaces a re otherwise clear. No pneumothorax is seen. The skeletal structures are osteopenic. The bony thorax is grossly intact. Surgical clips project over the upper abdomen. IMPRESSION: Cardiomegaly with no active disease in the chest. ACT 112: Negative or not required by law. Electronically signed by: Derek Low M.D. 08/17/2023 4:37 PM
[2023-08-17] MEDS: LANTUS PER UNIT CHARGE SQ SCH (20:46)
[2023-08-17] MEDS: HEPARIN SOD 5,000 UNIT/0.5 ML VIAL SQ SCH (20:47)
[2023-08-17] MEDS: oxyCODONE HCL IR 5 MG TAB (IMMEDIATE RELEASE) PO SCH (23:11)
[2023-08-18] MEDS: ACETAMINOPHEN 325 MG TAB PO PRN (02:36)
[2023-08-18 05:39] LABS: Basophils # (auto) 0.06 K/uL (0.00-0.20); Basophils % (auto) 0.5 %; Eosinophils # (auto) 0.23 K/uL (0.00-0.50); Hemoglobin 9.7 g/dl (12.0-16.0); Immature Granulocytes # (auto) 0.06 K/uL (0.01-0.20); Immature Granulocytes % (auto) 0.5 %; Lymphocytes # (auto) 1.06 K/uL (1.20-3.40); Lymphocytes % (auto) 9.1 %; Mean Corpuscular Hgb Conc 30.3 g/dL (32.0-36.0); Mean Corpuscular Volume 105.6 fL (80.0-100.0); Mean Platelet Volume 9.6 fL (9.4-12.4); Monocytes # (auto) 1.44 K/uL (0.11-0.59); Monocytes % (auto) 12.3 %; Neutrophils # (auto) 8.81 K/uL (1.40-6.50); Neutrophils % (auto) 75.6 %; Platelet Count 160 K/uL (130-400); RDW Standard Deviation 57.7 fL (36.4-46.3); Red Blood Count 3.03 M/uL (4.20-5.40); White Blood Count 11.66 K/ul (4.8-10.8)
[2023-08-18 05:54] LABS: Albumin Globulin Ratio 0.9 (0.9-2); Albumin Level 3.4 gm/dl (3.4-5.0); Bilirubin,Total 0.4 mg/dl (0.2-1.0); Calcium 8.7 mg/dl (8.6-10.3); Creatinine Clr Calc Pharmacy 8.3 ml/min; Globulin 3.7 gm/dl (2.5-4.0); Magnesium 2.3 mg/dl (1.7-2.4); Phosphorus 4.5 mg/dl (2.5-4.9); Potassium 4.8 mmol/L (3.5-5.1); Total Protein 7.1 gm/dl (6.0-8.3)
[2023-08-18 06:07] LABS: Thyroid Stimulating Hormone 3.429 uIu/ml (0.300-4.500); Troponin I High Sensitivity 31.8 pg/ml (0-14)
[2023-08-18] MEDS ORDERED: CALCIUM ACETATE 667 MG CAP/TAB PO PRN (07:28)
[2023-08-18 07:36] LABS: Estimated Average Glucose 140 mg/dl; Hemoglobin A1C 6.5 % (4.5-5.6)
[2023-08-18] MEDS: LEVOTHYROXINE SODIUM 100 MCG TABLET PO SCH (08:34)
[2023-08-18] MEDS: PANTOprazole 40 MG TAB PO SCH (08:34)
[2023-08-18] MEDS: VENLAFAXINE HCL XR 75 MG CAPXR PO SCH (08:34)
[2023-08-18] MEDS: CALCIUM ACETATE 667 MG CAP/TAB PO SCH (08:34)
[2023-08-18] MEDS: busPIRone 5 MG TAB PO SCH (08:34)
[2023-08-18] MEDS: SODIUM ZIRCONIUM CYCLOSILICATE 10 GM PACKET PO SCH (08:35)
[2023-08-18] MEDS: carvediloL 12.5 MG TAB PO SCH (08:35)
--- NOTE | 2023-08-18 09:31 | Hospitalist Progress Note ---
Date of Service August 18, 2023 Assessment & Plan (1) Acute UTI: Plan: Possible diagnosis noted on admission although no urine analysis or culture taken as she only produces very small amounts of urine Possible pyelonephritis with back pain although not one sided Unclear what antibiotic she was taking as an outpatient as prescribed by her hospice agency Follow up blood cultures Continue empiric treatment with vancomycin and ceftriaxone pending blood culture results, if blood cultures negative can switch to cefdinir for discharge (2) AMS (altered mental status): Plan: Suspected secondary to UTI given improvement with (3) Acute hypercapnic respiratory failure: Plan: Baseline 3lPM O2, Aim O2 sats 88-92% Improved with BiPAP, continue HS (4) Obstructive sleep apnea: Plan: BiPAP HS (5) Restrictive lung disease: Plan: Suspected related to body habitus per prior pulm notes (6) Cardiomyopathy: Plan: Continue carvedilol (7) Hypothyroidism: Plan: TSH WNL 08/17 Continue levothyroxine Plan VTE Prophyalxis - heparin 5000 units SQ BID Diet - dialysis renal Disposition - stable for transfer to med/surg Admission and Anticipated Discharge Date Admission Date: August 17, 2023 Subjective back pain for weeks hospice gave antibiotics for 5 days, didn't take urine sample. Started a ntibiotic on Wednesday. worse Wednesday. Diagnosis of UTI as outpatient based on back ache, talking funny, more confused than usual produces urine but only a small amount Already feeling much better today Review of Systems Review of Systems: All systems reviewed & are unremarkable except as noted in HPI & below Physical Exam Constitutional: well developed; + not well nourished and no acute distress Respiratory: normal respiratory effort, lungs clear to auscultation Cardiovascular: Rate/Rhythm: regular rate and regular rhythm Heart Sounds: no murmur Extremities: + pedal edema Gastrointestinal (Abdomen): normal bowel sounds, soft, nontender, no hepatosplenomegaly Skin: no rashes, warm and dry (no areas of cellulitis noted) Genitourinary: + CVA tenderness (bilateral) Results & Data Results & Data Vital Signs (Past 12 Hours) Vital Signs Temp Pulse Pulse Resp BP Pulse Ox O2 Del Method 08/18/23 07:34 36.6 C 75 20 145/66 H 96 Nasal Cannula 08/18/23 07:23 75 08/18/23 07:18 77 16 100 Nasal Cannula 08/18/23 03:21 74 18 96 08/18/23 03:10 36.9 C 73 16 134/58 L 93 Nasal Cannula 08/18/23 00:40 76 08/17/23 23:15 36.6 C 19 142/59 H 90 Nasal Cannula O2 Flow Rate FiO2 08/18/23 07:34 2 08/18/23 07:23 08/18/23 07:18 4 08/18/23 03:21 30 08/18/23 03:10 3 08/18/23 00:40 08/17/23 23:15 3 PG Care Time/CCT Total # of Minutes Spent Total Time Spent with Patient: Total time spent is greater than 50% in coordination of care (as documented) at patient's floor/unit and/or counseling patient: Coding Level of Care Code 60389 SUB INP/OBS CARE 2/35MIN Diagnoses Acute UTI N39.0 AMS (altered mental status) R41.82 Altered mental status type: unspecified Acute hypercapnic respiratory failure J96.02 Obstructive sleep apnea G47.33 Restrictive lung disease J98.4 Cardiomyopathy I42.9 Hypothyroidism, unspecified type E03.9 Hypothyroidism type: unspecified (2) AMS (altered mental status) Altered mental status type: unspecified Qualified Code(s): R41.82 - Altered mental status, unspecified (7) Hypothyroidism Hypothyroidism type: unspecified Qualified Code(s): E03.9 - Hypothyroidism, unspecified
[2023-08-18] MEDS: cefTRIAXone SODIUM 2,000 MG in DEXTROSE 5 % MINI-B 50 ML IV SCH (09:37)
--- NOTE | 2023-08-18 10:14 | Nephrology Progress Note ---
Date of Service August 18, 2023 Assessment & Plan (1) End-stage renal disease on hemodialysis: (2) AMS (altered mental status): (3) Weakness generalized: (4) Anemia: (5) Acute UTI: Plan 78-year-old female with ESKD, on hemodialysis Wednesday, , Wednesday, admitted lethargy and change in mental status possibly secondary to recurrent urinary tract infection. Had complete dialysis session this morning, had 3 L UF, left close to her dry weight. Brought to ER after dialysis with lethargy and change in mental status and concern for recurrent urinary tract infection. Started empirically with vancomycin and ceftriaxone and already started to respond better and feeling better. Labs are all at goal, potassium normal. Volume status acceptable. Blood pressure well-controlled. -- plan for dialysis tomorrow. Continue on renal diet, avoid potassium supplement. --Dose medications for EGFR less than 10, continue empiric antibiotic for presumed UTI --Renal vitamins daily --RONNELL with HD tomorrow. Admission and Anticipated Discharge Date Admission Date: August 17, 2023 Jorge Watson was seen and evaluated this morning. Doing well, denies any concerns, no SOB, CP, uses NC O2 regularly. BP fair. K normal. Review of Systems Review of Systems: Detailed review of system was done and pertinent positives and negatives are mentioned above. Physical Exam Constitutional: WD/WN, vitals as above no acute distress Eyes: + anicteric sclerae ENMT: Ears: no hearing impairment Neck: normal visual inspection Respiratory: no respiratory distress Auscultation: lungs clear to auscultation bilaterally Cardiovascular: RRR, no murmur, no edema Extremities: + AV fistula (Rt RC AVF with thrill and bruit.) Musculoskeletal: Extremities: extremities normal to inspection Skin: no rashes, warm and dry Neurologic: no focal motor deficits and not confused Psychiatric: Orientation: alert and oriented x 3 Affect: euthymic affect Results & Data Vital Signs (Past 12 Hours) Vital Signs Temp Pulse Pulse Resp BP Pulse Ox O2 Del Method 08/18/23 09:27 Room Air 08/18/23 07:34 36.6 C 75 20 145/66 H 96 Nasal Cannula 08/18/23 07:23 75 08/18/23 07:18 77 16 100 Nasal Cannula 08/18/23 03:21 74 18 96 08/18/23 03:10 36.9 C 73 16 134/58 L 93 Nasal Cannula 08/18/23 00:40 76 08/17/23 23:15 36.6 C 19 142/59 H 90 Nasal Cannula O2 Flow Rate FiO2 08/18/23 09:27 08/18/23 07:34 2 08/18/23 07:23 08/18/23 07:18 4 08/18/23 03:21 30 08/18/23 03:10 3 08/18/23 00:40 08/17/23 23:15 3 PG Care Time/CCT Total # of Minutes Spent Total Time Spent with Patient: Total time spent is greater than 50% in coordination of care (as documented) at patient's floor/unit and/or counseling patient: Coding Level of Care Code 55319 SUB INP/OBS CARE 2/35MIN Diagnoses End-stage renal disease on hemodialysis N18.6; Z99.2 AMS (altered mental status) R40.0 Altered mental status type: somnolence Weakness generalized R53.1 Anemia D64.9 Anemia type: due to chronic kidney disease Acute UTI N39.0 (2) AMS (altered mental status) Altered mental status type: somnolence Qualified Code(s): R40.0 - Somnolence (4) Anemia Anemia type: due to chronic kidney disease
[2023-08-18] MEDS: VANCOMYCIN HCL 750 MG in SODIUM CHLORIDE 0.9% 250 ML IV ONE (11:20)
[2023-08-18] MEDS: NEPHROCAPS PO SCH (11:20)
--- NOTE | 2023-08-18 12:25 | Pharmacy Report ---
Pharmacy PK ABX Note - Date of Service August 18, 2023 - Assessment and Plan Assessment 08/17 Continuing empiric vanc/ceftriaxone- blood cultures pending. Plan for HD tomorrow, random level this AM 16.5, will give supplemental 750 mg dose x 1 today and obtain random level pre-dialysis tomorrow. 08/16 78 year old F receiving empiric vancomycin and ceftriaxone for concern of sepsis (possible UTI?) . Blood cultures obtained and currently pending. Patient w/ ESRD on chronic HD Wednesday, , and Wednesday. Patient presented to ED this morning following HD session. Likely will have next HD session on (08/19/23). Day # 1 of antimicrobial therapy. Plan Vancomycin * 750 mg IV x 1 * Will order random level tomorrow morning to assess pre-dialysis level Ceftriaxone * 2 g IV q24h - appropriately dosed based on weight/indication Pharmacy will continue to follow and will adjust dose/frequency as necessary. Thank you. Pharmacy has transitioned to AUC monitoring for vancomycin. AUC/MALENA is the preferred PK/PD target and is associated with decreased risk of nephrotoxicity compared to traditional trough targets.
[2023-08-18] MEDS ORDERED: ALBUT/IPRATROP 3MG/0.5MG NEB 3 ML VIAL NEB PRN (15:13)
[2023-08-19 06:35] LABS: Albumin Level 3.8 gm/dl (3.4-5.0); BUN Creatinine Ratio 7.2 (10-20); Calcium 9.3 mg/dl (8.6-10.3); Est GFR (African American) 5.7 ml/min; Est GFR (Non-African American) 4.9 ml/min; Phosphorus 4.6 mg/dl (2.5-4.9); Potassium 5.4 mmol/L (3.5-5.1)
--- NOTE | 2023-08-19 09:07 | Pharmacy Report ---
Pharmacy PK ABX Note - Date of Service August 19, 2023 - Assessment and Plan Assessment 08/18 Patient continues with vancomycin/rocephin. Blood cultures NGTD preliminary. Random vancomycin level this AM ~21 mcg/ml - anticipate ~30% removal with dialysis today. Estimated level post dialysis ~15 mcg/ml - plan to re-dose with vancomycin 750 mg x 1 for after dialysis this evening. Plan to order another random level next to prior dialysis session to assist with further dosing. 08/17 Continuing empiric vanc/ceftriaxone- blood cultures pending. Plan for HD tomorrow, random level this AM 16.5, will give supplemental 750 mg dose x 1 today and obtain random level pre-dialysis tomorrow. 08/16 78 year old F receiving empiric vancomycin and ceftriaxone for concern of sepsis (possible UTI?) . Blood cultures obtained and currently pending. Patient w/ ESRD on chronic HD Wednesday, , and Wednesday. Patient presented to ED this morning following HD session. Likely will have next HD session on (08/19/23). Day # 1 of antimicrobial therapy. Plan Vancomycin * 750 mg IV x 1 * Will order random level Wednesday morning to assess pre-dialysis level Ceftriaxone * 2 g IV q24h - appropriately dosed based on weight/indication Pharmacy will continue to follow and will adjust dose/frequency as necessary. Thank you. Pharmacy has transitioned to AUC monitoring for vancomycin. AUC/MALENA is the preferred PK/PD target and is associated with decreased risk of nephrotoxicity compared to traditional trough targets.
--- NOTE | 2023-08-19 10:07 | Nephrology Progress Note ---
Date of Service August 19, 2023 Assessment & Plan (1) End-stage renal disease on hemodialysis: (2) AMS (altered mental status): (3) Weakness generalized: (4) Anemia: (5) Acute UTI: Plan 78-year-old female with ESKD, on hemodialysis Wednesday, , Wednesday, admitted lethargy and change in mental status possibly secondary to recurrent urinary tract infection. Had complete dialysis session this morning, had 3 L UF, left close to her dry weight. Brought to ER after dialysis with lethargy and change in mental status and concern for recurrent urinary tract infection. Started empirically with vancomycin and ceftriaxone and already started to respond better and feeling better. Labs are all at goal, potassium normal. Volume status acceptable. Blood pressure high and seems volume overloaded but no respiratory distress. Weight gain EMR shows she is on the had trioleate a little clinically seems volume overloaded. -- Dialysis now, try to challenge dry weight and aim for UF at least 2.5 L, continue on renal diet, avoid potassium supplement. --Dose medications for eGFR less than 10, continue empiric antibiotic for presumed UTI --Renal vitamins daily --RONNELL with HD. Admission and Anticipated Discharge Date Admission Date: August 17, 2023 Jorge Watson was seen and evaluated this morning during HD. c/o headache and nausea this morning, improving now. Denies SOB, CP,F/C. Leukocytosis improving. BP high, volume overloaded. Review of Systems Review of Systems: Detailed review of system was done and pertinent positives and negatives are mentioned above. Physical Exam Constitutional: WD/WN, vitals as above no acute distress Eyes: + anicteric sclerae ENMT: Ears: no hearing impairment Neck: normal visual inspection Respiratory: no respiratory distress Auscultation: lungs clear to auscultation bilaterally Cardiovascular: RRR, no murmur, no edema Extremities: + AV fistula (Rt RC AVF with thrill and bruit.) Musculoskeletal: Extremities: extremities normal to inspection Skin: no rashes, warm and dry Neurologic: no focal motor deficits and not confused Psychiatric: Orientation: alert and oriented x 3 Affect: euthymic affect Results & Data Vital Signs (Past 12 Hours) Vital Signs Temp Pulse Pulse Pulse Resp BP BP 08/19/23 09:30 64 151/68 H 08/19/23 09:14 36.7 C 73 08/19/23 07:48 36.7 C 69 18 149/60 H Pulse Ox O2 Del Method O2 Flow Rate 08/19/23 09:30 08/19/23 09:14 08/19/23 07:48 94 Nasal Cannula 2.5 PG Care Time/CCT Total # of Minutes Spent Total Time Spent with Patient: Total time spent is greater than 50% in coordination of care (as documented) at patient's floor/unit and/or counseling patient: Coding Level of Care Code 00603 SUB INP/OBS CARE 2/35MIN Diagnoses End-stage renal disease on hemodialysis N18.6; Z99.2 AMS (altered mental status) R40.0 Altered mental status type: somnolence Weakness generalized R53.1 Anemia D64.9 Anemia type: due to chronic kidney disease Acute UTI N39.0 (2) AMS (altered mental status) Altered mental status type: somnolence Qualified Code(s): R40.0 - Somnolence (4) Anemia Anemia type: due to chronic kidney disease
[2023-08-19] MEDS: EPOETIN ALFA 20,000 UNITS/ML VIAL IV ONE (12:38)
--- NOTE | 2023-08-19 13:03 | Hospitalist Progress Note ---
Date of Service August 19, 2023 Assessment & Plan (1) Acute UTI: Plan: Possible diagnosis noted on admission although no urine analysis or culture taken as she only produces very small amounts of urine Possible pyelonephritis with back pain although not one sided Unclear what antibiotic she was taking as an outpatient as prescribed by her hospice agency Follow up blood cultures - if negative at 48 hours can discontinue vancomycin Continue empiric treatment with vancomycin and ceftriaxone pending blood culture results, if blood cultures negative can switch to cefdinir for discharge (2) AMS (altered mental status): Plan: Suspected secondary to UTI given improvement with antibiotics (3) Acute hypercapnic respiratory failure: Plan: Baseline 3lPM O2, Aim O2 sats 88-92% Improved with BiPAP, continue HS (4) Obstructive sleep apnea: Plan: BiPAP HS (5) Restrictive lung disease: Plan: Suspected related to body habitus per prior pulm notes (6) Cardiomyopathy: Plan: Continue carvedilol (7) Hypothyroidism: Plan: TSH WNL 08/17 Continue levothyroxine (8) End-stage renal disease on hemodialysis: Plan: Appreciate nephrology management of this. Underwent hemodialysis today. Next session will be on Sat. Plan VTE Prophyalxis - heparin 5000 units SQ BID Diet - dialysis renal Disposition - stable for transfer to med/surg Admission and Anticipated Discharge Date Admission Date: August 17, 2023 Anticipated date of discharge: 08/20/23 Subjective [place]elling improved but not yet back to baseline. Feels she will be ready tomorrow morning. No further confusion Physical Exam Constitutional: well developed; + not well nourished and no acute distress Respiratory: normal respiratory effort, lungs clear to auscultation Cardiovascular: Rate/Rhythm: regular rate and regular rhythm Heart Sounds: no murmur Extremities: + pedal edema Gastrointestinal (Abdomen): normal bowel sounds, soft, nontender, no hepatosplenomegaly Skin: no rashes, warm and dry (no areas of cellulitis noted) Genitourinary: + CVA tenderness (bilateral) Results & Data Results & Data Vital Signs (Past 12 Hours) Vital Signs Temp Pulse Pulse Pulse Resp BP BP 08/19/23 12:00 69 149/77 H 08/19/23 11:30 67 145/74 H 08/19/23 11:00 65 153/75 H 08/19/23 10:30 64 139/70 08/19/23 10:00 65 134/65 08/19/23 09:30 64 151/68 H 08/19/23 09:14 36.7 C 73 08/19/23 07:48 36.7 C 69 18 149/60 H Pulse Ox O2 Del Method O2 Flow Rate 08/19/23 12:00 08/19/23 11:30 08/19/23 11:00 08/19/23 10:30 08/19/23 10:00 08/19/23 09:30 08/19/23 09:14 08/19/23 07:48 94 Nasal Cannula 2.5 PG Care Time/CCT Total # of Minutes Spent Total Time Spent with Patient: Total time spent is greater than 50% in coordination of care (as documented) at patient's floor/unit and/or counseling patient: Coding Level of Care Code 55114 SUB INP/OBS CARE 2/35MIN Diagnoses Acute UTI N39.0 AMS (altered mental status) R41.82 Altered mental status type: unspecified Acute hypercapnic respiratory failure J96.02 Obstructive sleep apnea G47.33 Restrictive lung disease J98.4 Cardiomyopathy I42.9 Hypothyroidism, unspecified type E03.9 Hypothyroidism type: unspecified End-stage renal disease on hemodialysis N18.6; Z99.2 (2) AMS (altered mental status) Altered mental status type: unspecified Qualified Code(s): R41.82 - Altered mental status, unspecified (7) Hypothyroidism Hypothyroidism type: unspecified Qualified Code(s): E03.9 - Hypothyroidism, unspecified
[2023-08-19] MEDS: VANCOMYCIN HCL 750 MG in SODIUM CHLORIDE 0.9% 250 ML IV ONE (17:30)
[2023-08-19] MEDS: GABAPENTIN 300 MG CAP PO SCH (17:30)
[2023-08-19] MEDS: POLYETHYLENE (MIRALAX) 17 GM PACK PO SCH (20:16)
[2023-08-19] MEDS: DOCUSATE SODIUM/SENNA 50/8.6MG TAB PO SCH (20:16)
[2023-08-20] MEDS: oxyCODONE HCL IR 5 MG TAB (IMMEDIATE RELEASE) PO PRN (03:21)
[2023-08-20 08:14] LABS: Albumin Level 3.6 gm/dl (3.4-5.0); BUN Creatinine Ratio 6.3 (10-20); Calcium 9.1 mg/dl (8.6-10.3); Est GFR (African American) 8.4 ml/min; Est GFR (Non-African American) 7.2 ml/min; Phosphorus 4.3 mg/dl (2.5-4.9); Potassium 5.3 mmol/L (3.5-5.1)
--- NOTE | 2023-08-20 10:21 | Nephrology Progress Note ---
Date of Service August 20, 2023 Assessment & Plan (1) End-stage renal disease on hemodialysis: (2) AMS (altered mental status): (3) Weakness generalized: (4) Anemia: (5) Acute UTI: Plan 78-year-old female with ESKD, on hemodialysis Wednesday, , Wednesday, admitted lethargy and change in mental status possibly secondary to recurrent urinary tract infection. Had complete dialysis session this morning, had 3 L UF, left close to her dry weight. Brought to ER after dialysis with lethargy and change in mental status and concern for recurrent urinary tract infection. Started empirically with vancomycin and ceftriaxone and already started to respond better and feeling better. Labs are all at goal, potassium normal. Hoever her weight is up and c/o some SOB although she had HD yesterday and had 3 L UF. Blood pressure high and seems volume overloaded but no respiratory distress. Weight in EMR was 3 kg above her EDW. --will do short Dialysis today to try 2 L UF. Can be discharged after HD. continue on renal diet, avoid potassium supplement. --Dose medications for eGFR less than 10 --Renal vitamins daily --RONNE[facility] with HD. Admission and Anticipated Discharge Date Admission Date: August 17, 2023 Jorge Watson was seen and evaluated this morning. Doing well, but reports some concern as she received a lot of fluid yesterday for constipation, feels slightly SOB. BP fair. K normal. Review of Systems Review of Systems: Detailed review of system was done and pertinent positives and negatives are mentioned above. Physical Exam Constitutional: WD/WN, vitals as above no acute distress Eyes: + anicteric sclerae ENMT: Ears: no hearing impairment Neck: normal visual inspection Respiratory: no respiratory distress Auscultation: + crackles Cardiovascular: RRR, no murmur, no edema Extremities: + AV fistula (Rt RC AVF with thrill and bruit.) Musculoskeletal: Extremities: extremities normal to inspection Skin: no rashes, warm and dry Neurologic: no focal motor deficits and not confused Psychiatric: Orientation: alert and oriented x 3 Affect: euthymic affect Results & Data Vital Signs (Past 12 Hours) Vital Signs Temp Pulse Resp BP Pulse Ox O2 Del Method O2 Flow Rate 08/20/23 08:04 36.7 C 80 18 142/84 H 97 Nasal Cannula 2.5 08/19/23 22:53 Nasal Cannula 3 PG Care Time/CCT Total # of Minutes Spent Total Time Spent with Patient: Total time spent is greater than 50% in coordination of care (as documented) at patient's floor/unit and/or counseling patient: Coding Level of Care Code 33901 SUB INP/OBS CARE 2/35MIN Diagnoses End-stage renal disease on hemodialysis N18.6; Z99.2 AMS (altered mental status) R40.0 Altered mental status type: somnolence Weakness generalized R53.1 Anemia D64.9 Anemia type: due to chronic kidney disease Acute UTI N39.0 (2) AMS (altered mental status) Altered mental status type: somnolence Qualified Code(s): R40.0 - Somnolence (4) Anemia Anemia type: due to chronic kidney disease
[2023-08-20] MEDS: EPOETIN ALFA 10,000 UNITS/ML VIAL IV ONE (13:29)
[2023-08-20] MEDS ORDERED: CEFDINIR 300 MG CAP PO STA (13:50)
--- NOTE | 2023-08-20 16:21 | Discharge Summary ---
Date of Service August 20, 2023 Admission HPI Per Admitting Provider This is a 78-year-old female who with end-stage renal disease hemodialysis dependent every Wednesday. Last Wednesday she began to have increased weakness and increased confusion and altered mentation. She was diagnosed with urinary tract infection and started on oral antibiotic we are uncertain as to which 1. She went to dialysis today had a full treatment. However dialysis she was very sleepy/"lethargic" she was directed to the ER for further evaluation and treatment. In the ER she was found to have a white count of 19,000 hemoglobin of 10.5 which is approximately her baseline he was found to have hypercarbia with a CO2 of 86 with a pH of 7.22 blood glucose was satisfactory at 188 other electrolytes were unremarkable troponin was elevated at 30.6 which is somewhat chronic for this patient will recheck a troponin. EKG demonstrated normal sinus rhythm with no acute ST-T abnormalities unchanged from previous reading. Course in the ER she was placed on BiPAP and was given a gram of IV Rocephin. We were called admit the patient for further evaluation and treatment. The patient is a hospice patient but wants full treatment short of cardiopulmonary resuscitation. This was confirmed bedside by the ER provider prior to contacting has not been reconfirmed bedside with me with the patient and the patient's daughter at the bedside. Therefore at this time we have ordered stat blood cultures she is a dialysis patient she is at high risk for bacteremia she has a white count of 20,000 we will order stat lactic acid a stat repeat troponin. Will do stat ABGs and adjust the BiPAP accordingly. Principal Diagnosis Deliriumpossible metabolic encephalopathy due to urinary tract infection Discharge Data Allergies Allergy/AdvReac Type Severity Reaction Status Date / Time lisinopril AdvReac Intermediate cough Verified 07/27/23 15:01 Consultations 08/17/23 09:58 ED Decision to Admit Stat 08/17/23 10:43 Consult Nephrology Routine Hospital Course (1) Acute UTI: Possible diagnosis noted on admission although no urine analysis or culture taken as she only produces very small amounts of urine Possible pyelonephritis with back pain although not one sided Unclear what antibiotic she was taking as an outpatient as prescribed by her hospice agency Improving on ceftriaxonesafe for home on p.o. cefdinir. (2) AMS (altered mental status): Suspected secondary to UTI given improvement with antibiotics (3) Acute hypercapnic respiratory failure: Baseline 3lPM O2, Aim O2 sats 88-92% Improved with BiPAP, continue HS (4) Obstructive sleep apnea: BiPAP HS (5) Restrictive lung disease: Suspected related to body habitus per prior pulm notes (6) Cardiomyopathy: Continue carvedilol (7) Hypothyroidism: TSH WNL 08/17 Continue levothyroxine (8) End-stage renal disease on hemodialysis: Appreciate nephrology management of this. Outpatient follow-up Plan VTE Prophyalxis - heparin 5000 units SQ BID Diet - dialysis renal Disposition - stable for home Total Time Total Time Spent Total Time Spent (In Minutes): Less than 30 Discharge Plan Discharge Items Patient Disposition: Home - Home Health Services Reason For Visit: ILLNESS Discharge Diagnosis: probable urinary tract infection Activity: Resume your previous activity Non-emergency contact: Primary Care Provider Call non-emergency contact if: you have any medication questions Follow-up/Referrals: Julito Burt MD [Primary Care Provider] - 08/25/23 11:00 am Diet: Regular Addtl Attending Provider Instructions: take the cefdinir (antibiotic) every other day after dialysis for 3 more doses - starting tomorrow Pending Studies at Discharge: No Stand-Alone Forms: My [facility] [employer], Smoking Cessation Medications and DC Order Prescriptions: New cefdinir 300 mg capsule 300 mg PO UD 3 Days Qty: 3 0RF Rx Instructions: every other day after dialysis x3 doses Continued (DME) lancets [OneTouch Delica Lancets] 33 gauge misc See Rx Instructions .ROUTE .MEDSUPPLY Qty: 100 3RF Rx Instructions: use to test twice daily (DME) OneTouch Verio test strips Strip See Rx Instructions .ROUTE .MEDSUPPLY Qty: 300 3RF Rx Instructions: test twice daily E11.9 (DME) blood-glucose meter [OneTouch Verio Meter] Misc See Rx Instructions .ROUTE .MEDSUPPLY Qty: 1 0RF Rx Instructions: As directed E11.9 cholecalciferol (vitamin D3) 50 mcg (2,000 unit) capsule 50 mcg PO DAILY Qty: 90 3RF ondansetron 8 mg tablet,disintegrating 8 mg PO Q8H PRN (Reason: Nausea) Qty: 90 5RF amlodipine 10 mg tablet 10 mg PO DAILY Qty: 90 3RF carvedilol [Coreg] 12.5 mg tablet 12.5 mg PO BID Qty: 180 3RF levothyroxine 100 mcg tablet 100 mcg PO QPM Qty: 90 3RF pantoprazole 40 mg tablet,delayed release (DR/EC) 40 mg PO BID 90 Days Qty: 180 3RF polyethylene glycol 3350 [Miralax] 17 gram/dose powder 17 g PO DAILY Qty: 510 2RF venlafaxine 75 mg capsule,extended release 24hr 75 mg PO DAILY Qty: 90 3RF buspirone 5 mg tablet 5 mg PO BID Qty: 180 3RF gabapentin 300 mg capsule 300 mg PO 3XWK Qty: 36 1RF Rx Instructions: Wednesday, , wednesday after dialysis lactulose 10 gram/15 mL solution 15 ml PO DAILY PRN (Reason: Constipation) Qty: 1350 3RF Lokelma 5 gram powder in packet 5 g PO 4XWK Rx Instructions: SunMonWedFri. Ordered daily pt only takes 4 days a week due to diarrhea. (DME) Oxygen Home E0424 Liters Per Minute See Rx Instructions .ROUTE .MEDSUPPLY Qty: 1 0RF Rx Instructions: 3 liters continuously CPAP Supplies Misc See Rx Instructions .ROUTE .COMPLEX Qty: 1 0RF Rx Instructions: Tubing, mask, filters and supplies for the patient's BiPAP 12/7. Lifetime need, [facility] home care; CPAP Machine Misc See Rx Instructions .ROUTE .COMPLEX Qty: 1 0RF Rx Instructions: [facility] home care, please ensure the patient's BiPAP is set at 12/7 and has compliance download capabilities; ProRenal 8 mg iron-800 mcg-1,000 unit tablet 1 tab PO QDL calcium acetate 667 mg Tablet 667 mg PO UD Rx Instructions: 1 cap with every meal and 1 cap with snacks Antibiotic See Rx Instructions .ROUTE .COMPLEX Rx Instructions: Daughter Oscar wasnt sure which antibiotic they started her mom on. She only had one dose. Discharge Orders: Discharge Order (Routine); Ordered 08/20/23 Ordered By: Carlos Palma/Other Patient Handouts: Managing Type 2 Diabetes Admission Data Admit Date/Time: 08/17/23 10:44 Attending Provider: Carlos Anderson Admit Provider: Andrei Stevens Primary Care Provider: Julito Burt Other Providers: Andrei Stevens; Charlee Avendaño Other Interventions: Discharge Summary Assessment (RN) Last Done: 08/20/23 14:08 Coding Level of Care Code 33530 IN/OBS DISCH 30 MIN/LESS Diagnoses Acute UTI N39.0 AMS (altered mental status) R41.82 Altered mental status type: unspecified Acute hypercapnic respiratory failure J96.02 Obstructive sleep apnea G47.33 Restrictive lung disease J98.4 Cardiomyopathy I42.9 Hypothyroidism, unspecified type E03.9 Hypothyroidism type: unspecified End-stage renal disease on hemodialysis N18.6; Z99.2
== END 2023-08-20 15:06 | disposition home or self-care (01) | DRG 871 ==
LOC: ED 08:46 → SUATTDRO 10:44 → EDINP 10:44 → 2E 11:30 → 3N 08-18 15:26

== ENCOUNTER 2024-02-21 11:57 | Inpatient (IN) ==
[2024-02-21] MEDS: ALBUTEROL 0.083% NEBU SOLN 3 ML VIAL ONE (12:14)
[2024-02-21] MEDS: CALCIUM GLUCONATE 1,000 MG/60 ML BAG IV STA (12:18)
[2024-02-21] MEDS: SODIUM BICARB 8.4% INJ 50 MEQ/50 ML SYR IV STA (12:19)
[2024-02-21] MEDS: DEXTROSE 50% 50 ML SYRINGE IV STA (12:19)
[2024-02-21] MEDS: INSULIN HUMAN REGULAR PER UNIT 10 UNITS in SYRINGE 9.9 ML IV STA (12:19)
[2024-02-21] MEDS: ALBUTEROL 0.5% NEB SOLN 2.5 MG/0.5 ML VIAL NEB STA (12:21)
[2024-02-21] MEDS: ALBUTEROL 0.083% NEBU SOLN 3 ML VIAL NEB STA (12:21)
[2024-02-21] MEDS: CALCIUM GLUCONATE 1000 MG/60 ML NSS IV ONE (12:22)
[2024-02-21] MEDS: SODIUM ZIRCONIUM CYCLOSILICATE 10 GM PACKET PO ONE (12:23)
--- NOTE | 2024-02-21 12:23 | Emergency Department Note ---
History of Present Illness General Chief Complaint: Shortness of Breath/Dyspnea Stated Complaint: SOB Time Seen by Provider: 02/21/24 11:59 History of Present Illness Provider Complaint: shortness of breath Onset (ago): day(s) (1) Consistency/Duration: + progressively worsening Relieved By: + oxygen and + upright position Exacerbated By: + lying flat Known history of: COPD and congestive heart failure Associated symptoms: no chest pain, no nausea/vomiting or no chest congestion Treatment prior to arrival: oxygen HPI Narrative: End-stage renal disease on hemodialysis Wednesday. Patient states she had a full session of hemodialysis on Wednesday. Home Medications Medication Instructions Recorded Confirmed Type vit B complx, C-iron 8 mg-folic 1 tab PO QDL 02/27/20 02/21/24 History acid 800 mcg-D3 1,000 unit-zinc tablet (ProRenal) lancets 33 gauge (In[facility] ea 11/27/20 01/21/24 Rx Lancets) calcium acetate 667 mg tablet 667 mg PO UD 12/17/20 02/21/24 History sodium zirconium cyclosilicate 5 5 g PO 4XWK 03/25/22 02/21/24 History gram oral powder packet (Lokelma) blood sugar diagnostic (OneTouch #300 ea 07/31/22 01/21/24 Rx Verio test strips) blood-glucose meter (OneTouch #1 ea 07/31/22 01/21/24 Rx Verio Meter) cholecalciferol (vitamin D3) 50 50 mcg PO DAILY #90 caps 07/31/22 02/21/24 Rx mcg (2,000 unit) capsule ondansetron 8 mg disintegrating 8 mg PO Q8H PRN Nausea #90 tabs 07/31/22 02/21/24 Rx tablet Oxygen Home #1 ea 09/04/22 01/21/24 Rx amlodipine 10 mg tablet 10 mg PO DAILY #90 tabs 07/28/23 02/21/24 Rx carvedilol 12.5 mg tablet (Coreg) 12.5 mg PO BID #180 tabs 08/03/23 02/21/24 Rx polyethylene glycol 3350 17 17 g PO DAILY #510 grams 08/03/23 02/21/24 Rx gram/dose oral powder (Miralax) lactulose 10 gram/15 mL oral 15 ml PO DAILY PRN Constipation 08/13/23 02/21/24 Rx solution #1,350 mL buspirone 5 mg tablet 5 mg PO BID #180 tabs 09/16/23 02/21/24 Rx pantoprazole 40 mg tablet,delayed 40 mg PO BID 90 days #180 tabs 09/16/23 02/21/24 Rx release venlafaxine 75 mg capsule,extended 75 mg PO DAILY #90 caps 09/16/23 02/21/24 Rx release 24 hr gabapentin 300 mg capsule 300 mg PO 3XWK #36 caps 10/18/23 02/21/24 Rx levothyroxine 100 mcg tablet 100 mcg PO QPM #90 tabs 01/21/24 02/21/24 Rx lorazepam 1 mg tablet 0.5 mg (1/2 x 1 mg) PO BID PRN 01/21/24 02/21/24 Rx anxiety #30 tabs oxycodone 5 mg tablet 2.5 mg (1/2 x 5 mg) PO BID PRN 01/21/24 02/21/24 Rx pain #30 tabs olanzapine 10 mg tablet See Rx Instructions PO BID #90 tabs 01/24/24 02/21/24 Rx hydralazine 25 mg tablet 25 mg PO TID 02/21/24 02/21/24 History Allergies Allergy/AdvReac Type Severity Reaction Status Date / Time lisinopril AdvReac Intermediate cough Verified 02/21/24 13:47 Past Med/Surg History Problem List (Updated 02/21/24 @ 15:58 by Sebas Richards MD) Acute respiratory failure with hypoxia and hypercarbia Acute hyperkalemia (Acute) Elevated troponin (Acute) Metabolic acidosis (Acute) Leukocytosis (Acute) AMS (altered mental status) (Acute) Earache on left Sore throat COPD, 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 Counseling regarding advanced directives and goals of care Palliative care by specialist AMS (altered mental status) (Acute) Confusion Metabolic encephalopathy Arthralgia of right foot Chronic kidney disease-mineral and bone disorder Hypertension Diabetes mellitus Anemia Coronary artery disease Hypothyroidism Vitamin D deficiency (Acute) Polyarthritis (Acute) Paresthesias (Acute) Obstructive sleep apnea (Acute) Insomnia (Acute) Dyslipidemia (Acute) Diabetic retinopathy (Acute) Depression with anxiety (Acute) Cardiomyopathy Restrictive lung disease (Acute) End-stage renal disease on hemodialysis (Acute) CHF (congestive heart failure) (Acute) Polymyalgia rheumatica Chronic respiratory failure with hypoxia (Acute) Abnormal chest CT Hypertension (Acute) Weakness (Acute) Diverticulitis (Acute) Hiatal hernia with gastroesophageal reflux disease and esophagitis Early satiety Nausea & vomiting Type 2 diabetes mellitus with diabetic neuropathy (Acute) Right leg pain Leg edema, right Contusion of face Right facial numbness History of fracture of orbit (~06/20/21) Memory change Neuropathy Abnormal gait RLS (restless legs syndrome) Low back pain Seizure-like activity Elevated ferritin level Tremor Depression Anxiety Medical History Acute and chronic respiratory failure with hypoxia Acute and chronic respiratory failure with hypercapnia Acute respiratory failure with hypoxia and hypercarbia Weakness generalized Cellulitis of right leg Morbid obesity with BMI of 40.0-44.9, adult Diabetic eyes Hallucinations Fatigue Abnormal EKG Acute electrocardiogram changes Transaminitis Elevated troponin Myoclonus Acute hyperkalemia Hyperkalemia, diminished renal excretion Laceration of left lower extremity Hernia, hiatal GERD without esophagitis Macular puckering, bilateral Panniculitis Tubular adenoma of colon Hypertension History of thrombophlebitis Arthritis Surgical History History of tonsillectomy S/P repair of paraesophageal hernia History of nasal septoplasty History of cataract surgery History of bladder surgery S/P arteriovenous (AV) fistula creation S/P rotator cuff repair S/P hysterectomy H/O: hysterectomy Family History Mother Leukemia Cerebral aneurysm Hypertension Anxiety Diabetes Cancer Heart disease Grandmother Hypertension Father Osteoarthritis COPD (chronic obstructive pulmonary disease) Diabetes Hearing loss Sister Diabetes Myocardial infarction COPD (chronic obstructive pulmonary disease) Hypertension Brother Myocardial infarction Diabetes Cancer Stomach cancer Other No family history of bleeding disorder Denies family history of Ovarian cancer Prostate cancer Breast cancer Colorectal cancer Stroke Asthma Social History Smoking Status: Never smoker Second Hand Exposure: No; Do You Dip or Chew Tobacco: No; Hx Alcohol Use: No Hx Substance Use: No Preferred Language: Korean Communication Ability: Effective Visual Impairment: No Limitations Hearing Ability: Normal Machinist Class B Required: No Beliefs That Will Affect Care: None marital status: Current Living Situation: Spouse Current Living Situation Comment: Lives with current occupational status: retired How many Children do You have: 1 Feels Safe at Home: Yes Dental Care, Regularly: No Physical Activity Frequency: 1-2 Times per Week Seatbelt Use: always Assistive Devices: BiPap, CPAP, Glasses, Oxygen - Continuous and Walker Physical Exam 2 Vital Signs: Vital Signs - 24 hr 02/21/24 12:04 02/21/24 12:04 02/21/24 12:04 Temperature 36.4 C L Temperature Source Oral Pulse Rate 59 L Pulse Rhythm Irregular Respiratory Rate 20 Respiratory Effort / Characteristics Non-Labored Sponta neous Non-Labored Sponta neous Respiratory Depth Normal Normal Respiratory Patter n Regular Regular Blood Pressure 128/66 Blood Pressure Jovita n 86 Pulse Oximetry 100 100 Oxygen Delivery Me thod Non-rebreather Non-rebreather Non-rebreather Oxygen Flow Rate 15 15 15 Sepsis Recent Feve r Within 48 Hours No Sepsis New/Unexpla ined Change in Men leidy Status N/A Sepsis Action Take n by Nursing No Action Required Oxygen Flow Rate - Titration 4 Pulse Oximetry Pos t Tiitration 94 02/21/24 12:04 02/21/24 12:16 02/21/24 12:34 Temperature Temperature Source Pulse Rate Pulse Rhythm Respiratory Rate 18 Respiratory Effort / Characteristics Non-Labored Sponta neous Respiratory Depth Respiratory Patter n Blood Pressure Blood Pressure Jovita n Pulse Oximetry 94 95 92 Oxygen Delivery Me thod Nasal Cannula Nasal Cannula Nasal Cannula Oxygen Flow Rate 4 4 4 Sepsis Recent Feve r Within 48 Hours Sepsis New/Unexpla ined Change in Men leidy Status Sepsis Action Take n by Nursing Oxygen Flow Rate - Titration 6 Pulse Oximetry Pos t Tiitration 96 02/21/24 12:39 Temperature Temperature Source Pulse Rate 57 L Pulse Rhythm Respiratory Rate Respiratory Effort / Characteristics Respiratory Depth Respiratory Patter n Blood Pressure Blood Pressure Jovita n Pulse Oximetry Oxygen Delivery Me thod Oxygen Flow Rate Sepsis Recent Feve r Within 48 Hours Sepsis New/Unexpla ined Change in Men leidy Status Sepsis Action Take n by Nursing Oxygen Flow Rate - Titration Pulse Oximetry Pos t Tiitration Physical Exam: Physical Exam HENT: Exam performed. -Head: Normocephalic and atraumatic. CV: Normal rate, regular rhythm, normal heart sounds and intact distal pulses. There is 1+ pitting edema of the bilateral lower extremities. Palpable radial pulses bue. PULM/CHEST: Rales bilaterally. ABD: The abdomen is soft. MUSC/SKEL: Right upper extremity fistula with palpable thrill NEURO: She is alert and oriented to person, place, and time. Patient states that he is a grossly intact. Course Course 1159: The patient was evaluated in room B4. A complete history and physical exam was performed Cardiac monitoring: An order was placed for continuous cardiac monitoring. The monitor shows a rate of 48 with sinus rhythm interpreted by me 1205: Patient's EKG is highly concerning for hyperkalemia. Patient given 1 g of calcium gluconate as well as started on albuterol nebulizer until i-STAT comes back. 1212: Patient's i-STAT shows a potassium of 8.9. Lokelma 1 amp of bicarb and 10 units of insulin with 1 amp of D50 ordered. Calcium gluconate is infusing and nebulizer with albuterol is already being administered. 1224: Spoke with Dr. Martinez nephrology. She states she will speak with dialysis nurse and arrange for hemodialysis emergently for the patient. 1235: Patient's EKG is starting to normalize with QRS improving. Spoke with Dr. Richards [facility] who will place admission orders evaluate the patient for admission. Dr. Nina ICU also made aware of patient. Administered Medications Insulin Aspart (Insulin Aspart Per Unit Charge) 0 units SC Q6 ENRIQUETA Stop: 03/22/24 16:29 Last Admin: 02/21/24 18:05 Dose: Not Given Documented By: CHIDI Discontinued Medications Albuterol (Albuterol 0.083% Nebu Soln 3 Ml Vial) 5 mg NEB NOW STA; Protocol Stop: 02/21/24 12:07 Last Admin: 02/21/24 12:21 Dose: Not Given Documented By: TIERNEY Albuterol (Albuterol 0.083% Nebu Soln 3 Ml Vial) Confirm Administered Dose 2.5 mg .ROUTE .STK-MED ONE Stop: 02/21/24 12:10 Last Admin: 02/21/24 12:14 Dose: 2.5 mg Documented By: JOHN Albuterol (Albuterol 0.5% Neb Soln 2.5 Mg/0.5 Ml Vial) 10 mg NEB NOW STA Stop: 02/21/24 12:14 Last Admin: 02/21/24 12:21 Dose: Not Given Documented By: TIERNEY Calcium Gluconate (Calcium Gluconate 1000 Mg/60 Ml Nss) Confirm Administered Dose 1,000 mg IV .STK-MED ONE Stop: 02/21/24 12:08 Last Admin: 02/21/24 12:22 Dose: Not Given Documented By: TIERNEY Dextrose (Dextrose 50% 50 Ml Syringe) 50 ml IV NOW STA Stop: 02/21/24 12:14 Last Admin: 02/21/24 12:19 Dose: 50 ml Documented By: TIERNEY Heparin Sodium (Porcine) (Heparin Sod (Porcine) 1000 Unit/Ml) 2,000 units IV ONE ONE Stop: 02/21/24 13:19 Last Admin: 02/21/24 16:31 Dose: Not Given Documented By: LISSETH Heparin Sodium (Porcine) (Heparin Sod (Porcine) 1000 Unit/Ml) 1,000 units IV Q1H ENRIQUETA Stop: 02/21/24 14:31 Last Admin: 02/21/24 16:31 Dose: Not Given Documented By: Admin: 02/21/24 16:31 Dose: Not Given Documented By: LISSETH Calcium Gluconate () 1,000 mg in 60 mls @ 240 mls/hr IV NOW STA Stop: 02/21/24 12:20 Last Infusion: 02/21/24 12:39 Dose: Infused Documented By: Admin: 02/21/24 12:18 Dose: 240 mls/hr Documented By: TIERNEY Insulin Human Regular 10 units (/ Syringe) 9.9 mls @ 3 mls/sec IV ONE STA Stop: 02/21/24 12:14 Last Admin: 02/21/24 12:19 Dose: 3 mls/sec Documented By: TIERNEY Co-signed By: DEMI Calcium Gluconate () 1,000 mg in 60 mls @ 240 mls/hr IV Q15M ENRIQUETA Stop: 02/21/24 14:44 Last Infusion: 02/21/24 15:00 Dose: Infused Documented By: Admin: 02/21/24 14:39 Dose: 240 mls/hr Documented By: Infusion: 02/21/24 14:39 Dose: Infused Documented By: Admin: 02/21/24 14:24 Dose: 240 mls/hr Documented By: CHIDI Insulin Human Regular (Novolin-R Insulin Per Unit Charge) Confirm Administered Dose 10 units .ROUTE .STK-MED ONE Stop: 02/21/24 12:19 Last Admin: 02/21/24 12:32 Dose: Not Given Documented By: KATHY Miscellaneous (Icu Protocol For Hyperglycemia) 1 each N/A ACHS ENRIQUETA Stop: 02/23/24 16:29 Last Admin: 02/21/24 16:26 Dose: Not Given Documented By: CHIDI Sodium Bicarbonate (Sodium Bicarb 8.4% Inj 50 Meq/50 Ml Syr) 50 meq IV NOW STA Stop: 02/21/24 12:14 Last Admin: 02/21/24 12:19 Dose: 50 meq Documented By: TIERNEY Sodium Zirconium Cyclosilicate (Sodium Zirconium Cyclosilicate 10 Gm Packet) Confirm Administered Dose 10 gm .ROUTE .STK-MED ONE Stop: 02/21/24 12:21 Last Admin: 02/21/24 12:32 Dose: Not Given Documented By: KATHY Sodium Zirconium Cyclosilicate (Sodium Zirconium Cyclosilicate 10 Gm Packet) 10 gm PO NOW ONE Stop: 02/21/24 12:31 Last Admin: 02/21/24 12:23 Dose: 10 gm Documented By: TIERNEY Medical Decision Making Laboratory Data Attestation: I reviewed the patient's lab results. 02/21/24 11:59 02/21/24 11:59 Lab Results 02/21/24 02/21/24 02/21/24 Range/Units 11:59 11:59 11:59 WBC 8.20 (4.8-10.8) K/ul RBC 3.53 L (4.20-5.40) M/uL Hgb 11.2 L (12.0-16.0) g/dl POC Hgb (12.0-16.0) g/dl Hct 38.8 (37.0-47.0) % POC Hct (37-47) % MCV 109.9 H (80.0-100.0) fL MCH 31.7 (25.0-34.0) pg MCHC 28.9 L (32.0-36.0) g/dL RDW Std Deviation 60.1 H (36.4-46.3) fL RDW Coeff of Jared 14.9 H (11.5-14.5) % Plt Count 225 (130-400) K/uL MPV 10.0 (9.4-12.4) fL Immature Gran % (Auto) 0.4 % Neut % (Auto) 71.5 % Lymph % (Auto) 14.4 % Banner % (Auto) 10.6 % Eos % (Auto) 2.2 % Baso % (Auto) 0.9 % Neut # (Auto) 5.87 (1.40-6.50) K/uL Lymph # (Auto) 1.18 L (1.20-3.40) K/uL Banner # (Auto) 0.87 H (0.11-0.59) K/uL Eos # (Auto) 0.18 (0.00-0.50) K/uL Baso # (Auto) 0.07 (0.00-0.20) K/uL Immature Gran # (Auto) 0.03 (0.01-0.20) K/uL PT 10.7 (9.0-12.0) Seconds INR 1.0 (0.9-1.1) APTT 25 (21-31) Seconds PTT Ratio 0.9 VBG pH 7.26 L (7.36-7.41) VBG pCO2 82 H (38-50) mmHg VBG pO2 24 mmHg VBG HCO3 37 mmol/L VBG O2 Saturation < 60.0 % VBG Base Excess 6.6 mEq/L POC Sodium (135-144) mmol/L Sodium Cancelled 133 L POC Potassium (3.3-5.0) mmol/L Potassium Cancelled 9.0 H* POC Chloride (101-112) mmol/L Chloride Cancelled Carbon Dioxide POC Total CO2 (24-31) mmol/L Anion Gap POC Anion Gap (16-25) mmol/L POC BUN (7-18) mg/dl BUN Creatinine POC Creatinine (0.6-1.3) mg/dl Est Cr Clr Drug Dosing Est GFR ( Amer) Est GFR (Non-Af Amer) BUN/Creatinine Ratio Glucose POC Glucose (70-99) mg/dl POC Glucose (other) (70-99) mg/dl Calcium POC Ioniz Calcium Ramana (1.12-1.32) mmol/l Troponin I High Sens (0-14) pg/ml B-Natriuretic Peptide (0-100) pg/ml Lipase SARS-CoV-2 (PCR) (Negative) Influenza Type A (PCR) (Neg) Influenza Type B (PCR) (Neg) RSV (RT-PCR) (Neg) 02/21/24 02/21/24 02/21/24 Range/Units 11:59 11:59 11:59 WBC (4.8-10.8) K/ul RBC (4.20-5.40) M/uL Hgb (12.0-16.0) g/dl POC Hgb (12.0-16.0) g/dl Hct (37.0-47.0) % POC Hct (37-47) % MCV (80.0-100.0) fL MCH (25.0-34.0) pg MCHC (32.0-36.0) g/dL RDW Std Deviation (36.4-46.3) fL RDW Coeff of Jared (11.5-14.5) % Plt Count (130-400) K/uL MPV (9.4-12.4) fL Immature Gran % (Auto) % Neut % (Auto) % Lymph % (Auto) % Banner % (Auto) % Eos % (Auto) % Baso % (Auto) % Neut # (Auto) (1.40-6.50) K/uL Lymph # (Auto) (1.20-3.40) K/uL Banner # (Auto) (0.11-0.59) K/uL Eos # (Auto) (0.00-0.50) K/uL Baso # (Auto) (0.00-0.20) K/uL Immature Gran # (Auto) (0.01-0.20) K/uL PT (9.0-12.0) Seconds INR (0.9-1.1) APTT (21-31) Seconds PTT Ratio VBG pH (7.36-7.41) VBG pCO2 (38-50) mmHg VBG pO2 mmHg VBG HCO3 mmol/L VBG O2 Saturation % VBG Base Excess mEq/L POC Sodium (135-144) mmol/L Sodium POC Potassium (3.3-5.0) mmol/L Potassium POC Chloride (101-112) mmol/L Chloride 93 L Carbon Dioxide Cancelled 36 H POC Total CO2 (24-31) mmol/L Anion Gap Cancelled 4 POC Anion Gap (16-25) mmol/L POC BUN (7-18) mg/dl BUN Cancelled Creatinine POC Creatinine (0.6-1.3) mg/dl Est Cr Clr Drug Dosing Est GFR ( Amer) Est GFR (Non-Af Amer) BUN/Creatinine Ratio Glucose POC Glucose (70-99) mg/dl POC Glucose (other) (70-99) mg/dl Calcium POC Ioniz Calcium Ramana (1.12-1.32) mmol/l Troponin I High Sens (0-14) pg/ml B-Natriuretic Peptide (0-100) pg/ml Lipase SARS-CoV-2 (PCR) (Negative) Influenza Type A (PCR) (Neg) Influenza Type B (PCR) (Neg) RSV (RT-PCR) (Neg) 02/21/24 02/21/24 02/21/24 Range/Units 11:59 11:59 11:59 WBC (4.8-10.8) K/ul RBC (4.20-5.40) M/uL Hgb (12.0-16.0) g/dl POC Hgb (12.0-16.0) g/dl Hct (37.0-47.0) % POC Hct (37-47) % MCV (80.0-100.0) fL MCH (25.0-34.0) pg MCHC (32.0-36.0) g/dL RDW Std Deviation (36.4-46.3) fL RDW Coeff of Jared (11.5-14.5) % Plt Count (130-400) K/uL MPV (9.4-12.4) fL Immature Gran % (Auto) % Neut % (Auto) % Lymph % (Auto) % Banner % (Auto) % Eos % (Auto) % Baso % (Auto) % Neut # (Auto) (1.40-6.50) K/uL Lymph # (Auto) (1.20-3.40) K/uL Banner # (Auto) (0.11-0.59) K/uL Eos # (Auto) (0.00-0.50) K/uL Baso # (Auto) (0.00-0.20) K/uL Immature Gran # (Auto) (0.01-0.20) K/uL PT (9.0-12.0) Seconds INR (0.9-1.1) APTT (21-31) Seconds PTT Ratio VBG pH (7.36-7.41) VBG pCO2 (38-50) mmHg VBG pO2 mmHg VBG HCO3 mmol/L VBG O2 Saturation % VBG Base Excess mEq/L POC Sodium (135-144) mmol/L Sodium POC Potassium (3.3-5.0) mmol/L Potassium POC Chloride (101-112) mmol/L Chloride Carbon Dioxide POC Total CO2 (24-31) mmol/L Anion Gap POC Anion Gap (16-25) mmol/L POC BUN (7-18) mg/dl BUN 54 H Creatinine Cancelled 7.70 H* POC Creatinine (0.6-1.3) mg/dl Est Cr Clr Drug Dosing Cancelled 6.2 Est GFR ( Amer) Cancelled Est GFR (Non-Af Amer) BUN/Creatinine Ratio Glucose POC Glucose (70-99) mg/dl POC Glucose (other) (70-99) mg/dl Calcium POC Ioniz Calcium Ramana (1.12-1.32) mmol/l Troponin I High Sens (0-14) pg/ml B-Natriuretic Peptide (0-100) pg/ml Lipase SARS-CoV-2 (PCR) (Negative) Influenza Type A (PCR) (Neg) Influenza Type B (PCR) (Neg) RSV (RT-PCR) (Neg) 02/21/24 02/21/24 02/21/24 Range/Units 11:59 11:59 11:59 WBC (4.8-10.8) K/ul RBC (4.20-5.40) M/uL Hgb (12.0-16.0) g/dl POC Hgb (12.0-16.0) g/dl Hct (37.0-47.0) % POC Hct (37-47) % MCV (80.0-100.0) fL MCH (25.0-34.0) pg MCHC (32.0-36.0) g/dL RDW Std Deviation (36.4-46.3) fL RDW Coeff of Jared (11.5-14.5) % Plt Count (130-400) K/uL MPV (9.4-12.4) fL Immature Gran % (Auto) % Neut % (Auto) % Lymph % (Auto) % Banner % (Auto) % Eos % (Auto) % Baso % (Auto) % Neut # (Auto) (1.40-6.50) K/uL Lymph # (Auto) (1.20-3.40) K/uL Banner # (Auto) (0.11-0.59) K/uL Eos # (Auto) (0.00-0.50) K/uL Baso # (Auto) (0.00-0.20) K/uL Immature Gran # (Auto) (0.01-0.20) K/uL PT (9.0-12.0) Seconds INR (0.9-1.1) APTT (21-31) Seconds PTT Ratio VBG pH (7.36-7.41) VBG pCO2 (38-50) mmHg VBG pO2 mmHg VBG HCO3 mmol/L VBG O2 Saturation % VBG Base Excess mEq/L POC Sodium (135-144) mmol/L Sodium POC Potassium (3.3-5.0) mmol/L Potassium POC Chloride (101-112) mmol/L Chloride Carbon Dioxide POC Total CO2 (24-31) mmol/L Anion Gap POC Anion Gap (16-25) mmol/L POC BUN (7-18) mg/dl BUN Creatinine POC Creatinine (0.6-1.3) mg/dl Est Cr Clr Drug Dosing Est GFR ( Amer) 5.3 Est GFR (Non-Af Amer) Cancelled 4.6 BUN/Creatinine Ratio Cancelled 7.0 L Glucose Cancelled POC Glucose (70-99) mg/dl POC Glucose (other) (70-99) mg/dl Calcium POC Ioniz Calcium Ramana (1.12-1.32) mmol/l Troponin I High Sens (0-14) pg/ml B-Natriuretic Peptide (0-100) pg/ml Lipase SARS-CoV-2 (PCR) (Negative) Influenza Type A (PCR) (Neg) Influenza Type B (PCR) (Neg) RSV (RT-PCR) (Neg) 02/21/24 02/21/24 02/21/24 Range/Units 11:59 11:59 11:59 WBC (4.8-10.8) K/ul RBC (4.20-5.40) M/uL Hgb (12.0-16.0) g/dl POC Hgb (12.0-16.0) g/dl Hct (37.0-47.0) % POC Hct (37-47) % MCV (80.0-100.0) fL MCH (25.0-34.0) pg MCHC (32.0-36.0) g/dL RDW Std Deviation (36.4-46.3) fL RDW Coeff of Jared (11.5-14.5) % Plt Count (130-400) K/uL MPV (9.4-12.4) fL Immature Gran % (Auto) % Neut % (Auto) % Lymph % (Auto) % Banner % (Auto) % Eos % (Auto) % Baso % (Auto) % Neut # (Auto) (1.40-6.50) K/uL Lymph # (Auto) (1.20-3.40) K/uL Banner # (Auto) (0.11-0.59) K/uL Eos # (Auto) (0.00-0.50) K/uL Baso # (Auto) (0.00-0.20) K/uL Immature Gran # (Auto) (0.01-0.20) K/uL PT (9.0-12.0) Seconds INR (0.9-1.1) APTT (21-31) Seconds PTT Ratio VBG pH (7.36-7.41) VBG pCO2 (38-50) mmHg VBG pO2 mmHg VBG HCO3 mmol/L VBG O2 Saturation % VBG Base Excess mEq/L POC Sodium (135-144) mmol/L Sodium POC Potassium (3.3-5.0) mmol/L Potassium POC Chloride (101-112) mmol/L Chloride Carbon Dioxide POC Total CO2 (24-31) mmol/L Anion Gap POC Anion Gap (16-25) mmol/L POC BUN (7-18) mg/dl BUN Creatinine POC Creatinine (0.6-1.3) mg/dl Est Cr Clr Drug Dosing Est GFR ( Amer) Est GFR (Non-Af Amer) BUN/Creatinine Ratio Glucose 177 H POC Glucose (70-99) mg/dl POC Glucose (other) (70-99) mg/dl Calcium Cancelled 9.7 POC Ioniz Calcium Ramana (1.12-1.32) mmol/l Troponin I High Sens 20.8 H (0-14) pg/ml B-Natriuretic Peptide 1072 H (0-100) pg/ml Lipase Cancelled 26 SARS-CoV-2 (PCR) (Negative) Influenza Type A (PCR) (Neg) Influenza Type B (PCR) (Neg) RSV (RT-PCR) (Neg) 02/21/24 02/21/24 02/21/24 Range/Units 12:03 12:11 12:42 WBC (4.8-10.8) K/ul RBC (4.20-5.40) M/uL Hgb (12.0-16.0) g/dl POC Hgb 12.2 (12.0-16.0) g/dl Hct (37.0-47.0) % POC Hct 36 L (37-47) % MCV (80.0-100.0) fL MCH (25.0-34.0) pg MCHC (32.0-36.0) g/dL RDW Std Deviation (36.4-46.3) fL RDW Coeff of Jared (11.5-14.5) % Plt Count (130-400) K/uL MPV (9.4-12.4) fL Immature Gran % (Auto) % Neut % (Auto) % Lymph % (Auto) % Banner % (Auto) % Eos % (Auto) % Baso % (Auto) % Neut # (Auto) (1.40-6.50) K/uL Lymph # (Auto) (1.20-3.40) K/uL Banner # (Auto) (0.11-0.59) K/uL Eos # (Auto) (0.00-0.50) K/uL Baso # (Auto) (0.00-0.20) K/uL Immature Gran # (Auto) (0.01-0.20) K/uL PT (9.0-12.0) Seconds INR (0.9-1.1) APTT (21-31) Seconds PTT Ratio VBG pH (7.36-7.41) VBG pCO2 (38-50) mmHg VBG pO2 mmHg VBG HCO3 mmol/L VBG O2 Saturation % VBG Base Excess mEq/L POC Sodium 133 L (135-144) mmol/L Sodium POC Potassium 8.9 H* (3.3-5.0) mmol/L Potassium POC Chloride 98 L (101-112) mmol/L Chloride Carbon Dioxide POC Total CO2 37 H (24-31) mmol/L Anion Gap POC Anion Gap 7.0 L (16-25) mmol/L POC BUN 51 H (7-18) mg/dl BUN Creatinine POC Creatinine 7.9 H* (0.6-1.3) mg/dl Est Cr Clr Drug Dosing Est GFR ( Amer) Est GFR (Non-Af Amer) BUN/Creatinine Ratio Glucose POC Glucose 275 H (70-99) mg/dl POC Glucose (other) 177 H (70-99) mg/dl Calcium POC Ioniz Calcium Ramana 1.18 (1.12-1.32) mmol/l Troponin I High Sens (0-14) pg/ml B-Natriuretic Peptide (0-100) pg/ml Lipase SARS-CoV-2 (PCR) NEGATIVE (Negative) Influenza Type A (PCR) Negative (Neg) Influenza Type B (PCR) Negative (Neg) RSV (RT-PCR) Negative (Neg) Imaging Data Attestation: I personally reviewed and interpreted this imaging study as follows: My Impression: Cardiomegaly with cephalization Radiologist's Impression: Chest X-Ray 02/21/24 12:04 XR chest 1V portable HISTORY: 78 years-old Female Chest pain, nonspecific COMPARISON: 1124 TECHNIQUE: AP view of the chest FINDINGS: Cardiac silhouette is enlarged. There is unchanged right hemidiaphragmatic elevation. Mild bibasilar atelectasis versus scarring. No pneumothorax, or pleural effusion. Bones appear intact. IMPRESSION: 1. Cardiomegaly without acute process. 2. Unchanged right hemidiaphragmatic elevation. ACT 112: Negative or not required by law. The above report was generated using voice recognition software. It may contain grammatical, syntax or spelling errors. Electronically signed by: Josh Oro M.D. 02/21/2024 12:32 PM ECG Data Attestation: I personally reviewed and interpreted this ECG as follows: Interpretation: EKG #1 at 1205: Junctional rhythm with a rate of 42. No P waves present. Widened QRS. Peaked T waves. concerning for hyperkalemia. EKG #2 at 1228 status post calcium gluconate with albuterol nebulizer running: Junctional rhythm with a rate of 66. QRS improving. Peaked T waves. No ST elevation or ST depression. [facility] Narrative 1159: The patient was evaluated in room B4. A complete history and physical exam was performed Cardiac monitoring: An order was placed for continuous cardiac monitoring. The monitor shows a rate of 48 with sinus rhythm interpreted by me 1205: Patient's EKG is highly concerning for hyperkalemia. Patient given 1 g of calcium gluconate as well as started on albuterol nebulizer until i-STAT comes back. 1212: Patient's i-STAT shows a potassium of 8.9. Lokelma 1 amp of bicarb and 10 units of insulin with 1 amp of D50 ordered. Calcium gluconate is infusing and nebulizer with albuterol is already being administered. 1224: Spoke with Dr. Martinez nephrology. She states she will speak with dialysis nurse and arrange for hemodialysis emergently for the patient. 1235: Patient's EKG is starting to normalize with QRS improving. Spoke with Dr. Richards [facility] hospitalist who will place admission orders evaluate the patient for admission. Dr. Nina ICU also made aware of patient. Impression & Plan Acute hyperkalemia, End-stage renal disease on hemodialysis Critical Care Time Critical Care Time: Yes Total Critical Care Time: 36 I have personally spent greater than 36 minutes of critical care time in the direct management of this patient. This includes bedside care, interpretation of diagnostic studies, and testing, discussion with consultants, patient, and family members, and other required patient management activities. This 36 minutes is in excess of all separately billable procedures. Discharge Plan Visit Data Chief Complaint: Shortness of Breath/Dyspnea Stated Complaint: SOB ED Provider: Jacky Kolb Discharge Problem: Acute hyperkalemia, End-stage renal disease on hemodialysis Patient Disposition: Admitted As Inpatient Discharge Instructions Interventions: ED Discharge Assessment Last Done: 02/21/24 14:19
[2024-02-21 12:24] LABS: iSTAT Creatinine 7.9 mg/dl (0.6-1.3); iSTAT Hemoglobin 12.2 g/dl (12.0-16.0); iSTAT Ionized Calcium 1.18 mmol/l (1.12-1.32); iSTAT Potassium 8.9 mmol/L (3.3-5.0)
[2024-02-21] MEDS: SODIUM ZIRCONIUM CYCLOSILICATE 10 GM PACKET ONE (12:32)
[2024-02-21] MEDS: NovoLIN-R INSULIN PER UNIT CHARGE ONE (12:32)
--- NOTE | 2024-02-21 12:33 | XRay Report ---
XR chest 1V portable HISTORY: 78 years-old Female Chest pain, nonspecific COMPARISON: 1124 TECHNIQUE: AP view of the chest FINDINGS: Cardiac silhouette is enlarged. There is unchanged right hemidiaphragmatic elevation. Mild bibasilar atelectasis versus scarring. No pneumothorax, or pleural effusion. Bones appear intact. IMPRESSION: 1. Cardiomegaly without acute process. 2. Unchanged right hemidiaphragmatic elevation. ACT 112: Negative or not required by law. The above report was generated using voice recognition software. It may contain grammatical, syntax o r spelling errors. Electronically signed by: Josh Oro M.D. 02/21/2024 12:32 PM
[2024-02-21 12:36] LABS: Base Excess VBG 6.6 mEq/L; HCO3 VBG 37 mmol/L; Oxygen Saturation VBG < 60.0 %; PCO2 VBG 82 mmHg (38-50); PO2 VBG 24 mmHg; pH VBG 7.26 (7.36-7.41)
[2024-02-21 12:43] LABS: Basophils # (auto) 0.07 K/uL (0.00-0.20); Basophils % (auto) 0.9 %; Eosinophils # (auto) 0.18 K/uL (0.00-0.50); Eosinophils % (auto) 2.2 %; Hematocrit (blood only) 38.8 % (37.0-47.0); Hemoglobin 11.2 g/dl (12.0-16.0); Immature Granulocytes # (auto) 0.03 K/uL (0.01-0.20); Immature Granulocytes % (auto) 0.4 %; Lymphocytes # (auto) 1.18 K/uL (1.20-3.40); Lymphocytes % (auto) 14.4 %; Mean Corpuscular Hemoglobin 31.7 pg (25.0-34.0); Mean Corpuscular Hgb Conc 28.9 g/dL (32.0-36.0); Mean Corpuscular Volume 109.9 fL (80.0-100.0); Monocytes # (auto) 0.87 K/uL (0.11-0.59); Monocytes % (auto) 10.6 %; Neutrophils # (auto) 5.87 K/uL (1.40-6.50); Neutrophils % (auto) 71.5 %; Platelet Count 225 K/uL (130-400); RDW Coefficient of Variation 14.9 % (11.5-14.5); RDW Standard Deviation 60.1 fL (36.4-46.3); Red Blood Count 3.53 M/uL (4.20-5.40)
[2024-02-21 13:02] LABS: Partial Thromboplastin Ratio 0.9; Partial Thromboplastin Time 25 Seconds (21-31); Prothrombin Time 10.7 Seconds (9.0-12.0)
--- NOTE | 2024-02-21 13:12 | History & Physical Report ---
Date of Service February 21, 2024 Assessment & Plan (1) Acute hyperkalemia: Plan: Admit to ICU. POC K 8.9. EKG on arrival to the ER with widened QRS of 240 ms, rate 30-60 bpm, no p waves ESRD on dialysis, no exacerbating cause found; no missed dialysis, change in med ications or potassium supplementation Emergency treatment given in the ER with calcium gluconate, insulin/dextrose, Lokelma, Sodium bicarb with improvement in EKG findings Lokelma 10mg PO TID Emergent dialysis to be arranged by nephrology (2) Acute heart failure with preserved ejection fraction: Plan: Management with dialysis (3) Acute respiratory failure with hypoxia and hypercarbia: Plan: CXR without acute process, Lung auscultation normal, suspect some degree of hypervolemia Cepheid PCR pending Presentation was sudden onset shortness of breath ?due to arrhythmia/bradycardia with hyperkalemia ?ACS, will trend troponin Significant hypercapnia on VBG, start BiPAP (4) Diabetes mellitus: Plan: Hemoglobin A1c [place] in the setting of end-stage renal disease (5) Hypertension: Plan: Holding all antihypertensives at this time pending emergent management with hyperkalemia (6) Depression with anxiety: Plan: Holding venlafaxine at this time pending emergent management for hyperkalemia (7) Obstructive sleep apnea: Plan: BiPAP HS Plan VTE Prophyalxis - deferred to ICU Diet - NPO Disposition - admit to ICU Admission and Anticipated Discharge Date Admission Date: February 20, 2024 History of Present Illness Chief Complaint: Shortness of breath Primary Care Provider: Julito Burt MD Shirley Patrick is a 78 year old female with end-stage renal disease on dialysis who presents to the ER with sudden shortness of breath and hypoxia. She reports feeling her normal self yesterday and early this morning. Around 9 AM while sitting down she developed sudden onset shortness of breath with associated nausea without chest pain, diaphoresis. No fever, chills, cough, sinus pain. She is on baseline 2 to 3 L of oxygen chronically but when the EMS arrived she was 78% on 5 L and was placed on 15 L nonrebreather mask. In the emergency room she was noted to have widening QRS and bradycardia on EKG. [id number] potassium 8.9. She has not missed any dialysis sessions, no change in medications or known potassium supplementation including salt substitutes. Allergies Allergy/AdvReac Type Severity Reaction Status Date / Time lisinopril AdvReac Intermediate cough Verified 02/21/24 13:47 Home Medications Medication Instructions Recorded Confirmed Type vit B complx, C-iron 8 mg-folic 1 tab PO QDL 02/27/20 02/21/24 History acid 800 mcg-D3 1,000 unit-zinc tablet (ProRenal) lancets 33 gauge (OneTouch Delica #100 ea 11/27/20 01/21/24 Rx Lancets) calcium acetate 667 mg tablet 667 mg PO UD 12/17/20 02/21/24 History sodium zirconium cyclosilicate 5 5 g PO 4XWK 03/25/22 02/21/24 History gram oral powder packet (Lokelma) blood sugar diagnostic (OneTouch #300 ea 07/31/22 01/21/24 Rx Verio test strips) blood-glucose meter (OneTouch #1 ea 07/31/22 01/21/24 Rx Verio Meter) cholecalciferol (vitamin D3) 50 50 mcg PO DAILY #90 caps 07/31/22 02/21/24 Rx mcg (2,000 unit) capsule ondansetron 8 mg disintegrating 8 mg PO Q8H PRN Nausea #90 tabs 07/31/22 02/21/24 Rx tablet Oxygen Home #1 ea 09/04/22 01/21/24 Rx amlodipine 10 mg tablet 10 mg PO DAILY #90 tabs 07/28/23 02/21/24 Rx carvedilol 12.5 mg tablet (Coreg) 12.5 mg PO BID #180 tabs 08/03/23 02/21/24 Rx polyethylene glycol 3350 17 17 g PO DAILY #510 grams 08/03/23 02/21/24 Rx gram/dose oral powder (Miralax) lactulose 10 gram/15 mL oral 15 ml PO DAILY PRN Constipation 08/13/23 02/21/24 Rx solution #1,350 mL buspirone 5 mg tablet 5 mg PO BID #180 tabs 09/16/23 02/21/24 Rx pantoprazole 40 mg tablet,delayed 40 mg PO BID 90 days #180 tabs 09/16/23 02/21/24 Rx release venlafaxine 75 mg capsule,extended 75 mg PO DAILY #90 caps 09/16/23 02/21/24 Rx release 24 hr gabapentin 300 mg capsule 300 mg PO 3XWK #36 caps 10/18/23 02/21/24 Rx levothyroxine 100 mcg tablet 100 mcg PO QPM #90 tabs 01/21/24 02/21/24 Rx lorazepam 1 mg tablet 0.5 mg (1/2 x 1 mg) PO BID PRN 01/21/24 02/21/24 Rx anxiety #30 tabs oxycodone 5 mg tablet 2.5 mg (1/2 x 5 mg) PO BID PRN 01/21/24 02/21/24 Rx pain #30 tabs olanzapine 10 mg tablet See Rx Instructions PO BID #90 tabs 01/24/24 02/21/24 Rx hydralazine 25 mg tablet 25 mg PO TID 02/21/24 02/21/24 History Past Med/Surg History Problem List (Updated 02/21/24 @ 23:50 by Sebas Richards MD) Acute heart failure with preserved ejection fraction Acute respiratory failure with hypoxia and hypercarbia Acute hyperkalemia (Acute) Elevated troponin (Acute) Metabolic acidosis (Acute) Leukocytosis (Acute) AMS (altered mental status) (Acute) Earache on left Sore throat COPD, 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 Counseling regarding advanced directives and goals of care Palliative care by specialist AMS (altered mental status) (Acute) Confusion Metabolic encephalopathy Arthralgia of right foot Chronic kidney disease-mineral and bone disorder Hypertension Diabetes mellitus Anemia Coronary artery disease Hypothyroidism Vitamin D deficiency (Acute) Polyarthritis (Acute) Paresthesias (Acute) Obstructive sleep apnea (Acute) Insomnia (Acute) Dyslipidemia (Acute) Diabetic retinopathy (Acute) Depression with anxiety (Acute) Cardiomyopathy Restrictive lung disease (Acute) End-stage renal disease on hemodialysis (Acute) CHF (congestive heart failure) (Acute) Polymyalgia rheumatica Chronic respiratory failure with hypoxia (Acute) Abnormal chest CT Hypertension (Acute) Weakness (Acute) Diverticulitis (Acute) Hiatal hernia with gastroesophageal reflux disease and esophagitis Early satiety Nausea & vomiting Type 2 diabetes mellitus with diabetic neuropathy (Acute) Right leg pain Leg edema, right Contusion of face Right facial numbness History of fracture of orbit (~06/20/21) Memory change Neuropathy Abnormal gait RLS (restless legs syndrome) Low back pain Seizure-like activity Elevated ferritin level Tremor Depression Anxiety Medical History Acute and chronic respiratory failure with hypoxia Acute and chronic respiratory failure with hypercapnia Acute respiratory failure with hypoxia and hypercarbia Weakness generalized Cellulitis of right leg Morbid obesity with BMI of 40.0-44.9, adult Diabetic eyes Hallucinations Fatigue Abnormal EKG Acute electrocardiogram changes Transaminitis Elevated troponin Myoclonus Acute hyperkalemia Hyperkalemia, diminished renal excretion Laceration of left lower extremity Hernia, hiatal GERD without esophagitis Macular puckering, bilateral Panniculitis Tubular adenoma of colon Hypertension History of thrombophlebitis Arthritis Surgical History History of tonsillectomy S/P repair of paraesophageal hernia History of nasal septoplasty History of cataract surgery History of bladder surgery S/P arteriovenous (AV) fistula creation S/P rotator cuff repair S/P hysterectomy H/O: hysterectomy Family History Mother Leukemia Cerebral aneurysm Hypertension Anxiety Diabetes Cancer Heart disease Grandmother Hypertension Father Osteoarthritis COPD (chronic obstructive pulmonary disease) Diabetes Hearing loss Sister Diabetes Myocardial infarction COPD (chronic obstructive pulmonary disease) Hypertension Brother Myocardial infarction Diabetes Cancer Stomach cancer Other No family history of bleeding disorder Denies family history of Ovarian cancer Prostate cancer Breast cancer Colorectal cancer Stroke Asthma Social History Smoking Status: Never smoker Second Hand Exposure: No; Do You Dip or Chew Tobacco: No; Hx Alcohol Use: No Hx Substance Use: No Preferred Language: Danish Communication Ability: Effective Visual Impairment: No Limitations Hearing Ability: Normal Dye Mixer Required: No Beliefs That Will Affect Care: None marital status: Current Living Situation: Spouse Current Living Situation Comment: Lives with current occupational status: retired How many Children do You have: 1 Feels Safe at Home: Yes Dental Care, Regularly: No Physical Activity Frequency: 1-2 Times per Week Seatbelt Use: always Assistive Devices: BiPap, CPAP, Glasses, Oxygen - Continuous and Walker Review of Systems Review of Systems: All systems reviewed & are unremarkable except as noted in HPI & below Physical Exam Constitutional: WD/WN, vitals as above Eyes: PERRL, conjunctivae normal, anicteric sclerae ENMT: external ear and nose normal, oropharynx normal Respiratory: normal respiratory effort, lungs clear to auscultation Cardiovascular: Rate/Rhythm: regular rate and + irregularly irregular Heart Sounds: no murmur Extremities: normal capillary refill and + pedal edema; no calf tenderness (trace) Gastrointestinal (Abdomen): normal bowel sounds, soft, nontender, no hepatosplenomegaly Skin: no rashes, warm and dry Neurologic: moves all extremities and awake; not confused Psychiatric: A+Ox3, euthymic affect Results & Data Results & Data Vital Signs (Past 12 Hours) Vital Signs Temp Pulse Resp BP Pulse Ox O2 Del Method O2 Flow Rate 02/21/24 12:39 57 L 02/21/24 12:34 92 Nasal Cannula 4 02/21/24 12:16 18 95 Nasal Cannula 4 02/21/24 12:04 94 Nasal Cannula 4 02/21/24 12:04 100 Non-rebreather 15 02/21/24 12:04 36.4 C L 59 L 20 128/66 100 Non-rebreather 15 02/21/24 12:04 Non-rebreather 15 Laboratory Results Abnormal lab results 02/21/24 02/21/24 02/21/24 Range/Units 11:59 12:11 12:42 RBC 3.53 L (4.20-5.40) M/uL Hgb 11.2 L (12.0-16.0) g/dl POC Hct 36 L (37-47) % MCV 109.9 H (80.0-100.0) fL MCHC 28.9 L (32.0-36.0) g/dL RDW Std Deviation 60.1 H (36.4-46.3) fL RDW Coeff of Jared 14.9 H (11.5-14.5) % Lymph # (Auto) 1.18 L (1.20-3.40) K/uL [place] # (Auto) 0.87 H (0.11-0.59) K/uL VBG pH 7.26 L (7.36-7.41) VBG pCO2 82 H (38-50) mmHg POC Sodium 133 L (135-144) mmol/L Sodium 133 L (136-145) mmol/L POC Potassium 8.9 H* (3.3-5.0) mmol/L Potassium 9.0 H* (3.5-5.1) mmol/L POC Chloride 98 L (101-112) mmol/L Chloride 93 L (98-107) mmol/L Carbon Dioxide 36 H (21-32) mmol/L POC Total CO2 37 H (24-31) mmol/L POC Anion Gap 7.0 L (16-25) mmol/L POC BUN 51 H (7-18) mg/dl BUN 54 H (6-23) mg/dl Creatinine 7.70 H* (0.6-1.2) mg/dl POC Creatinine 7.9 H* (0.6-1.3) mg/dl BUN/Creatinine Ratio 7.0 L (10-20) Glucose 177 H (70-99(Fasting)) mg/dl POC Glucose 275 H (70-99) mg/dl POC Glucose (other) 177 H (70-99) mg/dl Troponin I High Sens 20.8 H (0-14) pg/ml B-Natriuretic Peptide 1072 H (0-100) pg/ml 02/21/24 02/21/24 02/21/24 Range/Units 14:41 18:04 19:52 RBC (4.20-5.40) M/uL Hgb (12.0-16.0) g/dl POC Hct (37-47) % MCV (80.0-100.0) fL MCHC (32.0-36.0) g/dL RDW Std Deviation (36.4-46.3) fL RDW Coeff of Jared (11.5-14.5) % Lymph # (Auto) (1.20-3.40) K/uL [place] # (Auto) (0.11-0.59) K/uL VBG pH (7.36-7.41) VBG pCO2 (38-50) mmHg POC Sodium (135-144) mmol/L Sodium 134 L (136-145) mmol/L POC Potassium (3.3-5.0) mmol/L Potassium (3.5-5.1) mmol/L POC Chloride (101-112) mmol/L Chloride (98-107) mmol/L Carbon Dioxide (21-32) mmol/L POC Total CO2 (24-31) mmol/L POC Anion Gap (16-25) mmol/L POC BUN (7-18) mg/dl BUN (6-23) mg/dl Creatinine 4.14 H D (0.6-1.2) mg/dl POC Creatinine (0.6-1.3) mg/dl BUN/Creatinine Ratio 5.3 L (10-20) Glucose 114 H (70-99(Fasting)) mg/dl POC Glucose 108 H (70-99) mg/dl POC Glucose (other) (70-99) mg/dl Troponin I High Sens 20.1 H (0-14) pg/ml B-Natriuretic Peptide (0-100) pg/ml Diagnostic Findings XR chest 1V portable HISTORY: 78 years-old Female Chest pain, nonspecific COMPARISON: 1124 TECHNIQUE: AP view of the chest FINDINGS: Cardiac silhouette is enlarged. There is unchanged right hemidiaphragmatic elevation. Mild bibasilar atelectasis versus scarring. No pneumothorax, or pl eural effusion. Bones appear intact. IMPRESSION: 1. Cardiomegaly without acute process. 2. Unchanged right hemidiaphragmatic elevation. Medications Administered ER medications given: Calcium gluconate 1 g IV Insulin 10 units IV Dextrose 50% 50 mL IV Lokelma 10 mg p.o. Sodium bicarb 50 mEq IV ECG Rate (beats per minute): 42 Rhythm: other (No P waves seen) Findings: + other (Widened QRS @ 240ms), + peaked T-waves and + PVC Comparison ECG Date: from (January 09, 2024) Change: the following changes noted (Significant changes consistent with hyperkalemia present) Code Status & VTE Plan Code Status Conditional code - no intubation or ventilation but she wishes all other interventions including chest compressions and cardioversion VTE Prophylaxis Plan VTE Prophylaxis will be ordered: Yes Critical Care Time Critical Care Time: Yes Total Critical Care Time: 35 PG Care Time/CCT Total # of Minutes Spent Total Time Spent with Patient: Total time spent is greater than 50% in coordination of care (as documented) at patient's floor/unit and/or counseling patient: Critical Care Time: Yes Total Critical Care Time: 35 Coding Level of Care Code 32338 INT INP/OBS CARE 3/75MIN Diagnoses Acute hyperkalemia E87.5 Acute heart failure with preserved ejection fraction I50.31 Acute respiratory failure with hypoxia and hypercarbia J96.01; J96.02 Type 2 diabetes mellitus with chronic kidney disease on chronic dialysis, with long-term current use of insulin E11.22; N18.6; Z79.4; Z99.2 Chronic kidney disease stage: on chronic dialysis Diabetes mellitus complication detail: with chronic kidney disease Diabetes mellitus complication status: with kidney complications Diabetes mellitus [employer]cher [employer] insulin use: with [employer]cher [employer] use Diabetes mellitus type: type 2 Hypertension I10 Depression with anxiety F41.8 Obstructive sleep apnea G47.33 Additional Codes Critical Care Time - Critical Care Time: Yes ([id number]) (4) Diabetes mellitus Chronic kidney disease stage: on chronic dialysis Diabetes mellitus complication detail: with chronic kidney disease Diabetes mellitus complication status: with kidney complications Diabetes mellitus nursing home insulin use: with nursing home use Diabetes mellitus type: type 2 Qualified Code(s): E11.22 - Type 2 diabetes mellitus with diabetic chronic kidney disease; N18.6 - End stage re nal disease; Z79.4 - MCC (current) use of insulin; Z99.2 - Dependence on renal dialysis
[2024-02-21] MEDS ORDERED: SODIUM CHLORIDE 0.9% 1,000 ML IV PRN (13:18)
[2024-02-21 13:22] LABS: Influenza A virus by PCR Negative (Neg); Influenza B virus by PCR Negative (Neg); RSV by PCR Negative (Neg); SARS CoV2 RNA(COVID-19) Ceph NEGATIVE (Negative)
[2024-02-21] MEDS ORDERED: SODIUM ZIRCONIUM CYCLOSILICATE 10 GM PACKET PO SCH (14:00)
[2024-02-21] MEDS: CALCIUM GLUCONATE 1,000 MG/60 ML BAG IV SCH (14:24)
[2024-02-21 14:36] LABS: Creatinine Clr Calc Pharmacy 6.2 ml/min; Est GFR (African American) 5.3; Est GFR (Non-African American) 4.6
[2024-02-21 14:37] LABS: Calcium 9.7 mg/dl (8.6-10.3)
--- NOTE | 2024-02-21 14:50 | Critical Care Consultation ---
Date of Consultation February 21, 2024 Assessment & Plan (1) Acute hyperkalemia: Patient has chronic hyperkalemia related to end-stage renal disease. Unclear with the provoking event for this acute hyperkalemia was. She does not have evidence of hemolysis. Continue protocol per nephrology. Patient to undergo hemodialysis urgently today. Given an additional 2 g of calcium gluconate. She was also given Lokelma in the ER. Hemodynamically she is stable. (2) CHF (congestive heart failure): Patient appears to have acute on chronic CHF likely provoked by arrhythmia due to hyperkalemia. Dialysis should improve her fluid status and hypoxemia. (3) Acute respiratory failure with hypoxia and hypercarbia: Patient with evidence of acute on chronic hypercarbic respiratory failure based on VBG. Unclear whether the hypercarbic respiratory failure was provoked due to the hyperkalemia or vice versa. Patient follows with Dr. Guerrero in the pulmonary clinic and was last seen by him 03/02/2023. He noted a history of sleep disordered breathing/obesity hy poventilation syndrome. Unclear whether she is compliant with BiPAP at this time. She would benefit from outpatient follow-up with Dr. Guerrero. It appears that she has an appointment scheduled with him at 3:00 on 03/03/2024. Plan Discussed with hospitalist service and ICU nursing. CRITICAL CARE TIME I have personally spent 49 minutes of critical care time in the direct management of this patient. This is a life/limb threatening event. This includes time spent evaluating patient, direct bedside care, chart review, placing orders, interpretation of diagnostic studies, discussion with consultants, patient, and family members, as well as other required patient management activities. This time is exclusive of all separately billable procedures, and teaching time and separate from and in addition to any other critical care service time. History of Present Illness Reason for Consultation: Bradycardia and hyperkalemia Attending Physician: Sebas Richards MD History of Present Illness 78-year-old female with history of end-stage renal disease on hemodialysis every Wednesday, and Wednesday, chronic hypoxemic respiratory failure on 3 L oxygen at baseline, type 2 diabetes mellitus, hypothyroidism, CAD, diastolic heart failure, TASH, PMR, depression/anxiety and mild cognitive impairment presenting to the ER due to severe lethargy and dizziness. Patient also had associated shortness of breath. No chest pain, fevers or chills. In the ER she had a widened QRS and bradycardia. Vggud-xi-mwwg potassium was 8.9. Patient denies any missed dialysis sessions or abbreviated dialysis sessions. No new medications. Chest x-ray on admission revealed cardiomegaly and chronically elevated right hemidiaphragm. Mild bibasilar atelectasis. Chest CTA 01/09/2024 revealed mild cardiomegaly with interstitial pulmonary edema. Patient bradycardic with heart rates in the 30s while in the ICU. Will give additional 2 g of IV calcium gluconate. Patient's is at bedside. Allergies Allergy/AdvReac Type Severity Reaction Status Date / Time lisinopril AdvReac Intermediate cough Verified 02/21/24 13:47 Home Medications Medication Instructions Recorded Confirmed Type vit B complx, C-iron 8 mg-folic 1 tab PO QDL 02/27/20 02/21/24 History acid 800 mcg-D3 1,000 unit-zinc tablet (ProRenal) lancets [facility] gauge ([facility] #[facility] ea 11/27/20 01/21/24 Rx Lancets) calcium acetate 667 mg tablet 667 mg PO UD 12/17/20 02/21/24 History sodium zirconium cyclosilicate 5 5 g PO 4XWK 03/25/22 02/21/24 History gram oral powder packet (Lokelma) blood sugar diagnostic ([facility] #[facility] ea 07/31/22 01/21/24 Rx Verio test strips) blood-glucose meter ([facility] #[facility] ea 07/31/22 01/21/24 Rx Verio Meter) cholecalciferol (vitamin D3) 50 50 mcg PO DAILY #90 caps 07/31/22 02/21/24 Rx mcg (2,000 unit) capsule ondansetron 8 mg disintegrating 8 mg PO Q8H PRN Nausea #90 tabs 07/31/22 02/21/24 Rx tablet Oxygen Home #1 ea 09/04/22 01/21/24 Rx amlodipine 10 mg tablet 10 mg PO DAILY #90 tabs 07/28/23 02/21/24 Rx carvedilol 12.5 mg tablet (Coreg) 12.5 mg PO BID #180 tabs 08/03/23 02/21/24 Rx polyethylene glycol 3350 17 17 g PO DAILY #510 grams 08/03/23 02/21/24 Rx gram/dose oral powder (Miralax) lactulose 10 gram/15 mL oral 15 ml PO DAILY PRN Constipation 08/13/23 02/21/24 Rx solution #1,350 mL buspirone 5 mg tablet 5 mg PO BID #180 tabs 09/16/23 02/21/24 Rx pantoprazole 40 mg tablet,delayed 40 mg PO BID 90 days #180 tabs 09/16/23 02/21/24 Rx release venlafaxine 75 mg capsule,extended 75 mg PO DAILY #90 caps 09/16/23 02/21/24 Rx release 24 hr gabapentin 300 mg capsule 300 mg PO 3XWK #36 caps 10/18/23 02/21/24 Rx levothyroxine 100 mcg tablet 100 mcg PO QPM #90 tabs 01/21/24 02/21/24 Rx lorazepam 1 mg tablet 0.5 mg (1/2 x 1 mg) PO BID PRN 01/21/24 02/21/24 Rx anxiety #30 tabs oxycodone 5 mg tablet 2.5 mg (1/2 x 5 mg) PO BID PRN 01/21/24 02/21/24 Rx pain #30 tabs olanzapine 10 mg tablet See Rx Instructions PO BID #90 tabs 01/24/24 02/21/24 Rx hydralazine 25 mg tablet 25 mg PO TID 02/21/24 02/21/24 History Patient History Medical History Acute and chronic respiratory failure with hypoxia Acute and chronic respiratory failure with hypercapnia Acute respiratory failure with hypoxia and hypercarbia Weakness generalized Cellulitis of right leg Morbid obesity with BMI of 40.0-44.9, adult Diabetic eyes Hallucinations Fatigue Abnormal EKG Acute electrocardiogram changes Transaminitis Elevated troponin Myoclonus Acute hyperkalemia Hyperkalemia, diminished renal excretion Laceration of left lower extremity Hernia, hiatal GERD without esophagitis Macular puckering, bilateral Panniculitis Tubular adenoma of colon Hypertension History of thrombophlebitis Arthritis Surgical History History of tonsillectomy S/P repair of paraesophageal hernia History of nasal septoplasty History of cataract surgery History of bladder surgery S/P arteriovenous (AV) fistula creation S/P rotator cuff repair S/P hysterectomy H/O: hysterectomy Family History Mother Leukemia Cerebral aneurysm Hypertension Anxiety Diabetes Cancer Heart disease Grandmother Hypertension Father Osteoarthritis COPD (chronic obstructive pulmonary disease) Diabetes Hearing loss Sister Diabetes Myocardial infarction COPD (chronic obstructive pulmonary disease) Hypertension Brother Myocardial infarction Diabetes Cancer Stomach cancer Other No family history of bleeding disorder Denies family history of Ovarian cancer Prostate cancer Breast cancer Colorectal cancer Stroke Asthma Social History Smoking Status: Never smoker Second Hand Exposure: No; Do You Dip or Chew Tobacco: No; Hx Alcohol Use: No Hx Substance Use: No Preferred Language: Syriac Communication Ability: Effective Visual Impairment: No Limitations Hearing Ability: Normal Head Correction Officer Required: No Beliefs That Will Affect Care: None marital status: Current Living Situation: Spouse Current Living Situation Comment: Lives with current occupational status: retired How many Children do You have: 1 Other Information That Helps Us Care for You: No Feels Safe at Home: Yes Safety Concerns: Feels Safe At This Time Dental Care, Regularly: No Physical Activity Frequency: 1-2 Times per Week Seatbelt Use: always Assistive Devices: BiPap, CPAP, Glasses, Oxygen - Continuous and Walker Review of Systems Review of Systems: All systems reviewed & are unremarkable except as noted in HPI & below Physical Exam Constitutional: WD/WN, vitals as above no acute distress Respiratory: no respiratory distress Auscultation: + crackles; no wheezes Cardiovascular: Rate/Rhythm: regular rate and regular rhythm Heart Sounds: normal S1 and normal S2 Extremities: + edema and + AV fistula (Rt RC AVF with thrill and bruit, aneurysm stable.) Musculoskeletal: Extremities: extremities normal to inspection Skin: no rashes, warm and dry Neurologic: no focal motor deficits and not confused Psychiatric: Orientation: alert and oriented x 3 Affect: euthymic affect Results & Data Results & Data Vital Signs (Past 12 Hours) Vital Signs Temp Pulse Resp BP Pulse Ox O2 Del Method O2 Flow Rate 02/21/24 13:11 Nasal Cannula 4 02/21/24 12:39 57 L 02/21/24 12:34 92 Nasal Cannula 4 02/21/24 12:16 18 95 Nasal Cannula 4 02/21/24 12:04 94 Nasal Cannula 4 02/21/24 12:04 100 Non-rebreather 15 02/21/24 12:04 36.4 C L 59 L 20 128/66 100 Non-rebreather 15 02/21/24 12:04 Non-rebreather 15 Coding Level of Care Code 60642 CRITICAL CARE 1ST 30-74M Diagnoses Acute hyperkalemia E87.5 Acute systolic congestive heart failure I50.9 Heart failure chronicity: unspecified Heart failure type: unspecified Acute respiratory failure with hypoxia and hypercarbia J96.01; J96.02 Time Spent (min) 49 (2) CHF (congestive heart failure) Heart failure chronicity: unspecified Heart failure type: unspecified Qualified Code(s): I50.9 - Heart failure, unspecified
[2024-02-21] MEDS ORDERED: CARBOHYDRATES FOR HYPOGLYCEMIA PO PRN (15:55)
[2024-02-21] MEDS ORDERED: GLUCAGON FOR INJ 1 MG VIAL SQ PRN (15:55)
[2024-02-21] MEDS ORDERED: PHARMACY GLYCEMIC MGMT CONSULT PRN (15:55)
[2024-02-21] MEDS ORDERED: GLUCOSE 10 TAB/TUBE PO PRN (15:55)
[2024-02-21] MEDS ORDERED: GLUCOSE 40% GEL 15 GM TUBE PO PRN (15:55)
[2024-02-21] MEDS: ICU Protocol for HYPERglycemia SCH (16:26)
[2024-02-21] MEDS ORDERED: INSULIN ASPART PER UNIT CHARGE SC SCH (16:30)
[2024-02-21] MEDS: HEPARIN SOD (PORCINE) 1000 UNIT/ML IV SCH (16:31)
[2024-02-21] MEDS: HEPARIN SOD (PORCINE) 1000 UNIT/ML IV ONE (16:31)
--- NOTE | 2024-02-21 17:19 | Nephrology Consultation ---
Date of Consultation February 21, 2024 Assessment & Plan (1) Acute hyperkalemia: (2) Acute respiratory failure with hypoxia and hypercarbia: (3) End-stage renal disease on hemodialysis: Plan 78-year-old female with ESKD, on hemodialysis Wednesday, , Wednesday, admitted with acute Hyperkalemia, volume overload. Blood pressure well controlled, volume overload. Respiratory status fair with mild SOB --Emergency HD now with 2 K bath for K of 8.9 and volume overload, aim for 3 L UF. Will do another dialysis treatment tomorrow. --Dose medications for eGFR less than 10, Low K diet --Renal vitamins daily Thank you for allowing me to participate in Ms. Patrick's care. History of Present Illness Reason for Consultation: ESRD on HD, Hyperkalemia, volume overload. Attending Physician: Sebas Richards MD History of Present Illness Ms. 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 Nephrology consult requested for emergency HD for critical hyperkalemia and volume overload. EMR records were reviewed in detail during visit. Patient's was at bedside Shirley presented to ER with the c/o severe lethargy and shortness of breath. EKG showed widened QRS and bradycardia. Uaxht-ea-pjcg potassium was 8.9. She was given Ca gluconate, Lokelma, Insulin . She denies any missed dialysis sessions, had full session of HD on Wednesday. Reports taking Lokelma daily. Denies consuming high potassium food. BUN, Cr and other electrolytes were reasonable. Hb 11.2. Chest x-ray on admission revealed cardiomegaly and pulmonary congestion. She normally uses 3 L of oxygen via nasal cannula at home and uses CPAP. Blood pressure was stable. ESKD on HD at [facility] since 2016 (TTS 3.5 hr 2K 2Ca 1Mg F-180NR 350/800 EDW 90 kg).Has been getting HD regularly. Has h/o hyperkalemia, has been on Lokelma daily.She has chronic respiratory failure with hypoxic and has been maintained on 3L NC as well as HFpEF with chronic pulmonary hypertension. During visit in ER, she reported mild SOB and generalized weakness. Allergies Allergy/AdvReac Type Severity Reaction Status Date / Time lisinopril AdvReac Intermediate cough Verified 02/21/24 13:47 Home Medications Medication Instructions Recorded Confirmed Type vit B complx, C-iron 8 mg-folic 1 tab PO QDL 02/27/20 02/21/24 History acid 800 mcg-D3 1,000 unit-zinc tablet (ProRenal) lancets 33 gauge ([facility] #100 ea 11/27/20 01/21/24 Rx Lancets) calcium acetate 667 mg tablet 667 mg PO UD 12/17/20 02/21/24 History sodium zirconium cyclosilicate 5 5 g PO 4XWK 03/25/22 02/21/24 History gram oral powder packet (Lokelma) blood sugar diagnostic ([facility] #300 ea 07/31/22 01/21/24 Rx Verio test strips) blood-glucose meter ([facility] #1 ea 07/31/22 01/21/24 Rx Verio Meter) cholecalciferol (vitamin D3) 50 50 mcg PO DAILY #90 caps 07/31/22 02/21/24 Rx mcg (2,000 unit) capsule ondansetron 8 mg disintegrating 8 mg PO Q8H PRN Nausea #90 tabs 07/31/22 02/21/24 Rx tablet Oxygen Home #1 ea 09/04/22 01/21/24 Rx amlodipine 10 mg tablet 10 mg PO DAILY #90 tabs 07/28/23 02/21/24 Rx carvedilol 12.5 mg tablet (Coreg) 12.5 mg PO BID #180 tabs 08/03/23 02/21/24 Rx polyethylene glycol 3350 17 17 g PO DAILY #510 grams 08/03/23 02/21/24 Rx gram/dose oral powder (Miralax) lactulose 10 gram/15 mL oral 15 ml PO DAILY PRN Constipation 08/13/23 02/21/24 Rx solution #1,350 mL buspirone 5 mg tablet 5 mg PO BID #180 tabs 09/16/23 02/21/24 Rx pantoprazole 40 mg tablet,delayed 40 mg PO BID 90 days #180 tabs 09/16/23 02/21/24 Rx release venlafaxine 75 mg capsule,extended 75 mg PO DAILY #90 caps 09/16/23 02/21/24 Rx release 24 hr gabapentin 300 mg capsule 300 mg PO 3XWK #36 caps 10/18/23 02/21/24 Rx levothyroxine 100 mcg tablet 100 mcg PO QPM #90 tabs 01/21/24 02/21/24 Rx lorazepam 1 mg tablet 0.5 mg (1/2 x 1 mg) PO BID PRN 01/21/24 02/21/24 Rx anxiety #30 tabs oxycodone 5 mg tablet 2.5 mg (1/2 x 5 mg) PO BID PRN 01/21/24 02/21/24 Rx pain #30 tabs olanzapine 10 mg tablet See Rx Instructions PO BID #90 tabs 01/24/24 02/21/24 Rx hydralazine 25 mg tablet 25 mg PO TID 02/21/24 02/21/24 History Patient History Medical History Acute and chronic respiratory failure with hypoxia Acute and chronic respiratory failure with hypercapnia Acute respiratory failure with hypoxia and hypercarbia Weakness generalized Cellulitis of right leg Morbid obesity with BMI of 40.0-44.9, adult Diabetic eyes Hallucinations Fatigue Abnormal EKG Acute electrocardiogram changes Transaminitis Elevated troponin Myoclonus Acute hyperkalemia Hyperkalemia, diminished renal excretion Laceration of left lower extremity Hernia, hiatal GERD without esophagitis Macular puckering, bilateral Panniculitis Tubular adenoma of colon Hypertension History of thrombophlebitis Arthritis Surgical History History of tonsillectomy S/P repair of paraesophageal hernia History of nasal septoplasty History of cataract surgery History of bladder surgery S/P arteriovenous (AV) fistula creation S/P rotator cuff repair S/P hysterectomy H/O: hysterectomy Family History Mother Leukemia Cerebral aneurysm Hypertension Anxiety Diabetes Cancer Heart disease Grandmother Hypertension Father Osteoarthritis COPD (chronic obstructive pulmonary disease) Diabetes Hearing loss Sister Diabetes Myocardial infarction COPD (chronic obstructive pulmonary disease) Hypertension Brother Myocardial infarction Diabetes Cancer Stomach cancer Other No family history of bleeding disorder Denies family history of Ovarian cancer Prostate cancer Breast cancer Colorectal cancer Stroke Asthma Social History Smoking Status: Never smoker Second Hand Exposure: No; Do You Dip or Chew Tobacco: No; Hx Alcohol Use: No Hx Substance Use: No Preferred Language: Guyanese Communication Ability: Effective Visual Impairment: No Limitations Hearing Ability: Normal Corporate Safety Director Required: No Beliefs That Will Affect Care: None marital status: Current Living Situation: Spouse Current Living Situation Comment: Lives with current occupational status: retired How many Children do You have: 1 Feels Safe at Home: Yes Dental Care, Regularly: No Physical Activity Frequency: 1-2 Times per Week Seatbelt Use: always Assistive Devices: BiPap, CPAP, Glasses, Oxygen - Continuous and Walker Review of Systems Review of Systems: All systems reviewed & are unremarkable except as noted in HPI & below and All systems reviewed & are unremarkable except as noted in Subjective Physical Exam Constitutional: WD/WN, vitals as above no acute distress Eyes: + anicteric sclerae Respiratory: no respiratory distress and no cough Auscultation: + diminished lung sounds and + crackles Cardiovascular: Rate/Rhythm: regular rate and regular rhythm Heart Sounds: normal S1 and normal S2 Gastrointestinal (Abdomen): Inspection/Auscultation: abdomen normal to inspection Musculoskeletal: Extremities: extremities normal to inspection Neurologic: no focal motor deficits Psychiatric: Orientation: alert and oriented x 3 Affect: euthymic affect Results & Data Vital Signs (Past 12 Hours) Vital Signs Temp Pulse Pulse Resp BP BP Pulse Ox 02/21/24 16:30 59 L 119/60 02/21/24 16:00 57 L 133/54 L 02/21/24 15:30 57 L 131/59 L 02/21/24 15:00 57 L 136/56 L 02/21/24 14:48 56 L 16 134/58 L 96 02/21/24 14:40 36.5 C 56 L 02/21/24 14:15 56 L 18 114/60 94 02/21/24 14:10 45 L 16 118/63 95 02/21/24 14:00 02/21/24 14:00 36.4 C L 49 L 19 132/52 L 94 02/21/24 13:11 02/21/24 12:39 57 L 02/21/24 12:34 92 02/21/24 12:16 18 95 02/21/24 12:04 94 02/21/24 12:04 100 02/21/24 12:04 36.4 C L 59 L 20 128/66 100 02/21/24 12:04 O2 Del Method O2 Flow Rate 02/21/24 16:30 02/21/24 16:00 02/21/24 15:30 02/21/24 15:00 02/21/24 14:48 Nasal Cannula 6 02/21/24 14:40 02/21/24 14:15 Nasal Cannula 6 02/21/24 14:10 Nasal Cannula 6 02/21/24 14:00 Nasal Cannula 6 02/21/24 14:00 Nasal Cannula 6 02/21/24 13:11 Nasal Cannula 4 02/21/24 12:39 02/21/24 12:34 Nasal Cannula 4 02/21/24 12:16 Nasal Cannula 4 02/21/24 12:04 Nasal Cannula 4 02/21/24 12:04 Non-rebreather 15 02/21/24 12:04 Non-rebreather 15 02/21/24 12:04 Non-rebreather 15 PG Care Time/CCT Total # of Minutes Spent Total Time Spent with Patient: Total time spent is greater than 50% in coordination of care (as documented) at patient's floor/unit and/or counseling patient: Coding Level of Care Code 67489 INT INP/OBS CARE 3/75MIN Diagnoses Acute hyperkalemia E87.5 Acute respiratory failure with hypoxia and hypercarbia J96.01; J96.02 End-stage renal disease on hemodialysis N18.6; Z99.2
[2024-02-21] MEDS: INSULIN ASPART PER UNIT CHARGE SC SCH (18:05)
--- NOTE | 2024-02-21 18:09 | Pharmacy Report ---
Pharmacy Glycemic Short Note 2 - Date of Service February 21, 2024 - Glycemic Short BSG Results (Last 24 hours): 02/21/24 02/21/24 02/21/24 11:59 11:59 12:11 Glucose Cancelled 177 H POC Glucose POC Glucose (other) 177 H 02/21/24 02/21/24 02/21/24 12:42 16:25 18:04 Glucose POC Glucose 275 H 93 108 H POC Glucose (other) OUTPATIENT ANTIDIABETIC REGIMEN: * n/a ASSESSMENT: * 78 year old admitted for hyperkalemia/ESRD. Pharmacy consulted for glycemic management. Received IV insulin for hyperkalemia this morning (in addition to dextrose per protocol). Type 2 diabetes listed in provider notes, however no medications on outpatient list for diabetes listed. Plan to start conservatively with only novolog for now. PLAN FOR INPATIENT GLYCEMIC CONTROL: * Hold outpatient oral diabetes medications * Basal insulin * Lantus - hold * Bolus insulin * NovoLog per scale ACHS or Q6hrs while NPO * Goal Range: Low 110 mg/dL - High 140 mg/dL * Correction Factor: 50 mg/dL/unit * Nutritional / Prandial insulin per carb ratio of 1 unit per 15 grams CHO consumed
[2024-02-21 20:51] LABS: Anion Gap 5 (3-11); BUN Creatinine Ratio 5.3 (10-20); Blood Urea Nitrogen 22 mg/dl (6-23); Calcium 9.6 mg/dl (8.6-10.3); Carbon Dioxide 31 mmol/L (21-32); Chloride 98 mmol/L (98-107); Creatinine Clr Calc Pharmacy 11.6 ml/min; Est GFR (African American) 11.2 ml/min; Est GFR (Non-African American) 9.7 ml/min; Glucose 114 mg/dl (70-99(Fasting)); Magnesium 2.4 mg/dl (1.7-2.4); Phosphorus 2.8 mg/dl (2.5-4.9); Sodium 134 mmol/L (136-145)
--- OUTSIDE RECORDS SUMMARY | 2024-02-21 20:55 | External Medical Summary | Summary of Care ---
Author Name Unknown Organization [facility] Address [address] [facility] [place] [address] Phone [phone] Care Team Providers Care Tunnel Kiln Firer Name Role Phone ProJulito MD Primary Care Provider [phone]- [phone] Reason for Visit * Reason Onset Date Comments [facility]: Maintenance 01/21/2024 Encounter Details Date Type Department Care Team (Late st Contact Info) Description 01/21/2024 1:00 PM EDT Scheduled Telephone [facility], [facility] [address] [place] [address] Coordinator, [facility] [address] [facility] [place] [address] Allergies Active Allergy Reactions Criticality Noted Date Comments Lisinopril Cough Low 10/18/2015 documented as of this encounter (statuses as of 01/21/2024) Medications Medication Sig Dispensed Refills Start Date End Date Status Magnesium 400 MG Capsule Take 1 Capsule by mouth in the morning. 1 Cap 01/19/2020 Active calcium acetate, Phos Binder, (PHOSLO) 667 MG TABS tablet Take 2 Tablets by mouth in the morning and 2 Tablets at noon and 2 Tablets in the evening. Take with meals. Takes 1 with snack. 01/19/2020 Active Multiple Vitamins-Minerals (PRORENAL + D) TABS Take by mouth. Takes 1 tab daily 01/19/2020 Active ondansetron (ZOFRAN) 8 MG Tablet Take 1 Tablet by mouth every 8 hours as needed for Nausea. 1 Tab 01/19/2020 Active Gabapentin 300 MG Oral Capsule (Neurontin) TAKE 1 CAPSULE BY MOUTH THREE TIMES A WEEK ON WEDNESDAY, WEDNESDAY AND WEDNESDAY AFTER DIALYSIS 48 Capsule 1 09/14/2022 Active Lactulose 10 GM/15ML Oral Solution (Constulose) TAKE 15ML BY MOUTH DAILY NEEDED FOR CONSTIPATION 1419 mL 3 09/03/2022 Active Bumetanide 2 MG Oral Tablet TAKE TWO TABLETS BY MOUTH TWICE A DAY 360 Tablet 3 08/18/2022 Active Levothyroxine Sodium 100 MCG Oral Tablet (Levoxyl) TAKE 1 TABLET BY MOUTH DAILY 90 Tablet 3 12/02/2022 Active hydrALAZINE HCl 25 MG Oral Tablet (Apresoline) Take 1 Tablet by mouth 3 times a day. 270 Tablet 5 02/11/2023 Active CPAP Uses oxygen with CPAP 12/09/2022 Active Sodium Zirconium Cyclosilicate 5 GM Oral Packet (Lokelma) Take 1 Packet by mouth once a day on Wednesday, Wednesday, Wednesday ,and Wednesday only. WED, , WED AND Wednesday03/25/2022 Active oxygen IN GAS Use 3 L/min(Oxygen) as directed continuous. Active Carvedilol 12.5 MG Oral Tablet (Coreg) Take 1 tablet (12.5mg) by mouth twice a day 180 Tablet 3 07/27/2023 Active amLODIPine Besylate 10 MG Oral Tablet (Norvasc) Take 1 tablet by mouth daily 90 Tablet 3 07/28/2023 Active busPIRone HCl 5 MG Oral Tablet (Buspar) Take 1 tablet by mouth twice daily 180 Tablet 3 08/03/2023 Active Lactulose 10 GM/15ML Oral Solution (Constulose) Take 15 ml by mouth as needed for constipation 1419 mL 3 08/03/2023 Active Venlafaxine HCl ER 75 MG Oral Capsule Extended Release 24 Hour (Effexor XR) Take 1 capsule by mouth daily 90 Capsule 3 08/03/2023 Active Pantoprazole Sodium 40 MG Oral Tablet Delayed Release (Protonix) take 1 tablet by mouth twice daily 180 Tablet 3 09/16/2023 Active Cholecalciferol 50 MCG (2000 UT) Oral Tablet Take 1 Tablet by mouth in the morning. 07/25/2022 Active Gabapentin 300 MG Oral Capsule (Neurontin) take 1 capsule by mouth three times weekly; Wednesday, , wednesday after dialysis 36 Capsule 1 10/18/2023 Active LORazepam 1 MG Oral Tablet (Ativan) take one-half tablet by mouth twice a day As Needed for anxiety 30 Tablet 10/18/2023 Active oxyCODONE HCl 5 MG Oral Tablet (Oxy IR) take one-half tablet by mouth twice a day As Needed for pain 30 Tablet 10/18/2023 Active Ipratropium-Albuter ol 0.5-2.5 (3) MG/3ML Inhalation Solution (Duoneb) Inhale 3 mL by mouth every 6 hours as needed. 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 11/01/2023 Last Assessment & Plan: Diet controlled Most recent A1c 6.4% 05/2023 Age-related osteoporosis wit [place] current pathological fracture 11/01/2023 Last Assessment & Plan: Continue calcium +D Major depressive disorder in partial remission 0 11/01/2023 Last Assessment & Plan: Mood stable Continues on effexor, buspar, and zyprexa DNR (do not resuscitate) 11/01/2023 Type 2 diabetes mellitus wit h diabetic chronic kidney disease 10/28/2023 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 10/28/2023 Last Assessment & Plan: "RED FLAG" HF Symptoms: Leg Swelling (Examples: "I can't wear certain socks or shoes", "My pants feel tight") Increased dyspnea on exertion (Example: "I can't walk to the kitchen or up the stairs") Medication Regimen: Beta Miah Therapy: Carvedilol YOUSIF Inhibitor/ARB Therapy: No YOUSIF/ARB/ARNI secondary to: ESRD Diuretic therapy: Bumex SGLT2 Inhibitor: No Current SGLT2 (Describe in the Comments) Remote Patient Monitoring Vendor: No Connected RPM Device(s): No current devices Self - Management Plan Other/Additional Comments: reach out to nephrology for guidance Additional Comments: Stable today Continues dialysis tues,thurs,sat Diabetes mellitus due to und erlying condition with 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, bilateral 07/05/2020 Chronic diastolic congestive heart failure 07/05 Esophageal dysmotility 07/05/2020 PMR (polymyalgia rheumatica) 06/07/2020 DDD (degenerative disc disease), lumbar 06/07/19 21 [facility]CI current use of systemic steroids 06/07 ESRD on dialysis 01/29/2020 Morbid obesity with BMI of 40.0-44.9, adult 12/30 Gastroesophageal reflux disease without esophagi tis 01/25/2020 TASH and COPD overlap syndrome 01/25/2020 Last Assessment & Plan: Continues CPAP at hs, encouraged compliance Not currently on inhalers COPD (chronic obstructive pulmonary disease) HTN (hypertension) Acquired hypothyroidism Hyperlipidemia documented as of this encounter (statuses as of 01/21/2024) Resolved Problems Problem Noted Date Diagnosed Date Resolved Date Type 2 diabetes mellitus wit h unspecified diabetic retinopathy without macular edema 07/05/2020 10/28/2023 Overview: More specific dx on pl Hypertensive kidney disease with end stage chronic kidney disease on dialysis 07/05/202010/27 Overview: More specific dx added to pl Type 2 diabetes mellitus wit h stage 1 chronic kidney disease, with long-term current use of insulin 01/25/2020 10/28/2023 Overview: More specific dx added to pl Nausea & vomiting 10/25/2015 07/11/2020 Epigastric pain 10/25/2015 07/11/2020 documented as of this encounter (statuses as of 01/21/2024) Immunizations Name Administration Dates Next Due COVID-19 mRNA, LNP-s, No Pre serve, 2-Dose Series ([place]) 08/09/2020,07/19/2020 documented as of this encounter Social History Tobacco Use Types Packs/Day Years Used Date Smoking Tobacco: Never Smokeless Tobacco: Never Comments:Occasional passive smoke exposure Alcohol Use Standard Drinks/Week Comments No 0 (1 standard drink = 0.6 oz pur e alcohol) Hunger Vital Sign Answer Date Recorded Within the past 12 months, y ou worried that your food would run out before you got the money to buy more. Never true 12/30/19 24 Within the past 12 months, t he food you bought just didn't last and you didn't have money to get more. Never true 12/30/2023 Childcare Answer Date Recorded Do you feel overwhelmed with taking care of a child, family member or friend? No 12/30/2023 Does your family need help f inding childcare? (Household - for ages 0-17 years) Not on file 12/30/2023 Clothing Answer Date Recorded Have you been unable to get clothing when it was really needed? No 12/30/2023 Is your family able to get c lothes or diapers when needed? (Household - for ages 0-17 years) Not on file 12/30/2023 Personal Safety Answer Date Recorded Do you feel unsafe or have concerns for your saf ety? No 12/30/2023 Do you have concerns for you r family's safety? (Household - for ages 0-17 years) Not on file 12/30/2023 Utilities Answer Date Recorded Do you have trouble paying y our heating, water, or electric bill? No 12/30/2023 Is your family able to pay t he heat, water, or electric bill? (Household - for ages 0-17 years) Not on file 12/30/2023 Does your family have access to good internet? (Household - for ages 0-17 years) Not on file 12/30/2023 Employment Status Answer Date Recorded Are you unemployed or without regular income? No 12/30/2023 Does the household have a re gular source of income? (Household - for ages 0-17 years) Not on file 12/30/2023 Social Connections Answer Date Recorded How often do you feel lonely or isolated from those around you? Sometimes 12/30/2023 Financial Resource Strain Answer Date R ecorded Do you have any trouble payi ng for your medications, or do you think you might in the future? No 12/30/2023 Does your family have troubl e paying for medicine? (Household - for ages 0-17 years) Not on file 12/30/2023 Transportation Needs Answer Date Record ed Do you have trouble getting a ride to medical visits or work? (Adult - for ages 18 years and over) Not on file 12/30/2023 Does your family have a hard time getting a ride to doctors visits? (Household - for ages 0-17 years) Not on file 12/30/2023 Has lack of transportation k ept you from medical appointments, meetings, work, or from getting things needed for daily living? Check all that apply. No 12/30/2023 Do you (or your family) have trouble finding or paying for a ride (transportation)? (Household - for ages 0-17 years) Not on file 12/30/2023 Housing Stability Answer Date Recorded Do you currently live in a s helter or have no steady place to sleep at night? No 12/30/2023 Do you think you are at risk of becoming homeless? (Adult - for ages 18 years and over) Not on file 12/30/2023 Does your family worry about paying for your home or becoming homeless? (Household - for ages 0-17 years) Not on file 0 12/30/2023 Are you homeless or worried that you might be in the future? No 12/30/2023 Are you (or your family) olga eless or worried that you might be in the future? (Household - for ages 0-17 years) Not on file Food Insecurity Answer Date Recorded Do you need food for this week? No 12/30/2023 Are you able to get enough f ood for your family? (Household - for ages 0-17 years) Not on file 12/30/2023 Does your family need food t his week? (Household - for ages 0-17 years) Not on file 12/30/2023 Do you always have enough fo od for your family? (Household - for ages 0-17 years) Not on file 12/30/2023 Sex and Gender Information Value Date Recorded Sex Assigned at Not on file Gender Identity Not on file Sexual Orientation Not on file Job Start Date Occupation Industry Not on file Not on file Not on file documented as of this encounter Functional Status Functional Status Response Date of Assess ment Are you deaf or do you have serious difficulty h earing? No 10/18/2015 documented as of this encounter Miscellaneous Notes * Telephone Encounter - Maribel Das RN - 01/21/2024 12:26 PM EDT [facility] Telephonic Nurse Follow-Up Call [facility] Subprogram: Focused Care Management (3-9 months) Follow Up Call Type: Routine follow up call / Status Check Acute issue requiring follow-up call: Other: f/u -status check prior to CHRISTA pt sent to ED 01/09/24 for URI symptoms , increased O2 demand , acute Hypoxic respiratory failure Objective: 01/16/2024 12:38 PM 01/09/2024 3:30 PM 12/30/2023 1:14 PM 11/29/2023 4:17 PM 10/08/2023 3:24 PM VITALS ACROSS ENCOUNTERS BP 120/60 126/72 136/76 140/64 150/74 Pulse 62 64 74 65 67 Weight 89.8 kg BMI 38.67 kg/m2 Remote Patient Monitoring: NONE Oxygen Needs: NO supplemental oxygen needs identified DME Needs: NO DME needs identified Medications: No medication or dose adjustments made during acute episode Subjective: Condition Status: [facility] patient Current Concerns: Phone call to patient/spouse, phone line busy. Phone call placed to daughter Oscar, gave patients cell phone # [phone] and requests intake call number. She spoke with patient earlier and states she seems to be doing well. Phone call to patients mobile number. It sounded as though someone picked up phone but immediately hung up. Unable to leave message. Daughter to give patient message to call [facility] back. Disposition: Weekend call scheduled Future Visits Scheduled: Future Appointments-next 60 days Date/Time Provider Specialty Dept Phone 01/21/2024 1:00 PM Coordinator, Yang Chap[facility] [phone] 01/24/2024 3:00 PM Dewey Guillory PA-C [facility] [phone] 02/02/2024 9:30 AM Coordinator, Yang [facility] [phone] 03/03/2024 2:30 PM Becki Santillan RN [facility] [phone] Maribel Das RN documented in this encounter Plan of Treatment Upcoming Encounters Date Type Department Care Team (Late st Contact Info) Description 01/22/2024 11:30 AM EDT Scheduled Telephone [facility], [facility] [address] [place] [address] Region, Nurse [place] [address] [facility] [place] [address] 01/24/2024 3:00 PM EDT Home Visit [facility], [facility] [address] [place] [address] Dewey Guillory PA-C [address] [place] [address] 02/02/2024 9:30 AM EDT Scheduled Telephone [facility], [address] [place] [address] Coordinator, [facility] [address] [facility] [place] [address] 03/03/2024 2:30 PM EDT Home Visit [facility], [facility] [address] [place] [address] Becki Santillan RN [address] [facility] [place] [address] Health Maintenance Due Date Last Done Comments Depression Monitoring 1957 Alpha-1 Antitrypsin 1963 Diabetic Foot Exam 1963 TSH 1963 HbA1c 10/15/1997 04/17/1997 *COPD SEVERITY VERIFIED BY PFT 01/28/2020 COVID-19 Vaccine ( season) 2023 03/30/2023, 06/25/2022, 06/25/2022, Additional history exists Influenza Vaccine (FLU shot) (#1) 2024 03/09/2023, 02/28/2022, 02/29/2020, Additional history exists O2 ASSESSMENT COMPLETED IN PAST YEAR FOR COPD 04/07/2024 04/07/2023 Diabetic Eye Exam 10/21/2024 10/22/2023, , 08/03/2022, Additional history exists DTaP,Tdap,and Td Vaccines (2 - Td or Tdap) 08/02/2029 08/03/2019 Hepatitis C Screening Completed 10/19/2015 Zoster Vaccines Completed 08/08/2020, 06/0 12/2019, 05/18/2019, Additional history exists Pneumococcal Vaccine: 65+ Years Completed 06/15/2022, 08/12/2017, 06/25/2016, Additional history exists Hepatitis B Vaccine Completed 10/15/2022, 08/13/2022, 07/14/2022, Additional history exists HPV (Gardasil) Vaccine Aged Out No lo nger eligible based on patient's age to complete this topic MENINGOCOCCAL (MENACTRA/MENVEO) Aged Out No longer eligible based on patient's age to complete this topic documented as of this encounter Medical Devices Implanted Type Area Oracle Soa Architect Device Identifier Shelf Expiration Date Model / Serial / Lot 6 Mm X 14 Cm Cook Medical Doris Embolization Coil Implanted:Qty: 2 on 10/21/2015 by Robb Rogel MD at [facility] [place] Right: Lower Arm 07/04/2020 [id number] / [id number] / [id number] Description:6 mm x 14 cm Burial Vault Deliverer And Installer k Medical Doris Embolization Coil 6 Mm X 14 Cm Cook Medical Doris Embolization Coil Implanted:Qty: 2 on 10/21/2015 by Robb Rogel MD at [facility] [place] Right: Lower Arm 07/30/2019 [id number] / [id number] / [id number] Description:6 mm x 14 cm Burial Vault Deliverer And Installer k Medical Doris Embolization Coil 4 Mm X 14 Cm Cook Medical Doris Embolization Coil Implanted:Qty: 3 on 10/21/2015 by Robb Rogel MD at [facility] [place] Right: Lower Arm 07/05/2020 [id number] / [id number] / [id number] Description:4 mm x 14 cm Burial Vault Deliverer And Installer k Medical Doris Embolization Coil 4 Mm X 14 Cm Cook Medical Doris Embolization Coil Implanted:Qty: 5 on 10/21/2015 by Robb Rogel MD at [facility] [place] Right: Lower Arm 07/30/2019 [id number] / [id number] / [id number] Description:4 mm x 14 cm Burial Vault Deliverer And Installer k Medical Doris Embolization Coil 4 Mm X 3mm X 2.6 Cm Cook Medical Tornado Embolization Coil Implanted:Qty: 2 on 10/21/2015 by Robb Rogel MD at [facility] [place] Right: Lower Arm 07/18/2020 [id number] / [id number] / [id number] Description:4 mm x 3mm x 2.6 cm Cook Medical Tornado Embolization Coil documented as of this encounter Advance Directives * Full Code (Latest Code Status on File) Date Activated Date Inactivated Comments 10/18/2015 8:38 PM 10/27/2015 5:32 PM Question Answer Comments Discussion of Advance Directives occurred with: Not Discussed Healthcare Agents on File Name Relationship [facility] Oscar Lawson Adult Child Health Care Agen t (per Health Care Power of Pressurised Container Filler document) Care Teams Tunnel Kiln Firer Relationship Specialty Start Date End Date Pro, Julito Chris MD [address] [place] [address] PCP - General Internal Medicine 01/24/20 documented as of this encounter
--- OUTSIDE RECORDS SUMMARY | 2024-02-21 20:55 | External Medical Summary | Summary of Care ---
Author Name Unknown Organization [facility] Address [address] [facility] [place] [address] Phone [phone] Care Team Providers Care Child Specialist Name Role Phone Julito Burt MD Primary Care Provider +1- [phone] Reason for Visit * Reason Onset Date Comments [facility]: Maintenance 01/22/2024 Encounter Details Date Type Department Care Team (Late st Contact Info) Description 01/22/2024 11:30 AM EDT Scheduled Telephone [facility], [facility] [address] [facility] [place] [address] [facility], Nurse [facility] [address] [facility] [place] [address] Allergies Active Allergy Reactions Criticality Noted Date Comments Lisinopril Cough Low 10/18/2015 documented as of this encounter (statuses as of 01/22/2024) Medications Medication Sig Dispensed Refills Start Date [...] twice daily 30 Tablet 2 01/20/2024 Active oxyCODONE HCl 5 MG Oral Tablet (Oxy IR) Take one-half tablet by mouth twice daily as needed for pain 30 Tablet 01/21/2024 Active documented as of this encounter (statuses as of 01/22/2024) Active Problems Problem Noted Date Diagnosed Date Type 2 diabetes mellitus wit h stable proliferative retinopathy of both eyes 11/01/2023 Last Assessment & Plan: Diet controlled Most recent A1c 6.4% 05/2023 Age-related osteoporosis wit hout current pathological fracture 11/01/2023 Last Assessment & [...] DDD (degenerative disc disease), lumbar 06/07/19 21 half-way current use of systemic steroids 06/07 ESRD on dialysis 01/29/2020 Morbid obesity with BMI of 40.0-44.9, adult 12/30 Gastroesophageal reflux disease without esophagi tis 01/25/2020 TASH and COPD overlap syndrome 01/25/2020 Last Assessment & Plan: Continues CPAP at , encouraged compliance Not currently on inhalers COPD (chronic obstructive pulmonary disease) HTN (hypertension) Acquired hypothyroidism Hyperlipidemia documented as of this encounter (statuses as of 01/22/2024) Resolved Problems Problem Noted Date Diagnosed Date [...] as of this encounter (statuses as of 01/22/2024) Immunizations Name Administration Dates Next Due COVID-19 mRNA, LNP-s, No Pre serve, 2-Dose Series (Intense) 08/09/2020,07/19/2020 documented as of this encounter Social [...] encounter Miscellaneous Notes * Telephone Encounter - Angela Herron RN - 01/22/2024 2:44 PM EDT [facility] Telephonic Nurse Follow-Up Call [facility] Subprogram: Focused Care Management (3-9 months) Follow [...] made during acute episode Subjective: Condition Status: [facility] patient Current Concerns: Phone call to patient/spouse, phone line busy. Call to patients cell phone # [phone] as number provided by pt's dtr, line rings then disconnects. Unable to leave message. Disposition: Weekend call scheduled Future Visits Scheduled: Future Appointments-next 60 days Date/Time Provider Specialty Dept Phone 01/24/2024 3:00 PM Dewey Guillory PA-C [facility] [phone] 02/02/2024 9:30 AM Coordinator, [facility] [phone] 03/03/2024 2:30 PM Becki Santillan RN [facility] [phone] documented in this encounter Plan of Treatment Upcoming Encounters Date Type Department Care Team (Late st Contact Info) Description 01/24/2024 3:00 PM EDT Home Visit [facility], [facility] [address] [place] [address] Dewey Guillory PA-C [address] [place] [address] 02/02/2024 9:30 AM EDT Scheduled Telephone [facility], [facility] [place] [address] Coordinator, [facility] [address] [place] [address] 03/03/2024 2:30 PM EDT Home Visit [facility], [facility] [address] [place] [address] Becki Santillan RN [address] [place] [address] Health Maintenance Due Date Last Done Comments [...] Screening Completed 10/19/2015 Zoster Vaccines Completed 08/08/2020, 12/2019, 05/18/2019, Additional history exists Pneumococcal Vaccine: [...] this encounter Medical Devices Implanted Type Area Photographic Process Worker Device Identifier Shelf Expiration Date Model / Serial / Lot 6 Mm X 14 Cm Cook Medical Doris Embolization Coil Implanted:Qty: 2 on 10/21/2015 by Robb Rogel MD at [facility] [place] Right: Lower Arm 07/04/2020 [id number] / [id number] / [id number] Description:6 mm x 14 cm Shuttle Threader k Medical Doris Embolization Coil 6 Mm X 14 Cm Cook Medical Doris Embolization Coil Implanted:Qty: 2 on 10/21/2015 by Robb Rogel MD at [facility] [place] Right: Lower Arm 07/30/2019 [id number] / [id number] / [id number] Description:6 mm x 14 cm Shuttle Threader k Medical Doris Embolization Coil 4 Mm X 14 Cm Cook Medical Doris Embolization Coil Implanted:Qty: 3 on 10/21/2015 by Robb Rogel MD at [facility] [place] Right: Lower Arm 07/05/2020 [id number] / [id number] / [id number] Description:4 mm x 14 cm Shuttle Threader k Medical Doris Embolization Coil 4 Mm X 14 Cm Cook Medical Doris Embolization Coil Implanted:Qty: 5 on 10/21/2015 by Robb Rogel MD at [facility] [place] Right: Lower Arm 07/30/2019 [id number] / [id number] / [id number] Description:4 mm x 14 cm Shuttle Threader k Medical Doris Embolization Coil 4 Mm X 3mm X 2.6 Cm Cook Medical Tornado Embolization Coil Implanted:Qty: 2 on 10/21/2015 by Robb Rogel MD at [facility] [place] Right: Lower Arm 07/18/2020 [id number] / [id number] / [id number] Description:4 mm x 3mm x 2.6 cm Cook Medical Tornado Embolization Coil documented as of this encounter Advance Directives * Full Code (Latest Code Status on File) Date Activated Date Inactivated Comments 10/18/2015 8:38 PM 10/27/2015 5:32 PM Question Answer Comments Discussion of Advance Directives occurred with: Not Discussed Healthcare Agents on File Name Relationship Healthcare Agent [facility] p Communication Oscar Lawson Adult Child Health Care Agen t (per Health Care Power of Java Sql Developer document) Care Teams Child Specialist Relationship Specialty Start Date End Date Pro, Julito Chris MD [address] [place] [facility] [place] [address] PCP - General Internal Medicine 01/24/20 documented as of this encounter
--- OUTSIDE RECORDS SUMMARY | 2024-02-21 20:55 | External Medical Summary | Summary of Care ---
Author Name Unknown Organization [facility] Address [address] 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 ([facility])*; Type 2 diabetes mellitus with chronic kidney disease on chronic dialysis, without long-term current use of insulin ([facility]); Major depressive disorder in partial remission, unspecified whether recurrent ([facility]); TASH and COPD overlap syndrome ([facility]); PMR (polymyalgia rheumatica) ([facility]); Advanced care planning/counseling discussion Allergies Active Allergy Reactions Criticality Noted Date Comments Lisinopril Cough Low 10/18/2015 documented as of this encounter (statuses as of 01/26/2024) Medications Medication Sig Dispensed Refills Start Date End Date Status Magnesium 400 MG Capsule Take 1 Capsule by mouth in the morning. 1 Cap 0 Active calcium acetate, Phos Binder, (PHOSLO) 667 MG TABS tablet Take 2 Tablets by mouth in the morning and 2 Tablets at noon and 2 Tablets in the evening. Take with meals. Takes 1 with snack. 0 Active Multiple Vitamins-Minerals (PRORENAL + D) TABS Take by mouth. Takes 1 tab daily 0 Active ondansetron (ZOFRAN) 8 MG Tablet Take 1 Tablet by mouth every 8 hours as needed for Nausea. 1 Tab 0 Active Gabapentin 300 MG Oral Capsule (Neurontin) TAKE 1 CAPSULE BY MOUTH THREE TIMES A WEEK ON WEDNESDAY, WEDNESDAY AND WEDNESDAY AFTER DIALYSIS 48 Capsule 1 3 Active Bumetanide 2 MG Oral Tablet TAKE TWO TABLETS BY MOUTH TWICE A DAY 360 Tablet 3 3 Active Levothyroxine Sodium 100 MCG Oral Tablet (Levoxyl) TAKE 1 TABLET BY MOUTH DAILY 90 Tablet 3 3 Active hydrALAZINE HCl 25 MG Oral Tablet (Apresoline) Take 1 Tablet by mouth 3 times a day. 270 Tablet 5 3 Active CPAP Uses oxygen with CPAP 3 Active Sodium Zirconium Cyclosilicate 5 GM Oral Packet (Lokelma) Take 1 Packet by mouth once a day on Wednesday, Wednesday, Wednesday ,and Wednesday only. WED, , WED AND Wednesday 2 Active oxygen IN GAS Use 3 L/min(Oxygen) as directed continuous. Active Carvedilol 12.5 MG Oral Tablet (Coreg) Take 1 tablet (12.5mg) by mouth twice a day 180 Tablet 3 4 Active amLODIPine Besylate 10 MG Oral Tablet (Norvasc) Take 1 tablet by mouth daily 90 Tablet 3 4 Active busPIRone HCl 5 MG Oral Tablet (Buspar) Take 1 tablet by mouth twice daily 180 Tablet 3 4 Active Venlafaxine HCl ER 75 MG Oral Capsule Extended Release 24 Hour (Effexor XR) Take 1 capsule by mouth daily 90 Capsule 3 4 Active Pantoprazole Sodium 40 MG Oral Tablet Delayed Release (Protonix) take 1 tablet by mouth twice daily 180 Tablet 3 4 Active Cholecalciferol 50 MCG (2000 UT) Oral Tablet Take 1 Tablet by mouth in the morning. 3 Active Gabapentin 300 MG Oral Capsule (Neurontin) take 1 capsule by mouth three times weekly; Wednesday, , wednesday after dialysis 36 Capsule 1 4 Active LORazepam 1 MG Oral Tablet (Ativan) take one-half tablet by mouth twice a day As Needed for anxiety 30 Tablet 4 Active oxyCODONE HCl 5 MG Oral Tablet (Oxy IR) take one-half tablet by mouth twice a day As Needed for pain 30 Tablet 4 Active Ipratropium-Albut consuelo 0.5-2.5 (3) MG/3ML Inhalation Solution (Duoneb) Inhale 3 mL by mouth every 6 hours as needed. Active OLANZapine 10 MG Oral Tablet (zyPREXA) Take 1/2 tablet by mouth twice daily 30 Tablet 2 4 Active oxyCODONE HCl 5 MG Oral Tablet (Oxy IR) Take one-half tablet by mouth twice daily as needed for pain 30 Tablet 4 Active Lactulose 10 GM/15ML Oral Solution (Constulose) Take 15 mL by mouth daily as needed for Constipation. 1419 mL 3 4 Active Lactulose 10 GM/15ML Oral Solution (Constulose) TAKE 15ML BY MOUTH DAILY NEEDED FOR CONSTIPATION 1419 mL 3 3 024 Discontinued(Re fill) Lactulose 10 GM/15ML Oral Solution (Constulose) Take 15 ml by mouth as needed for constipation 1419 mL 3 4 024 Discontinued documented as of this encounter (statuses as of 01/26/2024) Active Problems Problem Noted Date Diagnosed Date [...] wit h diabetic chronic kidney disease 10/28/2023 Last Assessment & Plan: Diet controlled Last A1c 6.4 %, 05/2023 Hypertensive heart and kidne y disease with [...] guidance Additional Comments: Stable today Continues dialysis gideon marina,sat Recent chf exacerbation, encouraged med compliance and low sodium diet Diabetes mellitus due to und erlying condition with 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, bilateral 07/05/2020 Chronic diastolic congestive heart failure 07/05 Esophageal dysmotility 07/05/2020 PMR (polymyalgia rheumatica) 06/07/2020 Last Assessment & Plan: No longer on prednisone Using oxycodone sparingly for pain DDD (degenerative disc disease), lumbar 06/07/19 21 senior care current use of systemic steroids 06/07 ESRD on dialysis 01/29/2020 Morbid obesity with BMI of 40.0-44.9, adult 12/30 Gastroesophageal reflux disease without esophagi tis 01/25/2020 TASH and COPD overlap syndrome 01/25/2020 Last Assessment & Plan: Continues CPAP at hs and continuous o2, encouraged compliance Not currently on inhalers COPD (chronic obstructive pulmonary disease) HTN (hypertension) Acquired hypothyroidism Hyperlipidemia documented as of this encounter (statuses as of 01/26/2024) Resolved Problems Problem Noted Date Diagnosed Date [...] as of this encounter (statuses as of 01/26/2024) Immunizations Name Administration Dates Next Due COVID-19 mRNA, LNP-s, No Pre serve, 2-Dose Series ([employer]) 08/09/2020,07/19/2020 documented as of this encounter Social [...] 12/30/2023 Does the household have a re lar source of income? (Household - for ages [...] on file documented as of this encounter Last Filed Vital Signs Vital Sign Reading Time Taken Comments Blood Pressure 122/58 01/24/2024 12:55 PM EDT Pulse - - Temperature - - Respiratory Rate - - Oxygen Saturation 96% 01/24/2024 12:55 PM EDT 3L Inhaled Oxygen Concentration - - Weight - - Height - - Body Mass Index - - documented in this encounter Functional Status Functional Status Response Date of Assess ment Are you deaf or do you have serious difficulty h earing? No 10/18/2015 documented as of this encounter Progress Notes * Dewey Guillory PA-C - 01/24/2024 12:53 PM EDT Images from the original note were not included. 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) (Primary) Assessment & Plan: "RED FLAG" HF Symptoms: [...] guidance Additional Comments: Stable today Continues dialysis tues,th,sat Recent chf exacerbation, encouraged med compliance and low sodium diet #2 Type 2 diabetes mellitus with chronic kidney disease on chronic dialysis, without long-term current use of insulin ([facility]) Assessment & Plan: Diet controlled Last A1c 6.4 %, 05/2023 #3 Major depressive disorder in partial remission, unspecified whether recurrent ([facility]) Assessment & Plan: Mood stable Continues on effexor, buspar, and zyprexa #4 TASH and COPD overlap syndrome ([facility]) Assessment & Plan: Continues CPAP at hs and continuous o2, encouraged compliance Not currently on inhalers #5 PMR (polymyalgia rheumatica) ([facility]) Assessment & Plan: No longer on prednisone Using oxycodone sparingly for pain #6 Advanced care planning/counseling discussion Other orders - Lactulose; Take 15 mL by mouth daily as needed for Constipation. Dispense: 1419 mL; Refill: 3 Additional Medical Decision Making: Patient lives with spouse in single level home Ramp to enter Has electric scooter for mobility outside Daughter manages medications, sets up monthly pill boxes Patient relatively sedentary Reinforced use of GAH# at early onset of symptoms to hopefully prevent hospitalizations in the future Scheduled appointments in the next 60 days: Future Appointments-next 60 days Date/Time Provider Specialty Dept Phone 01/24/2024 3:00 PM Dewey Guillory PA-C [facility] [phone] 02/02/2024 9:30 AM Coordinator, [facility] Chapito Manzo [facility] [phone] 03/03/2024 2:30 PM Becki Santillan RN [facility] [phone] A total of 45 minutes was spent face to face (via video-based telemedicine if designated as a telemedicine visit) Subjective Subjective Is this a Telemedicine Visit? No, this is an Home Visit. Reason For [facility] Visit: Follow-Up Current Concerns: Shirley Patrick is a 78 year old female seen today for a [facility] provider visit. PMH includes ESRD on dialysis, CHF, COPD, HTN, DM2, hyperlipidemia, TASH on CPAP, PMR, obesity, depression 01/08-01/12/24 - [facility] - respiratory failure, chf Today's concerns are: Recently hospitalized at [facility] for SOB due to CHF Reports feeling back to baseline today Denies SOB at rest Continues on oxygen 3lpm continuous and cpap at hs Continues dialysis 3xweek tues,thurs,sat Does have occasional back pain, uses 1/2 oxycodone maybe few times weekly Denies pain today Additional Objective Objective Vitals: 01/24/24 1255 SpO2: 96% BP: 122/58 Last Weights: Wt Readings from Last 3 Encounters: 10/08/23 89.8 kg (198 lb) 04/07/23 92.5 kg (203 lb 14.4 oz) 07/16/20 100.2 kg (221 lb) Last BPs: BP Readings from Last 4 Encounters: 01/24/24 122/58 01/16/24 120/60 01/09/24 126/72 12/30/23 136/76 General: alert and no distress Neuro: alert & oriented x 3 with fluent speech Heart: regular rate & rhythm +murmur Lungs: decreased breath sounds, few rales bilat bases Abdomen: abdomen soft, non-tender, normal bowel sounds, and no rebound or guarding Ext: trace ankle edema Lab Review: I have reviewed the following results: BMP results Recent Labs Units 04/07/23 0632 SODIUM - [facility] mmol/L 137 POTASSIUM - [facility] mmol/L 4.6 CHLORIDE - [facility] mmol/L 96* CO2 - [facility] mmol/L 32 CREATININE - [facility] mg/dL 5.7* BUN - [facility] mg/dL 41* Lipid panel resultsNo results for input(s): "CHOL", "LDLCALC", "HDL", "TRIG" in the last 17064 hours. CBC results Recent Labs Units 04/07/23 0632 WBC K/uL 7.21 HGB g/dL 10.9* HCT % 37.1 PLT K/uL 185 HbA1c results No results for input(s): "HGBA1C" in the last 85032 hours. Medication Review Monthly pill box setup by daughter Dewey Guillory PA-C 12:53 PM *Communication sent to PCP (via [facility]ofax if [facility]), [facility] Care Team members,relevant Specialty Care Physicians* documented in this encounter Miscellaneous Notes * ACP (Advance Care Planning) - Dewey Guillory PA-C - 01/26/2024 9:37 AM EDT Images from the original note were not included. Patient-centered Communication 01/24/2024 The patient/surrogate voluntarily agreed to participate in advance care planning discussion. They were advised that this is a separate service which may incur out of pocket cost in the form of copayment and/or deductibles. Location: Home Individual(s) present for conversation: Patient and Spouse Decisions Synopsis SmartLink Most Recent Value Past ~10 years 01/26/2024 09:36 Decisions CPR decision: Declines CPR 01/26/2024 Declines CPR Intubation/Mechanical Ventilation decision: Declines Intubation/mechanical ventilation 01/26/2024 Declines Intubation/mechanical ventilation Antibiotic therapy decision: Patient chooses Antibiotic therapy 01/26/2024 Patient chooses Antibiotic therapy Artificial nutrition decision: Declines Artificial nutrition 01/26/2024 Declines Artificial nutrition IV hydration decision: Patient chooses IV hydration 01/26/2024 Patient chooses IV hydration Blood transfusion decision: Yes 07/11/2020 Lab draw decision: Yes 07/11/2020 Dying at home decision: No, undecided 07/11/2020 Dialysis decision: Patient chooses Dialysis 01/26/2024 Patient chooses Dialysis Additional Comments Synopsis SmartLink Most Recent Value Past ~10 years 01/26/2024 09:36 Additional Comments Additional Comments: remains DNR/DNI. POLST on fridge 01/26/2024 remains DNR/DNI. POLST on weddg Discerning What Matters Most to the Patient: Synopsis SmartLink Most Recent Value Past ~10 years 11/01/2023 09:37 Discerning What Matters Most to the Patient In their own words, patient's UNDERSTANDING of their illness is: Understand the disease is not going to go away or not going to improve 07/11/2020 Their current SYMPTOMS include: Tiredness;Reduced overall well being;Nausea;Shortnes of breath 11/01/2023 Tiredness;Reduced overall well being;Nausea;Shortnes of breath They say their illness has CHANGED THEIR LIFE by: Less enjoyment (quality of life) 11/01/2023 Less enjoyment (quality of life) The patient thinks COMPLICATIONS in the future may be: More fatigue;;Prefers information regarding prognosis 07/11/2020 Was PROGNOSIS discussed? Yes 07/11/2020 Prognosis was discussed today as likely to live: Many years 07/11/2020 Progression of illness described as: Periods of stability with episodes of worsening 07/11/2020 The patient's HOPES are: Maintain current functional abilities;Avoid further hospitalization;Avoid the ICU;Avoid intubation/mechanical ventilation;Avoid the chcf 07/11/2020 The patient's FEARS/WORRIES about illness are: -- Patient states she really has no fears. She does want to be comfortable read at the end really 07/11/2020 The patient considers these as 'UNACCEPTABLE OUTCOMES': Unable to talk/interact with loved ones 07/11/2020 Source: Content from [employer] Program Aligning Care With What Matters Most: [email or web address] QM Power Most Recent Value Past ~10 years 01/26/2024 09:36 Aligning Care With What Matters Most Interventions/Choices: CPR;Intubation/mechanical ventilation;Antibiotic therapy;Artificial nutrition;IV hydration;Dialysis 01/26/2024 CPR;Intubation/mechanical ventilation;Antibiotic therapy;Artificial nutrition;IV hydration;Dialysis Rationale for Decisions Synopsis QM Power Most Recent Value Past ~10 years 07/11/2020 11:34 Dialysis They describe the benefits and burdens of Dialysis treatment as: Patient currently undergoing diabetes multiple years and understands benefits and burdens very well 07/11/2020 Patient currently undergoing diabetes multiple years and understands benefits and burdensvery well Source: Content from [employer] Program 15 minutes spent in direct [id number] discussion today, Dewey Guillory PA-C * Assessment & Plan Note - Dewey Guillory PA-C - 01/26/2024 9:36 AM EDT Associated Problem(s): Type 2 diabetes mellitus with diabetic chronic kidney disease (HCC) Diet controlled Last A1c 6.4 %, 05/2023 * Assessment & Plan Note - Dewey Guillory PA-C - 01/26/2024 9:34 AM EDT Associated Problem(s): PMR (polymyalgia rheumatica) ([facility]) No longer on prednisone Using oxycodone sparingly for pain * Assessment & Plan Note - Dewey Guillory PA-C - 01/26/2024 9:33 AM EDT Associated Problem(s): TASH and COPD overlap syndrome ([facility]) Continues CPAP at hs and continuous o2, encouraged compliance Not currently on inhalers * Assessment & Plan Note - Dewey Guillory PA-C - 01/26/2024 9:33 AM EDT Associated Problem(s): Major depressive disorder in partial remission ([facility]) Mood stable Continues on effexor, buspar, and zyprexa * Assessment & Plan Note - Dewey Guillory PA-C - 01/26/2024 9:33 AM EDT Associated Problem(s): 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 ([facility]) "RED FLAG" HF Symptoms: Leg Swelling (Examples: [...] guidance Additional Comments: Stable today Continues dialysis gideon marina,rodney Recent chf exacerbation, encouraged med compliance and low sodium diet documented in this encounter Plan of Treatment Upcoming Encounters Date Type Department Care Team (Late st Contact Info) Description 02/02/2024 9:30 AM EDT Scheduled Telephone [facility], [facility] [address] [place] [address] Coordinator, [facility] [address] [place] [address] 03/03/2024 2:30 PM EDT Home Visit [facility], [facility] [address] [place] [address] Becki Santillan RN [address] [place] [address] 04/03/2024 1:00 PM EST Home Visit [facility], [facility] [address] [place] [address] Dewey Guillory PA-C [address] [place] [address] Health Maintenance Due Date Last Done Comments [...] 10/21/2024 10/22/2023, , 08/03/2022, Additional history exists DTap/Tdap Vaccines (2 - Td or Tdap) 08/02/2029 [...] this encounter Medical Devices Implanted Type Area Decorative Cutting Machine Tender Device Identifier Shelf Expiration Date Model / Serial / Lot 6 Mm X 14 Cm [employer] Dor[employer] Embolization Coil Implanted:Qty: 2 on 10/21/2015 by Robb Rogel [place] [facility] [place] 07/04/2020 [id number] / [id number] / [id number] Description:6 mm x 14 cm Tube Depatcher k Medical Doris Embolization Coil 6 Mm X 14 Cm [employer] Embolization Coil Implanted:Qty: 2 on 10/21/2015 by Robb Rogel MD at [facility] [place] Lower Arm 07/30/2019 [id number] / [id number] / [id number] Description:6 mm x 14 cm Tube Depatcher [employer] Embolization Coil 4 Mm X 14 Cm [employer] Embolization Coil Implanted:Qty: 3 on 10/21/2015 by Robb Rogel MD at [facility] [place] Lower Arm 07/05/2020 [id number] / [id number] / [id number] Description:4 mm x 14 cm Tube Depatcher [employer] Embolization Coil 4 Mm X 14 Cm [employer] Embolization Coil Implanted:Qty: 5 on 10/21/2015 by Robb Rogel MD at [facility] [place]: Lower Arm 07/30/2019 [id number] / [id number] / [id number] Description:4 mm x 14 cm Tube Depatcher k [employer] Doris Embolization Coil 4 Mm X 3mm X 2.6 Cm [employer] Tornado Embolization Coil Implanted:Qty: 2 on 10/21/2015 by Robb Rogel MD at [facility] [place]: Lower Arm 07/18/2020 [id number] / [id number] / [id number] Description:4 mm x 3mm x 2.6 cm [employer] Tornado Embolization Coil documented as of this encounter Visit Diagnoses Diagnosis 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)- Primary Type 2 diabetes mellitus with chronic kidney disease on chronic dialysis, without long-term current use of insulin (HCC) Major depressive disorder in partial remission, unspecified whether recurrent (HCC) TASH and COPD overlap syndrome (HCC) PMR (polymyalgia rheumatica) (HCC) Polymyalgia rheumatica Advanced care planning/counseling discussion Other specified counseling documented in this encounter Advance Directives * Full Code (Latest Code Status on File) Date Activated Date Inactivated Comments 10/18/2015 8:38 PM 10/27/2015 5:32 PM Question Answer Comments Discussion of Advance Directives occurred with: Not Discussed Healthcare Agents on File Name Relationship [facility] Adult [facility]gen t (per Health Care Power of Inbound Sales Representative document) Care Teams Senior Mechanical Estimator Relationship Specialty Start Date End Date Pro, Julito Chris MD [address] [place] [address] PCP - General Internal Medicine 01/24/20 documented as of this encounter
[2024-02-21] MEDS: PANTOprazole 40 MG TAB PO SCH (22:43)
[2024-02-21] MEDS: SODIUM ZIRCONIUM CYCLOSILICATE 10 GM PACKET PO SCH (22:44)
[2024-02-21] MEDS: LORazepam 0.5 MG TAB PO PRN (23:25)
[2024-02-22 05:15] LABS: Basophils # (auto) 0.06 K/uL (0.00-0.20); Basophils % (auto) 0.8 %; Eosinophils # (auto) 0.26 K/uL (0.00-0.50); Eosinophils % (auto) 3.7 %; Hematocrit (blood only) 36.8 % (37.0-47.0); Hemoglobin 10.9 g/dl (12.0-16.0); Immature Granulocytes # (auto) 0.03 K/uL (0.01-0.20); Immature Granulocytes % (auto) 0.4 %; Lymphocytes # (auto) 1.58 K/uL (1.20-3.40); Lymphocytes % (auto) 22.3 %; Mean Corpuscular Hemoglobin 31.6 pg (25.0-34.0); Mean Corpuscular Hgb Conc 29.6 g/dL (32.0-36.0); Mean Corpuscular Volume 106.7 fL (80.0-100.0); Mean Platelet Volume 10.6 fL (9.4-12.4); Monocytes % (auto) 14.1 %; Neutrophils # (auto) 4.17 K/uL (1.40-6.50); Neutrophils % (auto) 58.7 %; Platelet Count 165 K/uL (130-400); RDW Standard Deviation 59.2 fL (36.4-46.3); Red Blood Count 3.45 M/uL (4.20-5.40)
[2024-02-22 06:12] LABS: Albumin Level 3.6 gm/dl (3.4-5.0); BUN Creatinine Ratio 4.7 (10-20); Bilirubin,Total 0.4 mg/dl (0.2-1.0); Creatinine Clr Calc Pharmacy 9.9 ml/min; Est GFR (African American) 9.3 ml/min; Globulin 3.5 gm/dl (2.5-4.0); Magnesium 2.4 mg/dl (1.7-2.4); Potassium 5.8 mmol/L (3.5-5.1); Total Protein 7.1 gm/dl (6.0-8.3)
--- NOTE | 2024-02-22 06:19 | Electrocardiogram Report ---
Test Reason : Blood Pressure : */* mmHG Vent. Rate : 54 BPM Atrial Rate : * BPM P-R Int : * ms QRS Dur : 82 ms QT Int : 240 ms P-R-T Axes : * 25 185 degrees QTcB Int : 228 ms Atrial fibrillation with slow ventricular response with premature ventricular or aberrantly conducted complexes Low voltage QRS Right bundle branch block Abnormal ECG When compared with ECG of 09-Jan-2024 15:41, Right bundle branch block is now Present Atrial fibrillation has replaced Sinus rhythm Confirmed by Kareem Giang ([id number]) on 02/22/2024 6:19:07 AM Referred By: REFERRED SELF Confirmed By: Kareem Giang
[2024-02-22] MEDS: DEXTROSE 50% 50 ML SYRINGE IV PRN (06:20)
--- NOTE | 2024-02-22 08:20 | Critical Care Progress Note ---
Date of Service February 22, 2024 Assessment & Plan (1) Acute hyperkalemia: (2) Acute heart failure with preserved ejection fraction: (3) Hypothyroidism: (4) Diabetes mellitus: (5) Depression with anxiety: (6) CHF (congestive heart failure): Plan (1) Acute hyperkalemia: - Patient w/ chronic hyperkalemia related to end-stage renal disease. Unclear with the provoking event for this acute hyperkalemia was. She does not have evidence of hemolysis. - Continue protocol per nephrology. Given an additional 2 g of calcium gluconate. She was also given Lokelma in the ER. Patient to undergo hemodialysis urgently today. Hemodynamically she is stable. (2) CHF (congestive heart failure): Patient appears to have acute on chronic CHF likely provoked by arrhythmia due to hyperkalemia. Dialysis should improve her fluid status and hypoxemia. (3) Acute respiratory failure with hypoxia and hypercarbia: Patient with evidence of acute on chronic hypercarbic respiratory failure on admission based on VBG; unclear whether the hypercarbic respiratory failure was provoked due to the hyperkalemia or vice versa. - improved status while in ICU, currently on 3 L O2, NC, w/ RR 20, SpO2 95 Chronic conditions 4) Depression/anxiety - restarted buspirone, 5 mg, PO, BID; lorazepam, 0.5 mg, PO, BID, PRN - olanzapine, 5 mg, PO, BID 5) Hypothyroidism - levothyroxine, 100 mcg, PO, QPM 6) Restless leg syndrome - Gabapentin, 300 mg, PO, Q3xWK (QTuThSa), following dialysis Patient follows with Dr. Guerrero in the pulmonary clinic and was last seen by him 03/02/2023. He noted a history of sleep disordered breathing/obesity hypoventilation syndrome. Unclear whether she is compliant with BiPAP at this time. She would benefit from outpatient follow-up with Dr. Guerrero. It appears that she has an appointment scheduled with him at 3:00 on 03/03/2024. Plan Discussed with hospitalist service and ICU nursing. Admission and Anticipated Discharge Date Admission Date: February 21, 2024 Supervising Physician Co-Signing Physician Notes Patient seen and examined with the resident physician. Agree with the note as above unless otherwise specified. Hemodynamically she remained stable. Potassium is improved significantly with dialysis. She is going to undergo an additional dialysis session today. Will restart home medications. Patient discussed on multidisciplinary rounds. Stable for downgrade to PCU. Orders have been placed. Subjective Patient is a 78 yo F w/ a PMHx of HFpEF, COPD, mixed res/obs lung disease, HTN, T2DM, anemia, coronary artery disease, hypothyroidism, polyarthritis, TASH, insomnia, depression/anxiety, ESRD (on HD), PMR, diverticulitis, restless leg syndrome, and hiatal hernia (w/ GERD) who was admitted to the ICU due to severe hyperkalemia with a concerning EKG (widened QRS complexes, absent P waves, bradycardia). This morning the patient continues to feel extreme fatigue, irritability, in addition to thigh pain. She specifically denies any CP or palpitations, dyspnea or chest congestion, AP/N/V, diarrhea or constipation. Endorses tingling in her lower legs and feet. Scheduled to receive hemodialysis this morning. Review of Systems Constitutional: + fatigue Respiratory: no cough and no dyspnea Cardiovascular: no chest pain and no palpitations Gastrointestinal: no abdominal pain, no nausea, no vomiting, no constipation and no diarrhea/loose stools Genitourinary: no dysuria Neurologic: + tingling (in her feet) and + numbness; no headache(s) Physical Exam Constitutional: WD/WN, vitals as above Respiratory: normal respiratory effort, lungs clear to auscultation Cardiovascular: Rate/Rhythm: regular rate and regular rhythm Extremities: normal capillary refill and + pedal edema; no calf tenderness Gastrointestinal (Abdomen): normal bowel sounds, soft, nontender, no hepatosplenomegaly Psychiatric: Orientation: alert, oriented to person, oriented to place, oriented to time (correct year, incorrect month) and cooperative Results & Data Results & Data Vital Signs (Past 12 Hours) Vital Signs Pulse Resp BP Pulse Ox O2 Del Method O2 Flow Rate 02/22/24 06:03 63 12 97 02/22/24 06:00 150/55 H 02/22/24 05:45 65 15 98 02/22/24 05:21 66 14 98 02/22/24 04:12 67 19 142/54 H 98 Nasal Cannula 3 02/22/24 03:24 62 14 96 02/22/24 03:22 115/49 L 02/22/24 03:22 115/49 L 02/22/24 03:22 115/49 L 02/22/24 03:18 63 14 96 02/22/24 03:06 65 14 95 02/22/24 02:00 66 14 97 02/22/24 01:16 68 13 98 3 02/22/24 01:03 67 13 96 02/22/24 00:09 66 14 97 02/22/24 00:01 147/69 H 02/22/24 00:01 147/69 H 02/22/24 00:01 147/69 H 02/22/24 00:00 66 02/21/24 23:51 65 14 98 02/21/24 23:33 64 14 99 02/21/24 23:31 173/79 H 02/21/24 23:27 71 16 98 02/21/24 22:00 135/96 02/21/24 22:00 64 16 98 02/21/24 21:32 154/86 H 02/21/24 21:12 64 14 99 02/21/24 21:03 63 16 99 02/21/24 21:01 164/84 H 02/21/24 20:54 63 15 99 02/21/24 20:31 178/97 H (3) Hypothyroidism Hypothyroidism type: unspecified Qualified Code(s): E03.9 - Hypothyroidism, unspecified (4) Diabetes mellitus Chronic kidney disease stage: on chronic dialysis Diabetes mellitus complication detail: with chronic kidney disease Diabetes mellitus complication status: with kidney complications Diabetes mellitus skilled nursing insulin use: with skilled nursing use Diabetes mellitus type: type 2 Qualified Code(s): E11.22 - Type 2 diabetes mellitus with diabetic chronic kidney disease; N18.6 - End stage renal disease; Z79.4 - long term care phlebotomist (current) use of insulin; Z99.2 - Dependence on renal dialysis (6) CHF (congestive heart failure) Heart failure chronicity: unspecified Heart failure type: unspecified Qualified Code(s): I50.9 - Heart failure, unspecified
[2024-02-22] MEDS: ACETAMINOPHEN 500 MG TAB PO PRN (09:20)
[2024-02-22] MEDS ORDERED: CALCIUM ACETATE 667 MG CAP/TAB PO PRN (10:00)
--- NOTE | 2024-02-22 10:05 | Pharmacy Report ---
Pharmacy Glycemic Sign Off Nt - Date of Service February 22, 2024 - Assessment & Plan ASSESSMENT: * Patient is not on diabetes meds at home * Hyperglycemia noted - received 10 units IV insulin for hyperkalemia (not hyperglycemia). BSG's now low, with one episode of hypoglycemia * No further insulin needed, except if BSG's again become elevated - correction factor only ordered * Discussed at ICU rounds - Dr. Nina aware pharmacy signing off PLAN FOR INPATIENT GLYCEMIC CONTROL: No changes needed to current regimen. * Continue NovoLog per scale ACHS/Q6hrs while NPO * Goal range = 140 180 mg/dl * CF = 50 mg/dl/unit * CR = none * Pharmacy is signing off of glycemic consult and will no longer be making adjustments to inpatient regimen. Please feel free to re-consult if needed. Thank you.
--- NOTE | 2024-02-22 10:25 | Nephrology Progress Note ---
Date of Service February 22, 2024 Assessment & Plan (1) Acute hyperkalemia: (2) Acute respiratory failure with hypoxia and hypercarbia: (3) End-stage renal disease on hemodialysis: Plan 78-year-old female with ESKD, on hemodialysis Wednesday, , Wednesday, admitted with acute Hyperkalemia, volume overload. Blood pressure elevated this morning. Respiratory status fair. Potassium 5.8. Had dialysis yesterday. --Plan for dialysis this morning as a regular schedule with 2 K bath for K of 5.8. --Dose medications for eGFR less than 10, Low K diet --Renal vitamins daily -- Continue on Lokelak Admission and Anticipated Discharge Date Admission Date: February 21, 2024 Jorge Watson was seen and evaluated this morning while in ICU. She reports being bothered by pain in her leg which has been chronic. Denies shortness of breath or chest pain. Had dialysis yesterday, still elevated at 5.8. Blood pressure elevated. Has been getting Lokelma. Review of Systems Review of Systems: Detailed review of system was otherwise unremarkable except mentioned above. Physical Exam Constitutional: WD/WN, vitals as above no acute distress Eyes: + anicteric sclerae Respiratory: no respiratory distress Auscultation: + diminished lung sounds Cardiovascular: Rate/Rhythm: regular rate and regular rhythm Heart Sounds: normal S1 and normal S2 Extremities: + AV fistula (With thrill and bruit); no edema Musculoskeletal: Extremities: extremities normal to inspection Neurologic: no focal motor deficits Psychiatric: Orientation: alert and oriented x 3 Affect: euthymic affect Results & Data Vital Signs (Past 12 Hours) Vital Signs Temp Pulse Resp BP Pulse Ox O2 Del Method O2 Flow Rate 02/22/24 09:01 178/83 H 02/22/24 09:00 71 21 95 02/22/24 08:37 36.8 C 02/22/24 08:03 70 14 97 02/22/24 08:01 190/78 H 02/22/24 08:00 Nasal Cannula 3 02/22/24 08:00 68 02/22/24 07:51 70 17 97 02/22/24 07:18 68 19 97 02/22/24 07:00 155/80 H 02/22/24 06:45 64 16 97 02/22/24 06:03 63 12 97 02/22/24 06:00 150/55 H 02/22/24 05:45 65 15 98 02/22/24 05:21 66 14 98 02/22/24 04:12 67 19 142/54 H 98 Nasal Cannula 3 02/22/24 03:24 62 14 96 02/22/24 03:22 115/49 L 02/22/24 03:22 115/49 L 02/22/24 03:22 115/49 L 02/22/24 03:18 63 14 96 02/22/24 03:06 65 14 95 02/22/24 02:00 66 14 97 02/22/24 01:16 68 13 98 3 02/22/24 01:03 67 13 96 02/22/24 00:09 66 14 97 02/22/24 00:01 147/69 H 02/22/24 00:01 147/69 H 02/22/24 00:01 147/69 H 02/22/24 00:00 66 02/21/24 23:51 65 14 98 02/21/24 23:33 64 14 99 02/21/24 23:31 173/79 H 02/21/24 23:27 71 16 98 PG Care Time/CCT Total # of Minutes Spent Total Time Spent with Patient: Total time spent is greater than 50% in coordination of care (as documented) at patient's floor/unit and/or counseling patient: Coding Level of Care Code 71335 SUB INP/OBS CARE 2/35MIN Diagnoses Acute hyperkalemia E87.5 Acute respiratory failure with hypoxia and hypercarbia J96.01; J96.02 End-stage renal disease on hemodialysis N18.6; Z99.2
--- NOTE | 2024-02-22 10:51 | Billing Data ---
Date of Service February 22, 2024 Coding Level of Care Code 83683 SUB INP/OBS CARE
[2024-02-22] MEDS: CALCIUM ACETATE 667 MG CAP/TAB PO SCH (13:55)
[2024-02-22] MEDS: POLYETHYLENE (MIRALAX) 17 GM PACK PO SCH (13:55)
[2024-02-22] MEDS: INSULIN ASPART PER UNIT CHARGE SC SCH (14:03)
[2024-02-22] MEDS: GABAPENTIN 300 MG CAP PO SCH (16:42)
--- NOTE | 2024-02-22 18:14 | Hospitalist Progress Note ---
Date of Service February 22, 2024 Assessment & Plan (1) Acute hyperkalemia: Plan: Peak K was 9. EKG on arrival to the ER with widened QRS of 240ms, severe bradycardia with rates 30-40, no p waves. Cause of high K uncertain. Is typically on Lokelma on non-HD days. No recent missed dialysis days, no change in medications or potassium supplementation. s/p IV calcium gluconate, insulin/dextrose, Lokelma, Sodium bicarb, and HD yesterday (3 L UF obtained) and HD today (2 L UF Obtained). K level improved to 5.8. To be complete will check cortisol level in am. At discharge consider DAILY Lokelma. Will d/w nephrology. (2) Acute heart failure with preserved ejection fraction: Plan: s/p HD yesterday - 3 Liters UF removed; and HD today - 2 Liters removed. Acute CHF - likely due to extreme bradycardia induced by hyperkalemia - resolved. (3) Acute respiratory failure with hypoxia and hypercarbia: Plan: resolved, back to home NC O2 amount. 2nd to fluid overload in the setting of #1 and severe bradycardia from such. serial HD with resolved fluid overload. biofire respiratory panel negative. (4) Diabetes mellitus: Plan: previous a1c 6.5% in 07/2023 cont novolog SSI (5) Hypertension: Plan: amlodipine, coreg, hydralazine all on hold at this time BPs acceptable (6) Depression with anxiety: Plan: can resume venlafaxine (7) Obstructive sleep apnea: Plan: BiPAP HS (8) Chronic respiratory failure with hypoxia: Plan: on home O2 3 liters continuously stable today (9) Hypothyroidism: Plan: TSH wnl at 3.4 earlier in 2023 cont synthroid (10) End-stage renal disease on hemodialysis: Plan: typical schedule //Sat appreciate [facility] Nephrology assistance Plan updated at bedside Admission and Anticipated Discharge Date Admission Date: February 21, 2024 Subjective patient reports "feeling great" and "being ready to go home" denies any dizziness, dyspnea, chest pain tele with NSR only complaint is that of feeling cold due to the room being cold at bedside Review of Systems Review of Systems: gen - no fevers or rigors cv - no cp pulm - no cough GI - no N/V/abd pain Physical Exam Physical Exam: gen - NAD, sitting in chair neck - no JVD mouth - MMM heart - RRR, s1 s2, no murmur lungs - CTA b/l abd - soft NT ND BS+ ext - pulses feet 2+ b/l psych - a/o x 3 Results & Data Results & Data Vital Signs (Past 12 Hours) Vital Signs Temp Pulse Pulse Resp BP BP Pulse Ox 02/22/24 17:03 76 19 99 02/22/24 17:01 146/84 H 02/22/24 16:54 77 14 100 02/22/24 16:00 142/68 H 02/22/24 16:00 70 15 98 02/22/24 16:00 85 02/22/24 15:06 76 15 90 02/22/24 15:00 133/57 L 02/22/24 14:57 77 15 90 02/22/24 14:06 82 16 93 02/22/24 14:02 133/65 02/22/24 13:54 72 12 96 02/22/24 13:53 145/73 H 02/22/24 13:51 73 19 96 02/22/24 13:25 36.9 C 68 150/79 H 02/22/24 13:16 68 142/70 H 02/22/24 13:00 67 142/61 H 02/22/24 13:00 67 9 L 02/22/24 12:30 67 130/69 02/22/24 12:00 68 11 L 02/22/24 12:00 71 101/67 02/22/24 11:30 67 138/67 02/22/24 11:00 68 4 L 02/22/24 11:00 59 L 120/84 02/22/24 10:30 68 128/68 02/22/24 10:16 69 133/63 02/22/24 10:09 71 4 L 02/22/24 10:06 36.9 C 69 02/22/24 09:03 71 25 H 95 02/22/24 09:01 178/83 H 02/22/24 09:00 71 21 95 02/22/24 08:37 36.8 C 02/22/24 08:03 70 14 97 02/22/24 08:01 190/78 H 02/22/24 08:00 02/22/24 08:00 68 09/24/24 07:51 70 17 97 02/22/24 07:18 68 19 97 02/22/24 07:00 155/80 H 02/22/24 06:45 64 16 97 O2 Del Method O2 Flow Rate 02/22/24 17:03 02/22/24 17:01 02/22/24 16:54 02/22/24 16:00 02/22/24 16:00 02/22/24 16:00 02/22/24 15:06 02/22/24 15:00 02/22/24 14:57 02/22/24 14:06 02/22/24 14:02 02/22/24 13:54 02/22/24 13:53 02/22/24 13:51 02/22/24 13:25 02/22/24 13:16 02/22/24 13:00 02/22/24 13:00 02/22/24 12:30 02/22/24 12:00 02/22/24 12:00 02/22/24 11:30 02/22/24 11:00 02/22/24 11:00 02/22/24 10:30 02/22/24 10:16 02/22/24 10:09 02/22/24 10:06 02/22/24 09:03 02/22/24 09:01 02/22/24 09:00 02/22/24 08:37 02/22/24 08:03 02/22/24 08:01 02/22/24 08:00 Nasal Cannula 3 02/22/24 08:00 02/22/24 07:51 02/22/24 07:18 02/22/24 07:00 02/22/24 06:45 Laboratory Results Laboratory Results - last 24 hr 02/21/24 02/21/24 02/21/24 19:52 21:06 23:29 WBC RBC Hgb Hct MCV MCH MCHC RDW Std Deviation RDW Coeff of Jared Plt Count MPV Immature Gran % (Auto) Neut % (Auto) Lymph % (Auto) [place] % (Auto) Eos % (Auto) Baso % (Auto) Neut # (Auto) Lymph # (Auto) [place] # (Auto) Eos # (Auto) Baso # (Auto) Immature Gran # (Auto) Sodium 134 L Potassium TNP 5.6 H D Chloride 98 Carbon Dioxide 31 Anion Gap 5 BUN 22 D Creatinine 4.14 H D Est Cr Clr Drug Dosing 11.6 Est GFR ( Amer) 11.2 Est GFR (Non-Af Amer) 9.7 BUN/Creatinine Ratio 5.3 L Glucose 114 H POC Glucose 86 Calcium 9.6 Phosphorus 2.8 Magnesium 2.4 Total Bilirubin AST ALT Alkaline Phosphatase Total Protein Albumin Globulin Albumin/Globulin Ratio 02/22/24 02/22/24 02/22/24 04:42 06:38 09:14 WBC 7.10 RBC 3.45 L Hgb 10.9 L Hct 36.8 L MCV 106.7 H MCH 31.6 MCHC 29.6 L RDW Std Deviation 59.2 H RDW Coeff of Jared 15.0 H Plt Count 165 MPV 10.6 Immature Gran % (Auto) 0.4 Neut % (Auto) 58.7 Lymph % (Auto) 22.3 [place] % (Auto) 14.1 Eos % (Auto) 3.7 Baso % (Auto) 0.8 Neut # (Auto) 4.17 Lymph # (Auto) 1.58 [place] # (Auto) 1.00 H Eos # (Auto) 0.26 Baso # (Auto) 0.06 Immature Gran # (Auto) 0.03 Sodium 135 L Potassium 5.8 H Chloride 98 Carbon Dioxide 30 Anion Gap 7 BUN 23 Creatinine 4.85 H* D Est Cr Clr Drug Dosing 9.9 Est GFR ( Amer) 9.3 Est GFR (Non-Af Amer) 8.0 BUN/Creatinine Ratio 4.7 L Glucose 59 L POC Glucose 117 H 92 Calcium 9.0 Phosphorus 3.0 Magnesium 2.4 Total Bilirubin 0.4 AST 21 ALT 8 Alkaline Phosphatase 81 Total Protein 7.1 Albumin 3.6 Globulin 3.5 Albumin/Globulin Ratio 1.0 02/22/24 02/22/24 13:47 16:23 WBC RBC Hgb Hct MCV MCH MCHC RDW Std Deviation RDW Coeff of Jared Plt Count MPV Immature Gran % (Auto) Neut % (Auto) Lymph % (Auto) [place] % (Auto) Eos % (Auto) Baso % (Auto) Neut # (Auto) Lymph # (Auto) [place] # (Auto) Eos # (Auto) Baso # (Auto) Immature Gran # (Auto) Sodium Potassium Chloride Carbon Dioxide Anion Gap BUN Creatinine Est Cr Clr Drug Dosing Est GFR ( Amer) Est GFR (Non-Af Amer) BUN/Creatinine Ratio Glucose POC Glucose 108 H 171 H Calcium Phosphorus Magnesium Total Bilirubin AST ALT Alkaline Phosphatase Total Protein Albumin Globulin Albumin/Globulin Ratio PG Care Time/CCT Total # of Minutes Spent Total Time Spent with Patient: Total time spent is greater than 50% in coordination of care (as documented) at patient's floor/unit and/or counseling patient: Coding Level of Care Code 27372 SUB INP/OBS CARE 2/35MIN Diagnoses Acute hyperkalemia E87.5 Acute heart failure with preserved ejection fraction I50.31 Acute respiratory failure with hypoxia and hypercarbia J96.01; J96.02 Type 2 diabetes mellitus with chronic kidney disease on chronic dialysis, with long-term current use of insulin E11.22; N18.6; Z79.4; Z99.2 Chronic kidney disease stage: on chronic dialysis Diabetes mellitus complication detail: with chronic kidney disease Diabetes mellitus complication status: with kidney complications Diabetes mellitus adjunct faculty for medical terminology insulin use: with snf use Diabetes mellitus type: type 2 Hypertension I10 Depression with anxiety F41.8 Obstructive sleep apnea G47.33 Chronic respiratory failure with hypoxia J96.11 Hypothyroidism, unspecified type E03.9 Hypothyroidism type: unspecified End-stage renal disease on hemodialysis N18.6; Z99.2 (4) Diabetes mellitus Chronic kidney disease stage: on chronic dialysis Diabetes mellitus complication detail: with chronic kidney disease Diabetes mellitus complication status: with kidney complications Diabetes mellitus adjunct faculty for medical terminology insulin use: with snf use Diabetes mellitus type: type 2 Qualified Code(s): E11.22 - Type 2 diabetes mellitus with diabetic chronic kidney disease; N18.6 - End stage renal disease; Z79.4 - terminal computer operator (current) use of insulin; Z99.2 - Dependence on renal dialysis (9) Hypothyroidism Hypothyroidism type: unspecified Qualified Code(s): E03.9 - Hypothyroidism, unspecified
[2024-02-22] MEDS: busPIRone 5 MG TAB PO SCH (20:19)
[2024-02-22] MEDS: OLANZapine 5 MG TABLET PO SCH (20:19)
[2024-02-22] MEDS: LEVOTHYROXINE SODIUM 100 MCG TABLET PO SCH (20:19)
--- NOTE | 2024-02-22 21:49 | Electrocardiogram Report ---
Test Reason : Blood Pressure : */* mmHG Vent. Rate : 66 BPM Atrial Rate : 66 BPM P-R Int : 280 ms QRS Dur : 122 ms QT Int : 422 ms P-R-T Axes : * -75 23 degrees QTcB Int : 443 ms Sinus rhythm with 1st degree A-V block Left axis deviation Right bundle branch block Anterior infarct (cited on or before 22-Jul-2022) Possible Septal infarct Abnormal ECG When compared with ECG of 21-Feb-2024 12:05, QRS duration has decreased Sinus rhythm has replaced Atrial fibrillation Confirmed by Kareem Giang ([id number]) on 02/22/2024 9:48:49 PM Referred By: REFERRED SELF Confirmed By: Kareem Giang
--- NOTE | 2024-02-22 21:50 | Electrocardiogram Report ---
Test Reason : Blood Pressure : */* mmHG Vent. Rate : 72 BPM Atrial Rate : 72 BPM P-R Int : 212 ms QRS Dur : 104 ms QT Int : 400 ms P-R-T Axes : 46 -62 66 degrees QTcB Int : 438 ms Sinus rhythm with 1st degree A-V block Left axis deviation Poor R wave progression, consider anterior GA vs. lead placement vs. LVH Abnormal ECG When compared with ECG of 21-Feb-2024 12:28, MD interval has decreased Right bundle branch block is no longer Present Confirmed by Kareem Giang ([id number] on 02/22/2024 9:49:54 PM Referred By: REFERRED SELF Confirmed By: Kareem Giang
[2024-02-23 00:21] VITALS: TEMP 98.5
[2024-02-23 05:30] LABS: BUN Creatinine Ratio 3.8 (10-20); Calcium 8.7 mg/dl (8.6-10.3); Creatinine Clr Calc Pharmacy 11.5 ml/min; Est GFR (African American) 10.9 ml/min; Est GFR (Non-African American) 9.4 ml/min; Potassium 3.8 mmol/L (3.5-5.1)
[2024-02-23 08:24] VITALS: O2SAT 100
[2024-02-23 10:39] VITALS: RESP 21
[2024-02-23 10:41] VITALS: BP 154/81; PULSE 69
--- NOTE | 2024-02-23 10:45 | Nephrology Progress Note ---
Date of Service February 23, 2024 Assessment & Plan (1) Acute hyperkalemia: (2) Acute respiratory failure with hypoxia and hypercarbia: (3) End-stage renal disease on hemodialysis: Plan 78-year-old female with ESKD, on hemodialysis Wednesday, , Wednesday, admitted with acute Hyperkalemia, volume overload. Respiratory status fair. Potassium 3.8. 2 dialysis session [id number], continued on Lokelma. --Next dialysis tomorrow, could be discharged from nephrology standpoint, can be done at outpatient facility if discharge later today. --Dose medications for eGFR less than 10, Low K diet --Renal vitamins daily --Continue on Lokelma daily, discussed importance of following low potassium diet and taking Lokelma as prescribed. Admission and Anticipated Discharge Date Admission Date: February 21, 2024 Jorge Watson was seen and evaluated this morning. She reports overall feeling well, denies shortness of breath or chest pain. Had dialysis yesterday, potassium this morning 3.8. Blood pressure fair. Has been getting Lokelma. Review of Systems Review of Systems: Detailed review of system was otherwise unremarkable except mentioned above. Physical Exam Constitutional: WD/WN, vitals as above no acute distress Eyes: + anicteric sclerae Respiratory: normal respiratory effort; no respiratory distress and no cough Auscultation: + diminished lung sounds Cardiovascular: Rate/Rhythm: regular rate and regular rhythm Heart Sounds: normal S1 and normal S2 Extremities: + AV fistula (With thrill and bruit); no edema Musculoskeletal: Extremities: extremities normal to inspection Neurologic: no focal motor deficits Psychiatric: Orientation: alert and oriented x 3 Affect: euthymic affect Results & Data Vital Signs (Past 12 Hours) Vital Signs Temp Pulse Pulse Resp BP BP Pulse Ox 02/23/24 10:36 36.9 C 71 21 150/79 H 100 02/23/24 10:32 69 18 154/81 H 98 02/23/24 08:36 02/23/24 08:00 68 138/63 100 02/23/24 08:00 61 02/23/24 00:06 61 12 98 02/23/24 00:00 118/53 L 02/23/24 00:00 36.9 C 61 12 118/53 L 99 02/23/24 00:00 67 O2 Del Method O2 Flow Rate 02/23/24 10:36 02/23/24 10:32 Nasal Cannula 2 02/23/24 08:36 Nasal Cannula 2 02/23/24 08:00 Nasal Cannula 2 02/23/24 08:00 02/23/24 00:06 02/23/24 00:00 02/23/24 00:00 2 02/23/24 00:00 PG Care Time/CCT Total # of Minutes Spent Total Time Spent with Patient: Total time spent is greater than 50% in coordination of care (as documented) at patient's floor/unit and/or counseling patient: Coding Level of Care Code 71085 SUB INP/OBS CARE 2/35MIN Diagnoses Acute hyperkalemia E87.5 Acute respiratory failure with hypoxia and hypercarbia J96.01; J96.02 End-stage renal disease on hemodialysis N18.6; Z99.2
[2024-02-23] MEDS: SODIUM ZIRCONIUM CYCLOSILICATE 10 GM PACKET PO SCH (10:47)
--- NOTE | 2024-02-23 15:19 | Discharge Summary ---
Discharge Summary Date of Service February 23, 2024 Principal Dx & Hospital Course #1 = Principal Diagnosis (1) Acute hyperkalemia: Peak K was 9. EKG on arrival to the ER with widened QRS of 240ms, severe bradycardia with rates 30-40, no p waves. Cause of high K uncertain. Is typically on Lokelma on non-HD days. No recent missed dialysis days, no change in medications or potassium supplementation. s/p IV calcium gluconate, insulin/dextrose, Lokelma, Sodium bicarb, and HD yesterday (3 L UF obtained) and HD today (2 L UF Obtained). K level improved to 5.8. To be complete will check cortisol level in am. At discharge consider DAILY Lokelma. Will d/w nephrology. (2) Acute heart failure with preserved ejection fraction: s/p HD yesterday - 3 Liters UF removed; and HD today - 2 Liters removed. Acute CHF - likely due to extreme bradycardia induced by hyperkalemia - resolved. (3) Acute respiratory failure with hypoxia and hypercarbia: resolved, back to home [place] O2 amount. 2nd to fluid overload in the setting of #1 and severe bradycardia from such. serial HD with resolved fluid overload. biofire respiratory panel negative. (4) Diabetes mellitus: previous a1c 6.5% in 07/2023 cont novolog SSI (5) Hypertension: amlodipine, coreg, hydralazine all on hold at this time BPs acceptable (6) Depression with anxiety: can resume venlafaxine (7) Obstructive sleep apnea: BiPAP HS (8) Chronic respiratory failure with hypoxia: on home O2 3 liters continuously stable today (9) Hypothyroidism: TSH wnl at 3.4 earlier in 2023 cont synthroid (10) End-stage renal disease on hemodialysis: typical schedule //Wed appreciate [facility] Nephrology assistance Plan updated at bedside Admission HPI Per Admitting Provider Shirley Patrick is a 78 year old female with end-stage renal disease on dialysis who presents to the ER with sudden shortness of breath and hypoxia. She reports feeling her normal self yesterday and early this morning. Around 9 AM while sitting down she developed sudden onset shortness of breath with associated nausea without chest pain, diaphoresis. No fever, chills, cough, sinus pain. She is on baseline 2 to 3 L of oxygen chronically but when the EMS arrived she was 78% on 5 L and was placed on 15 L nonrebreather mask. In the emergency room she was noted to have widening QRS and bradycardia on EKG. [id number] potassium 8.9. She has not missed any dialysis sessions, no change in medications or known potassium supplementation including salt substitutes. Discharge Exam gen - NAD, sitting in chair neck - no JVD mouth - MMM heart - RRR, s1 s2, no murmur lungs - CTA b/l abd - soft NT ND BS+ ext - pulses feet 2+ b/l psych - a/o x 3 Discharge Plan Discharge Items Patient Disposition: Home - Self-Care Reason For Visit: severe hyperkalemia, esrd on dialysis Discharge Diagnosis: 1. severe hyperkalemia (high potassium level) - resolved 2. end-stage renal disease on dialysis Wednesday, , and Wednesday 3. bradycardia (slow heart rate) due to #1 - resolved Activity: Resume your previous activity Non-emergency contact: Primary Care Provider and Consulting Group Analyst Call non-emergency contact if: you have any medication questions and your symptoms worsen Follow-up/Referrals: Pro,Julito Grijalva MD [Primary Care Provider] - Diet: Carb Consistent or DM2, Dialysis Renal and Low Potassium (2gm) Addtl Attending Provider Instructions: Mrs Patrick, You were hospitalized due to high potassium levels. Certainly having kidney disease and being on dialysis makes you more susceptible to high potassium levels in the blood. However, this time your potassium level zuri to dangerously high levels (went to 9). When potassium reaches this level it causes heart rhythm disturbances. Upon arrival to [facility] your heart rate was very low which was a direct result of the high potassium. In addition, you were requiring more oxygen than usual, likely due to fluid build-up in the lungs. The fluid built up in the lungs likely as a result of the high potassium and slow heart rate. Multiple doses of Lokelma, serial dialysis treatments, and other medicines were given to reduce the potassium level. Today your potassium level is now normal (3.8). Please be sure to follow a LOW POTASSIUM diet (see handout) and take your Lokelma EVERY DAY. In addition, please remember to take the 10 gram packet of Lokelma every day (not 5 grams). If you have frequent stools on the increased dose of Lokelma simply stop your miralax. Follow-up - report for your usual dialysis treatment on , 02/24/24, at the [facility] if - * you have fever over 100 degrees * you have worsening shortness of breath * you have chest pains * you feel dizzy or lightheaded * any other concerns It was our pleasure to care for you! Pending Studies at Discharge: No Stand-Alone Forms: [facility], Smoking Cessation Medications and DC Order Prescriptions: Continued (DME) lancets [OneTouch Delica Lancets] 33 gauge misc See Rx Instructions .ROUTE .MEDSUPPLY Qty: 100 3RF Rx Instructions: use to test twice daily (DME) OneTouch Verio test strips Strip See Rx Instructions .ROUTE .MEDSUPPLY Qty: 300 3RF Rx Instructions: test twice daily E11.9 (DME) blood-glucose meter [OneTouch Verio Meter] Misc See Rx Instructions .ROUTE .MEDSUPPLY Qty: 1 0RF Rx Instructions: As directed E11.9 cholecalciferol (vitamin D3) 50 mcg (2,000 unit) capsule 50 mcg PO DAILY Qty: 90 3RF ondansetron 8 mg tablet,disintegrating 8 mg PO Q8H PRN (Reason: Nausea) Qty: 90 5RF amlodipine 10 mg tablet 10 mg PO DAILY Qty: 90 3RF carvedilol [Coreg] 12.5 mg tablet 12.5 mg PO BID Qty: 180 3RF polyethylene glycol 3350 [Miralax] 17 gram/dose powder 17 g PO DAILY Qty: 510 2RF lactulose 10 gram/15 mL solution 15 ml PO DAILY PRN (Reason: Constipation) Qty: 1350 3RF buspirone 5 mg tablet 5 mg PO BID Qty: 180 3RF pantoprazole 40 mg tablet,delayed release (DR/EC) 40 mg PO BID 90 Days Qty: 180 3RF venlafaxine 75 mg capsule,extended release 24hr 75 mg PO DAILY Qty: 90 3RF gabapentin 300 mg capsule 300 mg PO 3XWK Qty: 36 1RF Rx Instructions: Wednesday, , wednesday after dialysis olanzapine 10 mg tablet See Rx Instructions PO BID Qty: 90 3RF Rx Instructions: 1/2 tab orally twice a day levothyroxine 100 mcg tablet 100 mcg PO QPM Qty: 90 3RF (DME) Oxygen Home Liters Per Minute See Rx Instructions .ROUTE .MEDSUPPLY Qty: 1 0RF Rx Instructions: 3 liters continuously lorazepam 1 mg tablet 0.5 mg PO BID PRN (Reason: anxiety) Qty: 30 0RF oxycodone 5 mg tablet 2.5 mg PO BID PRN (Reason: pain) Qty: 30 0RF Rx Instructions: Supervising MD: Dr. Burt LOVELY: [id number] License #: [id number] ProRenal 8 mg iron-800 mcg-1,000 unit tablet 1 tab PO QDL calcium acetate 667 mg Tablet 667 mg PO UD Rx Instructions: 1 cap with every meal and 1 cap with snacks hydralazine 25 mg tablet 25 mg PO TID Changed sodium zirconium cyclosilicate 10 gram powder in packet 10 g PO DAILY Qty: 30 5RF Discharge Orders: Discharge Order (Routine); Ordered 02/23/24 Ordered By: Sebas Palma/Other Patient Handouts: Low Potassium Diet Dc Admission Data Admit Date/Time: 02/21/24 12:49 Attending Provider: Sebas Britt Admit Provider: Sebas Richards Primary Care Provider: Julito Burt Other Providers: Charlee Avendaño; Sebas Richards; Ronnell Nina Other Interventions: Discharge Summary Assessment (RN) Last Done: 02/23/24 10:36 Hospital Stay Data Consultations 02/21/24 12:28 Consult Nephrology Stat ED Decision to Admit Stat 02/21/24 14:11 Consult Dialysis Biomed Technician Routine Pending Results Patient Have Any Pending Studies at Discharge: No Discharge Instructions Given to Patient (Per Discharging Provider) Mrs Patrick, You were hospitalized due to high potassium levels. Certainly having kidney disease and being on dialysis makes you more susceptible to high potassium levels in the blood. However, this time your potassium level zuri to dangerously high levels (went to 9). When potassium reaches this level it causes heart rhythm disturbances. Upon arrival to [facility] your heart rate was very low which was a direct result of the high potassium. In addition, you were requiring more oxygen than usual, likely due to fluid build-up in the lungs. The fluid built up in the lungs likely as a result of the high potassium and slow heart rate. Multiple doses of Lokelma, serial dialysis treatments, and other medicines were given to reduce the potassium level. Today your potassium level is now normal (3.8). Please be sure to follow a LOW POTASSIUM diet (see handout) and take your Lokelma EVERY DAY. In addition, please remember to take the 10 gram packet of Lokelma every day (not 5 grams). If you have frequent stools on the increased dose of Lokelma simply stop your miralax. Follow-up - report for your usual dialysis treatment on , 02/24/24, at the [facility] Return to [facility] if - * you have fever over 100 degrees * you have worsening shortness of breath * you have chest pains * you feel dizzy or lightheaded * any other concerns It was our pleasure to care for you! Coding Diagnoses Acute hyperkalemia E87.5 Acute heart failure with preserved ejection fraction I50.31 Acute respiratory failure with hypoxia and hypercarbia J96.01; J96.02 Type 2 diabetes mellitus with chronic kidney disease on chronic dialysis, with long-term current use of insulin E11.22; N18.6; Z79.4; Z99.2 Diabetes mellitus type: type 2 Diabetes mellitus jail insulin use: with terminal make up operator use Diabetes mellitus complication status: with kidney complications Diabetes mellitus complication detail: with chronic kidney disease Chronic kidney disease stage: on chronic dialysis Hypertension I10 Depression with anxiety F41.8 Obstructive sleep apnea G47.33 Chronic respiratory failure with hypoxia J96.11 Hypothyroidism, unspecified type E03.9 Hypothyroidism type: unspecified End-stage renal disease on hemodialysis N18.6; Z99.2
== END 2024-02-23 16:02 | disposition home or self-care (01) | DRG 640 ==
LOC: ED 11:57 → SUATTDRO 12:49 → 1E 12:49

== ENCOUNTER 2024-04-10 18:20 | Inpatient (IN) ==
--- NOTE | 2024-04-10 18:46 | Emergency Department Note ---
Impression & Plan Generalized weakness, Leukocytosis, Acute dyspnea, ESRD on dialysis, Non-ST elevation MO (NSTEMI), Elevated brain natriuretic peptide (BNP) level ED Provider Note HISTORY OF PRESENT ILLNESS: Patient is a 78-year-old female presenting with generalized weakness and shortness of breath. Patient is an ESRD patient and receives dialysis Wednesday//Wednesday. She wears 3 L nasal cannula at baseline. Daughter presents to bedside and reports that the patient seemed very weak today and had difficulties getting up and getting around. Reports the patient was ambulatory yesterday. No reported fevers. Patient reports feeling slightly more short of breath today. No abdominal pain, nausea or vomiting. Patient denies any chest pain. She reportedly had saturations in the 70s on her 3 L with EMS. They brought her in on 10 L nonrebreather. On arrival to the ER, the patient reports feeling very tired and rundown. She had a full dialysis session on Wednesday. Daughter reports that "she gets like this on Wednesday before she gets dialysis." ROS: as above PHYSICAL EXAM: Constitutional: Patient appears in no acute distress. HENT: Head: Normocephalic and atraumatic. Eyes: EOMI, PERRL Mouth/Throat: Mucous membranes moist. Neck: Trachea midline. Neck supple. Cardiovascular: RRR, No murmurs, rubs or gallops. Intact distal pulses. Pulmonary/Chest: No respiratory distress. Breath sounds clear and equal bilaterally. No wheezes or rales. Abdominal: Abdomen soft, no tenderness, rebound or guarding. Musculoskeletal: No edema, tenderness or deformity noted. Skin: Warm and dry. No rash, erythema, pallor or cyanosis Psychiatric: Appropriate mood and affect for situation. Neurological: Alert and keenly responsive. CN II-XII grossly intact, moving all extremities equally and fully. MDM: - Vitals signs stable. - History obtained via patient and patient's daughter. History as above. - Chronic conditions affecting care: COPD (on 3L NC); ESRD on HD; HTN; DM-2; HLD; hypothyroidism - Differential diagnoses include, but are not limited to: UTI; pneumonia; viral syndrome; electrolyte abnormality; ACS; CVA; intracranial hemorrhage - Order placed for continuous cardiac monitoring. At this time, monitor showed rate of 82 bpm with normal sinus rhythm, per my interpretation. - External medical records reviewed. Wellness visit note dated 03/22/2024 was reviewed. Patient was seen for her annual wellness exam. Her lorazepam was refilled at that appointment. - EKG interpreted by myself showed normal sinus rhythm. Rate 85 bpm. QT 354. No acute ischemic changes. - Laboratory workup interpreted by myself showed leukocytosis (WBC 21.29) with neutrophil predominance; normal PT/INR; hyperkalemia (K 5.4); ESRD (Cr 8.34); hypermagnesemia (Mg 2.6); elevated troponin (36.8); elevated BNP (575) - Lactate, blood cultures and procalcitonin added to workup - Lactate within normal limits - Patient stable on her 3L NC. - Viral respiratory panel negative. - VBG shows slight respiratory acidosis with a pH of 7.31 and pCO2 of 66 mmHg. - CXR shows slight pulmonary edema, per my interpretation. Radiology notes concern for possible infection. - UA ordered but not yet obtained - CT head wo contrast negative for acute pathology - Patient given IV vancomycin and cefepime for empiric sepsis coverage. - Discussion was had with case management manager about patient's case and need for admission - Hospitalist, Dr. Mahajan, consulted for admission - [facility] 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 Counseling regarding advanced directives and goals of care Palliative care by specialist AMS (altered mental status) (Acute) Confusion Metabolic encephalopathy Arthralgia of right foot Chronic kidney disease-mineral and bone disorder Hypertension Diabetes mellitus Anemia Coronary artery disease Hypothyroidism Vitamin D deficiency (Acute) Polyarthritis (Acute) Paresthesias (Acute) Obstructive sleep apnea (Acute) Insomnia (Acute) Dyslipidemia (Acute) Diabetic retinopathy (Acute) Depression with anxiety (Acute) Cardiomyopathy Restrictive lung disease (Acute) End-stage renal disease on hemodialysis (Acute) CHF (congestive heart failure) (Acute) Polymyalgia rheumatica Abnormal chest CT Hypertension (Acute) Weakness (Acute) Diverticulitis (Acute) Hiatal hernia with gastroesophageal reflux disease and esophagitis Early satiety Nausea & vomiting Type 2 diabetes mellitus with diabetic neuropathy (Acute) Right leg pain Leg edema, right Contusion of face Right facial numbness History of fracture of orbit (~06/20/21) Memory change Neuropathy Abnormal gait RLS (restless legs syndrome) Low back pain Seizure-like activity Elevated ferritin level Tremor Depression Anxiety Medical History Chronic respiratory failure with hypoxia Acute and chronic respiratory failure with hypoxia Acute and chronic respiratory failure with hypercapnia Weakness generalized Cellulitis of right leg Morbid obesity with BMI of 40.0-44.9, adult Diabetic eyes Hallucinations Fatigue Abnormal EKG Acute electrocardiogram changes Transaminitis Elevated troponin Myoclonus Acute hyperkalemia Hyperkalemia, diminished renal excretion Laceration of left lower extremity Hernia, hiatal GERD without esophagitis Macular puckering, bilateral Panniculitis Tubular adenoma of colon Hypertension History of thrombophlebitis Arthritis Surgical History History of tonsillectomy S/P repair of paraesophageal hernia History of nasal septoplasty History of cataract surgery History of bladder surgery S/P arteriovenous (AV) fistula creation S/P rotator cuff repair S/P hysterectomy H/O: hysterectomy Family History Mother Leukemia Cerebral aneurysm Hypertension Anxiety Diabetes Cancer Heart disease Grandmother Hypertension Father Osteoarthritis COPD (chronic obstructive pulmonary disease) Diabetes Hearing loss Sister Diabetes Myocardial infarction COPD (chronic obstructive pulmonary disease) Hypertension Brother Myocardial infarction Diabetes Cancer Stomach cancer Other No family history of bleeding disorder Denies family history of Ovarian cancer Prostate cancer Breast cancer Colorectal cancer Stroke Asthma Social History Smoking Status: Never smoker Second Hand Exposure: No; Do You Dip or Chew Tobacco: No; Hx Alcohol Use: No Hx Substance Use: No Preferred Language: [place] Verde[place] Communication Ability: Effective Visual Impairment: No Limitations Hearing Ability: Normal Picture Booker Required: No Beliefs That Will Affect Care: None marital status: Current Living Situation: Spouse Current Living Situation Comment: Lives with current occupational status: retired How many Children do You have: 1 Feels Safe at Home: Yes Childhood Exposure to Second-Hand Smoke: No Dental Care, Regularly: No Physical Activity Frequency: 1-2 Times per Week Seatbelt Use: always Sunscreen Use: No Assistive Devices: Denture - Upper, Glasses, Oxygen - Continuous, Walker, Wheelchair and Other Allergies Allergies Allergy/AdvReac Type Severity Reaction Status Date / Time lisinopril AdvReac Intermediate cough Verified 03/31/24 07:59 Home Meds Home Medications Medication Instructions Recorded Confirmed vit B complx, C-iron 8 mg-folic 1 tab PO QDL 02/27/20 03/31/24 acid 800 mcg-D3 1,000 unit-zinc tablet (ProRenal) calcium acetate 667 mg tablet 667 mg PO UD 12/17/20 03/31/24 hydralazine 25 mg tablet 25 mg PO TID 02/21/24 03/31/24 Previous Rx's Medication Instructions Recorded lancets 33 gauge (OneTouch Delica #100 ea 11/27/20 Lancets) blood sugar diagnostic (OneTouch #300 ea 07/31/22 Verio test strips) blood-glucose meter (OneTouch #1 ea 07/31/22 Verio Meter) cholecalciferol (vitamin D3) 50 50 mcg PO DAILY #90 caps 07/31/22 mcg (2,000 unit) capsule ondansetron 8 mg disintegrating 8 mg PO Q8H PRN Nausea #90 tabs 07/31/22 tablet Oxygen Home #1 ea 09/04/22 amlodipine 10 mg tablet 10 mg PO DAILY #90 tabs 07/28/23 carvedilol 12.5 mg tablet (Coreg) 12.5 mg PO BID #180 tabs 08/03/23 lactulose 10 gram/15 mL oral 15 ml PO DAILY PRN Constipation 08/13/23 solution #1,350 mL buspirone 5 mg tablet 5 mg PO BID #180 tabs 09/16/23 pantoprazole 40 mg tablet,delayed 40 mg PO BID 90 days #180 tabs 09/16/23 release venlafaxine 75 mg capsule,extended 75 mg PO DAILY #90 caps 09/16/23 release 24 hr oxycodone 5 mg tablet 2.5 mg (1/2 x 5 mg) PO BID PRN 01/21/24 pain #30 tabs olanzapine 10 mg tablet See Rx Instructions PO BID #90 tabs 01/24/24 levothyroxine 100 mcg tablet 100 mcg PO QPM #90 tabs 02/22/24 sodium zirconium cyclosilicate 10 10 g PO DAILY #30 ea 02/23/24 gram oral powder packet lorazepam 1 mg tablet 0.5 mg (1/2 x 1 mg) PO BID PRN 03/22/24 anxiety #30 tabs gabapentin 300 mg capsule 300 mg PO 3XWK #36 caps 04/06/24 Results & Data (ED) Vital Signs Vital Signs - 24 hr 04/10/24 18:12 04/10/24 18:41 04/10/24 19:12 Temperature 36.9 C Temperature Source Temporal Artery Scan Pulse Rate 84 85 Pulse Rate [Apical] Respiratory Rate 20 Respiratory Effort / Characteristics Non-Labored Spontaneous Respiratory Depth Normal Respiratory Pattern Blood Pressure 138/79 Blood Pressure [Left Arm] Blood Pressure Mean 98 Blood Pressure Mean [Left Arm] Pulse Oximetry 100 99 Oxygen Delivery Method Nasal Cannula Room Air Oxygen Flow Rate 4 4 Sepsis Recent Fever Within 48 Hours No Sepsis New/Unexplained Change in Mental Status No Sepsis Action Taken by Nursing No Action Required 04/10/24 19:12 04/10/24 20:00 04/10/24 21:13 Temperature Temperature Source Pulse Rate Pulse Rate [Apical] 84 82 Respiratory Rate 20 20 Respiratory Effort / Characteristics Non-Labored Spontaneous Non-Labored Spontaneous Respiratory Depth Normal Normal Respiratory Pattern Regular Regular Blood Pressure Blood Pressure [Left Arm] 160/79 H 157/70 H Blood Pressure Mean Blood Pressure Mean [Left Arm] 106 99 Pulse Oximetry 99 98 98 Oxygen Delivery Method Nasal Cannula Room Air Room Air Oxygen Flow Rate 4 Sepsis Recent Fever Within 48 Hours Sepsis New/Unexplained Change in Mental Status Sepsis Action Taken by Nursing Laboratory Data 04/10/24 19:53 04/10/24 19:53 Lab Results 04/10/24 04/10/24 04/10/24 Range/Units 19:30 19:53 21:35 WBC 21.29 H (4.8-10.8) K/ul RBC 3.97 L (4.20-5.40) M/uL Hgb 12.5 (12.0-16.0) g/dl Hct 40.1 (37.0-47.0) % MCV 101.0 H (80.0-100.0) fL MCH 31.5 (25.0-34.0) pg MCHC 31.2 L (32.0-36.0) g/dL RDW Std Deviation 51.9 H (36.4-46.3) fL RDW Coeff of Jared 14.0 (11.5-14.5) % Plt Count 150 (130-400) K/uL MPV 9.9 (9.4-12.4) fL Immature Gran % (Auto) 0.7 % Neut % (Auto) 89.0 % Lymph % (Auto) 4.1 % [place] % (Auto) 5.4 % Eos % (Auto) 0.5 % Baso % (Auto) 0.3 % Neut # (Auto) 18.97 H (1.40-6.50) K/uL Lymph # (Auto) 0.87 L (1.20-3.40) K/uL [place] # (Auto) 1.15 H (0.11-0.59) K/uL Eos # (Auto) 0.10 (0.00-0.50) K/uL Baso # (Auto) 0.06 (0.00-0.20) K/uL Immature Gran # (Auto) 0.14 (0.01-0.20) K/uL PT 10.6 (9.0-12.0) Seconds INR 1.0 (0.9-1.1) VBG pH 7.31 L (7.36-7.41) VBG pCO2 66 H (38-50) mmHg VBG pO2 31 mmHg VBG HCO3 33 mmol/L VBG O2 Saturation < 60.0 % VBG Base Excess 4.8 mEq/L Sodium 134 L (136-145) mmol/L Potassium 5.4 H (3.5-5.1) mmol/L Chloride 90 L (98-107) mmol/L Carbon Dioxide 31 (21-32) mmol/L Anion Gap 13 H (3-11) BUN 69 H (6-23) mg/dl Creatinine 8.34 H* (0.6-1.2) mg/dl Est Cr Clr Drug Dosing 5.8 ml/min eGFR 4.52 BUN/Creatinine Ratio 8.3 L (10-20) Glucose 187 H (70-99(Fasting)) mg/dl Lactate 1.8 (0.4-2.0) mmol/L Calcium 9.6 (8.6-10.3) mg/dl Magnesium 2.6 H (1.7-2.4) mg/dl Total Bilirubin 0.4 (0.2-1.0) mg/dl AST 27 (13-39) U/L ALT 14 (7-52) U/L Alkaline Phosphatase 110 H (34-104) U/L Troponin I High Sens 36.8 H (0-14) pg/ml B-Natriuretic Peptide 575 H (0-100) pg/ml Total Protein 8.3 (6.0-8.3) gm/dl Albumin 4.1 (3.4-5.0) gm/dl Globulin 4.2 H (2.5-4.0) gm/dl Albumin/Globulin Ratio 1.0 (0.9-2) Adenovirus (PCR) Not Detected (NotDetected) B. pertussis DNA (PCR) Not Detected (NotDetected) B.parapertussis DNA PCR Not Detected (NotDetected) C. pneumoniae DNA (PCR) Not Detected (NotDetected) Coronavirus OC43 (PCR) Not Detected (NotDetected) Coronavirus HKU1 (PCR) Not Detected (NotDetected) Coronavirus 229E (PCR) Not Detected (NotDetected) SARS-CoV-2 (PCR) Not Detected (NotDetected) Coronavirus NL63 (PCR) Not Detected (NotDetected) Human Metapneumovir PCR Not Detected (NotDetected) Influenza Type A (PCR) Not Detected (NotDetected) Influenza Type B (PCR) Not Detected (NotDetected) M. pneumoniae (PCR) Not Detected (NotDetected) Parainfluenza 1 (PCR) Not Detected (NotDetected) Parainfluenza 2 (PCR) Not Detected (NotDetected) Parainfluenza 3 (PCR) Not Detected (NotDetected) Parainfluenza 4 (PCR) Not Detected (NotDetected) RSV (PCR) Not Detected (NotDetected) Entero/Rhino (PCR) Not Detected (NotDetected) Administered Medications Discontinued Medications Cefepime HCl (Maxipime 2000mg) 2,000 mg in 20 mls @ 5 mls/min IV NOW STA; Protocol Stop: 04/10/24 21:11 Last Admin: 04/10/24 21:39 Dose: 5 mls/min Documented By: KATHY Imaging Data Radiologist's Impression: Chest X-Ray 04/10/24 18:29 EXAM: XR chest 1V portable CLINICAL HISTORY: DYSPNEA KIS/PGM TECHNIQUE: X-ray chest was performed in 1 view: AP portable projection. COMPARISON: 01/09/2024, 08/17/2023 FINDINGS: Prominent bilateral ruben with increased bronchovascular marking and possible cephalization. Moderate cardiomegaly. Previously noted opacity in the left lower zone shows interval resolution, Normal bilateral costophrenic angles. Degenerative changes involving the bones. No evidence of pneumothorax. IMPRESSION: 1. The above-mentioned finding could represent early pulmonary edema/congestive changes however possibility of infection cannot be entirely excluded. 2. Previously noted opacity in the left lower zone shows interval resolution, 3. Advise clinical correlation and follow-up. Electronically signed by Zachery Watts 04-10-2024 8:[address] 04/10/24 18:43 Exam(s): CT HEAD Without Contrast EXAM: CT Head Without Intravenous Contrast CLINICAL HISTORY: Reason for exam: weakness. TECHNIQUE: Axial computed tomography images of the head/brain without intravenous contrast. CTDI is 36 mGy and DLP is 624 mGy-cm. Automated exposure control was utilized for the study. A dose lowering technique was utilized adhering to the principles of ALARA. COMPARISON: No relevant prior studies available. FINDINGS: Brain: No intracranial hemorrhage, mass-effect, or cerebral edema. Global parenchymal atrophy. Periventricular and subcortical low attenuation which is nonspecific but favored to represent chronic microvascular ischemic changes. Ventricles: Unremarkable. Bones/joints: Unremarkable. No fracture. Soft tissues: Unremarkable. Sinuses: No acute sinusitis. Mastoid air cells: Unremarkable as visualized. IMPRESSION: 1. No acute intracranial abnormality. Electronically signed by: Guzman Foley MD 04/10/24 19:46 PM Discharge Plan Visit Data Chief Complaint: Shortness of Breath/Dyspnea ED Provider: Yeni Murcia Discharge Problem: Generalized weakness, Leukocytosis, Acute dyspnea, ESRD on dialysis, Non-ST elevation MO (NSTEMI), Elevated brain natriuretic peptide (BNP) level Forms Stand Alone Forms: My [facility] [employer] Prescriptions Prescriptions: No Action (DME) lancets [OneTouch Delica Lancets] [place] [facility] [place] Rx Instructions .ROUTE .MEDSUPPLY Qty: 100 3RF Rx Instructions: use to test twice daily (DME) OneTouch Verio test strips Strip See Rx Instructions .ROUTE .MEDSUPPLY Qty: 300 3RF Rx Instructions: test twice daily E11.9 (DME) blood-glucose meter [OneTouch Verio Meter] [facility] [place] See Rx Instructions .ROUTE .MEDSUPPLY Qty: 1 0RF Rx Instructions: As directed E11.9 cholecalciferol (vitamin D3) 50 mcg (2,000 unit) capsule 50 mcg PO DAILY Qty: 90 3RF ondansetron 8 mg tablet,disintegrating 8 mg PO Q8H PRN (Reason: Nausea) Qty: 90 5RF amlodipine 10 mg tablet 10 mg PO DAILY Qty: 90 3RF carvedilol [Coreg] 12.5 mg tablet 12.5 mg PO BID Qty: 180 3RF lactulose 10 gram/15 mL solution 15 ml PO DAILY PRN (Reason: Constipation) Qty: 1350 3RF buspirone 5 mg tablet 5 mg PO BID Qty: 180 3RF pantoprazole 40 mg tablet,delayed release (DR/EC) 40 mg PO BID 90 Days Qty: 180 3RF venlafaxine 75 mg capsule,extended release 24hr 75 mg PO DAILY Qty: 90 3RF olanzapine 10 mg tablet See Rx Instructions PO BID Qty: 90 3RF Rx Instructions: 1/2 tab orally twice a day levothyroxine 100 mcg tablet 100 mcg PO QPM Qty: 90 3RF gabapentin 300 mg capsule 300 mg PO 3XWK Qty: 36 1RF Rx Instructions: Wednesday, , wednesday after dialysis (DME) Oxygen Home Liters Per Minute See Rx Instructions .ROUTE .MEDSUPPLY Qty: 1 0RF Rx Instructions: 3 liters continuously oxycodone 5 mg tablet 2.5 mg PO BID PRN (Reason: pain) Qty: 30 0RF Rx Instructions: Supervising MDAlton Burt LOVELY: [id number] License #: [id number] lorazepam 1 mg tablet 0.5 mg PO BID PRN (Reason: anxiety) Qty: 30 0RF ProRenal 8 mg iron-800 mcg-1,000 unit tablet 1 tab PO QDL calcium acetate 667 mg Tablet 667 mg PO UD Rx Instructions: 1 cap with every meal and 1 cap with snacks hydralazine 25 mg tablet 25 mg PO TID sodium zirconium cyclosilicate 10 gram powder in packet 10 g PO DAILY Qty: 30 5RF Referrals Referrals: Julito Burt MD [Primary Care Provider] -
--- NOTE | 2024-04-10 19:47 | CT Scan Report ---
Exam(s): CT HEAD Without Contrast EXAM: CT Head Without Intravenous Contrast CLINICAL HISTORY: Reason for exam: weakness. TECHNIQUE: Axial computed tomography images of the head/brain without intravenous contrast. CTDI is 36 mGy and DLP is 624 mGy-cm. Automated exposure control was utilized for the study. A dose lowering technique was utilized adhering to the principles of ALARA. COMPARISON: No relevant prior studies available. FINDINGS: Brain: No intracranial hemorrhage, mass-effect, or cerebral edema. Global parenchymal atrophy. Periventricular and subcortical low attenuation which is nonspecific but favored to represent chronic microvascular ischemic changes. Ventricles: Unremarkable. Bones/joints: Unremarkable. No fracture. Soft tissues: Unremarkable. Sinuses: No acute sinusitis. Mastoid air cells: Unremarkable as visualized. IMPRESSION: 1. No acute intracranial abnormality. Electronically signed by: Guzman Foley MD 04/10/24 19:46 PM
[2024-04-10 20:00] LABS: Base Excess VBG 4.8 mEq/L; HCO3 VBG 33 mmol/L; Oxygen Saturation VBG < 60.0 %; PCO2 VBG 66 mmHg (38-50); PO2 VBG 31 mmHg; pH VBG 7.31 (7.36-7.41)
[2024-04-10 20:28] LABS: Adenovirus PCR Not Detected (NotDetected); Bordetella parapertussis PCR Not Detected (NotDetected); Bordetella pertussis PCR Not Detected (NotDetected); Chlamydia pneumoniae PCR Not Detected (NotDetected); Coronavirus 229E PCR Not Detected (NotDetected); Coronavirus CoV-2 (COVID19)PCR Not Detected (NotDetected); Coronavirus HKU1 PCR Not Detected (NotDetected); Coronavirus NL63 PCR Not Detected (NotDetected); Coronavirus OC43PCR Not Detected (NotDetected); Human Metapneumovirus PCR Not Detected (NotDetected); Influenza A PCR Not Detected (NotDetected); Influenza B PCR Not Detected (NotDetected); Mycoplasma pneumoniae PCR Not Detected (NotDetected); Parainfluenza Virus 1 PCR Not Detected (NotDetected); Parainfluenza Virus 2 PCR Not Detected (NotDetected); Parainfluenza Virus 3 PCR Not Detected (NotDetected); Parainfluenza Virus 4 PCR Not Detected (NotDetected); Respiratory Syncytial VirusPCR Not Detected (NotDetected); Rhinovirus/Enterovirus PCR Not Detected (NotDetected)
[2024-04-10 20:31] LABS: Troponin I High Sensitivity 36.8 pg/ml (0-14)
[2024-04-10 20:34] LABS: Albumin Level 4.1 gm/dl (3.4-5.0); BUN Creatinine Ratio 8.3 (10-20); Bilirubin,Total 0.4 mg/dl (0.2-1.0); Calcium 9.6 mg/dl (8.6-10.3); Creatinine Clr Calc Pharmacy 5.8 ml/min; Globulin 4.2 gm/dl (2.5-4.0); Magnesium 2.6 mg/dl (1.7-2.4); Potassium 5.4 mmol/L (3.5-5.1); Total Protein 8.3 gm/dl (6.0-8.3)
--- NOTE | 2024-04-10 20:35 | XRay Report ---
EXAM: XR chest 1V portable CLINICAL HISTORY: DYSPNEA KIS/PGM TECHNIQUE: X-ray chest was performed in 1 view: AP portable projection. COMPARISON: 01/09/2024, 08/17/2023 FINDINGS: Prominent bilateral ruben with increased bronchovascular marking and possible cephalization. Moderate cardiomegaly. Previously noted opacity in the left lower zone shows interval resolution, Normal bilateral costophrenic angles. Degenerative changes involving the bones. No evidence of pneumothorax. IMPRESSION: 1. The above-mentioned finding could represent early pulmonary edema/congestive changes however possibility of infection cannot be entirely excluded. 2. Previously noted opacity in the left lower zone shows interval resolution, 3. Advise clinical correlation and follow-up. Electronically signed by Zachery Watts 04-10-2024 8:35 PM
[2024-04-10 20:46] LABS: Prothrombin Time 10.6 Seconds (9.0-12.0)
[2024-04-10 20:52] LABS: Basophils # (auto) 0.06 K/uL (0.00-0.20); Basophils % (auto) 0.3 %; Eosinophils % (auto) 0.5 %; Hematocrit (blood only) 40.1 % (37.0-47.0); Hemoglobin 12.5 g/dl (12.0-16.0); Immature Granulocytes # (auto) 0.14 K/uL (0.01-0.20); Immature Granulocytes % (auto) 0.7 %; Lymphocytes # (auto) 0.87 K/uL (1.20-3.40); Lymphocytes % (auto) 4.1 %; Mean Corpuscular Hemoglobin 31.5 pg (25.0-34.0); Mean Corpuscular Hgb Conc 31.2 g/dL (32.0-36.0); Mean Platelet Volume 9.9 fL (9.4-12.4); Monocytes # (auto) 1.15 K/uL (0.11-0.59); Monocytes % (auto) 5.4 %; Neutrophils # (auto) 18.97 K/uL (1.40-6.50); Platelet Count 150 K/uL (130-400); RDW Standard Deviation 51.9 fL (36.4-46.3); Red Blood Count 3.97 M/uL (4.20-5.40); White Blood Count 21.29 K/ul (4.8-10.8)
[2024-04-10] MEDS ORDERED: VANCOMYCIN CONSULT ACTIVE PRN (21:08)
--- NOTE | 2024-04-10 21:38 | History & Physical Report ---
Date of Service April 10, 2024 Assessment & Plan (1) PNA (pneumonia): Plan: Acute hypoxic respiratory failure Multifactorial with underlying HDESRD, CHF, and possible pneumonia each treated as noted below Baseline home oxygen of 2-3 L ESRD, dialysis dependent Wednesday//Wednesday Patient presents with fatigue, volume overload without pulmonary edema, and mild hyperkalemia IV calcium gluconate, insulin/dextrose, Lokelma, sodium bicarb given for hyperkalemia Nephrology consulted. Anticipate dialysis tomorrow Patient is on 3 L comfortably in the room greater than 90%. Will treat mild hyperkalemia as noted, no indication for emergent dialysis BMP trended every 6 hours ?PNA Hypoxic prehospital, does have a leukocytosis with neutrophilic predominance and suggestion of possible pneumonia on x-ray Bio[employer] negative Mild elevation BNP and possible early congestive change however patient is not floridly volume overloaded on x-ray Covered with cefepime on admission. No history of MRSA, vancomycin held She is not tachycardic, hypotensive, and is now with a normal respiratory rate on her usual oxygen requirements Abdominal pain Patient moaning and endorses worsened abdominal pain which is not normal for her. Tender to palpation supraumbilically without rebound or involuntary guarding, but patient with significant pain on light palpation on admission CTA/P ordered for further evaluation. UA also pending patient makes minimal amounts of urine Continue empiric cefepime UA pending Type II DM Last A1c well-controlled Continue SSI, goal BSG [id number] Hypertension Continue amlodipine, Coreg, hydralazine TASH/restrictive lung disease/sleep disordered breathing BiPAP at bedtime Due to acute respiratory acidosis patient is placed on BiPAP continuous with VBG every 4 hours until improved DVT prophylaxis: Heparin Disposition: PCU CODE STATUS: DNR/DNI Signed out to overnight provider to monitor for CT results and BMP trend. (2) End-stage renal disease on hemodialysis: (3) CHF (congestive heart failure): (4) Restrictive lung disease: (5) Cardiomyopathy: History of Present Illness Primary Care Provider: Julito Burt MD Mrs. Patrick is a 78-year-old female with a past medical history of CAD, hypothyroidism, DM 2, hypertension, CHF, depression/anxiety, type II DM, ESRD on dialysis presents with weakness, shortness of breath, hyperkalemia who presents feeling fatigued tired more rundown than normal and with reported prehospital hypoxia. Seen with family at the bedside. Has had generalized weakness and fatigue over the last day. Much worse today than yesterday. Some shortness of breath but is currently on her baseline 3 L of oxygen and comfortable laying in bed. Patient reports she feels much more tired and washed out than typical even though she is normally tired before her dialysis sessions on Wednesday and feels her worst on Wednesday. Does have some chills and some abdominal pain which is new and unusual for her. She makes very little to no urine and has had UTIs in the past with no warning symptoms. Denies chest pain, chest pressure, shortness of breath at time of bedside evaluation and difficulty breathing. Denies nausea/vomiting. She has had an okay appetite. Has had muscle twitches which tend to happen prior to her dialysis sessions, BUN is 69. No tobacco/alcohol use Denies antibiotic allergies CODE STATUS: DNR/DNI Allergies Allergy/AdvReac Type Severity Reaction Status Date / Time lisinopril AdvReac Intermediate cough Verified 03/31/24 07:59 Home Medications Medication Instructions Recorded Confirmed Type vit B complx, C-iron 8 mg-folic 1 tab PO QDL 02/27/20 03/31/24 History acid 800 mcg-D3 1,000 unit-zinc tablet (ProRenal) lancets 33 gauge ([employer] #100 ea 11/27/20 03/31/24 Rx Lancets) calcium acetate 667 mg tablet 667 mg PO UD 12/17/20 03/31/24 History blood sugar diagnostic (Pending sale to [facility] #300 ea 07/31/22 03/31/24 Rx Verio test strips) [facility] 07/31/22 03/31/24 Rx Verio Meter) cholecalciferol (vitamin D3) 50 50 mcg PO DAILY #90 caps 07/31/22 03/31/24 Rx mcg (2,000 unit) capsule ondansetron 8 mg disintegrating 8 mg PO Q8H PRN Nausea #90 tabs 07/31/22 03/31/24 Rx tablet Oxygen Home #1 ea 09/04/22 03/31/24 Rx amlodipine 10 mg tablet 10 mg PO DAILY #90 tabs 07/28/23 03/31/24 Rx carvedilol 12.5 mg tablet (Coreg) 12.5 mg PO BID #180 tabs 08/03/23 03/31/24 Rx lactulose 10 gram/15 mL oral 15 ml PO DAILY PRN Constipation 08/13/23 03/31/24 Rx solution #1,350 mL buspirone 5 mg tablet 5 mg PO BID #180 tabs 09/16/23 03/31/24 Rx pantoprazole 40 mg tablet,delayed 40 mg PO BID 90 days #180 tabs 09/16/23 03/31/24 Rx release venlafaxine 75 mg capsule,extended 75 mg PO DAILY #90 caps 09/16/23 03/31/24 Rx release 24 hr oxycodone 5 mg tablet 2.5 mg (1/2 x 5 mg) PO BID PRN 01/21/24 03/31/24 Rx pain #30 tabs olanzapine 10 mg tablet See Rx Instructions PO BID #90 tabs 01/24/24 03/31/24 Rx hydralazine 25 mg tablet 25 mg PO TID 02/21/24 03/31/24 History levothyroxine 100 mcg tablet 100 mcg PO QPM #90 tabs 02/22/24 03/31/24 Rx sodium zirconium cyclosilicate 10 10 g PO DAILY #30 ea 02/23/24 03/31/24 Rx gram oral powder packet lorazepam 1 mg tablet 0.5 mg (1/2 x 1 mg) PO BID PRN 03/22/24 03/31/24 Rx anxiety #30 tabs gabapentin 300 mg capsule 300 mg PO 3XWK #36 caps 04/06/24 Rx Past Med/Surg History Problem List (Updated 04/10/24 @ 21:37 by Omar Mahajan MD) PNA (pneumonia) Stage I pressure ulcer of buttock (Acute) Acute heart failure with preserved ejection fraction Acute respiratory failure with hypoxia and hypercarbia Acute hyperkalemia (Acute) Elevated troponin (Acute) Metabolic acidosis (Acute) Leukocytosis (Acute) AMS (altered mental status) (Acute) Earache on left Sore throat COPD, 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 Counseling regarding advanced directives and goals of care Palliative care by specialist AMS (altered mental status) (Acute) Confusion Metabolic encephalopathy Arthralgia of right foot Chronic kidney disease-mineral and bone disorder Hypertension Diabetes mellitus Anemia Coronary artery disease Hypothyroidism Vitamin D deficiency (Acute) Polyarthritis (Acute) Paresthesias (Acute) Obstructive sleep apnea (Acute) Insomnia (Acute) Dyslipidemia (Acute) Diabetic retinopathy (Acute) Depression with anxiety (Acute) Cardiomyopathy Restrictive lung disease (Acute) End-stage renal disease on hemodialysis (Acute) CHF (congestive heart failure) (Acute) Polymyalgia rheumatica Abnormal chest CT Hypertension (Acute) Weakness (Acute) Diverticulitis (Acute) Hiatal hernia with gastroesophageal reflux disease and esophagitis Early satiety Nausea & vomiting Type 2 diabetes mellitus with diabetic neuropathy (Acute) Right leg pain Leg edema, right Contusion of face Right facial numbness History of fracture of orbit (~06/20/21) Memory change Neuropathy Abnormal gait RLS (restless legs syndrome) Low back pain Seizure-like activity Elevated ferritin level Tremor Depression Anxiety Medical History Chronic respiratory failure with hypoxia Acute and chronic respiratory failure with hypoxia Acute and chronic respiratory failure with hypercapnia Weakness generalized Cellulitis of right leg Morbid obesity with BMI of 40.0-44.9, adult Diabetic eyes Hallucinations Fatigue Abnormal EKG Acute electrocardiogram changes Transaminitis Elevated troponin Myoclonus Acute hyperkalemia Hyperkalemia, diminished renal excretion Laceration of left lower extremity Hernia, hiatal GERD without esophagitis Macular puckering, bilateral Panniculitis Tubular adenoma of colon Hypertension History of thrombophlebitis Arthritis Surgical History History of tonsillectomy S/P repair of paraesophageal hernia History of nasal septoplasty History of cataract surgery History of bladder surgery S/P arteriovenous (AV) fistula creation S/P rotator cuff repair S/P hysterectomy H/O: hysterectomy Family History Mother Leukemia Cerebral aneurysm Hypertension Anxiety Diabetes Cancer Heart disease Grandmother Hypertension Father Osteoarthritis COPD (chronic obstructive pulmonary disease) Diabetes Hearing loss Sister Diabetes Myocardial infarction COPD (chronic obstructive pulmonary disease) Hypertension Brother Myocardial infarction Diabetes Cancer Stomach cancer Other No family history of bleeding disorder Denies family history of Ovarian cancer Prostate cancer Breast cancer Colorectal cancer Stroke Asthma Social History Smoking Status: Never smoker Second Hand Exposure: No; Do You Dip or Chew Tobacco: No; Hx Alcohol Use: No Hx Substance Use: No Preferred Language: [place] Islander Communication Ability: Effective Visual Impairment: No Limitations Hearing Ability: Normal Presetter Operator Required: No Beliefs That Will Affect Care: None marital status: Current Living Situation: Spouse Current Living Situation Comment: Lives with current occupational status: retired How many Children do You have: 1 Feels Safe at Home: Yes Childhood Exposure to Second-Hand Smoke: No Dental Care, Regularly: No Physical Activity Frequency: 1-2 Times per Week Seatbelt Use: always Sunscreen Use: No Assistive Devices: Denture - Upper, Glasses, Oxygen - Continuous, Walker, Wheelchair and Other Physical Exam Physical Exam: General: Somnolent, awakens and answer some questions before falling back asleep. Oriented to name and place. Cooperative HEENT: Atraumatic, normocephalic. Vision and hearing grossly intact Pulm: Diminished in the bases with some basilar crackles but otherwise clear symmetrical chest rise. No increased work of breathing. No respiratory distress. Cardiac: RRR, -mrg. Radial pulses intact and symmetrical. Abdominal: Tender to palpation at the umbilicus and slightly to the left lower quadrant. No rebound/involuntary guarding. Extremities: Moves upper and lower extremities equally. Lower extremities with pitting ankle edema. Right arm with AV fistula in place with good thrill. Results & Data Results & Data Vital Signs (Past 12 Hours) Vital Signs Temp Pulse Pulse Resp BP BP Pulse Ox 04/10/24 21:13 82 20 157/70 H 98 04/10/24 20:00 84 20 160/79 H 98 04/10/24 19:12 99 04/10/24 19:12 99 04/10/24 18:41 85 04/10/24 18:12 36.9 C 84 20 138/79 100 O2 Del Method O2 Flow Rate 04/10/24 21:13 Room Air 04/10/24 20:00 Room Air 04/10/24 19:12 Nasal Cannula 4 04/10/24 19:12 Room Air 4 04/10/24 18:41 04/10/24 18:12 Nasal Cannula 4 PG Care Time/CCT Total # of Minutes Spent Total Time Spent with Patient: Total time spent is greater than 50% in coordination of care (as documented) at patient's floor/unit and/or counseling patient: Coding Level of Care Code 79180 INT INP/OBS CARE MIN Diagnoses PNA (pneumonia) J18.9 End-stage renal disease on hemodialysis N18.6; Z99.2 Acute systolic congestive heart failure I50.9 Heart failure chronicity: unspecified Heart failure type: unspecified Restrictive lung disease J98.4 Cardiomyopathy I42.9 (3) CHF (congestive heart failure) Heart failure chronicity: unspecified Heart failure type: unspecified Qualified Code(s): I50.9 - Heart failure, unspecified
[2024-04-10] MEDS: CEFEPIME 2000MG 2,000 MG/20 ML SYR IV STA (21:39)
[2024-04-10] MEDS ORDERED: GLUCOSE 10 TAB/TUBE PO PRN (21:53)
[2024-04-10] MEDS ORDERED: CARBOHYDRATES FOR HYPOGLYCEMIA PO PRN (21:53)
[2024-04-10] MEDS ORDERED: PHARMACY GLYCEMIC MGMT CONSULT PRN (21:53)
[2024-04-10] MEDS ORDERED: GLUCAGON FOR INJ 1 MG VIAL SQ PRN (21:53)
[2024-04-10] MEDS ORDERED: DEXTROSE 50% 50 ML SYRINGE IV PRN (21:53)
[2024-04-10] MEDS ORDERED: GLUCOSE 40% GEL 15 GM TUBE PO PRN (21:53)
[2024-04-10] MEDS: CALCIUM GLUCONATE 1,000 MG/60 ML BAG IV STA (22:34)
[2024-04-10] MEDS: INSULIN HUMAN REGULAR PER UNIT 10 UNITS in SYRINGE 9.9 ML IV STA (22:34)
[2024-04-10] MEDS: DEXTROSE 50% 50 ML SYRINGE IV STA (22:34)
[2024-04-10 23:09] LABS: Base Excess VBG -10.2 mEq/L; HCO3 VBG 18 mmol/L; Oxygen Saturation VBG 63.4 %; PCO2 VBG 45 mmHg (38-50); PO2 VBG 40 mmHg
[2024-04-10] MEDS: VANCOMYCIN HCL 2,000 MG in DEXTROSE 5% 500 ML IV ONE (23:28)
[2024-04-11 01:36] LABS: Base Excess VBG 4.8 mEq/L; HCO3 VBG 34 mmol/L; Oxygen Saturation VBG < 60.0 %; PCO2 VBG 70 mmHg (38-50); PO2 VBG 32 mmHg; pH VBG 7.29 (7.36-7.41)
--- NOTE | 2024-04-11 01:44 | CT Scan Report ---
Exam(s): CT ABDOMEN + PELVIS Without Contrast EXAM: CT Abdomen and Pelvis Without Intravenous Contrast CLINICAL HISTORY: Reason for exam: abdominal pain. TECHNIQUE: Axial computed tomography images of the abdomen and pelvis without intravenous contrast. Automated exposure control was utilized for the study. A dose lowering technique was utilized adhering to the principles of ALARA. COMPARISON: No relevant prior studies available. FINDINGS: Lung bases: Unremarkable. No mass. No consolidation. ABDOMEN: Liver: Unremarkable. Gallbladder and bile ducts: Unremarkable. No calcified stones. No ductal dilation. Pancreas: Unremarkable. No ductal dilation. Spleen: Unremarkable. No splenomegaly. Adrenals: Unremarkable. No mass. Kidneys and ureters: Unremarkable. No obstructing stones. No hydronephrosis. Stomach and bowel: Diverticulosis without of diverticulitis. No obstruction. PELVIS: Appendix: No findings to suggest acute appendicitis. Bladder: Unremarkable. No stones. Reproductive: Unremarkable as visualized. ABDOMEN and PELVIS: Intraperitoneal space: Unremarkable. No free air. No significant fluid collection. Bones/joints: No acute fracture. No dislocation. Soft tissues: Postoperative changes midline anterior abdominal wall. Vasculature: Unremarkable. No abdominal aortic aneurysm. Lymph nodes: Unremarkable. No enlarged lymph nodes. IMPRESSION: No acute findings in the abdomen or pelvis. Electronically signed by: Carlos Paz MD 04/11/24 01:43 AM
[2024-04-11 02:03] LABS: Calcium 9.7 mg/dl (8.6-10.3); Creatinine Clr Calc Pharmacy 5.1 ml/min; Potassium 4.7 mmol/L (3.5-5.1)
[2024-04-11] MEDS: SODIUM ZIRCONIUM CYCLOSILICATE 10 GM PACKET PO STA (02:15)
[2024-04-11] MEDS: INSULIN ASPART PER UNIT CHARGE SC STA (02:37)
[2024-04-11] MEDS: INSULIN ASPART PER UNIT CHARGE SC ONE (06:17)
--- OUTSIDE RECORDS SUMMARY | 2024-04-11 06:48 | External Medical Summary | Summary of Care ---
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 [facility] What condition is the patient being seen for? Other - please type comment in box Comments End stage renal disease, dependence on renal dialysis Encounter Details Date Type Department Care Team (Late st Contact Info) Description 04/10/2024 Orders Only [facility] [address] [place] [address] Ext *DO NOT REMOVE THIS DEPARTMENT* [place] [id number] Request, External Referral End stage renal disease (HCC)*; 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) Allergies Active Allergy Reactions Criticality Noted Date Comments Lisinopril Cough Low 10/18/2015 documented as of this encounter (statuses as of 04/10/2024) Medications Magnesium 400 MG Capsule Take 1 Capsule [...] AND WEDNESDAY AFTER DIALYSIS 48 Capsule 1 12/22/2022 10:57 AM EDT 3 Active Bumetanide 2 MG Oral Tablet TAKE TWO TABLETS BY MOUTH TWICE A DAY 360 Tablet 3 05/02/2023 1:17 PM EST 3 Active CPAP Uses oxygen with CPAP 3 Active oxygen IN GAS Use 3 L/min(Oxygen) as directed continuous. Active Carvedilol 12.5 MG Oral Tablet (Coreg) Take 1 tablet (12.5mg) by mouth twice a day 180 Tablet 3 04/05/2024 11:33 AM EST 4 Active amLODIPine Besylate 10 MG Oral Tablet (Norvasc) Take 1 tablet by mouth daily 90 Tablet 3 01/21/2024 1:15 PM EDT 4 Active busPIRone HCl 5 MG Oral Tablet (Buspar) Take 1 tablet by mouth twice daily 180 Tablet 3 03/14/2024 10:17 AM EDT 4 Active Venlafaxine HCl ER 75 MG Oral Capsule Extended Release 24 Hour (Effexor XR) Take 1 capsule by mouth daily 90 Capsule 3 01/13/2024 12:49 PM EDT 4 Active Pantoprazole Sodium 40 MG Oral Tablet Delayed Release (Protonix) take 1 tablet by mouth twice daily 180 Tablet 3 01/12/2024 7:28 AM EDT 4 Active Cholecalciferol 50 MCG (2000 UT) Oral Tablet Take 1 Tablet by mouth in the morning. 3 Active LORazepam 1 MG Oral Tablet (Ativan) take one-half tablet by mouth twice a day As Needed for anxiety 30 Tablet 10/19/2023 6:26 PM EDT 4 Active oxyCODONE HCl 5 MG Oral Tablet (Oxy IR) take one-half tablet by mouth twice a day As Needed for pain 30 Tablet 10/19/2023 6:26 PM EDT 4 Active Ipratropium-Albute rol 0.5-2.5 (3) MG/3ML Inhalation Solution (Duoneb) Inhale 3 mL by mouth every 6 hours as needed. Active OLANZapine 10 MG Oral Tablet (zyPREXA) Take 1/2 tablet by mouth twice daily 30 Tablet 2 01/25/2024 7:56 AM EDT 4 Active oxyCODONE HCl 5 MG Oral Tablet (Oxy IR) Take one-half tablet by mouth twice daily as needed for pain 30 Tablet 01/24/2024 11:09 AM EDT 4 Active Lactulose 10 GM/15ML Oral Solution (Constulose) Take 15 mL by mouth daily as needed for Constipation. 1419 mL 3 01/26/2024 9:39 AM EDT 4 Active OLANZapine 10 MG Oral Tablet (zyPREXA) take 1/2 tablet by mouth twice daily 90 Tablet 3 02/16/2024 1:51 PM EDT 4 Active Levothyroxine Sodium 100 MCG Oral Tablet (Levoxyl) Take 1 tablet by mouth daily in the evening 90 Tablet 3 02/22/2024 5:55 PM EDT 4 Active hydrALAZINE HCl 25 MG Oral Tablet (Apresoline) Take 1 Tablet by mouth 3 times a day. 270 Tablet 3 02/29/2024 9:33 AM EDT 4 Active amLODIPine Besylate 5 MG Oral Tablet (Norvasc) Take one tablet by mouth daily 90 Tablet 1 03/24/2024 10:10 AM EDT 4 Active Sodium Zirconium Cyclosilicate 10 GM Oral Packet (Lokelma) Take 1 Packet by mouth in the morning. 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 11/01/2023 Assessment & Plan (11/01/2023 2:18 PM EDT): Diet controlled Most recent A1c 6.4% 05/2023 Age-related osteoporosis wit hout current pathological fracture 11/01/2023 Assessment & Plan (11/01/2023 2:21 PM EDT): Continue calcium +D Major depressive disorder in partial remission 0 11/01/2023 Assessment & Plan (01/26/2024 9:33 AM EDT): Mood stable Continues on effexor, buspar, and zyprexa Assessment & Plan (11/01/2023 2:20 PM EDT): Mood stable Continues on effexor, buspar, and zyprexa DNR (do not resuscitate) 11/01/2023 Type 2 diabetes mellitus wit h diabetic chronic kidney disease 10/28/2023 Assessment & Plan (01/26/2024 9:36 AM EDT): Diet controlled Last A1c 6.4 %, 05/2023 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..] guidance Additional Comments: Stable today Continues dialysis ,sat Diabetes mellitus due to und erlying condition with 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, bilateral 07/05/2020 Chronic diastolic congestive heart failure 07/05 Esophageal dysmotility 07/05/2020 PMR (polymyalgia rheumatica) 06/07/2020 Assessment & Plan (01/26/2024 9:34 AM EDT): No longer on prednisone Using oxycodone sparingly for pain DDD (degenerative disc disease), lumbar 06/07/19 21 long-term current use of systemic steroids 06/07 ESRD on dialysis 01/29/2020 Morbid obesity with BMI of 40.0-44.9, adult 12/30 Gastroesophageal reflux disease without esophagi tis 01/25/2020 TASH and COPD overlap syndrome 01/25/2020 Assessment & Plan (04/04/2024 4:02 PM EST): Continue bipap at hs Continuous o2 supplement Breathing stable today Assessment & Plan (01/26/2024 9:33 AM EDT): Continues CPAP at hs and continuous o2, encouraged compliance Not currently on inhalers Assessment & Plan (11/01/2023 2:19 PM EDT): Continues CPAP at hs, encouraged compliance Not currently on inhalers COPD (chronic obstructive pulmonary disease) HTN (hypertension) Acquired hypothyroidism Hyperlipidemia documented as of this encounter (statuses as of 04/10/2024) Resolved Problems Problem Noted Date Diagnosed Date Resolved Date Type 2 diabetes mellitus wit h unspecified diabetic retinopathy without macular edema 07/05/2020 10/28/2023 Overview (10/28/2023): More specific dx on pl Hypertensive kidney disease with end stage chronic kidney disease on dialysis 07/05/202010/27 Overview (10/28/2023): More specific dx added to pl Type 2 diabetes mellitus wit h stage 1 chronic kidney disease, with long-term current use of insulin 01/25/2020 10/28/2023 Overview (10/28/2023): More specific dx added to pl Nausea & vomiting 10/25/2015 07/11/2020 Epigastric pain 10/25/2015 07/11/2020 documented as of this encounter (statuses as of 04/10/2024) Immunizations Name Administration Dates Next Due COVID-19 mRNA, LNP-s, No Pre serve, 2-Dose Series (Pfizer) 08/09/2020,07/19/2020 documented as of this encounter Social [...] ages 0-17 years) Not on file 12/30/2023 Comments No Sex and Gender Information Value Date Recorded Sex Assigned at Not on file Legal Sex Female 7:01 AM EST Gender Identity Not on file Sexual Orientation Not on file documented as of this encounter Functional Status * Are you deaf or do you have serious difficulty hearing? Answer Date of Assessment Author No 10/18/2015 7:50 PM EDT Courtney Gonzalez RN documented as of this encounter Plan of Treatment Upcoming Encounters Date Type Department Care Team (Late st Contact Info) Description 05/05/2024 10:00 AM EST Home Visit [facility] [address] [place] [id number] Becki Santillan RN [address] [place] [id number] 06/26/2024 3:00 PM EST Home Visit [facility] [address] [place] [id number] Dewey Guillory PA-C [address] [place] [address] Scheduled Referrals Name Type Priority Associated Diagnoses Orde r Schedule VASCULAR SURGERY REFERRAL OP Referral Within 10 days (routine) End stage renal disease (HCC) 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) Ordered: 04/10/2024 Health Maintenance Due Date Last Done Comments Depression Monitoring 1957 Alpha-1 Antitrypsin 1963 Diabetic Foot Exam 1963 TSH 1963 HbA1c 10/15/1997 04/17/1997 *COPD SEVERITY VERIFIED BY PFT 01/28/2020 COVID-19 Vaccine ( season) 2024 03/30/2023, 06/25/2022, 06/25/2022, Additional history exists Influenza Vaccine (FLU shot) (#1) 2024 03/09/2023, 02/28/2022, 02/29/2020, Additional history exists *BISPHONATE OR OTHER ACCEPTABLE MEDICATION NEEDED FOR OSTEOPOROSIS (REFER TO SMARTSET #1146) 04/08/2024 Diabetic Eye Exam 10/21/2024 10/22/2023, , 08/03/2022, Additional history exists O2 ASSESSMENT COMPLETED IN PAST YEAR FOR COPD 04/03/2025 04/03/2024 DTap/Tdap Vaccines (2 - Td or Tdap) 08/02/2029 08/03/2019 Hepatitis C Screening Completed 10/19/2015 Zoster Vaccines Completed 08/08/2020, 0612/2019, 05/18/2019, Additional history exists Pneumococcal Vaccine: 65+ [...] this encounter Medical Devices Implanted Type Area Braider Operator Device Identifier Shelf Expiration Date Model / Serial / Lot 6 Mm X 14 Cm [employer] Embolization Coil Implanted:Qty: 2 on 10/21/2015 by Robb Rogel MD at [facility] [place] Right: Lower Arm 07/04/2020 [id number] / [id number] / [id number] Description:6 mm x 14 cm Inspector Line k [employer] Doris Embolization Coil 6 Mm X 14 Cm [employer] Embolization Coil Implanted:Qty: 2 on 10/21/2015 by Robb Rogel MD at [facility] [place] Right: Lower Arm 07/30/2019 [id number] / [id number] / [id number] Description:6 mm x 14 cm Inspector Line [employer] Embolization Coil 4 Mm X 14 Cm [employer] Embolization Coil Implanted:Qty: 3 on 10/21/2015 by Robb Rogel MD at [facility] [place] Right: Lower Arm 07/05/2020 [id number] / [id number] / [id number] Description:4 mm x 14 cm Inspector Line [employer] Embolization Coil 4 Mm X 14 Cm [employer] Embolization Coil Implanted:Qty: 5 on 10/21/2015 by Robb Rogel MD at [facility] [place] Right: Lower Arm 07/30/2019 [id number] / [id number] / [id number] Description:4 mm x 14 cm Inspector Line [employer] Embolization Coil 4 Mm X 3mm X 2.6 Cm [employer] Tornado Embolization Coil Implanted:Qty: 2 on 10/21/2015 by Robb Rogel MD at [facility] [place] Right: Lower Arm 07/18/2020 [id number] / [id number] / [id number] Description:4 mm x 3mm x 2.6 cm [employer] Tornado Embolization Coil documented as of this encounter Visit Diagnoses Diagnosis 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 ([facility])- Primary Type 2 diabetes mellitus with stable proliferative retinopathy of both eyes, unspecified whether middle or intermediate school principal insulin use ([facility]) Morbid obesity with BMI of 40.0-44.9, adult ([facility]) Morbid obesity Age-related osteoporosis without current pathological fracture Senile osteoporosis Hyperlipidemia, unspecified hyperlipidemia type TASH and COPD overlap syndrome ([facility]) Major depressive disorder in partial remission, unspecified whether recurrent ([facility]) Advanced care planning/counseling discussion Other specified counseling DNR (do not resuscitate) Do not resuscitate status 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 ([facility])- Primary Type 2 diabetes mellitus with chronic kidney disease on chronic dialysis, without long-term current use of insulin ([facility]) Major depressive disorder in partial remission, unspecified whether recurrent (HCC) TASH and COPD overlap syndrome ([facility]) PMR (polymyalgia rheumatica) ([facility]) Polymyalgia rheumatica Advanced care planning/counseling discussion Other specified counseling 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 ([facility])- Primary TASH and COPD overlap syndrome ([facility]) Atherosclerosis of nulato coronary artery without angina pectoris, unspecified whether nulato or transplanted heart Advanced care planning/counseling discussion Other specified counseling End stage renal disease ([facility])- Primary End stage renal disease Dependence on renal dialysis ([facility]) Renal dialysis status documented in this encounter Advance Directives * Full Code (Latest Code Status on File) Date Activated Date Inactivated Comments 10/18/2015 8:38 PM 10/27/2015 5:32 PM Question Answer Comments Discussion of Advance Directives occurred with: Not Discussed Healthcare Agents on File Name Relationship Healthcare Agent Relationshi p Communication Oscar Lawson Adult Child Health Care Agen t (per Health Care Power of Senior Behavioral Scientist document) Care Teams Tar Roofer Relationship Specialty Start Date End Date Pro, Julito Chris MD [address] [place] [address] PCP - General Internal Medicine 01/24/20 documented as of this encounter
--- OUTSIDE RECORDS SUMMARY | 2024-04-11 06:48 | External Medical Summary | Summary of Care ---
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)*; TASH and COPD overlap syndrome (HCC); 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, unspecified whether upper mattaponi or transplanted heart; Advanced care planning/counseling discussion Allergies Active Allergy Reactions Criticality Noted Date Comments Lisinopril Cough Low 10/18/2015 documented as of this encounter (statuses as of 04/04/2024) Medications Medication Sig Dispensed Refills Start Date [...] AFTER DIALYSIS 48 Capsule 1 09/14/2022 Active Bumetanide 2 MG Oral Tablet TAKE TWO TABLETS BY MOUTH TWICE A DAY 360 Tablet 3 08/18/2022 Active CPAP Uses oxygen with CPAP 12/09/2022 Active oxygen IN GAS Use 3 L/min(Oxygen) [...] twice daily 180 Tablet 3 08/03/2023 Active Venlafaxine HCl ER 75 [...] needed for pain 30 Tablet 01/21/2024 Active Lactulose 10 GM/15ML Oral Solution (Constulose) Take 15 mL by mouth daily as needed for Constipation. 1419 mL 3 01/25/2024 Active OLANZapine 10 MG Oral Tablet (zyPREXA) take 1/2 tablet by mouth twice daily 90 Tablet 3 01/24/2024 Active Levothyroxine Sodium 100 MCG Oral Tablet (Levoxyl) Take 1 tablet by mouth daily in the evening 90 Tablet 3 02/22/2024 Active hydrALAZINE HCl 25 MG Oral Tablet (Apresoline) Take 1 Tablet by mouth 3 times a day. 270 Tablet 3 02/28/2024 Active amLODIPine Besylate 5 MG Oral Tablet (Norvasc) Take one tablet by mouth daily 90 Tablet 1 03/23/2024 Active Sodium Zirconium Cyclosilicate 10 GM Oral Packet (Lokelma) Take 1 Packet by mouth in the morning. 04/03/2024 Active Sodium Zirconium Cyclosilicate 5 GM Oral Packet (Lokelma) Take 1 Packet by mouth once a day on Wednesday, Wednesday, Wednesday ,and Wednesday only. 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, bilateral 07/05/2020 Chronic diastolic congestive heart failure 07/05 Esophageal dysmotility 07/05/2020 PMR (polymyalgia rheumatica) 06/07/2020 Last Assessment & Plan: No longer on prednisone Using oxycodone sparingly for pain DDD (degenerative disc disease), lumbar 06/07/19 [facility] current use of systemic steroids 06/07 ESRD on dialysis 01/29/2020 Morbid obesity with BMI of 40.0-44.9, adult 12/30 Gastroesophageal reflux disease without esophagi tis 01/25/2020 TASH and COPD overlap syndrome 01/25/2020 Last Assessment & Plan: Continue bipap at hs Continuous o2 supplement Breathing stable today COPD (chronic obstructive pulmonary disease) HTN (hypertension) Acquired hypothyroidism Hyperlipidemia documented as of this encounter (statuses as of 04/04/2024) Resolved Problems Problem Noted Date Diagnosed Date [...] as of this encounter (statuses as of 04/04/2024) Immunizations Name Administration Dates Next Due COVID-19 mRNA, LNP-s, No Pre serve, 2-Dose Series ([employer]) 08/09/2020,07/19/2020 documented as of this encounter Social [...] Sign Reading Time Taken Comments Blood Pressure 116/60 04/03/2024 12:15 PM EST Pulse 60 04/03/2024 12:15 PM EST Temperature - - Respiratory Rate - - Oxygen Saturation 96% 04/03/2024 12:15 PM EST 3L Inhaled Oxygen Concentration - - Weight - - Height - - Body Mass Index - - documented in this encounter Functional Status Functional Status Response Date of Assess ment Are you deaf or do you have serious difficulty h earing? No 10/18/2015 documented as of this encounter Progress Notes * Dewey Guillory PA-C - 04/03/2024 12:00 PM EST Images from the original note were not included. [facility] Problem Oriented Charting Provider Visit Date: 04/03/2024 Time: 12:00 PM Assessment and Plan #1 Hypertensive heart and [...] nephrology for guidance Additional Comments: Continues dialysis tues,thurs,sat Recent hyperkalemia, lokelma increased Encouraged low sodium and low potassium diet #2 TASH and COPD overlap syndrome (HCC) Assessment & Plan: Continue bipap at hs Continuous o2 supplement Breathing stable today #3 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, unspecified whether upper mattaponi ortransplanted heart #4 Advanced care planning/counseling discussion Other orders - Sodium Zirconium Cyclosilicate; Take 1 Packet by mouth in the morning. Additional Medical Decision Making: Patient lives with spouse in single level home Ramp to enter Has electric scooter for mobility outside, using walker inside Daughter manages medications, sets up monthly pill boxes. Patient also familiar with meds Lokelma increased at recent admission to 10g daily for hyperkalemia denies any other changes since previous visit Hospital reports not available for review at time of visit Scheduled appointments in the next 60 days: Future Appointments-next 60 days Date/Time Provider Specialty Dept Phone 04/03/2024 1:00 PM Dewey Guillory PA-C [facility] [phone] 05/05/2024 10:00 AM Becki Santillan RN [facility] [phone] A total of 30 minutes was spent face to face (via video-based telemedicine if designated as a telemedicine visit) Subjective Subjective Is this a Telemedicine Visit? No, this is an Home Visit. Reason For [facility] Visit: Follow-Up Current Concerns: Shirley Patrick is a 78 year old female seen today for a [facility] provider visit. PMH includes ESRD on dialysis, CHF, COPD, HTN, DM2, hyperlipidemia, TASH on CPAP, PMR, obesity, depression 01/08-01/12/24 - [facility] - respiratory failure, chf 01/2024? - [facility] - weakness and hyperkalemia Today's concerns are: Patient admitted as above Reports she "didn't feel right" at home and call 911 Was admitted for significant hyperkalemia, patient reports k+ >9.0 Her potassium is being monitored at diasis Her lokelma was increased at discharged Since returning home, has felt at baseline Denies any SOB, chest pain, palpitations Continues dialysis 3xweek Bipap at and continuous oxygen Did have pressure ulcer on buttocks recently, healed at this time Continues to use barrier cream Has wound clinic f/u 05/15 Additional I have reviewed the following results: None Current Outpatient Medications Medication Sig Dispense Refill amLODIPine Besylate 10 MG Oral Tablet (Norvasc) Take 1 tablet by mouth daily 90 Tablet 3 amLODIPine Besylate 5 MG Oral Tablet (Norvasc) Take one tablet by mouth daily 90 Tablet 1 Bumetanide 2 MG Oral Tablet TAKE TWO TABLETS BY MOUTH TWICE A DAY 360 Tablet 3 busPIRone HCl 5 MG Oral Tablet (Buspar) Take 1 tablet by mouth twice daily 180 Tablet 3 calcium acetate, Phos Binder, (PHOSLO) 667 MG TABS tablet Take 2 Tablets by mouth in the morning and 2 Tablets at noon and 2 Tablets in the evening. Take with meals. Takes 1 with snack. Carvedilol 12.5 MG Oral Tablet (Coreg) Take 1 tablet (12.5mg) by mouth twice a day 180 Tablet 3 Cholecalciferol 50 MCG (2000 UT) Oral Tablet Take 1 Tablet by mouth in the morning. CPAP Uses oxygen with CPAP Gabapentin 300 MG Oral Capsule (Neurontin) TAKE 1 CAPSULE BY MOUTH THREE TIMES A WEEK ON WEDNESDAY, WEDNESDAY AND WEDNESDAY AFTER DIALYSIS 48 Capsule 1 Gabapentin 300 MG Oral Capsule (Neurontin) take 1 capsule by mouth three times weekly; Wednesday, , wednesday after dialysis 36 Capsule 1 hydrALAZINE HCl 25 MG Oral Tablet (Apresoline) Take 1 Tablet by mouth 3 times a day. 270 Tablet 3 Ipratropium-Albuterol 0.5-2.5 (3) MG/3ML Inhalation Solution (Duoneb) Inhale 3 mL by mouth every 6 hours as needed. Lactulose 10 GM/15ML Oral Solution (Constulose) Take 15 mL by mouth daily as needed for Constipation. 1419 mL 3 Levothyroxine Sodium 100 MCG Oral Tablet (Levoxyl) Take 1 tablet by mouth daily in the evening 90 Tablet 3 LORazepam 1 MG Oral Tablet (Ativan) take one-half tablet by mouth twice a day As Needed for [id number] Tablet 0 Magnesium 400 MG Capsule Take 1 Capsule by mouth in the morning. 1 Cap Multiple Vitamins-Minerals (PRORENAL + D) TABS Take by mouth. Takes 1 tab daily OLANZapine 10 MG Oral Tablet (zyPREXA) Take 1/2 tablet by mouth twice daily 30 Tablet 2 OLANZapine 10 MG Oral Tablet (zyPREXA) take 1/2 tablet by mouth twice daily 90 Tablet 3 ondansetron (ZOFRAN) 8 MG Tablet Take 1 Tablet by mouth every 8 hours as needed for Nausea. 1 Tab 0 oxyCODONE HCl 5 MG Oral Tablet (Oxy IR) take one-half tablet by mouth twice a day As Needed for pain 30 Tablet 0 oxyCODONE HCl 5 MG Oral Tablet (Oxy IR) Take one-half tablet by mouth twice daily as needed for pain 30 Tablet 0 oxygen IN GAS Use 3 L/min(Oxygen) as directed continuous. Pantoprazole Sodium 40 MG Oral Tablet Delayed Release (Protonix) take 1 tablet by mouth twice [id number] Tablet 3 Sodium Zirconium Cyclosilicate 10 GM Oral Packet (Lokelma) Take 1 Packet by mouth in the morning. Venlafaxine HCl ER 75 MG Oral Capsule Extended Release 24 Hour (Effexor XR) Take 1 capsule by mouthdaily 90 Capsule 3 No current facility-administered medications for this visit. Objective Objective Vitals: 04/03/24 1215 Pulse: 60 SpO2: 96% BP: 116/60 Last Weights: Wt Readings from Last 3 Encounters: 10/08/23 89.8 kg (198 lb) 04/07/23 92.5 kg (203 lb 14.4 oz) 07/16/20 100.2 kg (221 lb) Last BPs: BP Readings from Last 4 Encounters: 04/03/24 116/60 01/24/24 122/58 01/16/24 120/60 01/09/24 126/72 General: alert and no distress Neuro: alert & oriented x 3 with fluent speech Heart: regular rate & rhythm and no murmur Lungs: decreased breath sounds Abdomen: abdomen soft, non-tender, obese, and normal bowel sounds Ext: trace ankle edema bilat Dewey Guillory PA-C 12:00 PM documented in this encounter Miscellaneous Notes * ACP (Advance Care Planning) - Dewey Guillory PA-C - 04/04/2024 4:06 PM EST Images from the original note were not included. Patient-centered Communication 04/03/2024 The patient/surrogate voluntarily agreed to participate in advance care planning discussion. They were advised that this is a separate service which may incur out of pocket cost in the form of copayment and/or deductibles. Location: Home Individual(s) present for conversation: Patient and Spouse Decisions Synopsis [employer] Most Recent Value Past ~10 years 04/04/2024 16:07 Decisions CPR decision: Declines CPR 01/26/2024 Intubation/Mechanical Ventilation decision: Declines Intubation/mechanical ventilation 01/26/2024 Antibiotic therapy decision: Patient chooses Antibiotic therapy 01/26/2024 Artificial nutrition decision: Declines Artificial nutrition 01/26/2024 IV hydration decision: Patient chooses IV hydration 01/26/2024 Blood transfusion decision: Yes 07/11/2020 Lab draw decision: Yes 07/11/2020 Dying at home decision: No, undecided 07/11/2020 Dialysis decision: -- . 04/04/2024 -- . Additional Comments Synopsis [facility] Most Recent Value Past ~10 years 01/26/2024 09:36 Additional Comments Additional Comments: remains DNR/DNI. POLST on fridge 01/26/2024 remains DNR/DNI. POLST on fridge Discerning What Matters Most to the Patient: Synopsis [facility] Most Recent Value Past ~10 years 04/04/2024 16:04 Discerning What Matters Most to the Patient In their own words, patient's UNDERSTANDING of their illness is: Understand the disease is not going to go away or not going to improve 07/11/2020 Their current SYMPTOMS include: Tiredness;Shortnes of breath;Depression;Reduced overall well being 04/04/2024 Tiredness;Shortnes of breath;Depression;Reduced overall well being They say their illness has CHANGED THEIR LIFE by: Less enjoyment (quality of life);Feel like a burden to family/loved ones has to care for her 04/04/2024 Less enjoyment (quality of life);Feel like a burden to family/loved ones has to care for her The patient thinks COMPLICATIONS in the future may be: More fatigue;;More hospitalizations 04/04/2024 More fatigue;;More hospitalizations Was PROGNOSIS discussed? Yes 07/11/2020 Prognosis was discussed today as likely to live: Many years 07/11/2020 Progression of illness described as: Periods of stability with episodes of worsening 07/11/2020 The patient's HOPES are: Maintain current functional abilities;Avoid further hospitalization;Avoid the ICU;Avoid intubation/mechanical ventilation;Avoid the usp 07/11/2020 The patient's FEARS/WORRIES about illness are: -- Patient states she really has no fears. She does want to be comfortable read at the end really 07/11/2020 The patient considers these as 'UNACCEPTABLE OUTCOMES': Unable to talk/interact with loved ones 07/11/2020 Source: Content from [employer] Program Aligning Care With What Matters Most: Real Life Plusopsis Content [facility] Most Recent Value Past ~10 years 04/04/2024 16:07 Aligning Care With What Matters Most Interventions/Choices: Dialysis 04/04/2024 Dialysis Rationale for Decisions Synopsis [employer] [facility] Most Recent Value Past ~10 years 07/11/2020 11:34 Dialysis They describe the benefits and burdens of Dialysis treatment as: Patient currently undergoing diabetes multiple years and understands benefits and burdens very well 07/11/2020 Patient currently undergoing diabetes multiple years and understands benefits and burdensvery well Source: Content from [employer] Program 10 minutes spent in direct [id number] discussion today, Dewey Guillory PA-C * Assessment & Plan Note - Dewey Guillory PA-C - 04/04/2024 4:02 PM EST Associated Problem(s): TASH and COPD overlap syndrome (HCC) Continue bipap at hs Continuous o2 supplement Breathing stable today * Assessment & Plan Note - Dewey Guillory PA-C - 04/04/2024 4:01 PM EST Associated Problem(s): 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) "RED FLAG" HF Symptoms: Leg Swelling (Examples: [...] nephrology for guidance Additional Comments: Continues dialysis gideon marina sat Recent hyperkalemia, lokelma increased Encouraged low sodium and low potassium diet documented in this encounter Plan of Treatment Upcoming Encounters Date Type Department Care Team (Late st Contact Info) Description 05/05/2024 10:00 AM EST Home Visit [facility] [address] [place] [id number] Becki Santillan RN [address] [place] [id number] 06/26/2024 3:00 PM EST Home Visit [facility] [address] [place] [address] Dewey Guillory PA-C [address] [place] [address] Health Maintenance Due Date Last Done Comments [...] this encounter Medical Devices Implanted Type Area [employer] Crossing Guard Device Identifier Shelf Expiration Date Model / Serial / Lot 6 Mm X 14 Cm [employer] Odris Embolization Coil Implanted:Qty: 2 on 10/21/2015 by Robb Rogel MD at [facility] Right: Lower Arm 07/04/2020 [id number] / [id number] / [id number] Description:6 mm x 14 cm Scientific Recruiter k Medical Doris Embolization Coil 6 Mm X 14 Cm [employer] Doris Embolization Coil Implanted:Qty: 2 on 10/21/2015 by Robb Rogel MD at [facility] Right: Lower Arm 07/30/2019 [id number] / [id number] / [id number] Description:6 mm x 14 cm Scientific Recruiter k Medical Doris Embolization Coil 4 Mm X 14 Cm [employer] Doris Embolization Coil Implanted:Qty: 3 on 10/21/2015 by Robb Rogel MD at [facility] [place] Right: Lower Arm 07/05/2020 [id number] / [id number] / [id number] Description:4 mm x 14 cm Scientific Recruiter k Medical Doris Embolization Coil 4 Mm X 14 Cm [employer] Doris Embolization Coil Implanted:Qty: 5 on 10/21/2015 by Robb Rogel MD at [facility] Right: Lower Arm 07/30/2019 [id number] / [id number] / [id number] Description:4 mm x 14 cm Scientific Recruiter [employer] Medical Doris Embolization Coil 4 Mm X 3mm X 2.6 Cm [employer] Tornado Embolization Coil Implanted:Qty: 2 on 10/21/2015 by Robb Rogel MD at [facility] Right: Lower Arm 07/18/2020 [id number] / [id number] / [id number] Description:4 mm x 3mm x 2.6 cm [employer] Tornado Embolization Coil documented as of this encounter Visit Diagnoses Diagnosis 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)- Primary TASH and COPD overlap syndrome (HCC) 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, unspecified whether upper mattaponi or transplanted heart Advanced care planning/counseling discussion Other specified counseling documented in this encounter Advance Directives * Full Code (Latest Code Status on File) Date Activated Date Inactivated Comments 10/18/2015 8:38 PM 10/27/2015 5:32 PM Question Answer Comments Discussion of Advance Directives occurred with: Not Discussed Healthcare Agents on File Name Relationship [facility] (per Health Care Power of Children'S Program Coordinator document) Care Teams Mantel Craftsman Relationship Specialty Start Date End Date Pro, Julito Chris MD [address] [place] [address] PCP - General Internal Medicine 01/24/20 documented as of this encounter
[2024-04-11 06:58] LABS: Basophils # (auto) 0.06 K/uL (0.00-0.20); Basophils % (auto) 0.4 %; Eosinophils # (auto) 0.06 K/uL (0.00-0.50); Eosinophils % (auto) 0.4 %; Hematocrit (blood only) 34.5 % (37.0-47.0); Hemoglobin 10.8 g/dl (12.0-16.0); Immature Granulocytes # (auto) 0.05 K/uL (0.01-0.20); Immature Granulocytes % (auto) 0.3 %; Lymphocytes # (auto) 1.26 K/uL (1.20-3.40); Lymphocytes % (auto) 8.1 %; Mean Corpuscular Hemoglobin 31.4 pg (25.0-34.0); Mean Corpuscular Hgb Conc 31.3 g/dL (32.0-36.0); Mean Corpuscular Volume 100.3 fL (80.0-100.0); Mean Platelet Volume 10.3 fL (9.4-12.4); Monocytes # (auto) 1.71 K/uL (0.11-0.59); Neutrophils # (auto) 12.44 K/uL (1.40-6.50); Neutrophils % (auto) 79.8 %; Platelet Count 144 K/uL (130-400); RDW Coefficient of Variation 14.2 % (11.5-14.5); RDW Standard Deviation 51.8 fL (36.4-46.3); Red Blood Count 3.44 M/uL (4.20-5.40); White Blood Count 15.58 K/ul (4.8-10.8)
[2024-04-11 07:27] LABS: BUN Creatinine Ratio 8.3 (10-20); Calcium 9.3 mg/dl (8.6-10.3); Creatinine Clr Calc Pharmacy 4.9 ml/min; Potassium 5.1 mmol/L (3.5-5.1)
--- NOTE | 2024-04-11 08:51 | Hospitalist Progress Note ---
Date of Service April 11, 2024 Assessment & Plan (1) Acute respiratory failure with hypoxia and hypercarbia: Plan: Acute hypoxic respiratory failure with hypoxia and hypercarbia Multifactorial: * 2nd HDESRD, CHF, and possible pneumonia as noted below. * Weight is UP 100.5-104.6kg from admission (dry weight ~90kg). On baseline O2 2-3L at home WBC 21.1k w/ L shift. Procalcitonin 1.15. VBG with pH 7.2 with elevated CO2. BiPAP placed, continued. Repeat VBG this afternoon planned Cefepime IV abx continued WBC improving, 15k on repeat. Remains AFEBRILE Blood cultures pending, follow. Urine cx if able to produce Nephrology consulted for volume overload/HD for today -- attempting 4L w/ HD as BP allows. Supplemental O2 to maintain sats, titrate as able to baseline 2-3L home use PT/OT consults placed for completeness (2) Acute heart failure with preserved ejection fraction: Plan: Suspect acute on chronic HFpEF contributing to #1, weights UP as above. BNP 570s Nephrology consulted and HD as outlined Repeat CXR ordered following HD for evaluation Continue home meds w/ coreg 12.5mg, amlodipine 10mg, hydralazine 25mg TID (holding prior to HD session to prevent drop in BP) Monitor volume status w/ HD, appreciate nephrology consult/assistance Monitor volume status (3) PNA (pneumonia): Plan: Possible, PNA vs CHF exacerbation as noted CXR noting volume overload without pulmonary edema. HD as above. WBC w/ leukocytosis with neutrophil predominance, procalcitonin elevation Continues on Cefepime, f/u Chest xray as above. No hx MRSA, defer Vancomycin Pulmonary toilet added with incentive spirometry BiPAP/O2 to maintain sats as above, baseline 2-3L O2 Repeat VBG in AM *Abd pain resolving w/ HD/taking off fluid w/ HD and will monitor UA as able to collect (4) End-stage renal disease on hemodialysis: Plan: ESRD, dialysis dependent Wednesday//Wednesday Patient presents with fatigue, volume overload without pulmonary edema, and mild hyperkalemia which was treated with IV calcium gluconate, insulin/dextrose, Lokelma, sodium bicarb given for hyperkalemia Nephrology consulted. - Lokemla resumed daily as taking at home to prevent hyperkalemia HD for today, attempting 4L w/ UF as able Appreciate continued assistance w/ nephrology for HD/volume status UA if able to obtain/making any urine (reports she has NOT) (5) CHF (congestive heart failure): Plan: HD for UF as outlined, monitor volume status following (6) Restrictive lung disease: (7) Cardiomyopathy: (8) B12 deficiency: Plan: prior checked last month and borderline -- 500mcg PO daily started and would continue at dc Plan Other chronic medical issues Type II DM Last A1c well-controlled and continues SSI while inpatient. Adjustments as needed Continue SSI, goal BSG [id number] Hypertension - Chronic/stable, fluctuations w/ HD as above Continue amlodipine, Coreg, hydralazine per nephrology w/ HD TASH/restrictive lung disease/sleep disordered breathing BiPAP at bedtime Due to acute respiratory acidosis patient is placed on BiPAP continuous with VBG every 4 hours until improved. Remains on BiPAP, HD as above - Repeat VBG ordered as outlined and O2 to maintain sats Dispo: continued inpatient stay, HD for volume status/BiPAP for acidosis and will convert to NC if improved on repeat VBG. Continues on Cefepime and CXR following HD for eval. PT/OT consults placed, CM to follow if unable to return home safely. ?outpt palliative consult/referral pending response to treatment? Admission and Anticipated Discharge Date Admission Date: April 10, 2024 Supervising Physician Co-Signing Physician Notes The patient was not seen by me. The chart was reviewed. Case discussed with RENO Bess. Agree with assessment and plan Subjective Patient evaluated in HD around 1212:15. Sitting up in bed. BiPAP in place. Reports breathing improved but still having ongoing shortness of breath. Has about an hour left of treatment. Discussed abx for possible pneumonia but also ?if having SOB from volume overload given weights up and attempting to dialyze off additional fluid however BP variable and per HD nurse may not be able to get to the 4L as hoped but will continue to monitor. Patient has not made any urine for sample at present time. She is requesting warm blanket, provided. No CP/abdominal pain or nausea at present time. Alert/oriented to place/year/time at present, BiPAP remains in place. Questions/concerns addressed at this time. Continued inpatient stay. Physical Exam 2 Physical Exam: General: 78 yo female sitting up in bed in HD, resting initially with BiPAP in place but easily awoken to name. alert to person/place/year, cooperative but fatigued appearing, +frail Head atraumatic, normocephalic, mmm, trachea midline Resp: even/unlabored but diminished in the bases with associated crackles, no wheezing, on BiPAP CV: RRR, no significant m/r/g, trace LLE edema>RLE (at baseline per patient), calves nontender, pulses present R arm AV fistula, +bruit GI: +BS, nontender : no marsh MSK/Neuro: generalized weakness but nonfocal, able to follow commands no slurred speech/facial droop Psych: fatigued appearing but alert/oriented to person/place/year Results & Data Results & Data Vital Signs (Past 12 Hours) Vital Signs Pulse Pulse Resp BP Pulse Ox Pulse Ox O2 Del Method 04/11/24 07:56 64 22 97 04/11/24 04:00 66 18 129/60 93 BiPAP 04/11/24 04:00 93 04/11/24 03:18 75 21 95 04/11/24 02:38 72 14 134/69 96 Room Air, BiPAP 04/11/24 02:18 73 04/10/24 23:23 80 22 137/65 97 Room Air 04/10/24 22:33 82 04/10/24 21:53 84 22 146/78 H 93 Nasal Cannula 04/10/24 21:13 82 20 157/70 H 98 Room Air O2 Del Method O2 Flow Rate O2 Flow Rate 04/11/24 07:56 4 04/11/24 04:00 4 04/11/24 04:00 BiPAP 4 04/11/24 03:18 4 04/11/24 02:38 04/11/24 02:18 04/10/24 23:23 04/10/24 22:33 04/10/24 21:53 4 04/10/24 21:13 Laboratory Results 04/11/24 06:09 04/11/24 06:09 INR 1.0 VBG w/ pH 7.29, pCO2 70. HCO3 34. Mag 2.6 TB/AST/ALT wnl, ALP elevated to 110 Procalcitonin 1.15 Diagnostic Findings Chest X-Ray 04/10/24 18:29 EXAM: XR chest 1V portable CLINICAL HISTORY: DYSPNEA KIS/PGM TECHNIQUE: X-ray chest was performed in 1 view: AP portable projection. COMPARISON: 01/09/2024, 08/17/2023 FINDINGS: Prominent bilateral ruben with increased bronchovascular marking and possible cephalization. Moderate cardiomegaly. Previously noted opacity in the left lower zone shows interval resolution, Normal bilateral costophrenic angles. Degenerative changes involving the bones. No evidence of pneumothorax. IMPRESSION: 1. The above-mentioned finding could represent early pulmonary edema/congestive changes however possibility of infection cannot be entirely excluded. 2. Previously noted opacity in the left lower zone shows interval resolution, 3. Advise clinical correlation and follow-up. Electronically signed by Zachery Watts 04-10-2024 8:[address] 04/10/24 18:43 Exam(s): CT HEAD Without Contrast EXAM: CT Head Without Intravenous Contrast CLINICAL HISTORY: Reason for exam: weakness. TECHNIQUE: Axial computed tomography images of the head/brain without intravenous contrast. CTDI is 36 mGy and DLP is 624 mGy-cm. Automated exposure control was utilized for the study. A dose lowering technique was utilized adhering to the principles of ALARA. COMPARISON: No relevant prior studies available. FINDINGS: Brain: No intracranial hemorrhage, mass-effect, or cerebral edema. Global parenchymal atrophy. Periventricular and subcortical low attenuation which is nonspecific but favored to represent chronic microvascular ischemic changes. Ventricles: Unremarkable. Bones/joints: Unremarkable. No fracture. Soft tissues: Unremarkable. Sinuses: No acute sinusitis. Mastoid air cells: Unremarkable as visualized. IMPRESSION: 1. No acute intracranial abnormality. Electronically signed by: Guzman Foley MD 04/10/24 19:46 PM Abdomen/Pelvis CT 04/10/24 21:53 Exam(s): CT ABDOMEN + PELVIS Without Contrast EXAM: CT Abdomen and Pelvis Without Intravenous Contrast CLINICAL HISTORY: Reason for exam: abdominal pain. TECHNIQUE: Axial computed tomography images of the abdomen and pelvis without intravenous contrast. Automated exposure control was utilized for the study. A dose lowering technique was utilized adhering to the principles of ALARA. COMPARISON: No relevant prior studies available. FINDINGS: Lung bases: Unremarkable. No mass. No consolidation. ABDOMEN: Liver: Unremarkable. Gallbladder and bile ducts: Unremarkable. No calcified stones. No ductal dilation. Pancreas: Unremarkable. No ductal dilation. Spleen: Unremarkable. No splenomegaly. Adrenals: Unremarkable. No mass. Kidneys and ureters: Unremarkable. No obstructing stones. No hydronephrosis. Stomach and bowel: Diverticulosis without of diverticulitis. No obstruction. PELVIS: Appendix: No findings to suggest acute appendicitis. Bladder: Unremarkable. No stones. Reproductive: Unremarkable as visualized. ABDOMEN and PELVIS: Intraperitoneal space: Unremarkable. No free air. No significant fluid collection. Bones/joints: No acute fracture. No dislocation. Soft tissues: Postoperative changes midline anterior abdominal wall. Vasculature: Unremarkable. No abdominal aortic aneurysm. Lymph nodes: Unremarkable. No enlarged lymph nodes. IMPRESSION: No acute findings in the abdomen or pelvis. Electronically signed by: Carlos Paz MD 04/11/24 01:43 AM PG Care Time/CCT Total # of Minutes Spent Total Time Spent with Patient: Total time spent is greater than 50% in coordination of care (as documented) at patient's floor/unit and/or counseling patient: Coding Level of Care Code 25577 SUB INP/OBS CARE 3/50MIN Diagnoses Acute respiratory failure with hypoxia and hypercarbia J96.01; J96.02 Acute heart failure with preserved ejection fraction I50.31 PNA (pneumonia) J18.9 End-stage renal disease on hemodialysis N18.6; Z99.2 Acute systolic congestive heart failure I50.9 Heart failure chronicity: unspecified Heart failure type: unspecified Restrictive lung disease J98.4 Cardiomyopathy I42.9 B12 deficiency E53.8 (5) CHF (congestive heart failure) Heart failure chronicity: unspecified Heart failure type: unspecified Qualified Code(s): I50.9 - Heart failure, unspecified
--- NOTE | 2024-04-11 09:00 | Nephrology Consultation ---
Date of Consultation April 11, 2024 Assessment & Plan (1) End-stage renal disease on hemodialysis: (2) Anemia: (3) PNA (pneumonia): (4) Acute hyperkalemia: (5) COPD, severe: (6) Metabolic encephalopathy: Plan ESRD on HD TTS. Orders for HD today entered into the EHR and reviewed with the dialysis nurse. Emergent HD coordinated for volume overload and hyperkalemia. Outpatient Rx: TTS 3.5 hours, 180 optiflux, 350/800, 2K 2 calcium. EDW 89 kg. Left treatment on 04/08 at 90.6 kg. Shirley is maintained on Micera monthly as an outpatient. She received a dose yesterday. Iron profile acceptable. Medications are appropriately dosed for kidney function. Started on cefepime. Hold carvedilol pre HD. Continue sodium zirconium cyclosilicate on non dialysis days. Calcium acetate QAC. Renal diet. History of Present Illness Reason for Consultation: ESRD on HD Requesting Physician: Adolfo Trujillo MD Attending Physician: Adolfo Trujillo MD History of Present Illness Mrs. Shirley Patrick is a 78 year-old female with ESRD attributed to DKD. She dialyzes at [facility] on a TTS schedule. She completed her last treatment on April 08. No recent complications have been reported with dialysis. Records from [facility] were reviewed this AM. Shirley has been on HD since 2015 (TTS 3.5 hr 2K 2Ca 33HCO3 137Na F-180NR EDW 89 kg). She left HD at 90.6 kg on Wednesday. Net UF 4 L. She has a well functioning right forearm AVF. Medical history is significant for AODM, COPD, HTN, ASCVD, hypothyroidism, GERD, depression, RLS, TASH and large hiatal hernia with chronic abdominal/chest discomfort. She presented to the ER yesterday with weakness and shortness of breath. Shirley was very lethargic and difficult to arouse this AM on BIPAP. She was seen and evaluated immediately prior to and during hemodialysis. BP acceptable. Shirley was admitted with hypoxia and volume overload. Viral screen negative. Elevated WBC. CXR demonstrating pulmonary vascular congestion. ROS notable for generalized weakness and fatigue ~24 hours. She also reported chills and abdominal pain. CT abdomen unrevealing. Allergies Allergy/AdvReac Type Severity Reaction Status Date / Time lisinopril AdvReac Intermediate cough Verified 03/31/24 07:59 Home Medications Medication Instructions Recorded Confirmed Type vit B complx, C-iron 8 mg-folic 1 tab PO QDL 02/27/20 04/11/24 History acid 800 mcg-D3 1,000 unit-zinc tablet (ProRenal) lancets 33 gauge (OneTouch Delica #100 ea 11/27/20 04/11/24 Rx Lancets) calcium acetate 667 mg tablet 667 mg PO UD 12/17/20 04/11/24 History blood sugar diagnostic (OneTouch #300 ea 07/31/22 04/11/24 Rx Verio test strips) blood-glucose meter (OneTouch #1 ea 07/31/22 04/11/24 Rx Verio Meter) cholecalciferol (vitamin D3) 50 50 mcg PO DAILY #90 caps 07/31/22 04/11/24 Rx mcg (2,000 unit) capsule ondansetron 8 mg disintegrating 8 mg PO Q8H PRN Nausea #90 tabs 07/31/22 04/11/24 Rx tablet Oxygen Home #1 ea 09/04/22 04/11/24 Rx amlodipine 10 mg tablet 10 mg PO DAILY #90 tabs 07/28/23 04/11/24 Rx carvedilol 12.5 mg tablet (Coreg) 12.5 mg PO BID #180 tabs 08/03/23 04/11/24 Rx lactulose 10 gram/15 mL oral 15 ml PO DAILY PRN Constipation 08/13/23 04/11/24 Rx solution #1,350 mL buspirone 5 mg tablet 5 mg PO BID #180 tabs 09/16/23 04/11/24 Rx pantoprazole 40 mg tablet,delayed 40 mg PO BID 90 days #180 tabs 09/16/23 04/11/24 Rx release venlafaxine 75 mg capsule,extended 75 mg PO DAILY #90 caps 09/16/23 04/11/24 Rx release 24 hr oxycodone 5 mg tablet 2.5 mg (1/2 x 5 mg) PO BID PRN 01/21/24 04/11/24 Rx pain #30 tabs olanzapine 10 mg tablet See Rx Instructions PO BID #90 tabs 01/24/24 04/11/24 Rx hydralazine 25 mg tablet 25 mg PO TID 02/21/24 04/11/24 History levothyroxine 100 mcg tablet 100 mcg PO QPM #90 tabs 02/22/24 04/11/24 Rx sodium zirconium cyclosilicate 10 10 g PO DAILY #30 ea 02/23/24 04/11/24 Rx gram oral powder packet lorazepam 1 mg tablet 0.5 mg (1/2 x 1 mg) PO BID PRN 03/22/24 04/11/24 Rx anxiety #30 tabs gabapentin 300 mg capsule 300 mg PO 3XWK #36 caps 04/06/24 04/11/24 Rx Patient History Medical History Chronic respiratory failure with hypoxia Acute and chronic respiratory failure with hypoxia Acute and chronic respiratory failure with hypercapnia Weakness generalized Cellulitis of right leg Morbid obesity with BMI of 40.0-44.9, adult Diabetic eyes Hallucinations Fatigue Abnormal EKG Acute electrocardiogram changes Transaminitis Elevated troponin Myoclonus Acute hyperkalemia Hyperkalemia, diminished renal excretion Laceration of left lower extremity Hernia, hiatal GERD without esophagitis Macular puckering, bilateral Panniculitis Tubular adenoma of colon Hypertension History of thrombophlebitis Arthritis Surgical History History of tonsillectomy S/P repair of paraesophageal hernia History of nasal septoplasty History of cataract surgery History of bladder surgery S/P arteriovenous (AV) fistula creation S/P rotator cuff repair S/P hysterectomy H/O: hysterectomy Family History Mother Leukemia Cerebral aneurysm Hypertension Anxiety Diabetes Cancer Heart disease Grandmother Hypertension Father Osteoarthritis COPD (chronic obstructive pulmonary disease) Diabetes Hearing loss Sister Diabetes Myocardial infarction COPD (chronic obstructive pulmonary disease) Hypertension Brother Myocardial infarction Diabetes Cancer Stomach cancer Other No family history of bleeding disorder Denies family history of Ovarian cancer Prostate cancer Breast cancer Colorectal cancer Stroke Asthma Social History Smoking Status: Never smoker Second Hand Exposure: No; Do You Dip or Chew Tobacco: No; Hx Alcohol Use: No Hx Substance Use: No Preferred Language: Sami Communication Ability: Effective Visual Impairment: No Limitations Hearing Ability: Normal Dietary Supervisor Required: No Beliefs That Will Affect Care: None marital status: Current Living Situation: Spouse Current Living Situation Comment: Lives with current occupational status: retired How many Children do You have: 1 Other Information That Helps Us Care for You: No Feels Safe at Home: Yes Safety Concerns: Feels Safe At This Time Childhood Exposure to Second-Hand Smoke: No Dental Care, Regularly: No Physical Activity Frequency: 1-2 Times per Week Seatbelt Use: always Sunscreen Use: No Assistive Devices: BiPap, CPAP, Glasses, Oxygen - Continuous and Walker Review of Systems Review of Systems: All systems reviewed & are unremarkable except as noted in HPI & below Physical Exam Constitutional: + altered mental status and + frail appe aring; no acute distress Eyes: + anicteric sclerae; no corneal abnormal ity ENMT: BIPAP Neck: normal visual inspection and trachea midline Respiratory: normal respiratory effort Auscultation: lungs clear to auscultation bilaterally and + rales Cardiovascular: Rate/Rhythm: + bradycardic Heart Sounds: normal S1, normal S2 and + murmur Extremities: + AV fistula; no edema Musculoskeletal: Extremities: no cyanosis and no clubbing Skin: normal turgor; no lesions Neurologic: Motor/Sensory: no tremor and no asterixis Psychiatric: Orientation: + not alert and + not oriented x 3 Results & Data Vital Signs (Past 12 Hours) Vital Signs Pulse Pulse Resp BP Pulse Ox Pulse Ox O2 Del Method 04/11/24 07:56 64 22 97 04/11/24 04:00 66 18 129/60 93 BiPAP 04/11/24 04:00 93 04/11/24 03:18 75 21 95 04/11/24 02:38 72 14 134/69 96 Room Air, BiPAP 04/11/24 02:18 73 04/10/24 23:23 80 22 137/65 97 Room Air 04/10/24 22:33 82 04/10/24 21:53 84 22 146/78 H 93 Nasal Cannula 04/10/24 21:13 82 20 157/70 H 98 Room Air O2 Del Method O2 Flow Rate O2 Flow Rate 04/11/24 07:56 4 04/11/24 04:00 4 04/11/24 04:00 BiPAP 4 04/11/24 03:18 4 04/11/24 02:38 04/11/24 02:18 04/10/24 23:23 04/10/24 22:33 04/10/24 21:53 4 04/10/24 21:13 Laboratory Results Laboratory Results - last 24 hr 04/10/24 04/10/24 04/10/24 19:30 19:53 21:35 WBC 21.29 H RBC 3.97 L Hgb 12.5 Hct 40.1 MCV 101.0 H MCH 31.5 MCHC 31.2 L RDW Std Deviation 51.9 H RDW Coeff of Jared 14.0 Plt Count 150 MPV 9.9 Immature Gran % (Auto) 0.7 Neut % (Auto) 89.0 Lymph % (Auto) 4.1 Iroquois % (Auto) 5.4 Eos % (Auto) 0.5 Baso % (Auto) 0.3 Neut # (Auto) 18.97 H Lymph # (Auto) 0.87 L [place]quois # (Auto) 1.15 H Eos # (Auto) 0.10 Baso # (Auto) 0.06 Immature Gran # (Auto) 0.14 PT 10.6 INR 1.0 VBG pH 7.31 L VBG pCO2 66 H VBG pO2 31 VBG HCO3 33 VBG O2 Saturation < 60.0 VBG Base Excess 4.8 Sodium 134 L Potassium 5.4 H Chloride 90 L Carbon Dioxide 31 Anion Gap 13 H BUN 69 H Creatinine 8.34 H* Est Cr Clr Drug Dosing 5.8 eGFR 4.52 BUN/Creatinine Ratio 8.3 L Glucose 187 H POC Glucose Lactate 1.8 Calcium 9.6 Magnesium 2.6 H Total Bilirubin 0.4 AST 27 ALT 14 Alkaline Phosphatase 110 H Troponin I High Sens 36.8 H 37.3 H B-Natriuretic Peptide 575 H Total Protein 8.3 Albumin 4.1 Globulin 4.2 H Albumin/Globulin Ratio 1.0 Procalcitonin 1.15 H Adenovirus (PCR) Not Detected B. pertussis DNA (PCR) Not Detected B.parapertussis DNA PCR Not Detected C. pneumoniae DNA (PCR) Not Detected Coronavirus OC43 (PCR) Not Detected Coronavirus HKU1 (PCR) Not Detected Coronavirus 229E (PCR) Not Detected SARS-CoV-2 (PCR) Not Detected Coronavirus NL63 (PCR) Not Detected Human Metapneumovir PCR Not Detected Influenza Type A (PCR) Not Detected Influenza Type B (PCR) Not Detected M. pneumoniae (PCR) Not Detected Parainfluenza 1 (PCR) Not Detected Parainfluenza 2 (PCR) Not Detected Parainfluenza 3 (PCR) Not Detected Parainfluenza 4 (PCR) Not Detected RSV (PCR) Not Detected Entero/Rhino (PCR) Not Detected 04/10/24 04/10/24 04/11/24 23:04 23:21 01:22 WBC RBC Hgb Hct MCV MCH MCHC RDW Std Deviation RDW Coeff of Jared Plt Count MPV Immature Gran % (Auto) Neut % (Auto) Lymph % (Auto) [place]quois % (Auto) Eos % (Auto) Baso % (Auto) Neut # (Auto) Lymph # (Auto) [place]quois # (Auto) Eos # (Auto) Baso # (Auto) Immature Gran # (Auto) PT INR VBG pH 7.20 L 7.29 L VBG pCO2 45 70 H VBG pO2 40 32 VBG HCO3 18 34 VBG O2 Saturation 63.4 < 60.0 VBG Base Excess -10.2 4.8 Sodium Cancelled 136 Potassium Cancelled 4.7 Chloride Cancelled 92 L Carbon Dioxide Cancelled 31 Anion Gap Cancelled 13 H BUN Cancelled 77 H Creatinine Cancelled 9.57 H* D Est Cr Clr Drug Dosing Cancelled 5.1 eGFR Cancelled 3.84 BUN/Creatinine Ratio Cancelled 8.0 L Glucose Cancelled 125 H POC Glucose 202 H Lactate Calcium Cancelled 9.7 Magnesium Total Bilirubin AST ALT Alkaline Phosphatase Troponin I High Sens B-Natriuretic Peptide Total Protein Albumin Globulin Albumin/Globulin Ratio Procalcitonin Adenovirus (PCR) B. pertussis DNA (PCR) B.parapertussis DNA PCR C. pneumoniae DNA (PCR) Coronavirus OC43 (PCR) Coronavirus HKU1 (PCR) Coronavirus 229E (PCR) SARS-CoV-2 (PCR) Coronavirus NL63 (PCR) Human Metapneumovir PCR Influenza Type A (PCR) Influenza Type B (PCR) M. pneumoniae (PCR) Parainfluenza 1 (PCR) Parainfluenza 2 (PCR) Parainfluenza 3 (PCR) Parainfluenza 4 (PCR) RSV (PCR) Entero/Rhino (PCR) 04/11/24 04/11/24 04/11/24 02:36 06:09 06:12 WBC 15.58 H RBC 3.44 L Hgb 10.8 L Hct 34.5 L MCV 100.3 H MCH 31.4 MCHC 31.3 L RDW Std Deviation 51.8 H RDW Coeff of Jared 14.2 Plt Count 144 MPV 10.3 Immature Gran % (Auto) 0.3 Neut % (Auto) 79.8 Lymph % (Auto) 8.1 [place]quois % (Auto) 11.0 Eos % (Auto) 0.4 Baso % (Auto) 0.4 Neut # (Auto) 12.44 H Lymph # (Auto) 1.26 [place]quois # (Auto) 1.71 H Eos # (Auto) 0.06 Baso # (Auto) 0.06 Immature Gran # (Auto) 0.05 PT INR VBG pH VBG pCO2 VBG pO2 VBG HCO3 VBG O2 Saturation VBG Base Excess Sodium 136 Potassium 5.1 Chloride 94 L Carbon Dioxide 29 Anion Gap 13 H BUN 81 H Creatinine 9.71 H* Est Cr Clr Drug Dosing 4.9 eGFR 3.77 BUN/Creatinine Ratio 8.3 L Glucose 136 H POC Glucose 135 H 134 H Lactate Calcium 9.3 Magnesium Total Bilirubin AST ALT Alkaline Phosphatase Troponin I High Sens B-Natriuretic Peptide Total Protein Albumin Globulin Albumin/Globulin Ratio Procalcitonin Adenovirus (PCR) B. pertussis DNA (PCR) B.parapertussis DNA PCR C. pneumoniae DNA (PCR) Coronavirus OC43 (PCR) Coronavirus HKU1 (PCR) Coronavirus 229E (PCR) SARS-CoV-2 (PCR) Coronavirus NL63 (PCR) Human Metapneumovir PCR Influenza Type A (PCR) Influenza Type B (PCR) M. pneumoniae (PCR) Parainfluenza 1 (PCR) Parainfluenza 2 (PCR) Parainfluenza 3 (PCR) Parainfluenza 4 (PCR) RSV (PCR) Entero/Rhino (PCR) Diagnostic Findings XR chest 1V portable TECHNIQUE: X-ray chest was performed in 1 view: AP portable projection. COMPARISON: 01/09/2024, 08/17/2023 FINDINGS: Prominent bilateral ruben with increased bronchovascular marking and possible cephalization. Moderate cardiomegaly. Previously noted opacity in the left lower zone shows interval resolution, Normal bilateral costophrenic angles. Degenerative changes involving the bones. No evidence of pneumothorax. IMPRESSION: 1. The above-mentioned finding could represent early pulmonary edema/congestive changes however possibility of infection cannot be entirely excluded. 2. Previously noted opacity in the left lower zone shows interval resolution, 3. Advise clinical correlation and follow-up. CT Abdomen and Pelvis Without Intravenous Contrast COMPARISON: No relevant prior studies available. FINDINGS: Lung bases: Unremarkable. No mass. No consolidation. ABDOMEN: Liver: Unremarkable. Gallbladder and bile ducts: Unremarkable. No calcified stones. No ductal dilation. Pancreas: Unremarkable. No ductal dilation. Spleen: Unremarkable. No splenomegaly. Adrenals: Unremarkable. No mass. Kidneys and ureters: Unremarkable. No obstructing stones. No hydronephrosis. Stomach and bowel: Diverticulosis without of diverticulitis. No obstruction. PELVIS: Appendix: No findings to suggest acute appendicitis. Bladder: Unremarkable. No stones. Reproductive: Unremarkable as visualized. ABDOMEN and PELVIS: Intraperitoneal space: Unremarkable. No free air. No significant fluid collection. Bones/joints: No acute fracture. No dislocation. Soft tissues: Postoperative changes midline anterior abdominal wall. Vasculature: Unremarkable. No abdominal aortic aneurysm. Lymph nodes: Unremarkable. No enlarged lymph nodes. IMPRESSION: No acute findings in the abdomen or pelvis. PG Care Time/CCT Total # of Minutes Spent Total Time Spent with Patient: Total time spent is greater than 50% in coordination of care (as documented) at patient's floor/unit and/or counseling patient: Coding Level of Care Code 38112 IN/OBS CONSULT LVL 5,80M Diagnoses End-stage renal disease on hemodialysis N18.6; Z99.2 Anemia D64.9 Anemia type: due to chronic kidney disease PNA (pneumonia) J18.9 Acute hyperkalemia E87.5 COPD, severe J44.9 Metabolic encephalopathy G93.41 (2) Anemia Anemia type: due to chronic kidney disease
[2024-04-11] MEDS ORDERED: NON-FORMULARY MEDICATION (Vit B,C-Iron Fum-Fa-D3-Zinc Ox [Prorenal] 8 mg iron-800 mcg-1,00 PO SCH (11:30)
--- NOTE | 2024-04-11 13:27 | Pharmacy Report ---
Pharmacy Glycemic Short Note 2 - Date of Service April 11, 2024 - Glycemic Short BSG Results (Last 24 hours): 04/10/24 04/10/24 04/10/24 19:53 23:04 23:21 Glucose 187 H Cancelled POC Glucose 202 H 04/11/24 04/11/24 04/11/24 01:22 02:36 06:09 Glucose 125 H 136 H POC Glucose 135 H 04/11/24 06:12 Glucose POC Glucose 134 H OUTPATIENT ANTIDIABETIC REGIMEN: * N/A ASSESSMENT: * SG is a 78 year old female who presents with acute respiratory failure likely secondary to pneumonia, CHF, and ESRD * Patient w/ reported history of T2DM, but does not take medications for it * Patient's A1c 6.6% on 02/21/24 * However, this result is likely somewhat unreliable in ESRD patients d/t interactions between the A1c analyzing technique and high levels of urea in ESRD, reduced RBC life span, iron deficiency anemia, and EPO administration. HbA1c > 7.5% in ESRD patient may overestimate the extent of hyperglycemia in ESRD patients. * Will be conservative with initial insulin dosing (SC bolus only at this time) * HD session today PLAN FOR INPATIENT GLYCEMIC CONTROL: * Hold outpatient oral diabetes medications * Basal insulin * hold * Bolus insulin * NovoLog per scale ACHS or Q6hrs while NPO * Goal Range: Low 120 mg/dL - High 160 mg/dL * Correction Factor: 30 mg/dL/unit * Nutritional / Prandial insulin per carb ratio of 1 unit per 10 grams CHO consumed
[2024-04-11 15:10] LABS: Base Excess VBG 0.1 mEq/L; HCO3 VBG 28 mmol/L; Oxygen Saturation VBG < 60.0 %; PCO2 VBG 60 mmHg (38-50); PO2 VBG 22 mmHg; pH VBG 7.28 (7.36-7.41)
[2024-04-11] MEDS: carvediloL 12.5 MG TAB PO SCH (15:20)
[2024-04-11] MEDS: amLODIPine BESYLATE 5 MG TAB PO SCH (15:20)
[2024-04-11] MEDS: PANTOprazole 40 MG TAB PO SCH (15:21)
[2024-04-11] MEDS: OLANZapine 5 MG TABLET PO SCH (15:21)
[2024-04-11] MEDS: INSULIN ASPART PER UNIT CHARGE SC SCH (15:23)
--- NOTE | 2024-04-11 15:49 | XRay Report ---
XR chest 2V PA/lateral CLINICAL HISTORY: f/u pna vs pulmonary edema/congestion COMPARISON STUDY: Chest CT January 09, 2024. Chest radiograph April 10, 2024. FINDINGS: There is no pneumothorax or pleural effusion. Cardiomegaly is again noted. There is no radi ographic evidence for pulmonary edema. No consolidation is identified to suggest pneumonia. Interstit ial thickening has slightly improved. IMPRESSION: 1. No acute cardiopulmonary findings. 2. Cardiomegaly. No evidence for pulmonary edema. ACT 112: Negative or not required by law. Electronically signed by: Cyrus Serna M.D. 04/11/2024 3:47 PM
[2024-04-11] MEDS: hydrALAZINE HCL 25 MG TAB PO SCH (15:51)
[2024-04-11] MEDS: busPIRone 5 MG TAB PO SCH (15:52)
[2024-04-11] MEDS: CYANOCOBALAMIN (B-12) 500 MCG TABLET PO SCH (15:52)
[2024-04-11] MEDS: GABAPENTIN 300 MG CAP PO SCH (15:52)
[2024-04-11] MEDS: VENLAFAXINE HCL XR 75 MG CAPXR PO SCH (15:52)
[2024-04-11] MEDS: SODIUM ZIRCONIUM CYCLOSILICATE 10 GM PACKET PO SCH (15:53)
[2024-04-11] MEDS: ACETAMINOPHEN 325 MG TAB PO PRN (15:57)
[2024-04-11] MEDS: HEPARIN SOD 5,000 UNIT/0.5 ML VIAL SQ SCH (15:58)
[2024-04-11] MEDS: oxyCODONE HCL IR 5 MG TAB (IMMEDIATE RELEASE) PO PRN (20:20)
[2024-04-11] MEDS: LEVOTHYROXINE SODIUM 100 MCG TABLET PO SCH (20:21)
[2024-04-11] MEDS: LORazepam 0.5 MG TAB PO PRN (22:38)
[2024-04-11] MEDS: CEFEPIME 1000MG 1,000 MG/10 ML SYR IV SCH (22:51)
[2024-04-12 06:24] LABS: Base Excess VBG 0.1 mEq/L; HCO3 VBG 28 mmol/L; Oxygen Saturation VBG < 60.0 %; PCO2 VBG 60 mmHg (38-50); PO2 VBG 36 mmHg; pH VBG 7.28 (7.36-7.41)
[2024-04-12 06:38] LABS: Basophils # (auto) 0.06 K/uL (0.00-0.20); Basophils % (auto) 0.6 %; Eosinophils % (auto) 2.1 %; Hematocrit (blood only) 33.8 % (37.0-47.0); Hemoglobin 10.3 g/dl (12.0-16.0); Immature Granulocytes # (auto) 0.05 K/uL (0.01-0.20); Immature Granulocytes % (auto) 0.5 %; Lymphocytes # (auto) 1.64 K/uL (1.20-3.40); Lymphocytes % (auto) 17.1 %; Mean Corpuscular Hemoglobin 31.3 pg (25.0-34.0); Mean Corpuscular Hgb Conc 30.5 g/dL (32.0-36.0); Mean Corpuscular Volume 102.7 fL (80.0-100.0); Mean Platelet Volume 10.4 fL (9.4-12.4); Monocytes # (auto) 1.36 K/uL (0.11-0.59); Monocytes % (auto) 14.2 %; Neutrophils # (auto) 6.27 K/uL (1.40-6.50); Neutrophils % (auto) 65.5 %; Platelet Count 145 K/uL (130-400); RDW Coefficient of Variation 14.6 % (11.5-14.5); RDW Standard Deviation 55.3 fL (36.4-46.3); Red Blood Count 3.29 M/uL (4.20-5.40); White Blood Count 9.58 K/ul (4.8-10.8)
[2024-04-12 06:51] LABS: Albumin Level 3.3 gm/dl (3.4-5.0); BUN Creatinine Ratio 7.7 (10-20); Bilirubin Direct 0.1 mg/dl (0-0.2); Bilirubin,Total 0.3 mg/dl (0.2-1.0); Calcium 8.9 mg/dl (8.6-10.3); Creatinine Clr Calc Pharmacy 8.3 ml/min; Magnesium 2.2 mg/dl (1.7-2.4); Potassium 3.5 mmol/L (3.5-5.1); Total Protein 6.8 gm/dl (6.0-8.3)
[2024-04-12 07:51] VITALS: TEMP 98.2
--- NOTE | 2024-04-12 07:56 | Hospitalist Progress Note ---
Date of Service April 12, 2024 Assessment & Plan (1) Acute respiratory failure with hypoxia and hypercarbia: Plan: Acute hypoxic respiratory failure with hypoxia and hypercarbia Multifactorial: * 2nd HDESRD, CHF, and possible pneumonia as noted below. * Weight is UP 100.5-104.6kg from admission (dry weight ~90kg). On baseline O2 2-3L at home WBC 21.1k w/ L shift. Procalcitonin 1.15. VBG with pH 7.2 with elevated CO2. BiPAP placed, continued. Repeat VBG this afternoon planned Cefepime IV abx continued WBC improving, 15k on repeat. Remains AFEBRILE Blood cultures pending, follow. Urine cx if able to produce Nephrology consulted for volume overload/HD for today -- attempting 4L w/ HD as BP allows. Supplemental O2 to maintain sats, titrate as able to baseline 2-3L home use PT/OT consults placed for completeness 04/12 Cefepime IV continued. WBC wnl on repeat. Blood cultures NGTD x 24 hours. HD on 04/11 for 2.4L, weight 1005kg--> 95.8kg BNP 575--> 351, HD per nephrology appreciated Remains w/ CO2 retention, BiPAP use encouraged while napping/sleeping (only wore for 4 hours last evening). 98% on 3L NC Electrolytes stable at present, continues usual HD medications (2) Acute heart failure with preserved ejection fraction: Plan: Suspect acute on chronic HFpEF contributing to #1, weights UP as above. BNP 570s Nephrology consulted and HD as outlined Repeat CXR ordered following HD for evaluation Continue home meds w/ coreg 12.5mg, amlodipine 10mg, hydralazine 25mg TID (holding prior to HD session to prevent drop in BP) Monitor volume status w/ HD, appreciate nephrology consult/assistance Monitor volume status (3) PNA (pneumonia): Plan: Possible, PNA vs CHF exacerbation as noted CXR noting volume overload without pulmonary edema. HD as above. WBC w/ leukocytosis with neutrophil predominance, procalcitonin elevation Continues on Cefepime, f/u Chest xray as above. No hx MRSA, defer Vancomycin Pulmonary toilet added with incentive spirometry BiPAP/O2 to maintain sats as above, baseline 2-3L O2 Repeat VBG in AM *Abd pain resolving w/ HD/taking off fluid w/ HD and will monitor UA as able to collect (4) End-stage renal disease on hemodialysis: Plan: ESRD, dialysis dependent Wednesday//Wednesday Patient presents with fatigue, volume overload without pulmonary edema, and mild hyperkalemia which was treated with IV calcium gluconate, insulin/dextrose, Lokelma, sodium bicarb given for hyperkalemia Nephrology consulted. - Lokemla resumed daily as taking at home to prevent hyperkalemia HD for today, attempting 4L w/ UF as able Appreciate continued assistance w/ nephrology for HD/volume status UA if able to obtain/making any urine (reports she has NOT) (5) CHF (congestive heart failure): Plan: HD for UF as outlined, monitor volume status following (6) Restrictive lung disease: (7) Cardiomyopathy: (8) B12 deficiency: Plan: prior checked last month and borderline -- 500mcg PO daily started and would continue at dc Plan Other chronic medical issues Type II DM Last A1c well-controlled and continues SSI while inpatient. Adjustments as needed Continue SSI, goal BSG [id number] Hypertension - Chronic/stable, fluctuations w/ HD as above Continue amlodipine, Coreg, hydralazine per nephrology w/ HD TASH/restrictive lung disease/sleep disordered breathing BiPAP at bedtime Due to acute respiratory acidosis patient is placed on BiPAP continuous with VBG every 4 hours until improved. Remains on BiPAP, HD as above - Repeat VBG ordered as outlined and O2 to maintain sats Dispo: continued inpatient stay, HD for volume status/BiPAP for acidosis and will convert to NC if improved on repeat VBG. Continues on Cefepime and CXR following HD for eval. PT/OT consults placed, CM to follow if unable to return home safely. ?outpt palliative consult/referral pending response to treatment? Admission and Anticipated Discharge Date Admission Date: April 10, 2024 Results & Data Results & Data Vital Signs (Past 12 Hours) Vital Signs Temp Pulse Pulse Pulse Resp BP Pulse Ox 04/12/24 07:49 36.8 C 68 16 114/57 L 98 04/12/24 03:15 36.6 C 76 18 107/71 94 04/12/24 02:53 61 23 97 04/12/24 00:00 64 04/11/24 22:40 36.8 C 62 17 111/58 L 98 04/11/24 22:29 63 24 98 04/11/24 20:00 O2 Del Method O2 Flow Rate 04/12/24 07:49 Nasal Cannula 3 04/12/24 03:15 Nasal Cannula 3 04/12/24 02:53 4 04/12/24 00:00 04/11/24 22:40 Nasal Cannula 3 04/11/24 22:29 4 04/11/24 20:00 Nasal Cannula 3 PG Care Time/CCT Total # of Minutes Spent Total Time Spent with Patient: Total time spent is greater than 50% in coordination of care (as documented) at patient's floor/unit and/or counseling patient: Coding Diagnoses Acute respiratory failure with hypoxia and hypercarbia J96.01; J96.02 Acute heart failure with preserved ejection fraction I50.31 PNA (pneumonia) J18.9 End-stage renal disease on hemodialysis N18.6; Z99.2 Acute systolic congestive heart failure I50.9 Heart failure chronicity: unspecified Heart failure type: unspecified Restrictive lung disease J98.4 Cardiomyopathy I42.9 B12 deficiency E53.8 (5) CHF (congestive heart failure) Heart failure chronicity: unspecified Heart failure type: unspecified Qualified Code(s): I50.9 - Heart failure, unspecified
--- NOTE | 2024-04-12 10:16 | Nephrology Progress Note ---
Date of Service April 12, 2024 Assessment & Plan (1) End-stage renal disease on hemodialysis: (2) Anemia: (3) PNA (pneumonia): (4) Acute hyperkalemia: (5) COPD, severe: (6) Metabolic encephalopathy: Plan ESRD on HD TTS. Completed treatment yesterday with adequate UF and clearance. Volume status acceptable. Electrolytes controlled. Outpatient Rx: TTS 3.5 hours, 180 optiflux, 350/800, 2K 2 calcium. EDW 89 kg. Left treatment on 04/08 at 90.6 kg. Shirley is maintained on Micera monthly as an outpatient. Iron profile acceptable. Medications are appropriately dosed for kidney function. Remains on cefepime. Hold carvedilol pre HD. Continue sodium zirconium cyclosilicate on non dialysis days. Calcium acetate QAC. Renal diet. Admission and Anticipated Discharge Date Admission Date: April 10, 2024 Subjective No acute events overnight. Shirley feels well this AM. She tolerated HD well yesterday. She is breathing comfortably. No fevers or chills. Review of Systems Review of Systems: All systems reviewed & are unremarkable except as noted in HPI & below Physical Exam Constitutional: + altered mental status and + frail appe aring; no acute distress Eyes: + anicteric sclerae; no corneal abnormal ity Neck: normal visual inspection and trachea midline Respiratory: normal respiratory effort Auscultation: lungs clear to auscultation bilaterally and + rales Cardiovascular: Rate/Rhythm: + bradycardic Heart Sounds: normal S1, normal S2 and + murmur Extremities: + AV fistula; no edema Musculoskeletal: Extremities: no cyanosis and no clubbing Skin: normal turgor; no lesions Neurologic: Motor/Sensory: no tremor and no asterixis Psychiatric: Orientation: + not alert and + not oriented x 3 Results & Data Vital Signs (Past 12 Hours) Vital Signs Temp Pulse Pulse Pulse Resp BP Pulse Ox 04/12/24 07:49 36.8 C 68 16 114/57 L 98 04/12/24 03:15 36.6 C 76 18 107/71 94 04/12/24 02:53 61 23 97 04/12/24 00:00 64 04/11/24 22:40 36.8 C 62 17 111/58 L 98 04/11/24 22:29 63 24 98 O2 Del Method O2 Flow Rate 04/12/24 07:49 Nasal Cannula 3 04/12/24 03:15 Nasal Cannula 3 04/12/24 02:53 4 04/12/24 00:00 04/11/24 22:40 Nasal Cannula 3 04/11/24 22:29 4 Laboratory Results Laboratory Results - last 24 hr 04/11/24 04/11/24 04/12/24 15:00 21:01 05:34 WBC 9.58 RBC 3.29 L Hgb 10.3 L Hct 33.8 L MCV 102.7 H MCH 31.3 MCHC 30.5 L RDW Std Deviation 55.3 H RDW Coeff of Jared 14.6 H Plt Count 145 MPV 10.4 Immature Gran % (Auto) 0.5 Neut % (Auto) 65.5 Lymph % (Auto) 17.1 [place] % (Auto) 14.2 Eos % (Auto) 2.1 Baso % (Auto) 0.6 Neut # (Auto) 6.27 Lymph # (Auto) 1.64 [place] # (Auto) 1.36 H Eos # (Auto) 0.20 Baso # (Auto) 0.06 Immature Gran # (Auto) 0.05 VBG pH 7.28 L 7.28 L VBG pCO2 60 H 60 H VBG pO2 22 36 VBG HCO3 28 28 VBG O2 Saturation < 60.0 < 60.0 VBG Base Excess 0.1 0.1 Sodium 137 Potassium 3.5 D Chloride 98 Carbon Dioxide 28 Anion Gap 11 BUN 43 H D Creatinine 5.55 H* D Est Cr Clr Drug Dosing 8.3 eGFR 7.37 BUN/Creatinine Ratio 7.7 L Glucose 98 POC Glucose 211 H Calcium 8.9 Magnesium 2.2 Total Bilirubin 0.3 Direct Bilirubin 0.1 AST 27 ALT 10 Alkaline Phosphatase 73 B-Natriuretic Peptide 351 H Total Protein 6.8 Albumin 3.3 L Folate > 22.30 04/12/24 07:31 WBC RBC Hgb Hct MCV MCH MCHC RDW Std Deviation RDW Coeff of Jared Plt Count MPV Immature Gran % (Auto) Neut % (Auto) Lymph % (Auto) [place] % (Auto) Eos % (Auto) Baso % (Auto) Neut # (Auto) Lymph # (Auto) [place] # (Auto) Eos # (Auto) Baso # (Auto) Immature Gran # (Auto) VBG pH VBG pCO2 VBG pO2 VBG HCO3 VBG O2 Saturation VBG Base Excess Sodium Potassium Chloride Carbon Dioxide Anion Gap BUN Creatinine Est Cr Clr Drug Dosing eGFR BUN/Creatinine Ratio Glucose POC Glucose 125 H Calcium Magnesium Total Bilirubin Direct Bilirubin AST ALT Alkaline Phosphatase B-Natriuretic Peptide Total Protein Albumin Folate PG Care Time/CCT Total # of Minutes Spent Total Time Spent with Patient: Total time spent is greater than 50% in coordination of care (as documented) at patient's floor/unit and/or counseling patient: Coding Level of Care Code 33529 SUB INP/OBS CARE 3/50MIN Diagnoses End-stage renal disease on hemodialysis N18.6; Z99.2 Anemia D64.9 Anemia type: due to chronic kidney disease PNA (pneumonia) J18.9 Acute hyperkalemia E87.5 COPD, severe J44.9 Metabolic encephalopathy G93.41 (2) Anemia Anemia type: due to chronic kidney disease
[2024-04-12 11:21] VITALS: BP 105/51; RESP 18; O2SAT 99
--- NOTE | 2024-04-12 12:11 | Pharmacy Report ---
Pharmacy Glycemic Short Note 2 - Date of Service April 12, 2024 - Glycemic Short BSG Results (Last 24 hours): 04/11/24 04/12/24 04/12/24 21:01 05:34 07:31 Glucose 98 POC Glucose 211 H 125 H 04/12/24 11:26 Glucose POC Glucose 218 H OUTPATIENT ANTIDIABETIC REGIMEN: * N/A ASSESSMENT: 04/12: * Shirley received 4 units of insulin yesterday, all bolus. BSGs were 134-136-211 mg/dL. Patient did have HD yesterday. * Fasting BSG was 125 mg/dL this AM. Continue without basal insulin. * Postprandial BSGs increasing significantly following carb consumption. Will tighten Novolog this afternoon. 04/11: * SG is a 78 year old female who presents with acute respiratory failure likely secondary to pneumonia, CHF, and ESRD * Patient w/ reported history of T2DM, but does not take medications for it * Patient's A1c 6.6% on 02/21/24 * However, this result is likely somewhat unreliable in ESRD patients d/t interactions between the A1c analyzing technique and high levels of urea in ESRD, reduced RBC life span, iron deficiency anemia, and EPO administration. HbA1c > 7.5% in ESRD patient may overestimate the extent of hyperglycemia in ESRD patients. * Will be conservative with initial insulin dosing (SC bolus only at this time) * HD session today PLAN FOR INPATIENT GLYCEMIC CONTROL: * Basal insulin * HOLD * Bolus insulin * NovoLog per scale ACHS or Q6hrs while NPO * Goal Range: Low 110 mg/dL - High 140 mg/dL * Correction Factor: 20 mg/dL/unit * Nutritional / Prandial insulin per carb ratio of 1 unit per 7 grams CHO consumed
--- NOTE | 2024-04-12 12:39 | Discharge Summary ---
Discharge Summary Date of Service April 12, 2024 Principal Dx & Hospital Course #1 = Principal Diagnosis (1) Acute respiratory failure with hypoxia and hypercarbia: Acute hypoxic respiratory failure with hypoxia and hypercarbia Multifactorial: * 2nd HDESRD, CHF, and possible pneumonia as noted below. * Weight UP 100.5-104.6kg from admission (dry weight ~90kg). On baseline O2 2- 3L at home WBC 21.1k w/ L shift on admission, procalcitonin 1.15 and pH 7.3 with elevated CO2 66 and placed on BiPAP once further elevated to 70 with improvement in pCO2 to 60 CXR w/ concerns for possible pneumonia and given leukocytosis with increased O2 demands/pre-hospital hypoxia, was placed on Cefepime IV abx and blood cultures obtained. Nephrology consulted and dialyzed on 04/11 for 2.4L with weights to 95.8kg, leukocytosis resolved and Shelvia much more responsive and reported breathing back to baseline BNP 575--> 351, on baseline 3L NC Discussed with nephrology and given breathing back to baseline/volume status acceptable and acceptable electrolyte, ok for discharge and to resume outpatient HD schedule, Dr Patrick will notify HD center. Continued use of BiPAP encouraged (used 4 hours overnight) and discussed with her significant other to encourage continued use and with napping to prevent worsened CO2 retention. DC on Levaquin 250mg qdaily for another 5 days per renal function to complete 7 day course. Cleared by PT to return home, CM to offer HH services as desired (2) Acute heart failure with preserved ejection fraction: Suspected acute on chronic HFpEF contributing to #1, weights UP as above. BNP 570s Nephrology consulted and HD as with improvement in breathing following. Continue home meds w/ coreg 12.5mg, amlodipine 10mg, hydralazine 25mg TID (holding prior to HD session to prevent drop in BP) Resume outpt HD, low salt diet and continued use of BiPAP as above recommended If making urine (not reported) could consider diamox to assist w/ CO2 retention as well (3) PNA (pneumonia): Possible, PNA vs CHF exacerbation as noted CXR noting volume overload without pulmonary edema. HD as above. WBC w/ leukocytosis with neutrophil predominance, procalcitonin elevation and abx as outlined with Cefepime with improvement in breathing and back to baseline oxygen requirement with resolution in leukocytosis and blood cultures remaining negative Sent on Levaquin (renal dosed) to complete course. (4) End-stage renal disease on hemodialysis: ESRD, dialysis dependent Wednesday//Wednesday mild hyperkalemia on admission which was treated with IV calcium gluconate, insulin/dextrose, Lokelma, sodium bicarb given for hyperkalemia. Lokelma resumed daily to prevent issues and nephrology consulted and underwent HD 04/11 for UF 2.4L as noted and to resume usual schedule at co. (5) CHF (congestive heart failure): HD for UF as outlined w/ improvement in volume status/weights. (6) Restrictive lung disease: continue BiPAP (7) Cardiomyopathy: continue home medications (8) B12 deficiency: prior checked last month and borderline -- 500mcg PO daily started and rec'd for OTC continued at discharge Plan Other chronic medical issues Type II DM Last A1c well-controlled and continues SSI while inpatient. Adjustments as needed Continue SSI, goal BSG 405841. BSGs acceptable while inpatient Hypertension - Chronic/stable, fluctuations w/ HD as above Continue amlodipine, Coreg, hydralazine per nephrology w/ HD TASH/restrictive lung disease/sleep disordered breathing BiPAP at bedtime, had placed on admission for acute resp failure w/ hypercarbia w/ improvement in CO2 but continued use at discharge recommended Dispo: discharged home on Levaquin to complete course for PNA, encouraged increased BiPAP use at home and to resume outpt HD schedule Notes For Next Care Provider Encourage increased compliance with BiPAP for CO2 retention Consideration for diamox if making any urine can be considered as well for CHF/CO2 retention Dr Patrick to arrange for resumption of outpt HD sessions CM offered HH but patient back to baseline/declined but can revisit as desired Medication Changes From Visit Levaquin 250mg PO daily for another 5 days for total 7 days treatment Recs for OTC B12 supplementation for low level last month given chronic anemia. Admission HPI Per Admitting Provider Mrs. Patrick is a 78-year-old female with a past medical history of CAD, hypothyroidism, DM 2, hypertension, CHF, depression/anxiety, type II DM, ESRD on dialysis presents with weakness, shortness of breath, hyperkalemia who presents feeling fatigued tired more rundown than normal and with reported prehospital hypoxia. Seen with family at the bedside. Has had generalized weakness and fatigue over the last day. Much worse today than yesterday. Some shortness of breath but is currently on her baseline 3 L of oxygen and comfortable laying in bed. Patient reports she feels much more tired and washed out than typical even though she is normally tired before her dialysis sessions on Wednesday and feels her worst on Wednesday. Does have some chills and some abdominal pain which is new and unusual for her. She makes very little to no urine and has had UTIs in the past with no warning symptoms. Denies chest pain, chest pressure, shortness of breath at time of bedside evaluation and difficulty breathing. Denies nausea/vomiting. She has had an okay appetite. Has had muscle twitches which tend to happen prior to her dialysis sessions, BUN is 69. No tobacco/alcohol use Denies antibiotic allergies CODE STATUS: DNR/DNI Admission Exam Per Admitting Provider General: Somnolent, awakens and answer some questions before falling back asleep. Oriented to name and place. Cooperative HEENT: Atraumatic, normocephalic. Vision and hearing grossly intact Pulm: Diminished in the bases with some basilar crackles but otherwise clear symmetrical chest rise. No increased work of breathing. No respiratory distress. Cardiac: RRR, -mrg. Radial pulses intact and symmetrical. Abdominal: Tender to palpation at the umbilicus and slightly to the left lower quadrant. No rebound/involuntary guarding. Extremities: Moves upper and lower extremities equally. Lower extremities with pitting ankle edema. Right arm with AV fistula in place with good thrill. Discharge Exam General: 78 yo female sitting up in bed in HD, significant other in room, patient reporting feeling MUCH better, much more alert, back on baseline O2 3L via NC, no tachypnea/cough alert to person/place/year, cooperative but fatigued appearing, +frail Head atraumatic, normocephalic, mmm, trachea midline Resp: even/unlabored but diminished in the bases with associated crackles (improved air entry), no wheezing, on NC CV: RRR, no significant m/r/g, trace LLE edema>RLE (at baseline per patient), calves nontender, pulses present. R arm AV fistula, +bruit GI: +BS, nontender : no marsh MSK/Neuro: generalized weakness but nonfocal (IMPROVED), able to follow commands, no slurred speech/facial droop, NOT confused Psych: alert/oriented to person/place/year Discharge Plan Discharge Items Patient Disposition: Home - Self-Care Reason For Visit: HYPERKALEMIA, FATIGUE Discharge Diagnosis: Pneumonia, volume overload Goals: You have been hospitalized for an acute medical problem. During your stay at [facility], we have made an effort to correct the problem that brought you to the hospital while keeping you as comfortable as possible. Medications were used to bring your condition under control and your discharge instructions will include directions for any medications you should take after leaving the hospital. Please make sure you see your Primary Care Provider as part of your follow up plan. Activity: Resume your previous activity Non-emergency contact: Primary Care Provider and Communications Maintainer Call non-emergency contact if: you have any medication questions, your symptoms worsen, your pain is not controlled and you have a fever Follow-up/Referrals: Julito Burt MD [Primary Care Provider] - 04/18/24 3:00 pm (Hospital follow up scheduled April 18 at 3:00) Hugo Patrick DO [Physician] - 04/14/24 1:20 pm (Hospital follow up scheduled April 14 at 1:[address] Patrick) Diet: Carb Consistent or DM2, Dialysis Renal and Heart Healthy Addtl Attending Provider Instructions: You have been hospitalized for weakness/fatigue and increased shortness of b reath and found to have concerns for pneumonia as well as volume overload/weight gain which we took off with dialysis with improvement and treated you with IV antibiotics. Blood cultures are negative and white count is NORMALIZED. We are sending you on LEVAQUIN to complete course for pneumonia and I had the nurse provide a dose to you prior to discharge and given your renal function this is to be taken ONCE daily FIVE more doses to complete the course. Please continue to use your BiPAP as much as possible to prevent carbon dioxide retention which has improved but can worsen your breathing status if not using. Please continue dialysis as previously receiving. Stick to a renal diet/low salt. Please follow up with primary care/nephrology as discussed at discharge to monitor your status. It has been a pleasure being a part of the medical team providing for you while you have been in the hospital. Take care! Pending Studies at Discharge: Yes (Blood cultures -- no growth to date) Stand-Alone Forms: My [facility] [employer], Smoking Cessation Medications and DC Order Prescriptions: New ciprofloxacin HCl 250 mg Tablet 250 mg PO Q24H Qty: 5 0RF cyanocobalamin (vitamin B-12) 500 mcg Tablet 500 mcg PO QAM Qty: 30 0RF Continued cholecalciferol (vitamin D3) 50 mcg (2,000 unit) capsule 50 mcg PO DAILY Qty: 90 3RF ondansetron 8 mg tablet,disintegrating 8 mg PO Q8H PRN (Reason: Nausea) Qty: 90 5RF amlodipine 10 mg tablet 10 mg PO DAILY Qty: 90 3RF carvedilol [Coreg] 12.5 mg tablet 12.5 mg PO BID Qty: 180 3RF lactulose 10 gram/15 mL solution 15 ml PO DAILY PRN (Reason: Constipation) Qty: 1350 3RF buspirone 5 mg tablet 5 mg PO BID Qty: 180 3RF pantoprazole 40 mg tablet,delayed release (DR/EC) 40 mg PO BID 90 Days Qty: 180 3RF venlafaxine 75 mg capsule,extended release 24hr 75 mg PO DAILY Qty: 90 3RF olanzapine 10 mg tablet See Rx Instructions PO BID Qty: 90 3RF Rx Instructions: 1/2 tab orally twice a day levothyroxine 100 mcg tablet 100 mcg PO QPM Qty: 90 3RF gabapentin 300 mg capsule 300 mg PO 3XWK Qty: 36 1RF Rx Instructions: Wednesday, , wednesday after dialysis oxycodone 5 mg tablet 2.5 mg PO BID PRN (Reason: pain) Qty: 30 0RF Rx Instructions: Supervising MD: Dr. Burt LOVELY: [id number] License #: [id number] lorazepam 1 mg tablet 0.5 mg PO BID PRN (Reason: anxiety) Qty: 30 0RF ProRenal 8 mg iron-800 mcg-1,000 unit tablet 1 tab PO QDL calcium acetate 667 mg Tablet 667 mg PO UD Rx Instructions: 1 cap with every meal and 1 cap with snacks hydralazine 25 mg tablet 25 mg PO TID sodium zirconium cyclosilicate 10 gram powder in packet 10 g PO DAILY Qty: 30 5RF No Action (DME) lancets [OneTouch Delica Lancets] 33 gauge misc See Rx Instructions .ROUTE .MEDSUPPLY Qty: 100 3RF Rx Instructions: use to test twice daily (DME) OneTouch Verio test strips Strip See Rx Instructions .ROUTE .MEDSUPPLY Qty: 300 3RF Rx Instructions: test twice daily E11.9 (DME) blood-glucose meter [OneTouch Verio Meter] [facility] [place] See Rx Instructions .ROUTE .MEDSUPPLY Qty: 1 0RF Rx Instructions: As directed E11.9 (DME) Oxygen Home Liters Per Minute See Rx Instructions .ROUTE .MEDSUPPLY Qty: 1 0RF Rx Instructions: 3 liters continuously Discharge Orders: Discharge Order (Routine); Ordered 04/12/24 Ordered By: Jennifer Ochoa Admission Data Admit Date/Time: 04/10/24 21:52 Attending Provider: Adolfo Trujillo Admit Provider: Omar Mahajan Primary Care Provider: Julito Burt Other Providers: Maegan Ortega Fahima Other Interventions: Discharge Summary Assessment (RN) Last Done: 04/12/24 13:50 Hospital Stay Data Consultations 04/10/24 21:24 ED Decision to Admit Stat 04/11/24 03:21 Consult Nephrology Routine Diagnostic Imagining Performed Chest X-Ray 04/10/24 18:29 EXAM: XR chest 1V portable CLINICAL HISTORY: DYSPNEA KIS/PGM TECHNIQUE: X-ray chest was performed in 1 view: AP portable projection. COMPARISON: 01/09/2024, 08/17/2023 FINDINGS: Prominent bilateral ruben with increased bronchovascular marking and possible cephalization. Moderate cardiomegaly. Previously noted opacity in the left lower zone shows interval resolution, Normal bilateral costophrenic angles. Degenerative changes involving the bones. No evidence of pneumothorax. IMPRESSION: 1. The above-mentioned finding could represent early pulmonary edema/congestive changes however possibility of infection cannot be entirely excluded. 2. Previously noted opacity in the left lower zone shows interval resolution, 3. Advise clinical correlation and follow-up. Electronically signed by Zachery Watts 04-10-2024 8:[address] 04/10/24 18:43 Exam(s): CT HEAD Without Contrast EXAM: CT Head Without Intravenous Contrast CLINICAL HISTORY: Reason for exam: weakness. TECHNIQUE: Axial computed tomography images of the head/brain without intravenous contrast. CTDI is 36 mGy and DLP is 624 mGy-cm. Automated exposure control was utilized for the study. A dose lowering technique was utilized adhering to the principles of ALARA. COMPARISON: No relevant prior studies available. FINDINGS: Brain: No intracranial hemorrhage, mass-effect, or cerebral edema. Global parenchymal atrophy. Periventricular and subcortical low attenuation which is nonspecific but favored to represent chronic microvascular ischemic changes. Ventricles: Unremarkable. Bones/joints: Unremarkable. No fracture. Soft tissues: Unremarkable. Sinuses: No acute sinusitis. Mastoid air cells: Unremarkable as visualized. IMPRESSION: 1. No acute intracranial abnormality. Electronically signed by: Guzman Foley MD 04/10/24 19:46 PM Abdomen/Pelvis CT 04/10/24 21:53 Exam(s): CT ABDOMEN + PELVIS Without Contrast EXAM: CT Abdomen and Pelvis Without Intravenous Contrast CLINICAL HISTORY: Reason for exam: abdominal pain. TECHNIQUE: Axial computed tomography images of the abdomen and pelvis without intravenous contrast. Automated exposure control was utilized for the study. A dose lowering technique was utilized adhering to the principles of ALARA. COMPARISON: No relevant prior studies available. FINDINGS: Lung bases: Unremarkable. No mass. No consolidation. ABDOMEN: Liver: Unremarkable. Gallbladder and bile ducts: Unremarkable. No calcified stones. No ductal dilation. Pancreas: Unremarkable. No ductal dilation. Spleen: Unremarkable. No splenomegaly. Adrenals: Unremarkable. No mass. Kidneys and ureters: Unremarkable. No obstructing stones. No hydronephrosis. Stomach and bowel: Diverticulosis without of diverticulitis. No obstruction. PELVIS: Appendix: No findings to suggest acute appendicitis. Bladder: Unremarkable. No stones. Reproductive: Unremarkable as visualized. ABDOMEN and PELVIS: Intraperitoneal space: Unremarkable. No free air. No significant fluid collection. Bones/joints: No acute fracture. No dislocation. Soft tissues: Postoperative changes midline anterior abdominal wall. Vasculature: Unremarkable. No abdominal aortic aneurysm. Lymph nodes: Unremarkable. No enlarged lymph nodes. IMPRESSION: No acute findings in the abdomen or pelvis. Electronically signed by: Carlos Paz MD 04/11/24 01:43 AM Chest X-Ray 04/11/24 08:51 XR chest 2V PA/lateral CLINICAL HISTORY: f/u pna vs pulmonary edema/congestion COMPARISON STUDY: Chest CT January 09, 2024. Chest radiograph April 10, 2024. FINDINGS: There is no pneumothorax or pleural effusion. Cardiomegaly is again noted. There is no radiographic evidence for pulmonary edema. No consolidation is identified to suggest pneumonia. Interstitial thickening has slightly improved. IMPRESSION: 1. No acute cardiopulmonary findings. 2. Cardiomegaly. No evidence for pulmonary edema. ACT 112: Negative or not required by law. Electronically signed by: Cyrus Serna M.D. 04/11/2024 3:47 PM Discharge Instructions Given to Patient (Per Discharging Provider) You have been hospitalized for weakness/fatigue and increased shortness of breath and found to have concerns for pneumonia as well as volume overload/weight gain which we took off with dialysis with improvement and treated you with IV antibiotics. Blood cultures are negative and white count is NORMALIZED. We are sending you on LEVAQUIN to complete course for pneumonia and I had the nurse provide a dose to you prior to discharge and given your renal function this is to be taken ONCE daily FIVE more doses to complete the course. Please continue to use your BiPAP as much as possible to prevent carbon dioxide retention which has improved but can worsen your breathing status if not using. Please continue dialysis as previously receiving. Stick to a renal diet/low salt. Please follow up with primary care/nephrology as discussed at discharge to mon itor your status. It has been a pleasure being a part of the medical team providing for you while you have been in the hospital. Take care! Supervising Physician Co-Signing Physician Notes The patient was not seen by me. The chart was reviewed. Case discussed with RENO Bess. Agree with assessment and plan Total Time Total Time Spent Total Time Spent (In Minutes): 45 Coding Level of Care Code 28505 INP/OBS DISCH >30 MIN Diagnoses Acute respiratory failure with hypoxia and hypercarbia J96.01; J96.02 Acute heart failure with preserved ejection fraction I50.31 PNA (pneumonia) J18.9 End-stage renal disease on hemodialysis N18.6; Z99.2 Acute systolic congestive heart failure I50.9 Heart failure chronicity: unspecified Heart failure type: unspecified Restrictive lung disease J98.4 Cardiomyopathy I42.9 B12 deficiency E53.8
[2024-04-12 13:50] VITALS: PULSE 68
[2024-04-12] MEDS: CIPROFLOXACIN 250 MG TAB PO SCH (13:55)
--- NOTE | 2024-04-13 15:29 | Electrocardiogram Report ---
Test Reason : Blood Pressure : */* mmHG Vent. Rate : 85 BPM Atrial Rate : 85 BPM P-R Int : 218 ms QRS Dur : 96 ms QT Int : 354 ms P-R-T Axes : 41 -63 61 degrees QTcB Int : 421 ms Sinus rhythm with 1st degree A-V block Left anterior fascicular block Incomplete right bundle branch block Poor R wave progression, consider anterior MD vs. lead placement vs. LVH Abnormal ECG When compared with ECG of 22-Feb-2024 08:35, No significant change was found Confirmed by Jasson Davalos ([id number]) on 04/13/2024 3:28:48 PM Referred By: REFERRED SELF Confirmed By: Jasson Davalos
== END 2024-04-12 14:29 | disposition home or self-care (01) | DRG 640 ==
LOC: ED 18:20 → EDINP 21:52 → SUATTDRO 21:52 → EDINP 04-11 03:21 → 2E 04-11 14:26

== ENCOUNTER 2024-06-28 10:18 | Inpatient (IN) ==
--- NOTE | 2024-06-28 10:49 | Emergency Department Note ---
Impression & Plan RSV infection, Acute hyperkalemia, Acute dyspnea, Pulmonary vascular congestion, ESRD on dialysis, Hyperglycemia ED Provider Note HISTORY OF PRESENT ILLNESS: Patient is a 79-year-old female presenting with nasal congestion, sore throat and cough. Patient reports symptoms started 3 days ago. She states that she is coughing up green/yellow sputum. States she feels short of breath. Denies any chest pain. She wears 3 L nasal cannula at baseline for history of COPD. She denies any recent sick contact exposures or recent travel. Denies any abdominal pain, nausea or vomiting. Denies any notable fevers at home. She reports she just been feeling very unwell. Patient is an ESRD patient and gets dialysis on Wednesday//Wednesday. She does report that she went yesterday for dialysis. ROS: as above PHYSICAL EXAM: Constitutional: Patient appears in no acute distress. HENT: Head: Normocephalic and atraumatic. Eyes: EOMI, PERRL Mouth/Throat: Mucous membranes moist. Uvula midline. Neck: Trachea midline. Neck supple. Cardiovascular: RRR, No murmurs, rubs or gallops. Intact distal pulses. Pulmonary/Chest: No respiratory distress. Breath sounds clear and equal bilaterally. No wheezes or rales. Abdominal: Abdomen soft, no tenderness, rebound or guarding. Musculoskeletal: No edema, tenderness or deformity noted. Skin: Warm and dry. No rash, erythema, pallor or cyanosis Psychiatric: Appropriate mood and affect for situation. Neurological: Alert and keenly responsive. CN II-XII grossly intact, moving all extremities equally and fully. MDM: - Vitals signs showed hypertension. - History obtained via patient. History as above. - Chronic conditions affecting care: COPD (on 3L NC); GERD; DM-2; morbid obesity; CHF; ESRD on HD; cardiomyopathy; HLD; HTN; CAD - Differential diagnoses include, but are not limited to: Congestive heart failure; acute coronary syndrome; COPD/asthma exacerbation; pulmonary edema; pulmonary embolism; pneumonia; pneumothorax; viral syndrome - Order placed for continuous cardiac monitoring. At this time, monitor showed rate of 88 bpm with normal sinus rhythm, per my interpretation. - External medical records reviewed. Wound visit dated 06/16/2024 was reviewed. Patient is seen in their clinic for a stage III pressure ulcer on the buttocks. They note that the wounds are improved. - EKG interpreted by myself showed normal sinus rhythm. Rate 89 bpm. QT 354. No acute ischemic changes. - Laboratory workup interpreted by myself showed normal WBC; chronic anemia (Hgb 9.5); normal PT/INR; hyperkalemia (K 5.7); ESRD (Cr 6.54); hyperglycemia (glucose 386); elevated BNP (843); elevated troponin (50.8) - CXR shows pulmonary vascular congestion and cardiomegaly, per my interpretation. - Though patient's troponin is always elevated, its never been this high - Viral respiratory panel positive for RSV - Patient on her baseline 3L NC. - Discussed results with the patient. She was requesting to go home so that she could go for dialysis tomorrow. I did discuss with the patient potentially doing an ambulatory trial to make sure that she is safe to be discharged home. However, upon standing she became very weak and required multiple nurses to assist her back into bed and was unable to ambulate. Will admit to hospitalist service. - Discussion was had with geriatric case manager about patient's case and need for admission - Hospitalist consulted for admission - Patient admitted to [facility] hospitalist service for further evaluation and management. ASSESSMENT AND PLAN: Diagnosis: RSV infection; acute dyspnea; pulmonary vascular congestion; acute hyperkalemia; hyperglycemia; ESRD on hemodialysis Plan: Admit Past Med/Surg History Problem List (Updated 06/28/24 @ 15:09 by Yeni Murcia MD) Hyperglycemia (Acute) ESRD on dialysis (Acute) Pulmonary vascular congestion (Acute) Acute dyspnea (Acute) Acute hyperkalemia (Acute) RSV infection (Acute) Paroxysmal atrial tachycardia Stage II pressure ulcer of buttock (Acute) (HFpEF) heart failure with preserved ejection fraction Palpitation B12 deficiency PNA (pneumonia) Stage I pressure ulcer of buttock (Acute) Acute heart failure with preserved ejection fraction Acute respiratory failure with hypoxia and hypercarbia Acute hyperkalemia (Acute) Elevated troponin (Acute) Metabolic acidosis (Acute) Leukocytosis (Acute) AMS (altered mental status) (Acute) Earache on left Sore throat COPD, 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 Counseling regarding advanced directives and goals of care Palliative care by specialist AMS (altered mental status) (Acute) Confusion Metabolic encephalopathy Arthralgia of right foot Chronic kidney disease-mineral and bone disorder Hypertension Diabetes mellitus Anemia Coronary artery disease Hypothyroidism Vitamin D deficiency (Acute) Polyarthritis (Acute) Paresthesias (Acute) Obstructive sleep apnea (Acute) Insomnia (Acute) Dyslipidemia (Acute) Diabetic retinopathy (Acute) Depression with anxiety (Acute) Cardiomyopathy Restrictive lung disease (Acute) End-stage renal disease on hemodialysis (Acute) CHF (congestive heart failure) (Acute) Polymyalgia rheumatica Abnormal chest CT Hypertension (Acute) Weakness (Acute) Diverticulitis (Acute) Hiatal hernia with gastroesophageal reflux disease and esophagitis Early satiety Nausea & vomiting Type 2 diabetes mellitus with diabetic neuropathy (Acute) Right leg pain Leg edema, right Contusion of face Right facial numbness History of fracture of orbit (~06/20/21) Memory change Neuropathy Abnormal gait RLS (restless legs syndrome) Low back pain Seizure-like activity Elevated ferritin level Tremor Depression Anxiety Medical History Chronic respiratory failure with hypoxia Acute and chronic respiratory failure with hypoxia Acute and chronic respiratory failure with hypercapnia Weakness generalized Cellulitis of right leg Morbid obesity with BMI of 40.0-44.9, adult Diabetic eyes Hallucinations Fatigue Abnormal EKG Acute electrocardiogram changes Transaminitis Elevated troponin Myoclonus Acute hyperkalemia Hyperkalemia, diminished renal excretion Laceration of left lower extremity Hernia, hiatal GERD without esophagitis Macular puckering, bilateral Panniculitis Tubular adenoma of colon Hypertension History of thrombophlebitis Arthritis Surgical History History of tonsillectomy S/P repair of paraesophageal hernia History of nasal septoplasty History of cataract surgery History of bladder surgery S/P arteriovenous (AV) fistula creation S/P rotator cuff repair S/P hysterectomy H/O: hysterectomy Family History Mother Leukemia Cerebral aneurysm Hypertension Anxiety Diabetes Cancer Heart disease Grandmother Hypertension Father Osteoarthritis COPD (chronic obstructive pulmonary disease) Diabetes Hearing loss Sister Diabetes Myocardial infarction COPD (chronic obstructive pulmonary disease) Hypertension Brother Myocardial infarction Diabetes Cancer Stomach cancer Other No family history of bleeding disorder Denies family history of Ovarian cancer Prostate cancer Breast cancer Colorectal cancer Stroke Asthma Social History Smoking Status: Former smoker Second Hand Exposure: No; Do You Dip or Chew Tobacco: No; Hx Alcohol Use: No Hx Substance Use: No Preferred Language: Bengali Communication Ability: Effective Visual Impairment: No Limitations Hearing Ability: Normal Cloth Printer Helper Required: No Beliefs That Will Affect Care: None marital status: Current Living Situation: Spouse Current Living Situation Comment: Lives with current occupational status: retired How many Children do You have: 1 Feels Safe at Home: Yes Childhood Exposure to Second-Hand Smoke: No Dental Care, Regularly: No Physical Activity Frequency: 1-2 Times per Week Seatbelt Use: always Sunscreen Use: No Assistive Devices: Cane, Lift Chair, Oxygen - Continuous, Walker and Wheelchair Allergies Allergies Allergy/AdvReac Type Severity Reaction Status Date / Time lisinopril AdvReac Intermediate cough Verified 06/28/24 14:59 Home Meds Home Medications Medication Instructions Recorded Confirmed vit B complx, C-iron 8 mg-folic 1 tab PO QDL 02/27/20 06/28/24 acid 800 mcg-D3 1,000 unit-zinc tablet (ProRenal) calcium acetate 667 mg tablet 667 mg PO UD 12/17/20 06/28/24 hydralazine 25 mg tablet 25 mg PO TID 02/21/24 06/28/24 carvedilol 6.25 mg tablet 6.25 mg PO BID 06/28/24 06/28/24 cholecalciferol (vitamin D3) 50 50 mcg PO QAM 06/28/24 06/28/24 mcg (2,000 unit) capsule levothyroxine 100 mcg tablet 100 mcg PO QAM 06/28/24 06/28/24 olanzapine 10 mg tablet 5 mg PO BID 06/28/24 06/28/24 venlafaxine 75 mg capsule,extended 75 mg PO HS 06/28/24 06/28/24 release 24 hr Previous Rx's Medication Instructions Recorded lancets 33 gauge (OneTouch Delica #100 ea 11/27/20 Lancets) blood sugar diagnostic (OneTouch #300 ea 07/31/22 Verio test strips) blood-glucose meter (OneTouch #1 ea 07/31/22 Verio Meter) ondansetron 8 mg disintegrating 8 mg PO Q8H PRN Nausea #90 tabs 07/31/22 tablet Oxygen Home #1 ea 09/04/22 lactulose 10 gram/15 mL oral 15 ml PO DAILY PRN Constipation 08/13/23 solution #1,350 mL buspirone 5 mg tablet 5 mg PO BID #180 tabs 09/16/23 pantoprazole 40 mg tablet,delayed 40 mg PO BID 90 days #180 tabs 09/16/23 release sodium zirconium cyclosilicate 10 10 g PO DAILY #30 ea 02/23/24 gram oral powder packet lorazepam 1 mg tablet 0.5 mg (1/2 x 1 mg) PO BID PRN 03/22/24 anxiety #30 tabs gabapentin 300 mg capsule 300 mg PO 3XWK #36 caps 04/06/24 cyanocobalamin (vitamin B-12) 500 500 mcg PO QAM #30 tabs 04/12/24 mcg tablet diltiazem HCl 30 mg tablet 30 mg PO Q8H PRN palpitations #30 06/16/24 tabs Results & Data (ED) Vital Signs Vital Signs - 24 hr 06/28/24 10:24 06/28/24 10:36 06/28/24 10:38 Temperature 37.3 C Temperature Source Oral Pulse Rate 91 H 89 89 Pulse Rate [Apical] Pulse Rate from SpO2 Sensor 90 Respiratory Rate 20 22 Respiratory Effort / Characteristics Non-Labored Spontaneous Respiratory Depth Normal Blood Pressure 177/84 H Blood Pressure [Left Arm] Blood Pressure Mean 115 Blood Pressure Mean [Left Arm] Blood Pressure Position Sitting Pulse Oximetry 97 99 Oxygen Delivery Method Nasal Cannula Nasal Cannula Oxygen Flow Rate 3 3 Sepsis Recent Fever Within 48 Hours No Sepsis New/Unexplained Change in Mental Status No Sepsis Action Taken by Nursing No Action Required 06/28/24 10:47 06/28/24 10:59 06/28/24 11:00 Temperature Temperature Source Pulse Rate Pulse Rate [Apical] 88 Pulse Rate from SpO2 Sensor Respiratory Rate 20 Respiratory Effort / Characteristics Respiratory Depth Blood Pressure 180/91 H Blood Pressure [Left Arm] 194/93 H Blood Pressure Mean 142 Blood Pressure Mean [Left Arm] 126 Blood Pressure Position Pulse Oximetry 99 Oxygen Delivery Method Nasal Cannula Nasal Cannula Oxygen Flow Rate 3 3 Sepsis Recent Fever Within 48 Hours Sepsis New/Unexplained Change in Mental Status Sepsis Action Taken by Nursing 06/28/24 11:00 06/28/24 11:30 06/28/24 11:30 Temperature Temperature Source Pulse Rate 87 81 Pulse Rate [Apical] Pulse Rate from SpO2 Sensor 87 82 Respiratory Rate 16 18 Respiratory Effort / Characteristics Respiratory Depth Blood Pressure 166/79 H Blood Pressure [Left Arm] Blood Pressure Mean 129 Blood Pressure Mean [Left Arm] Blood Pressure Position Pulse Oximetry 99 98 Oxygen Delivery Method Nasal Cannula Nasal Cannula Oxygen Flow Rate 3 3 Sepsis Recent Fever Within 48 Hours Sepsis New/Unexplained Change in Mental Status Sepsis Action Taken by Nursing 06/28/24 11:54 06/28/24 12:00 06/28/24 12:06 Temperature Temperature Source Pulse Rate 80 123 H Pulse Rate [Apical] Pulse Rate from SpO2 Sensor 80 81 Respiratory Rate 20 17 Respiratory Effort / Characteristics Respiratory Depth Blood Pressure 169/83 H Blood Pressure [Left Arm] Blood Pressure Mean 111 Blood Pressure Mean [Left Arm] Blood Pressure Position Pulse Oximetry 99 99 Oxygen Delivery Method Nasal Cannula Nasal Cannula Oxygen Flow Rate 3 3 Sepsis Recent Fever Within 48 Hours Sepsis New/Unexplained Change in Mental Status Sepsis Action Taken by Nursing 06/28/24 12:30 06/28/24 12:30 06/28/24 12:57 Temperature Temperature Source Pulse Rate 83 78 Pulse Rate [Apical] Pulse Rate from SpO2 Sensor 82 78 Respiratory Rate 16 19 Respiratory Effort / Characteristics Respiratory Depth Blood Pressure 170/82 H Blood Pressure [Left Arm] Blood Pressure Mean 109 Blood Pressure Mean [Left Arm] Blood Pressure Position Pulse Oximetry 99 96 Oxygen Delivery Method Nasal Cannula Nasal Cannula Oxygen Flow Rate 3 3 Sepsis Recent Fever Within 48 Hours Sepsis New/Unexplained Change in Mental Status Sepsis Action Taken by Nursing 06/28/24 13:00 06/28/24 13:06 06/28/24 13:47 Temperature Temperature Source Pulse Rate 78 Pulse Rate [Apical] Pulse Rate from SpO2 Sensor 77 Respiratory Rate 17 Respiratory Effort / Characteristics Respiratory Depth Blood Pressure 169/80 H Blood Pressure [Left Arm] Blood Pressure Mean 123 Blood Pressure Mean [Left Arm] Blood Pressure Position Pulse Oximetry 99 Oxygen Delivery Method Nasal Cannula Nasal Cannula Oxygen Flow Rate 3 3 Sepsis Recent Fever Within 48 Hours Sepsis New/Unexplained Change in Mental Status Sepsis Action Taken by Nursing 06/28/24 13:57 06/28/24 14:12 06/28/24 14:17 Temperature Temperature Source Pulse Rate 76 75 75 Pulse Rate [Apical] Pulse Rate from SpO2 Sensor 77 75 Respiratory Rate 19 16 Respiratory Effort / Characteristics Respiratory Depth Blood Pressure 159/85 H Blood Pressure [Left Arm] Blood Pressure Mean 109 Blood Pressure Mean [Left Arm] Blood Pressure Position Pulse Oximetry 99 99 Oxygen Delivery Method Oxygen Flow Rate 3 3 Sepsis Recent Fever Within 48 Hours Sepsis New/Unexplained Change in Mental Status Sepsis Action Taken by Nursing 06/28/24 14:30 06/28/24 14:30 Temperature Temperature Source Pulse Rate 75 Pulse Rate [Apical] Pulse Rate from SpO2 Sensor 75 Respiratory Rate 16 Respiratory Effort / Characteristics Respiratory Depth Blood Pressure 163/85 H Blood Pressure [Left Arm] Blood Pressure Mean 145 Blood Pressure Mean [Left Arm] Blood Pressure Position Pulse Oximetry 99 Oxygen Delivery Method Nasal Cannula Oxygen Flow Rate 3 Sepsis Recent Fever Within 48 Hours Sepsis New/Unexplained Change in Mental Status Sepsis Action Taken by Nursing Laboratory Data 06/28/24 10:55 06/28/24 11:54 Lab Results 06/28/24 06/28/24 06/28/24 Range/Units 10:40 10:55 11:54 WBC 7.93 (4.8-10.8) K/ul RBC 2.96 L (4.20-5.40) M/uL Hgb 9.5 L (12.0-16.0) g/dl Hct 32.0 L (37.0-47.0) % MCV 108.1 H (80.0-100.0) fL MCH 32.1 (25.0-34.0) pg MCHC 29.7 L (32.0-36.0) g/dL RDW Std Deviation 60.7 H (36.4-46.3) fL RDW Coeff of Jared 15.6 H (11.5-14.5) % Plt Count 194 (130-400) K/uL MPV 9.9 (9.4-12.4) fL Immature Gran % (Auto) 0.4 % Neut % (Auto) 76.5 % Lymph % (Auto) 7.6 % Canyon % (Auto) 12.9 % Eos % (Auto) 2.0 % Baso % (Auto) 0.6 % Neut # (Auto) 6.07 (1.40-6.50) K/uL Lymph # (Auto) 0.60 L (1.20-3.40) K/uL Canyon # (Auto) 1.02 H (0.11-0.59) K/uL Eos # (Auto) 0.16 (0.00-0.50) K/uL Baso # (Auto) 0.05 (0.00-0.20) K/uL Immature Gran # (Auto) 0.03 (0.01-0.20) K/uL PT 10.4 (9.0-12.0) Seconds INR 1.0 (0.9-1.1) Sodium 132 L (136-145) mmol/L Potassium TNP 5.7 H Chloride 94 L (98-107) mmol/L Carbon Dioxide 33 H (21-32) mmol/L Anion Gap 5 (3-11) BUN 52 H (6-23) mg/dl Creatinine 6.54 H* (0.6-1.2) mg/dl Est Cr Clr Drug Dosing 7.4 ml/min eGFR 6.02 BUN/Creatinine Ratio 8.0 L (10-20) Glucose 386 H* (70-99(Fasting)) mg/dl Calcium 9.5 (8.6-10.3) mg/dl Magnesium 2.6 H (1.7-2.4) mg/dl Total Bilirubin 0.4 (0.2-1.0) mg/dl AST TNP 25 ALT 17 (7-52) U/L Alkaline Phosphatase 111 H (34-104) U/L Troponin I High Sens 50.8 H* (0-14) pg/ml B-Natriuretic Peptide 843 H (0-100) pg/ml Total Protein 7.8 (6.0-8.3) gm/dl Albumin 3.8 (3.4-5.0) gm/dl Globulin 4.0 (2.5-4.0) gm/dl Albumin/Globulin Ratio 1.0 (0.9-2) Adenovirus (PCR) Not Detected (NotDetected) B. pertussis DNA (PCR) Not Detected (NotDetected) B.parapertussis DNA PCR Not Detected (NotDetected) C. pneumoniae DNA (PCR) Not Detected (NotDetected) Coronavirus OC43 (PCR) Not Detected (NotDetected) Coronavirus HKU1 (PCR) Not Detected (NotDetected) Coronavirus 229E (PCR) Not Detected (NotDetected) SARS-CoV-2 (PCR) Not Detected (NotDetected) Coronavirus NL63 (PCR) Not Detected (NotDetected) Human Metapneumovir PCR Not Detected (NotDetected) Influenza Type A (PCR) Not Detected (NotDetected) Influenza Type B (PCR) Not Detected (NotDetected) M. pneumoniae (PCR) Not Detected (NotDetected) Parainfluenza 1 (PCR) Not Detected (NotDetected) Parainfluenza 2 (PCR) Not Detected (NotDetected) Parainfluenza 3 (PCR) Not Detected (NotDetected) Parainfluenza 4 (PCR) Not Detected (NotDetected) RSV (PCR) DETECTED A (NotDetected) Entero/Rhino (PCR) Not Detected (NotDetected) 06/28/24 Range/Units 12:54 WBC (4.8-10.8) K/ul RBC (4.20-5.40) M/uL Hgb (12.0-16.0) g/dl Hct (37.0-47.0) % MCV (80.0-100.0) fL MCH (25.0-34.0) pg MCHC (32.0-36.0) g/dL RDW Std Deviation (36.4-46.3) fL RDW Coeff of Jared (11.5-14.5) % Plt Count (130-400) K/uL MPV (9.4-12.4) fL Immature Gran % (Auto) % Neut % (Auto) % Lymph % (Auto) % Canyon % (Auto) % Eos % (Auto) % Baso % (Auto) % Neut # (Auto) (1.40-6.50) K/uL Lymph # (Auto) (1.20-3.40) K/uL Canyon # (Auto) (0.11-0.59) K/uL Eos # (Auto) (0.00-0.50) K/uL Baso # (Auto) (0.00-0.20) K/uL Immature Gran # (Auto) (0.01-0.20) K/uL PT (9.0-12.0) Seconds INR (0.9-1.1) Sodium (136-145) mmol/L Potassium Chloride (98-107) mmol/L Carbon Dioxide (21-32) mmol/L Anion Gap (3-11) BUN (6-23) mg/dl Creatinine (0.6-1.2) mg/dl Est Cr Clr Drug Dosing ml/min eGFR BUN/Creatinine Ratio (10-20) Glucose (70-99(Fasting)) mg/dl Calcium (8.6-10.3) mg/dl Magnesium (1.7-2.4) mg/dl Total Bilirubin (0.2-1.0) mg/dl AST ALT (7-52) U/L Alkaline Phosphatase (34-104) U/L Troponin I High Sens 55.2 H* (0-14) pg/ml B-Natriuretic Peptide (0-100) pg/ml Total Protein (6.0-8.3) gm/dl Albumin (3.4-5.0) gm/dl Globulin (2.5-4.0) gm/dl Albumin/Globulin Ratio (0.9-2) Adenovirus (PCR) (NotDetected) B. pertussis DNA (PCR) (NotDetected) B.parapertussis DNA PCR (NotDetected) C. pneumoniae DNA (PCR) (NotDetected) Coronavirus OC43 (PCR) (NotDetected) Coronavirus HKU1 (PCR) (NotDetected) Coronavirus 229E (PCR) (NotDetected) SARS-CoV-2 (PCR) (NotDetected) Coronavirus NL63 (PCR) (NotDetected) Human Metapneumovir PCR (NotDetected) Influenza Type A (PCR) (NotDetected) Influenza Type B (PCR) (NotDetected) M. pneumoniae (PCR) (NotDetected) Parainfluenza 1 (PCR) (NotDetected) Parainfluenza 2 (PCR) (NotDetected) Parainfluenza 3 (PCR) (NotDetected) Parainfluenza 4 (PCR) (NotDetected) RSV (PCR) (NotDetected) Entero/Rhino (PCR) (NotDetected) Imaging Data Radiologist's Impression: Chest X-Ray 06/28/24 10:31 XR chest 1V portable CLINICAL HISTORY: Dyspnea. COMPARISON STUDY: Chest CT January 09, 2024. Chest radiograph April 11, 2024. FINDINGS: There is no pneumothorax or pleural effusion. Cardiomegaly is unchanged. There is pulmonary vascular congestion. Right hilar fullness is present. There is no consolidation to suggest pneumonia. Minimal left basilar opacity favors atelectasis. IMPRESSION: 1. Cardiomegaly with pulmonary vascular congestion. 2. Minimal left basilar opacity suggestive of atelectasis. 2. Right hilar fullness. This is likely related to pulmonary vessels however can be assessed on follow-up exams to exclude the less likely possibility of lymphadenopathy. ACT 112: Negative or not required by law. Electronically signed by: Cyrus Serna M.D. 06/28/2024 11:03 AM Discharge Plan Visit Data Chief Complaint: Flu Like Symptoms Stated Complaint: SOB, COUGH, SORE THROAT ED Provider: Yeni Murcia Discharge Problem: RSV infection, Acute hyperkalemia, Acute dyspnea, Pulmonary vascular congestion, ESRD on dialysis, Hyperglycemia Forms Stand Alone Forms: [facility] Prescriptions Prescriptions: No Action (DME) lancets [OneTouch Delica Lancets] 33 gauge [facility] [place] See Rx Instructions .ROUTE .MEDSUPPLY Qty: 100 3RF Rx Instructions: use to test twice daily (DME) OneTouch Verio test strips Strip See Rx Instructions .ROUTE .MEDSUPPLY Qty: 300 3RF Rx Instructions: test twice daily E11.9 (DME) blood-glucose meter [OneTouch Verio Meter] [facility] [place] See Rx Instructions .ROUTE .MEDSUPPLY Qty: 1 0RF Rx Instructions: As directed E11.9 ondansetron 8 mg tablet,disintegrating 8 mg PO Q8H PRN (Reason: Nausea) Qty: 90 5RF lactulose 10 gram/15 mL solution 15 ml PO DAILY PRN (Reason: Constipation) Qty: 1350 3RF buspirone 5 mg tablet 5 mg PO BID Qty: 180 3RF pantoprazole 40 mg tablet,delayed release (DR/EC) 40 mg PO BID 90 Days Qty: 180 3RF gabapentin 300 mg capsule 300 mg PO 3XWK Qty: 36 1RF Rx Instructions: Wednesday, , wednesday after dialysis (DME) Oxygen Home Liters Per Minute See Rx Instructions .ROUTE .MEDSUPPLY Qty: 1 0RF Rx Instructions: 3 liters continuously lorazepam 1 mg tablet 0.5 mg PO BID PRN (Reason: anxiety) Qty: 30 0RF diltiazem HCl 30 mg tablet 30 mg PO Q8H PRN (Reason: palpitations) Qty: 30 5RF ProRenal 8 mg iron-800 mcg-1,000 unit tablet 1 tab PO QDL calcium acetate 667 mg Tablet 667 mg PO UD Rx Instructions: 1 cap with breakfast and lunch then 1 with supper olanzapine 10 mg tablet 5 mg PO BID Rx Instructions: 1/2 tab orally twice a day carvedilol 6.25 mg tablet 6.25 mg PO BID cholecalciferol (vitamin D3) 50 mcg (2,000 unit) capsule 50 mcg PO QAM venlafaxine 75 mg capsule,extended release 24hr 75 mg PO HS levothyroxine 100 mcg tablet 100 mcg PO QAM hydralazine 25 mg tablet 25 mg PO TID sodium zirconium cyclosilicate 10 gram powder in packet 10 g PO DAILY Qty: 30 5RF cyanocobalamin (vitamin B-12) 500 mcg Tablet 500 mcg PO QAM Qty: 30 0RF Referrals Referrals: Julito Burt MD [Primary Care Provider] -
--- NOTE | 2024-06-28 11:05 | XRay Report ---
XR chest 1V portable CLINICAL HISTORY: Dyspnea. COMPARISON STUDY: Chest CT January 09, 2024. Chest radiograph April 11, 2024. FINDINGS: There is no pneumothorax or pleural effusion. Cardiomegaly is unchanged. There is pulmonary vascular congestion. Right hilar fullness is present. There is no consolidation to suggest pneumonia . Minimal left basilar opacity favors atelectasis. IMPRESSION: 1. Cardiomegaly with pulmonary vascular congestion. 2. Minimal left basilar opacity suggestive of atelectasis. 2. Right hilar fullness. This is likely related to pulmonary vessels however can be assessed on follo w-up exams to exclude the less likely possibility of lymphadenopathy. ACT 112: Negative or not required by law. Electronically signed by: Cyrus Serna M.D. 06/28/2024 11:03 AM
[2024-06-28 11:31] LABS: Basophils # (auto) 0.05 K/uL (0.00-0.20); Basophils % (auto) 0.6 %; Eosinophils # (auto) 0.16 K/uL (0.00-0.50); Hemoglobin 9.5 g/dl (12.0-16.0); Immature Granulocytes # (auto) 0.03 K/uL (0.01-0.20); Immature Granulocytes % (auto) 0.4 %; Lymphocytes % (auto) 7.6 %; Mean Corpuscular Hemoglobin 32.1 pg (25.0-34.0); Mean Corpuscular Hgb Conc 29.7 g/dL (32.0-36.0); Mean Corpuscular Volume 108.1 fL (80.0-100.0); Mean Platelet Volume 9.9 fL (9.4-12.4); Monocytes # (auto) 1.02 K/uL (0.11-0.59); Monocytes % (auto) 12.9 %; Neutrophils # (auto) 6.07 K/uL (1.40-6.50); Neutrophils % (auto) 76.5 %; Platelet Count 194 K/uL (130-400); RDW Coefficient of Variation 15.6 % (11.5-14.5); RDW Standard Deviation 60.7 fL (36.4-46.3); Red Blood Count 2.96 M/uL (4.20-5.40); White Blood Count 7.93 K/ul (4.8-10.8)
[2024-06-28 11:39] LABS: Adenovirus PCR Not Detected (NotDetected); Bordetella parapertussis PCR Not Detected (NotDetected); Bordetella pertussis PCR Not Detected (NotDetected); Chlamydia pneumoniae PCR Not Detected (NotDetected); Coronavirus 229E PCR Not Detected (NotDetected); Coronavirus CoV-2 (COVID19)PCR Not Detected (NotDetected); Coronavirus HKU1 PCR Not Detected (NotDetected); Coronavirus NL63 PCR Not Detected (NotDetected); Coronavirus OC43PCR Not Detected (NotDetected); Human Metapneumovirus PCR Not Detected (NotDetected); Influenza A PCR Not Detected (NotDetected); Influenza B PCR Not Detected (NotDetected); Mycoplasma pneumoniae PCR Not Detected (NotDetected); Parainfluenza Virus 1 PCR Not Detected (NotDetected); Parainfluenza Virus 2 PCR Not Detected (NotDetected); Parainfluenza Virus 3 PCR Not Detected (NotDetected); Parainfluenza Virus 4 PCR Not Detected (NotDetected); Respiratory Syncytial VirusPCR DETECTED (NotDetected); Rhinovirus/Enterovirus PCR Not Detected (NotDetected)
[2024-06-28 11:49] LABS: Alanine Aminotransferase 17 U/L (7-52); Albumin Level 3.8 gm/dl (3.4-5.0); Alkaline Phosphatase 111 U/L (34-104); Anion Gap 5 (3-11); Bilirubin,Total 0.4 mg/dl (0.2-1.0); Blood Urea Nitrogen 52 mg/dl (6-23); Calcium 9.5 mg/dl (8.6-10.3); Carbon Dioxide 33 mmol/L (21-32); Chloride 94 mmol/L (98-107); Creatinine Clr Calc Pharmacy 7.4 ml/min; Glucose 386 mg/dl (70-99(Fasting)); Magnesium 2.6 mg/dl (1.7-2.4); Prothrombin Time 10.4 Seconds (9.0-12.0); Sodium 132 mmol/L (136-145); Total Protein 7.8 gm/dl (6.0-8.3); Troponin I High Sensitivity 50.8 pg/ml (0-14)
--- NOTE | 2024-06-28 11:58 | Electrocardiogram Report ---
Test Reason : Blood Pressure : */* mmHG Vent. Rate : 89 BPM Atrial Rate : 89 BPM P-R Int : 204 ms QRS Dur : 94 ms QT Int : 354 ms P-R-T Axes : 20 -63 47 degrees QTcB Int : 430 ms Normal sinus rhythm Left axis deviation Poor R wave progression, consider anterior WI vs. lead placement vs. LVH Abnormal ECG When compared with ECG of 10-Apr-2024 18:28, Questionable change in initial forces of Septal leads Confirmed by Julito Pratt ([id number]) on 06/28/2024 11:58:22 AM Referred By: REFERRED SELF Confirmed By: Julito Pratt
[2024-06-28 12:24] LABS: Potassium 5.7 mmol/L (3.5-5.1)
--- NOTE | 2024-06-28 14:56 | History & Physical Report ---
Date of Service June 28, 2024 Assessment & Plan (1) RSV (acute bronchiolitis due to respiratory syncytial virus): (2) Chronic respiratory failure with hypoxia: (3) ESRD on dialysis: (4) Acute hyperkalemia: Plan Shirley is a 79-year-old female with PMH of ESRD on HD, restrictive lung disease, cardiomyopathy, T2DM, seizure activity, CHF, TASH, HTN, paroxysmal atrial tachycardia, and severe COPD. She presented on 06/28 for MUNOZ, sore throat, productive cough, and nasal congestion x 3 days. #RSV infection RSV (+) on arrival Droplet isolation precautions Supportive care Acetaminophen as needed for pain/fever #Chronic hypoxic respiratory failure/COPD Patient is on supplemental oxygen (3L NC) at baseline CPAP at bedtime Continuous pulse oximetry Titrate oxygen supplementation to maintain SpO2 ~92% #ESRD on HD On dialysis Wednesday//Wednesday Nephrology consult appreciated Avoid nephrotoxic agents for possible #Hyperkalemia K 5.7 on arrival Lokelma x 1 given in ED Trend BMP q4h for now Continuous telemetry monitoring #T2DM Last A1c at 6.6% on 03/22/2024 Glucose 386 on arrival; 193 on admission Lantus 5u QAM while inpatient SSI; with target BSG range 110-140mg/dL, CF 50, carb ratio 15 T2DM diet BSG ACHS Adjust regimen as needed #Anemia Chronic; Hb 9.5 on arrival No signs of active bleeding on physical exam Suspect secondary to CKD Continue to monitor Disposition: Admit to PCU telemetry DNR/DNI T2DM, low potassium, dialysis diet VTE PPx: SCDs History of Present Illness Chief Complaint: Flu-like symptoms Primary Care Provider: Julito Burt MD Shirley is a 79-year-old female with PMH of ESRD on HD, restrictive lung disease, cardiomyopathy, T2DM, seizure activity, CHF, TASH, HTN, paroxysmal atrial tachycardia, and severe COPD. She presented on 06/28 for MUNOZ, sore throat, productive cough, and nasal congestion x 3 days. She reports her SOB is mainly with exertion, not at rest. She is on supplemental oxygen at baseline (3L NC) due to history of severe COPD, and uses CPAP at night. Patient has been taking Tylenol at home for her body aches, but denies having any fevers at home. She did not take her regular morning medicines today. Her daughter helps to manage her medicine by placing them in pillboxes at home. She lives with her at home. She ambulates with a walker at baseline; denies any recent falls. Patient receives dialysis Wednesday, , and Wednesday; she did attend her last dialysis session yesterday on 06/27. Patient does have history of a blood clot in her left leg (many years ago), but is not currently on blood thinners. She denies smoking, tobacco use, recent alcohol use. Patient is mildly hypertensive 163/85 at admission; vitals otherwise stable. ED course: ROS: Patient endorses cold intolerance, body aches, fatigue, sinus congestion, runny nose, MUNOZ, productive cough (green sputum production), pleuritic CP, abdominal soreness, and chronic neuropathy in the legs. Patient denies fever, chills, night-sweats, dizziness, lightheadedness, ROJAS, rashes, chest pain, hemoptysis, N/V/D, constipation, burning with urination, blood in the urine/stool, or pain in the legs. Allergies Allergy/AdvReac Type Severity Reaction Status Date / Time lisinopril AdvReac Intermediate cough Verified 06/28/24 14:59 Home Medications Medication Instructions Recorded Confirmed Type vit B complx, C-iron 8 mg-folic 1 tab PO QDL 02/27/20 06/28/24 History acid 800 mcg-D3 1,000 unit-zinc tablet (ProRenal) lancets 33 gauge (OneTouch Delica #100 ea 11/27/20 06/28/24 Rx Lancets) calcium acetate 667 mg tablet 667 mg PO UD 12/17/20 06/28/24 History blood sugar diagnostic ([employer] #300 ea 07/31/22 06/28/24 Rx Verio test strips) blood-glucose meter ([employer]Touch #1 ea 07/31/22 06/28/24 Rx Verio Meter) ondansetron 8 mg disintegrating 8 mg PO Q8H PRN Nausea #90 tabs 07/31/22 06/28/24 Rx tablet Oxygen Home #1 ea 09/04/22 06/28/24 Rx lactulose 10 gram/15 mL oral 15 ml PO DAILY PRN Constipation 08/13/23 06/28/24 Rx solution #1,350 mL buspirone 5 mg tablet 5 mg PO BID #180 tabs 09/16/23 06/28/24 Rx pantoprazole 40 mg tablet,delayed 40 mg PO BID 90 days #180 tabs 09/16/23 06/28/24 Rx release hydralazine 25 mg tablet 25 mg PO TID 02/21/24 06/28/24 History sodium zirconium cyclosilicate 10 10 g PO DAILY #30 ea 02/23/24 06/28/24 Rx gram oral powder packet lorazepam 1 mg tablet 0.5 mg (1/2 x 1 mg) PO BID PRN 03/22/24 06/28/24 Rx anxiety #30 tabs gabapentin 300 mg capsule 300 mg PO 3XWK #36 caps 04/06/24 06/28/24 Rx cyanocobalamin (vitamin B-12) 500 500 mcg PO QAM #30 tabs 04/12/24 06/28/24 Rx mcg tablet diltiazem HCl 30 mg tablet 30 mg PO Q8H PRN palpitations #30 06/16/24 06/28/24 Rx tabs carvedilol 6.25 mg tablet 6.25 mg PO BID 06/28/24 06/28/24 History cholecalciferol (vitamin D3) 50 50 mcg PO QAM 06/28/24 06/28/24 History mcg (2,000 unit) capsule levothyroxine 100 mcg tablet 100 mcg PO QAM 06/28/24 06/28/24 History olanzapine 10 mg tablet 5 mg PO BID 06/28/24 06/28/24 History venlafaxine 75 mg capsule,extended 75 mg PO HS 06/28/24 06/28/24 History release 24 hr Past Med/Surg History Problem List (Updated 06/28/24 @ 15:47 by Carter Bragg PA-C) Chronic respiratory failure with hypoxia RSV (acute bronchiolitis due to respiratory syncytial virus) Hyperglycemia (Acute) ESRD on dialysis (Acute) Pulmonary vascular congestion (Acute) Acute dyspnea (Acute) Acute hyperkalemia (Acute) RSV infection (Acute) Paroxysmal atrial tachycardia Stage II pressure ulcer of buttock (Acute) (HFpEF) heart failure with preserved ejection fraction Palpitation B12 deficiency PNA (pneumonia) Stage I pressure ulcer of buttock (Acute) Acute heart failure with preserved ejection fraction Acute respiratory failure with hypoxia and hypercarbia Acute hyperkalemia (Acute) Elevated troponin (Acute) Metabolic acidosis (Acute) Leukocytosis (Acute) AMS (altered mental status) (Acute) Earache on left Sore throat COPD, 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 Counseling regarding advanced directives and goals of care Palliative care by specialist AMS (altered mental status) (Acute) Confusion Metabolic encephalopathy Arthralgia of right foot Chronic kidney disease-mineral and bone disorder Hypertension Diabetes mellitus Anemia Coronary artery disease Hypothyroidism Vitamin D deficiency (Acute) Polyarthritis (Acute) Paresthesias (Acute) Obstructive sleep apnea (Acute) Insomnia (Acute) Dyslipidemia (Acute) Diabetic retinopathy (Acute) Depression with anxiety (Acute) Cardiomyopathy Restrictive lung disease (Acute) End-stage renal disease on hemodialysis (Acute) CHF (congestive heart failure) (Acute) Polymyalgia rheumatica Abnormal chest CT Hypertension (Acute) Weakness (Acute) Diverticulitis (Acute) Hiatal hernia with gastroesophageal reflux disease and esophagitis Early satiety Nausea & vomiting Type 2 diabetes mellitus with diabetic neuropathy (Acute) Right leg pain Leg edema, right Contusion of face Right facial numbness History of fracture of orbit (~06/20/21) Memory change Neuropathy Abnormal gait RLS (restless legs syndrome) Low back pain Seizure-like activity Elevated ferritin level Tremor Depression Anxiety Medical History Chronic respiratory failure with hypoxia Acute and chronic respiratory failure with hypoxia Acute and chronic respiratory failure with hypercapnia Weakness generalized Cellulitis of right leg Morbid obesity with BMI of 40.0-44.9, adult Diabetic eyes Hallucinations Fatigue Abnormal EKG Acute electrocardiogram changes Transaminitis Elevated troponin Myoclonus Acute hyperkalemia Hyperkalemia, diminished renal excretion Laceration of left lower extremity Hernia, hiatal GERD without esophagitis Macular puckering, bilateral Panniculitis Tubular adenoma of colon Hypertension History of thrombophlebitis Arthritis Surgical History History of tonsillectomy S/P repair of paraesophageal hernia History of nasal septoplasty History of cataract surgery History of bladder surgery S/P arteriovenous (AV) fistula creation S/P rotator cuff repair S/P hysterectomy H/O: hysterectomy Family History Mother Leukemia Cerebral aneurysm Hypertension Anxiety Diabetes Cancer Heart disease Grandmother Hypertension Father Osteoarthritis COPD (chronic obstructive pulmonary disease) Diabetes Hearing loss Sister Diabetes Myocardial infarction COPD (chronic obstructive pulmonary disease) Hypertension Brother Myocardial infarction Diabetes Cancer Stomach cancer Other No family history of bleeding disorder Denies family history of Ovarian cancer Prostate cancer Breast cancer Colorectal cancer Stroke Asthma Social History Smoking Status: Former smoker Second Hand Exposure: No; Do You Dip or Chew Tobacco: No; Hx Alcohol Use: No Hx Substance Use: No Preferred Language: Greenlandic Communication Ability: Effective Visual Impairment: No Limitations Hearing Ability: Normal Debit Agent Required: No Beliefs That Will Affect Care: None marital status: Current Living Situation: Spouse Current Living Situation Comment: Lives with current occupational status: retired How many Children do You have: 1 Feels Safe at Home: Yes Childhood Exposure to Second-Hand Smoke: No Dental Care, Regularly: No Physical Activity Frequency: 1-2 Times per Week Seatbelt Use: always Sunscreen Use: No Assistive Devices: Cane, Lift Chair, Oxygen - Continuous, Walker and Wheelchair Review of Systems Review of Systems: See HPI above Physical Exam Physical Exam: General: no acute distress; fatigue; non-toxic appearing; frail appearing; coope rative; SpO2 99% on 3L NC HEENT: normocephalic, atraumatic; no scleral icterus; PERRLA; vision and hearing intact Neck: supple; no lymphadenopathy; trachea midline Skin: warm, dry without signs of tenting; no cyanosis; no rashes, bruising, lesions, or erythema noted CV: chest wall NTP; RRR; S1/S2 normal; no murmurs/rubs/gallops; pulses intact and symmetric at radial, DP, and PT Lungs: no acute respiratory distress; symmetrical chest wall expansion; clear breath sounds across all lung mahoney w/o adventitious sounds; no wheezing ABD: Soft, NTP; BS present; no rebound/guarding; no distention MSK: no tics or fasciculations; no edema noted in the LEs b/l, nonerythematous Neuro: A&Ox3; normal mood and affect; fluent speech; no focal deficits; sensation grossly intact in the LEs b/l Results & Data Results & Data Vital Signs (Past 12 Hours) Vital Signs Temp Pulse Pulse Resp BP BP Pulse Ox 06/28/24 14:30 75 16 99 06/28/24 14:30 163/85 H 06/28/24 14:17 75 06/28/24 14:12 75 16 159/85 H 99 06/28/24 13:57 76 19 99 06/28/24 13:47 06/28/24 13:06 78 17 99 06/28/24 13:00 169/80 H 06/28/24 12:57 78 19 96 06/28/24 12:30 83 16 99 06/28/24 12:30 170/82 H 06/28/24 12:06 123 H 17 99 06/28/24 12:00 169/83 H 06/28/24 11:54 80 20 99 06/28/24 11:30 166/79 H 06/28/24 11:30 81 18 98 06/28/24 11:00 87 16 99 06/28/24 11:00 180/91 H 06/28/24 10:59 06/28/24 10:47 88 20 194/93 H 99 06/28/24 10:38 89 06/28/24 10:36 89 22 99 06/28/24 10:24 37.3 C 91 H 20 177/84 H 97 O2 Del Method O2 Flow Rate 06/28/24 14:30 Nasal Cannula 3 06/28/24 14:30 06/28/24 14:17 06/28/24 14:12 3 06/28/24 13:57 3 06/28/24 13:47 Nasal Cannula 3 06/28/24 13:06 Nasal Cannula 3 06/28/24 13:00 06/28/24 12:57 Nasal Cannula 3 06/28/24 12:30 Nasal Cannula 3 06/28/24 12:30 06/28/24 12:06 Nasal Cannula 3 06/28/24 12:00 06/28/24 11:54 Nasal Cannula 3 06/28/24 11:30 06/28/24 11:30 Nasal Cannula 3 06/28/24 11:00 Nasal Cannula 3 06/28/24 11:00 06/28/24 10:59 Nasal Cannula 3 06/28/24 10:47 Nasal Cannula 3 06/28/24 10:38 06/28/24 10:36 Nasal Cannula 3 06/28/24 10:24 Nasal Cannula 3 Laboratory Results Abnormal lab results 06/28/24 06/28/24 06/28/24 Range/Units 10:40 10:55 11:54 RBC 2.96 L (4.20-5.40) M/uL Hgb 9.5 L (12.0-16.0) g/dl Hct 32.0 L (37.0-47.0) % MCV 108.1 H (80.0-100.0) fL MCHC 29.7 L (32.0-36.0) g/dL RDW Std Deviation 60.7 H (36.4-46.3) fL RDW Coeff of Jared 15.6 H (11.5-14.5) % Lymph # (Auto) 0.60 L (1.20-3.40) K/uL Dawson # (Auto) 1.02 H (0.11-0.59) K/uL Sodium 132 L (136-145) mmol/L Potassium 5.7 H (3.5-5.1) mmol/L Chloride 94 L (98-107) mmol/L Carbon Dioxide 33 H (21-32) mmol/L BUN 52 H (6-23) mg/dl Creatinine 6.54 H* (0.6-1.2) mg/dl BUN/Creatinine Ratio 8.0 L (10-20) Glucose 386 H* (70-99(Fasting)) mg/dl Magnesium 2.6 H (1.7-2.4) mg/dl Alkaline Phosphatase 111 H (34-104) U/L Troponin I High Sens 50.8 H* (0-14) pg/ml B-Natriuretic Peptide 843 H (0-100) pg/ml RSV (PCR) DETECTED A (NotDetected) 06/28/24 Range/Units 12:54 RBC (4.20-5.40) M/uL Hgb (12.0-16.0) g/dl Hct (37.0-47.0) % MCV (80.0-100.0) fL MCHC (32.0-36.0) g/dL RDW Std Deviation (36.4-46.3) fL RDW Coeff of Jared (11.5-14.5) % Lymph # (Auto) (1.20-3.40) K/uL Dawson # (Auto) (0.11-0.59) K/uL Sodium (136-145) mmol/L Potassium (3.5-5.1) mmol/L Chloride (98-107) mmol/L Carbon Dioxide (21-32) mmol/L BUN (6-23) mg/dl Creatinine (0.6-1.2) mg/dl BUN/Creatinine Ratio (10-20) Glucose (70-99(Fasting)) mg/dl Magnesium (1.7-2.4) mg/dl Alkaline Phosphatase (34-104) U/L Troponin I High Sens 55.2 H* (0-14) pg/ml B-Natriuretic Peptide (0-100) pg/ml RSV (PCR) (NotDetected) Diagnostic Findings Chest X-Ray 06/28/24 10:31 XR chest 1V portable CLINICAL HISTORY: Dyspnea. COMPARISON STUDY: Chest CT January 09, 2024. Chest radiograph April 11, 2024. FINDINGS: There is no pneumothorax or pleural effusion. Cardiomegaly is unchanged. There is pulmonary vascular congestion. Right hilar fullness is present. There is no consolidation to suggest pneumonia. Minimal left basilar opacity favors atelectasis. IMPRESSION: 1. Cardiomegaly with pulmonary vascular congestion. 2. Minimal left basilar opacity suggestive of atelectasis. 2. Right hilar fullness. This is likely related to pulmonary vessels however can be assessed on follow-up exams to exclude the less likely possibility of lymphadenopathy. ACT 112: Negative or not required by law. Electronically signed by: Cyrus Serna M.D. 06/28/2024 11:03 AM ECG Additional Comments: ECG revealed NSR at 89 bpm; QTc 430 Code Status & VTE Plan Code Status DNR/DNI VTE Prophylaxis Plan VTE Prophylaxis will be ordered: Yes Supervising Physician Co-Signing Physician Notes Patient seen and examined, chart reviewed, case discussed with Carter Bragg PA-C and I agree with the assessment and plan as above except as otherwise noted Labs and images reviewed Shirley is a 79-year-old female with a past medical history of paroxysmal atrial tachycardia, HFpEF, CKD, hypothyroidism, cardiomyopathy, history of lung disease, type II DM presents to the ER with hyperkalemia, hypoxia, and who is RSV positive. 3-4 days of flu like symptoms. Cough, sore throat, fatigue. RSV positive in the ER. Is on baseline 3L NC. Did want to go home, but on attempted ambulatory trial could not walk without a to assist due to fatigue and was recommended for inpatient care. RSV Supportive care. No wheezing, steroids deferred. Patient is at her baseline oxygen requirement, is slightly volume overloaded and nephrology been consulted for dialysis ESRD Normally on dialysis Wednesday//Wednesday Elevated potassium, evidence of pulmonary vascular congestion on chest x-ray although no overt edema. She is on her baseline oxygen requirement - EKG reviewed. Does have a slightly peaked appearance to her T waves however this is unchanged compared to 04/19/2024 and 02/18/2024. QT stable at elizabeth roximately 430. Will give 1 dose of Lokelma for elevated potassium, trend this every 6 hours and consult nephrology for dialysis. His lungs are potassium and volume status remain stable can likely target dialysis session 06/29/2024 Otherwise agree with management as discussed with Carter Bragg PG Care Time/CCT Total # of Minutes Spent Total Time Spent with Patient: Total time spent is greater than 50% in coordination of care (as documented) at patient's floor/unit and/or counseling patient: C[place] [address] INT INP/OBS CARE 3/75MIN Patient Type Established History Comprehensive Exam Comprehensive Medical Decision Making High Complexity Diagnoses RSV (acute bronchiolitis due to respiratory syncytial virus) J21.0 Chronic respiratory failure with hypoxia J96.11 ESRD on dialysis N18.6; Z99.2 Acute hyperkalemia E87.5
--- OUTSIDE RECORDS SUMMARY | 2024-06-28 15:09 | External Medical Summary | Summary of Care ---
Author Name Unknown Organization [facility] Address [address] [place] [address] Phone [phone] Care Team Providers Care Oilfield Plant And Field Operator Name Role Phone Julito Burt MD Primary Care Provider +1- [phone] Encounter Details Date Type Department Care Team (Late st Contact Info) Description 06/23/2024 10:30 AM EST Home Visit Care Coordination and Integration [address] [place] [address] Carmen Muñoz, Community Health Channel Cementer Outsole Machine [address], [place] [id number] Allergies Active Allergy Reactions Criticality Noted Date Comments Lisinopril Cough Low 10/18/2015 documented as of this encounter (statuses as of 06/23/2024) Medications Magnesium 400 MG Capsule Take 1 [...] Use 3 L/min(Oxygen) as directed continuous. Active busPIRone HCl 5 MG Oral Tablet (Buspar) Take 1 tablet by mouth twice daily 180 Tablet 3 06/13/2024 12:20 PM EST 4 Active Venlafaxine HCl ER 75 MG Oral Capsule Extended Release 24 Hour (Effexor XR) Take 1 capsule by mouth daily 90 Capsule 3 04/13/2024 12:29 PM EST 4 Active Pantoprazole Sodium 40 MG Oral Tablet Delayed Release (Protonix) take 1 tablet by mouth twice daily 180 Tablet 3 04/10/2024 12:11 PM EST 4 Active Cholecalciferol 50 MCG (2000 UT) [...] mouth every 6 hours as needed. Active oxyCODONE HCl 5 MG Oral Tablet [...] by mouth twice daily 90 Tablet 3 05/18/2024 8:25 AM EST 4 Active Levothyroxine Sodium 100 MCG Oral Tablet (Levoxyl) Take 1 tablet by mouth daily in the evening 90 Tablet 3 05/18/2024 8:25 AM EST 4 Active hydrALAZINE HCl 25 MG Oral Tablet (Apresoline) Take 1 Tablet by mouth 3 times a day. 270 Tablet 3 06/01/2024 1:19 PM EST 4 Active Sodium Zirconium Cyclosilicate 10 GM Oral Packet (Lokelma) Take 1 Packet by mouth in the morning. 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 11/01/2023 Assessment & Plan (11/01/2023 2:18 PM EDT): Diet controlled Most recent A1c 6.4% 05/2023 Age-related osteoporosis maryjane figueroa current pathological fracture 11/01/2023 Assessment & Plan [...] Additional Comments: Stable today Continues dialysis tues,thurs,sat Recent chf exacerbation, encouraged med compliance and [...] DDD (degenerative disc disease), lumbar 06/07/19 21 prison current use of systemic steroids 06/07 ESRD [...] as of this encounter (statuses as of 06/23/2024) Resolved Problems Problem Noted Date Diagnosed Date [...] as of this encounter (statuses as of 06/23/2024) Immunizations Name Administration Dates Next Due COVID-19 mRNA, LNP-s, No Pre serve, 2-Dose Series ([employer]) 08/09/2020,07/19/2020 documented as of this encounter Social [...] the money to buy more. Never true 06/23/19 25 Within the past 12 months, t he food you bought just didn't last and you didn't have money to get more. Never true 06/23/2024 Childcare Answer Date Recorded Do you feel overwhelmed with taking care of a child, family member or friend? No 06/23/2024 Does your family need help f inding childcare? (Household - for ages 0-17 years) Not on file 06/23/2024 Clothing Answer Date Recorded Have you been unable to get clothing when it was really needed? No 06/23/2024 Is your family able to get c lothes or diapers when needed? (Household - for ages 0-17 years) Not on file 06/23/2024 Personal Safety Answer Date Recorded Do you feel unsafe or have concerns for your saf ety? No 06/23/2024 Do you have concerns for you r family's safety? (Household - for ages 0-17 years) Not on file 06/23/2024 Utilities Answer Date Recorded Do you have trouble paying y our heating, water, or electric bill? No 06/23/2024 Is your family able to pay t he heat, water, or electric bill? (Household - for ages 0-17 years) Not on file 06/23/2024 Does your family have access to good internet? (Household - for ages 0-17 years) Not on file 06/23/2024 Employment Status Answer Date Recorded Are you unemployed or without regular income? No 06/23/2024 Does the household have a re gular source of income? (Household - for ages 0-17 years) Not on file 06/23/2024 Social Connections Answer Date Recorded How often do you feel lonely or isolated from those around you? Sometimes 06/23/2024 Financial Resource Strain Answer Date R ecorded Do you have any trouble payi ng for your medications, or do you think you might in the future? No 06/23/2024 Does your family have troubl e paying for medicine? (Household - for ages 0-17 years) Not on file 06/23/2024 Transportation Needs Answer Date Record ed Do you have trouble getting a ride to medical visits or work? (Adult - for ages 18 years and over) Not on file 06/23/2024 Does your family have a hard time getting a ride to doctors visits? (Household - for ages 0-17 years) Not on file 06/23/2024 Has lack of transportation k ept you from medical appointments, meetings, work, or from getting things needed for daily living? Check all that apply. No 06/23/2024 Do you (or your family) have trouble finding or paying for a ride (transportation)? (Household - for ages 0-17 years) Not on file 06/23/2024 Housing Stability Answer Date Recorded Do you currently live in a s helter or have no steady place to sleep at night? No 06/23/2024 Do you think you are at risk of becoming homeless? (Adult - for ages 18 years and over) Not on file 06/23/2024 Does your family worry about paying for your home or becoming homeless? (Household - for ages 0-17 years) Not on file 0 06/23/2024 Are you homeless or worried that you might be in the future? No 06/23/2024 Are you (or your family) olga eless or worried that you might be in the future? (Household - for ages 0-17 years) Not on file Food Insecurity Answer Date Recorded Do you need food for this week? No 06/23/2024 Are you able to get enough f ood for your family? (Household - for ages 0-17 years) Not on file 06/23/2024 Does your family need food t his week? (Household - for ages 0-17 years) Not on file 06/23/2024 Do you always have enough fo od for your family? (Household - for ages 0-17 years) Not on file 06/23/2024 Comments No Sex and Gender Information Value Date Recorded Sex Assigned at Not on file Legal Sex Female 7:01 AM EST Gender Identity Not on file Sexual Orientation Not on file documented as of this encounter Last Filed Vital Signs Vital Sign Reading Time Taken Comments Blood Pressure 140/80 06/23/2024 10:29 AM EST Pulse 70 06/23/2024 10:29 AM EST Temperature - - Respiratory Rate - - Oxygen Saturation 99% 06/23/2024 10:29 AM EST Inhaled Oxygen Concentration - - Weight - - Height - - Body Mass Index - - documented in this encounter Functional Status * Are you deaf or do you have serious difficulty hearing? Answer Date of Assessment Author No 10/18/2015 7:50 PM EDT Courtney Gonzalez RN documented as of this encounter Progress Notes * Carmen Muñoz, Community Health Channel Cementer Outsole Machine - 06/23/2024 10:43 AM EST Telemedicine visit: No Community Health Channel Cementer Outsole Machine (LUI) documentation: This CHW facilitated home visit with patient and spouse. Patient was reclining in her recliner when this CHW arrived. Was going in and out of sleeping. Patient reported that she was up early at 4 and could not go back to sleep. Patient is up early on days she has to go to dialysis, 3 days a wee, and then on days she does not have to be up she gets awake still at 4 and cannot go back to sleep. This is frustrating to patient. Patient sometimes takes something to help her sleep but not all the time. Patient reported a pressure sore on her bottom and is going to the wound clinic for this. Goes next Wednesday to the wound clinic. Patient reported that thispressure wound heals up and than breaks open again a lot. Patient lost her insurance card and has requested a new card. Should be receiving it soon. Patient also has a flex card and has not used it. This CHW suggested using it and what patient could get with it. This CHW confirmed [facility] contact info and encouraged patient to reach out to [facility] with any concerns orquestions. Carmen Muñoz- Community Health Worker 1 Support Services/[facility] [email or web address] Electronically signed by Carmen Muñoz Community Health Channel Cementer Outsole Machine at 06/23/2024 11:20 AM EST documented in this encounter Plan of Treatment Upcoming Encounters Date Type Department Care Team ([facility] Contact Info) Description 06/26/2024 3:00 PM EST [facility] [address] [address] Dewey Guillory PA-C [address] [address] 07/24/2024 9:00 AM EST Home Visit [facility], [facility] [address] [address] Dewey Guillory PA-C [address] [address] 08/02/2024 1:30 PM EST Home Visit [facility], [facility] [address] [address] Becki Santillan RN [address] [address] Health Maintenance Due Date Last Done Comments Depression Monitoring 1957 Alpha-1 Antitrypsin 1963 Diabetic Foot Exam 1963 TSH 1963 HbA1c 10/15/1997 04/17/1997 *COPD SEVERITY VERIFIED BY PFT 01/28/2020 *BISPHONATE OR OTHER ACCEPTABLE MEDICATION NEEDED FOR OSTEOPOROSIS (REFER TO SMARTSET #1146) 04/08/2024 Diabetic Eye Exam 10/21/2024 10/22/2023, , 08/03/2022, Additional history exists O2 ASSESSMENT COMPLETED IN PAST YEAR FOR COPD 04/19/2025 04/19/2024 DTap/Tdap Vaccines (2 - Td or Tdap) 08/02/2029 08/03/2019 Hepatitis C Screening Completed 10/19/2015 Zoster Vaccines Completed 08/08/2020, 12/2019, 05/18/2019, Additional history exists Pneumococcal Vaccine: 50+ Years Completed 06/15/2022, 08/12/2017, 06/25/2016, Additional history exists Hepatitis B Vaccine Completed 10/15/2022, 08/13/2022, 07/14/2022, Additional history exists COVID-19 Vaccine Completed 03/22/2024, , 06/25/2022, Additional history exists Influenza Vaccine (FLU shot) Completed , 03/09/2023, 02/28/2022, Additional history exists HPV (Gardasil) Vaccine Aged Out No lo nger eligible based on patient's age to complete this topic MENINGOCOCCAL (MENACTRA/MENVEO) Aged Out No longer eligible based on patient's age to complete this topic documented as of this encounter Medical Devices Implanted Type Area Supervisor Front Device Identifier Shelf Expiration Date Model / Serial / Lot 6 Mm X 14 Cm Cook Medical Doris Embolization Coil Implanted:Qty: 2 on 10/21/2015 by Robb Rogel MD at [facility] [place]: Lower Arm 07/04/2020 [id number] / [id number] / [id number] Description:6 mm x 14 cm Cutting And Creasing Press Operator k Medical Doris Embolization Coil 6 Mm X 14 Cm Cook Medical Doris Embolization Coil Implanted:Qty: 2 on 10/21/2015 by Robb Rogel MD at [facility] Right: Lower Arm 07/30/2019 [id number] / [id number] / [id number] Description:6 mm x 14 cm Cutting And Creasing Press Operator k Medical Doris Embolization Coil 4 Mm X 14 Cm Cook Medical Doris Embolization Coil Implanted:Qty: 3 on 10/21/2015 by Robb Rogel MD at [facility] Right: Lower Arm 07/05/2020 [id number] / [id number] / [id number] Description:4 mm x 14 cm Cutting And Creasing Press Operator k Medical Doris Embolization Coil 4 Mm X 14 Cm [employer] Medical Doris Embolization Coil Implanted:Qty: 5 on 10/21/2015 by Robb Rogel MD at [facility] Right: Lower Arm 07/30/2019 [id number] / [id number] / [id number] Description:4 mm x 14 cm Cutting And Creasing Press Operator k Medical Doris Embolization Coil 4 Mm X 3mm X 2.6 Cm Cook Medical Tornado Embolization Coil Implanted:Qty: 2 on 10/21/2015 by Robb Rogel MD at [facility] Right: Lower Arm 07/18/2020 [id number] / [id number] / [id number] Description:4 mm x 3mm x 2.6 cm Cook Medical Tornado Embolization Coil documented as of this encounter Advance Directives * Full Code (Latest Code Status on File) Date Activated Date Inactivated Comments 10/18/2015 8:38 PM 10/27/2015 5:32 PM Question Answer Comments Discussion of Advance Directives occurred with: Not Discussed Healthcare Agents on File Name Relationship [facility] Oscar Lawson Adult Child Health Care Agen t (per Health Care Power of Manager Molecular document) Care Teams Oilfield Plant And Field Operator Relationship Specialty Start Date End Date Pro, Julito Chris MD [address] [place] [address] PCP - General Internal Medicine 01/24/20 documented as of this encounter
--- OUTSIDE RECORDS SUMMARY | 2024-06-28 15:10 | External Medical Summary | Summary of Care ---
Author Name Unknown Organization [facility] Address [address] [place] [facility] [place] [place] [address] Phone [phone] Care Team Providers Care Taxi Proprietor Name Role Phone Julito Burt MD Primary Care Provider +1- [phone] Encounter Details Date Type Department Care Team (Late st Contact Info) Description 06/19/2024 Population Health External Data Unspecified Department Allergies Active Allergy Reactions Criticality Noted Date Comments Lisinopril Cough Low 10/18/2015 documented as of this encounter (statuses as of 06/19/2024) Medications Magnesium 400 MG Capsule Take 1 [...] as of this encounter (statuses as of 06/19/2024) Active Problems Problem Noted Date Diagnosed Date Atherosclerosis of [place] co ronary artery without angina pectoris 04/04/2024 [...] for guidance Additional Comments: Continues dialysis gideon marina,rodney Recent hyperkalemia, lokelma increased Encouraged low sodium [...] guidance Additional Comments: Stable today Continues dialysis laina,gideon,sat Recent chf exacerbation, encouraged med compliance and [...] DDD (degenerative disc disease), lumbar 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 06/07 ESRD [...] as of this encounter (statuses as of 06/19/2024) Resolved Problems Problem Noted Date Diagnosed Date [...] as of this encounter (statuses as of 06/19/2024) Immunizations Name Administration Dates Next Due COVID-19 mRNA, LNP-s, No Pre serve, 2-Dose Series (Issue) 08/09/2020,07/19/2020 documented as of this encounter Social [...] Visit Care Coordination and Integration [address] [facility] [place] [address] Carmen Muñoz Community Health Stick Welder [address] [place] [address] 06/26/2024 3:00 PM EST [facility] Visit [facility], [facility] [address] [address] Dewey Guillory PA-C [address] [address] 07/24/2024 9:00 AM EST [facility] Visit [facility] [address] [address] Dewey Guillory PA-C [address] [address] 08/02/2024 1:30 PM EST Home Visit [facility], [facility] [address] [address] Becki Santillan, RN [address] [place] [address] Health Maintenance Due Date Last Done Comments [...] 0612/2019, 05/18/2019, Additional history exists Pneumococcal Vaccine: 50+ [...] this encounter Medical Devices Implanted Type Area Local Delivery Truck Driver Device Identifier Shelf Expiration Date Model / Serial / Lot 6 Mm X 14 Cm [place] Medical Doris Embolization Coil Implanted:Qty: 2 on 10/21/2015 by Robb Rogel MD at [facility] Right: Lower Arm 07/04/2020 [id number] / [id number] / [id number] Description:6 mm x 14 cm Reel Film Inspector k Medical Doris Embolization Coil 6 Mm X 14 Cm Cook Medical Doris Embolization Coil Implanted:Qty: 2 on 10/21/2015 by Robb Rogel MD at [facility] Right: Lower Arm 07/30/2019 [id number] / [id number] / [id number] Description:6 mm x 14 cm Reel Film Inspector k Medical Doris Embolization Coil 4 Mm X 14 Cm Cook Medical [place] Embolization Coil Implanted:Qty: 3 on 10/21/2015 by Robb Rogel MD at [facility] Right: Lower Arm 07/05/2020 [id number] / [id number] / [id number] Description:4 mm x 14 cm Reel Film Inspector k Medical Doris Embolization Coil 4 Mm X 14 Cm Cook Medical Doris Embolization Coil Implanted:Qty: 5 on 10/21/2015 by Robb Rogel MD at [facility] Right: Lower Arm 07/30/2019 [id number] / [id number] / [id number] Description:4 mm x 14 cm Reel Film Inspector k Medical Doris Embolization Coil 4 Mm X 3mm X 2.6 Cm Cook Medical Tornado Embolization Coil Implanted:Qty: 2 on 10/21/2015 by Robb Rogel MD at [facility] Right: Lower Arm 07/18/2020 [id number] / [id number] / [id number] Description:4 mm x 3mm x 2.6 cm Cook Medical Tornado Embolization Coil documented as of this encounter Advance Directives * Full Code (Latest Code Status on File) Date Activated Date Inactivated Comments 10/18/2015 8:38 PM 10/27/2015 5:32 PM Question Answer Comments Discussion of Advance Directives occurred with: Not Discussed Healthcare Agents on File Name Relationship [facility] Oscar Lawson Adult Child Health Care Agen t (per Health Care Power of Cafe Operator document) Care Teams Taxi Proprietor Relationship Specialty Start Date End Date Pro, Julito Chris MD [address] [place] [address] PCP - General Internal Medicine 01/24/20 documented as of this encounter
[2024-06-28] MEDS: SODIUM ZIRCONIUM CYCLOSILICATE 10 GM PACKET PO STA (15:42)
[2024-06-28] MEDS: NovoLIN-R INSULIN PER UNIT CHARGE IV STA (16:05)
[2024-06-28 16:18] LABS: BUN Creatinine Ratio 7.9 (10-20); Calcium 8.8 mg/dl (8.6-10.3); Creatinine Clr Calc Pharmacy 7.1 ml/min; Potassium 5.6 mmol/L (3.5-5.1)
[2024-06-28] MEDS ORDERED: GLUCAGON FOR INJ 1 MG VIAL SQ PRN (17:51)
[2024-06-28] MEDS ORDERED: ONDANSETRON INJ 2 MG/ML 2 ML VIAL IV PRN (17:51)
[2024-06-28] MEDS ORDERED: GLUCOSE 10 TAB/TUBE PO PRN (17:51)
[2024-06-28] MEDS ORDERED: CARBOHYDRATES FOR HYPOGLYCEMIA PO PRN (17:51)
[2024-06-28] MEDS ORDERED: dilTIAZem HCL 30 MG TAB PO PRN (17:51)
[2024-06-28] MEDS ORDERED: BENZONATATE 100 MG CAPSULE PO PRN (17:51)
[2024-06-28] MEDS ORDERED: LORazepam 0.5 MG TAB PO PRN (17:51)
[2024-06-28] MEDS ORDERED: DEXTROSE 50% 50 ML SYRINGE IV PRN (17:51)
[2024-06-28] MEDS ORDERED: GLUCOSE 40% GEL 15 GM TUBE PO PRN (17:51)
[2024-06-28] MEDS ORDERED: LACTULOSE SYRUP 10 GM/15 ML BTL 960 ML PO PRN (18:04)
[2024-06-28] MEDS: INSULIN ASPART PER UNIT CHARGE SC SCH (19:25)
[2024-06-28] MEDS: oxyCODONE HCL IR 5 MG TAB (IMMEDIATE RELEASE) PO STA (20:05)
[2024-06-28 20:41] LABS: Calcium 8.4 mg/dl (8.6-10.3)
[2024-06-28 20:53] LABS: BUN Creatinine Ratio 7.9 (10-20); Creatinine Clr Calc Pharmacy 6.8 ml/min
[2024-06-28] MEDS: PANTOprazole 40 MG TAB PO SCH (21:24)
[2024-06-28] MEDS: busPIRone 5 MG TAB PO SCH (21:24)
[2024-06-28] MEDS: carvediloL 6.25 MG TAB PO SCH (21:24)
[2024-06-28] MEDS: CALCIUM ACETATE 667 MG CAP/TAB PO SCH (21:24)
[2024-06-28] MEDS: VENLAFAXINE HCL XR 75 MG CAPXR PO SCH (21:24)
[2024-06-28] MEDS: OLANZapine 5 MG TABLET PO SCH (21:24)
[2024-06-28] MEDS: HEPARIN SOD 5,000 UNIT/0.5 ML VIAL SQ SCH (21:25)
[2024-06-28] MEDS: hydrALAZINE HCL 25 MG TAB PO SCH (21:25)
[2024-06-28] MEDS: DICLOFENAC SOD 1% GEL 100 GM TUBE EXT SCH (21:32)
--- OUTSIDE RECORDS SUMMARY | 2024-06-29 02:52 | External Medical Summary | Summary of Care ---
Author Name Unknown Organization [facility] Address [address] [place] [address] Phone [phone] Care Team Providers Care Driver Starting Gate Name Role Phone Julito Burt MD Primary Care Provider +1- [phone] Reason for Visit * Reason Onset Date Comments Belt Maker Documentation 06/23/2024 My CareChoices/Advance Care Planning Encounter Details Date Type Department Care Team (Late st Contact Info) Description 06/23/2024 Telephone Care Coordination [address], [place] [id number] Stacia Gauthier, TRAFFIC CIRCUIT ENGINEER [address], [place] [phone] Belt Maker Documentation ([employer]... 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 11/01/2023 Assessment & Plan (11/01/2023 2:18 PM EDT): Diet controlled Most recent A1c 6.4% 05/2023 Age-related osteoporosis wit [place] current pathological fracture 11/01/2023 Assessment & Plan [...] guidance Additional Comments: Stable today Continues dialysis ,,wed Diabetes mellitus due to und erlying condition with 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, bilateral 07/05/2020 Chronic diastolic congestive heart failure 07/05 Esophageal dysmotility 07/05/2020 PMR (polymyalgia rheumatica) 06/07/2020 Assessment & Plan (01/26/2024 9:34 AM EDT): No longer on prednisone Using oxycodone sparingly for pain DDD (degenerative disc disease), lumbar 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 Conversation metrics needed in ACP note: Understanding of Illness Understanding of Prognosis Hopes Fears Surrogate Decision Maker POLST Reminder serious illness conversation needs to be entered in the new ACP activity flowsheet rows 06/13/2024. Thank you, [facility] [phone] documented in this encounter Plan of Treatment Upcoming Encounters Date Type Department Care Team (Late st Contact Info) Description 06/26/2024 3:00 PM EST Home Visit [facility], [address] [place] [address] Dewey Guillory PA-C [address] [place] [address] 07/24/2024 9:00 AM EST [facility] [address] [place] [address] Dewey Guillory PA-C [address] [place] [address] 08/02/2024 1:30 PM EST [facility] Visit [facility], [facility] [address] [place] [address] Becki Santillan RN [address] [place] [address] Health Maintenance Due Date Last Done Comments [...] this encounter Medical Devices Implanted Type Area Machine Room Operator Device Identifier Shelf Expiration Date Model / Serial / Lot 6 Mm X 14 Cm Cook Medical Doris Embolization Coil Implanted:Qty: 2 on 10/21/2015 by Robb Rogel MD at [facility] [place] Right: Lower Arm 07/04/2020 [id number] / [id number] / [id number] Description:6 mm x 14 cm Middle School Baseball Coach k Medical Doris Embolization Coil 6 Mm X 14 Cm Cook Medical Doris Embolization Coil Implanted:Qty: 2 on 10/21/2015 by Robb Rogel MD at [facility] Right: Lower Arm 07/30/2019 [id number] / [id number] / [id number] Description:6 mm x 14 cm Middle School Baseball Coach k Medical Doris Embolization Coil 4 Mm X 14 Cm Cook Medical Doris Embolization Coil Implanted:Qty: 3 on 10/21/2015 by Robb Rogel MD at [facility] [place] Right: Lower Arm 07/05/2020 [id number] / [id number] / [id number] Description:4 mm x 14 cm Middle School Baseball Coach k Medical Doris Embolization Coil 4 Mm X 14 Cm Cook Medical Doris Embolization Coil Implanted:Qty: 5 on 10/21/2015 by Robb Rogel MD at [facility] [place] Right: Lower Arm 07/30/2019 [id number] / [id number] / [id number] Description:4 mm x 14 cm [employer] Baseball Coach k Medical Doris Embolization Coil 4 Mm X 3mm X 2.6 Cm Cook Medical Tornado Embolization Coil Implanted:Qty: 2 on 10/21/2015 by Robb Rogel MD at [facility] Right: Lower Arm 07/18/2020 [id number] / [id number] / [id number] Description:4 mm x 3mm x 2.6 cm [...] Agen t (per Health Care Power of Canoe Maker document) Care Teams Driver Starting Gate Relationship Specialty Start Date End Date Pro, Julito Chris MD [address] [place] [facility] [place] [address] PCP - General Internal Medicine 01/24/20 documented as of this encounter
[2024-06-29] MEDS: LEVOTHYROXINE SODIUM 100 MCG TABLET PO SCH (05:55)
[2024-06-29] MEDS: COUGH DROP (SUGAR FREE) LOZ 24 LOZ/1 BOX BUCCAL PRN (06:18)
[2024-06-29 08:02] LABS: Basophils # (auto) 0.07 K/uL (0.00-0.20); Basophils % (auto) 0.7 %; Eosinophils # (auto) 0.18 K/uL (0.00-0.50); Eosinophils % (auto) 1.9 %; Hematocrit (blood only) 31.7 % (37.0-47.0); Hemoglobin 9.7 g/dl (12.0-16.0); Immature Granulocytes # (auto) 0.04 K/uL (0.01-0.20); Immature Granulocytes % (auto) 0.4 %; Lymphocytes # (auto) 1.25 K/uL (1.20-3.40); Lymphocytes % (auto) 13.2 %; Mean Corpuscular Hemoglobin 32.9 pg (25.0-34.0); Mean Corpuscular Hgb Conc 30.6 g/dL (32.0-36.0); Mean Corpuscular Volume 107.5 fL (80.0-100.0); Mean Platelet Volume 9.6 fL (9.4-12.4); Monocytes # (auto) 1.29 K/uL (0.11-0.59); Monocytes % (auto) 13.6 %; Neutrophils # (auto) 6.65 K/uL (1.40-6.50); Neutrophils % (auto) 70.2 %; Platelet Count 170 K/uL (130-400); RDW Coefficient of Variation 15.5 % (11.5-14.5); RDW Standard Deviation 59.7 fL (36.4-46.3); Red Blood Count 2.95 M/uL (4.20-5.40); White Blood Count 9.48 K/ul (4.8-10.8)
[2024-06-29] MEDS: LANTUS PER UNIT CHARGE SQ SCH (08:31)
[2024-06-29 08:36] LABS: BUN Creatinine Ratio 8.5 (10-20); Calcium 8.8 mg/dl (8.6-10.3); Creatinine Clr Calc Pharmacy 6.3 ml/min; Magnesium 2.5 mg/dl (1.7-2.4); Potassium 6.8 mmol/L (3.5-5.1)
[2024-06-29 09:49] LABS: Troponin I High Sensitivity 56.9 pg/ml (0-14)
--- NOTE | 2024-06-29 09:51 | Nephrology Consultation ---
Date of Consultation June 29, 2024 Assessment & Plan (1) ESRD on dialysis: (2) Acute hyperkalemia: (3) RSV (acute bronchiolitis due to respiratory syncytial virus): (4) Anemia: (5) Hypertension: (6) Diabetes mellitus: Plan 79-year-old female with ESKD, on hemodialysis Wednesday, , Wednesday, admitted with 3 days history of cough, congestion, shortness of breath and found to have RSV positive. Had dialysis Wednesday, tolerated well. Blood pressure elevated. Has critical hyperkalemia, K was 6.8 this morning --HD now with 2 K bath for K of 6.8 and volume overload, aim for 3 L UF. --Dose medications for eGFR less than 10, Low K diet --Renal vitamins daily --continue PhosLo TIDM --Epogen 96012 untis x 1 dose with HD --rt arm precaution ( AVF) Thank you for allowing me to participate in Ms. Patrick's care. History of Present Illness Reason for Consultation: ESRD, need for HD, Hyperkalemia Attending Physician: Mary Camejo MD History of Present Illness Ms. 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 Nephrology consult requested for management of HD and hyperkalemia. EMR records were reviewed in detail during visit. Shirley presented to ER on 06/28 with 3 days history of cough, nasal congestion and shortness of breath. She normally uses 3 L nasal cannula at home for history of severe COPD. On admission she was noted to be positive for RSV. Blood pressure has been elevated since admission. Chest x-ray on admission revealed cardiomegaly and pulmonary congestion. EKG showed widened QRS and bradycardia. Lab was notable for potassium of 5.7 and she was given 1 dose of Lokelma yesterday. She has history of repeated hospitalization for hyperkalemia and she has been having dialysis regularly and taking Lokelma 10 g daily. Hb this morning was 9.7. ESKD on HD at [facility] since 2016 (TTS 3.5 hr 2K 2Ca 1Mg F-180NR 350/800 EDW 90 kg).Has been getting HD regularly. Last dialysis was Wednesday as a regular schedule. Has h/o hyperkalemia, has been on Lokelma daily.She has chronic respiratory failure with hypoxic and has been maintained on 3L NC as well as HFpEF with chronic pulmonary hypertension. She was started on dialysis this morning, currently tolerating dialysis, tolerating UF but to remain quite tired and lethargy. Blood pressure slightly elevated. Allergies Allergy/AdvReac Type Severity Reaction Status Date / Time lisinopril AdvReac Intermediate cough Verified 06/28/24 14:59 Home Medications Medication Instructions Recorded Confirmed Type vit B complx, C-iron 8 mg-folic 1 tab PO QDL 02/27/20 06/28/24 History acid 800 mcg-D3 1,000 unit-zinc tablet (ProRenal) lancets 33 gauge (WymseeTouch Delica #100 ea 11/27/20 06/28/24 Rx Lancets) calcium acetate 667 mg tablet 667 mg PO UD 12/17/20 06/28/24 History blood sugar diagnostic (WymseeTouch #300 ea 07/31/22 06/28/24 Rx Verio test strips) blood-glucose meter (WymseeTouch #1 ea 07/31/22 06/28/24 Rx Verio Meter) ondansetron 8 mg disintegrating 8 mg PO Q8H PRN Nausea #90 tabs 07/31/22 06/28/24 Rx tablet Oxygen Home #1 ea 09/04/22 06/28/24 Rx lactulose 10 gram/15 mL oral 15 ml PO DAILY PRN Constipation 08/13/23 06/28/24 Rx solution #1,350 mL buspirone 5 mg tablet 5 mg PO BID #180 tabs 09/16/23 06/28/24 Rx pantoprazole 40 mg tablet,delayed 40 mg PO BID 90 days #180 tabs 09/16/23 06/28/24 Rx release hydralazine 25 mg tablet 25 mg PO TID 02/21/24 06/28/24 History sodium zirconium cyclosilicate 10 10 g PO DAILY #30 ea 02/23/24 06/28/24 Rx gram oral powder packet lorazepam 1 mg tablet 0.5 mg (1/2 x 1 mg) PO BID PRN 03/22/24 06/28/24 Rx anxiety #30 tabs gabapentin 300 mg capsule 300 mg PO 3XWK #36 caps 04/06/24 06/28/24 Rx cyanocobalamin (vitamin B-12) 500 500 mcg PO QAM #30 tabs 04/12/24 06/28/24 Rx mcg tablet diltiazem HCl 30 mg tablet 30 mg PO Q8H PRN palpitations #30 06/16/24 06/28/24 Rx tabs carvedilol 6.25 mg tablet 6.25 mg PO BID 06/28/24 06/28/24 History cholecalciferol (vitamin D3) 50 50 mcg PO QAM 06/28/24 06/28/24 History mcg (2,000 unit) capsule levothyroxine 100 mcg tablet 100 mcg PO QAM 06/28/24 06/28/24 History olanzapine 10 mg tablet 5 mg PO BID 06/28/24 06/28/24 History venlafaxine 75 mg capsule,extended 75 mg PO HS 06/28/24 06/28/24 History release 24 hr Patient History Medical History Chronic respiratory failure with hypoxia Acute and chronic respiratory failure with hypoxia Acute and chronic respiratory failure with hypercapnia Weakness generalized Cellulitis of right leg Morbid obesity with BMI of 40.0-44.9, adult Diabetic eyes Hallucinations Fatigue Abnormal EKG Acute electrocardiogram changes Transaminitis Elevated troponin Myoclonus Acute hyperkalemia Hyperkalemia, diminished renal excretion Laceration of left lower extremity Hernia, hiatal GERD without esophagitis Macular puckering, bilateral Panniculitis Tubular adenoma of colon Hypertension History of thrombophlebitis Arthritis Surgical History History of tonsillectomy S/P repair of paraesophageal hernia History of nasal septoplasty History of cataract surgery History of bladder surgery S/P arteriovenous (AV) fistula creation S/P rotator cuff repair S/P hysterectomy H/O: hysterectomy Family History Mother Leukemia Cerebral aneurysm Hypertension Anxiety Diabetes Cancer Heart disease Grandmother Hypertension Father Osteoarthritis COPD (chronic obstructive pulmonary disease) Diabetes Hearing loss Sister Diabetes Myocardial infarction COPD (chronic obstructive pulmonary disease) Hypertension Brother Myocardial infarction Diabetes Cancer Stomach cancer Other No family history of bleeding disorder Denies family history of Ovarian cancer Prostate cancer Breast cancer Colorectal cancer Stroke Asthma Social History Smoking Status: Never smoker Second Hand Exposure: No; Do You Dip or Chew Tobacco: No; Hx Alcohol Use: No Hx Substance Use: No Preferred Language: Albanian Communication Ability: Effective Visual Impairment: No Limitations Hearing Ability: Normal Clipper And Turner Required: No Beliefs That Will Affect Care: None marital status: Current Living Situation: Spouse Current Living Situation Comment: Lives with current occupational status: retired How many Children do You have: 1 Other Information That Helps Us Care for You: No Feels Safe at Home: Yes Safety Concerns: Feels Safe At This Time Childhood Exposure to Second-Hand Smoke: No Dental Care, Regularly: No Physical Activity Frequency: 1-2 Times per Week Seatbelt Use: always Sunscreen Use: No Assistive Devices: CPAP, Denture - Upper, Glasses and Oxygen - Continuous Review of Systems Review of Systems: All systems reviewed & are unremarkable except as noted in HPI & below Physical Exam Constitutional: WD/WN, vitals as above + ill appearing; no acute distress Eyes: + anicteric sclerae Neck: normal visual inspection Respiratory: no respiratory distress Auscultation: + diminished lung sounds Cardiovascular: RRR, no murmur, no edema Gastrointestinal (Abdomen): Inspection/Auscultation: abdomen normal to inspection Percussion/Palpation: abdomen soft; abdomen nontender Musculoskeletal: Extremities: extremities normal to inspection Skin: no rashes, warm and dry Neurologic: no focal motor deficits Psychiatric: Orientation: alert and oriented x 3 Affect: euthymic affect Results & Data Vital Signs (Past 12 Hours) Vital Signs Temp Pulse Pulse Pulse Resp BP Pulse Ox 06/29/24 09:16 37.6 C H 85 06/29/24 07:40 06/29/24 07:34 37.0 C 06/29/24 07:10 38.3 C H 94 H 18 167/72 H 92 06/29/24 03:30 86 17 97 06/29/24 03:10 38.0 C H 89 22 148/76 H 93 06/28/24 23:03 37.1 C 80 18 136/72 94 06/28/24 22:48 81 15 96 06/28/24 22:00 78 O2 Del Method O2 Flow Rate 06/29/24 09:16 06/29/24 07:40 Nasal Cannula 3 06/29/24 07:34 06/29/24 07:10 Nasal Cannula 2 06/29/24 03:30 3 06/29/24 03:10 CPAP 06/28/24 23:03 CPAP 06/28/24 22:48 1 06/28/24 22:00 PG Care Time/CCT Total # of Minutes Spent Total Time Spent with Patient: Total time spent is greater than 50% in coordination of care (as documented) at patient's floor/unit and/or counseling patient: Coding Level of Care Code 40717 INT INP/OBS CARE 3MIN Diagnoses ESRD on dialysis N18.6; Z99.2 Acute hyperkalemia E87.5 RSV (acute bronchiolitis due to respiratory syncytial virus) J21.0 Anemia D64.9 Anemia type: due to chronic kidney disease Primary hypertension I10 Hypertension type: primary hypertension Type 2 diabetes mellitus with chronic kidney disease on chronic dialysis, with long-term current use of insulin E11.22; N18.6; Z79.4; Z99.2 Diabetes mellitus type: type 2 Diabetes mellitus credit reporting clerk insulin use: with retirement use Diabetes mellitus complication status: with kidney complications Diabetes mellitus complication detail: with chronic kidney disease Chronic kidney disease stage: on chronic dialysis (4) Anemia Anemia type: due to chronic kidney disease (5) Hypertension Hypertension type: primary hypertension Qualified Code(s): I10 - Essential (primary) hypertension (6) Diabetes mellitus Diabetes mellitus type: type 2 Diabetes mellitus retirement insulin use: with retirement use Diabetes mellitus complication status: with kidney complications Diabetes mellitus complication detail: with chronic kidney disease Chronic kidney disease stage: on chronic dialysis Qualified Code(s): E11.22 - Type 2 diabetes mellitus with diabetic chronic kidney disease; N18.6 - End stage renal disease; Z79.4 - speech language therapist (current) use of insulin; Z99.2 - Dependence on renal dialysis
[2024-06-29] MEDS: HEPARIN SOD (PORCINE) 1000 UNIT/ML IV SCH (11:25)
[2024-06-29] MEDS: HEPARIN SOD (PORCINE) 1000 UNIT/ML IV ONE (11:25)
[2024-06-29] MEDS: EPOETIN ALFA 10,000 UNITS/ML VIAL IV STA (11:30)
[2024-06-29] MEDS: SODIUM ZIRCONIUM CYCLOSILICATE 10 GM PACKET PO SCH (12:53)
[2024-06-29] MEDS: NEPHROCAPS PO SCH (13:49)
[2024-06-29] MEDS: GABAPENTIN 300 MG CAP PO SCH (16:50)
[2024-06-29] MEDS: ACETAMINOPHEN 325 MG TAB PO PRN (17:05)
--- NOTE | 2024-06-29 17:05 | Hospitalist Progress Note ---
Date of Service June 29, 2024 Assessment & Plan (1) RSV (acute bronchiolitis due to respiratory syncytial virus): (2) Chronic respiratory failure with hypoxia: (3) ESRD on dialysis: (4) Acute hyperkalemia: Plan This pt is a 79-year-old female with PMH of ESRD on HD, restrictive lung disease, cardiomyopathy, T2DM, seizure activity, CHF, TASH, HTN, paroxysmal atrial tachycardia, and severe COPD. She presented on 06/28 for MUNOZ, sore throat, productive cough, and nasal congestion x 3 days, found to be RSV positive on admission and with hyperkalemia. CXR without evidence of pneumonia and not hypoxic more than her baseline. She is extremely fatigued and unable to ambulate due to generalized weakness. #RSV infection/generalized weakness-no PNA or worsening hypoxia, with ambulatory dysfunction, cough, rhinorrhea, and fever. CXR with left base atelectasis and right hilar fullness -continue Supportive care -Acetaminophen as needed for pain/fever, Zofran for nausea -add guaifenesin DM at her request, asher singh -PT/OT consults pending #Chronic hypoxic respiratory failure/COPD-Patient is on supplemental oxygen (3L NC) at baseline -continue CPAP at bedtime -Continuous pulse oximetry -Titrate oxygen supplementation to maintain SpO2 ~92% #ESRD on HD/Hyperkalemia-On dialysis Wednesday//Wednesday, K+ 5.7 on arrival, Lokelma x 1 given in ED. Now s/p urgent HD on 06/29 with low K+ bath and removed 5 L UF -Nephrology consult appreciated -Avoid nephrotoxic agents -continue Nephrocaps, phosphate binders -received epo on 06/29 for anemia -continue lokelma daily #U2UJ-Zyop A1c at 6.6% on 03/22/2024, with some hyperglycemia on arrival from stress of infection -Continue basal and bolus insulin, adjust as needed -T2DM diet,BSG ACHS #HTN-BPs stable -continue home hydralazine, Coreg #Anemia of Chronic Kidney Disease- Hb 9.7 and stable from previous, No signs of active bleeding on physical exam -gave epo x 1 on 06/29 -follow CBC #GERD-continue PPI #Depression/Anxiety-continue olanzapine, venlefaxine, buspar, and lorazepam prn #Hypothyroidism-TSH 2.9 in 02/2024 -continue LT4 DVT proph-heparin SQ Disposition:continued stay PCU, await PT/OT evals Admission and Anticipated Discharge Date Admission Date: June 28, 2024 Subjective Seen after return from HD. Is extremely fatigued, coughing, with runny nose, fever. No appetite and has some nausea. Tele with some PAT runs, SR 1st degree AVB, IVCD, PACs, normal rates Physical Exam Constitutional: WD/WN, vitals as above Respiratory: + cough; + abnormal respiratory effort ( poor effort) Auscultation: lungs clear to auscultation bilaterally; no crackles and no wheezes Cardiovascular: Rate/Rhythm: regular rate and regular rhythm Heart Sounds: no murmur Extremities: + edema (trace edema of legs) Gastrointestinal (Abdomen): normal bowel sounds, soft, nontender, no hepatosplenomegaly Psychiatric: Orientation: alert, oriented x 3 and cooperative Affect: + depressed affect Results & Data Results & Data Vital Signs (Past 12 Hours) Vital Signs Temp Pulse Pulse Pulse Resp BP BP 06/29/24 17:02 37.6 C H 06/29/24 15:26 38.2 C H 84 18 129/65 06/29/24 14:00 37.1 C 133/70 06/29/24 13:50 36.8 C 82 145/62 H 06/29/24 13:00 80 131/60 06/29/24 12:30 80 119/66 06/29/24 12:00 78 130/66 06/29/24 11:30 82 124/47 L 06/29/24 11:00 82 130/66 06/29/24 10:30 84 150/80 H 06/29/24 10:00 84 152/83 H 06/29/24 09:30 83 180/87 H 06/29/24 09:24 85 162/84 H 06/29/24 09:16 37.6 C H 85 06/29/24 08:00 79 06/29/24 07:40 06/29/24 07:34 37.0 C 06/29/24 07:10 38.3 C H 94 H 18 167/72 H Pulse Ox O2 Del Method O2 Flow Rate 06/29/24 17:02 06/29/24 15:26 99 Room Air 06/29/24 14:00 06/29/24 13:50 06/29/24 13:00 06/29/24 12:30 06/29/24 12:00 06/29/24 11:30 06/29/24 11:00 06/29/24 10:30 06/29/24 10:00 06/29/24 09:30 06/29/24 09:24 06/29/24 09:16 06/29/24 08:00 06/29/24 07:40 Nasal Cannula 3 06/29/24 07:34 06/29/24 07:10 92 Nasal Cannula 2 Laboratory Results CBC, BMP, mag level reviewed PG Care Time/CCT Total # of Minutes Spent Total Time Spent with Patient: Total time spent is greater than 50% in coordination of care (as documented) at patient's floor/unit and/or counseling patient: Coding Level of Care Code 30963 SUB INP/OBS CARE 3/50MIN Diagnoses RSV (acute bronchiolitis due to respiratory syncytial virus) J21.0 Chronic respiratory failure with hypoxia J96.11 ESRD on dialysis N18.6; Z99.2 Acute hyperkalemia E87.5
[2024-06-29] MEDS: guaiFENesin/DEXTROM SYRUP 200MG/20MG 10ML UDC PO PRN (18:29)
[2024-06-30 07:41] VITALS: RESP 18
--- NOTE | 2024-06-30 08:29 | Nephrology Progress Note ---
Date of Service June 30, 2024 Assessment & Plan (1) ESRD on dialysis: (2) Acute hyperkalemia: (3) RSV (acute bronchiolitis due to respiratory syncytial virus): (4) Anemia: (5) Hypertension: (6) Diabetes mellitus: Plan 79-year-old female with ESKD, on hemodialysis Wednesday, , Wednesday, admitted with 3 days history of cough, congestion, shortness of breath and found to have RSV positive. Had dialysis Wednesday, tolerated well. Blood pressure improved. Hyperkalemia resolved, K was 4.8 this morning. Had HD yesterday. --Dose medications for eGFR less than 10, Low K diet --Renal vitamins daily --continue PhosLo TIDM --Epogen 46546 untis x 1 dose given with HD on 06/29/24 --rt arm precaution ( AVF) --OK to be discharged as clinically doing much better, close to her baseline, electrolyte abnormality resolved, volume status acceptable. Next dialysis tomorrow. Admission and Anticipated Discharge Date Admission Date: June 28, 2024 Jorge Watson was seen and evaluated this morning. She reports overall feeling well, denies shortness of breath or chest pain. Had dialysis yesterday, potassium this morning 4.7. Blood pressure fair. Has been getting Lokelma. Review of Systems Review of Systems: All systems reviewed & are unremarkable except as noted in Subjective Physical Exam Constitutional: WD/WN, vitals as above no acute distress Eyes: + anicteric sclerae Neck: normal visual inspection Respiratory: no respiratory distress Auscultation: + diminished lung sounds Cardiovascular: RRR, no murmur, no edema Extremities: + AV fistula (Rt RC AVF) Musculoskeletal: Extremities: extremities normal to inspection Skin: no rashes, warm and dry Neurologic: no focal motor deficits Psychiatric: Orientation: alert and oriented x 3 Affect: euthymic affect Results & Data Vital Signs (Past 12 Hours) Vital Signs Temp Pulse Pulse Pulse Resp BP Pulse Ox 06/30/24 07:40 36.8 C 74 18 136/72 94 06/30/24 03:58 36.6 C 65 20 101/56 L 94 06/30/24 03:32 65 15 94 06/29/24 23:28 36.6 C 65 20 104/67 93 06/29/24 22:02 68 06/29/24 21:00 73 18 98 O2 Del Method O2 Flow Rate FiO2 06/30/24 07:40 Nasal Cannula 4 06/30/24 03:58 CPAP 06/30/24 03:32 35 06/29/24 23:28 CPAP 06/29/24 22:02 06/29/24 21:00 3 PG Care Time/CCT Total # of Minutes Spent Total Time Spent with Patient: Total time spent is greater than 50% in coordination of care (as documented) at patient's floor/unit and/or counseling patient: Coding Level of Care Code 54740 SUB INP/OBS CARE MIN Diagnoses ESRD on dialysis N18.6; Z99.2 Acute hyperkalemia E87.5 RSV (acute bronchiolitis due to respiratory syncytial virus) J21.0 Anemia D64.9 Anemia type: due to chronic kidney disease Primary hypertension I10 Hypertension type: primary hypertension Type 2 diabetes mellitus with chronic kidney disease on chronic dialysis, with long-term current use of insulin E11.22; N18.6; Z79.4; Z99.2 Chronic kidney disease stage: on chronic dialysis Diabetes mellitus complication detail: with chronic kidney disease Diabetes mellitus complication status: with kidney complications Diabetes mellitus supervisor intermediates insulin use: with supervisor intermediates use Diabetes mellitus type: type 2 (4) Anemia Anemia type: due to chronic kidney disease (5) Hypertension Hypertension type: primary hypertension Qualified Code(s): I10 - Essential (primary) hypertension (6) Diabetes mellitus Chronic kidney disease stage: on chronic dialysis Diabetes mellitus complication detail: with chronic kidney disease Diabetes mellitus complication status: with kidney complications Diabetes mellitus supervisor intermediates insulin use: with mcc use Diabetes mellitus type: type 2 Qualified Code(s): E11.22 - Type 2 diabetes mellitus with diabetic chronic kidney disease; N18.6 - End stage renal disease; Z79.4 - exterminator helper termite (current) use of insulin; Z99.2 - Dependence on renal dialysis
[2024-06-30 08:33] LABS: BUN Creatinine Ratio 6.3 (10-20); Calcium 8.6 mg/dl (8.6-10.3); Creatinine Clr Calc Pharmacy 9.4 ml/min; Magnesium 2.2 mg/dl (1.7-2.4); Potassium 4.7 mmol/L (3.5-5.1)
[2024-06-30 11:31] VITALS: BP 107/62; PULSE 69; TEMP 98.1; O2SAT 99
--- NOTE | 2024-06-30 13:51 | Discharge Summary ---
Discharge Summary Date of Service June 30, 2024 Principal Dx & Hospital Course #1 = Principal Diagnosis (1) RSV (acute bronchiolitis due to respiratory syncytial virus): (2) Chronic respiratory failure with hypoxia: (3) ESRD on dialysis: (4) Acute hyperkalemia: Plan This pt is a 79-year-old female with PMH of ESRD on HD, restrictive lung disease, cardiomyopathy, T2DM, seizure activity, CHF, TASH, HTN, paroxysmal atrial tachycardia, and severe COPD. She presented on 06/28 for MUNOZ, sore throat, productive cough, and nasal congestion x 3 days, found to be RSV positive on admission and with hyperkalemia. CXR without evidence of pneumonia and not hypoxic more than her baseline. She is extremely fatigued and unable to ambulate due to generalized weakness. #RSV infection/generalized weakness-no PNA or worsening hypoxia, with ambulatory dysfunction, cough, rhinorrhea, and fever. CXR with left base atelectasis and right hilar fullness-cannot exclude hilar lymphadenopathy She was treated with supportive care and remained on her home dose of oxygen at 3 L nasal cannula. She felt especially fatigued with a fever on 06/29 but this resolved. She was feeling much improved after receiving some cough syrup and was stable for discharge to home on 06/30 -continue Supportive care at home -Acetaminophen as needed for pain/fever, Zofran for nausea -Continue guaifenesin DM OTC as needed for cough -PT/OT consults recommend return home -Repeat chest x-ray in 2 weeks to ensure that hilar fullness is resolved #Chronic hypoxic respiratory failure/COPD-Patient is on supplemental oxygen (3L NC) at baseline and remains on her baseline O2 -continue CPAP at bedtime -She is not on any maintenance inhalers #ESRD on HD/Hyperkalemia-On dialysis Wednesday//Wednesday, K+ 5.7 on arrival, Lokelma x 1 given in ED. Now s/p urgent HD on 06/29 with low K+ bath and removed 5 L UF. Her potassium is back to normal on the day of discharge -Nephrology consult appreciated-resume usual dialysis schedule after discharge -Avoid nephrotoxic agents -continue Nephrocaps, phosphate binders -received epo on 06/29 for anemia -continue lokelma daily -Continue low potassium and renal diet on discharge #[id number] A1c at 6.6% on 03/22/2024, with some hyperglycemia on arrival from stress of infection. She is not on any medications as an outpatient for diabetes and does not need to be. Received some low doses of basal and bolus insulin while here and had improvement -T2DM diet on discharge #HTN-BPs stable -continue home hydralazine, Coreg #Anemia of Chronic Kidney Disease- Hb 9.7 and stable from previous, No signs of active bleeding on physical exam -gave epo x 1 on 06/29 -follow CBC as an outpatient #GERD-continue PPI #Depression/Anxiety-continue olanzapine, venlefaxine, buspar, and lorazepam prn #Hypothyroidism-TSH 2.9 in 02/2024 -continue LT4 DVT proph-heparin SQ Disposition: Stable for discharge to home, discussed care with at the bedside. Patient much improved and both patient and feel ready for discharge Notes For Next Care Provider Repeat chest x-ray in 2 weeks with PCP to ensure hilar fullness is resolved Medication Changes From Visit None Admission HPI Per Admitting Provider Shirley is a 79-year-old female with PMH of ESRD on HD, restrictive lung disease, cardiomyopathy, T2DM, seizure activity, CHF, TASH, HTN, paroxysmal atrial tachycardia, and severe COPD. She presented on 06/28 for MUNOZ, sore throat, productive cough, and nasal congestion x 3 days. She reports her SOB is mainly with exertion, not at rest. She is on supplemental oxygen at baseline (3L NC) due to history of severe COPD, and uses CPAP at night. Patient has been taking Tylenol at home for her body aches, but denies having any fevers at home. She did not take her regular morning medicines today. Her daughter helps to manage her medicine by placing them in pillboxes at home. She lives with her at home. She ambulates with a walker at baseline; denies any recent falls. Patient receives dialysis Wednesday, , and Wednesday; she did attend her last dialysis session yesterday on 06/27. Patient does have history of a blood clot in her left leg (many years ago), but is not currently on blood thinners. She denies smoking, tobacco use, recent alcohol use. Patient is mildly hypertensive 163/85 at admission; vitals otherwise stable. ED course: ROS: Patient endorses cold intolerance, body aches, fatigue, sinus congestion, runny nose, MUNOZ, productive cough (green sputum production), pleuritic CP, abdominal soreness, and chronic neuropathy in the legs. Patient denies fever, chills, night-sweats, dizziness, lightheadedness, ROJAS, rashes, chest pain, hemoptysis, N/V/D, constipation, burning with urination, blood in the urine/stool, or pain in the legs. Discharge Exam Constitutional WD/WN, vitals as above Respiratory Auscultation: lungs clear to auscultation bilaterally; no crackles and no wheezes Cardiovascular Rate/Rhythm: regular rate and regular rhythm Heart Sounds: no murmur Psychiatric Orientation: alert, oriented x 3 and cooperative Discharge Plan Discharge Items Patient Disposition: Home - Home Health Services Reason For Visit: RSV Discharge Diagnosis: RSV, generalized weakness Hyperkalemia Activity: As commented below Lifting: Gradually increase as tolerated Bathing: No limitations Weightbearing: Full weightbearing Non-emergency contact: Primary Care Provider and Director Payment Call non-emergency contact if: you have any medication questions and your symptoms worsen Follow-up/Referrals: Julito Burt MD [Primary Care Provider] - (Follow-up within 1 to 2 weeks) Diet: Dialysis Renal and Low Potassium (2gm) Addtl Attending Provider Instructions: You were admitted with weakness from a viral infection called RSV (respiratory syncytial virus). Your potassium levels were high and this was treated with dialysis. You are now much improved and your fevers have gone away. You were stronger and able to walk about the room. There is no specific treatment for RSV. If you develop worsening of your symptoms, please contact your doctor or return to the hospital if severe. Please resume your usual dialysis schedule on Wednesday. Pending Studies at Discharge: No Stand-Alone Forms: My App in the Air, Smoking Cessation Medications and DC Order Prescriptions: New diclofenac sodium [Voltaren Arthritis Pain] 1 % Gel 2 g EXT TID Qty: 100 0RF Rx Instructions: Please give tube from the hospital dextromethorphan-guaifenesin [Robitussin Cough-Chest Silvio DM] 5-100 mg/5 mL Li quid 10 ml PO Q6H PRN (Reason: cough) Qty: 120 0RF Rx Instructions: Zygf-ynt-lnzlsas Continued (DME) lancets [OneTouch Delica Lancets] 33 gauge [facility] [place] See Rx Instructions .ROUTE .MEDSUPPLY Qty: 100 3RF Rx Instructions: use to test twice daily (DME) OneTouch Verio test strips Strip See Rx Instructions .ROUTE .MEDSUPPLY Qty: 300 3RF Rx Instructions: test twice daily E11.9 (DME) blood-glucose meter [OneTouch Verio Meter] [facility] See Rx Instructions .ROUTE .MEDSUPPLY Qty: 1 0RF Rx Instructions: As directed E11.9 ondansetron 8 mg tablet,disintegrating 8 mg PO Q8H PRN (Reason: Nausea) Qty: 90 5RF lactulose 10 gram/15 mL solution 15 ml PO DAILY PRN (Reason: Constipation) Qty: 1350 3RF buspirone 5 mg tablet 5 mg PO BID Qty: 180 3RF pantoprazole 40 mg tablet,delayed release (DR/EC) 40 mg PO BID 90 Days Qty: 180 3RF gabapentin 300 mg capsule 300 mg PO 3XWK Qty: 36 1RF Rx Instructions: Wednesday, , wednesday after dialysis (DME) Oxygen Home Liters Per Minute See Rx Instructions .ROUTE .MEDSUPPLY Qty: 1 0RF Rx Instructions: 3 liters continuously lorazepam 1 mg tablet 0.5 mg PO BID PRN (Reason: anxiety) Qty: 30 0RF diltiazem HCl 30 mg tablet 30 mg PO Q8H PRN (Reason: palpitations) Qty: 30 5RF ProRenal 8 mg iron-800 mcg-1,000 unit tablet 1 tab PO QDL calcium acetate 667 mg Tablet 667 mg PO UD Rx Instructions: 1 cap with breakfast and lunch then 1 with supper olanzapine 10 mg tablet 5 mg PO BID Rx Instructions: 1/2 tab orally twice a day carvedilol 6.25 mg tablet 6.25 mg PO BID cholecalciferol (vitamin D3) 50 mcg (2,000 unit) capsule 50 mcg PO QAM venlafaxine 75 mg capsule,extended release 24hr 75 mg PO HS levothyroxine 100 mcg tablet 100 mcg PO QAM hydralazine 25 mg tablet 25 mg PO TID sodium zirconium cyclosilicate 10 gram powder in packet 10 g PO DAILY Qty: 30 5RF cyanocobalamin (vitamin B-12) 500 mcg Tablet 500 mcg PO QAM Qty: 30 0RF Discharge Orders: Discharge Order (Routine); Ordered 06/30/24 Ordered By: Mary Camejo Admission Data Admit Date/Time: 06/28/24 15:40 Attending Provider: Mary Camejo Admit Provider: Omar Mahajan Primary Care Provider: Julito Burt Other Providers: Omar Mahajan; Charlee Avendaño Hospital Stay Data Consultations 06/28/24 14:03 ED Decision to Admit Stat 06/28/24 15:15 Consult Nephrology Routine Pending Results Patient Have Any Pending Studies at Discharge: No Discharge Instructions Given to Patient (Per Discharging Provider) You were admitted with weakness from a viral infection called RSV (respiratory syncytial virus). Your potassium levels were high and this was treated with dialysis. You are now much improved and your fevers have gone away. You were stronger and able to walk about the room. There is no specific treatment for RSV. If you develop worsening of your symptoms, please contact your doctor or return to the hospital if severe. Please resume your usual dialysis schedule on Wednesday. Total Time Total Time Spent Total Time Spent (In Minutes): 35 minutes Total Time Includes: Examination of the Patient, Discharge Planning, Medication Reconciliation and Communication With Other Providers (Dr. Avendaño of nephrology) Coding Level of Care Code 84010 INP/OBS DISCH >30 MIN Diagnoses RSV (acute bronchiolitis due to respiratory syncytial virus) J21.0 Chronic respiratory failure with hypoxia J96.11 ESRD on dialysis N18.6; Z99.2 Acute hyperkalemia E87.5
== END 2024-06-30 17:14 | disposition home health service (06) | DRG 202 ==
LOC: ED 10:18 → EDINP 15:40 → SUATTDRO 15:40 → 2S 17:51

== ENCOUNTER 2024-09-30 09:04 | Inpatient (IN) ==
[2024-09-30] MEDS ORDERED: VANCOMYCIN CONSULT ACTIVE PRN (09:34)
--- NOTE | 2024-09-30 09:38 | Emergency Department Note ---
Impression & Plan Acute alteration in mental status, Acute respiratory acidosis, Acute hypotension ED Provider Note NAME: LITO MOHR AGE: 79 SEX: F : 1945 ARRIVES VIA: Walk-In INFORMANT: Patient, the patient's ED PROVIDER(S): Julito Andrews DO CHIEF COMPLAINT: Altered mental status HPI: The patient is a 79-year-old female who presented to the emergency department from dialysis for an evaluation of altered mental status. The patient's does give most of the history although the patient is able to answer questions. She did have a full round of dialysis. She has not been feeling well since this morning. She has noticed some burning with urination. She has a history of urinary tract infection. She had a evaluation at dialysis and they felt that the patient should be evaluated in the emergency department. She states that she still does not wish to have any intubation or CPR. The patient states that she has been compliant with her outpatient medications. No reported trauma was noted. The patient denies having any rectal bleeding. She does complain of whole body pain including chest pain and abdominal pain. She also complains of lower extremity pain. ROS: See above HPI for pertinent positives & negatives. A total of 10 systems reviewed and were otherwise negative. PAST MEDICAL HISTORY: See Below PAST SURGICAL HISTORY: See Below FAMILY HISTORY: See Below SOCIAL HISTORY: See Below HOME MEDICATIONS: See Below ALLERGIES: See Below VITALS: See Below PHYSICAL EXAMINATION: GENERAL: The patient is listless and slow to respond to questioning. She does follow commands appropriately but slowly. EYES: The conjunctivae are clear. The pupils are round and reactive. EARS, NOSE, MOUTH AND THROAT: The nose is without any evidence of any deformity. Mucous membranes are dry. NECK: The neck is nontender and supple. RESPIRATORY: Diminished breath sounds are noted throughout with rales at both bases. CARDIOVASCULAR: Regular rate and rhythm noted there no murmurs rubs or gallops normal S1 normal S2. GASTROINTESTINAL: The abdomen was distended. There is no guarding or rigidity noted. MUSCULOSKELETAL/EXTREMITIES: There is no evidence of gross deformity full range of motion is noted in the hips and shoulders. SKIN: Skin is cool and dry. Pedal edema was noted bilaterally. NEUROLOGIC: Patient is awake to verbal commands. She is oriented to person and place. She does recognize her significant other. There was no facial droop noted. There is no drift in the upper extremities noted. MEDICAL DECISION MAKING: The patient is a 79-year-old female who presented to the emergency department from dialysis. The patient had a full round of dialysis but was felt to be having alteration mental status. The patient did have some dysuria. She has a history of urinary tract infection according to her . She was hypotensive. This could be secondary to her recent dialysis but also could be secondary to sepsis. She was treated with empiric antibiotics. I discussed the patient's laboratory and radiographic studies with her and her . She was found to be retaining CO2 which could explain the patient's altered mental status. She was started on BiPAP. I discussed the patient's condition with the on-call [facility] hospitalist. They have agreed to evaluate the patient in the emergency department for further management and disposition. Triage Nursing notes reviewed. Prior medical records reviewed Vital Signs: reviewed and remarkable for elevated blood pressure. Differential diagnosis: Infection, hypoglycemia, electrolyte abnormalities, overdose, toxicologic, cardiac sources, intracerebral event, neurologic, trauma, as well as other pathologies. ER treatment provided: See below Diagnostics interpreted by me: ECG: EKG was obtained in the emergency department. My interpretation is normal sinus rhythm at 68 bpm. There is no ectopy. Poor R wave progression was noted. This was compared to a tracing from June 28, 2024. No changes were noted. Cardiac Monitoring: An order was placed for continuous cardiac monitoring. The monitor shows a rate of 65 bpm with sinus rhythm. Laboratory studies: As stated above and show below. Imaging studies: See below. Radiographic imaging was reviewed by myself Consultation(s): Dr. Suarez was notified about the patient. He will evaluate the patient in the emergency department. ED COURSE: Procedures: none Critical Care: I have personally spent greater than 45 minutes of critical care time in the direct management of this patient. This includes bedside care, interpretation of diagnostic studies, and testing, discussion with consultants, patient, and family members, and other required patient management activities. This 45 minutes is in excess of all separately billable procedures. Past Med/Surg History Problem List (Updated 09/30/24 @ 16:01 by Julito Andrews DO) Acute hypotension (Acute) Acute respiratory acidosis (Acute) Acute alteration in mental status (Acute) Toxic metabolic encephalopathy Stage III pressure ulcer of buttock (Acute) Chronic respiratory failure with hypoxia RSV (acute bronchiolitis due to respiratory syncytial virus) ESRD on dialysis (Acute) Pulmonary vascular congestion (Acute) Paroxysmal atrial tachycardia Stage II pressure ulcer of buttock (Acute) (HFpEF) heart failure with preserved ejection fraction Palpitation B12 deficiency PNA (pneumonia) Stage I pressure ulcer of buttock (Acute) Acute heart failure with preserved ejection fraction Acute respiratory failure with hypoxia and hypercarbia Acute hyperkalemia (Acute) Elevated troponin (Acute) Metabolic acidosis (Acute) Leukocytosis (Acute) AMS (altered mental status) (Acute) Earache on left Sore throat COPD, 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 Counseling regarding advanced directives and goals of care Palliative care by specialist AMS (altered mental status) (Acute) Confusion Metabolic encephalopathy Arthralgia of right foot Chronic kidney disease-mineral and bone disorder Hypertension Diabetes mellitus Anemia Coronary artery disease Hypothyroidism Vitamin D deficiency (Acute) Polyarthritis (Acute) Paresthesias (Acute) Obstructive sleep apnea (Acute) Insomnia (Acute) Dyslipidemia (Acute) Diabetic retinopathy (Acute) Depression with anxiety (Acute) Cardiomyopathy Restrictive lung disease (Acute) End-stage renal disease on hemodialysis (Acute) CHF (congestive heart failure) (Acute) Polymyalgia rheumatica Abnormal chest CT Hypertension (Acute) Weakness (Acute) Diverticulitis (Acute) Hiatal hernia with gastroesophageal reflux disease and esophagitis Early satiety Nausea & vomiting Type 2 diabetes mellitus with diabetic neuropathy (Acute) Right leg pain Leg edema, right Contusion of face Right facial numbness History of fracture of orbit (~06/20/21) Memory change Neuropathy Abnormal gait RLS (restless legs syndrome) Low back pain Seizure-like activity Elevated ferritin level Tremor Depression Anxiety Medical History Acute and chronic respiratory failure with hypoxia Acute and chronic respiratory failure with hypercapnia Weakness generalized Cellulitis of right leg Morbid obesity with BMI of 40.0-44.9, adult Diabetic eyes Hallucinations Fatigue Abnormal EKG Acute electrocardiogram changes Transaminitis Elevated troponin Myoclonus Acute hyperkalemia Hyperkalemia, diminished renal excretion Laceration of left lower extremity Hernia, hiatal GERD without esophagitis Macular puckering, bilateral Panniculitis Tubular adenoma of colon Hypertension History of thrombophlebitis Arthritis Surgical History History of tonsillectomy S/P repair of paraesophageal hernia History of nasal septoplasty History of cataract surgery History of bladder surgery S/P arteriovenous (AV) fistula creation S/P rotator cuff repair S/P hysterectomy H/O: hysterectomy Family History Mother Leukemia Cerebral aneurysm Hypertension Anxiety Diabetes Cancer Heart disease Grandmother Hypertension Father Osteoarthritis COPD (chronic obstructive pulmonary disease) Diabetes Hearing loss Sister Diabetes Myocardial infarction COPD (chronic obstructive pulmonary disease) Hypertension Brother Myocardial infarction Diabetes Cancer Stomach cancer Other No family history of bleeding disorder Denies family history of Ovarian cancer Prostate cancer Breast cancer Colorectal cancer Stroke Asthma Social History Smoking Status: Never smoker Second Hand Exposure: No; Do You Dip or Chew Tobacco: No; Hx Alcohol Use: No Hx Substance Use: No Preferred Language: Mozambican Communication Ability: Effective Visual Impairment: No Limitations Hearing Ability: Normal Wire Web Worker Required: No Beliefs That Will Affect Care: Samaritan Samaritan Beliefs: Yarsani marital status: Current Living Situation: Spouse Current Living Situation Comment: Lives with current occupational status: retired How many Children do You have: 1 Feels Safe at Home: Yes Childhood Exposure to Second-Hand Smoke: No Dental Care, Regularly: No Physical Activity Frequency: 1-2 Times per Week Seatbelt Use: always Sunscreen Use: No Assistive Devices: CPAP, Denture - Upper, Glasses, Oxygen - Continuous, Special Shoe, Walker and Wheelchair Allergies Allergies Allergy/AdvReac Type Severity Reaction Status Date / Time lisinopril AdvReac Intermediate cough Verified 09/30/24 11:19 Home Meds Home Medications Medication Instructions Recorded Confirmed vit B complx, C-iron 8 mg-folic 1 tab PO QDL 02/27/20 09/30/24 acid 800 mcg-D3 1,000 unit-zinc tablet (ProRenal) calcium acetate 667 mg tablet 1,334 mg PO TIDWMEAL 12/17/20 09/30/24 hydralazine 25 mg tablet 25 mg PO TID 02/21/24 09/30/24 carvedilol 6.25 mg tablet 6.25 mg PO BID 06/28/24 09/30/24 cholecalciferol (vitamin D3) 50 50 mcg PO QAM 06/28/24 09/30/24 mcg (2,000 unit) capsule levothyroxine 100 mcg tablet 100 mcg PO QAM 06/28/24 09/30/24 olanzapine 10 mg tablet 5 mg PO BID 06/28/24 09/30/24 Previous Rx's Medication Instructions Recorded lancets 33 gauge (OneTouch Delica #100 ea 11/27/20 Lancets) blood sugar diagnostic (OneTouch #300 ea 07/31/22 Verio test strips) blood-glucose meter (OneTouch #1 ea 07/31/22 Verio Meter) ondansetron 8 mg disintegrating 8 mg PO Q8H PRN Nausea #90 tabs 07/31/22 tablet Oxygen Home #1 ea 09/04/22 lactulose 10 gram/15 mL oral 15 ml PO DAILY PRN Constipation 08/13/23 solution #1,350 mL pantoprazole 40 mg tablet,delayed 40 mg PO BID 90 days #180 tabs 09/16/23 release sodium zirconium cyclosilicate 10 10 g PO DAILY #30 ea 02/23/24 gram oral powder packet cyanocobalamin (vitamin B-12) 500 500 mcg PO QAM #30 tabs 04/12/24 mcg tablet dextromethorphan-guaifenesin 5 10 ml PO Q6H PRN cough #120 mL 06/30/24 mg-100 mg/5 mL oral liquid (Robitussin Cough-Chest Congestion DM) diclofenac sodium 1 % topical gel 2 g EXT TID Please apply to 06/30/24 (Voltaren Arthritis Pain) affected joints #100 grams venlafaxine 75 mg capsule,extended 75 mg PO HS #90 caps 07/11/24 release 24 hr buspirone 5 mg tablet 5 mg PO BID #180 tabs 09/04/24 gabapentin 300 mg capsule 300 mg PO 3XWK #36 caps 09/15/24 ipratropium 0.5 mg-albuterol 3 mg 3 ml inhalation Q8H #90 mL 09/28/24 (2.5 mg base)/3 mL nebulization soln Results & Data (ED) Vital Signs Vital Signs - 24 hr 09/30/24 09:08 09/30/24 09:27 09/30/24 09:30 Temperature 36.7 C Temperature Source Oral Pulse Rate 69 69 65 Pulse Rate [Apical] Pulse Rate from SpO2 Sensor 68 Pulse Rhythm Respiratory Rate 20 22 16 Respiratory Effort / Characteristics Non-Labored Spontaneous Respiratory Depth Normal Respiratory Pattern Regular Blood Pressure 102/57 L 140/72 124/81 Blood Pressure Mean 72 94 95 Pulse Oximetry 93 100 100 Oxygen Delivery Method Nasal Cannula Oxymask Nasal Cannula Oxygen Flow Rate 3 6 3 Fraction of Inspired Oxygen Sepsis Recent Fever Within 48 Hours No Sepsis New/Unexplained Change in Mental Status N/A Sepsis Action Taken by Nursing No Action Required 09/30/24 09:45 09/30/24 09:55 09/30/24 09:56 Temperature Temperature Source Pulse Rate 72 73 68 Pulse Rate [Apical] Pulse Rate from SpO2 Sensor Pulse Rhythm Regular Respiratory Rate 14 16 Respiratory Effort / Characteristics Respiratory Depth Respiratory Pattern Blood Pressure 136/62 Blood Pressure Mean 86 Pulse Oximetry 100 98 Oxygen Delivery Method Nasal Cannula Nasal Cannula Oxygen Flow Rate 3 3 Fraction of Inspired Oxygen Sepsis Recent Fever Within 48 Hours Sepsis New/Unexplained Change in Mental Status Sepsis Action Taken by Nursing 09/30/24 10:46 09/30/24 10:51 09/30/24 10:51 Temperature Temperature Source Pulse Rate 69 70 Pulse Rate [Apical] Pulse Rate from SpO2 Sensor 70 Pulse Rhythm Respiratory Rate 18 14 Respiratory Effort / Characteristics Non-Labored Spontaneous Respiratory Depth Normal Respiratory Pattern Blood Pressure 146/66 H Blood Pressure Mean 110 Pulse Oximetry 99 99 Oxygen Delivery Method Nasal Cannula Oxygen Flow Rate 3 Fraction of Inspired Oxygen 30 Sepsis Recent Fever Within 48 Hours Sepsis New/Unexplained Change in Mental Status Sepsis Action Taken by Nursing 09/30/24 11:02 09/30/24 11:06 09/30/24 11:11 Temperature Temperature Source Pulse Rate 68 Pulse Rate [Apical] 69 Pulse Rate from SpO2 Sensor 67 Pulse Rhythm Respiratory Rate 18 16 Respiratory Effort / Characteristics Non-Labored Spontaneous Respiratory Depth Respiratory Pattern Blood Pressure 125/77 Blood Pressure Mean 95 Pulse Oximetry 100 99 Oxygen Delivery Method Nasal Cannula BiPAP Oxygen Flow Rate 3 Fraction of Inspired Oxygen 30 Sepsis Recent Fever Within 48 Hours Sepsis New/Unexplained Change in Mental Status Sepsis Action Taken by Nursing 09/30/24 11:33 Temperature Temperature Source Pulse Rate 65 Pulse Rate [Apical] Pulse Rate from SpO2 Sensor 65 Pulse Rhythm Respiratory Rate 14 Respiratory Effort / Characteristics Respiratory Depth Respiratory Pattern Blood Pressure 155/77 H Blood Pressure Mean 103 Pulse Oximetry 100 Oxygen Delivery Method BiPAP Oxygen Flow Rate Fraction of Inspired Oxygen Sepsis Recent Fever Within 48 Hours Sepsis New/Unexplained Change in Mental Status Sepsis Action Taken by [facility] Medications Current Medication List: was personally reviewed by me Laboratory Data Attestation: I reviewed the patient's lab results. 09/30/24 09:25 09/30/24 09:25 Lab Results 09/30/24 09/30/24 09/30/24 Range/Units 09:25 09:27 09:37 WBC 10.51 (4.8-10.8) K/ul RBC 3.22 L (4.20-5.40) M/uL Hgb 10.5 L (12.0-16.0) g/dl POC Hgb 11.9 L (12.0-16.0) g/dl Hct 34.9 L (37.0-47.0) % POC Hct 35 L (37-47) % MCV 108.4 H (80.0-100.0) fL MCH 32.6 (25.0-34.0) pg MCHC 30.1 L (32.0-36.0) g/dL RDW Std Deviation 65.1 H (36.4-46.3) fL RDW Coeff of Jared 16.3 H (11.5-14.5) % Plt Count 172 (130-400) K/uL MPV 9.8 (9.4-12.4) fL Immature Gran % (Auto) 0.7 % Neut % (Auto) 75.1 % Lymph % (Auto) 10.3 % Morehouse % (Auto) 11.9 % Eos % (Auto) 1.5 % Baso % (Auto) 0.5 % Neut # (Auto) 7.90 H (1.40-6.50) K/uL Lymph # (Auto) 1.08 L (1.20-3.40) K/uL Morehouse # (Auto) 1.25 H (0.11-0.59) K/uL Eos # (Auto) 0.16 (0.00-0.50) K/uL Baso # (Auto) 0.05 (0.00-0.20) K/uL Immature Gran # (Auto) 0.07 (0.01-0.20) K/uL PT 10.3 (9.0-12.0) Seconds INR 0.9 (0.9-1.1) APTT 25 (21-31) Seconds PTT Ratio 0.9 VBG pH (7.36-7.41) VBG pCO2 (38-50) mmHg VBG pO2 mmHg VBG HCO3 mmol/L VBG O2 Saturation % VBG Base Excess mEq/L POC Sodium 138 (135-144) mmol/L Sodium 135 L (136-145) mmol/L POC Potassium 5.0 (3.3-5.0) mmol/L Potassium 4.9 (3.5-5.1) mmol/L POC Chloride 94 L (101-112) mmol/L Chloride 93 L (98-107) mmol/L Carbon Dioxide 37 H (21-32) mmol/L POC Total CO2 32 H (24-31) mmol/L Anion Gap 5 (3-11) POC Anion Gap 18.0 (16-25) mmol/L POC BUN 34 H (7-18) mg/dl BUN 33 H (6-23) mg/dl Creatinine 5.13 H* (0.6-1.2) mg/dl POC Creatinine 5.6 H* (0.6-1.3) mg/dl Est Cr Clr Drug Dosing 10.4 ml/min eGFR 8.06 BUN/Creatinine Ratio 6.4 L (10-20) Glucose 253 H (70-99(Fasting)) mg/dl POC Glucose (other) 255 H (70-99) mg/dl Lactate 1.5 (0.4-2.0) mmol/L Calcium 8.6 (8.6-10.3) mg/dl POC Ioniz Calcium Ramana 1.08 L (1.12-1.32) mmol/l Magnesium 2.5 H (1.7-2.4) mg/dl Total Bilirubin 0.4 (0.2-1.0) mg/dl Direct Bilirubin 0.1 (0-0.2) mg/dl AST 25 (13-39) U/L ALT 17 (7-52) U/L Alkaline Phosphatase 142 H (34-104) U/L Ammonia (18-72) umol/L Troponin I High Sens 47.1 H (0-14) pg/ml Total Protein 8.2 (6.0-8.3) gm/dl Albumin 4.0 (3.4-5.0) gm/dl Procalcitonin 1.35 H (0-0.5) ng/ml SARS-CoV-2 (PCR) NEGATIVE (Negative) Influenza Type A (PCR) Negative (Neg) Influenza Type B (PCR) Negative (Neg) RSV (RT-PCR) Negative (Neg) 09/30/24 09/30/24 Range/Units 09:56 11:18 WBC (4.8-10.8) K/ul RBC (4.20-5.40) M/uL Hgb (12.0-16.0) g/dl POC Hgb (12.0-16.0) g/dl Hct (37.0-47.0) % POC Hct (37-47) % MCV (80.0-100.0) fL MCH (25.0-34.0) pg MCHC (32.0-36.0) g/dL RDW Std Deviation (36.4-46.3) fL RDW Coeff of Jared (11.5-14.5) % Plt Count (130-400) K/uL MPV (9.4-12.4) fL Immature Gran % (Auto) % Neut % (Auto) % Lymph % (Auto) % Morehouse % (Auto) % Eos % (Auto) % Baso % (Auto) % Neut # (Auto) (1.40-6.50) K/uL Lymph # (Auto) (1.20-3.40) K/uL Morehouse # (Auto) (0.11-0.59) K/uL Eos # (Auto) (0.00-0.50) K/uL Baso # (Auto) (0.00-0.20) K/uL Immature Gran # (Auto) (0.01-0.20) K/uL PT (9.0-12.0) Seconds INR (0.9-1.1) APTT (21-31) Seconds PTT Ratio VBG pH 7.28 L (7.36-7.41) VBG pCO2 75 H (38-50) mmHg VBG pO2 44 mmHg VBG HCO3 35 mmol/L VBG O2 Saturation 74.7 % VBG Base Excess 5.8 mEq/L POC Sodium (135-144) mmol/L Sodium (136-145) mmol/L POC Potassium (3.3-5.0) mmol/L Potassium (3.5-5.1) mmol/L POC Chloride (101-112) mmol/L Chloride (98-107) mmol/L Carbon Dioxide (21-32) mmol/L POC Total CO2 (24-31) mmol/L Anion Gap (3-11) POC Anion Gap (16-25) mmol/L POC BUN (7-18) mg/dl BUN (6-23) mg/dl Creatinine (0.6-1.2) mg/dl POC Creatinine (0.6-1.3) mg/dl Est Cr Clr Drug Dosing ml/min eGFR BUN/Creatinine Ratio (10-20) Glucose (70-99(Fasting)) mg/dl POC Glucose (other) (70-99) mg/dl Lactate (0.4-2.0) mmol/L Calcium (8.6-10.3) mg/dl POC Ioniz Calcium Ramana (1.12-1.32) mmol/l Magnesium (1.7-2.4) mg/dl Total Bilirubin (0.2-1.0) mg/dl Direct Bilirubin (0-0.2) mg/dl AST (13-39) U/L ALT (7-52) U/L Alkaline Phosphatase (34-104) U/L Ammonia 13.0 L (18-72) umol/L Troponin I High Sens 42.0 H (0-14) pg/ml Total Protein (6.0-8.3) gm/dl Albumin (3.4-5.0) gm/dl Procalcitonin (0-0.5) ng/ml SARS-CoV-2 (PCR) (Negative) Influenza Type A (PCR) (Neg) Influenza Type B (PCR) (Neg) RSV (RT-PCR) (Neg) Administered Medications Acetaminophen (Acetaminophen 325 Mg Tab) 650 mg PO Q4H PRN PRN Reason: pain/fever Stop: 10/30/24 11:40 Last Admin: 09/30/24 13:59 Dose: 650 mg Documented By: MK Discontinued Medications Albuterol (Albut/Ipratrop 3mg/0.5mg Neb 3 Ml Vial) 3 ml INH Q8H ENRIQUETA; Protocol Stop: 10/30/24 10:59 Last Admin: 09/30/24 11:11 Dose: 3 ml Documented By: JBL Ceftriaxone Sodium (Rocephin) 2,000 mg in 50 mls @ 100 mls/hr IV NOW STA Stop: 09/30/24 10:03 Last Infusion: 09/30/24 10:46 Dose: Infused Documented By: Admin: 09/30/24 10:10 Dose: 100 mls/hr Documented By: JUAN RAMON Vancomycin HCl 2,000 mg/ (Sodium Chloride) 540 mls @ 200 mls/hr IV NOW ONE Stop: 09/30/24 12:15 Last Infusion: 09/30/24 13:45 Dose: Infused Documented By: Admin: 09/30/24 10:44 Dose: 200 mls/hr Documented By: Sodium Chloride (Nss) 250 mls @ 999 mls/hr IV .Q16M ONE Stop: 09/30/24 09:59 Last Infusion: 09/30/24 10:36 Dose: Infused Documented By: Admin: 09/30/24 10:09 Dose: 999 mls/hr Documented By: JUAN RAMON Imaging Data Attestation: I personally reviewed and interpreted this imaging study as follows: My Impression: 1 view chest x-ray was obtained in the emergency department. My interpretation is no free air or definite infiltrate, final report below. CT of the brain was obtained in the emergency department. My interpretation is no intracranial hemorrhage or mass effect, final report below. Radiologist's Impression: Chest X-Ray 09/30/24 09:20 Clinical History: Sepsis Technique: A frontal view of the chest was obtained Comparison is made with the prior examination dated 04/10/2024 Findings: There are no confluent pulmonary infiltrates. The heart size is at the upper limit of normal. No pleural effusion or pneumothorax is seen. There is suspected mild pulmonary vascular congestion No fracture is noted. No foreign body is seen Impression: Mild pulmonary vascular congestion Electronically signed by Shahab Vallejo 09-30-2024 09:[address] 09/30/24 09:35 Clinical History: Altered mental status Technique: Axial computed tomography images were obtained of the brain without intravenous contrast. Comparison is made to the prior CT dated 03/14/2023 Findings: There is unchanged cerebral atrophy, within expected limits for the patient's age. Areas of decreased attenuation are seen within the periventricular white matter, likely representing chronic small vessel ischemic disease. There is no definite sign of acute or old infarction. No intracranial hemorrhage is evident. No definite mass lesion is seen on this noncontrast examination. There is no midline shift or other form of herniation. No hydrocephalus is seen. No fracture is identified. The orbits and the visualized paranasal sinuses appear unremarkable. The mastoid air cells appear clear. Impression: 1. Cerebral atrophy and chronic small vessel ischemic disease 2. Otherwise unremarkable noncontrast CT of the brain Electronically signed by Shahab Vallejo 09-30-2024 10:52 AM Discharge Plan Visit Data Chief Complaint: Urinary Symptoms Stated Complaint: POSSIBLE UTI, SENT FROM DIALYSIS ED Provider: Julito Andrews Discharge Problem: Acute alteration in mental status, Acute respiratory acidosis, Acute hypotension Patient Disposition: Admitted As Inpatient Condition: Good Discharge Instructions Interventions: ED Discharge Assessment Last Done: 09/30/24 14:12
[2024-09-30 09:41] LABS: Basophils # (auto) 0.05 K/uL (0.00-0.20); Basophils % (auto) 0.5 %; Eosinophils # (auto) 0.16 K/uL (0.00-0.50); Eosinophils % (auto) 1.5 %; Hematocrit (blood only) 34.9 % (37.0-47.0); Hemoglobin 10.5 g/dl (12.0-16.0); Immature Granulocytes # (auto) 0.07 K/uL (0.01-0.20); Immature Granulocytes % (auto) 0.7 %; Lymphocytes # (auto) 1.08 K/uL (1.20-3.40); Lymphocytes % (auto) 10.3 %; Mean Corpuscular Hemoglobin 32.6 pg (25.0-34.0); Mean Corpuscular Hgb Conc 30.1 g/dL (32.0-36.0); Mean Corpuscular Volume 108.4 fL (80.0-100.0); Mean Platelet Volume 9.8 fL (9.4-12.4); Monocytes # (auto) 1.25 K/uL (0.11-0.59); Monocytes % (auto) 11.9 %; Neutrophils % (auto) 75.1 %; Platelet Count 172 K/uL (130-400); RDW Coefficient of Variation 16.3 % (11.5-14.5); RDW Standard Deviation 65.1 fL (36.4-46.3); Red Blood Count 3.22 M/uL (4.20-5.40); White Blood Count 10.51 K/ul (4.8-10.8)
[2024-09-30 09:41] LABS: iSTAT Creatinine 5.6 mg/dl (0.6-1.3); iSTAT Hemoglobin 11.9 g/dl (12.0-16.0); iSTAT Ionized Calcium 1.08 mmol/l (1.12-1.32)
--- NOTE | 2024-09-30 10:00 | XRay Report ---
Clinical History: Sepsis Technique: A frontal view of the chest was obtained Comparison is made with the prior examination dated 04/10/2024 Findings: There are no confluent pulmonary infiltrates. The heart size is at the upper limit of normal. No pleural effusion or pneumothorax is seen. There is suspected mild pulmonary vascular congestion No fracture is noted. No foreign body is seen Impression: Mild pulmonary vascular congestion Electronically signed by Shahab Vallejo 09-30-2024 09:59 AM
[2024-09-30 10:08] LABS: Base Excess VBG 5.8 mEq/L; HCO3 VBG 35 mmol/L; Oxygen Saturation VBG 74.7 %; PCO2 VBG 75 mmHg (38-50); PO2 VBG 44 mmHg; pH VBG 7.28 (7.36-7.41)
[2024-09-30] MEDS: SODIUM CHLORIDE 0.9% 250 ML IV ONE (10:09)
[2024-09-30] MEDS: cefTRIAXone SODIUM 2,000 MG/50 ML BAG IV STA (10:10)
[2024-09-30 10:31] LABS: BUN Creatinine Ratio 6.4 (10-20); Bilirubin Direct 0.1 mg/dl (0-0.2); Bilirubin,Total 0.4 mg/dl (0.2-1.0); Calcium 8.6 mg/dl (8.6-10.3); Creatinine Clr Calc Pharmacy 10.4 ml/min; Magnesium 2.5 mg/dl (1.7-2.4); Potassium 4.9 mmol/L (3.5-5.1); Total Protein 8.2 gm/dl (6.0-8.3); Troponin I High Sensitivity 47.1 pg/ml (0-14)
[2024-09-30 10:36] LABS: Influenza A virus by PCR Negative (Neg); Influenza B virus by PCR Negative (Neg); RSV by PCR Negative (Neg); SARS CoV2 RNA(COVID-19) Ceph NEGATIVE (Negative)
[2024-09-30 10:36] LABS: INR 0.9 (0.9-1.1); Partial Thromboplastin Ratio 0.9; Partial Thromboplastin Time 25 Seconds (21-31); Prothrombin Time 10.3 Seconds (9.0-12.0)
[2024-09-30] MEDS: VANCOMYCIN HCL 2,000 MG in SODIUM CHLORIDE 0.9% 500 ML IV ONE (10:44)
--- NOTE | 2024-09-30 10:52 | CT Scan Report ---
Clinical History: Altered mental status Technique: Axial computed tomography images were obtained of the brain without intravenous contrast. Comparison is made to the prior CT dated 03/14/2023 Findings: There is unchanged cerebral atrophy, within expected limits for the patient's age. Areas of decreased attenuation are seen within the periventricular white matter, likely representing chronic small vessel ischemic disease. There is no definite sign of acute or old infarction. No intracranial hemorrhage is evident. No definite mass lesion is seen on this noncontrast examination. There is no midline shift or other form of herniation. No hydrocephalus is seen. No fracture is identified. The orbits and the visualized paranasal sinuses appear unremarkable. The mastoid air cells appear clear. Impression: 1. Cerebral atrophy and chronic small vessel ischemic disease 2. Otherwise unremarkable noncontrast CT of the brain Electronically signed by Shahab Vallejo 09-30-2024 10:52 AM
[2024-09-30] MEDS ORDERED: LORazepam 0.5 MG TAB PO PRN (10:59)
[2024-09-30] MEDS ORDERED: LACTULOSE SYRUP 10 GM/15 ML BTL 960 ML PO PRN (10:59)
[2024-09-30] MEDS ORDERED: PHARMACY GLYCEMIC MGMT CONSULT PRN (11:02)
[2024-09-30] MEDS: ALBUT/IPRATROP 3MG/0.5MG NEB 3 ML VIAL INH SCH (11:11)
--- NOTE | 2024-09-30 12:24 | History & Physical Report ---
Date of Service September 30, 2024 Assessment & Plan (1) Toxic metabolic encephalopathy: Plan: -likely 2nd to UTI -pt unable to give urine sample at this time -con't rocephin (2) ESRD on dialysis: Plan: -had HD today 09/30 -nephrology consulted (3) COPD, severe: Plan: -con't nebs prn (4) Diabetes mellitus: Plan: -glycemic control via pharmacy (5) Hypothyroidism: Plan: -con't levothyxroxine (6) Hypertension: Plan: -coreg, hydralizine (7) Depression with anxiety: Plan: -buspirone, venlafaxine History of Present Illness Chief Complaint: AMS Primary Care Provider: Julito Burt MD Pt is a 79 y/o female with pmh of ESRD on HD, DM, COPD, HTN, TASH, hypothyroidism, depression who presents from HD with AMS. Pt completed a full round of HD and after was noted to be lethargic and complained of burning with urination and not feeling well. Pt was sent to ER for evaluation. Pt denies any fever, SOB, or chest pain. She had a normal WBC on labs, CT head was negative for acute pathology. She was given rocpehin/vancomycin and treated for presumed UTI. PT was not able to give a urine sample.She is being admitted for further treatment of UTI and toxic metabolic encephalopathy. Allergies Allergy/AdvReac Type Severity Reaction Status Date / Time lisinopril AdvReac Intermediate cough Verified 09/30/24 11:19 Home Medications Medication Instructions Recorded Confirmed Type vit B complx, C-iron 8 mg-folic 1 tab PO QDL 02/27/20 09/30/24 History acid 800 mcg-D3 1,000 unit-zinc tablet (ProRenal) lancets 33 gauge (OneTouch Delica #100 ea 11/27/20 09/25/24 Rx Lancets) calcium acetate 667 mg tablet 1,334 mg PO TIDWMEAL 12/17/20 09/30/24 History blood sugar diagnostic (EstatelyTouch #300 ea 07/31/22 09/25/24 Rx Verio test strips) blood-glucose meter (OneTouch #1 ea 07/31/22 09/25/24 Rx Verio Meter) ondansetron 8 mg disintegrating 8 mg PO Q8H PRN Nausea #90 tabs 07/31/22 09/30/24 Rx tablet Oxygen Home #1 ea 09/04/22 09/25/24 Rx lactulose 10 gram/15 mL oral 15 ml PO DAILY PRN Constipation 08/13/23 09/30/24 Rx solution #1,350 mL pantoprazole 40 mg tablet,delayed 40 mg PO BID 90 days #180 tabs 09/16/23 09/30/24 Rx release hydralazine 25 mg tablet 25 mg PO TID 02/21/24 09/30/24 History sodium zirconium cyclosilicate 10 10 g PO DAILY #30 ea 02/23/24 09/30/24 Rx gram oral powder packet cyanocobalamin (vitamin B-12) 500 500 mcg PO QAM #30 tabs 04/12/24 09/30/24 Rx mcg tablet carvedilol 6.25 mg tablet 6.25 mg PO BID 06/28/24 09/30/24 History cholecalciferol (vitamin D3) 50 50 mcg PO QAM 06/28/24 09/30/24 History mcg (2,000 unit) capsule levothyroxine 100 mcg tablet 100 mcg PO QAM 06/28/24 09/30/24 History olanzapine 10 mg tablet 5 mg PO BID 06/28/24 09/30/24 History dextromethorphan-guaifenesin 5 10 ml PO Q6H PRN cough #120 mL 06/30/24 09/30/24 Rx mg-100 mg/5 mL oral liquid (Robitussin Cough-Chest Congestion DM) diclofenac sodium 1 % topical gel 2 g EXT TID Please apply to 06/30/24 09/30/24 Rx (Voltaren Arthritis Pain) affected joints #100 grams venlafaxine 75 mg capsule,extended 75 mg PO HS #90 caps 07/11/24 09/30/24 Rx release 24 hr buspirone 5 mg tablet 5 mg PO BID #180 tabs 09/04/24 09/30/24 Rx gabapentin 300 mg capsule 300 mg PO 3XWK #36 caps 09/15/24 09/30/24 Rx ipratropium 0.5 mg-albuterol 3 mg 3 ml inhalation Q8H #90 mL 09/28/24 09/30/24 Rx (2.5 mg base)/3 mL nebulization soln Past Med/Surg History Problem List (Updated 09/30/24 @ 12:20 by Migue Restrepo MD) Toxic metabolic encephalopathy Stage III pressure ulcer of buttock (Acute) Chronic respiratory failure with hypoxia RSV (acute bronchiolitis due to respiratory syncytial virus) ESRD on dialysis (Acute) Pulmonary vascular congestion (Acute) Paroxysmal atrial tachycardia Stage II pressure ulcer of buttock (Acute) (HFpEF) heart failure with preserved ejection fraction Palpitation B12 deficiency PNA (pneumonia) Stage I pressure ulcer of buttock (Acute) Acute heart failure with preserved ejection fraction Acute respiratory failure with hypoxia and hypercarbia Acute hyperkalemia (Acute) Elevated troponin (Acute) Metabolic acidosis (Acute) Leukocytosis (Acute) AMS (altered mental status) (Acute) Earache on left Sore throat COPD, 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 Counseling regarding advanced directives and goals of care Palliative care by specialist AMS (altered mental status) (Acute) Confusion Metabolic encephalopathy Arthralgia of right foot Chronic kidney disease-mineral and bone disorder Hypertension Diabetes mellitus Anemia Coronary artery disease Hypothyroidism Vitamin D deficiency (Acute) Polyarthritis (Acute) Paresthesias (Acute) Obstructive sleep apnea (Acute) Insomnia (Acute) Dyslipidemia (Acute) Diabetic retinopathy (Acute) Depression with anxiety (Acute) Cardiomyopathy Restrictive lung disease (Acute) End-stage renal disease on hemodialysis (Acute) CHF (congestive heart failure) (Acute) Polymyalgia rheumatica Abnormal chest CT Hypertension (Acute) Weakness (Acute) Diverticulitis (Acute) Hiatal hernia with gastroesophageal reflux disease and esophagitis Early satiety Nausea & vomiting Type 2 diabetes mellitus with diabetic neuropathy (Acute) Right leg pain Leg edema, right Contusion of face Right facial numbness History of fracture of orbit (~06/20/21) Memory change Neuropathy Abnormal gait RLS (restless legs syndrome) Low back pain Seizure-like activity Elevated ferritin level Tremor Depression Anxiety Medical History Acute and chronic respiratory failure with hypoxia Acute and chronic respiratory failure with hypercapnia Weakness generalized Cellulitis of right leg Morbid obesity with BMI of 40.0-44.9, adult Diabetic eyes Hallucinations Fatigue Abnormal EKG Acute electrocardiogram changes Transaminitis Elevated troponin Myoclonus Acute hyperkalemia Hyperkalemia, diminished renal excretion Laceration of left lower extremity Hernia, hiatal GERD without esophagitis Macular puckering, bilateral Panniculitis Tubular adenoma of colon Hypertension History of thrombophlebitis Arthritis Surgical History History of tonsillectomy S/P repair of paraesophageal hernia History of nasal septoplasty History of cataract surgery History of bladder surgery S/P arteriovenous (AV) fistula creation S/P rotator cuff repair S/P hysterectomy H/O: hysterectomy Family History Mother Leukemia Cerebral aneurysm Hypertension Anxiety Diabetes Cancer Heart disease Grandmother Hypertension Father Osteoarthritis COPD (chronic obstructive pulmonary disease) Diabetes Hearing loss Sister Diabetes Myocardial infarction COPD (chronic obstructive pulmonary disease) Hypertension Brother Myocardial infarction Diabetes Cancer Stomach cancer Other No family history of bleeding disorder Denies family history of Ovarian cancer Prostate cancer Breast cancer Colorectal cancer Stroke Asthma Social History Smoking Status: Never smoker Second Hand Exposure: No; Do You Dip or Chew Tobacco: No; Hx Alcohol Use: No Hx Substance Use: No Preferred Language: Faroese Communication Ability: Effective Visual Impairment: No Limitations Hearing Ability: Normal 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 HENT: Negative for neck pain/stiffness, headache, congestion, sore throat, swelling. EYES: Negative for discharge/pain or vision changes. RESP: Negative for cough/hemoptysis and shortness of breath. CV: Negative chest pain, difficulty breathing, palpitations. ABD: Negative pain, nausea, vomiting. : Negative increase frequency, dysuria, blood in urine or stool. MUSC: Negative for muscle aches, edema. SKIN: Negative rash, lesions/sores. NEURO: Negative headache, dizziness, weakness. Lethargy Physical Exam Physical Exam: GENERAL APPEARANCE NAD, activity normal for age, well developed/ well nourished, no cyanosis, pallor, or diaphoresis. EYES lids/conjunctiva normal. EARS/NOSE/THROAT Mucous membranes moist, nares normal, lips/teeth normal uvula midline without oral pharyngeal erythema, exudate or swelling TMs normal bilaterally. No lymphangitis/lymphedema. HEAD/NECK normocephalic atraumatic, no facial trauma, neck is supple. RESPIRATORY respiratory effort normal, speaks in full sentences, no tripod position, no accessory muscle use. Lungs clear to auscultation without rhonchi, wheezes, rales CARDIAC Regular rate and rhythm, no edema. ABDOMINAL Soft, ND/NT. No evidence of fluid wave. No pulsatile masses on exam, rebound tenderness, Jackson sign or pain over Mcburney's point. MUSCLES/EXTREMITIES No abnormal range of motion, no swelling. SKIN Warm, pink and dry. No rashes, dermatoses, petechiae or lesions. NEUROLOGICAL Speech is clear and appropriate. Normal level of consciousness. Gait and coordination are normal. 5/5 strength in all extremities. PSYCH Normal mood and affect. Judgement/competence is appropriate Results & Data Results & Data Vital Signs (Past 12 Hours) Vital Signs Temp Pulse Pulse Resp BP Pulse Ox O2 Del Method 09/30/24 11:33 65 14 155/77 H 100 BiPAP 09/30/24 11:11 69 16 99 BiPAP 09/30/24 11:06 68 18 100 Nasal Cannula 09/30/24 11:02 125/77 09/30/24 10:51 70 14 99 Nasal Cannula 09/30/24 10:51 69 18 99 09/30/24 10:46 146/66 H 09/30/24 09:56 68 09/30/24 09:55 73 16 98 Nasal Cannula 09/30/24 09:45 72 14 136/62 100 Nasal Cannula 09/30/24 09:30 65 16 124/81 100 Nasal Cannula 09/30/24 09:27 69 22 140/72 100 Oxymask 09/30/24 09:08 36.7 C 69 20 102/57 L 93 Nasal Cannula O2 Flow Rate FiO2 09/30/24 11:33 09/30/24 11:11 30 09/30/24 11:06 3 09/30/24 11:02 09/30/24 10:51 3 09/30/24 10:51 30 09/30/24 10:46 09/30/24 09:56 09/30/24 09:55 3 09/30/24 09:45 3 09/30/24 09:30 3 09/30/24 09:27 6 09/30/24 09:08 3 PG Care Time/CCT Total # of Minutes Spent Total Time Spent with Patient: Total time spent is greater than 50% in coordination of care (as documented) at patient's floor/unit and/or counseling patient: Coding Level of Care Code 94775 INT INP/OBS CARE 2MIN Diagnoses Toxic metabolic encephalopathy G92.8 ESRD on dialysis N18.6; Z99.2 COPD, severe J44.9 Type 2 diabetes mellitus with chronic kidney disease on chronic dialysis, with long-term current use of insulin E11.22; N18.6; Z79.4; Z99.2 Diabetes mellitus type: type 2 Diabetes mellitus group home insulin use: with director of casework department use Diabetes mellitus complication status: with kidney complications Diabetes mellitus complication detail: with chronic kidney disease Chronic kidney disease stage: on chronic dialysis Hypothyroidism, unspecified type E03.9 Hypothyroidism type: unspecified Hypertension I10 Depression with anxiety F41.8 (4) Diabetes mellitus Diabetes mellitus type: type 2 Diabetes mellitus director of casework department insulin use: with director of casework department use Diabetes mellitus complication status: with kidney complications Diabetes mellitus complication detail: with chronic kidney disease Chronic kidney disease stage: on chronic dialysis Qualified Code(s): E11.22 - Type 2 diabetes mellitus with diabetic chronic kidney disease; N18.6 - End stage renal disease; Z79.4 - skilled nursing (current) use of insulin; Z99.2 - Dependence on renal dialysis (5) Hypothyroidism Hypothyroidism type: unspecified Qualified Code(s): E03.9 - Hypothyroidism, unspecified
[2024-09-30] MEDS: ACETAMINOPHEN 325 MG TAB PO PRN (13:59)
[2024-09-30] MEDS ORDERED: ALBUT/IPRATROP 3MG/0.5MG NEB 3 ML VIAL INH PRN (14:07)
--- NOTE | 2024-09-30 14:13 | Nephrology Consultation ---
Date of Consultation September 30, 2024 Assessment & Plan (1) ESRD on dialysis: * Patient was dialyzed this morning at [facility] * Volume status and electrolyte balance are acceptable at this time. No acute indication for hemodialysis today * Outpatient HD: TTS 3.5 hr 2K 2Ca 1Mg HCO3 33 F-180NR Qb350/QdA1.5 EDW 94 kg * Diabetic, hemodialysis diet * Nephrocaps 1 daily * Protect right arm AV fistula (vascular access) * Monitor BMP, CBC (2) Toxic metabolic encephalopathy: * Blood cultures have been drawn and are pending. Patient however does not have a fever or leukocytosis * Patient has received IV vancomycin and ceftriaxone while in the EMD * Patient has urinary incontinence. Will order straight cath urine for urinalysis with microscopy and reflex culture * CXR film was reviewed - negative for infiltrate * Head CT report reviewed - negative for CVA * Clinically suspect encephalopathy on the basis of polypharmacy/sedative use. Patient has chronically been on gabapentin for treatment of RLS. Recently BuSpar, Ativan and oxycodone have been added to her medical regimen. It is possible that these are contributing to her mental status changes. I have taken the liberty of stopping Ativan and oxycodone. BuSpar dose has been reduced to once daily. Monitor mental status closely. Recommend minimizing sedative agents in this frail elderly patient. This was discussed in detail with the patient and her spouse this afternoon. History of Present Illness Reason for Consultation: ESKD-D Attending Physician: Migue Restrepo MD History of Present Illness Mrs. Patrick is a 79 year old white female who is seen at the request of the [facility] hospitalist service for ESKD-D. 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 She has been on HD at [facility] since 2016 (TTS 3.5 hr 2K 2Ca 1Mg HCO3 33 F-180NR Qb350/QdA1.5 EDW 94 kg). Her medical history is significant for chronic hyperkalemia requiring daily lokelma therapy, AODM, HTN, ASCVD, hypothyroidism, GERD, depression, RLS, TASH and large hiatal hernia with chronic abdominal/chest discomfort. Mrs. Patrick was brought to the EMD this afternoon after HD for evaluation of lethargy. She presented to the dialysis unit this morning very sleepy and required assistance transferring to her dialysis chair. Throughout the treatment she was poorly responsive to verbal stimuli. At the conclusion of dialysis Mrs. Patrick required 2 person assist to get into her wheelchair. Her was notified of her lethargy and was advised to take her to the emergency department. EMD evaluation revealed that the patient had spontaneous nonlabored respirations with RA SaO2 98% and was hemodynamically stable with SBP [id number]. WBC 10.5, NA 135, K4.9, CO2 32, CR 5.6, BSG 255, ammonia 13.0, troponin 42.0. Patient was unable to give a urine sample due to incontinence. Head CT revealed cerebral atrophy and chronic small vessel ischemic change only. CXR was negative for pulmonary infiltrate. There is mild pulmonary vascular congestion. Patient was admitted with a presumed diagnosis of cystitis. She was given empiric IV vancomycin and ceftriaxone in the emergency department. Mrs. Patrick suffers from anxiety. She complains of chronic pain involving her hands and feet. She carries a diagnosis of RLS. She has been on chronic gabapentin therapy due to her RLS. She has been receiving oxycodone and Ativan from another provider for management of her joint pain. She has also been given BuSpar twice daily for management of anxiety. Allergies Allergy/AdvReac Type Severity Reaction Status Date / Time lisinopril AdvReac Intermediate cough Verified 09/30/24 11:19 Home Medications Medication Instructions Recorded Confirmed Type vit B complx, C-iron 8 mg-folic 1 tab PO QDL 02/27/20 09/30/24 History acid 800 mcg-D3 1,000 unit-zinc tablet (ProRenal) lancets 33 gauge (ShypTouch [facility] #100 ea 11/27/20 09/25/24 Rx Lancets) calcium acetate 667 mg tablet 1,334 mg PO TIDWMEAL 12/17/20 09/30/24 History blood sugar diagnostic (Shypuch #300 ea 07/31/22 09/25/24 Rx Verio test strips) blood-glucose meter (Shypuch #1 ea 07/31/22 09/25/24 Rx Verio Meter) ondansetron 8 mg disintegrating 8 mg PO Q8H PRN Nausea #90 tabs 07/31/22 09/30/24 Rx tablet Oxygen Home #1 ea 09/04/22 09/25/24 Rx lactulose 10 gram/15 mL oral 15 ml PO DAILY PRN Constipation 08/13/23 09/30/24 Rx solution #1,350 mL pantoprazole 40 mg tablet,delayed 40 mg PO BID 90 days #180 tabs 09/16/23 09/30/24 Rx release hydralazine 25 mg tablet 25 mg PO TID 02/21/24 09/30/24 History sodium zirconium cyclosilicate 10 10 g PO DAILY #30 ea 02/23/24 09/30/24 Rx gram oral powder packet cyanocobalamin (vitamin B-12) 500 500 mcg PO QAM #30 tabs 04/12/24 09/30/24 Rx mcg tablet carvedilol 6.25 mg tablet 6.25 mg PO BID 06/28/24 09/30/24 History cholecalciferol (vitamin D3) 50 50 mcg PO QAM 06/28/24 09/30/24 History mcg (2,000 unit) capsule levothyroxine 100 mcg tablet 100 mcg PO QAM 06/28/24 09/30/24 History olanzapine 10 mg tablet 5 mg PO BID 06/28/24 09/30/24 History dextromethorphan-guaifenesin 5 10 ml PO Q6H PRN cough #120 mL 06/30/24 09/30/24 Rx mg-100 mg/5 mL oral liquid (Robitussin Cough-Chest Congestion DM) diclofenac sodium 1 % topical gel 2 g EXT TID Please apply to 06/30/24 09/30/24 Rx (Voltaren Arthritis Pain) affected joints #100 grams venlafaxine 75 mg capsule,extended 75 mg PO HS #90 caps 07/11/24 09/30/24 Rx release 24 hr buspirone 5 mg tablet 5 mg PO BID #180 tabs 09/04/24 09/30/24 Rx gabapentin 300 mg capsule 300 mg PO 3XWK #36 caps 09/15/24 09/30/24 Rx ipratropium 0.5 mg-albuterol 3 mg 3 ml inhalation Q8H #90 mL 09/28/24 09/30/24 Rx (2.5 mg base)/3 mL nebulization soln Patient History Medical History Acute and chronic respiratory failure with hypoxia Acute and chronic respiratory failure with hypercapnia Weakness generalized Cellulitis of right leg Morbid obesity with BMI of 40.0-44.9, adult Diabetic eyes Hallucinations Fatigue Abnormal EKG Acute electrocardiogram changes Transaminitis Elevated troponin Myoclonus Acute hyperkalemia Hyperkalemia, diminished renal excretion Laceration of left lower extremity Hernia, hiatal GERD without esophagitis Macular puckering, bilateral Panniculitis Tubular adenoma of colon Hypertension History of thrombophlebitis Arthritis Surgical History History of tonsillectomy S/P repair of paraesophageal hernia History of nasal septoplasty History of cataract surgery History of bladder surgery S/P arteriovenous (AV) fistula creation S/P rotator cuff repair S/P hysterectomy H/O: hysterectomy Family History Mother Leukemia Cerebral aneurysm Hypertension Anxiety Diabetes Cancer Heart disease Grandmother Hypertension Father Osteoarthritis COPD (chronic obstructive pulmonary disease) Diabetes Hearing loss Sister Diabetes Myocardial infarction COPD (chronic obstructive pulmonary disease) Hypertension Brother Myocardial infarction Diabetes Cancer Stomach cancer Other No family history of bleeding disorder Denies family history of Ovarian cancer Prostate cancer Breast cancer Colorectal cancer Stroke Asthma Social History Smoking Status: Never smoker Second Hand Exposure: No; Do You Dip or Chew Tobacco: No; Hx Alcohol Use: No Hx Substance Use: No Preferred Language: Occitan Communication Ability: Effective Visual Impairment: No Limitations Hearing Ability: Normal Pewter Caster Required: No Beliefs That Will Affect Care: Latter-Day Latter-Day Beliefs: Mu-Ism marital status: Current Living Situation: Spouse Current Living Situation Comment: Lives with current occupational status: retired How many Children do You have: 1 Feels Safe at Home: Yes Childhood Exposure to Second-Hand Smoke: No Dental Care, Regularly: No Physical Activity Frequency: 1-2 Times per Week Seatbelt Use: always Sunscreen Use: No Assistive Devices: CPAP, Denture - Upper, Glasses, Oxygen - Continuous, Special Shoe, Walker and Wheelchair Review of Systems Constitutional: no fever Eyes: no problem reported Ear, Nose, Mouth, Throat: no problem reported Respiratory: no cough and no dyspnea Cardiovascular: no chest pain Gastrointestinal: no abdominal pain, no nausea, no vomiting and no diarrhea/loose stools Genitourinary: + urinary incontinence; no dysuria Integumentary: no rash Neurologic: no problem reported Physical Exam Constitutional: + overweight; not in distress Eyes: PERRL, conjunctivae normal, anicteric sclerae ENMT: external ear and nose normal, oropharynx normal Neck: trachea midline, no thyromegaly Respiratory: Auscultation: lungs clear to auscultation bilaterally Cardiovascular: Rate/Rhythm: regular rate and regular rhythm Heart Sounds: no cardiac rub Extremities: + edema (trace pretibial edema) AVF + bruit Gastrointestinal (Abdomen): normal bowel sounds, soft, nontender, no hepatosplenomegaly Neurologic: awake; not confused Psychiatric: Affect: + anxious affect Results & Data Vital Signs (Past 12 Hours) Vital Signs Temp Pulse Pulse Resp BP Pulse Ox O2 Del Method 09/30/24 13:15 63 14 154/77 H 98 Oxymask 09/30/24 12:30 67 16 157/90 H 93 Nasal Cannula 09/30/24 11:33 65 14 155/77 H 100 BiPAP 09/30/24 11:11 69 16 99 BiPAP 09/30/24 11:06 68 18 100 Nasal Cannula 09/30/24 11:02 125/77 09/30/24 10:51 70 14 99 Nasal Cannula 09/30/24 10:51 69 18 99 09/30/24 10:46 146/66 H 09/30/24 09:56 68 09/30/24 09:55 73 16 98 Nasal Cannula 09/30/24 09:45 72 14 136/62 100 Nasal Cannula 09/30/24 09:30 65 16 124/81 100 Nasal Cannula 09/30/24 09:27 69 22 140/72 100 Oxymask 09/30/24 09:08 36.7 C 69 20 102/57 L 93 Nasal Cannula O2 Flow Rate FiO2 09/30/24 13:15 2 09/30/24 12:30 3 09/30/24 11:33 09/30/24 11:11 30 09/30/24 11:06 3 09/30/24 11:02 09/30/24 10:51 3 09/30/24 10:51 30 09/30/24 10:46 09/30/24 09:56 09/30/24 09:55 3 09/30/24 09:45 3 09/30/24 09:30 3 09/30/24 09:27 6 09/30/24 09:08 3 Laboratory Results Laboratory Results WBC 10.51 K/ul (4.8-10.8) 09/30/24 09:25 RBC 3.22 M/uL (4.20-5.40) L 09/30/24 09:25 Hgb 10.5 g/dl (12.0-16.0) L 09/30/24 09: POC Hgb 11.9 g/dl (12.0-16.0) L 09/30/24 09:27 Hct 34.9 % (37.0-47.0) L 09/30/24 09: POC Hct 35 % (37-47) L 09/30/24 09: MCV 108.4 fL (80.0-100.0) H 09/30/24 09:25 MCH 32.6 pg (25.0-34.0) 09/30/24 09: MCHC 30.1 g/dL (32.0-36.0) L 09/30/24 09: RDW Std Deviation 65.1 fL (36.4-46.3) H 09/30/24 09: RDW Coeff of Jared 16.3 % (11.5-14.5) H 09/30/24 09: Plt Count 172 K/uL (130-400) 09/30/24 09:25 MPV 9.8 fL (9.4-12.4) 09/30/24 09:25 Immature Gran % (Auto) 0.7 % 09/30/24 09:25 Neut % (Auto) 75.1 % 09/30/24 09:25 Lymph % (Auto) 10.3 % 09/30/24 09:25 Luce % (Auto) 11.9 % 09/30/24 09:25 Eos % (Auto) 1.5 % 09/30/24 09:25 Baso % (Auto) 0.5 % 09/30/24 09:25 Neut # (Auto) 7.90 K/uL (1.40-6.50) H 09/30/24 09:25 Lymph # (Auto) 1.08 K/uL (1.20-3.40) L 09/30/24 09:25 Luce # (Auto) 1.25 K/uL (0.11-0.59) H 09/30/24 09:25 Eos # (Auto) 0.16 K/uL (0.00-0.50) 09/30/24 09:25 Baso # (Auto) 0.05 K/uL (0.00-0.20) 09/30/24 09:25 Immature Gran # (Auto) 0.07 K/uL (0.01-0.20) 09/30/24 09:25 PT 10.3 Seconds (9.0-12.0) 09/30/24 09: INR 0.9 (0.9-1.1) 09/30/24 09: APTT 25 Seconds (21-31) 09/30/24 09: PTT Ratio 0.9 09/30/24 09:25 VBG pH 7.28 (7.36-7.41) L 09/30/24 09:56 VBG pCO2 75 mmHg (38-50) H 09/30/24 09:56 VBG pO2 44 mmHg 09/30/24 09:56 VBG HCO3 35 mmol/L 09/30/24 09:56 VBG O2 Saturation 74.7 % 09/30/24 09:56 VBG Base Excess 5.8 mEq/L 09/30/24 09:56 POC Sodium 138 mmol/L (135-144) 09/30/24 09:27 Sodium 135 mmol/L (136-145) L 09/30/24 09:25 POC Potassium 5.0 mmol/L (3.3-5.0) 09/30/24 09:27 Potassium 4.9 mmol/L (3.5-5.1) 09/30/24 09:25 POC Chloride 94 mmol/L (101-112) L 09/30/24 09:27 Chloride 93 mmol/L (98-107) L 09/30/24 09:25 Carbon Dioxide 37 mmol/L (21-32) H 09/30/24 09:25 POC Total CO2 32 mmol/L (24-31) H 09/30/24 09:27 Anion Gap 5 (3-11) 09/30/24 09:25 POC Anion Gap 18.0 mmol/L (16-25) 09/30/24 09:27 POC BUN 34 mg/dl (7-18) H 09/30/24 09:27 BUN 33 mg/dl (6-23) H 09/30/24 09:25 Creatinine 5.13 mg/dl (0.6-1.2) H* 09/30/24 09:25 POC Creatinine 5.6 mg/dl (0.6-1.3) H* 09/30/24 09:27 Est Cr Clr Drug Dosing 10.4 ml/min 09/30/24 09:25 eGFR 8.06 09/30/24 09:25 BUN/Creatinine Ratio 6.4 (10-20) L 09/30/24 09:25 Glucose 253 mg/dl (70-99(Fasting)) H 09/30/24 09:25 POC Glucose 173 mg/dl (70-99) H 09/30/24 13:47 POC Glucose (other) 255 mg/dl (70-99) H 09/30/24 09:27 Lactate 1.5 mmol/L (0.4-2.0) 09/30/24 09:37 Calcium 8.6 mg/dl (8.6-10.3) 09/30/24 09:25 POC Ioniz Calcium Ramana 1.08 mmol/l (1.12-1.32) L 09/30/24 09:27 Magnesium 2.5 mg/dl (1.7-2.4) H 09/30/24 09:25 Total Bilirubin 0.4 mg/dl (0.2-1.0) 09/30/24 09: Direct Bilirubin 0.1 mg/dl (0-0.2) 09/30/24 09:25 AST 25 U/L (13-39) 09/30/24 09:25 ALT 17 U/L (7-52) 09/30/24 09:25 Alkaline Phosphatase 142 U/L (34-104) H 09/30/24 09:25 Ammonia 13.0 umol/L (18-72) L 09/30/24 09:56 Troponin I High Sens 42.0 pg/ml (0-14) H 09/30/24 11:18 Total Protein 8.2 gm/dl (6.0-8.3) 09/30/24 09:25 Albumin 4.0 gm/dl (3.4-5.0) 09/30/24 09:25 Procalcitonin 1.35 ng/ml (0-0.5) H 09/30/24 09:25 SARS-CoV-2 (PCR) NEGATIVE (Negative) 09/30/24 09:37 Influenza Type A (PCR) Negative (Neg) 09/30/24 09:37 Influenza Type B (PCR) Negative (Neg) 09/30/24 09:37 RSV (RT-PCR) Negative (Neg) 09/30/24 09:37 Impressions Chest X-Ray 09/30/24 09:20 Clinical History: Sepsis Technique: A frontal view of the chest was obtained Comparison is made with the prior examination dated 04/10/2024 Findings: There are no confluent pulmonary infiltrates. The heart size is at the upper limit of normal. No pleural effusion or pneumothorax is seen. There is suspected mild pulmonary vascular congestion No fracture is noted. No foreign body is seen Impression: Mild pulmonary vascular congestion Electronically signed by Shahab Vallejo 09-30-2024 09:[address] 09/30/24 09:35 Clinical History: Altered mental status Technique: Axial computed tomography images were obtained of the brain without intravenous contrast. Comparison is made to the prior CT dated 03/14/2023 Findings: There is unchanged cerebral atrophy, within expected limits for the patient's age. Areas of decreased attenuation are seen within the periventricular white matter, likely representing chronic small vessel ischemic disease. There is no definite sign of acute or old infarction. No intracranial hemorrhage is evident. No definite mass lesion is seen on this noncontrast examination. There is no midline shift or other form of herniation. No hydrocephalus is seen. No fracture is identified. The orbits and the visualized paranasal sinuses appear unremarkable. The mastoid air cells appear clear. Impression: 1. Cerebral atrophy and chronic small vessel ischemic disease 2. Otherwise unremarkable noncontrast CT of the brain Electronically signed by Shahab Vallejo 09-30-2024 10:52 AM PG Care Time/CCT Total # of Minutes Spent Total Time Spent with Patient: Total time spent is greater than 50% in coordination of care (as documented) at patient's floor/unit and/or counseling patient: Coding Level of Care Code 23300 IN/OBS CONSULT LVL 5,80M Diagnoses ESRD on dialysis N18.6; Z99.2 Toxic metabolic encephalopathy G92.8
[2024-09-30] MEDS ORDERED: GLUCOSE 40% GEL 15 GM TUBE PO PRN (14:30)
[2024-09-30] MEDS ORDERED: CARBOHYDRATES FOR HYPOGLYCEMIA PO PRN (14:30)
[2024-09-30] MEDS ORDERED: GLUCOSE 10 TAB/TUBE PO PRN (14:30)
[2024-09-30] MEDS ORDERED: GLUCAGON FOR INJ 1 MG VIAL SQ PRN (14:30)
[2024-09-30] MEDS ORDERED: DEXTROSE 50% 50 ML SYRINGE IV PRN (14:30)
--- NOTE | 2024-09-30 14:31 | Pharmacy Report ---
Pharmacy PK ABX Note - Date of Service September 30, 2024 - Assessment and Plan Assessment 79 year old F receiving Vancomycin and Ceftriaxone for treatment of altered mental status, possible UTI. * Day #1 of antimicrobial therapy. * Afebrile. No leukocytosis. ESRD on HD Tues, Thurs, Sat. Lactate 1.5. Procal 1.35. * Flu/COVID/RSV negative. UA pending. Blood cultures pending. * Ordered MRSA nasal swab. Random level tomorrow. Plan Vancomycin * Loading dose: 2000 mg IV x 1 * Dose per level given ESRD * Random level ordered for: 10/01/24 in the event of emergent dialysis Ceftriaxone * 2000 mg IV every 24 hours Pharmacy will continue to follow and will adjust dose/frequency as necessary. Thank you. Pharmacy has transitioned to AUC monitoring for vancomycin. AUC/MALENA is the preferred PK/PD target and is associated with decreased risk of nephrotoxicity compared to traditional trough targets.
--- NOTE | 2024-09-30 14:36 | Pharmacy Report ---
Pharmacy Glycemic Short Note 2 - Date of Service September 30, 2024 - Glycemic Short BSG Results (Last 24 hours): 09/30/24 09/30/24 09/30/24 09:25 09:27 13:47 Glucose 253 H POC Glucose 173 H POC Glucose (other) 255 H OUTPATIENT ANTIDIABETIC REGIMEN: * n/a HbA1c: 7.4% on 09-25-24 ASSESSMENT: * Shirley is a 79 year old female presented from HD this morning with AMS. Pharmacy was consulted for glycemic management while she is admitted. * BSG on admit was 255mg/dL with improvement to 173mg/dL at lunch time without intervention. Will not start basal insulin at this time and will start a conservative bolus insulin regimen--weight based with a stress between 1 and 2. PLAN FOR INPATIENT GLYCEMIC CONTROL: * Basal insulin * none * Bolus insulin * NovoLog per scale ACHS or Q6hrs while NPO * Goal Range: Low 110 mg/dL - High 140 mg/dL * Correction Factor: 30 mg/dL/unit * Nutritional / Prandial insulin per carb ratio of 1 unit per 15 grams CHO consumed
[2024-09-30] MEDS: HEPARIN SOD 5,000 UNIT/0.5 ML VIAL SQ SCH (16:21)
[2024-09-30] MEDS: hydrALAZINE HCL 25 MG TAB PO SCH (16:22)
[2024-09-30] MEDS: carvediloL 6.25 MG TAB PO SCH (17:04)
[2024-09-30] MEDS: CALCIUM ACETATE 667 MG CAP/TAB PO SCH (17:04)
[2024-09-30] MEDS: GABAPENTIN 300 MG CAP PO SCH (17:04)
[2024-09-30] MEDS: INSULIN ASPART PER UNIT CHARGE SC SCH (17:20)
[2024-09-30] MEDS: VENLAFAXINE HCL XR 75 MG CAPXR PO SCH (20:15)
[2024-09-30] MEDS: OLANZapine 5 MG TABLET PO SCH (20:16)
[2024-09-30] MEDS: PANTOprazole 40 MG TAB PO SCH (20:16)
[2024-09-30] MEDS ORDERED: busPIRone 5 MG TAB PO SCH (21:00)
[2024-10-01] MEDS: LEVOTHYROXINE SODIUM 100 MCG TABLET PO SCH (05:27)
[2024-10-01 06:15] LABS: Hematocrit (blood only) 31.4 % (37.0-47.0); Hemoglobin 9.4 g/dl (12.0-16.0); Mean Corpuscular Hemoglobin 32.6 pg (25.0-34.0); Mean Corpuscular Hgb Conc 29.9 g/dL (32.0-36.0); Mean Platelet Volume 10.1 fL (9.4-12.4); Platelet Count 147 K/uL (130-400); RDW Coefficient of Variation 16.1 % (11.5-14.5); RDW Standard Deviation 65.4 fL (36.4-46.3); Red Blood Count 2.88 M/uL (4.20-5.40); White Blood Count 6.42 K/ul (4.8-10.8)
[2024-10-01 06:40] LABS: Albumin Globulin Ratio 0.9 (0.9-2); Albumin Level 3.4 gm/dl (3.4-5.0); BUN Creatinine Ratio 7.3 (10-20); Bilirubin,Total 0.4 mg/dl (0.2-1.0); Calcium 7.9 mg/dl (8.6-10.3); Creatinine Clr Calc Pharmacy 7.5 ml/min; Globulin 3.9 gm/dl (2.5-4.0); Potassium 5.2 mmol/L (3.5-5.1); Total Protein 7.3 gm/dl (6.0-8.3)
[2024-10-01 07:31] VITALS: PULSE 71; RESP 16; TEMP 97.9; O2SAT 96
[2024-10-01] MEDS: CHOLECALCIFEROL 25 MCG (1000 UNITS) TAB PO SCH (07:56)
[2024-10-01] MEDS: busPIRone 5 MG TAB PO SCH (07:57)
[2024-10-01] MEDS: CYANOCOBALAMIN (B-12) 500 MCG TABLET PO SCH (07:57)
[2024-10-01] MEDS: cefTRIAXone SODIUM 2,000 MG/50 ML BAG IV SCH (08:04)
--- NOTE | 2024-10-01 09:23 | Electrocardiogram Report ---
Test Reason : Blood Pressure : */* mmHG Vent. Rate : 68 BPM Atrial Rate : 68 BPM P-R Int : 202 ms QRS Dur : 98 ms QT Int : 420 ms P-R-T Axes : 0 -54 38 degrees QTcB Int : 446 ms Normal sinus rhythm Left axis deviation Left anterior fascicular block Poor R wave progression, consider anterior MO vs. lead placement vs. LVH Abnormal ECG When compared with ECG of 28-Jun-2024 10:39, No significant change was found Confirmed by Kristina Barker ([id number]) on 10/01/2024 9:23:17 AM Referred By: Payam Stephenson Confirmed By: Kristina Barker
--- NOTE | 2024-10-01 09:26 | Nephrology Progress Note ---
Date of Service October 01, 2024 Assessment & Plan (1) ESRD on dialysis: Plan: * Patient was last dialyzed 09/30/24 at [facility] * Volume status is acceptable this morning * Serum K is mildly elevated. Will provide Lokelma 10g po x1 this am and recheck K at 3 pm * Outpatient HD: TTS 3.5 hr 2K 2Ca 1Mg HCO3 33 F-180NR Qb350/QdA1.5 EDW 94 kg * Diabetic, hemodialysis diet * Nephrocaps 1 daily * Protect right arm AV fistula (vascular access) * Monitor BMP, CBC (2) Toxic metabolic encephalopathy: Plan: * Blood and urine cultures have been drawn and are pending. Patient however does not have a fever or leukocytosis * Patient has received IV vancomycin and ceftriaxone while in the EMD * CXR film was reviewed - negative for infiltrate * Head CT report reviewed - negative for CVA * Clinically suspect encephalopathy on the basis of polypharmacy/sedative use. Patient has chronically been on gabapentin for treatment of RLS. Recently BuSpar, Ativan and oxycodone have been added to her medical regimen. It is possible that these are contributing to her mental status changes. I have taken the liberty of stopping Ativan and oxycodone. BuSpar dose has been reduced to once daily. Monitor mental status closely. Recommend minimizing sedative agents in this frail elderly patient. This was discussed in detail with the patient and her spouse. * Mental status is markedly improved off ativan & oxycodone. Recommend PT for strengthening Admission and Anticipated Discharge Date Admission Date: September 30, 2024 Subjective Mrs. Patrick was evaluated in her hospital room this morning. Her Mahad was present at bedside. Mrs. Patrick was A&O x3. She expressed concern that her ativan and oxycodone had been stopped but noted that her joint discomfort was controlled w/ scheduled tylenol. She requests that gabapentin be given daily due to RLS Review of Systems Constitutional: no fever Eyes: no problem reported Ear, Nose, Mouth, Throat: no problem reported Respiratory: no cough and no dyspnea Cardiovascular: no chest pain Gastrointestinal: no abdominal pain, no nausea, no vomiting and no diarrhea/loose stools Genitourinary: + urinary incontinence; no dysuria Integumentary: no rash Neurologic: no problem reported Physical Exam Constitutional: + overweight; not in distress Eyes: PERRL, conjunctivae normal, anicteric sclerae ENMT: external ear and nose normal, oropharynx normal Neck: trachea midline, no thyromegaly Respiratory: Auscultation: lungs clear to auscultation bilaterally Cardiovascular: Rate/Rhythm: regular rate and regular rhythm Heart Sounds: no cardiac rub Extremities: + edema (trace pretibial edema) Gastrointestinal (Abdomen): normal bowel sounds, soft, nontender, no hepatosplenomegaly Neurologic: awake; not confused Psychiatric: Affect: + anxious affect Results & Data Vital Signs (Past 12 Hours) Vital Signs Temp Pulse Resp BP Pulse Ox O2 Del Method O2 Flow Rate 10/01/24 09:06 Nasal Cannula 2 10/01/24 07:27 36.6 C 71 16 145/84 H 96 Nasal Cannula 2 Laboratory Results Laboratory Results - last 24 hr 09/30/24 09/30/24 09/30/24 09:25 09:27 09:37 WBC 10.51 RBC 3.22 L Hgb 10.5 L POC Hgb 11.9 L Hct 34.9 L POC Hct 35 L MCV 108.4 H MCH 32.6 MCHC 30.1 L RDW Std Deviation 65.1 H RDW Coeff of Jared 16.3 H Plt Count 172 MPV 9.8 Immature Gran % (Auto) 0.7 Neut % (Auto) 75.1 Lymph % (Auto) 10.3 Garland % (Auto) 11.9 Eos % (Auto) 1.5 Baso % (Auto) 0.5 Neut # (Auto) 7.90 H Lymph # (Auto) 1.08 L Garland # (Auto) 1.25 H Eos # (Auto) 0.16 Baso # (Auto) 0.05 Immature Gran # (Auto) 0.07 PT 10.3 INR 0.9 APTT 25 PTT Ratio 0.9 VBG pH VBG pCO2 VBG pO2 VBG HCO3 VBG O2 Saturation VBG Base Excess POC Sodium 138 Sodium 135 L POC Potassium 5.0 Potassium 4.9 POC Chloride 94 L Chloride 93 L Carbon Dioxide 37 H POC Total CO2 32 H Anion Gap 5 POC Anion Gap 18.0 POC BUN 34 H BUN 33 H Creatinine 5.13 H* POC Creatinine 5.6 H* Est Cr Clr Drug Dosing 10.4 eGFR 8.06 BUN/Creatinine Ratio 6.4 L Glucose 253 H POC Glucose POC Glucose (other) 255 H Lactate 1.5 Calcium 8.6 POC Ioniz Calcium Ramana 1.08 L Magnesium 2.5 H Total Bilirubin 0.4 Direct Bilirubin 0.1 AST 25 ALT 17 Alkaline Phosphatase 142 H Ammonia Troponin I High Sens 47.1 H Total Protein 8.2 Albumin 4.0 Globulin Albumin/Globulin Ratio Procalcitonin 1.35 H Nasal Screen MRSA (PCR) Random Vancomycin SARS-CoV-2 (PCR) NEGATIVE Influenza Type A (PCR) Negative Influenza Type B (PCR) Negative RSV (RT-PCR) Negative 09/30/24 09/30/24 09/30/24 09:56 11:18 13:47 WBC RBC Hgb POC Hgb Hct POC Hct MCV MCH MCHC RDW Std Deviation RDW Coeff of Jared Plt Count MPV Immature Gran % (Auto) Neut % (Auto) Lymph % (Auto) Garland % (Auto) Eos % (Auto) Baso % (Auto) Neut # (Auto) Lymph # (Auto) Garland # (Auto) Eos # (Auto) Baso # (Auto) Immature Gran # (Auto) PT INR APTT PTT Ratio VBG pH 7.28 L VBG pCO2 75 H VBG pO2 44 VBG HCO3 35 VBG O2 Saturation 74.7 VBG Base Excess 5.8 POC Sodium Sodium POC Potassium Potassium POC Chloride Chloride Carbon Dioxide POC Total CO2 Anion Gap POC Anion Gap POC BUN BUN Creatinine POC Creatinine Est Cr Clr Drug Dosing eGFR BUN/Creatinine Ratio Glucose POC Glucose 173 H POC Glucose (other) Lactate Calcium POC Ioniz Calcium Ramana Magnesium Total Bilirubin Direct Bilirubin AST ALT Alkaline Phosphatase Ammonia 13.0 L Troponin I High Sens 42.0 H Total Protein Albumin Globulin Albumin/Globulin Ratio Procalcitonin Nasal Screen MRSA (PCR) Random Vancomycin SARS-CoV-2 (PCR) Influenza Type A (PCR) Influenza Type B (PCR) RSV (RT-PCR) 09/30/24 09/30/24 09/30/24 16:24 16:31 20:17 WBC RBC Hgb POC Hgb Hct POC Hct MCV MCH MCHC RDW Std Deviation RDW Coeff of Jared Plt Count MPV Immature Gran % (Auto) Neut % (Auto) Lymph % (Auto) Garland % (Auto) Eos % (Auto) Baso % (Auto) Neut # (Auto) Lymph # (Auto) Garland # (Auto) Eos # (Auto) Baso # (Auto) Immature Gran # (Auto) PT INR APTT PTT Ratio VBG pH VBG pCO2 VBG pO2 VBG HCO3 VBG O2 Saturation VBG Base Excess POC Sodium Sodium POC Potassium Potassium POC Chloride Chloride Carbon Dioxide POC Total CO2 Anion Gap POC Anion Gap POC BUN BUN Creatinine POC Creatinine Est Cr Clr Drug Dosing eGFR BUN/Creatinine Ratio Glucose POC Glucose 120 H 172 H POC Glucose (other) Lactate Calcium POC Ioniz Calcium Ramana Magnesium Total Bilirubin Direct Bilirubin AST ALT Alkaline Phosphatase Ammonia Troponin I High Sens Total Protein Albumin Globulin Albumin/Globulin Ratio Procalcitonin Nasal Screen MRSA (PCR) Negative Random Vancomycin SARS-CoV-2 (PCR) Influenza Type A (PCR) Influenza Type B (PCR) RSV (RT-PCR) 10/01/24 10/01/24 05:35 07:25 WBC 6.42 RBC 2.88 L Hgb 9.4 L POC Hgb Hct 31.4 L POC Hct MCV 109.0 H MCH 32.6 MCHC 29.9 L RDW Std Deviation 65.4 H RDW Coeff of Jared 16.1 H Plt Count 147 MPV 10.1 Immature Gran % (Auto) Neut % (Auto) Lymph % (Auto) Garland % (Auto) Eos % (Auto) Baso % (Auto) Neut # (Auto) Lymph # (Auto) Garland # (Auto) Eos # (Auto) Baso # (Auto) Immature Gran # (Auto) PT INR APTT PTT Ratio VBG pH VBG pCO2 VBG pO2 VBG HCO3 VBG O2 Saturation VBG Base Excess POC Sodium Sodium 135 L POC Potassium Potassium 5.2 H POC Chloride Chloride 96 L Carbon Dioxide 33 H POC Total CO2 Anion Gap 6 POC Anion Gap POC BUN BUN 49 H Creatinine 6.74 H* D POC Creatinine Est Cr Clr Drug Dosing 7.5 eGFR 5.81 BUN/Creatinine Ratio 7.3 L Glucose 115 H POC Glucose 122 H POC Glucose (other) Lactate Calcium 7.9 L POC Ioniz Calcium Ramana Magnesium Total Bilirubin 0.4 Direct Bilirubin AST 24 ALT 14 Alkaline Phosphatase 88 Ammonia Troponin I High Sens Total Protein 7.3 Albumin 3.4 Globulin 3.9 Albumin/Globulin Ratio 0.9 Procalcitonin Nasal Screen MRSA (PCR) Random Vancomycin 17.0 SARS-CoV-2 (PCR) Influenza Type A (PCR) Influenza Type B (PCR) RSV (RT-PCR) Diagnostic Findings 09/30/24 Blood & urine cx - pending PG Care Time/CCT Total # of Minutes Spent Total Time Spent with Patient: Total time spent is greater than 50% in coordination of care (as documented) at patient's floor/unit and/or counseling patient: Coding Level of Care Code 03731 SUB INP/OBS CARE 350MIN Diagnoses ESRD on dialysis N18.6; Z99.2 Toxic metabolic encephalopathy G92.8
--- NOTE | 2024-10-01 09:58 | Discharge Summary ---
Discharge Summary Date of Service October 01, 2024 Principal Dx & Hospital Course #1 = Principal Diagnosis (1) Toxic metabolic encephalopathy: -likely 2nd to UTI -pt unable to give urine sample at this time -con't rocephin (2) ESRD on dialysis: -had HD today 5/3 -nephrology consulted (3) COPD, severe: -con't nebs prn (4) Diabetes mellitus: -glycemic control via pharmacy (5) Hypothyroidism: -con't levothyxroxine (6) Hypertension: -coreg, hydralizine (7) Depression with anxiety: -buspirone, venlafaxine Admission HPI Per Admitting Provider Pt is a 79 y/o female with pmh of ESRD on HD, DM, COPD, HTN, TASH, hypothyroidism, depression who presents from HD with AMS. Pt completed a full round of HD and after was noted to be lethargic and complained of burning with urination and not feeling well. Pt was sent to ER for evaluation. Pt denies any fever, SOB, or chest pain. She had a normal WBC on labs, CT head was negative for acute pathology. She was given rocpehin/vancomycin and treated for presumed UTI. PT was not able to give a urine sample.She is being admitted for further treatment of UTI and toxic metabolic encephalopathy. Discharge Exam GENERAL APPEARANCE NAD, activity normal for age, well developed/ well nourished, no cyanosis, pallor, or diaphoresis. EYES lids/conjunctiva normal. EARS/NOSE/THROAT Mucous membranes moist, nares normal, lips/teeth normal uvula midline without oral pharyngeal erythema, exudate or swelling TMs normal bilaterally. No lymphangitis/lymphedema. HEAD/NECK normocephalic atraumatic, no facial trauma, neck is supple. RESPIRATORY respiratory effort normal, speaks in full sentences, no tripod position, no accessory muscle use. Lungs clear to auscultation without rhonchi, wheezes, rales CARDIAC Regular rate and rhythm, no edema. ABDOMINAL Soft, ND/NT. No evidence of fluid wave. No pulsatile masses on exam, rebound tenderness, Jackson sign or pain over Mcburney's point. MUSCLES/EXTREMITIES No abnormal range of motion, no swelling. SKIN Warm, pink and dry. No rashes, dermatoses, petechiae or lesions. NEUROLOGICAL Speech is clear and appropriate. Normal level of consciousness. Gait and coordination are normal. 5/5 strength in all extremities. PSYCH Normal mood and affect. Judgement/competence is appropriate Discharge Plan Discharge Items Patient Disposition: Home - Self-Care Reason For Visit: UTI, AMS Discharge Diagnosis: metabolic encephalopathy Condition on Discharge: Good Activity: Resume your previous activity Non-emergency contact: Primary Care Provider Call non-emergency contact if: you have any medication questions Follow-up/Referrals: Julito Burt MD [Primary Care Provider] - Diet: Regular Addtl Attending Provider Instructions: Follow up with PMD in 2 week Pending Studies at Discharge: No Stand-Alone Forms: My Open Home Pro, Smoking Cessation Medications and DC Order Prescriptions: New ciprofloxacin HCl 250 mg tablet 250 mg PO BID Qty: 10 0RF Continued (DME) lancets [OneTouch Delica Lancets] 33 gauge misc See Rx Instructions .ROUTE .MEDSUPPLY Qty: 100 3RF Rx Instructions: use to test twice daily (DME) OneTouch Verio test strips Strip See Rx Instructions .ROUTE .MEDSUPPLY Qty: 300 3RF Rx Instructions: test twice daily E11.9 (DME) blood-glucose meter [OneTouch Verio Meter] Misc See Rx Instructions .ROUTE .MEDSUPPLY Qty: 1 0RF Rx Instructions: As directed E11.9 ondansetron 8 mg tablet,disintegrating 8 mg PO Q8H PRN (Reason: Nausea) Qty: 90 5RF lactulose 10 gram/15 mL solution 15 ml PO DAILY PRN (Reason: Constipation) Qty: 1350 3RF pantoprazole 40 mg tablet,delayed release (DR/EC) 40 mg PO BID 90 Days Qty: 180 3RF venlafaxine 75 mg capsule,extended release 24hr 75 mg PO HS Qty: 90 3RF buspirone 5 mg tablet 5 mg PO BID Qty: 180 3RF gabapentin 300 mg capsule 300 mg PO 3XWK Qty: 36 1RF Rx Instructions: Wednesday, , wednesday after dialysis ipratropium-albuterol 0.5 mg-3 mg(2.5 mg base)/3 mL solution for nebulization 3 ml inhalation Q8H Qty: 90 2RF (DME) Oxygen Home Liters Per Minute See Rx Instructions .ROUTE .MEDSUPPLY Qty: 1 0RF Rx Instructions: 3 liters continuously ProRenal 8 mg iron-800 mcg-1,000 unit tablet 1 tab PO QDL calcium acetate 667 mg Tablet 1,334 mg PO TIDWMEAL olanzapine 10 mg tablet 5 mg PO BID Rx Instructions: 1/2 tab orally twice a day carvedilol 6.25 mg tablet 6.25 mg PO BID cholecalciferol (vitamin D3) 50 mcg (2,000 unit) capsule 50 mcg PO QAM levothyroxine 100 mcg tablet 100 mcg PO QAM diclofenac sodium [Voltaren Arthritis Pain] 1 % Gel 2 g EXT TID Qty: 100 0RF dextromethorphan-guaifenesin [Robitussin Cough-Chest Silvio DM] 5-100 mg/5 mL Liquid 10 ml PO Q6H PRN (Reason: cough) Qty: 120 0RF Rx Instructions: Knbz-mny-cubnxfy hydralazine 25 mg tablet 25 mg PO TID sodium zirconium cyclosilicate 10 gram powder in packet 10 g PO DAILY Qty: 30 5RF cyanocobalamin (vitamin B-12) 500 mcg Tablet 500 mcg PO QAM Qty: 30 0RF Discharge Orders: Discharge Order (Routine); Ordered 10/01/24 Ordered By: Migue Restrepo Admission Data Admit Date/Time: 09/30/24 11:41 Attending Provider: Migue Restrepo Admit Provider: Migue Restrepo Primary Care Provider: Julito Burt Other Providers: Arian Suarez; Payam Stephenson Hospital Stay Data Consultations 09/30/24 10:58 ED Decision to Admit Stat 09/30/24 14:06 Consult Nephrology Routine Diagnostic Imagining Performed 09/30/24 09:35 CT head/brain wo con Stat Pending Results Patient Have Any Pending Studies at Discharge: No Discharge Instructions Given to Patient (Per Discharging Provider) Follow up with PMD in 2 week Total Time Total Time Spent Total Time Spent (In Minutes): 50 Coding Level of Care Code 53250 INP/OBS DISCH >30 MIN Diagnoses Toxic metabolic encephalopathy G92.8 ESRD on dialysis N18.6; Z99.2 COPD, severe J44.9 Type 2 diabetes mellitus with chronic kidney disease on chronic dialysis, with long-term current use of insulin E11.22; N18.6; Z79.4; Z99.2 Diabetes mellitus type: type 2 Diabetes mellitus group home insulin use: with group home use Diabetes mellitus complication status: with kidney complications Diabetes mellitus complication detail: with chronic kidney disease Chronic kidney disease stage: on chronic dialysis Hypothyroidism, unspecified type E03.9 Hypothyroidism type: unspecified Hypertension I10 Depression with anxiety F41.8
--- NOTE | 2024-10-01 10:03 | Pharmacy Report ---
Pharmacy PK ABX Note - Date of Service October 01, 2024 - Assessment and Plan Assessment 10/01: * Day #2 of Vancomycin and Ceftriaxone. No growth in cultures yet. * No acute indication for HD. Next session to be wednesday (10/03/24). * Vanc level therapeutic this AM. Minimal urine output. Therefore, will order random level prior to next HD session. 09/30: 79 year old F receiving Vancomycin and Ceftriaxone for treatment of altered mental status, possible UTI. * Day #1 of antimicrobial therapy. * Afebrile. No leukocytosis. ESRD on HD , , Sat. Lactate 1.5. Procal 1.35. * Flu/COVID/RSV negative. UA pending. Blood cultures pending. * Ordered MRSA nasal swab. Random level tomorrow. Plan Vancomycin * Loading dose: 2000 mg IV x 1 * Dose per level given ESRD * Random level therapeutic at 17 mcg/mL this AM. * Random level ordered for: 10/03/24 Ceftriaxone * 2000 mg IV every 24 hours Pharmacy will continue to follow and will adjust dose/frequency as necessary. Thank you. Pharmacy has transitioned to AUC monitoring for vancomycin. AUC/MALENA is the preferred PK/PD target and is associated with decreased risk of nephrotoxicity compared to traditional trough targets.
[2024-10-01] MEDS: SODIUM ZIRCONIUM CYCLOSILICATE 10 GM PACKET PO SCH (10:50)
[2024-10-01] MEDS: NEPHROCAPS PO SCH (12:18)
[2024-10-01 13:48] VITALS: BP 166/81
[2024-10-03] MEDS ORDERED: GABAPENTIN 300 MG CAP PO SCH (17:00)
== END 2024-10-01 14:00 | disposition home or self-care (01) | DRG 689 ==
LOC: SUATTDRO → ED 09:04 → 3E 11:41

== ENCOUNTER 2024-10-09 18:20 | Inpatient (IN) ==
[2024-10-09 19:15] LABS: Basophils # (auto) 0.06 K/uL (0.00-0.20); Basophils % (auto) 0.5 %; Eosinophils # (auto) 0.14 K/uL (0.00-0.50); Eosinophils % (auto) 1.3 %; Hematocrit (blood only) 33.3 % (37.0-47.0); Hemoglobin 10.1 g/dl (12.0-16.0); Immature Granulocytes # (auto) 0.06 K/uL (0.01-0.20); Immature Granulocytes % (auto) 0.5 %; Lymphocytes # (auto) 1.08 K/uL (1.20-3.40); Lymphocytes % (auto) 9.8 %; Mean Corpuscular Hemoglobin 32.8 pg (25.0-34.0); Mean Corpuscular Hgb Conc 30.3 g/dL (32.0-36.0); Mean Corpuscular Volume 108.1 fL (80.0-100.0); Mean Platelet Volume 9.7 fL (9.4-12.4); Monocytes # (auto) 1.17 K/uL (0.11-0.59); Monocytes % (auto) 10.6 %; Neutrophils # (auto) 8.51 K/uL (1.40-6.50); Neutrophils % (auto) 77.3 %; Platelet Count 194 K/uL (130-400); RDW Coefficient of Variation 15.9 % (11.5-14.5); RDW Standard Deviation 62.7 fL (36.4-46.3); Red Blood Count 3.08 M/uL (4.20-5.40); White Blood Count 11.02 K/ul (4.8-10.8)
[2024-10-09 19:40] LABS: Calcium 9.1 mg/dl (8.6-10.3); Creatinine Clr Calc Pharmacy 5.6 ml/min; Magnesium 2.8 mg/dl (1.7-2.4); Potassium 4.7 mmol/L (3.5-5.1)
[2024-10-09 19:56] LABS: Partial Thromboplastin Time 27 Seconds (21-31); Prothrombin Time 10.9 Seconds (9.0-12.0)
[2024-10-09 20:02] LABS: Influenza A virus by PCR Negative (Neg); Influenza B virus by PCR Negative (Neg); RSV by PCR Negative (Neg); SARS CoV2 RNA(COVID-19) Ceph NEGATIVE (Negative)
[2024-10-09 20:11] LABS: Troponin I High Sensitivity 52.5 pg/ml (0-14)
[2024-10-09] MEDS: ACETAMINOPHEN 1,000 MG/100 ML VIAL IV STA (20:13)
--- NOTE | 2024-10-09 20:24 | XRay Report ---
EXAM: XR chest 1V portable CLINICAL HISTORY: ams TECHNIQUE: An X-ray image of the chest is obtained in AP projection. COMPARISON: 09/30/2024. FINDINGS: Pulmonary Parenchyma: Bilateral increased vascular markings and increased lung basal reticulations are likely of congestive etiology suspceted retrocardiac left lower lung zone alveolar inflitertes Right obliterated costophrenic angles likely mild pleural thickening/effusion left costophrnc angles is oblitertaed by the enlared pericardial pad of fat Heart and Mediastinum: Average cardiac size with congested vascular ruben Atherosclerotic changes of the aorta Bony Thorax: Diffuse osteopenia Soft Tissues: surgical clips in upper abdmen IMPRESSION: 1. Bilateral increased vascular markings and increased lung basal reticulations are likely of congestive etiology. 2. Suspected retrocardiac left lower lung zone alveolar infiltrates. 3. Right obliterated costophrenic angles likely mild pleural thickening/effusion. 4. No time interval changes. Electronically signed by Enrique Escalona 10-09-2024 8:24 PM
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
[2024-10-09] MEDS: busPIRone 5 MG TAB PO STA (22:02)
[2024-10-09] MEDS: PANTOprazole 40 MG TAB PO STA (22:02)
[2024-10-09] MEDS: carvediloL 6.25 MG TAB PO STA (22:03)
[2024-10-09] MEDS: hydrALAZINE HCL 25 MG TAB PO STA (22:03)
[2024-10-09] MEDS: VENLAFAXINE HCL 37.5 MG TAB PO STA (22:04)
[2024-10-09] MEDS: NITROGLYCERIN SL 0.4 MG/TAB TAB SL STA (22:07)
[2024-10-09] MEDS: ALBUT/IPRATROP 3MG/0.5MG NEB 3 ML VIAL NEB STA (22:13)
--- NOTE | 2024-10-09 22:20 | Emergency Department Note ---
History of Present Illness General Chief complaint: Shortness of Breath/Dyspnea Stated complaint: SOB Time Seen by Provider: 10/09/24 18:34 Source: patient and family History of Present Illness Provider complaint: Shortness of breath Onset (ago): day(s) 1 Maximum Pain Intensity: 9 79-year-old female in stage renal disease on hemodialysis Wednesday presents to the emergency department for shortness of breath and confusion. Family reports that the patient is increasingly confused and short of breath. They report she cannot stay awake. No recent falls or traumas. Patient reports that she only had a half session done of dialysis on Wednesday because she started cramping up too much. No fever. Home Medications Medication Instructions Recorded Confirmed Type calcium acetate 667 mg tablet 1,334 mg PO TIDWMEAL 12/17/20 10/09/24 History ondansetron 8 mg disintegrating 8 mg PO Q8H PRN Nausea #90 tabs 07/31/22 10/09/24 Rx tablet lactulose 10 gram/15 mL oral 15 ml PO DAILY PRN Constipation 08/13/23 10/09/24 Rx solution #1,350 mL hydralazine 25 mg tablet 25 mg PO TID 02/21/24 10/09/24 History sodium zirconium cyclosilicate 10 10 g PO DAILY #30 ea 02/23/24 10/09/24 Rx gram oral powder packet cyanocobalamin (vitamin B-12) 500 500 mcg PO QAM #30 tabs 04/12/24 10/09/24 Rx mcg tablet carvedilol 6.25 mg tablet 6.25 mg PO BID 06/28/24 10/09/24 History cholecalciferol (vitamin D3) 50 50 mcg PO QAM 06/28/24 10/09/24 History mcg (2,000 unit) capsule levothyroxine 100 mcg tablet 100 mcg PO QAM 06/28/24 10/09/24 History olanzapine 10 mg tablet 5 mg PO BID 06/28/24 10/09/24 History venlafaxine 75 mg capsule,extended 75 mg PO HS #90 caps 07/11/24 10/09/24 Rx release 24 hr ipratropium 0.5 mg-albuterol 3 mg 3 ml inhalation Q8H #90 mL 09/28/24 10/09/24 Rx (2.5 mg base)/3 mL nebulization soln gabapentin 300 mg capsule 300 mg PO 3XWK #36 caps 10/02/24 10/09/24 Rx pantoprazole 40 mg tablet,delayed 40 mg PO BID 90 days #180 tabs 10/02/24 10/09/24 Rx release vit B complx, C-iron 8 mg-folic 1 tab PO QDL 10/02/24 10/09/24 History acid 800 mcg-D3 1,000 unit-zinc tablet (ProRenal) Oxygen Home 10/09/24 10/09/24 History blood sugar diagnostic (OneTouch 10/09/24 10/09/24 History Verio test strips) blood-glucose meter 10/09/24 10/09/24 History lancets 33 gauge 10/09/24 10/09/24 History Allergies Allergy/AdvReac Type Severity Reaction Status Date / Time lisinopril AdvReac Intermediate cough Verified 10/09/24 11:04 Past Med/Surg History Problem List Acute hypotension (Acute) Acute respiratory acidosis (Acute) Acute alteration in mental status (Acute) Toxic metabolic encephalopathy Stage III pressure ulcer of buttock (Acute) Chronic respiratory failure with hypoxia RSV (acute bronchiolitis due to respiratory syncytial virus) ESRD on dialysis (Acute) Pulmonary vascular congestion (Acute) Paroxysmal atrial tachycardia Stage II pressure ulcer of buttock (Acute) (HFpEF) heart failure with preserved ejection fraction Palpitation B12 deficiency PNA (pneumonia) Stage I pressure ulcer of buttock (Acute) Acute heart failure with preserved ejection fraction Acute respiratory failure with hypoxia and hypercarbia Acute hyperkalemia (Acute) Elevated troponin (Acute) Metabolic acidosis (Acute) Leukocytosis (Acute) AMS (altered mental status) (Acute) Earache on left Sore throat COPD, 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 Counseling regarding advanced directives and goals of care Palliative care by specialist AMS (altered mental status) (Acute) Confusion Metabolic encephalopathy Arthralgia of right foot Chronic kidney disease-mineral and bone disorder Hypertension Diabetes mellitus Anemia Coronary artery disease Hypothyroidism Vitamin D deficiency (Acute) Polyarthritis (Acute) Paresthesias (Acute) Obstructive sleep apnea (Acute) Insomnia (Acute) Dyslipidemia (Acute) Diabetic retinopathy (Acute) Depression with anxiety (Acute) Cardiomyopathy Restrictive lung disease (Acute) End-stage renal disease on hemodialysis (Acute) CHF (congestive heart failure) (Acute) Polymyalgia rheumatica Abnormal chest CT Hypertension (Acute) Weakness (Acute) Diverticulitis (Acute) Hiatal hernia with gastroesophageal reflux disease and esophagitis Early satiety Nausea & vomiting Type 2 diabetes mellitus with diabetic neuropathy (Acute) Right leg pain Leg edema, right Contusion of face Right facial numbness History of fracture of orbit (~06/20/21) Memory change Neuropathy Abnormal gait RLS (restless legs syndrome) Low back pain Seizure-like activity Elevated ferritin level Tremor Depression Anxiety Medical History Acute and chronic respiratory failure with hypoxia Acute and chronic respiratory failure with hypercapnia Weakness generalized Cellulitis of right leg Morbid obesity with BMI of 40.0-44.9, adult Diabetic eyes Hallucinations Fatigue Abnormal EKG Acute electrocardiogram changes Transaminitis Elevated troponin Myoclonus Acute hyperkalemia Hyperkalemia, diminished renal excretion Laceration of left lower extremity Hernia, hiatal GERD without esophagitis Macular puckering, bilateral Panniculitis Tubular adenoma of colon Hypertension History of thrombophlebitis Arthritis Surgical History History of tonsillectomy S/P repair of paraesophageal hernia History of nasal septoplasty History of cataract surgery History of bladder surgery S/P arteriovenous (AV) fistula creation S/P rotator cuff repair S/P hysterectomy H/O: hysterectomy Family History Mother Leukemia Cerebral aneurysm Hypertension Anxiety Diabetes Cancer Heart disease Grandmother Hypertension Father Osteoarthritis COPD (chronic obstructive pulmonary disease) Diabetes Hearing loss Sister Diabetes Myocardial infarction COPD (chronic obstructive pulmonary disease) Hypertension Brother Myocardial infarction Diabetes Cancer Stomach cancer Other No family history of bleeding disorder Denies family history of Ovarian cancer Prostate cancer Breast cancer Colorectal cancer Stroke Asthma Social History Smoking Status: Never smoker Second Hand Exposure: No; Do You Dip or Chew Tobacco: No; Hx Alcohol Use: No Hx Substance Use: No Preferred Language: Thai Communication Ability: Effective Visual Impairment: No Limitations Hearing Ability: Normal 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 Beliefs That Will Affect Care: Lutheran Lutheran Beliefs: Lutheran marital status: Current Living Situation: Spouse Current Living Situation Comment: Lives with current occupational status: retired How many Children do You have: 1 Feels Safe at Home: Yes Childhood Exposure to Second-Hand Smoke: No Dental Care, Regularly: No Physical Activity Frequency: 1-2 Times per Week Seatbelt Use: always Sunscreen Use: No Assistive Devices: CPAP, Denture - Upper, Glasses, Oxygen - Continuous, Special Shoe, Walker and Wheelchair Physical Exam Vital Signs Vital Signs - 24 hr 10/09/24 18:20 10/09/24 18:29 10/09/24 18:45 Temperature 36.4 C L Temperature Source Temporal Artery Scan Pulse Rate 84 96 H 91 H Pulse Rate [Apical] Pulse Rate from SpO2 Sensor Pulse Rhythm Respiratory Rate 17 22 Respiratory Effort / Characteristics Non-Labored Spontaneous Non-Labored Spontaneous Respiratory Depth Normal Normal Respiratory Pattern Regular Regular Blood Pressure 171/137 H Blood Pressure [Left Arm] Blood Pressure Mean 148 Blood Pressure Mean [Left Arm] Blood Pressure Position Sitting Blood Pressure Position [Left Arm] Pulse Oximetry 94 80 L Oxygen Delivery Method Nasal Cannula Oxygen Flow Rate 3 Fraction of Inspired Oxygen 30 Sepsis Recent Fever Within 48 Hours No Sepsis New/Unexplained Change in Mental Status N/A Sepsis Action Taken by Nursing No Action Required 10/09/24 18:55 10/09/24 18:55 10/09/24 18:55 Temperature Temperature Source Pulse Rate 77 Pulse Rate [Apical] 77 Pulse Rate from SpO2 Sensor Pulse Rhythm Regular Respiratory Rate 32 H 28 H Respiratory Effort / Characteristics Respiratory Depth Respiratory Pattern Blood Pressure Blood Pressure [Left Arm] Blood Pressure Mean Blood Pressure Mean [Left Arm] Blood Pressure Position Blood Pressure Position [Left Arm] Pulse Oximetry 98 98 Oxygen Delivery Method Room Air Non-rebreather BiPAP Oxygen Flow Rate 15 Fraction of Inspired Oxygen Sepsis Recent Fever Within 48 Hours Sepsis New/Unexplained Change in Mental Status Sepsis Action Taken by Nursing 10/09/24 19:02 10/09/24 20:27 10/09/24 21:00 Temperature Temperature Source Pulse Rate 93 H 84 85 Pulse Rate [Apical] Pulse Rate from SpO2 Sensor 93 H 84 85 Pulse Rhythm Respiratory Rate 17 16 17 Respiratory Effort / Characteristics Respiratory Depth Respiratory Pattern Blood Pressure 196/123 H 149/68 H 156/102 H Blood Pressure [Left Arm] Blood Pressure Mean 163 95 109 Blood Pressure Mean [Left Arm] Blood Pressure Position Blood Pressure Position [Left Arm] Pulse Oximetry 95 93 91 Oxygen Delivery Method BiPAP BiPAP BiPAP Oxygen Flow Rate Fraction of Inspired Oxygen Sepsis Recent Fever Within 48 Hours Sepsis New/Unexplained Change in Mental Status Sepsis Action Taken by Nursing 10/09/24 22:00 Temperature Temperature Source Pulse Rate Pulse Rate [Apical] 81 Pulse Rate from SpO2 Sensor Pulse Rhythm Respiratory Rate 14 Respiratory Effort / Characteristics Respiratory Depth Respiratory Pattern Blood Pressure Blood Pressure [Left Arm] 168/73 H Blood Pressure Mean Blood Pressure Mean [Left Arm] 104 Blood Pressure Position Blood Pressure Position [Left Arm] Semi-fowlers Pulse Oximetry 90 Oxygen Delivery Method BiPAP Oxygen Flow Rate Fraction of Inspired Oxygen Sepsis Recent Fever Within 48 Hours Sepsis New/Unexplained Change in Mental Status Sepsis Action Taken by Nursing Physical Exam HENT: Exam performed. - Head: Normocephalic and atraumatic. EYES: Conjunctivae and EOM are normal. Right eye exhibits no discharge. Left eye exhibits no discharge. No scleral icterus. NECK: Normal range of motion. Neck supple. No JVD present. CV: Normal rate, regular rhythm, normal heart sounds and intact distal pulses. There is no peripheral edema. Palpable radial pulses bue. PULM/CHEST: Rales bilaterally. ABD: The abdomen is soft. There is no tenderness. NEURO: Motor and sensation grossly intact. Course Course 183: The patient was evaluated in room B1. A complete history and physical exam was performed Cardiac monitoring: An order was placed for continuous cardiac monitoring. The monitor shows a rate of 90 with sinus rhythm interpreted by me Patient hypoxic on room air. Patient started on BiPAP. 1840: Chest x-ray reviewed by me shows cardiomegaly with cephalization. 0: ABG shows a pH of 7.328 pCO2 of 62.1 bicarb 32.6. 2030: Vital signs stable on BiPAP. CT of the head viewed by me shows no ICH. Labs show a leukocytosis of 1.02 hemoglobin 10.1 potassium 4.7 BUN 62 creatinine 8.86 troponin 52.5. Patient will be admitted to the [facility] hospitalist Dr. Ortega. Administered Medications Discontinued Medications Albuterol (Albut/Ipratrop 3mg/0.5mg Neb 3 Ml Vial) 3 ml NEB NOW STA; Protocol Stop: 10/09/24 21:21 Last Admin: 10/09/24 22:13 Dose: 3 ml Documented By: TMP Buspirone HCl (Buspirone 5 Mg Tab) 5 mg PO NOW STA Stop: 10/09/24 21:21 Last Admin: 10/09/24 22:02 Dose: 5 mg Documented By: SARAVANAN Carvedilol (Carvedilol 6.25 Mg Tab) 6.25 mg PO NOW STA Stop: 10/09/24 21:21 Last Admin: 10/09/24 22:03 Dose: 6.25 mg Documented By: SARAVANAN Hydralazine HCl (Hydralazine Hcl 25 Mg Tab) 25 mg PO NOW STA Stop: 10/09/24 21:21 Last Admin: 10/09/24 22:03 Dose: 25 mg Documented By: SARAVANAN Acetaminophen (Ofirmev) 1,000 mg in 100 mls @ 400 mls/hr IV NOW STA Stop: 10/09/24 20:20 Last Infusion: 10/09/24 22:07 Dose: Infused Documented By: Admin: 10/09/24 20:13 Dose: 400 mls/hr Documented By: DAFNE Nitroglycerin (Nitroglycerin Sl 0.4 Mg/Tab Tab) 0.4 mg SL NOW STA Stop: 10/09/24 20:29 Last Admin: 10/09/24 22:07 Dose: Not Given Documented By: SARAVANAN Pantoprazole Sodium (Pantoprazole 40 Mg Tab) 40 mg PO NOW STA Stop: 10/09/24 21:21 Last Admin: 10/09/24 22:02 Dose: 40 mg Documented By: SARAVANAN Venlafaxine HCl (Venlafaxine Hcl 37.5 Mg Tab) 75 mg PO NOW STA Stop: 10/09/24 21:21 Last Admin: 10/09/24 22:04 Dose: 75 mg Documented By: SARAVANAN Critical Care Time Critical Care Time: Yes Total Critical Care Time: 79 I have personally spent greater than 79 minutes of critical care time in the direct management of this patient. This includes bedside care, interpretation of diagnostic studies, and testing, discussion with consultants, patient, and family members, and other required patient management activities. This 79 minutes is in excess of all separately billable procedures. Medical Decision Making Laboratory Data Attestation: I reviewed the patient's lab results. 10/09/24 18:46 10/09/24 18:46 Lab Results 10/09/24 Range/Units 18:46 WBC 11.02 H (4.8-10.8) K/ul RBC 3.08 L (4.20-5.40) M/uL Hgb 10.1 L (12.0-16.0) g/dl Hct 33.3 L (37.0-47.0) % MCV 108.1 H (80.0-100.0) fL MCH 32.8 (25.0-34.0) pg MCHC 30.3 L (32.0-36.0) g/dL RDW Std Deviation 62.7 H (36.4-46.3) fL RDW Coeff of Jared 15.9 H (11.5-14.5) % Plt Count 194 (130-400) K/uL MPV 9.7 (9.4-12.4) fL Immature Gran % (Auto) 0.5 % Neut % (Auto) 77.3 % Lymph % (Auto) 9.8 % [place] % (Auto) 10.6 % Eos % (Auto) 1.3 % Baso % (Auto) 0.5 % Neut # (Auto) 8.51 H (1.40-6.50) K/uL Lymph # (Auto) 1.08 L (1.20-3.40) K/uL [place] # (Auto) 1.17 H (0.11-0.59) K/uL Eos # (Auto) 0.14 (0.00-0.50) K/uL Baso # (Auto) 0.06 (0.00-0.20) K/uL Immature Gran # (Auto) 0.06 (0.01-0.20) K/uL PT 10.9 (9.0-12.0) Seconds INR 1.0 (0.9-1.1) APTT 27 (21-31) Seconds PTT Ratio 1.0 Sodium 136 (136-145) mmol/L Potassium 4.7 (3.5-5.1) mmol/L Chloride 94 L (98-107) mmol/L Carbon Dioxide 33 H (21-32) mmol/L Anion Gap 9 (3-11) BUN 62 H (6-23) mg/dl Creatinine 8.86 H* (0.6-1.2) mg/dl Est Cr Clr Drug Dosing 5.6 ml/min eGFR 4.18 BUN/Creatinine Ratio 7.0 L (10-20) Glucose 201 H (70-99(Fasting)) mg/dl Calcium 9.1 (8.6-10.3) mg/dl Magnesium 2.8 H (1.7-2.4) mg/dl Troponin I High Sens 52.5 H* (0-14) pg/ml SARS-CoV-2 (PCR) NEGATIVE (Negative) Influenza Type A (PCR) Negative (Neg) Influenza Type B (PCR) Negative (Neg) RSV (RT-PCR) Negative (Neg) Imaging Data Attestation: I personally reviewed and interpreted this imaging study as follows: My Impression: Chest x-ray reviewed by me shows cardiomegaly with cephalization. CT of the head viewed by me shows no ICH. Radiologist's Impression: Chest X-Ray 10/09/24 18:39 EXAM: XR chest 1V portable CLINICAL HISTORY: ams TECHNIQUE: An X-ray image of the chest is obtained in AP projection. COMPARISON: 09/30/2024. FINDINGS: Pulmonary Parenchyma: Bilateral increased vascular markings and increased lung basal reticulations are likely of congestive etiology suspceted retrocardiac left lower lung zone alveolar inflitertes Right obliterated costophrenic angles likely mild pleural thickening/effusion left costophrnc angles is oblitertaed by the enlared pericardial pad of fat Heart and Mediastinum: Average cardiac size with congested vascular ruben Atherosclerotic changes of the aorta Bony Thorax: Diffuse osteopenia Soft Tissues: surgical clips in upper abdmen IMPRESSION: 1. Bilateral increased vascular markings and increased lung basal reticulations are likely of congestive etiology. 2. Suspected retrocardiac left lower lung zone alveolar infiltrates. 3. Right obliterated costophrenic angles likely mild pleural thickening/effusion. 4. No time interval changes. Electronically signed by Enrique Escalona 10-09-2024 8:[address] 10/09/24 18:39 EXAM: CT head/brain wo con CLINICAL HISTORY: ams TECHNIQUE: Axial noncontrast CT scan of the brain was performed from the skull base to the high parietal region .One of the following dose reduction techniques were utilized for this exam: Automated exposure control, adjustment of the mA and/or kV according to patient size, use of iterative reconstruction. DLP: 1100.35 mGy-cm COMPARISON: 09/30/2024 FINDINGS: There are tiny ill-defined iso-to hypodense areas noted in the subcortical and periventricular white matter bilaterally, suggestive of microvascular ischemic changes. The ventricular system, cortical sulci and basal cisterns are prominent consistent with senile changes. The visualized brain parenchyma shows normal appearance. Carter-white matter differentiation is maintained. No midline shifts or deformity. No intracerebral or extra axial hematoma. Normal size and configuration of the cerebral ventricles. Normal CT appearance of the posterior fossa structures namely the cerebellar hemispheres, brainstem and cerebellar peduncles. The cerebello-pontine angles are clear. The osseous structures in the skull base are unremarkable. No definite calvarium fractures. The scanned paranasal sinuses are clear. Bilateral mastoid air cells appear unremarkable. Deviated anterior aspect of nasal septum convex to the left side. IMPRESSION: 1. No acute abnormality detected in plain CT head 2. Chronic microvascular ischemic changes and senile cortical atrophy 3. No significant interval changes since previous study. Electronically signed by Enrique Escalona 10-09-2024 9:19 PM ECG Data Attestation: I personally reviewed and interpreted this ECG as follows: Rate (beats per minute): 90 Rhythm: + normal sinus ECG Intervals/blocks: + First degree AV block, + Normal QRS and + Normal QT-c ECG ST segments: + Normal ST segments Additional Comments: Baseline artifact and wander MDM Narrative 183: The patient was evaluated in room B1. A complete history and physical exam was performed Cardiac monitoring: An order was placed for continuous cardiac monitoring. The monitor shows a rate of 90 with sinus rhythm interpreted by me Patient hypoxic on room air. Patient started on BiPAP. 1840: Chest x-ray reviewed by me shows cardiomegaly with cephalization. 1900: ABG shows a pH of 7.328 pCO2 of 62.1 bicarb 32.6. 2030: Vital signs stable on BiPAP. CT of the head viewed by me shows no ICH. Labs show a leukocytosis of 1.02 hemoglobin 10.1 potassium 4.7 BUN 62 creatinine 8.86 troponin 52.5. Patient will be admitted to the [facility] Hospitalist Dr. Ortega. Impression & Plan Hypoxia, End-stage renal disease on hemodialysis, Fluid overload Discharge Plan Visit Data Chief Complaint: Shortness of Breath/Dyspnea Stated Complaint: SOB ED Provider: Jacky Kolb Discharge Problem: Hypoxia, End-stage renal disease on hemodialysis, Fluid overload Patient Disposition: Admitted As Inpatient Condition: Fair Forms Stand Alone Forms: My [facility] Prescriptions Prescriptions: No Action ondansetron 8 mg tablet,disintegrating 8 mg PO Q8H PRN (Reason: Nausea) Qty: 90 5RF lactulose 10 gram/15 mL solution 15 ml PO DAILY PRN (Reason: Constipation) Qty: 1350 3RF venlafaxine 75 mg capsule,extended release 24hr 75 mg PO HS Qty: 90 3RF ipratropium-albuterol 0.5 mg-3 mg(2.5 mg base)/3 mL solution for nebulization 3 ml inhalation Q8H Qty: 90 2RF Patient Comments: states that doesn't take consistantly ProRenal 8 mg iron-800 mcg-1,000 unit tablet 1 tab PO QDL Rx Instructions: Daily in am per patient. pantoprazole 40 mg tablet,delayed release (DR/EC) 40 mg PO BID 90 Days Qty: 180 3RF gabapentin 300 mg capsule 300 mg PO 3XWK Qty: 36 1RF Rx Instructions: Wednesday, , wednesday after dialysis [facility]: ? Gabapentin 300 mg po QD-patient verbalized map maker Dr. Stephenson at discharge told patient to take gabapentin 300 mg daily. calcium acetate 667 mg Tablet 1,334 mg PO TIDWMEAL olanzapine 10 mg tablet 5 mg PO BID Rx Instructions: 1/2 tab orally twice a day carvedilol 6.25 mg tablet 6.25 mg PO BID cholecalciferol (vitamin D3) 50 mcg (2,000 unit) capsule 50 mcg PO QAM levothyroxine 100 mcg tablet 100 mcg PO QAM hydralazine 25 mg tablet 25 mg PO TID sodium zirconium cyclosilicate 10 gram powder in packet 10 g PO DAILY Qty: 30 5RF cyanocobalamin (vitamin B-12) 500 mcg Tablet 500 mcg PO QAM Qty: 30 0RF (DME) blood-glucose meter Misc See Rx Instructions .ROUTE .MEDSUPPLY Rx Instructions: As directed E11.9 (DME) OneTouch Verio test strips Strip See Rx Instructions .ROUTE .MEDSUPPLY Rx Instructions: test twice daily E11.9 (DME) lancets 33 gauge misc See Rx Instructions .ROUTE .MEDSUPPLY Rx Instructions: use to test twice daily (DME) Oxygen Home Liters Per Minute See Rx Instructions .ROUTE .MEDSUPPLY Rx Instructions: 3 liters continuously Referrals Referrals: ProJulito MD [Primary Care Provider] -
[2024-10-09] MEDS ORDERED: ONDANSETRON INJ 2 MG/ML 2 ML VIAL IV PRN (23:20)
[2024-10-09] MEDS: ALBUT/IPRATROP 3MG/0.5MG NEB 3 ML VIAL INH SCH (23:37)
[2024-10-10] MEDS: HEPARIN SOD 5,000 UNIT/0.5 ML VIAL SQ SCH (00:38)
[2024-10-10 06:04] LABS: Hematocrit (blood only) 28.8 % (37.0-47.0); Hemoglobin 8.8 g/dl (12.0-16.0); Mean Corpuscular Hemoglobin 33.1 pg (25.0-34.0); Mean Corpuscular Hgb Conc 30.6 g/dL (32.0-36.0); Mean Corpuscular Volume 108.3 fL (80.0-100.0); Mean Platelet Volume 9.7 fL (9.4-12.4); Platelet Count 168 K/uL (130-400); RDW Coefficient of Variation 15.6 % (11.5-14.5); RDW Standard Deviation 61.6 fL (36.4-46.3); Red Blood Count 2.66 M/uL (4.20-5.40); White Blood Count 9.66 K/ul (4.8-10.8)
[2024-10-10] MEDS: ACETAMINOPHEN 325 MG TAB PO PRN (06:11)
[2024-10-10] MEDS: LEVOTHYROXINE SODIUM 100 MCG TABLET PO SCH (06:13)
[2024-10-10 06:28] LABS: BUN Creatinine Ratio 7.6 (10-20); Calcium 8.8 mg/dl (8.6-10.3); Creatinine Clr Calc Pharmacy 5.3 ml/min
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
[2024-10-10] MEDS: CALCIUM ACETATE 667 MG CAP/TAB PO SCH (07:48)
[2024-10-10] MEDS: LACTULOSE SYRUP 20 GM/30 ML UDC PO PRN (07:48)
[2024-10-10] MEDS: busPIRone 5 MG TAB PO SCH (07:48)
[2024-10-10] MEDS: hydrALAZINE HCL 25 MG TAB PO SCH (07:48)
[2024-10-10] MEDS: carvediloL 6.25 MG TAB PO SCH (07:48)
[2024-10-10] MEDS: PANTOprazole 40 MG TAB PO SCH (07:49)
[2024-10-10] MEDS: OLANZapine 5 MG TABLET PO SCH (07:49)
[2024-10-10] MEDS: SODIUM ZIRCONIUM CYCLOSILICATE 10 GM PACKET PO SCH (07:49)
[2024-10-10] MEDS: NEPHROCAPS PO SCH (09:15)
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
--- NOTE | 2024-10-10 10:37 | Electrocardiogram Report ---
Test Reason : Blood Pressure : */* mmHG Vent. Rate : 90 BPM Atrial Rate : 90 BPM P-R Int : 236 ms QRS Dur : 96 ms QT Int : 362 ms P-R-T Axes : 59 -59 67 degrees QTcB Int : 442 ms Sinus rhythm with 1st degree A-V block with occasional Premature ventricular complexes Left axis deviation Poor R wave progression, consider anterior IA vs. lead placement vs. LVH Abnormal ECG When compared with ECG of 30-Sep-2024 09:18, Premature ventricular complexes are now Present ME interval has increased Confirmed by Davon William ([id number]) on 10/10/2024 10:37:07 AM Referred By: REFERRED SELF Confirmed By: Davon William
[2024-10-10] MEDS: EPOETIN ALFA 10,000 UNITS/ML VIAL IV STA (13:06)
[2024-10-10] MEDS: GABAPENTIN 300 MG CAP PO SCH (15:47)
[2024-10-10] MEDS: VENLAFAXINE HCL XR 75 MG CAPXR PO SCH (21:12)
[2024-10-11 05:56] LABS: Hematocrit (blood only) 28.7 % (37.0-47.0); Hemoglobin 8.6 g/dl (12.0-16.0); Mean Corpuscular Hemoglobin 32.8 pg (25.0-34.0); Mean Corpuscular Volume 109.5 fL (80.0-100.0); Mean Platelet Volume 9.8 fL (9.4-12.4); Platelet Count 165 K/uL (130-400); RDW Coefficient of Variation 15.9 % (11.5-14.5); RDW Standard Deviation 63.7 fL (36.4-46.3); Red Blood Count 2.62 M/uL (4.20-5.40); White Blood Count 8.37 K/ul (4.8-10.8)
[2024-10-11 06:21] LABS: BUN Creatinine Ratio 6.7 (10-20); Calcium 8.4 mg/dl (8.6-10.3); Creatinine Clr Calc Pharmacy 8.8 ml/min; Potassium 4.1 mmol/L (3.5-5.1)
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
--- NOTE | 2024-10-11 09:48 | Nephrology Progress Note ---
Date of Service October 11, 2024 Assessment & Plan (1) ESRD on dialysis: (2) Chronic respiratory failure with hypoxia: (3) Acute alteration in mental status: (4) Anemia: (5) Hypertension: Plan 79-year-old female with ESKD, on hemodialysis Wednesday, , Wednesday, admitted with hypoxic respiratory failure with volume overload and generalized weakness. Had dialysis yesterday, had 2 L UF but currently she is 4 kg above her dry weight, clinically volume overloaded with elevated blood pressure. Electrolyte this morning acceptable. --Plan for extra HD today, aim for 3 L UF. --Dose medications for eGFR less than 10, Low K diet --Renal vitamins daily --Continue on Lokelma daily --continue PhosLo TIDM --Epogen [id number] untis x 1 dose with HD given 10/10/24 --rt arm precaution ( AVF) Admission and Anticipated Discharge Date Admission Date: October 09, 2024 Jorge Watson was seen and evaluated this morning with her at bedside. She r eports overall feeling better but does not feel she is ready to be discharged. Reports having cough but no shortness of breath, fever or chills. Had dialysis yesterday, had 2 L UF but she is still 4 kg above her dry weight. Electrolyte acceptable. Blood pressure elevated. Review of Systems Review of Systems: All systems reviewed & are unremarkable except as noted in Subjective Physical Exam Constitutional: WD/WN, vitals as above + ill appearing Eyes: + anicteric sclerae Respiratory: no respiratory distress Auscultation: + diminished lung sounds Cardiovascular: RRR, no murmur, no edema Extremities: + AV fistula (Rt RC AVF with thrill and bruit, aneurysm stable.) Skin: no rashes, warm and dry Neurologic: no focal motor deficits Psychiatric: Orientation: alert and oriented x 3 Affect: euthymic affect Results & Data Vital Signs (Past 12 Hours) Vital Signs Temp Pulse Pulse Pulse Resp BP Pulse Ox 10/11/24 08:31 76 10/11/24 08:31 10/11/24 08:18 36.8 C 75 16 156/79 H 97 10/11/24 07:02 86 18 98 10/11/24 03:33 70 16 99 10/11/24 03:13 36.8 C 67 20 142/59 H 94 10/11/24 00:23 62 19 98 10/11/24 00:23 62 19 98 10/10/24 23:18 36.8 C 65 14 163/71 H 99 10/10/24 21:49 72 O2 Del Method O2 Flow Rate FiO2 10/11/24 08:31 10/11/24 08:31 Nasal Cannula 3 10/11/24 08:18 Nasal Cannula 2 10/11/24 07:02 Nasal Cannula 3 10/11/24 03:33 30 10/11/24 03:13 BiPAP 10/11/24 00:23 BiPAP 40 10/11/24 00:23 30 10/10/24 23:18 Nasal Cannula 3 10/10/24 21:49 PG Care Time/CCT Total # of Minutes Spent Total Time Spent with Patient: Total time spent is greater than 50% in coordination of care (as documented) at patient's floor/unit and/or counseling patient: Coding Level of Care Code 06687 SUB INP/OBS CARE 2/35MIN Diagnoses ESRD on dialysis N18.6; Z99.2 Chronic respiratory failure with hypoxia J96.11 Acute alteration in mental status R41.82 Anemia D64.9 Anemia type: due to chronic kidney disease Primary hypertension I10 Hypertension type: primary hypertension (4) Anemia Anemia type: due to chronic kidney disease (5) Hypertension Hypertension type: primary hypertension Qualified Code(s): I10 - Essential (primary) hypertension
[2024-10-11] MEDS: LORazepam 0.5 MG TAB PO STA (22:23)
[2024-10-12 06:34] LABS: BUN Creatinine Ratio 7.1 (10-20); Calcium 8.7 mg/dl (8.6-10.3); Creatinine Clr Calc Pharmacy 9.6 ml/min
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
[2024-10-12] MEDS: DOCUSATE SODIUM 100 MG CAP PO SCH (08:41)
--- NOTE | 2024-10-12 10:14 | Nephrology Progress Note ---
Date of Service October 12, 2024 Assessment & Plan (1) ESRD on dialysis: (2) Chronic respiratory failure with hypoxia: (3) Acute alteration in mental status: (4) Anemia: (5) Hypertension: Plan 79-year-old female with ESKD, on hemodialysis Wednesday, , Wednesday, admitted with hypoxic respiratory failure with volume overload and generalized weakness. Had dialysis yesterday, had 3 L UF yesterday, this morning she is still 3 kg above her dry weight. Electrolyte this morning acceptable. --Plan for her regular dialysis session for 3.5 hours, and UF for 3 L UF to reach at her EDW of 93 kg. --Dose medications for eGFR less than 10, Low K diet --Renal vitamins daily --Continue on Lokelma daily --continue PhosLo TIDM --rt arm precaution ( AVF) Admission and Anticipated Discharge Date Admission Date: October 09, 2024 Jorge Watson was seen and evaluated this morning with her at bedside. She seemed sleepy and lethargic but easily awoke up and answered questions. She reports getting Ativan last night as she was not able to sleep but reports overall feeling better. Denies shortness of breath, fever or chills. Had extra dialysis yesterday, had 3 L UF. Electrolyte acceptable. Blood pressure elevated. Review of Systems Review of Systems: All systems reviewed & are unremarkable except as noted in Subjective Physical Exam Constitutional: WD/WN, vitals as above + ill appearing Eyes: + anicteric sclerae Respiratory: no respiratory distress Auscultation: + diminished lung sounds Cardiovascular: RRR, no murmur, no edema Extremities: + AV fistula (Rt RC AVF with thrill and bruit, aneurysm stable.) Skin: no rashes, warm and dry Neurologic: no focal motor deficits Psychiatric: Orientation: alert and oriented x 3 Affect: euthymic affect Results & Data Vital Signs (Past 12 Hours) Vital Signs Temp Pulse Pulse Pulse Resp BP Pulse Ox 10/12/24 08:23 36.8 C 76 18 176/82 H 99 10/12/24 08:00 71 10/12/24 07:10 72 18 96 10/12/24 03:56 37.2 C 74 18 169/78 H 100 10/12/24 01:00 74 10/11/24 23:24 75 17 98 10/11/24 22:58 37.4 C 73 18 150/67 H 98 O2 Del Method O2 Flow Rate 10/12/24 08:23 Nasal Cannula 10/12/24 08:00 10/12/24 07:10 Nasal Cannula 3 10/12/24 03:56 Nasal Cannula 10/12/24 01:00 10/11/24 23:24 Nasal Cannula 3 10/11/24 22:58 Room Air PG Care Time/CCT Total # of Minutes Spent Total Time Spent with Patient: Total time spent is greater than 50% in coordination of care (as documented) at patient's floor/unit and/or counseling patient: Coding Level of Care Code 41404 SUB INP/OBS CARE 2/35MIN Diagnoses ESRD on dialysis N18.6; Z99.2 Chronic respiratory failure with hypoxia J96.11 Acute alteration in mental status R41.82 Anemia D64.9 Anemia type: due to chronic kidney disease Primary hypertension I10 Hypertension type: primary hypertension (4) Anemia Anemia type: due to chronic kidney disease (5) Hypertension Hypertension type: primary hypertension Qualified Code(s): I10 - Essential (primary) hypertension
[2024-10-12 15:10] LABS: iSTAT Hemoglobin 11.2 g/dl (12.0-16.0); iSTAT Ionized Calcium 1.14 mmol/l (1.12-1.32); iSTAT Potassium 4.7 mmol/L (3.3-5.0)
[2024-10-12 15:10] LABS: iSTAT Arterial Blood Gas HCO3 33 meg/L (19-24); iSTAT Arterial Blood Gas pCO2 62 mmHg (35-46); iSTAT Arterial Blood Gas pH 7.33 (7.35-7.45); iSTAT Arterial Blood Gas pO2 87 mmHg (80-95); iSTAT Carbon Dioxide 34 mmol/L (24-31); iSTAT Hematocrit 33 % (37-47); iSTAT Hemoglobin 11.2 g/dl (12.0-16.0); iSTAT Potassium 4.8 mmol/L (3.3-5.0); iSTAT Sample Type Arterial; iSTAT Sodium 135 mmol/L (135-144)
[2024-10-13 06:55] LABS: BUN Creatinine Ratio 7.5 (10-20); Calcium 8.8 mg/dl (8.6-10.3); Creatinine Clr Calc Pharmacy 12.4 ml/min; Potassium 3.9 mmol/L (3.5-5.1)
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
--- NOTE | 2024-10-13 10:16 | Nephrology Progress Note ---
Date of Service October 13, 2024 Assessment & Plan (1) ESRD on dialysis: (2) Chronic respiratory failure with hypoxia: (3) Acute alteration in mental status: (4) Anemia: (5) Hypertension: Plan 79-year-old female with ESKD, on hemodialysis Wednesday, , Wednesday, admitted with hypoxic respiratory failure with volume overload and generalized weakness. Had aigm-yp-eggu dialysis for 3 days to improve volume status and currently she is close to her dry weight. Electrolyte acceptable. --Okay to be discharged, she will have next dialysis tomorrow at the outpatient dialysis unit. --Dose medications for eGFR less than 10, Low K diet --Renal vitamins daily --Continue on Lokelma daily --continue PhosLo TIDM --rt arm precaution ( AVF) Admission and Anticipated Discharge Date Admission Date: October 09, 2024 Jorge Watson was seen and evaluated this morning. She reports overall feeling well, slept well last night. Denies feeling sleepy or lethargy, eager to go home. Had dialysis yesterday had 3 L UF, volume status improved significantly. Electrolyte acceptable. Review of Systems Review of Systems: All systems reviewed & are unremarkable except as noted in Subjective Physical Exam Constitutional: WD/WN, vitals as above no acute distress Eyes: + anicteric sclerae Respiratory: no respiratory distress Auscultation: + diminished lung sounds Cardiovascular: RRR, no murmur, no edema Extremities: + AV fistula (Rt RC AVF with thrill and bruit, aneurysm stable.) Skin: no rashes, warm and dry Neurologic: no focal motor deficits Psychiatric: Orientation: alert and oriented x 3 Affect: euthymic affect Results & Data Vital Signs (Past 12 Hours) Vital Signs Temp Pulse Pulse Resp BP Pulse Ox O2 Del Method 10/13/24 07:23 36.6 C 66 13 164/62 H 100 Nasal Cannula 10/13/24 07:15 68 18 96 Nasal Cannula 10/13/24 03:51 36.8 C 61 18 146/61 H 100 Nasal Cannula 10/12/24 23:28 62 15 100 Nasal Cannula 10/12/24 22:40 36.7 C 66 18 145/68 H 99 Nasal Cannula O2 Flow Rate 10/13/24 07:23 7 10/13/24 07:15 2 10/13/24 03:51 3 10/12/24 23:28 3 10/12/24 22:40 3 PG Care Time/CCT Total # of Minutes Spent Total Time Spent with Patient: Total time spent is greater than 50% in coordination of care (as documented) at patient's floor/unit and/or counseling patient: Coding Level of Care Code 87120 SUB INP/OBS CARE 2/35MIN Diagnoses ESRD on dialysis N18.6; Z99.2 Chronic respiratory failure with hypoxia J96.11 Acute alteration in mental status R41.82 Anemia D64.9 Anemia type: due to chronic kidney disease Primary hypertension I10 Hypertension type: primary hypertension (4) Anemia Anemia type: due to chronic kidney disease (5) Hypertension Hypertension type: primary hypertension Qualified Code(s): I10 - Essential (primary) hypertension
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
[2024-10-13 11:19] VITALS: BP 133/71; RESP 19; TEMP 97.7
[2024-10-13 11:56] VITALS: PULSE 75; O2SAT 98
[2024-10-13] MEDS ORDERED: ACETAMINOPHEN 500 MG TAB PO SCH (20:00)
== END 2024-10-13 12:15 | disposition home health service (06) | DRG 291 ==
LOC: ED 18:20 → 2E 21:09 → SUATTDRO 21:09 → 2E 22:24

== ENCOUNTER 2024-12-05 19:32 | Observation (INO) ==
--- NOTE | 2024-12-05 19:43 | Emergency Department Note ---
Impression & Plan Acute hypoxic respiratory failure, End-stage renal disease on hemodialysis, Shortness of breath ED Provider Note NAME: LITO MOHR AGE: 79 SEX: F : 1945 ARRIVES VIA: Ambulance INFORMANT: Patient ED PROVIDER(S): Carlos Singh DO CHIEF COMPLAINT: Shortness of breath and weakness HPI: Patient is a 79-year-old female with a past medical history of CHF, pulmonary vascular congestion, palpitations, heart failure, renal failure on dialysis Wednesday, , Wednesday who had a complete course of dialysis today presents to the ER for weakness. Weakness started earlier today has been getting worse. Denies any headache or change in vision. No chest pain or shortness of breath. No nausea, vomiting, or diarrhea. No dysuria, urgency, or frequency. No other exacerbating or remitting factors. ADDITIONAL HISTORY OBTAINED: Per HPI Chronic Medical/Social Conditions Affecting Care: Per HPI PAST MEDICAL HISTORY:See Below PAST SURGICAL HISTORY:See Below FAMILY HISTORY:See Below SOCIAL HISTORY:See Below HOME MEDICATIONS:See Below ALLERGIES:See Below VITALS:See Below PHYSICAL EXAMINATION: GENERAL: Sitting up in bed, alert, chronically ill-appearing EYE EXAM: normal conjunctiva. PERRL and EOM's grossly intact. OROPHARYNX: mucous membranes are moist NECK: supple, no nuchal rigidity, no adenopathy, non-tender LUNGS: Diminished bilaterally. Normal chest wall mechanics HEART: no murmurs, S1 normal and S2 normal ABDOMEN: abdomen soft, non-tender, normo-active bowel sounds, no masses, no rebound or guarding. BACK: Back is symmetrical on inspection and there is no deformity, no midline tenderness, no CVA tenderness. SKIN: no rashes and no bruising UPPER EXTREMITIES: upper extremities are grossly normal. LOWER EXTREMITIES: No pitting edema. NEURO EXAM: Normal sensorium, cranial nerves II-XII grossly intact, normal speech, no gross weakness of arms, no gross weakness of legs. MEDICAL DECISION MAKING: Patient is a 79-year-old female who presents ER brought in by EMS found to be hypoxic on nonrebreather. IV was established blood work was obtained. She was switched to high flow nasal cannula. Labs showed no significant leukocytosis. Hemoglobin at 10 fairly consistent with previous. VBG with a pH of 7.3 and a CO2 of 61. BMP with mild hyponatremia 132. Creatinine at 5.6 as expected on dialysis. Glucose 327. Repeat was 268. LFTs and bilirubin were unremarkable. Troponin slightly elevated. Lipase normal. Viral panel negative. Chest x-ray with no signs of overt failure. Patient was updated bedside. Discussed case with the hospitalist for further evaluation management treatment. Consults/Care Managements Discussions: Per [facility] Triage Nursing notes reviewed. Limited review of prior medical records performed Vital Signs: reviewed and remarkable for no significant abnormalities Differential diagnosis: Differential diagnoses includes but is not limited to pneumonia, bronchitis, COPD/Asthma exacerbation, pneumothorax, pulmonary embolism, congestive heart failure, acute coronary syndrome ER treatment provided: See below Diagnostics interpreted by me include EKG and cardiac monitoring as listed below: -Cardiac Monitoring: An order was placed for continuous cardiac monitoring. The monitor shows a rate of 65 with sinus rhythm. -ECG: Sinus rhythm rate of 64 Left axis No PVCs QTc 435 -Laboratory studies:Interpreted by me as stated above in MDM and shown below. Imaging studies: Xrays: As interpreted by me: Portable AP upright 1 view of the chest shows no focal M-Trate CTs show: none Procedures:none Critical Care: I have personally spent 32 minutes of critical care time in the direct management of this patient. This includes bedside care, interpretation of diagnostic studies, and testing, discussion with consultants, patient, and family members, and other required patient management activities. This 32 minutes is in excess of all separately billable procedures. Past Med/Surg History Problem List (Updated 12/06/24 @ 00:27 by Carlos Singh DO) Shortness of breath (Acute) Acute hypoxic respiratory failure (Acute) Acute alteration in mental status (Acute) Toxic metabolic encephalopathy Stage III pressure ulcer of buttock (Acute) Chronic respiratory failure with hypoxia RSV (acute bronchiolitis due to respiratory syncytial virus) Pulmonary vascular congestion (Acute) Paroxysmal atrial tachycardia Stage II pressure ulcer of buttock (Acute) (HFpEF) heart failure with preserved ejection fraction Palpitation B12 deficiency PNA (pneumonia) Stage I pressure ulcer of buttock (Acute) Acute heart failure with preserved ejection fraction Acute respiratory failure with hypoxia and hypercarbia Acute hyperkalemia (Acute) Elevated troponin (Acute) Metabolic acidosis (Acute) Leukocytosis (Acute) AMS (altered mental status) (Acute) Earache on left Sore throat Mixed restrictive and obstructive lung disease Counseling regarding advanced directives and goals of care Palliative care by specialist AMS (altered mental status) (Acute) Confusion Metabolic encephalopathy Arthralgia of right foot Chronic kidney disease-mineral and bone disorder Hypertension Anemia Coronary artery disease Vitamin D deficiency (Acute) Polyarthritis (Acute) Paresthesias (Acute) Obstructive sleep apnea (Acute) Insomnia (Acute) Dyslipidemia (Acute) Diabetic retinopathy (Acute) Cardiomyopathy Restrictive lung disease (Acute) End-stage renal disease on hemodialysis (Acute) CHF (congestive heart failure) (Acute) Polymyalgia rheumatica Abnormal chest CT Weakness (Acute) Diverticulitis (Acute) Hiatal hernia with gastroesophageal reflux disease and esophagitis Early satiety Nausea & vomiting Type 2 diabetes mellitus with diabetic neuropathy (Acute) Right leg pain Leg edema, right Contusion of face Right facial numbness History of fracture of orbit (~06/20/21) Memory change Neuropathy Abnormal gait RLS (restless legs syndrome) Low back pain Seizure-like activity Elevated ferritin level Tremor Depression Anxiety Medical History Acute and chronic respiratory failure with hypoxia Acute and chronic respiratory failure with hypercapnia Weakness generalized Cellulitis of right leg Morbid obesity with BMI of 40.0-44.9, adult Diabetic eyes Hallucinations Fatigue Abnormal EKG Acute electrocardiogram changes Transaminitis Elevated troponin Myoclonus Acute hyperkalemia Hyperkalemia, diminished renal excretion Laceration of left lower extremity Hernia, hiatal GERD without esophagitis Macular puckering, bilateral Panniculitis Tubular adenoma of colon Hypertension History of thrombophlebitis Arthritis Surgical History History of tonsillectomy S/P repair of paraesophageal hernia History of nasal septoplasty History of cataract surgery History of bladder surgery S/P arteriovenous (AV) fistula creation S/P rotator cuff repair S/P hysterectomy H/O: hysterectomy Family History Mother Leukemia Cerebral aneurysm Hypertension Anxiety Diabetes Cancer Heart disease Grandmother Hypertension Father Osteoarthritis COPD (chronic obstructive pulmonary disease) Diabetes Hearing loss Sister Diabetes Myocardial infarction COPD (chronic obstructive pulmonary disease) Hypertension Brother Myocardial infarction Diabetes Cancer Stomach cancer Other No family history of bleeding disorder Denies family history of Ovarian cancer Prostate cancer Breast cancer Colorectal cancer Stroke Asthma Social History Smoking Status: Never smoker Second Hand Exposure: No; Do You Dip or Chew Tobacco: No; Hx Alcohol Use: No Hx Substance Use: No Preferred Language: Bhutanese Communication Ability: Effective Visual Impairment: No Limitations Hearing Ability: Normal Inspector Fabric Required: Yes Beliefs That Will Affect Care: None marital status: Current Living Situation: Spouse Current Living Situation Comment: lives with current occupational status: retired How many Children do You have: 1 Other Information That Helps Us Care for You: No Feels Safe at Home: Yes Safety Concerns: Feels Safe At This Time Childhood Exposure to Second-Hand Smoke: No Dental Care, Regularly: No Physical Activity Frequency: 1-2 Times per Week Seatbelt Use: always Sunscreen Use: No Assistive Devices: Walker and Wheelchair Allergies Allergies Allergy/AdvReac Type Severity Reaction Status Date / Time lisinopril AdvReac Intermediate cough Verified 12/05/24 20:44 Home Meds Home Medications Medication Instructions Recorded Confirmed calcium acetate 667 mg tablet 1,334 mg PO TIDWMEAL 12/17/20 12/05/24 hydralazine 25 mg tablet 25 mg PO TID 02/21/24 12/05/24 carvedilol 6.25 mg tablet 6.25 mg PO BID 06/28/24 12/05/24 cholecalciferol (vitamin D3) 50 50 mcg PO QAM 06/28/24 12/05/24 mcg (2,000 unit) capsule levothyroxine 100 mcg tablet 100 mcg PO QAM 06/28/24 12/05/24 olanzapine 10 mg tablet 5 mg PO BID 06/28/24 12/05/24 Oxygen Home 10/09/24 11/13/24 blood sugar diagnostic (OneTouch 10/09/24 11/13/24 Verio test strips) blood-glucose meter 10/09/24 11/13/24 lancets 33 gauge 10/09/24 11/13/24 calcium carbonate 500 mg PO DAILY 12/05/24 12/05/24 cranberry 500 mg capsule 500 mg PO DAILY 12/05/24 12/05/24 magnesium 250 mg tablet 250 mg PO DAILY 12/05/24 12/05/24 vit B complx, C-iron 8 mg-folic 1 tab PO QDL 12/05/24 12/05/24 acid 800 mcg-D3 1,000 unit-zinc tablet (ProRenal) Previous Rx's Medication Instructions Recorded ondansetron 8 mg disintegrating 8 mg PO Q8H PRN Nausea #90 tabs 07/31/22 tablet lactulose 10 gram/15 mL oral 15 ml PO DAILY PRN Constipation 08/13/23 solution #1,350 mL sodium zirconium cyclosilicate 10 10 g PO DAILY #30 ea 02/23/24 gram oral powder packet cyanocobalamin (vitamin B-12) 500 500 mcg PO QAM #30 tabs 04/12/24 mcg tablet venlafaxine 75 mg capsule,extended 75 mg PO HS #90 caps 07/11/24 release 24 hr ipratropium 0.5 mg-albuterol 3 mg 3 ml inhalation Q8H #90 mL 09/28/24 (2.5 mg base)/3 mL nebulization soln gabapentin 300 mg capsule 300 mg PO 3XWK #36 caps 10/02/24 pantoprazole 40 mg tablet,delayed 40 mg PO BID 90 days #180 tabs 10/02/24 release Results & Data (ED) Vital Signs Vital Signs - 24 hr 12/05/24 19:40 12/05/24 19:49 12/05/24 19:50 Temperature 37.3 C Temperature Source Oral Pulse Rate 70 63 Pulse Rate [Finger] Respiratory Rate 18 Respiratory Effort / Characteristics Spontaneous Short of Breath Respiratory Depth Normal Respiratory Pattern Regular Blood Pressure 125/79 Blood Pressure Mean 94 Pulse Oximetry 100 100 Oxygen Delivery Method Non-rebreather High Flow Nasal Cannula Non-rebreather Oxygen Flow Rate 10 10 Fraction of Inspired Oxygen Sepsis Recent Fever Within 48 Hours No Sepsis New/Unexplained Change in Mental Status No Sepsis Action Taken by Nursing No Action Required Pulse Oximetry Post Tiitration 99 12/05/24 20:00 12/05/24 20:01 12/05/24 20:09 Temperature Temperature Source Pulse Rate 71 67 Pulse Rate [Finger] 66 Respiratory Rate 18 18 20 Respiratory Effort / Characteristics Non-Labored Spontaneous Respiratory Depth Respiratory Pattern Blood Pressure 132/69 Blood Pressure Mean 90 Pulse Oximetry 94 95 92 Oxygen Delivery Method High Flow Nasal Cannula High Flow Nasal Cannula High Flow Nasal Cannula Oxygen Flow Rate 30 Fraction of Inspired Oxygen 40 Sepsis Recent Fever Within 48 Hours Sepsis New/Unexplained Change in Mental Status Sepsis Action Taken by Nursing Pulse Oximetry Post Tiitration 12/05/24 20:30 12/05/24 20:57 12/05/24 21:36 Temperature Temperature Source Pulse Rate 63 65 Pulse Rate [Finger] Respiratory Rate 18 17 Respiratory Effort / Characteristics Respiratory Depth Respiratory Pattern Blood Pressure 125/56 L 131/61 126/63 Blood Pressure Mean 67 84 84 Pulse Oximetry 96 96 Oxygen Delivery Method High Flow Nasal Cannula High Flow Nasal Cannula Oxygen Flow Rate Fraction of Inspired Oxygen Sepsis Recent Fever Within 48 Hours Sepsis New/Unexplained Change in Mental Status Sepsis Action Taken by Nursing Pulse Oximetry Post Tiitration 12/05/24 22:03 12/05/24 22:24 Temperature Temperature Source Pulse Rate 73 64 Pulse Rate [Finger] Respiratory Rate 15 18 Respiratory Effort / Characteristics Respiratory Depth Respiratory Pattern Blood Pressure 104/74 Blood Pressure Mean 84 Pulse Oximetry 97 97 Oxygen Delivery Method High Flow Nasal Cannula High Flow Nasal Cannula Oxygen Flow Rate Fraction of Inspired Oxygen Sepsis Recent Fever Within 48 Hours Sepsis New/Unexplained Change in Mental Status Sepsis Action Taken by Nursing Pulse Oximetry Post Tiitration Laboratory Data 12/05/24 19:51 12/05/24 19:51 Lab Results 12/05/24 12/05/24 12/05/24 Range/Units 19:51 19:57 19:58 WBC 9.15 (4.8-10.8) K/ul RBC 3.36 L (4.20-5.40) M/uL Hgb 10.6 L (12.0-16.0) g/dl POC Hgb 11.9 L (12.0-16.0) g/dl Hct 35.4 L (37.0-47.0) % POC Hct 35 L (37-47) % MCV 105.4 H (80.0-100.0) fL MCH 31.5 (25.0-34.0) pg MCHC 29.9 L (32.0-36.0) g/dL RDW Std Deviation 54.9 H (36.4-46.3) fL RDW Coeff of Jared 14.2 (11.5-14.5) % Plt Count 166 (130-400) K/uL MPV 10.2 (9.4-12.4) fL Immature Gran % (Auto) 0.3 % Neut % (Auto) 73.8 % Lymph % (Auto) 12.3 % [place] % (Auto) 11.3 % Eos % (Auto) 1.6 % Baso % (Auto) 0.7 % Neut # (Auto) 6.75 H (1.40-6.50) K/uL Lymph # (Auto) 1.13 L (1.20-3.40) K/uL [place] # (Auto) 1.03 H (0.11-0.59) K/uL Eos # (Auto) 0.15 (0.00-0.50) K/uL Baso # (Auto) 0.06 (0.00-0.20) K/uL Immature Gran # (Auto) 0.03 (0.01-0.20) K/uL VBG pH 7.33 L (7.36-7.41) VBG pCO2 65 H (38-50) mmHg VBG pO2 49 mmHg VBG HCO3 34 mmol/L VBG O2 Saturation 82.0 % VBG Base Excess 6.2 mEq/L POC Sodium 132 L (135-144) mmol/L Sodium 132 L (136-145) mmol/L POC Potassium 4.0 (3.3-5.0) mmol/L Potassium 3.9 (3.5-5.1) mmol/L POC Chloride 92 L (101-112) mmol/L Chloride 92 L (98-107) mmol/L Carbon Dioxide 33 H (21-32) mmol/L POC Total CO2 31 (24-31) mmol/L Anion Gap 7 (3-11) POC Anion Gap 14.0 L (16-25) mmol/L POC BUN 45 H (7-18) mg/dl BUN 44 H (6-23) mg/dl Creatinine 5.66 H* (0.6-1.2) mg/dl POC Creatinine 5.8 H* (0.6-1.3) mg/dl Est Cr Clr Drug Dosing 7.7 ml/min eGFR 7.16 BUN/Creatinine Ratio 7.8 L (10-20) Glucose 327 H* (70-99(Fasting)) mg/dl POC Glucose (other) 320 H (70-99) mg/dl Calcium 8.5 L (8.6-10.3) mg/dl POC Ioniz Calcium Ramana 1.09 L (1.12-1.32) mmol/l Total Bilirubin 0.4 (0.2-1.0) mg/dl AST 22 (13-39) U/L ALT 15 (7-52) U/L Alkaline Phosphatase 103 (34-104) U/L Troponin I High Sens 31.5 H (0-14) pg/ml Total Protein 7.3 (6.0-8.3) gm/dl Albumin 3.4 (3.4-5.0) gm/dl Globulin 3.9 (2.5-4.0) gm/dl Albumin/Globulin Ratio 0.9 (0.9-2) Lipase 28 (11-82) U/L Adenovirus (PCR) Not Detected (NotDetected) B. pertussis DNA (PCR) Not Detected (NotDetected) B.parapertussis DNA PCR Not Detected (NotDetected) C. pneumoniae DNA (PCR) Not Detected (NotDetected) Coronavirus OC43 (PCR) Not Detected (NotDetected) Coronavirus HKU1 (PCR) Not Detected (NotDetected) Coronavirus 229E (PCR) Not Detected (NotDetected) SARS-CoV-2 (PCR) Not Detected (NotDetected) Coronavirus NL63 (PCR) Not Detected (NotDetected) Human Metapneumovir PCR Not Detected (NotDetected) Influenza Type A (PCR) Not Detected (NotDetected) Influenza Type B (PCR) Not Detected (NotDetected) M. pneumoniae (PCR) Not Detected (NotDetected) Parainfluenza 1 (PCR) Not Detected (NotDetected) Parainfluenza 2 (PCR) Not Detected (NotDetected) Parainfluenza 3 (PCR) Not Detected (NotDetected) Parainfluenza 4 (PCR) Not Detected (NotDetected) RSV (PCR) Not Detected (NotDetected) Entero/Rhino (PCR) Not Detected (NotDetected) 12/05/24 12/05/24 Range/Units 21:51 22:15 WBC (4.8-10.8) K/ul RBC (4.20-5.40) M/uL Hgb (12.0-16.0) g/dl POC Hgb (12.0-16.0) g/dl Hct (37.0-47.0) % POC Hct (37-47) % MCV (80.0-100.0) fL MCH (25.0-34.0) pg MCHC (32.0-36.0) g/dL RDW Std Deviation (36.4-46.3) fL RDW Coeff of Jared (11.5-14.5) % Plt Count (130-400) K/uL MPV (9.4-12.4) fL Immature Gran % (Auto) % Neut % (Auto) % Lymph % (Auto) % [place] % (Auto) % Eos % (Auto) % Baso % (Auto) % Neut # (Auto) (1.40-6.50) K/uL Lymph # (Auto) (1.20-3.40) K/uL [place] # (Auto) (0.11-0.59) K/uL Eos # (Auto) (0.00-0.50) K/uL Baso # (Auto) (0.00-0.20) K/uL Immature Gran # (Auto) (0.01-0.20) K/uL VBG pH 7.34 L (7.36-7.41) VBG pCO2 61 H (38-50) mmHg VBG pO2 69 mmHg VBG HCO3 33 mmol/L VBG O2 Saturation 93.9 % VBG Base Excess 5.2 mEq/L POC Sodium (135-144) mmol/L Sodium (136-145) mmol/L POC Potassium (3.3-5.0) mmol/L Potassium (3.5-5.1) mmol/L POC Chloride (101-112) mmol/L Chloride (98-107) mmol/L Carbon Dioxide (21-32) mmol/L POC Total CO2 (24-31) mmol/L Anion Gap (3-11) POC Anion Gap (16-25) mmol/L POC BUN (7-18) mg/dl BUN (6-23) mg/dl Creatinine (0.6-1.2) mg/dl POC Creatinine (0.6-1.3) mg/dl Est Cr Clr Drug Dosing ml/min eGFR BUN/Creatinine Ratio (10-20) Glucose (70-99(Fasting)) mg/dl POC Glucose (other) (70-99) mg/dl Calcium (8.6-10.3) mg/dl POC Ioniz Calcium Ramana (1.12-1.32) mmol/l Total Bilirubin (0.2-1.0) mg/dl AST (13-39) U/L ALT (7-52) U/L Alkaline Phosphatase (34-104) U/L Troponin I High Sens 30.4 H (0-14) pg/ml Total Protein (6.0-8.3) gm/dl Albumin (3.4-5.0) gm/dl Globulin (2.5-4.0) gm/dl Albumin/Globulin Ratio (0.9-2) Lipase (11-82) U/L Adenovirus (PCR) (NotDetected) B. pertussis DNA (PCR) (NotDetected) B.parapertussis DNA PCR (NotDetected) C. pneumoniae DNA (PCR) (NotDetected) Coronavirus OC43 (PCR) (NotDetected) Coronavirus HKU1 (PCR) (NotDetected) Coronavirus 229E (PCR) (NotDetected) SARS-CoV-2 (PCR) (NotDetected) Coronavirus NL63 (PCR) (NotDetected) Human Metapneumovir PCR (NotDetected) Influenza Type A (PCR) (NotDetected) Influenza Type B (PCR) (NotDetected) M. pneumoniae (PCR) (NotDetected) Parainfluenza 1 (PCR) (NotDetected) Parainfluenza 2 (PCR) (NotDetected) Parainfluenza 3 (PCR) (NotDetected) Parainfluenza 4 (PCR) (NotDetected) RSV (PCR) (NotDetected) Entero/Rhino (PCR) (NotDetected) Administered Medications Albuterol (Albut/Ipratrop 3mg/0.5mg Neb 3 Ml Vial) 3 ml INH Q8R ENRIQUETA; Protocol Stop: 01/04/25 22:59 Last Admin: 12/05/24 23:35 Dose: 3 ml Documented By: SNEHA Insulin Aspart (Insulin Aspart Per Unit Charge) 0 units SC ACHS ENRIQUETA Stop: 01/04/25 22:59 Last Admin: 12/05/24 23:10 Dose: 3 units Documented By: CLAIRE Co-signed By: DM Insulin Glargine (Lantus Per Unit Charge) 7 units SQ BID ENRIQUETA Stop: 01/04/25 22:59 Last Admin: 12/05/24 23:10 Dose: 7 units Documented By: CLAIRE Co-signed By: [facility] Discharge Plan Visit Data Chief Complaint: Shortness of Breath/Dyspnea Stated Complaint: SHORTNESS OF BREATH, WEAKNESS ED Provider: Carlos Singh Discharge Problem: Acute hypoxic respiratory failure, End-stage renal disease on hemodialysis, Shortness of breath Patient Disposition: Admitted As Inpatient Condition: Serious Discharge Instructions Interventions: ED Discharge Assessment Last Done: 12/05/24 22:45
[2024-12-05 20:02] LABS: Base Excess VBG 6.2 mEq/L; HCO3 VBG 34 mmol/L; Oxygen Saturation VBG 82.0 %; PCO2 VBG 65 mmHg (38-50); PO2 VBG 49 mmHg; pH VBG 7.33 (7.36-7.41)
[2024-12-05 20:06] LABS: Hematocrit (blood only) 35.4 % (37.0-47.0); Hemoglobin 10.6 g/dl (12.0-16.0); Immature Granulocytes # (auto) 0.03 K/uL (0.01-0.20); Immature Granulocytes % (auto) 0.3 %; Mean Corpuscular Hemoglobin 31.5 pg (25.0-34.0); Mean Corpuscular Volume 105.4 fL (80.0-100.0); Platelet Count 166 K/uL (130-400); RDW Standard Deviation 54.9 fL (36.4-46.3); Red Blood Count 3.36 M/uL (4.20-5.40); White Blood Count 9.15 K/ul (4.8-10.8)
[2024-12-05 20:40] LABS: Alanine Aminotransferase 15.0 U/L (7-52); Albumin Globulin Ratio 0.9 (0.9-2); Alkaline Phosphatase 103.0 U/L (34-104); Anion Gap 7.0 (3-11); Bilirubin,Total 0.4 mg/dl (0.2-1.0); Blood Urea Nitrogen 44.0 mg/dl (6-23); Calcium 8.5 mg/dl (8.6-10.3); Carbon Dioxide 33.0 mmol/L (21-32); Chloride 92.0 mmol/L (98-107); Creatinine Clr Calc Pharmacy 7.7 ml/min; Globulin 3.9 gm/dl (2.5-4.0); Glucose 327.0 mg/dl (70-99(Fasting)); Lipase 28.0 U/L (11-82); Potassium 3.9 mmol/L (3.5-5.1); Sodium 132.0 mmol/L (136-145); Total Protein 7.3 gm/dl (6.0-8.3)
[2024-12-05 21:04] LABS: Chlamydia pneumoniae PCR Not Detected (NotDetected); Coronavirus 229E PCR Not Detected (NotDetected); Coronavirus CoV-2 (COVID19)PCR Not Detected (NotDetected); Coronavirus HKU1 PCR Not Detected (NotDetected); Coronavirus NL63 PCR Not Detected (NotDetected); Coronavirus OC43PCR Not Detected (NotDetected); Human Metapneumovirus PCR Not Detected (NotDetected); Parainfluenza Virus 1 PCR Not Detected (NotDetected); Parainfluenza Virus 2 PCR Not Detected (NotDetected); Parainfluenza Virus 3 PCR Not Detected (NotDetected); Parainfluenza Virus 4 PCR Not Detected (NotDetected); Respiratory Syncytial VirusPCR Not Detected (NotDetected); Rhinovirus/Enterovirus PCR Not Detected (NotDetected)
[2024-12-05 22:22] LABS: Base Excess VBG 5.2 mEq/L; HCO3 VBG 33 mmol/L; Oxygen Saturation VBG 93.9 %; PCO2 VBG 61 mmHg (38-50); PO2 VBG 69 mmHg; pH VBG 7.34 (7.36-7.41)
--- NOTE | 2024-12-05 22:34 | History & Physical Report ---
Date of Service December 05, 2024 Assessment & Plan (1) Acute hypoxic respiratory failure: (2) Shortness of breath: (3) Weakness: (4) Hypertension: (5) Dyslipidemia: (6) Type 2 diabetes mellitus with diabetic neuropathy: Plan 79yo female with ESRD on HD, HTN, DM, GERD presenting with generalized weakness, shortness of breath and acute hypoxic respiratory failure. Patient initially managed on HFNC in the ER, now on NC at 4L/min with adequate oxygenation. Etiology uncertain at this time. Possible pulmonary edema, mild volume overload. Patient is compliant with HD - last full treatment received today. No obvious infection. No wheeze. #Acute hypoxic respiratory failure/SOB -Admit to medical with telemetry -Continue supplemental oxygen as needed, wean as tolerated -Continue Duonebs q 4 hours -Albuterol q 2 hours PRN -BiPAP qHS #ESRD on HD -Continue PhosLo -Continue daily sodium zirconium #Hypertension -Continue Carvedilol 6.25mg po BID -Continue Hydralazine 25mg po TID #Diabetes - not on any medications for DM management currently. Elevated blood sugar presently at 327. Last A1C=7.4 on 09/25/24 -Lantus 7u BID -ISS -Continue Gabapentin for neuropathy #Hypothyroidism - TSH last normal at 2.623 on 09/25/24 -Continue Synthroid #GERD -Continue Protonix 40mg po BID #Mental health -Continue Venlafaxine -Continue Zyprexa History of Present Illness Chief Complaint: shortness of breath and hypoxia Primary Care Provider: Julito Burt MD Shirley Patrick is a 79yo female with history of ESRD on HD q T/R/S, HTN, DM, GERD, chronic hypoxic respiratory failure on 3L supplemental O2 at home presenting with shortness of breath and hypoxia at home. Patient reports feeling worsening shortness of breath today, hypoxic with saturations of 83%. She denies cough, fever, chills, chest pain, wheezing, worsening edema or orthopnea. Patient had a full dialysis treatment today. She is anuric. Compliant with dialysis. She reports they typically remove 3-4L of fluid with each treatment. She reports generalized weakness. No additional complaints at this time. In the ER patient was managed on HFNC at 30L/min, 41% FiO2 with improvement in symptoms. ER Course: Insulin 7u Albuterol neb Allergies Allergy/AdvReac Type Severity Reaction Status Date / Time lisinopril AdvReac Intermediate cough Verified 12/05/24 20:44 Home Medications Medication Instructions Recorded Confirmed Type calcium acetate 667 mg tablet 1,334 mg PO TIDWMEAL 12/17/20 12/05/24 History ondansetron 8 mg disintegrating 8 mg PO Q8H PRN Nausea #90 tabs 07/31/22 12/05/24 Rx tablet lactulose 10 gram/15 mL oral 15 ml PO DAILY PRN Constipation 08/13/23 12/05/24 Rx solution #1,350 mL hydralazine 25 mg tablet 25 mg PO TID 02/21/24 12/05/24 History sodium zirconium cyclosilicate 10 10 g PO DAILY #30 ea 02/23/24 12/05/24 Rx gram oral powder packet cyanocobalamin (vitamin B-12) 500 500 mcg PO QAM #30 tabs 04/12/24 12/05/24 Rx mcg tablet carvedilol 6.25 mg tablet 6.25 mg PO BID 06/28/24 12/05/24 History cholecalciferol (vitamin D3) 50 50 mcg PO QAM 06/28/24 12/05/24 History mcg (2,000 unit) capsule levothyroxine 100 mcg tablet 100 mcg PO QAM 06/28/24 12/05/24 History olanzapine 10 mg tablet 5 mg PO BID 06/28/24 12/05/24 History venlafaxine 75 mg capsule,extended 75 mg PO HS #90 caps 07/11/24 12/05/24 Rx release 24 hr ipratropium 0.5 mg-albuterol 3 mg 3 ml inhalation Q8H #90 mL 09/28/24 12/05/24 Rx (2.5 mg base)/3 mL nebulization soln gabapentin 300 mg capsule 300 mg PO 3XWK #36 caps 10/02/24 12/05/24 Rx pantoprazole 40 mg tablet,delayed 40 mg PO BID 90 days #180 tabs 10/02/24 12/05/24 Rx release Oxygen Home 10/09/24 11/13/24 History blood sugar diagnostic (OneTouch 10/09/24 11/13/24 History Verio test strips) blood-glucose meter 10/09/24 11/13/24 History lancets 33 gauge 10/09/24 11/13/24 History calcium carbonate 500 mg PO DAILY 12/05/24 12/05/24 History cranberry 500 mg capsule 500 mg PO DAILY 12/05/24 12/05/24 History magnesium 250 mg tablet 250 mg PO DAILY 12/05/24 12/05/24 History vit B complx, C-iron 8 mg-folic 1 tab PO QDL 12/05/24 12/05/24 History acid 800 mcg-D3 1,000 unit-zinc tablet (ProRenal) Past Med/Surg History Problem List Shortness of breath (Acute) Acute hypoxic respiratory failure (Acute) Acute alteration in mental status (Acute) Toxic metabolic encephalopathy Stage III pressure ulcer of buttock (Acute) Chronic respiratory failure with hypoxia RSV (acute bronchiolitis due to respiratory syncytial virus) Pulmonary vascular congestion (Acute) Paroxysmal atrial tachycardia Stage II pressure ulcer of buttock (Acute) (HFpEF) heart failure with preserved ejection fraction Palpitation B12 deficiency PNA (pneumonia) Stage I pressure ulcer of buttock (Acute) Acute heart failure with preserved ejection fraction Acute respiratory failure with hypoxia and hypercarbia Acute hyperkalemia (Acute) Elevated troponin (Acute) Metabolic acidosis (Acute) Leukocytosis (Acute) AMS (altered mental status) (Acute) Earache on left Sore throat Mixed restrictive and obstructive lung disease Counseling regarding advanced directives and goals of care Palliative care by specialist AMS (altered mental status) (Acute) Confusion Metabolic encephalopathy Arthralgia of right foot Chronic kidney disease-mineral and bone disorder Hypertension Anemia Coronary artery disease Vitamin D deficiency (Acute) Polyarthritis (Acute) Paresthesias (Acute) Obstructive sleep apnea (Acute) Insomnia (Acute) Dyslipidemia (Acute) Diabetic retinopathy (Acute) Cardiomyopathy Restrictive lung disease (Acute) End-stage renal disease on hemodialysis (Acute) CHF (congestive heart failure) (Acute) Polymyalgia rheumatica Abnormal chest CT Weakness (Acute) Diverticulitis (Acute) Hiatal hernia with gastroesophageal reflux disease and esophagitis Early satiety Nausea & vomiting Type 2 diabetes mellitus with diabetic neuropathy (Acute) Right leg pain Leg edema, right Contusion of face Right facial numbness History of fracture of orbit (~06/20/21) Memory change Neuropathy Abnormal gait RLS (restless legs syndrome) Low back pain Seizure-like activity Elevated ferritin level Tremor Depression Anxiety Medical History Acute hypotension Acute respiratory acidosis ESRD on dialysis COPD, severe Hypertension Depression with anxiety Hypothyroidism Diabetes mellitus Acute and chronic respiratory failure with hypoxia Acute and chronic respiratory failure with hypercapnia Weakness generalized Cellulitis of right leg Morbid obesity with BMI of 40.0-44.9, adult Diabetic eyes Hallucinations Fatigue Abnormal EKG Acute electrocardiogram changes Transaminitis Elevated troponin Myoclonus Acute hyperkalemia Hyperkalemia, diminished renal excretion Laceration of left lower extremity Hernia, hiatal GERD without esophagitis Macular puckering, bilateral Panniculitis Tubular adenoma of colon Hypertension History of thrombophlebitis Arthritis Surgical History History of tonsillectomy S/P repair of paraesophageal hernia History of nasal septoplasty History of cataract surgery History of bladder surgery S/P arteriovenous (AV) fistula creation S/P rotator cuff repair S/P hysterectomy H/O: hysterectomy Family History Mother Leukemia Cerebral aneurysm Hypertension Anxiety Diabetes Cancer Heart disease Grandmother Hypertension Father Osteoarthritis COPD (chronic obstructive pulmonary disease) Diabetes Hearing loss Sister Diabetes Myocardial infarction COPD (chronic obstructive pulmonary disease) Hypertension Brother Myocardial infarction Diabetes Cancer Stomach cancer Other No family history of bleeding disorder Denies family history of Ovarian cancer Prostate cancer Breast cancer Colorectal cancer Stroke Asthma Social History Smoking Status: Never smoker Second Hand Exposure: No; Do You Dip or Chew Tobacco: No; Hx Alcohol Use: No Hx Substance Use: No Preferred Language: [place] Communication Ability: Effective Visual Impairment: No Limitations Hearing Ability: Normal Shipping Clerk Crating Required: Yes Beliefs That Will Affect Care: None marital status: Current Living Situation: Spouse Current Living Situation Comment: lives with current occupational status: retired How many Children do You have: 1 Other Information That Helps Us Care for You: No Feels Safe at Home: Yes Safety Concerns: Feels Safe At This Time Childhood Exposure to Second-Hand Smoke: No Dental Care, Regularly: No Physical Activity Frequency: 1-2 Times per Week Seatbelt Use: always Sunscreen Use: No Assistive Devices: Walker and Wheelchair Review of Systems Review of Systems: All systems reviewed & are unremarkable except as noted in HPI & below Physical Exam Physical Exam: General: patient resting comfortably, NAD, non-toxic in appearance, AA&O x 4 Skin: warm, dry, intact, no rashes or lesions HEENT: NC/AT, PERRL, EOMI, anicteric sclera, conjunctiva without injection, external ear normal to inspection and nontender, nares patent, moist mucus membranes, dentition intact, no oropharyngeal lesions, neck supple, trachea midline, no LAD, no thyromegaly, no JVD Heart: +S1/S2, regular, no m/r/g Lungs: equal air entry bilaterally, no rales/rhonchi/wheezes Abd: +BS, soft, NT/ND, no masses/organomegaly/ascites Ext: warm, 2+ pulses in UE/LE bilaterally, no clubbing/cyanosis or edema Neuro: nonfocal, patient AA&O x 4, speech intact, no facial droop, moving all extremities on command with equal strength 5/5 Results & Data Results & Data Vital Signs (Past 12 Hours) Vital Signs Temp Pulse Pulse Resp BP Pulse Ox O2 Del Method 12/05/24 22:03 73 15 97 High Flow Nasal Cannula 12/05/24 21:36 65 17 126/63 96 High Flow Nasal Cannula 12/05/24 20:57 63 18 131/61 96 High Flow Nasal Cannula 12/05/24 20:30 125/56 L 12/05/24 20:09 67 20 92 High Flow Nasal Cannula 12/05/24 20:01 66 18 95 High Flow Nasal Cannula 12/05/24 20:00 71 18 132/69 94 High Flow Nasal Cannula 12/05/24 19:50 63 12/05/24 19:49 100 High Flow Nasal Cannula, Non-rebreather 12/05/24 19:40 37.3 C 70 18 125/79 100 Non-rebreather O2 Flow Rate FiO2 12/05/24 22:03 12/05/24 21:36 12/05/24 20:57 12/05/24 20:30 12/05/24 20:09 12/05/24 20:01 30 40 12/05/24 20:00 12/05/24 19:50 12/05/24 19:49 10 12/05/24 19:40 10 Laboratory Results Laboratory Results WBC 9.15 K/ul (4.8-10.8) 12/05/24 19:51 RBC 3.36 M/uL (4.20-5.40) L 12/05/24 19:51 Hgb 10.6 g/dl (12.0-16.0) L 12/05/24 19:51 POC Hgb 11.9 g/dl (12.0-16.0) L 12/05/24 19:58 Hct 35.4 % (37.0-47.0) L 12/05/24 19:51 POC Hct 35 % (37-47) L 12/05/24 19:58 MCV 105.4 fL (80.0-100.0) H 12/05/24 19:51 MCH 31.5 pg (25.0-34.0) 12/05/24 19:51 MCHC 29.9 g/dL (32.0-36.0) L 12/05/24 19:51 RDW Std Deviation 54.9 fL (36.4-46.3) H 12/05/24 19:51 RDW Coeff of Jared 14.2 % (11.5-14.5) 12/05/24 19:51 Plt Count 166 K/uL (130-400) 12/05/24 19:51 MPV 10.2 fL (9.4-12.4) 12/05/24 19:51 Immature Gran % (Auto) 0.3 % 12/05/24 19:51 Neut % (Auto) 73.8 % 12/05/24 19:51 Lymph % (Auto) 12.3 % 12/05/24 19:51 [place] % (Auto) 11.3 % 12/05/24 19:51 Eos % (Auto) 1.6 % 12/05/24 19:51 Baso % (Auto) 0.7 % 12/05/24 19:51 Neut # (Auto) 6.75 K/uL (1.40-6.50) H 12/05/24 19:51 Lymph # (Auto) 1.13 K/uL (1.20-3.40) L 12/05/24 19:51 [place] # (Auto) 1.03 K/uL (0.11-0.59) H 12/05/24 19:51 Eos # (Auto) 0.15 K/uL (0.00-0.50) 12/05/24 19:51 Baso # (Auto) 0.06 K/uL (0.00-0.20) 12/05/24 19:51 Immature Gran # (Auto) 0.03 K/uL (0.01-0.20) 12/05/24 19:51 VBG pH 7.34 (7.36-7.41) L 12/05/24 22:15 VBG pCO2 61 mmHg (38-50) H 12/05/24 22:15 VBG pO2 69 mmHg 12/05/24 22:15 VBG HCO3 33 mmol/L 12/05/24 22:15 VBG O2 Saturation 93.9 % 12/05/24 22:15 VBG Base Excess 5.2 mEq/L 12/05/24 22:15 POC Sodium 132 mmol/L (135-144) L 12/05/24 19:58 Sodium 132 mmol/L (136-145) L 12/05/24 19:51 POC Potassium 4.0 mmol/L (3.3-5.0) 12/05/24 19:58 Potassium 3.9 mmol/L (3.5-5.1) 12/05/24 19:51 POC Chloride 92 mmol/L (101-112) L 12/05/24 19:58 Chloride 92 mmol/L (98-107) L 12/05/24 19:51 Carbon Dioxide 33 mmol/L (21-32) H 12/05/24 19:51 POC Total CO2 31 mmol/L (24-31) 12/05/24 19:58 Anion Gap 7 (3-11) 12/05/24 19:51 POC Anion Gap 14.0 mmol/L (16-25) L 12/05/24 19:58 POC BUN 45 mg/dl (7-18) H 12/05/24 19:58 BUN 44 mg/dl (6-23) H 12/05/24 19:51 Creatinine 5.66 mg/dl (0.6-1.2) H* 12/05/24 19:51 POC Creatinine 5.8 mg/dl (0.6-1.3) H* 12/05/24 19:58 Est Cr Clr Drug Dosing 7.7 ml/min 12/05/24 19:51 eGFR 7.16 12/05/24 19:51 BUN/Creatinine Ratio 7.8 (10-20) L 12/05/24 19:51 Glucose 327 mg/dl (70-99(Fasting)) H* 12/05/24 19:51 POC Glucose 268 mg/dl (70-99) H 12/05/24 23:02 POC Glucose (other) 320 mg/dl (70-99) H 12/05/24 19:58 Calcium 8.5 mg/dl (8.6-10.3) L 12/05/24 19:51 POC Ioniz Calcium Ramana 1.09 mmol/l (1.12-1.32) L 12/05/24 19:58 Total Bilirubin 0.4 mg/dl (0.2-1.0) 12/05/24 19:51 AST 22 U/L (13-39) 12/05/24 19:51 ALT 15 U/L (7-52) 12/05/24 19:51 Alkaline Phosphatase 103 U/L (34-104) 12/05/24 19:51 Troponin I High Sens 30.4 pg/ml (0-14) H 12/05/24 21:51 Total Protein 7.3 gm/dl (6.0-8.3) 12/05/24 19:51 Albumin 3.4 gm/dl (3.4-5.0) 12/05/24 19:51 Globulin 3.9 gm/dl (2.5-4.0) 12/05/24 19:51 Albumin/Globulin Ratio 0.9 (0.9-2) 12/05/24 19:51 Lipase 28 U/L (11-82) 12/05/24 19:51 Adenovirus (PCR) Not Detected (NotDetected) 12/05/24 19:57 B. pertussis DNA (PCR) Not Detected (NotDetected) 12/05/24 19:57 B.parapertussis DNA PCR Not Detected (NotDetected) 12/05/24 19:57 C. pneumoniae DNA (PCR) Not Detected (NotDetected) 12/05/24 19:57 Coronavirus OC43 (PCR) Not Detected (NotDetected) 12/05/24 19:57 Coronavirus HKU1 (PCR) Not Detected (NotDetected) 12/05/24 19:57 Coronavirus 229E (PCR) Not Detected (NotDetected) 12/05/24 19:57 SARS-CoV-2 (PCR) Not Detected (NotDetected) 12/05/24 19:57 Coronavirus NL63 (PCR) Not Detected (NotDetected) 12/05/24 19:57 Human Metapneumovir PCR Not Detected (NotDetected) 12/05/24 19:57 Influenza Type A (PCR) Not Detected (NotDetected) 12/05/24 19:57 Influenza Type B (PCR) Not Detected (NotDetected) 12/05/24 19:57 M. pneumoniae (PCR) Not Detected (NotDetected) 12/05/24 19:57 Parainfluenza 1 (PCR) Not Detected (NotDetected) 12/05/24 19:57 Parainfluenza 2 (PCR) Not Detected (NotDetected) 12/05/24 19:57 Parainfluenza 3 (PCR) Not Detected (NotDetected) 12/05/24 19:57 Parainfluenza 4 (PCR) Not Detected (NotDetected) 12/05/24 19:57 RSV (PCR) Not Detected (NotDetected) 12/05/24 19:57 Entero/Rhino (PCR) Not Detected (NotDetected) 12/05/24 19:57 Impressions Chest X-Ray 12/05/24 19:38 Exam(s): XR CXR 1 VIEW EXAM: XR Chest, 1 View CLINICAL HISTORY: Reason for exam: Chest pain, nonspecific. TECHNIQUE: Frontal view of the chest. COMPARISON: Chest radiograph on 10/09/2024 FINDINGS: Hardware: None. Lungs/pleura: Prominent lung markings. No focal consolidation. No pleural effusion or pneumothorax. Heart/mediastinum: Mild enlargement of the cardiac silhouette. Atherosclerotic changes in the aorta. Mitral annular calcifications. Soft tissues: Unremarkable. Bones: No acute fracture. Upper abdomen: Normal. IMPRESSION: Prominent lung markings may be secondary to technique versus pulmonary vasculature congestion. Electronically signed by: Nestor Lopez M.D. 12/06/24 01:44 AM PG Care Time/CCT Total # of Minutes Spent Total Time Spent with Patient: Total time spent is greater than 50% in coordination of care (as documented) at patient's floor/unit and/or counseling patient: Coding Level of Care Code 35594 INT INP/OBS CARE 3/75MIN Diagnoses Acute hypoxic respiratory failure J96.01 Shortness of breath R06.02 Weakness R53.1 Primary hypertension I10 Hypertension type: primary hypertension Dyslipidemia E78.5 Type 2 diabetes mellitus with diabetic neuropathy E11.40 (4) Hypertension Hypertension type: primary hypertension Qualified Code(s): I10 - Essential (primary) hypertension
[2024-12-05] MEDS ORDERED: DEXTROSE 50% 50 ML SYRINGE IV PRN (22:45)
[2024-12-05] MEDS ORDERED: GLUCOSE 40% GEL 15 GM TUBE PO PRN (22:45)
[2024-12-05] MEDS ORDERED: ONDANSETRON INJ 2 MG/ML 2 ML VIAL IV PRN (22:45)
[2024-12-05] MEDS ORDERED: ALBUTEROL 0.5% NEB SOLN 2.5 MG/0.5 ML VIAL NEB PRN (22:45)
[2024-12-05] MEDS ORDERED: GLUCOSE 10 TAB/TUBE PO PRN (22:45)
[2024-12-05] MEDS ORDERED: GLUCAGON FOR INJ 1 MG VIAL SQ PRN (22:45)
[2024-12-05] MEDS ORDERED: CARBOHYDRATES FOR HYPOGLYCEMIA PO PRN (22:45)
[2024-12-05] MEDS ORDERED: LACTULOSE SYRUP 20 GM/30 ML UDC PO PRN (22:52)
[2024-12-05] MEDS: LANTUS PER UNIT CHARGE SQ SCH (23:10)
[2024-12-05] MEDS: INSULIN ASPART PER UNIT CHARGE SC SCH (23:10)
[2024-12-05] MEDS: ALBUT/IPRATROP 3MG/0.5MG NEB 3 ML VIAL INH SCH (23:35)
--- NOTE | 2024-12-06 01:45 | XRay Report ---
Exam(s): XR CXR 1 VIEW EXAM: XR Chest, 1 View CLINICAL HISTORY: Reason for exam: Chest pain, nonspecific. TECHNIQUE: Frontal view of the chest. COMPARISON: Chest radiograph on 10/09/2024 FINDINGS: Hardware: None. Lungs/pleura: Prominent lung markings. No focal consolidation. No pleural effusion or pneumothorax. Heart/mediastinum: Mild enlargement of the cardiac silhouette. Atherosclerotic changes in the aorta. Mitral annular calcifications. Soft tissues: Unremarkable. Bones: No acute fracture. Upper abdomen: Normal. IMPRESSION: Prominent lung markings may be secondary to technique versus pulmonary vasculature congestion. Electronically signed by: Nestor Lopez M.D. 12/06/24 01:44 AM
[2024-12-06 04:51] LABS: Hematocrit (blood only) 33.3 % (37.0-47.0); Hemoglobin 10.2 g/dl (12.0-16.0); Mean Corpuscular Hemoglobin 32.3 pg (25.0-34.0); Mean Corpuscular Volume 105.4 fL (80.0-100.0); Platelet Count 157 K/uL (130-400); RDW Standard Deviation 55.0 fL (36.4-46.3); Red Blood Count 3.16 M/uL (4.20-5.40); White Blood Count 8.35 K/ul (4.8-10.8)
[2024-12-06 05:20] LABS: Anion Gap 8.0 (3-11); Blood Urea Nitrogen 49.0 mg/dl (6-23); Calcium 8.3 mg/dl (8.6-10.3); Carbon Dioxide 31.0 mmol/L (21-32); Chloride 94.0 mmol/L (98-107); Creatinine Clr Calc Pharmacy 6.9 ml/min; Glucose 132.0 mg/dl (70-99(Fasting)); Potassium 3.6 mmol/L (3.5-5.1); Sodium 133.0 mmol/L (136-145)
[2024-12-06 05:22] LABS: Thyroid Stimulating Hormone 2.873 uIu/ml (0.300-4.500)
[2024-12-06] MEDS: LEVOTHYROXINE SODIUM 100 MCG TABLET PO SCH (06:15)
[2024-12-06] MEDS: CALCIUM ACETATE 667 MG CAP/TAB PO SCH (08:21)
[2024-12-06] MEDS: SODIUM ZIRCONIUM CYCLOSILICATE 10 GM PACKET PO SCH (08:22)
[2024-12-06] MEDS: GABAPENTIN 300 MG CAP PO SCH (09:03)
[2024-12-06] MEDS: ACETAMINOPHEN 325 MG TAB PO PRN (11:54)
[2024-12-06] MEDS ORDERED: SODIUM CHLORIDE 0.9% 1,000 ML IV PRN (11:57)
--- NOTE | 2024-12-06 12:23 | Nephrology Consultation ---
Date of Consultation December 06, 2024 Assessment & Plan (1) ESRD on dialysis: * Patient was dialyzed yesterday but had high IDWG and left HD 1kg above EDW * 12/05/24 CXR films reviewed. Mild pulmonary congestion * Will provide 3 hours HD today and attempt 2 L UF. Orders have been placed in EMR and HD RN notified * Will provide short HD treatment in am to resume TTS schedule * Monitor BMP * HD diet * Nephrocaps daily * Protect dialysis access (2) Acute hypoxic respiratory failure: * Likely mild CHF related to large IDWG * Will provide HD as outlined above * Troponin stable at 30 x2, ECG without ischemic change * Consider echocardiogram (01/21 study w/ nrml LVEF) * Consider LE doppler, CTA to assess for PE History of Present Illness Reason for Consultation: ESKD-D Attending Physician: Angela Garcia MD History of Present Illness Mrs. Patrick is a 79 year old white female who is seen at the request of the [facility] hospitalist service to provide inpatient HD and assist with medical management. Information for the HPI is obtained from direct patient interview and review of the EMR. 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 She has been on HD at [facility] since 2016 (TTS 3.5 hr 2K 2Ca 1Mg HCO3 31 Na 137 Fx CorAL 80 Qb350/QdA1.5 EDW 93.5 kg). Her medical history is significant for chronic hyperkalemia requiring daily lokelma therapy, AODM, HTN, ASCVD, hypothyroidism, GERD, depression, RLS, TASH and large hiatal hernia with chronic abdominal/chest discomfort. Mrs. Patrick was brought to the EMD yesterday evening following HD for evaluation of dyspnea and weakness. She reports no complications with her dialysis yesterday. Review of [facility] dialysis records shows that Mrs. Patrick had a 3kg IDWG. She left dialysis 1kg above her EDW. Upon returning home Mrs. Patrick experienced MUNOZ. Her reports that she is typically on O2 at 3L/min NC. Despite this her SaO2 was in the mid 80's. Mrs. Patrick was brought to [facility] where patient was found to be hemodynamically stable. She was placed on high flow NC. CXR was revealed only mild pulmonary congestion. WBC 9.1, respiratory biofire was negative, troponin stable at 30 x2, ECG - NSR w/ 1st degree AVB. Mrs. Patrick is anuric. Overnight her breathing improved and O2 has been weaned to 3L/min NC. Allergies Allergy/AdvReac Type Severity Reaction Status Date / Time lisinopril AdvReac Intermediate cough Verified 12/05/24 20:44 Home Medications Medication Instructions Recorded Confirmed Type calcium acetate 667 mg tablet 1,334 mg PO TIDWMEAL 12/17/20 12/05/24 History ondansetron 8 mg disintegrating 8 mg PO Q8H PRN Nausea #90 tabs 07/31/22 12/05/24 Rx tablet lactulose 10 gram/15 mL oral 15 ml PO DAILY PRN Constipation 08/13/23 12/05/24 Rx solution #1,350 mL hydralazine 25 mg tablet 25 mg PO TID 02/21/24 12/05/24 History sodium zirconium cyclosilicate 10 10 g PO DAILY #30 ea 02/23/24 12/05/24 Rx gram oral powder packet cyanocobalamin (vitamin B-12) 500 500 mcg PO QAM #30 tabs 04/12/24 12/05/24 Rx mcg tablet carvedilol 6.25 mg tablet 6.25 mg PO BID 06/28/24 12/05/24 History cholecalciferol (vitamin D3) 50 50 mcg PO QAM 06/28/24 12/05/24 History mcg (2,000 unit) capsule levothyroxine 100 mcg tablet 100 mcg PO QAM 06/28/24 12/05/24 History olanzapine 10 mg tablet 5 mg PO BID 06/28/24 12/05/24 History venlafaxine 75 mg capsule,extended 75 mg PO HS #90 caps 07/11/24 12/05/24 Rx release 24 hr ipratropium 0.5 mg-albuterol 3 mg 3 ml inhalation Q8H #90 mL 09/28/24 12/05/24 Rx (2.5 mg base)/3 mL nebulization soln gabapentin 300 mg capsule 300 mg PO 3XWK #36 caps 10/02/24 12/05/24 Rx pantoprazole 40 mg tablet,delayed 40 mg PO BID 90 days #180 tabs 10/02/24 12/05/24 Rx release Oxygen Home 10/09/24 11/13/24 History blood sugar diagnostic (OneTouch 10/09/24 11/13/24 History Verio test strips) blood-glucose meter 10/09/24 11/13/24 History lancets 33 gauge 10/09/24 11/13/24 History calcium carbonate 500 mg PO DAILY 12/05/24 12/05/24 History cranberry 500 mg capsule 500 mg PO DAILY 12/05/24 12/05/24 History magnesium 250 mg tablet 250 mg PO DAILY 12/05/24 12/05/24 History vit B complx, C-iron 8 mg-folic 1 tab PO QDL 12/05/24 12/05/24 History acid 800 mcg-D3 1,000 unit-zinc tablet (ProRenal) Patient History Medical History Acute hypotension Acute respiratory acidosis ESRD on dialysis COPD, severe Hypertension Depression with anxiety Hypothyroidism Diabetes mellitus Acute and chronic respiratory failure with hypoxia Acute and chronic respiratory failure with hypercapnia Weakness generalized Cellulitis of right leg Morbid obesity with BMI of 40.0-44.9, adult Diabetic eyes Hallucinations Fatigue Abnormal EKG Acute electrocardiogram changes Transaminitis Elevated troponin Myoclonus Acute hyperkalemia Hyperkalemia, diminished renal excretion Laceration of left lower extremity Hernia, hiatal GERD without esophagitis Macular puckering, bilateral Panniculitis Tubular adenoma of colon Hypertension History of thrombophlebitis Arthritis Surgical History History of tonsillectomy S/P repair of paraesophageal hernia History of nasal septoplasty History of cataract surgery History of bladder surgery S/P arteriovenous (AV) fistula creation S/P rotator cuff repair S/P hysterectomy H/O: hysterectomy Family History Mother Leukemia Cerebral aneurysm Hypertension Anxiety Diabetes Cancer Heart disease Grandmother Hypertension Father Osteoarthritis COPD (chronic obstructive pulmonary disease) Diabetes Hearing loss Sister Diabetes Myocardial infarction COPD (chronic obstructive pulmonary disease) Hypertension Brother Myocardial infarction Diabetes Cancer Stomach cancer Other No family history of bleeding disorder Denies family history of Ovarian cancer Prostate cancer Breast cancer Colorectal cancer Stroke Asthma Social History Smoking Status: Never smoker Second Hand Exposure: No; Do You Dip or Chew Tobacco: No; Hx Alcohol Use: No Hx Substance Use: No Preferred Language: Wolof Communication Ability: Effective Visual Impairment: No Limitations Hearing Ability: Normal Tech Brazer Tester Required: Yes Beliefs That Will Affect Care: None marital status: Current Living Situation: Spouse Current Living Situation Comment: lives with current occupational status: retired How many Children do You have: 1 Other Information That Helps Us Care for You: No Feels Safe at Home: Yes Safety Concerns: Feels Safe At This Time Childhood Exposure to Second-Hand Smoke: No Dental Care, Regularly: No Physical Activity Frequency: 1-2 Times per Week Seatbelt Use: always Sunscreen Use: No Assistive Devices: Walker and Wheelchair Review of Systems Constitutional: no fever Eyes: no problem reported Ear, Nose, Mouth, Throat: no problem reported Respiratory: + dyspnea on exertion; no cough, no hemo ptysis and no pain on inspiration Cardiovascular: no chest pain Gastrointestinal: no abdominal pain, no nausea, no vomiting and no diarrhea/loose stools Integumentary: no rash Neurologic: no problem reported Physical Exam Constitutional: not in distress Eyes: PERRL, conjunctivae normal, anicteric sclerae ENMT: external ear and nose normal, oropharynx normal Neck: trachea midline, no thyromegaly Respiratory: normal respiratory effort Auscultation: + rales Cardiovascular: RRR, no murmur, no edema Extremities: + AV fistula (+ bruit) Gastrointestinal (Abdomen): normal bowel sounds, soft, nontender, no hepatosplenomegaly Musculoskeletal: Extremities: no cyanosis and no clubbing Skin: no rashes, warm and dry Neurologic: no focal motor deficits Results & Data Vital Signs (Past 12 Hours) Vital Signs Pulse Pulse Resp BP Pulse Ox O2 Del Method O2 Flow Rate 12/06/24 11:00 59 L 14 114/70 98 Nasal Cannula 12/06/24 10:00 61 20 144/67 H 98 Nasal Cannula 4 12/06/24 08:46 Room Air 4 12/06/24 08:46 99 H 20 149/65 H 98 Nasal Cannula 4 12/06/24 07:10 60 12/06/24 06:58 62 18 97 Nasal Cannula 2 12/06/24 06:17 66 16 131/61 97 Nasal Cannula 4 12/06/24 03:33 63 16 119/59 L 96 Nasal Cannula 4 12/06/24 03:22 98 Nasal Cannula 3 Laboratory Results Laboratory Results WBC 8.35 K/ul (4.8-10.8) 12/06/24 04:31 RBC 3.16 M/uL (4.20-5.40) L 12/06/24 04:31 Hgb 10.2 g/dl (12.0-16.0) L 12/06/24 04:31 POC Hgb 11.9 g/dl (12.0-16.0) L 12/05/24 19:58 Hct 33.3 % (37.0-47.0) L 12/06/24 04:31 POC Hct 35 % (37-47) L 12/05/24 19:58 MCV 105.4 fL (80.0-100.0) H 12/06/24 04:31 MCH 32.3 pg (25.0-34.0) 12/06/24 04:31 MCHC 30.6 g/dL (32.0-36.0) L 12/06/24 04:31 RDW Std Deviation 55.0 fL (36.4-46.3) H 12/06/24 04:31 RDW Coeff of Jared 14.1 % (11.5-14.5) 12/06/24 04:31 Plt Count 157 K/uL (130-400) 12/06/24 04:31 MPV 10.0 fL (9.4-12.4) 12/06/24 04:31 Immature Gran % (Auto) 0.3 % 12/05/24 19:51 Neut % (Auto) 73.8 % 12/05/24 19:51 Lymph % (Auto) 12.3 % 12/05/24 19:51 [place] % (Auto) 11.3 % 12/05/24 19:51 Eos % (Auto) 1.6 % 12/05/24 19:51 Baso % (Auto) 0.7 % 12/05/24 19:51 Neut # (Auto) 6.75 K/uL (1.40-6.50) H 12/05/24 19:51 Lymph # (Auto) 1.13 K/uL (1.20-3.40) L 12/05/24 19:51 [place] # (Auto) 1.03 K/uL (0.11-0.59) H 12/05/24 19:51 Eos # (Auto) 0.15 K/uL (0.00-0.50) 12/05/24 19:51 Baso # (Auto) 0.06 K/uL (0.00-0.20) 12/05/24 19:51 Immature Gran # (Auto) 0.03 K/uL (0.01-0.20) 12/05/24 19:51 VBG pH 7.34 (7.36-7.41) L 12/05/24 22:15 VBG pCO2 61 mmHg (38-50) H 12/05/24 22:15 VBG pO2 69 mmHg 12/05/24 22:15 VBG HCO3 33 mmol/L 12/05/24 22:15 VBG O2 Saturation 93.9 % 12/05/24 22:15 VBG Base Excess 5.2 mEq/L 12/05/24 22:15 POC Sodium 132 mmol/L (135-144) L 12/05/24 19:58 Sodium 133 mmol/L (136-145) L 12/06/24 04:31 POC Potassium 4.0 mmol/L (3.3-5.0) 12/05/24 19:58 Potassium 3.6 mmol/L (3.5-5.1) 12/06/24 04:31 POC Chloride 92 mmol/L (101-112) L 12/05/24 19:58 Chloride 94 mmol/L (98-107) L 12/06/24 04:31 Carbon Dioxide 31 mmol/L (21-32) 12/06/24 04:31 POC Total CO2 31 mmol/L (24-31) 12/05/24 19:58 Anion Gap 8 (3-11) 12/06/24 04:31 POC Anion Gap 14.0 mmol/L (16-25) L 12/05/24 19:58 POC BUN 45 mg/dl (7-18) H 12/05/24 19:58 BUN 49 mg/dl (6-23) H 12/06/24 04:31 Creatinine 6.29 mg/dl (0.6-1.2) H* D 12/06/24 04:31 POC Creatinine 5.8 mg/dl (0.6-1.3) H* 12/05/24 19:58 Est Cr Clr Drug Dosing 6.9 ml/min 12/06/24 04:31 eGFR 6.31 12/06/24 04:31 BUN/Creatinine Ratio 7.8 (10-20) L 12/06/24 04:31 Glucose 132 mg/dl (70-99(Fasting)) H 12/06/24 04:31 POC Glucose 151 mg/dl (70-99) H 12/06/24 11:35 POC Glucose (other) 320 mg/dl (70-99) H 12/05/24 19:58 Calcium 8.3 mg/dl (8.6-10.3) L 12/06/24 04:31 POC Ioniz Calcium Ramana 1.09 mmol/l (1.12-1.32) L 12/05/24 19:58 Total Bilirubin 0.4 mg/dl (0.2-1.0) 12/05/24 19:51 AST 22 U/L (13-39) 12/05/24 19:51 ALT 15 U/L (7-52) 12/05/24 19:51 Alkaline Phosphatase 103 U/L (34-104) 12/05/24 19:51 Troponin I High Sens 30.4 pg/ml (0-14) H 12/05/24 21:51 Total Protein 7.3 gm/dl (6.0-8.3) 12/05/24 19:51 Albumin 3.4 gm/dl (3.4-5.0) 12/05/24 19:51 Globulin 3.9 gm/dl (2.5-4.0) 12/05/24 19:51 Albumin/Globulin Ratio 0.9 (0.9-2) 12/05/24 19:51 Lipase 28 U/L (11-82) 12/05/24 19:51 TSH 2.873 uIu/ml (0.300-4.500) 12/06/24 04:31 Adenovirus (PCR) Not Detected (NotDetected) 12/05/24 19:57 B. pertussis DNA (PCR) Not Detected (NotDetected) 12/05/24 19:57 B.parapertussis DNA PCR Not Detected (NotDetected) 12/05/24 19:57 C. pneumoniae DNA (PCR) Not Detected (NotDetected) 12/05/24 19:57 Coronavirus OC43 (PCR) Not Detected (NotDetected) 12/05/24 19:57 Coronavirus HKU1 (PCR) Not Detected (NotDetected) 12/05/24 19:57 Coronavirus 229E (PCR) Not Detected (NotDetected) 12/05/24 19:57 SARS-CoV-2 (PCR) Not Detected (NotDetected) 12/05/24 19:57 Coronavirus NL63 (PCR) Not Detected (NotDetected) 12/05/24 19:57 Human Metapneumovir PCR Not Detected (NotDetected) 12/05/24 19:57 Influenza Type A (PCR) Not Detected (NotDetected) 12/05/24 19:57 Influenza Type B (PCR) Not Detected (NotDetected) 12/05/24 19:57 M. pneumoniae (PCR) Not Detected (NotDetected) 12/05/24 19:57 Parainfluenza 1 (PCR) Not Detected (NotDetected) 12/05/24 19:57 Parainfluenza 2 (PCR) Not Detected (NotDetected) 12/05/24 19:57 Parainfluenza 3 (PCR) Not Detected (NotDetected) 12/05/24 19:57 Parainfluenza 4 (PCR) Not Detected (NotDetected) 12/05/24 19:57 RSV (PCR) Not Detected (NotDetected) 12/05/24 19:57 Entero/Rhino (PCR) Not Detected (NotDetected) 12/05/24 19:57 Impressions Chest X-Ray 12/05/24 19:38 Exam(s): XR CXR 1 VIEW EXAM: XR Chest, 1 View CLINICAL HISTORY: Reason for exam: Chest pain, nonspecific. TECHNIQUE: Frontal view of the chest. COMPARISON: Chest radiograph on 10/09/2024 FINDINGS: Hardware: None. Lungs/pleura: Prominent lung markings. No focal consolidation. No pleural effusion or pneumothorax. Heart/mediastinum: Mild enlargement of the cardiac silhouette. Atherosclerotic changes in the aorta. Mitral annular calcifications. Soft tissues: Unremarkable. Bones: No acute fracture. Upper abdomen: Normal. IMPRESSION: Prominent lung markings may be secondary to technique versus pulmonary vasculature congestion. Electronically signed by: Nestor Lopez M.D. 12/06/24 01:44 AM PG Care Time/CCT Total # of Minutes Spent Total Time Spent with Patient: Total time spent is greater than 50% in coordination of care (as documented) at patient's floor/unit and/or counseling patient: Coding Level of Care Code 89537 IN/OBS CONSULT LVL 5,80M Diagnoses ESRD on dialysis N18.6; Z99.2 Acute hypoxic respiratory failure J96.01
--- NOTE | 2024-12-06 16:50 | Dialysis Progress Note ---
Date of Service December 06, 2024 Assessment & Plan (1) End-stage renal disease on hemodialysis: Plan: * Hemodynamically stable while on HD * AVF functioning well * No complications * ~ 2 L UF obtained * No change to current prescription * Plan next HD for am to resume TTS schedule Admission and Anticipated Discharge Date Admission Date: December 05, 2024 Subjective Patient seen while on HD today. Breathing improved following UF Review of Systems Constitutional: no fever Eyes: no problem reported Ear, Nose, Mouth, Throat: no problem reported Respiratory: + dyspnea on exertion; no cough, no hemo ptysis and no pain on inspiration Cardiovascular: no chest pain Gastrointestinal: no abdominal pain, no nausea, no vomiting and no diarrhea/loose stools Integumentary: no rash Neurologic: no problem reported Physical Exam Constitutional: not in distress Eyes: PERRL, conjunctivae normal, anicteric sclerae ENMT: external ear and nose normal, oropharynx normal Neck: trachea midline, no thyromegaly Respiratory: normal respiratory effort Auscultation: + rales Cardiovascular: RRR, no murmur, no edema Extremities: + AV fistula (+ bruit) Gastrointestinal (Abdomen): normal bowel sounds, soft, nontender, no hepatosplenomegaly Musculoskeletal: Extremities: no cyanosis and no clubbing Skin: no rashes, warm and dry Neurologic: no focal motor deficits Results & Data Vital Signs (Past 12 Hours) Vital Signs Temp Pulse Pulse Pulse Resp BP BP 12/06/24 16:00 59 L 96/48 L 12/06/24 15:00 55 L 96/50 L 12/06/24 14:30 57 L 112/55 L 12/06/24 14:00 56 L 131/66 12/06/24 13:30 58 L 118/57 L 12/06/24 13:15 36.9 C 58 L 12/06/24 12:00 58 L 15 148/91 H 12/06/24 11:00 59 L 14 114/70 12/06/24 10:00 61 20 144/67 H 12/06/24 08:46 12/06/24 08:46 99 H 20 149/65 H 12/06/24 07:10 60 12/06/24 06:58 62 18 12/06/24 06:17 66 16 131/61 Pulse Ox O2 Del Method O2 Flow Rate 12/06/24 16:00 12/06/24 15:00 12/06/24 14:30 12/06/24 14:00 12/06/24 13:30 12/06/24 13:15 12/06/24 12:00 99 Nasal Cannula 3 12/06/24 11:00 98 Nasal Cannula 12/06/24 10:00 98 Nasal Cannula 4 12/06/24 08:46 Room Air 4 12/06/24 08:46 98 Nasal Cannula 4 12/06/24 07:10 12/06/24 06:58 97 Nasal Cannula 2 12/06/24 06:17 97 Nasal Cannula 4 MNPG Procedure Codes (Charges) Renal/Urologic Renal/Urologic: 77485 Hemodialysis, One Evaluation Coding Level of Care Code None Diagnoses End-stage renal disease on hemodialysis N18.6; Z99.2 CPT Codes Renal/Urologic - Renal/Urologic: 26990 Hemodialysis, One Evaluation ([id number])
--- NOTE | 2024-12-06 17:43 | Electrocardiogram Report ---
Test Reason : Blood Pressure : */* mmHG Vent. Rate : 64 BPM Atrial Rate : 64 BPM P-R Int : 246 ms QRS Dur : 104 ms QT Int : 422 ms P-R-T Axes : 93 -57 14 degrees QTcB Int : 435 ms Sinus rhythm with 1st degree A-V block Left axis deviation Poor R wave progression, consider anterior DC vs. lead placement vs. LVH Abnormal ECG When compared with ECG of 09-Oct-2024 18:41, Premature ventricular complexes are no longer Present Confirmed by Davon William ([id number]) on 12/06/2024 5:43:08 PM Referred By: REFERRED SELF Confirmed By: Davon William
--- NOTE | 2024-12-06 18:25 | Hospitalist Progress Note ---
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 Patient initially managed on HFNC in the ER, now on NC at 4L/min with adequate oxygenation. Appears to be volume overloaded and was 1 kg above dry weight after HD yesterday, thus worsened hypoxia likely caused by pulmonary edema. Very similar presentation last admission resolved with serial dialysis. She is also hypercarbic but not clear whether worse than baseline. Consider other etiologies of hypoxia like PE or worsened heart failure. #Acute on chronic hypoxic and hypercarbic respiratory failure #Volume overload - above her dry weight for HD #Mixed obstructive and restrictive lung disease -consulted ice skater Dr. Stephenson - ultrafiltrated today and resume usual dialysis scheduled TThSa in AM -Continue Duonebs q 4 hours -Albuterol q 2 hours PRN -BiPAP qHS -if persisting dyspnea/hypoxia further workup #ESRD on HD -consulted ice skater for dialysis -Continue PhosLo -Continue daily sodium zirconium -mild hyponatremia is related to ESRD #Hypertension -Continue Carvedilol 6.25mg po BID -Continue Hydralazine 25mg po TID #Diabetes - not on any medications for DM management currently. Elevated blood sugar presently at 327. Last A1C=7.4 on 09/25/24 -Lantus 7u BID -ISS -Continue Gabapentin for neuropathy #Hypothyroidism - TSH last normal at 2.623 on 09/25/24 -Continue Synthroid #GERD -Continue Protonix 40mg po BID #Mental health -Continue Venlafaxine -Continue Zyprexa Weakness - probably exacerbated by respiratory failure. PT/OT evals DVT ppx - SQ heparin Admission and Anticipated Discharge Date Admission Date: December 05, 2024 Subjective seen during HD midday dyspnea and hypoxia improving no CP and no personal hx of VTE she says she wears her bipap every night Physical Exam 2 Physical Exam: Last 24h vitals reviewed GEN: no acute distress, sitting in bed getting dialysis HEENT: pupils equal, sclerae anicteric, moist MM RESP: normal WOB, CTAB in upper lobes but some crackles in lower lobes, difficult exam since on HD cant sit upright CV: reg no mrg neck veins not visible ABD: soft/nt/nd +BT : no marsh SKIN: warm and dry, no generalized rashes EXT: 2+ bilateral LE edema - this is her baseline NEURO: Ox person, place, and situation, a little sleepy / falls asleep easily. Face symmetric, speech normal, moves 4 ext spontaneously and equally Results & Data Results & Data Vital Signs (Past 12 Hours) Vital Signs Temp Pulse Pulse Pulse Resp BP BP 12/06/24 16:50 12/06/24 16:50 36.6 C 59 L 18 130/61 12/06/24 16:30 36.8 C 58 L 110/50 L 12/06/24 16:00 59 L 96/48 L 12/06/24 15:00 55 L 96/50 L 12/06/24 14:30 57 L 112/55 L 12/06/24 14:00 56 L 131/66 12/06/24 13:30 58 L 118/57 L 12/06/24 13:15 36.9 C 58 L 12/06/24 12:00 58 L 15 12/06/24 11:00 59 L 14 12/06/24 10:00 61 20 12/06/24 08:46 12/06/24 08:46 99 H 20 12/06/24 07:10 60 12/06/24 06:58 62 18 12/06/24 06:17 66 16 BP Pulse Ox O2 Del Method O2 Flow Rate 12/06/24 16:50 Nasal Cannula 3 12/06/24 16:50 99 Nasal Cannula 3 12/06/24 16:30 12/06/24 16:00 12/06/24 15:00 12/06/24 14:30 12/06/24 14:00 12/06/24 13:30 12/06/24 13:15 12/06/24 12:00 148/91 H 99 Nasal Cannula 3 12/06/24 11:00 114/70 98 Nasal Cannula 12/06/24 10:00 144/67 H 98 Nasal Cannula 4 12/06/24 08:46 Room Air 4 12/06/24 08:46 149/65 H 98 Nasal Cannula 4 12/06/24 07:10 12/06/24 06:58 97 Nasal Cannula 2 12/06/24 06:17 131/61 97 Nasal Cannula 4 Laboratory Results 12/06/24 04:31 12/06/24 04:31 PG Care Time/CCT Total # of Minutes Spent Total Time Spent with Patient: Total time spent is greater than 50% in coordination of care (as documented) at patient's floor/unit and/or counseling patient: Coding Level of Care Code 37789 SUB INP/OBS CARE 2/35MIN Diagnoses Acute respiratory failure with hypoxia and hypercarbia J96.01; J96.02 End-stage renal disease on hemodialysis N18.6; Z99.2 Mixed restrictive and obstructive lung disease J43.9; J98.4 Type 2 diabetes mellitus with diabetic neuropathy E11.40
[2024-12-06] MEDS: HEPARIN SOD 5,000 UNIT/0.5 ML VIAL SQ SCH (20:57)
[2024-12-06] MEDS: VENLAFAXINE HCL XR 75 MG CAPXR PO SCH (21:27)
[2024-12-07] MEDS ORDERED: SODIUM CHLORIDE 0.9% 1,000 ML IV PRN (07:00)
[2024-12-07] MEDS: NEPHROCAPS PO SCH (08:30)
--- NOTE | 2024-12-07 08:51 | Nephrology Progress Note ---
Date of Service December 07, 2024 Assessment & Plan (1) End-stage renal disease on hemodialysis: Plan: * Patient was dialyzed yesterday for 1.5 L UF. Now symptomatically improved * 12/07/24 CXR films reviewed. Pulmonary congestion appears improved * Will provide 3 hours HD today and attempt 2 L UF. Orders have been placed in EMR and HD RN notified * Awaiting am labs (2) Acute and chronic respiratory failure with hypoxia: Plan: * Clinically improved following UF on HD * Likely mild CHF related to large IDWG * Will provide HD again today as outlined above * Troponin stable at 30 x2, ECG without ischemic change Admission and Anticipated Discharge Date Admission Date: December 05, 2024 Subjective Mrs. Patrick was evaluated in her hospital room this morning. Her Mahad was present at bedside. Mrs. Patrick was dialyzed for 1.5 L UF yesterday. Her breathing is subjectively improved and she is now back down to baseline O2 at 3 L NC. She is agreeable to HD today in order to resume her usual TTS schedule Review of Systems Constitutional: no fever Eyes: no problem reported Ear, Nose, Mouth, Throat: no problem reported Respiratory: no dyspnea Cardiovascular: no chest pain Gastrointestinal: no abdominal pain, no nausea, no vomiting and no diarrhea/loose stools Integumentary: no rash Neurologic: no problem reported Physical Exam Constitutional: not in distress Eyes: PERRL, conjunctivae normal, anicteric sclerae ENMT: external ear and nose normal, oropharynx normal Neck: trachea midline, no thyromegaly Respiratory: normal respiratory effort Auscultation: lungs clear to auscultation bilaterally Cardiovascular: RRR, no murmur, no edema Extremities: + AV fistula (+ bruit) Gastrointestinal (Abdomen): normal bowel sounds, soft, nontender, no he patosplenomegaly Musculoskeletal: Extremities: no cyanosis and no clubbing Skin: no rashes, warm and dry Neurologic: no focal motor deficits Results & Data Vital Signs (Past 12 Hours) Vital Signs Temp Pulse Pulse Pulse Resp BP Pulse Ox 12/07/24 07:50 36.4 C L 61 12 153/82 H 100 12/07/24 07:37 61 18 100 12/07/24 06:45 58 L 12/07/24 04:00 36.8 C 56 L 18 114/70 97 12/06/24 23:21 36.9 C 66 18 133/61 96 12/06/24 23:01 12/06/24 22:34 67 18 97 12/06/24 21:55 67 O2 Del Method O2 Flow Rate 12/07/24 07:50 Room Air 12/07/24 07:37 Nasal Cannula 2 12/07/24 06:45 12/07/24 04:00 Nasal Cannula 2 12/06/24 23:21 Nasal Cannula 2 12/06/24 23:01 Nasal Cannula 3 12/06/24 22:34 Nasal Cannula 2 12/06/24 21:55 Laboratory Results Laboratory Results - last 24 hr 12/06/24 12/06/24 12/06/24 11:35 16:59 20:16 POC Glucose 151 H 104 H 176 H 12/07/24 07:57 POC Glucose 165 H PG Care Time/CCT Total # of Minutes Spent Total Time Spent with Patient: Total time spent is greater than 50% in coordination of care (as documented) at patient's floor/unit and/or counseling patient: Coding Level of Care Code 36444 SUB INP/OBS CARE 3/50MIN Diagnoses End-stage renal disease on hemodialysis N18.6; Z99.2 Acute and chronic respiratory failure with hypoxia J96.21
--- NOTE | 2024-12-07 09:52 | XRay Report ---
XR chest 1V portable HISTORY: 79 years-old Female CHF acute shortness of breath COMPARISON: 12/05/2024 TECHNIQUE: AP view of the chest FINDINGS: Cardiac silhouette is enlarged. Atherosclerosis of the aorta with mitral annular calcifications. No p neumothorax, pleural effusion or overt pulmonary edema. Mild chronic interstitial coarsening. Eventra tion of the right hemidiaphragm. Upper abdominal surgical clips. IMPRESSION: Cardiomegaly without pulmonary edema. ACT 112: Negative or not required by law. The above report was generated using voice recognition software. It may contain grammatical, syntax o r spelling errors. Electronically signed by: Josh Oro M.D. 12/07/2024 9:50 AM
[2024-12-07] MEDS: HEPARIN SOD (PORCINE) 1000 UNIT/ML IV ONE (09:58)
[2024-12-07 10:03] LABS: Hematocrit (blood only) 34.9 % (37.0-47.0); Hemoglobin 10.7 g/dl (12.0-16.0); Mean Corpuscular Hemoglobin 32.1 pg (25.0-34.0); Mean Corpuscular Volume 104.8 fL (80.0-100.0); Platelet Count 154 K/uL (130-400); RDW Standard Deviation 54.4 fL (36.4-46.3); Red Blood Count 3.33 M/uL (4.20-5.40); White Blood Count 5.95 K/ul (4.8-10.8)
[2024-12-07 10:26] LABS: Anion Gap 7.0 (3-11); Blood Urea Nitrogen 35.0 mg/dl (6-23); Calcium 8.5 mg/dl (8.6-10.3); Carbon Dioxide 28.0 mmol/L (21-32); Chloride 97.0 mmol/L (98-107); Creatinine Clr Calc Pharmacy 10.1 ml/min; Glucose 209.0 mg/dl (70-99(Fasting)); Potassium 3.9 mmol/L (3.5-5.1); Sodium 132.0 mmol/L (136-145)
[2024-12-07] MEDS: HEPARIN SOD (PORCINE) 1000 UNIT/ML IV SCH (10:37)
--- NOTE | 2024-12-07 11:24 | Discharge Summary ---
Discharge Summary Date of Service December 07, 2024 Principal Dx & Hospital Course #1 = Principal Diagnosis (1) Acute respiratory failure with hypoxia and hypercarbia: (2) End-stage renal disease on hemodialysis: (3) Mixed restrictive and obstructive lung disease: (4) Type 2 diabetes mellitus with diabetic neuropathy: Plan 79yo female with ESRD on HD, HTN, DM, GERD presenting with generalized weakness, shortness of breath and acute hypoxic respiratory failure. Patient initially managed on HFNC in the ER Volume overloaded on exam and was 1 kg above dry weight after HD the day prior to admission (run was cut short because of cramping), thus worsened hypoxia likely caused by pulmonary edema. Very similar presentation last admission (missed HD due to power outage) resolved with serial dialysis. She is also hypercarbic but not clear whether worse than baseline. Considered other etiologies of hypoxia like PE or worsened heart failure. #Acute on chronic hypoxic and hypercarbic respiratory failure #Acute on chronic HFpEF, Volume overload - above her dry weight for HD #Mixed obstructive and restrictive lung disease -consulted audit machine operator Dr. Stephenson - ultrafiltrated 12/06, dialysis 12/07, resume usual dialysis scheduled TThSa in AM -BiPAP qHS -symptoms resolved #ESRD on HD -consulted audit machine operator for dialysis -Continue PhosLo -Continue daily sodium zirconium -mild hyponatremia is related to ESRD #Hypertension -Continue Carvedilol 6.25mg po BID -Continue Hydralazine 25mg po TID #Diabetes - not on any medications for DM management currently. Last A1C=7.4 on 09/25/24 -treated with basal-bolus insulin while in hospital -Continue Gabapentin for neuropathy #Hypothyroidism - TSH last normal at 2.623 on 09/25/24 -Continue Synthroid #GERD -Continue Protonix 40mg po BID #Mental health -Continue Venlafaxine -Continue Zyprexa Weakness - exacerbated by respiratory failure and resolved Discussed plan of care with Dr. Stephenson, bedside RN, patient Notes For Next Care Provider Medication Changes From Visit none Admission HPI Per Admitting Provider Shirley Patrick is a 79yo female with history of ESRD on HD q T/R/S, HTN, DM, GERD, chronic hypoxic respiratory failure on 3L supplemental O2 at home presenting with shortness of breath and hypoxia at home. Patient reports feeling worsening shortness of breath today, hypoxic with saturations of 83%. She denies cough, fever, chills, chest pain, wheezing, worsening edema or orthopnea. Patient had a full dialysis treatment today. She is anuric. Compliant with dialysis. She reports they typically remove 3-4L of fluid with each treatment. She reports generalized weakness. No additional complaints at this time. In the ER patient was managed on HFNC at 30L/min, 41% FiO2 with improvement in symptoms. ER Course: Insulin 7u Albuterol neb Discharge Exam Last 24h vitals reviewed GEN: no acute distress, sitting in bed getting dialysis again today HEENT: pupils equal, sclerae anicteric, moist MM RESP: nonlabored on baseline level of O2 pnc, CTA bilaterally anteriorly, bibasilar crackles improved CV: reg no mrg neck veins not visible ABD: soft/nt/nd +BT : no marsh SKIN: warm and dry, no generalized rashes EXT: 2+ bilateral LE edema - this is her baseline NEURO: Ox person, place, and situation, no longer sleepy. Face symmetric, speech normal, moves 4 ext spontaneously and equally Discharge Plan Discharge Items Patient Disposition: Home - Self-Care Reason For Visit: SHORTNESS OF BREATH, HYPOXIA Discharge Diagnosis: Hypoxia secondary to acute pulmonary edema, acute on chronic HFpEF, ESRD on dialysis Condition on Discharge: Fair Activity: Resume your previous activity Non-emergency contact: Primary Care Provider and Controls Engineer Call non-emergency contact if: you have any medication questions and your symptoms worsen Follow-up/Referrals: Payam Stephenson MD [Physician] - Pro,Julito Grijalva MD [Primary Care Provider] - 12/25/24 1:30 pm Diet: Carb Consistent or DM2 and Dialysis Renal Fluids: 1800ml (7 cups) Addtl Attending Provider Instructions: You were treated for fluid overload which caused shortness of breath and low oxygen This resolved with extra dialysis Resume your usual dialysis schedule and medications It was a pleasure taking care of you in the hospital, Angela Garcia MD Pending Studies at Discharge: No Stand-Alone Forms: [employer], Smoking Cessation Medications and DC Order Prescriptions: Continued ondansetron 8 mg tablet,disintegrating 8 mg PO Q8H PRN (Reason: Nausea) Qty: 90 5RF lactulose 10 gram/15 mL solution 15 ml PO DAILY PRN (Reason: Constipation) Qty: 1350 3RF venlafaxine 75 mg capsule,extended release 24hr 75 mg PO HS Qty: 90 3RF ipratropium-albuterol 0.5 mg-3 mg(2.5 mg base)/3 mL solution for nebulization 3 ml inhalation Q8H Qty: 90 2RF Patient Comments: states that doesn't take consistantly pantoprazole 40 mg tablet,delayed release (DR/EC) 40 mg PO BID 90 Days Qty: 180 3RF gabapentin 300 mg capsule 300 mg PO 3XWK Qty: 36 1RF Rx Instructions: Wednesday, , wednesday after dialysis [facility]: ? Gabapentin 300 mg po QD-patient verbalized audit machine operator Dr. Stephenson at discharge told patient to take gabapentin 300 mg daily. calcium acetate 667 mg Tablet 1,334 mg PO TIDWMEAL Rx Instructions: TAKE 667MG WITH SNACKS, IF NEEDED. olanzapine 10 mg tablet 5 mg PO BID Rx Instructions: 1/2 tab orally twice a day carvedilol 6.25 mg tablet 6.25 mg PO BID cholecalciferol (vitamin D3) 50 mcg (2,000 unit) capsule 50 mcg PO QAM levothyroxine 100 mcg tablet 100 mcg PO QAM hydralazine 25 mg tablet 25 mg PO TID sodium zirconium cyclosilicate 10 gram powder in packet 10 g PO DAILY Qty: 30 5RF cyanocobalamin (vitamin B-12) 500 mcg Tablet 500 mcg PO QAM Qty: 30 0RF (DME) blood-glucose meter Misc See Rx Instructions .ROUTE .MEDSUPPLY Rx Instructions: As directed E11.9 (DME) OneTouch Verio test strips Strip See Rx Instructions .ROUTE .MEDSUPPLY Rx Instructions: test twice daily E11.9 (DME) lancets 33 gauge misc See Rx Instructions .ROUTE .MEDSUPPLY Rx Instructions: use to test twice daily (DME) Oxygen Home Liters Per Minute See Rx Instructions .ROUTE .MEDSUPPLY Rx Instructions: 3 liters continuously calcium carbonate 500 mg calcium (1,250 mg) Tablet 500 mg PO DAILY magnesium 250 mg Tablet 250 mg PO DAILY cranberry 500 mg Capsule 500 mg PO DAILY Rx Instructions: administer with meals ProRenal 8 mg iron-800 mcg-1,000 unit tablet 1 tab PO QDL Discharge Orders: Discharge Order (Routine); Ordered 12/07/24 Ordered By: Angela Garcia Admission Data Admit Date/Time: 12/05/24 22:33 Attending Provider: Angela Garcia Admit Provider: Maegan Ortega Primary Care Provider: Julito Burt Other Providers: Maegan Ortega; Payam Stephenson Other Interventions: Discharge Summary Assessment (RN) Last Done: 12/07/24 11:34 Hospital Stay Data Consultations 12/05/24 23:31 ED Decision to Admit Stat 12/06/24 11:11 Consult Nephrology Routine Pending Results Patient Have Any Pending Studies at Discharge: No Discharge Instructions Given to Patient (Per Discharging Provider) You were treated for fluid overload which caused shortness of breath and low oxygen This resolved with extra dialysis Resume your usual dialysis schedule and medications It was a pleasure taking care of you in the hospital, Angela Garcia MD Total Time Total Time Spent Total Time Spent (In Minutes): <30 Coding Level of Care Code 28824 IN/OBS DISCH 30 MIN/LESS Diagnoses Acute respiratory failure with hypoxia and hypercarbia J96.01; J96.02 End-stage renal disease on hemodialysis N18.6; Z99.2 Mixed restrictive and obstructive lung disease J43.9; J98.4 Type 2 diabetes mellitus with diabetic neuropathy E11.40
[2024-12-07] MEDS: EPOETIN ALFA 10,000 UNITS/ML VIAL IV ONE (11:26)
[2024-12-07 13:08] VITALS: TEMP 98.2
[2024-12-07 13:45] VITALS: BP 83/41
[2024-12-07 14:05] VITALS: PULSE 70; RESP 18; O2SAT 94
== END 2024-12-07 15:10 | disposition home or self-care (01) ==
LOC: EDINP 19:32 → ED 19:32 → SUATTDRO 22:33 → 2W 12-06 16:22